=== PATIENT | female | born 1995 | race Caucasian/White ===

== ENCOUNTER 2018-08-18 12:13 | Emergency (ER) | payer BC, OTHER ==
[2018-08-18] MEDS ORDERED: INSULIN -REGULAR HUMAN 50 UNIT/0.5 ML ML ONE (12:23)
[2018-08-18] MEDS ORDERED: NA CHLORIDE 0.9% 1,000 ML ONE ×2 (12:23→13:03)
--- NOTE | 2018-08-18 12:33 | EKG ---
Test Date: 2018-08-18 Test Time: 12:30:19 General Office Clerk: MARIO MEASUREMENT RESULTS: Intervals: Rate: 108 VA: 190 QRSD: 100 QT: 362 QTc: 485 [place]: P: 60 VA: 190 QRS: 63 T: 36 INTERPRETIVE STATEMENTS: Sinus tachycardia Otherwise normal ECG No previous ECG available for comparison Electronically Signed On 08-18-18 12:32:39 CDT by Jonathan Encinas
[2018-08-18 12:41] LABS: Arterial Blood Carboxyhemoglob 0.7 % (0-1.5); Blood Gas Oxyhemoglobin 95.3 % (94-97); Blood O2 Saturation 97.3 % (92-98.5)
[2018-08-18 12:54] LABS: Absolute Lymphocytes (CBC) 4.3 K/uL (0.7-4.9); Absolute Monocytes 3.8 K/uL (0.1-1.3); Basophils % 0.3 % (0-1.3); Eosinophils % 0.4 % (0-4.4); Hematocrit 55.3 % (36.0-45.0); Lymphocytes % 11.6 % (15.3-44.8); MCH 31.2 pg (27.0-35.0); MCV 106.6 fL (80-100); MPV 9.6 fL (7.6-11.3); Monocytes % 10.1 % (3.3-12.3); RBC Red Blood Cell Count 5.19 M/uL (3.86-4.86)
[2018-08-18 12:59] LABS: Barbiturates NEGATIVE (NEGATIVE); Benzodiazepines NEGATIVE (NEGATIVE); Cocaine NEGATIVE (NEGATIVE); METHAMPHETAM NEGATIVE (NEGATIVE); Methadone NEGATIVE (NEGATIVE); Opiates NEGATIVE (NEGATIVE); Phencyclidine NEGATIVE (NEGATIVE); THC Cannibis NEGATIVE (NEGATIVE)
[2018-08-18] MEDS ORDERED: INSULIN -REGULAR HUMAN 100 UNIT in NA CHLORIDE 0.9% 100 ML IV SCH (13:00)
[2018-08-18] MEDS ORDERED: D5W 1,000 ML with NA BICARB 8.4% 150 MEQ IV SCH ×2 (13:00)
[2018-08-18 13:01] LABS: Protime INR 1.05
[2018-08-18] MEDS ORDERED: SODIUM BICARB 50 MEQ/50ML VIAL ONE (13:03)
[2018-08-18 13:10] LABS: Urine RBC <5 /HPF (NONE SEEN)
[2018-08-18 13:11] LABS: Urine Bacteria <20 /HPF (<20); Urine Culture Reflex Order REFLEXED
[2018-08-18 13:21] LABS: ALT/SGPT 16 U/L (12-78); AST/SGOT 12 U/L (15-37); Albumin 3.7 g/dL (3.4-5.0); Alkaline Phosphatase 201 U/L (45-117); BUN Blood Urea Nitrogen 18 mg/dL (7-18); Bilirubin Direct 0.1 mg/dL (0-0.2); Bilirubin Total 0.4 mg/dL (0.2-1.0); Potassium 3.5 mmol/L (3.5-5.1); Protein, Total 7.3 g/dL (6.4-8.2); Sodium Level 139 mmol/L (136-145)
[2018-08-18 13:22] LABS: Bicarbonate 4 mmol/L (21-32); Glucose Level 1200 mg/dL (74-106)
[2018-08-18 13:41] LABS: Blood Morphology Comment NOT SEEN (NOT SEEN); Platelet Estimate INCR
[2018-08-18 14:02] LABS: Urine Blood 1+ (NEG); Urine Glucose 2+ (NEG); Urine Protein 2+ (NEG)
--- NOTE | 2018-08-18 14:21 | RAD REPORT ---
EXAM DESCRIPTION: Estephania Single View08/18/2018 1:09 pm CLINICAL HISTORY: Chest pain COMPARISON: none FINDINGS: The lungs appear clear of acute infiltrate. The heart is normal size IMPRESSION: No acute abnormalities displayed
--- NOTE | 2018-08-18 14:23 | RAD REPORT ---
EXAM DESCRIPTION: CT - Head Brain Wo Cont - 08/18/2018 2:08 pm CLINICAL HISTORY: Alteration of awareness/confusion COMPARISON: None. TECHNIQUE: Computed axial tomography of the head was obtained. IV contrast was not requested. All CT scans are performed using dose optimization technique as appropriate and may include automated exposure control or mA/KV adjustment according to patient size. FINDINGS: Curvilinear area of increased density is present within the left temporal lobe suspicious for subarachnoid blood. The ventricles are normal in caliber. No extra-axial fluid collection is noted. Fluid within the sinuses/ mastoids is not seen. IMPRESSION: Small subarachnoid bleed with the left temporal lobe is suspected. Exam was discussed wi Dr. Narayanan in emergency room 2:10 p.m. 08/18/2018 When the patient's condition permits further imaging with MRI is recommended
--- NOTE | 2018-08-18 14:57 | ER ---
Nurse's Notes [facility] Name: Rosalie Parekh Age: 23 yrs Sex: Female : 1995 Arrival Date: 08/18/2018 Time: 12:15 Bed 3 Private MD: Diagnosis: Other specified diabetes mellitus with ketoacidosis without coma;Acute kidney injury;Dehydration;Altered mental status, unspecified Presentation: 08/18 12:15 Presenting complaint: EMS states: "boyfriend reported that she hasn't been eating for aa5 the last few days and today she fell down to the ground and became unresponsive and that is when he called 911". EMS reports FSBG >500. 12:15 Transition of care: patient was not received from another setting of care. Onset of aa5 symptoms was August 18, 2018. Risk Assessment: Do you want to hurt yourself or someone else? Unable to obtain. Care prior to arrival: Medication(s) given: Normal saline infusion, 200cc IV initiated. 20 GA, in the left antecubital area. 12:15 Method Of Arrival: EMS: [facility] aa5 12:15 Acuity: TANYA 2 aa5 12:30 Initial Sepsis Screen: Does the patient meet any 2 criteria? RR > 20 per min. Temp aa5 <36.0*C (96.8*F)) or > 38.3*C (100.9*F). Systolic BP < 90 mmHg. Altered Mental Status. HR > 90 bpm. Yes Does the patient have a suspected source of infection? No. Patient's initial sepsis screen is negative. LEAD TEACHER: 12:15 LMP- unknown aa5 Historical: - Allergies: 12:15 No Known Allergies; aa5 - PMHx: 12:15 None; aa5 - PSHx: 12:15 None; aa5 - Immunization history:: Adult Immunizations unknown. - Social history:: Smoking status: unknown. - Ebola Screening: : Unable to complete screening because. - Unable to obtain history due to: altered mental status. Screenin:20 Abuse screen: Unable to assess. Nutritional screening: unable to assess. Tuberculosis aa5 screening: unable to assess. Fall Risk Fall in past 12 months (25 points). IV access (20 points). Mental Status- Overestimates/Forgets Limitations (15 pts.). Total Perry Fall Scale indicates High Risk Score (45 or more points). Fall prevention measures have been instituted. Side Rails Up X 2 Placed Close to Nursing Station. Assessment: 12:15 General: Appears uncomfortable, Behavior is unresponsive. Pain: Unable to use pain aa5 scale. Patient is unresponsive. Neuro: Oriented to none Pt non-verbal at this time. Pt unable to follow commands. . Pupils are equal, dilated, and reactive to light. . Cardiovascular: Heart tones S1 S2 present Rhythm is regular. Respiratory: Airway is patent Respiratory pattern is Kussmaul Breath sounds are clear bilaterally. GI: Abdomen is round non-distended, Bowel sounds present X 4 quads. Abd is soft and non tender X 4 quads. : No signs and/or symptoms were reported regarding the genitourinary system. EENT: No signs and/or symptoms were reported regarding the EENT system. Derm: Skin is pink, warm \\T\\ dry. Musculoskeletal: Pt noted to be moving all four extremities. 12:20 Reassessment: Non-rebreather mask placed without oxygen as brown-bag effect. . aa5 12:30 Reassessment: Soft restraints applied to all four extremities per MD VO. 3+ radial aa5 pulses before and after restraints were placed, capillary refill <3 seconds before and after application, pt able to move fingers before and after application. Restraints were placed after noticing pt putting her right FA into mouth and attempting to bite it, pt was also rolling in bed attempting to get out of bed. . 12:32 Reassessment: Warm blankets and bear hugger applied per MD VO. Fluids infusing through aa5 warmer per MD as well. . 12:50 Reassessment: Pt non-verbal, not following commands, Kussmaul respirations noted. Pt aa5 attempting to remove blankets, attempting to get out of bed at this time. Bed remains in low position, side rails x 2. . 13:50 Reassessment: Pt taken to CT via stretcher, with monitor, accompanied by me,information technology internship, aa5 and utility technician. . 13:58 Reassessment: Pt back from CT scan.. aa5 14:01 Reassessment: Pt taken back to CT scan via stretcher, with monitor, accompanied by me, aa5 information technology internship, and utility technician. . 14:10 Reassessment: Pt back from CT scan. Pt attempting to sit up and attempting to pull on aa5 cords (monitor, IV tubing, Fan, etc.). Pt remains non-verbal at this time. Pt not able to follow commands. Kussmaul respirations, skin is pink/warm/dry. . 14:40 Reassessment: orthotics prosthetics technician at bedside drawing repeat glucose level . aa5 14:40 Reassessment: Pt resting in bed with eyes closed and awakens intermittently and aa5 attempts to pull cords and attempts to sit up. Pt's step-mother at bedside at this time. Skin is pink/warm/dry, Kussmaul respirations. Pt remains non-verbal and not following commands. Pt able to move all four extremities. . 15:30 Reassessment: No changes from previously documented assessment. Pt's father and aa5 step-mother at beside. Awaiting life flight for transfer. . 15:40 Reassessment: Life flight at bedside connecting pt to their monitors. . aa5 Vital Signs: 12:15 BP 88 / 60; Pulse 110; Resp 38 S; Pulse Ox 100% on R/A; aa5 12:30 BP 88 / 64; Pulse 108; Resp 36 S; Temp 89.5(C); Pulse Ox 100% on R/A; aa5 12:46 BP 87 / 52; Pulse 104; Resp 36; Temp 89.7(C); Pulse Ox 99% ; sv 13:00 BP 112 / 64; Pulse 103; Resp 33; Temp 89.6(C); Pulse Ox 99% ; sv 13:15 BP 114 / 64; Pulse 113; Resp 39 S; Temp 89.6(C); Pulse Ox 100% on R/A; aa5 13:20 BP 109 / 61; Pulse 108; Resp 34; Temp 89.9(C); Pulse Ox 99% ; sv 13:40 BP 121 / 89; Pulse 113; Resp 34 S; Temp 90.6(C); Pulse Ox 100% on R/A; aa5 14:00 BP 122 / 72; Pulse 119; Resp 34 S; Temp 91.1(C); Pulse Ox 100% on R/A; aa5 14:15 BP 105 / 78; Pulse 118; Resp 34; Temp 91.5(C); Pulse Ox 100% on R/A; aa5 14:30 BP 112 / 76; Pulse 119; Resp 30 S; Temp 92.0(C); Pulse Ox 100% on R/A; aa5 15:00 BP 111 / 73; Pulse 129; Resp 27; Temp 93.3; Pulse Ox 100% ; sv 15:10 BP 104 / 60; Pulse 123; Resp 32; Temp 93.6; Pulse Ox 99% ; sv 15:30 BP 102 / 62; Pulse 129; Resp 30 S; Temp 93.5(C); Pulse Ox 100% on R/A; aa5 Ruben Coma Score: 12:15 Eye Response: to voice(3). Verbal Response: none(1). Motor Response: withdraws from aa5 pain(4). Total: 8. 14:40 Eye Response: to voice(3). Verbal Response: none(1). Motor Response: withdraws from aa5 pain(4). Total: 8. ED Course: 12:15 Patient arrived in ED. rn 12:15 Isai Narayanan MD is Attending Physician. rn 12:20 Initial lab(s) drawn, by me, sent to lab. aa5 12:20 Patient has correct armband on for positive identification. Placed in gown. Bed in low aa5 position. Side rails up X2. bleacher operator on. Pulse ox on. NIBP on. 12:20 Arm band placed on. aa5 12:30 Fan cath inserted, using sterile technique, 16 Fr., by me, balloon inflated, to aa5 gravity drainage, Patient tolerated well. 12:37 EKG done, by diesel service technician. reviewed by Isai Narayanan MD. Initial lab(s) drawn, by ED staff, jb1 sent to lab. Inserted saline lock: 20 gauge in right antecubital area, using aseptic technique. Blood collected. 12:38 Urine collected: Fan catheter specimen, cloudy, rubina colored. jb1 13:00 Inserted saline lock: 22 gauge in right hand, using aseptic technique. IV inserted by aa5 Darrel Holliday RN. 13:00 No provider procedures requiring assistance completed. aa5 13:07 X-ray completed. Portable x-ray completed in exam room. Patient tolerated procedure ml well. 13:10 XRAY Chest (1 view) In Process Unspecified. EDMS 13:12 Notified ED physician of a critical lab result(s). lactate 5.1. hb 13:20 Notified ED physician of a critical lab result(s). SERUM GLUCOSE 1200, CO2 4. hb 13:24 Zenaida Scott, RN is Primary Nurse. aa5 13:41 CT Head Brain wo Cont In Process Unspecified. EDMS 13:46 Patient moved back from CT. sv 13:51 Notified ED physician of a critical lab result(s). SERUM GLUCOSE 1061. hb 14:52 Triage completed. aa5 15:40 One-on-one care X 205 minutes. aa5 15:53 Patient transferred, IV remains in place. aa5 Restraints: 12:30 Violent/Self Destructive Restraint: Initiated August 18, 2018 at 12:30 Monitoring: aa5 Cognition: unable to follow commands, Circulation: Within defined parameters (based on Cardiovascular assessment). Skin integrity: Within defined parameters (based on Integumentary assessment) No injuries due to Restraints noted. 12:45 Violent/Self Destructive Restraint: Monitoring: Cognition: unable to follow commands, aa5 Circulation: Within defined parameters (based on Cardiovascular assessment). Skin integrity: Within defined parameters (based on Integumentary assessment) No injuries due to Restraints noted. 13:00 Violent/Self Destructive Restraint: Monitoring: Cognition: unable to follow commands, aa5 Circulation: Within defined parameters (based on Cardiovascular assessment). Skin integrity: Within defined parameters (based on Integumentary assessment) No injuries due to Restraints noted. 13:15 Violent/Self Destructive Restraint: Monitoring: Cognition: unable to follow commands, aa5 Circulation: Within defined parameters (based on Cardiovascular assessment). Skin integrity: Within defined parameters (based on Integumentary assessment) No injuries due to Restraints noted. 13:30 Violent/Self Destructive Restraint: Monitoring: Cognition: unable to follow commands, aa5 Circulation: Within defined parameters (based on Cardiovascular assessment). Skin integrity: Within defined parameters (based on Integumentary assessment) No injuries due to Restraints noted. 13:45 Violent/Self Destructive Restraint: Monitoring: Cognition: unable to follow commands, aa5 Circulation: Within defined parameters (based on Cardiovascular assessment). Skin integrity: Within defined parameters (based on Integumentary assessment) No injuries due to Restraints noted. 14:00 Violent/Self Destructive Restraint: Monitoring: Cognition: unable to follow commands, aa5 Circulation: Within defined parameters (based on Cardiovascular assessment). Skin integrity: Within defined parameters (based on Integumentary assessment) No injuries due to Restraints noted. 14:15 Violent/Self Destructive Restraint: Monitoring: Cognition: unable to follow commands, aa5 Circulation: Within defined parameters (based on Cardiovascular assessment). Skin integrity: Within defined parameters (based on Integumentary assessment) No injuries due to Restraints noted. 14:30 Violent/Self Destructive Restraint: Monitoring: Cognition: unable to follow commands, aa5 Circulation: Within defined parameters (based on Cardiovascular assessment). Skin integrity: Within defined parameters (based on Integumentary assessment) No injuries due to Restraints noted. 14:45 Violent/Self Destructive Restraint: Monitoring: Cognition: unable to follow commands, aa5 Circulation: Within defined parameters (based on Cardiovascular assessment). Skin integrity: Within defined parameters (based on Integumentary assessment) No injuries due to Restraints noted. 15:00 Violent/Self Destructive Restraint: Monitoring: Cognition: unable to follow commands, aa5 Circulation: Within defined parameters (based on Cardiovascular assessment). Skin integrity: Within defined parameters (based on Integumentary assessment) No injuries due to Restraints noted. 15:15 Violent/Self Destructive Restraint: Monitoring: Cognition: unable to follow commands, aa5 Circulation: Within defined parameters (based on Cardiovascular assessment). Skin integrity: Within defined parameters (based on Integumentary assessment) No injuries due to Restraints noted. 15:30 Violent/Self Destructive Restraint: Monitoring: Cognition: unable to follow commands, aa5 Circulation: Within defined parameters (based on Cardiovascular assessment). Skin integrity: Within defined parameters (based on Integumentary assessment) No injuries due to Restraints noted. 15:40 Violent/Self Destructive Restraint: Monitoring: Cognition: unable to follow commands, aa5 Circulation: Within defined parameters (based on Cardiovascular assessment). Skin integrity: Within defined parameters (based on Integumentary assessment) No injuries due to Restraints noted. Administered Medications: 12:20 Drug: NS 0.9% 1000 ml Route: IV; Rate: 1000 ml; Site: left antecubital; aa 13:00 Follow up: IV Status: Completed infusion aa 12:20 Drug: Insulin Regular Human 10 units {Co-Signature: la1 (Darrel Holliday RN).} Route: IVP; aa5 Site: left antecubital; 12:20 Drug: Insulin Regular Human 10 units {Co-Signature: la1 (Darrel Holliday RN).} Route: Sub-Q; aa5 Site: right lower abdomen; 12:20 Drug: NS 0.9% 1000 ml Route: IV; Rate: 1000 ml; Site: left antecubital; aa5 13:00 Follow up: IV Status: Completed infusion aa5 12:56 Drug: Sodium Bicarbonate 1 amp Route: IVP; Site: left antecubital; aa5 13:10 Follow up: Response: No adverse reaction aa5 13:00 Drug: D5W 1000 ml, Sodium Bicarbonate 150 mEq Route: IV; Rate: 150 ml/hr; Site: left aa5 antecubital; 15:40 Follow up: IV Status: Infusion continued upon transfer aa5 13:00 Drug: NS 0.9% 1000 ml Route: IV; Rate: 1000 ml; Site: right antecubital; aa5 14:00 Follow up: IV Status: Completed infusion aa5 13:00 Drug: Insulin Drip - (Insulin Regular Human 100 units, NS 0.9% 100 ml) {Co-Signature: aa5 reinaldo (Darrel Holliday RN).} Route: IV; Rate: calculated rate; Site: right antecubital; 13:00 Follow up: Started at 7 units/hr per MD [id number] aa5 15:40 Follow up: IV Status: Infusion continued upon transfer aa5 Point of Care Testin:00 >500mg/dl aa5 Ranges: Intake: Output: 15:21 Urine: 1500ml (Fan); Total: 1500ml. aa5 15:40 Urine: 250ml (Fan); Total: 1750ml. aa5 Outcome: 14:56 ER care complete, transfer ordered by . rn 15:40 Transferred by helicopter to [facility], Transfer form completed. aa5 X-rays sent w/ patient. Note: Report given to jed Brown RN at [facility]. 15:40 Condition: stable aa5 15:40 Discharge instructions given to Pt's father Instructed on the need for transfer, Demonstrated understanding of instructions. 15:53 Patient left the ED. aa5 Signatures: Dispatcher [employer] EDMS Luca Nicole Stephanie, RN RN sv Lopez, Melissa ml Nieto, Roman, MD MD rn Calderon, Audri RN RN aa5 Miya, Darrel RN RN la1 Maribel Ni RN RN Darrel [email or web address] Corrections: (The following items were deleted from the chart) 14:53 13:16 Inserted saline lock: 22 gauge in right hand, using aseptic technique. la1 aa5 15:20 15:10 BP 104 / 60; Pulse 123bpm; Resp 32bpm; Pulse Ox 99%; Temp 96.6F; sv sv 16:25 12:50 Reassessment: Pt non-verbal, not following commands, Kussmaul respirations noted. aa5 Pt attempting to remove blankets, attempting to get out of bed at this time. Bed remains in low position, side rails x 2, call monique within reach. . aa5 16:36 12:30 Reassessment: Soft restraints applied to all four extremities per VO. Pt noted aa5 to be putting her right FA into mouth and attempting to bite it, pt rolling in bed. . aa5
--- NOTE | 2018-08-18 14:57 | EDPHYS ---
Physician Documentation [facility] Name: Rosalie Hermann Age: 23 yrs Sex: Female : 1995 Arrival Date: 08/18/2018 Time: 12:15 Bed 3 Private MD: ED Physician Isai Narayanan HPI: 08/18 12:21 This 23 yrs old Female presents to ER via Unassigned with complaints of AMS, rn high blood sugar. 12:21 The patient presents with decreased responsiveness. Onset: The symptoms/episode rn began/occurred at an unknown time. Possible causes: unknown. Associated signs and symptoms: Pertinent positives: combativeness, confusion. It is unknown whether or not the patient has had similar symptoms in the past. Per EMS, called out for decreased responsiveness and altered mental status, unknown onset, blood sugar read "high" for EMS, not sure if known diabetic, also bystander "not sure" if used any drugs. NO known trauma. . MORTAR MAN: 12:15 LMP- unknown aa5 Historical: - Allergies: 12:15 No Known Allergies; aa5 - PMHx: 12:15 None; aa5 - PSHx: 12:15 None; aa5 - Immunization history:: Adult Immunizations unknown. - Social history:: Smoking status: unknown. - Ebola Screening: : Unable to complete screening because. - Unable to obtain history due to: altered mental status. ROS: 12:21 Unable to obtain ROS due to altered mental status. rn Exam: 12:21 Constitutional: Thin female, minimally responsive, tachypneic, responds to painful rn stimuli flopping around bed. Head/Face: Normocephalic, atraumatic. Eyes: pupils 6mm, reactive, no nsytagmus ENT: dry MM, no stridor Cardiovascular: tachycardic, regular, no murmur Respiratory: mild tachypnea, clear bilaterally Abdomen/GI: soft, non-tender Skin: Warm, dry, no evidence of cellulitis. MS/ Extremity: Pulses equal, no cyanosis. Neurovascular intact. Full, normal range of motion. Equal circumference. Neuro: Somnolent, responds to painful stimuli and localizes pain, moves all 4 extremities. Vital Signs: 12:15 BP 88 / 60; Pulse 110; Resp 38 S; Pulse Ox 100% on R/A; aa5 12:30 BP 88 / 64; Pulse 108; Resp 36 S; Temp 89.5(C); Pulse Ox 100% on R/A; aa5 12:46 BP 87 / 52; Pulse 104; Resp 36; Temp 89.7(C); Pulse Ox 99% ; sv 13:00 BP 112 / 64; Pulse 103; Resp 33; Temp 89.6(C); Pulse Ox 99% ; sv 13:15 BP 114 / 64; Pulse 113; Resp 39 S; Temp 89.6(C); Pulse Ox 100% on R/A; aa5 13:20 BP 109 / 61; Pulse 108; Resp 34; Temp 89.9(C); Pulse Ox 99% ; sv 13:40 BP 121 / 89; Pulse 113; Resp 34 S; Temp 90.6(C); Pulse Ox 100% on R/A; aa5 14:00 BP 122 / 72; Pulse 119; Resp 34 S; Temp 91.1(C); Pulse Ox 100% on R/A; aa5 14:15 BP 105 / 78; Pulse 118; Resp 34; Temp 91.5(C); Pulse Ox 100% on R/A; aa5 14:30 BP 112 / 76; Pulse 119; Resp 30 S; Temp 92.0(C); Pulse Ox 100% on R/A; aa5 15:00 BP 111 / 73; Pulse 129; Resp 27; Temp 93.3; Pulse Ox 100% ; sv 15:10 BP 104 / 60; Pulse 123; Resp 32; Temp 93.6; Pulse Ox 99% ; sv 15:30 BP 102 / 62; Pulse 129; Resp 30 S; Temp 93.5(C); Pulse Ox 100% on R/A; aa5 Ruben Coma Score: 12:15 Eye Response: to voice(3). Verbal Response: none(1). Motor Response: withdraws from aa5 pain(4). Total: 8. 14:40 Eye Response: to voice(3). Verbal Response: none(1). Motor Response: withdraws from aa5 pain(4). Total: 8. MDM: 12:15 Patient medically screened. rn 13:07 ED course: Insulin drip started for suspected DKA, bicarb drip, fluids now on third rn liter, updated father.. 13:12 ED course: Significant other and family here, report 2 days of rn nausea/vomiting/diarrhea, not feeling well, and AMS began this morning. 13:52 ED course: Lp consent signed. Notified by Dr. Dorado of questionable bleed on CT head rn vs artifact, requests re-scan to be sure. . 14:14 ED course: Radiology confirms small SAH temporal region, spoke with family, will need marketing pr intern to [facility] for SAH and no ICU beds here. . 14:52 Differential Diagnosis: volume depletion, DKA, head injury, aneurysm, drug overdose. rn Data reviewed: vital signs, nurses notes, lab test result(s), EKG, radiologic studies, CT scan, plain films, and as a result, I will admit patient. Counseling: I had a detailed discussion with the patient and/or guardian regarding: the historical points, exam findings, and any diagnostic results supporting the discharge/admit diagnosis, lab results, radiology results, the need for further work-up and treatment in the hospital, the need to transfer to another facility. Response to treatment: the patient's symptoms have mildly improved after treatment, and as a result, I will admit patient. Admission orders: after a detailed discussion of the patient's condition and case, the admit orders are written by me. ED course: Pt with mild improvement, airway intact and protected, now lifts head and follows more commands. Accepted for transfer to [facility] ICU by Dr. Chavarria, elevated WBC possibly related to DKA/head bleed. Neg urine and cxr. LP initially was going to be performed to rule out meningitis but when SAH found with unclear etiology, decision made to defer LP given source of AMS can be attributed to both SAH and DKA. . 08/18 12:17 Order name: CBC with Diff; Complete Time: 13:53 rn 08/18 12:17 Order name: Basic Metabolic Panel; Complete Time: 13:53 rn 08/18 12:17 Order name: Urine Culture rn 08/18 12:17 Order name: Urine Drug Screen; Complete Time: 13:06 rn 08/18 12:17 Order name: Urine Microscopic Only; Complete Time: 13:23 rn 08/18 12:17 Order name: ABG; Complete Time: 12:54 rn 08/18 12:17 Order name: Ketone, Serum; Complete Time: 13:53 rn 08/18 12:17 Order name: Acetaminophen; Complete Time: 13:53 rn 08/18 12:17 Order name: ETOH Level; Complete Time: 13:53 rn 08/18 12:17 Order name: Hepatic Function; Complete Time: 13:53 rn 08/18 12:17 Order name: PT-INR; Complete Time: 13:06 rn 08/18 12:17 Order name: Ptt, Activated; Complete Time: 13:06 rn 08/18 12:17 Order name: Salicylate; Complete Time: 13:23 rn 08/18 12:18 Order name: Blood Culture Adult (2) rn 08/18 12:17 Order name: XRAY Chest (1 view); Complete Time: 14:30 rn 08/18 12:17 Order name: CT Head Brain wo Cont; Complete Time: 14:30 rn 08/18 12:18 Order name: Lactate; Complete Time: 13:23 rn 08/18 13:06 Order name: Urine Dipstick--Ancillary (enter results); Complete Time: 14:13 hb 08/18 13:06 Order name: Urine --Ancillary (enter results); Complete Time: 14:13 hb 08/18 13:06 Order name: Glucose; Complete Time: 13:53 hb 08/18 13:09 Order name: Flu; Complete Time: 14:47 rn 08/18 13:10 Order name: Manual Differential; Complete Time: 13:53 EDMS 08/18 14:17 Order name: glucometer results - FOR PT WITH NO ID; Complete Time: 15:00 aa5 08/18 14:18 Order name: Glucose; Complete Time: 16:57 aa5 08/18 12:17 Order name: IV Start; Complete Time: 12:38 rn 08/18 12:17 Order name: Urine Test (obtain specimen); Complete Time: 12:38 rn 08/18 12:17 Order name: Urine Dipstick-Ancillary (obtain specimen); Complete Time: 12:38 rn 08/18 12:17 Order name: Glucose Level; Complete Time: 12:38 rn 08/18 12:17 Order name: EKG; Complete Time: 12:19 rn 08/18 12:17 Order name: EKG - Nurse/Tech; Complete Time: 12:38 rn 08/18 12:17 Order name: Labs collected and sent; Complete Time: 12:38 rn 08/18 14:46 Order name: Fan: VO received at 1217 ; Complete Time: 14:47 aa5 08/18 15:08 Order name: Restrain Patient: VO received at 1230. Apply soft restraints to all four aa5 extremities.; Complete Time: 15:08 Administered Medications: 12:20 Drug: NS 0.9% 1000 ml Route: IV; Rate: 1000 ml; Site: left antecubital; aa5 13:00 Follow up: IV Status: Completed infusion aa5 12:20 Drug: Insulin Regular Human 10 units {Co-Signature: reinaldo (Darrel Holliday RN).} Route: IVP; aa5 Site: left antecubital; 12:20 Drug: Insulin Regular Human 10 units {Co-Signature: reinaldo (Darrel Holliday RN).} Route: Sub-Q; aa5 Site: right lower abdomen; 12:20 Drug: NS 0.9% 1000 ml Route: IV; Rate: 1000 ml; Site: left antecubital; aa5 13:00 Follow up: IV Status: Completed infusion aa5 12:56 Drug: Sodium Bicarbonate 1 amp Route: IVP; Site: left antecubital; aa5 13:10 Follow up: Response: No adverse reaction aa5 13:00 Drug: D5W 1000 ml, Sodium Bicarbonate 150 mEq Route: IV; Rate: 150 ml/hr; Site: left aa5 antecubital; 15:40 Follow up: IV Status: Infusion continued upon transfer aa5 13:00 Drug: NS 0.9% 1000 ml Route: IV; Rate: 1000 ml; Site: right antecubital; aa5 14:00 Follow up: IV Status: Completed infusion aa5 13:00 Drug: Insulin Drip - (Insulin Regular Human 100 units, NS 0.9% 100 ml) {Co-Signature: gorge najera (Darrel Holliday RN).} Route: IV; Rate: calculated rate; Site: right antecubital; 13:00 Follow up: Started at 7 units/hr per MD VO aa5 15:40 Follow up: IV Status: Infusion continued upon transfer aa5 Point of Care Testin:00 >500mg/dl aa Ranges: Critical Glucose Levels:Adult <50 mg/dl or >400 mg/dl <40 mg/dl or >180 mg/dl Disposition: 14:52 Critical Care:. rn Disposition: 08/18/18 14:[address] [facility]. Diagnosis are Other specified diabetes mellitus with ketoacidosis without coma, Acute kidney injury, Dehydration, Altered mental status, unspecified. - Reason for transfer: Higher level of care. - Accepting physician is Dr. Chavarria. - Condition is Serious. - Problem is new. - Symptoms have improved. Critical care time excluding procedures: 14:52 Critical care time: Bedside Care: 50 minutes, Consultation: 5 minutes, Family rn Intervention: 10 minutes. Total time: 65 minutes Signatures: Dispatcher [employer] EDMS Isai Narayanan MD MD rn Calderon, Audri, RN RN aa5 Darrel Holliday RN la1 Corrections: (The following items were deleted from the chart) 14:46 14:45 Fan ordered. aa5 aa5 15:53 14:56 08/18/2018 14:[address] [facility]. Diagnosis is aa5 Other specified diabetes mellitus with ketoacidosis without coma; Acute kidney injury; Dehydration; Altered mental status, unspecified. Reason for transfer: Higher level of care. Accepting physician is Dr. Chavarria. Condition is Serious. Problem is new. Symptoms have improved. rn
== END 2018-08-18 15:53 | disposition short-term general hospital (02) ==
LOC: ER 12:13
DX: E13.10 Other specified diabetes mellitus with ketoacidosis without coma (principal); E86.0 Dehydration; N17.9 Acute kidney failure, unspecified
CPT/HCPCS: 36415; 51702; 70450; 71045; 80048; 80076; 80307; 80320; 80329; 81003; 81015; 81025; 82010; 82805; 82947; 82962; 83605; 85025; 85610; 85730; 87040; 87086; 87088; 87205; 87804; 93005; 96372; 99285; J7030

== ENCOUNTER 2019-10-07 15:37 | Emergency (ER) | payer OTHER ==
--- OUTSIDE RECORDS SUMMARY | 2019-10-07 15:42 | XMS REPORT | Summary of Care ---
:1995 Author Organization [facility] Address [address] [place] [address] Care Team Providers Name Role Phone Pcp, Patient Does Not Have A Primary Care Provider Reason for Visit Reason Comments Assessment Encounter Details Date Type Department Care Team Description 06/08/2019 Telephone [facility] Endocrinology- Constanza Abraham MD Assessment [address] Professional Office [address] Cade [phone] [address] [place] [address] Allergies No Known Allergiesdocumented as of this encounter (statuses as of 06/09/2019) Medications Medication Sig Dispensed Refills Start Date End Date Status insulin lispro INJECT up to 10 9 mL 3 09/15/2018 Active (HUMALOG KWIKPEN UNITS SUBCUTANEOUSLY INSULIN) 100 unit/mL THREE TIMES A DAY pen WITH MEALS per injectorIndications: sliding scale Uncontrolled type 1 diabetes mellitus with hyperglycemia Insulin Glargine inject 24 Units 7.2 mL 3 09/15/2018 Active (LANTUS SOLOSTAR under the skin every U-100 INSULIN) 100 morning. unit/mL (3 mL) injectionIndications : Uncontrolled type 1 diabetes mellitus with hyperglycemia Insulin [place], Use as directed four 400 Each 09/15/2018 Active Disposable, (BD times a day ULTRA-FINE MICRO PEN NEEDLE) 32 gauge x 1/4" NdleIndications: Uncontrolled type 1 diabetes mellitus with hyperglycemia ONE TOUCH DELICA 33 Use as directed 300 Each 1 01/13/2019 Active gauge TIDAC E10.65 MiscIndications: Uncontrolled type 1 diabetes mellitus with hyperglycemia ONETOUCH VERIO IQ Use as directed TID 1 Kit 0 01/13/2019 Active METER E10.65 KitIndications: Uncontrolled type 1 diabetes mellitus with hyperglycemia ONETOUCH VERIO Use as directed TID 300 Strip 1 01/13/2019 Active stripIndications: E10.65 Uncontrolled type 1 diabetes mellitus with hyperglycemia documented as of this encounter (statuses as of 06/09/2019) Active Problems Not on filedocumented as of this encounter (statuses as of 06/09/2019) Social History Tobacco Use Types Packs/Day Years Used Date Never Smoker Smokeless Tobacco: Never Used Alcohol Use Drinks/Week oz/Week Comments No Sex Assigned at Date Recorded Not on file Job Start Date Occupation Industry Not on file Not on file Not on file Travel History Travel Start Travel End No recent travel history available. documented as of this encounter Last Filed Vital Signs Not on filedocumented in this encounter Plan of Treatment Date Type Specialty Care Team Description 10/13/2019 Office Visit Endocrinology Diabetes & Constanza Abraham MD [facility] [address] [place] [address] [phone] Health Maintenance Due Date Last Done Comments VARICELLA VACCINES (1 of 2 - 13+ 2007 2-dose series) HPV VACCINES (1 - Female 3-dose 2009 series) CHLAMYDIA SCREENING 2010 DTaP,Tdap,and Td Vaccines (1 - 2013 Tdap) PAP SMEAR 2015 INFLUENZA VACCINE 07/04/2019 PNEUMOCOCCAL 0-64 YEARS COMBINED Aged Out No longer eligible based on SERIES patient's age to complete this topic documented as of this encounter Results Not on filedocumented in this encounter Insurance Payer Benefit Plan / Group Subscriber ID Effective Dates Phone Address Type AETNA AETNA HMO [id number] 2018-Present HMO documented as of this encounter
--- OUTSIDE RECORDS SUMMARY | 2019-10-07 15:42 | XMS REPORT | Summary of Care ---
:1995 Author Organization [facility] Address [address] [place] [address] Care Team Providers Name Role Phone Pcp, Patient Does Not Have A Primary Care Provider Reason for Visit Reason Comments Erroneous encounter-disregard Encounter Details Date Type Department Care Team Description 06/08/[address] [facility] Constanza Abraham MD Uncontrolled type 1 Endocrinology- [address] [facility] diabetes mellitus with [facility] hyperglycemia (Primary Professional Office [place], [place] Dx) Building [address] [place] [address] [address] [place] (Fax) [address] Allergies No Known Allergiesdocumented as of this encounter (statuses as of 06/08/2019) Medications Medication Sig Dispensed Refills Start Date [...] type 1 diabetes mellitus with hyperglycemia Insulin [place], Use as directed four 400 Each 09/15/2018 [...] as of this encounter (statuses as of 06/08/2019) Active Problems Not on filedocumented as of this encounter (statuses as of 06/08/2019) Social History Tobacco Use Types Packs/Day Years [...] Signs Not on filedocumented in this encounter Progress Notes Constanza Abraham MD - 06/08/2019 1:30 PM CDTPatient was not seen documented in this encounter Plan of Treatment Date Type Specialty Care Team Description 10/13/2019 Office Visit Endocrinology Diabetes & Constanza Abraham MD Metabolism [facility] [place], [place] [id number] Health Maintenance Due Date Last Done Comments [...] this topic documented as of this encounter Procedures Procedure Name Priority Date/Time Associated Diagnosis Comments POCT HEMOGLOBIN A1C Routine 06/08/2019 Uncontrolled type 1 Results for this TEST diabetes mellitus with procedure are in the hyperglycemia results section. documented in this encounter Results POCT HEMOGLOBIN A1C TEST (06/08/2019) POCT HBA1C >14 4 - 6 % Specimen Blood - CAPILLARY documented in this encounter Visit Diagnoses Diagnosis Uncontrolled type 1 diabetes mellitus with hyperglycemia - Primary documented in this encounter documented as of this encounter
--- OUTSIDE RECORDS SUMMARY | 2019-10-07 15:42 | XMS REPORT | Summary of Care ---
:1995 Author Organization [facility] Address [address] [place] [address] Care Team Providers Name Role Phone Pcp, Patient Does Not Have A Primary Care Provider Reason for Visit Reason Comments Refill Request Encounter Details Date Type Department Care Team Description 06/25/2019 Telephone [facility] Endocrinology- Constanza Abraham MD Refill Request [address] Professional Office [address] [phone] [place] [address] [address] [place] [address] Allergies No Known Allergiesdocumented as of this encounter (statuses as of 06/27/2019) Medications Medication Sig Dispensed Refills Start End Date Status Date insulin lispro INJECT up to 10 9 mL 3 Active (HUMALOG KWIKPEN UNITS 8 INSULIN) 100 SUBCUTANEOUSLY unit/mL pen THREE TIMES A DAY injectorIndication WITH MEALS per s: Uncontrolled sliding scale type 1 diabetes mellitus with hyperglycemia Insulin [place], Use as directed 400 Each 1 Active Disposable, (BD four times a day 8 ULTRA-FINE MICRO PEN NEEDLE) 32 gauge x 1/4" NdleIndications: Uncontrolled type 1 diabetes mellitus with hyperglycemia ONE TOUCH DELICA Use as directed 300 Each 1 Active 33 gauge TIDAC E10.65 9 MiscIndications: Uncontrolled type 1 diabetes mellitus with hyperglycemia ONETOUCH VERIO IQ Use as directed TID 1 Kit 0 Active METER E10.65 9 KitIndications: Uncontrolled type 1 diabetes mellitus with hyperglycemia ONETOUCH VERIO Use as directed TID 300 Strip 1 Active stripIndications: E10.65 9 Uncontrolled type 1 diabetes mellitus with hyperglycemia LANTUS SOLOSTAR inject 22 Units 15 mL 3 Active U-100 INSULIN 100 under the skin 9 unit/mL (3 mL) every morning. injectionIndicatio ns: Uncontrolled type 1 diabetes mellitus with hyperglycemia Insulin Glargine inject 24 Units 7.2 mL 3 06/25/20 Discontinued (LANTUS SOLOSTAR under the skin 8 19 U-100 INSULIN) 100 every morning. unit/mL (3 mL) injectionIndicatio ns: Uncontrolled type 1 diabetes mellitus with hyperglycemia documented as of this encounter (statuses as of 06/27/2019) Active Problems Not on filedocumented as of this encounter (statuses as of 06/27/2019) Social History Tobacco Use Types Packs/Day Years [...] Description 10/13/2019 Office Visit Endocrinology Diabetes & AbrahamConstanza MD [address] [id number] Health Maintenance Due Date Last Done Comments VARICELLA VACCINES (1 of 2 - 13+ 2007 2-dose series) HPV VACCINES (1 - Female 3-dose 2009 series) CHLAMYDIA SCREENING 2010 DTaP,Tdap,and Td Vaccines (1 - 2013 Tdap) PAP SMEAR 2015 INFLUENZA VACCINE (#1) 2019 PNEUMOCOCCAL 0-64 YEARS COMBINED Aged Out No longer eligible based on SERIES patient's age to complete this topic documented as of this encounter Results Not on filedocumented in this encounter Visit Diagnoses Diagnosis Uncontrolled type 1 diabetes mellitus with hyperglycemia documented in this encounter Insurance Payer Benefit Plan / Group Subscriber ID Effective Dates Phone Address Type AETNA AETNA HMO [id number] 2018-Present HMO documented as of this encounter
--- OUTSIDE RECORDS SUMMARY | 2019-10-07 15:42 | XMS REPORT | Summary of Care ---
:1995 Author Organization [facility] Address [address] [place] [address] Care Team Providers Name Role Phone Pcp, Patient Does Not Have A Primary Care Provider Reason for Visit Reason Comments Refill Request Encounter Details Date Type Department Care Team Description 06/25/2019 Telephone [facility] Endocrinology- Constanza Abraham MD Refill Request [address] Professional Office [address] [phone] [place] [address] [address] [place] [address] Allergies No Known Allergiesdocumented as of this encounter (statuses as of 06/28/2019) Medications Medication Sig Dispensed Refills Start End Date Status Date insulin lispro INJECT up to 10 9 mL 3 Active (HUMALOG KWIKPEN UNITS 8 INSULIN) 100 SUBCUTANEOUSLY unit/mL pen THREE TIMES A DAY injectorIndication WITH MEALS per s: Uncontrolled sliding scale type 1 diabetes mellitus with hyperglycemia Insulin [place], Use as directed 400 Each 1 Active [...] as of this encounter (statuses as of 06/28/2019) Active Problems Not on filedocumented as of this encounter (statuses as of 06/28/2019) Social History Tobacco Use Types Packs/Day Years [...] Office Visit Endocrinology Diabetes & AbrahamConstanza MD [address] [id number] Health Maintenance Due Date Last Done Comments [...] Dates Phone Address Type AETNA AETNA HMO [id number] 2018-Present HMO documented as of this encounter
--- OUTSIDE RECORDS SUMMARY | 2019-10-07 15:42 | XMS REPORT | Summary of Care ---
:1995 Author Organization [facility] Address [address] [place] [address] Care Team Providers Name Role Phone Pcp, Patient Does Not Have A Primary Care Provider Reason for Visit Reason Comments Erroneous encounter-disregard Encounter Details Date Type Department Care Team Description 06/08/2019 Office Visit [facility] Constanza Abraham MD Uncontrolled type 1 Endocrinology- [address] [facility] diabetes mellitus with [facility] hyperglycemia (Primary Professional Office [place], [place] Dx) Building [address] [place] [address] [address] [place], [place] (Fax) [phone] Allergies No Known Allergiesdocumented [...] type 1 diabetes mellitus with hyperglycemia Insulin [place], Use as directed four 400 Each 09/15/2018 [...] Endocrinology Diabetes & Constanza Abraham MD Metabolism [facility] [place], [place] [address] Health Maintenance Due Date Last Done Comments [...]
--- OUTSIDE RECORDS SUMMARY | 2019-10-07 15:42 | XMS REPORT | Summary of Care ---
:1995 Author Organization [facility] Address [address] [place] [address] Care Team Providers Name Role Phone Pcp, Patient Does Not Have A Primary Care Provider Encounter Details Date Type Department Care Team Description 06/08/2019 Orders Only [facility] Doctor Unassigned, No [address] [facility] [place] [address] [address] [place] [address] Allergies No Known Allergiesdocumented as of this [...] type 1 diabetes mellitus with hyperglycemia Insulin [place], Use as directed four 400 Each 1 09/15/2018 Active Disposable, (BD times a day [...] Treatment Date Type Specialty Care Team Description 06/08/2019 Office Visit Endocrinology Diabetes & Constanza Abraham MD [address] [address] [phone] Health Maintenance Due Date Last Done Comments [...] Procedure Name Priority Date/Time Associated Diagnosis Comments NO SHOW OR MISSED Routine 06/08/2019 9:11 AM APPOINTMENT POLICY CDT ACKNOWLEDGEMENT documented in this encounter Results Not on filedocumented in this encounter Insurance Payer Benefit Plan / Group Subscriber ID Effective Dates Phone Address Type AETNA AETNA HMO [id number] 2018-Present HMO documented as of this encounter
--- OUTSIDE RECORDS SUMMARY | 2019-10-07 15:42 | XMS REPORT ---
:1995 [facility] Address [address] [place] [address] Care Team Providers Name Role Phone CASIE BRUNO Unavailable Unavailable Problems This patient has no known problems. Allergies, Adverse Reactions, Alerts This patient has no known allergies or adverse reactions. Medications This patient has no known medications. Results Test Description Test Time Test Comments Text Results Atomic Results Result Comments ISLET CELL AB SCR 2018-08-25 14:36:00 Test Item Value Reference Range Comments ISLET CELL AB AUTOVERIFICATION (test Refer to individual Islet Cell Ab tqek=9670) and/or Islet Cell Ab Titer results. BLOOD [id number] 00:00:00 Test Item Value Reference Range Comments CULTURE (BEAKER) (test vqhl=2723) No growth in 5 days BLOOD [id number] 00:00:00 Test Item Value Reference Range Comments CULTURE (BEAKER) (test cian=7779) No growth in 5 days POCT-GLUCOSE [id number] 12:04:00 Test Item Value Reference Range Comments POC-GLUCOSE METER (BEAKER) 178 mg/dL 70-110 TESTED AT [facility] [address] [facility] (test ncse=8085) [facility] [address] POCT-GLUCOSE [id number] 07:46:00 Test Item Value Reference Range Comments POC-GLUCOSE METER (BEAKER) 210 mg/dL 70-110 TESTED AT [facility] [address] [facility] (test uabv=3551) [facility] [address] CBC (HEMOGRAM ONLY)2018-08-23 06:39:00 Test Item Value Reference Range Comments WHITE BLOOD CELL COUNT (BEAKER) (test qixu=226) 4.7 K/ L 3.5-10.5 RED BLOOD CELL COUNT (BEAKER) (test xhye=936) 4.38 M/ L 3.93-5.22 HEMOGLOBIN (BEAKER) (test wbuk=811) 13.3 GM/DL 11.2-15.7 HEMATOCRIT (BEAKER) (test topz=021) 40.2 % 34.1-44.9 MEAN CORPUSCULAR VOLUME (BEAKER) (test zhwv=128) 91.8 fL 79.4-94.8 MEAN CORPUSCULAR HEMOGLOBIN (BEAKER) (test 30.4 pg 25.6-32.2 ijuv=821) MEAN CORPUSCULAR HEMOGLOBIN CONC (BEAKER) (test 33.1 GM/DL 32.2-35.5 fgge=467) RED CELL DISTRIBUTION WIDTH (BEAKER) (test 12.9 % 11.7-14.4 yjjv=105) PLATELET COUNT (BEAKER) (test mhip=429) 186 K/CU MM 150-450 MEAN PLATELET VOLUME (BEAKER) (test odey=259) 10.6 fL 9.4-12.3 NUCLEATED RED BLOOD CELLS (BEAKER) (test 0 /100 WBC 0-0 eova=157) POCT-GLUCOSE [id number] 22:06:00 Test Item Value Reference Range Comments POC-GLUCOSE METER (BEAKER) 157 mg/dL 70-110 TESTED AT [address] (test cifs=1012) [place] [address] POCT-GLUCOSE [id number] 17:54:00 Test Item Value Reference Range Comments POC-GLUCOSE METER (BEAKER) 223 mg/dL 70-110 TESTED AT [address] (test vqxa=4579) [place] [address] POCT-GLUCOSE [id number] 12:06:00 Test Item Value Reference Range Comments POC-GLUCOSE METER (BEAKER) 227 mg/dL 70-110 TESTED AT [address] (test jmes=3699) [place] [address] POCT-GLUCOSE [id number] 07:46:00 Test Item Value Reference Range Comments POC-GLUCOSE METER (BEAKER) 237 mg/dL 70-110 TESTED AT [address] (test hwst=8634) [place] [address] CBC (HEMOGRAM ONLY)2018-08-22 07:12:00 Test Item Value Reference Range Comments WHITE BLOOD CELL COUNT (BEAKER) (test enru=178) 6.1 K/ L 3.5-10.5 RED BLOOD CELL COUNT (BEAKER) (test cemn=169) 4.62 M/ L 3.93-5.22 HEMOGLOBIN (BEAKER) (test cwxy=609) 14.1 GM/DL 11.2-15.7 HEMATOCRIT (BEAKER) (test sovs=522) 41.9 % 34.1-44.9 MEAN CORPUSCULAR VOLUME (BEAKER) (test wsjq=761) 90.7 fL 79.4-94.8 MEAN CORPUSCULAR HEMOGLOBIN (BEAKER) (test 30.5 pg 25.6-32.2 decj=423) MEAN CORPUSCULAR HEMOGLOBIN CONC (BEAKER) (test 33.7 GM/DL 32.2-35.5 ryna=847) RED CELL DISTRIBUTION WIDTH (BEAKER) (test 13.5 % 11.7-14.4 fokl=586) PLATELET COUNT (BEAKER) (test igun=948) 220 K/CU MM 150-450 MEAN PLATELET VOLUME (BEAKER) (test jqlr=162) 10.6 fL 9.4-12.3 NUCLEATED RED BLOOD CELLS (BEAKER) (test 0 /100 WBC 0-0 gadf=613) POCT-GLUCOSE [id number] 21:37:00 Test Item Value Reference Range Comments POC-GLUCOSE METER (BEAKER) 264 mg/dL 70-110 TESTED AT [address] (test vduy=1046) [place] [id number] POCT-GLUCOSE [id number] 17:52:00 Test Item Value Reference Range Comments POC-GLUCOSE METER (BEAKER) 273 mg/dL 70-110 TESTED AT [address] (test gzii=4412) [place] [id number] POCT-GLUCOSE [id number] 11:57:00 Test Item Value Reference Range Comments POC-GLUCOSE METER (BEAKER) 316 mg/dL 70-110 Notified MURTAZA JOHANSEN/TESTED AT [facility] (test jxxm=1798) [address] [place], [place] [id number] POCT-GLUCOSE [id number] 07:58:00 Test Item Value Reference Range Comments POC-GLUCOSE METER (BEAKER) 246 mg/dL 70-110 TESTED AT [address] (test rkqd=7425) [place] [address] [id number] 07:27:00 Test Item Value Reference Range Comments PHOSPHORUS (BEAKER) (test xbce=729) 3.3 mg/dL 2.3-4.7 [id number] 07:27:00 Test Item Value Reference Range Comments MAGNESIUM (BEAKER) (test fhjn=671) 2.1 mg/dL 1.6-2.6 COMPREHENSIVE METABOLIC [id number] 07:27:00 Test Item Value Reference Range Comments TOTAL PROTEIN (BEAKER) 5.4 gm/dL 6.0-8.3 (test pdii=996) ALBUMIN (BEAKER) (test 3.1 g/dL 3.5-5.0 wqpg=7171) ALKALINE PHOSPHATASE 106 U/L 40-150 (BEAKER) (test nsrm=622) BILIRUBIN TOTAL (BEAKER) 0.8 mg/dL 0.2-1.2 (test zuuy=155) SODIUM (BEAKER) (test 141 meq/L 136-145 solb=199) POTASSIUM (BEAKER) (test 4.2 meq/L 3.5-5.1 vvna=502) CHLORIDE (BEAKER) (test 108 meq/L 98-107 ztss=320) CO2 (BEAKER) (test 21 meq/L 22-29 lvlz=888) BLOOD UREA NITROGEN 6 mg/dL 7-21 (BEAKER) (test irkd=793) CREATININE (BEAKER) (test 0.69 mg/dL 0.57-1.25 tygf=145) GLUCOSE RANDOM (BEAKER) 260 mg/dL 70-105 (test amml=802) CALCIUM (BEAKER) (test 8.6 mg/dL 8.4-10.2 qvdv=459) AST (SGOT) (BEAKER) (test 13 U/L 5-34 sqlj=770) ALT (SGPT) (BEAKER) (test 11 U/L 6-55 yhpw=142) EGFR (BEAKER) (test 105 mL/min/1.73 sq ESTIMATED GFR IS NOT mflq=7156) m ACCURATE CREATININE CLEARANCE IN PREDICTING GLOMERULAR FILTRATION RATE. ESTIMATED GFR IS NOT APPLICABLE FOR DIALYSIS PATIENTS. CALCIUM, [id number] 07:03:00 Test Item Value Reference Range Comments CALCIUM IONIZED (BEAKER) (test ypju=950) 1.12 mmol/L 1.12-1.27 PH, BLOOD (BEAKER) (test gxkh=4677) 7.46 CBC W/PLT COUNT & AUTO [id number] 06:38:00 Test Item Value Reference Range Comments WHITE BLOOD CELL COUNT (BEAKER) (test acqq=619) 6.8 K/ L 3.5-10.5 RED BLOOD CELL COUNT (BEAKER) (test rfxz=833) 3.92 M/ L 3.93-5.22 HEMOGLOBIN (BEAKER) (test wvzz=249) 11.9 GM/DL 11.2-15.7 HEMATOCRIT (BEAKER) (test czjf=616) 34.9 % 34.1-44.9 MEAN CORPUSCULAR VOLUME (BEAKER) (test srkf=364) 89.0 fL 79.4-94.8 MEAN CORPUSCULAR HEMOGLOBIN (BEAKER) (test 30.4 pg 25.6-32.2 cynf=937) MEAN CORPUSCULAR HEMOGLOBIN CONC (BEAKER) (test 34.1 GM/DL 32.2-35.5 yrps=821) RED CELL DISTRIBUTION WIDTH (BEAKER) (test 14.4 % 11.7-14.4 incr=822) PLATELET COUNT (BEAKER) (test utqu=743) 198 K/CU MM 150-450 MEAN PLATELET VOLUME (BEAKER) (test qhqr=673) 10.7 fL 9.4-12.3 NUCLEATED RED BLOOD CELLS (BEAKER) (test 0 /100 WBC 0-0 szlk=244) NEUTROPHILS RELATIVE PERCENT (BEAKER) (test 51 % idbk=284) LYMPHOCYTES RELATIVE PERCENT (BEAKER) (test 39 % cvgt=581) MONOCYTES RELATIVE PERCENT (BEAKER) (test 9 % xkrc=303) EOSINOPHILS RELATIVE PERCENT (BEAKER) (test 1 % rpdf=408) BASOPHILS RELATIVE PERCENT (BEAKER) (test 0 % srdk=182) NEUTROPHILS ABSOLUTE COUNT (BEAKER) (test 3.42 K/ L 1.56-6.13 ddvq=625) LYMPHOCYTES ABSOLUTE COUNT (BEAKER) (test 2.62 K/ L 1.18-3.74 pmuh=596) MONOCYTES ABSOLUTE COUNT (BEAKER) (test 0.58 K/ L 0.24-0.36 ghtd=589) EOSINOPHILS ABSOLUTE COUNT (BEAKER) (test 0.09 K/ L 0.04-0.36 mhsl=805) BASOPHILS ABSOLUTE COUNT (BEAKER) (test 0.02 K/ L 0.01-0.08 lgcm=943) IMMATURE GRANULOCYTES-RELATIVE PERCENT (BEAKER) 0 % 0-1 (test kmoe=5303) POCT-GLUCOSE [id number] 22:26:00 Test Item Value Reference Range Comments POC-GLUCOSE METER (BEAKER) 325 mg/dL 70-110 Notified MURTAZA JOHANSEN/TESTED AT [facility] (test hljj=9589) [address] [facility] [address] POCT-GLUCOSE [id number] 21:46:00 Test Item Value Reference Range Comments POC-GLUCOSE METER (BEAKER) 312 mg/dL 70-110 TESTED AT [facility] [address] [facility] (test snoc=6848) [facility] [address] BASIC METABOLIC [id number] 21:39:00 Test Item Value Reference Range Comments SODIUM (BEAKER) (test 140 meq/L 136-145 ixyz=424) POTASSIUM (BEAKER) (test 4.5 meq/L 3.5-5.1 Specimen moderately gtnw=172) hemolyzed CHLORIDE (BEAKER) (test 110 meq/L 98-107 ubdd=709) CO2 (BEAKER) (test 20 meq/L 22-29 kgrt=334) BLOOD UREA NITROGEN 6 mg/dL 7-21 (BEAKER) (test lnaz=698) CREATININE (BEAKER) (test 0.79 mg/dL 0.57-1.25 Specimen moderately vkmu=151) hemolyzed GLUCOSE RANDOM (BEAKER) 287 mg/dL 70-105 (test ilax=268) CALCIUM (BEAKER) (test 8.6 mg/dL 8.4-10.2 wbpi=589) EGFR (BEAKER) (test 89 mL/min/1.73 sq m ESTIMATED GFR IS NOT tmxu=0710) ACCURATE CREATININE CLEARANCE IN PREDICTING GLOMERULAR FILTRATION RATE. ESTIMATED GFR IS NOT APPLICABLE FOR DIALYSIS PATIENTS. [id number] 19:06:00 Test Item Value Reference Range Comments PHOSPHORUS (BEAKER) (test hptz=170) 3.3 mg/dL 2.3-4.7 [id number] 19:06:00 Test Item Value Reference Range Comments MAGNESIUM (BEAKER) (test djeu=594) 2.2 mg/dL 1.6-2.6 [id number] 17:17:00 Test Item Value Reference Range Comments PHOSPHORUS (BEAKER) (test ibrb=273) 3.3 mg/dL 2.3-4.7 [id number] 17:17:00 Test Item Value Reference Range Comments MAGNESIUM (BEAKER) (test koyr=434) 2.3 mg/dL 1.6-2.6 BASIC METABOLIC [id number] 17:17:00 Test Item Value Reference Range Comments SODIUM (BEAKER) (test 146 meq/L 136-145 mdox=938) POTASSIUM (BEAKER) (test 3.5 meq/L 3.5-5.1 rprn=042) CHLORIDE (BEAKER) (test 115 meq/L 98-107 pzgl=082) CO2 (BEAKER) (test 22 meq/L 22-29 pqbs=691) BLOOD UREA NITROGEN 6 mg/dL 7-21 (BEAKER) (test qgih=633) CREATININE (BEAKER) (test 0.66 mg/dL 0.57-1.25 iqtu=621) GLUCOSE RANDOM (BEAKER) 77 mg/dL 70-105 (test qekg=527) CALCIUM (BEAKER) (test 8.9 mg/dL 8.4-10.2 wxfv=296) EGFR (BEAKER) (test 110 mL/min/1.73 sq m ESTIMATED GFR IS NOT bgem=8809) ACCURATE CREATININE CLEARANCE IN PREDICTING GLOMERULAR FILTRATION RATE. ESTIMATED GFR IS NOT APPLICABLE FOR DIALYSIS PATIENTS. POCT-GLUCOSE [id number] 17:15:00 Test Item Value Reference Range Comments POC-GLUCOSE METER (BEAKER) 86 mg/dL 70-110 TESTED AT [address] (test xdge=0344) [facility] [address] POCT-GLUCOSE [id number] 15:29:00 Test Item Value Reference Range Comments POC-GLUCOSE METER (BEAKER) 176 mg/dL 70-110 TESTED AT [address] (test fvhd=6114) [facility] [address] POCT-GLUCOSE [id number] 14:05:00 Test Item Value Reference Range Comments POC-GLUCOSE METER (BEAKER) 198 mg/dL 70-110 TESTED AT [address] (test uyyv=9723) [facility] [address] POCT-GLUCOSE [id number] 13:02:00 Test Item Value Reference Range Comments POC-GLUCOSE METER (BEAKER) 148 mg/dL 70-110 TESTED AT [address] (test jctg=7757) [facility] [address] POCT-GLUCOSE [id number] 12:23:00 Test Item Value Reference Range Comments POC-GLUCOSE METER (BEAKER) 170 mg/dL 70-110 TESTED AT [address] (test twgn=4224) [facility] [address] [id number] 11:33:00 Test Item Value Reference Range Comments PHOSPHORUS (BEAKER) (test xpgm=689) 3.1 mg/dL 2.3-4.7 [id number] 11:33:00 Test Item Value Reference Range Comments MAGNESIUM (BEAKER) (test nwez=192) 1.8 mg/dL 1.6-2.6 BASIC METABOLIC [id number] 11:33:00 Test Item Value Reference Range Comments SODIUM (BEAKER) (test 147 meq/L 136-145 oavk=450) POTASSIUM (BEAKER) (test 3.5 meq/L 3.5-5.1 zjdp=596) CHLORIDE (BEAKER) (test 117 meq/L 98-107 iagt=215) CO2 (BEAKER) (test 21 meq/L 22-29 ykdq=572) BLOOD UREA NITROGEN 6 mg/dL 7-21 (BEAKER) (test yhjq=738) CREATININE (BEAKER) (test 0.74 mg/dL 0.57-1.25 cjqq=131) GLUCOSE RANDOM (BEAKER) 209 mg/dL 70-105 (test cipv=167) CALCIUM (BEAKER) (test 8.9 mg/dL 8.4-10.2 czqn=043) EGFR (BEAKER) (test 96 mL/min/1.73 sq m ESTIMATED GFR IS NOT relq=0160) ACCURATE CREATININE CLEARANCE IN PREDICTING GLOMERULAR FILTRATION RATE. ESTIMATED GFR IS NOT APPLICABLE FOR DIALYSIS PATIENTS. KETONE, [id number] 11:26:00 Test Item Value Reference Range Comments KETONES, BLOOD (BEAKER) (test cxva=9546) 1.4 mmol/L <0.4 POCT-GLUCOSE [id number] 11:05:00 Test Item Value Reference Range Comments POC-GLUCOSE METER (BEAKER) 206 mg/dL 70-110 TESTED AT [address] (test ydbc=7212) [facility] [address] POCT-GLUCOSE [id number] 10:15:00 Test Item Value Reference Range Comments POC-GLUCOSE METER (BEAKER) 245 mg/dL 70-110 TESTED AT [address] (test fjcp=0006) [facility] [address] POCT-GLUCOSE [id number] 09:02:00 Test Item Value Reference Range Comments POC-GLUCOSE METER (BEAKER) 205 mg/dL 70-110 TESTED AT [address] (test ejzl=4062) [facility] [address] POCT-GLUCOSE [id number] 07:54:00 Test Item Value Reference Range Comments POC-GLUCOSE METER (BEAKER) 206 mg/dL 70-110 TESTED AT [address] (test hnoa=0300) [facility] [address] POCT-GLUCOSE [id number] 07:54:00 Test Item Value Reference Range Comments POC-GLUCOSE METER (BEAKER) 217 mg/dL 70-110 TESTED AT [address] (test ojlp=7931) [facility] [address] KETONE, [id number] 07:25:00 Test Item Value Reference Range Comments KETONES, BLOOD (BEAKER) (test uiqx=9067) 4.3 mmol/L <0.4 [id number] 07:00:00 Test Item Value Reference Range Comments PHOSPHORUS (BEAKER) (test szko=476) 2.5 mg/dL 2.3-4.7 [id number] 07:00:00 Test Item Value Reference Range Comments MAGNESIUM (BEAKER) (test ujdi=734) 2.0 mg/dL 1.6-2.6 BASIC METABOLIC [id number] 07:00:00 Test Item Value Reference Range Comments SODIUM (BEAKER) (test 148 meq/L 136-145 kmhk=227) POTASSIUM (BEAKER) (test 3.5 meq/L 3.5-5.1 ytgu=291) CHLORIDE (BEAKER) (test 119 meq/L 98-107 otwc=082) CO2 (BEAKER) (test 18 meq/L 22-29 fezr=875) BLOOD UREA NITROGEN 7 mg/dL 7-21 (BEAKER) (test tagi=431) CREATININE (BEAKER) (test 0.79 mg/dL 0.57-1.25 xlow=064) GLUCOSE RANDOM (BEAKER) 208 mg/dL 70-105 (test ennl=072) CALCIUM (BEAKER) (test 8.9 mg/dL 8.4-10.2 nlih=596) EGFR (BEAKER) (test 89 mL/min/1.73 sq m ESTIMATED GFR IS NOT ikei=7801) ACCURATE CREATININE CLEARANCE IN PREDICTING GLOMERULAR FILTRATION RATE. ESTIMATED GFR IS NOT APPLICABLE FOR DIALYSIS PATIENTS. POCT-GLUCOSE [id number] 06:13:00 Test Item Value Reference Range Comments POC-GLUCOSE METER (BEAKER) 223 mg/dL 70-110 TESTED AT [address] (test uygo=8183) [place] [address] POCT-GLUCOSE [id number] 05:20:00 Test Item Value Reference Range Comments POC-GLUCOSE METER (BEAKER) 224 mg/dL 70-110 TESTED AT [address] (test btkj=1796) [place] [address] POCT-GLUCOSE [id number] 04:08:00 Test Item Value Reference Range Comments POC-GLUCOSE METER (BEAKER) 165 mg/dL 70-110 TESTED AT [address] (test ajex=0063) [place] [address] POCT-GLUCOSE [id number] 03:25:00 Test Item Value Reference Range Comments POC-GLUCOSE METER (BEAKER) 130 mg/dL 70-110 TESTED AT [address] (test ajto=8111) [place] [address] [id number] 02:50:00 Test Item Value Reference Range Comments PROCALCITONIN (BEAKER) (test rovn=1319) 2.96 ng/mL <0.05 SEPSIS RISK (ng/mL)Low: 0.05-0.50Intermediate: 0.51-2.00High: & gt;=2.01KETONE, [id number] 02:15:00 Test Item Value Reference Range Comments KETONES, BLOOD (BEAKER) (test dfyg=0291) 3.1 mmol/L <0.4 POCT-GLUCOSE [id number] 02:13:00 Test Item Value Reference Range Comments POC-GLUCOSE METER (BEAKER) 153 mg/dL 70-110 [address] (test mjqz=6075) [facility] [address] [id number] 02:01:00 Test Item Value Reference Range Comments PHOSPHORUS (BEAKER) (test ycyw=865) 2.4 mg/dL 2.3-4.7 [id number] 02:01:00 Test Item Value Reference Range Comments MAGNESIUM (BEAKER) (test kuqf=110) 2.1 mg/dL 1.6-2.6 BASIC METABOLIC [id number] 02:01:00 Test Item Value Reference Range Comments SODIUM (BEAKER) (test 146 meq/L 136-145 hymn=177) POTASSIUM (BEAKER) (test 4.1 meq/L 3.5-5.1 tgbw=022) CHLORIDE (BEAKER) (test 118 meq/L 98-107 zknu=087) CO2 (BEAKER) (test 19 meq/L 22-29 gtze=547) BLOOD UREA NITROGEN 7 mg/dL 7-21 (BEAKER) (test mijs=618) CREATININE (BEAKER) (test 0.80 mg/dL 0.57-1.25 inmu=661) GLUCOSE RANDOM (BEAKER) 147 mg/dL 70-105 (test gcrb=121) CALCIUM (BEAKER) (test 8.9 mg/dL 8.4-10.2 msjr=550) EGFR (BEAKER) (test 88 mL/min/1.73 sq m ESTIMATED GFR IS NOT luuh=9264) ACCURATE CREATININE CLEARANCE IN PREDICTING GLOMERULAR FILTRATION RATE. ESTIMATED GFR IS NOT APPLICABLE FOR DIALYSIS PATIENTS. [id number] 02:01:00 Test Item Value Reference Range Comments AMYLASE (BEAKER) (test faxe=874) 129 U/L 25-125 [id number] 02:01:00 Test Item Value Reference Range Comments LIPASE (BEAKER) (test oiwh=141) 47 U/L 8-78 CBC (HEMOGRAM ONLY)2018-08-20 01:26:00 Test Item Value Reference Range Comments WHITE BLOOD CELL COUNT (BEAKER) (test ried=228) 15.5 K/ L 3.5-10.5 RED BLOOD CELL COUNT (BEAKER) (test dcco=565) 3.92 M/ L 3.93-5.22 HEMOGLOBIN (BEAKER) (test zuna=803) 12.0 GM/DL 11.2-15.7 HEMATOCRIT (BEAKER) (test tsfo=276) 33.8 % 34.1-44.9 MEAN CORPUSCULAR VOLUME (BEAKER) (test tkti=274) 86.2 fL 79.4-94.8 MEAN CORPUSCULAR HEMOGLOBIN (BEAKER) (test 30.6 pg 25.6-32.2 ylnb=154) MEAN CORPUSCULAR HEMOGLOBIN CONC (BEAKER) (test 35.5 GM/DL 32.2-35.5 qwns=343) RED CELL DISTRIBUTION WIDTH (BEAKER) (test 14.2 % 11.7-14.4 zzra=863) PLATELET COUNT (BEAKER) (test dujo=231) 244 K/CU MM 150-450 MEAN PLATELET VOLUME (BEAKER) (test vmsl=421) 9.8 fL 9.4-12.3 NUCLEATED RED BLOOD CELLS (BEAKER) (test 0 /100 WBC 0-0 jhqf=042) POCT-GLUCOSE [id number] 01:05:00 Test Item Value Reference Range Comments POC-GLUCOSE METER (BEAKER) 171 mg/dL 70-110 TESTED AT [address] (test xusb=7875) [place] [address] POCT-GLUCOSE [id number] 00:32:00 Test Item Value Reference Range Comments POC-GLUCOSE METER (BEAKER) 171 mg/dL 70-110 TESTED AT [address] (test bnlw=0019) [place] [id number] POCT-GLUCOSE [id number] 23:15:00 Test Item Value Reference Range Comments POC-GLUCOSE METER (BEAKER) 177 mg/dL 70-110 TESTED AT [address] (test gclb=8876) [place] [address] POCT-GLUCOSE [id number] 22:16:00 Test Item Value Reference Range Comments POC-GLUCOSE METER (BEAKER) 170 mg/dL 70-110 TESTED AT [address] (test uwjb=5784) [place] [address] POCT-GLUCOSE [id number] 22:16:00 Test Item Value Reference Range Comments POC-GLUCOSE METER (BEAKER) 191 mg/dL 70-110 TESTED AT [address] (test cooc=6427) [place] [address] KETONE, [id number] 20:49:00 Test Item Value Reference Range Comments KETONES, BLOOD (BEAKER) (test nthr=6658) 3.2 mmol/L <0.4 [id number] 20:46:00 Test Item Value Reference Range Comments PHOSPHORUS (BEAKER) (test eruw=999) 2.2 mg/dL 2.3-4.7 [id number] 20:46:00 Test Item Value Reference Range Comments MAGNESIUM (BEAKER) (test lpqx=775) 2.2 mg/dL 1.6-2.6 BASIC METABOLIC [id number] 20:46:00 Test Item Value Reference Range Comments SODIUM (BEAKER) (test 146 meq/L 136-145 incm=636) POTASSIUM (BEAKER) (test 3.3 meq/L 3.5-5.1 czvu=684) CHLORIDE (BEAKER) (test 118 meq/L 98-107 dmvd=056) CO2 (BEAKER) (test 17 meq/L 22-29 duqd=964) BLOOD UREA NITROGEN 8 mg/dL 7-21 (BEAKER) (test vxyc=219) CREATININE (BEAKER) (test 0.93 mg/dL 0.57-1.25 gsbn=552) GLUCOSE RANDOM (BEAKER) 189 mg/dL 70-105 (test fedr=578) CALCIUM (BEAKER) (test 8.7 mg/dL 8.4-10.2 zezh=116) EGFR (BEAKER) (test 74 mL/min/1.73 sq m ESTIMATED GFR IS NOT pitb=7761) ACCURATE CREATININE CLEARANCE IN PREDICTING GLOMERULAR FILTRATION RATE. ESTIMATED GFR IS NOT APPLICABLE FOR DIALYSIS PATIENTS. BLOOD GAS, [id number] 20:29:00 Test Item Value Reference Range Comments PH VENOUS (BEAKER) (test otur=639) 7.41 7.32-7.42 PCO2 VENOUS (BEAKER) (test azoe=994) 31 mmHg 41-51 PO2 VENOUS (BEAKER) (test yoyv=395) 49 mmHg 25-40 O2 SATURATION VENOUS (BEAKER) (test ajcg=418) 85.2 % 40.0-70.0 HCO3 VENOUS (BEAKER) (test beoa=628) 19 mmol/L 21-29 BASE EXCESS VENOUS (BEAKER) (test nbot=687) -4.7 mmol/L -2.0-3.0 PATIENT TEMPERATURE (BEAKER) (test ghcq=9245) 37.0 C FIO2 (BEAKER) (test acuc=6883) 21.0 % POCT-GLUCOSE [id number] 20:09:00 Test Item Value Reference Range Comments POC-GLUCOSE METER (BEAKER) 219 mg/dL 70-110 TESTED AT [facility] [address] [facility] (test yyow=5086) [facility] [address] POCT-GLUCOSE [id number] 18:58:00 Test Item Value Reference Range Comments POC-GLUCOSE METER (BEAKER) 248 mg/dL 70-110 TESTED AT [place] [id number] [facility] (test bmyy=1276) [facility] [address] [address], [place]ANG[place] [id number] 18:36:00Addendum BeginsREPORT STATUS:A Not mentioned in the body of the report, thereis bilateral temporomandibular joint dislocation, with the mandibular condyles lying anterior and superior to the mandibular eminences. Signed: Ho Chau MDReport Verified Date/Time: 08/19/201818:36:40 Reading Location: [facility] Radiology Reading RoomAddendum EndsFINAL REPORT CTA brain 08/19/2018 1:22 PM CLINICAL INDICATION: Left SAH COMPARISON: CT brain without contrast 08/18/2018 TECHNIQUE: Noncontrast CT images of the head were obtained. Axial contrast-enhanced CT angiographic images of the brain were obtained, from which three-dimensional reconstructed images were created. Additional imaging series were created on an independent workstation using maximum intensity projection and volume rendered technique. This examination was performed according to our departmental dose optimization program, which includes automated exposure control, adjustment of the mAand/or kV according to patient size, and/or use of iterated reconstruction technique. FINDINGS: There is trace bihemispheric subarachnoid and intraventricular hemorrhage. There is no hydrocephalus or mass effect. There is no vessel occlusion, stenosis, aneurysm, or arteriovenous malformation the visualized arterial vasculature. There is no evident vasospasm or vasculitis. Given the lack of evident vascular cause, diagnostic considerations include traumatic hemorrhage and reversible cerebral vasoconstriction syndrome. The visualized soft tissue and skeleton are without worrisome finding. IMPRESSION: 1. Trace subarachnoid intraventricular hemorrhage without hydrocephalus or mass effect. 2. Unremarkable intracranial CTA. Signed: oH Chau Verified Date/Time: 08/19/2018 13:33:21 Reading Location: [facility] Radiology Reading Room RAD, MANDIBLE, LESS THAN 4 [id number] 18:35:00Reason for exam:->dysarthria, fallFINAL REPORT Mandible 6 views 08/19/2018 at 1741 CLINICAL HISTORY: dysarthria, fall COMPARISON: None available IMPRESSION: Patient positioning limits this examination. Pathology may be obscured. With this limitation mind, 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 There is no visible facial bone fracture. The visualized paranasal sinuses and mastoid air cells are well aerated. There is no radiopaque foreign body. Signed: Ho Chau Verified Date/Time: 08/19/2018 18:35:55 Reading Location: [facility] Radiology Reading Room POCT-GLUCOSE [id number] 18:22:00 Test Item Value Reference Range Comments POC-GLUCOSE METER (BEAKER) 222 mg/dL 70-110 TESTED AT [address] (test qkdv=1809) [facility] [address] POCT-GLUCOSE [id number] 16:58:00 Test Item Value Reference Range Comments POC-GLUCOSE METER (BEAKER) 277 mg/dL 70-110 TESTED AT [address] (test myki=2689) [facility] [address] [id number] 16:12:00 Test Item Value Reference Range Comments PHOSPHORUS (BEAKER) (test pepw=953) 2.9 mg/dL 2.3-4.7 [id number] 16:12:00 Test Item Value Reference Range Comments MAGNESIUM (BEAKER) (test xzfz=535) 1.7 mg/dL 1.6-2.6 BASIC METABOLIC [id number] 16:12:00 Test Item Value Reference Range Comments SODIUM (BEAKER) (test 146 meq/L 136-145 mpww=220) POTASSIUM (BEAKER) (test 2.8 meq/L 3.5-5.1 dazr=544) CHLORIDE (BEAKER) (test 115 meq/L 98-107 istq=433) CO2 (BEAKER) (test 14 meq/L 22-29 svsl=661) BLOOD UREA NITROGEN 8 mg/dL 7-21 (BEAKER) (test wecc=878) CREATININE (BEAKER) (test 1.06 mg/dL 0.57-1.25 gpni=367) GLUCOSE RANDOM (BEAKER) 290 mg/dL 70-105 (test nitr=256) CALCIUM (BEAKER) (test 9.1 mg/dL 8.4-10.2 tayy=920) EGFR (BEAKER) (test 64 mL/min/1.73 sq m ESTIMATED GFR IS NOT lqwf=6931) ACCURATE CREATININE CLEARANCE IN PREDICTING GLOMERULAR FILTRATION RATE. ESTIMATED GFR IS NOT APPLICABLE FOR DIALYSIS PATIENTS. KETONE, [id number] 15:46:00 Test Item Value Reference Range Comments KETONES, BLOOD (BEAKER) (test vyyn=7189) 6.0 mmol/L <0.4 POCT-GLUCOSE [id number] 15:18:00 Test Item Value Reference Range Comments POC-GLUCOSE METER (BEAKER) 322 mg/dL 70-110 Will Repeat Test/TESTED AT (test wlkz=0567) [place] [address] POCT-GLUCOSE [id number] 14:27:00 Test Item Value Reference Range Comments POC-GLUCOSE METER (BEAKER) 232 mg/dL 70-110 TESTED AT [address] (test varz=1051) [place] [id number] POCT-GLUCOSE [id number] 13:05:00 Test Item Value Reference Range Comments POC-GLUCOSE METER (BEAKER) 240 mg/dL 70-110 TESTED AT [address] (test wiyj=0557) [place] [address] POCT-GLUCOSE [id number] 12:16:00 Test Item Value Reference Range Comments POC-GLUCOSE METER (BEAKER) 201 mg/dL 70-110 TESTED AT [address] (test qiit=5824) [place] [id number] CT, [id number] 11:46:00FINAL REPORT INDICATION:23- year-old female with abdominal pain. Evaluate for pancreatitis. COMPARISON: None. TECHNIQUE: CT of the Abdomen and Pelvis WITHOUT intravenous contrast.Enteric contrast was used. The exam was performed according to our department dose-optimization protocol, which includes automated exposure control , adjustments of mA and kV according to patient size. Iterative reconstructions are also sometimes employed. FINDINGS:No stranding around the pancreas is demonstrated. Pancreas is normal in configuration and no pancreatic mass, calcification, or ductal dilatation is demonstrated. Liver, gallbladder, spleen , adrenal glands, kidneys, uterus, ovaries are unremarkable. There is a transurethral balloon catheter in the bladder. There is no evidence of bowel obstruction or infection. Appendix is normal. Diverticuli of the sigmoid colon noted. No peritoneal free fluid or free air is demonstrated. Osseous structures unremarkable. IMPRESSION: No evidence of pancreatitis. Signed: Mally Luna MDReport Verified Date/Time: 08/19/2018 11:46:24 Reading Location: [facility] Diagnostic Imaging Reading Room - [place] [address] BASIC METABOLIC [id number] 11:17:00 Test Item Value Reference Range Comments SODIUM (BEAKER) (test 149 meq/L 136-145 timq=659) POTASSIUM (BEAKER) (test 4.6 meq/L 3.5-5.1 enec=789) CHLORIDE (BEAKER) (test 116 meq/L 98-107 hije=250) CO2 (BEAKER) (test 19 meq/L 22-29 ibsa=638) BLOOD UREA NITROGEN 12 mg/dL 7-21 (BEAKER) (test zwoc=472) CREATININE (BEAKER) (test 0.94 mg/dL 0.57-1.25 uroy=252) GLUCOSE RANDOM (BEAKER) 142 mg/dL 70-105 (test guig=173) CALCIUM (BEAKER) (test 9.2 mg/dL 8.4-10.2 imlr=497) EGFR (BEAKER) (test 73 mL/min/1.73 sq m ESTIMATED GFR IS NOT vbau=2245) ACCURATE CREATININE CLEARANCE IN PREDICTING GLOMERULAR FILTRATION RATE. ESTIMATED GFR IS NOT APPLICABLE FOR DIALYSIS PATIENTS. [id number] 11:12:00 Test Item Value Reference Range Comments PHOSPHORUS (BEAKER) (test oapd=298) 3.8 mg/dL 2.3-4.7 POCT-GLUCOSE [id number] 10:49:00 Test Item Value Reference Range Comments POC-GLUCOSE METER (BEAKER) 172 mg/dL 70-110 TESTED AT [address] (test meos=3963) [facility] [address] KETONE, [id number] 10:37:00 Test Item Value Reference Range Comments KETONES, BLOOD (BEAKER) (test hpge=6189) 4.2 mmol/L <0.4 HEMOGLOBIN [id number] 10:29:00 Test Item Value Reference Range Comments HEMOGLOBIN A1C (BEAKER) (test mjyn=393) 15.3 % 4.3-6.1 BLOOD GAS, [id number] 10:23:00 Test Item Value Reference Range Comments PH VENOUS (BEAKER) (test jcwg=389) 7.46 7.32-7.42 PCO2 VENOUS (BEAKER) (test wzax=254) 29 mmHg 41-51 PO2 VENOUS (BEAKER) (test kzuh=450) 35 mmHg 25-40 O2 SATURATION VENOUS (BEAKER) (test qirj=985) 71.4 % 40.0-70.0 HCO3 VENOUS (BEAKER) (test bukd=965) 20 mmol/L 21-29 BASE EXCESS VENOUS (BEAKER) (test ayqo=653) -3.0 mmol/L -2.0-3.0 PATIENT TEMPERATURE (BEAKER) (test tuup=9621) 37.0 C FIO2 (BEAKER) (test iurj=1340) 21.0 % POCT-GLUCOSE [id number] 10:02:00 Test Item Value Reference Range Comments POC-GLUCOSE METER (BEAKER) 145 mg/dL 70-110 TESTED AT [address] (test anck=8732) [facility] [address] POCT-GLUCOSE [id number] 09:04:00 Test Item Value Reference Range Comments POC-GLUCOSE METER (BEAKER) 168 mg/dL 70-110 TESTED AT [address] (test vvne=3042) [facility] [address] POCT-GLUCOSE [id number] 07:47:00 Test Item Value Reference Range Comments POC-GLUCOSE METER (BEAKER) 187 mg/dL 70-110 TESTED AT [facility] [address] (test ixpu=4234) [facility] [address] BLOOD GAS, [id number] 07:14:00 Test Item Value Reference Range Comments PH VENOUS (BEAKER) (test nmli=524) 7.44 7.32-7.42 PCO2 VENOUS (BEAKER) (test flpw=257) 27 mmHg 41-51 PO2 VENOUS (BEAKER) (test tsoh=558) 30 mmHg 25-40 O2 SATURATION VENOUS (BEAKER) (test qtxk=352) 60.9 % 40.0-70.0 HCO3 VENOUS (BEAKER) (test gkzb=057) 18 mmol/L 21-29 BASE EXCESS VENOUS (BEAKER) (test dzre=140) -4.6 mmol/L -2.0-3.0 PATIENT TEMPERATURE (BEAKER) (test mext=7936) 37.0 C FIO2 (BEAKER) (test ofbj=7013) 21.0 % BASIC METABOLIC [id number] 07:13:00 Test Item Value Reference Range Comments SODIUM (BEAKER) (test 157 meq/L 136-145 aqyy=680) POTASSIUM (BEAKER) (test 3.2 meq/L 3.5-5.1 todh=083) CHLORIDE (BEAKER) (test 126 meq/L 98-107 tiau=409) CO2 (BEAKER) (test 17 meq/L 22-29 ttoe=440) BLOOD UREA NITROGEN 11 mg/dL 7-21 (BEAKER) (test vven=898) CREATININE (BEAKER) (test 1.12 mg/dL 0.57-1.25 wfkd=160) GLUCOSE RANDOM (BEAKER) 180 mg/dL 70-105 (test rkvk=898) CALCIUM (BEAKER) (test 9.1 mg/dL 8.4-10.2 hcmb=659) EGFR (BEAKER) (test 60 mL/min/1.73 sq m ESTIMATED GFR IS NOT hytf=7983) ACCURATE CREATININE CLEARANCE IN PREDICTING GLOMERULAR FILTRATION RATE. ESTIMATED GFR IS NOT APPLICABLE FOR DIALYSIS PATIENTS. [id number] 07:11:00 Test Item Value Reference Range Comments MAGNESIUM (BEAKER) (test bmfm=964) 2.0 mg/dL 1.6-2.6 POCT-GLUCOSE [id number] 07:09:00 Test Item Value Reference Range Comments POC-GLUCOSE METER (BEAKER) 183 mg/dL 70-110 TESTED AT [address] (test fryh=8830) [facility] [address] POCT-GLUCOSE [id number] 06:19:00 Test Item Value Reference Range Comments POC-GLUCOSE METER (BEAKER) 185 mg/dL 70-110 TESTED AT [address] (test cokp=0629) [facility] [address] POCT-GLUCOSE [id number] 05:05:00 Test Item Value Reference Range Comments POC-GLUCOSE METER (BEAKER) 223 mg/dL 70-110 TESTED AT [address] (test uvlx=6014) [facility] [address] POCT-GLUCOSE [id number] 04:17:00 Test Item Value Reference Range Comments POC-GLUCOSE METER (BEAKER) 235 mg/dL 70-110 TESTED AT [address] (test opgo=0503) [facility] [address] [id number] 04:07:00 Test Item Value Reference Range Comments PROCALCITONIN (BEAKER) (test jsas=4352) 6.19 ng/mL <0.05 SEPSIS RISK (ng/mL)Low: 0.05-0.50Intermediate: 0.51-2.00High: & gt;=[id number] 04:03:00 Test Item Value Reference Range Comments PHOSPHORUS (BEAKER) (test munt=105) 1.4 mg/dL 2.3-4.7 BASIC METABOLIC [id number] 04:00:00 Test Item Value Reference Range Comments SODIUM (BEAKER) (test 159 meq/L 136-145 ywky=480) POTASSIUM (BEAKER) (test 3.0 meq/L 3.5-5.1 izsq=315) CHLORIDE (BEAKER) (test 129 meq/L 98-107 atph=315) CO2 (BEAKER) (test 15 meq/L 22-29 gbll=348) BLOOD UREA NITROGEN 11 mg/dL 7-21 (BEAKER) (test fdbq=380) CREATININE (BEAKER) (test 1.19 mg/dL 0.57-1.25 trex=512) GLUCOSE RANDOM (BEAKER) 255 mg/dL 70-105 (test behz=578) CALCIUM (BEAKER) (test 9.0 mg/dL 8.4-10.2 rgld=338) EGFR (BEAKER) (test 56 mL/min/1.73 sq m ESTIMATED GFR IS NOT epih=4071) ACCURATE CREATININE CLEARANCE IN PREDICTING GLOMERULAR FILTRATION RATE. ESTIMATED GFR IS NOT APPLICABLE FOR DIALYSIS PATIENTS. BASIC METABOLIC [id number] 04:00:00 Test Item Value Reference Range Comments SODIUM (BEAKER) (test 158 meq/L 136-145 rhcz=464) POTASSIUM (BEAKER) (test 3.1 meq/L 3.5-5.1 ehuy=243) CHLORIDE (BEAKER) (test 129 meq/L 98-107 nqaw=840) CO2 (BEAKER) (test 14 meq/L 22-29 wgtw=728) BLOOD UREA NITROGEN 11 mg/dL 7-21 (BEAKER) (test tvhk=043) CREATININE (BEAKER) (test 1.21 mg/dL 0.57-1.25 wnoy=076) GLUCOSE RANDOM (BEAKER) 258 mg/dL 70-105 (test knbf=305) CALCIUM (BEAKER) (test 8.9 mg/dL 8.4-10.2 wizc=797) EGFR (BEAKER) (test 55 mL/min/1.73 sq m ESTIMATED GFR IS NOT oinj=2777) ACCURATE CREATININE CLEARANCE IN PREDICTING GLOMERULAR FILTRATION RATE. ESTIMATED GFR IS NOT APPLICABLE FOR DIALYSIS PATIENTS. BLOOD GAS, [id number] 03:52:00 Test Item Value Reference Range Comments PH VENOUS (BEAKER) (test bjzj=830) 7.44 7.32-7.42 PCO2 VENOUS (BEAKER) (test ukun=316) 25 mmHg 41-51 PO2 VENOUS (BEAKER) (test nlgw=583) 38 mmHg 25-40 O2 SATURATION VENOUS (BEAKER) (test qzrf=512) 75.9 % 40.0-70.0 HCO3 VENOUS (BEAKER) (test fvps=579) 16 mmol/L 21-29 BASE EXCESS VENOUS (BEAKER) (test aghs=384) -6.0 mmol/L -2.0-3.0 PATIENT TEMPERATURE (BEAKER) (test ioqw=1586) 37.0 C FIO2 (BEAKER) (test orxo=6016) 21.0 % B-TYPE NATRIURETIC FACTOR (BNP)2018-08-19 03:49:00 Test Item Value Reference Range Comments B-TYPE NATRIURETIC PEPTIDE (BEAKER) (test cmcv=023) 70 pg/mL 0-100 [id number] 03:43:00 Test Item Value Reference Range Comments MAGNESIUM (BEAKER) (test syyn=706) 2.1 mg/dL 1.6-2.6 [id number] 03:43:00 Test Item Value Reference Range Comments AMYLASE (BEAKER) (test owmx=967) 566 U/L 25-125 [id number] 03:43:00 Test Item Value Reference Range Comments LIPASE (BEAKER) (test yghw=304) 124 U/L 8-78 C-REACTIVE [id number] 03:43:00 Test Item Value Reference Range Comments C-REACTIVE PROTEIN (BEAKER) (test hwdx=246) 5.56 mg/dL 0.00-0.50 KETONE, [id number] 03:23:00 Test Item Value Reference Range Comments KETONES, BLOOD (BEAKER) (test wped=1042) 4.8 mmol/L <0.4 CBC (HEMOGRAM ONLY)2018-08-19 03:22:00 Test Item Value Reference Range Comments WHITE BLOOD CELL COUNT (BEAKER) (test nhjc=508) 21.9 K/ L 3.5-10.5 RED BLOOD CELL COUNT (BEAKER) (test jers=322) 4.46 M/ L 3.93-5.22 HEMOGLOBIN (BEAKER) (test qxve=899) 13.7 GM/DL 11.2-15.7 HEMATOCRIT (BEAKER) (test ejvk=292) 37.7 % 34.1-44.9 MEAN CORPUSCULAR VOLUME (BEAKER) (test gwyd=690) 84.5 fL 79.4-94.8 MEAN CORPUSCULAR HEMOGLOBIN (BEAKER) (test 30.7 pg 25.6-32.2 mtrv=390) MEAN CORPUSCULAR HEMOGLOBIN CONC (BEAKER) (test 36.3 GM/DL 32.2-35.5 ncep=327) RED CELL DISTRIBUTION WIDTH (BEAKER) (test 13.2 % 11.7-14.4 eetq=410) PLATELET COUNT (BEAKER) (test mifm=891) 329 K/CU MM 150-450 MEAN PLATELET VOLUME (BEAKER) (test mkfk=680) 10.4 fL 9.4-12.3 NUCLEATED RED BLOOD CELLS (BEAKER) (test 0 /100 WBC 0-0 qfud=996) POCT-GLUCOSE [id number] 03:17:00 Test Item Value Reference Range Comments POC-GLUCOSE METER (BEAKER) 251 mg/dL 70-110 TESTED AT [address] (test gubo=1209) [facility] [address] OSMOLALITY, [id number] 02:24:00 Test Item Value Reference Range Comments OSMOLALITY URINE (BEAKER) (test idmr=766) 599 mOsm/kg 40-1400 POCT-GLUCOSE [id number] 02:16:00 Test Item Value Reference Range Comments POC-GLUCOSE METER (BEAKER) 288 mg/dL 70-110 TESTED AT [address] (test zgny=8142) [place] [id number] KETONE, [id number] 01:49:00 Test Item Value Reference Range Comments KETONES, BLOOD (BEAKER) (test wkrf=0750) 6.1 mmol/L <0.4 POCT-GLUCOSE [id number] 01:13:00 Test Item Value Reference Range Comments POC-GLUCOSE METER (BEAKER) 254 mg/dL 70-110 TESTED AT [address] (test qqbk=5583) [facility] [address] BLOOD GAS, [id number] 01:10:00 Test Item Value Reference Range Comments PH VENOUS (BEAKER) (test kurt=407) 7.41 7.32-7.42 PCO2 VENOUS (BEAKER) (test aqqb=871) 17 mmHg 41-51 PO2 VENOUS (BEAKER) (test tlvl=092) 36 mmHg 25-40 O2 SATURATION VENOUS (BEAKER) (test ksqr=143) 71.4 % 40.0-70.0 HCO3 VENOUS (BEAKER) (test mhkd=133) 11 mmol/L 21-29 BASE EXCESS VENOUS (BEAKER) (test fyak=213) -11.0 mmol/L -2.0-3.0 PATIENT TEMPERATURE (BEAKER) (test mbku=7220) 37.0 C FIO2 (BEAKER) (test cxqx=2363) 21.0 % POCT-GLUCOSE [id number] 00:05:00 Test Item Value Reference Range Comments POC-GLUCOSE METER (BEAKER) 288 mg/dL 70-110 TESTED AT [facility] [address] [facility] (test udrp=8788) [facility] [address] BASIC METABOLIC [id number] 23:16:00 Test Item Value Reference Range Comments SODIUM (BEAKER) (test 159 meq/L 136-145 dtdl=554) POTASSIUM (BEAKER) (test 3.3 meq/L 3.5-5.1 opab=186) CHLORIDE (BEAKER) (test 129 meq/L 98-107 aulw=163) CO2 (BEAKER) (test 8 meq/L 22-29 jdpe=205) BLOOD UREA NITROGEN 12 mg/dL 7-21 (BEAKER) (test qokc=240) CREATININE (BEAKER) (test 1.29 mg/dL 0.57-1.25 ojwb=728) GLUCOSE RANDOM (BEAKER) 287 mg/dL 70-105 (test gbwo=638) CALCIUM (BEAKER) (test 8.4 mg/dL 8.4-10.2 zacb=019) EGFR (BEAKER) (test 51 mL/min/1.73 sq m ESTIMATED GFR IS NOT tnay=8347) ACCURATE CREATININE CLEARANCE IN PREDICTING GLOMERULAR FILTRATION RATE. ESTIMATED GFR IS NOT APPLICABLE FOR DIALYSIS PATIENTS. OSMOLALITY, [id number] 23:03:00 Test Item Value Reference Range Comments OSMOLALITY, SERUM (BEAKER) (test oqgh=246) 342 mOsm/kg 275-295 [id number] 23:02:00 Test Item Value Reference Range Comments PHOSPHORUS (BEAKER) (test kfbs=550) 1.1 mg/dL 2.3-4.7 [id number] 23:00:00 Test Item Value Reference Range Comments MAGNESIUM (BEAKER) (test bxmf=049) 2.1 mg/dL 1.6-2.6 CALCIUM, [id number] 22:47:00 Test Item Value Reference Range Comments CALCIUM IONIZED (BEAKER) (test blws=912) 1.20 mmol/L 1.12-1.27 PH, BLOOD (BEAKER) (test qoci=4349) 7.40 CBC (HEMOGRAM ONLY)2018-08-18 22:47:00 Test Item Value Reference Range Comments WHITE BLOOD CELL COUNT (BEAKER) (test usjg=374) 26.9 K/ L 3.5-10.5 RED BLOOD CELL COUNT (BEAKER) (test sgvv=083) 4.63 M/ L 3.93-5.22 HEMOGLOBIN (BEAKER) (test dhaf=456) 14.0 GM/DL 11.2-15.7 HEMATOCRIT (BEAKER) (test bubc=393) 39.1 % 34.1-44.9 MEAN CORPUSCULAR VOLUME (BEAKER) (test djxd=959) 84.4 fL 79.4-94.8 MEAN CORPUSCULAR HEMOGLOBIN (BEAKER) (test 30.2 pg 25.6-32.2 jlxi=053) MEAN CORPUSCULAR HEMOGLOBIN CONC (BEAKER) (test 35.8 GM/DL 32.2-35.5 taqq=808) RED CELL DISTRIBUTION WIDTH (BEAKER) (test 13.2 % 11.7-14.4 fzkb=489) PLATELET COUNT (BEAKER) (test jiis=527) 348 K/CU MM 150-450 MEAN PLATELET VOLUME (BEAKER) (test snus=793) 10.4 fL 9.4-12.3 NUCLEATED RED BLOOD CELLS (BEAKER) (test 0 /100 WBC 0-0 pbrq=038) BLOOD GAS, [id number] 22:46:00 Test Item Value Reference Range Comments PH VENOUS (BEAKER) (test jzni=021) 7.40 7.32-7.42 PCO2 VENOUS (BEAKER) (test pucb=457) 15 mmHg 41-51 PO2 VENOUS (BEAKER) (test vqnk=505) 33 mmHg 25-40 O2 SATURATION VENOUS (BEAKER) (test lvtg=646) 65.4 % 40.0-70.0 HCO3 VENOUS (BEAKER) (test bdwo=519) 9 mmol/L 21-29 BASE EXCESS VENOUS (BEAKER) (test omyh=213) -12.5 mmol/L -2.0-3.0 PATIENT TEMPERATURE (BEAKER) (test sulv=2965) 37.0 C FIO2 (BEAKER) (test sbrr=8017) 21.0 % KETONE, [id number] 22:46:00 Test Item Value Reference Range Comments KETONES, BLOOD (BEAKER) (test xoap=6166) 5.6 mmol/L <0.4 RAD, CHEST, 1 VIEW, NON [id number] 22:44:00Reason for exam:->central line Should this be performed at the bedside?->YesFINAL REPORT RAD, CHEST, 1 VIEW, NON DEPT INDICATION: central line COMPARISON: None FINDINGS: Portable frontal view of the chest. IMPRESSION: Support Lines: Right IJ central venous catheter terminates over the superior vena cava. Enteric tube has been placed with the side port well beyond the GE junction. The distal tip is positioned near the gastric cardia. Lungs and pleura: Lungs are clear. No pneumothorax.Heart and mediastinum: Unremarkable. Additional findings: None. Signed: JR York Robert MDReport Verified Date/Time: 08/18/2018 22:44:52 Reading Location: [address] Reading Room POCT- GLUCOSE [id number] 22:34:00 Test Item Value Reference Range Comments POC-GLUCOSE METER (BEAKER) 259 mg/dL 70-110 TESTED AT [facility] [address] [facility] (test erwf=6882) [facility] [address] CHLORIDE, RANDOM [id number] 22:28:00 Test Item Value Reference Range Comments CHLORIDE URINE (BEAKER) (test fnlx=159) 88 meq/L Reference Range: No NormalsCREATININE, RANDOM [id number] 22:28:00 Test Item Value Reference Range Comments CREATININE URINE (BEAKER) (test upel=666) 12.5 mg/dL Reference Range: No NormalsSODIUM, RANDOM [id number] 22:28:00 Test Item Value Reference Range Comments SODIUM URINE (BEAKER) (test nzdk=120) 143 meq/L Reference Range: No NormalsUREA NITROGEN, RANDOM [id number] 22:28:00 Test Item Value Reference Range Comments UREA NITROGEN URINE (BEAKER) (test ptkt=701) 154 mg/dL Reference Range: No NormalsOSMOLALITY, [id number] 21:53:00 Test Item Value Reference Range Comments OSMOLALITY URINE (BEAKER) (test wcht=364) 546 mOsm/kg 40-1400 BASIC METABOLIC [id number] 21:07:00 Test Item Value Reference Range Comments SODIUM (BEAKER) (test 160 meq/L 136-145 mmdj=205) POTASSIUM (BEAKER) (test 2.9 meq/L 3.5-5.1 Specimen slightly tzun=075) hemolyzed CHLORIDE (BEAKER) (test 126 meq/L 98-107 lpuk=231) CO2 (BEAKER) (test 5 meq/L 22-29 shnq=344) BLOOD UREA NITROGEN 12 mg/dL 7-21 (BEAKER) (test tajz=620) CREATININE (BEAKER) (test 1.40 mg/dL 0.57-1.25 Specimen slightly nffl=628) hemolyzed GLUCOSE RANDOM (BEAKER) 365 mg/dL 70-105 (test deoo=168) CALCIUM (BEAKER) (test 8.4 mg/dL 8.4-10.2 bktv=231) EGFR (BEAKER) (test 46 mL/min/1.73 sq m ESTIMATED GFR IS NOT vici=0204) ACCURATE CREATININE CLEARANCE IN PREDICTING GLOMERULAR FILTRATION RATE. ESTIMATED GFR IS NOT APPLICABLE FOR DIALYSIS PATIENTS. [id number] 21:07:00 Test Item Value Reference Range Comments PHOSPHORUS (BEAKER) (test < mg/dL 2.3-4.7 Specimen slightly hemolyzed jxpy=431) POCT-GLUCOSE [id number] 21:06:00 Test Item Value Reference Range Comments POC-GLUCOSE METER (BEAKER) 381 mg/dL 70-110 TESTED AT [address] (test mkij=0116) [facility] [address] POCT-GLUCOSE [id number] 21:06:00 Test Item Value Reference Range Comments POC-GLUCOSE METER (BEAKER) 437 mg/dL 70-110 TESTED AT [address] (test luyf=4253) [facility] [address] [id number] 21:05:00 Test Item Value Reference Range Comments LIPASE (BEAKER) (test vnle=512) 138 U/L 8-78 [id number] 21:05:00 Test Item Value Reference Range Comments AMYLASE (BEAKER) (test slqn=640) 669 U/L 25-125 [id number] 21:04:00 Test Item Value Reference Range Comments PROTIME (BEAKER) (test kety=971) 15.8 seconds 11.7-14.7 INR (BEAKER) (test zcug=496) 1.3 <=5.9 PARTIAL THROMBOPLASTIN TIME (BEAKER) (test 21.3 seconds 22.5-36.0 wyno=293) RECOMMENDED COUMADIN/WARFARIN INR THERAPY RANGESSTANDARD DOSE: 2.0 - 3.0 Includes: PROPHYLAXIS forvenous thrombosis, systemic embolization; TREATMENT for venous thrombosis and/or pulmonary embolus.HIGH RISK: Target INR is 2.5-3.5 for patients with mechanical heart valves.[id number] 21:04:00 Test Item Value Reference Range Comments MAGNESIUM (BEAKER) (test 2.2 mg/dL 1.6-2.6 Specimen slightly hemolyzed yijs=166) BLOOD GAS, [id number] 21:00:00 Test Item Value Reference Range Comments PH ARTERIAL (BEAKER) (test bdwz=778) 7.42 7.35-7.45 PCO2 ARTERIAL (BEAKER) (test gefv=120) 8 mmHg 35-45 PO2 ARTERIAL (BEAKER) (test xcmj=344) 225 mmHg 80-90 O2 SATURATION ARTERIAL (BEAKER) (test mbhv=274) 99.5 % 96.0-97.0 HCO3 ARTERIAL (BEAKER) (test clnb=019) 5 mmol/L 21-29 BASE EXCESS ARTERIAL (BEAKER) (test ppvk=673) -15.2 mmol/L -2.0-3.0 PATIENT TEMPERATURE (BEAKER) (test ivmi=7947) 37.0 C FIO2 (BEAKER) (test rymd=2127) 21.0 % HEMOGLOBIN [id number] 21:00:00 Test Item Value Reference Range Comments HEMOGLOBIN A1C (BEAKER) (test ifpx=091) 15.7 % 4.3-6.1 CT BRAIN WITHOUT IV CONTRAST - [id number] 20:04:00Reason for exam:->r /o bleedFINAL REPORT CT head without contrast 08/18/2018 8:03 PM CLINICAL HISTORY: r/o bleed TECHNIQUE: Contiguous axial images through the head without contrast were obtained utilizing the portable CT unit. This examination was performed according to our departmental dose optimization program, which includes automated exposure control, adjustment of the mA and/or kV according to patient size, and/or use of iterated reconstruction technique. COMPARISON: None available FINDINGS: There is no intracranial hemorrhage, mass, hydrocephalus, extra-axial collection, or midline shift. The visualized paranasal sinuses and tympanomastoid cavities are well-aerated, save for retention cysts in the left greater than right maxillary sinuses. The skull is intact. IMPRESSION: No intracranial hemorrhage or mass effect. Signed: Ho Chau Verified Date/Time: 08/18/2018 20:04:50 Reading Location: [facility] Radiology Reading Room POCT-GLUCOSE [id number] 19:21: 00 Test Item Value Reference Range Comments POC-GLUCOSE METER (BEAKER) 425 mg/dL 70-110 TESTED AT [facility] [address] [facility] (test zhvv=1953) [facility] [address] [id number] 18:52:00 Test Item Value Reference Range Comments PHOSPHORUS (BEAKER) (test frgi=084) < mg/dL 2.3-4.7 If last glucose was less than 500, may do bedside glucose instead of serum glucose.RAPID DRUG SCREEN, [id number] 18:52:00 Test Item Value Reference Range Comments BARBITURATE URINE (BEAKER) (test yyix=726) Negative Negative BENZODIAZEPINE SCREEN URINE (BEAKER) (test Negative Negative enuz=863) COCAINE (METAB.) SCREEN (BEAKER) (test azyu=9108) Negative Negative METHADONE SCREEN (BEAKER) (test wqyd=0251) Negative Negative OPIATE SCREEN URINE (BEAKER) (test qrhw=673) Negative Negative CANNABINOID SCREEN URINE (BEAKER) (test kzqn=798) Negative Negative AMPH/METHAMPH SCREEN (BEAKER) (test shkl=8594) Negative Negative PHENCYCLIDINE SCREEN URINE (BEAKER) (test mmzk=199) Negative Negative OXYCODONE SCREEN URINE (BEAKER) (test asnr=4692) Negative Negative DRUG CUTOFF CONC.Cocaine 300 ng/mL Cannabinoid 50 ng/mL Benzodiazepine 200 ng/mLBarbiturate 200 ng/ mLPhencyclidine 25 ng/mLOpiate 300 ng/mLMethadone 300 ng/mLAmphetamine/ 1000 ng/mL MethamphetamineOxycodone 300 ng/mLThis assay provides an unconfirmed qualitative test result for the clinical management of patients in emergency situations. Chain of custody not maintained. Some cexm-rzb-xrgznab medications, as well as adulterants, may cause inaccurate results. Clinical correlation should be applied. A more comprehensive drug screen or confirmation of a detected drug may be performed upon request.BASIC METABOLIC [id number] 18:51:00 Test Item Value Reference Range Comments SODIUM (BEAKER) (test 155 meq/L 136-145 sgft=033) POTASSIUM (BEAKER) (test 3.5 meq/L 3.5-5.1 mdao=767) CHLORIDE (BEAKER) (test 124 meq/L 98-107 tcjj=150) CO2 (BEAKER) (test 5 meq/L 22-29 sdyq=142) BLOOD UREA NITROGEN 13 mg/dL 7-21 (BEAKER) (test jrko=687) CREATININE (BEAKER) (test 1.59 mg/dL 0.57-1.25 tjel=620) GLUCOSE RANDOM (BEAKER) 559 mg/dL 70-105 (test amlx=465) CALCIUM (BEAKER) (test 8.5 mg/dL 8.4-10.2 dudq=707) EGFR (BEAKER) (test 40 mL/min/1.73 sq m ESTIMATED GFR IS NOT ufkl=4642) ACCURATE CREATININE CLEARANCE IN PREDICTING GLOMERULAR FILTRATION RATE. ESTIMATED GFR IS NOT APPLICABLE FOR DIALYSIS PATIENTS. If last glucose was less than 500, may do bedside glucose instead of serum glucose.[id number] 18:48:00 Test Item Value Reference Range Comments MAGNESIUM (BEAKER) (test cwnp=779) 2.1 mg/dL 1.6-2.6 If last glucose was less than 500, may do bedside glucose instead of serum glucose.KETONE, [id number] 18:45:00 Test Item Value Reference Range Comments KETONES, BLOOD (BEAKER) (test kfoz=4918) 5.2 mmol/L <0.4 [id number] 18:43:00 Test Item Value Reference Range Comments PROTIME (BEAKER) (test sscw=394) 15.8 seconds 11.7-14.7 INR (BEAKER) (test xpwd=451) 1.3 <=5.9 PARTIAL THROMBOPLASTIN TIME (BEAKER) (test 22.2 seconds 22.5-36.0 asfu=698) RECOMMENDED COUMADIN/WARFARIN INR THERAPY RANGESSTANDARD DOSE: 2.0 - 3.0 Includes: PROPHYLAXIS forvenous thrombosis, systemic embolization; TREATMENT for venous thrombosis and/or pulmonary embolus.HIGH RISK: Target INR is 2.5-3.5 for patients with mechanical heart valves.URINALYSIS W/ REFLEX URINE [id number] 18:41:00 Test Item Value Reference Range Comments COLOR (BEAKER) (test kbpq=237) Colorless CLARITY (BEAKER) (test urzu=848) Clear SPECIFIC GRAVITY UA (BEAKER) (test ffzu=727) 1.009 1.001-1.035 PH UA (BEAKER) (test ljro=684) 5.5 5.0-8.0 PROTEIN UA (BEAKER) (test eckt=495) Negative Negative GLUCOSE UA (BEAKER) (test yqtb=576) >1000 mg/dL Negative KETONES UA (BEAKER) (test iint=589) >150 mg/dL Negative BILIRUBIN UA (BEAKER) (test pswn=155) Negative Negative BLOOD UA (BEAKER) (test dchl=052) Small Negative NITRITE UA (BEAKER) (test wbox=658) Negative Negative LEUKOCYTE ESTERASE UA (BEAKER) (test umpu=869) Negative Negative UROBILINOGEN UA (BEAKER) (test gpgy=079) 0.2 mg/dL 0.2-1.0 RBC UA (BEAKER) (test qtxc=612) 7 /HPF WBC UA (BEAKER) (test fkgs=801) 12 /HPF BACTERIA (BEAKER) (test qyxn=066) Rare MUCUS (BEAKER) (test clpl=0423) Few SQUAMOUS EPITHELIAL (BEAKER) (test ibiy=445) 13 /HPF HYALINE CASTS (BEAKER) (test hhhd=582) 1 /LPF SOURCE(BEAKER) (test ilhd=4312) SCREEN, [id number] 18:35:00 Test Item Value Reference Range Comments TEST URINE (BEAKER) (test ptiy=916) Negative BLOOD GAS, [id number] 18:32:00 Test Item Value Reference Range Comments PH ARTERIAL (BEAKER) (test npet=539) 7.28 7.35-7.45 PCO2 ARTERIAL (BEAKER) (test cokt=746) 11 mmHg 35-45 PO2 ARTERIAL (BEAKER) (test fukh=453) 148 mmHg 80-90 O2 SATURATION ARTERIAL (BEAKER) (test tzar=746) 98.8 % 96.0-97.0 HCO3 ARTERIAL (BEAKER) (test ctec=098) 5 mmol/L 21-29 BASE EXCESS ARTERIAL (BEAKER) (test zieg=825) -19.1 mmol/L -2.0-3.0 PATIENT TEMPERATURE (BEAKER) (test eyci=0516) 35.5 C FIO2 (BEAKER) (test tqyb=2042) 21.0 % [id number] 18:16:00 Test Item Value Reference Range Comments FIBRINOGEN LEVEL (BEAKER) (test 331 mg/dl 225-434 Sample clotted, notified RN hrkf=509) badge #[id number] for recollect. [id number] 18:16:00 Test Item Value Reference Range Comments D-DIMER QUANTITATIVE (BEAKER) 0.64 MG/L FEU <0.50 Sample is clotted, (test gsbu=825) notified RN badge #[id number] for recollect.This is a corrected result. Previous result was 0.64 MG/L FEU on 08/18/2018 at 1733 CDT Intended Use: The D-Dimer Assay can be used to aid in the diagnosis of Deep Vein Thrombosis (DVT) and Pulmonary Embolism Disease (PED).In patients with low pre-test probability, various studies concerning STA Liatest D-dimer test have reported that with a cutoff value of 0.50 MG/L FEU, the Negative Predictive Value (NPV) regarding the exclusion of thrombosis is within 95-100% range.POCT- GLUCOSE [id number] 18:05:00 Test Item Value Reference Range Comments POC-GLUCOSE METER (BEAKER) > mg/dL 70-110 OUTSIDE MEASURING RANGETESTED AT (test zoly=0098) [facility] [address] [facility] [address] [id number] 18:01:00 Test Item Value Reference Range Comments PROCALCITONIN (BEAKER) (test nwko=5469) 3.19 ng/mL <0.05 SEPSIS RISK (ng/mL)Low: 0.05-0.50Intermediate: 0.51-2.00High: & gt;=2.01CREATINE KINASE (CK), TOTAL AND [id number] 17:50:00 Test Item Value Reference Range Comments CREATINE KINASE TOTAL (BEAKER) (test feuk=625) 54 U/L 29-200 CREATINE KINASE-MB (BEAKER) (test sblo=996) 1.6 ng/mL 0.0-6.6 CREATINE KINASE-MB INDEX (BEAKER) (test tsjc=416) 3.0 % CK-MB Reference Range:<6.7 Normal6.7-10.0 Borderline>10.0 AbnormalTROPONIN [id number] 17:50:00 Test Item Value Reference Range Comments TROPONIN I (BEAKER) (test gtuy=107) < ng/mL 0.00-0.03 Troponin I (TnI) levels must be interpreted in the context of the presenting symptoms and the clinical findings. Elevated TnI levels indicate myocardial damage, but are not specific for ischemic heart disease. Elevated TnI levels are seen in patients with other cardiac conditions (including myocarditis and congestive heart failure), and slight TnI elevations occur in patients with other conditions, including sepsis, renal failure, acidosis, acute neurological disease, and persistent tachyarrhythmia.B-TYPE NATRIURETIC FACTOR (BNP) 17:49:00 Test Item Value Reference Range Comments B-TYPE NATRIURETIC PEPTIDE (BEAKER) (test tamo=111) 47 pg/mL 0-100 COMPREHENSIVE METABOLIC [id number] 17:48:00 Test Item Value Reference Range Comments TOTAL PROTEIN (BEAKER) 5.8 gm/dL 6.0-8.3 (test pscx=808) ALBUMIN (BEAKER) (test 3.3 g/dL 3.5-5.0 olvr=2255) ALKALINE PHOSPHATASE 147 U/L 40-150 (BEAKER) (test dgxm=503) BILIRUBIN TOTAL (BEAKER) 0.3 mg/dL 0.2-1.2 (test tfbm=069) SODIUM (BEAKER) (test 150 meq/L 136-145 siep=239) POTASSIUM (BEAKER) (test 2.5 meq/L 3.5-5.1 apfr=654) CHLORIDE (BEAKER) (test 119 meq/L 98-107 yriv=485) CO2 (BEAKER) (test < meq/L 22-29 hxxw=325) BLOOD UREA NITROGEN 15 mg/dL 7-21 (BEAKER) (test lfxm=951) CREATININE (BEAKER) (test 1.67 mg/dL 0.57-1.25 luja=346) GLUCOSE RANDOM (BEAKER) 709 mg/dL 70-105 (test uywc=523) CALCIUM (BEAKER) (test 8.1 mg/dL 8.4-10.2 fdfl=441) AST (SGOT) (BEAKER) (test 12 U/L 5-34 xbeo=409) ALT (SGPT) (BEAKER) (test 8 U/L 6-55 ysnc=585) EGFR (BEAKER) (test 38 mL/min/1.73 sq m ESTIMATED GFR IS NOT qhji=9309) ACCURATE CREATININE CLEARANCE IN PREDICTING GLOMERULAR FILTRATION RATE. ESTIMATED GFR IS NOT APPLICABLE FOR DIALYSIS PATIENTS. [id number] 17:47:00 Test Item Value Reference Range Comments LIPASE (BEAKER) (test qvqy=821) 329 U/L 8-78 [id number] 17:47:00 Test Item Value Reference Range Comments AMYLASE (BEAKER) (test nokj=457) 563 U/L 25-125 LACTATE DEHYDROGENASE (LDH)2018-08-18 17:47:00 Test Item Value Reference Range Comments LACTATE DEHYDROGENASE (BEAKER) (test qfkt=467) 255 U/L 125-220 C-REACTIVE [id number] 17:47:00 Test Item Value Reference Range Comments C-REACTIVE PROTEIN (BEAKER) (test hbpu=501) 1.35 mg/dL 0.00-0.50 LACTIC ACID, VENOUS, WHOLE [id number] 17:41:00 Test Item Value Reference Range Comments LACTATE BLOOD VENOUS (2) 2.0 mmol/L 0.5-2.2 Specimen markedly hemolyzed (BEAKER) (test wynk=4929) Effective 03/06/2016: Units/Reference Range ChangeNew: 0.5-2.2 mmol/L Previous: 5 -20 mg/dLPOCT-LACTIC ACID, [id number] 17:13:00 Test Item Value Reference Range Comments POC-LACTIC ACID, ARTERIAL 1.9 mmol/L 0.4-1.[address] (BEAKER) (test vezt=4343) [place] [address] POCT-BLOOD GASES, [id number] 17:13:00 Test Item Value Reference Range Comments TEMP, CELSIUS-POC (BEAKER) 37.0 (test dcpj=7228) FIO2-POC (BEAKER) (test TESTED AT [address] argl=4808) [place] [address] PH, ARTERIAL-POC (BEAKER) 7.069 7.350-7.450 (test mtxx=2164) PCO2, ARTERIAL-POC (BEAKER) 10.5 mm Hg 35.0-45.0 (test vzki=9004) PO2, ARTERIAL-POC (BEAKER) 144.0 mm Hg 80.0-90.0 (test ylnx=4322) SO2, ARTERIAL-POC (BEAKER) 98.0 % 96.0-97.0 (test pekb=1885) HCO3, ARTERIAL-POC (BEAKER) 3.0 meq/L 21.0-29.0 (test koal=1319) BASE EXCESS, ARTERIAL-POC -27.0 meq/L -2.0-3.0 (BEAKER) (test kldh=0130) [id number] 17:13:00 Test Item Value Reference Range Comments POC-SODIUM (BEAKER) (test 150 meq/L 135-148 TESTED AT [address] cwcn=7644) [place] [address] [id number] 17:13:00 Test Item Value Reference Range Comments POC-POTASSIUM (BEAKER) (test 2.4 meq/L 3.6-5.5 TESTED AT [address] esyv=9243) [place] [address] [id number] 17:13:00 Test Item Value Reference Range Comments POC-GLUCOSE (BEAKER) (test 685 mg/dL 70-110 TESTED AT [address] ijrr=5531) [place] [address] POCT-CALCIUM [id number] 17:13:00 Test Item Value Reference Range Comments POC-CALCIUM IONIZED (BEAKER) 1.24 mmol/L 1.12-1.27 TESTED AT [address] (test pshw=7372) [facility] [address] [id number] 17:13:00 Test Item Value Reference Range Comments POC-HEMATOCRIT (BEAKER) (test 40 % 36-45 TESTED AT [address] tulo=4364) [place] [id number] 17:13:00 Test Item Value Reference Range Comments POC-HEMOGLOBIN (AKER) 13.6 g/dL 12.0-15.0 TESTED AT [address] (test sqqm=9749) [place] [address]TESTED AT [place] [address] POCT-GLUCOSE [id number] 17:07:00 Test Item Value Reference Range Comments POC-GLUCOSE METER ([facility]) > mg/dL 70-110 OUTSIDE MEASURING RANGETESTED AT (test byzv=1972) [place] [address]
--- OUTSIDE RECORDS SUMMARY | 2019-10-07 15:42 | XMS REPORT | Summary of Care ---
:1995 Author Organization [facility] Address [address] [place] [address] Care Team Providers Name Role Phone Pcp, Patient Does Not Have A Primary Care Provider Reason for Visit Reason Comments Refill Request Encounter Details Date Type Department Care Team Description 06/25/2019 Refill [facility] Endocrinology- Constanza Abraham MD Refill Request [address] Professional Office [address] [place]ade [phone] [address] [place] [address] Allergies No Known Allergiesdocumented as of this encounter (statuses as of 06/25/2019) Medications Medication Sig Dispensed Refills Start End Date Status Date insulin lispro INJECT up to 10 9 mL 3 Active (HUMALOG KWIKPEN UNITS 8 INSULIN) 100 SUBCUTANEOUSLY unit/mL pen THREE TIMES A DAY injectorIndication WITH MEALS per s: Uncontrolled sliding scale type 1 diabetes mellitus with hyperglycemia Insulin [place], Use as directed 400 Each 1 Active [...] as of this encounter (statuses as of 06/25/2019) Active Problems Not on filedocumented as of this encounter (statuses as of 06/25/2019) Social History Tobacco Use Types Packs/Day Years [...] Office Visit Endocrinology Diabetes & AbrahamConstanza MD Metabolism [address] [place] [id number] Health Maintenance Due Date Last Done Comments [...] Dates Phone Address Type [employer] AET[employer] HMO [id number] 2018-Present HMO documented as of this encounter
--- OUTSIDE RECORDS SUMMARY | 2019-10-07 15:42 | XMS REPORT | Summary of Care ---
:1995 Author Organization [facility] Address [address] [place] [address] Care Team Providers Name Role Phone Pcp, Patient Does Not Have A Primary Care Provider Reason for Visit Reason Comments Erroneous encounter-disregard Encounter Details Date Type Department Care Team Description 06/08/2019 Office Visit [facility] Constanza Abraham MD Uncontrolled type 1 Endocrinology- [address] [facility] diabetes mellitus with [facility] (Primary Professional Office [place], [place] Dx) Building [address] [place] [address] [address] [place] (Fax) [address] Allergies No Known Allergiesdocumented as of this encounter (statuses as of 06/27/2019) Medications Medication Sig Dispensed Refills Start End Date Status Date insulin lispro INJECT up to 10 9 mL 3 Active (HUMALOG KWIKPEN UNITS 8 INSULIN) 100 SUBCUTANEOUSLY unit/mL pen THREE TIMES A DAY injectorIndication WITH MEALS per s: Uncontrolled sliding scale type 1 diabetes mellitus with hyperglycemia Insulin [place], Use as directed 400 Each 1 Active [...] Endocrinology Diabetes & Constanza Abraham MD Metabolism [address] [place] [address] [phone] Health Maintenance Due Date Last Done Comments [...]
[2019-10-07] MEDS ORDERED: SUCRALFATE 1 GM TABLET ONE (16:51)
[2019-10-07] MEDS ORDERED: ONDANSETRON 4 MG/2 ML VIAL ONE (17:02)
[2019-10-07] MEDS ORDERED: PANTOPRAZOLE 40 MG INJ ONE (17:03)
[2019-10-07] MEDS ORDERED: NA CHLORIDE 0.9% 1,000 ML ONE ×2 (17:03→18:12)
[2019-10-07 17:09] LABS: Absolute Lymphocytes (CBC) 2.5 K/uL (0.7-4.9); Basophils % 0.2 % (0-1.3); Hematocrit 41.1 % (36.0-45.0); Lymphocytes % 36.7 % (15.3-44.8); MPV 8.5 fL (7.6-11.3); RBC Red Blood Cell Count 4.67 M/uL (3.86-4.86)
[2019-10-07 17:33] LABS: Urine Blood NEGATIVE (NEG); Urine Glucose 2+ (NEG); Urine Protein NEGATIVE (NEG); Urine Specific Gravity >1.030 (1.005-1.030)
[2019-10-07 17:43] LABS: ALT/SGPT 17 U/L (12-78); AST/SGOT 7 U/L (15-37); Albumin 3.1 g/dL (3.4-5.0); Alkaline Phosphatase 85 U/L (45-117); BUN Blood Urea Nitrogen 11 mg/dL (7-18); Bicarbonate 29 mmol/L (21-32); Bilirubin Direct 0.1 mg/dL (0-0.2); Bilirubin Total 0.4 mg/dL (0.2-1.0); Glucose Level 217 mg/dL (74-106); Lipase 138 U/L (73-393); Protein, Total 6.5 g/dL (6.4-8.2); Sodium Level 140 mmol/L (136-145)
[2019-10-07] MEDS ORDERED: KCL 20 MEQ/100 mL IVPB 20 MEQ/100 ML BAG IV ONE (18:12)
[2019-10-07 18:28] LABS: Urine Bacteria <20 /HPF (<20); Urine Culture Reflex Order NOT NEEDED; Urine Mucus 2+ /HPF (NONE SEEN); Urine RBC <5 /HPF (NONE SEEN)
[2019-10-07] MEDS ORDERED: SIMETHICONE 80 MG TAB ONE ×2 (18:43→18:44)
--- NOTE | 2019-10-07 20:12 | ER ---
Nurse's Notes [facility] Name: Rosalie Parekh Age: 24 yrs Sex: Female : 1995 Arrival Date: 10/07/2019 Time: 15:39 Bed 30 Private MD: Diagnosis: Dehydration;Gastro-esophageal reflux disease;Diabetes mellitus due to underlying condition with hyperglycemia Presentation: 10/07 15:55 Presenting complaint:. aj1 15:56 Presenting complaint: Patient states: She was discharged from a [facility] in [place] 2 aj1 days ago where she had been admitted for DKA. Since she got home she has had chest pain that she describes as burning and is worse when she eats or swallows. States that she has been taking Tums thinking it was indigestion, with no relief. Transition of care: patient was not received from another setting of care. Onset of symptoms was 2018. Risk Assessment: Do you want to hurt yourself or someone else? Patient reports no desire to harm self or others. Initial Sepsis Screen: Does the patient meet any 2 criteria? No. Patient's initial sepsis screen is negative. Does the patient have a suspected source of infection? No. Patient's initial sepsis screen is negative. Care prior to arrival: None. 15:56 Method Of Arrival: Ambulatory aj1 15:56 Acuity: TANYA 3 aj1 Triage Assessment: 15:59 General: Appears in no apparent distress. comfortable, Behavior is calm, cooperative, aj1 appropriate for age. Pain: Complains of pain in mid-sternal area. Cardiovascular: Patient's skin is warm and dry. 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 - Social history:: Smoking status: Patient uses tobacco products, smokes one-half pack cigarettes per day. - Ebola Screening: : Patient denies travel to an Ebola-affected area in the 21 days before illness onset. Screenin:01 Abuse screen: Denies threats or abuse. Denies injuries from another. Nutritional aj1 screening: No deficits noted. Tuberculosis screening: No symptoms or risk factors identified. 20:53 Fall Risk None identified. aj1 Assessment: 16:01 General: Appears in no apparent distress. comfortable, Behavior is calm, cooperative, aj1 appropriate for age. Pain: Complains of pain in mid-sternal area Pain does not radiate. Pain currently is 5 out of 10 on a pain scale. Quality of pain is described as burning, Pain began 2-3 days ago. Neuro: Level of Consciousness is awake, alert, obeys commands, Oriented to person, place, time, situation. Cardiovascular: Reports chest pain, Denies shortness of breath, Heart tones S1 S2 present Patient's skin is warm and dry. Respiratory: Airway is patent Respiratory effort is even, unlabored, Respiratory pattern is regular, symmetrical. GI: No signs and/or symptoms were reported involving the gastrointestinal system. : No signs and/or symptoms were reported regarding the genitourinary system. EENT: No signs and/or symptoms were reported regarding the EENT system. Derm: No signs and/or symptoms reported regarding the dermatologic system. Skin is pink, warm \T\ dry. normal. Musculoskeletal: No signs and/or symptoms reported regarding the musculoskeletal system. Circulation, motion, and sensation intact. 17:00 Reassessment: Patient appears in no apparent distress at this time. No changes from aj1 previously documented assessment. Patient and/or family updated on plan of care and expected duration. Pain level reassessed. Patient is alert, oriented x 3, equal unlabored respirations, skin warm/dry/pink. Patient states that swallowing the Carafate made her pain worse. Notified Yomaira High NP. Order received. 18:00 Reassessment: Patient appears in no apparent distress at this time. No changes from aj1 previously documented assessment. Patient and/or family updated on plan of care and expected duration. Pain level reassessed. Patient is alert, oriented x 3, equal unlabored respirations, skin warm/dry/pink. Patient states that her pain is less than it was but she can still feel it. 18:29 Reassessment: Patient states that her pain is back now. Notified Yomaira High NP. aj1 19:30 Reassessment: Patient appears in no apparent distress at this time. No changes from aj1 previously documented assessment. Patient and/or family updated on plan of care and expected duration. Pain level reassessed. Patient is alert, oriented x 3, equal unlabored respirations, skin warm/dry/pink. 20:45 Reassessment: Patient appears in no apparent distress at this time. No changes from aj1 previously documented assessment. Patient and/or family updated on plan of care and expected duration. Pain level reassessed. Patient is alert, oriented x 3, equal unlabored respirations, skin warm/dry/pink. Vital Signs: 15:59 BP 130 / 83; Pulse 72; Resp 18; Temp 98.6; Pulse Ox 99% on R/A; Weight 61.69 kg (R); aj1 Height 5 ft. 2 in. (157.48 cm) (R); 17:00 BP 120 / 87; Pulse 75; Resp 18; Pulse Ox 99% on R/A; aj1 18:00 BP 104 / 82; Pulse 68; Resp 18; Pulse Ox 99% on R/A; aj1 19:31 BP 100 / 72; Pulse 70; Resp 18; Pulse Ox 99% on R/A; aj1 20:46 BP 106 / 75; Pulse 72; Resp 18; Pulse Ox 99% on R/A; aj1 15:59 Body Mass Index 24.87 (61.69 kg, 157.48 cm) aj1 ED Course: 15:39 Patient arrived in ED. as 15:42 Ilana High FNP-C [facility]. snw 15:46 Isai Narayanan MD is Attending Physician. snw 15:55 Ofelia Cain, MURTAZA is Primary Nurse. aj1 15:58 Triage completed. aj1 15:59 Arm band placed on. aj1 16:01 Patient has correct armband on for positive identification. media monitor on. Pulse aj1 ox on. NIBP on. 16:01 No provider procedures requiring assistance completed. Patient maintains SpO2 aj1 saturation greater than 95% on room air. 20:46 IV discontinued, intact, bleeding controlled, No redness/swelling at site. Pressure aj1 dressing applied. Administered Medications: 16:45 Drug: CarafATE 1 grams Route: PO; aj1 17:10 Drug: NS 0.9% 1000 ml Route: IV; Rate: 1 bolus; Site: right antecubital; aj1 17:10 Drug: Zofran 4 mg Route: IVP; Site: right antecubital; aj1 17:10 Drug: ProTONIX 40 mg Route: IVP; Site: right antecubital; aj1 18:28 Drug: NS 0.9% 1000 ml Route: IV; Rate: 1 bolus; Site: right antecubital; aj1 18:28 Drug: Potassium Chloride 20 mEq Route: IV; Rate: calculated rate; Site: right aj1 antecubital; 18:44 Drug: Simethicone 240 mg Route: PO; aj1 Outcome: 20:12 Discharge ordered by . clifton 20:46 Discharged to home ambulatory. aj1 20:46 Condition: good 20:46 Discharge instructions given to patient, Instructed on discharge instructions, follow up and referral plans. medication usage, Demonstrated understanding of instructions, follow-up care, medications, Prescriptions given X 2. 20:53 Patient left the ED. aj1 Signatures: Ofelia Cain RN RN aj1 Ilana High, [employer] GRADE TEACHER-C [employer] GRADE TEACHER-Csnw Ada Boo as
--- NOTE | 2019-10-07 20:13 | EDPHYS ---
Physician Documentation [facility] Name: Rosalie Parekh Age: 24 yrs Sex: Female : 1995 Arrival Date: 10/07/2019 Time: 15:39 Bed 30 Private MD: ED Physician Isai Narayanan HPI: 10/07 16:10 This 24 yrs old Female presents to ER via Ambulatory with complaints of Chest snw Pain. 16:10 Onset: The symptoms/episode began/occurred suddenly. Associated signs and symptoms: snw Pertinent positives: pt recently hospitalized for DKA, burning in chest since. Modifying factors: The patient symptoms are alleviated by nothing. The patient has experienced a previous episode. as noted. 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 - Social history:: Smoking status: Patient uses tobacco products, smokes one-half pack cigarettes per day. - Ebola Screening: : Patient denies travel to an Ebola-affected area in the 21 days before illness onset. ROS: 16:09 Constitutional: Negative for fever, chills, and weight loss, Eyes: Negative for injury, snw pain, redness, and discharge, ENT: Negative for injury, pain, and discharge, Neck: Negative for injury, pain, and swelling, Respiratory: Negative for shortness of breath, cough, wheezing, and pleuritic chest pain, Back: Negative for injury and pain, : Negative for injury, bleeding, discharge, and swelling, MS/Extremity: Negative for injury and deformity, Skin: Negative for injury, rash, and discoloration, Neuro: Negative for headache, weakness, numbness, tingling, and seizure, Psych: Negative for depression, anxiety, suicide ideation, homicidal ideation, and hallucinations. 16:09 Cardiovascular: Positive for chest pain, of the xyphoid area. 16:09 Abdomen/GI: Positive for nausea and vomiting. Exam: 16:08 Head/Face: Normocephalic, atraumatic. Eyes: Pupils equal round and reactive to light, snw extra-ocular motions intact. Lids and lashes normal. Conjunctiva and sclera are non-icteric and not injected. Cornea within normal limits. Periorbital areas with no swelling, redness, or edema. ENT: Nares patent. No nasal discharge, no septal abnormalities noted. Tympanic membranes are normal and external auditory canals are clear. Oropharynx with no redness, swelling, or masses, exudates, or evidence of obstruction, uvula midline. Mucous membranes moist. Neck: Trachea midline, no thyromegaly or masses palpated, and no cervical lymphadenopathy. Supple, full range of motion without nuchal rigidity, or vertebral point tenderness. No Meningismus. Chest/axilla: Normal chest wall appearance and motion. Nontender with no deformity. No lesions are appreciated. Cardiovascular: Regular rate and rhythm with a normal S1 and S2. No gallops, murmurs, or rubs. Normal PMI, no JVD. No pulse deficits. Respiratory: Lungs have equal breath sounds bilaterally, clear to auscultation and percussion. No rales, rhonchi or wheezes noted. No increased work of breathing, no retractions or nasal flaring. 16:08 Back: No spinal tenderness. No costovertebral tenderness. Full range of motion. Skin: Warm, dry with normal turgor. Normal color with no rashes, no lesions, and no evidence of cellulitis. MS/ Extremity: Pulses equal, no cyanosis. Neurovascular intact. Full, normal range of motion. Neuro: Awake and alert, GCS 15, oriented to person, place, time, and situation. Cranial nerves II-XII grossly intact. Motor strength 5/5 in all extremities. Sensory grossly intact. Cerebellar exam normal. Normal gait. Psych: Awake, alert, with orientation to person, place and time. Behavior, mood, and affect are within normal limits. 16:08 Constitutional: The patient appears awake, anxious. 16:08 Abdomen/GI: Inspection: abdomen appears normal, Bowel sounds: diminished, in all quadrants, Palpation: abdomen is soft and non-tender. Vital Signs: 15:59 BP 130 / 83; Pulse 72; Resp 18; Temp 98.6; Pulse Ox 99% on R/A; Weight 61.69 kg (R); aj1 Height 5 ft. 2 in. (157.48 cm) (R); 17:00 BP 120 / 87; Pulse 75; Resp 18; Pulse Ox 99% on R/A; aj1 18:00 BP 104 / 82; Pulse 68; Resp 18; Pulse Ox 99% on R/A; aj1 19:31 BP 100 / 72; Pulse 70; Resp 18; Pulse Ox 99% on R/A; aj1 20:46 BP 106 / 75; Pulse 72; Resp 18; Pulse Ox 99% on R/A; aj1 15:59 Body Mass Index 24.87 (61.69 kg, 157.48 cm) aj MDM: 15:51 Patient medically screened. snw 20:15 Data reviewed: vital signs, nurses notes. Data interpreted: Pulse oximetry: on room air snw is 99 %. Interpretation: normal. Counseling: I had a detailed discussion with the patient and/or guardian regarding: the historical points, exam findings, and any diagnostic results supporting the discharge/admit diagnosis, lab results, the need for outpatient follow up, to return to the emergency department if symptoms worsen or persist or if there are any questions or concerns that arise at home. Response to treatment: the patient's symptoms have markedly improved after treatment. Special discussion: Based on the patient's history, exam, and Dx evaluation, there is no indication for emergent intervention or inpatient Tx. It is understood by the patient/guardian that if the Sx's persist or worsen they need to return immediately for re-evaluation. Based on the patient's Hx, exam, and Dx evaluation, there is no indication for emergent surgery or inpatient Tx. It is understood by the patient/guardian that if the Sx's persist or worsen they need to return immediately for re-evaluation. Based on the history and exam findings, there is no indication for further emergent testing or inpatient evaluation. I discussed with the patient/guardian the need to see the primary care provider for further evaluation of the symptoms. 10/07 15:56 Order name: Basic Metabolic Panel; Complete Time: 18:04 snw 10/07 15:56 Order name: CBC with Diff; Complete Time: 17:20 snw 10/07 15:56 Order name: Hepatic Function; Complete Time: 18:04 snw 10/07 15:56 Order name: Lipase; Complete Time: 18:04 snw 10/07 16:09 Order name: Urine Culture snw 10/07 16:09 Order name: Urine Microscopic Only; Complete Time: 18:37 snw 10/07 17:20 Order name: Glucose, Ancillary Testing; Complete Time: 17:21 EDMS 10/07 17:20 Order name: Urine Dipstick--Ancillary (enter results); Complete Time: 17:39 em1 10/07 17:20 Order name: Urine --Ancillary (enter results); Complete Time: 17:39 em1 10/07 15:56 Order name: IV Saline Lock; Complete Time: 17:20 snw 10/07 15:56 Order name: Labs collected and sent; Complete Time: 17:20 snw 10/07 15:56 Order name: FSBS; Complete Time: 17:10 snw 10/07 16:09 Order name: Urine Test (obtain specimen); Complete Time: 17:18 snw 10/07 16:09 Order name: Urine Dipstick-Ancillary (obtain specimen); Complete Time: 17:18 snw Administered Medications: 16:45 Drug: CarafATE 1 grams Route: PO; aj1 17:10 Drug: NS 0.9% 1000 ml Route: IV; Rate: 1 bolus; Site: right antecubital; aj1 17:10 Drug: Zofran 4 mg Route: IVP; Site: right antecubital; aj1 17:10 Drug: ProTONIX 40 mg Route: IVP; Site: right antecubital; aj 18:28 Drug: NS 0.9% 1000 ml Route: IV; Rate: 1 bolus; Site: right antecubital; aj 18:28 Drug: Potassium Chloride 20 mEq Route: IV; Rate: calculated rate; Site: right [facility] antecubital; 18:44 Drug: Simethicone 240 mg Route: PO; aj1 Disposition: 10/07/19 20:12 Discharged to Home. Impression: Dehydration, Gastro-esophageal reflux disease, Diabetes mellitus due to underlying condition with hyperglycemia. - Condition is Stable. - Discharge Instructions: Dehydration, Adult, Diabetes and Sick Day Management, Gastroesophageal Reflux Disease, Adult, Hyponatremia, Form - Daily Diabetes Record, How and Where to Give Subcutaneous Insulin Injections, Child, Blood Glucose Monitoring, Adult, Rehydration, Adult. - Prescriptions for Nexium 20 mg Oral Capsule - take 1 capsule by ORAL route once daily; 20 capsule. Carafate 1 gram Oral Tablet - take 1 tablet by ORAL route 4 times per day take on an empty stomach, beginning on waking and last dose at bedtime; 100 tablet. - Work release form, Medication Reconciliation Form, Thank You Letter, Antibiotic Education, Prescription Opioid Use form. - Follow up: Private Physician; When: 2 - 3 days; Reason: Recheck today's complaints, Continuance of care, Re-evaluation by your physician. Follow up: Emergency Department; When: As needed; Reason: Worsening of condition. Addendum: 10/11/2019 07:26 Co-signature as Attending Physician, Isai Narayanan MD. r n Signatures: Dispatcher [employer] EDMS Ofelia Cain RN RN aj1 Ilana High, MUD WORKER-C MUD WORKER-Csnw Isai Narayanan MD MD furniture dipper: (The following items were deleted from the chart) 10/07 20:53 20:12 10/07/2019 20:12 Discharged to Home. Impression: Dehydration; Gastro-esophageal aj1 reflux disease; Diabetes mellitus due to underlying condition with hyperglycemia. Condition is Stable. Forms are Medication Reconciliation Form, Thank You Letter, Antibiotic Education, Prescription Opioid Use. Follow up: Private Physician; When: 2 - 3 days; Reason: Recheck today's complaints, Continuance of care, Re-evaluation by your physician. Follow up: Emergency Department; When: As needed; Reason: Worsening of condition. snw
[2019-10-07 22:52] VITALS: TEMP 98.6; O2SAT 99
[2019-10-07 22:58] VITALS: BP 106/75
== END 2019-10-07 20:53 | disposition home or self-care (01) ==
LOC: ER 15:37
DX: E86.0 Dehydration (principal); K21.9 Gastro-esophageal reflux disease without esophagitis; E11.65 Type 2 diabetes mellitus with hyperglycemia; F17.210 Nicotine dependence, cigarettes, uncomplicated; Z79.4 Long term (current) use of insulin
CPT/HCPCS: 87088; 85025; 87086; 80048; 36415; 81025; 82947; 80076; 83690; 96375; 96374; 99284; C9113; J7030 ×2; J2405; 81003; 81015

== ENCOUNTER 2021-02-22 22:18 | Inpatient (IN) | payer OTHER, SELFPAY ==
--- OUTSIDE RECORDS SUMMARY | 2021-02-22 22:23 | XMS REPORT | Continuity of Care Document ---
:1995 Author Organization [facility] t Address [address] [place] [address] Care Team Providers Name Role Phone Jarad JOHANSEN Attending Clinician Payers Payer Name Policy Type Policy Number Effective Date Expiration Date S ource Problems This patient has no known problems. Allergies, Adverse Reactions, Alerts Allergy Allergy Status Severity Reaction(s) Onset Inactive Treating Comm ents Source Name Type Date Date Clinician No Known DA Active U [facility] 11-22 [facility] 00:00: [address] No Known DA Active U 2019-11 [facility] 11-28 [facility] 00:00: [address] No Known DA Active U 2019-11 [facility] 0-03 [facility] 00:00: [address] Medications This patient has no known medications. Procedures This patient has no known procedures. Encounters Start End Encounter Admission Attending Care Care Encounter Source Date/Time Date/Time Type Type Clinicians Facility Department ID 2020-09-20 2020-09-20 RefRADHA Beltran [id number] 00:00:00 00:00:00 Constanza Duval [id number] Marlen [id number] Pro[facility] [phone] [facility] 2020-07-16 2020-07-16 RADHA Pulliam [id number] 00:00:00 00:00:00 Constanza Duval [id number] Mar[place] [id number] [phone] [address] Results Test Description Test Time Test Comments Results Result Comments Source PLACENTA THIRD TRIMESTER 2020-12-07 11:28:00 Test Item Value Reference Range Interpretation Comme nts PLACENTA RUN DATE: THIRD 12/07/20 [facility] PAGE 1 RUN TIME: 1403 TRIMESTER Specimen Inquiry RUN USER: INTERFACE (test code = PLACIII) PATIENT: TASHI MOSQUERA LOC: MICHAEL U #: [id number] AGE/SX: / ROOM: 1929 RE11/29/20REG DR: Natalie Garcia MD : 94 BED: A DIS: 12/03/20 STATUS: DIS IN TLOC: SPEC #: [id number] RECD: STATUS: REKHA KO #: [id number] THERESE: 11/30/20- SUBM DR: Natalie Garcia MD ENTERED: 12/01/20 SP TYPE: PLACIII OTHR DR: ORDERED: LEVEL V SURGICA CODES: [id number] - PLACENTA, NOS PROCEDURES: LEVEL V SURGICA (Incomplete) TISSUES: PLACENTA, NOS - PLACENTA CLINICAL HISTORY 25 year old, 36.4 weeks, , sectio n, diabetes type 1 - insulin, prematurity <37 weeks, nonreassuring monitoring (nneka) FIN AL DIAGNOSIS Placenta, section: - placenta with third trimester morphology (590 gm s), mean placental weight at 31 weeks - 314 gms (placenta is very large for dates, greater pancho n the 97th percentile) - accelerated villous maturation with multifocal increase in the s yncytial knots, suggestive of hypoperfusion - few foci of villous stromal karyorrhexis - focal chorangiosis - trivascular umbilical cord and membranes - free of inflamma tion COMMENT: The presence of accelerated villous maturation and increased syncytial knots together suggest a component of maternal vascular malperfusion. Pathologic features of utero placental malperfusion can be seen in maternal conditions with a component of vascular disease (preecla mpsia, hypertension, diabetes mellitus, and autoimmunity). There can be an increased risk for recurr ence in future pregnancies. CPT: 97934 pkg/wpd GROSS DESCRIPTION The specimen was received in a container, labeled with the patient's name, unit number and designated "placenta". The following attributes are observed: Cord insertion: 1 cm from margin CONTINUED ON NEXT PAGE RUN DATE: 12/07/20 [facility] PAGE 2 RUN TIME: 1403 Specimen Inquiry RUN USER: INTERFACE SPEC #: [id number] PATIENT: TASHI MOSQUERA #[id number] (Continued) GROSS DESCRIPTION (Continued) Cord length: 30 cm Number of vessels: 3 Cord color: Patterson-white Other cord findings: None surface f indings: Blue-purple, wrinkled, glistening with focal subchorionic fibrin depositio n Vasculature: Unremarkable vasculature M embranes rupture site: 1 cm to margin Membrane color: Patterson-pink Other me mbrane findings: Semi-translucent and circummarginate The trimmed placental weight: 590 gm Disk measurement: 17 x 16 x 4 cm in greatest dimension Accessory lobes: None Maternal surface: Lobulated and focally disrupted, completen ess cannot be determined Parenchyma: Red-br own and spongy Parenchyma lesions: None Cassettes: A1 through A4 nz/wpd 12/01/20 MICROSCOPIC DESCRIPTION The placenta is composed of small vascular v illi which are smaller and more mature appearing than expected for the given gestational age. Mult ifocal increase in the syncytial knots is present. The trivascular umbilical cord and mem branes are free of inflammation. Scattered calcifications are identified. pkg/wpd Signed Olive Barone 12/07/20 1128 END OF REPO RT [id number] 11:58:00 Test Item Value Reference Range Interpretation Comments GLUBED (test code = GLUBED) 71 mg/dL 65-110 N [id number] 06:51:00 Test Item Value Reference Range Interpretation Comments GLUBED (test code = GLUBED) 80 mg/dL 65-110 N [id number] 21:24:00 Test Item Value Reference Range Interpretation Comments GLUBED (test code = GLUBED) 103 mg/dL 65-110 N [id number] 15:15:00 Test Item Value Reference Range Interpretation Comments GLUBED (test code = GLUBED) 206 mg/dL 65-110 H [id number] 09:56:00 Test Item Value Reference Range Interpretation Comments GLUBED (test code = GLUBED) 200 mg/dL 65-110 H [id number] 06:48:00 Test Item Value Reference Range Interpretation Comments GLUBED (test code = GLUBED) 64 mg/dL 65-110 L [id number] 21:12:00 Test Item Value Reference Range Interpretation Comments GLUBED (test code = GLUBED) 186 mg/dL 65-110 H [id number] 14:15:00 Test Item Value Reference Range Interpretation Comments GLUBED (test code = GLUBED) 177 mg/dL 65-110 H [id number] 10:42:00 Test Item Value Reference Range Interpretation Comments GLUBED (test code = GLUBED) 242 mg/dL 65-110 H HGB [id number] 08:21:00 Test Item Value Reference Range Interpretation Comments HEMOGLOBIN (test code = HGB) 11.7 g/dL 10.7-13.9 N HEMATOCRIT (test code = HCT) 36.4 % 32.1-42.1 N [id number] 06:49:00 Test Item Value Reference Range Interpretation Comments GLUBED (test code = GLUBED) 115 mg/dL 65-110 H [id number] 22:46:00 Test Item Value Reference Range Interpretation Comments GLUBED (test code = GLUBED) 129 mg/dL 65-110 H [id number] 19:28:00 Test Item Value Reference Range Interpretation Comments GLUBED (test code = GLUBED) 221 mg/dL 65-110 H [id number] 17:42:00 Test Item Value Reference Range Interpretation Comments GLUBED (test code = GLUBED) 359 mg/dL 65-110 H [id number] 10:51:00 Test Item Value Reference Range Interpretation Comments GLUBED (test code = GLUBED) 126 mg/dL 65-110 H ARTERIAL BLOOD [id number] 10:01:00 Test Item Value Reference Range Interpretation Comments ARTERIAL BLOOD GAS PH (test code = 7.237 7.35-7.45 L PHA) ARTERIAL BLOOD GAS PCO2 (test code 59.8 mmHg 35-45 H = PCO2A) ARTERIAL BLOOD GAS PO2 (test code 14.8 mmHg 80-100 LL = PO2A) BICARBONATE TOTAL HCO3 (test code 24.9 meq/L 22-26 N = HCO3) BASE EXCESS (test code = YADY) -3.7 -2.0-+2.0 L ABG TYPE (test code = TYPEA) Arterial FIO2 (test code = FIO2A) 21.0 % PaO2/[id number] 10:01:00 Test Item Value Reference Range Interpretation Comments PaO2/FiO2 (test code = XTZ7ZWY3) mm/Hg ARTERIAL BLOOD [id number] 10:01:00 Test Item Value Reference Range Interpretation Comments ARTERIAL BLOOD GAS PH (test code = 7.237 7.35-7.45 L PHA) ARTERIAL BLOOD GAS PCO2 (test code 59.8 mmHg 35-45 H = PCO2A) ARTERIAL BLOOD GAS PO2 (test code 14.8 mmHg 80-100 LL = PO2A) BICARBONATE TOTAL HCO3 (test code 24.9 meq/L 22-26 N = HCO3) BASE EXCESS (test code = YADY) -3.7 -2.0-+2.0 L ABG TYPE (test code = TYPEA) Arterial FIO2 (test code = FIO2A) 21.0 % PaO2/[id number] 10:01:00 Test Item Value Reference Range Interpretation Comments PaO2/FiO2 (test code = QCK8SIG9) 70.40 mm/Hg CAPILLARY BLOOD [id number] 10:00:00 Test Item Value Reference Range Interpretation Comments CAPILLARY BLOOD GAS PH (test code 7.329 7.35-7.45 L = PHC) CAPILLARY BLOOD GAS PCO2 (test 45.5 mmHg code = PCO2C) CAPILLARY BLOOD GAS PO2 (test code 20.6 mmHg = PO2C) CBG HCO3 (test code = HCO3C) 23.4 meq/L CBG BASE EXCESS (test code = BEC) -2.7 CBG O2 SATURATION (test code = 30.3 % SATC) CAPILLARY BLOOD GAS TYPE (test CBLV code = TYPEC) CAPILLARY BLOOD GAS FIO2 (test 21.0 % code = FIO2C) [id number] 06:32:00 Test Item Value Reference Range Interpretation Comments GLUBED (test code = GLUBED) 183 mg/dL 65-110 H [id number] 02:15:00 Test Item Value Reference Range Interpretation Comments GLUBED (test code = GLUBED) 82 mg/dL 65-110 N [id number] 22:52:00 Test Item Value Reference Range Interpretation Comments GLUBED (test code = GLUBED) 200 mg/dL 65-110 H AG HEPATITIS B [id number] 22:46:00 Test Item Value Reference Range Interpretation Comments AG HEPATITIS B SURFACE (test code NONREACTIVE NONREACTIVE = HBSAG) IS CONSENT FORM SIGNED FOR HIV TESTING? YAB HEPATITIS C [id number] 22:46:00 Test Item Value Reference Range Interpretation Comments AB HEPATITIS C (test code = NONREACTIVE NONREACTIVE HCVAB) SIGNAL TO CUTOFF (test code = 0.03 <0.80 N CUTOFF) IS CONSENT FORM SIGNED FOR HIV TESTING? YAB [id number] 22:46:00 Test Item Value Reference Range Interpretation Comments AB TREPONEMA (test code = TREPAB) NONREACTIVE NONREACTIVE IS CONSENT FORM SIGNED FOR HIV TESTING? YAB HIV 1 22:46:00 Test Item Value Reference Range Interpretation Comments AB HIV 1 2 (test NONREACTIVE NONREACTIVE Done by Jared Dugan code = [id number]) 4th Gen HIV Ag/Ab Combo Screen IS CONSENT FORM SIGNED FOR HIV TESTING? YAG HEPATITIS B [id number] 22:16:00 Test Item Value Reference Range Interpretation Comments AG HEPATITIS B SURFACE (test code NONREACTIVE NONREACTIVE = HBSAG) IS CONSENT FORM SIGNED FOR HIV TESTING? YAB HEPATITIS C [id number] 22:16:00 Test Item Value Reference Range Interpretation Comments AB HEPATITIS C (test code = HCVAB) NONREACTIVE SIGNAL TO CUTOFF (test code = CUTOFF) <0.80 IS CONSENT FORM SIGNED FOR HIV TESTING? YAB [id number] 22:16:00 Test Item Value Reference Range Interpretation Comments AB TREPONEMA (test code = TREPAB) NONREACTIVE NONREACTIVE IS CONSENT FORM SIGNED FOR HIV TESTING? YAB HIV 1 22:16:00 Test Item Value Reference Range Interpretation Comments AB HIV 1 2 (test code = [id number]) NONREACTIVE IS CONSENT FORM SIGNED FOR HIV TESTING? YCBC W/AUTO [id number] 21:47:00 Test Item Value Reference Range Interpretation Comments WHITE BLOOD CELL (test code = WBC) 9.2 K/mm3 6.6-12.1 N RED BLOOD CELL (test code = RBC) 3.96 M/mm3 3.45-5.01 N HEMOGLOBIN (test code = HGB) 11.9 g/dL 10.7-13.9 N HEMATOCRIT (test code = HCT) 36.3 % 32.1-42.1 N MEAN CELL VOLUME (test code = MCV) 92 fL 84.1-94.8 N MEAN CELL HGB (test code = MCH) 30.1 pg 27-35 N MEAN CELL HGB CONCETRATION (test 32.8 gm/dL 32.2-34.1 N code = MCHC) RED CELL DISTRIBUTION WIDTH (test 12.7 % 12.4-16.5 N code = RDW) PLATELET COUNT (test code = PLT) 287 K/mm3 133-385 N MEAN PLATELET VOLUME (test code = 9.8 fl 9.1-12.7 N MPV) NEUTROPHIL % (test code = NT%) 73.8 % 56.5-79.4 N LYMPHOCYTE % (test code = LY%) 18.9 % 14.3-34.3 N MONOCYTE % (test code = MO%) 5.4 % 5.1-10.4 N EOSINOPHIL % (test code = EO%) 1.4 % 0.1-3.0 N BASOPHIL % (test code = BA%) 0.1 % 0.1-1.0 N NEUTROPHIL # (test code = NT#) 6.8 K/mm3 LYMPHOCYTE # (test code = LY#) 1.8 K/mm3 MONOCYTE # (test code = MO#) 0.5 K/mm3 EOSINOPHIL # (test code = EO#) 0.13 K/mm3 BASOPHIL # (test code = BA#) 0.0 K/mm3 RBC MORPHOLOGY REQUIRED (test code NORMAL NORMAL = RBCM) PLATELET MORPHOLOGY REQUIRED (test NORMAL NORMAL code = PLTMR) COVID 19 Asymptomatic IH [id number] 21:44:00 Test Item Value Reference Range Interpretation Comments COVID 19 NEGATIVE NEGATIVE This test has b een Asymptomatic IH AG authorize d only for the (test code = detection ofpro teins from COVNONPUIAG) SARS-CoV-2, not for any other viruses orpathogens. N egative results should be treated as presumptive andconfirmed wi th a molecular assay , if necessary for patientmanageme nt. Negative result s do not rule out COVID- 19 andshould not b e used as the sole basis for treatment orpat ient management deci sions, including infec tion controldecision s. Negative result s should be considered i n thecontext of a patient's recent exposure s, history and thepresence of clinical signs and symptoms consis tent withCOVID-19. T his test has not been FD A cleared or approved; th e test hasbeen authori zed by FDA under an Emerge ncy Use Authorization(E UA) for use by laborato nancy certified under the CLIA thatmeet the re quirements to perform mode rate, high or waivedcomple xity tests. This shaquille t is authorized for use at thePoint of Car e (POC), i.e., in patien t care settingsoperati ng under a CLIA Certificat e of Waiver, Certifi katie ofCompliance, o r Certificate of Accreditation. This test is only authori zed for the duration of thedeclaration that circumstances e xist justifying theauthorizatio n of emergency use o f in vitro diagnostic test sfor detection and/o r diagnosis of CO VID-19 under Odqahpb03 4(b)(1) of the Act, 21 U.S .C. 360bbb-3(b)(1), unless theauthorizatio n is terminated or r evoked sooner. [id number] 10:30:00 Test Item Value Reference Range Interpretation Comments GLUBED (test code = GLUBED) 105 mg/dL 65-110 N [id number] 06:29:00 Test Item Value Reference Range Interpretation Comments GLUBED (test code = GLUBED) 126 mg/dL 65-110 H [id number] 01:02:00 Test Item Value Reference Range Interpretation Comments GLUBED (test code = GLUBED) 72 mg/dL 65-110 N [id number] 20:42:00 Test Item Value Reference Range Interpretation Comments GLUBED (test code = GLUBED) 88 mg/dL 65-110 N [id number] 14:39:00 Test Item Value Reference Range Interpretation Comments GLUBED (test code = GLUBED) 149 mg/dL 65-110 H [id number] 11:20:00 Test Item Value Reference Range Interpretation Comments GLUBED (test code = GLUBED) 74 mg/dL 65-110 N [id number] 06:28:00 Test Item Value Reference Range Interpretation Comments GLUBED (test code = GLUBED) 103 mg/dL 65-110 N [id number] 06:28:00 Test Item Value Reference Range Interpretation Comments GLUBED (test code = GLUBED) 76 mg/dL 65-110 N [id number] 22:06:00 Test Item Value Reference Range Interpretation Comments GLUBED (test code = GLUBED) 78 mg/dL 65-110 N [id number] 16:07:00 Test Item Value Reference Range Interpretation Comments GLUBED (test code = GLUBED) 167 mg/dL 65-110 H [id number] 10:42:00 Test Item Value Reference Range Interpretation Comments GLUBED (test code = GLUBED) 130 mg/dL 65-110 H [id number] 04:47:00 Test Item Value Reference Range Interpretation Comments GLUBED (test code = GLUBED) 78 mg/dL 65-110 N [id number] 20:47:00 Test Item Value Reference Range Interpretation Comments GLUBED (test code = GLUBED) 160 mg/dL 65-110 H [id number] 14:52:00 Test Item Value Reference Range Interpretation Comments GLUBED (test code = GLUBED) 235 mg/dL 65-110 H [id number] 10:54:00 Test Item Value Reference Range Interpretation Comments GLUBED (test code = GLUBED) 148 mg/dL 65-110 H [id number] 07:01:00 Test Item Value Reference Range Interpretation Comments GLUBED (test code = GLUBED) 82 mg/dL 65-110 N [id number] 06:05:00 Test Item Value Reference Range Interpretation Comments GLUBED (test code = GLUBED) 61 mg/dL 65-110 L [id number] 20:39:00 Test Item Value Reference Range Interpretation Comments GLUBED (test code = GLUBED) 312 mg/dL 65-110 H GLYCOSYLATED HEMOGLOBIN [id number] 17:32:00 Test Item Value Reference Range Interpretation Comments GLYCOSYLATED 11.4 % 4.8-5.9 H Any condition t hat HEMOGLOBIN (HA1C) shortens e rythocyte (test code = survival or dec reasesmean GLYHGB) erythrocyte age (e.g., recovery from a cute blood loss,hemolytic anemia) will falsely lo wer HGBA1c resultsregardle ss of the method used. H GBA1c results from nicole oyung HbSS, HbCC, and HbSc must be interpreted with cautiongiven th e pathological pr ocesses, including anemia,increase d red cell turnover, trans fusion requirements, thatadversely i mpact HGBA1c as a mar ker of long-term glycemiccontrol . Alternative for ms of testing such as fructosaminesho uld be considered for these patients. MEAN BLOOD GLUCOSE 280 MG/DL 70-110 H (test code = MBG) COMPREHENSIVE METABOLIC [id number] 17:32:00 Test Item Value Reference Range Interpretation Comments SODIUM (test code = NA) 132 mEq/L 135-145 L POTASSIUM (test code = K) 4.1 mEq/L 3.5-5.0 N CHLORIDE (test code = CL) 97 mEq/L 100-115 L CARBON DIOXIDE (test code = CO2) 25 mEq/L 22-31 N ANION GAP (test code = GAP) 14.50 10-20 N GLUCOSE (test code = GLU) 318 mg/dL 65-110 H BLOOD UREA NITROGEN (test code = 13 mg/dL 7-18 N BUN) GLOMERULAR FILTRATION RATE (test 101 ml/min >60 N code = GFR) CREATININE (test code = CREAT) 0.7 mg/dL 0.5-1.0 N TOTAL PROTEIN (test code = PROT) 7.3 gm/dL 6.3-8.2 N ALBUMIN (test code = ALB) 2.9 gm/dL 3.4-4.8 L CALCIUM (test code = CA) 8.2 mg/dL 8.4-10.2 L BILIRUBIN TOTAL (test code = BILT) 0.4 mg/dL 0.2-1.0 N SGOT/AST (test code = AST) 12 units/L 15-37 L SGPT/ALT (test code = ALT) 18 units/L 12-78 N ALKALINE PHOSPHATASE TOTAL (test 87 units/L 46-116 N code = ALKP) GLYCOSYLATED HEMOGLOBIN (HA1C)2020-11-22 17:32:00 Test Item Value Reference Range Interpretation Comments GLYCOSYLATED 11.4 % 4.8-5.9 H Any condition t hat HEMOGLOBIN (HA1C) shortens e rythocyte (test code = GLYHGB) surviva l or decreasesmean erythrocyte age (e.g., recovery from a cute blood loss,hemolytic anemia) will falsely lo wer HGBA1c resultsregardle ss of the method used. H GBA1c results from nicole young HbSS, HbCC, and HbSc must be interpreted with cautiongiven th e pathological pr ocesses, including anemi a,increased red cell turnov er, transfusion req uirements, thatadversely i mpact HGBA1c as a mar ker of long-term glyce miccontrol. Alternative for ms of testing such as fructosaminesho uld be considered for these patients. AG HEPATITIS B [id number] 15:30:00 Test Item Value Reference Range Interpretation Comments AG HEPATITIS B SURFACE (test code NONREACTIVE NONREACTIVE = HBSAG) IS CONSENT FORM SIGNED FOR HIV TESTING? YAB HEPATITIS C [id number] 15:30:00 Test Item Value Reference Range Interpretation Comments AB HEPATITIS C (test code = NONREACTIVE NONREACTIVE HCVAB) SIGNAL TO CUTOFF (test code = 0.02 <0.80 N CUTOFF) IS CONSENT FORM SIGNED FOR HIV TESTING? YAB [id number] 15:30:00 Test Item Value Reference Range Interpretation Comments AB TREPONEMA (test code = TREPAB) NONREACTIVE NONREACTIVE IS CONSENT FORM SIGNED FOR HIV TESTING? YAB HIV 1 15:30:00 Test Item Value Reference Range Interpretation Comments AB HIV 1 2 (test NONREACTIVE NONREACTIVE Done by Jared Dugan code = [id number]) 4th Gen HIV Ag/Ab Combo Screen IS CONSENT FORM SIGNED FOR HIV TESTING? [id number] 15:23:00 Test Item Value Reference Range Interpretation Comments GLUBED (test code = GLUBED) 266 mg/dL 65-110 H COVID 19 Asymptomatic IH [id number] 15:16:00 Test Item Value Reference Range Interpretation Comments COVID 19 NEGATIVE NEGATIVE This test has b een Asymptomatic IH AG authorize d only for the (test code = detection ofpro teins from COVNONPUIAG) SARS-CoV-2, not for any other viruses orpathogens. N egative results should be treated as presumptive andconfirmed wi th a molecular assay , if necessary for patientmanageme nt. Negative result s do not rule out COVID- 19 andshould not b e used as the sole basis for treatment orpat ient management deci sions, including infec tion controldecision s. Negative result s should be considered i n thecontext of a patient's recent exposure s, history and thepresence of clinical signs and symptoms consis tent withCOVID-19. T his test has not been FD A cleared or approved; th e test hasbeen authori zed by FDA under an Emerge ncy Use Authorization(E UA) for use by marcus cruz certified under the CLIA thatmeet the re quirements to perform mode rate, high or waivedcomple xity tests. This shaquille t is authorized for use at thePoint of Car e (POC), i.e., in patien t care settingsoperati ng under a CLIA Certificat e of Waiver, Certifi katie ofCompliance, o r Certificate of Accreditation. This test is only authori zejaquelin for the duration of thedeclaration that circumstances e xist justifying theauthorizatio n of emergency use o f in vitro diagnostic test sfor detection and/o r diagnosis of CO VID-19 under Avzbbww25 4(b)(1) of the Act, 21 U.S .C. 360bbb-3(b)(1), unless theauthorizatio n is terminated or r evoked sooner. AG HEPATITIS B [id number] 15:08:00 Test Item Value Reference Range Interpretation Comments AG HEPATITIS B SURFACE (test code NONREACTIVE NONREACTIVE = HBSAG) IS CONSENT FORM SIGNED FOR HIV TESTING? YAB HEPATITIS C [id number] 15:08:00 Test Item Value Reference Range Interpretation Comments AB HEPATITIS C (test code = HCVAB) NONREACTIVE SIGNAL TO CUTOFF (test code = CUTOFF) <0.80 IS CONSENT FORM SIGNED FOR HIV TESTING? YAB [id number] 15:08:00 Test Item Value Reference Range Interpretation Comments AB TREPONEMA (test code = TREPAB) NONREACTIVE NONREACTIVE IS CONSENT FORM SIGNED FOR HIV TESTING? YAB HIV 1 15:08:00 Test Item Value Reference Range Interpretation Comments AB HIV 1 2 (test code = [id number]) NONREACTIVE IS CONSENT FORM SIGNED FOR HIV TESTING? YUR PROTEIN/CREATININE [id number] 14:46:00 Test Item Value Reference Range Interpretation Comments UR PROTEIN RANDOM (test code = 11.5 mg/dL PROTU) UR CREATININE RANDOM (test 24.6 mg/dL code = CREATU) PROTEIN/CREATININE RATIO (test 460.0 mg/gcrea <200 H code = P/CRATIO) COMPREHENSIVE METABOLIC [id number] 14:38:00 Test Item Value Reference Range Interpretation Comments SODIUM (test code = NA) 132 mEq/L 135-145 L POTASSIUM (test code = K) 4.1 mEq/L 3.5-5.0 N CHLORIDE (test code = CL) 97 mEq/L 100-115 L CARBON DIOXIDE (test code = CO2) 25 mEq/L 22-31 N ANION GAP (test code = GAP) 14.50 10-20 N GLUCOSE (test code = GLU) 318 mg/dL 65-110 H BLOOD UREA NITROGEN (test code = 13 mg/dL 7-18 N BUN) GLOMERULAR FILTRATION RATE (test 101 ml/min >60 N code = GFR) CREATININE (test code = CREAT) 0.7 mg/dL 0.5-1.0 N TOTAL PROTEIN (test code = PROT) 7.3 gm/dL 6.3-8.2 N ALBUMIN (test code = ALB) 2.9 gm/dL 3.4-4.8 L CALCIUM (test code = CA) 8.2 mg/dL 8.4-10.2 L BILIRUBIN TOTAL (test code = BILT) 0.4 mg/dL 0.2-1.0 N SGOT/AST (test code = AST) 12 units/L 15-37 L SGPT/ALT (test code = ALT) 18 units/L 12-78 N ALKALINE PHOSPHATASE TOTAL (test 87 units/L 46-116 N code = ALKP) GLYCOSYLATED HEMOGLOBIN (HA1C)2020-11-22 14:38:00 Test Item Value Reference Range Interpretation Comments GLYCOSYLATED HEMOGLOBIN (HA1C) (test code = GLYHGB) CBC W/AUTO [id number] 14:26:00 Test Item Value Reference Range Interpretation Comments WHITE BLOOD CELL (test code = WBC) 6.9 K/mm3 6.6-12.1 N RED BLOOD CELL (test code = RBC) 4.38 M/mm3 3.45-5.01 N HEMOGLOBIN (test code = HGB) 13.2 g/dL 10.7-13.9 N HEMATOCRIT (test code = HCT) 39.9 % 32.1-42.1 N MEAN CELL VOLUME (test code = MCV) 91 fL 84.1-94.8 N MEAN CELL HGB (test code = MCH) 30.1 pg 27-35 N MEAN CELL HGB CONCETRATION (test 33.1 gm/dL 32.2-34.1 N code = MCHC) RED CELL DISTRIBUTION WIDTH (test 12.8 % 12.4-16.5 N code = RDW) PLATELET COUNT (test code = PLT) 300 K/mm3 133-385 N MEAN PLATELET VOLUME (test code = 9.8 fl 9.1-12.7 N MPV) NEUTROPHIL % (test code = NT%) 72.3 % 56.5-79.4 N LYMPHOCYTE % (test code = LY%) 20.7 % 14.3-34.3 N MONOCYTE % (test code = MO%) 4.8 % 5.1-10.4 L EOSINOPHIL % (test code = EO%) 1.7 % 0.1-3.0 N BASOPHIL % (test code = BA%) 0.1 % 0.1-1.0 N NEUTROPHIL # (test code = NT#) 5.0 K/mm3 LYMPHOCYTE # (test code = LY#) 1.4 K/mm3 MONOCYTE # (test code = MO#) 0.3 K/mm3 EOSINOPHIL # (test code = EO#) 0.12 K/mm3 BASOPHIL # (test code = BA#) 0.0 K/mm3 RBC MORPHOLOGY REQUIRED (test code NORMAL NORMAL = RBCM) PLATELET MORPHOLOGY REQUIRED (test NORMAL NORMAL code = PLTMR) - [place] [id number] 06:06:00 [facility] CENTER[facility]: T[facility]I MOSQUERA : 1995 Sex: F Patient Name: TASHI MOSQUERA Unit No: [id number] EXAMS: CPT CODE: [id number] [place] LTD [address]2236 STUDY: - US LTD 09/28/2020 5:04 AM Ordering Physician: Cipriano Alex III, MD Patient Name: TASHI MOSQUERA MR: [id number] : 1995; Age: 25 years y/o Female Clinical Indication: with vaginal bleeding. Comparison: 08/05/2020 FINDINGS: Multiple static images from a limited obstetrical ultrasound including olguin scale and M-mode imaging are submitted for interpretation. The examination was performed primarily to assess presentation, size, and dates. The structures were not assessed. GENERAL DESCRIPTION Single live intrauterine at 27 weeks 3 days. Presentation: Breech Placental location: Fundal Placental grade: I Placenta previa: No. Amniotic fluid: Normal in appearance. ALEXY: 17.8 cm Cervix: Trace fluid in the endocervical canal measuring 3.8 cm in length. The maternal ovaries are not visualized. STRUCTURES Brain: Not evaluated. Spine: Not evaluated. Heart: Not evaluated. heart rate: 137 beats per minute. Kidneys: Not evaluated. Urinary Bladder: Not evaluated. Stomach: Not evaluated. Umbilical Cord: Not evaluated. Cord Insertion: Not evaluated. Extremities: Not evaluated. BIOMETRIC MEASUREMENTS Not performed. IMPRESSION: Singlelive intrauterine at 27 weeks 3 days as above described. [facility] NAME: TASHI MOSQUERA Radiology Department PHYS: Cipriano Michelle III, MD [address] : 1995 AGE: 25 SEX: F [place], [place] [address] LOC: AnupTONY PHONE #: [phone] EXAM DATE: 09/28/2020 STATUS: REG ER FAX #: [phone] RAD NO: Page 1 Signed Report (CONTINUED) Patient Name: Tee MOSQUERA Unit No: [id number] EXAMS: CPT CODE: [id number] [facility] [address] <C ontinued> ALEXY 17.8 cm. Trace fluid in the endocervical canal. The structures are not individually characterized on this examination, but no abnormality is demonstrated. GENERAL OBSERVATIONS REGARDING ULTRASOUND: 1. A normal or negative sonogram report should not delay further investigation of a clinically suspicious or abnormal . 2. position or overlap of parts may prevent complete evaluation of the fetus. 3. Congenital and developmental abnormalities are not always sonographically visualized. 4. Repeat sonograms may be necessary depending on the clinical development during . SL: TPAINTER-H at 0606 Reported and signed by: Ho Jaffe MD CC: Natalie Garcia MD; Cipriano Alex III, MD Technologist: ERICA ZHOU RDMS, RVT Probe: Trnscrbd D/ (0606) [email or web address] Orig Print D/T: S: 09/28/2020 (0609) [facility] NAME: [facility] Radiology Department PHYS: Cipriano Michelle III, MD [address] : 1995 AGE: 25 SEX: F [place] [address] LOC: AnupTONY PHONE #: [phone] EXAM DATE: 09/28/2020 STATUS: REG ER FAX #: [phone] RAD NO: Page 2 Signed Report Patient Name: [facility] Unit No: [id number] EXAMS: CPT CODE: [id number] LTD [address]6979 <Continued> [facility] NAME: [facility] Radiology Department PHYS: Cipriano Michelle III, MD [address] : 1995 AGE: 25 SEX: F [place] [address] LOC: AnupTONY PHONE #: [phone] EXAM DATE: 09/28/2020 STATUS: REG ER FAX #: [phone] RAD NO: Page 3 Signed ReportURINALYSIS [id number] 05:32:00 Test Item Value Reference Range Interpretation Comments UA COLOR (test code = COLU) YELLOW YELLOW UA APPEARANCE (test code = Slightly-Cloudy CLEAR APPU) UA GLUCOSE DIPSTICK (test 3+ NEG A code = DGLUU) UA BILIRUBIN DIPSTICK (test NEGATIVE NEG code = BILU) UA KETONE DIPSTICK (test code TRACE NEG A = KETU) UA SPECIFIC GRAVITY (test 1.027 1.001-1.035 N code = SGU) UA BLOOD DIPSTICK (test code NEG NEG = ZEUS) UA PH DIPSTICK (test code = 5.0 5-9 FEROZ) UA PROTEIN DIPSTICK (test NEGATIVE NEG code = PROU) UA UROBILINIOGEN DIPSTICK 2.0 mg/dL NEG (test code = URO) UA NITRITE DIPSTICK (test NEG NEG code = DYAN) UA LEUKOCYTE ESTERASE TRACE NEG A DIPSTICK (test code = LEUU) UA WBC (test code = WBCU) 3-5 #/hpf NONE SEEN A UA RBC (test code = RBCU) 3-5 #/hpf NONE SEEN A UA EPITHELIAL CELLS (test RARE #/HPF RARE-FEW code = EPIU) UA BACTERIA (test code = RARE /HPF RARE-FEW BACU) UA CALCIUM OXALATE CRYSTALS 11-15 #/LPF (test code = CAOXU) UA MUCUS (test code = MUCU) RARE NONE SEEN Specimen Comment: JOSE ROSALES SAMPLE: CLEAN [id number] 05:29:00 Test Item Value Reference Range Interpretation Comments GLUBED (test code = GLUBED) 91 mg/dL 65-110 N [id number] 14:54:00 Test Item Value Reference Range Interpretation Comments GLUBED (test code = GLUBED) 95 mg/dL 65-110 N [id number] 14:54:00 Test Item Value Reference Range Interpretation Comments GLUBED (test code = GLUBED) 124 mg/dL 65-110 H [id number] 14:54:00 Test Item Value Reference Range Interpretation Comments GLUBED (test code = GLUBED) 131 mg/dL 65-110 H COMPREHENSIVE METABOLIC [id number] 12:46:00 Test Item Value Reference Range Interpretation Comments SODIUM (test code = NA) 137 mEq/L 135-145 N POTASSIUM (test code = K) 3.5 mEq/L 3.5-5.0 N CHLORIDE (test code = CL) 106 mEq/L 100-115 N CARBON DIOXIDE (test code = CO2) 23 mEq/L 22-31 N ANION GAP (test code = GAP) 11.80 10-20 N GLUCOSE (test code = GLU) 131 mg/dL 65-110 H BLOOD UREA NITROGEN (test code = 7 mg/dL 7-18 N BUN) GLOMERULAR FILTRATION RATE (test 121 ml/min >60 N code = GFR) CREATININE (test code = CREAT) 0.6 mg/dL 0.5-1.0 N TOTAL PROTEIN (test code = PROT) 5.1 gm/dL 6.3-8.2 L ALBUMIN (test code = ALB) 2.3 gm/dL 3.4-4.8 L CALCIUM (test code = CA) 7.9 mg/dL 8.4-10.2 L BILIRUBIN TOTAL (test code = BILT) 0.3 mg/dL 0.2-1.0 N SGOT/AST (test code = AST) 11 units/L 15-37 L SGPT/ALT (test code = ALT) 15 units/L 12-78 N ALKALINE PHOSPHATASE TOTAL (test 44 units/L 46-116 L code = ALKP) [id number] 12:46:00 Test Item Value Reference Range Interpretation Comments PHOSPHOROUS (test code = PHOS) 1.6 mg/dL 2.5-4.9 L [id number] 12:46:00 Test Item Value Reference Range Interpretation Comments MAGNESIUM (test code = MAG) 1.7 mg/dL 1.8-2.4 L CBC W/AUTO [id number] 12:04:00 Test Item Value Reference Range Interpretation Comments WHITE BLOOD CELL (test code = WBC) 4.8 K/mm3 6.6-12.1 L RED BLOOD CELL (test code = RBC) 3.65 M/mm3 3.45-5.01 N HEMOGLOBIN (test code = HGB) 11.2 g/dL 10.7-13.9 N HEMATOCRIT (test code = HCT) 33.0 % 32.1-42.1 N MEAN CELL VOLUME (test code = MCV) 90 fL 84.1-94.8 N MEAN CELL HGB (test code = MCH) 30.7 pg 27-35 N MEAN CELL HGB CONCETRATION (test 33.9 gm/dL 32.2-34.1 N code = MCHC) RED CELL DISTRIBUTION WIDTH (test 13.4 % 12.4-16.5 N code = RDW) PLATELET COUNT (test code = PLT) 228 K/mm3 133-385 N MEAN PLATELET VOLUME (test code = 9.8 fl 9.1-12.7 N MPV) NEUTROPHIL % (test code = NT%) 68.2 % 56.5-79.4 N LYMPHOCYTE % (test code = LY%) 21.9 % 14.3-34.3 N MONOCYTE % (test code = MO%) 7.0 % 5.1-10.4 N EOSINOPHIL % (test code = EO%) 2.3 % 0.1-3.0 N BASOPHIL % (test code = BA%) 0.2 % 0.1-1.0 N NEUTROPHIL # (test code = NT#) 3.3 K/mm3 LYMPHOCYTE # (test code = LY#) 1.1 K/mm3 MONOCYTE # (test code = MO#) 0.3 K/mm3 EOSINOPHIL # (test code = EO#) 0.11 K/mm3 BASOPHIL # (test code = BA#) 0.0 K/mm3 RBC MORPHOLOGY REQUIRED (test code NORMAL NORMAL = RBCM) PLATELET MORPHOLOGY REQUIRED (test NORMAL NORMAL code = PLTMR) [id number] 10:33:00 Test Item Value Reference Range Interpretation Comments GLUBED (test code = GLUBED) 136 mg/dL 65-110 H [id number] 10:33:00 Test Item Value Reference Range Interpretation Comments GLUBED (test code = GLUBED) 180 mg/dL 65-110 H COMPREHENSIVE METABOLIC [id number] 07:48:00 Test Item Value Reference Range Interpretation Comments SODIUM (test code = NA) 137 mEq/L 135-145 N POTASSIUM (test code = K) 3.3 mEq/L 3.5-5.0 L CHLORIDE (test code = CL) 109 mEq/L 100-115 N CARBON DIOXIDE (test code = CO2) 19 mEq/L 22-31 L ANION GAP (test code = GAP) 12.30 10-20 N GLUCOSE (test code = GLU) 209 mg/dL 65-110 H BLOOD UREA NITROGEN (test code = 6 mg/dL 7-18 L BUN) GLOMERULAR FILTRATION RATE (test 121 ml/min >60 N code = GFR) CREATININE (test code = CREAT) 0.6 mg/dL 0.5-1.0 N TOTAL PROTEIN (test code = PROT) 4.7 gm/dL 6.3-8.2 L ALBUMIN (test code = ALB) 2.1 gm/dL 3.4-4.8 L CALCIUM (test code = CA) 7.1 mg/dL 8.4-10.2 L BILIRUBIN TOTAL (test code = BILT) 0.2 mg/dL 0.2-1.0 N SGOT/AST (test code = AST) 8 units/L 15-37 L SGPT/ALT (test code = ALT) 15 units/L 12-78 N ALKALINE PHOSPHATASE TOTAL (test 42 units/L 46-116 L code = ALKP) [id number] 07:48:00 Test Item Value Reference Range Interpretation Comments PHOSPHOROUS (test code = PHOS) 1.6 mg/dL 2.5-4.9 L [id number] 07:48:00 Test Item Value Reference Range Interpretation Comments MAGNESIUM (test code = MAG) 1.6 mg/dL 1.8-2.4 L [id number] 07:06:00 Test Item Value Reference Range Interpretation Comments GLUBED (test code = GLUBED) 184 mg/dL 65-110 H [id number] 06:27:00 Test Item Value Reference Range Interpretation Comments GLUBED (test code = GLUBED) 187 mg/dL 65-110 H COMPREHENSIVE METABOLIC [id number] 05:46:00 Test Item Value Reference Range Interpretation Comments SODIUM (test code = NA) 137 mEq/L 135-145 N POTASSIUM (test code = K) 3.3 mEq/L 3.5-5.0 L CHLORIDE (test code = CL) 109 mEq/L 100-115 N CARBON DIOXIDE (test code = CO2) 19 mEq/L 22-31 L ANION GAP (test code = GAP) 12.30 10-20 N GLUCOSE (test code = GLU) 209 mg/dL 65-110 H BLOOD UREA NITROGEN (test code = 6 mg/dL 7-18 L BUN) GLOMERULAR FILTRATION RATE (test 121 ml/min >60 N code = GFR) CREATININE (test code = CREAT) 0.6 mg/dL 0.5-1.0 N TOTAL PROTEIN (test code = PROT) 4.7 gm/dL 6.3-8.2 L ALBUMIN (test code = ALB) 2.1 gm/dL 3.4-4.8 L CALCIUM (test code = CA) 7.1 mg/dL 8.4-10.2 L BILIRUBIN TOTAL (test code = BILT) 0.2 mg/dL 0.2-1.0 N SGOT/AST (test code = AST) 8 units/L 15-37 L SGPT/ALT (test code = ALT) 15 units/L 12-78 N ALKALINE PHOSPHATASE TOTAL (test 42 units/L 46-116 L code = ALKP) [id number] 05:46:00 Test Item Value Reference Range Interpretation Comments MAGNESIUM (test code = MAG) 1.6 mg/dL 1.8-2.4 L CBC W/AUTO [id number] 05:34:00 Test Item Value Reference Range Interpretation Comments WHITE BLOOD CELL (test code = WBC) 4.4 K/mm3 6.6-12.1 L RED BLOOD CELL (test code = RBC) 3.53 M/mm3 3.45-5.01 N HEMOGLOBIN (test code = HGB) 10.8 g/dL 10.7-13.9 N HEMATOCRIT (test code = HCT) 31.9 % 32.1-42.1 L MEAN CELL VOLUME (test code = MCV) 90 fL 84.1-94.8 N MEAN CELL HGB (test code = MCH) 30.6 pg 27-35 N MEAN CELL HGB CONCETRATION (test 33.9 gm/dL 32.2-34.1 N code = MCHC) RED CELL DISTRIBUTION WIDTH (test 13.4 % 12.4-16.5 N code = RDW) PLATELET COUNT (test code = PLT) 222 K/mm3 133-385 N MEAN PLATELET VOLUME (test code = 9.2 fl 9.1-12.7 N MPV) NEUTROPHIL % (test code = NT%) 60.2 % 56.5-79.4 N LYMPHOCYTE % (test code = LY%) 29.1 % 14.3-34.3 N MONOCYTE % (test code = MO%) 7.8 % 5.1-10.4 N EOSINOPHIL % (test code = EO%) 1.8 % 0.1-3.0 N BASOPHIL % (test code = BA%) 0.2 % 0.1-1.0 N NEUTROPHIL # (test code = NT#) 2.6 K/mm3 LYMPHOCYTE # (test code = LY#) 1.3 K/mm3 MONOCYTE # (test code = MO#) 0.3 K/mm3 EOSINOPHIL # (test code = EO#) 0.08 K/mm3 BASOPHIL # (test code = BA#) 0.0 K/mm3 RBC MORPHOLOGY REQUIRED (test code NORMAL NORMAL = RBCM) PLATELET MORPHOLOGY REQUIRED (test NORMAL NORMAL code = PLTMR) [id number] 05:22:00 Test Item Value Reference Range Interpretation Comments GLUBED (test code = GLUBED) 208 mg/dL 65-110 H [id number] 04:21:00 Test Item Value Reference Range Interpretation Comments GLUBED (test code = GLUBED) 210 mg/dL 65-110 H [id number] 03:22:00 Test Item Value Reference Range Interpretation Comments GLUBED (test code = GLUBED) 229 mg/dL 65-110 H [id number] 02:22:00 Test Item Value Reference Range Interpretation Comments GLUBED (test code = GLUBED) 247 mg/dL 65-110 H [id number] 01:34:00 Test Item Value Reference Range Interpretation Comments GLUBED (test code = GLUBED) 261 mg/dL 65-110 H [id number] 00:21:00 Test Item Value Reference Range Interpretation Comments GLUBED (test code = GLUBED) 276 mg/dL 65-110 H [id number] 23:23:00 Test Item Value Reference Range Interpretation Comments GLUBED (test code = GLUBED) 282 mg/dL 65-110 H [id number] 22:29:00 Test Item Value Reference Range Interpretation Comments GLUBED (test code = GLUBED) 193 mg/dL 65-110 H [id number] 22:29:00 Test Item Value Reference Range Interpretation Comments GLUBED (test code = GLUBED) 172 mg/dL 65-110 H [id number] 22:29:00 Test Item Value Reference Range Interpretation Comments GLUBED (test code = GLUBED) 123 mg/dL 65-110 H [id number] 22:29:00 Test Item Value Reference Range Interpretation Comments GLUBED (test code = GLUBED) 158 mg/dL 65-110 H [id number] 22:29:00 Test Item Value Reference Range Interpretation Comments GLUBED (test code = GLUBED) 192 mg/dL 65-110 H COMPREHENSIVE METABOLIC [id number] 21:00:00 Test Item Value Reference Range Interpretation Comments SODIUM (test code = 136 mEq/L 135-145 N NA) POTASSIUM (test code 3.5 mEq/L 3.5-5.0 N = K) CHLORIDE (test code 108 mEq/L 100-115 N = CL) CARBON DIOXIDE (test 13 mEq/L 22-31 LL RESULTS VERIFIED BY code = CO2) REPEAT ANALYSIS RESULTS CALLED TO LILIA PETERSEN BACK & CONFIRME D? YES.BY F.LABNithinTT T 09/26/202058. ANION GAP (test code 18.70 10-20 N = GAP) GLUCOSE (test code = 140 mg/dL 65-110 H GLU) BLOOD UREA NITROGEN 8 mg/dL 7-18 N (test code = BUN) GLOMERULAR 121 ml/min >60 N FILTRATION RATE (test code = GFR) CREATININE (test 0.6 mg/dL 0.5-1.0 N code = CREAT) TOTAL PROTEIN (test 5.1 gm/dL 6.3-8.2 L code = PROT) ALBUMIN (test code = 2.2 gm/dL 3.4-4.8 L ALB) CALCIUM (test code = 6.9 mg/dL 8.4-10.2 L CA) BILIRUBIN TOTAL 0.4 mg/dL 0.2-1.0 N (test code = BILT) SGOT/AST (test code 8 units/L 15-37 L = AST) SGPT/ALT (test code 15 units/L 12-78 N = ALT) ALKALINE PHOSPHATASE 46 units/L 46-116 TOTAL (test code = ALKP) [id number] 21:00:00 Test Item Value Reference Range Interpretation Comments PHOSPHOROUS (test code = PHOS) 1.8 mg/dL 2.5-4.9 L [id number] 21:00:00 Test Item Value Reference Range Interpretation Comments MAGNESIUM (test code = MAG) 1.4 mg/dL 1.8-2.4 L OSMOLALITY [id number] 20:51:00 Test Item Value Reference Range Interpretation Comments OSMOLALITY SERUM (test code = 296 mOsm/kg 275-295 H OSMO) OSMOLALITY [id number] 20:51:00 Test Item Value Reference Range Interpretation Comments OSMOLALITY SERUM (test code = 296 mOsm/kg 275-295 H OSMO) GLYCOSYLATED HEMOGLOBIN (HA1C)2020-09-26 20:50:00 Test Item Value Reference Range Interpretation Comments GLYCOSYLATED 13.7 % 4.8-5.9 H Any condition t hat HEMOGLOBIN (HA1C) shortens e rythocyte (test code = GLYHGB) surviva l or decreasesmean erythrocyte age (e.g., recovery from a cute blood loss,hemolytic anemia) will falsely lo wer HGBA1c resultsregardle ss of the method used. H GBA1c results from [facility] HbSS, HbCC, and HbSc must be interpreted with cautiongiven th e pathological pr ocesses, including anemi a,increased red cell turnov er, transfusion req uirements, thatadversely i mpact HGBA1c as a mar ker of long-term glyce miccontrol. Alternative for ms of testing such as fructosaminesho uld be considered for these patients. GLYCOSYLATED HEMOGLOBIN [id number] 20:49:00 Test Item Value Reference Range Interpretation Comments GLYCOSYLATED 13.7 % 4.8-5.9 H Any condition t hat HEMOGLOBIN (HA1C) shortens e rythocyte (test code = survival or dec reasesmean GLYHGB) erythrocyte age (e.g., recovery from a cute blood loss,hemolytic anemia) will falsely lo wer HGBA1c resultsregardle ss of the method used. H GBA1c results from [facility] HbSS, HbCC, and HbSc must be interpreted with cautiongiven th e pathological pr ocesses, including anemia,increase d red cell turnover, trans fusion requirements, thatadversely i mpact HGBA1c as a mar ker of long-term glycemiccontrol . Alternative for ms of testing such as fructosaminesho uld be considered for these patients. MEAN BLOOD GLUCOSE 346 MG/DL 70-110 H (test code = MBG) CBC W/AUTO [id number] 19:25:00 Test Item Value Reference Range Interpretation Comments WHITE BLOOD CELL (test code = WBC) 9.2 K/mm3 6.6-12.1 N RED BLOOD CELL (test code = RBC) 3.80 M/mm3 3.45-5.01 N HEMOGLOBIN (test code = HGB) 11.6 g/dL 10.7-13.9 HEMATOCRIT (test code = HCT) 35.6 % 32.1-42.1 MEAN CELL VOLUME (test code = MCV) 94 fL 84.1-94.8 N MEAN CELL HGB (test code = MCH) 30.5 pg 27-35 N MEAN CELL HGB CONCETRATION (test 32.6 gm/dL 32.2-34.1 N code = MCHC) RED CELL DISTRIBUTION WIDTH (test 13.5 % 12.4-16.5 N code = RDW) PLATELET COUNT (test code = PLT) 294 K/mm3 133-385 N IMMATURE PLATELET FRACTION (test 1.9 % 0.0-10.8 N code = IPF) MEAN PLATELET VOLUME (test code = 9.7 fl 9.1-12.7 N MPV) NEUTROPHIL % (test code = NT%) 72.3 % 56.5-79.4 N LYMPHOCYTE % (test code = LY%) 22.3 % 14.3-34.3 N MONOCYTE % (test code = MO%) 4.1 % 5.1-10.4 L EOSINOPHIL % (test code = EO%) 0.2 % 0.1-3.0 N BASOPHIL % (test code = BA%) 0.2 % 0.1-1.0 N NEUTROPHIL # (test code = NT#) 6.7 K/mm3 LYMPHOCYTE # (test code = LY#) 2.1 K/mm3 MONOCYTE # (test code = MO#) 0.4 K/mm3 EOSINOPHIL # (test code = EO#) 0.02 K/mm3 BASOPHIL # (test code = BA#) 0.0 K/mm3 RBC MORPHOLOGY REQUIRED (test code NORMAL NORMAL = RBCM) PLATELET MORPHOLOGY REQUIRED (test NORMAL NORMAL code = PLTMR) VBG IONIZED [id number] 19:21:00 Test Item Value Reference Range Interpretation Comments VBG IONIZED CALCIUM (test code = 1.06 mmol/L 0.9-1.29 N ICAL/VBG) COMPREHENSIVE METABOLIC [id number] 19:09:00 Test Item Value Reference Range Interpretation Comments SODIUM (test code = 135 mEq/L 135-145 N NA) POTASSIUM (test code 3.9 mEq/L 3.5-5.0 N = K) CHLORIDE (test code 104 mEq/L 100-115 N = CL) CARBON DIOXIDE (test 10 mEq/L 22-31 LL RESULTS VERIFIED BY code = CO2) REPEAT ANALYSIS RESULTS CALLED TO PATRICK CISNEROS BACK & CONFIRME D? .BY FNithinLABNithinTTT 09/26. ANION GAP (test code 24. 10-20 H = GAP) GLUCOSE (test code = 157 mg/dL 65-110 H GLU) BLOOD UREA NITROGEN 9 mg/dL 7-18 N (test code = BUN) GLOMERULAR 101 ml/min >60 N FILTRATION RATE (test code = GFR) CREATININE (test 0.7 mg/dL 0.5-1.0 N code = CREAT) TOTAL PROTEIN (test 7.1 gm/dL 6.3-8.2 N code = PROT) ALBUMIN (test code = 3.2 gm/dL 3.4-4.8 L ALB) CALCIUM (test code = 7.9 mg/dL 8.4-10.2 L CA) BILIRUBIN TOTAL 0.5 mg/dL 0.2-1.0 N (test code = BILT) SGOT/AST (test code 14 units/L 15-37 L = AST) SGPT/ALT (test code 20 units/L 12-78 N = ALT) ALKALINE PHOSPHATASE 65 units/L 46-116 N TOTAL (test code = ALKP) [id number] 19:09:00 Test Item Value Reference Range Interpretation Comments PHOSPHOROUS (test code = PHOS) 1.9 mg/dL 2.5-4.9 L [id number] 19:09:00 Test Item Value Reference Range Interpretation Comments MAGNESIUM (test code = MAG) 1.5 mg/dL 1.8-2.4 L [id number] 17:36:00 Test Item Value Reference Range Interpretation Comments GLUBED (test code = GLUBED) 212 mg/dL 65-110 H UR PROTEIN/CREATININE [id number] 17:25:00 Test Item Value Reference Range Interpretation Comments UR PROTEIN RANDOM 56.6 mg/dL (test code = PROTU) UR CREATININE 11.1 mg/dL RANDOM (test code = CREATU) PROTEIN/CREATININE 5090.0 <200 H RESULTS V ERIFIED BY RATIO (test code = mg/gcrea REPEAT AN ALYSISRESULTS P/CRATIO) CALLED TO SASHA READ BACK & CONFIRME D? ERICK FNithinLAB.TTT 09/26 0082 COMPREHENSIVE METABOLIC [id number] 17:24:00 Test Item Value Reference Range Interpretation Comments SODIUM (test code = 136 mEq/L 135-145 N NA) POTASSIUM (test code 4.7 mEq/L 3.5-5.0 N = K) CHLORIDE (test code 103 mEq/L 100-115 N = CL) CARBON DIOXIDE (test 11 mEq/L 22-31 LL RESULTS VERIFIED BY code = CO2) REPEAT ANALYSIS RESULTS CALLED TO SASHA READ BACK & CONFIRME D? YES.BY F.LAB.TT T 09/26/20 9108. ANION GAP (test code 26.90 10-20 H = GAP) GLUCOSE (test code = 246 mg/dL 65-110 H GLU) BLOOD UREA NITROGEN 10 mg/dL 7-18 N (test code = BUN) GLOMERULAR 87 ml/min >60 N FILTRATION RATE (test code = GFR) CREATININE (test 0.8 mg/dL 0.5-1.0 N code = CREAT) TOTAL PROTEIN (test 7.1 gm/dL 6.3-8.2 N code = PROT) ALBUMIN (test code = 3.2 gm/dL 3.4-4.8 L ALB) CALCIUM (test code = 7.6 mg/dL 8.4-10.2 L CA) BILIRUBIN TOTAL 0.4 mg/dL 0.2-1.0 N (test code = BILT) SGOT/AST (test code 9 units/L 15-37 L = AST) SGPT/ALT (test code 20 units/L 12-78 N = ALT) ALKALINE PHOSPHATASE 68 units/L 46-116 N TOTAL (test code = ALKP) [id number] 17:24:00 Test Item Value Reference Range Interpretation Comments PHOSPHOROUS (test code = PHOS) 2.9 mg/dL 2.5-4.9 N [id number] 17:24:00 Test Item Value Reference Range Interpretation Comments AMYLASE (test code = CHELSIE) 77 units/L 30-110 N [id number] 17:24:00 Test Item Value Reference Range Interpretation Comments MAGNESIUM (test code = MAG) 1.7 mg/dL 1.8-2.4 L C REACTIVE [id number] 17:08:00 Test Item Value Reference Range Interpretation Comments C REACTIVE PROTEIN (test code = 0.2 mg/dL 0.6-1.2 L CRP) URINALYSIS [id number] 17:00:00 Test Item Value Reference Range Interpretation Comments UA COLOR (test code = COLU) STRAW YELLOW UA APPEARANCE (test code = CLEAR CLEAR APPU) UA GLUCOSE DIPSTICK (test code 3+ NEG A = DGLUU) UA BILIRUBIN DIPSTICK (test NEGATIVE NEG code = BILU) UA KETONE DIPSTICK (test code 2+ NEG A = KETU) UA SPECIFIC GRAVITY (test code 1.011 1.001-1.035 N = SGU) UA BLOOD DIPSTICK (test code = 1+ NEG A ZEUS) UA PH DIPSTICK (test code = 5.0 5-9 FEROZ) UA PROTEIN DIPSTICK (test code NEGATIVE NEG = PROU) UA UROBILINIOGEN DIPSTICK NEGATIVE mg/dL NEG (test code = URO) UA NITRITE DIPSTICK (test code NEG NEG = DYAN) UA LEUKOCYTE ESTERASE DIPSTICK NEG NEG (test code = LEUU) UA WBC (test code = WBCU) 3-5 #/hpf NONE SEEN A UA RBC (test code = RBCU) 0-2 #/hpf NONE SEEN UA EPITHELIAL CELLS (test code RARE #/HPF RARE-FEW = EPIU) UA BACTERIA (test code = BACU) RARE /HPF RARE-FEW UA MUCUS (test code = MUCU) RARE NONE SEEN CBC W/AUTO [id number] 16:53:00 Test Item Value Reference Range Interpretation Comments WHITE BLOOD CELL (test code = WBC) 11.6 K/mm3 6.6-12.1 N RED BLOOD CELL (test code = RBC) 4.81 M/mm3 3.45-5.01 N HEMOGLOBIN (test code = HGB) 14.8 g/dL 10.7-13.9 H HEMATOCRIT (test code = HCT) 46.9 % 32.1-42.1 H MEAN CELL VOLUME (test code = MCV) 98 fL 84.1-94.8 H MEAN CELL HGB (test code = MCH) 30.8 pg 27-35 N MEAN CELL HGB CONCETRATION (test 31.6 gm/dL 32.2-34.1 L code = MCHC) RED CELL DISTRIBUTION WIDTH (test 13.4 % 12.4-16.5 N code = RDW) PLATELET COUNT (test code = PLT) 293 K/mm3 133-385 N MEAN PLATELET VOLUME (test code = 9.6 fl 9.1-12.7 N MPV) NEUTROPHIL % (test code = NT%) 77.0 % 56.5-79.4 N LYMPHOCYTE % (test code = LY%) 15.3 % 14.3-34.3 N MONOCYTE % (test code = MO%) 5.6 % 5.1-10.4 N EOSINOPHIL % (test code = EO%) 0.3 % 0.1-3.0 N BASOPHIL % (test code = BA%) 0.3 % 0.1-1.0 N NEUTROPHIL # (test code = NT#) 8.9 K/mm3 LYMPHOCYTE # (test code = LY#) 1.8 K/mm3 MONOCYTE # (test code = MO#) 0.7 K/mm3 EOSINOPHIL # (test code = EO#) 0.03 K/mm3 BASOPHIL # (test code = BA#) 0.0 K/mm3 RBC MORPHOLOGY REQUIRED (test code NORMAL NORMAL = RBCM) PLATELET MORPHOLOGY REQUIRED (test NORMAL NORMAL code = PLTMR) COMPREHENSIVE METABOLIC [id number] 13:57:00 Test Item Value Reference Range Interpretation Comments SODIUM (test code = NA) 133 mEq/L 135-145 L POTASSIUM (test code = K) 3.4 mEq/L 3.5-5.0 L CHLORIDE (test code = CL) 101 mEq/L 100-115 N CARBON DIOXIDE (test code = CO2) 27 mEq/L 22-31 N ANION GAP (test code = GAP) 8.90 10-20 L GLUCOSE (test code = GLU) 262 mg/dL 65-110 H BLOOD UREA NITROGEN (test code = 11 mg/dL 7-18 N BUN) GLOMERULAR FILTRATION RATE (test 121 ml/min >60 N code = GFR) CREATININE (test code = CREAT) 0.6 mg/dL 0.5-1.0 N TOTAL PROTEIN (test code = PROT) 6.1 gm/dL 6.3-8.2 L ALBUMIN (test code = ALB) 2.7 gm/dL 3.4-4.8 L CALCIUM (test code = CA) 7.7 mg/dL 8.4-10.2 L BILIRUBIN TOTAL (test code = BILT) 0.2 mg/dL 0.2-1.0 N SGOT/AST (test code = AST) 10 units/L 15-37 L SGPT/ALT (test code = ALT) 21 units/L 12-78 N ALKALINE PHOSPHATASE TOTAL (test 48 units/L 46-116 N code = ALKP) [id number] 13:57:00 Test Item Value Reference Range Interpretation Comments LIPASE (test code = LIP) 85 units/L 73-393 N ACETONE [id number] 13:57:00 Test Item Value Reference Range Interpretation Comments ACETONE QUAL (test code = ACETNQL) NEGATIVE NEGATIVE BETA [id number] 13:57:00 Test Item Value Reference Range Interpretation Comments BETA HYDROBUTYRATE (test 2.2 mg/dL () Ref erence Range:All code = BETHYD) Ages (fasting ): 0.2 - 2.8Performed At: [facility] [address] [place] [address] [id number] danial Blanton MD Ph:[phone] [id number] 13:24:00 Test Item Value Reference Range Interpretation Comments GLUBED (test code = GLUBED) 169 mg/dL 65-110 H [id number] 11:17:00 Test Item Value Reference Range Interpretation Comments GLUBED (test code = GLUBED) 91 mg/dL 65-110 N [id number] 07:59:00 Test Item Value Reference Range Interpretation Comments GLUBED (test code = GLUBED) 162 mg/dL 65-110 H - US PREG UT [id number] 04:23:00 Patient Name: TASHI MOSQUERA Unit No: [id number] EXAMS: CPT CODE: [id number] US PREG UT TRANSVAGINAL 19029 STUDY: - US LTD, - US PREG UT TRANSVAGINAL 08/05/2020 12:59 AM Ordering Physician: Shira Arredondo MD Patient Name: TASHI MOSQUERA MR: [id number] : 1995; Age: 25 years y/o Female Clinical Indication: 19weeks,5 days preg, abd pain Comparison: None FINDINGS: Multiple static images from a limited obstetrical ultrasound including olguin scale and M- mode imaging are submitted for interpretation. The examination was performed primarily to assess presentation, size, and dates. The structures were not assessed. GENERAL DESCRIPTION Single live intrauterine at 19 weeks 5 days. Presentation: Cephalic/vertex Placental location: Posterior located 2.7 cm from the internal cervical os. Placental grade: 1 Placenta previa: No. Amniotic fluid: Normal in appearance. ALEXY: Qualitatively adequate. Cervix: Closed. Length: 3.8-4.5 cm containing trace fluid Normal maternal left ovary measuring 2.8 x 2.0 x 2.2 cm. Nonvisualized maternal right ovary. STRUCTURES Brain: Not evaluated. Spine: Not evaluated. Heart: Not evaluated. heart rate: 130 beats per minute. Kidneys: Not evaluated. Urinary Bladder: Not evaluated. Stomach: Not evaluated. Umbilical Cord: Not evaluated. Cord Insertion: Not evaluated. Extremities: Not evaluated. BIOMETRIC MEASUREMENTS Not performed Small free pelvic fluid. [facility] NAME: TASHI MOSQUERA Radiology Department PHYS: Natalie Foley MD [address] : 1995 AGE: 25 SEX: F [place], [place] [address] LOC: [id number] Claude PHONE #: [phone] EXAM DATE: 08/05/2020 STATUS: ADM IN FAX #: [phone] RAD NO: Page 1 Signed Report (CONTINUED) Patient Name: TASHI MOSQUERA Unit No: [id number] EXAMS: CPT CODE: [id number] US PREG UT TRANSVAGINAL 52739 <Continued> IMPRESSION: Single liveintrauterine at 19 weeks 5 days. Trace fluid in the endocervical canal. The structures are not individually characterized on this examination, but no abnormality is appreciated. Small free pelvic fluid. Low-lying posterior grade 1 placenta with tip located 2.7 cm from the internal cervical os. GENERAL OBSERVATIONS REGARDING ULTRASOUND: 1. A normal or negative sonogram report should not delay further investigation of a clinically suspicious or abnormal . 2. position or overlap of parts may prevent complete evaluation of the fetus. 3. Congenital and developmental abnormalities are not always sonographically visualized. 4. Repeat sonograms may be necessary depending on the clinical development during . SL: TPAINTER-H . at 0423 Reported and signed by: Ho Jaffe MD CC: Natalie Garcia MD Technologist: Charlotte Kidd RDMS Probe: [id number] Trnscrbd D/ (0423) [email or web address] Orig Print D/T: S: 08/05/2020 (0426) [facility] NAME: TASHI MOSQUERA Radiology Department PHYS: Natalie Foley MD [address] : 1995 AGE: 25 [place] [address] LOC: F.2624 A PHONE #: [phone] EXAM DATE: 08/05/2020 STATUS: ADM IN FAX #: [phone] RAD NO: Page 2 Signed Report Patient Name: TASHI MOSQUERA Unit No: [id number] EXAMS: CPT CODE: [id number] US PREG UT TRANSVAGINAL 28128 <Continued> [facility] PHYS: Natalie Foley MD [address] : 1995 AGE: 25 SEX: [place], [place] [address] LOC: F.2624 A PHONE #: [phone] EXAM DATE: 08/05/2020 STATUS: ADM IN FAX #: [phone] RAD NO: Page 3 Signed Report- US [id number] 04:23:00 Patient Name: TASHI MOSQUERA Unit No: [id number] EXAMS: CPT CODE: [id number] US LTD [address]9924 STUDY: - US LTD, - US PREG UT TRANSVAGINAL 08/05/2020 12:59 AM Ordering Physician: Shira Arredondo MD Patient Name: TASHI MOSQUERA MR: [id number] : 1995; Age: 25 years y/o Female Clinical Indication: 19weeks,5 days preg, abd pain Comparison: None FI NDINGS: Multiple static images from a limited obstetrical ultrasound including olguin scale and M-mode imaging are submitted for interpretation. The examination was performed primarily to assess presentation, size, and dates. The structures were not assessed. GENERAL DESCRIPTION Single live intrauterine at 19 weeks 5 days. Presentation: Cephalic/vertex Placental location: Posterior located 2.7 cm from the internal cervical os. Placental grade: 1 Placenta previa: No. Amniotic fluid: Normal in appearance. ALEXY: Qualitatively adequate. Cervix: Closed. Length: 3.8-4.5 cm containing trace fluid Normal maternal left ovary measuring 2.8 x 2.0 x 2.2 cm. Nonvisualized maternal right ovary. STRUCTURES Brain: Not evaluated. Spine: Not evaluated. Heart: Not evaluated. heart rate: 130 beats per minute. Kidneys: Not evaluated. Urinary Bladder: Not evaluated. Stomach: Not evaluated. Umbilical Cord: Not evaluated. Cord Insertion: Not e valuated. Extremities: Not evaluated. BIOMETRIC MEASUREMENTS Not performed Small free pelvic fluid. [facility] NAME: TASHI MOSQUERA Radiology Department PHYS: Shira Truong MD [address] : 1995 AGE: 25 SEX: F [place], [place] [address] LOC: Anup2624 Claude PHONE #: [phone] EXAM DATE: 08/05/2020 STATUS: ADM IN FAX #: [phone] RAD NO: Page 1 Signed Report (CONTINUED) Patient Name: TASHI MOSQUERA Unit No: [id number] EXAMS: CPT CODE: [id number] LTD 51494 <Continued> IMPRESSION: Single liveintrauterine at 19 weeks 5 days. Trace fluid in the endocervical canal. The structures are not individually characterized on this examination, but no abnormality is appreciated. Small free pelvic fluid. Low-lying posterior grade 1 placenta with tip located 2.7 cm from the internal cervical os. GENERAL OBSERVATIONS REGARDING ULTRASOUND: 1. A normal or negative sonogram report should not delay further investigation of a clinically suspicious or abnormal . 2. position or overlap of parts may prevent complete evaluation of the fetus. 3. Congenital and developmental abnormalities are not always sonographically visualized. 4. Repeat sonograms may be necessary depending on the clinical development during . SL: TPAINTER-H . at 0423 Reported and signed by: Ho Jaffe MD CC: Shira Arredondo MD Technologist: Charlotte Kidd RDMS Probe: Trnscrbd D/ (0423) t.[email or web address] Orig Print D/T: S: 08/05/2020 (0426) [facility] NAME: TASHI MOSQUERA Radiology Department PHYS: Shira Truong MD [address] : 1995 AGE: 25 [facility] [place] [address] LOC: Anup2624 A PHONE #: [phone] EXAM DATE: 08/05/2020 STATUS: ADM IN FAX #: [phone] RAD NO: Page 2 Signed Report Patient Name: TASHI MOSQUERA Unit No: [id number] EXAMS: CPT CODE: [id number] US LTD [address]01 <Continued> [facility] NAME: TASHI MOSQUERA Radiology Department PHYS: Shira Truong MD [address] : 1995 AGE: 25 SEX: [place], [place] [address] LOC: F.2624 A PHONE #: [phone] EXAM DATE: 1 STATUS: ADM IN FAX #: [phone] RAD NO: Page 3 Signed ReportARTERIAL BLOOD [id number] 03:03:00 Test Item Value Reference Range Interpretation Comments ARTERIAL BLOOD GAS PH (test code = 7.412 7.35-7.45 N PHA) ARTERIAL BLOOD GAS PCO2 (test code 29.8 mmHg 35-45 L = PCO2A) ARTERIAL BLOOD GAS PO2 (test code 99.0 mmHg 80-100 N = PO2A) BICARBONATE TOTAL HCO3 (test code 18.6 meq/L 22-26 L = HCO3) BASE EXCESS (test code = YADY) -4.7 -2.0-+2.0 L ABG O2 SATURATION (test code = 97.7 % 95-100 N SATA) ABG OXIMETRY (test code = OXA) 97.7 % sat ABG TYPE (test code = TYPEA) Arterial FIO2 (test code = FIO2A) 21.0 % PaO2/[id number] 03:03:00 Test Item Value Reference Range Interpretation Comments PaO2/FiO2 (test code = [id number]) mm/Hg [id number] 03:03:00 Test Item Value Reference Range Interpretation Comments GLUCOSE (test code = GLU/ABG) 201 MG/DL 60-110 H ARTERIAL BLOOD [id number] 03:03:00 Test Item Value Reference Range Interpretation Comments ARTERIAL BLOOD GAS PH (test code = 7.412 7.35-7.45 N PHA) ARTERIAL BLOOD GAS PCO2 (test code 29.8 mmHg 35-45 L = PCO2A) ARTERIAL BLOOD GAS PO2 (test code 99.0 mmHg 80-100 N = PO2A) BICARBONATE TOTAL HCO3 (test code 18.6 meq/L 22-26 L = HCO3) BASE EXCESS (test code = YADY) -4.7 -2.0-+2.0 L ABG O2 SATURATION (test code = 97.7 % 95-100 N SATA) ABG OXIMETRY (test code = OXA) 97.7 % sat ABG TYPE (test code = TYPEA) Arterial FIO2 (test code = FIO2A) 21.0 % PaO2/[id number] 03:03:00 Test Item Value Reference Range Interpretation Comments PaO2/FiO2 (test code = [id number]) 471.40 mm/Hg [id number] 03:03:00 Test Item Value Reference Range Interpretation Comments GLUCOSE (test code = GLU/ABG) 201 MG/DL 60-110 H COMPREHENSIVE METABOLIC [id number] 02:23:00 Test Item Value Reference Range Interpretation Comments SODIUM (test code = NA) 133 mEq/L 135-145 L POTASSIUM (test code = K) 3.4 mEq/L 3.5-5.0 L CHLORIDE (test code = CL) 101 mEq/L 100-115 N CARBON DIOXIDE (test code = CO2) 27 mEq/L 22-31 N ANION GAP (test code = GAP) 8.90 10-20 L GLUCOSE (test code = GLU) 262 mg/dL 65-110 H BLOOD UREA NITROGEN (test code = 11 mg/dL 7-18 N BUN) GLOMERULAR FILTRATION RATE (test 121 ml/min >60 N code = GFR) CREATININE (test code = CREAT) 0.6 mg/dL 0.5-1.0 N TOTAL PROTEIN (test code = PROT) 6.1 gm/dL 6.3-8.2 L ALBUMIN (test code = ALB) 2.7 gm/dL 3.4-4.8 L CALCIUM (test code = CA) 7.7 mg/dL 8.4-10.2 L BILIRUBIN TOTAL (test code = BILT) 0.2 mg/dL 0.2-1.0 N SGOT/AST (test code = AST) 10 units/L 15-37 L SGPT/ALT (test code = ALT) 21 units/L 12-78 N ALKALINE PHOSPHATASE TOTAL (test 48 units/L 46-116 N code = ALKP) [id number] 02:23:00 Test Item Value Reference Range Interpretation Comments LIPASE (test code = LIP) 85 units/L 73-393 N ACETONE [id number] 02:23:00 Test Item Value Reference Range Interpretation Comments ACETONE QUAL (test code = ACETNQL) NEGATIVE NEGATIVE BETA [id number] 02:23:00 Test Item Value Reference Range Interpretation Comments BETA HYDROBUTYRATE (test code = BETHYD) COOXIMETRY [id number] 02:14:00 Test Item Value Reference Range Interpretation Comments HEMOGLOBIN (test code = HGB/ABG) 13.0 g/dL 12-16 N HEMATOCRIT (test code = HCT/ABG) 38 % 37-47 N METHEMOGLOBIN (test code = METHGB) 0.6 % 0.0-1.5 N VENOUS BLOOD [id number] 02:14:00 Test Item Value Reference Range Interpretation Comments VENOUS BLOOD GAS PH (test code = 7.020 7.31-7.41 L PHV) VENOUS BLOOD GAS PCO2 (test code = 67.0 mmHg PCO2V) VENOUS BLOOD GAS PO2 (test code = 55.2 mmHg PO2V) VBG HCO3 (test code = HCO3V) 16.9 meq/L VBG BASE EXCESS (test code = KENNY) -14.6 2.0 to +2.0 L VENOUS BLOOD GAS OS SAT. (test 77.0 % code = O2SATV) VENOUS BLOOD GAS TYPE (test code = Venous TYPEV) VENOUS BLOOD GAS FIO2 (test code = 21.0 % FIO2V) CBC W/AUTO [id number] 02:00:00 Test Item Value Reference Range Interpretation Comments WHITE BLOOD CELL (test code = WBC) 7.1 K/mm3 6.6-12.1 N RED BLOOD CELL (test code = RBC) 4.04 M/mm3 3.45-5.01 N HEMOGLOBIN (test code = HGB) 12.3 g/dL 10.7-13.9 N HEMATOCRIT (test code = HCT) 36.3 % 32.1-42.1 N MEAN CELL VOLUME (test code = MCV) 90 fL 84.1-94.8 N MEAN CELL HGB (test code = MCH) 30.4 pg 27-35 N MEAN CELL HGB CONCETRATION (test 33.9 gm/dL 32.2-34.1 N code = MCHC) RED CELL DISTRIBUTION WIDTH (test 12.3 % 12.4-16.5 L code = RDW) PLATELET COUNT (test code = PLT) 236 K/mm3 133-385 N MEAN PLATELET VOLUME (test code = 10.2 fl 9.1-12.7 N MPV) NEUTROPHIL % (test code = NT%) 58.8 % 56.5-79.4 N LYMPHOCYTE % (test code = LY%) 32.2 % 14.3-34.3 N MONOCYTE % (test code = MO%) 5.2 % 5.1-10.4 N EOSINOPHIL % (test code = EO%) 3.3 % 0.1-3.0 H BASOPHIL % (test code = BA%) 0.1 % 0.1-1.0 N NEUTROPHIL # (test code = NT#) 4.2 K/mm3 LYMPHOCYTE # (test code = LY#) 2.3 K/mm3 MONOCYTE # (test code = MO#) 0.4 K/mm3 EOSINOPHIL # (test code = EO#) 0.23 K/mm3 BASOPHIL # (test code = BA#) 0.0 K/mm3 RBC MORPHOLOGY REQUIRED (test code NORMAL NORMAL = RBCM) PLATELET MORPHOLOGY REQUIRED (test NORMAL NORMAL code = PLTMR) UA RFLX MICR CULT IF [id number] 01:47:00 Test Item Value Reference Range Interpretation Comments UA COLOR (test code = COLU) STRAW YELLOW UA APPEARANCE (test code = CLEAR CLEAR APPU) UA GLUCOSE DIPSTICK (test code 3+ NEG A = DGLUU) UA BILIRUBIN DIPSTICK (test NEGATIVE NEG code = BILU) UA KETONE DIPSTICK (test code NEGATIVE NEG = KETU) UA SPECIFIC GRAVITY (test code 1.022 1.001-1.035 N = SGU) UA BLOOD DIPSTICK (test code = NEG NEG ZEUS) UA PH DIPSTICK (test code = 6.0 5-9 FEROZ) UA PROTEIN DIPSTICK (test code NEGATIVE NEG = PROU) UA UROBILINIOGEN DIPSTICK NEGATIVE mg/dL NEG (test code = URO) UA NITRITE DIPSTICK (test code NEG NEG = DYAN) UA LEUKOCYTE ESTERASE DIPSTICK 2+ NEG A (test code = LEUU) UA WBC (test code = WBCU) 3-5 #/hpf NONE SEEN A UA RBC (test code = RBCU) 3-5 #/hpf NONE SEEN A UA EPITHELIAL CELLS (test code RARE #/HPF RARE-FEW = EPIU) UA BACTERIA (test code = BACU) FEW /HPF RARE-FEW UA MUCUS (test code = MUCU) RARE NONE SEEN Indication for culture: Suprapubic PainSpecimen Description: CLEAN CATCH COMPREHENSIVE METABOLIC [id number] 01:47:00 Test Item Value Reference Range Interpretation Comments SODIUM (test code = NA) 133 mEq/L 135-145 L POTASSIUM (test code = K) 3.4 mEq/L 3.5-5.0 L CHLORIDE (test code = CL) 101 mEq/L 100-115 N CARBON DIOXIDE (test code = CO2) 27 mEq/L 22-31 N ANION GAP (test code = GAP) 8.90 10-20 L GLUCOSE (test code = GLU) 262 mg/dL 65-110 H BLOOD UREA NITROGEN (test code = 11 mg/dL 7-18 N BUN) GLOMERULAR FILTRATION RATE (test 121 ml/min >60 N code = GFR) CREATININE (test code = CREAT) 0.6 mg/dL 0.5-1.0 N TOTAL PROTEIN (test code = PROT) 6.1 gm/dL 6.3-8.2 L ALBUMIN (test code = ALB) 2.7 gm/dL 3.4-4.8 L CALCIUM (test code = CA) 7.7 mg/dL 8.4-10.2 L BILIRUBIN TOTAL (test code = BILT) 0.2 mg/dL 0.2-1.0 N SGOT/AST (test code = AST) 10 units/L 15-37 L SGPT/ALT (test code = ALT) 21 units/L 12-78 N ALKALINE PHOSPHATASE TOTAL (test 48 units/L 46-116 N code = ALKP) [id number] 01:47:00 Test Item Value Reference Range Interpretation Comments LIPASE (test code = LIP) 85 units/L 73-393 N ACETONE [id number] 01:47:00 Test Item Value Reference Range Interpretation Comments ACETONE QUAL (test code = ACETNQL) NEGATIVE BETA [id number] 01:47:00 Test Item Value Reference Range Interpretation Comments BETA HYDROBUTYRATE (test code = BETHYD)
[2021-02-22 22:54] LABS: Urine Blood 1+ (Negative); Urine Glucose 2+ (Negative); Urine Protein 2+ (Negative); Urine Specific Gravity >=1.030 (1.005-1.030)
[2021-02-22 22:55] LABS: Urine Specific Gravity/Preg >1.030 (1.005-1.030)
[2021-02-22] MEDS ORDERED: ONDANSETRON 4 MG/2 ML VIAL ONE (22:55)
[2021-02-22] MEDS ORDERED: NA CHLORIDE 0.9% 1,000 ML ONE (22:55)
[2021-02-22 23:01] LABS: Absolute Lymphocytes (CBC) 1.8 K/uL (0.7-4.9); Basophils % 0.2 % (0-1.3); Hematocrit 51.1 % (36.0-45.0); Lymphocytes % 6.9 % (15.3-44.8); RBC Red Blood Cell Count 5.59 M/uL (3.86-4.86)
[2021-02-22 23:23] LABS: Albumin 4.6 g/dL (3.4-5.0); Bilirubin Direct 0.1 mg/dL (0-0.2); Bilirubin Total 0.5 mg/dL (0.2-1.0); Potassium 4.2 mmol/L (3.5-5.1); Protein, Total 9.5 g/dL (6.4-8.2)
[2021-02-22 23:27] LABS: Blood Morphology Comment NOT SEEN (NOT SEEN); Platelet Estimate INCR; White Blood Cell Scan OK (OK)
--- NOTE | 2021-02-22 23:33 | EDPHYS ---
Physician Documentation [facility] Name: Rosalie Parekh Age: 25 yrs Sex: Female : 1995 Arrival Date: 02/22/2021 Time: 22:24 Bed 2 Private MD: ED Physician Drake aBldwin Historical: - Allergies: 02/22 22:27 No Known Allergies; rv - PMHx: 22:27 Diabetes - NIDDM; Anxiety; rv - PSHx: 22:27 None; rv - Immunization history:: Adult Immunizations up to date. - Social history:: Smoking status: Patient reports the use of cigarette tobacco products, smokes one pack cigarettes per day. Vital Signs: 22:24 BP 116 / 75 Sitting; Pulse 118; Resp 25 S; Temp 97.6(O); Pulse Ox 100% on R/A; Weight rv 74.84 kg; Height 5 ft. 2 in. (157.48 cm); 22:55 BP 145 / 77; Pulse 130; Resp 24; Pulse Ox 100% ; rr5 23:11 BP 136 / 85; Pulse 119; Resp 21; Pulse Ox 98% ; rr5 02/23 00:00 BP 116 / 82; Pulse 119; Resp 31; Pulse Ox 100% on R/A; rv 01:00 BP 127 / 90; Pulse 121; Resp 30; Pulse Ox 100% on R/A; rv 02/22 22:24 Body Mass Index 30.18 (74.84 kg, 157.48 cm) rv MDM: 02/22 22:29 Patient medically screened. tw4 02/22 22:30 Order name: Basic Metabolic Panel; Complete Time: 23:26 tw4 02/22 23:27 Interpretation: Normal except: CL 111; GLUC 417; CO2 6; GFR 54. tw4 02/22 22:30 Order name: CBC with Diff; Complete Time: 23:28 tw4 02/22 23:28 Interpretation: Normal except: WBC 26.20; RBC 5.59; HCT 51.1; MCV 91.5; HGB 16.1; MN% tw4 2.9; LYM% 6.9; ZURDO% 90.0; PLT 490; MCHC 31.4; NEUT A 23.6. 02/22 22:30 Order name: Hepatic Function; Complete Time: 23:26 tw4 02/22 23:27 Interpretation: Normal except: AST 9; ALK 133; TP 9.5; GLOB 4.9; A/G 0.9. 4 02/22 22:30 Order name: Lipase; Complete Time: 23:26 4 02/22 23:28 Interpretation: Within normal limits: LIP 78. tw4 02/22 22:37 Order name: Acetone, Serum; Complete Time: 23:26 [facility] 02/22 23:27 Interpretation: Abnormal: ACET MODERATE. 02/22 22:38 Order name: Glucose, Ancillary Testing; Complete Time: 23:26 EDMI 02/22 23:27 Interpretation: Abnormal: GLUC,ANCIL 359. [facility] 02/22 22:54 Order name: Urine Dipstick-Ancillary; Complete Time: 23:26 EDMS 02/22 23:28 Interpretation: Normal except: UGLUC 2+; UKET 3+; UBLD 1+; UPROT 2+. [facility] 02/22 22:54 Order name: Urine --Ancillary (enter results) 3 02/22 22:54 Order name: Urine --Ancillary; Complete Time: 23:26 [facility] 02/22 23:28 Interpretation: Normal except: USPGRP >1.030. 4 02/22 23:09 Order name: CBC Smear Scan EDMI 02/22 23:26 Order name: ABG [facility] 02/22 23:32 Order name: COVID-19 : Document "Date of Symptom Onset" if Symptomatic. rv 02/22 23:33 Order name: CORONAVIRUS EDMI 02/23 00:34 Order name: Type And Screen rr5 02/23 01:12 Order name: Glucose, Ancillary Testing EDMS 02/23 01:18 Order name: Urine Dipstick-Ancillary EDMS 02/23 01:20 Order name: Urine --Ancillary (enter results) tt3 02/23 01:58 Order name: Urine --Ancillary EDMS 02/23 02:10 Order name: Glucose, Ancillary Testing EDMS 02/23 03:00 Order name: Lactate EDMS 02/23 03:14 Order name: SARS-COV-2 RT PCR EDMS 02/23 03:23 Order name: Acetone Level EDMS 02/23 03:25 Order name: Glucose, Ancillary Testing EDMS 02/23 03:49 Order name: Basic Metabolic Panel EDMS 02/23 03:49 Order name: Amylase EDMS 02/23 04:08 Order name: Glucose, Ancillary Testing EDMS 02/23 04:29 Order name: ABG rv 02/23 04:34 Order name: ABG Arterial Blood Gas EDMS 02/23 05:16 Order name: Glucose, Ancillary Testing EDMS 02/23 06:10 Order name: Glucose, Ancillary Testing EDMS 02/23 06:33 Order name: ABO/RH no charge EDMS 02/23 07:06 Order name: Acetone Level EDMS 02/23 07:07 Order name: Glucose, Ancillary Testing EDMS 02/23 07:07 Order name: Basic Metabolic Panel EDMS 02/23 08:19 Order name: Glucose, Ancillary Testing EDMS 02/23 09:16 Order name: Glucose, Ancillary Testing EDMS 02/23 10:12 Order name: Glucose, Ancillary Testing EDMS 02/23 11:18 Order name: Basic Metabolic Panel EDMS 02/23 11:18 Order name: Glucose, Ancillary Testing EDMS 02/23 12:23 Order name: Glucose, Ancillary Testing EDMS 02/23 13:25 Order name: Glucose, Ancillary Testing EDMS 02/23 13:48 Order name: Acetone Level EDMS 02/23 14:14 Order name: Glucose, Ancillary Testing EDMS 02/23 15:06 Order name: Basic Metabolic Panel EDMS 02/23 15:33 Order name: Glucose, Ancillary Testing EDMS 02/23 16:13 Order name: Glucose, Ancillary Testing EDMS 02/23 17:13 Order name: Glucose, Ancillary Testing EDMS 02/23 17:16 Order name: Phosphorus EDMS 02/23 17:16 Order name: Magnesium EDMS 02/23 18:15 Order name: Glucose, Ancillary Testing EDMS 02/23 19:09 Order name: Basic Metabolic Panel EDMS 02/23 19:36 Order name: Glucose, Ancillary Testing EDMS 02/23 20:22 Order name: Glucose, Ancillary Testing EDMS 02/23 22:10 Order name: Glucose, Ancillary Testing EDMS 02/23 22:22 Order name: Basic Metabolic Panel EDMS 02/23 23:39 Order name: Glucose, Ancillary Testing EDMS 02/24 00:35 Order name: Glucose, Ancillary Testing EDMS 02/24 01:23 Order name: Glucose, Ancillary Testing EDMS 02/24 02:26 Order name: Glucose, Ancillary Testing EDMS 02/24 02:37 Order name: Blood Culture EDMS 02/24 02:52 Order name: Basic Metabolic Panel EDMS 02/24 04:25 Order name: Acetone Level EDMS 02/22 22:30 Order name: IV Saline Lock; Complete Time: 22:53 tw4 02/22 22:30 Order name: Labs collected and sent; Complete Time: 22:53 tw4 02/22 23:30 Order name: CXR XRAY [facility] 02/23 00:01 Order name: CT Head Brain wo Cont jb4 02/24 05:21 Order name: CBC with Automated Diff EDMS 02/24 05:35 Order name: Calcium Level EDMS 02/24 05:35 Order name: Phosphorus EDMS 02/24 05:35 Order name: Lipid Profile EDMS 02/24 05:35 Order name: Magnesium EDMS 02/24 06:47 Order name: Basic Metabolic Panel EDMS 02/24 08:08 Order name: Osmolality, Serum EDMS Administered Medications: 22:50 Drug: NS 0.9% 1000 ml Route: IV; Rate: 1 bolus; Site: right antecubital; rr5 02/23 01:06 Follow up: IV Status: Completed infusion; IV Intake: 1000ml rv 02/22 22:50 Drug: Zofran (Ondansetron) 4 mg Route: IVP; Site: right antecubital; rr5 02/23 01:06 Follow up: Response: No adverse reaction rv 02/22 22:54 CANCELLED (Other Intervention Used): Ondansetron 4 mg PO once rr5 02/23 00:00 Drug: Insulin Drip - (Insulin Regular Human 100 units, NS 0.9% 100 ml) {Co-Signature: rv rr5 (Ravinder Alvarado RN).} Route: IV; Rate: calculated rate; Site: right upper arm; 01:06 Follow up: IV Status: Infusion continued upon admission rv 00:00 Drug: NS 0.9% (30 ml/kg) 30 ml/kg Route: IV; Rate: bolus; Site: right upper arm; rr5 01:06 Follow up: IV Status: Infusion continued upon admission rv 00:00 Drug: Sodium Bicarbonate 50 mEq Route: IVP; Site: right upper arm; rr5 01:06 Follow up: Response: No adverse reaction rv 00:05 Drug: Sodium Bicarbonate 50 mEq Route: IVP; Site: right upper arm; rr5 01:06 Follow up: Response: No adverse reaction rv 04:27 Drug: NS 0.45 % 1000 ml Route: IV; Rate: bolus; Site: right upper arm; rv 05:33 Follow up: IV Status: Completed infusion; IV Intake: 1000ml rv Disposition: 02/22/21 23:32 Hospitalization ordered by Guzman Patterson for Inpatient Admission. Preliminary diagnosis is Diabetes mellitus due to underlying condition with ketoacidosis without coma. - Bed requested for [facility] ER HOLD. - Status is Inpatient Admission. sv - Condition is Stable. - Problem is an ongoing problem. - Symptoms are unchanged. Addendum: 03/27/2021 05:30 Addendum: HPI: Pt is a 25 year old female that come to the ED with complaint of anxiety t w4 and vomiting. Pt states that she cant keep any liquids down and states that she believes her BS is high. Pt complains of mild abdominal pain. Pt denies diarrhea, fever or chills . Addendum: ROS: Abdomen: positive for abdominal pain , nausea and vomiting negative for diarrhea rectal bleeding, rectal pain Psych: positive for anxiety, negative for suicidal or homicidal ideation negative for auditory or visual hallucinations All other systems negative except as marked . Addendum: PE: General: well developed well nourished female in mild distress HEENT: PERRLA,EO MS Neck supple Resp: CTAB, BS nl no rales wheezes CV: RRR, nl S1, S2 no murmurs no gallops Ab: soft ND, mild epigastric pain. Addendum: ED course : pt found to be in DKA will treat with DKA protocol and admit for intensive care. Signatures: Dispatcher [employer] EDMS Stacey Torres RN Malaika Galarza RN Estrada Gifford RN RN jb4 Drake Baldwin MD MD tw4 Daquan Hassan RN RN rv Roque, Raymond, RN RN rr5 Ravinder Alvarado RN rr5 Corrections: (The following items were deleted from the chart) 02/22 22:54 22:32 Zofran ODT [Ondansetron 4 mg PO once] ordered. tw4 rr5 22:54 22:53 Zofran ODT [Ondansetron 4 mg PO once] given. rr5 rr5 22:54 22:54 Zofran ODT [Ondansetron 4 mg PO once] ordered. rr5 rr5 23:54 23:32 Hospitalization Ordered by Guzman Patterson for Inpatient Admission. Preliminary mw diagnosis is Diabetes mellitus due to underlying condition with ketoacidosis without coma. Bed requested for Telemetry/MedSurg (Inpatient). Status is Inpatient Admission. Condition is Stable. Problem is an ongoing problem. Symptoms are unchanged. tw4 02/24 09:26 02/22 23:54 02/22/2021 23:32 Hospitalization Ordered by Guzman Patterson for Inpatient sv Admission. Preliminary diagnosis is Diabetes mellitus due to underlying condition with ketoacidosis without coma. Bed requested for [facility] ER HOLD. Status is Inpatient Admission. Condition is Stable. Problem is an ongoing problem. Symptoms are unchanged. mw
--- NOTE | 2021-02-22 23:33 | ER ---
Nurse's Notes [facility] Name: Rosalie Parekh Age: 25 yrs Sex: Female : 1995 Arrival Date: 02/22/2021 Time: 22:24 Bed 2 Private MD: Diagnosis: Diabetes mellitus due to underlying condition with ketoacidosis without coma Presentation: 02/22 22:24 Chief complaint: EMS states: PATIENT HAS BEEN HAVING ANXIETY EPISODES, PATIENT STATED rv THAT EARLIER TODAY HER SUGAR WAS HIGH AND SHE TOOK HER MEDICINE, HAS NOT BEEN ABLE TO EAT OR DRINK ALL DAY, VOMITING AND HAVING ABDOMINAL PAIN, AND HEADACHE. EMS GAVE ZOFRAN 2MG. Coronavirus screen: Client denies travel out of the [place] in the last 14 days. Ebola Screen: No symptoms or risks identified at this time. Initial Sepsis Screen: Does the patient meet any 2 criteria? No. Patient's initial sepsis screen is negative. Does the patient have a suspected source of infection? No. Patient's initial sepsis screen is negative. Risk Assessment: Do you want to hurt yourself or someone else? Patient reports no desire to harm self or others. Onset of symptoms was February 22, 2021. 22:24 Method Of Arrival: EMS: [facility] rv 22:24 Acuity: TANYA 3 rv Triage Assessment: 22:27 General: Appears ill, Behavior is anxious. Pain: Complains of pain in abdomen, head. rv EENT: No signs and/or symptoms were reported regarding the EENT system. Neuro: Level of Consciousness is awake, alert, obeys commands, Oriented to person, place, time, situation, Reports headache. Cardiovascular: Patient's skin is warm and dry. Respiratory: Airway is patent Respiratory effort is even, unlabored. GI: Reports lower abdominal pain, upper abdominal pain, intolerance of fluids, intolerance of food, nausea, vomiting. Derm: Skin is intact. Historical: - Allergies: 22:27 No Known Allergies; rv - PMHx: 22:27 Diabetes - NIDDM; Anxiety; rv - PSHx: 22:27 None; rv - Immunization history:: Adult Immunizations up to date. - Social history:: Smoking status: Patient reports the use of cigarette tobacco products, smokes one pack cigarettes per day. Screenin:28 Abuse screen: Denies threats or abuse. Denies injuries from another. Nutritional rv screening: No deficits noted. Tuberculosis screening: No symptoms or risk factors identified. Fall Risk None identified. Assessment: 22:30 General: Appears in no apparent distress. uncomfortable, ill, Behavior is anxious. rr5 Pain: Complains of pain in abdomen Pain Quality of pain is described as aching. 22:30 Neuro: Level of Consciousness is awake, alert, obeys commands, Oriented to person, rr5 place, time, Reports headache. Cardiovascular: Capillary refill < 3 seconds Patient's skin is warm and dry. Respiratory: Airway is patent Respiratory effort is even, unlabored, Respiratory pattern is regular, symmetrical, tachypnea. GI: Abdomen is round non-distended, Reports lower abdominal pain, upper abdominal pain, nausea, vomiting. : No signs and/or symptoms were reported regarding the genitourinary system. EENT: No signs and/or symptoms were reported regarding the EENT system. Derm: Skin is pale. Musculoskeletal: Capillary refill < 3 seconds. Vital Signs: 22:24 BP 116 / 75 Sitting; Pulse 118; Resp 25 S; Temp 97.6(O); Pulse Ox 100% on R/A; Weight rv 74.84 kg; Height 5 ft. 2 in. (157.48 cm); 22:55 BP 145 / 77; Pulse 130; Resp 24; Pulse Ox 100% ; rr5 23:11 BP 136 / 85; Pulse 119; Resp 21; Pulse Ox 98% ; rr5 02/23 00:00 BP 116 / 82; Pulse 119; Resp 31; Pulse Ox 100% on R/A; rv 01:00 BP 127 / 90; Pulse 121; Resp 30; Pulse Ox 100% on R/A; rv 04 22:24 Body Mass Index 30.18 (74.84 kg, 157.48 cm) rv ED Course: 02/22 22:24 Patient arrived in ED. rv 22:27 Triage completed. rv 22:28 Arm band placed on right wrist. Patient placed in the treatment room, on a stretcher, rv Patient notified of wait time. 22:28 Patient has correct armband on for positive identification. Pulse ox on. NIBP on. rv 22:29 Drake Baldwin MD is Attending Physician. tw4 22:49 Inserted saline lock: 20 gauge in right antecubital area, using aseptic technique. oe Blood collected. 23:07 Daquan Hassan, MURTAZA is Primary Nurse. rv 23:25 Notified ED physician of a critical lab result(s). CO2 6, glucose 417 candy from rr5 laboratory called. 23:31 Guzman Patterson is Hospitalizing Provider. tw4 23:49 CXR XRAY In Process Unspecified. EDMS 02/23 00:25 CT Head Brain wo Cont In Process Unspecified. EDMS 01:05 No provider procedures requiring assistance completed. IV is patent, with fluids rv infusing freely, Patient admitted, IV remains in place. 09:45 Primary Nurse role handed off by Daquan Hassan RN sv 09:45 Stacey Torres RN is Primary Nurse. sv 19:21 Primary Nurse role handed off by Stacey Torres RN sv 22:36 Mark Aaron RN is Primary Nurse. mg2 02/24 08:47 Primary Nurse role handed off by Mark Aaron RN sv 08:47 Stacey Torres RN is Primary Nurse. sv Administered Medications: 02/22 22:50 Drug: NS 0.9% 1000 ml Route: IV; Rate: 1 bolus; Site: right antecubital; rr5 02/23 01:06 Follow up: IV Status: Completed infusion; IV Intake: 1000ml rv 02/22 22:50 Drug: Zofran (Ondansetron) 4 mg Route: IVP; Site: right antecubital; rr5 02/23 01:06 Follow up: Response: No adverse reaction rv 02/22 22:54 CANCELLED (Other Intervention Used): Ondansetron 4 mg PO once rr5 02/23 00:00 Drug: Insulin Drip - (Insulin Regular Human 100 units, NS 0.9% 100 ml) {Co-Signature: rv rr5 (Ravinder Alvarado RN).} Route: IV; Rate: calculated rate; Site: right upper arm; 01:06 Follow up: IV Status: Infusion continued upon admission rv 00:00 Drug: NS 0.9% (30 ml/kg) 30 ml/kg Route: IV; Rate: bolus; Site: right upper arm; rr5 01:06 Follow up: IV Status: Infusion continued upon admission rv 00:00 Drug: Sodium Bicarbonate 50 mEq Route: IVP; Site: right upper arm; rr5 01:06 Follow up: Response: No adverse reaction rv 00:05 Drug: Sodium Bicarbonate 50 mEq Route: IVP; Site: right upper arm; rr5 01:06 Follow up: Response: No adverse reaction rv 04:27 Drug: NS 0.45 % 1000 ml Route: IV; Rate: bolus; Site: right upper arm; rv 05:33 Follow up: IV Status: Completed infusion; IV Intake: 1000ml rv Intake: 01:06 IV: 1000ml; Total: 1000ml. rv 05:33 IV: 1000ml; Total: 2000ml. rv Outcome: 02/22 23:32 Decision to Hospitalize by Provider. tw4 02/23 01:05 Admitted to ER Hold. Please see [facility] for further documentation. rv Condition: stable Instructed on the need for admit. 02/24 09:26 Patient left the ED. sv Signatures: Dispatcher [employer] Stacey Cash RN RN Tim Hodge Terrence, MD MD tw4 Mark Aaron RN RN [facility] Daquan Hassan RN RN rv Ravinder Alvarado RN RN rr5 Ravinder Alvarado RN rr5 Corrections: (The following items were deleted from the chart) 02/22 22:54 22:50 Ondansetron 4 mg PO rr5 rr5
[2021-02-22 23:40] LABS: Arterial Blood Carboxyhemoglob 1.2 % (0-1.5); Blood Gas Oxyhemoglobin 93.9 % (94-97); Blood O2 Saturation 96.1 % (92-98.5)
[2021-02-22] MEDS ORDERED: INSULIN -REGULAR HUMAN 50 UNIT/0.5 ML ML ONE (23:47)
[2021-02-22] MEDS ORDERED: NA CHLORIDE 0.9% 2,000 ML ONE (23:47)
[2021-02-22] MEDS ORDERED: NA CHLORIDE 0.9% 100 ML ONE (23:47)
[2021-02-23 01:18] LABS: Urine Blood 1+ (Negative); Urine Glucose 2+ (Negative); Urine Protein 2+ (Negative); Urine Specific Gravity >=1.030 (1.005-1.030)
[2021-02-23 01:58] LABS: Urine Specific Gravity/Preg >1.030 (1.005-1.030)
[2021-02-23] MEDS ORDERED: ONDANSETRON 4 MG/2 ML VIAL IV PRN (02:10)
[2021-02-23] MEDS ORDERED: NACHLORIDE 0.45% 1,000 ML with POTASSIUM CL 20 MEQ IV SCH ×4 (02:10→09:00)
[2021-02-23] MEDS ORDERED: D5.45NS W/KCL 20MEQ 1,000 ML IV SCH (02:10)
[2021-02-23] MEDS ORDERED: INSULIN -REGULAR HUMAN 100 UNIT in NA CHLORIDE 0.9% 100 ML IV SCH (02:10)
[2021-02-23] MEDS ORDERED: NA CHLORIDE 0.9% 1,000 ML ONE (02:21)
[2021-02-23] MEDS ORDERED: LORazepam 2 MG/ML VIAL ONE (02:21)
--- NOTE | 2021-02-23 02:25 | P.HP ---
Certification for Inpatient Patient admitted to: Inpatient With expected LOS: >2 Midnights Patient will require the following post-hospital care: None Practitioner: I am a practitioner with admitting privileges, knowledge of patient current condition, hospital course, and medical plan of care. Services: Services provided to patient in accordance with Admission requirements found in Title 42 Section 412.3 of the Code of Federal Regulations Patient History Date of Service: 02/23/21 Reason for admission: DKA History of Present Illness: Ms. Parekh is a 25 yo F with T1DM here today for nausea, vomiting and headache beginning this morning. She says she gave herself insulin this morning, but did not eat afterward and then her symptoms started. She reports weakness, SOB. She denies night sweats, chills, cough, urinary symptoms. urine dipstick with glucose and ketones, negative for nitrites and leukocyte esterase, microscopy pending. CXR wnl. CT Head wnl. AGMA 24, Na 141, Cl 111, HCO3 6, K 4.2. WBC 26.2 with 90% Neutrophils. ABG - pH 6.94, CO2 7.6, O2 110, HCO3 1.6. Glu 417. Allergies No Known Allergies Allergy (Unverified 02/23/21 01:35) - Past Medical/Surgical History Has patient received pneumonia vaccine in the past: No Diabetic: Yes -: T1DM -: C section - Family History Family History: Reviewed- Non-Contributory - Social History Smoking Status: Current every day smoker Counseled patient to stop smoking for: less than 10 minutes Smoking therapy provided: No Patient receptive to therapy: No Alcohol use: No CD- Drugs: No Caffeine use: Yes Place of Residence: Home Review of Systems General: Weakness, Malaise, As per HPI Eyes: Unremarkable ENT: Unremarkable Respiratory: Shortness of Breath, As per HPI Cardiovascular: Unremarkable Gastrointestinal: Nausea, Vomiting, As per HPI Genitourinary: Unremarkable Musculoskeletal: Unremarkable Integumentary: Unremarkable Neurological: Unremarkable Lymphatics: Unremarkable Physical Examination - Vital Signs Blood Pressure: 136/96 Pulse: 135 Respirations: 31 Pulse Ox (%): 100 - Physical Exam General: Alert, In no apparent distress, Oriented x3, Other (agitated) HEENT: Atraumatic, Normocephalic, PERRLA, Mucous membr. moist/pink, EOMI, Sclerae nonicteric Neck: Supple, 2+ carotid pulse no bruit, JVD not distended, No Thyromegaly, No LAD Respiratory: Clear to auscultation bilaterally, Normal air movement Cardiovascular: No edema, Normal pulses, Regular rate/rhythm, Normal S1 S2, No gallops, No rubs, No murmurs Capillary refill: <2 Seconds Gastrointestinal: Normal bowel sounds, Soft and benign, Non-distended, No ascites, No tenderness, No masses, No rebound, No guarding Musculoskeletal: No clubbing, No swelling, No contractures, No erythema, No tenderness, No warmth Integumentary: No rashes, No breakdown, No significant lesion, No tenderness/swelling, No erythema, No warmth, No cyanosis Neurological: Normal strength at 5/5 x4 extr, Normal tone, Sensation intact, Cranial nerves 3-12 intact, Abnormal speech, Abnormal affect Lymphatics: No axilla or inguinal lymphadenopathy - Studies Laboratory Data (last 24 hrs) 02/22/21 22:45: WBC 26.20 H*, Hgb 16.1 H, Hct 51.1 H, Plt Count 490 H 02/22/21 22:45: Sodium 141, Potassium 4.2, BUN 9, Creatinine 1.20, Glucose 417 H*, Total Bilirubin 0.5, AST 9 L, ALT 26, Alkaline Phosphatase 133 H, Lipase 78 Assessment and Plan - Problems (Diagnosis) (1) DKA (diabetic ketoacidoses) Current Visit: Yes Status: Acute Qualifiers: Diabetes mellitus type: type 1 Diabetes mellitus complication detail: without coma Qualified Code(s): E10.10 - Type 1 diabetes mellitus with ke toacidosis without coma (2) T1DM (type 1 diabetes mellitus) Current Visit: Yes Status: Chronic Qualifiers: Diabetes mellitus complication status: with hyperglycemia Qualified Code(s): E10.65 - Type 1 diabetes mellitus with hyperglycemia (3) Tobacco use Current Visit: Yes Status: Chronic - Plan continue with 1/2NS+KCl IVF until BG is <250 then switch to D51/2NS+KCl continue with IV insulin drip BMP q4hr to monitor K+ and AG closure, BG checks q1hr remain NPO until AG closure bicarb replaced in ED, will continue to monitor on repeat BMP CXR wnl, urine dipstick with ketones and glucose urine microscopy pending, blood cultures pending Discharge Plan: Home Plan to discharge in: 48 Hours - Advance Directives Does patient have a Living Will: No Does patient have a Durable POA for Healthcare: No - Code Status/Comfort Care Code Status Assessed: Yes (full code) Critical Care: Yes Time Spent Managing Pts Care (In Minutes): 70
[2021-02-23] MEDS ORDERED: NACHLORIDE 0.45% 1,000 ML IV ONE ×2 (02:37→04:49)
[2021-02-23] MEDS ORDERED: D5 0.45 NS 1,000 ML IV ONE (03:26)
[2021-02-23] MEDS ORDERED: KCL 20 MEQ/100 mL IVPB 20 MEQ/100 ML BAG IV ONE (03:26)
[2021-02-23 03:47] LABS: Amylase 70 U/L (25-115); BUN Blood Urea Nitrogen 8 mg/dL (7-18); Glucose Level 242 mg/dL (74-106); Sodium Level 152 mmol/L (136-145)
[2021-02-23 03:48] LABS: Potassium 3.6 mmol/L (3.5-5.1)
[2021-02-23 03:49] LABS: Bicarbonate 3 mmol/L (21-32)
[2021-02-23 04:33] LABS: Arterial Blood Carboxyhemoglob 1.4 % (0-1.5); Blood Gas Oxyhemoglobin 81.1 % (94-97); Blood O2 Saturation 83.2 % (92-98.5)
[2021-02-23] MEDS ORDERED: NA CHLORIDE 0.9% 500 ML ONE (04:35)
[2021-02-23 06:51] LABS: Potassium 3.5 mmol/L (3.5-5.1)
--- NOTE | 2021-02-23 08:20 | RAD REPORT ---
EXAM DESCRIPTION: Estephania Single View02/22/2021 11:50 pm CLINICAL HISTORY: Vomiting COMPARISON: 2017 FINDINGS: The lungs appear clear of acute infiltrate. The heart is normal size IMPRESSION: No acute abnormalities displayed
[2021-02-23] MEDS: HEPARIN 5000 UNIT/ML 1 ML VIAL SQ SCH ×2 (10:00→21:00)
[2021-02-23] MEDS ORDERED: HEPARIN 5000 UNIT/ML 1 ML VIAL ONE ×2 (10:12→21:26)
[2021-02-23] MEDS: D5W 1,000 ML with NA BICARB 8.4% 100 MEQ IV SCH ×4 (11:00→20:43)
[2021-02-23 11:15] LABS: BUN Blood Urea Nitrogen 6 mg/dL (7-18); Glucose Level 219 mg/dL (74-106); Potassium 3.1 mmol/L (3.5-5.1); Sodium Level 148 mmol/L (136-145)
[2021-02-23 11:17] LABS: Bicarbonate 9 mmol/L (21-32)
[2021-02-23] MEDS: ACETAMINOPHEN 500 MG TAB PO PRN ×2 (14:32→20:45)
[2021-02-23 15:05] LABS: Potassium 2.7 mmol/L (3.5-5.1)
--- NOTE | 2021-02-23 16:27 | P.PN ---
Date of Service: 02/23/21 Patient with severe metabolic acidosis. Anion gap significantly improved. Blood sugar readings improved. UA: no evidence of UTI Patient want to discharge as soon as possible to go and take care of her 2-month-old baby. Plan: Bicarb drip to treat metabolic acidosis. Serial BMP. Monitor and replete electrolytes as needed. Replace potassium IV. Keep NPO except water. Continue insulin drip until metabolic acidosis has significantly improved. Empiric IV Rocephin given severe leukocytosis. Monitor CBC to follow leukocytosis.
[2021-02-23] MEDS: POTASSIUM CL 40 MEQ in NA CHLORIDE 0.9% 500 ML IV SCH ×2 (17:00→21:00)
[2021-02-23] MEDS ORDERED: POTASSIUM CL 40 MEQ in NA CHLORIDE 0.9% 500 ML IV SCH (17:00)
[2021-02-23 17:15] LABS: Magnesium 1.6 mg/dL (1.8-2.4)
[2021-02-23 17:16] LABS: Phosphorus 0.7 mg/dL (2.5-4.9)
[2021-02-23] MEDS ORDERED: CEFTRIAXONE/SWI 1gm 1 GM/10 ML SYR IVP SCH (18:00)
[2021-02-23] MEDS ORDERED: Magnesium Sulfate 2gm IVPB 2 G/50 ML BAG IV ONE ×2 (18:18→18:57)
[2021-02-23] MEDS ORDERED: CEFTRIAXONE/SWI 1gm 1 GM/10 ML SYR ONE (18:19)
[2021-02-23] MEDS ORDERED: POTASSIUM PHOS 20 MM in NA CHLORIDE 0.9% 500 ML IV ONE (19:00)
[2021-02-23 19:05] LABS: BUN Blood Urea Nitrogen 5 mg/dL (7-18); Bicarbonate 17 mmol/L (21-32); Glucose Level 188 mg/dL (74-106); Sodium Level 143 mmol/L (136-145)
[2021-02-23 19:08] LABS: Potassium 2.6 mmol/L (3.5-5.1)
--- NOTE | 2021-02-23 20:12 | RAD REPORT ---
EXAM DESCRIPTION: CT - Head Brain Wo Cont - 02/23/2021 7:05 am CLINICAL HISTORY: 25-year-old female with mental status change. COMPARISON: None. TECHNIQUE: CT brain without contrast. This exam was performed according to our departmental dose opt imization program which includes use of automated exposure control, adjustment of the mA and/or kV ac cording to patient size and/or use of iterative reconstruction technique. FINDINGS: The ventricles, sulci, and cisterns are within normal limits. The bullard-white matter diff erentiation is preserved. There is no mass effect, midline shift, intra- or extra-axial fluid colle ction/acute hemorrhage. The osseous structures are unremarkable. The paranasal sinuses reveals se cretions within the dependent bilateral maxillary sinuses suggesting acute sinus disease. The mastoid air cells are clear. IMPRESSION: 1. No acute intracranial abnormalities. 2. Paranasal sinus disease. Electronically signed by: Ratna Poe MD 02/23/2021 12:38 AM CDT Due to temporary technical issues with the PACS/Fluency reporting system, reports are being signed by the in house radiologists without review as a courtesy to insure prompt reporting. The interpreting radiologist is fully responsible for the content of the report.
[2021-02-23] MEDS ORDERED: MAGNESIUM SULFATE 1 gm IVPB 1 GM/100 ML BAG IV ONE (20:34)
[2021-02-23] MEDS ORDERED: ACETAMINOPHEN 500 MG TAB ONE (21:26)
[2021-02-23 22:21] LABS: BUN Blood Urea Nitrogen 4 mg/dL (7-18); Bicarbonate 15 mmol/L (21-32); Glucose Level 226 mg/dL (74-106); Sodium Level 141 mmol/L (136-145)
[2021-02-24 02:34] VITALS: BMI 30.2
[2021-02-24 02:49] LABS: BUN Blood Urea Nitrogen 3 mg/dL (7-18); Bicarbonate 20 mmol/L (21-32); Glucose Level 165 mg/dL (74-106); Sodium Level 144 mmol/L (136-145)
[2021-02-24 02:52] LABS: Potassium 2.7 mmol/L (3.5-5.1)
[2021-02-24] MEDS: KCL 20 MEQ/100 mL IVPB 20 MEQ/100 ML BAG IV SCH ×2 (04:00→06:17)
[2021-02-24] MEDS: D5W 1,000 ML with NA BICARB 8.4% 100 MEQ IV SCH ×2 (04:10)
[2021-02-24] MEDS ORDERED: KCL 20 MEQ/100 mL IVPB 20 MEQ/100 ML BAG IV ONE ×2 (04:22→06:42)
[2021-02-24 05:10] LABS: Absolute Lymphocytes (CBC) 2.2 K/uL (0.7-4.9); Basophils % 0.4 % (0-1.3); Hematocrit 32.4 % (36.0-45.0); RBC Red Blood Cell Count 3.83 M/uL (3.86-4.86)
[2021-02-24 05:35] LABS: Phosphorus 0.8 mg/dL (2.5-4.9)
[2021-02-24 06:40] VITALS: TEMP 98.2
[2021-02-24 06:47] LABS: BUN Blood Urea Nitrogen 4 mg/dL (7-18); Bicarbonate 24 mmol/L (21-32); Glucose Level 134 mg/dL (74-106); Potassium 2.7 mmol/L (3.5-5.1); Sodium Level 143 mmol/L (136-145)
[2021-02-24] MEDS ORDERED: GLUCAGON 1 MG/VIAL IM PRN (07:37)
[2021-02-24] MEDS: INSULIN GLARGINE 100 UNITS/ML SQ SCH ×2 (07:37→08:00)
[2021-02-24] MEDS ORDERED: D50W 25 GM/50 ML SYRINGE IV PRN (07:37)
[2021-02-24] MEDS ORDERED: POTASSIUM PHOS 30 MM in NA CHLORIDE 0.9% 500 ML IV ONE (07:45)
[2021-02-24] MEDS ORDERED: INSULIN GLARGINE 100 UNITS/ML SQ ONE (07:59)
[2021-02-24] MEDS ORDERED: PNEUMOCOCCAL VACCINE 0.5 ML IMVAC ONE (09:00)
[2021-02-24 09:17] VITALS: O2SAT 98
[2021-02-24 09:22] VITALS: BP 107/76
--- NOTE | 2021-02-24 14:20 | P.DS ---
Admission Date: 02/23/21 Discharge Date: 02/24/21 Disposition: AMA-LEFT AGAINST MEDICAL ADVIC Reason for Admission: DKA - Problems (1) DKA (diabetic ketoacidoses) Status: Acute Qualifiers: Diabetes mellitus type: type 1 Diabetes mellitus complication detail: without coma Qualified Code(s): E10.10 - Type 1 diabetes mellitus with ketoacidosis without coma Brief History of Present Illness: Ms. Parekh is a 25 yo F with T1DM here today for nausea, vomiting and headache beginning this morning. She says she gave herself insulin this morning, but did not eat afterward and then her symptoms started. She reports weakness, SOB. She denies night sweats, chills, cough, urinary symptoms. urine dipstick with glucose and ketones, negative for nitrites and leukocyte esterase, microscopy pending. CXR wnl. CT Head wnl. AGMA 24, Na 141, Cl 111, HCO3 6, K 4.2. WBC 26.2 with 90% Neutrophils. ABG - pH 6.94, CO2 7.6, O2 110, HCO3 1.6. Glu 417. Hospital Course: Patient admitted to the ICU with DKA protocol initiated stated in the ED continued with insulin drip, aggressive IV hydration. Patient at CVA metabolic acidosis which was managed with bicarb drip. She has severe leukocytosis. UA showed no evidence of UTI. Leukocytosis resolved with IV hydration and likely secondary to hemoconcentration from dehydration. Had other electrolyte abnormalities including hypophosphatemia and hypokalemia. Anionic gap closed, patient was transitioned to subcutaneous insulin. She attempted multiple times to sign out against medical advice but I discussed with her risk of signing out against medical advise and was convinced to stay which she did overnight. She had severe hypophosphatemia the following day, which was being corrected but patient would not wait for further treatment and signed out against medical advice. Vital Signs/Physical Exam: Temp Pulse Resp BP Pulse Ox 98.2 F 87 16 107/76 99 02/24/21 06:00 02/24/21 08:00 02/24/21 08:00 02/24/21 08:00 02/24/21 08:00 Laboratory Data at Discharge: WBC 5.10 K/uL (4.3-10.9) D 02/24/21 05:00 Hgb 11.0 g/dL (12.0-15.0) L D 02/24/21 05:00 Hct 32.4 % (36.0-45.0) L D 02/24/21 05:00 Plt Count 239 K/uL (152-406) D 02/24/21 05:00 Sodium 143 mmol/L (136-145) 02/24/21 06:21 Potassium 2.7 mmol/L (3.5-5.1) L* 02/24/21 06:21 BUN 4 mg/dL (7-18) L 02/24/21 06:21 Creatinine 0.50 mg/dL (0.55-1.3) L 02/24/21 06:21 Glucose 134 mg/dL (74-106) H 02/24/21 06:21 Phosphorus Cancelled 02/24/21 Unknown Magnesium 2.0 mg/dL (1.8-2.4) 02/24/21 05:00 Total Bilirubin 0.5 mg/dL (0.2-1.0) 02/22/21 22:45 AST 9 U/L (15-37) L 02/22/21 22:45 ALT 26 U/L (12-78) 02/22/21 22:45 Alkaline Phosphatase 133 U/L (45-117) H 02/22/21 22:45 Triglycerides 127 mg/dL (<150) 02/24/21 05:00 Cholesterol 167 mg/dL (<200) 02/24/21 05:00 HDL Cholesterol 38 mg/dL (40-60) L 02/24/21 05:00 Cholesterol/HDL Ratio 4.39 02/24/21 05:00 Amylase 70 U/L (25-115) 02/23/21 03:00 Lipase 78 U/L (73-393) 02/22/21 22:45 Followup: NONE,NONE [Primary Care Provider] -
== END 2021-02-24 09:25 | disposition left against medical advice (07) | DRG 639 ==
LOC: ER 22:18 → ERHOLD 02-23 01:12
PROVIDERS: ADMIT Internal Medicine; ATTEND Internal Medicine
PROC: 5A09357 Assistance with Respiratory Ventilation, Less than 24 Consecutive Hours, Continuous Positive Airway Pressure (ICD-10-PCS; principal; 2021-02-23)
DX: E10.10 Type 1 diabetes mellitus with ketoacidosis without coma (principal); F17.210 Nicotine dependence, cigarettes, uncomplicated; D72.829 Elevated white blood cell count, unspecified; E86.0 Dehydration; E87.6 Hypokalemia; E83.39 Other disorders of phosphorus metabolism; Z53.29 Procedure and treatment not carried out because of patient's decision for other reasons; Z20.822 Contact with and (suspected) exposure to COVID-19
CPT/HCPCS: 36415; 70450; 71045; 80048; 80061; 80076; 81003; 81025; 82010; 82150; 82310; 82805; 82947; 83605; 83690; 83735; 83930; 84100; 85025; 86850; 86900; 86901; 87040; 94760; 99285; J0696; J1644; J1815; J2405; J3475; J3480; J7030; J7040; J7799; U0003

== ENCOUNTER 2021-02-28 12:38 | Inpatient (IN) | payer OTHER ==
--- OUTSIDE RECORDS SUMMARY | 2021-02-28 12:43 | XMS REPORT | Continuity of Care Document ---
:1995 Author Organization [facility] t Address [address] [place] [address] Care Team Providers Name Role Phone Jarad JOHANSEN Attending Clinician Payers Payer Name Policy Type Policy Number Effective Date Expiration Date S ource Problems This patient has no known problems. Allergies, Adverse Reactions, Alerts Allergy Allergy Status Severity Reaction(s) Onset Inactive Treating Comm ents Source Name Type Date Date Clinician No Known DA Active U [facility]22 [facility] 00:00: [address] No Known DA Active U 2019-11 [facility] 11-28 [facility] 00:00: [address] No Known DA Active U 2019-11 [facility] 0-03 [place] [facility] 00:00: [address] Medications This patient has no known medications. Procedures This patient has no known procedures. Encounters Start End Encounter Admission Attending Care Care Encounter Source Date/Time Date/Time Type Type Clinicians Facility Department ID 2020-09-20 2020-09-20 RefRADHA Beltran [id number] 00:00:00 00:00:00 Constanza Duval [id number] Marlen [id number] Profrubinio [phone] [facility] 220 [facility] 2020-07-16 2020-07-16 RADHA Pulliam [id number] 00:00:00 00:00:00 Constanza Duval [id number] Marlen [id number] [phone] [address] Results Test Description Test Time Test Comments Results Result Comments Source PLACENTA THIRD TRIMESTER 2020-12-07 11:28:00 Test Item Value Reference Range Interpretation Comme nts PLACENTA RUN DATE: THIRD 12/07/20 [facility] PAGE 1 RUN TIME: 1403 TRIMESTER Specimen Inquiry RUN USER: INTERFACE (test code = PLACIII) PATIENT: TASHI MOSQUERA LOC: MICHAEL U #: [id number] AGE/SX: / ROOM: 1929 RE11/29/20REG DR: Natalie Garcia MD : 89 BED: A DIS: 12/03/20 STATUS: DIS IN TLOC: SPEC #: [id number] RECD: STATUS: REKHA KO #: [id number] THERESE: 11/30/20- SUBM DR: Natalie Garcia MD ENTERED: 12/01/20 SP TYPE: PLACIII OTHR DR: ORDERED: LEVEL V SURGICA CODES: [id number] - PLACENTA, NOS PROCEDURES: LEVEL V SURGICA [...] for recurr ence in future pregnancies. CPT: 57426 pkg/wpd GROSS DESCRIPTION The specimen was received in a container, labeled with the patient's name, unit number and designated "placenta". The following attributes are observed: Cord insertion: 1 cm from margin CONTINUED ON NEXT PAGE RUN DATE: 12/07/20 [facility] PAGE 2 RUN TIME: 1403 Specimen Inquiry RUN USER: INTERFACE SPEC #: [id number] PATIENT: TASHI MOSQUERA #[id number] (Continued) GROSS DESCRIPTION (Continued) Cord length: 30 [...] Barone 12/07/20 1128 END OF REPO RT [id number] 11:58:00 Test Item Value Reference Range Interpretation Comments GLUBED (test code = GLUBED) 71 mg/dL 65-110 N [id number] 06:51:00 Test Item Value Reference Range Interpretation Comments GLUBED (test code = GLUBED) 80 mg/dL 65-110 N [id number] 21:24:00 Test Item Value Reference Range Interpretation Comments GLUBED (test code = GLUBED) 103 mg/dL 65-110 N [id number] 15:15:00 Test Item Value Reference Range Interpretation Comments GLUBED (test code = GLUBED) 206 mg/dL 65-110 H [id number] 09:56:00 Test Item Value Reference Range Interpretation Comments GLUBED (test code = GLUBED) 200 mg/dL 65-110 H [id number] 06:48:00 Test Item Value Reference Range Interpretation Comments GLUBED (test code = GLUBED) 64 mg/dL 65-110 L [id number] 21:12:00 Test Item Value Reference Range Interpretation Comments GLUBED (test code = GLUBED) 186 mg/dL 65-110 H [id number] 14:15:00 Test Item Value Reference Range Interpretation Comments GLUBED (test code = GLUBED) 177 mg/dL 65-110 H [id number] 10:42:00 Test Item Value Reference Range Interpretation Comments GLUBED (test code = GLUBED) 242 mg/dL 65-110 H HGB [id number] 08:21:00 Test Item Value Reference Range Interpretation Comments HEMOGLOBIN (test code = HGB) 11.7 g/dL 10.7-13.9 N HEMATOCRIT (test code = HCT) 36.4 % 32.1-42.1 N [id number] 06:49:00 Test Item Value Reference Range Interpretation Comments GLUBED (test code = GLUBED) 115 mg/dL 65-110 H [id number] 22:46:00 Test Item Value Reference Range Interpretation Comments GLUBED (test code = GLUBED) 129 mg/dL 65-110 H [id number] 19:28:00 Test Item Value Reference Range Interpretation Comments GLUBED (test code = GLUBED) 221 mg/dL 65-110 H [id number] 17:42:00 Test Item Value Reference Range Interpretation Comments GLUBED (test code = GLUBED) 359 mg/dL 65-110 H [id number] 10:51:00 Test Item Value Reference Range Interpretation Comments GLUBED (test code = GLUBED) 126 mg/dL 65-110 H ARTERIAL BLOOD [id number] 10:01:00 Test Item Value Reference Range Interpretation [...] FIO2 (test code = FIO2A) 21.0 % PaO2/[id number] 10:01:00 Test Item Value Reference Range Interpretation Comments PaO2/FiO2 (test code = XYN8CBM3) mm/Hg ARTERIAL BLOOD [id number] 10:01:00 Test Item Value Reference Range Interpretation [...] FIO2 (test code = FIO2A) 21.0 % PaO2/[id number] 10:01:00 Test Item Value Reference Range Interpretation Comments PaO2/FiO2 (test code = RQC5IPZ8) 70.40 mm/Hg CAPILLARY BLOOD [id number] 10:00:00 Test Item Value Reference Range Interpretation [...] FIO2 (test 21.0 % code = FIO2C) [id number] 06:32:00 Test Item Value Reference Range Interpretation Comments GLUBED (test code = GLUBED) 183 mg/dL 65-110 H [id number] 02:15:00 Test Item Value Reference Range Interpretation Comments GLUBED (test code = GLUBED) 82 mg/dL 65-110 N [id number] 22:52:00 Test Item Value Reference Range Interpretation Comments GLUBED (test code = GLUBED) 200 mg/dL 65-110 H AG HEPATITIS B [id number] 22:46:00 Test Item Value Reference Range Interpretation Comments AG HEPATITIS B SURFACE (test code NONREACTIVE NONREACTIVE = HBSAG) IS CONSENT FORM SIGNED FOR HIV TESTING? YAB HEPATITIS C [id number] 22:46:00 Test Item Value Reference Range Interpretation Comments AB HEPATITIS C (test code = NONREACTIVE NONREACTIVE HCVAB) SIGNAL TO CUTOFF (test code = 0.03 <0.80 N CUTOFF) IS CONSENT FORM SIGNED FOR HIV TESTING? YAB [id number] 22:46:00 Test Item Value Reference Range Interpretation Comments AB TREPONEMA (test code = TREPAB) NONREACTIVE NONREACTIVE IS CONSENT FORM SIGNED FOR HIV TESTING? YAB HIV 1 22:46:00 Test Item Value Reference Range Interpretation Comments AB HIV 1 2 (test NONREACTIVE NONREACTIVE Done by Jared Dugan code = [id number]) 4th Gen HIV Ag/Ab Combo Screen IS CONSENT FORM SIGNED FOR HIV TESTING? YAG HEPATITIS B [id number] 22:16:00 Test Item Value Reference Range Interpretation Comments AG HEPATITIS B SURFACE (test code NONREACTIVE NONREACTIVE = HBSAG) IS CONSENT FORM SIGNED FOR HIV TESTING? YAB HEPATITIS C [id number] 22:16:00 Test Item Value Reference Range Interpretation Comments AB HEPATITIS C (test code = HCVAB) NONREACTIVE SIGNAL TO CUTOFF (test code = CUTOFF) <0.80 IS CONSENT FORM SIGNED FOR HIV TESTING? YAB [id number] 22:16:00 Test Item Value Reference Range Interpretation Comments AB TREPONEMA (test code = TREPAB) NONREACTIVE NONREACTIVE IS CONSENT FORM SIGNED FOR HIV TESTING? YAB HIV 1 22:16:00 Test Item Value Reference Range Interpretation Comments AB HIV 1 2 (test code = [id number]) NONREACTIVE IS CONSENT FORM SIGNED FOR HIV TESTING? YCBC W/AUTO [id number] 21:47:00 Test Item Value Reference Range Interpretation [...] code = PLTMR) COVID 19 Asymptomatic IH [id number] 21:44:00 Test Item Value Reference Range Interpretation [...] and/o r diagnosis of CO VID-19 under Msajyxt44 4(b)(1) of the Act, 21 U.S .C. 360bbb-3(b)(1), unless theauthorizatio n is terminated or r evoked sooner. [id number] 10:30:00 Test Item Value Reference Range Interpretation Comments GLUBED (test code = GLUBED) 105 mg/dL 65-110 N [id number] 06:29:00 Test Item Value Reference Range Interpretation Comments GLUBED (test code = GLUBED) 126 mg/dL 65-110 H [id number] 01:02:00 Test Item Value Reference Range Interpretation Comments GLUBED (test code = GLUBED) 72 mg/dL 65-110 N [id number] 20:42:00 Test Item Value Reference Range Interpretation Comments GLUBED (test code = GLUBED) 88 mg/dL 65-110 N [id number] 14:39:00 Test Item Value Reference Range Interpretation Comments GLUBED (test code = GLUBED) 149 mg/dL 65-110 H [id number] 11:20:00 Test Item Value Reference Range Interpretation Comments GLUBED (test code = GLUBED) 74 mg/dL 65-110 N [id number] 06:28:00 Test Item Value Reference Range Interpretation Comments GLUBED (test code = GLUBED) 103 mg/dL 65-110 N [id number] 06:28:00 Test Item Value Reference Range Interpretation Comments GLUBED (test code = GLUBED) 76 mg/dL 65-110 N [id number] 22:06:00 Test Item Value Reference Range Interpretation Comments GLUBED (test code = GLUBED) 78 mg/dL 65-110 N [id number] 16:07:00 Test Item Value Reference Range Interpretation Comments GLUBED (test code = GLUBED) 167 mg/dL 65-110 H [id number] 10:42:00 Test Item Value Reference Range Interpretation Comments GLUBED (test code = GLUBED) 130 mg/dL 65-110 H [id number] 04:47:00 Test Item Value Reference Range Interpretation Comments GLUBED (test code = GLUBED) 78 mg/dL 65-110 N [id number] 20:47:00 Test Item Value Reference Range Interpretation Comments GLUBED (test code = GLUBED) 160 mg/dL 65-110 H [id number] 14:52:00 Test Item Value Reference Range Interpretation Comments GLUBED (test code = GLUBED) 235 mg/dL 65-110 H [id number] 10:54:00 Test Item Value Reference Range Interpretation Comments GLUBED (test code = GLUBED) 148 mg/dL 65-110 H [id number] 07:01:00 Test Item Value Reference Range Interpretation Comments GLUBED (test code = GLUBED) 82 mg/dL 65-110 N [id number] 06:05:00 Test Item Value Reference Range Interpretation Comments GLUBED (test code = GLUBED) 61 mg/dL 65-110 L [id number] 20:39:00 Test Item Value Reference Range Interpretation Comments GLUBED (test code = GLUBED) 312 mg/dL 65-110 H GLYCOSYLATED HEMOGLOBIN [id number] 17:32:00 Test Item Value Reference Range Interpretation [...] H (test code = MBG) COMPREHENSIVE METABOLIC [id number] 17:32:00 Test Item Value Reference Range Interpretation [...] considered for these patients. AG HEPATITIS B [id number] 15:30:00 Test Item Value Reference Range Interpretation Comments AG HEPATITIS B SURFACE (test code NONREACTIVE NONREACTIVE = HBSAG) IS CONSENT FORM SIGNED FOR HIV TESTING? YAB HEPATITIS C [id number] 15:30:00 Test Item Value Reference Range Interpretation Comments AB HEPATITIS C (test code = NONREACTIVE NONREACTIVE HCVAB) SIGNAL TO CUTOFF (test code = 0.02 <0.80 N CUTOFF) IS CONSENT FORM SIGNED FOR HIV TESTING? YAB [id number] 15:30:00 Test Item Value Reference Range Interpretation Comments AB TREPONEMA (test code = TREPAB) NONREACTIVE NONREACTIVE IS CONSENT FORM SIGNED FOR HIV TESTING? YAB HIV 1 15:30:00 Test Item Value Reference Range Interpretation Comments AB HIV 1 2 (test NONREACTIVE NONREACTIVE Done by Jared Dugan code = [id number]) 4th Gen HIV Ag/Ab Combo Screen IS CONSENT FORM SIGNED FOR HIV TESTING? [id number] 15:23:00 Test Item Value Reference Range Interpretation Comments GLUBED (test code = GLUBED) 266 mg/dL 65-110 H COVID 19 Asymptomatic IH [id number] 15:16:00 Test Item Value Reference Range Interpretation [...] and/o r diagnosis of CO VID-19 under Hupzbxi03 4(b)(1) of the Act, 21 U.S .C. 360bbb-3(b)(1), unless theauthorizatio n is terminated or r evoked sooner. AG HEPATITIS B [id number] 15:08:00 Test Item Value Reference Range Interpretation Comments AG HEPATITIS B SURFACE (test code NONREACTIVE NONREACTIVE = HBSAG) IS CONSENT FORM SIGNED FOR HIV TESTING? YAB HEPATITIS C [id number] 15:08:00 Test Item Value Reference Range Interpretation Comments AB HEPATITIS C (test code = HCVAB) NONREACTIVE SIGNAL TO CUTOFF (test code = CUTOFF) <0.80 IS CONSENT FORM SIGNED FOR HIV TESTING? YAB [id number] 15:08:00 Test Item Value Reference Range Interpretation Comments AB TREPONEMA (test code = TREPAB) NONREACTIVE NONREACTIVE IS CONSENT FORM SIGNED FOR HIV TESTING? YAB HIV 1 15:08:00 Test Item Value Reference Range Interpretation Comments AB HIV 1 2 (test code = SHE14II) NONREACTIVE IS CONSENT FORM SIGNED FOR HIV TESTING? YUR PROTEIN/CREATININE [id number] 14:46:00 Test Item Value Reference Range Interpretation Comments UR PROTEIN RANDOM (test code = 11.5 mg/dL PROTU) UR CREATININE RANDOM (test 24.6 mg/dL code = CREATU) PROTEIN/CREATININE RATIO (test 460.0 mg/gcrea <200 H code = P/CRATIO) COMPREHENSIVE METABOLIC [id number] 14:38:00 Test Item Value Reference Range Interpretation [...] (HA1C) (test code = GLYHGB) CBC W/AUTO [id number] 14:26:00 Test Item Value Reference Range Interpretation [...] NORMAL NORMAL code = PLTMR) - US [id number] 06:06:00 [facility] : 1995 Sex: F Patient Name: TASHI MOSQUERA Unit No: [id number] EXAMS: CPT CODE: [id number] [place] L[place] 33014 STUDY: - US LTD 09/28/2020 5:04 AM Ordering Physician: Cipriano Alex III, MD Patient Name: TASHI MOSQUERA MR: [id number] : 1995; Age: 25 years y/o Female [...] weeks 3 days as above described. [facility] NAME: TASHI MOSQUERA Radiology Department PHYS: Cipriano Michelle III, MD [address] : 1995 AGE: 25 SEX: F [place], [place] [address] LOC: AnupTONY PHONE #: [phone] EXAM DATE: 09/28/2020 STATUS: REG ER FAX #: [phone] RAD NO: Page 1 Signed Report (CONTINUED) Patient Name: Tee MOSQUERA Unit No: [id number] EXAMS: CPT CODE: [id number] [facility] [address] <C ontinued> ALEXY 17.8 cm. Trace fluid [...] t.HAYDENR.TP6 Orig Print D/T: S: 09/28/2020 (0609) [facility] NAME: [facility] Radiology Department PHYS: Cipriano Michelle III, MD [address] : 1995 AGE: 25 SEX: F [place] [address] LOC: AnupTONY PHONE #: [phone] EXAM DATE: 09/28/2020 STATUS: REG ER FAX #: [phone] RAD NO: Page 2 Signed Report Patient Name: [facility] Unit No: [id number] EXAMS: CPT CODE: [id number] LTD 25573 <Continued> [facility] NAME: [facility] Radiology Department PHYS: Cipriano Michelle III, MD [address] : 1995 AGE: 25 SEX: F [place] [address] LOC: AnupTONY PHONE #: [phone] EXAM DATE: 09/28/2020 STATUS: REG ER FAX #: [phone] RAD NO: Page 3 Signed ReportURINALYSIS [id number] 05:32:00 Test Item Value Reference Range Interpretation [...] = MUCU) RARE NONE SEEN Specimen Comment: OJSE ROSALES SAMPLE: CLEAN [id number] 05:29:00 Test Item Value Reference Range Interpretation Comments GLUBED (test code = GLUBED) 91 mg/dL 65-110 N [id number] 14:54:00 Test Item Value Reference Range Interpretation Comments GLUBED (test code = GLUBED) 95 mg/dL 65-110 N [id number] 14:54:00 Test Item Value Reference Range Interpretation Comments GLUBED (test code = GLUBED) 124 mg/dL 65-110 H [id number] 14:54:00 Test Item Value Reference Range Interpretation Comments GLUBED (test code = GLUBED) 131 mg/dL 65-110 H COMPREHENSIVE METABOLIC [id number] 12:46:00 Test Item Value Reference Range Interpretation [...] 44 units/L 46-116 L code = ALKP) [id number] 12:46:00 Test Item Value Reference Range Interpretation Comments PHOSPHOROUS (test code = PHOS) 1.6 mg/dL 2.5-4.9 L [id number] 12:46:00 Test Item Value Reference Range Interpretation Comments MAGNESIUM (test code = MAG) 1.7 mg/dL 1.8-2.4 L CBC W/AUTO [id number] 12:04:00 Test Item Value Reference Range Interpretation [...] REQUIRED (test NORMAL NORMAL code = PLTMR) [id number] 10:33:00 Test Item Value Reference Range Interpretation Comments GLUBED (test code = GLUBED) 136 mg/dL 65-110 H [id number] 10:33:00 Test Item Value Reference Range Interpretation Comments GLUBED (test code = GLUBED) 180 mg/dL 65-110 H COMPREHENSIVE METABOLIC [id number] 07:48:00 Test Item Value Reference Range Interpretation [...] 42 units/L 46-116 L code = ALKP) [id number] 07:48:00 Test Item Value Reference Range Interpretation Comments PHOSPHOROUS (test code = PHOS) 1.6 mg/dL 2.5-4.9 L [id number] 07:48:00 Test Item Value Reference Range Interpretation Comments MAGNESIUM (test code = MAG) 1.6 mg/dL 1.8-2.4 L [id number] 07:06:00 Test Item Value Reference Range Interpretation Comments GLUBED (test code = GLUBED) 184 mg/dL 65-110 H [id number] 06:27:00 Test Item Value Reference Range Interpretation Comments GLUBED (test code = GLUBED) 187 mg/dL 65-110 H COMPREHENSIVE METABOLIC [id number] 05:46:00 Test Item Value Reference Range Interpretation [...] 42 units/L 46-116 L code = ALKP) [id number] 05:46:00 Test Item Value Reference Range Interpretation Comments MAGNESIUM (test code = MAG) 1.6 mg/dL 1.8-2.4 L CBC W/AUTO [id number] 05:34:00 Test Item Value Reference Range Interpretation [...] REQUIRED (test NORMAL NORMAL code = PLTMR) [id number] 05:22:00 Test Item Value Reference Range Interpretation Comments GLUBED (test code = GLUBED) 208 mg/dL 65-110 H [id number] 04:21:00 Test Item Value Reference Range Interpretation Comments GLUBED (test code = GLUBED) 210 mg/dL 65-110 H [id number] 03:22:00 Test Item Value Reference Range Interpretation Comments GLUBED (test code = GLUBED) 229 mg/dL 65-110 H [id number] 02:22:00 Test Item Value Reference Range Interpretation Comments GLUBED (test code = GLUBED) 247 mg/dL 65-110 H [id number] 01:34:00 Test Item Value Reference Range Interpretation Comments GLUBED (test code = GLUBED) 261 mg/dL 65-110 H [id number] 00:21:00 Test Item Value Reference Range Interpretation Comments GLUBED (test code = GLUBED) 276 mg/dL 65-110 H [id number] 23:23:00 Test Item Value Reference Range Interpretation Comments GLUBED (test code = GLUBED) 282 mg/dL 65-110 H [id number] 22:29:00 Test Item Value Reference Range Interpretation Comments GLUBED (test code = GLUBED) 193 mg/dL 65-110 H [id number] 22:29:00 Test Item Value Reference Range Interpretation Comments GLUBED (test code = GLUBED) 172 mg/dL 65-110 H [id number] 22:29:00 Test Item Value Reference Range Interpretation Comments GLUBED (test code = GLUBED) 123 mg/dL 65-110 H [id number] 22:29:00 Test Item Value Reference Range Interpretation Comments GLUBED (test code = GLUBED) 158 mg/dL 65-110 H [id number] 22:29:00 Test Item Value Reference Range Interpretation Comments GLUBED (test code = GLUBED) 192 mg/dL 65-110 H COMPREHENSIVE METABOLIC [id number] 21:00:00 Test Item Value Reference Range Interpretation [...] units/L 46-116 TOTAL (test code = ALKP) [id number] 21:00:00 Test Item Value Reference Range Interpretation Comments PHOSPHOROUS (test code = PHOS) 1.8 mg/dL 2.5-4.9 L [id number] 21:00:00 Test Item Value Reference Range Interpretation Comments MAGNESIUM (test code = MAG) 1.4 mg/dL 1.8-2.4 L OSMOLALITY [id number] 20:51:00 Test Item Value Reference Range Interpretation Comments OSMOLALITY SERUM (test code = 296 mOsm/kg 275-295 H OSMO) OSMOLALITY [id number] 20:51:00 Test Item Value Reference Range Interpretation [...] be considered for these patients. GLYCOSYLATED HEMOGLOBIN [id number] 20:49:00 Test Item Value Reference Range Interpretation [...] H (test code = MBG) CBC W/AUTO [id number] 19:25:00 Test Item Value Reference Range Interpretation [...] NORMAL NORMAL code = PLTMR) VBG IONIZED [id number] 19:21:00 Test Item Value Reference Range Interpretation Comments VBG IONIZED CALCIUM (test code = 1.06 mmol/L 0.9-1.29 N ICAL/VBG) COMPREHENSIVE METABOLIC [id number] 19:09:00 Test Item Value Reference Range Interpretation [...] 46-116 N TOTAL (test code = ALKP) [id number] 19:09:00 Test Item Value Reference Range Interpretation Comments PHOSPHOROUS (test code = PHOS) 1.9 mg/dL 2.5-4.9 L [id number] 19:09:00 Test Item Value Reference Range Interpretation Comments MAGNESIUM (test code = MAG) 1.5 mg/dL 1.8-2.4 L [id number] 17:36:00 Test Item Value Reference Range Interpretation Comments GLUBED (test code = GLUBED) 212 mg/dL 65-110 H UR PROTEIN/CREATININE [id number] 17:25:00 Test Item Value Reference Range Interpretation Comments UR PROTEIN RANDOM 56.6 mg/dL (test code = PROTU) UR CREATININE 11.1 mg/dL RANDOM (test code = CREATU) PROTEIN/CREATININE 5090.0 <200 H RESULTS V ERIFIED BY RATIO (test code = mg/gcrea REPEAT AN ALYSISRESULTS P/CRATIO) CALLED TO SASHA READ BACK & CONFIRME D? ERICK FNithinLAB.TTT 09/26 1280 COMPREHENSIVE METABOLIC [id number] 17:24:00 Test Item Value Reference Range Interpretation Comments SODIUM (test code = 136 mEq/L 135-145 N NA) POTASSIUM (test code 4.7 mEq/L 3.5-5.0 N = K) CHLORIDE (test code 103 mEq/L 100-115 N = CL) CARBON DIOXIDE (test 11 mEq/L 22-31 LL RESULTS VERIFIED BY code = CO2) REPEAT ANALYSIS RESULTS CALLED TO SASHA READ BACK & CONFIRME D? YES.BY F.LAB.TT T 09/26/20 2753. ANION GAP (test code 26.90 10-20 H [...] 46-116 N TOTAL (test code = ALKP) [id number] 17:24:00 Test Item Value Reference Range Interpretation Comments PHOSPHOROUS (test code = PHOS) 2.9 mg/dL 2.5-4.9 N [id number] 17:24:00 Test Item Value Reference Range Interpretation Comments AMYLASE (test code = CHELSIE) 77 units/L 30-110 N [id number] 17:24:00 Test Item Value Reference Range Interpretation Comments MAGNESIUM (test code = MAG) 1.7 mg/dL 1.8-2.4 L C REACTIVE [id number] 17:08:00 Test Item Value Reference Range Interpretation Comments C REACTIVE PROTEIN (test code = 0.2 mg/dL 0.6-1.2 L CRP) URINALYSIS [id number] 17:00:00 Test Item Value Reference Range Interpretation [...] = MUCU) RARE NONE SEEN CBC W/AUTO [id number] 16:53:00 Test Item Value Reference Range Interpretation [...] NORMAL NORMAL code = PLTMR) COMPREHENSIVE METABOLIC [id number] 13:57:00 Test Item Value Reference Range Interpretation [...] 48 units/L 46-116 N code = ALKP) [id number] 13:57:00 Test Item Value Reference Range Interpretation Comments LIPASE (test code = LIP) 85 units/L 73-393 N ACETONE [id number] 13:57:00 Test Item Value Reference Range Interpretation Comments ACETONE QUAL (test code = ACETNQL) NEGATIVE NEGATIVE BETA [id number] 13:57:00 Test Item Value Reference Range Interpretation Comments BETA HYDROBUTYRATE (test 2.2 mg/dL () Ref erence Range:All code = BETHYD) Ages (fasting ): 0.2 - 2.8Performed At: [facility] [address] [place] [address] [id number] danial Blanton MD Ph:[phone] [id number] 13:24:00 Test Item Value Reference Range Interpretation Comments GLUBED (test code = GLUBED) 169 mg/dL 65-110 H [id number] 11:17:00 Test Item Value Reference Range Interpretation Comments GLUBED (test code = GLUBED) 91 mg/dL 65-110 N [id number] 07:59:00 Test Item Value Reference Range Interpretation Comments GLUBED (test code = GLUBED) 162 mg/dL 65-110 H - US PREG UT [id number] 04:23:00 Patient Name: TASHI MOSQUERA Unit No: [id number] EXAMS: CPT CODE: [id number] US PREG UT TRANSVAGINAL 17777 STUDY: - US LTD, - US PREG UT TRANSVAGINAL 08/05/2020 12:59 AM Ordering Physician: Shira Arredondo MD Patient Name: TASHI MOSQUERA MR: [id number] : 1995; Age: 25 years y/o Female [...] Not performed Small free pelvic fluid. [facility] NAME: TASHI MOSQUERA Radiology Department PHYS: Natalie Foley MD [address] : 1995 AGE: 25 SEX: F [place], [place] [address] LOC: Anup2624 Claude PHONE #: [phone] EXAM DATE: 08/05/2020 STATUS: ADM IN FAX #: [phone] RAD NO: Page 1 Signed Report (CONTINUED) Patient Name: TASHI MOSQUERA Unit No: [id number] EXAMS: CPT CODE: [id number] US PREG UT TRANSVAGINAL [address]8862 <Continued> IMPRESSION: Single liveintrauterine at 19 weeks [...] Garcia MD Technologist: Charlotte Kidd RDMS Probe: [id number] Trnscrbd D/ (0423) t.YOSELYN.TP6 Orig Print D/T: S: 08/05/2020 (0426) [facility] NAME: TASHI MOSQUERA Radiology Department PHYS: Natalie Foley MD [address] : 1995 AGE: 25 SEX: [place], [place] [address] LOC: F.2624 A PHONE #: [phone] EXAM DATE: 08/05/2020 STATUS: ADM IN FAX #: [phone] RAD NO: Page 2 Signed Report Patient Name: TASHI MOSQUERA Unit No: [id number] EXAMS: CPT CODE: [id number] US PREG UT TRANSVAGINAL 58837 <Continued> [facility] PHYS: Natalie Foley MD [address] : 1995 AGE: 25 SEX: [place], [place] [address] LOC: F.2624 A PHONE #: [phone] EXAM DATE: 08/05/2020 STATUS: ADM IN FAX #: [phone] RAD NO: Page 3 Signed Report- US [id number] 04:23:00 Patient Name: TASHI MOSQUERA Unit No: [id number] EXAMS: CPT CODE: [id number] US LTD 97774 STUDY: - US LTD, - US PREG UT TRANSVAGINAL 08/05/2020 12:59 AM Ordering Physician: Shira Arredondo MD Patient Name: TASHI MOSQUERA MR: [id number] : 1995; Age: 25 years y/o Female [...] Not performed Small free pelvic fluid. [facility] NAME: TASHI MOSQUERA Radiology Department PHYS: Shira Truong MD [address] : 1995 AGE: 25 SEX: [place], [place] [address] LOC: Anup2624 Claude PHONE #: [phone] EXAM DATE: 08/05/2020 STATUS: ADM IN FAX #: [phone] RAD NO: Page 1 Signed Report (CONTINUED) Patient Name: TASHI MOSQUERA Unit No: [id number] EXAMS: CPT CODE: [id number] LTD 69054 <Continued> IMPRESSION: Single liveintrauterine at 19 weeks [...] t.[email or web address] Orig Print D/T: S: 08/05/2020 (0426) [facility] NAME: TASHI MOSQUERA Radiology Department PHYS: Shira Truong MD [address] : 1995 AGE: 25 [facility] [place] [address] LOC: Anup2624 A PHONE #: [phone] EXAM DATE: 08/05/2020 STATUS: ADM IN FAX #: [phone] RAD NO: Page 2 Signed Report Patient Name: TASHI MOSQUERA Unit No: [id number] EXAMS: CPT CODE: [id number] US LTD 64142 <Continued> [facility] NAME: TASHI MOSQUERA Radiology Department PHYS: Shira Truong MD [address] : 1995 AGE: 25 SEX: [place], [place] [address] LOC: F.2624 A PHONE #: [phone] EXAM DATE: 1 STATUS: ADM IN FAX #: [phone] RAD NO: Page 3 Signed ReportARTERIAL BLOOD [id number] 03:03:00 Test Item Value Reference Range Interpretation [...] FIO2 (test code = FIO2A) 21.0 % PaO2/[id number] 03:03:00 Test Item Value Reference Range Interpretation Comments PaO2/FiO2 (test code = [id number]) mm/Hg [id number] 03:03:00 Test Item Value Reference Range Interpretation Comments GLUCOSE (test code = GLU/ABG) 201 MG/DL 60-110 H ARTERIAL BLOOD [id number] 03:03:00 Test Item Value Reference Range Interpretation [...] FIO2 (test code = FIO2A) 21.0 % PaO2/[id number] 03:03:00 Test Item Value Reference Range Interpretation Comments PaO2/FiO2 (test code = QIK7TNR7) 471.40 mm/Hg [id number] 03:03:00 Test Item Value Reference Range Interpretation Comments GLUCOSE (test code = GLU/ABG) 201 MG/DL 60-110 H COMPREHENSIVE METABOLIC [id number] 02:23:00 Test Item Value Reference Range Interpretation [...] 48 units/L 46-116 N code = ALKP) [id number] 02:23:00 Test Item Value Reference Range Interpretation Comments LIPASE (test code = LIP) 85 units/L 73-393 N ACETONE [id number] 02:23:00 Test Item Value Reference Range Interpretation Comments ACETONE QUAL (test code = ACETNQL) NEGATIVE NEGATIVE BETA [id number] 02:23:00 Test Item Value Reference Range Interpretation Comments BETA HYDROBUTYRATE (test code = BETHYD) COOXIMETRY [id number] 02:14:00 Test Item Value Reference Range Interpretation Comments HEMOGLOBIN (test code = HGB/ABG) 13.0 g/dL 12-16 N HEMATOCRIT (test code = HCT/ABG) 38 % 37-47 N METHEMOGLOBIN (test code = METHGB) 0.6 % 0.0-1.5 N VENOUS BLOOD [id number] 02:14:00 Test Item Value Reference Range Interpretation [...] code = 21.0 % FIO2V) CBC W/AUTO [id number] 02:00:00 Test Item Value Reference Range Interpretation [...] = PLTMR) UA RFLX MICR CULT IF [id number] 01:47:00 Test Item Value Reference Range Interpretation [...] Suprapubic PainSpecimen Description: CLEAN CATCH COMPREHENSIVE METABOLIC [id number] 01:47:00 Test Item Value Reference Range Interpretation [...] 48 units/L 46-116 N code = ALKP) [id number] 01:47:00 Test Item Value Reference Range Interpretation Comments LIPASE (test code = LIP) 85 units/L 73-393 N ACETONE [id number] 01:47:00 Test Item Value Reference Range Interpretation Comments ACETONE QUAL (test code = ACETNQL) NEGATIVE BETA [id number] 01:47:00 Test Item Value Reference Range Interpretation Comments BETA HYDROBUTYRATE (test code = BETHYD)
[2021-02-28] MEDS ORDERED: NA CHLORIDE 0.9% 1,000 ML ONE ×2 (13:51→18:16)
[2021-02-28] MEDS ORDERED: ONDANSETRON 4 MG/2 ML VIAL ONE (13:51)
[2021-02-28 14:02] LABS: Absolute Lymphocytes (CBC) 3.4 K/uL (0.7-4.9); Basophils % 0.3 % (0-1.3); Hematocrit 50.7 % (36.0-45.0); Lymphocytes % 16.4 % (15.3-44.8); MPV 8.7 fL (7.6-11.3); RBC Red Blood Cell Count 5.56 M/uL (3.86-4.86)
[2021-02-28 14:14] LABS: Urine Specific Gravity/Preg >1.030 (1.005-1.030)
[2021-02-28] MEDS ORDERED: LORazepam 2 MG/ML VIAL ONE ×2 (14:29→15:48)
[2021-02-28 14:37] LABS: ALT/SGPT 16 U/L (12-78); Albumin 4.2 g/dL (3.4-5.0); Alkaline Phosphatase 124 U/L (45-117); BUN Blood Urea Nitrogen 19 mg/dL (7-18); Bilirubin Direct < 0.1 mg/dL (0-0.2); Bilirubin Total 0.3 mg/dL (0.2-1.0); Glucose Level 455 mg/dL (74-106); Lipase 156 U/L (73-393); Protein, Total 9.2 g/dL (6.4-8.2); Sodium Level 137 mmol/L (136-145)
[2021-02-28 14:48] LABS: AST/SGOT 10 U/L (15-37); Potassium 4.1 mmol/L (3.5-5.1)
[2021-02-28 14:53] LABS: Bicarbonate 5 mmol/L (21-32)
[2021-02-28] MEDS ORDERED: GLUCAGON 1 MG/VIAL IM PRN (15:08)
[2021-02-28] MEDS ORDERED: D50W 25 GM/50 ML VIAL IV PRN (15:12)
[2021-02-28] MEDS ORDERED: INSULIN -REGULAR HUMAN 100 UNIT in NA CHLORIDE 0.9% 100 ML IV SCH (15:15)
[2021-02-28 15:16] LABS: Blood Morphology Comment NOT SEEN (NOT SEEN); Platelet Estimate INCR
[2021-02-28 15:29] LABS: Arterial Blood Carboxyhemoglob 0.7 % (0-1.5); Blood Gas Oxyhemoglobin 94.9 % (94-97); Blood O2 Saturation 96.6 % (92-98.5)
[2021-02-28] MEDS ORDERED: NA CHLORIDE 0.9% 2,000 ML ONE (15:32)
[2021-02-28] MEDS ORDERED: SODIUM BICARB 50 MEQ/50ML VIAL ONE ×3 (15:49→18:33)
[2021-02-28] MEDS ORDERED: NA BICARB IV SCH ×7 (16:00→19:00)
[2021-02-28] MEDS ORDERED: NA CHLORIDE IV SCH ×4 (16:00)
[2021-02-28] MEDS ORDERED: NA CHLORIDE 0.9% IV SCH ×2 (16:00)
[2021-02-28] MEDS ORDERED: SODIUM ACETATE IV SCH ×2 (16:00)
--- NOTE | 2021-02-28 16:56 | ER ---
Nurse's Notes [facility] Name: Rosalie Parekh Age: 25 yrs Sex: Female : 1995 Arrival Date: 02/28/2021 Time: 12:40 Bed 23 Private MD: Diagnosis: Type 1 diabetes mellitus with ketoacidosis without coma Presentation: 02/28 13:08 Chief complaint: Patient states: DKA last week, has been taking her medications, em reports N/V, not able to tolerate any fluids or liquids. Coronavirus screen: Client denies travel out of the [place] in the last 14 days. Ebola Screen: Patient negative for fever greater than or equal to 101.5 degrees Fahrenheit, and additional compatible Ebola Virus Disease symptoms Patient denies exposure to infectious person. Patient denies travel to an Ebola-affected area in the 21 days before illness onset. No symptoms or risks identified at this time. Initial Sepsis Screen: Does the patient meet any 2 criteria? RR > 20 per min. HR > 90 bpm. Yes Does the patient have a suspected source of infection? No. Patient's initial sepsis screen is negative. Risk Assessment: Do you want to hurt yourself or someone else? Patient reports no desire to harm self or others. Onset of symptoms was February 28, 2021. 13:08 Method Of Arrival: Wheelchair em 13:08 Acuity: TANYA 2 em HAZARDOUS MATERIALS ANALYST: 13:11 [facility] 01/2021 em Historical: - Allergies: 13:11 No Known Allergies; em - PMHx: 13:11 Anxiety; Diabetes - NIDDM; em - PSHx: 13:11 None; em - Immunization history:: Adult Immunizations up to date. - Social history:: Smoking status: Patient reports the use of cigarette tobacco products, smokes one-half pack cigarettes per day. Screenin:20 Abuse screen: Denies threats or abuse. Denies injuries from another. Nutritional hb screening: No deficits noted. Tuberculosis screening: No symptoms or risk factors identified. Fall Risk None identified. Assessment: 13:45 General: Appears distressed, Behavior is anxious, restless. Pain: Pain currently is 9 hb out of 10 on a pain scale. Neuro: Level of Consciousness is awake, alert, obeys commands, Oriented to person, place, time, situation. Cardiovascular: Patient's skin is warm and dry. Rhythm is sinus tachycardia. Respiratory: Respiratory effort is Respiratory pattern is tachypnea. GI: Reports lower abdominal pain, upper abdominal pain, nausea, vomiting. : No signs and/or symptoms were reported regarding the genitourinary system. EENT: No signs and/or symptoms were reported regarding the EENT system. Derm: Skin is pink, warm \T\ dry. Musculoskeletal: No signs and/or symptoms reported regarding the musculoskeletal system. 14:18 Reassessment: Pt hyperventilating, HR 120s, SPO2 96%. ANAMIKA Worthington notified, Ativan hb administered as ordered. Awaiting lab results at this time. 15:01 Reassessment: ANAMIKA Worthington at bedside for CVC placement. hb 15:53 Reassessment: Pt confused, restless, tachypnic, HR 140s, NS bolus continues. ANAMIKA Worthington hb aware. 16:32 Reassessment: BGL 275, ANAMIKA Worthington notified, insulin drip turned down to 4 units/hr. Pt hb remains confused, lethargic, tachypnic, Hr 140s. Awaiting hospitalist at this time. Vital Signs: 13:08 BP 127 / 94; Pulse 129; Resp 32; Temp 98.1(O); Pulse Ox 98% on R/A; Weight 74.84 kg; em Height 5 ft. 2 in. (157.48 cm); Pain 10/10; 14:15 BP 140 / 92; Pulse 125; Resp 30; Pulse Ox 96% on R/A; hb 15:30 BP 137 / 102; Pulse 131; Resp 39; Pulse Ox 100% on R/A; hb 16:13 BP 98 / 57; Pulse 136; Resp 34; Pulse Ox 100% on R/A; hb 16:45 BP 116 / 68; Pulse 145; Resp 39; Pulse Ox 95% on R/A; hb 13:08 Body Mass Index 30.18 (74.84 kg, 157.48 cm) em ED Course: 12:40 Patient arrived in ED. rg4 13:11 Triage completed. em 13:11 Arm band placed on. em 13:19 Ander Gaffney PA is PHCP. jr8 13:19 Mikie Gordon MD is Attending Physician. jr8 13:30 Maribel Ni RN is Primary Nurse. hb 13:46 Inserted saline lock: 20 gauge in right antecubital area, using aseptic technique. hb Blood collected. 14:20 Patient has correct armband on for positive identification. Bed in low position. Call hb light in reach. 15:26 Assisted provider with central line placement. Set up central line tray. Triple lumen sv line placed in right femoral. Line placed by Ander WILLSON Placement verified by blood return, Dressed with Tegaderm, Patient tolerated well. Before procedure, did Practitioner(s) obtain informed consent? No. Patient \T\ family education about procedure, CLABSI prevention and S/S of infection? Yes. Time-out/Briefing performed prior to start of procedure? Yes. Was handwashing/sanitizing done immediately prior to procedure? Yes. Was patient positioned to in a way to prevent air embolism? Yes. Was procedure site sterilized? Yes, with chlorhexidine. Was the site allowed to dry? Yes. Was local anesthetic and/or sedation utilized? Yes. During the procedure, did the Practitioner(s) maintain a sterile field? Yes. Were unused ports clamped during insertion? Yes. Was a 2nd qualified MD obtained after 3 unsuccessful insertion attempts? Yes. Was blood aspirated from each lumen? Yes. After the procedure, did the Practitioner(s) clean the site and apply a sterile dressing? Yes. 15:27 Hepatic Function Sent. sv 15:27 CBC with Diff Sent. sv 15:27 Basic Metabolic Panel Sent. sv 16:53 Ravinder Narayanan MD is Hospitalizing Provider. jr8 16:54 Cleaned of incontinence. Linen changed. hb 17:11 Assisted with bedpan. hb 17:47 Patient admitted, IV remains in place. hb Administered Medications: 13:46 Drug: NS 0.9% 1000 ml Route: IV; Rate: 1000 ml; Site: right antecubital; hb 15:00 Follow up: Response: No adverse reaction; IV Status: Completed infusion; IV Intake: hb 1000ml 13:46 Drug: Zofran (Ondansetron) 4 mg Route: IVP; Site: right antecubital; hb 14:30 Follow up: Response: No adverse reaction hb 14:16 Drug: Ativan (LORazepam) 0.5 mg Route: IVP; Site: right antecubital; hb 14:45 Follow up: Response: No adverse reaction hb 15:27 Drug: NS 0.9% 1000 ml Route: IV; Rate: 1000 ml; Site: right femoral; sv 15:53 Follow up: Response: No adverse reaction; IV Status: Completed infusion; IV Intake: hb 1000ml 15:27 Drug: NS 0.9% 1000 ml Route: IV; Rate: 1000 ml; Site: right femoral; sv 15:28 Drug: Insulin Drip - (Insulin Regular Human 100 units, NS 0.9% 100 ml) {Co-Signature: vinny cates (Suma Tovar).} Route: IV; Rate: calculated rate; Site: Other; 15:28 Drug: NS 0.9% 1000 ml Route: IV; Rate: 1000 ml; Site: Other; hb 15:31 Drug: Ativan (LORazepam) 0.5 mg Route: IVP; Site: Other; hb 15:33 Drug: Sodium Bicarbonate 1 amp Route: IVP; Site: Other; hb Point of Care Testing: Blood Glucose: 17:32 Blood Glucose: 212 mg/dL; hb Ranges: Intake: 15:00 IV: 1000ml; Total: 1000ml. hb 15:53 IV: 1000ml; Total: 2000ml. hb Output: 17:11 Urine: 350ml (Voided); Total: 350ml. hb Outcome: 16:55 Decision to Hospitalize by Provider. robert 17:34 Admitted to ICU accompanied by nurse, via stretcher, room ER9, Report called to Alyssia casillas RN 17:34 Condition: stable 17:34 Instructed on the need for admit, Demonstrated understanding of instructions. 17:47 Patient left the ED. hb Signatures: Stacey Torres RN RN sv Munoz, Edgar, RN RN em Roszak, Josh, PA PA jr8 Baxter, Heather, RN RN hb Garcia, Rubi rg4 Suma Tovar kg Corrections: (The following items were deleted from the chart) 15:40 15:35 Reassessment: hb hb 16:22 15:53 Reassessment: Pt confused, tac hypnic, HR 140s, NS bolus continues. ANAMIKA casillas aware. hb
--- NOTE | 2021-02-28 16:56 | EDPHYS ---
Physician Documentation [facility] Name: Rosalie Parekh Age: 25 yrs Sex: Female : 1995 Arrival Date: 02/28/2021 Time: 12:40 Bed 23 Private MD: ED Physician Mikie Gordon HPI: 02/28 13:48 This 25 yrs old Female presents to ER via Wheelchair with complaints of jr8 Vomiting, Dizziness, Flank Pain, Diabetic. 13:48 Onset: The symptoms/episode began/occurred acutely, today. The symptoms are aggravated jr8 by nothing. The symptoms are alleviated by nothing. Associated signs and symptoms: Pertinent positives: shortness of breath. Severity of symptoms: At their worst the symptoms were moderate in the emergency department the symptoms are unchanged. The patient has experienced similar episodes in the past, a few times. The patient has not recently seen a physician. CASINO RUNNER: 13:11 LMP 01/2021 em Historical: - Allergies: 13:11 No Known Allergies; em - PMHx: 13:11 Anxiety; Diabetes - NIDDM; em - PSHx: 13:11 None; em - Immunization history:: Adult Immunizations up to date. - Social history:: Smoking status: Patient reports the use of cigarette tobacco products, smokes one-half pack cigarettes per day. ROS: 13:48 Eyes: Negative for injury, pain, redness, and discharge, ENT: Negative for injury, jr8 pain, and discharge, Neck: Negative for injury, pain, and swelling, Cardiovascular: Negative for palpitations, and edema. Postive for latera chest wall pain on right side Back: Negative for injury and pain, MS/Extremity: Negative for injury and deformity, Skin: Negative for injury, rash, and discoloration, Neuro: Negative for headache, weakness, numbness, tingling, and seizure. 13:48 Respiratory: Positive for shortness of breath. 13:48 Abdomen/GI: Positive for nausea, abdominal cramps. Exam: 13:53 Eyes: Pupils equal round and reactive to light, extra-ocular motions intact. Lids and jr8 lashes normal. Conjunctiva and sclera are non-icteric and not injected. Cornea within normal limits. Periorbital areas with no swelling, redness, or edema. ENT: Nares patent. No nasal discharge, no septal abnormalities noted. Tympanic membranes are normal and external auditory canals are clear. Oropharynx with no redness, swelling, or masses, exudates, or evidence of obstruction, uvula midline. Mucous membranes dry. Neck: Trachea midline, no thyromegaly or masses palpated, and no cervical lymphadenopathy. Supple, full range of motion without nuchal rigidity, or vertebral point tenderness. No Meningismus. Abdomen/GI: Soft, non-tender, with normal bowel sounds. No distension or tympany. No guarding or rebound. No evidence of tenderness throughout. Back: No spinal tenderness. No costovertebral tenderness. Full range of motion. Skin: Cool, dry with normal turgor. Normal color with no rashes, no lesions, and no evidence of cellulitis. MS/ Extremity: Pulses equal, no cyanosis. Neurovascular intact. Full, normal range of motion. Neuro: Awake and alert, GCS 15, oriented to person, place, time, and situation. Cranial nerves II-XII grossly intact. Motor strength 5/5 in all extremities. Sensory grossly intact. Cerebellar exam normal. Normal gait. 13:53 Constitutional: The patient appears alert, awake, obviously ill, uncomfortable. 13:53 Cardiovascular: Rate: tachycardic, Rhythm: regular, Pulses: Pulses are 2+ in right radial artery and left radial artery. Heart sounds: normal, Edema: is not appreciated. 13:53 Respiratory: the patient does not display signs of respiratory distress, Respirations: tachypnea, that is mild, Breath sounds: are clear throughout, no bronchial sounds, no decreased breath sounds, no rales, rhonchi, no stridor, no wheezing. Vital Signs: 13:08 BP 127 / 94; Pulse 129; Resp 32; Temp 98.1(O); Pulse Ox 98% on R/A; Weight 74.84 kg; em Height 5 ft. 2 in. (157.48 cm); Pain 10/10; 14:15 BP 140 / 92; Pulse 125; Resp 30; Pulse Ox 96% on R/A; hb 15:30 BP 137 / 102; Pulse 131; Resp 39; Pulse Ox 100% on R/A; hb 16:13 BP 98 / 57; Pulse 136; Resp 34; Pulse Ox 100% on R/A; hb 16:45 BP 116 / 68; Pulse 145; Resp 39; Pulse Ox 95% on R/A; hb 13:08 Body Mass Index 30.18 (74.84 kg, 157.48 cm) em Procedures: 03/01 00:48 Central Line: the site was prepped with Betadine, in sterile fashion, a triple lumen jr8 catheter was inserted, in the right femoral vein, in 1 attempts. placement was verified, by blood return, the site was dressed with 4X4s, Tegaderm, foam tape, using sterile technique, the patient tolerated the procedure, well. MDM: 02/28 13:20 Patient medically screened. [facility] 16:51 Data reviewed: vital signs, nurses notes, lab test result(s). Data interpreted: Pulse jr8 oximetry: on room air is 100 %. Interpretation: normal. Counseling: I had a detailed discussion with the patient and/or guardian regarding: the historical points, exam findings, and any diagnostic results supporting the discharge/admit diagnosis, lab results, the need for further work-up and treatment in the hospital. 02/28 13:25 Order name: Basic Metabolic Panel [facility] 02/28 13:25 Order name: CBC with Diff [facility] 02/28 13:25 Order name: Hepatic Function [facility] 02/28 13:25 Order name: Lipase; Complete Time: 14:59 [facility] 02/28 13:25 Order name: Ketone, Serum; Complete Time: 14:59 [facility] 02/28 13:26 Order name: Basic Metabolic Panel; Complete Time: 14:59 EDN[facility] 02/28 13:26 Order name: CBC with Automated Diff; Complete Time: 15:26 ED[facility] 02/28 13:26 Order name: Liver (Hepatic) Function; Complete Time: 14:59 EDN[facility] 02/28 13:55 Order name: Urine --Ancillary (enter results); Complete Time: 14:59 bd 02/28 15:00 Order name: ABG; Complete Time: 16:10 8 02/28 15:15 Order name: Manual Differential; Complete Time: 15:26 EDMS 02/28 16:44 Order name: Glucose, Ancillary Testing; Complete Time: 16:51 EDN[facility] 02/28 17:04 Order name: SARS-COV-2 RT PCR; Complete Time: 21:04 [facility] 02/28 13:25 Order name: IV Saline Lock; Complete Time: 13:46 8 02/28 13:25 Order name: Labs collected and sent; Complete Time: 13:48 [facility] 02/28 13:25 Order name: Urine Dipstick-Ancillary (obtain specimen); Complete Time: 13:46 [facility] 02/28 13:25 Order name: Urine Test (obtain specimen); Complete Time: 13:46 02/28 13:25 Order name: Glucose Level; Complete Time: 13:48 [facility] 02/28 17:46 Order name: Glucose, Ancillary Testing; Complete Time: 21:04 EDMS Administered Medications: 13:46 Drug: NS 0.9% 1000 ml Route: IV; Rate: 1000 ml; Site: right antecubital; hb 15:00 Follow up: Response: No adverse reaction; IV Status: Completed infusion; IV Intake: hb 1000ml 13:46 Drug: Zofran (Ondansetron) 4 mg Route: IVP; Site: right antecubital; hb 14:30 Follow up: Response: No adverse reaction hb 14:16 Drug: Ativan (LORazepam) 0.5 mg Route: IVP; Site: right antecubital; hb 14:45 Follow up: Response: No adverse reaction hb 15:27 Drug: NS 0.9% 1000 ml Route: IV; Rate: 1000 ml; Site: right femoral; sv 15:53 Follow up: Response: No adverse reaction; IV Status: Completed infusion; IV Intake: hb 1000ml 15:27 Drug: NS 0.9% 1000 ml Route: IV; Rate: 1000 ml; Site: right femoral; sv 15:28 Drug: Insulin Drip - (Insulin Regular Human 100 units, NS 0.9% 100 ml) {Co-Signature: hb kg (Suma Tovar).} Route: IV; Rate: calculated rate; Site: Other; 15:28 Drug: NS 0.9% 1000 ml Route: IV; Rate: 1000 ml; Site: Other; hb 15:31 Drug: Ativan (LORazepam) 0.5 mg Route: IVP; Site: Other; hb 15:33 Drug: Sodium Bicarbonate 1 amp Route: IVP; Site: Other; hb Point of Care Testing: Blood Glucose: 17:32 Blood Glucose: 212 mg/dL; hb Ranges: Critical Glucose Levels:Adult <50 mg/dl or >400 mg/dl <40 mg/dl or >180 mg/dl Disposition: 03/01 06:20 Co-signature as Attending Physician, Mikie Gordon MD I agree with the assessment and kdr plan of care. Disposition: 02/28/21 16:55 Hospitalization ordered by Ravinder Narayanan for Inpatient Admission. Preliminary diagnosis is Type 1 diabetes mellitus with ketoacidosis without coma. - Bed requested for Intensive Care Unit. - Status is Inpatient Admission. hb - Condition is Serious. - Problem is new. - Symptoms have improved. Critical care time excluding procedures: 00:48 Critical care time: Bedside Care: 20 minutes, Consultation: 10 minutes, Family jr8 Intervention: 5 minutes. Total time: 35 minutes Signatures: Dispatcher [employer] EDNJ Stacey Torres, RN RN Mikie Adams MD MD [facility] Teddy So RN Ander Brandon PA PA jrMaribel Lara RN RN Suma Tovar kg Corrections: (The following items were deleted from the chart) 02/28 16:05 15:51 CORONAVIRUS+MR.LAB.BRZ ordered. EDNJ EDNJ 17:47 16:55 Hospitalization Ordered by Ravinder Narayanan MD for Inpatient Admission. Preliminary hb diagnosis is Type 1 diabetes mellitus with ketoacidosis without coma. Bed requested for Intensive Care Unit. Status is Inpatient Admission. Condition is Serious. Problem is new. Symptoms have improved. jr8
[2021-02-28] MEDS ORDERED: WATER FOR INJ,STERILE 1,000 ML with NA BICARB 8.4% 150 MEQ IV SCH ×2 (17:00)
[2021-02-28] MEDS ORDERED: ACETAMINOPHEN 650MG/RECT SUPP PR PRN ×2 (17:30→17:31)
[2021-02-28] MEDS ORDERED: ONDANSETRON 4 MG/2 ML VIAL IV PRN (17:31)
[2021-02-28] MEDS ORDERED: ALBUTEROL 2.5 MG/3 ML NEB SOL NEB PRN (17:31)
--- NOTE | 2021-02-28 17:35 | P.HP ---
Certification for Inpatient With expected LOS: >2 Midnights Patient will require the following post-hospital care: None Practitioner: I am a practitioner with admitting privileges, knowledge of patient current condition, hospital course, and medical plan of care. Services: Services provided to patient in accordance with Admission requirements found in Title 42 Section 412.3 of the Code of Federal Regulations Patient History Date of Service: 02/28/21 Reason for admission: Nausea and Vomitting History of Present Illness: Patient is a 25-year-old female with a past medical history significant for DM1 and Anxiety disorder who presents with complaint of nausea and vomiting Onset this morning. Patient was in the hospital 5 days ago with similar symptoms. During that admission patient was diagnosed with DKA and patient left AMA. Patient has a history of medication noncompliance. Patient reported associated signs or symptoms of fatigue, LAWSON, weakness, shortness of breath and generalized body pains. Patient denies any other signs or symptoms. Symptoms are aggravated or relieved by nothing. Patient decided to present to the hospital due to worsening symptoms. Allergies No Known Allergies Allergy (Unverified 02/23/21 01:35) Home medications list reviewed: Yes - Past Medical/Surgical History Diabetic: Yes -: T1DM -: C section - Social History Smoking Status: Current every day smoker Counseled patient to stop smoking for: less than 10 minutes Smoking therapy provided: Yes Patient receptive to therapy: No Alcohol use: Yes CD- Drugs: No Caffeine use: Yes Place of Residence: Home Review of Systems General: Weakness, Malaise Eyes: Unremarkable ENT: Unremarkable Respiratory: Shortness of Breath, Unremarkable Cardiovascular: Unremarkable Gastrointestinal: Nausea, Vomiting Genitourinary: Unremarkable Musculoskeletal: Unremarkable Integumentary: Unremarkable Neurological: Weakness Physical Examination - Physical Exam General: Alert, Oriented x3, Acute distress HEENT: Atraumatic, Normocephalic, PERRLA, EOMI Neck: Supple, 2+ carotid pulse no bruit, Without JVD or thyroid abnormality Respiratory: Clear to auscultation bilaterally, Other (kussmaul respiration) Cardiovascular: No edema, Normal pulses, Regular rate/rhythm, Normal S1 S2 Capillary refill: <2 Seconds Gastrointestinal: Normal bowel sounds, No tenderness Musculoskeletal: No clubbing, No swelling, No tenderness Integumentary: No rashes, No breakdown Neurological: Normal gait, Normal speech, Normal strength at 5/5 x4 extr, Normal tone, Normal affect Lymphatics: No axilla or inguinal lymphadenopathy External genitalia: Deferred Rectal: Deferred - Studies Laboratory Data (last 24 hrs) 02/28/21 13:43: WBC 20.50 H* D, Hgb 16.3 H D, Hct 50.7 H D, Plt Count 531 H D 02/28/21 13:43: Sodium 137, Potassium 4.1, BUN 19 H, Creatinine 1.18, Glucose 455 H*, Total Bilirubin 0.3, AST 10 L, ALT 16, Alkaline Phosphatase 124 H, Lipase 156 Assessment and Plan - Plan --DKA associated with type 1 diabetes. Patient started on insulin drip protocol and bicarb drip in the ER. We trend BMP to monitor electrolytes and AG closure. Will keep patient NPO. Continue supportive care. --Nausea and vomiting. Antiemetics on board. Continue IV hydration. --Anxiety disorder. Lorazepam p.r.n. --Headache. Tylenol p.r.n. --leukocytosis. Likely reactive. Blood cultures pending. Will reassess levels in the a.m.. --DVT prophylaxis with Lovenox subQ Discharge Plan: Home Plan to discharge in: Greater than 2 days (All) - Advance Directives Does patient have a Living Will: No Does patient have a Durable POA for Healthcare: No - Code Status/Comfort Care Code Status Assessed: Yes (All) Code Status: Full Code (Pinned) Critical Care: No
[2021-02-28 17:43] VITALS: O2SAT 100
[2021-02-28] MEDS ORDERED: NA CHLORIDE 0.9% 1,000 ML IV ONE (17:56)
[2021-02-28] MEDS ORDERED: D5.45NS W/KCL 20MEQ 1,000 ML IV SCH (18:00)
[2021-02-28] MEDS ORDERED: NS KCL 20MEQ 1,000 ML IV SCH (18:00)
[2021-02-28] MEDS ORDERED: CEFTRIAXONE/SWI 1gm 1 GM/10 ML SYR IVP SCH (18:00)
[2021-02-28] MEDS ORDERED: NACHLORIDE 0.45% 1,000 ML with POTASSIUM CL 20 MEQ IV SCH ×2 (18:00)
[2021-02-28] MEDS ORDERED: LORazepam 2 MG/ML VIAL IV PRN (18:01)
[2021-02-28] MEDS: POTASSIUM CL IV SCH ×6 (18:21→19:12)
[2021-02-28] MEDS: NA BICARB IV SCH ×6 (18:21→19:12)
[2021-02-28] MEDS: D5W IV SCH ×6 (18:21→19:12)
[2021-02-28 18:24] VITALS: BMI 30.2
[2021-02-28] MEDS: ENOXAPARIN 40 MG/0.4 ML SQ SCH (18:29)
--- NOTE | 2021-02-28 18:34 | RAD REPORT ---
EXAM DESCRIPTION: RAD - Chest Single View - 02/28/2021 6:25 pm CLINICAL HISTORY: leukocytosis, DKA Chest pain. COMPARISON: Chest Single View dated 02/22/2021; Chest Single View dated 08/18/2018 FINDINGS: Portable technique limits examination quality. The lungs are grossly clear. The heart is normal in size. No displaced fractures. IMPRESSION: No acute intrathoracic process suspected.
[2021-02-28] MEDS ORDERED: ENOXAPARIN 40 MG/0.4 ML SQ ONE (18:47)
[2021-02-28] MEDS ORDERED: CEFTRIAXONE/SWI 1gm 1 GM/10 ML SYR ONE (18:48)
[2021-02-28] MEDS ORDERED: NACHLORIDE 0.45% IV SCH ×3 (19:00)
[2021-02-28] MEDS ORDERED: SODIUM BICARB 50 MEQ/50ML VIAL IV ONE (19:00)
[2021-02-28] MEDS ORDERED: POTASSIUM CL IV SCH ×3 (19:00)
[2021-02-28] MEDS ORDERED: CALCIUM GLUC 10% INJ 4.65 MEQ in NA CHLORIDE 0.9% 100 ML IV ONE (20:12)
[2021-02-28] MEDS ORDERED: CALCIUM GLUCONATE 1 GM IVPB 1 GM/50 ML BAG IV ONE (20:40)
[2021-02-28 23:25] LABS: BUN Blood Urea Nitrogen 11 mg/dL (7-18); Glucose Level 134 mg/dL (74-106); Potassium 3.2 mmol/L (3.5-5.1); Sodium Level 149 mmol/L (136-145)
[2021-02-28 23:39] LABS: Bicarbonate 9 mmol/L (21-32)
[2021-03-01] MEDS: KCL 20 MEQ/100 mL IVPB 20 MEQ/100 ML BAG IV SCH ×4 (00:26→07:14)
[2021-03-01] MEDS ORDERED: KCL 20 MEQ/100 mL IVPB 40 MEQ/200 ML BAG IV ONE ×2 (00:35→04:55)
[2021-03-01] MEDS: NA BICARB IV SCH ×3 (02:44)
[2021-03-01] MEDS: POTASSIUM CL IV SCH ×3 (02:44)
[2021-03-01] MEDS: D5W IV SCH ×3 (02:44)
[2021-03-01 03:38] LABS: BUN Blood Urea Nitrogen 11 mg/dL (7-18); Bicarbonate 17 mmol/L (21-32); Glucose Level 169 mg/dL (74-106); Potassium 3.2 mmol/L (3.5-5.1); Sodium Level 146 mmol/L (136-145)
[2021-03-01 06:35] LABS: Absolute Lymphocytes (CBC) 1.8 K/uL (0.7-4.9); Basophils % 0.4 % (0-1.3); Hematocrit 33.1 % (36.0-45.0); Lymphocytes % 26.8 % (15.3-44.8); RBC Red Blood Cell Count 3.93 M/uL (3.86-4.86)
[2021-03-01 06:44] LABS: ALT/SGPT 11 U/L (12-78); AST/SGOT < 3 U/L (15-37); Albumin 2.6 g/dL (3.4-5.0); Alkaline Phosphatase 67 U/L (45-117); BUN Blood Urea Nitrogen 10 mg/dL (7-18); Bicarbonate 22 mmol/L (21-32); Bilirubin Total 0.4 mg/dL (0.2-1.0); Glucose Level 120 mg/dL (74-106); HDL Cholesterol 30 mg/dL (40-60); LDL Cholesterol, Calculated 96 (<130); Potassium 3.1 mmol/L (3.5-5.1); Protein, Total 5.6 g/dL (6.4-8.2); Sodium Level 145 mmol/L (136-145)
--- NOTE | 2021-03-01 08:00 | P.CNS ---
Date of Consult: 03/01/21 Reason for Consult: Acidosis Requesting Physician: Mark Naylor Chief Complaint: Nausea and Vomitting History of Present Illness: Patient is a 25-year-old female with a past medical history significant for DM1 and Anxiety disorder who presents with complaint of nausea and vomiting Onset this morning. Patient was in the hospital 5 days ago with similar symptoms. During that admission patient was diagnosed with DKA and patient left AMA. Patient has a history of medication noncompliance. Patient reported associated signs or symptoms of fatigue, LAWSON, weakness, shortness of breath and generalized body pains. Patient denies any other signs or symptoms. Symptoms are aggravated or relieved by nothing. Patient decided to present to the hospital due to worsening symptoms. 13:48 This 25 yrs old Female presents to ER via Wheelchair with complaints of jr8 Vomiting, Dizziness, Flank Pain, Diabetic. 13:48 Onset: The symptoms/episode began/occurred acutely, today. The symptoms are aggravated jr8 by nothing. The symptoms are alleviated by nothing. Associated signs and symptoms: Pertinent positives: shortness of breath. Severity of symptoms: At their worst the symptoms were moderate in the emergency department the symptoms are unchanged. The patient has experienced similar episodes in the past, a few times. The patient has not recently seen a physician. Allergies No Known Allergies Allergy (Unverified 02/23/21 01:35) Home Medications: Insulin Aspart [Novolog Flexpen] See Protocol SQ SEECOM #1 box 03/01/21 Insulin Glargine Human [Lantus*] 20 units SQ DAILY #1 vial 03/01/21 - Past Medical/Surgical History Diabetic: Yes -: DM -: C section - Social History Smoking Status: Current every day smoker Alcohol use: Yes CD- Drugs: No Caffeine use: Yes Place of Residence: Home Review of Systems 10-point ROS is otherwise unremarkable General: Weakness, Malaise Physical Examination Temp Pulse Resp BP Pulse Ox 99.1 F 96 H 21 H 102/66 97 03/01/21 04:00 03/01/21 06:00 03/01/21 06:00 03/01/21 06:00 03/01/21 06:00 General: Oriented x3, Cooperative HEENT: Atraumatic Neck: Supple, JVD not distended Respiratory: Clear to auscultation bilaterally Cardiovascular: No edema, Regular rate/rhythm Gastrointestinal: Soft and benign, Non-distended Musculoskeletal: No clubbing, No contractures Integumentary: No rashes, No cyanosis Neurological: Normal speech Laboratory Data (last 24 hrs) 02/28/21 13:43: WBC 20.50 H* D, Hgb 16.3 H D, Hct 50.7 H D, Plt Count 531 H D 02/28/21 13:43: Sodium 137, Potassium 4.1, BUN 19 H, Creatinine 1.18, Glucose 45 5 H*, Total Bilirubin 0.3, AST 10 L, ALT 16, Alkaline Phosphatase 124 H, Lipase 156 Imagings Data: EXAM DESCRIPTION: RAD - Chest Single View - 02/28/2021 6:25 pm CLINICAL HISTORY: leukocytosis, DKA Chest pain. COMPARISON: Chest Single View dated 02/22/2021; Chest Single View dated 08/18/2018 FINDINGS: Portable technique limits examination quality. The lungs are grossly clear. The heart is normal in size. No displaced fractures. IMPRESSION: No acute intrathoracic process suspected. Conclusions/Impression: A/P: Continue the current POC and Medications other than the changes listed. AM Labs PRN. Recommend daily weight. Please see the orders for complete details. DM I with DKA -Aggressive IVF -Insulin gtt Hypokalemia -Replete potassium Hypocalcemia -Start Vitamin D Moderate malnutrition -Advance diet as tolerated Anemia in chronic illness -Monitor H&H Case reviewed with Dr. Naylor Thank you kindly for the consultation
--- NOTE | 2021-03-01 08:22 | P.PN ---
Subjective Date of Service: 03/01/21 Chief Complaint: Nausea and Vomitting Subjective: Improving, Doing well Physical Examination - Vital Signs Temperature: 99.1 F Blood Pressure: 102/66 Pulse: 96 Respirations: 21 Pulse Ox (%): 97 - Studies Laboratory Data (last 24 hrs) 02/28/21 13:43: WBC 20.50 H* D, Hgb 16.3 H D, Hct 50.7 H D, Plt Count 531 H D 02/28/21 13:43: Sodium 137, Potassium 4.1, BUN 19 H, Creatinine 1.18, Glucose 455 H*, Total Bilirubin 0.3, AST 10 L, ALT 16, Alkaline Phosphatase 124 H, Lipase 156 Assessment & Plan Discharge Plan: Home Plan to discharge in: 24 Hours Physician Review Additional Text: Physical exam: Patient alert, cooperative. No significant distress Heart: Regular rate and rhythm Lungs: Clear to auscultation Abdomen: Soft nontender nondistended Extremities: Good range of motion Impression: Nausea and vomiting secondary to DKA with type 1 diabetes, uncontrolled Anxiety disorder Plan: DKA resolved. Will transition off insulin drip. Start Lantus 20 units daily with moderate sliding scale. Compliance with medication address in detail. Patient reports that she does see endocrinology as an outpatient. She is not completely satisfied with the doctor. She plans to see somebody else. I told her the importance of strict control of her diabetes. We will provide food today. If doing well by this afternoon will consider discharge. We will need to readdress compliance with her medications. We will continue to reassess and monitor closely. Time Spent Managing Pts Care (In Minutes): 55
[2021-03-01] MEDS ORDERED: ACETAMINOPHEN 325 MG TABLET PO ONE (08:31)
[2021-03-01] MEDS: ENOXAPARIN 40 MG/0.4 ML SQ SCH (08:35)
[2021-03-01 08:39] LABS: Blood Morphology Comment NOT SEEN (NOT SEEN); Platelet Estimate ADEQ
[2021-03-01] MEDS ORDERED: ENOXAPARIN 40 MG/0.4 ML SQ ONE (08:52)
[2021-03-01] MEDS ORDERED: INSULIN GLARGINE 100 UNITS/ML SQ ONE (08:52)
[2021-03-01] MEDS ORDERED: ACETAMINOPHEN 325 MG TABLET ONE (08:52)
[2021-03-01] MEDS ORDERED: INSULIN GLARGINE 100 UNITS/ML SQ SCH (09:00)
[2021-03-01] MEDS ORDERED: CEFTRIAXONE 1 GM/NS 50 ML 1 GM/50 ML BAG IV SCH (09:00)
[2021-03-01] MEDS ORDERED: INSULIN -REGULAR HUMAN 50 UNIT/0.5 ML ML SQ SCH (11:30)
[2021-03-01] MEDS ORDERED: INSULIN -REGULAR HUMAN 50 UNIT/0.5 ML ML ONE (11:48)
--- NOTE | 2021-03-01 12:26 | P.CNS ---
Date of Consult: 03/01/21 Reason for Consult: Severe diabetic ketoacidosis Chief Complaint: Nausea and Vomitting History of Present Illness: Patient is 25 years of age recurrent admissions noncompliance admitted with severe diabetic ketoacidosis nausea vomiting very acid otic this morning patient has recovered doing well and 9 gap as narrowed Allergies No Known Allergies Allergy (Unverified 02/23/21 01:35) Home Medications: Pen Needle, Diabetic [Novofine Plus] QID 02/28/21 - Past Medical/Surgical History Diabetic: Yes -: DM -: C section - Social History Smoking Status: Current every day smoker Alcohol use: Yes CD- Drugs: No Caffeine use: Yes Place of Residence: Home Review of Systems 10-point ROS is otherwise unremarkable General: Weakness Physical Examination Temp Pulse Resp BP Pulse Ox 99.1 F 96 H 21 H 102/66 97 03/01/21 08:21 03/01/21 08:21 03/01/21 08:21 03/01/21 08:21 03/01/21 08:21 General: Alert, In no apparent distress, Oriented x3 Neck: Supple Respiratory: Clear to auscultation bilaterally Laboratory Data (last 24 hrs) 02/28/21 13:43: WBC 20.50 H* D, Hgb 16.3 H D, Hct 50.7 H D, Plt Count 531 H D 02/28/21 13:43: Sodium 137, Potassium 4.1, BUN 19 H, Creatinine 1.18, Glucose 455 H*, Total Bilirubin 0.3, AST 10 L, ALT 16, Alkaline Phosphatase 124 H, Lipase 156 - Problems (1) DKA (diabetic ketoacidoses) Current Visit: No Status: Acute Plan: Patient is 35 years of age admitted with severe diabetic ketoacidosis patient was volume resuscitated and treated with IV bicarbonate insulin he seems like her gap is non narrowed little bit hypokalemic and stop the bicarb drip patient started on insulin chest x-ray clear vital signs stable oxygenation status in resume a diet in a Qualifiers: Diabetes mellitus type: type 1 Diabetes mellitus complication detail: without coma Qualified Code(s): E10.10 - Type 1 diabetes mellitus with ketoacidosis without coma
--- NOTE | 2021-03-01 13:49 | P.DS ---
Admission Date: 02/28/21 Discharge Date: 03/01/21 Primary Care Provider: none; Endocrinology-[facility] [[email or web address]] Disposition: ROUTINE DISCHARGE Discharge Condition: GOOD Reason for Admission: Nausea and Vomitting Consultations: Pulmonary-Dr. Bustamante Nephrology-Dr. Sauer Procedures: COVID: negative CXR: COMPARISON: Chest Single View dated 02/22/2021; Chest Single View dated 08/18/2018 FINDINGS: Portable technique limits examination quality. The lungs are grossly clear. The heart is normal in size. No displaced fractures. IMPRESSION: No acute intrathoracic process suspected. Medical Problem List: Nausea and vomiting secondary to DKA with type 1 diabetes, uncontrolled Anxiety disorder Brief History of Present Illness: 25-year-old female with a past medical history significant for DM1 and Anxiety disorder who presents with complaint of nausea and vomiting. Patient was seen in the hospital about 5 days ago with similar complaints and was admitted for DKA. The patient left AGAINST MEDICAL ADVICE at that time. The patient was again found in DKA. DKA was severe patient required ICU hospitalization. Hospital Course: Patient presented with increased nausea and vomiting. Patient had been hospitalized over 1 week ago for DKA. She left AGAINST MEDICAL ADVICE. She was again admitted for DKA. DKA was severe. Patient required IV insulin and IV bicarbonate. Patient was treated with aggressive fluid hydration. Her condition improved. DKA resolved. Hemoglobin A1c 12.1. Patient needs better diabetic control at home. Patient was transitioned to Lantus 20 units daily with sliding scale. Patient has done well. Patient eager to go home. At discharge she is without significant nausea, vomiting. Blood sugars fairly controlled. At discharge patient will continue with Lantus 20 units daily. Patient will also go home with NovoLog mild sliding scale. Recommend to monitor blood sugars at least twice daily. Recommend to maintain blood sugar less than 140 fasting and less than 200 after meals. Recommend to increase Lantus by 2 to 4 units if blood sugars remain above 200. Patient is seen by endocrinology at [facility] [email or web address] Recommend follow-up with endocrinology within 1 week to follow-up hospitalization and continue her care. Patient does not have a PCP. Will provide a list of PCPs in the area to establish care. Compliance with medication addressed in detail. Recommend to recheck hemoglobin A1c in 3 months to monitor her progress. Further adjustment in medication and close follow-up can be done by endocrinology and PCP in the future. Vital Signs/Physical Exam: Temp Pulse Resp BP Pulse Ox 99.1 F 96 H 21 H 102/66 97 03/01/21 08:21 03/01/21 08:21 03/01/21 08:21 03/01/21 08:21 03/01/21 08:21 General: Alert, In no apparent distress, Oriented x3, Cooperative HEENT: Atraumatic Neck: Supple Respiratory: Clear to auscultation bilaterally, Normal air movement Cardiovascular: Normal pulses, Regular rate/rhythm Gastrointestinal: Normal bowel sounds, Soft and benign, Non-distended, No tenderness, No masses, No rebound, No guarding Musculoskeletal: No erythema, No tenderness, No warmth Integumentary: No tenderness/swelling Neurological: Normal speech, Normal strength at 5/5 x4 extr, Normal tone, Normal affect Laboratory Data at Discharge: WBC 6.80 K/uL (4.3-10.9) D 03/01/21 06:00 Hgb 11.5 g/dL (12.0-15.0) L D 03/01/21 06:00 Hct 33.1 % (36.0-45.0) L D 03/01/21 06:00 Plt Count 298 K/uL (152-406) D 03/01/21 06:00 Sodium 145 mmol/L (136-145) 03/01/21 06:00 Potassium 3.1 mmol/L (3.5-5.1) L 03/01/21 06:00 BUN 10 mg/dL (7-18) 03/01/21 06:00 Creatinine 0.65 mg/dL (0.55-1.3) 03/01/21 06:00 Glucose 120 mg/dL (74-106) H 03/01/21 06:00 Total Bilirubin 0.4 mg/dL (0.2-1.0) 03/01/21 06:00 AST < 3 U/L (15-37) L 03/01/21 06:00 ALT 11 U/L (12-78) L 03/01/21 06:00 Alkaline Phosphatase 67 U/L (45-117) 03/01/21 06:00 Triglycerides 169 mg/dL (<150) H 03/01/21 06:00 Cholesterol 160 mg/dL (<200) 03/01/21 06:00 HDL Cholesterol 30 mg/dL (40-60) L 03/01/21 06:00 Cholesterol/HDL Ratio 5.33 03/01/21 06:00 Lipase 156 U/L (73-393) 02/28/21 13:43 Home Medications: Pen Needle, Diabetic [Novofine Plus] QID 02/28/21 Insulin Aspart [Novolog Flexpen] See Protocol SQ SEECOM #1 box 03/01/21 Insulin Glargine Human [Lantus*] 20 units SQ DAILY #1 vial 03/01/21 New Medications: Insulin Glargine Human [Lantus*] 20 units SQ DAILY #1 vial Insulin Aspart [Novolog Flexpen] See Protocol SQ SEECOM #1 box Physician Discharge Instructions: Patient presented with increased nausea and vomiting. Patient had been hospitalized over 1 week ago for DKA. She left AGAINST MEDICAL ADVICE. She was again admitted for DKA. DKA was severe. Patient required IV insulin and IV bicarbonate. Patient was treated with aggressive fluid hydration. Her condition improved. DKA resolved. Hemoglobin A1c 12.1. Patient needs better diabetic control at home. Patient was transitioned to Lantus 20 units daily with sliding scale. Patient has done well. Patient eager to go home. At discharge she is without significant nausea, vomiting. Blood sugars fairly controlled. At discharge patient will continue with Lantus 20 units daily. Patient will also go home with NovoLog mild sliding scale. Recommend to monitor blood sugars at least twice daily. Recommend to maintain blood sugar less than 140 fasting and less than 200 after meals. Recommend to increase Lantus by 2 to 4 units if blood sugars remain above 200. Patient is seen by endocrinology at [facility] [[email or web address] Recommend follow-up with endocrinology within 1 week to follow-up hospitalization and continue her care. Patient does not have a PCP. Will provide a list of PCPs in the area to establish care. Compliance with medication addressed in detail. Recommend to recheck hemoglobin A1c in 3 months to monitor her progress. Further adjustment in medication and close follow-up can be done by endocrinology and PCP in the future. Diet: ADA Activity: Ad pepe Followup: NONE,NONE [Primary Care Provider] - Time spent managing pt's care (in minutes): 55
[2021-03-01 14:12] VITALS: BP 87/44; TEMP 98.7
[2021-03-05 14:57] LABS: Urine Blood 1+ (Negative); Urine Glucose 2+ (Negative); Urine Protein 3+ (Negative); Urine Specific Gravity >=1.030 (1.005-1.030)
== END 2021-03-01 15:00 | disposition home or self-care (01) | DRG 638 ==
LOC: ER 12:38 → ERHOLD 17:00
PROVIDERS: ADMIT Family Medicine; ATTEND Registered Nurse Emergency
DX: E10.10 Type 1 diabetes mellitus with ketoacidosis without coma (principal); E44.0 Moderate protein-calorie malnutrition; F17.210 Nicotine dependence, cigarettes, uncomplicated; F41.9 Anxiety disorder, unspecified; D72.829 Elevated white blood cell count, unspecified; D63.8 Anemia in other chronic diseases classified elsewhere; E87.6 Hypokalemia; E83.51 Hypocalcemia; Z68.30 Body mass index [BMI] 30.0-30.9, adult; Z79.4 Long term (current) use of insulin; Z20.822 Contact with and (suspected) exposure to COVID-19
CPT/HCPCS: 36415; 71045; 80048; 80053; 80061; 80076; 81003; 81025; 82010; 82805; 82947; 83036; 83690; 85025; 87040; 99285; J0610; J0696; J1650; J1815; J2405; J3480; J7030; U0003

== ENCOUNTER 2021-04-09 00:05 | Inpatient (IN) | payer OTHER ==
--- OUTSIDE RECORDS SUMMARY | 2021-04-09 00:15 | XMS REPORT | Continuity of Care Document ---
:1995 Author Organization [facility] t Address [address] [place] [address] Care Team Providers Name Role Phone Jarad JOHANSEN Attending Clinician YARON BRUNO Attending Clinician Unavailable YARON BRUNO Admitting Clinician Unavailable Payers Payer Name Policy Type Policy Number Effective Date Expiration Date S ource Problems Condition Condition Condition Status Onset Resolution Last Treating Co mments Source Name Details Category Date Date Treatment Clinician Date Diabetic Diabetic Disease [facility]ela kes - is with is with 00:00: Medical coma coma 00 Center Acute Acute Disease Active 2017-[address] metabolic metabolic 0-16 [facility] - encephalop encephalop 00:00: Me dical athy athy 00 Center Allergies, Adverse Reactions, Alerts Allergy Allergy Status Severity Reaction(s) Onset Inactive Treating Comm ents Source Name Type Date Date Clinician No Known DA Active U [facility] [place] 00:[facility]: [address] No Known DA Active U 2019-11 [facility] 11[facility]28 [place] 00:00: [address] No Known DA Active U 2019-11 [facility] [place] 00[facility]: [address] Center Social History Social Habit Start Date Stop Date Quantity Comments Source History of tobacco Cigarette Smoker [facility] use [facility] Sex Assigned At [facility] Cigarettes smoked 2018-08-18 2018-08-[address] [facility] - current (pack per 00:00:00 [facility]:00 [facility] Center day) - Reported Tobacco use and 2018-08-18 2018-08-[address] [facility] - exposure 00:00:00 00:00:00 [facility] Smoking Status Start Date Stop Date Source Current every day smoker 2018-08-18 00:00:00 [facility] Medications Ordered Filled Start Stop Current Ordering Indication Dosage Frequency Signature Comments Components Source Medication Medication Date Date Medication? Clinician (SIG) Name Name insulin 2017-11 Yes 27U QD Inject [facility]ine 0-21 0.27 [facility]s [facility] - (LANTUS) 00:00: (27 Units Medi geena 100 unit/mL 00 total) Center syringe subcutaneo usly every morning Use as directed. Procedures This patient has no known procedures. Plan of Care Planned Activity Planned Date Details Comments Source Future Scheduled 2021-07-[address] [facility] - Test 00:00:00 (Season Ended) [code = [facility] INFLUENZA VACCINE (Season Ended)] Future Scheduled 2020-11-[address] [facility] - Test 00:00:00 (12+) [code = [facility] DEPRESSION SCREENING (12+)] Future Scheduled 2018-11-[address] Gisela kes - Test 00:00:00 [facility] (procedure) [code = 07108387] Future Scheduled [address] [facility] - Test 00:00:00 [facility] cervix (procedure) [code = 659327492] Future Scheduled [address] [facility] - Test 00:00:00 (procedure) [code = [facility] [id number]] Future Scheduled 2013 DTAP/TDAP/TD VACCINES [facility] Test 00:[facility]:00 (1 - Tdap) [code = Medical C enter DTAP/TDAP/TD VACCINES (1 - Tdap)] Future Scheduled 2012 HEPATITIS C [facility]CRE[facility]ING [facility] [code = HEPATITIS C Medical Center SCREENING] Future Scheduled 2006 COVID-19 VACCINE (1) [facility] - Test 00:00:00 [code = COVID-[address] VACCINE (1)] Future Scheduled 2004 DIABETIC EYE EXAM [facility] Test 00:00:00 [code = DIABETIC EYE Medical Center EXAM] Future Scheduled 2004 Urine screening [facility] - Test 00:00:00 protein (procedure) [facility] [code = [id number]] Future Scheduled [address] [facility] - Test 00:00:00 0-64 YRS (1 of 1 - Medical C enter PPSV23) [code = PNEUMOCOCCAL VACCINE 0-64 YRS (1 of 1 - PPSV23)] Encounters Start End Encounter Admission Attending Care Care Encounter Source Date/Time Date/Time Type Type Clinicians Facility Department ID 2020-09-20 2020-09-20 Refill Abraham, [facility] [id number] 00:00:00 00:00:00 Constanza Duval [id number] Java [id number] Professio [phone] nal [address] [facility] 2020-07-16 2020-07-16 Refill Abraham, [facility] [id number] 00:00:00 00:00:00 Constanza Duval [id number] [employer] [id number] Professio [phone] [facility] [address] [facility] Results Test Description Test Time Test Comments Results Result Comments Source PLACENTA THIRD TRIMESTER 2020-12-07 11:28:00 Test Item Value Reference Range Interpretation Comme nts PLACENTA RUN DATE: THIRD 12/07/20 [facility] PAGE 1 RUN TIME: 1403 TRIMESTER Specimen Inquiry RUN USER: INTERFACE (test code = PLACIII) PATIENT: TASHI MOSQUERA LOC: MICHAEL U #: [id number] AGE/SX: ROOM: [place] RE11/29/20REG DR: Natalie Garcia MD : 89 BED: A DIS: 12/03/20 STATUS: DIS IN TLOC: SPEC #: [id number] RECD: STATUS: REKHA MAIKEL #: [id number] THERESE: 11/30/20- SUBM DR: Natalie Garcia MD ENTERED: 12/01/20 SP TYPE: PLACIII OTHR DR: ORDERED: LEVEL V SURGICA CODES: [id number] - PLACENTA, NOS PROCEDURES: LEVEL V SURGICA [...] for recurr ence in future pregnancies. CPT: 71691 [facility]/wpd GROSS DESCRIPTION The specimen was received in a container, labeled with the patient's name, unit number and designated "placenta". The following attributes are observed: Cord insertion: 1 cm from margin CONTINUED ON NEXT PAGE RUN DATE: 12/07/20 [facility] PAGE 2 RUN TIME: 1403 Specimen Inquiry RUN USER: INTERFACE SPEC #: [id number] PATIENT: TASHI MOSQUERA #[id number] (Continued) GROSS DESCRIPTION (Continued) Cord length: 30 [...] free of inflammation. Scattered calcifications are identified. pkrusty/wpd Signed Olive Barone 12/07/20 1128 END OF REPO RT [id number] 11:58:00 Test Item Value Reference Range Interpretation Comments GLUBED (test code = GLUBED) 71 mg/dL 65-110 N [id number] 06:51:00 Test Item Value Reference Range Interpretation Comments GLUBED (test code = GLUBED) 80 mg/dL 65-110 N [id number] 21:24:00 Test Item Value Reference Range Interpretation Comments GLUBED (test code = GLUBED) 103 mg/dL 65-110 N [id number] 15:15:00 Test Item Value Reference Range Interpretation Comments GLUBED (test code = GLUBED) 206 mg/dL 65-110 H [id number] 09:56:00 Test Item Value Reference Range Interpretation Comments GLUBED (test code = GLUBED) 200 mg/dL 65-110 H [id number] 06:48:00 Test Item Value Reference Range Interpretation Comments GLUBED (test code = GLUBED) 64 mg/dL 65-110 L [id number] 21:12:00 Test Item Value Reference Range Interpretation Comments GLUBED (test code = GLUBED) 186 mg/dL 65-110 H [id number] 14:15:00 Test Item Value Reference Range Interpretation Comments GLUBED (test code = GLUBED) 177 mg/dL 65-110 H [id number] 10:42:00 Test Item Value Reference Range Interpretation Comments GLUBED (test code = GLUBED) 242 mg/dL 65-110 H HGB [id number] 08:21:00 Test Item Value Reference Range Interpretation Comments HEMOGLOBIN (test code = HGB) 11.7 g/dL 10.7-13.9 N HEMATOCRIT (test code = HCT) 36.4 % 32.1-42.1 N [id number] 06:49:00 Test Item Value Reference Range Interpretation Comments GLUBED (test code = GLUBED) 115 mg/dL 65-110 H [id number] 22:46:00 Test Item Value Reference Range Interpretation Comments GLUBED (test code = GLUBED) 129 mg/dL 65-110 H [id number] 19:28:00 Test Item Value Reference Range Interpretation Comments GLUBED (test code = GLUBED) 221 mg/dL 65-110 H [id number] 17:42:00 Test Item Value Reference Range Interpretation Comments GLUBED (test code = GLUBED) 359 mg/dL 65-110 H [id number] 10:51:00 Test Item Value Reference Range Interpretation Comments GLUBED (test code = GLUBED) 126 mg/dL 65-110 H ARTERIAL BLOOD [id number] 10:01:00 Test Item Value Reference Range Interpretation [...] FIO2 (test code = FIO2A) 21.0 % PaO2/[id number] 10:01:00 Test Item Value Reference Range Interpretation Comments PaO2/FiO2 (test code = ZKO8GFQ8) mm/Hg ARTERIAL BLOOD [id number] 10:01:00 Test Item Value Reference Range Interpretation [...] FIO2 (test code = FIO2A) 21.0 % PaO2/[id number] 10:01:00 Test Item Value Reference Range Interpretation Comments PaO2/FiO2 (test code = QBB8GCK5) 70.40 mm/Hg CAPILLARY BLOOD [id number] 10:00:00 Test Item Value Reference Range Interpretation [...] FIO2 (test 21.0 % code = FIO2C) [id number] 06:32:00 Test Item Value Reference Range Interpretation Comments GLUBED (test code = GLUBED) 183 mg/dL 65-110 H [id number] 02:15:00 Test Item Value Reference Range Interpretation Comments GLUBED (test code = GLUBED) 82 mg/dL 65-110 N [id number] 22:52:00 Test Item Value Reference Range Interpretation Comments GLUBED (test code = GLUBED) 200 mg/dL 65-110 H AG HEPATITIS B [id number] 22:46:00 Test Item Value Reference Range Interpretation Comments AG HEPATITIS B SURFACE (test code NONREACTIVE NONREACTIVE = HBSAG) IS CONSENT FORM SIGNED FOR HIV TESTING? YAB HEPATITIS C [id number] 22:46:00 Test Item Value Reference Range Interpretation Comments AB HEPATITIS C (test code = NONREACTIVE NONREACTIVE HCVAB) SIGNAL TO CUTOFF (test code = 0.03 <0.80 N CUTOFF) IS CONSENT FORM SIGNED FOR HIV TESTING? YAB [id number] 22:46:00 Test Item Value Reference Range Interpretation Comments AB TREPONEMA (test code = TREPAB) NONREACTIVE NONREACTIVE IS CONSENT FORM SIGNED FOR HIV TESTING? YAB HIV 1 22:46:00 Test Item Value Reference Range Interpretation Comments AB HIV 1 2 (test NONREACTIVE NONREACTIVE [facility] by [facility] = [id number]) 4th Gen HIV Ag/Ab Combo Screen IS CONSENT FORM SIGNED FOR HIV TESTING? YAG HEPATITIS B [id number] 22:16:00 Test Item Value Reference Range Interpretation Comments AG HEPATITIS B SURFACE (test code NONREACTIVE NONREACTIVE = HBSAG) IS CONSENT FORM SIGNED FOR HIV TESTING? YAB HEPATITIS C [id number] 22:16:00 Test Item Value Reference Range Interpretation Comments AB HEPATITIS C (test code = HCVAB) NONREACTIVE SIGNAL TO CUTOFF (test code = CUTOFF) <0.80 IS CONSENT FORM SIGNED FOR HIV TESTING? YAB [id number] 22:16:00 Test Item Value Reference Range Interpretation Comments AB TREPONEMA (test code = TREPAB) NONREACTIVE NONREACTIVE IS CONSENT FORM SIGNED FOR HIV TESTING? YAB HIV 1 22:16:00 Test Item Value Reference Range Interpretation Comments AB HIV 1 2 (test code = PBK67XG) NONREACTIVE IS CONSENT FORM SIGNED FOR HIV TESTING? YCBC W/AUTO [id number] 21:47:00 Test Item Value Reference Range Interpretation [...] code = PLTMR) COVID 19 Asymptomatic IH [id number] 21:44:00 Test Item Value Reference Range Interpretation [...] or approved; th e test hasbeen authori marck by FDA under an Emerge ncy Use [...] and/o r diagnosis of CO VID-19 under Enfsdiy38 4(b)(1) of the Act, 21 U.S .C. 360bbb-3(b)(1), unless theauthorizatio n is terminated or r evoked sooner. [id number] 10:30:00 Test Item Value Reference Range Interpretation Comments GLUBED (test code = GLUBED) 105 mg/dL 65-110 N [id number] 06:29:00 Test Item Value Reference Range Interpretation Comments GLUBED (test code = GLUBED) 126 mg/dL 65-110 H [id number] 01:02:00 Test Item Value Reference Range Interpretation Comments GLUBED (test code = GLUBED) 72 mg/dL 65-110 N [id number] 20:42:00 Test Item Value Reference Range Interpretation Comments GLUBED (test code = GLUBED) 88 mg/dL 65-110 N [id number] 14:39:00 Test Item Value Reference Range Interpretation Comments GLUBED (test code = GLUBED) 149 mg/dL 65-110 H [id number] 11:20:00 Test Item Value Reference Range Interpretation Comments GLUBED (test code = GLUBED) 74 mg/dL 65-110 N [id number] 06:28:00 Test Item Value Reference Range Interpretation Comments GLUBED (test code = GLUBED) 103 mg/dL 65-110 N [id number] 06:28:00 Test Item Value Reference Range Interpretation Comments GLUBED (test code = GLUBED) 76 mg/dL 65-110 N [id number] 22:06:00 Test Item Value Reference Range Interpretation Comments GLUBED (test code = GLUBED) 78 mg/dL 65-110 N [id number] 16:07:00 Test Item Value Reference Range Interpretation Comments GLUBED (test code = GLUBED) 167 mg/dL 65-110 H [id number] 10:42:00 Test Item Value Reference Range Interpretation Comments GLUBED (test code = GLUBED) 130 mg/dL 65-110 H [id number] 04:47:00 Test Item Value Reference Range Interpretation Comments GLUBED (test code = GLUBED) 78 mg/dL 65-110 N [id number] 20:47:00 Test Item Value Reference Range Interpretation Comments GLUBED (test code = GLUBED) 160 mg/dL 65-110 H [id number] 14:52:00 Test Item Value Reference Range Interpretation Comments GLUBED (test code = GLUBED) 235 mg/dL 65-110 H [id number] 10:54:00 Test Item Value Reference Range Interpretation Comments GLUBED (test code = GLUBED) 148 mg/dL 65-110 H [id number] 07:01:00 Test Item Value Reference Range Interpretation Comments GLUBED (test code = GLUBED) 82 mg/dL 65-110 N [id number] 06:05:00 Test Item Value Reference Range Interpretation Comments GLUBED (test code = GLUBED) 61 mg/dL 65-110 L [id number] 20:39:00 Test Item Value Reference Range Interpretation Comments GLUBED (test code = GLUBED) 312 mg/dL 65-110 H GLYCOSYLATED HEMOGLOBIN [id number] 17:32:00 Test Item Value Reference Range Interpretation [...] H (test code = MBG) COMPREHENSIVE METABOLIC [id number] 17:32:00 Test Item Value Reference Range Interpretation [...] considered for these patients. AG HEPATITIS B [id number] 15:30:00 Test Item Value Reference Range Interpretation Comments AG HEPATITIS B SURFACE (test code NONREACTIVE NONREACTIVE = HBSAG) IS CONSENT FORM SIGNED FOR HIV TESTING? YAB HEPATITIS C [id number] 15:30:00 Test Item Value Reference Range Interpretation Comments AB HEPATITIS C (test code = NONREACTIVE NONREACTIVE HCVAB) SIGNAL TO CUTOFF (test code = 0.02 <0.80 N CUTOFF) IS CONSENT FORM SIGNED FOR HIV TESTING? YAB [id number] 15:30:00 Test Item Value Reference Range Interpretation Comments AB TREPONEMA (test code = TREPAB) NONREACTIVE NONREACTIVE IS CONSENT FORM SIGNED FOR HIV TESTING? YAB HIV 1 15:30:00 Test Item Value Reference Range Interpretation Comments AB HIV 1 2 (test NONREACTIVE [facility]REACTIVE [facility] BYF45RW) 4th Gen HIV Ag/Ab Combo Screen IS CONSENT FORM SIGNED FOR HIV TESTING? [id number] 15:23:00 Test Item Value Reference Range Interpretation Comments GLUBED (test code = GLUBED) 266 mg/dL 65-110 H COVID 19 Asymptomatic IH [id number] 15:16:00 Test Item Value Reference Range Interpretation [...] or approved; th e test hasbeen authori marck by FDA under an Emerge ncy Use [...] and/o r diagnosis of CO VID-19 under Bvrbowy73 4(b)(1) of the Act, 21 U.S .C. 360bbb-3(b)(1), unless theauthorizatio n is terminated or r evoked sooner. AG HEPATITIS B [id number] 15:08:00 Test Item Value Reference Range Interpretation Comments AG HEPATITIS B SURFACE (test code NONREACTIVE NONREACTIVE = HBSAG) IS CONSENT FORM SIGNED FOR HIV TESTING? JUSTINOB HEPATITIS C [id number] 15:08:00 Test Item Value Reference Range Interpretation Comments AB HEPATITIS C (test code = HCVAB) NONREACTIVE SIGNAL TO CUTOFF (test code = CUTOFF) <0.80 IS CONSENT FORM SIGNED FOR HIV TESTING? YAB [id number] 15:08:00 Test Item Value Reference Range Interpretation Comments AB TREPONEMA (test code = TREPAB) NONREACTIVE NONREACTIVE IS CONSENT FORM SIGNED FOR HIV TESTING? JUSTINOB HIV 1 15:08:00 Test Item Value Reference Range Interpretation Comments AB HIV 1 2 (test code = ZVI70WJ) NONREACTIVE IS CONSENT FORM SIGNED FOR HIV TESTING? YUR PROTEIN/CREATININE [id number] 14:46:00 Test Item Value Reference Range Interpretation Comments UR PROTEIN RANDOM (test code = 11.5 mg/dL PROTU) UR CREATININE RANDOM (test 24.6 mg/dL code = CREATU) PROTEIN/CREATININE RATIO (test 460.0 mg/gcrea <200 H code = P/CRATIO) COMPREHENSIVE METABOLIC [id number] 14:38:00 Test Item Value Reference Range Interpretation [...] (HA1C) (test code = GLYHGB) CBC W/AUTO [id number] 14:26:00 Test Item Value Reference Range Interpretation [...] NORMAL NORMAL code = PLTMR) - US [id number] 06:06:00 [facility] : 1995 Sex: F Patient Name: TASHI MOSQUERA Unit No: [id number] EXAMS: CPT CODE: [id number] [place] L[place] 26999 STUDY: - US LTD 09/28/2020 5:04 AM Ordering Physician: Cipriano Alex III, MD Patient Name: TASHI MOSQUERA MR: [id number] : 1995; Age: 25 years y/o Female [...] weeks 3 days as above described. The [facility] NAME: TASHI MOSQUERA Radiology Department PHYS: Cipriano Michelle III, MD [address] : 1995 AGE: 25 SEX: [place], [place] [address] LOC: AnupTONY PHONE #: [phone] EXAM DATE: 09/28/2020 STATUS: REG ER FAX #: [phone] RAD NO: Page 1 Signed Report (CONTINUED) Patient Name: Tee MOSQUERA Unit No: [id number] EXAMS: CPT CODE: [id number] [place] L[place] [address]2080 <C ontinued> ALEXY 17.8 cm. Trace fluid [...] TPAINTER-H at 0606 Reported and signed by: Arpit Jaffe MD CC: Natalie Garcia MD; Cipriano Alex III, MD Technologist: ERICA ZHOU RDMS, [facility] Probe: Trnscrbd D/ (0606) t.SDR.TP6 Orig Print D/T: S: 09/28/2020 (0609) The [facility] [place] [facility] NAME: IGLESIATASHI Radiology Department PHYS: Cipriano Michelle III, MD [address] : 1995 AGE: 25 SEX: F [place], [place] [address] LOC: AnupTONY PHONE #: [phone] EXAM DATE: 09/28/2020 STATUS: REG ER FAX #: [phone] RAD NO: Page 2 Signed Report Patient Name: TASHI MOSQUERA Unit No: [id number] EXAMS: CPT CODE: [id number] [place] LTD [address]6932 <Continued> The [facility] [place] [facility] NAME: TASHI MOSQUERA Radiology Department PHYS: Cipriano Michelle III, MD [address] : 1995 AGE: 25 SEX: F [place], [place] [address] LOC: NIRED PHONE #: [phone] EXAM DATE: 09/28/2020 STATUS: REG ER FAX #: [phone] RAD NO: Page 3 Signed ReportURINALYSIS [id number] 05:32:00 Test Item Value Reference Range Interpretation [...] SEEN Specimen Comment: JOSE ROSALES SAMPLE: CLEAN [id number] 05:29:00 Test Item Value Reference Range Interpretation Comments GLUBED (test code = GLUBED) 91 mg/dL 65-110 N [id number] 14:54:00 Test Item Value Reference Range Interpretation Comments GLUBED (test code = GLUBED) 95 mg/dL 65-110 N [id number] 14:54:00 Test Item Value Reference Range Interpretation Comments GLUBED (test code = GLUBED) 124 mg/dL 65-110 H [id number] 14:54:00 Test Item Value Reference Range Interpretation Comments GLUBED (test code = GLUBED) 131 mg/dL 65-110 H COMPREHENSIVE METABOLIC [id number] 12:46:00 Test Item Value Reference Range Interpretation [...] 44 units/L 46-116 L code = ALKP) [id number] 12:46:00 Test Item Value Reference Range Interpretation Comments PHOSPHOROUS (test code = PHOS) 1.6 mg/dL 2.5-4.9 L [id number] 12:46:00 Test Item Value Reference Range Interpretation Comments MAGNESIUM (test code = MAG) 1.7 mg/dL 1.8-2.4 L CBC W/AUTO [id number] 12:04:00 Test Item Value Reference Range Interpretation [...] REQUIRED (test NORMAL NORMAL code = PLTMR) [id number] 10:33:00 Test Item Value Reference Range Interpretation Comments GLUBED (test code = GLUBED) 136 mg/dL 65-110 H [id number] 10:33:00 Test Item Value Reference Range Interpretation Comments GLUBED (test code = GLUBED) 180 mg/dL 65-110 H COMPREHENSIVE METABOLIC [id number] 07:48:00 Test Item Value Reference Range Interpretation [...] 42 units/L 46-116 L code = ALKP) [id number] 07:48:00 Test Item Value Reference Range Interpretation Comments PHOSPHOROUS (test code = PHOS) 1.6 mg/dL 2.5-4.9 L [id number] 07:48:00 Test Item Value Reference Range Interpretation Comments MAGNESIUM (test code = MAG) 1.6 mg/dL 1.8-2.4 L [id number] 07:06:00 Test Item Value Reference Range Interpretation Comments GLUBED (test code = GLUBED) 184 mg/dL 65-110 H [id number] 06:27:00 Test Item Value Reference Range Interpretation Comments GLUBED (test code = GLUBED) 187 mg/dL 65-110 H COMPREHENSIVE METABOLIC [id number] 05:46:00 Test Item Value Reference Range Interpretation [...] 42 units/L 46-116 L code = ALKP) [id number] 05:46:00 Test Item Value Reference Range Interpretation Comments MAGNESIUM (test code = MAG) 1.6 mg/dL 1.8-2.4 L CBC W/AUTO [id number] 05:34:00 Test Item Value Reference Range Interpretation [...] REQUIRED (test NORMAL NORMAL code = PLTMR) [id number] 05:22:00 Test Item Value Reference Range Interpretation Comments GLUBED (test code = GLUBED) 208 mg/dL 65-110 H [id number] 04:21:00 Test Item Value Reference Range Interpretation Comments GLUBED (test code = GLUBED) 210 mg/dL 65-110 H [id number] 03:22:00 Test Item Value Reference Range Interpretation Comments GLUBED (test code = GLUBED) 229 mg/dL 65-110 H [id number] 02:22:00 Test Item Value Reference Range Interpretation Comments GLUBED (test code = GLUBED) 247 mg/dL 65-110 H [id number] 01:34:00 Test Item Value Reference Range Interpretation Comments GLUBED (test code = GLUBED) 261 mg/dL 65-110 H [id number] 00:21:00 Test Item Value Reference Range Interpretation Comments GLUBED (test code = GLUBED) 276 mg/dL 65-110 H [id number] 23:23:00 Test Item Value Reference Range Interpretation Comments GLUBED (test code = GLUBED) 282 mg/dL 65-110 H [id number] 22:29:00 Test Item Value Reference Range Interpretation Comments GLUBED (test code = GLUBED) 193 mg/dL 65-110 H [id number] 22:29:00 Test Item Value Reference Range Interpretation Comments GLUBED (test code = GLUBED) 172 mg/dL 65-110 H [id number] 22:29:00 Test Item Value Reference Range Interpretation Comments GLUBED (test code = GLUBED) 123 mg/dL 65-110 H [id number] 22:29:00 Test Item Value Reference Range Interpretation Comments GLUBED (test code = GLUBED) 158 mg/dL 65-110 H [id number] 22:29:00 Test Item Value Reference Range Interpretation Comments GLUBED (test code = GLUBED) 192 mg/dL 65-110 H COMPREHENSIVE METABOLIC [id number] 21:00:00 Test Item Value Reference Range Interpretation Comments SODIUM (test code = 136 mEq/L 135-145 N NA) POTASSIUM (test code 3.5 mEq/L 3.5-5.0 N = K) CHLORIDE (test code 108 mEq/L 100-115 N = CL) CARBON DIOXIDE (test 13 mEq/L 22-31 LL RESULTS VERIFIED BY code = CO2) REPEAT ANALYSIS RESULTS CALLED TO LILIA PETERSEN BACK & CONFIRME D? YES.BY F.LAB.TT T 09/26/202058. ANION GAP (test code 18.70 [...] units/L 46-116 TOTAL (test code = ALKP) [id number] 21:00:00 Test Item Value Reference Range Interpretation Comments PHOSPHOROUS (test code = PHOS) 1.8 mg/dL 2.5-4.9 L [id number] 21:00:00 Test Item Value Reference Range Interpretation Comments MAGNESIUM (test code = MAG) 1.4 mg/dL 1.8-2.4 L OSMOLALITY [id number] 20:51:00 Test Item Value Reference Range Interpretation Comments OSMOLALITY SERUM (test code = 296 mOsm/kg 275-295 H OSMO) OSMOLALITY [id number] 20:51:00 Test Item Value Reference Range Interpretation [...] be considered for these patients. GLYCOSYLATED HEMOGLOBIN [id number] 20:49:00 Test Item Value Reference Range Interpretation [...] H (test code = MBG) CBC W/AUTO [id number] 19:25:00 Test Item Value Reference Range Interpretation [...] NORMAL NORMAL code = PLTMR) VBG IONIZED [id number] 19:21:00 Test Item Value Reference Range Interpretation Comments VBG IONIZED CALCIUM (test code = 1.06 mmol/L 0.9-1.29 N ICAL/VBG) COMPREHENSIVE METABOLIC [id number] 19:09:00 Test Item Value Reference Range Interpretation [...] .BY FNithinLABNithinTTT 09/26. ANION GAP (test code . 10-20 H = GAP) GLUCOSE (test code [...] 46-116 N TOTAL (test code = ALKP) [id number] 19:09:00 Test Item Value Reference Range Interpretation Comments PHOSPHOROUS (test code = PHOS) 1.9 mg/dL 2.5-4.9 L [id number] 19:09:00 Test Item Value Reference Range Interpretation Comments MAGNESIUM (test code = MAG) 1.5 mg/dL 1.8-2.4 L [id number] 17:36:00 Test Item Value Reference Range Interpretation Comments GLUBED (test code = GLUBED) 212 mg/dL 65-110 H UR PROTEIN/CREATININE [id number] 17:25:00 Test Item Value Reference Range Interpretation Comments UR PROTEIN RANDOM 56.6 mg/dL (test code = PROTU) UR CREATININE 11.1 mg/dL RANDOM (test code = CREATU) PROTEIN/CREATININE 5090.0 <200 H RESULTS V ERIFIED BY RATIO (test code = mg/gcrea REPEAT AN ALYSISRESULTS P/CRATIO) CALLED TO SASHA READ BACK & CONFIRME D? YESBY F.LAB.TTT 09/26 1725 COMPREHENSIVE METABOLIC [id number] 17:24:00 Test Item Value Reference Range Interpretation Comments SODIUM (test code = 136 mEq/L 135-145 N NA) POTASSIUM (test code 4.7 mEq/L 3.5-5.0 N = K) CHLORIDE (test code 103 mEq/L 100-115 N = CL) CARBON DIOXIDE (test 11 mEq/L 22-31 LL RESULTS VERIFIED BY code = CO2) REPEAT ANALYSIS RESULTS CALLED TO SASHA READ BACK & CONFIRME D? YES.BY F.LAB.TT T 09/26/20 1723. ANION GAP (test code 26.90 10-20 H [...] 46-116 N TOTAL (test code = ALKP) [id number] 17:24:00 Test Item Value Reference Range Interpretation Comments PHOSPHOROUS (test code = PHOS) 2.9 mg/dL 2.5-4.9 N [id number] 17:24:00 Test Item Value Reference Range Interpretation Comments AMYLASE (test code = CHELSIE) 77 units/L 30-110 N [id number] 17:24:00 Test Item Value Reference Range Interpretation Comments MAGNESIUM (test code = MAG) 1.7 mg/dL 1.8-2.4 L C REACTIVE [id number] 17:08:00 Test Item Value Reference Range Interpretation Comments C REACTIVE PROTEIN (test code = 0.2 mg/dL 0.6-1.2 L CRP) URINALYSIS [id number] 17:00:00 Test Item Value Reference Range Interpretation [...] = MUCU) RARE NONE SEEN CBC W/AUTO [id number] 16:53:00 Test Item Value Reference Range Interpretation [...] NORMAL NORMAL code = PLTMR) COMPREHENSIVE METABOLIC [id number] 13:57:00 Test Item Value Reference Range Interpretation [...] 48 units/L 46-116 N code = ALKP) [id number] 13:57:00 Test Item Value Reference Range Interpretation Comments LIPASE (test code = LIP) 85 units/L 73-393 N ACETONE [id number] 13:57:00 Test Item Value Reference Range Interpretation Comments ACETONE QUAL (test code = ACETNQL) NEGATIVE NEGATIVE BETA [id number] 13:57:00 Test Item Value Reference Range Interpretation Comments BETA HYDROBUTYRATE (test 2.2 mg/dL () Ref erence Range:All code = BETHYD) Ages (fasting ): 0.2 - 2.8Performed At: [facility] [address] [place] [address] [id number] danial Blanton MD Ph:[phone] [id number] 13:24:00 Test Item Value Reference Range Interpretation Comments GLUBED (test code = GLUBED) 169 mg/dL 65-110 H [id number] 11:17:00 Test Item Value Reference Range Interpretation Comments GLUBED (test code = GLUBED) 91 mg/dL 65-110 N [id number] 07:59:00 Test Item Value Reference Range Interpretation Comments GLUBED (test code = GLUBED) 162 mg/dL 65-110 H - US PREG UT [id number] 04:23:00 Patient Name: TASHI MOSQUERA Unit No: [id number] EXAMS: CPT CODE: [id number] US PREG UT TRANSVAGINAL 52388 STUDY: - US LTD, - US PREG UT TRANSVAGINAL 08/05/2020 12:59 AM Ordering Physician: Shira Arredondo MD Patient Name: TASHI MOSQUERA MR: [id number] : 1995; Age: 25 years y/o Female [...] Not performed Small free pelvic fluid. The [facility] [place] [facility] NAME: TASHI MOSQUERA Radiology Department PHYS: Natalie Foley MD [address] : 1995 AGE: 25 SEX: [place], [place] [address] LOC: Anup2624 Claude PHONE #: [phone] EXAM DATE: 08/05/2020 STATUS: ADM IN FAX #: [phone] RAD NO: Page 1 Signed Report (CONTINUED) Patient Name: TASHI MOSQUERA Unit No: [id number] EXAMS: CPT CODE: [id number] US PREG UT TRANSVAGINAL [address]2045 <Continued> IMPRESSION: Single liveintrauterine at 19 weeks [...] . at 0423 Reported and signed by: Arpit Jaffe MD CC: Natalie Garcia MD Technologist: Charlotte Kidd RDMS Probe: [id number] Trnscrbd D/ (0423) t.SDR.TP6 Orig Print D/T: S: 08/05/2020 (0426) The [facility] [place] [facility] PHYS: Natalie Foley MD [address] : 1995 AGE: 25 SEX: [place], [place] [address] LOC: F.2624 A PHONE #: [phone] EXAM DATE: 08/05/2020 STATUS: ADM IN FAX #: [phone] RAD NO: Page 2 Signed Report Patient Name: TASHI MOSQUERA Unit No: [id number] EXAMS: CPT CODE: [id number] US PREG UT TRANSVAGINAL 87848 <Continued> The [facility] [place] [facility] Department PHYS: Natalie Foley MD [address] : 1995 AGE: 25 SEX: [place], [place] [address] LOC: F.2624 A PHONE #: [phone] EXAM DATE: 08/05/2020 STATUS: ADM IN FAX #: [phone] RAD NO: Page 3 Signed Report- US [id number] 04:23:00 Patient Name: TASHI MOSQUERA Unit No: [id number] EXAMS: CPT CODE: [id number] US LTD [address] STUDY: - US LTD, - US PREG UT TRANSVAGINAL 08/05/2020 12:59 AM Ordering Physician: Shira Arredondo MD Patient Name: TASHI MOSQUERA MR: [id number] : 1995; Age: 25 years y/o Female [...] Not performed Small free pelvic fluid. The [facility] NAME: TASHI MOSQUERA Radiology Department PHYS: Shira Truong MD [address] : 1995 AGE: 25 SEX: [place], [place] [address] LOC: F.2624 A PHONE #: [phone] EXAM DATE: 08/05/2020 STATUS: ADM IN FAX #: [phone] RAD NO: Page 1 Signed Report (CONTINUED) Patient Name: TASHI MOSQUERA Unit No: [id number] EXAMS: CPT CODE: [id number] US LTD [address] <Continued> IMPRESSION: Single liveintrauterine at 19 weeks [...] . at 0423 Reported and signed by: Arpit Jaffe MD CC: Shira Arredondo MD Technologist: Charlotte Kidd RDMS Probe: Trnscrbd D/ (0423) t.SDR.TP6 Orig Print D/T: S: 08/05/2020 (0426) [facility] NAME: EDMUNDO MOSQUERAANY Radiology Department PHYS: Shira Truong MD [address] : 1995 AGE: 25 SEX: [place] [address] LOC: F.4 A PHONE #: [phone] EXAM DATE: 08/05/2020 STATUS: ADM IN FAX #: [phone] RAD NO: Page 2 Signed Report Patient Name: TASHI MOSQUERA Unit No: [id number] EXAMS: CPT CODE: [id number] US LTD [address] <Continued> The [facility] [place] [facility] NAME: EDMUNDO MOSQUERAANY Radiology Department PHYS: Shira Truong MD [address] : 1995 AGE: 25 SEX: [place] [address] LOC: F.2624 A PHONE #: [phone] EXAM DATE: STATUS: ADM IN FAX #: [phone] RAD NO: Page 3 Signed ReportARTERIAL BLOOD [id number] 03:03:00 Test Item Value Reference Range Interpretation [...] FIO2 (test code = FIO2A) 21.0 % PaO2/[id number] 03:03:00 Test Item Value Reference Range Interpretation Comments PaO2/FiO2 (test code = WED0NHW7) mm/Hg [id number] 03:03:00 Test Item Value Reference Range Interpretation Comments GLUCOSE (test code = GLU/ABG) 201 MG/DL 60-110 H ARTERIAL BLOOD [id number] 03:03:00 Test Item Value Reference Range Interpretation [...] FIO2 (test code = FIO2A) 21.0 % PaO2/[id number] 03:03:00 Test Item Value Reference Range Interpretation Comments PaO2/FiO2 (test code = SCE0SPQ9) 471.40 mm/Hg [id number] 03:03:00 Test Item Value Reference Range Interpretation Comments GLUCOSE (test code = GLU/ABG) 201 MG/DL 60-110 H COMPREHENSIVE METABOLIC [id number] 02:23:00 Test Item Value Reference Range Interpretation [...] 48 units/L 46-116 N code = ALKP) [id number] 02:23:00 Test Item Value Reference Range Interpretation Comments LIPASE (test code = LIP) 85 units/L 73-393 N ACETONE [id number] 02:23:00 Test Item Value Reference Range Interpretation Comments ACETONE QUAL (test code = ACETNQL) NEGATIVE NEGATIVE BETA [id number] 02:23:00 Test Item Value Reference Range Interpretation Comments BETA HYDROBUTYRATE (test code = BETHYD) COOXIMETRY [id number] 02:14:00 Test Item Value Reference Range Interpretation Comments HEMOGLOBIN (test code = HGB/ABG) 13.0 g/dL 12-16 N HEMATOCRIT (test code = HCT/ABG) 38 % 37-47 N METHEMOGLOBIN (test code = METHGB) 0.6 % 0.0-1.5 N VENOUS BLOOD [id number] 02:14:00 Test Item Value Reference Range Interpretation [...] code = 21.0 % FIO2V) CBC W/AUTO [id number] 02:00:00 Test Item Value Reference Range Interpretation [...] = PLTMR) UA RFLX MICR CULT IF [id number] 01:47:00 Test Item Value Reference Range Interpretation [...] Suprapubic PainSpecimen Description: CLEAN CATCH COMPREHENSIVE METABOLIC [id number] 01:47:00 Test Item Value Reference Range Interpretation [...] 48 units/L 46-116 N code = ALKP) [id number] 01:47:00 Test Item Value Reference Range Interpretation Comments LIPASE (test code = LIP) 85 units/L 73-393 N ACETONE [id number] 01:47:00 Test Item Value Reference Range Interpretation Comments ACETONE QUAL (test code = ACETNQL) NEGATIVE BETA [id number] 01:47:00 Test Item Value Reference Range Interpretation Comments BETA HYDROBUTYRATE (test code = BETHYD) ISLET CELL AB [id number] 14:36:00 Test Item Value Reference Range Interpretation Comments ISLET CELL AB Refer to individual AUTOVERIFICATION (test Islet Cell Ab code = 2556) and/or Islet Cell Ab Titer results. BLOOD [id number] 00:00:00 Test Item Value Reference Range Interpretation Comments CULTURE (BEAKER) (test No growth in 5 days code = 1095) BLOOD [id number] 00:00:00 Test Item Value Reference Range Interpretation Comments CULTURE (BEAKER) (test No growth in 5 days code = 1095) POCT-GLUCOSE [id number] 12:04:00 Test Item Value Reference Range Interpretation Comments POC-GLUCOSE METER 178 mg/dL 70-110 H TESTED AT [place] [address] (BEAKER) (test code = JOHANNY James [place] 1538) [address] POCT-GLUCOSE [id number] 07:46:00 Test Item Value Reference Range Interpretation Comments POC-GLUCOSE METER 210 mg/dL 70-110 H TESTED AT [place] [address] (BEAKER) (test code = JOHANNY James [place] 1538) [address] CBC (HEMOGRAM ONLY)2018-08-23 06:39:00 Test Item Value Reference Range Interpretation Comments WHITE BLOOD CELL COUNT (BEAKER) 4.7 K/ L 3.5-10.5 (test code = 775) RED BLOOD CELL COUNT (BEAKER) 4.38 M/ L 3.93-5.22 (test code = 761) HEMOGLOBIN (BEAKER) (test code = 13.3 GM/DL 11.2-15.7 410) HEMATOCRIT (BEAKER) (test code = 40.2 % 34.1-44.9 411) MEAN CORPUSCULAR VOLUME (BEAKER) 91.8 fL 79.4-94.8 (test code = 753) MEAN CORPUSCULAR HEMOGLOBIN 30.4 pg 25.6-32.2 (BEAKER) (test code = 751) MEAN CORPUSCULAR HEMOGLOBIN CONC 33.1 GM/DL 32.2-35.5 (BEAKER) (test code = 752) RED CELL DISTRIBUTION WIDTH 12.9 % 11.7-14.4 (BEAKER) (test code = 412) PLATELET COUNT (BEAKER) (test 186 K/CU MM 150-450 code = 756) MEAN PLATELET VOLUME (BEAKER) 10.6 fL 9.4-12.3 (test code = 754) NUCLEATED RED BLOOD CELLS 0 /100 WBC 0-0 (BEAKER) (test code = 413) POCT-GLUCOSE [id number] 22:06:00 Test Item Value Reference Range Interpretation Comments POC-GLUCOSE METER 157 mg/dL 70-110 H TESTED AT [place] [address] (BEAKER) (test code = JOHANNY James [place] 1538) [address] POCT-GLUCOSE [id number] 17:54:00 Test Item Value Reference Range Interpretation Comments POC-GLUCOSE METER 223 mg/dL 70-110 H TESTED AT [place] [address] (BEAKER) (test code = JOHANNY James [facility] 1538) [address] POCT-GLUCOSE [id number] 12:06:00 Test Item Value Reference Range Interpretation Comments POC-GLUCOSE METER 227 mg/dL 70-110 H TESTED AT [place] [address] (BEAKER) (test code = JOHANNY James [facility] 1538) [address] POCT-GLUCOSE [id number] 07:46:00 Test Item Value Reference Range Interpretation Comments POC-GLUCOSE METER 237 mg/dL 70-110 H TESTED AT [place] [address] (BEAKER) (test code = JOHANNY James [facility] 1538) [address] CBC (HEMOGRAM ONLY)2018-08-22 07:12:00 Test Item Value Reference Range Interpretation Comments WHITE BLOOD CELL COUNT (BEAKER) 6.1 K/ L 3.5-10.5 (test code = 775) RED BLOOD CELL COUNT (BEAKER) 4.62 M/ L 3.93-5.22 (test code = 761) HEMOGLOBIN (BEAKER) (test code = 14.1 GM/DL 11.2-15.7 410) HEMATOCRIT (BEAKER) (test code = 41.9 % 34.1-44.9 411) MEAN CORPUSCULAR VOLUME (BEAKER) 90.7 fL 79.4-94.8 (test code = 753) MEAN CORPUSCULAR HEMOGLOBIN 30.5 pg 25.6-32.2 (BEAKER) (test code = 751) MEAN CORPUSCULAR HEMOGLOBIN CONC 33.7 GM/DL 32.2-35.5 (BEAKER) (test code = 752) RED CELL DISTRIBUTION WIDTH 13.5 % 11.7-14.4 (BEAKER) (test code = 412) PLATELET COUNT (BEAKER) (test 220 K/CU MM 150-450 code = 756) MEAN PLATELET VOLUME (BEAKER) 10.6 fL 9.4-12.3 (test code = 754) NUCLEATED RED BLOOD CELLS 0 /100 WBC 0-0 (BEAKER) (test code = 413) POCT-GLUCOSE [id number] 21:37:00 Test Item Value Reference Range Interpretation Comments POC-GLUCOSE METER 264 mg/dL 70-110 H TESTED AT [place] [address] (BEAKER) (test code = JOHANNY James [facility] 1538) [address] POCT-GLUCOSE [id number] 17:52:00 Test Item Value Reference Range Interpretation Comments POC-GLUCOSE METER 273 mg/dL 70-[address] [facility] [address] (BEBANNER) (test code = JOHANNY James [facility] 1538) [address] POCT-GLUCOSE [id number] 11:57:00 Test Item Value Reference Range Interpretation Comments POC-GLUCOSE METER 316 mg/dL 70-110 H Notified R Rubén JOHANSEN/TESTED (BEAKER) (test code = AT [facility] [address] [facility] 1538) [facility] [address] POCT-GLUCOSE [id number] 07:58:00 Test Item Value Reference Range Interpretation Comments POC-GLUCOSE METER 246 mg/dL 70-110 H TESTED AT [place] [address] ([facility]) (test code = JOHANNY James [place] [address]) [address] [id number] 07:27:00 Test Item Value Reference Range Interpretation Comments PHOSPHORUS (BEAKER) (test code = 3.3 mg/dL 2.3-4.7 604) [id number] 07:27:00 Test Item Value Reference Range Interpretation Comments MAGNESIUM (BEAKER) (test code = 2.1 mg/dL 1.6-2.6 627) COMPREHENSIVE METABOLIC [id number] 07:27:00 Test Item Value Reference Range Interpretation Comments TOTAL PROTEIN 5.4 gm/dL 6.0-8.3 L (BEAKER) (test code = 770) ALBUMIN (BEAKER) 3.1 g/dL 3.5-5.0 L (test code = 1145) ALKALINE PHOSPHATASE 106 U/L 40-150 (BEAKER) (test code = 346) BILIRUBIN TOTAL 0.8 mg/dL 0.2-1.2 (BEAKER) (test code = 377) SODIUM (BEAKER) (test 141 meq/L 136-145 code = 381) POTASSIUM (BEAKER) 4.2 meq/L 3.5-5.1 (test code = 379) CHLORIDE (BEAKER) 108 meq/L 98-107 H (test code = 382) CO2 (BEAKER) (test 21 meq/L 22-29 L code = 355) BLOOD UREA NITROGEN 6 mg/dL 7-21 L (BEAKER) (test code = 354) CREATININE (BEAKER) 0.69 mg/dL 0.57-1.25 (test code = 358) GLUCOSE RANDOM 260 mg/dL 70-105 H (BEAKER) (test code = 652) CALCIUM (BEAKER) 8.6 mg/dL 8.4-10.2 (test code = 697) AST (SGOT) (BEAKER) 13 U/L 5-34 (test code = 353) ALT (SGPT) (BEAKER) 11 U/L 6-55 (test code = 347) EGFR (BEAKER) (test 105 ESTIMATE D GFR IS code = 1092) mL/min/1.73 sq NOT ACCURA TE m CREATININE CLEARANCE IN PREDICTING GLOMERULAR FILTRATION RATE . ESTIMATED GFR I S NOT APPLICABLE FOR DIALYSIS PATIEN TS. CALCIUM, [id number] 07:03:00 Test Item Value Reference Range Interpretation Comments CALCIUM IONIZED (BEAKER) (test 1.12 mmol/L 1.12-1.27 code = 698) PH, BLOOD (BEAKER) (test code = 7.46 1810) CBC W/PLT COUNT & AUTO [id number] 06:38:00 Test Item Value Reference Range Interpretation Comments WHITE BLOOD CELL COUNT (BEAKER) 6.8 K/ L 3.5-10.5 (test code = 775) RED BLOOD CELL COUNT (BEAKER) 3.92 M/ L 3.93-5.22 L (test code = 761) HEMOGLOBIN (BEAKER) (test code = 11.9 GM/DL 11.2-15.7 410) HEMATOCRIT (BEAKER) (test code = 34.9 % 34.1-44.9 411) MEAN CORPUSCULAR VOLUME (BEAKER) 89.0 fL 79.4-94.8 (test code = 753) MEAN CORPUSCULAR HEMOGLOBIN 30.4 pg 25.6-32.2 (BEAKER) (test code = 751) MEAN CORPUSCULAR HEMOGLOBIN CONC 34.1 GM/DL 32.2-35.5 (BEAKER) (test code = 752) RED CELL DISTRIBUTION WIDTH 14.4 % 11.7-14.4 (BEAKER) (test code = 412) PLATELET COUNT (BEAKER) (test 198 K/CU MM 150-450 code = 756) MEAN PLATELET VOLUME (BEAKER) 10.7 fL 9.4-12.3 (test code = 754) NUCLEATED RED BLOOD CELLS 0 /100 WBC 0-0 (BEAKER) (test code = 413) NEUTROPHILS RELATIVE PERCENT 51 % (BEAKER) (test code = 429) LYMPHOCYTES RELATIVE PERCENT 39 % (BEAKER) (test code = 430) MONOCYTES RELATIVE PERCENT 9 % (BEAKER) (test code = 431) EOSINOPHILS RELATIVE PERCENT 1 % (BEAKER) (test code = 432) BASOPHILS RELATIVE PERCENT 0 % (BEAKER) (test code = 437) NEUTROPHILS ABSOLUTE COUNT 3.42 K/ L 1.56-6.13 (BEAKER) (test code = 670) LYMPHOCYTES ABSOLUTE COUNT 2.62 K/ L 1.18-3.74 (BEAKER) (test code = 414) MONOCYTES ABSOLUTE COUNT (BEAKER) 0.58 K/ L 0.24-0.36 H (test code = 415) EOSINOPHILS ABSOLUTE COUNT 0.09 K/ L 0.04-0.36 (BEAKER) (test code = 416) BASOPHILS ABSOLUTE COUNT (BEAKER) 0.02 K/ L 0.01-0.08 (test code = 417) IMMATURE GRANULOCYTES-RELATIVE 0 % 0-1 PERCENT (BEAKER) (test code = 2801) POCT-GLUCOSE [id number] 22:26:00 Test Item Value Reference Range Interpretation Comments POC-GLUCOSE METER 325 mg/dL 70-110 H Notified Erika Montana MD/TESTED (BEAKER) (test code = AT [facility] [address] [facility]) [facility] [address] POCT-GLUCOSE [id number] 21:46:00 Test Item Value Reference Range Interpretation Comments POC-GLUCOSE METER 312 mg/dL 70-[address] [facility] [address] (BEAKER) (test code = JOHANNY James [place] [address]) [address] BASIC METABOLIC [id number] 21:39:00 Test Item Value Reference Range Interpretation Comments SODIUM (BEAKER) 140 meq/L 136-145 (test code = 381) POTASSIUM (BEAKER) 4.5 meq/L 3.5-5.1 Specimen moderately (test code = 379) hemolyzed CHLORIDE (BEAKER) 110 meq/L 98-107 H (test code = 382) CO2 (BEAKER) (test 20 meq/L 22-29 L code = 355) BLOOD UREA NITROGEN 6 mg/dL 7-21 L (BEAKER) (test code = 354) CREATININE (BEAKER) 0.79 mg/dL 0.57-1.25 Specimen moderately (test code = 358) hemolyzed GLUCOSE RANDOM 287 mg/dL 70-105 H (BEAKER) (test code = 652) CALCIUM (BEAKER) 8.6 mg/dL 8.4-10.2 (test code = 697) EGFR (BEAKER) (test 89 mL/min/1.73 ESTIMA OLGA GFR IS code = 1092) sq m NOT ACCURATE CREATININE CLEARANCE IN PREDICTING GLOMERULAR FILTRATION RATE . ESTIMATED GFR I S NOT APPLICABLE FOR DIALYSIS PATIEN TS. [id number] 19:06:00 Test Item Value Reference Range Interpretation Comments PHOSPHORUS (BEAKER) (test code = 3.3 mg/dL 2.3-4.7 604) [id number] 19:06:00 Test Item Value Reference Range Interpretation Comments MAGNESIUM (BEAKER) (test code = 2.2 mg/dL 1.6-2.6 627) [id number] 17:17:00 Test Item Value Reference Range Interpretation Comments PHOSPHORUS (BEAKER) (test code = 3.3 mg/dL 2.3-4.7 604) [id number] 17:17:00 Test Item Value Reference Range Interpretation Comments MAGNESIUM (BEAKER) (test code = 2.3 mg/dL 1.6-2.6 627) BASIC METABOLIC [id number] 17:17:00 Test Item Value Reference Range Interpretation Comments SODIUM (BEAKER) 146 meq/L 136-145 H (test code = 381) POTASSIUM (BEAKER) 3.5 meq/L 3.5-5.1 (test code = 379) CHLORIDE (BEAKER) 115 meq/L 98-107 H (test code = 382) CO2 (BEAKER) (test 22 meq/L 22-29 code = 355) BLOOD UREA NITROGEN 6 mg/dL 7-21 L (BEAKER) (test code = 354) CREATININE (BEAKER) 0.66 mg/dL 0.57-1.25 (test code = 358) GLUCOSE RANDOM 77 mg/dL 70-105 (BEAKER) (test code = 652) CALCIUM (BEAKER) 8.9 mg/dL 8.4-10.2 (test code = 697) EGFR ([facility]) (test 110 mL/min/1.73 ESTIM ATED GFR IS code = 1092) sq m NOT ACCURATE CREATININE CLEARANCE IN PREDICTING GLOMERULAR FILTRATION RATE . ESTIMATED GFR I S NOT APPLICABLE FOR DIALYSIS PATIEN TS. POCT-GLUCOSE [id number] 17:15:00 Test Item Value Reference Range Interpretation Comments POC-GLUCOSE METER 86 mg/dL 70-110 TESTED AT [place] [address] ([facility]) (test code = [facility] [address]38) POCT-GLUCOSE [id number] 15:29:00 Test Item Value Reference Range Interpretation Comments POC-GLUCOSE METER 176 mg/dL 70-110 H TESTED AT [place] [address] ([facility]) (test code = [facility] 1538) [address] POCT-GLUCOSE [id number] 14:05:00 Test Item Value Reference Range Interpretation Comments POC-GLUCOSE METER 198 mg/dL 70-110 H TESTED AT [place] [address] ([facility]) (test code = [facility] 1538) [address] POCT-GLUCOSE [id number] 13:02:00 Test Item Value Reference Range Interpretation Comments POC-GLUCOSE METER 148 mg/dL 70-110 H TESTED AT [place] [address] ([facility]) (test code = [facility] 1538) [address] POCT-GLUCOSE [id number] 12:23:00 Test Item Value Reference Range Interpretation Comments POC-GLUCOSE METER 170 mg/dL 70-110 H TESTED AT [place] [address] ([facility]) (test code = [facility] 1538) [address] [id number] 11:33:00 Test Item Value Reference Range Interpretation Comments PHOSPHORUS (BEAKER) (test code = 3.1 mg/dL 2.3-4.7 604) [id number] 11:33:00 Test Item Value Reference Range Interpretation Comments MAGNESIUM (BEAKER) (test code = 1.8 mg/dL 1.6-2.6 627) BASIC METABOLIC [id number] 11:33:00 Test Item Value Reference Range Interpretation Comments SODIUM (BEAKER) 147 meq/L 136-145 H (test code = 381) POTASSIUM (BEAKER) 3.5 meq/L 3.5-5.1 (test code = 379) CHLORIDE (BEAKER) 117 meq/L 98-107 H (test code = 382) CO2 (BEAKER) (test 21 meq/L 22-29 L code = 355) BLOOD UREA NITROGEN 6 mg/dL 7-21 L (BEAKER) (test code = 354) CREATININE (BEAKER) 0.74 mg/dL 0.57-1.25 (test code = 358) GLUCOSE RANDOM 209 mg/dL 70-105 H (BEAKER) (test code = 652) CALCIUM (BEAKER) 8.9 mg/dL 8.4-10.2 (test code = 697) EGFR (BEAKER) (test 96 mL/min/1.73 ESTIMA OLGA GFR IS code = 1092) sq m NOT ACCURATE CREATININE CLEARANCE IN PREDICTING GLOMERULAR FILTRATION RATE . ESTIMATED GFR I S NOT APPLICABLE FOR DIALYSIS PATIEN TS. KETONE, [id number] 11:26:00 Test Item Value Reference Range Interpretation Comments KETONES, BLOOD (BEAKER) (test code 1.4 mmol/L <0.4 H = 1103) POCT-GLUCOSE [id number] 11:05:00 Test Item Value Reference Range Interpretation Comments POC-GLUCOSE METER 206 mg/dL 70-[address] [facility] [address] ([facility]) (test code = [facility] Erika [facility] 1538) [id number] POCT-GLUCOSE [id number] 10:15:00 Test Item Value Reference Range Interpretation Comments POC-GLUCOSE METER 245 mg/dL 70-[address] [facility] [address] ([place]) (test code = [facility] Erika [facility] 1538) [id number] POCT-GLUCOSE [id number] 09:02:00 Test Item Value Reference Range Interpretation Comments POC-GLUCOSE METER 205 mg/dL 70-[address] [facility] [address] ([place]) (test code = [facility] Erika [facility] 1538) [id number] POCT-GLUCOSE [id number] 07:54:00 Test Item Value Reference Range Interpretation Comments POC-GLUCOSE METER 206 mg/dL 70-[address] [facility] [address] ([place]) (test code = [facility] Erika [facility] 1538) [address] POCT-GLUCOSE [id number] 07:54:00 Test Item Value Reference Range Interpretation Comments POC-GLUCOSE METER 217 mg/dL 70-[address] [facility] [address] ([place]) (test code = [place] 1538) [address] KETONE, [id number] 07:25:00 Test Item Value Reference Range Interpretation Comments KETONES, BLOOD (BEAKER) (test code 4.3 mmol/L <0.4 H = 1103) [id number] 07:00:00 Test Item Value Reference Range Interpretation Comments PHOSPHORUS (BEAKER) (test code = 2.5 mg/dL 2.3-4.7 604) [id number] 07:00:00 Test Item Value Reference Range Interpretation Comments MAGNESIUM (BEAKER) (test code = 2.0 mg/dL 1.6-2.6 627) BASIC METABOLIC [id number] 07:00:00 Test Item Value Reference Range Interpretation Comments SODIUM (BEAKER) 148 meq/L 136-145 H (test code = 381) POTASSIUM (BEAKER) 3.5 meq/L 3.5-5.1 (test code = 379) CHLORIDE (BEAKER) 119 meq/L 98-107 H (test code = 382) CO2 (BEAKER) (test 18 meq/L 22-29 L code = 355) BLOOD UREA NITROGEN 7 mg/dL 7-21 (BEAKER) (test code = 354) CREATININE (BEAKER) 0.79 mg/dL 0.57-1.25 (test code = 358) GLUCOSE RANDOM 208 mg/dL 70-105 H (BEAKER) (test code = 652) CALCIUM (BEAKER) 8.9 mg/dL 8.4-10.2 (test code = 697) EGFR (BEAKER) (test 89 mL/min/1.73 ESTIMA OLGA GFR IS code = 1092) sq m NOT ACCURATE CREATININE CLEARANCE IN PREDICTING GLOMERULAR FILTRATION RATE . ESTIMATED GFR I S NOT APPLICABLE FOR DIALYSIS PATIEN TS. POCT-GLUCOSE [id number] 06:13:00 Test Item Value Reference Range Interpretation Comments POC-GLUCOSE METER 223 mg/dL 70-[address] [facility] 6720 (BEAKER) (test code = JOHANNY James [place] 1538) [address] POCT-GLUCOSE [id number] 05:20:00 Test Item Value Reference Range Interpretation Comments POC-GLUCOSE METER 224 mg/dL 70-110 H TESTED AT [place] [address] (BEAKER) (test code = JOHANNY James [place] 1538) [address] POCT-GLUCOSE [id number] 04:08:00 Test Item Value Reference Range Interpretation Comments POC-GLUCOSE METER 165 mg/dL 70-110 H TESTED AT [place] [address] (BEAKER) (test code = JOHANNY James [place] 1538) [id number] POCT-GLUCOSE [id number] 03:25:00 Test Item Value Reference Range Interpretation Comments POC-GLUCOSE METER 130 mg/dL 70-110 H TESTED AT [place] [address] (BEAKER) (test code = JOHANNY James [place] 1538) [address] [id number] 02:50:00 Test Item Value Reference Range Interpretation Comments PROCALCITONIN (BEAKER) (test code 2.96 ng/mL <0.05 H = 3036) SEPSIS RISK (ng/mL)Low: 0.05-0.50Intermediate: 0.51-2.00High: >=2.01KETONE, [id number] 02:15:00 Test Item Value Reference Range Interpretation Comments KETONES, BLOOD (BEAKER) (test code 3.1 mmol/L <0.4 H = 1103) POCT-GLUCOSE [id number] 02:13:00 Test Item Value Reference Range Interpretation Comments POC-GLUCOSE METER 153 mg/dL 70-110 H TESTED AT [place] [address] (BEAKER) (test code = JOHANNY James [place] 1538) [address] [id number] 02:01:00 Test Item Value Reference Range Interpretation Comments PHOSPHORUS (BEAKER) (test code = 2.4 mg/dL 2.3-4.7 604) [id number] 02:01:00 Test Item Value Reference Range Interpretation Comments MAGNESIUM (BEAKER) (test code = 2.1 mg/dL 1.6-2.6 627) BASIC METABOLIC [id number] 02:01:00 Test Item Value Reference Range Interpretation Comments SODIUM (BEAKER) 146 meq/L 136-145 H (test code = 381) POTASSIUM (BEAKER) 4.1 meq/L 3.5-5.1 (test code = 379) CHLORIDE (BEAKER) 118 meq/L 98-107 H (test code = 382) CO2 (BEAKER) (test 19 meq/L 22-29 L code = 355) BLOOD UREA NITROGEN 7 mg/dL 7-21 (BEAKER) (test code = 354) CREATININE (BEAKER) 0.80 mg/dL 0.57-1.25 (test code = 358) GLUCOSE RANDOM 147 mg/dL 70-105 H (BEAKER) (test code = 652) CALCIUM (BEAKER) 8.9 mg/dL 8.4-10.2 (test code = 697) EGFR (BEAKER) (test 88 mL/min/1.73 ESTIMA OLGA GFR IS code = 1092) sq m NOT ACCURATE CREATININE CLEARANCE IN PREDICTING GLOMERULAR FILTRATION RATE . ESTIMATED GFR I S NOT APPLICABLE FOR DIALYSIS PATIEN TS. [id number] 02:01:00 Test Item Value Reference Range Interpretation Comments AMYLASE (BEAKER) (test code = 349) 129 U/L 25-125 H [id number] 02:01:00 Test Item Value Reference Range Interpretation Comments LIPASE (BEAKER) (test code = 749) 47 U/L 8-78 CBC (HEMOGRAM ONLY)2018-08-20 01:26:00 Test Item Value Reference Range Interpretation Comments WHITE BLOOD CELL COUNT (BEAKER) 15.5 K/ L 3.5-10.5 H (test code = 775) RED BLOOD CELL COUNT (BEAKER) 3.92 M/ L 3.93-5.22 L (test code = 761) HEMOGLOBIN (BEAKER) (test code = 12.0 GM/DL 11.2-15.7 410) HEMATOCRIT (BEAKER) (test code = 33.8 % 34.1-44.9 L 411) MEAN CORPUSCULAR VOLUME (BEAKER) 86.2 fL 79.4-94.8 (test code = 753) MEAN CORPUSCULAR HEMOGLOBIN 30.6 pg 25.6-32.2 (BEAKER) (test code = 751) MEAN CORPUSCULAR HEMOGLOBIN CONC 35.5 GM/DL 32.2-35.5 (BEAKER) (test code = 752) RED CELL DISTRIBUTION WIDTH 14.2 % 11.7-14.4 (BEAKER) (test code = 412) PLATELET COUNT (BEAKER) (test 244 K/CU MM 150-450 code = 756) MEAN PLATELET VOLUME ([facility]) 9.8 fL 9.4-12.3 (test code = 754) NUCLEATED RED BLOOD CELLS 0 /100 WBC 0-0 ([facility]) (test code = 413) POCT-GLUCOSE [id number] 01:05:00 Test Item Value Reference Range Interpretation Comments POC-GLUCOSE METER 171 mg/dL 70-110 H TESTED AT [place] [address] ([facility]) (test code = JOHANNY James [facility] 1538) [address] POCT-GLUCOSE [id number] 00:32:00 Test Item Value Reference Range Interpretation Comments POC-GLUCOSE METER 171 mg/dL 70-110 H TESTED AT [place] [address] ([facility]) (test code = [facility] Erika [facility] 1538) [address] POCT-GLUCOSE [id number] 23:15:00 Test Item Value Reference Range Interpretation Comments POC-GLUCOSE METER 177 mg/dL 70-110 H TESTED AT [place] [address] ([facility]) (test code = [facility] Erika [facility] 1538) [address] POCT-GLUCOSE [id number] 22:16:00 Test Item Value Reference Range Interpretation Comments POC-GLUCOSE METER 170 mg/dL 70-110 H TESTED AT [place] [address] ([facility]) (test code = [facility] Erika [facility] 1538) [address] POCT-GLUCOSE [id number] 22:16:00 Test Item Value Reference Range Interpretation Comments POC-GLUCOSE METER 191 mg/dL 70-110 H TESTED AT [place] [address] ([facility]) (test code = [facility] Erika [facility] 1538) [address] KETONE, [id number] 20:49:00 Test Item Value Reference Range Interpretation Comments KETONES, BLOOD ([facility]) (test code 3.2 mmol/L <0.4 H = 1103) [id number] 20:46:00 Test Item Value Reference Range Interpretation Comments PHOSPHORUS (BEAKER) (test code = 2.2 mg/dL 2.3-4.7 L 604) [id number] 20:46:00 Test Item Value Reference Range Interpretation Comments MAGNESIUM (BEBANNER) (test code = 2.2 mg/dL 1.6-2.6 627) BASIC METABOLIC [id number] 20:46:00 Test Item Value Reference Range Interpretation Comments SODIUM (BEAKER) 146 meq/L 136-145 H (test code = 381) POTASSIUM (BEAKER) 3.3 meq/L 3.5-5.1 L (test code = 379) CHLORIDE (BEAKER) 118 meq/L 98-107 H (test code = 382) CO2 (BEAKER) (test 17 meq/L 22-29 L code = 355) BLOOD UREA NITROGEN 8 mg/dL 7-21 (BEAKER) (test code = 354) CREATININE (BEAKER) 0.93 mg/dL 0.57-1.25 (test code = 358) GLUCOSE RANDOM 189 mg/dL 70-105 H (BEAKER) (test code = 652) CALCIUM (BEAKER) 8.7 mg/dL 8.4-10.2 (test code = 697) EGFR (BEAKER) (test 74 mL/min/1.73 ESTIMA OLGA GFR IS code = 1092) sq m NOT ACCURATE CREATININE CLEARANCE IN PREDICTING GLOMERULAR FILTRATION RATE . ESTIMATED GFR I S NOT APPLICABLE FOR DIALYSIS PATIEN TS. BLOOD GAS, [id number] 20:29:00 Test Item Value Reference Range Interpretation Comments PH VENOUS (BEAKER) (test code = 7.41 7.32-7.42 701) PCO2 VENOUS (BEAKER) (test code = 31 mmHg 41-51 L 755) PO2 VENOUS (BEAKER) (test code = 49 mmHg 25-40 H 702) O2 SATURATION VENOUS (BEAKER) 85.2 % 40.0-70.0 H (test code = 703) HCO3 VENOUS (BEAKER) (test code = 19 mmol/L 21-29 L 705) BASE EXCESS VENOUS (BEAKER) (test -4.7 mmol/L -2.0-3.0 L code = 704) PATIENT TEMPERATURE (BEAKER) 37.0 C (test code = 1818) FIO2 (BEAKER) (test code = 1819) 21.0 % POCT-GLUCOSE [id number] 20:09:00 Test Item Value Reference Range Interpretation Comments POC-GLUCOSE METER 219 mg/dL 70-[address] [facility] 6720 (BEAKER) (test code = J[place]ANNY [place] 1538) [address] POCT-GLUCOSE [id number] 18:58:00 Test Item Value Reference Range Interpretation Comments POC-GLUCOSE METER 248 mg/dL 70-[address] [facility] 6720 (MARTÍN) (test code = JOHANNY [place] 1538) [address] CT, IMELDANGJENNIFER [id number] 18:36:00Addendum BeginsREPORT STATUS:A Not mentioned in the body of the report, thereis bilateral temporomandibular joint dislocation, with the mandibular condyles lying anterior and superior to the mandibular eminences. Signed: Arpit Smith Verified Date/Time: 08/19/201818:36:40 Reading Location: [facility] Radiology Reading RoomAddendum EndsFINAL REPORT CTA brain 08/19/2018 1:22 PM CLINICAL INDICATION: Left SAH COMPARISON: CT brain without c ontrast 08/18/2018 TECHNIQUE: Noncontrast CT images of the [...] mass effect. 2. Unremarkable intracranial CTA. Signed: Arpit Smith Verified Date/Time: 08/19/2018 13:33:21 Reading Location: [facility] Radiology Reading Room RAD, MANDIBLE, LESS THAN 4 VIEWS 2018-08-19 18:35:00Reason for exam:->dysarthria, fallFINAL REPORT Mandible 6 [...] There is no radiopaque foreign body. Signed: Arpit Smith Verified Date/Time: 08/19/2018 18:35:55 Reading Location: [facility] Radiology Reading Room POCT-GLUCOSE [id number] 18:22:00 Test Item Value Reference Range Interpretation Comments POC-GLUCOSE METER 222 mg/dL 70-[address] [facility] 6720 (BEBANNER) (test code = [facility] 1538) [id number] POCT-GLUCOSE [id number] 16:58:00 Test Item Value Reference Range Interpretation Comments POC-GLUCOSE METER 277 mg/dL 70-[address] [facility] 6720 (BEBANNER) (test code = [facility] 1538) [address] [id number] 16:12:00 Test Item Value Reference Range Interpretation Comments PHOSPHORUS (BEAKER) (test code = 2.9 mg/dL 2.3-4.7 604) [id number] 16:12:00 Test Item Value Reference Range Interpretation Comments MAGNESIUM (BEAKER) (test code = 1.7 mg/dL 1.6-2.6 627) BASIC METABOLIC [id number] 16:12:00 Test Item Value Reference Range Interpretation Comments SODIUM (BEAKER) 146 meq/L 136-145 H (test code = 381) POTASSIUM (BEAKER) 2.8 meq/L 3.5-5.1 L (test code = 379) CHLORIDE (BEAKER) 115 meq/L 98-107 H (test code = 382) CO2 (BEAKER) (test 14 meq/L 22-29 L code = 355) BLOOD UREA NITROGEN 8 mg/dL 7-21 (BEAKER) (test code = 354) CREATININE ([facility]) 1.06 mg/dL 0.57-1.25 (test code = 358) GLUCOSE RANDOM 290 mg/dL 70-105 H ([facility]) (test code = 652) CALCIUM ([facility]) 9.1 mg/dL 8.4-10.2 (test code = 697) EGFR ([facility]) (test 64 mL/min/1.73 ESTIMA OLGA GFR IS code = 1092) sq m NOT ACCURATE CREATININE CLEARANCE IN PREDICTING GLOMERULAR FILTRATION RATE . ESTIMATED GFR I S NOT APPLICABLE FOR DIALYSIS PATIEN TS. KETONE, [id number] 15:46:00 Test Item Value Reference Range Interpretation Comments KETONES, BLOOD ([facility]) (test code 6.0 mmol/L <0.4 H = 1103) POCT-GLUCOSE [id number] 15:18:00 Test Item Value Reference Range Interpretation Comments POC-GLUCOSE METER 322 mg/dL 70-110 H Will Repea t Test/TESTED ([facility]) (test code = AT [address]) [facility] [address] 0 POCT-GLUCOSE [id number] 14:27:00 Test Item Value Reference Range Interpretation Comments POC-GLUCOSE METER 232 mg/dL 70-110 H TESTED AT [place] [address] ([facility]) (test code = [place] [address]) [address] POCT-GLUCOSE [id number] 13:05:00 Test Item Value Reference Range Interpretation Comments POC-GLUCOSE METER 240 mg/dL 70-110 H TESTED AT [place] [address] ([facility]) (test code = [place] [address]) [address] POCT-GLUCOSE [id number] 12:16:00 Test Item Value Reference Range Interpretation Comments POC-GLUCOSE METER 201 mg/dL 70-110 H TESTED AT [place] [address] ([facility]) (test code = [place] [address]) [address] CT, [id number] 11:46:00FINAL REPORT INDICATION:23-year-old female with abdominal pain. Evaluate for pancreatitis. COMPARISON: None. TECHNIQUE: CT of the Abdomen and Pelvis WITHOUT intravenous contrast.Enteric contrast was used. The exam was performed according to our department dose-optimization protocol, which includes automated exposure control, adjustments of mA and kV according to patient size. Iterative reconstructions are also sometimes employed. FINDINGS:No stranding around the pancreas is demonstrated. Pancreas is normal in configuration and no pancreatic mass, calcification, or ductal dilatation is demonstrated. Liver, gallbladder, spleen, adrenal glands, kidneys, uterus, ovaries are unremarkable. There is a transurethral balloon catheter in the bladder. There is no evidence of bowel obs truction or infection. Appendix is normal. Diverticuli of the sigmoid colon noted. No peritoneal free fluid or free air is demonstrated. Osseous structures unremarkable. IMPRESSION: No evidence of pancreatitis. Signed: Mally Yoo MDReport Verified Date/Time: 08/19/2018 11:46:24 Reading Location: [facility] Diagnostic Imaging Reading Room - [place] [id number] BASIC METABOLIC PANEL 2018-08-19 11:17:00 Test Item Value Reference Range Interpretation Comments SODIUM (BEAKER) 149 meq/L 136-145 H (test code = 381) POTASSIUM (BEAKER) 4.6 meq/L 3.5-5.1 (test code = 379) CHLORIDE (BEAKER) 116 meq/L 98-107 H (test code = 382) CO2 (BEAKER) (test 19 meq/L 22-29 L code = 355) BLOOD UREA NITROGEN 12 mg/dL 7-21 (BEAKER) (test code = 354) CREATININE (BEAKER) 0.94 mg/dL 0.57-1.25 (test code = 358) GLUCOSE RANDOM 142 mg/dL 70-105 H (BEAKER) (test code = 652) CALCIUM (BEAKER) 9.2 mg/dL 8.4-10.2 (test code = 697) EGFR (BEAKER) (test 73 mL/min/1.73 ESTIMA OLGA GFR IS code = 1092) sq m NOT ACCURATE CREATININE CLEARANCE IN PREDICTING GLOMERULAR FILTRATION RATE . ESTIMATED GFR I S NOT APPLICABLE FOR DIALYSIS PATIEN TS. [id number] 11:12:00 Test Item Value Reference Range Interpretation Comments PHOSPHORUS (BEAKER) (test code = 3.8 mg/dL 2.3-4.7 604) POCT-GLUCOSE [id number] 10:49:00 Test Item Value Reference Range Interpretation Comments POC-GLUCOSE METER 172 mg/dL 70-[address] [facility] 67 (BEAKER) (test code = JOHANNY James [place] 1538) [address] KETONE, [id number] 10:37:00 Test Item Value Reference Range Interpretation Comments KETONES, BLOOD (BEAKER) (test code 4.2 mmol/L <0.4 H = 1103) HEMOGLOBIN [id number] 10:29:00 Test Item Value Reference Range Interpretation Comments HEMOGLOBIN A1C (BEAKER) (test code = 15.3 % 4.3-6.1 H 368) BLOOD GAS, [id number] 10:23:00 Test Item Value Reference Range Interpretation Comments PH VENOUS (BEAKER) (test code = 7.46 7.32-7.42 H 701) PCO2 VENOUS (BEAKER) (test code = 29 mmHg 41-51 L 755) PO2 VENOUS (BEAKER) (test code = 35 mmHg 25-40 702) O2 SATURATION VENOUS (BEAKER) 71.4 % 40.0-70.0 H (test code = 703) HCO3 VENOUS (BEAKER) (test code = 20 mmol/L 21-29 L 705) BASE EXCESS VENOUS (BEAKER) (test -3.0 mmol/L -2.0-3.0 L code = 704) PATIENT TEMPERATURE (BEAKER) 37.0 C (test code = 1818) FIO2 (BEAKER) (test code = 1819) 21.0 % POCT-GLUCOSE [id number] 10:02:00 Test Item Value Reference Range Interpretation Comments POC-GLUCOSE METER 145 mg/dL 70-110 H TESTED AT [place] [address] (BEAKER) (test code = JOHANNY James [place] 1538) [address] POCT-GLUCOSE [id number] 09:04:00 Test Item Value Reference Range Interpretation Comments POC-GLUCOSE METER 168 mg/dL 70-110 H TESTED AT [place] [id number] (BEAKER) (test code = [facility] Erika [place] 1538) [address] POCT-GLUCOSE [id number] 07:47:00 Test Item Value Reference Range Interpretation Comments POC-GLUCOSE METER 187 mg/dL 70-110 H TESTED AT [place] [address] (BEAKER) (test code = [facility] Erika [place] 1538) [address] BLOOD GAS, [id number] 07:14:00 Test Item Value Reference Range Interpretation Comments PH VENOUS (BEAKER) (test code = 7.44 7.32-7.42 H 701) PCO2 VENOUS (BEAKER) (test code = 27 mmHg 41-51 L 755) PO2 VENOUS (BEAKER) (test code = 30 mmHg 25-40 702) O2 SATURATION VENOUS (BEAKER) 60.9 % 40.0-70.0 (test code = 703) HCO3 VENOUS (BEAKER) (test code = 18 mmol/L 21-29 L 705) BASE EXCESS VENOUS (BEAKER) (test -4.6 mmol/L -2.0-3.0 L code = 704) PATIENT TEMPERATURE (BEAKER) 37.0 C (test code = 1818) FIO2 (BEAKER) (test code = 1819) 21.0 % BASIC METABOLIC [id number] 07:13:00 Test Item Value Reference Range Interpretation Comments SODIUM (BEAKER) 157 meq/L 136-145 H (test code = 381) POTASSIUM (BEAKER) 3.2 meq/L 3.5-5.1 L (test code = 379) CHLORIDE (BEAKER) 126 meq/L 98-107 H (test code = 382) CO2 (BEAKER) (test 17 meq/L 22-29 L code = 355) BLOOD UREA NITROGEN 11 mg/dL 7-21 (BEAKER) (test code = 354) CREATININE (BEAKER) 1.12 mg/dL 0.57-1.25 (test code = 358) GLUCOSE RANDOM 180 mg/dL 70-105 H (BEAKER) (test code = 652) CALCIUM (BEAKER) 9.1 mg/dL 8.4-10.2 (test code = 697) EGFR (BEAKER) (test 60 mL/min/1.73 ESTIMA OLGA GFR IS code = 1092) sq m NOT ACCURATE CREATININE CLEARANCE IN PREDICTING GLOMERULAR FILTRATION RATE . ESTIMATED GFR I S NOT APPLICABLE FOR DIALYSIS PATIEN TS. [id number] 07:11:00 Test Item Value Reference Range Interpretation Comments MAGNESIUM (BEAKER) (test code = 2.0 mg/dL 1.6-2.6 627) POCT-GLUCOSE [id number] 07:09:00 Test Item Value Reference Range Interpretation Comments POC-GLUCOSE METER 183 mg/dL 70-[address] [facility] 6720 (BEAKER) (test code = JOHANNY James [place] 1538) [address] POCT-GLUCOSE [id number] 06:19:00 Test Item Value Reference Range Interpretation Comments POC-GLUCOSE METER 185 mg/dL 70-110 H TESTED AT [place] [address] (BEAKER) (test code = JOHANNY James [place] 1538) [address] POCT-GLUCOSE [id number] 05:05:00 Test Item Value Reference Range Interpretation Comments POC-GLUCOSE METER 223 mg/dL 70-110 H TESTED AT [place] [address] (BEAKER) (test code = JOHANNY James [facility] 1538) [address] POCT-GLUCOSE [id number] 04:17:00 Test Item Value Reference Range Interpretation Comments POC-GLUCOSE METER 235 mg/dL 70-110 H TESTED AT [place] [address] (BEAKER) (test code = JOHANNY James [facility] 1538) [address] [id number] 04:07:00 Test Item Value Reference Range Interpretation Comments PROCALCITONIN (BEAKER) (test code 6.19 ng/mL <0.05 H = 3036) SEPSIS RISK (ng/mL)Low: 0.05-0.50Intermediate: 0.51-2.00High: >=[id number] 04:03:00 Test Item Value Reference Range Interpretation Comments PHOSPHORUS (BEAKER) (test code = 1.4 mg/dL 2.3-4.7 LL 604) BASIC METABOLIC [id number] 04:00:00 Test Item Value Reference Range Interpretation Comments SODIUM (BEAKER) 159 meq/L 136-145 H (test code = 381) POTASSIUM (BEAKER) 3.0 meq/L 3.5-5.1 L (test code = 379) CHLORIDE (BEAKER) 129 meq/L 98-107 H (test code = 382) CO2 (BEAKER) (test 15 meq/L 22-29 L code = 355) BLOOD UREA NITROGEN 11 mg/dL 7-21 (BEAKER) (test code = 354) CREATININE (BEAKER) 1.19 mg/dL 0.57-1.25 (test code = 358) GLUCOSE RANDOM 255 mg/dL 70-105 H (BEAKER) (test code = 652) CALCIUM (BEAKER) 9.0 mg/dL 8.4-10.2 (test code = 697) EGFR (BEAKER) (test 56 mL/min/1.73 ESTIMA OLGA GFR IS code = 1092) sq m NOT ACCURATE CREATININE CLEARANCE IN PREDICTING GLOMERULAR FILTRATION RATE . ESTIMATED GFR I S NOT APPLICABLE FOR DIALYSIS PATIEN TS. BASIC METABOLIC [id number] 04:00:00 Test Item Value Reference Range Interpretation Comments SODIUM (BEAKER) 158 meq/L 136-145 H (test code = 381) POTASSIUM (BEAKER) 3.1 meq/L 3.5-5.1 L (test code = 379) CHLORIDE (BEAKER) 129 meq/L 98-107 H (test code = 382) CO2 (BEAKER) (test 14 meq/L 22-29 L code = 355) BLOOD UREA NITROGEN 11 mg/dL 7-21 (BEAKER) (test code = 354) CREATININE (BEAKER) 1.21 mg/dL 0.57-1.25 (test code = 358) GLUCOSE RANDOM 258 mg/dL 70-105 H (BEAKER) (test code = 652) CALCIUM (BEAKER) 8.9 mg/dL 8.4-10.2 (test code = 697) EGFR (BEAKER) (test 55 mL/min/1.73 ESTIMA OLGA GFR IS code = 1092) sq m NOT ACCURATE CREATININE CLEARANCE IN PREDICTING GLOMERULAR FILTRATION RATE . ESTIMATED GFR I S NOT APPLICABLE FOR DIALYSIS PATIEN TS. BLOOD GAS, [id number] 03:52:00 Test Item Value Reference Range Interpretation Comments PH VENOUS (BEAKER) (test code = 7.44 7.32-7.42 H 701) PCO2 VENOUS (BEAKER) (test code = 25 mmHg 41-51 L 755) PO2 VENOUS (BEAKER) (test code = 38 mmHg 25-40 702) O2 SATURATION VENOUS (BEAKER) 75.9 % 40.0-70.0 H (test code = 703) HCO3 VENOUS (BEAKER) (test code = 16 mmol/L 21-29 L 705) BASE EXCESS VENOUS (BEAKER) (test -6.0 mmol/L -2.0-3.0 L code = 704) PATIENT TEMPERATURE (BEAKER) 37.0 C (test code = 1818) FIO2 (BEAKER) (test code = 1819) 21.0 % B-TYPE NATRIURETIC FACTOR (BNP)2018-08-19 03:49:00 Test Item Value Reference Range Interpretation Comments B-TYPE NATRIURETIC PEPTIDE (BEAKER) 70 pg/mL 0-100 (test code = 700) [id number] 03:43:00 Test Item Value Reference Range Interpretation Comments MAGNESIUM (BEAKER) (test code = 2.1 mg/dL 1.6-2.6 627) [id number] 03:43:00 Test Item Value Reference Range Interpretation Comments AMYLASE (BEAKER) (test code = 349) 566 U/L 25-125 H [id number] 03:43:00 Test Item Value Reference Range Interpretation Comments LIPASE (BEAKER) (test code = 749) 124 U/L 8-78 H C-REACTIVE [id number] 03:43:00 Test Item Value Reference Range Interpretation Comments C-REACTIVE PROTEIN (BEAKER) (test 5.56 mg/dL 0.00-0.50 H code = 676) KETONE, [id number] 03:23:00 Test Item Value Reference Range Interpretation Comments KETONES, BLOOD (BEAKER) (test code 4.8 mmol/L <0.4 H = 1103) CBC (HEMOGRAM ONLY)2018-08-19 03:22:00 Test Item Value Reference Range Interpretation Comments WHITE BLOOD CELL COUNT (BEAKER) 21.9 K/ L 3.5-10.5 H (test code = 775) RED BLOOD CELL COUNT (BEAKER) 4.46 M/ L 3.93-5.22 (test code = 761) HEMOGLOBIN (BEAKER) (test code = 13.7 GM/DL 11.2-15.7 410) HEMATOCRIT (BEAKER) (test code = 37.7 % 34.1-44.9 411) MEAN CORPUSCULAR VOLUME (BEAKER) 84.5 fL 79.4-94.8 (test code = 753) MEAN CORPUSCULAR HEMOGLOBIN 30.7 pg 25.6-32.2 (BEAKER) (test code = 751) MEAN CORPUSCULAR HEMOGLOBIN CONC 36.3 GM/DL 32.2-35.5 H (BEAKER) (test code = 752) RED CELL DISTRIBUTION WIDTH 13.2 % 11.7-14.4 (BEAKER) (test code = 412) PLATELET COUNT (BEAKER) (test 329 K/CU MM 150-450 code = 756) MEAN PLATELET VOLUME (BEAKER) 10.4 fL 9.4-12.3 (test code = 754) NUCLEATED RED BLOOD CELLS 0 /100 WBC 0-0 (BEAKER) (test code = 413) POCT-GLUCOSE [id number] 03:17:00 Test Item Value Reference Range Interpretation Comments POC-GLUCOSE METER 251 mg/dL 70-110 H TESTED AT [place] [address] ([facility]) (test code = [place] [address]) [id number] OSMOLALITY, [id number] 02:24:00 Test Item Value Reference Range Interpretation Comments OSMOLALITY URINE (BEAKER) (test 599 mOsm/kg 40-1400 code = 614) POCT-GLUCOSE [id number] 02:16:00 Test Item Value Reference Range Interpretation Comments POC-GLUCOSE METER 288 mg/dL 70-110 H TESTED AT [place] [address] ([facility]) (test code = J[place]AN[place] 15[address]) [id number] KETONE, [id number] 01:49:00 Test Item Value Reference Range Interpretation Comments KETONES, BLOOD (BEAKER) (test code 6.1 mmol/L <0.4 H = 1103) POCT-GLUCOSE [id number] 01:13:00 Test Item Value Reference Range Interpretation Comments POC-GLUCOSE METER 254 mg/dL 70-110 H TESTED AT [place] [address] ([facility]) (test code = J[place]AN[place] James [place] 15[address]) [id number] BLOOD GAS, [id number] 01:10:00 Test Item Value Reference Range Interpretation Comments PH VENOUS (BEAKER) (test code = 7.41 7.32-7.42 701) PCO2 VENOUS (BEAKER) (test code 17 mmHg 41-51 LL = 755) PO2 VENOUS (BEAKER) (test code = 36 mmHg 25-40 702) O2 SATURATION VENOUS (BEAKER) 71.4 % 40.0-70.0 H (test code = 703) HCO3 VENOUS (BEAKER) (test code 11 mmol/L 21-29 L = 705) BASE EXCESS VENOUS (BEAKER) -11.0 mmol/L -2.0-3.0 L (test code = 704) PATIENT TEMPERATURE (BEAKER) 37.0 C (test code = 1818) FIO2 (BEAKER) (test code = 1819) 21.0 % POCT-GLUCOSE [id number] 00:05:00 Test Item Value Reference Range Interpretation Comments POC-GLUCOSE METER 288 mg/dL 70-[address] [facility] (BEAKER) (test code = [place] [address]) [id number] BASIC METABOLIC [id number] 23:16:00 Test Item Value Reference Range Interpretation Comments SODIUM (BEAKER) 159 meq/L 136-145 H (test code = 381) POTASSIUM (BEAKER) 3.3 meq/L 3.5-5.1 L (test code = 379) CHLORIDE (BEAKER) 129 meq/L 98-107 H (test code = 382) CO2 (BEAKER) (test 8 meq/L 22-29 LL code = 355) BLOOD UREA NITROGEN 12 mg/dL 7-21 (BEAKER) (test code = 354) CREATININE (BEAKER) 1.29 mg/dL 0.57-1.25 H (test code = 358) GLUCOSE RANDOM 287 mg/dL 70-105 H (BEAKER) (test code = 652) CALCIUM (BEAKER) 8.4 mg/dL 8.4-10.2 (test code = 697) EGFR (BEAKER) (test 51 mL/min/1.73 ESTIMA OLGA GFR IS code = 1092) sq m NOT ACCURATE CREATININE CLEARANCE IN PREDICTING GLOMERULAR FILTRATION RATE . ESTIMATED GFR I S NOT APPLICABLE FOR DIALYSIS PATIEN TS. OSMOLALITY, [id number] 23:03:00 Test Item Value Reference Range Interpretation Comments OSMOLALITY, SERUM (BEAKER) (test 342 mOsm/kg 275-295 H code = 615) [id number] 23:02:00 Test Item Value Reference Range Interpretation Comments PHOSPHORUS (BEAKER) (test code = 1.1 mg/dL 2.3-4.7 LL 604) [id number] 23:00:00 Test Item Value Reference Range Interpretation Comments MAGNESIUM (BEAKER) (test code = 2.1 mg/dL 1.6-2.6 627) CALCIUM, [id number] 22:47:00 Test Item Value Reference Range Interpretation Comments CALCIUM IONIZED (BEAKER) (test 1.20 mmol/L 1.12-1.27 code = 698) PH, BLOOD (BEAKER) (test code = 7.40 1810) CBC (HEMOGRAM ONLY)2018-08-18 22:47:00 Test Item Value Reference Range Interpretation Comments WHITE BLOOD CELL COUNT (BEAKER) 26.9 K/ L 3.5-10.5 H (test code = 775) RED BLOOD CELL COUNT (BEAKER) 4.63 M/ L 3.93-5.22 (test code = 761) HEMOGLOBIN (BEAKER) (test code = 14.0 GM/DL 11.2-15.7 410) HEMATOCRIT (BEAKER) (test code = 39.1 % 34.1-44.9 411) MEAN CORPUSCULAR VOLUME (BEAKER) 84.4 fL 79.4-94.8 (test code = 753) MEAN CORPUSCULAR HEMOGLOBIN 30.2 pg 25.6-32.2 (BEAKER) (test code = 751) MEAN CORPUSCULAR HEMOGLOBIN CONC 35.8 GM/DL 32.2-35.5 H (BEAKER) (test code = 752) RED CELL DISTRIBUTION WIDTH 13.2 % 11.7-14.4 (BEAKER) (test code = 412) PLATELET COUNT (BEAKER) (test 348 K/CU MM 150-450 code = 756) MEAN PLATELET VOLUME (BEAKER) 10.4 fL 9.4-12.3 (test code = 754) NUCLEATED RED BLOOD CELLS 0 /100 WBC 0-0 (BEAKER) (test code = 413) BLOOD GAS, [id number] 22:46:00 Test Item Value Reference Range Interpretation Comments PH VENOUS (BEAKER) (test code = 7.40 7.32-7.42 701) PCO2 VENOUS (BEAKER) (test code 15 mmHg 41-51 LL = 755) PO2 VENOUS (BEAKER) (test code = 33 mmHg 25-40 702) O2 SATURATION VENOUS (BEAKER) 65.4 % 40.0-70.0 (test code = 703) HCO3 VENOUS (BEAKER) (test code 9 mmol/L 21-29 LL = 705) BASE EXCESS VENOUS (BEAKER) -12.5 mmol/L -2.0-3.0 L (test code = 704) PATIENT TEMPERATURE (BEAKER) 37.0 C (test code = 1818) FIO2 (BEAKER) (test code = 1819) 21.0 % KETONE, [id number] 22:46:00 Test Item Value Reference Range Interpretation Comments KETONES, BLOOD (BEAKER) (test code 5.6 mmol/L <0.4 H = 1103) RAD, CHEST, 1 VIEW, NON [id number] 22:44:00Reason for exam:->central line Should this be [...] pneumothorax.Heart and mediastinum: Unremarkable. Additional findings: None. Sig freeman: JR Chela, Geo COLEMANepalexander Verified Date/Time: 08/18/2018 22:44:52 Reading Location: [address] Reading Room POCT-GLUCOSE [id number] 22:34:00 Test Item Value Reference Range Interpretation Comments POC-GLUCOSE METER 259 mg/dL 70-[address] [facility] 6720 (BEAKER) (test code = [facility] Erika [facility] 1538) [id number] CHLORIDE, RANDOM [id number] 22:28:00 Test Item Value Reference Range Interpretation Comments CHLORIDE URINE (BEAKER) (test code = 88 meq/L 682) Reference Range: No NormalsCREATININE, RANDOM [id number] 22:28:00 Test Item Value Reference Range Interpretation Comments CREATININE URINE (BEAKER) (test 12.5 mg/dL code = 375) Reference Range: No NormalsSODIUM, RANDOM [id number] 22:28:00 Test Item Value Reference Range Interpretation Comments SODIUM URINE (BEAKER) (test code = 143 meq/L 243) Reference Range: No NormalsUREA NITROGEN, RANDOM [id number] 22:28:00 Test Item Value Reference Range Interpretation Comments UREA NITROGEN URINE (BEAKER) (test 154 mg/dL code = 538) Reference Range: No NormalsOSMOLALITY, [id number] 21:53:00 Test Item Value Reference Range Interpretation Comments OSMOLALITY URINE (BEAKER) (test 546 mOsm/kg 40-1400 code = 614) BASIC METABOLIC [id number] 21:07:00 Test Item Value Reference Range Interpretation Comments SODIUM (BEAKER) 160 meq/L 136-145 HH (test code = 381) POTASSIUM (BEAKER) 2.9 meq/L 3.5-5.1 L Specimen slightly (test code = 379) hemolyzed CHLORIDE (BEAKER) 126 meq/L 98-107 H (test code = 382) CO2 (BEAKER) (test 5 meq/L 22-29 LL code = 355) BLOOD UREA NITROGEN 12 mg/dL 7-21 (BEAKER) (test code = 354) CREATININE (BEAKER) 1.40 mg/dL 0.57-1.25 H Specimen slightly (test code = 358) hemolyzed GLUCOSE RANDOM 365 mg/dL 70-105 H (BEAKER) (test code = 652) CALCIUM (BEAKER) 8.4 mg/dL 8.4-10.2 (test code = 697) EGFR (BEAKER) (test 46 mL/min/1.73 ESTIMA OLGA GFR IS code = 1092) sq m NOT ACCURATE CREATININE CLEARANCE IN PREDICTING GLOMERULAR FILTRATION RATE . ESTIMATED GFR I S NOT APPLICABLE FOR DIALYSIS PATIEN TS. [id number] 21:07:00 Test Item Value Reference Range Interpretation Comments PHOSPHORUS (BEAKER) < mg/dL 2.3-4.7 LL Specimen slightly (test code = 604) hemolyzed POCT-GLUCOSE [id number] 21:06:00 Test Item Value Reference Range Interpretation Comments POC-GLUCOSE METER 381 mg/dL 70-[address] [facility] 6720 (BEAKER) (test code = [place] 1538) [id number] POCT-GLUCOSE [id number] 21:06:00 Test Item Value Reference Range Interpretation Comments POC-GLUCOSE METER 437 mg/dL 70-[address] [facility] 6720 (BEAKER) (test code = [place] 1530) [address] [id number] 21:05:00 Test Item Value Reference Range Interpretation Comments LIPASE (BEAKER) (test code = 749) 138 U/L 8-78 H [id number] 21:05:00 Test Item Value Reference Range Interpretation Comments AMYLASE (BEAKER) (test code = 349) 669 U/L 25-125 H [id number] 21:04:00 Test Item Value Reference Range Interpretation Comments PROTIME (BEAKER) (test code = 15.8 seconds 11.7-14.7 H 759) INR (BEAKER) (test code = 370) 1.3 <=5.9 PARTIAL THROMBOPLASTIN TIME 21.3 seconds 22.5-36.0 L (BEAKER) (test code = 760) RECOMMENDED COUMADIN/WARFARIN INR THERAPY RANGESSTANDARD DOSE: 2.0 - 3.0 Includes: PROPHYLAXIS forvenous thrombosis, systemic embolization; TREATMENT for venous thrombosis and/or pulmonary embolus.HIGH RISK: Target INR is 2.5-3.5 for patients with mechanical heart valves.[id number] 21:04:00 Test Item Value Reference Range Interpretation Comments MAGNESIUM (BEAKER) 2.2 mg/dL 1.6-2.6 Specimen slightly (test code = 627) hemolyzed BLOOD GAS, [id number] 21:00:00 Test Item Value Reference Range Interpretation Comments PH ARTERIAL (BEAKER) (test code 7.42 7.35-7.45 = 383) PCO2 ARTERIAL (BEAKER) (test 8 mmHg 35-45 LL code = 384) PO2 ARTERIAL (BEAKER) (test code 225 mmHg 80-90 H = 385) O2 SATURATION ARTERIAL (BEAKER) 99.5 % 96.0-97.0 H (test code = 386) HCO3 ARTERIAL (BEAKER) (test 5 mmol/L 21-29 LL code = 388) BASE EXCESS ARTERIAL (BEAKER) -15.2 mmol/L -2.0-3.0 L (test code = 387) PATIENT TEMPERATURE (BEAKER) 37.0 C (test code = 1818) FIO2 (BEAKER) (test code = 1819) 21.0 % HEMOGLOBIN [id number] 21:00:00 Test Item Value Reference Range Interpretation Comments HEMOGLOBIN A1C (MARTÍN) (test code = 15.7 % 4.3-6.1 H 368) CT BRAIN WITHOUT IV CONTRAST - [id number] 20:04:00Reason for exam:- >r/o bleedFINAL REPORT CT head without contrast 08/18/2018 [...] visualized paranasal sinuses and tympanomastoid cavities are well- aerated, save for retention cysts in the left greater than right maxillary sinuses. The skull is intact. IMPRESSION: No intracranial hemorrhage or mass effect. Signed: Arpit Smith MDReport Verified Date/Time: 08/18/2018 20:04:50 Reading Location: [facility] Radiology Reading Room POCT- GLUCOSE [id number] 19:21:00 Test Item Value Reference Range Interpretation Comments POC-GLUCOSE METER 425 mg/dL 70-[address] [facility] 6720 (BEBANNER) (test code = CANDIDAMIKAEL James [facility] 1538) [address] [id number] 18:52:00 Test Item Value Reference Range Interpretation Comments PHOSPHORUS (BEAKER) (test code = 604) < mg/dL 2.3-4.7 LL If last glucose was less than 500, may do bedside glucose instead of serum glucose.RAPID DRUG SCREEN, [id number] 18:52:00 Test Item Value Reference Range Interpretation Comments BARBITURATE URINE (BEAKER) (test Negative Negative code = 725) BENZODIAZEPINE SCREEN URINE (BEAKER) Negative Negative (test code = 726) COCAINE (METAB.) SCREEN (BEAKER) Negative Negative (test code = 1164) METHADONE SCREEN (BEAKER) (test code Negative Negative = 1436) OPIATE SCREEN URINE (BEAKER) (test Negative Negative code = 734) CANNABINOID SCREEN URINE (BEAKER) Negative Negative (test code = 727) AMPH/METHAMPH SCREEN (BEAKER) (test Negative Negative code = 1438) PHENCYCLIDINE SCREEN URINE (BEAKER) Negative Negative (test code = 608) OXYCODONE SCREEN URINE (BEAKER) Negative Negative (test code = 2761) DRUG CUTOFF CONC.Cocaine 300 ng/mL Cannabinoid 50 ng/mL Benzodiazepine 200 ng/mLBarbiturate 200 ng/mLPhencyclidine 25 ng/mLOpiate 300 ng/mLMethadone 300 ng/mLAmphetamine/ 1000 ng/mL MethamphetamineOxycodone 300 ng/mLThis assay provides an unconfirmed qualitative test result for the clinical management of patients in emergency situations. Chain of custody not maintained. Some esjj-nru-hzjposq medications, as well as adulterants, may cause inaccurate results. Clinical correlation should be applied. A more comprehensive drug screen or confirmation of a detected drug may be performed upon request. BASIC METABOLIC [id number] 18:51:00 Test Item Value Reference Range Interpretation Comments SODIUM (BEAKER) 155 meq/L 136-145 H (test code = 381) POTASSIUM (BEAKER) 3.5 meq/L 3.5-5.1 (test code = 379) CHLORIDE (BEAKER) 124 meq/L 98-107 H (test code = 382) CO2 (BEAKER) (test 5 meq/L 22-29 LL code = 355) BLOOD UREA NITROGEN 13 mg/dL 7-21 (BEAKER) (test code = 354) CREATININE (BEAKER) 1.59 mg/dL 0.57-1.25 H (test code = 358) GLUCOSE RANDOM 559 mg/dL 70-105 HH (BEAKER) (test code = 652) CALCIUM (BEAKER) 8.5 mg/dL 8.4-10.2 (test code = 697) EGFR (BEAKER) (test 40 mL/min/1.73 ESTIMA OLGA GFR IS code = 1092) sq m NOT ACCURATE CREATININE CLEARANCE IN PREDICTING GLOMERULAR FILTRATION RATE . ESTIMATED GFR I S NOT APPLICABLE FOR DIALYSIS PATIEN TS. If last glucose was less than 500, may do bedside glucose instead of serum glucose.[id number] 18:48:00 Test Item Value Reference Range Interpretation Comments MAGNESIUM (BEAKER) (test code = 2.1 mg/dL 1.6-2.6 627) If last glucose was less than 500, may do bedside glucose instead of serum glucose.KETONE, [id number] 18:45:00 Test Item Value Reference Range Interpretation Comments KETONES, BLOOD (BEAKER) (test code 5.2 mmol/L <0.4 H = 1103) [id number] 18:43:00 Test Item Value Reference Range Interpretation Comments PROTIME (BEAKER) (test code = 15.8 seconds 11.7-14.7 H 759) INR (BEAKER) (test code = 370) 1.3 <=5.9 PARTIAL THROMBOPLASTIN TIME 22.2 seconds 22.5-36.0 L (BEAKER) (test code = 760) RECOMMENDED COUMADIN/WARFARIN INR THERAPY RANGESSTANDARD DOSE: 2.0 - 3.0 Includes: PROPHYLAXIS forvenous thrombosis, systemic embolization; TREATMENT for venous thrombosis and/or pulmonary embolus.HIGH RISK: Target INR is 2.5-3.5 for patients with mechanical heart valves.URINALYSIS W/ REFLEX URINE CULTURE 2018-08-18 18:41:00 Test Item Value Reference Range Interpretation Comments COLOR (BEAKER) (test code = 470) Colorless CLARITY (BEAKER) (test code = Clear 469) SPECIFIC GRAVITY UA (BEAKER) 1.009 1.001-1.035 (test code = 468) PH UA (BEAKER) (test code = 467) 5.5 5.0-8.0 PROTEIN UA (BEAKER) (test code = Negative Negative 464) GLUCOSE UA (BEAKER) (test code = >1000 mg/dL Negative A 365) KETONES UA (BEAKER) (test code = >150 mg/dL Negative A 371) BILIRUBIN UA (BEAKER) (test code Negative Negative = 462) BLOOD UA (BEAKER) (test code = Small Negative A 461) NITRITE UA (BEAKER) (test code = Negative Negative 465) LEUKOCYTE ESTERASE UA (BEAKER) Negative Negative (test code = 466) UROBILINOGEN UA (BEAKER) (test 0.2 mg/dL 0.2-1.0 code = 463) RBC UA (BEAKER) (test code = 519) 7 /HPF WBC UA (BEAKER) (test code = 520) 12 /HPF BACTERIA (BEAKER) (test code = Rare 517) MUCUS (BEAKER) (test code = 1574) Few SQUAMOUS EPITHELIAL (BEAKER) 13 /HPF (test code = 516) HYALINE CASTS (BEAKER) (test code 1 /LPF = 514) SOURCE(BEAKER) (test code = 2795) SCREEN, [id number] 18:35:00 Test Item Value Reference Range Interpretation Comments TEST URINE (BEAKER) (test Negative code = 583) BLOOD GAS, [id number] 18:32:00 Test Item Value Reference Range Interpretation Comments PH ARTERIAL (BEAKER) (test code 7.28 7.35-7.45 L = 383) PCO2 ARTERIAL (BEAKER) (test 11 mmHg 35-45 LL code = 384) PO2 ARTERIAL (BEAKER) (test code 148 mmHg 80-90 H = 385) O2 SATURATION ARTERIAL (BEAKER) 98.8 % 96.0-97.0 H (test code = 386) HCO3 ARTERIAL (BEAKER) (test 5 mmol/L 21-29 LL code = 388) BASE EXCESS ARTERIAL (BEAKER) -19.1 mmol/L -2.0-3.0 L (test code = 387) PATIENT TEMPERATURE (BEAKER) 35.5 C (test code = 1818) FIO2 (BEAKER) (test code = 1819) 21.0 % [id number] 18:16:00 Test Item Value Reference Range Interpretation Comments FIBRINOGEN LEVEL 331 mg/dl 225-434 Sample clot olga, (BEAKER) (test code = notifi ed RN badge 658) #[id number] for recollect. [id number] 18:16:00 Test Item Value Reference Range Interpretation Comments D-DIMER QUANTITATIVE 0.64 MG/L FEU <0.50 H Sample is clotted, (BEAKER) (test code = notifi ed RN badge 671) #[id number] for recollect.This is a corrected result. Previou s result was 0.64 MG/L FEU on 08/18/2018 at 1 733 CDT Intended Use: The D-Dimer Assay can be used to aid in the diagnosis of Deep Vein Thrombosis (DVT) and Pulmonary Embolism Disease (PED).In patients with low pre- test probability, various studies concerning STA Liatest D-dimer test have reported that with a cutoff value of 0.50 MG/L FEU, the Negative Predictive Value (NPV) regarding the exclusion of thrombosis is within 95-100% range.POCT- GLUCOSE [id number] 18:05:00 Test Item Value Reference Range Interpretation Comments POC-GLUCOSE METER > mg/dL 70-110 HH OUTSIDE AL ASURING (BEAKER) (test code RANGETES OLGA AT [facility] 6720 = 1538) [facility] [address] [id number] 18:01:00 Test Item Value Reference Range Interpretation Comments PROCALCITONIN (BEAKER) (test code 3.19 ng/mL <0.05 H = 3036) SEPSIS RISK (ng/mL)Low: 0.05-0.50Intermediate: 0.51-2.00High: >=2.01CREATINE KINASE (CK), TOTAL AND [id number] 17:50:00 Test Item Value Reference Range Interpretation Comments CREATINE KINASE TOTAL (BEAKER) 54 U/L 29-200 (test code = 380) CREATINE KINASE-MB (BEAKER) (test 1.6 ng/mL 0.0-6.6 code = 750) CREATINE KINASE-MB INDEX (BEAKER) 3.0 % (test code = 395) CK-MB Reference Range:<6.7 Normal6.7-10.0 Borderline>10.0 AbnormalTROPONIN [id number] 17:50:00 Test Item Value Reference Range Interpretation Comments TROPONIN I (BEAKER) (test code = 397) < ng/mL 0.00-0.03 Troponin I (TnI) levels [...] disease, and persistent tachyarrhythmia.B-TYPE NATRIURETIC FACTOR (BNP) 2018-08-18 17:49:00 Test Item Value Reference Range Interpretation Comments B-TYPE NATRIURETIC PEPTIDE (BEAKER) 47 pg/mL 0-100 (test code = 700) COMPREHENSIVE METABOLIC [id number] 17:48:00 Test Item Value Reference Range Interpretation Comments TOTAL PROTEIN 5.8 gm/dL 6.0-8.3 L (BEAKER) (test code = 770) ALBUMIN (BEAKER) 3.3 g/dL 3.5-5.0 L (test code = 1145) ALKALINE PHOSPHATASE 147 U/L 40-150 (BEAKER) (test code = 346) BILIRUBIN TOTAL 0.3 mg/dL 0.2-1.2 (BEAKER) (test code = 377) SODIUM (BEAKER) (test 150 meq/L 136-145 H code = 381) POTASSIUM (BEAKER) 2.5 meq/L 3.5-5.1 LL (test code = 379) CHLORIDE (BEAKER) 119 meq/L 98-107 H (test code = 382) CO2 (BEAKER) (test < meq/L 22-29 LL code = 355) BLOOD UREA NITROGEN 15 mg/dL 7-21 (BEAKER) (test code = 354) CREATININE (BEAKER) 1.67 mg/dL 0.57-1.25 H (test code = 358) GLUCOSE RANDOM 709 mg/dL 70-105 HH (BEAKER) (test code = 652) CALCIUM (BEAKER) 8.1 mg/dL 8.4-10.2 L (test code = 697) AST (SGOT) (BEAKER) 12 U/L 5-34 (test code = 353) ALT (SGPT) (BEAKER) 8 U/L 6-55 (test code = 347) EGFR (BEAKER) (test 38 mL/min/1.73 ESTIMA OLGA GFR IS code = 1092) sq m NOT ACCURATE CREATININE CLEARANCE IN PREDICTING GLOMERULAR FILTRATION RATE . ESTIMATED GFR I S NOT APPLICABLE FOR DIALYSIS PATIEN TS. [id number] 17:47:00 Test Item Value Reference Range Interpretation Comments LIPASE (BEAKER) (test code = 749) 329 U/L 8-78 H [id number] 17:47:00 Test Item Value Reference Range Interpretation Comments AMYLASE (BEAKER) (test code = 349) 563 U/L 25-125 H LACTATE DEHYDROGENASE (LDH)2018-08-18 17:47:00 Test Item Value Reference Range Interpretation Comments LACTATE DEHYDROGENASE (BEAKER) (test 255 U/L 125-220 H code = 635) C-REACTIVE [id number] 17:47:00 Test Item Value Reference Range Interpretation Comments C-REACTIVE PROTEIN (BEAKER) (test 1.35 mg/dL 0.00-0.50 H code = 676) LACTIC ACID, VENOUS, WHOLE [id number] 17:41:00 Test Item Value Reference Range Interpretation Comments LACTATE BLOOD VENOUS 2.0 mmol/L 0.5-2.2 Specime n markedly (2) (BEAKER) (test hemolyzed code = 2872) Effective 03/06/2016: Units/Reference Range ChangeNew: 0.5-2.2 mmol/L Previous: 5-20 mg/dLPOCT-LACTIC ACID, [id number] 17:13:00 Test Item Value Reference Range Interpretation Comments POC-LACTIC ACID, 1.9 mmol/L 0.4-1.3 H TESTED AT [facility] 6720 ARTERIAL (BEAKER) [facility] (test code = 2804) [address] POCT-BLOOD GASES, [id number] 17:13:00 Test Item Value Reference Range Interpretation Comments TEMP, CELSIUS-POC 37.0 (BEAKER) (test code = 1834) FIO2-POC (BEAKER) TESTED AT [facility] 6720 (test code = 1835) [facility] [address] PH, ARTERIAL-POC 7.069 7.350-7.450 LL (BEAKER) (test code = 1836) PCO2, ARTERIAL-POC 10.5 mm Hg 35.0-45.0 LL (BEAKER) (test code = 1837) PO2, ARTERIAL-POC 144.0 mm Hg 80.0-90.0 H (BEAKER) (test code = 1838) SO2, ARTERIAL-POC 98.0 % 96.0-97.0 H (BEAKER) (test code = 1839) HCO3, ARTERIAL-POC 3.0 meq/L 21.0-29.0 LL (BEAKER) (test code = 1840) BASE EXCESS, -27.0 meq/L -2.0-3.0 L ARTERIAL-POC (BEAKER) (test code = 1841) [id number] 17:13:00 Test Item Value Reference Range Interpretation Comments POC-SODIUM ([facility]) 150 meq/L 135-148 H TESTED [place] [address] (test code = 1542) [facility] [address] [id number] 17:13:00 Test Item Value Reference Range Interpretation Comments POC-POTASSIUM 2.4 meq/L 3.6-5.5 LL TESTED AT [place] [address] ([facility]) (test code [place] [id number] = 1540) [id number] 17:13:00 Test Item Value Reference Range Interpretation Comments POC-GLUCOSE ([facility]) 685 mg/dL 70-110 HH TESTED AT [place] [address] (test code = 1855) [facility] [address] POCT-CALCIUM [id number] 17:13:00 Test Item Value Reference Range Interpretation Comments POC-CALCIUM IONIZED 1.24 mmol/L 1.12-1.27 TESTED A [place] [address] ([facility]) (test code = [facility] 1536) [address] [id number] 17:13:00 Test Item Value Reference Range Interpretation Comments POC-HEMATOCRIT 40 % 36-45 TESTED AT [place] [address] ([facility]) (test code = [facility] [address]57) [id number] 17:13:00 Test Item Value Reference Range Interpretation Comments POC-HEMOGLOBIN 13.6 g/dL 12.0-15.0 TESTED AT [place] [address] ([facility]) (test code [facility] = 1856) [id number] AT [address] [address] POCT-GLUCOSE [id number] 17:07:00 Test Item Value Reference Range Interpretation Comments POC-GLUCOSE METER > mg/dL 70-110 HH OUTSIDE AL ASURING ([facility]) (test code RANGETES OLGA AT [place] [address] = 1538) [facility] [address]
[2021-04-09 00:42] LABS: Absolute Lymphocytes (CBC) 1.2 K/uL (0.7-4.9); Basophils % 0.1 % (0-1.3); Hematocrit 47.5 % (36.0-45.0); Lymphocytes % 6.3 % (15.3-44.8); MPV 8.9 fL (7.6-11.3); RBC Red Blood Cell Count 5.25 M/uL (3.86-4.86)
[2021-04-09] MEDS ORDERED: NA CHLORIDE 0.9% 1,000 ML ONE (00:59)
[2021-04-09] MEDS ORDERED: ONDANSETRON 4 MG/2 ML VIAL ONE ×2 (00:59→11:28)
[2021-04-09 01:18] LABS: ALT/SGPT 20 U/L (12-78); AST/SGOT 10 U/L (15-37); Albumin 4.2 g/dL (3.4-5.0); Alkaline Phosphatase 109 U/L (45-117); BUN Blood Urea Nitrogen 21 mg/dL (7-18); Bilirubin Direct < 0.1 mg/dL (0-0.2); Bilirubin Total 0.5 mg/dL (0.2-1.0); Lipase 116 U/L (73-393); Potassium 5.1 mmol/L (3.5-5.1); Protein, Total 8.3 g/dL (6.4-8.2); Sodium Level 137 mmol/L (136-145)
[2021-04-09 01:19] LABS: Bicarbonate 5 mmol/L (21-32); Glucose Level 407 mg/dL (74-106)
[2021-04-09 01:23] LABS: Urine Blood 2+ (Negative); Urine Glucose 2+ (Negative); Urine Protein 2+ (Negative); Urine Specific Gravity >=1.030 (1.005-1.030); Urine pH 5.5 (5.0-7.0)
[2021-04-09 01:23] LABS: Blood Morphology Comment NOT SEEN (NOT SEEN); Platelet Estimate ADEQ
[2021-04-09 01:38] LABS: Urine Specific Gravity/Preg >1.030 (1.005-1.030)
[2021-04-09 01:42] LABS: Barbiturates NEGATIVE (NEGATIVE); Benzodiazepines NEGATIVE (NEGATIVE); Cocaine NEGATIVE (NEGATIVE); METHAMPHETAM NEGATIVE (NEGATIVE); Methadone NEGATIVE (NEGATIVE); Opiates NEGATIVE (NEGATIVE); Phencyclidine NEGATIVE (NEGATIVE); THC Cannibis NEGATIVE (NEGATIVE)
[2021-04-09] MEDS ORDERED: INSULIN -REGULAR HUMAN 50 UNIT/0.5 ML ML ONE (02:00)
[2021-04-09] MEDS ORDERED: NA CHLORIDE 0.9% 100 ML ONE (02:01)
--- NOTE | 2021-04-09 02:27 | EDPHYS ---
Physician Documentation [facility] Name: Rosalie Parekh Age: 25 yrs Sex: Female : 1995 Arrival Date: 04/09/2021 Time: 00:07 Bed 8 Private MD: ED Physician Drake Baldwin HPI: 04/09 00:45 This 25 yrs old Female presents to ER via EMS with complaints of High Blood tw4 Sugar. 00:45 Onset: The symptoms/episode began/occurred today. Associated signs and symptoms: tw4 Pertinent positives:. Current symptoms: In the emergency department the patient's symptoms are unchanged from the initial presentation. Unable to obtain HPI due to. 00:46 Associated signs and symptoms: Pertinent positives: nausea, polydipsia, vomiting. The tw4 patient has experienced similar episodes in the past, several times. The patient has been recently been admitted at [facility], was discharged last month. 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 - Social history:: Smoking status: Patient reports the use of cigarette tobacco products, smokes one-half pack cigarettes per day. ROS: 00:45 Abdomen/GI: Positive for abdominal pain, nausea and vomiting, nausea, vomiting, and tw4 diarrhea, nausea, vomiting, Negative for diarrhea, constipation, abdominal cramps, abdominal distension, anorexia, dysphagia, hematemesis, black/tarry stool, rectal pain, rectal bleeding. 00:46 Constitutional: Negative for fever, chills, and weight loss, Eyes: Negative for injury, tw4 pain, redness, and discharge, Cardiovascular: Negative for chest pain, palpitations, and edema, Respiratory: Negative for shortness of breath, cough, wheezing, and pleuritic chest pain, Back: Negative for injury and pain, MS/Extremity: Negative for injury and deformity, Skin: Negative for injury, rash, and discoloration, Neuro: Negative for headache, weakness, numbness, tingling, and seizure. Exam: 00:50 Constitutional: This is a well developed, well nourished patient who is awake, alert, tw4 and in no acute distress. Head/Face: Normocephalic, atraumatic. Chest/axilla: Normal chest wall appearance and motion. Nontender with no deformity. No lesions are appreciated. Cardiovascular: Regular rate and rhythm with a normal S1 and S2. No gallops, murmurs, or rubs. Normal PMI, no JVD. No pulse deficits. Respiratory: Lungs have equal breath sounds bilaterally, clear to auscultation and percussion. No rales, rhonchi or wheezes noted. No increased work of breathing, no retractions or nasal flaring. Abdomen/GI: Soft, non-tender, with normal bowel sounds. No distension or tympany. No guarding or rebound. No evidence of tenderness throughout. Skin: Warm, dry with normal turgor. Normal color with no rashes, no lesions, and no evidence of cellulitis. MS/ Extremity: Pulses equal, no cyanosis. Neurovascular intact. Full, normal range of motion. Neuro: Awake and alert, GCS 15, oriented to person, place, time, and situation. Cranial nerves II-XII grossly intact. Motor strength 5/5 in all extremities. Sensory grossly intact. Cerebellar exam normal. Normal gait. Vital Signs: 00:15 BP 124 / 71; Pulse 120; Resp 26; Temp 97.4(O); Pulse Ox 100% on R/A; lp1 01:00 BP 112 / 70; Pulse 112; Resp 28; Pulse Ox 100% on R/A; lp1 02:00 BP 109 / 60; Pulse 115; Resp 26; Pulse Ox 100% on R/A; lp1 02:29 Weight 74.84 kg (R); lp1 03:00 BP 138 / 88; Pulse 114; Resp 26; Pulse Ox 100% on R/A; lp1 MDM: 00:08 Patient medically screened. tw4 02:27 Differential diagnosis: diabetes insipidus, DKA, hyperthyroidism. Data reviewed: vital tw4 signs, nurses notes. Data interpreted: Pulse oximetry: Interpretation: normal. Counseling: I had a detailed discussion with the patient and/or guardian regarding: the historical points, exam findings, and any diagnostic results supporting the discharge/admit diagnosis, lab results, the need for outpatient follow up. Physician consultation: Guzman Patterson regarding admission, to the telemetry unit. and will see patient in inpatient room. 04/09 00:08 Order name: Basic Metabolic Panel; Complete Time: 01:20 04/09 01:20 Interpretation: Normal except: CO2 5; GLUC 407; BUN 21; GFR 57. 04/09 00:08 Order name: CBC with Diff; Complete Time: 02:24 [facility] 04/09 02:24 Interpretation: Normal except: WBC 18.70; RBC 5.25; HCT 47.5; MCV 90.5; MCHC 31.3; PLT tw4 499; MN% 2.5; LYM% 6.3; ZURDO% 91.1. 04/09 00:08 Order name: Hepatic Function; Complete Time: 01:20 [facility] 04/09 01:21 Interpretation: Normal except: TP 8.3; GLOB 4.1; A/G 1.0. 04/09 00:08 Order name: Lipase; Complete Time: 01:20 [facility] 04/09 00:16 Order name: Acetone, Serum; Complete Time: 01:18 04/09 00:45 Order name: Manual Differential; Complete Time: 02:24 [facility] 04/09 01:13 Order name: UDS; Complete Time: 02:24 [facility] 04/09 01:22 Order name: Urine Dipstick-Ancillary; Complete Time: 02:24 [facility] 04/09 01:25 Order name: Urine --Ancillary (enter results); Complete Time: 02:24 [facility] 04/09 02:37 Order name: COVID-19 : Document "Date of Symptom Onset" if Symptomatic. 04/09 02:43 Order name: Acetone Level EDCT 04/09 02:43 Order name: Acetone Level EDMS 04/09 02:43 Order name: Acetone Level EDMS 04/09 02:43 Order name: Acetone Level EDMS 04/09 02:43 Order name: Basic Metabolic Panel EDCT 04/09 02:43 Order name: Basic Metabolic Panel EDMS 04/09 02:43 Order name: Basic Metabolic Panel EDMS 04/09 03:11 Order name: ABG [facility] 04/09 03:31 Order name: ABG Arterial Blood Gas EDCT 04/09 03:47 Order name: Glucose, Ancillary Testing EDMS 04/09 04:49 Order name: Glucose, Ancillary Testing EDMS 04/09 04:55 Order name: SARS-COV-2 RT PCR EDMS 04/09 05:50 Order name: Glucose, Ancillary Testing EDMS 04/09 06:58 Order name: Glucose, Ancillary Testing EDMS 04/09 08:11 Order name: Glucose, Ancillary Testing EDMS 04/09 09:07 Order name: Glucose, Ancillary Testing EDMS 04/09 09:52 Order name: Glucose, Ancillary Testing EDMS 04/09 11:14 Order name: Glucose, Ancillary Testing EDMS 04/09 11:58 Order name: Glucose, Ancillary Testing EDMS 04/09 13:41 Order name: Glucose, Ancillary Testing EDMS 04/09 02:03 Order name: EKG; Complete Time: 02:04 bb 04/09 11:21 Order name: RAD EDMS 04/09 14:59 Order name: Glucose, Ancillary Testing EDMS 04/09 16:07 Order name: Glucose, Ancillary Testing EDMS 04/09 17:24 Order name: ABG Arterial Blood Gas EDMS 04/09 17:54 Order name: Glucose, Ancillary Testing EDMS 04/09 18:53 Order name: Glucose, Ancillary Testing EDMS 04/09 19:36 Order name: Phosphorus EDMS 04/09 19:36 Order name: Magnesium EDMS 04/09 19:57 Order name: Basic Metabolic Panel EDMS 04/09 20:19 Order name: Glucose, Ancillary Testing EDMS 04/09 21:31 Order name: Glucose, Ancillary Testing EDMS 04/09 22:25 Order name: Basic Metabolic Panel EDMS 04/09 23:35 Order name: Glucose, Ancillary Testing EDMS 04/10 00:53 Order name: Glucose, Ancillary Testing EDMS 04/10 02:01 Order name: Glucose, Ancillary Testing EDMS 04/10 02:40 Order name: Basic Metabolic Panel EDMS 04/10 03:10 Order name: Glucose, Ancillary Testing EDMS 04/10 04:16 Order name: Glucose, Ancillary Testing EDMS 04/10 04:57 Order name: Blood Culture EDMS 04/10 05:39 Order name: CBC with Automated Diff EDMS 04/10 06:01 Order name: Hemoglobin A1c EDMS 04/10 06:04 Order name: Comprehensive Metabolic Panel EDMS 04/10 06:04 Order name: Phosphorus EDCT 04/10 06:04 Order name: Lipid Profile EDCT 04/10 06:04 Order name: Magnesium EDCT 04/10 06:34 Order name: Osmolality, Serum EDMS 04/10 08:07 Order name: Glucose, Ancillary Testing EDCT 04/10 10:34 Order name: Basic Metabolic Panel EDCT 04/09 00:08 Order name: IV Saline Lock; Complete Time: 00:32 tw4 04/09 00:08 Order name: Labs collected and sent; Complete Time: 00:32 tw4 04/09 01:26 Order name: Urine Dipstick-Ancillary (obtain specimen); Complete Time: 01:26 mw2 04/09 01:26 Order name: Urine Test (obtain specimen); Complete Time: 01:26 mw2 04/09 02:03 Order name: EKG - Nurse/Tech; Complete Time: 02:28 bb 04/09 02:43 Order name: Case Management Consult EDCT 04/09 02:43 Order name: CONS Diabetic Education Consul EDCT 04/09 02:43 Order name: NPO EDCT 04/09 02:44 Order name: Dietitian Consult EDCT 04/09 18:55 Order name: Labs - recollect needed: recollect green; Complete Time: 19:15 bd EC:28 Rate is 109 beats/min. Rhythm is regular. QRS Kirkman is Normal. AL interval is normal. tw4 QRS interval is normal. QT interval is normal. No Q waves. T waves are Normal. No ST changes noted. Clinical impression: Sinus tachycardia. Interpreted by me. Reviewed by me. Administered Medications: 00:47 Drug: NS 0.9% 1000 ml Route: IV; Rate: 1 bolus; Site: left antecubital; lp1 01:50 Follow up: IV Status: Completed infusion; IV Intake: 1000ml lp1 00:47 Drug: Zofran (Ondansetron) 4 mg Route: IVP; Site: left antecubital; lp1 01:50 Follow up: Response: No adverse reaction lp1 02:28 Drug: Insulin Drip - (Insulin Regular Human 100 units, NS 0.9% 100 ml) {Co-Signature: lp1 jb4 (Estrada Chen RN).} Route: IV; Rate: calculated rate; Site: left antecubital; 03:40 Follow up: IV Status: Infusion continued upon admission lp1 Disposition: 04/09/21 02:26 Hospitalization ordered by Guzman Patterson for Inpatient Admission. Preliminary diagnosis are Diabetes mellitus due to underlying condition with ketoacidosis without coma, Vomiting, unspecified. - Bed requested for Telemetry/MedSurg (Inpatient). - Status is Inpatient Admission. jl7 - Condition is Stable. - Problem is new. - Symptoms have improved. Signatures: Dispatcher [employer] EDMS Velvet Cruz Martha, RN RN Daja Rose, RN RN bb Fior Rae, RN RN lp1 Sydney Argueta RN RN jl7 Drake Baldwin MD MD tw4 Kushal Jack 2 Estrada Chen RN jb4 Corrections: (The following items were deleted from the chart) 02:30 02:26 Hospitalization Ordered by Guzman Patterson for Inpatient Admission. Preliminary diagnosis is Diabetes mellitus due to underlying condition with ketoacidosis without coma; Vomiting, unspecified. Bed requested for Telemetry/MedSurg (Inpatient). Status is Inpatient Admission. Condition is Stable. Problem is new. Symptoms have improved. 4 04/10 06:27 06 02:30 04/09/2021 02:26 Hospitalization Ordered by Guzman Patterson for Inpatient Admission. Preliminary diagnosis is Diabetes mellitus due to underlying condition with ketoacidosis without coma; Vomiting, unspecified. Bed requested for [facility] ER HOLD. Status is Inpatient Admission. Condition is Stable. Problem is new. Symptoms have improved. 04/10 11:16 06:27 04/09/2021 02:26 Hospitalization Ordered by Guzman Patterson for Inpatient jl7 Admission. Preliminary diagnosis is Diabetes mellitus due to underlying condition with ketoacidosis without coma; Vomiting, unspecified. Bed requested for Telemetry/MedSurg (Inpatient). Status is Inpatient Admission. Condition is Stable. Problem is new. Symptoms have improved.
--- NOTE | 2021-04-09 02:27 | ER ---
Nurse's Notes [facility] Name: Rosalie Parekh Age: 25 yrs Sex: Female : 1995 Arrival Date: 04/09/2021 Time: 00:07 Bed 8 Private MD: Diagnosis: Diabetes mellitus due to underlying condition with ketoacidosis without coma;Vomiting, unspecified Presentation: 04/09 00:15 Chief complaint: EMS states: Called for patient with high blood glucose readings and lp1 vomiting; Patient has hx of DKA, reports chest pain and rapid breathing for the last hour and a half. 00:15 Coronavirus screen: Client denies travel out of the [place] in the last 14 days. At this lp1 time, the client does not indicate any symptoms associated with coronavirus-19. Ebola Screen: No symptoms or risks identified at this time. Initial Sepsis Screen: Does the patient meet any 2 criteria? No. Patient's initial sepsis screen is negative. Does the patient have a suspected source of infection? No. Patient's initial sepsis screen is negative. Risk Assessment: Do you want to hurt yourself or someone else? Patient reports no desire to harm self or others. Onset of symptoms was April 09, 2021. 00:15 Method Of Arrival: EMS: [facility] lp1 00:15 Acuity: TANYA 2 lp1 00:25 Note Emesis noted during triage, bile. lp1 00:36 Care prior to arrival: Medication(s) given: Normal saline infusion, 1000 mL, IV lp1 initiated. 20 GA, in the left antecubital area, Glucose check: 301. 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 - Social history:: Smoking status: Patient reports the use of cigarette tobacco products, smokes one-half pack cigarettes per day. Screenin:33 Abuse screen: Denies threats or abuse. Denies injuries from another. Nutritional lp1 screening: No deficits noted. Tuberculosis screening: No symptoms or risk factors identified. Fall Risk None identified. Assessment: 00:20 General: Appears distressed, Behavior is agitated, anxious, restless. Pain: Denies lp1 pain. Neuro: Level of Consciousness is awake, alert, obeys commands, Oriented to person, place, time, situation. Cardiovascular: Patient's skin is warm and dry. Respiratory: Respiratory effort is labored, Respiratory pattern is hypoventilation Breath sounds are clear bilaterally. GI: Abdomen is non-distended, Reports nausea, increased thirst, dry mouth. : No signs and/or symptoms were reported regarding the genitourinary system. EENT: No signs and/or symptoms were reported regarding the EENT system. Derm: Skin is intact, Skin is dry, Skin is normal. Musculoskeletal: No deficits noted. 00:45 Reassessment: Patient continuing to ask for water; states "I'm just going to keep on lp1 bitching until you give me some water"; Educated on NPO status. General: Behavior is anxious. 01:30 Reassessment: Patient appears restless, hyperventilating, requesting water due to dry lp1 mouth; appears agitated. 02:03 Reassessment: pt c/o chest pain EKG administered and shown to physician. bb 02:30 Reassessment: Patient resting, appears in no distress on arrival to room, lights turned lp1 on, patient awoken, noted to be hyperventilating, requesting water. Vital Signs: 00:15 BP 124 / 71; Pulse 120; Resp 26; Temp 97.4(O); Pulse Ox 100% on R/A; lp1 01:00 BP 112 / 70; Pulse 112; Resp 28; Pulse Ox 100% on R/A; lp1 02:00 BP 109 / 60; Pulse 115; Resp 26; Pulse Ox 100% on R/A; lp1 02:29 Weight 74.84 kg (R); lp1 03:00 BP 138 / 88; Pulse 114; Resp 26; Pulse Ox 100% on R/A; lp1 ED Course: 00:07 Patient arrived in ED. mw2 00:08 Drake Baldwin MD is Attending Physician. tw4 00:25 Maintain EMS IV. Dressing intact. Good blood return noted. Site clean \\T\\ dry. Gauge \\T\\ lp 1 site: 20g to L AC. 00:25 Initial lab(s) drawn, by me, sent to lab. lp1 00:36 Triage completed. lp1 00:36 Arm band placed on. lp1 00:36 Patient has correct armband on for positive identification. Placed in gown. Bed in low lp1 position. 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 Pulse ox on. NIBP on. 00:46 Fior Rae, RN is Primary Nurse. lp1 02:26 Guzman Patterson is Hospitalizing Provider. tw4 03:30 No provider procedures requiring assistance completed. Patient admitted, IV remains in lp1 place. 07:21 Primary Nurse role handed off by Fior Rae RN 07:59 Barb Arroyo, MURTAZA is Primary Nurse. ph Administered Medications: 00:47 Drug: NS 0.9% 1000 ml Route: IV; Rate: 1 bolus; Site: left antecubital; lp1 01:50 Follow up: IV Status: Completed infusion; IV Intake: 1000ml lp1 00:47 Drug: Zofran (Ondansetron) 4 mg Route: IVP; Site: left antecubital; lp1 01:50 Follow up: Response: No adverse reaction lp1 02:28 Drug: Insulin Drip - (Insulin Regular Human 100 units, NS 0.9% 100 ml) {Co-Signature: [facility] víctor (Estrada Chen RN).} Route: IV; Rate: calculated rate; Site: left antecubital; 03:40 Follow up: IV Status: Infusion continued upon admission lp1 Intake: 00:45 IV: 1000ml (IV Fluid); Total: 1000ml. lp1 01:50 IV: 1000ml; Total: 2000ml. lp1 00:45 1L NS completed at this time from EMS lp1 Outcome: 02:26 Decision to Hospitalize by Provider. tw4 03:31 Admitted to ER Hold. Please see [facility] for further documentation. lp1 03:31 critical 03:31 Instructed on the need for admit. 04/10 11:16 Patient left the ED. jl7 Signatures: Stacey Torres RN RN sv Ballard, Brenda, RN RN bb Fior Rae, MURTAZA RN 1 Barb Arroyo RN RN Sydney Argueta RN RN jl7 Drake Baldwin MD MD tw4 Kushal Jack mw2 Estrada Chen RN jb4 Corrections: (The following items were deleted from the chart) 04/09 02:29 00:15 BP 124 / 71; Pulse 120bpm; Resp 26bpm; Pulse Ox 100% RA; Temp 97.4F Oral; 83.91 lp1 kg; lp1
[2021-04-09] MEDS ORDERED: ONDANSETRON 4 MG/2 ML VIAL IV PRN (02:40)
[2021-04-09] MEDS ORDERED: INSULIN -REGULAR HUMAN 100 UNIT in NA CHLORIDE 0.9% 100 ML IV SCH (02:45)
[2021-04-09] MEDS ORDERED: NACHLORIDE 0.45% 1,000 ML IV SCH (03:00)
[2021-04-09 03:30] LABS: Arterial Blood Carboxyhemoglob 1.3 % (0-1.5); Blood Gas Oxyhemoglobin 94.4 % (94-97); Blood O2 Saturation 96.9 % (92-98.5)
--- NOTE | 2021-04-09 03:31 | P.HP ---
Certification for Inpatient Patient admitted to: Inpatient With expected LOS: >2 Midnights Patient will require the following post-hospital care: None Practitioner: I am a practitioner with admitting privileges, knowledge of patient current condition, hospital course, and medical plan of care. Services: Services provided to patient in accordance with Admission requirements found in Title 42 Section 412.3 of the Code of Federal Regulations Patient History Date of Service: 04/09/21 Reason for admission: DKA History of Present Illness: Ms. Parekh is a 25 yo F with T1DM and anxiety here today with onset of vomiting beginning today. She says she checked her BP at 8pm and it was 300 so she gave herself 10 units of rapid acting insulin. Still with nausea, vomiting, headache. BG 407. AG 28. Allergies No Known Allergies Allergy (Unverified 02/23/21 01:35) Home Medications: Insulin Aspart [Novolog Flexpen] See Protocol SQ SEECOM #1 box 03/01/21 Insulin Glargine Human [Lantus*] 20 units SQ DAILY #1 vial 03/01/21 - Past Medical/Surgical History Diabetic: Yes -: DM -: C section - Family History Family History: Reviewed- Non-Contributory - Social History Smoking Status: Current every day smoker Alcohol use: Yes CD- Drugs: No Caffeine use: Yes Place of Residence: Home Review of Systems 10-point ROS is otherwise unremarkable Gastrointestinal: Nausea, Vomiting Physical Examination - Physical Exam General: Alert, In no apparent distress, Oriented x3, Cooperative HEENT: Atraumatic, PERRLA, Mucous membr. moist/pink, EOMI, Sclerae nonicteric Neck: Supple, 2+ carotid pulse no bruit, No LAD, Without JVD or thyroid abnormality Respiratory: Clear to auscultation bilaterally, Normal air movement Cardiovascular: Regular rate/rhythm, Normal S1 S2 Gastrointestinal: Normal bowel sounds, No tenderness Musculoskeletal: No tenderness Integumentary: No rashes Neurological: Normal gait, Normal speech, Normal strength at 5/5 x4 extr, Normal tone, Normal affect Lymphatics: No axilla or inguinal lymphadenopathy - Studies Laboratory Data (last 24 hrs) 04/09/21 00:25: WBC 18.70 H, Hgb 14.9, Hct 47.5 H, Plt Count 499 H 04/09/21 00:25: Sodium 137, Potassium 5.1, BUN 21 H, Creatinine 1.15, Glucose 407 H*, Total Bilirubin 0.5, AST 10 L, ALT 20, Alkaline Phosphatase 109, Lipase 116 Assessment and Plan - Problems (Diagnosis) (1) DKA (diabetic ketoacidoses) Current Visit: No Status: Acute Qualifiers: (2) T1DM (type 1 diabetes mellitus) Current Visit: No Status: Chronic Qualifiers: Diabetes mellitus complication status: with ketoacidosis Diabetes mellitus complication detail: without coma Qualified Code(s): E10.10 - Type 1 diabetes mellitus with ketoacidosis without coma - Plan move to ICU continue aggressive IV fluid hydration and insulin drip NPO, antiemetics PRN K 5.1, bicarb given, monitor BMP every 4 hours for AG closure UA wnl, CXR pending, blood cultures pending toradol for headaches PRN Discharge Plan: Home Plan to discharge in: 48 Hours - Advance Directives Does patient have a Living Will: No Does patient have a Durable POA for Healthcare: No - Code Status/Comfort Care Code Status Assessed: Yes (full code ) Critical Care: No Time Spent Managing Pts Care (In Minutes): 70
[2021-04-09] MEDS ORDERED: KETOROLAC 30 MG/ML INJ IV ONE (03:43)
[2021-04-09] MEDS ORDERED: SODIUM BICARB 50 MEQ/50ML VIAL ONE (04:11)
[2021-04-09] MEDS ORDERED: KETOROLAC 30 MG/ML INJ ONE (04:11)
[2021-04-09] MEDS: D5 0.45 NS 1,000 ML IV SCH ×2 (05:00→08:00)
[2021-04-09] MEDS ORDERED: NACHLORIDE 0.45% 1,000 ML IV ONE (05:34)
[2021-04-09 05:43] LABS: BUN Blood Urea Nitrogen 20 mg/dL (7-18); Glucose Level 250 mg/dL (74-106); Sodium Level 143 mmol/L (136-145)
[2021-04-09 05:44] LABS: Bicarbonate 6 mmol/L (21-32); Potassium 4.1 mmol/L (3.5-5.1)
[2021-04-09] MEDS ORDERED: D5 0.45 NS 1,000 ML IV ONE (08:31)
[2021-04-09 08:55] VITALS: O2SAT 100
[2021-04-09] MEDS ORDERED: ENOXAPARIN 40 MG/0.4 ML SQ SCH (09:00)
[2021-04-09] MEDS: ACETAMINOPHEN 325 MG TABLET PO PRN ×2 (09:15→17:50)
[2021-04-09] MEDS ORDERED: ACETAMINOPHEN 325 MG TABLET ONE (09:30)
[2021-04-09] MEDS ORDERED: ENOXAPARIN 40 MG/0.4 ML SQ ONE (09:30)
[2021-04-09 10:13] LABS: BUN Blood Urea Nitrogen 19 mg/dL (7-18); Glucose Level 119 mg/dL (74-106); Potassium 3.9 mmol/L (3.5-5.1); Sodium Level 143 mmol/L (136-145)
[2021-04-09 10:17] LABS: Bicarbonate 9 mmol/L (21-32)
--- NOTE | 2021-04-09 11:21 | RAD REPORT ---
EXAM DESCRIPTION: Estephania Single View04/09/2021 4:30 am CLINICAL HISTORY: 5 years Female, leukocytosisComparison: None FINDINGS: No focal lung consolidation. No pleural effusion. No pneumothorax. Cardiac and mediastinal silhouette is unremarkable. No acute osseous abnormality. Soft tissues are unremarkable. IMPRESSION: No acute findings. No focal lung consolidation. Electronically signed by: Estrada Klein DO 04/09/2021 4:36 AM CDT Due to temporary technical issues with the PACS/Fluency reporting system, reports are being signed by the in house radiologist without review as a courtesy to ensure prompt reporting. The interpreting r adiologist is fully responsible for the content of the report.
[2021-04-09 11:44] LABS: BUN Blood Urea Nitrogen 17 mg/dL (7-18); Glucose Level 224 mg/dL (74-106); Potassium 3.7 mmol/L (3.5-5.1); Sodium Level 139 mmol/L (136-145)
[2021-04-09 12:04] LABS: Bicarbonate 5 mmol/L (21-32)
[2021-04-09] MEDS ORDERED: MAGNES/ALUMIN/SIMET 30ML UCUP PO PRN (13:30)
[2021-04-09] MEDS ORDERED: MAGNES/ALUMIN/SIMET 30ML UCUP ONE (14:05)
[2021-04-09] MEDS: D5W 1,000 ML with NA BICARB 8.4% 100 MEQ IV SCH ×4 (14:45→22:30)
[2021-04-09 17:20] LABS: Blood Gas Oxyhemoglobin 89.1 % (94-97); Blood O2 Saturation 91.9 % (92-98.5)
--- NOTE | 2021-04-09 17:31 | P.PN ---
Date of Service: 04/09/21 Patient seen and examined. She currently has no complain. She states she feels just fine and would like to leave the hospital by tonight. I discussed with her the risk of leaving without completing treatment especially considering her level of acidosis which can be detrimental to heart. Patient is aware of her risk of cardiac arrest secondary to acidosis if she leaves AMA before the acidosis resolves. Diagnosis: DKA Plan: Continue insulin drip. Patient started on bicarb drip. Continue to monitor BMP q.4 hrs She can have ice chips and water. No evidence of UTI. Blood cultures is pending. Chest x-ray shows no acute infiltrate.
[2021-04-09] MEDS ORDERED: ACETAMINOPHEN 500 MG TAB ONE (17:35)
[2021-04-09 18:17] VITALS: TEMP 97
[2021-04-09 19:36] LABS: Magnesium 1.8 mg/dL (1.8-2.4); Phosphorus 1.1 mg/dL (2.5-4.9)
[2021-04-09 19:54] LABS: Potassium 3.2 mmol/L (3.5-5.1)
[2021-04-09] MEDS ORDERED: FAMOTIDINE 20 MG/2 ML VIAL IV SCH (21:00)
[2021-04-09] MEDS ORDERED: FAMOTIDINE 20 MG/2 ML VIAL IV ONE (22:12)
[2021-04-10 02:39] LABS: Potassium 2.8 mmol/L (3.5-5.1)
[2021-04-10] MEDS: KCL 20 MEQ/100 mL IVPB 20 MEQ/100 ML BAG IV SCH ×3 (03:00→07:00)
[2021-04-10] MEDS ORDERED: NA CHLORIDE 0.9% 1,000 ML IV SCH (03:00)
[2021-04-10 03:14] VITALS: BMI 28.1
[2021-04-10] MEDS ORDERED: NA CHLORIDE 0.9% 250 ML ONE (03:15)
[2021-04-10] MEDS: INSULIN GLARGINE 100 UNITS/ML SQ SCH ×2 (04:00→09:00)
[2021-04-10] MEDS ORDERED: INSULIN GLARGINE 100 UNITS/ML SQ ONE ×2 (04:34→08:19)
[2021-04-10] MEDS ORDERED: KCL 20 MEQ/100 mL IVPB 20 MEQ/100 ML BAG IV ONE ×2 (05:25→07:45)
[2021-04-10 05:39] LABS: Absolute Lymphocytes (CBC) 1.8 K/uL (0.7-4.9); Basophils % 0.5 % (0-1.3); Hematocrit 33.8 % (36.0-45.0)
[2021-04-10 05:59] LABS: ALT/SGPT 16 U/L (12-78); AST/SGOT 7 U/L (15-37); Albumin 2.9 g/dL (3.4-5.0); Alkaline Phosphatase 73 U/L (45-117); BUN Blood Urea Nitrogen 8 mg/dL (7-18); Bicarbonate 17 mmol/L (21-32); Bilirubin Total 0.5 mg/dL (0.2-1.0); Glucose Level 196 mg/dL (74-106); HDL Cholesterol 38 mg/dL (40-60); LDL Cholesterol, Calculated 119 (<130); Magnesium 1.9 mg/dL (1.8-2.4); Phosphorus 1.1 mg/dL (2.5-4.9); Potassium 3.2 mmol/L (3.5-5.1); Protein, Total 5.8 g/dL (6.4-8.2); Sodium Level 142 mmol/L (136-145)
[2021-04-10] MEDS ORDERED: INSULIN -REGULAR HUMAN 50 UNIT/0.5 ML ML SQ SCH (07:30)
[2021-04-10 08:05] VITALS: BP 97/65
[2021-04-10] MEDS ORDERED: INSULIN -REGULAR HUMAN 50 UNIT/0.5 ML ML ONE ×2 (08:20→11:15)
[2021-04-10 10:34] LABS: Potassium 3.9 mmol/L (3.5-5.1)
[2021-04-10] MEDS ORDERED: INSULIN -REGULAR HUMAN 50 UNIT/0.5 ML ML SQ ONE (11:10)
--- NOTE | 2021-04-10 16:48 | P.DS ---
Admission Date: 04/09/21 Discharge Date: 04/10/21 Disposition: AMA-LEFT AGAINST MEDICAL ADVIC Discharge Condition: FAIR Reason for Admission: DKA Procedures: CXR (04/09): No focal lung consolidation. No pleural effusion. No pneumothorax. Cardiac and mediastinal silhouette is unremarkable. No acute osseous abnormality. Soft tissues are unremarkable. Problem List: DKA Diabetes Mellitus, type 1 Brief History of Present Illness: Ms. Parekh is a 25 yo F with T1DM and anxiety here today with onset of vomiting beginning today. She says she checked her BP at 8pm and it was 300 so she gave herself 10 units of rapid acting insulin. Still with nausea, vomiting, headache. BG 407. AG 28, HCO3: 5 She was found to be in DKA in the ER and admitted for further treatment. Hospital Course: Patient was treated per DKA protocol with IV insulin drip and IVF. She had improvement of her glucose levels, anion gap closed, and bicarb improved. As she was transitioned to home doses of insulin, her glucose went up to 300 and bicarb down to 16. She was advised on staying for further insulin and recheck of electrolytes in ~4 hours. Patient stated she was here "long enough" and had several things to do. She has been going through a lot of stressors in her life at this time. Unfortunately, she decided to sign out against medical advice. She was counsell ed on the risks and dangers of leaving AMA, including risk of . She expressed understanding Vital Signs/Physical Exam: Temp Pulse Resp BP Pulse Ox 97 F 87 16 97/65 100 04/10/21 08:27 04/10/21 08:27 04/10/21 08:27 04/10/21 08:27 04/10/21 08:27 General: Alert, Oriented x3 HEENT: Sclerae nonicteric Respiratory: Clear to auscultation bilaterally, Normal air movement Cardiovascular: No edema, Regular rate/rhythm Gastrointestinal: Soft and benign, No tenderness Musculoskeletal: No tenderness Integumentary: No rashes Neurological: Normal gait, Normal speech, Other (anxious, tearful, stressed) Laboratory Data at Discharge: WBC 5.10 K/uL (4.3-10.9) D 04/10/21 05:22 Hgb 11.5 g/dL (12.0-15.0) L D 04/10/21 05:22 Hct 33.8 % (36.0-45.0) L D 04/10/21 05:22 Plt Count 267 K/uL (152-406) D 04/10/21 05:22 Sodium Cancelled 04/10/21 13:31 Potassium Cancelled 04/10/21 13:31 BUN Cancelled 04/10/21 13:31 Creatinine Cancelled 04/10/21 13:31 Glucose Cancelled 04/10/21 13:31 Phosphorus 1.1 mg/dL (2.5-4.9) L 04/10/21 05:22 Magnesium 1.9 mg/dL (1.8-2.4) 04/10/21 05:22 Total Bilirubin 0.5 mg/dL (0.2-1.0) 04/10/21 05:22 AST 7 U/L (15-37) L 04/10/21 05:22 ALT 16 U/L (12-78) 04/10/21 05:22 Alkaline Phosphatase 73 U/L (45-117) 04/10/21 05:22 Triglycerides 137 mg/dL (<150) 04/10/21 05:22 Cholesterol 184 mg/dL (<200) 04/10/21 05:22 HDL Cholesterol 38 mg/dL (40-60) L 04/10/21 05:22 Cholesterol/HDL Ratio 4.84 04/10/21 05:22 Lipase 116 U/L (73-393) 04/09/21 00:25 Home Medications: Insulin Aspart [Novolog Flexpen] See Protocol SQ SEECOM #1 box 03/01/21 Insulin Glargine Human [Lantus*] 30 units SQ DAILY 04/10/21 Followup: NONE,NONE [Primary Care Provider] - Time spent managing pt's care (in minutes): 45
== END 2021-04-10 11:19 | disposition left against medical advice (07) | DRG 639 ==
LOC: ER 00:05 → ERHOLD 02:33
PROVIDERS: ADMIT Internal Medicine; ATTEND Hospitalist
DX: E10.10 Type 1 diabetes mellitus with ketoacidosis without coma (principal); F41.9 Anxiety disorder, unspecified; F17.210 Nicotine dependence, cigarettes, uncomplicated; Z53.29 Procedure and treatment not carried out because of patient's decision for other reasons; Z79.4 Long term (current) use of insulin; Z20.822 Contact with and (suspected) exposure to COVID-19
CPT/HCPCS: 36415; 71045; 80048; 80053; 80061; 80076; 80307; 81003; 81025; 82010; 82805; 82947; 83036; 83690; 83735; 83930; 84100; 85025; 87040; 93005; 96361; 96365; 96375; 99285; J1650; J1815; J2405; J3480; J7030; J7050; J7799; U0003

== ENCOUNTER 2021-12-12 13:24 | Inpatient (IN) | payer OTHER ==
--- OUTSIDE RECORDS SUMMARY | 2021-12-12 13:31 | XMS REPORT | Continuity of Care Document ---
:1995 Author Organization [facility] t Address [address] [place] [address] Care Team Providers Name Role Phone HENRY Attending Clinician Unavailable HENRY Attending Clinician Unavailable Jose Attending Clinician Unavailable Jarad JOHANSEN Attending Clinician JARAD Attending Clinician Unavailable YARON BRUNO Attending Clinician Unavailable HENRY Admitting Clinician Unavailable Jose Admitting Clinician Unavailable YARON BRUNO Admitting Clinician Unavailable Payers Payer Name Policy Type Policy Number Effective Date Expiration Date Jared baron [employer] O [id number] 2018 00:00:00 Problems This patient has no known problems. Allergies, Adverse Reactions, Alerts Allergy Allergy Status Severity Reaction(s) Onset Inactive Treating Comm ents Source Name Type Date Date Clinician No Known DA Active U [facility] s 00:[facility]: [address] No Known DA Active U [facility] 11-22 s 00:00: [address] No Known DA Active U 2019-11 [facility] 11-28 s 00:00: [address] No Known DA Active U 2019-11 [facility] 11-28 s 00:00: [address] No Known DA Active U 2019-11 [facility] 0 s 00:00: [address] No Known DA Active U 2019-11 [facility] 0-03 [facility] 00:00: [address] NO KNOWN Drug Active Univers ALLERGIE Class [facility] Medications This patient has no known medications. Procedures Procedure Date / Time Performed Performing Clinician Gaudencio collins [id number] 2020-11-30 00:00:00 [facility] [id number] 2020-11-30 00:00:00 [facility] Encounters Start End Encounter Admission Attending Care Care Encounter Source Date/Time Date/Time Type Type Clinicians Facility Department ID 2021-08-31 Inpatient U ANSELMO FIGUEROA [facility] [id number] Univers 10:13:06 ANSELMO FIGUEROA it [facility] 2020-11-29 Inpatient EM Jose, [facility] LD [id number] [facility] 20:33:00 Ziad [id number] [facility] 2020-11-28 Inpatient Jose, [facility] OBANTE [id number] [facility] 19:00:00 Ziad [id number] [facility] 2020-11-22 Inpatient EL Jose, [facility] OBANTE [id number] [facility] 10:30:00 Ziad [facility] 2020-09-28 Inpatient Jose, [facility] TONY [id number] [facility] 03:41:00 Ziad [id number] [facility] 2020-09-26 Inpatient EL Jose, [facility] INTE [id number] [facility] 12:48:00 Ziad [id number] [facility] 2020-08-05 Inpatient [facility] JED [id number] [facility] 00:52:00 [facility] 2020-11-22 2020-11-22 Outpatient Jose, [facility] REFE [id number] [facility] 14:51:00 14:51:00 Ziad [facility] 2020-09-26 2020-09-26 Outpatient Jose, [facility] REFE [id number] [facility] 17:05:00 17:05:00 Zi [id number] [facility] 2020-09-20 2020-09-20 Refill RADHA Moreira [id number] 00:00:00 00:00:00 [place] [id number] [place] [id number] Professio [phone] [facility] 220 [facility] 2020-07-16 2020-07-16 Refill Moreira, [facility] [id number] 00:00:00 00:00:00 Beatriz [place] [id number] [place] [id number] Professio [phone] [facility] 2020-06-20 2020-06-20 Outpatient R MOREIRA, [facility] [id number] Univers 10:00:00 10:00:00 BEATRIZ [id number] [facility] 2020-06-20 2020-06-20 Outpatient R MOREIRA, [facility] [id number] Univers 10:00:00 10:00:00 [facility] 2020-05-30 2020-05-30 Outpatient R [facility] [id number] Univers 08:00:00 08:00:00 [id number] [facility] 2020-05-30 2020-05-30 Outpatient R [facility] [id number] Univers 08:00:00 08:00:00 ity [facility] 2020-05-09 2020-05-09 Outpatient R MOREIRA, [facility] [id number] Univers 14:00:00 14:00:[address] [facility] 2020-05-09 2020-05-09 [facility] [id number] Univers 14:00:00 14:00:[address] [facility] 2020-01-05 2020-01-05 Outpatient R MOREIRA, [facility] [id number] Univers 11:00:00 11:00:00 [facility] Results Test Description Test Time Test Comments Results Result Comments Source PLACENTA THIRD TRIMESTER 2020-12-07 11:28:00 Test Item Value Reference Range Interpretation Comme nts PLACENTA RUN DATE: THIRD 12/07/20 [facility] PAGE 1 RUN TIME: 1403 TRIMESTER Specimen Inquiry RUN USER: INTERFACE (test code = PLACIII) PATIENT: TASHI MOSQUERA LOC: AnupSARA U #: [id number] AGE/SX: 25/ ROOM: [facility] RE11/29/20REG DR: Natalie Garcia MD : 89 BED: A DIS: 12/03/20 STATUS: DIS IN TLOC: SPEC #: [id number] RECD: STATUS: REKHA KO #: [id number] THERESE: 11/30/20- [facility] DR: Natalie Garcia MD ENTERED: 12/01/20 SP TYPE: PLACIII RAYMOND ROJO: ORDERED: LEVEL V SURGICA CODES: [id number] - PLACENTA, NOS PROCEDURES: LEVEL V SURGICA [...] for recurr ence in future pregnancies. CPT: 13830 [facility]/wpd GROSS DESCRIPTION The specimen was received in a container, labeled with the patient's name, unit number and designated "placenta". The following attributes are observed: Cord insertion: 1 cm from margin CONTINUED ON NEXT PAGE RUN DATE: 12/07/20 [facility] PAGE 2 RUN TIME: 1403 Specimen Inquiry RUN USER: INTERFACE SPEC #: [id number] PATIENT: TASHI MOSQUERA #[id number] (Continued) GROSS DESCRIPTION (Continued) Cord length: 30 [...] Parenchyma lesions: None Cassettes: A1 through A4 nz/wpjaquelin 12/01/20 MICROSCOPIC DESCRIPTION The placenta is composed of small vascular v illi which are smaller and more mature appearing than expected for the given gestational age. Mult ifocal increase in the syncytial knots is present. The trivascular umbilical cord and mem branes are free of inflammation. Scattered calcifications are identified. kimi/wpd Signed Olive Barone 12/07/20 1128 END OF REPO RT [id number] 11:58:00 Test Item Value Reference Range Interpretation Comments GLUBED (test code = GLUBED) 71 mg/dL 65-110 N [id number] 06:51:00 Test Item Value Reference Range Interpretation Comments GLUBED (test code = GLUBED) 80 mg/dL 65-110 N [id number] 21:24:00 Test Item Value Reference Range Interpretation Comments GLUBED (test code = GLUBED) 103 mg/dL 65-110 N [id number] 15:15:00 Test Item Value Reference Range Interpretation Comments GLUBED (test code = GLUBED) 206 mg/dL 65-110 H [id number] 09:56:00 Test Item Value Reference Range Interpretation Comments GLUBED (test code = GLUBED) 200 mg/dL 65-110 H [id number] 06:48:00 Test Item Value Reference Range Interpretation Comments GLUBED (test code = GLUBED) 64 mg/dL 65-110 L [id number] 21:12:00 Test Item Value Reference Range Interpretation Comments GLUBED (test code = GLUBED) 186 mg/dL 65-110 H [id number] 14:15:00 Test Item Value Reference Range Interpretation Comments GLUBED (test code = GLUBED) 177 mg/dL 65-110 H [id number] 10:42:00 Test Item Value Reference Range Interpretation Comments GLUBED (test code = GLUBED) 242 mg/dL 65-110 H HGB [id number] 08:21:00 Test Item Value Reference Range Interpretation Comments HEMOGLOBIN (test code = HGB) 11.7 g/dL 10.7-13.9 N HEMATOCRIT (test code = HCT) 36.4 % 32.1-42.1 N [id number] 06:49:00 Test Item Value Reference Range Interpretation Comments GLUBED (test code = GLUBED) 115 mg/dL 65-110 H [id number] 22:46:00 Test Item Value Reference Range Interpretation Comments GLUBED (test code = GLUBED) 129 mg/dL 65-110 H [id number] 19:28:00 Test Item Value Reference Range Interpretation Comments GLUBED (test code = GLUBED) 221 mg/dL 65-110 H [id number] 17:42:00 Test Item Value Reference Range Interpretation Comments GLUBED (test code = GLUBED) 359 mg/dL 65-110 H [id number] 10:51:00 Test Item Value Reference Range Interpretation Comments GLUBED (test code = GLUBED) 126 mg/dL 65-110 H PaO2/[id number] 10:01:00 Test Item Value Reference Range Interpretation Comments PaO2/FiO2 (test code = [id number]) 70.40 mm/Hg ARTERIAL BLOOD [id number] 10:01:00 Test Item Value Reference Range Interpretation [...] FIO2 (test code = FIO2A) 21.0 % PaO2/[id number] 10:01:00 Test Item Value Reference Range Interpretation Comments PaO2/FiO2 (test code = ANM6LPW8) mm/Hg ARTERIAL BLOOD [id number] 10:01:00 Test Item Value Reference Range Interpretation [...] FIO2 (test code = FIO2A) 21.0 % CAPILLARY BLOOD [id number] 10:00:00 Test Item Value Reference Range Interpretation [...] FIO2 (test 21.0 % code = FIO2C) [id number] 06:32:00 Test Item Value Reference Range Interpretation Comments GLUBED (test code = GLUBED) 183 mg/dL 65-110 H [id number] 02:15:00 Test Item Value Reference Range Interpretation Comments GLUBED (test code = GLUBED) 82 mg/dL 65-110 N [id number] 22:52:00 Test Item Value Reference Range Interpretation Comments GLUBED (test code = GLUBED) 200 mg/dL 65-110 H AG HEPATITIS B [id number] 22:46:00 Test Item Value Reference Range Interpretation Comments AG HEPATITIS B SURFACE (test code NONREACTIVE NONREACTIVE = HBSAG) IS CONSENT FORM SIGNED FOR HIV TESTING? YAB HEPATITIS C [id number] 22:46:00 Test Item Value Reference Range Interpretation Comments AB HEPATITIS C (test code = NONREACTIVE NONREACTIVE HCVAB) SIGNAL TO CUTOFF (test code = 0.03 <0.80 N CUTOFF) IS CONSENT FORM SIGNED FOR HIV TESTING? YAB [id number] 22:46:00 Test Item Value Reference Range Interpretation Comments AB TREPONEMA (test code = TREPAB) NONREACTIVE NONREACTIVE IS CONSENT FORM SIGNED FOR HIV TESTING? YAB HIV 1 22:46:00 Test Item Value Reference Range Interpretation Comments AB HIV 1 2 (test NONREACTIVE NONREACTIVE Done by [facility] code = [id number]) 4th Gen HIV Ag/Ab Combo Screen IS CONSENT FORM SIGNED FOR HIV TESTING? YAG HEPATITIS B [id number] 22:16:00 Test Item Value Reference Range Interpretation Comments AG HEPATITIS B SURFACE (test code NONREACTIVE NONREACTIVE = HBSAG) IS CONSENT FORM SIGNED FOR HIV TESTING? YAB HEPATITIS C [id number] 22:16:00 Test Item Value Reference Range Interpretation Comments AB HEPATITIS C (test code = HCVAB) NONREACTIVE SIGNAL TO CUTOFF (test code = CUTOFF) <0.80 IS CONSENT FORM SIGNED FOR HIV TESTING? YAB [id number] 22:16:00 Test Item Value Reference Range Interpretation Comments AB TREPONEMA (test code = TREPAB) NONREACTIVE NONREACTIVE IS CONSENT FORM SIGNED FOR HIV TESTING? YAB HIV 1 22:16:00 Test Item Value Reference Range Interpretation Comments AB HIV 1 2 (test code = DIS27UY) NONREACTIVE IS CONSENT FORM SIGNED FOR HIV TESTING? YCBC W/AUTO [id number] 21:47:00 Test Item Value Reference Range Interpretation [...] code = PLTMR) COVID 19 Asymptomatic IH [id number] 21:44:00 Test Item Value Reference Range Interpretation [...] and/o r diagnosis of CO VID-19 under Gvngymz99 4(b)(1) of the Act, 21 U.S .C. 360bbb-3(b)(1), unless theauthorizatio n is terminated or r evoked sooner. [id number] 10:30:00 Test Item Value Reference Range Interpretation Comments GLUBED (test code = GLUBED) 105 mg/dL 65-110 N [id number] 06:29:00 Test Item Value Reference Range Interpretation Comments GLUBED (test code = GLUBED) 126 mg/dL 65-110 H [id number] 01:02:00 Test Item Value Reference Range Interpretation Comments GLUBED (test code = GLUBED) 72 mg/dL 65-110 N [id number] 20:42:00 Test Item Value Reference Range Interpretation Comments GLUBED (test code = GLUBED) 88 mg/dL 65-110 N [id number] 14:39:00 Test Item Value Reference Range Interpretation Comments GLUBED (test code = GLUBED) 149 mg/dL 65-110 H [id number] 11:20:00 Test Item Value Reference Range Interpretation Comments GLUBED (test code = GLUBED) 74 mg/dL 65-110 N [id number] 06:28:00 Test Item Value Reference Range Interpretation Comments GLUBED (test code = GLUBED) 103 mg/dL 65-110 N [id number] 06:28:00 Test Item Value Reference Range Interpretation Comments GLUBED (test code = GLUBED) 76 mg/dL 65-110 N [id number] 22:06:00 Test Item Value Reference Range Interpretation Comments GLUBED (test code = GLUBED) 78 mg/dL 65-110 N [id number] 16:07:00 Test Item Value Reference Range Interpretation Comments GLUBED (test code = GLUBED) 167 mg/dL 65-110 H [id number] 10:42:00 Test Item Value Reference Range Interpretation Comments GLUBED (test code = GLUBED) 130 mg/dL 65-110 H [id number] 04:47:00 Test Item Value Reference Range Interpretation Comments GLUBED (test code = GLUBED) 78 mg/dL 65-110 N [id number] 20:47:00 Test Item Value Reference Range Interpretation Comments GLUBED (test code = GLUBED) 160 mg/dL 65-110 H [id number] 14:52:00 Test Item Value Reference Range Interpretation Comments GLUBED (test code = GLUBED) 235 mg/dL 65-110 H [id number] 10:54:00 Test Item Value Reference Range Interpretation Comments GLUBED (test code = GLUBED) 148 mg/dL 65-110 H [id number] 07:01:00 Test Item Value Reference Range Interpretation Comments GLUBED (test code = GLUBED) 82 mg/dL 65-110 N [id number] 06:05:00 Test Item Value Reference Range Interpretation Comments GLUBED (test code = GLUBED) 61 mg/dL 65-110 L [id number] 20:39:00 Test Item Value Reference Range Interpretation Comments GLUBED (test code = GLUBED) 312 mg/dL 65-110 H GLYCOSYLATED HEMOGLOBIN [id number] 17:32:00 Test Item Value Reference Range Interpretation [...] H (test code = MBG) COMPREHENSIVE METABOLIC [id number] 17:32:00 Test Item Value Reference Range Interpretation [...] considered for these patients. AG HEPATITIS B [id number] 15:30:00 Test Item Value Reference Range Interpretation Comments AG HEPATITIS B SURFACE (test code NONREACTIVE NONREACTIVE = HBSAG) IS CONSENT FORM SIGNED FOR HIV TESTING? YAB HEPATITIS C [id number] 15:30:00 Test Item Value Reference Range Interpretation Comments AB HEPATITIS C (test code = NONREACTIVE NONREACTIVE HCVAB) SIGNAL TO CUTOFF (test code = 0.02 <0.80 N CUTOFF) IS CONSENT FORM SIGNED FOR HIV TESTING? YAB [id number] 15:30:00 Test Item Value Reference Range Interpretation Comments AB TREPONEMA (test code = TREPAB) NONREACTIVE NONREACTIVE IS CONSENT FORM SIGNED FOR HIV TESTING? YAB HIV 1 15:30:00 Test Item Value Reference Range Interpretation Comments AB HIV 1 2 (test NONREACTIVE NONREACTIVE Done by Jared Dugan code = [id number]) 4th Gen HIV Ag/Ab Combo Screen IS CONSENT FORM SIGNED FOR HIV TESTING? [id number] 15:23:00 Test Item Value Reference Range Interpretation Comments GLUBED (test code = GLUBED) 266 mg/dL 65-110 H COVID 19 Asymptomatic IH [id number] 15:16:00 Test Item Value Reference Range Interpretation [...] and/o r diagnosis of CO VID-19 under Unpwwke71 4(b)(1) of the Act, 21 U.S .C. 360bbb-3(b)(1), unless theauthorizatio n is terminated or r evoked sooner. AG HEPATITIS B [id number] 15:08:00 Test Item Value Reference Range Interpretation Comments AG HEPATITIS B SURFACE (test code NONREACTIVE NONREACTIVE = HBSAG) IS CONSENT FORM SIGNED FOR HIV TESTING? YAB HEPATITIS C [id number] 15:08:00 Test Item Value Reference Range Interpretation Comments AB HEPATITIS C (test code = HCVAB) NONREACTIVE SIGNAL TO CUTOFF (test code = CUTOFF) <0.80 IS CONSENT FORM SIGNED FOR HIV TESTING? YAB [id number] 15:08:00 Test Item Value Reference Range Interpretation Comments AB TREPONEMA (test code = TREPAB) NONREACTIVE NONREACTIVE IS CONSENT FORM SIGNED FOR HIV TESTING? YAB HIV 1 15:08:00 Test Item Value Reference Range Interpretation Comments AB HIV 1 2 (test code = TCY71SI) NONREACTIVE IS CONSENT FORM SIGNED FOR HIV TESTING? YUR PROTEIN/CREATININE [id number] 14:46:00 Test Item Value Reference Range Interpretation Comments UR PROTEIN RANDOM (test code = 11.5 mg/dL PROTU) UR CREATININE RANDOM (test 24.6 mg/dL code = CREATU) PROTEIN/CREATININE RATIO (test 460.0 mg/gcrea <200 H code = P/CRATIO) COMPREHENSIVE METABOLIC [id number] 14:38:00 Test Item Value Reference Range Interpretation [...] (HA1C) (test code = GLYHGB) CBC W/AUTO [id number] 14:26:00 Test Item Value Reference Range Interpretation [...] NORMAL NORMAL code = PLTMR) - [place] [id number] 06:06:00 [facility] : 1995 Sex: F Patient Name: TASHI MOSQUERA Unit No: [id number] EXAMS: CPT CODE: [id number] [place] [address]122 STUDY: - US LTD 09/28/2020 5:04 AM Ordering Physician: Cipriano Alex III, MD Patient Name: TASHI MOSQUERA MR: [id number] : 1995; Age: 25 years y/o Female [...] weeks 3 days as above described. [facility] NAME: [facility] Radiology Department PHYS: Cipriano Michelle III, MD [address] : 1995 AGE: 25 SEX: F [place], [place] [address] LOC: F.TONY PHONE #: [phone] EXAM DATE: 09/28/2020 STATUS: REG ER FAX #: [phone] RAD NO: Page 1 Signed Report (CONTINUED) Patient Name: Tee MOSQUERA Unit No: [id number] EXAMS: CPT CODE: [id number] [place] LTD 42006 <C ontinued> ALEXY 17.8 cm. Trace fluid [...] Alex III, MD Technologist: ERICA ZHOU RDMS, T Probe: Trnscrbd D/ (605) JosefinaTP6 Orig Print D/T: S: 09/28/2020 (0609) [facility] NAME: [facility] Radiology Department PHYS: Cipriano Michelle III, MD [address] : 1995 AGE: 25 SEX: F [place], [place] [address] LOC: F.TONY PHONE #: [phone] EXAM DATE: 09/28/2020 STATUS: REG ER FAX #: [phone] RAD NO: Page 2 Signed Report Patient Name: TASHI MOSQUERA Unit No: [id number] EXAMS: CPT CODE: [id number] [place] L[place] 58320 <Continued> [facility] NAME: TASHI MOSQUERA Radiology Department PHYS: Cipriano Michelle III, MD [address] : 1995 AGE: 25 SEX: F [place], [place] [address] LOC: AnupTONY PHONE #: [phone] EXAM DATE: 09/28/2020 STATUS: REG ER FAX #: [phone] RAD NO: Page 3 Signed ReportURINALYSIS [id number] 05:32:00 Test Item Value Reference Range Interpretation [...] SEEN Specimen Comment: JOSE ROSALES SAMPLE: CLEAN [id number] 05:29:00 Test Item Value Reference Range Interpretation Comments GLUBED (test code = GLUBED) 91 mg/dL 65-110 N [id number] 14:54:00 Test Item Value Reference Range Interpretation Comments GLUBED (test code = GLUBED) 95 mg/dL 65-110 N [id number] 14:54:00 Test Item Value Reference Range Interpretation Comments GLUBED (test code = GLUBED) 124 mg/dL 65-110 H [id number] 14:54:00 Test Item Value Reference Range Interpretation Comments GLUBED (test code = GLUBED) 131 mg/dL 65-110 H COMPREHENSIVE METABOLIC [id number] 12:46:00 Test Item Value Reference Range Interpretation [...] 44 units/L 46-116 L code = ALKP) [id number] 12:46:00 Test Item Value Reference Range Interpretation Comments PHOSPHOROUS (test code = PHOS) 1.6 mg/dL 2.5-4.9 L [id number] 12:46:00 Test Item Value Reference Range Interpretation Comments MAGNESIUM (test code = MAG) 1.7 mg/dL 1.8-2.4 L CBC W/AUTO [id number] 12:04:00 Test Item Value Reference Range Interpretation [...] REQUIRED (test NORMAL NORMAL code = PLTMR) [id number] 10:33:00 Test Item Value Reference Range Interpretation Comments GLUBED (test code = GLUBED) 136 mg/dL 65-110 H [id number] 10:33:00 Test Item Value Reference Range Interpretation Comments GLUBED (test code = GLUBED) 180 mg/dL 65-110 H COMPREHENSIVE METABOLIC [id number] 07:48:00 Test Item Value Reference Range Interpretation [...] 42 units/L 46-116 L code = ALKP) [id number] 07:48:00 Test Item Value Reference Range Interpretation Comments PHOSPHOROUS (test code = PHOS) 1.6 mg/dL 2.5-4.9 L [id number] 07:48:00 Test Item Value Reference Range Interpretation Comments MAGNESIUM (test code = MAG) 1.6 mg/dL 1.8-2.4 L [id number] 07:06:00 Test Item Value Reference Range Interpretation Comments GLUBED (test code = GLUBED) 184 mg/dL 65-110 H [id number] 06:27:00 Test Item Value Reference Range Interpretation Comments GLUBED (test code = GLUBED) 187 mg/dL 65-110 H COMPREHENSIVE METABOLIC [id number] 05:46:00 Test Item Value Reference Range Interpretation [...] 42 units/L 46-116 L code = ALKP) [id number] 05:46:00 Test Item Value Reference Range Interpretation Comments MAGNESIUM (test code = MAG) 1.6 mg/dL 1.8-2.4 L CBC W/AUTO [id number] 05:34:00 Test Item Value Reference Range Interpretation [...] REQUIRED (test NORMAL NORMAL code = PLTMR) [id number] 05:22:00 Test Item Value Reference Range Interpretation Comments GLUBED (test code = GLUBED) 208 mg/dL 65-110 H [id number] 04:21:00 Test Item Value Reference Range Interpretation Comments GLUBED (test code = GLUBED) 210 mg/dL 65-110 H [id number] 03:22:00 Test Item Value Reference Range Interpretation Comments GLUBED (test code = GLUBED) 229 mg/dL 65-110 H [id number] 02:22:00 Test Item Value Reference Range Interpretation Comments GLUBED (test code = GLUBED) 247 mg/dL 65-110 H [id number] 01:34:00 Test Item Value Reference Range Interpretation Comments GLUBED (test code = GLUBED) 261 mg/dL 65-110 H [id number] 00:21:00 Test Item Value Reference Range Interpretation Comments GLUBED (test code = GLUBED) 276 mg/dL 65-110 H [id number] 23:23:00 Test Item Value Reference Range Interpretation Comments GLUBED (test code = GLUBED) 282 mg/dL 65-110 H [id number] 22:29:00 Test Item Value Reference Range Interpretation Comments GLUBED (test code = GLUBED) 193 mg/dL 65-110 H [id number] 22:29:00 Test Item Value Reference Range Interpretation Comments GLUBED (test code = GLUBED) 172 mg/dL 65-110 H [id number] 22:29:00 Test Item Value Reference Range Interpretation Comments GLUBED (test code = GLUBED) 123 mg/dL 65-110 H [id number] 22:29:00 Test Item Value Reference Range Interpretation Comments GLUBED (test code = GLUBED) 158 mg/dL 65-110 H [id number] 22:29:00 Test Item Value Reference Range Interpretation Comments GLUBED (test code = GLUBED) 192 mg/dL 65-110 H COMPREHENSIVE METABOLIC [id number] 21:00:00 Test Item Value Reference Range Interpretation [...] units/L 46-116 TOTAL (test code = ALKP) [id number] 21:00:00 Test Item Value Reference Range Interpretation Comments PHOSPHOROUS (test code = PHOS) 1.8 mg/dL 2.5-4.9 L [id number] 21:00:00 Test Item Value Reference Range Interpretation Comments MAGNESIUM (test code = MAG) 1.4 mg/dL 1.8-2.4 L OSMOLALITY [id number] 20:51:00 Test Item Value Reference Range Interpretation Comments OSMOLALITY SERUM (test code = 296 mOsm/kg 275-295 H OSMO) OSMOLALITY [id number] 20:51:00 Test Item Value Reference Range Interpretation [...] be considered for these patients. GLYCOSYLATED HEMOGLOBIN [id number] 20:49:00 Test Item Value Reference Range Interpretation [...] H (test code = MBG) CBC W/AUTO [id number] 19:25:00 Test Item Value Reference Range Interpretation [...] NORMAL NORMAL code = PLTMR) VBG IONIZED [id number] 19:21:00 Test Item Value Reference Range Interpretation Comments VBG IONIZED CALCIUM (test code = 1.06 mmol/L 0.9-1.29 N ICAL/VBG) COMPREHENSIVE METABOLIC [id number] 19:09:00 Test Item Value Reference Range Interpretation Comments SODIUM (test code = 135 mEq/L 135-145 N NA) POTASSIUM (test code 3.9 mEq/L 3.5-5.0 N = K) CHLORIDE (test code 104 mEq/L 100-115 N = CL) CARBON DIOXIDE (test 10 mEq/L 22-31 LL RESULTS VERIFIED BY code = CO2) REPEAT ANALYSIS RESULTS CALLED TO PATRICK CISNEROS BACK & CONFIRME D? .BY F.LAB.TTT 09/26. ANION GAP (test code 24.20 10-20 H = GAP) GLUCOSE (test code [...] 46-116 N TOTAL (test code = ALKP) [id number] 19:09:00 Test Item Value Reference Range Interpretation Comments PHOSPHOROUS (test code = PHOS) 1.9 mg/dL 2.5-4.9 L [id number] 19:09:00 Test Item Value Reference Range Interpretation Comments MAGNESIUM (test code = MAG) 1.5 mg/dL 1.8-2.4 L [id number] 17:36:00 Test Item Value Reference Range Interpretation Comments GLUBED (test code = GLUBED) 212 mg/dL 65-110 H UR PROTEIN/CREATININE [id number] 17:25:00 Test Item Value Reference Range Interpretation Comments UR PROTEIN RANDOM 56.6 mg/dL (test code = PROTU) UR CREATININE 11.1 mg/dL RANDOM (test code = CREATU) PROTEIN/CREATININE 5090.0 <200 H RESULTS V ERIFIED BY RATIO (test code = mg/gcrea REPEAT AN ALYSISRESULTS P/CRATIO) CALLED TO SASHA READ BACK & CONFIRME D? YESBY F.LAB.TTT 09/26 1725 COMPREHENSIVE METABOLIC [id number] 17:24:00 Test Item Value Reference Range Interpretation Comments SODIUM (test code = 136 mEq/L 135-145 N NA) POTASSIUM (test code 4.7 mEq/L 3.5-5.0 N = K) CHLORIDE (test code 103 mEq/L 100-115 N = CL) CARBON DIOXIDE (test 11 mEq/L 22-31 LL RESULTS VERIFIED BY code = CO2) REPEAT ANALYSIS RESULTS CALLED TO SASHA READ BACK & CONFIRME D? YES.BY F.LAB.TT T 09/26/20 172. ANION GAP (test code 26.90 10-20 H [...] 46-116 N TOTAL (test code = ALKP) [id number] 17:24:00 Test Item Value Reference Range Interpretation Comments PHOSPHOROUS (test code = PHOS) 2.9 mg/dL 2.5-4.9 N [id number] 17:24:00 Test Item Value Reference Range Interpretation Comments AMYLASE (test code = CHELSIE) 77 units/L 30-110 N [id number] 17:24:00 Test Item Value Reference Range Interpretation Comments MAGNESIUM (test code = MAG) 1.7 mg/dL 1.8-2.4 L C REACTIVE [id number] 17:08:00 Test Item Value Reference Range Interpretation Comments C REACTIVE PROTEIN (test code = 0.2 mg/dL 0.6-1.2 L CRP) URINALYSIS [id number] 17:00:00 Test Item Value Reference Range Interpretation [...] = MUCU) RARE NONE SEEN CBC W/AUTO [id number] 16:53:00 Test Item Value Reference Range Interpretation [...] NORMAL NORMAL code = PLTMR) COMPREHENSIVE METABOLIC [id number] 13:57:00 Test Item Value Reference Range Interpretation [...] 48 units/L 46-116 N code = ALKP) [id number] 13:57:00 Test Item Value Reference Range Interpretation Comments LIPASE (test code = LIP) 85 units/L 73-393 N ACETONE [id number] 13:57:00 Test Item Value Reference Range Interpretation Comments ACETONE QUAL (test code = ACETNQL) NEGATIVE NEGATIVE BETA [id number] 13:57:00 Test Item Value Reference Range Interpretation Comments BETA HYDROBUTYRATE (test 2.2 mg/dL () Ref erence Range:All code = BETHYD) Ages (fasting ): 0.2 - 2.8Performed At: [facility] [address] [place] [id number] Blanton MD Ph:[phone] [id number] 13:24:00 Test Item Value Reference Range Interpretation Comments GLUBED (test code = GLUBED) 169 mg/dL 65-110 H [id number] 11:17:00 Test Item Value Reference Range Interpretation Comments GLUBED (test code = GLUBED) 91 mg/dL 65-110 N [id number] 07:59:00 Test Item Value Reference Range Interpretation Comments GLUBED (test code = GLUBED) 162 mg/dL 65-110 H - US PREG UT [id number] 04:23:00 Patient Name: TASHI MOSQUERA Unit No: [id number] EXAMS: CPT CODE: [id number] US PREG UT TRANSVAGINAL 47139 STUDY: - US LTD, - US PREG UT TRANSVAGINAL 08/05/2020 12:59 AM Ordering Physician: Shira Arredondo MD Patient Name: TASHI MOSQUERA MR: [id number] : 1995; Age: 25 years y/o Female [...] Not performed Small free pelvic fluid. [facility] NAME: TASHI MOSQUERA Radiology Department PHYS: Natalie Foley MD [address] : 1995 AGE: 25 SEX: L[place]ar[place] [address] LOC: F.2624 A PHONE #: [phone] EXAM DATE: 08/05/2020 STATUS: ADM IN FAX #: [phone] RAD NO: Page 1 Signed Report (CONTINUED) Patient Name: TASHI MOSQUERA Unit No: [id number] EXAMS: CPT CODE: [id number] US PREG UT TRANSVAGINAL 63797 <Continued> IMPRESSION: Single liveintrauterine at 19 weeks [...] CC: Natalie Garcia MD Technologist: Charlotte Kidd [facility] Probe: [id number] Trnscrbd D/ (042) [id number] Orig Print D/T: S: 08/05/2020 (0426) [facility] NAME: TASHI MOSQUERA Radiology Department PHYS: Natalie Foley MD [address] : 1995 AGE: 25 [facility] [address] LOC: F.2624 A PHONE #: [phone] EXAM DATE: 08/05/2020 STATUS: ADM IN FAX #: [phone] RAD NO: Page 2 Signed Report Patient Name: TASHI MOSQUERA Unit No: [id number] EXAMS: CPT CODE: [id number] US PREG UT TRANSVAGINAL 88082 <Continued> [facility] NAME: [facility] Radiology Department PHYS: Natalie Foley MD [address] : 1995 AGE: 25 SEX: F [place] [address] LOC: Anup2624 Claude PHONE #: [phone] EXAM DATE: 08/05/2020 STATUS: ADM IN FAX #: [phone] RAD NO: Page 3 Signed Report- US [id number] 04:23:00 Patient Name: TASHI MOQSUERA Unit No: [id number] EXAMS: CPT CODE: [id number] US LTD 92350 STUDY: - US LTD, - US PREG UT TRANSVAGINAL 08/05/2020 12:59 AM Ordering Physician: Shira Arredondo MD Patient Name: TASHI MOSQUERA MR: [id number] : 1995; Age: 25 years y/o Female [...] Not performed Small free pelvic fluid. [facility] NAME: [facility] Radiology Department PHYS: Shira Truong MD [address] : 1995 AGE: 25 SEX: L[place]ar[place] [address] LOC: F.2624 A PHONE #: [phone] EXAM DATE: 08/05/2020 STATUS: ADM IN FAX #: [phone] RAD NO: Page 1 Signed Report (CONTINUED) Patient Name: TASHI MOSQUERA Unit No: [id number] EXAMS: CPT CODE: [id number] US LTD 28895 <Continued> IMPRESSION: Single liveintrauterine at 19 weeks [...] Orig Print D/T: S: 08/05/2020 (0426) [facility] NAME: TASHI MOSQUERA Radiology Department PHYS: Shira Truong MD [address] : 1995 AGE: 25 SEX: Lulu Acevedo [address] LOC: F.2624 A PHONE #: [phone] EXAM DATE: 08/05/2020 STATUS: ADM IN FAX #: [phone] RAD NO: Page 2 Signed Report Patient Name: TASHI MOSQUERA Unit No: [id number] EXAMS: CPT CODE: [id number] US LTD [address]132 <Continued> [facility] Rad[facility] Department PHYS: Shira Truong MD [address] : 1995 AGE: 25 SEX: F [place] [address] LOC: Bora4 Claude PHONE #: [phone] EXAM DATE: STATUS: ADM IN FAX #: [phone] RAD NO: Page 3 Signed ReportARTERIAL BLOOD [id number] 03:03:00 Test Item Value Reference Range Interpretation [...] FIO2 (test code = FIO2A) 21.0 % PaO2/[id number] 03:03:00 Test Item Value Reference Range Interpretation Comments PaO2/FiO2 (test code = NRR9AAZ4) mm/Hg [id number] 03:03:00 Test Item Value Reference Range Interpretation Comments GLUCOSE (test code = GLU/ABG) 201 MG/DL 60-110 H ARTERIAL BLOOD [id number] 03:03:00 Test Item Value Reference Range Interpretation [...] FIO2 (test code = FIO2A) 21.0 % PaO2/[id number] 03:03:00 Test Item Value Reference Range Interpretation Comments PaO2/FiO2 (test code = [id number]) 471.40 mm/Hg [id number] 03:03:00 Test Item Value Reference Range Interpretation Comments GLUCOSE (test code = GLU/ABG) 201 MG/DL 60-110 H COMPREHENSIVE METABOLIC [id number] 02:23:00 Test Item Value Reference Range Interpretation [...] 48 units/L 46-116 N code = ALKP) [id number] 02:23:00 Test Item Value Reference Range Interpretation Comments LIPASE (test code = LIP) 85 units/L 73-393 N ACETONE [id number] 02:23:00 Test Item Value Reference Range Interpretation Comments ACETONE QUAL (test code = ACETNQL) NEGATIVE NEGATIVE BETA [id number] 02:23:00 Test Item Value Reference Range Interpretation Comments BETA HYDROBUTYRATE (test code = BETHYD) COOXIMETRY [id number] 02:14:00 Test Item Value Reference Range Interpretation Comments HEMOGLOBIN (test code = HGB/ABG) 13.0 g/dL 12-16 N HEMATOCRIT (test code = HCT/ABG) 38 % 37-47 N METHEMOGLOBIN (test code = METHGB) 0.6 % 0.0-1.5 N VENOUS BLOOD [id number] 02:14:00 Test Item Value Reference Range Interpretation [...] code = 21.0 % FIO2V) CBC W/AUTO [id number] 02:00:00 Test Item Value Reference Range Interpretation [...] = PLTMR) UA RFLX MICR CULT IF [id number] 01:47:00 Test Item Value Reference Range Interpretation [...] Suprapubic PainSpecimen Description: CLEAN CATCH COMPREHENSIVE METABOLIC [id number] 01:47:00 Test Item Value Reference Range Interpretation [...] 48 units/L 46-116 N code = ALKP) [id number] 01:47:00 Test Item Value Reference Range Interpretation Comments LIPASE (test code = LIP) 85 units/L 73-393 N ACETONE [id number] 01:47:00 Test Item Value Reference Range Interpretation Comments ACETONE QUAL (test code = ACETNQL) NEGATIVE BETA [id number] 01:47:00 Test Item Value Reference Range Interpretation Comments BETA HYDROBUTYRATE (test code = BETHYD) ISLET CELL AB [id number] 14:36:00 Test Item Value Reference Range Interpretation Comments ISLET CELL AB Refer to individual AUTOVERIFICATION (test Islet Cell Ab code = 2556) and/or Islet Cell Ab Titer results. BLOOD [id number] 00:00:00 Test Item Value Reference Range Interpretation Comments CULTURE (BEAKER) (test No growth in 5 days code = 1095) BLOOD [id number] 00:00:00 Test Item Value Reference Range Interpretation Comments CULTURE (BEAKER) (test No growth in 5 days code = 1095) POCT-GLUCOSE [id number] 12:04:00 Test Item Value Reference Range Interpretation Comments POC-GLUCOSE METER 178 mg/dL 70-110 H TESTED AT [facility] 67 (BEAKER) (test code = JOHANNY James [place] 1538) [address] POCT-GLUCOSE [id number] 07:46:00 Test Item Value Reference Range Interpretation Comments POC-GLUCOSE METER 210 mg/dL 70-110 H TESTED AT [place] [address] ([facility] (test code = JOHANNY James [place] 1538) [address] CBC (HEMOGRAM ONLY)2018-08-23 06:39:00 Test Item Value [...] 0-0 (BEAKER) (test code = 413) POCT-GLUCOSE [id number] 22:06:00 Test Item Value Reference Range Interpretation Comments POC-GLUCOSE METER 157 mg/dL 70-110 H TESTED AT [place] [address] ([facility]) (test code = JOHANNY James [place] 1538) [address] POCT-GLUCOSE [id number] 17:54:00 Test Item Value Reference Range Interpretation Comments POC-GLUCOSE METER 223 mg/dL 70-110 H TESTED AT [place] [address] ([facility]) (test code = JOHANNY James [place] 1538) [address] POCT-GLUCOSE [id number] 12:06:00 Test Item Value Reference Range Interpretation Comments POC-GLUCOSE METER 227 mg/dL 70-110 H TESTED AT [place] [address] ([facility]) (test code = JOHANNY James [place] 1538) [address] POCT-GLUCOSE [id number] 07:46:00 Test Item Value Reference Range Interpretation Comments POC-GLUCOSE METER 237 mg/dL 70-110 H TESTED AT [place] [address] ([facility]) (test code = JOHANNY James [facility] 1538) [address] CBC (HEMOGRAM ONLY)2018-08-22 07:12:00 Test Item Value [...] 0-0 (BEAKER) (test code = 413) POCT-GLUCOSE [id number] 21:37:00 Test Item Value Reference Range Interpretation Comments POC-GLUCOSE METER 264 mg/dL 70-110 H TESTED AT [place] [address] (BEAKER) (test code = JOHANNY James [facility] 1538) [address] POCT-GLUCOSE [id number] 17:52:00 Test Item Value Reference Range Interpretation Comments POC-GLUCOSE METER 273 mg/dL 70-110 H TESTED AT [place] [address] (BEAKER) (test code = JOHANNY James [facility] 1538) [address] POCT-GLUCOSE [id number] 11:57:00 Test Item Value Reference Range Interpretation Comments POC-GLUCOSE METER 316 mg/dL 70-110 H Notified R Rubén JOHANSEN/TESTED (BEAKER) (test code = AT [facility] [address] [place] [address] 1538) [facility] 7[address] 0 POCT-GLUCOSE [id number] 07:58:00 Test Item Value Reference Range Interpretation Comments POC-GLUCOSE METER 246 mg/dL 70-110 H TESTED AT [place] [address] (BEAKER) (test code = JOHANNY James [facility] 1538) [address] [id number] 07:27:00 Test Item Value Reference Range Interpretation Comments PHOSPHORUS (BEAKER) (test code = 3.3 mg/dL 2.3-4.7 604) [id number] 07:27:00 Test Item Value Reference Range Interpretation Comments MAGNESIUM (BEAKER) (test code = 2.1 mg/dL 1.6-2.6 627) COMPREHENSIVE METABOLIC [id number] 07:27:00 Test Item Value Reference Range Interpretation [...] NOT APPLICABLE FOR DIALYSIS PATIEN TS. CALCIUM, [id number] 07:03:00 Test Item Value Reference Range Interpretation Comments CALCIUM IONIZED (BEAKER) (test 1.12 mmol/L 1.12-1.27 code = 698) PH, BLOOD (BEAKER) (test code = 7.46 1810) CBC W/PLT COUNT & AUTO [id number] 06:38:00 Test Item Value Reference Range Interpretation [...] PERCENT (BEAKER) (test code = 2801) POCT-GLUCOSE [id number] 22:26:00 Test Item Value Reference Range Interpretation Comments POC-GLUCOSE METER 325 mg/dL 70-110 H Notified R Rubén JOHANSEN/TESTED (BEAKER) (test code = AT [facility] [address] 1538) [place] [address] POCT-GLUCOSE [id number] 21:46:00 Test Item Value Reference Range Interpretation Comments POC-GLUCOSE METER 312 mg/dL 70-110 H TESTED AT [facility] 6720 ([facility]) (test code = JOHANNY James [facility] 1538) [address] BASIC METABOLIC [id number] 21:39:00 Test Item Value Reference Range Interpretation [...] S NOT APPLICABLE FOR DIALYSIS PATIEN TS. [id number] 19:06:00 Test Item Value Reference Range Interpretation Comments PHOSPHORUS (BEAKER) (test code = 3.3 mg/dL 2.3-4.7 604) [id number] 19:06:00 Test Item Value Reference Range Interpretation Comments MAGNESIUM (BEAKER) (test code = 2.2 mg/dL 1.6-2.6 627) [id number] 17:17:00 Test Item Value Reference Range Interpretation Comments PHOSPHORUS (BEAKER) (test code = 3.3 mg/dL 2.3-4.7 604) [id number] 17:17:00 Test Item Value Reference Range Interpretation Comments MAGNESIUM (BEAKER) (test code = 2.3 mg/dL 1.6-2.6 627) BASIC METABOLIC [id number] 17:17:00 Test Item Value Reference Range Interpretation Comments SODIUM (BEAKER) 146 meq/L 136-145 H (test code = 381) POTASSIUM (BEAKER) 3.5 meq/L 3.5-5.1 (test code = 379) CHLORIDE (BEAKER) 115 meq/L 98-107 H (test code = 382) CO2 (BEAKER) (test 22 meq/L 22-29 code = 355) BLOOD UREA NITROGEN 6 mg/dL 7-21 L ([facility]) (test code = 354) CREATININE ([facility]) 0.66 mg/dL 0.57-1.25 (test code = 358) GLUCOSE RANDOM 77 mg/dL 70-105 ([facility]) (test code = 652) CALCIUM ([facility]) 8.9 mg/dL 8.4-10.2 (test code = 697) EGFR ([facility]) (test 110 mL/min/1.73 ESTIM ATED GFR IS code = 1092) sq m NOT ACCURATE CREATININE CLEARANCE IN PREDICTING GLOMERULAR FILTRATION RATE . ESTIMATED GFR I S NOT APPLICABLE FOR DIALYSIS PATIEN TS. POCT-GLUCOSE [id number] 17:15:00 Test Item Value Reference Range Interpretation Comments POC-GLUCOSE METER 86 mg/dL 70-110 TESTED AT [place] [address] ([facility]) (test code = [facility] [address] 1538) POCT-GLUCOSE [id number] 15:29:00 Test Item Value Reference Range Interpretation Comments POC-GLUCOSE METER 176 mg/dL 70-110 H TESTED AT [place] [address] ([facility]) (test code = [facility] 1538) [address] POCT-GLUCOSE [id number] 14:05:00 Test Item Value Reference Range Interpretation Comments POC-GLUCOSE METER 198 mg/dL 70-110 H TESTED AT [place] [address] ([facility]) (test code = [facility] 1538) [address] POCT-GLUCOSE [id number] 13:02:00 Test Item Value Reference Range Interpretation Comments POC-GLUCOSE METER 148 mg/dL 70-110 H TESTED AT [place] [address] ([facility]) (test code = [facility] 1538) [address] POCT-GLUCOSE [id number] 12:23:00 Test Item Value Reference Range Interpretation Comments POC-GLUCOSE METER 170 mg/dL 70-110 H TESTED AT [place] [address] ([facility]) (test code = [facility] 1538) [address] [id number] 11:33:00 Test Item Value Reference Range Interpretation Comments PHOSPHORUS ([facility]) (test code = 3.1 mg/dL 2.3-4.7 604) [id number] 11:33:00 Test Item Value Reference Range Interpretation Comments MAGNESIUM (BEAKER) (test code = 1.8 mg/dL 1.6-2.6 627) BASIC METABOLIC [id number] 11:33:00 Test Item Value Reference Range Interpretation [...] NOT APPLICABLE FOR DIALYSIS PATIEN TS. KETONE, [id number] 11:26:00 Test Item Value Reference Range Interpretation Comments KETONES, BLOOD (BEAKER) (test code 1.4 mmol/L <0.4 H = 1103) POCT-GLUCOSE [id number] 11:05:00 Test Item Value Reference Range Interpretation Comments POC-GLUCOSE METER 206 mg/dL 70-110 H TESTED AT [place] [address] ([facility]) (test code = [facility] 1538) [address] POCT-GLUCOSE [id number] 10:15:00 Test Item Value Reference Range Interpretation Comments POC-GLUCOSE METER 245 mg/dL 70-110 H TESTED AT [place] [address] ([facility]) (test code = [facility] 1538) [address] POCT-GLUCOSE [id number] 09:02:00 Test Item Value Reference Range Interpretation Comments POC-GLUCOSE METER 205 mg/dL 70-110 H TESTED AT [place] [address] ([facility]) (test code = [facility] 1538) [address] POCT-GLUCOSE [id number] 07:54:00 Test Item Value Reference Range Interpretation Comments POC-GLUCOSE METER 206 mg/dL 70-110 H TESTED AT [facility] 6720 (BEAKER) (test code = JOHANNY James [facility] 1538) [address] POCT-GLUCOSE [id number] 07:54:00 Test Item Value Reference Range Interpretation Comments POC-GLUCOSE METER 217 mg/dL 70-110 H TESTED AT [facility] 6720 (BEAKER) (test code = JOHANNY James [facility] 1538) [address] KETONE, [id number] 07:25:00 Test Item Value Reference Range Interpretation Comments KETONES, BLOOD (BEAKER) (test code 4.3 mmol/L <0.4 H = 1103) [id number] 07:00:00 Test Item Value Reference Range Interpretation Comments PHOSPHORUS (BEAKER) (test code = 2.5 mg/dL 2.3-4.7 604) [id number] 07:00:00 Test Item Value Reference Range Interpretation Comments MAGNESIUM (BEAKER) (test code = 2.0 mg/dL 1.6-2.6 627) BASIC METABOLIC [id number] 07:00:00 Test Item Value Reference Range Interpretation [...] NOT APPLICABLE FOR DIALYSIS PATIEN TS. POCT-GLUCOSE [id number] 06:13:00 Test Item Value Reference Range Interpretation Comments POC-GLUCOSE METER 223 mg/dL 70-110 H TESTED AT [place] [address] ([facility]) ([facility] = [facility] 1538) [address] POCT-GLUCOSE [id number] 05:20:00 Test Item Value Reference Range Interpretation Comments POC-GLUCOSE METER 224 mg/dL 70-110 H TESTED AT [place] [address] ([facility]) (test code = [facility] 1538) 13751 POCT-GLUCOSE [id number] 04:08:00 Test Item Value Reference Range Interpretation Comments POC-GLUCOSE METER 165 mg/dL 70-110 H TESTED AT [place] [address] ([facility]) (test code = [facility] 1538) [address] POCT-GLUCOSE [id number] 03:25:00 Test Item Value Reference Range Interpretation Comments POC-GLUCOSE METER 130 mg/dL 70-110 H TESTED AT [place] [address] ([facility]) (test code = [facility] 1538) [address] [id number] 02:50:00 Test Item Value Reference Range Interpretation Comments PROCALCITONIN (BEAKER) (test code 2.96 ng/mL <0.05 H = 3036) SEPSIS RISK (ng/mL)Low: 0.05-0.50Intermediate: 0.51-2.00High: >=2.01KETONE, [id number] 02:15:00 Test Item Value Reference Range Interpretation Comments KETONES, BLOOD (BEAKER) (test code 3.1 mmol/L <0.4 H = 1103) POCT-GLUCOSE [id number] 02:13:00 Test Item Value Reference Range Interpretation Comments POC-GLUCOSE METER 153 mg/dL 70-110 H TESTED AT [place] [address] ([facility]) (test code = [facility] 1538) [address] [id number] 02:01:00 Test Item Value Reference Range Interpretation Comments PHOSPHORUS (BEAKER) (test code = 2.4 mg/dL 2.3-4.7 604) [id number] 02:01:00 Test Item Value Reference Range Interpretation Comments MAGNESIUM (BEAKER) (test code = 2.1 mg/dL 1.6-2.6 627) BASIC METABOLIC [id number] 02:01:00 Test Item Value Reference Range Interpretation [...] S NOT APPLICABLE FOR DIALYSIS PATIEN TS. [id number] 02:01:00 Test Item Value Reference Range Interpretation Comments AMYLASE (BEAKER) (test code = 349) 129 U/L 25-125 H [id number] 02:01:00 Test Item Value Reference Range Interpretation [...] 753) MEAN CORPUSCULAR HEMOGLOBIN 30.6 pg 25.6-32.2 ([facility]) (test code = 751) MEAN CORPUSCULAR HEMOGLOBIN CONC 35.5 GM/DL 32.2-35.5 ([facility]) (test code = 752) RED CELL DISTRIBUTION WIDTH 14.2 % 11.7-14.4 ([facility]) (test code = 412) PLATELET COUNT ([facility]) (test 244 K/CU MM 150-450 code = 756) MEAN PLATELET VOLUME ([facility]) 9.8 fL 9.4-12.3 (test code = 754) NUCLEATED RED BLOOD CELLS 0 /100 WBC 0-0 ([facility]) (test code = 413) POCT-GLUCOSE [id number] 01:05:00 Test Item Value Reference Range Interpretation Comments POC-GLUCOSE METER 171 mg/dL 70-110 H TESTED AT [place] [address] ([facility]) (test code = JOHANNY James [facility] 1538) [address] POCT-GLUCOSE [id number] 00:32:00 Test Item Value Reference Range Interpretation Comments POC-GLUCOSE METER 171 mg/dL 70-110 H TESTED AT [place] [address] ([facility]) (test code = JOHANNY James [facility] 1538) [address] POCT-GLUCOSE [id number] 23:15:00 Test Item Value Reference Range Interpretation Comments POC-GLUCOSE METER 177 mg/dL 70-110 H TESTED AT [place] [address] ([facility]) (test code = JOHANNY James [facility] 1538) [address] POCT-GLUCOSE [id number] 22:16:00 Test Item Value Reference Range Interpretation Comments POC-GLUCOSE METER 170 mg/dL 70-110 H TESTED AT [place] [address] ([facility]) (test code = JOHANNY James [place] 1538) [address] POCT-GLUCOSE [id number] 22:16:00 Test Item Value Reference Range Interpretation Comments POC-GLUCOSE METER 191 mg/dL 70-110 H TESTED AT [place] [address] ([facility]) (test code = JOHANNY James [place] 1538) [address] KETONE, [id number] 20:49:00 Test Item Value Reference Range Interpretation Comments KETONES, BLOOD ([facility]) (test code 3.2 mmol/L <0.4 H = 1103) [id number] 20:46:00 Test Item Value Reference Range Interpretation Comments PHOSPHORUS (BEAKER) (test code = 2.2 mg/dL 2.3-4.7 L 604) [id number] 20:46:00 Test Item Value Reference Range Interpretation Comments MAGNESIUM (BEAKER) (test code = 2.2 mg/dL 1.6-2.6 627) BASIC METABOLIC [id number] 20:46:00 Test Item Value Reference Range Interpretation [...] APPLICABLE FOR DIALYSIS PATIEN TS. BLOOD GAS, [id number] 20:29:00 Test Item Value Reference Range Interpretation [...] 37.0 C (test code = 1818) FIO2 [facility] (test code = 1819) 21.0 % POCT-GLUCOSE [id number] 20:09:00 Test Item Value Reference Range Interpretation Comments POC-GLUCOSE METER 219 mg/dL 70-110 H TESTED AT [facility] 67[address] ([facility] (test code = JOHANNY James [place] 1538) [id number] POCT-GLUCOSE [id number] 18:58:00 Test Item Value Reference Range Interpretation Comments POC-GLUCOSE METER 248 mg/dL 70-110 H TESTED AT [facility] 67[address] ([facility]) (test code = JOHANNY James [place] 1538) [address] CT, CTANGIO [id number] 18:36:00Addendum BeginsREPORT STATUS:A Not mentioned in the body of the report, thereis bilateral temporomandibular joint dislocation, with the mandibular condyles lying anterior and superior to the mandibular eminences. Signed: Arpit Smith Verified Date/Time: 08/19/201818:36:40 Reading Location: [facility] Radiology Reading RoomAddendum EndsFINAL REPORT CTA [...] mass effect. 2. Unremarkable intracranial CTA. Signed: SeArpit thomas Verified Date/Time: 08/19/2018 13:33:21 Reading Location: [facility] Radiology Reading Room RAD, MANDIBLE, LESS [...] Smith Verified Date/Time: 08/19/2018 18:35:55 Reading Location: [facility] Radiology Reading Room POCT-GLUCOSE [id number] 18:22:00 Test Item Value Reference Range Interpretation Comments POC-GLUCOSE METER 222 mg/dL 70-110 H TESTED AT [place] [address] ([facility]) (test code = [facility] 1538) [address] POCT-GLUCOSE [id number] 16:58:00 Test Item Value Reference Range Interpretation Comments POC-GLUCOSE METER 277 mg/dL 70-110 H TESTED AT [place] [address] ([facility]) (test code = [facility] 1538) [address] [id number] 16:12:00 Test Item Value Reference Range Interpretation Comments PHOSPHORUS (BEAKER) (test code = 2.9 mg/dL 2.3-4.7 604) [id number] 16:12:00 Test Item Value Reference Range Interpretation Comments MAGNESIUM (BEAKER) (test code = 1.7 mg/dL 1.6-2.6 627) BASIC METABOLIC [id number] 16:12:00 Test Item Value Reference Range Interpretation Comments SODIUM (BEAKER) 146 meq/L 136-145 H (test code = 381) POTASSIUM (BEAKER) 2.8 meq/L 3.5-5.1 L (test code = 379) CHLORIDE (BEAKER) 115 meq/L 98-107 H (test code = 382) CO2 (BEAKER) (test 14 meq/L 22-29 L code = 355) BLOOD UREA NITROGEN 8 mg/dL 7-21 (BEAKER) (test code = 354) CREATININE (BEAKER) 1.06 mg/dL 0.57-1.25 (test code = 358) GLUCOSE RANDOM 290 mg/dL 70-105 H (BEAKER) (test code = 652) CALCIUM (BEAKER) 9.1 mg/dL 8.4-10.2 (test code = 697) EGFR (BEAKER) (test 64 mL/min/1.73 ESTIMA OLGA GFR IS code = 1092) sq m NOT ACCURATE CREATININE CLEARANCE IN PREDICTING GLOMERULAR FILTRATION RATE . ESTIMATED GFR I S NOT APPLICABLE FOR DIALYSIS PATIEN TS. KETONE, [id number] 15:46:00 Test Item Value Reference Range Interpretation Comments KETONES, BLOOD (BEAKER) (test code 6.0 mmol/L <0.4 H = 1103) POCT-GLUCOSE [id number] 15:18:00 Test Item Value Reference Range Interpretation Comments POC-GLUCOSE METER 322 mg/dL 70-110 H Will Repea t Test/[facility]ED [facility] (test code = AT [facility] 67[address] [facility] 1538) [facility] 7[address] 0 POCT-GLUCOSE [id number] 14:27:00 Test Item Value Reference Range Interpretation Comments POC-GLUCOSE METER 232 mg/dL 70-110 H TESTED AT [place] [address] ([facility]) (test code = [facility] Erika [facility] 1538) [address] POCT-GLUCOSE [id number] 13:05:00 Test Item Value Reference Range Interpretation Comments POC-GLUCOSE METER 240 mg/dL 70-110 H TESTED AT [place] [address] ([facility]) (test code = [facility] Erika [facility] 1538) [address] POCT-GLUCOSE [id number] 12:16:00 Test Item Value Reference Range Interpretation Comments POC-GLUCOSE METER 201 mg/dL 70-110 H TESTED AT [place] [address] ([facility]) (test code = JOHANNY James [facility] 1538) [address] CT, [id number] 11:46:00FINAL REPORT INDICATION:23-year-old female with abdominal pain. [...] MDReport Verified Date/Time: 08/19/2018 11:46:24 Reading Location: [facility] Diagnostic Imaging Reading Room - [place] [address] BASIC METABOLIC PANEL 2018-08-19 11:17:00 Test Item [...] S NOT APPLICABLE FOR DIALYSIS PATIEN TS. [id number] 11:12:00 Test Item Value Reference Range Interpretation Comments PHOSPHORUS (BEAKER) (test code = 3.8 mg/dL 2.3-4.7 604) POCT-GLUCOSE [id number] 10:49:00 Test Item Value Reference Range Interpretation Comments POC-GLUCOSE METER 172 mg/dL 70-110 H TESTED AT [facility] 6720 (BEAKER) (test code = JOHANNY James [place] 1538) [address] KETONE, [id number] 10:37:00 Test Item Value Reference Range Interpretation Comments KETONES, BLOOD (BEAKER) (test code 4.2 mmol/L <0.4 H = 1103) HEMOGLOBIN [id number] 10:29:00 Test Item Value Reference Range Interpretation Comments HEMOGLOBIN A1C (BEAKER) (test code = 15.3 % 4.3-6.1 H 368) BLOOD GAS, [id number] 10:23:00 Test Item Value Reference Range Interpretation [...] (test code = 1819) 21.0 % POCT-GLUCOSE [id number] 10:02:00 Test Item Value Reference Range Interpretation Comments POC-GLUCOSE METER 145 mg/dL 70-110 H TESTED AT [facility] 6720 (BEAKER) (test code = JOHANNY James [place] 1538) [address] POCT-GLUCOSE [id number] 09:04:00 Test Item Value Reference Range Interpretation Comments POC-GLUCOSE METER 168 mg/dL 70-110 H TESTED AT [facility] 6720 (BEAKER) (test code = JOHANNY James [place] 1538) [address] POCT-GLUCOSE [id number] 07:47:00 Test Item Value Reference Range Interpretation Comments POC-GLUCOSE METER 187 mg/dL 70-110 H TESTED AT [facility] 6720 (BEAKER) (test code = JOHANNY James [place] 1538) [address] BLOOD GAS, [id number] 07:14:00 Test Item Value Reference Range Interpretation [...] code = 1819) 21.0 % BASIC METABOLIC [id number] 07:13:00 Test Item Value Reference Range Interpretation [...] S NOT APPLICABLE FOR DIALYSIS PATIEN TS. [id number] 07:11:00 Test Item Value Reference Range Interpretation Comments MAGNESIUM (BEAKER) (test code = 2.0 mg/dL 1.6-2.6 627) POCT-GLUCOSE [id number] 07:09:00 Test Item Value Reference Range Interpretation Comments POC-GLUCOSE METER 183 mg/dL 70-110 H TESTED AT [place] [address] ([facility]) (test code = [facility] 1538) [address] POCT-GLUCOSE [id number] 06:19:00 Test Item Value Reference Range Interpretation Comments POC-GLUCOSE METER 185 mg/dL 70-110 H TESTED AT [place] [address] ([facility]) (test code = [facility] 1538) [address] POCT-GLUCOSE [id number] 05:05:00 Test Item Value Reference Range Interpretation Comments POC-GLUCOSE METER 223 mg/dL 70-110 H TESTED AT [place] [address] ([facility]) (test code = [facility] 1538) [address] POCT-GLUCOSE [id number] 04:17:00 Test Item Value Reference Range Interpretation Comments POC-GLUCOSE METER 235 mg/dL 70-110 H TESTED AT [place] [address] ([facility]) (test code = [facility] 1538) [address] [id number] 04:07:00 Test Item Value Reference Range Interpretation Comments PROCALCITONIN (BEAKER) (test code 6.19 ng/mL <0.05 H = 3036) SEPSIS RISK (ng/mL)Low: 0.05-0.50Intermediate: 0.51-2.00High: >=[id number] 04:03:00 Test Item Value Reference Range Interpretation Comments PHOSPHORUS (BEAKER) (test code = 1.4 mg/dL 2.3-4.7 LL 604) BASIC METABOLIC [id number] 04:00:00 Test Item Value Reference Range Interpretation [...] APPLICABLE FOR DIALYSIS PATIEN TS. BASIC METABOLIC [id number] 04:00:00 Test Item Value Reference Range Interpretation [...] APPLICABLE FOR DIALYSIS PATIEN TS. BLOOD GAS, [id number] 03:52:00 Test Item Value Reference Range Interpretation [...] 70 pg/mL 0-100 (test code = 700) [id number] 03:43:00 Test Item Value Reference Range Interpretation Comments MAGNESIUM (BEAKER) (test code = 2.1 mg/dL 1.6-2.6 627) [id number] 03:43:00 Test Item Value Reference Range Interpretation Comments AMYLASE (BEAKER) (test code = 349) 566 U/L 25-125 H [id number] 03:43:00 Test Item Value Reference Range Interpretation Comments LIPASE (BEAKER) (test code = 749) 124 U/L 8-78 H C-REACTIVE [id number] 03:43:00 Test Item Value Reference Range Interpretation Comments C-REACTIVE PROTEIN (BEAKER) (test 5.56 mg/dL 0.00-0.50 H code = 676) KETONE, [id number] 03:23:00 Test Item Value Reference Range Interpretation [...] 37.7 % 34.1-44.9 411) MEAN CORPUSCULAR VOLUME (AKER) 84.5 fL 79.4-94.8 (test code = 753) MEAN CORPUSCULAR HEMOGLOBIN 30.7 pg 25.6-32.2 (AKER) (test code = 751) MEAN CORPUSCULAR HEMOGLOBIN CONC 36.3 GM/DL 32.2-35.5 H (AKER) (test code = 752) RED CELL DISTRIBUTION WIDTH 13.2 % 11.7-14.4 (AKER) (test code = 412) PLATELET COUNT ([facility]) (test 329 K/CU MM 150-450 code = 756) MEAN PLATELET VOLUME (AKER) 10.4 fL 9.4-12.3 (test code = 754) NUCLEATED RED BLOOD CELLS 0 /100 WBC 0-0 ([facility]) (test code = 413) POCT-GLUCOSE [id number] 03:17:00 Test Item Value Reference Range Interpretation Comments POC-GLUCOSE METER 251 mg/dL 70-110 H TESTED AT [place] [address] ([facility]) (test code = JOHANNY James [facility] 1538) [address] OSMOLALITY, [id number] 02:24:00 Test Item Value Reference Range Interpretation Comments OSMOLALITY URINE ([facility]) (test 599 mOsm/kg 40-1400 code = 614) POCT-GLUCOSE [id number] 02:16:00 Test Item Value Reference Range Interpretation Comments POC-GLUCOSE METER 288 mg/dL 70-110 H TESTED AT [place] [address] ([facility]) (test code = [place] 1538) [address] KETONE, [id number] 01:49:00 Test Item Value Reference Range Interpretation Comments KETONES, BLOOD ([facility]) (test code 6.1 mmol/L <0.4 H = 1103) POCT-GLUCOSE [id number] 01:13:00 Test Item Value Reference Range Interpretation Comments POC-GLUCOSE METER 254 mg/dL 70-110 H TESTED AT [place] [address] ([facility]) (test code = JOHANNY James [place] 1538) [address] BLOOD GAS, [id number] 01:10:00 Test Item Value Reference Range Interpretation Comments PH VENOUS ([facility]) (test code = 7.41 7.32-7.42 701) PCO2 [...] (test code = 1819) 21.0 % POCT-GLUCOSE [id number] 00:05:00 Test Item Value Reference Range Interpretation Comments POC-GLUCOSE METER 288 mg/dL 70-110 H TESTED AT [facility] 6720 (BEAKER) (test code = [place] 1538) [address] BASIC METABOLIC [id number] 23:16:00 Test Item Value Reference Range Interpretation [...] NOT APPLICABLE FOR DIALYSIS PATIEN TS. OSMOLALITY, [id number] 23:03:00 Test Item Value Reference Range Interpretation Comments OSMOLALITY, SERUM (BEAKER) (test 342 mOsm/kg 275-295 H code = 615) [id number] 23:02:00 Test Item Value Reference Range Interpretation Comments PHOSPHORUS (BEAKER) (test code = 1.1 mg/dL 2.3-4.7 LL 604) [id number] 23:00:00 Test Item Value Reference Range Interpretation Comments MAGNESIUM (BEAKER) (test code = 2.1 mg/dL 1.6-2.6 627) CALCIUM, [id number] 22:47:00 Test Item Value Reference Range Interpretation [...] (BEAKER) (test code = 413) BLOOD GAS, [id number] 22:46:00 Test Item Value Reference Range Interpretation [...] (test code = 1819) 21.0 % KETONE, [id number] 22:46:00 Test Item Value Reference Range Interpretation Comments KETONES, BLOOD (BEAKER) (test code 5.6 mmol/L <0.4 H = 1103) RAD, CHEST, 1 VIEW, NON [id number] 22:44:00Reason for exam:->central line Should this be [...] findings: None. Sig freeman: JR Chela, Geo [facility] Verified Date/Time: 08/18/2018 22:44:52 Reading Location: [address] Reading Room POCT-GLUCOSE [id number] 22:34:00 Test Item Value Reference Range Interpretation Comments POC-GLUCOSE METER 259 mg/dL 70-110 H TESTED AT [facility] 6720 (BEAKER) (test code = [place] 1538) [address] CHLORIDE, RANDOM [id number] 22:28:00 Test Item Value Reference Range Interpretation Comments CHLORIDE URINE (BEAKER) (test code = 88 meq/L 682) Reference Range: No NormalsCREATININE, RANDOM [id number] 22:28:00 Test Item Value Reference Range Interpretation Comments CREATININE URINE (BEAKER) (test 12.5 mg/dL code = 375) Reference Range: No NormalsSODIUM, RANDOM [id number] 22:28:00 Test Item Value Reference Range Interpretation Comments SODIUM URINE (BEAKER) (test code = 143 meq/L 243) Reference Range: No NormalsUREA NITROGEN, RANDOM [id number] 22:28:00 Test Item Value Reference Range Interpretation Comments UREA NITROGEN URINE (BEAKER) (test 154 mg/dL code = 538) Reference Range: No NormalsOSMOLALITY, [id number] 21:53:00 Test Item Value Reference Range Interpretation Comments OSMOLALITY URINE (BEAKER) (test 546 mOsm/kg 40-1400 code = 614) BASIC METABOLIC [id number] 21:07:00 Test Item Value Reference Range Interpretation [...] S NOT APPLICABLE FOR DIALYSIS PATIEN TS. [id number] 21:07:00 Test Item Value Reference Range Interpretation Comments PHOSPHORUS (BEAKER) < mg/dL 2.3-4.7 LL Specimen slightly (test code = 604) hemolyzed POCT-GLUCOSE [id number] 21:06:00 Test Item Value Reference Range Interpretation Comments POC-GLUCOSE METER 381 mg/dL 70-110 H TESTED AT [facility] 6720 (BEAKER) (test code = JOHANNY James [place] 1538) [address] POCT-GLUCOSE [id number] 21:06:00 Test Item Value Reference Range Interpretation Comments POC-GLUCOSE METER 437 mg/dL 70-110 HH TESTED AT [facility] 6720 ([facility]) (test code = JOHANNY James [place] 1538) [address] [id number] 21:05:00 Test Item Value Reference Range Interpretation Comments LIPASE (BEAKER) (test code = 749) 138 U/L 8-78 H [id number] 21:05:00 Test Item Value Reference Range Interpretation Comments AMYLASE (BEAKER) (test code = 349) 669 U/L 25-125 H [id number] 21:04:00 Test Item Value Reference Range Interpretation [...] is 2.5-3.5 for patients with mechanical heart valves.[id number] 21:04:00 Test Item Value Reference Range Interpretation Comments MAGNESIUM (BEAKER) 2.2 mg/dL 1.6-2.6 Specimen slightly (test code = 627) hemolyzed BLOOD GAS, [id number] 21:00:00 Test Item Value Reference Range Interpretation [...] (test code = 1819) 21.0 % HEMOGLOBIN [id number] 21:00:00 Test Item Value Reference Range Interpretation Comments HEMOGLOBIN A1C (BEAKER) (test code = 15.7 % 4.3-6.1 H 368) CT BRAIN WITHOUT IV CONTRAST - [id number] 20:04:00Reason for exam:- >r/o bleedFINAL REPORT CT [...] hemorrhage or mass effect. Signed: Arpit Smith Verified Date/Time: 08/18/2018 20:04:50 Reading Location: [facility] Radiology Reading Room POCT- GLUCOSE [id number] 19:21:00 Test Item Value Reference Range Interpretation Comments POC-GLUCOSE METER 425 mg/dL 70-110 HH TESTED AT [facility] 6720 ([facility]) (test code = JOHANNY James [place] 1538) [address] [id number] 18:52:00 Test Item Value Reference Range Interpretation Comments PHOSPHORUS (BEAKER) (test code = 604) < mg/dL 2.3-4.7 LL If last glucose was less than 500, may do bedside glucose instead of serum glucose.RAPID DRUG SCREEN, [id number] 18:52:00 Test Item Value Reference Range Interpretation [...] situations. Chain of custody not maintained. Some tumg-hue-pwdwxfj medications, as well as adulterants, may cause inaccurate results. Clinical correlation should be applied. A more comprehensive drug screen or confirmation of a detected drug may be performed upon request. BASIC METABOLIC [id number] 18:51:00 Test Item Value Reference Range Interpretation [...] may do bedside glucose instead of serum glucose.[id number] 18:48:00 Test Item Value Reference Range Interpretation Comments MAGNESIUM (BEAKER) (test code = 2.1 mg/dL 1.6-2.6 627) If last glucose was less than 500, may do bedside glucose instead of serum glucose.KETONE, [id number] 18:45:00 Test Item Value Reference Range Interpretation Comments KETONES, BLOOD (BEAKER) (test code 5.2 mmol/L <0.4 H = 1103) [id number] 18:43:00 Test Item Value Reference Range Interpretation [...] 514) SOURCE(BEAKER) (test code = 2795) SCREEN, [id number] 18:35:00 Test Item Value Reference Range Interpretation Comments TEST URINE (BEAKER) (test Negative code = 583) BLOOD GAS, [id number] 18:32:00 Test Item Value Reference Range Interpretation [...] (BEAKER) (test code = 1819) 21.0 % [id number] 18:16:00 Test Item Value Reference Range Interpretation Comments FIBRINOGEN LEVEL 331 mg/dl 225-434 Sample clot olga, (BEAKER) (test code = notifi ed MURTAZA lu 658) #[id number] for recollect. [id number] 18:16:00 Test Item Value Reference Range Interpretation Comments D-DIMER QUANTITATIVE 0.64 MG/L FEU <0.50 H Sample is clotted, (BEAKER) (test code = notifi ed RN badge 671) #[id number] for recollect.This is a corrected result. Previou [...] of thrombosis is within 95-100% range.POCT- GLUCOSE [id number] 18:05:00 Test Item Value Reference Range Interpretation Comments POC-GLUCOSE METER > mg/dL 70-110 HH OUTSIDE ME ASURING (BEAKER) (test code RANGETES OLGA AT [facility] 6720 = 1538) [facility] [address] [id number] 18:01:00 Test Item Value Reference Range Interpretation Comments PROCALCITONIN (BEAKER) (test code 3.19 ng/mL <0.05 H = 3036) SEPSIS RISK (ng/mL)Low: 0.05-0.50Intermediate: 0.51-2.00High: >=2.01CREATINE KINASE (CK), TOTAL AND [id number] 17:50:00 Test Item Value Reference Range Interpretation Comments CREATINE KINASE TOTAL (BEAKER) 54 U/L 29-200 (test code = 380) CREATINE KINASE-MB (BEAKER) (test 1.6 ng/mL 0.0-6.6 code = 750) CREATINE KINASE-MB INDEX (BEAKER) 3.0 % (test code = 395) CK-MB Reference Range:<6.7 Normal6.7-10.0 Borderline>10.0 AbnormalTROPONIN [id number] 17:50:00 Test Item Value Reference Range Interpretation [...] 0-100 (test code = 700) COMPREHENSIVE METABOLIC [id number] 17:48:00 Test Item Value Reference Range Interpretation [...] I S NOT APPLICABLE FOR DIALYSIS PATIEN NICOLE. [id number] 17:47:00 Test Item Value Reference Range Interpretation Comments LIPASE (BEAKER) (test code = 749) 329 U/L 8-78 H [id number] 17:47:00 Test Item Value Reference Range Interpretation Comments AMYLASE (BEAKER) (test code = 349) 563 U/L 25-125 H LACTATE DEHYDROGENASE (LDH)2018-08-18 17:47:00 Test Item Value Reference Range Interpretation Comments LACTATE DEHYDROGENASE (BEAKER) (test 255 U/L 125-220 H code = 635) C-REACTIVE [id number] 17:47:00 Test Item Value Reference Range Interpretation Comments C-REACTIVE PROTEIN (BEAKER) (test 1.35 mg/dL 0.00-0.50 H code = 676) LACTIC ACID, VENOUS, WHOLE [id number] 17:41:00 Test Item Value Reference Range Interpretation Comments LACTATE BLOOD VENOUS 2.0 mmol/L 0.5-2.2 Specime n markedly (2) (BEAKER) (test hemolyzed code = 2872) Effective 03/06/2016: Units/Reference Range ChangeNew: 0.5-2.2 mmol/L Previous: 5-20 mg/dLPOCT-LACTIC ACID, [id number] 17:13:00 Test Item Value Reference Range Interpretation Comments POC-LACTIC ACID, 1.9 mmol/L 0.4-1.3 H TESTED AT [facility] 6720 ARTERIAL (BEAKER) [facility] [place] (test code = 2804) [address] POCT-BLOOD GASES, [id number] 17:13:00 Test Item Value Reference Range Interpretation Comments TEMP, CELSIUS-POC 37.0 (BEAKER) (test code = 1834) FIO2-POC (BEAKER) TESTED AT [facility] 6720 (test code = 1835) [facility] [place] [address] PH, ARTERIAL-POC 7.069 7.350-7.450 LL (BEAKER) (test code = 1836) PCO2, ARTERIAL-POC 10.5 mm Hg 35.0-45.0 LL (BEAKER) (test code = 1837) PO2, ARTERIAL-POC 144.0 mm Hg 80.0-90.0 H (BEAKER) (test code = 1838) SO2, ARTERIAL-POC 98.0 % 96.0-97.0 H ([facility]) (test code = 1839) HCO3, ARTERIAL-POC 3.0 meq/L 21.0-29.0 LL ([facility]) (test code = 1840) BASE EXCESS, -27.0 meq/L -2.0-3.0 L ARTERIAL-POC ([facility]) (test code = 1841) [id number] 17:13:00 Test Item Value Reference Range Interpretation Comments POC-SODIUM ([facility]) 150 meq/L 135-148 H TESTED [place] [address] (test code = 1542) [facility] [address] [id number] 17:13:00 Test Item Value Reference Range Interpretation Comments POC-POTASSIUM 2.4 meq/L 3.6-5.5 LL TESTED AT [place] [address] ([facility]) (test code [facility] [address] = 1540) [id number] 17:13:00 Test Item Value Reference Range Interpretation Comments POC-GLUCOSE ([facility]) 685 mg/dL 70-110 HH TESTED AT [place] [address] (test code = 1855) [facility] [address] POCT-CALCIUM [id number] 17:13:00 Test Item Value Reference Range Interpretation Comments POC-CALCIUM IONIZED 1.24 mmol/L 1.12-1.27 TESTED [place] [address] ([facility]) (test code = [facility] 1536) [address] [id number] 17:13:00 Test Item Value Reference Range Interpretation Comments POC-HEMATOCRIT 40 % 36-45 TESTED AT [place] [address] ([facility]) (test code = [facility] [address] 1856) [id number] 17:13:00 Test Item Value Reference Range Interpretation Comments POC-HEMOGLOBIN 13.6 g/dL 12.0-15.0 TESTED AT [place] [address] ([facility]) (test code [facility] = 1856) 536[address]SZKJGJ AT [place] [address] [facility] [address] POCT-GLUCOSE [id number] 17:07:00 Test Item Value Reference Range Interpretation Comments POC-GLUCOSE METER > mg/dL 70-110 HH OUTSIDE RI ASURING ([facility]) (test code RANGETES OLGA AT [facility] 6720 = 5508) [facility] [address]
[2021-12-12] MEDS ORDERED: ONDANSETRON 4 MG/2 ML VIAL ONE (13:49)
[2021-12-12] MEDS ORDERED: NA CHLORIDE 0.9% 1,000 ML ONE ×3 (13:50→15:54)
[2021-12-12 14:19] LABS: Arterial Blood Carboxyhemoglob 0.9 % (0-1.5); Blood Gas Oxyhemoglobin 94.4 % (94-97); Blood O2 Saturation 96.6 % (92-98.5)
[2021-12-12 14:24] LABS: Absolute Lymphocytes (CBC) 4.1 K/uL (0.7-4.9); Hematocrit 52.3 % (36.0-45.0); Lymphocytes % 16.5 % (15.3-44.8); MPV 8.9 fL (7.6-11.3); RBC Red Blood Cell Count 5.28 M/uL (3.86-4.86)
[2021-12-12] MEDS ORDERED: SODIUM BICARB 50 MEQ/50ML VIAL ONE (14:24)
[2021-12-12 14:25] LABS: BUN Blood Urea Nitrogen 22 mg/dL (7-18); Glucose Level 696 mg/dL (74-106); Sodium Level 133 mmol/L (136-145)
[2021-12-12 14:27] LABS: Potassium 4.4 mmol/L (3.5-5.1)
[2021-12-12 14:29] LABS: Bicarbonate 6 mmol/L (21-32)
[2021-12-12] MEDS ORDERED: PROMETHAZINE INJ 25 MG/ML AMP ONE (14:32)
--- NOTE | 2021-12-12 14:40 | EDPHYS ---
Physician Documentation [facility] Name: Rosalie Parekh Age: 26 yrs Sex: Female : 1995 Arrival Date: 12/12/2021 Time: 13:25 Bed 19 Private MD: ED Physician Ralph Silva HPI: 12/12 14:42 This 26 yrs old Female presents to ER via Wheelchair with complaints of High Blood kb Sugar, Vomiting. 14:42 The patient or guardian reports hyperglycemia. Onset: The symptoms/episode kb began/occurred yesterday. Associated signs and symptoms: Pertinent positives: nausea, vomiting. Current symptoms: In the emergency department the patient's symptoms are unchanged from the initial presentation. The patient has experienced similar episodes in the past, several times. The patient has not recently seen a physician. Pt states she has been unable to check her sugar in a few days because she lost her meter. States she has had nausea and vomiting since yesterday and thinks her sugar is high. Historical: - Allergies: 13:45 No Known Allergies; bp - Home Meds: 13:39 Lantus Sub-Q [Active]; Novolog subcutaneous Sub-Q [Active]; ab2 - PMHx: 13:39 Anxiety; Diabetes - NIDDM; ab2 - Immunization history:: Adult Immunizations up to date. - Social history:: Smoking status: Patient denies any tobacco usage or history of. ROS: 14:41 Constitutional: Negative for fever, chills, and weight loss. kb 14:41 Abdomen/GI: Positive for nausea and vomiting, Negative for abdominal pain. 14:41 Endocrine: Positive for high sugar. 14:41 All other systems are negative. Exam: 14:41 Constitutional: This is a well developed, well nourished patient who is awake, alert, kb and in no acute distress. Head/Face: Normocephalic, atraumatic. ENT: Moist Mucous membranes Cardiovascular: Regular rate and rhythm with a normal S1 and S2. No gallops, murmurs, or rubs. No pulse deficits. Abdomen/GI: Soft, non-tender. No distention Skin: Warm, dry with normal turgor. Normal color. MS/ Extremity: Pulses equal, no cyanosis. Neurovascular intact. Full, normal range of motion. Neuro: Awake and alert, GCS 15, oriented to person, place, time, and situation. Moves all extremities. Normal gait. Psych: Awake, alert, with orientation to person, place and time. Behavior, mood, and affect are within normal limits. 14:41 Respiratory: the patient does not display signs of respiratory distress, Respirations: tachypnea, kussmals breathing, Breath sounds: are clear throughout. Vital Signs: 13:37 BP 123 / 93; Pulse 122; Resp 26; Temp 97.2; Pulse Ox 100% ; Weight 70.31 kg; Height 5 ab2 ft. 2 in. (157.48 cm); 14:30 BP 114 / 68; Pulse 118; Resp 24; Pulse Ox 100% ; bp 15:30 BP 98 / 63; Pulse 124; Resp 24; Pulse Ox 100% ; bp 16:43 BP 108 / 86; Pulse 128; Resp 16; Pulse Ox 99% ; bp 13:37 Body Mass Index 28.35 (70.31 kg, 157.48 cm) ab2 MDM: 13:37 Patient medically screened. kb 14:35 Data reviewed: vital signs, nurses notes. Data interpreted: Pulse oximetry: on room air kb is 100 %. Interpretation: normal. 14:38 Counseling: I had a detailed discussion with the patient and/or guardian regarding: the kb historical points, exam findings, and any diagnostic results supporting the discharge/admit diagnosis, lab results, the need for further work-up and treatment in the hospital. Physician consultation: Ruben Cook MD was contacted at 14:38, regarding admission, to the ICU, patient's condition, and will see patient in ED, shortly. 12/12 13:42 Order name: CBC with Diff kb 12/12 13:42 Order name: Basic Metabolic Panel; Complete Time: 14:31 kb 12/12 13:42 Order name: Acetone, Serum; Complete Time: 14:31 kb 12/12 13:44 Order name: ABG kb 12/12 13:45 Order name: ABG Arterial Blood Gas; Complete Time: 14:24 EDMS 12/12 13:49 Order name: Glucose, Ancillary Testing; Complete Time: 14:03 EDMS 12/12 14:03 Order name: COVID-19/FLU A+B (Document "Date of Onset" if Symptomatic) kb 12/12 14:03 Order name: COVID-19/FLU A+B; Complete Time: 16:06 EDMS 12/12 14:32 Order name: Blood Culture Adult (2) kb 12/12 14:32 Order name: Urine Culture kb 12/12 14:32 Order name: Urine Microscopic Only; Complete Time: 15:29 kb 12/12 14:57 Order name: Urine Dipstick-Ancillary; Complete Time: 15:07 EDMS 12/12 14:58 Order name: Urine --Ancillary (enter results); Complete Time: 15:07 bd 12/12 15:54 Order name: Basic Metabolic Panel EDMS 12/12 15:54 Order name: Basic Metabolic Panel EDMS 12/12 15:54 Order name: Basic Metabolic Panel EDMS 12/12 15:54 Order name: Basic Metabolic Panel EDMS 12/12 15:54 Order name: CBC with Automated Diff EDMS 12/12 15:54 Order name: CBC with Automated Diff EDMS 12/12 15:54 Order name: CBC with Automated Diff EDMS 12/12 15:54 Order name: CBC with Automated Diff EDMS 12/12 15:54 Order name: Comprehensive Metabolic Panel EDMS 12/12 15:54 Order name: Comprehensive Metabolic Panel EDMS 12/12 15:54 Order name: Magnesium EDMS 12/12 15:54 Order name: Magnesium EDMS 12/12 15:54 Order name: Magnesium EDMS 12/12 15:54 Order name: Magnesium EDMS 12/12 15:54 Order name: Phosphorus EDMS 12/12 15:54 Order name: Phosphorus EDMS 12/12 15:54 Order name: Phosphorus EDMS 12/12 13:42 Order name: IV Start; Complete Time: 13:45 kb 12/12 13:42 Order name: Urine Dipstick-Ancillary (obtain specimen); Complete Time: 15:53 kb 12/12 13:42 Order name: EKG; Complete Time: 13:42 kb 12/12 13:42 Order name: EKG - Nurse/Tech; Complete Time: 15:19 kb 12/12 15:54 Order name: CONS Physician Consult EDMS 12/12 15:54 Order name: NPO EDMS 12/12 15:54 Order name: Phosphorus EDMS 12/12 16:33 Order name: Glucose, Ancillary Testing; Complete Time: 16:37 EDMS 12/12 17:26 Order name: Glucose, Ancillary Testing EDMS 12/12 18:25 Order name: Glucose, Ancillary Testing EDMS 12/12 19:25 Order name: Glucose, Ancillary Testing EDMS 12/12 19:52 Order name: Manual Differential EDMS 12/12 20:30 Order name: Glucose, Ancillary Testing EDMS 12/12 22:11 Order name: Glucose, Ancillary Testing EDMS Administered Medications: 13:53 Drug: NS 0.9% 1000 ml Route: IV; Rate: 1000 ml; Site: right antecubital; bp 16:28 Follow up: IV Status: Completed infusion; IV Intake: 1000ml bp 13:53 Drug: Zofran (Ondansetron) 4 mg Route: IVP; Site: right antecubital; bp 14:40 Follow up: Response: No adverse reaction bp 14:15 Drug: NS 0.9% 1000 ml Route: IV; Rate: 1000 ml; Site: right antecubital; bp 15:38 Follow up: IV Status: Completed infusion; IV Intake: 1000ml bp 14:15 Drug: Sodium Bicarbonate 1 amp Route: IVP; Site: right antecubital; bp 15:38 Follow up: Response: No adverse reaction bp 14:30 Drug: Phenergan (promethazine) 12.5 mg Route: IVP; Site: right antecubital; bp 15:39 Follow up: Response: Nausea is decreased bp 16:15 Drug: Insulin Drip - (Insulin Regular Human 100 units, NS 0.9% 100 ml) {Co-Signature: bp ap3 (Nidia Pacheco RN).} Route: IV; Rate: calculated rate; Site: right femoral; 16:15 Drug: NS 0.9% 1000 ml Route: IV; Rate: 150 ml/hr; Site: right antecubital; bp Disposition: 12/13 08:25 Co-signature as Attending Physician, Ralph Silva MD I agree with the assessment and wanda plan of care. Disposition Summary: 12/12/21 14:39 Hospitalization Ordered Hospitalization Status: Inpatient Admission debra Provider: Ruben Cook Location: Intensive Care Unit kb Condition: Fair kb Problem: new kb Symptoms: are unchanged kb Bed/Room Type: Standard Room Assignment: 1-(12/12/21 21:34) cg Diagnosis - Diabetes mellitus due to underlying condition with ketoacidosis without coma kb Forms: - Medication Reconciliation Form kb - SBAR form Signatures: Dispatcher [employer] Zabrina Kelly, INFORMATION TECHNOLOGY ASSOCIATE-C INFORMATION TECHNOLOGY ASSOCIATE-Ralph Rojas MD MD cha Garcia, Cindy, RN RN Mauricio Murguia RN RN Rufus Ngo RN ap3 Corrections: (The following items were deleted from the chart) 12/12 21:34 14:39 kb
--- NOTE | 2021-12-12 14:40 | ER ---
Nurse's Notes [facility] Name: Rosalie Parekh Age: 26 yrs Sex: Female : 1995 Arrival Date: 12/12/2021 Time: 13:25 Bed 19 Private MD: Diagnosis: Diabetes mellitus due to underlying condition with ketoacidosis without coma Presentation: 12/12 13:37 Chief complaint: Patient states: N/V since yesterday; states blood sugar is 'high'. ab2 FSBG in triage read 'HI'. Ebola Screen: Patient negative for fever greater than or equal to 101.5 degrees Fahrenheit, and additional compatible Ebola Virus Disease symptoms. Initial Sepsis Screen: Does the patient meet any 2 criteria? RR > 20 per min. HR > 90 bpm. Yes Does the patient have a suspected source of infection? No. Patient's initial sepsis screen is negative. Risk Assessment: Do you want to hurt yourself or someone else? Patient reports no desire to harm self or others. Onset of symptoms was December 11, 2021. 13:37 Method Of Arrival: Wheelchair ab2 13:37 Acuity: TANYA 3 ab2 Triage Assessment: 13:39 General: Appears uncomfortable, Behavior is cooperative. GI: Reports nausea, vomiting. ab2 13:45 General: Appears distressed, uncomfortable, Behavior is cooperative, appropriate for bp age, anxious. Pain: Complains of pain in GENERALIZED. EENT: No deficits noted. Neuro: Level of Consciousness is awake, alert, obeys commands, Oriented to person, place, time, situation, Appropriate for age. Cardiovascular: Rhythm is sinus tachycardia. Respiratory: Airway is patent Respiratory effort is even, unlabored, Respiratory pattern is regular, symmetrical. GI: Reports nausea, vomiting. : No signs and/or symptoms were reported regarding the genitourinary system. Derm: No deficits noted. Musculoskeletal: No deficits noted. Historical: - Allergies: 13:45 No Known Allergies; bp - Home Meds: 13:39 Lantus Sub-Q [Active]; Novolog subcutaneous Sub-Q [Active]; ab2 - PMHx: 13:39 Anxiety; Diabetes - NIDDM; ab2 - Immunization history:: Adult Immunizations up to date. - Social history:: Smoking status: Patient denies any tobacco usage or history of. Screenin:45 Abuse screen: Denies threats or abuse. Denies injuries from another. Nutritional bp screening: No deficits noted. Tuberculosis screening: No symptoms or risk factors identified. Fall Risk None identified. Assessment: 13:45 General: SEE TRIAGE NOTE. GI: Abdomen is non-distended. bp 15:33 Reassessment: No changes from previously documented assessment. Patient and/or family bp updated on plan of care and expected duration. Pain level reassessed. PT SEEN BY HOSPITALIST. ADMIT IN PROCESS. 16:30 Reassessment: PT ICU ADMIT. Q1HR BGL STARTED, INITIAL REPORT "HI". bp Vital Signs: 13:37 BP 123 / 93; Pulse 122; Resp 26; Temp 97.2; Pulse Ox 100% ; Weight 70.31 kg; Height 5 ab2 ft. 2 in. (157.48 cm); 14:30 BP 114 / 68; Pulse 118; Resp 24; Pulse Ox 100% ; bp 15:30 BP 98 / 63; Pulse 124; Resp 24; Pulse Ox 100% ; bp 16:43 BP 108 / 86; Pulse 128; Resp 16; Pulse Ox 99% ; bp 13:37 Body Mass Index 28.35 (70.31 kg, 157.48 cm) ab2 ED Course: 13:25 Patient arrived in ED. as 13:28 Zabrina Almanza FNP-C is [facility]. kb 13:29 Isai Narayanan MD is Attending Physician. kb 13:29 Ralph Silva MD is Attending Physician. kb 13:37 Mauricio Gill, RN is Primary Nurse. bp 13:39 Triage completed. ab2 13:39 Arm band placed on. ab2 13:45 Patient has correct armband on for positive identification. Bed in low position. Call bp light in reach. Side rails up X2. 13:45 Inserted saline lock: 20 gauge in right antecubital area, using aseptic technique. bp Blood collected. 14:39 Ruben Cook MD is Hospitalizing Provider. kb 14:39 COVID-19/FLU A+B (Document "Date of Onset" if Symptomatic) Sent. bp 19:03 Primary Nurse role handed off by Mauricio Gill, RN mw2 19:14 Radha Heredia, MURTAZA is Primary Nurse. vc1 22:43 No provider procedures requiring assistance completed. Patient admitted, IV remains in vc1 place. Administered Medications: 13:53 Drug: NS 0.9% 1000 ml Route: IV; Rate: 1000 ml; Site: right antecubital; bp 16:28 Follow up: IV Status: Completed infusion; IV Intake: 1000ml bp 13:53 Drug: Zofran (Ondansetron) 4 mg Route: IVP; Site: right antecubital; bp 14:40 Follow up: Response: No adverse reaction bp 14:15 Drug: NS 0.9% 1000 ml Route: IV; Rate: 1000 ml; Site: right antecubital; bp 15:38 Follow up: IV Status: Completed infusion; IV Intake: 1000ml bp 14:15 Drug: Sodium Bicarbonate 1 amp Route: IVP; Site: right antecubital; bp 15:38 Follow up: Response: No adverse reaction bp 14:30 Drug: Phenergan (promethazine) 12.5 mg Route: IVP; Site: right antecubital; bp 15:39 Follow up: Response: Nausea is decreased bp 16:15 Drug: Insulin Drip - (Insulin Regular Human 100 units, NS 0.9% 100 ml) {Co-Signature: bp ap3 (Nidia Pacheco RN).} Route: IV; Rate: calculated rate; Site: right femoral; 16:15 Drug: NS 0.9% 1000 ml Route: IV; Rate: 150 ml/hr; Site: right antecubital; bp Intake: 15:38 IV: 1000ml; Total: 1000ml. bp 16:28 IV: 1000ml; Total: 2000ml. bp 16:39 PO: 750ml; Total: 2750ml. ke1 Output: 16:39 Urine: 1400ml; Total: 1400ml. ke1 Outcome: 14:39 Decision to Hospitalize by Provider. kb 22:43 Admitted to ICU accompanied by nurse, accompanied by tech, via stretcher, room 1-, with vc1 chart, Report called to Rock 22:43 Condition: good 22:43 Instructed on the need for admit. 22:44 Patient left the ED. vc1 Signatures: Zabrina Almanza FNP-C FNP-Ckb Martinez, Amelia as Peltier, Brian RN RN bp Kushal Jack mw2 Rufus Silverman2 Radha Heredia RN RN vc1 Zulema Trevizo, RN RN ke1 Nidia Pacheco RN ap3
[2021-12-12 14:58] LABS: Urine Blood 2+ (Negative); Urine Glucose 2+ (Negative); Urine Protein 1+ (Negative)
[2021-12-12] MEDS ORDERED: INSULIN -REGULAR HUMAN 100 UNIT in NA CHLORIDE 0.9% 100 ML IV SCH ×2 (15:00→16:00)
[2021-12-12 15:25] LABS: Urine Bacteria <20 /HPF (<20); Urine RBC <5 /HPF (NONE SEEN)
[2021-12-12] MEDS ORDERED: ALBUTEROL 2.5 MG/3 ML NEB SOL NEB PRN (15:48)
[2021-12-12] MEDS ORDERED: ONDANSETRON 4 MG/2 ML VIAL IV PRN (15:48)
--- NOTE | 2021-12-12 15:59 | P.HP ---
Certification for Inpatient With expected LOS: >2 Midnights Patient will require the following post-hospital care: None Practitioner: I am a practitioner with admitting privileges, knowledge of patient current condition, hospital course, and medical plan of care. Services: Services provided to patient in accordance with Admission requirements found in Title 42 Section 412.3 of the Code of Federal Regulations Patient History Date of Service: 12/12/21 Reason for admission: Abdominal pain History of Present Illness: 26-year-old patient with history of type I DM, recurrent admission for hyperglycemia presented now because of abdominal pain, nausea or vomiting. She describes abdominal pain as crampy. She admits to poor p.o. intake since the last 2 days. She denies any diarrhea. She states she has run out of her glucose testing strips. On presentation she was noted with marked elevated glucose of greater than 696. She had marked metabolic acidosis with pH of 6.9 serum bicarb of 6 as well as anion gap of 26. She was given IV bicarb dose loading as well as 2 L normal saline bolus. She has been started on insulin drip now. She has been admitted for DKA. She states she was still taking her insulin at home although unable to adequately describe what dose she was getting. Allergies No Known Allergies Allergy (Verified 04/09/21 06:56) Home Medications: Insulin Aspart [Novolog Flexpen] See Protocol SQ SEECOM #1 box 03/01/21 Insulin Glargine Human [Lantus*] 30 units SQ DAILY 04/10/21 - Past Medical/Surgical History Diabetic: Yes -: DM -: C section - Family History Mother -: Diabetes - Social History Smoking Status: Current every day smoker Counseled patient to stop smoking for: less than 10 minutes Smoking therapy provided: Yes Patient receptive to therapy: Yes Alcohol use: No CD- Drugs: No Caffeine use: Yes Place of Residence: Home Review of Systems 10-point ROS is otherwise unremarkable Physical Examination - Physical Exam General: Alert, In no apparent distress, Mild distress HEENT: Atraumatic, Normocephalic, PERRLA, Other Neck: Supple, 2+ carotid pulse no bruit Respiratory: Clear to auscultation bilaterally, Normal air movement Cardiovascular: No edema, Normal pulses, Regular rate/rhythm, Normal S1 S2 Gastrointestinal: Normal bowel sounds, Soft and benign, Non-distended, No ascites, No tenderness Musculoskeletal: No clubbing, No swelling Neurological: Normal gait, Normal speech, Normal strength at 5/5 x4 extr, Normal tone - Studies Laboratory Data (last 24 hrs) 12/12/21 13:56: Sodium 133 L, Potassium 4.4, BUN 22 H, Creatinine 1.37 H, Glucose 696 H* 12/12/21 13:56: WBC 24.90 H*, Hgb 16.0 H, Hct 52.3 H, Plt Count 469 H Assessment and Plan - Problems (Diagnosis) (1) DKA (diabetic ketoacidoses) Current Visit: No Status: Acute Qualifiers: (2) Tobacco use Current Visit: No Status: Chronic - Advance Directives Does patient have a Living Will: No Does patient have a Durable POA for Healthcare: No Physician Review: Patient Assessed, Agree with Above Assessment and Plan Physician Review Additional Text: Diabetic ketoacidosis Chronic tobacco use Presumed medication nonadherence Acute kidney injury Plan We will admit to ICU We will initiate DKA protocol Follow BMP every 4 hours until anion gap closes Continue insulin drip, monitor glucose every 1 hour for now Monitor electrolytes, replete potassium and phosphorus as needed with replacement protocol Will initiate antibiotics empirically with Rocephin Monitor WBC trendelevated leukocytosis may be due to DKA Subcutaneous Lovenox for DVT prophylaxis Keep n.p.o. for now Might need PPI As needed Zofran as tolerated Need for medication adherence again discussed with patient Full CODE STATUS Elevated creatinine expected to improve with aggressive hydration, may need nephrology consult Time Spent Managing Pts Care (In Minutes): 70
[2021-12-12] MEDS ORDERED: NA CHLORIDE 0.9% 1,000 ML IV SCH (16:00)
[2021-12-12 16:03] LABS: SARS-COV-2 RT PCR NEGATIVE (NEGATIVE)
[2021-12-12] MEDS: NICOTINE 21 MG/PAT TD SCH (17:00)
[2021-12-12] MEDS ORDERED: NICOTINE 21 MG/PAT TD ONE (17:28)
[2021-12-12 18:13] VITALS: BMI 27.4
[2021-12-12] MEDS ORDERED: MORPHINE 2 MG/ML SYR ONE (18:57)
[2021-12-12] MEDS: MORPHINE 2 MG/ML SYR IV PRN (18:59)
[2021-12-12 19:51] LABS: Blood Morphology Comment NOT SEEN (NOT SEEN); Platelet Estimate ADEQ
[2021-12-12 19:58] LABS: Potassium 4.5 mmol/L (3.5-5.1)
[2021-12-12] MEDS ORDERED: D5 0.45 NS 500 ML IV ONE (20:36)
[2021-12-12] MEDS ORDERED: HEPARIN 5000 UNIT/ML 1 ML VIAL ONE (20:53)
[2021-12-12] MEDS: D5.45NS W/KCL 20MEQ 1,000 ML IV SCH ×2 (21:00→23:30)
[2021-12-12] MEDS: HEPARIN 5000 UNIT/ML 1 ML VIAL SQ SCH (21:00)
[2021-12-12] MEDS ORDERED: D5.45NS W/KCL 20MEQ 1,000 ML IV ONE (21:09)
[2021-12-12] MEDS ORDERED: D5 0.45 NS 1,000 ML IV ONE (21:09)
[2021-12-12 22:59] VITALS: O2SAT 99
[2021-12-13] MEDS: MORPHINE 2 MG/ML SYR IV PRN (00:20)
[2021-12-13 00:41] LABS: Potassium 3.9 mmol/L (3.5-5.1)
[2021-12-13 05:39] LABS: Hematocrit 37.5 % (36.0-45.0); MPV 7.7 fL (7.6-11.3); RBC Red Blood Cell Count 4.06 M/uL (3.86-4.86)
[2021-12-13 05:57] LABS: Albumin 2.9 g/dL (3.4-5.0); Bilirubin Total 0.4 mg/dL (0.2-1.0); Phosphorus 1.5 mg/dL (2.5-4.9)
[2021-12-13] MEDS: D5.45NS W/KCL 20MEQ 1,000 ML IV SCH (07:25)
[2021-12-13] MEDS ORDERED: CEFTRIAXONE 1,000 MG in NA CHLORIDE 0.9% 50 ML IVPB SCH ×4 (09:00)
[2021-12-13] MEDS ORDERED: SODIUM PHOSPHATE 30 MM in NA CHLORIDE 0.9% 500 ML IV ONE (09:00)
[2021-12-13] MEDS: NICOTINE 21 MG/PAT TD SCH (10:04)
[2021-12-13] MEDS: HEPARIN 5000 UNIT/ML 1 ML VIAL SQ SCH (10:05)
[2021-12-13] MEDS: D5W 1,000 ML IV SCH ×2 (10:11→17:23)
[2021-12-13 11:36] LABS: Absolute Lymphocytes (CBC) 1.8 K/uL (0.7-4.9); Hematocrit 37.5 % (36.0-45.0); Lymphocytes % 19.6 % (15.3-44.8); MPV 7.9 fL (7.6-11.3); RBC Red Blood Cell Count 4.08 M/uL (3.86-4.86)
--- NOTE | 2021-12-13 11:57 | P.CNS ---
Date of Consult: 12/13/21 Reason for Consult: Acidosis Requesting Physician: Destin Hernandez Chief Complaint: Abdominal pain History of Present Illness: 26-year-old patient with history of type I DM, recurrent admission for hyperglycemia presented now because of abdominal pain, nausea or vomiting. She describes abdominal pain as crampy. She admits to poor p.o. intake since the last 2 days. She denies any diarrhea. She states she has run out of her glucose testing strips. On presentation she was noted with marked elevated glucose of greater than 696. She had marked metabolic acidosis with pH of 6.9 serum bicarb of 6 as well as anion gap of 26. She was given IV bicarb dose loading as well as 2 L normal saline bolus. She has been started on insulin drip now. She has been admitted for DKA. She states she was still taking her insulin at home although unable to adequately describe what dose she was getting. 14:42 This 26 yrs old Female presents to ER via Wheelchair with complaints of High Blood kb Sugar, Vomiting. 14:42 The patient or guardian reports hyperglycemia. Onset: The symptoms/episode kb began/occurred yesterday. Associated signs and symptoms: Pertinent positives: nausea, vomiting. Current symptoms: In the emergency department the patient's symptoms are unchanged from the initial presentation. The patient has experienced similar episodes in the past, several times. The patient has not recently seen a physician. Pt states she has been unable to check her sugar in a few days because she lost her meter. States she has had nausea and vomiting since yesterday and thinks her sugar is high. Allergies No Known Allergies Allergy (Verified 04/09/21 06:56) Home medications list reviewed: Yes Home Medications: Insulin Aspart [Novolog Flexpen] See Protocol SQ SEECOM #1 box 03/01/21 Insulin Glargine Human [Lantus*] 30 units SQ DAILY 04/10/21 Insulin Glargine,Hum.rec.anlog [Lantus Solostar] 30 unit SQ BEDTIME #2 insuln.pen 12/13/21 - Past Medical/Surgical History Diabetic: Yes -: DM -: C section - Family History Mother Medical History: Diabetes - Social History Smoking Status: Current every day smoker Alcohol use: No CD- Drugs: No Caffeine use: Yes Place of Residence: Home Review of Systems 10-point ROS is otherwise unremarkable General: Weakness, Malaise Gastrointestinal: Abdominal Pain Physical Examination Temp Pulse Resp BP Pulse Ox 98.7 F 101 H 18 98/66 99 12/13/21 08:00 12/13/21 10:00 12/13/21 10:00 12/13/21 10:00 12/13/21 10:00 General: Oriented x3, Cooperative HEENT: Atraumatic Neck: Supple Respiratory: Clear to auscultation bilaterally Cardiovascular: No edema Gastrointestinal: Hypoactive, Non-distended Musculoskeletal: No clubbing, No contractures Integumentary: No rashes, No cyanosis Neurological: Normal speech Laboratory Data (last 24 hrs) 12/12/21 13:56: Sodium 133 L, Potassium 4.4, BUN 22 H, Creatinine 1.37 H, Glucose 696 H* 12/12/21 13:56: WBC 24.90 H*, Hgb 16.0 H, Hct 52.3 H, Plt Count 469 H Conclusions/Impression: CKD with proteinuria -No NSAIDs Hyponatremia -Correct hyperglycemia -Continue IVF with NS Hypokalemia -Replete potassium Acidosis like DKA -Insulin gtt Hypocalcemia -Recommend Vitamin D HypoPO4 -Replete with IV PO4 Hypomagnesemia -Replete with IV Mag DM I with hyperglycemia, CKD, DKA -Insulin gtt Moderate malnutrition -Encourage nutrition Thank you kindly for the consultation.
[2021-12-13 12:54] LABS: Potassium 3.9 mmol/L (3.5-5.1)
[2021-12-13] MEDS ORDERED: INSULIN GLARGINE 100 UNIT/ML SQ ONE (13:00)
[2021-12-13] MEDS ORDERED: D5W 1,000 ML IV SCH (16:00)
--- NOTE | 2021-12-13 16:21 | P.DS ---
Discharge Date: 12/13/21 Disposition: ROUTINE DISCHARGE Discharge Condition: GOOD Reason for Admission: Abdominal pain Brief History of Present Illness: 26-year-old patient with history of type I DM, recurrent admission for hyperglycemia presented now because of abdominal pain, nausea or vomiting. She describes abdominal pain as crampy. She admits to poor p.o. intake since the last 2 days. She denies any diarrhea. She states she has run out of her glu cose testing strips. On presentation she was noted with marked elevated glucose of greater than 696. She had marked metabolic acidosis with pH of 6.9 serum bicarb of 6 as well as anion gap of 26. She was given IV bicarb dose loading as well as 2 L normal saline bolus. She has been started on insulin drip now. She has been admitted for DKA. She states she was still taking her insulin at home although unable to adequately describe what dose she was getting. Hospital Course: Patient blood sugar has stabilized. Patient's anion gap has improved. Acidosis is improving. Patient will get started on a diet and will give long-acting Lantus this evening. If patient tolerates diet then anticipate discharge home after Lantus is given. Vital Signs/Physical Exam: Temp Pulse Resp BP Pulse Ox 99.1 F 110 H 17 104/71 100 12/13/21 12:00 12/13/21 16:00 12/13/21 16:00 12/13/21 16:00 12/13/21 16:00 General: Alert, In no apparent distress, Oriented x3 Laboratory Data at Discharge: WBC 9.40 K/uL (4.3-10.9) D 12/13/21 10:55 Hgb 12.7 g/dL (12.0-15.0) 12/13/21 10:55 Hct 37.5 % (36.0-45.0) 12/13/21 10:55 Plt Count 280 K/uL (152-406) 12/13/21 10:55 Sodium 135 mmol/L (136-145) L 12/13/21 10:55 Potassium 3.9 mmol/L (3.5-5.1) 12/13/21 10:55 BUN 9 mg/dL (7-18) 12/13/21 10:55 Creatinine 0.86 mg/dL (0.55-1.3) 12/13/21 10:55 Glucose 255 mg/dL (74-106) H 12/13/21 10:55 Phosphorus 1.5 mg/dL (2.5-4.9) L 12/13/21 05:09 Total Bilirubin 0.4 mg/dL (0.2-1.0) 12/13/21 05:09 AST 15 U/L (15-37) 12/13/21 05:09 ALT 21 U/L (12-78) 12/13/21 05:09 Alkaline Phosphatase 95 U/L (45-117) 12/13/21 05:09 Home Medications: Insulin Aspart [Novolog Flexpen] See Protocol SQ SEECOM #1 box 03/01/21 Insulin Glargine Human [Lantus*] 30 units SQ DAILY 04/10/21 Physician Discharge Instructions: -DC IV and DC home -Follow-up with PCP in 1 to 2 weeks -Follow-up with Facilitator in 1 to 2 weeks -Please call Dr. Hernandez at [phone] if any questions regarding hospital stay -Please call nursing station at [phone] if any nursing or medication questions -Return to the emergency room if symptoms worsen Followup: NONE,NONE [Primary Care Provider] - Time spent managing pt's care (in minutes): 35
[2021-12-13 16:26] VITALS: TEMP 98.5
[2021-12-13 17:23] LABS: Magnesium 1.6
[2021-12-13 18:19] LABS: BUN Blood Urea Nitrogen 6 mg/dL (7-18); Bicarbonate 19 mmol/L (21-32); Glucose Level 257 mg/dL (74-106); Potassium 3.3 mmol/L (3.5-5.1); Sodium Level 137 mmol/L (136-145)
[2021-12-13 18:39] LABS: Magnesium 1.6
[2021-12-13 19:02] VITALS: BP 103/64
== END 2021-12-13 19:30 | disposition left against medical advice (07) | DRG 638 ==
LOC: ER 13:24 → ERHOLD 15:49 → 3RD-ICU 22:31
PROVIDERS: ADMIT Internal Medicine; ATTEND Hospitalist
DX: E10.10 Type 1 diabetes mellitus with ketoacidosis without coma (principal); N17.9 Acute kidney failure, unspecified; E87.1 Hypo-osmolality and hyponatremia; E44.0 Moderate protein-calorie malnutrition; E87.6 Hypokalemia; F17.200 Nicotine dependence, unspecified, uncomplicated; E10.22 Type 1 diabetes mellitus with diabetic chronic kidney disease; N18.9 Chronic kidney disease, unspecified; E83.51 Hypocalcemia; E83.39 Other disorders of phosphorus metabolism; E83.42 Hypomagnesemia; D72.829 Elevated white blood cell count, unspecified; Z68.27 Body mass index [BMI] 27.0-27.9, adult; Z79.4 Long term (current) use of insulin; Z53.29 Procedure and treatment not carried out because of patient's decision for other reasons; Z20.822 Contact with and (suspected) exposure to COVID-19
CPT/HCPCS: 0240U; 36415; 80048; 80053; 81003; 81015; 81025; 82010; 82805; 82947; 83036; 83605; 83735; 83880; 84100; 85025; 87040; 87086; 87088; 93005; 99285; J1644; J2270; J2405; J2550; J7030; J7040; J7060; J7799

== ENCOUNTER 2022-02-28 18:03 | Inpatient (IN) | payer OTHER ==
--- OUTSIDE RECORDS SUMMARY | 2022-02-28 18:08 | XMS REPORT | Continuity of Care Document ---
:1995 Author Organization [facility] t Address [address] [place] [address] Care Team Providers Name Role Phone HENRY Attending Clinician Unavailable HENRY Attending Clinician Unavailable Jose Attending Clinician Unavailable Harish JOHANSEN Attending Clinician HARISH Attending Clinician Unavailable YARON BRUNO Attending Clinician Unavailable HENRY Admitting Clinician Unavailable Jose Admitting Clinician Unavailable YARON BRUNO Admitting Clinician Unavailable Payers Payer Name Policy Type Policy Number Effective Date Expiration Date Jinny GOMES O [id number] 2018 00:00:00 Problems This patient has no known problems. Allergies, Adverse Reactions, Alerts Allergy Allergy Status Severity Reaction(s) Onset Inactive Treating Comm ents Source Name Type Date Date Clinician No Known DA Active U [facility] 00:: [address] No Known DA Active U [facility] s 00:00: [address] No Known DA Active U 2019-11 [facility] 11[facility] s 00:00: [address] No Known DA Active U 2019-11 [facility] 11[facility] s 00:00: [address] No Known DA Active U 2019-11 [facility] 0-03 [place] [facility] 00:00: [address] No Known DA Active U 2019-11 [facility]03 [facility] 00:00: [address] NO KNOWN Drug Active Univers ALLERGIE Class ity of [facility] Medications This patient has no known medications. Procedures Procedure Date / Time Performed Performing Clinician [facility] e [id number] 2020-11-30 00:00:00 [facility] [id number] 2020-11-30 00:00:00 [facility] Encounters Start End Encounter Admission Attending Care Care Encounter Source Date/Time Date/Time Type Type Clinicians Facility Department ID 2021-08-31 Inpatient U ANSELMO FIGUEROA [facility] [id number] Univers 10:13:06 ANSELMO FIGUEROA it [facility] 2020-11-29 Inpatient EM Jose, [facility] LD [id number] [facility] 20:33:00 Ziad [id number] [facility] 2020-11-28 Inpatient Jose, [facility] OBANTE [id number] [facility] 19:00:00 Ziad [id number] [facility] 2020-11-22 Inpatient EL Jose, [facility] OBANTE [id number] [facility] 10:30:00 Ziad [id number] [facility] 2020-09-28 Inpatient Jose, [facility] TONY [id number] [facility] 03:41:00 Ziad [id number] [facility] 2020-09-26 Inpatient EL Jose, [facility] INTE [id number] [facility] 12:48:00 Ziad [id number] [facility] 2020-08-05 Inpatient [facility] JED [id number] [facility] 00:52:00 [facility] 2020-11-22 2020-11-22 Outpatient Jose, [facility] REFE [id number] [facility] 14:51:00 14:51:00 Ziad [id number] [facility] 2020-09-26 2020-09-26 Outpatient Jose, [facility] REFE [id number] [facility] 17:05:00 17:05:00 Ziad [id number] [facility] 2020-09-20 2020-09-20 [facility] [id number] [facility]00 [facility] [id number] [place] [id number] Professio [phone] nal 220 [facility] 2020-07-16 2020-07-16 [facility] [id number] 00:00:00 00:00:00 [facility] [id number] [place] [id number] Professio [phone] nal 220 [facility] 2020-06-20 2020-06-20 Outpatient R HARISH, [facility] [id number] Univers 10:00:00 10:00:00 [facility] [id number] 2020-06[facility]20 [facility] [id number] Univers 10:00:00 10:00:00 BEATRIZ [facility] 2020-05-30 2020-05-30 Outpatient R [facility] [id number] Univers 08:00:00 08:00:00 [id number] [facility] 2020-05-30 2020-05-30 Outpatient R [facility] [id number] Univers [facility]:00[facility] 2020-05-09 [facility] [id number] Univers 14:00:00 14:00:00 [facility] 2020-05-09 2020-05-09 [facility] [id number] Univers 14:00:00 14:00:00 BEATRIZ [facility] 2020-01-05 2020-01-05 Outpatient R MOREIRA, [facility] [id number] Univers 11:00:00 11:00:[address] [facility] Results Test Description Test Time Test Comments Results Result Comments Source HEMOGLOBIN A1c 2022-02-27 07:05:48 Test Item Value Reference Range Interpretation Comme nts HEMOGLOBIN A1c (test code = 12.7 % 4.2-5.6 H DJIB[employer] DIABETES ASSOCIATION 48476) GUIDELINES FOR HGB A1C: PREDIABETES/INC REASED RISK . . . . . . . 5.7-6.4% DIAGNOSIS OF DIABETES . . . . . . . . . >=6.5% WITH CONF IRMATION OR APPROPRIATE SYMPTOMS N OTE: ASSAY MAY BE AFFECTED BY HEM OGLOBINOPATHIES (SICKLE CELL ANEMIA, S-C DISEASE, OTHERS) OR ARTIFICIALLY LO WERED BY DECREASED RED CELL SURVIV AL (HEMOLYTIC ANEMIAS, BLOOD LOSS, ETC.). CONSIDER ALTERNATE TESTI NG OR LABORATORY CONSULTATION. UNLESS OTHERWISE INDICATED, ALL TESTING PERFORMED [employer]. [address] [place] [address] LABORATORY DIR SUSHIL: SHIKHA DAMON M.D. [place] NUMBER [id number] [facility] [place]. [id number] ALBUMIN/CREATININE RATIO, URINE, [id number] 04:35:05 Test Item Value Reference Range Interpretation Comments CREATININE, URINE, 151.8 MG/DL NOT ESTAB RANDOM (test code = 2072) ALBUMIN, URINE, 212.2 MG/DL NOT ESTAB RANDOM (test code = 87778) CALC ALBUMIN/CREAT, 1398 MG/G <30 H Note: RND (test code = Albumin/Cre atinine 66297) ratio reference interval reflec ts ADA and NKF guidelines. PLACENTA THIRD [id number] 11:28:00 Test Item Value Reference Range Interpretation Comments PLACENTA THIRD TRIMESTER (test code = PLACIII) RUN DATE: 12/07/20 [facility] PAGE 1 RUN TIME: 1403 Specimen Inquiry RUN USER: INTERFACE PATIENT: TASHI MOSQUERA LOC: MICHAEL U #: [id number] AGE/SX: ROOM: [place] RE11/29/20REG DR: Natalie Garcia MD : 89 BED: A DIS: 12/03/20 STATUS: DIS IN TLOC: SPEC #: [id number] RECD: 12/01/20-935 STATUS: REKHA [facility] #: [id number] THERESE: 11/30/20- SUBM DR: Natalie Garcia MD ENTERED: 12/01/20-936 SP TYPE: PLACIII OTHR DR: ORDERED: LEVEL V SURGICA CODES: [id number] - PLACENTA, NOS PROCEDURES: LEVEL V SURGICA (Incomplete) TISSUES: PLACENTA, NOS - PLACENTA CLINICAL HISTORY 25 year old, 36.4 weeks, , section, diabetes type 1 - insulin, prematurity <37 weeks, nonreassuring monitoring (nneka) FINAL DIAGNOSIS Placenta, section: - placenta with third trimester morphology (590 gms), mean placental weight at 31 weeks - 314 gms (placenta is very large for dates, greater than the 97th percentile) - accelerated villous maturation with multifocal increase in the syncytial knots, suggestive of hypoperfusion - few foci of villous stromal karyorrhexis - focal chorangiosis - trivascular umbilical cord and membranes - free of inflammation COMMENT: The presence of accelerated villous maturation and increased syncytial knots together suggest a component of maternal vascular malperfusion. Pathologic features of uteroplacental malperfusion can be seen in maternal conditions with a component of vascular disease (preeclampsia, hypertension, diabetes mellitus, and autoimmunity). There can be an increased risk for recurrence in future pregnancies. CPT: 39249 [facility]/wpd GROSS DESCRIPTION The specimen was received in a container, labeled with the patient's name, unit number and designated "placenta". The following attributes are observed: Cord insertion: 1 cm from margin CONTINUED ON NEXT PAGE RUN DATE: 12/07/20 [facility] PAGE 2 RUN TIME: 1403 Specimen Inquiry RUN USER: INTERFACE SPEC #: [id number] PATIENT: TASHI MOSQUERA #[id number] (Continued) --- GROSS DESCRIPTION (Continued) Cord length: 30 cm Number of vessels: 3 Cord color: Patterson-white Other cord findings: None surface findings: Blue-purple, wrinkled, glistening with focal subchorionic fibrin deposition Vasculature: Unremarkable vasculature Membranes rupture site: 1 cm to margin Membrane color: Patterson-pink Other membrane findings: Semi-translucent and circummarginate The trimmed placental weight: 590 gm Disk measurement: 17 x 16 x 4 cm in greatest dimension Accessory lobes: None Maternal surface: Lobulated and focally disrupted, completeness cannot be determined Parenchyma: Red-brown and spongy Parenchyma lesions: None Cassettes: A1 through A4 nz/wpd 12/01/20 MICROSCOPIC DESCRIPTION The placenta is composed of small vascular villi which are smaller and more mature appearing than expected for the given gestational age. Multifocal increase in the syncytial knots is present. The trivascular umbilical cord and membranes are free of inflammation. Scattered calcifications are identified. pkg/wpd Signed Olive Young 12/07/20 1128 END OF REPORT [id number] 11:58:00 Test Item Value Reference Range Interpretation Comments GLUBED (test code = GLUBED) 71 mg/dL 65-110 N [id number] 06:51:00 Test Item Value Reference Range Interpretation Comments GLUBED (test code = GLUBED) 80 mg/dL 65-110 N [id number] 21:24:00 Test Item Value Reference Range Interpretation Comments GLUBED (test code = GLUBED) 103 mg/dL 65-110 N [id number] 15:15:00 Test Item Value Reference Range Interpretation Comments GLUBED (test code = GLUBED) 206 mg/dL 65-110 H [id number] 09:56:00 Test Item Value Reference Range Interpretation Comments GLUBED (test code = GLUBED) 200 mg/dL 65-110 H [id number] 06:48:00 Test Item Value Reference Range Interpretation Comments GLUBED (test code = GLUBED) 64 mg/dL 65-110 L [id number] 21:12:00 Test Item Value Reference Range Interpretation Comments GLUBED (test code = GLUBED) 186 mg/dL 65-110 H [id number] 14:15:00 Test Item Value Reference Range Interpretation Comments GLUBED (test code = GLUBED) 177 mg/dL 65-110 H [id number] 10:42:00 Test Item Value Reference Range Interpretation Comments GLUBED (test code = GLUBED) 242 mg/dL 65-110 H HGB [id number] 08:21:00 Test Item Value Reference Range Interpretation Comments HEMOGLOBIN (test code = HGB) 11.7 g/dL 10.7-13.9 N HEMATOCRIT (test code = HCT) 36.4 % 32.1-42.1 N [id number] 06:49:00 Test Item Value Reference Range Interpretation Comments GLUBED (test code = GLUBED) 115 mg/dL 65-110 H [id number] 22:46:00 Test Item Value Reference Range Interpretation Comments GLUBED (test code = GLUBED) 129 mg/dL 65-110 H [id number] 19:28:00 Test Item Value Reference Range Interpretation Comments GLUBED (test code = GLUBED) 221 mg/dL 65-110 H [id number] 17:42:00 Test Item Value Reference Range Interpretation Comments GLUBED (test code = GLUBED) 359 mg/dL 65-110 H [id number] 10:51:00 Test Item Value Reference Range Interpretation Comments GLUBED (test code = GLUBED) 126 mg/dL 65-110 H PaO2/[id number] 10:01:00 Test Item Value Reference Range Interpretation Comments PaO2/FiO2 (test code = GUU9PFT9) mm/Hg ARTERIAL BLOOD [id number] 10:01:00 Test Item Value Reference Range Interpretation [...] FIO2 (test code = FIO2A) 21.0 % PaO2/[id number] 10:01:00 Test Item Value Reference Range Interpretation Comments PaO2/FiO2 (test code = GQG8FAX3) 70.40 mm/Hg ARTERIAL BLOOD [id number] 10:01:00 Test Item Value Reference Range Interpretation [...] code = FIO2A) 21.0 % CAPILLARY BLOOD [id number] 10:00:00 Test Item Value Reference Range Interpretation [...] FIO2 (test 21.0 % code = FIO2C) [id number] 06:32:00 Test Item Value Reference Range Interpretation Comments GLUBED (test code = GLUBED) 183 mg/dL 65-110 H [id number] 02:15:00 Test Item Value Reference Range Interpretation Comments GLUBED (test code = GLUBED) 82 mg/dL 65-110 N [id number] 22:52:00 Test Item Value Reference Range Interpretation Comments GLUBED (test code = GLUBED) 200 mg/dL 65-110 H AG HEPATITIS B [id number] 22:46:00 Test Item Value Reference Range Interpretation Comments AG HEPATITIS B SURFACE (test code NONREACTIVE NONREACTIVE = HBSAG) IS CONSENT FORM SIGNED FOR HIV TESTING? YAB HEPATITIS C [id number] 22:46:00 Test Item Value Reference Range Interpretation Comments AB HEPATITIS C (test code = NONREACTIVE NONREACTIVE HCVAB) SIGNAL TO CUTOFF (test code = 0.03 <0.80 N CUTOFF) IS CONSENT FORM SIGNED FOR HIV TESTING? YAB [id number] 22:46:00 Test Item Value Reference Range Interpretation Comments AB TREPONEMA (test code = TREPAB) NONREACTIVE NONREACTIVE IS CONSENT FORM SIGNED FOR HIV TESTING? YAB HIV 1 22:46:00 Test Item Value Reference Range Interpretation Comments AB HIV 1 2 (test NONREACTIVE NONREACTIVE Done by Jinny Ramirezr code = ARU15FU) 4th Gen HIV Ag/Ab Combo Screen IS CONSENT FORM SIGNED FOR HIV TESTING? YAG HEPATITIS B [id number] 22:16:00 Test Item Value Reference Range Interpretation Comments AG HEPATITIS B SURFACE (test code NONREACTIVE NONREACTIVE = HBSAG) IS CONSENT FORM SIGNED FOR HIV TESTING? YAB HEPATITIS C [id number] 22:16:00 Test Item Value Reference Range Interpretation Comments AB HEPATITIS C (test code = HCVAB) NONREACTIVE SIGNAL TO CUTOFF (test code = CUTOFF) <0.80 IS CONSENT FORM SIGNED FOR HIV TESTING? YAB [id number] 22:16:00 Test Item Value Reference Range Interpretation Comments AB TREPONEMA (test code = TREPAB) NONREACTIVE NONREACTIVE IS CONSENT FORM SIGNED FOR HIV TESTING? YAB HIV 1 22:16:00 Test Item Value Reference Range Interpretation Comments AB HIV 1 2 (test code = BJO90QB) NONREACTIVE IS CONSENT FORM SIGNED FOR HIV TESTING? YCBC W/AUTO [id number] 21:47:00 Test Item Value Reference Range Interpretation [...] code = PLTMR) COVID 19 Asymptomatic IH [id number] 21:44:00 Test Item Value Reference Range Interpretation [...] and/o r diagnosis of CO VID-19 under Syebuxe24 4(b)(1) of the Act, 21 U.S .C. 360bbb-3(b)(1), unless theauthorizatio n is terminated or r evoked sooner. [id number] 10:30:00 Test Item Value Reference Range Interpretation Comments GLUBED (test code = GLUBED) 105 mg/dL 65-110 N [id number] 06:29:00 Test Item Value Reference Range Interpretation Comments GLUBED (test code = GLUBED) 126 mg/dL 65-110 H [id number] 01:02:00 Test Item Value Reference Range Interpretation Comments GLUBED (test code = GLUBED) 72 mg/dL 65-110 N [id number] 20:42:00 Test Item Value Reference Range Interpretation Comments GLUBED (test code = GLUBED) 88 mg/dL 65-110 N [id number] 14:39:00 Test Item Value Reference Range Interpretation Comments GLUBED (test code = GLUBED) 149 mg/dL 65-110 H [id number] 11:20:00 Test Item Value Reference Range Interpretation Comments GLUBED (test code = GLUBED) 74 mg/dL 65-110 N [id number] 06:28:00 Test Item Value Reference Range Interpretation Comments GLUBED (test code = GLUBED) 103 mg/dL 65-110 N [id number] 06:28:00 Test Item Value Reference Range Interpretation Comments GLUBED (test code = GLUBED) 76 mg/dL 65-110 N [id number] 22:06:00 Test Item Value Reference Range Interpretation Comments GLUBED (test code = GLUBED) 78 mg/dL 65-110 N [id number] 16:07:00 Test Item Value Reference Range Interpretation Comments GLUBED (test code = GLUBED) 167 mg/dL 65-110 H [id number] 10:42:00 Test Item Value Reference Range Interpretation Comments GLUBED (test code = GLUBED) 130 mg/dL 65-110 H [id number] 04:47:00 Test Item Value Reference Range Interpretation Comments GLUBED (test code = GLUBED) 78 mg/dL 65-110 N [id number] 20:47:00 Test Item Value Reference Range Interpretation Comments GLUBED (test code = GLUBED) 160 mg/dL 65-110 H [id number] 14:52:00 Test Item Value Reference Range Interpretation Comments GLUBED (test code = GLUBED) 235 mg/dL 65-110 H [id number] 10:54:00 Test Item Value Reference Range Interpretation Comments GLUBED (test code = GLUBED) 148 mg/dL 65-110 H [id number] 07:01:00 Test Item Value Reference Range Interpretation Comments GLUBED (test code = GLUBED) 82 mg/dL 65-110 N [id number] 06:05:00 Test Item Value Reference Range Interpretation Comments GLUBED (test code = GLUBED) 61 mg/dL 65-110 L [id number] 20:39:00 Test Item Value Reference Range Interpretation Comments GLUBED (test code = GLUBED) 312 mg/dL 65-110 H GLYCOSYLATED HEMOGLOBIN [id number] 17:32:00 Test Item Value Reference Range Interpretation [...] H (test code = MBG) COMPREHENSIVE METABOLIC [id number] 17:32:00 Test Item Value Reference Range Interpretation [...] considered for these patients. AG HEPATITIS B [id number] 15:30:00 Test Item Value Reference Range Interpretation Comments AG HEPATITIS B SURFACE (test code NONREACTIVE NONREACTIVE = HBSAG) IS CONSENT FORM SIGNED FOR HIV TESTING? B HEPATITIS C [id number] 15:30:00 Test Item Value Reference Range Interpretation Comments AB HEPATITIS C (test code = NONREACTIVE NONREACTIVE HCVAB) SIGNAL TO CUTOFF (test code = 0.02 <0.80 N CUTOFF) IS CONSENT FORM SIGNED FOR HIV TESTING? YAB [id number] 15:30:00 Test Item Value Reference Range Interpretation Comments AB TREPONEMA (test code = TREPAB) NONREACTIVE NONREACTIVE IS CONSENT FORM SIGNED FOR HIV TESTING? B HIV 1 15:30:00 Test Item Value Reference Range Interpretation Comments AB HIV 1 2 (test NONREACTIVE NONREACTIVE [facility] code = [id number]) 4th Gen HIV Ag/Ab Combo Screen IS CONSENT FORM SIGNED FOR HIV TESTING? [id number] 15:23:00 Test Item Value Reference Range Interpretation Comments GLUBED (test code = GLUBED) 266 mg/dL 65-110 H COVID 19 Asymptomatic IH [id number] 15:16:00 Test Item Value Reference Range Interpretation [...] ncy Use Authorization(E UA) for use by ronnieato nancy certified under the CLIA thatmeet the [...] and/o r diagnosis of CO VID-19 under Uochlqq09 4(b)(1) of the Act, 21 U.S .C. 360bbb-3(b)(1), unless theauthorizatio n is terminated or r evoked sooner. AG HEPATITIS B [id number] 15:08:00 Test Item Value Reference Range Interpretation Comments AG HEPATITIS B SURFACE (test code NONREACTIVE NONREACTIVE = HBSAG) IS CONSENT FORM SIGNED FOR HIV TESTING? YAB HEPATITIS C [id number] 15:08:00 Test Item Value Reference Range Interpretation Comments AB HEPATITIS C (test code = HCVAB) NONREACTIVE SIGNAL TO CUTOFF (test code = CUTOFF) <0.80 IS CONSENT FORM SIGNED FOR HIV TESTING? YAB [id number] 15:08:00 Test Item Value Reference Range Interpretation Comments AB TREPONEMA (test code = TREPAB) NONREACTIVE NONREACTIVE IS CONSENT FORM SIGNED FOR HIV TESTING? YAB HIV 1 15:08:00 Test Item Value Reference Range Interpretation Comments AB HIV 1 2 (test code = SBH68NP) NONREACTIVE IS CONSENT FORM SIGNED FOR HIV TESTING? YUR PROTEIN/CREATININE [id number] 14:46:00 Test Item Value Reference Range Interpretation Comments UR PROTEIN RANDOM (test code = 11.5 mg/dL PROTU) UR CREATININE RANDOM (test 24.6 mg/dL code = CREATU) PROTEIN/CREATININE RATIO (test 460.0 mg/gcrea <200 H code = P/CRATIO) COMPREHENSIVE METABOLIC [id number] 14:38:00 Test Item Value Reference Range Interpretation [...] (HA1C) (test code = GLYHGB) CBC W/AUTO [id number] 14:26:00 Test Item Value Reference Range Interpretation [...] NORMAL NORMAL code = PLTMR) - [place] [id number] 06:06:00 [facility] : 1995 Sex: F Patient Name: TASHI MOSQUERA Unit No: [id number] EXAMS: CPT CODE: [id number] [place] 83925 STUDY: - US LTD 09/28/2020 5:04 AM Ordering Physician: Cipriano Alex III, MD Patient Name: TASHI MOSQUERA MR: [id number] : 1995; Age: 25 years y/o Female [...] weeks 3 days as above described. [facility] NAME: TASHI MOSQUERA Radiology Department PHYS: Cipriano Michelle III, MD [address] : 1995 AGE: 25 SEX: F [place] [address] LOC: AnupTONY PHONE #: [phone] EXAM DATE: 09/28/2020 STATUS: REG ER FAX #: [phone] RAD NO: Page 1 Signed Report (CONTINUED) Patient Name: Tee MOSQUERA Unit No: [id number] EXAMS: CPT CODE: [id number] [place] L[place] 58453 <C ontinued> ALEXY 17.8 cm. Trace fluid [...] ZHOU RDMS, T Probe: Trnscrbd D/ (605) t.SDR.TP6 Orig Print D/T: S: 09/28/2020 (0609) [facility] NAME: TASHI MOSQUERA Radiology Department PHYS: Cipriano Michelle III, MD [address] : 1995 AGE: 25 SEX: F [place] [address] LOC: Saloni.TONY PHONE #: [phone] EXAM DATE: 09/28/2020 STATUS: REG ER FAX #: [phone] RAD NO: Page 2 Signed Report Patient Name: TASHI MOSQUERA Unit No: [id number] EXAMS: CPT CODE: [id number] [place] LTD [address] <Continued> [facility] NAME: TASHI MOSQUERA Radiology Department PHYS: Cipriano Michelle III, MD [address] : 1995 AGE: 25 SEX: F [place] [address] LOC: Saloni.TONY PHONE #: [phone] EXAM DATE: 09/28/2020 STATUS: REG ER FAX #: [phone] RAD NO: Page 3 Signed ReportURINALYSIS [id number] 05:32:00 Test Item Value Reference Range Interpretation [...] SEEN Specimen Comment: JOSE ROSALES SAMPLE: CLEAN [id number] 05:29:00 Test Item Value Reference Range Interpretation Comments GLUBED (test code = GLUBED) 91 mg/dL 65-110 N [id number] 14:54:00 Test Item Value Reference Range Interpretation Comments GLUBED (test code = GLUBED) 95 mg/dL 65-110 N [id number] 14:54:00 Test Item Value Reference Range Interpretation Comments GLUBED (test code = GLUBED) 124 mg/dL 65-110 H [id number] 14:54:00 Test Item Value Reference Range Interpretation Comments GLUBED (test code = GLUBED) 131 mg/dL 65-110 H COMPREHENSIVE METABOLIC [id number] 12:46:00 Test Item Value Reference Range Interpretation [...] 44 units/L 46-116 L code = ALKP) [id number] 12:46:00 Test Item Value Reference Range Interpretation Comments PHOSPHOROUS (test code = PHOS) 1.6 mg/dL 2.5-4.9 L [id number] 12:46:00 Test Item Value Reference Range Interpretation Comments MAGNESIUM (test code = MAG) 1.7 mg/dL 1.8-2.4 L CBC W/AUTO [id number] 12:04:00 Test Item Value Reference Range Interpretation [...] REQUIRED (test NORMAL NORMAL code = PLTMR) [id number] 10:33:00 Test Item Value Reference Range Interpretation Comments GLUBED (test code = GLUBED) 136 mg/dL 65-110 H [id number] 10:33:00 Test Item Value Reference Range Interpretation Comments GLUBED (test code = GLUBED) 180 mg/dL 65-110 H COMPREHENSIVE METABOLIC [id number] 07:48:00 Test Item Value Reference Range Interpretation [...] 42 units/L 46-116 L code = ALKP) [id number] 07:48:00 Test Item Value Reference Range Interpretation Comments PHOSPHOROUS (test code = PHOS) 1.6 mg/dL 2.5-4.9 L [id number] 07:48:00 Test Item Value Reference Range Interpretation Comments MAGNESIUM (test code = MAG) 1.6 mg/dL 1.8-2.4 L [id number] 07:06:00 Test Item Value Reference Range Interpretation Comments GLUBED (test code = GLUBED) 184 mg/dL 65-110 H [id number] 06:27:00 Test Item Value Reference Range Interpretation Comments GLUBED (test code = GLUBED) 187 mg/dL 65-110 H COMPREHENSIVE METABOLIC [id number] 05:46:00 Test Item Value Reference Range Interpretation [...] 42 units/L 46-116 L code = ALKP) [id number] 05:46:00 Test Item Value Reference Range Interpretation Comments MAGNESIUM (test code = MAG) 1.6 mg/dL 1.8-2.4 L CBC W/AUTO [id number] 05:34:00 Test Item Value Reference Range Interpretation [...] REQUIRED (test NORMAL NORMAL code = PLTMR) [id number] 05:22:00 Test Item Value Reference Range Interpretation Comments GLUBED (test code = GLUBED) 208 mg/dL 65-110 H [id number] 04:21:00 Test Item Value Reference Range Interpretation Comments GLUBED (test code = GLUBED) 210 mg/dL 65-110 H [id number] 03:22:00 Test Item Value Reference Range Interpretation Comments GLUBED (test code = GLUBED) 229 mg/dL 65-110 H [id number] 02:22:00 Test Item Value Reference Range Interpretation Comments GLUBED (test code = GLUBED) 247 mg/dL 65-110 H [id number] 01:34:00 Test Item Value Reference Range Interpretation Comments GLUBED (test code = GLUBED) 261 mg/dL 65-110 H [id number] 00:21:00 Test Item Value Reference Range Interpretation Comments GLUBED (test code = GLUBED) 276 mg/dL 65-110 H [id number] 23:23:00 Test Item Value Reference Range Interpretation Comments GLUBED (test code = GLUBED) 282 mg/dL 65-110 H [id number] 22:29:00 Test Item Value Reference Range Interpretation Comments GLUBED (test code = GLUBED) 193 mg/dL 65-110 H [id number] 22:29:00 Test Item Value Reference Range Interpretation Comments GLUBED (test code = GLUBED) 172 mg/dL 65-110 H [id number] 22:29:00 Test Item Value Reference Range Interpretation Comments GLUBED (test code = GLUBED) 123 mg/dL 65-110 H [id number] 22:29:00 Test Item Value Reference Range Interpretation Comments GLUBED (test code = GLUBED) 158 mg/dL 65-110 H [id number] 22:29:00 Test Item Value Reference Range Interpretation Comments GLUBED (test code = GLUBED) 192 mg/dL 65-110 H COMPREHENSIVE METABOLIC [id number] 21:00:00 Test Item Value Reference Range Interpretation Comments SODIUM (test code = 136 mEq/L 135-145 N NA) POTASSIUM (test code 3.5 mEq/L 3.5-5.0 N = K) CHLORIDE (test code 108 mEq/L 100-115 N = CL) CARBON DIOXIDE (test 13 mEq/L 22-31 LL RESULTS VERIFIED BY code = CO2) REPEAT ANALYSIS RESULTS CALLED TO .CONCHA PETERSEN BACK & CONFIRME D? YES.BY F.LAB.TT T 09/26/202058. ANION GAP (test code 18.70 - N = GAP) GLUCOSE (test code = [...] units/L 46-116 TOTAL (test code = ALKP) [id number] 21:00:00 Test Item Value Reference Range Interpretation Comments PHOSPHOROUS (test code = PHOS) 1.8 mg/dL 2.5-4.9 L [id number] 21:00:00 Test Item Value Reference Range Interpretation Comments MAGNESIUM (test code = MAG) 1.4 mg/dL 1.8-2.4 L OSMOLALITY [id number] 20:51:00 Test Item Value Reference Range Interpretation Comments OSMOLALITY SERUM (test code = 296 mOsm/kg 275-295 H OSMO) OSMOLALITY [id number] 20:51:00 Test Item Value Reference Range Interpretation [...] be considered for these patients. GLYCOSYLATED HEMOGLOBIN [id number] 20:49:00 Test Item Value Reference Range Interpretation Comments GLYCOSYLATED 13.7 % 4.8-5.9 H Any condition t hat HEMOGLOBIN (HA1C) shortens e rythocyte (test code = survival or dec reasesmean GLYHGB) erythrocyte age (e.g., recovery from a cute blood loss,hemolytic anemia) will falsely lo wer HGBA1c resultsregardle ss of the method used. H GBA1c results from pa yogeshntswith HbSS, HbCC, and HbSc must be interpreted with cautiongiven th e pathological pr ocesses, including anemia,increase d red cell turnover, trans fusion requirements, thatadversely i mpact HGBA1c as a mar ker of long-term glycemiccontrol . Alternative for ms of testing such as fructosaminesho uld be considered for these patients. MEAN BLOOD GLUCOSE 346 MG/DL 70-110 H (test code = MBG) CBC W/AUTO [id number] 19:25:00 Test Item Value Reference Range Interpretation [...] NORMAL NORMAL code = PLTMR) VBG IONIZED [id number] 19:21:00 Test Item Value Reference Range Interpretation Comments VBG IONIZED CALCIUM (test code = 1.06 mmol/L 0.9-1.29 N ICAL/VBG) COMPREHENSIVE METABOLIC [id number] 19:09:00 Test Item Value Reference Range Interpretation [...] .BY F.LAB.TTT 09/26. ANION GAP (test code . 10-20 [...] 46-116 N TOTAL (test code = ALKP) [id number] 19:09:00 Test Item Value Reference Range Interpretation Comments PHOSPHOROUS (test code = PHOS) 1.9 mg/dL 2.5-4.9 L [id number] 19:09:00 Test Item Value Reference Range Interpretation Comments MAGNESIUM (test code = MAG) 1.5 mg/dL 1.8-2.4 L [id number] 17:36:00 Test Item Value Reference Range Interpretation Comments GLUBED (test code = GLUBED) 212 mg/dL 65-110 H UR PROTEIN/CREATININE [id number] 17:25:00 Test Item Value Reference Range Interpretation Comments UR PROTEIN RANDOM 56.6 mg/dL (test code = PROTU) UR CREATININE 11.1 mg/dL RANDOM (test code = CREATU) PROTEIN/CREATININE 5090.0 <200 H RESULTS V ERIFIED BY RATIO (test code = mg/gcrea REPEAT AN ALYSISRESULTS P/CRATIO) CALLED TO SASHA READ BACK & CONFIRME D? YESBY F.LAB.TTT 09/26 1725 COMPREHENSIVE METABOLIC [id number] 17:24:00 Test Item Value Reference Range Interpretation [...] 46-116 N TOTAL (test code = ALKP) [id number] 17:24:00 Test Item Value Reference Range Interpretation Comments PHOSPHOROUS (test code = PHOS) 2.9 mg/dL 2.5-4.9 N [id number] 17:24:00 Test Item Value Reference Range Interpretation Comments AMYLASE (test code = CHELSIE) 77 units/L 30-110 N [id number] 17:24:00 Test Item Value Reference Range Interpretation Comments MAGNESIUM (test code = MAG) 1.7 mg/dL 1.8-2.4 L C REACTIVE [id number] 17:08:00 Test Item Value Reference Range Interpretation Comments C REACTIVE PROTEIN (test code = 0.2 mg/dL 0.6-1.2 L CRP) URINALYSIS [id number] 17:00:00 Test Item Value Reference Range Interpretation [...] = MUCU) RARE NONE SEEN CBC W/AUTO [id number] 16:53:00 Test Item Value Reference Range Interpretation [...] NORMAL NORMAL code = PLTMR) COMPREHENSIVE METABOLIC [id number] 13:57:00 Test Item Value Reference Range Interpretation [...] 48 units/L 46-116 N code = ALKP) [id number] 13:57:00 Test Item Value Reference Range Interpretation Comments LIPASE (test code = LIP) 85 units/L 73-393 N ACETONE [id number] 13:57:00 Test Item Value Reference Range Interpretation Comments ACETONE QUAL (test code = ACETNQL) NEGATIVE NEGATIVE BETA [id number] 13:57:00 Test Item Value Reference Range Interpretation Comments BETA HYDROBUTYRATE (test 2.2 mg/dL () Ref erence Range:All code = BETHYD) Ages (fasting ): 0.2 - 2.8Performed At: [facility] [address] [place] [address] [id number] danial Blanton MD Ph:[phone] [id number] 13:24:00 Test Item Value Reference Range Interpretation Comments GLUBED (test code = GLUBED) 169 mg/dL 65-110 H [id number] 11:17:00 Test Item Value Reference Range Interpretation Comments GLUBED (test code = GLUBED) 91 mg/dL 65-110 N [id number] 07:59:00 Test Item Value Reference Range Interpretation Comments GLUBED (test code = GLUBED) 162 mg/dL 65-110 H - US PREG UT [id number] 04:23:00 Patient Name: TASHI MOSQUERA Unit No: [id number] EXAMS: CPT CODE: [id number] US PREG UT TRANSVAGINAL 26905 STUDY: - US LTD, - US PREG UT TRANSVAGINAL 08/05/2020 12:59 AM Ordering Physician: Shira Arredondo MD Patient Name: TASHI MOSQUERA MR: [id number] : 1995; Age: 25 years y/o Female [...] Not performed Small free pelvic fluid. [facility] NAME: TASHI MOSQUERA Radiology Department PHYS: Natalie Foley MD [address] : 1995 AGE: 25 SEX: F [place], [place] [address] LOC: F.2624 A PHONE #: [phone] EXAM DATE: 08/05/2020 STATUS: ADM IN FAX #: [phone] RAD NO: Page 1 Signed Report (CONTINUED) Patient Name: TASHI MOSQUERA Unit No: [id number] EXAMS: CPT CODE: [id number] US PREG UT TRANSVAGINAL [address]0969 <Continued> IMPRESSION: Single liveintrauterine at 19 weeks [...] Garcia MD Technologist: Charlotte Kidd RDMS Probe: [id number] Trnscrbd D/ (042) t.HAYDENR.TP6 Orig Print D/T: S: 08/05/2020 (042) [facility] NAME: [facility] Radiology Department PHYS: Natalie Foley MD [address] : 1995 AGE: 25 SEX: [place] [address] LOC: F.2624 A PHONE #: [phone] EXAM DATE: 08/05/2020 STATUS: ADM IN FAX #: [phone] RAD NO: Page 2 Signed Report Patient Name: TASHI MOSQUERA Unit No: [id number] EXAMS: CPT CODE: [id number] US PREG UT TRANSVAGINAL [address]69 <Continued> [facility] NAME: [facility] Radiology Department PHYS: Natalie Foley MD [address] : 1995 AGE: 25 SEX: [place], [place] [address] LOC: F.2624 A PHONE #: [phone] EXAM DATE: 08/05/2020 STATUS: ADM IN FAX #: [phone] RAD NO: Page 3 Signed Report- US [id number] 04:23:00 Patient Name: TASHI MOSQUERA Unit No: [id number] EXAMS: CPT CODE: [id number] US LTD [address] STUDY: - US LTD, - US PREG UT TRANSVAGINAL 08/05/2020 12:59 AM Ordering Physician: Shira Arredondo MD Patient Name: TASHI MOSQUERA MR: [id number] : 1995; Age: 25 years y/o Female [...] Not performed Small free pelvic fluid. [facility] NAME: TASHI MOSQUERA Radiology Department PHYS: Shira Truong MD [address] : 1995 AGE: 25 SEX: F [place], [place] [address] LOC: F.2624 A PHONE #: [phone] EXAM DATE: 08/05/2020 STATUS: ADM IN FAX #: [phone] RAD NO: Page 1 Signed Report (CONTINUED) Patient Name: TASHI MOSQUERA Unit No: [id number] EXAMS: CPT CODE: [id number] US LTD [address] <Continued> IMPRESSION: Single liveintrauterine at 19 weeks [...] Technologist: Charlotte Kidd RDMS Probe: Trnscrbd D/ (422) t.SDR.TP6 Orig Print D/T: S: 08/05/2020 (042) [facility] NAME: [facility] Radiology Department PHYS: Shira Truong MD [address] : 1995 AGE: 25 SEX: [place] [address] LOC: F.2624 A PHONE #: [phone] EXAM DATE: 08/05/2020 STATUS: ADM IN FAX #: [phone] RAD NO: Page 2 Signed Report [facility] Unit No: [id number] EXAMS: CPT CODE: [id number] LTD 67921 <Continued> [facility] NAME: [facility] Radiology Department PHYS: Shira Truong MD [address] : 1995 AGE: 25 SEX: F [place], [place] [address] LOC: F.2624 A PHONE #: [phone] EXAM DATE: STATUS: ADM IN FAX #: [phone] RAD NO: Page 3 Signed ReportARTERIAL BLOOD [id number] 03:03:00 Test Item Value Reference Range Interpretation [...] FIO2 (test code = FIO2A) 21.0 % PaO2/[id number] 03:03:00 Test Item Value Reference Range Interpretation Comments PaO2/FiO2 (test code = ZGX5GUH3) mm/Hg [id number] 03:03:00 Test Item Value Reference Range Interpretation Comments GLUCOSE (test code = GLU/ABG) 201 MG/DL 60-110 H ARTERIAL BLOOD [id number] 03:03:00 Test Item Value Reference Range Interpretation [...] FIO2 (test code = FIO2A) 21.0 % PaO2/[id number] 03:03:00 Test Item Value Reference Range Interpretation Comments PaO2/FiO2 (test code = NUX6RQE2) 471.40 mm/Hg [id number] 03:03:00 Test Item Value Reference Range Interpretation Comments GLUCOSE (test code = GLU/ABG) 201 MG/DL 60-110 H COMPREHENSIVE METABOLIC [id number] 02:23:00 Test Item Value Reference Range Interpretation [...] 48 units/L 46-116 N code = ALKP) [id number] 02:23:00 Test Item Value Reference Range Interpretation Comments LIPASE (test code = LIP) 85 units/L 73-393 N ACETONE [id number] 02:23:00 Test Item Value Reference Range Interpretation Comments ACETONE QUAL (test code = ACETNQL) NEGATIVE NEGATIVE BETA [id number] 02:23:00 Test Item Value Reference Range Interpretation Comments BETA HYDROBUTYRATE (test code = BETHYD) COOXIMETRY [id number] 02:14:00 Test Item Value Reference Range Interpretation Comments HEMOGLOBIN (test code = HGB/ABG) 13.0 g/dL 12-16 N HEMATOCRIT (test code = HCT/ABG) 38 % 37-47 N METHEMOGLOBIN (test code = METHGB) 0.6 % 0.0-1.5 N VENOUS BLOOD [id number] 02:14:00 Test Item Value Reference Range Interpretation [...] code = 21.0 % FIO2V) CBC W/AUTO [id number] 02:00:00 Test Item Value Reference Range Interpretation [...] = PLTMR) UA RFLX MICR CULT IF [id number] 01:47:00 Test Item Value Reference Range Interpretation [...] Suprapubic PainSpecimen Description: CLEAN CATCH COMPREHENSIVE METABOLIC [id number] 01:47:00 Test Item Value Reference Range Interpretation [...] 48 units/L 46-116 N code = ALKP) [id number] 01:47:00 Test Item Value Reference Range Interpretation Comments LIPASE (test code = LIP) 85 units/L 73-393 N ACETONE [id number] 01:47:00 Test Item Value Reference Range Interpretation Comments ACETONE QUAL (test code = ACETNQL) NEGATIVE BETA [id number] 01:47:00 Test Item Value Reference Range Interpretation Comments BETA HYDROBUTYRATE (test code = BETHYD) ISLET CELL AB [id number] 14:36:00 Test Item Value Reference Range Interpretation Comments ISLET CELL AB Refer to individual AUTOVERIFICATION (test Islet Cell Ab code = 2556) and/or Islet Cell Ab Titer results. BLOOD [id number] 00:00:00 Test Item Value Reference Range Interpretation Comments CULTURE (BEAKER) (test No growth in 5 days code = 1095) BLOOD [id number] 00:00:00 Test Item Value Reference Range Interpretation Comments CULTURE (BEAKER) (test No growth in 5 days code = 1095) POCT-GLUCOSE [id number] 12:04:00 Test Item Value Reference Range Interpretation Comments POC-GLUCOSE METER 178 mg/dL 70-[address] [facility] 6720 (Vocalocity) (test code = [facility] [place] [address]) [address] POCT-GLUCOSE [id number] 07:46:00 Test Item Value Reference Range Interpretation Comments POC-GLUCOSE METER 210 mg/dL 70-[address] [facility] 6720 ([employer]ocal[employer]) (test code = [facility] [place] 1538) [address] CBC (HEMOGRAM ONLY)2018-08-23 06:39:00 Test Item Value [...] 0-0 (BEAKER) (test code = 413) POCT-GLUCOSE [id number] 22:06:00 Test Item Value Reference Range Interpretation Comments POC-GLUCOSE METER 157 mg/dL 70-110 H TESTED AT [place] [address] ([facility]) (test code = JOHANNY KILG[place] 1538) [address] POCT-GLUCOSE [id number] 17:54:00 Test Item Value Reference Range Interpretation Comments POC-GLUCOSE METER 223 mg/dL 70-110 H TESTED AT [place] [address] ([facility]) (test code = JOHANNY [place] 1538) [address] POCT-GLUCOSE [id number] 12:06:00 Test Item Value Reference Range Interpretation Comments POC-GLUCOSE METER 227 mg/dL 70-110 H TESTED AT [place] [address] ([facility]) (test code = JOHANNY [place] 1538) [address] POCT-GLUCOSE [id number] 07:46:00 Test Item Value Reference Range Interpretation Comments POC-GLUCOSE METER 237 mg/dL 70-110 H TEST[facility] AT [place] [address] [facility] (test code = J[place]ANNY [place] 1538) [address] CBC (HEMOGRAM ONLY)2018-08-22 07:12:00 Test Item Value [...] 0-0 (BEAKER) (test code = 413) POCT-GLUCOSE [id number] 21:37:00 Test Item Value Reference Range Interpretation Comments POC-GLUCOSE METER 264 mg/dL 70-110 H TESTED AT [place] [address] (BEAKER) (test code = JOHANNY James [place] 1538) [address] POCT-GLUCOSE [id number] 17:52:00 Test Item Value Reference Range Interpretation Comments POC-GLUCOSE METER 273 mg/dL 70-110 H TESTED AT [place] [address] (BEAKER) (test code = JOHANNY James [place] 1538) [address] POCT-GLUCOSE [id number] 11:57:00 Test Item Value Reference Range Interpretation Comments POC-GLUCOSE METER 316 mg/dL 70-110 H Notified R Rubén JOHANSEN/TESTED (BEAKER) (test code = AT [facility] [address] [address]) [place] [address] POCT-GLUCOSE [id number] 07:58:00 Test Item Value Reference Range Interpretation Comments POC-GLUCOSE METER 246 mg/dL 70-[address] [facility] 6720 (BEAKER) (test code = JOHANNY James [place] 1538) [address] [id number] 07:27:00 Test Item Value Reference Range Interpretation Comments PHOSPHORUS (BEAKER) (test code = 3.3 mg/dL 2.3-4.7 604) [id number] 07:27:00 Test Item Value Reference Range Interpretation Comments MAGNESIUM (BEAKER) (test code = 2.1 mg/dL 1.6-2.6 627) COMPREHENSIVE METABOLIC [id number] 07:27:00 Test Item Value Reference Range Interpretation [...] NOT APPLICABLE FOR DIALYSIS PATIEN TS. CALCIUM, [id number] 07:03:00 Test Item Value Reference Range Interpretation Comments CALCIUM IONIZED (BEAKER) (test 1.12 mmol/L 1.12-1.27 code = 698) PH, BLOOD (BEAKER) (test code = 7.46 1810) CBC W/PLT COUNT & AUTO [id number] 06:38:00 Test Item Value Reference Range Interpretation [...] PERCENT (BEAKER) (test code = 2801) POCT-GLUCOSE [id number] 22:26:00 Test Item Value Reference Range Interpretation Comments POC-GLUCOSE METER 325 mg/dL 70-110 H Notified R Rubén JOHANSEN/TESTED (BEAKER) (test code = AT [facility] [address] [address]) [facility] [address] POCT-GLUCOSE [id number] 21:46:00 Test Item Value Reference Range Interpretation Comments POC-GLUCOSE METER 312 mg/dL 70-[address] [facility] 67 (BEAKER) (test code = JOHANNY James [place] [address]) [address] BASIC METABOLIC [id number] 21:39:00 Test Item Value Reference Range Interpretation [...] 697) EGFR (BEAKER) (test 89 mL/min/1.73 ESTIMA MAHIN GFR IS code = 1092) sq m NOT ACCURATE CREATININE CLEARANCE IN PREDICTING GLOMERULAR FILTRATION RATE . ESTIMATED GFR I S NOT APPLICABLE FOR DIALYSIS PATIEN TS. [id number] 19:06:00 Test Item Value Reference Range Interpretation Comments PHOSPHORUS (BEAKER) (test code = 3.3 mg/dL 2.3-4.7 604) [id number] 19:06:00 Test Item Value Reference Range Interpretation Comments MAGNESIUM (BEAKER) (test code = 2.2 mg/dL 1.6-2.6 627) [id number] 17:17:00 Test Item Value Reference Range Interpretation Comments PHOSPHORUS (BEAKER) (test code = 3.3 mg/dL 2.3-4.7 604) [id number] 17:17:00 Test Item Value Reference Range Interpretation Comments MAGNESIUM (BEAKER) (test code = 2.3 mg/dL 1.6-2.6 627) BASIC METABOLIC [id number] 17:17:00 Test Item Value Reference Range Interpretation [...] (test code = 697) EGFR (BEAKER) (test 110 mL/min/1.73 ESTIM ATED GFR IS code = 1092) sq m NOT ACCURATE CREATININE CLEARANCE IN PREDICTING GLOMERULAR FILTRATION RATE . ESTIMATED GFR I S NOT APPLICABLE FOR DIALYSIS PATIEN TS. POCT-GLUCOSE [id number] 17:15:00 Test Item Value Reference Range Interpretation Comments POC-GLUCOSE METER 86 mg/dL 70-110 TESTED AT [place] [address] (BEAKER) (test code = JOHANNY James [facility] [address]) POCT-GLUCOSE [id number] 15:29:00 Test Item Value Reference Range Interpretation Comments POC-GLUCOSE METER 176 mg/dL 70-110 H TESTED AT [place] [address] (BEAKER) (test code = JOHANNY James [facility] 1538) [address] POCT-GLUCOSE [id number] 14:05:00 Test Item Value Reference Range Interpretation Comments POC-GLUCOSE METER 198 mg/dL 70-110 H [facility] AT [place] [address] [facility] (test code = JOHANNY James [facility] 1538) [address] POCT-GLUCOSE [id number] 13:02:00 Test Item Value Reference Range Interpretation Comments POC-GLUCOSE METER 148 mg/dL 70-110 H TESTED AT [place] [address] ([facility] (test code = JOHANNY James [facility] 1538) [address] POCT-GLUCOSE [id number] 12:23:00 Test Item Value Reference Range Interpretation Comments POC-GLUCOSE METER 170 mg/dL 70-110 H TESTED AT [place] [address] ([facility] (test code = [facility] [employer] [facility] 1538) [address] [id number] 11:33:00 Test Item Value Reference Range Interpretation Comments PHOSPHORUS (BEAKER) (test code = 3.1 mg/dL 2.3-4.7 604) [id number] 11:33:00 Test Item Value Reference Range Interpretation Comments MAGNESIUM (BEAKER) (test code = 1.8 mg/dL 1.6-2.6 627) BASIC METABOLIC [id number] 11:33:00 Test Item Value Reference Range Interpretation [...] 358) GLUCOSE RANDOM 209 mg/dL 70-105 H ([facility]) (test code = 652) CALCIUM ([facility]) 8.9 mg/dL 8.4-10.2 (test code = 697) EGFR ([facility]) (test 96 mL/min/1.73 ESTIMA MAHIN GFR IS code = 1092) sq m NOT ACCURATE CREATININE CLEARANCE IN PREDICTING GLOMERULAR FILTRATION RATE . ESTIMATED GFR I S NOT APPLICABLE FOR DIALYSIS PATIEN TS. KETONE, [id number] 11:26:00 Test Item Value Reference Range Interpretation Comments KETONES, BLOOD ([facility]) (test code 1.4 mmol/L <0.4 H = 1103) POCT-GLUCOSE [id number] 11:05:00 Test Item Value Reference Range Interpretation Comments POC-GLUCOSE METER 206 mg/dL 70-110 H TESTED AT [place] [address] ([facility]) (test code = [facility] [employer] [facility] 1538) [address] POCT-GLUCOSE [id number] 10:15:00 Test Item Value Reference Range Interpretation Comments POC-GLUCOSE METER 245 mg/dL 70-110 H TESTED AT [place] [address] ([facility]) (test code = [facility] [employer] [facility] 1538) [address] POCT-GLUCOSE [id number] 09:02:00 Test Item Value Reference Range Interpretation Comments POC-GLUCOSE METER 205 mg/dL 70-110 H TESTED AT [place] [address] ([facility]) (test code = [facility] [employer] [facility] 1538) [address] POCT-GLUCOSE [id number] 07:54:00 Test Item Value Reference Range Interpretation Comments POC-GLUCOSE METER 206 mg/dL 70-110 H TESTED AT [place] [address] ([facility]) (test code = [facility] [employer] [facility] 1538) [address] POCT-GLUCOSE [id number] 07:54:00 Test Item Value Reference Range Interpretation Comments POC-GLUCOSE METER 217 mg/dL 70-110 H TESTED AT [place] [address] ([facility]) (test code = [facility] [employer] [facility] 1538) [address] KETONE, [id number] 07:25:00 Test Item Value Reference Range Interpretation Comments KETONES, BLOOD (BEAKER) (test code 4.3 mmol/L <0.4 H = 1103) [id number] 07:00:00 Test Item Value Reference Range Interpretation Comments PHOSPHORUS (BEAKER) (test code = 2.5 mg/dL 2.3-4.7 604) [id number] 07:00:00 Test Item Value Reference Range Interpretation Comments MAGNESIUM (BEAKER) (test code = 2.0 mg/dL 1.6-2.6 627) BASIC METABOLIC [id number] 07:00:00 Test Item Value Reference Range Interpretation [...] 697) EGFR (BEAKER) (test 89 mL/min/1.73 ESTIMA MAHIN GFR IS code = 1092) sq m NOT ACCURATE CREATININE CLEARANCE IN PREDICTING GLOMERULAR FILTRATION RATE . ESTIMATED GFR I S NOT APPLICABLE FOR DIALYSIS PATIEN TS. POCT-GLUCOSE [id number] 06:13:00 Test Item Value Reference Range Interpretation Comments POC-GLUCOSE METER 223 mg/dL 70-110 H TESTED AT [place] [address] ([facility] (test code = [facility] 1538) [address] POCT-GLUCOSE [id number] 05:20:00 Test Item Value Reference Range Interpretation Comments POC-GLUCOSE METER 224 mg/dL 70-[address] [facility] 6720 ([facility] (test code = [facility] 1538) [address] POCT-GLUCOSE [id number] 04:08:00 Test Item Value Reference Range Interpretation Comments POC-GLUCOSE METER 165 mg/dL 70-[address] [facility] 67[address] ([facility] (test code = [facility] 1538) [address] POCT-GLUCOSE [id number] 03:25:00 Test Item Value Reference Range Interpretation Comments POC-GLUCOSE METER 130 mg/dL 70-110 H TESTED AT [place] [address] ([facility]) (test code = JOHANNY James [facility] 1538) [id number] 02:50:00 Test Item Value Reference Range Interpretation Comments PROCALCITONIN (BEAKER) (test code 2.96 ng/mL <0.05 H = 3036) SEPSIS RISK (ng/mL)Low: 0.05-0.50Intermediate: 0.51-2.00High: >=2.01KETONE, [id number] 02:15:00 Test Item Value Reference Range Interpretation Comments KETONES, BLOOD (BEAKER) (test code 3.1 mmol/L <0.4 H = 1103) POCT-GLUCOSE [id number] 02:13:00 Test Item Value Reference Range Interpretation Comments POC-GLUCOSE METER 153 mg/dL 70-110 H TESTED AT [place] [address] ([facility]) (test code = JOHANNY James [facility] 1538) [address] [id number] 02:01:00 Test Item Value Reference Range Interpretation Comments PHOSPHORUS (BEAKER) (test code = 2.4 mg/dL 2.3-4.7 604) [id number] 02:01:00 Test Item Value Reference Range Interpretation Comments MAGNESIUM (BEAKER) (test code = 2.1 mg/dL 1.6-2.6 627) BASIC METABOLIC [id number] 02:01:00 Test Item Value Reference Range Interpretation [...] 697) EGFR (BEAKER) (test 88 mL/min/1.73 ESTIMA MAHIN GFR IS code = 1092) sq m NOT ACCURATE CREATININE CLEARANCE IN PREDICTING GLOMERULAR FILTRATION RATE . ESTIMATED GFR I S NOT APPLICABLE FOR DIALYSIS PATIEN TS. [id number] 02:01:00 Test Item Value Reference Range Interpretation Comments AMYLASE (BEAKER) (test code = 349) 129 U/L 25-125 H [id number] 02:01:00 Test Item Value Reference Range Interpretation [...] code = 756) MEAN PLATELET VOLUME (BEAKER) 9.8 fL 9.4-12.3 (test code = 754) NUCLEATED RED BLOOD CELLS 0 /100 WBC 0-0 (BEAKER) (test code = 413) POCT-GLUCOSE [id number] 01:05:00 Test Item Value Reference Range Interpretation Comments POC-GLUCOSE METER 171 mg/dL 70-110 H TESTED AT [place] [address] [facility] (test code = [place] 1538) [address] POCT-GLUCOSE [id number] 00:32:00 Test Item Value Reference Range Interpretation Comments POC-GLUCOSE METER 171 mg/dL 70-110 H TESTED AT [place] [address] [facility] (test code = [place] 1538) [address] POCT-GLUCOSE [id number] 23:15:00 Test Item Value Reference Range Interpretation Comments POC-GLUCOSE METER 177 mg/dL 70-110 H TESTED AT [place] [address] ([facility]) (test code = [place] 1538) [address] POCT-GLUCOSE [id number] 22:16:00 Test Item Value Reference Range Interpretation Comments POC-GLUCOSE METER 170 mg/dL 70-110 H TESTED AT [place] [address] ([facility]) (test code = [place] 1538) [address] POCT-GLUCOSE [id number] 22:16:00 Test Item Value Reference Range Interpretation Comments POC-GLUCOSE METER 191 mg/dL 70-110 H TESTED AT [place] [address] ([facility]) (test code = [place] 1538) [address] KETONE, [id number] 20:49:00 Test Item Value Reference Range Interpretation Comments KETONES, BLOOD (BEAKER) (test code 3.2 mmol/L <0.4 H = 1103) [id number] 20:46:00 Test Item Value Reference Range Interpretation Comments PHOSPHORUS (BEAKER) (test code = 2.2 mg/dL 2.3-4.7 L 604) [id number] 20:46:00 Test Item Value Reference Range Interpretation Comments MAGNESIUM (BEAKER) (test code = 2.2 mg/dL 1.6-2.6 627) BASIC METABOLIC [id number] 20:46:00 Test Item Value Reference Range Interpretation [...] 697) EGFR (BEAKER) (test 74 mL/min/1.73 ESTIMA MAHIN GFR IS code = 1092) sq m NOT ACCURATE CREATININE CLEARANCE IN PREDICTING GLOMERULAR FILTRATION RATE . ESTIMATED GFR I S NOT APPLICABLE FOR DIALYSIS PATIEN TS. BLOOD GAS, [id number] 20:29:00 Test Item Value Reference Range Interpretation [...] (test code = 1819) 21.0 % POCT-GLUCOSE [id number] 20:09:00 Test Item Value Reference Range Interpretation Comments POC-GLUCOSE METER 219 mg/dL 70-[address] [facility] 6720 (BEAKER) (test code = [facility] [place] 1538) [address] POCT-GLUCOSE [id number] 18:58:00 Test Item Value Reference Range Interpretation Comments POC-GLUCOSE METER 248 mg/dL 70-[address] [facility] 6720 (BEAKER) (test code = [facility] [place] 1538) [address] CT, CTANGIO [id number] 18:36:00Addendum BeginsREPORT STATUS:A Not mentioned in the body of the report, thereis bilateral temporomandibular joint dislocation, with the mandibular condyles lying anterior and superior to the mandibular eminences. Signed: Ho Smith Verified Date/Time: 08/19/201818:36:40 Reading Location: [facility] Radiology Reading RoomAddendum EndsFINAL REPORT CTA brain [...] mass effect. 2. Unremarkable intracranial CTA. Signed: Ho Smith Verified Date/Time: 08/19/2018 13:33:21 Reading Location: [facility] Radiology Reading Room RAD, MANDIBLE, LESS THAN [...] is no radiopaque foreign body. Signed: Ho Smith MDReport Verified Date/Time: 08/19/2018 18:35:55 Reading Location: [facility] Radiology Reading Room POCT-GLUCOSE [id number] 18:22:00 Test Item Value Reference Range Interpretation Comments POC-GLUCOSE METER 222 mg/dL 70-[address] [facility] 67[address] [facility] (test code = [facility] 1538) [address] POCT-GLUCOSE [id number] 16:58:00 Test Item Value Reference Range Interpretation Comments POC-GLUCOSE METER 277 mg/dL 70-[address] [facility] 67 ([facility] (test code = [facility] 1538) [address] [id number] 16:12:00 Test Item Value Reference Range Interpretation Comments PHOSPHORUS (BEAKER) (test code = 2.9 mg/dL 2.3-4.7 604) [id number] 16:12:00 Test Item Value Reference Range Interpretation Comments MAGNESIUM (BEAKER) (test code = 1.7 mg/dL 1.6-2.6 627) BASIC METABOLIC [id number] 16:12:00 Test Item Value Reference Range Interpretation [...] 697) EGFR (BEAKER) (test 64 mL/min/1.73 ESTIMA MAHIN GFR IS code = 1092) sq m NOT ACCURATE CREATININE CLEARANCE IN PREDICTING GLOMERULAR FILTRATION RATE . ESTIMATED GFR I S NOT APPLICABLE FOR DIALYSIS PATIEN TS. KETONE, [id number] 15:46:00 Test Item Value Reference Range Interpretation Comments KETONES, BLOOD ([facility]) (test code 6.0 mmol/L <0.4 H = 1103) POCT-GLUCOSE [id number] 15:18:00 Test Item Value Reference Range Interpretation Comments POC-GLUCOSE METER 322 mg/dL 70-110 H Will Repea t Test/TESTED ([facility]) (test code = AT [address] [address]) [facility] [address] POCT-GLUCOSE [id number] 14:27:00 Test Item Value Reference Range Interpretation Comments POC-GLUCOSE METER 232 mg/dL 70-110 H TESTED AT [place] [address] ([facility]) (test code = [place] James [facility] 1538) [address] POCT-GLUCOSE [id number] 13:05:00 Test Item Value Reference Range Interpretation Comments POC-GLUCOSE METER 240 mg/dL 70-110 H TESTED AT [place] [address] ([facility]) (test code = JOH[place]NY James [facility] 1538) [address] POCT-GLUCOSE [id number] 12:16:00 Test Item Value Reference Range Interpretation Comments POC-GLUCOSE METER 201 mg/dL 70-110 H TESTED AT [place] [address] ([facility]) (test code = JOH[place]NY James [facility] 1538) [address] CT, [id number] 11:46:00FINAL REPORT INDICATION:23-year-old female with abdominal pain. [...] unremarkable. IMPRESSION: No evidence of pancreatitis. Signed: Kelvin Yoo MDReport Verified Date/Time: 08/19/2018 11:46:24 Reading Location: [facility] Diagnostic Imaging Reading Room - [place] [address] BASIC METABOLIC PANEL 2018-08-19 11:17:00 Test Item [...] 697) EGFR (BEAKER) (test 73 mL/min/1.73 ESTIMA MAHIN GFR IS code = 1092) sq m NOT ACCURATE CREATININE CLEARANCE IN PREDICTING GLOMERULAR FILTRATION RATE . ESTIMATED GFR I S NOT APPLICABLE FOR DIALYSIS PATIEN TS. [id number] 11:12:00 Test Item Value Reference Range Interpretation Comments PHOSPHORUS (BEAKER) (test code = 3.8 mg/dL 2.3-4.7 604) POCT-GLUCOSE [id number] 10:49:00 Test Item Value Reference Range Interpretation Comments POC-GLUCOSE METER 172 mg/dL 70-[address] [facility] 6720 (BEAKER) (test code = [place] 1538) [address] KETONE, [id number] 10:37:00 Test Item Value Reference Range Interpretation Comments KETONES, BLOOD (BEAKER) (test code 4.2 mmol/L <0.4 H = 1103) HEMOGLOBIN [id number] 10:29:00 Test Item Value Reference Range Interpretation Comments HEMOGLOBIN A1C (BEAKER) (test code = 15.3 % 4.3-6.1 H 368) BLOOD GAS, [id number] 10:23:00 Test Item Value Reference Range Interpretation [...] (test code = 1819) 21.0 % POCT-GLUCOSE [id number] 10:02:00 Test Item Value Reference Range Interpretation Comments POC-GLUCOSE METER 145 mg/dL 70-[address] [facility] 6720 (BEAKER) (test code = [facility] Erika [facility] 1538) [address] POCT-GLUCOSE [id number] 09:04:00 Test Item Value Reference Range Interpretation Comments POC-GLUCOSE METER 168 mg/dL 70-[address] [facility] 6720 (BEAKER) (test code = [facility] 1538) [address] POCT-GLUCOSE [id number] 07:47:00 Test Item Value Reference Range Interpretation Comments POC-GLUCOSE METER 187 mg/dL 70-[address] [facility] 6720 (BEAKER) (test code = [facility] 1538) [address] BLOOD GAS, [id number] 07:14:00 Test Item Value Reference Range Interpretation [...] code = 1819) 21.0 % BASIC METABOLIC [id number] 07:13:00 Test Item Value Reference Range Interpretation [...] 697) EGFR (BEAKER) (test 60 mL/min/1.73 ESTIMA MAHIN GFR IS code = 1092) sq m NOT ACCURATE CREATININE CLEARANCE IN PREDICTING GLOMERULAR FILTRATION RATE . ESTIMATED GFR I S NOT APPLICABLE FOR DIALYSIS PATIEN TS. [id number] 07:11:00 Test Item Value Reference Range Interpretation Comments MAGNESIUM (BEAKER) (test code = 2.0 mg/dL 1.6-2.6 627) POCT-GLUCOSE [id number] 07:09:00 Test Item Value Reference Range Interpretation Comments POC-GLUCOSE METER 183 mg/dL 70-[address] [facility] 6720 (BEAKER) (test code = [place] 1538) [address] POCT-GLUCOSE [id number] 06:19:00 Test Item Value Reference Range Interpretation Comments POC-GLUCOSE METER 185 mg/dL 70-[address] [facility] 6720 (BEAKER) (test code = [place] 1538) [address] POCT-GLUCOSE [id number] 05:05:00 Test Item Value Reference Range Interpretation Comments POC-GLUCOSE METER 223 mg/dL 70-[address] [facility] 6720 (BEAKER) (test code = JOHANNY James [facility] 1538) [address] POCT-GLUCOSE [id number] 04:17:00 Test Item Value Reference Range Interpretation Comments POC-GLUCOSE METER 235 mg/dL 70-[address] [facility] 6720 (BEAKER) (test code = JOHANNY James [facility] 1538) [address] [id number] 04:07:00 Test Item Value Reference Range Interpretation Comments PROCALCITONIN (BEAKER) (test code 6.19 ng/mL <0.05 H = 3036) SEPSIS RISK (ng/mL)Low: 0.05-0.50Intermediate: 0.51-2.00High: >=[id number] 04:03:00 Test Item Value Reference Range Interpretation Comments PHOSPHORUS (BEAKER) (test code = 1.4 mg/dL 2.3-4.7 LL 604) BASIC METABOLIC [id number] 04:00:00 Test Item Value Reference Range Interpretation [...] 697) EGFR (BEAKER) (test 56 mL/min/1.73 ESTIMA MAHIN GFR IS code = 1092) sq m NOT ACCURATE CREATININE CLEARANCE IN PREDICTING GLOMERULAR FILTRATION RATE . ESTIMATED GFR I S NOT APPLICABLE FOR DIALYSIS PATIEN TS. BASIC METABOLIC [id number] 04:00:00 Test Item Value Reference Range Interpretation [...] 697) EGFR (BEAKER) (test 55 mL/min/1.73 ESTIMA MAHIN GFR IS code = 1092) sq m NOT ACCURATE CREATININE CLEARANCE IN PREDICTING GLOMERULAR FILTRATION RATE . ESTIMATED GFR I S NOT APPLICABLE FOR DIALYSIS PATIEN TS. BLOOD GAS, [id number] 03:52:00 Test Item Value Reference Range Interpretation [...] 70 pg/mL 0-100 (test code = 700) [id number] 03:43:00 Test Item Value Reference Range Interpretation Comments MAGNESIUM (BEAKER) (test code = 2.1 mg/dL 1.6-2.6 627) [id number] 03:43:00 Test Item Value Reference Range Interpretation Comments AMYLASE (BEAKER) (test code = 349) 566 U/L 25-125 H [id number] 03:43:00 Test Item Value Reference Range Interpretation Comments LIPASE (BEAKER) (test code = 749) 124 U/L 8-78 H C-REACTIVE [id number] 03:43:00 Test Item Value Reference Range Interpretation Comments C-REACTIVE PROTEIN (BEAKER) (test 5.56 mg/dL 0.00-0.50 H code = 676) KETONE, [id number] 03:23:00 Test Item Value Reference Range Interpretation [...] 0-0 (BEAKER) (test code = 413) POCT-GLUCOSE [id number] 03:17:00 Test Item Value Reference Range Interpretation Comments POC-GLUCOSE METER 251 mg/dL 70-110 H TESTED AT [place] [address] (BEAKER) (test code = [place] 1538) [address] OSMOLALITY, [id number] 02:24:00 Test Item Value Reference Range Interpretation Comments OSMOLALITY URINE (BEAKER) (test 599 mOsm/kg 40-1400 code = 614) POCT-GLUCOSE [id number] 02:16:00 Test Item Value Reference Range Interpretation Comments POC-GLUCOSE METER 288 mg/dL 70-110 H TESTED AT [place] [address] (BEAKER) (test code = [place] 1538) [address] KETONE, [id number] 01:49:00 Test Item Value Reference Range Interpretation Comments KETONES, BLOOD (BEAKER) (test code 6.1 mmol/L <0.4 H = 1103) POCT-GLUCOSE [id number] 01:13:00 Test Item Value Reference Range Interpretation Comments POC-GLUCOSE METER 254 mg/dL 70-110 H TESTED AT [place] [address] (BEAKER) (test code = [place] 1538) [address] BLOOD GAS, [id number] 01:10:00 Test Item Value Reference Range Interpretation [...] (test code = 1819) 21.0 % POCT-GLUCOSE [id number] 00:05:00 Test Item Value Reference Range Interpretation Comments POC-GLUCOSE METER 288 mg/dL 70-[address] [facility] 6720 (BEAKER) (test code = [place] 1538) [address] BASIC METABOLIC [id number] 23:16:00 Test Item Value Reference Range Interpretation [...] 697) EGFR (BEAKER) (test 51 mL/min/1.73 ESTIMA MAHIN GFR IS code = 1092) sq m NOT ACCURATE CREATININE CLEARANCE IN PREDICTING GLOMERULAR FILTRATION RATE . ESTIMATED GFR I S NOT APPLICABLE FOR DIALYSIS PATIEN TS. OSMOLALITY, [id number] 23:03:00 Test Item Value Reference Range Interpretation Comments OSMOLALITY, SERUM (BEAKER) (test 342 mOsm/kg 275-295 H code = 615) [id number] 23:02:00 Test Item Value Reference Range Interpretation Comments PHOSPHORUS (BEAKER) (test code = 1.1 mg/dL 2.3-4.7 LL 604) [id number] 23:00:00 Test Item Value Reference Range Interpretation Comments MAGNESIUM (BEAKER) (test code = 2.1 mg/dL 1.6-2.6 627) CALCIUM, [id number] 22:47:00 Test Item Value Reference Range Interpretation [...] (BEAKER) (test code = 413) BLOOD GAS, [id number] 22:46:00 Test Item Value Reference Range Interpretation [...] (test code = 1819) 21.0 % KETONE, [id number] 22:46:00 Test Item Value Reference Range Interpretation Comments KETONES, BLOOD (BEAKER) (test code 5.6 mmol/L <0.4 H = 1103) RAD, CHEST, 1 VIEW, NON [id number] 22:44:00Reason for exam:->central line Should this be [...] findings: None. Sig freeman: JR Chela, Geo Mclaughlin Verified Date/Time: 08/18/2018 22:44:52 Reading Location: [address] Reading Room POCT-GLUCOSE [id number] 22:34:00 Test Item Value Reference Range Interpretation Comments POC-GLUCOSE METER 259 mg/dL 70-[address] [facility] 6720 (BEAKER) (test code = [place] 1538) [address] CHLORIDE, RANDOM [id number] 22:28:00 Test Item Value Reference Range Interpretation Comments CHLORIDE URINE (BEAKER) (test code = 88 meq/L 682) Reference Range: No NormalsCREATININE, RANDOM [id number] 22:28:00 Test Item Value Reference Range Interpretation Comments CREATININE URINE (BEAKER) (test 12.5 mg/dL code = 375) Reference Range: No NormalsSODIUM, RANDOM [id number] 22:28:00 Test Item Value Reference Range Interpretation Comments SODIUM URINE (BEAKER) (test code = 143 meq/L 243) Reference Range: No NormalsUREA NITROGEN, RANDOM [id number] 22:28:00 Test Item Value Reference Range Interpretation Comments UREA NITROGEN URINE (BEAKER) (test 154 mg/dL code = 538) Reference Range: No NormalsOSMOLALITY, [id number] 21:53:00 Test Item Value Reference Range Interpretation Comments OSMOLALITY URINE (BEAKER) (test 546 mOsm/kg 40-1400 code = 614) BASIC METABOLIC [id number] 21:07:00 Test Item Value Reference Range Interpretation [...] 697) EGFR (BEAKER) (test 46 mL/min/1.73 ESTIMA MAHIN GFR IS code = 1092) sq m NOT ACCURATE CREATININE CLEARANCE IN PREDICTING GLOMERULAR FILTRATION RATE . ESTIMATED GFR I S NOT APPLICABLE FOR DIALYSIS PATIEN TS. [id number] 21:07:00 Test Item Value Reference Range Interpretation Comments PHOSPHORUS (BEAKER) < mg/dL 2.3-4.7 LL Specimen slightly (test code = 604) hemolyzed POCT-GLUCOSE [id number] 21:06:00 Test Item Value Reference Range Interpretation Comments POC-GLUCOSE METER 381 mg/dL 70-[address] [facility] 6720 (BEAKER) (test code = [place] 1538) [address] POCT-GLUCOSE [id number] 21:06:00 Test Item Value Reference Range Interpretation Comments POC-GLUCOSE METER 437 mg/dL 70-[address] [facility] 6720 (BEAKER) (test code = JOHANNY James [facility] 1538) [address] [id number] 21:05:00 Test Item Value Reference Range Interpretation Comments LIPASE (BEAKER) (test code = 749) 138 U/L 8-78 H [id number] 21:05:00 Test Item Value Reference Range Interpretation Comments AMYLASE (BEAKER) (test code = 349) 669 U/L 25-125 H [id number] 21:04:00 Test Item Value Reference Range Interpretation [...] is 2.5-3.5 for patients with mechanical heart valves.[id number] 21:04:00 Test Item Value Reference Range Interpretation Comments MAGNESIUM (BEAKER) 2.2 mg/dL 1.6-2.6 Specimen slightly (test code = 627) hemolyzed BLOOD GAS, [id number] 21:00:00 Test Item Value Reference Range Interpretation [...] (test code = 1819) 21.0 % HEMOGLOBIN [id number] 21:00:00 Test Item Value Reference Range Interpretation Comments HEMOGLOBIN A1C (BEAKER) (test code = 15.7 % 4.3-6.1 H 368) CT BRAIN WITHOUT IV CONTRAST - [id number] 20:04:00Reason for exam:- >r/o bleedFINAL REPORT CT [...] intracranial hemorrhage or mass effect. Signed: Ho Smith Verified Date/Time: 08/18/2018 20:04:50 Reading Location: [facility] Radiology Reading Room POCT- GLUCOSE [id number] 19:21:00 Test Item Value Reference Range Interpretation Comments POC-GLUCOSE METER 425 mg/dL 70-[address] [facility] 6720 (BEAKER) (test code = JOHANNY James [facility] 1538) [address] [id number] 18:52:00 Test Item Value Reference Range Interpretation Comments PHOSPHORUS (BEAKER) (test code = 604) < mg/dL 2.3-4.7 LL If last glucose was less than 500, may do bedside glucose instead of serum glucose.RAPID DRUG SCREEN, [id number] 18:52:00 Test Item Value Reference Range Interpretation [...] situations. Chain of custody not maintained. Some myov-bjp-ebcajqc medications, as well as adulterants, may cause inaccurate results. Clinical correlation should be applied. A more comprehensive drug screen or confirmation of a detected drug may be performed upon request. BASIC METABOLIC [id number] 18:51:00 Test Item Value Reference Range Interpretation [...] 697) EGFR (BEAKER) (test 40 mL/min/1.73 ESTIMA MAHIN GFR IS code = 1092) sq m NOT ACCURATE CREATININE CLEARANCE IN PREDICTING GLOMERULAR FILTRATION RATE . ESTIMATED GFR I S NOT APPLICABLE FOR DIALYSIS PATIEN TS. If last glucose was less than 500, may do bedside glucose instead of serum glucose.[id number] 18:48:00 Test Item Value Reference Range Interpretation Comments MAGNESIUM (BEAKER) (test code = 2.1 mg/dL 1.6-2.6 627) If last glucose was less than 500, may do bedside glucose instead of serum glucose.KETONE, [id number] 18:45:00 Test Item Value Reference Range Interpretation Comments KETONES, BLOOD (BEAKER) (test code 5.2 mmol/L <0.4 H = 1103) [id number] 18:43:00 Test Item Value Reference Range Interpretation [...] /LPF = 514) SOURCE(BEAKER) (test code = 5635) SCREEN, [id number] 18:35:00 Test Item Value Reference Range Interpretation Comments TEST URINE (BEAKER) (test Negative code = 583) BLOOD GAS, [id number] 18:32:00 Test Item Value Reference Range Interpretation [...] (BEAKER) (test code = 1819) 21.0 % [id number] 18:16:00 Test Item Value Reference Range Interpretation Comments FIBRINOGEN LEVEL 331 mg/dl 225-434 Sample clot mahin, (BEAKER) (test code = notifi ed RN badge 658) #[id number] for recollect. [id number] 18:16:00 Test Item Value Reference Range Interpretation Comments D-DIMER QUANTITATIVE 0.64 MG/L FEU <0.50 H Sample is clotted, (BEAKER) (test code = notifi ed RN badge 671) #[id number] for recollect.This is a corrected result. Previou [...] of thrombosis is within 95-100% range.POCT- GLUCOSE [id number] 18:05:00 Test Item Value Reference Range Interpretation Comments POC-GLUCOSE METER > mg/dL 70-110 HH OUTSIDE ME ASURING (BEAKER) (test code RANGETES MAHIN AT [facility] 6720 = 1538) [place] [address] [id number] 18:01:00 Test Item Value Reference Range Interpretation Comments PROCALCITONIN (BEAKER) (test code 3.19 ng/mL <0.05 H = 3036) SEPSIS RISK (ng/mL)Low: 0.05-0.50Intermediate: 0.51-2.00High: >=2.01CREATINE KINASE (CK), TOTAL AND [id number] 17:50:00 Test Item Value Reference Range Interpretation Comments CREATINE KINASE TOTAL (BEAKER) 54 U/L 29-200 (test code = 380) CREATINE KINASE-MB (BEAKER) (test 1.6 ng/mL 0.0-6.6 code = 750) CREATINE KINASE-MB INDEX (BEAKER) 3.0 % (test code = 395) CK-MB Reference Range:<6.7 Normal6.7-10.0 Borderline>10.0 AbnormalTROPONIN [id number] 17:50:00 Test Item Value Reference Range Interpretation [...] 0-100 (test code = 700) COMPREHENSIVE METABOLIC [id number] 17:48:00 Test Item Value Reference Range Interpretation [...] 347) EGFR (BEAKER) (test 38 mL/min/1.73 ESTIMA MAHIN GFR IS code = 1092) sq m NOT ACCURATE CREATININE CLEARANCE IN PREDICTING GLOMERULAR FILTRATION RATE . ESTIMATED GFR I S NOT APPLICABLE FOR DIALYSIS PATIEN TS. [id number] 17:47:00 Test Item Value Reference Range Interpretation Comments LIPASE (BEAKER) (test code = 749) 329 U/L 8-78 H [id number] 17:47:00 Test Item Value Reference Range Interpretation Comments AMYLASE (BEAKER) (test code = 349) 563 U/L 25-125 H LACTATE DEHYDROGENASE (LDH)2018-08-18 17:47:00 Test Item Value Reference Range Interpretation Comments LACTATE DEHYDROGENASE (BEAKER) (test 255 U/L 125-220 H code = 635) C-REACTIVE [id number] 17:47:00 Test Item Value Reference Range Interpretation Comments C-REACTIVE PROTEIN (BEAKER) (test 1.35 mg/dL 0.00-0.50 H code = 676) LACTIC ACID, VENOUS, WHOLE [id number] 17:41:00 Test Item Value Reference Range Interpretation Comments LACTATE BLOOD VENOUS 2.0 mmol/L 0.5-2.2 Specime n markedly (2) (BEAKER) (test hemolyzed code = 2872) Effective 03/06/2016: Units/Reference Range ChangeNew: 0.5-2.2 mmol/L Previous: 5-20 mg/dLPOCT-LACTIC ACID, [id number] 17:13:00 Test Item Value Reference Range Interpretation Comments POC-LACTIC ACID, 1.9 mmol/L 0.4-1.3 H TESTED AT [facility] 6720 ARTERIAL (BEAKER) [place] [facility] (test code = 2804) [address] POCT-BLOOD GASES, [id number] 17:13:00 Test Item Value Reference Range Interpretation Comments TEMP, CELSIUS-POC 37.0 (BEAKER) (test code = 1834) FIO2-POC (BEAKER) TESTED AT [place] [address] (test code = 1835) [facility] [address] PH, ARTERIAL-POC 7.069 7.350-7.450 LL (BEAKER) (test [...] L ARTERIAL-POC (BEAKER) (test code = 1841) [id number] 17:13:00 Test Item Value Reference Range Interpretation Comments POC-SODIUM (BEAKER) 150 meq/L 135-148 H TESTED A T [place] [address] (test code = 1542) [facility] [address] [id number] 17:13:00 Test Item Value Reference Range Interpretation Comments POC-POTASSIUM 2.4 meq/L 3.6-5.5 LL TESTED AT [place] [address] ([facility]) (test code [facility] [address] = 1540) [id number] 17:13:00 Test Item Value Reference Range Interpretation Comments POC-GLUCOSE ([facility]) 685 mg/dL 70-110 HH TESTED AT [place] [address] (test code = 1855) [place] [address] POCT-CALCIUM [id number] 17:13:00 Test Item Value Reference Range Interpretation Comments POC-CALCIUM IONIZED 1.24 mmol/L 1.12-1.27 TESTED A T [place] [address] ([facility]) (test code = [facility] Erika [facility] 1536) [address] [id number] 17:13:00 Test Item Value Reference Range Interpretation Comments POC-HEMATOCRIT 40 % 36-45 TESTED AT [place] [address] ([facility]) (test code = [facility] Erika [facility] [address] 1857) [id number] 17:13:00 Test Item Value Reference Range Interpretation Comments POC-HEMOGLOBIN 13.6 g/dL 12.0-15.0 TESTED AT [place] [address] ([facility]) (test code [facility] = 1856) [id number] AT [place] [address] [place] [address] POCT-GLUCOSE [id number] 17:07:00 Test Item Value Reference Range Interpretation Comments POC-GLUCOSE METER > mg/dL 70-110 HH OUTSIDE SC ASURING ([facility]) (test code [facility] AT [place] [address] = 1538) [facility] [place] [address]
[2022-02-28 18:16] LABS: Urine Blood 3+ (Negative); Urine Glucose 2+ (Negative); Urine Protein 3+ (Negative); Urine Specific Gravity 1.025 (1.005-1.030)
[2022-02-28] MEDS ORDERED: NA CHLORIDE 0.9% 1,000 ML ONE ×2 (18:41→20:18)
[2022-02-28] MEDS ORDERED: ONDANSETRON 4 MG/2 ML VIAL ONE ×2 (18:41→22:40)
[2022-02-28 18:46] LABS: Barbiturates NEGATIVE (NEGATIVE); Benzodiazepines NEGATIVE (NEGATIVE); Cocaine NEGATIVE (NEGATIVE); METHAMPHETAM NEGATIVE (NEGATIVE); Methadone NEGATIVE (NEGATIVE); Opiates NEGATIVE (NEGATIVE); Phencyclidine NEGATIVE (NEGATIVE); THC Cannibis POSITIVE (NEGATIVE)
[2022-02-28 19:13] LABS: Absolute Lymphocytes (CBC) 0.9 K/uL (0.7-4.9); Hematocrit 45.2 % (36.0-45.0); Lymphocytes % 5.3 % (15.3-44.8); MPV 8.2 fL (7.6-11.3); RBC Red Blood Cell Count 4.83 M/uL (3.86-4.86)
[2022-02-28 19:30] LABS: ALT/SGPT 12 U/L (12-78); AST/SGOT 7 U/L (15-37); Albumin 3.3 g/dL (3.4-5.0); Alkaline Phosphatase 156 U/L (45-117); BUN Blood Urea Nitrogen 14 mg/dL (7-18); Bilirubin Total 0.6 mg/dL (0.2-1.0); Glucose Level 318 mg/dL (74-106); Potassium 4.3 mmol/L (3.5-5.1); Protein, Total 8.7 g/dL (6.4-8.2); Sodium Level 131 mmol/L (136-145)
[2022-02-28 19:36] LABS: Bicarbonate 10 mmol/L (21-32)
[2022-02-28 19:38] LABS: Urine Specific Gravity/Preg 1.025 (1.005-1.030)
--- NOTE | 2022-02-28 19:51 | ER ---
Nurse's Notes [facility] [place] Name: Rosalie Parekh Age: 26 yrs Sex: Female : 1995 Arrival Date: 02/28/2022 Time: 18:05 Bed 20 Private MD: Diagnosis: Other specified diabetes mellitus with ketoacidosis;Vomiting Presentation: 02/28 18:05 Chief complaint: EMS states: n/v frequent urination starting this afternoon. elevated jh6 bs at home, pt took 15units of fast acting insulin. Coronavirus screen: Vaccine status: Patient reports receiving the 2nd dose of the covid vaccine. Patient reports being unvaccinated. Ebola Screen: Patient negative for fever greater than or equal to 101.5 degrees Fahrenheit, and additional compatible Ebola Virus Disease symptoms Patient denies exposure to infectious person. Patient denies travel to an Ebola-affected area in the 21 days before illness onset. Initial Sepsis Screen: Does the patient meet any 2 criteria? No. Patient's initial sepsis screen is negative. Does the patient have a suspected source of infection? No. Patient's initial sepsis screen is negative. Risk Assessment: Do you want to hurt yourself or someone else? Patient reports no desire to harm self or others. Onset of symptoms was February 28, 2022. 18:05 Method Of Arrival: EMS: [facility] 18:05 Acuity: TANYA 3 6 Triage Assessment: 18:08 General: Appears in no apparent distress. Behavior is calm, cooperative. Pain: [facility] Complains of pain in suprapubic area, right inguinal area and left inguinal area Pain currently is 4 out of 10 on a pain scale. Quality of pain is described as sharp, shooting, Pain began suddenly, Is continuous. : Reports urgency, since this am. 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 - Hospitalizations: : No recent hospitalization is reported. Screenin:11 Abuse screen: Denies threats or abuse. Nutritional screening: No deficits noted. [facility] Tuberculosis screening: No symptoms or risk factors identified. Fall Risk None identified. Assessment: 18:10 General: Appears in no apparent distress. comfortable, Behavior is calm, cooperative. 6 Pain: Complains of pain in suprapubic area, right lower quadrant and left lower quadrant Pain currently is 4 out of 10 on a pain scale. Quality of pain is described as crampy, sharp, Pain began suddenly. : Reports urgency, urinary frequency. 19:35 Reassessment: The lab called with a CO2 of 10. informed. 20:59 Reassessment: The assessment was completed in [facility]. There are no medications on the josette MAR, in [facility]. The pt was given a hospital bed, for comfort. 03/01 00:45 Reassessment: Report was given to the ICU nurse that called. Labs will be drawn from the line, for lab, then the pt will be taken upstairs. 00:55 Reassessment: The pt was "flipped" as registration was called. The pt was taken up via josette w/c, with IVF clamped, by the tech. Vital Signs: 02/28 18:05 BP 106 / 78; Pulse 95; Resp 17; Temp 97.8(O); Pulse Ox 100% ; Weight 70.76 kg; Height 5 [facility] ft. 2 in. (157.48 cm); Pain 3/10; 19:29 BP 115 / 88; Pulse 82; Resp 17; Temp 98.5; Pulse Ox 100% on R/A; Pain 0/10; josette 23:09 BP 89 / 63; Pulse 78; Resp 16; Pulse Ox 100% on R/A; Pain 0/10; josette 03/01 00:35 BP 107 / 70; Pulse 83; Resp 16; Temp 98.5; Pulse Ox 100% on R/A; Pain 0/10; josette 02/28 18:05 Body Mass Index 28.53 (70.76 kg, 157.48 cm) [facility] ED Course: 02/28 18:05 Patient arrived in ED. 6 18:05 Lucia Berman, RN is Primary Nurse. 6 18:06 Mari Millan NP is PHCP. [facility] 18:07 Triage completed. jh6 18:10 Arm band placed on left wrist. 6 18:11 Initial lab(s) drawn, by me, sent to lab. Urine collected: clean catch specimen. 6 19:14 Urine --Ancillary (enter results) Sent. kj1 19:20 Primary Nurse role handed off by Lucia Berman, MURTAZA kj1 19:29 Daja Kearns, MURTAZA is Primary Nurse. josette 19:47 Ruben Cook MD is Hospitalizing Provider. 6 19:47 COVID-19 SARS RT PCR (Document "Date of Onset" if Symptomatic) Sent. josette 20:06 COVID-19 SARS RT PCR (Document "Date of Onset" if Symptomatic) Sent. josette 20:45 Destin López MD is Attending Physician. 8 23:12 Bed in low position. Call light in reach. josette 23:12 No provider procedures requiring assistance completed. josette Administered Medications: 22:51 Discontinued: Insulin Drip - (Insulin Regular Human 100 units, NS 0.9% 100 ml) IV at josette calculated rate continuous; Standard concentration 1unit/ml; Dose for DKA is 0.1 units/kg/hr 18:41 Drug: NS 0.9% 1000 ml Route: IV; Rate: 1 bolus; Site: left antecubital; [facility] 18:42 Drug: Zofran (Ondansetron) 4 mg Route: IVP; Site: left antecubital; [facility] 20:18 Drug: Insulin Drip - (Insulin Regular Human 100 units, NS 0.9% 100 ml) {Co-Signature: tw5 josette (Daja Kearns RN).} Route: IV; Rate: calculated rate; Site: right antecubital; 20:35 Drug: NS 0.9% 1000 ml Route: IV; Rate: 1000 ml; Site: left antecubital; josette 03/01 00:39 Follow up: Response: No adverse reaction; IV Status: Completed infusion josette 02/28 20:35 Not Given (Other Intervention Used): NS 0.9% 1000 ml IV at 125 ml/hr continuous la1 20:36 Drug: Pepcid (famotidine) 20 mg Route: IVP; Site: left antecubital; josette 23:08 Follow up: Response: No adverse reaction josette 20:36 Drug: Tylenol 1000 mg Route: PO; josette 23:08 Follow up: Response: No adverse reaction josette 22:51 Drug: morphine 2 mg Route: IVP; Site: right antecubital; josette 23:08 Follow up: Response: No adverse reaction; Pain is decreased josette 22:51 Drug: Zofran (Ondansetron) 4 mg Route: IVP; Site: right antecubital; josette 23:08 Follow up: Response: No adverse reaction josette 23:09 Drug: D5-1/2 NS 1000 ml Route: IV; Rate: 125 ml/hr; Site: right antecubital; Point of Care Testing: Blood Glucose: 19:53 Blood Glucose: 224 mg/dL; josette 22:33 Blood Glucose: 139 mg/dL; josette 03/01 00:06 Blood Glucose: 170 mg/dL; josette Ranges: Outcome: 02/28 19:50 Decision to Hospitalize by Provider. 6 23:13 Condition: stable josette 23:13 Admitted to josette 03/01 01:02 Patient left the ED. josette Signatures: Ervin Webb PA PA jmm Roszak, Josh, PA PA jr8 Zoë Almanza kj1 Graciela Patel tw5 Lucia Berman RN RN 6 Daja Kearns RN RN bo McDonald, Stacey, NP UTILITY MAINTENANCE WORKER 6 Darrel Holliday WIRE PREPARATION WORKER-Cla1 Daja Kearns RN josette
--- NOTE | 2022-02-28 19:51 | EDPHYS ---
Physician Documentation [facility] Name: Rosalie Parekh Age: 26 yrs Sex: Female : 1995 Arrival Date: 02/28/2022 Time: 18:05 Bed 20 Private MD: ED Physician Destin López HPI: 02/28 18:00 This 26 yrs old Female presents to ER via EMS with complaints of Nausea and sm6 Vomiting. 18:00 . States has had multiple episodes of vomiting today. Blood sugar was running high sm6 today in the 's so took 15 units of the rapid acting insulin just prior to arrival. Patient also complains of frequency of urine and dysuria. . Onset: The symptoms/episode began/occurred suddenly, this morning. Severity of symptoms: in the emergency department the symptoms have improved mildly. The patient has experienced similar episodes in the past, when she was in DKA. . The patient has not recently seen a physician. 18:24 Patient denies any abdominal pain or any other symptoms such as body aches or chills. . 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 - Hospitalizations: : No recent hospitalization is reported. ROS: 18:00 Constitutional: Negative for fever, chills, and weight loss, Eyes: Negative for injury, sm6 pain, redness, and discharge, ENT: Negative for injury, pain, and discharge, Neck: Negative for injury, pain, and swelling, Cardiovascular: Negative for chest pain, palpitations, and edema, Respiratory: Negative for shortness of breath, cough, wheezing, and pleuritic chest pain, Back: Negative for injury and pain, : Negative for injury, bleeding, discharge, and swelling, MS/Extremity: Negative for injury and deformity, Skin: Negative for injury, rash, and discoloration, Neuro: Negative for headache, weakness, numbness, tingling, and seizure, Allergy/Immunology: Negative for hives, rash, and allergies, Hematologic/Lymphatic: Negative for swollen nodes, abnormal bleeding, and unusual bruising. 18:00 Abdomen/GI: Positive for nausea and vomiting, Negative for abdominal pain, diarrhea, constipation, abdominal cramps, abdominal distension. 18:00 Endocrine: Positive for polydipsia, polyuria, Negative for weight gain, weight loss. Exam: 18:00 Constitutional: This is a well developed, well nourished patient who is awake, alert, sm6 and in no acute distress. Head/Face: Normocephalic, atraumatic. ENT: Oropharynx with no redness, swelling, or masses, exudates, or evidence of obstruction, uvula midline. Mucous membranes moist. Cardiovascular: Regular rate and rhythm with a normal S1 and S2. Respiratory: Lungs have equal breath sounds bilaterally, clear to auscultation and percussion. No rales, rhonchi or wheezes noted. No increased work of breathing, no retractions or nasal flaring. Abdomen/GI: Soft, non-tender, with normal bowel sounds. No distension or tympany. No guarding or rebound. No evidence of tenderness throughout. Back: No spinal tenderness. No costovertebral tenderness. Full range of motion. Skin: Warm, dry with normal turgor. Normal color with no rashes, no lesions, and no evidence of cellulitis. MS/ Extremity: Full, normal range of motion. Neuro: Awake and alert, GCS 15, oriented to person, place, time, and situation. Sensory grossly intact. 18:00 Psych: Exam negative for exam not indicated, Behavior/mood is cooperative, anxious, Affect is animated, Oriented to person, place, time, Judgement / Insight is normal. Vital Signs: 18:05 BP 106 / 78; Pulse 95; Resp 17; Temp 97.8(O); Pulse Ox 100% ; Weight 70.76 kg; Height 5 jh6 ft. 2 in. (157.48 cm); Pain 3/10; 19:29 BP 115 / 88; Pulse 82; Resp 17; Temp 98.5; Pulse Ox 100% on R/A; Pain 0/10; josette 23:09 BP 89 / 63; Pulse 78; Resp 16; Pulse Ox 100% on R/A; Pain 0/10; josette 03/01 00:35 BP 107 / 70; Pulse 83; Resp 16; Temp 98.5; Pulse Ox 100% on R/A; Pain 0/10; josette 02/28 18:05 Body Mass Index 28.53 (70.76 kg, 157.48 cm) jh6 MDM: 02/28 18:00 Differential Diagnosis DKA, Metabolic oe electrolyte imbalance, dehydration, viral sm6 illness, or UTI. . Data reviewed: vital signs, nurses notes, EMS record. 18:00 ED course: 26-year-old female being seen in the ER that arrived per EMS and in no acute sm6 distress we will perform basic diagnostic test such as blood work and urine. This will be to differentiate between DKA versus other abnormalities. . 18:10 Patient medically screened. [facility] 19:52 Counseling: I had a detailed discussion with the patient and/or guardian regarding: the [facility] historical points, exam findings, and any diagnostic results supporting the discharge/admit diagnosis, lab results, the need for further work-up and treatment in the hospital. Medication response: Zofran relieved the patient's nausea. Physician consultation: Darrel CARRILLO was called at 19:40, regarding admission, and will see patient in ED, would like admission per Dr. Ruben Cook MD would like medications started, insulin drip, Normal Saline second liter. .. 02/28 18:10 Order name: CBC with Diff; Complete Time: 19:32 [facility] 02/28 19:32 Interpretation: Abnormal: WBC 16.9. [facility] 02/28 18:10 Order name: CMP; Complete Time: 19:38 [facility] 02/28 18:10 Order name: UDS; Complete Time: 18:57 [facility] 02/28 18:57 Interpretation: Abnormal: THC POSITIVE. [facility] 02/28 18:10 Order name: Acetone, Serum; Complete Time: 19:38 [facility] 02/28 18:17 Order name: Urine Dipstick-Ancillary; Complete Time: 18:17 EDMS 02/28 18:18 Interpretation: UBLD 3+; UKET 4+; UGLUC 2+. [facility] 02/28 18:19 Order name: Urine Microscopic Only [facility] 02/28 18:28 Order name: Urine --Ancillary (enter results); Complete Time: 19:51 kj1 02/28 19:40 Order name: COVID-19 SARS RT PCR (Document "Date of Onset" if Symptomatic); Complete [facility] Time: 22:47 02/28 19:40 Order name: ABG; Complete Time: 22:47 [facility] 02/28 20:05 Order name: Glucose, Ancillary Testing; Complete Time: 20:08 EDWA 02/28 22:44 Order name: Glucose, Ancillary Testing; Complete Time: 22:47 EDWA 03/01 00:17 Order name: Glucose, Ancillary Testing; Complete Time: 00:57 EDWA 02/28 18:10 Order name: IV Saline Lock; Complete Time: 18:42 [facility] 02/28 18:10 Order name: Labs collected and sent; Complete Time: 18:42 [facility] 02/28 18:10 Order name: Urine Dipstick-Ancillary (obtain specimen); Complete Time: 18:42 [facility] 02/28 18:10 Order name: Urine Test (obtain specimen); Complete Time: 18:42 [facility] 02/28 19:46 Order name: Accucheck Blood Glucose; Complete Time: 19:53 [facility] 02/28 20:01 Order name: Misc. Order: When BGL<250 switch fluids to D51/2 NS at 125ml/hr; Complete tw5 Time: 20:21 Administered Medications: 22:51 Discontinued: Insulin Drip - (Insulin Regular Human 100 units, NS 0.9% 100 ml) IV at calculated rate continuous; Standard concentration 1unit/ml; Dose for DKA is 0.1 units/kg/hr 18:41 Drug: NS 0.9% 1000 ml Route: IV; Rate: 1 bolus; Site: left antecubital; 6 18:42 Drug: Zofran (Ondansetron) 4 mg Route: IVP; Site: left antecubital; [facility] 20:18 Drug: Insulin Drip - (Insulin Regular Human 100 units, NS 0.9% 100 ml) {Co-Signature: tw5 josette (Daja Kearns RN).} Route: IV; Rate: calculated rate; Site: right antecubital; 20:35 Drug: NS 0.9% 1000 ml Route: IV; Rate: 1000 ml; Site: left antecubital; josette 03/01 00:39 Follow up: Response: No adverse reaction; IV Status: Completed infusion 02/28 20:35 Not Given (Other Intervention Used): NS 0.9% 1000 ml IV at 125 ml/hr continuous la1 20:36 Drug: Pepcid (famotidine) 20 mg Route: IVP; Site: left antecubital; josette 23:08 Follow up: Response: No adverse reaction josette 20:36 Drug: Tylenol 1000 mg Route: PO; josette 23:08 Follow up: Response: No adverse reaction josette 22:51 Drug: morphine 2 mg Route: IVP; Site: right antecubital; josette 23:08 Follow up: Response: No adverse reaction; Pain is decreased josette 22:51 Drug: Zofran (Ondansetron) 4 mg Route: IVP; Site: right antecubital; josette 23:08 Follow up: Response: No adverse reaction josette 23:09 Drug: D5-1/2 NS 1000 ml Route: IV; Rate: 125 ml/hr; Site: right antecubital; josette Point of Care Testing: Blood Glucose: 19:53 Blood Glucose: 224 mg/dL; josette 22: Blood Glucose: 139 mg/dL; josette 03/01 00:06 Blood Glucose: 170 mg/dL; josette Ranges: Critical Glucose Levels:Adult <50 mg/dl or >400 mg/dl <40 mg/dl or >180 mg/dl Disposition Summary: 02/28/22 19:50 Hospitalization Ordered Hospitalization Status: Inpatient Admission sm6 Provider: Ruben Cook Location: Intensive Care Unit sm6 Condition: Stable sm6 Problem: chronic sm6 Symptoms: have improved sm6 Bed/Room Type: Standard [facility] Room Assignment: 3-(03/01/22 00:48) cg Diagnosis - Other specified diabetes mellitus with ketoacidosis sm6 - Vomiting sm6 Forms: - Medication Reconciliation Form sm6 - SBAR form sm6 Signatures: Dispatcher [employer] Darrel Flores FNP-C QUANTITATIVE RESEARCHER-Cla1 Judith Jurado RN RN Graciela Phillips tw5 Lucia Berman RN RN 6 Daja Kearns RN RN bo McDonald, Stacey, NP HOLE DIGGER 6 Daja finch Corrections: (The following items were deleted from the chart) 00:48 02/28 19:50 sm6 cg
--- NOTE | 2022-02-28 20:12 | P.HP ---
Certification for Inpatient Patient admitted to: Inpatient Patient will require the following post-hospital care: None Practitioner: I am a practitioner with admitting privileges, knowledge of patient current condition, hospital course, and medical plan of care. Services: Services provided to patient in accordance with Admission requirements found in Title 42 Section 412.3 of the Code of Federal Regulations Patient History Date of Service: 02/28/22 Reason for admission: DKA History of Present Illness: 26-year-old female with history of type 1 diabetes presents emergency department for nausea vomiting and frequent urination. She reports that she had been off of her insulin for a while and recently got a prescription for insulin has had some for last 2 3 days but not been feeling well. Patient was evaluated the emergency department found to be in DKA her anion gap initially was 20 blood sugar was 318 ED provider wishes to admit for DKA. Allergies No Known Allergies Allergy (Verified 04/09/21 06:56) Home Medications: Insulin Aspart [Novolog Flexpen] See Protocol SQ SEECOM #1 box 03/01/21 Insulin Glargine Human [Lantus*] 30 units SQ DAILY 04/10/21 Insulin Glargine,Hum.rec.anlog [Lantus Solostar] 30 unit SQ BEDTIME #2 insuln.pen 12/13/21 - Past Medical/Surgical History Diabetic: Yes -: Diabetes mellitus type 1 -: C section Psychosocial/ Personal History: Patient lives at home with family - Family History Mother -: Diabetes - Social History Smoking Status: Current every day smoker Counseled patient to stop smoking for: less than 10 minutes Smoking therapy provided: No (Patient declined) Alcohol use: No CD- Drugs: No Caffeine use: Yes Place of Residence: Home Review of Systems 10-point ROS is otherwise unremarkable Gastrointestinal: Nausea, Vomiting Genitourinary: Frequency Physical Examination - Physical Exam General: Alert, In no apparent distress, Oriented x3 HEENT: Atraumatic, PERRLA, Mucous membr. moist/pink, EOMI, Sclerae nonicteric Neck: Supple, 2+ carotid pulse no bruit, No LAD, Without JVD or thyroid abnormality Respiratory: Clear to auscultation bilaterally, Normal air movement Cardiovascular: Regular rate/rhythm, Normal S1 S2 Gastrointestinal: Normal bowel sounds, No tenderness Musculoskeletal: No tenderness Integumentary: No rashes Neurological: Normal gait, Normal speech, Normal strength at 5/5 x4 extr, Normal tone, Normal affect Lymphatics: No axilla or inguinal lymphadenopathy - Studies Laboratory Data (last 24 hrs) 02/28/22 18:35: Sodium 131 L, Potassium 4.3, BUN 14, Creatinine 1.36 H, Glucose 318 H, Total Bilirubin 0.6, AST 7 L, ALT 12, Alkaline Phosphatase 156 H 02/28/22 18:35: WBC 16.9 H, Hgb 14.6, Hct 45.2 H, Plt Count 372 Assessment and Plan - Plan Assessment: Diabetes mellitus type 1 with ketoacidosis Plan: Diabetes mellitus type 1 with ketoacidosis: Hourly Accu-Chek, every 4 BMP, insulin drip, IV fluids until anion gap is closed then will switch to long- acting insulin and give diet. Negative for UTI. Instructed she needs to follow-up with endocrinology outpatient. DVT PPX: Lovenox Code status: Full Discharge Plan: Home Plan to discharge in: 48 Hours - Advance Directives Does patient have a Living Will: No Does patient have a Durable POA for Healthcare: No - Code Status/Comfort Care Code Status Assessed: Yes (Full code) Critical Care: No Time Spent Managing Pts Care (In Minutes): 55
[2022-02-28] MEDS ORDERED: NA CHLORIDE 0.9% 100 ML IV ONE (20:18)
[2022-02-28] MEDS ORDERED: INSULIN -REGULAR HUMAN 50 UNIT/0.5 ML ML ONE (20:18)
[2022-02-28] MEDS ORDERED: D5 0.45 NS 1,000 ML IV ONE (20:18)
[2022-02-28] MEDS ORDERED: ACETAMINOPHEN 500 MG TAB ONE (20:19)
[2022-02-28] MEDS ORDERED: FAMOTIDINE 20 MG/2 ML VIAL IV ONE (20:19)
[2022-02-28 22:08] LABS: Arterial Blood Carboxyhemoglob 1.4 % (0-1.5); Blood Gas Oxyhemoglobin 95.5 % (94-97)
[2022-02-28] MEDS ORDERED: ONDANSETRON 4 MG/2 ML VIAL IV PRN (22:21)
[2022-02-28] MEDS ORDERED: NA CHLORIDE 0.9% 1,000 ML IV SCH (22:21)
[2022-02-28] MEDS ORDERED: INSULIN -REGULAR HUMAN 100 UNIT in NA CHLORIDE 0.9% 100 ML IV SCH (22:21)
[2022-02-28] MEDS ORDERED: MORPHINE 2 MG/ML SYR ONE (22:40)
[2022-03-01 01:34] LABS: Potassium 4.7 mmol/L (3.5-5.1)
[2022-03-01] MEDS: D5 0.45 NS 1,000 ML IV SCH ×3 (01:37→15:16)
[2022-03-01 01:54] VITALS: O2SAT 100
[2022-03-01] MEDS: MORPHINE 2 MG/ML SYR IV PRN ×4 (02:55→16:02)
[2022-03-01 05:05] LABS: Magnesium 1.6 mg/dL (1.8-2.4); Potassium 3.9 mmol/L (3.5-5.1)
[2022-03-01] MEDS ORDERED: MAGNESIUM SULFATE 1 gm IVPB 1 GM/100 ML BAG IV ONE (06:00)
[2022-03-01] MEDS ORDERED: POTASSIUM 25 MEQ EFFERV TAB PO ONE ×2 (07:12→16:23)
[2022-03-01] MEDS: ENOXAPARIN 40 MG/0.4 ML SQ SCH (08:17)
[2022-03-01 10:03] LABS: BUN Blood Urea Nitrogen 9 mg/dL (7-18); Glucose Level 214 mg/dL (74-106); Potassium 4.2 mmol/L (3.5-5.1); Sodium Level 132 mmol/L (136-145)
[2022-03-01 10:04] LABS: Bicarbonate 13 mmol/L (21-32)
--- NOTE | 2022-03-01 12:02 | P.PN ---
Subjective Date of Service: 03/01/22 Chief Complaint: DKA Subjective: No new changes, No C/O voiced Physical Examination - Vital Signs Temperature: 98.7 F Blood Pressure: 109/76 Pulse: 102 Respirations: 24 Pulse Ox (%): 97 - Physical Exam General: Alert, In no apparent distress, Oriented x3 HEENT: Atraumatic, Normocephalic, PERRLA Neck: Supple, 2+ carotid pulse no bruit, JVD not distended Respiratory: Clear to auscultation bilaterally, Normal air movement Cardiovascular: Normal pulses, Regular rate/rhythm, Normal S1 S2 Gastrointestinal: Normal bowel sounds, Soft and benign, Non-distended Musculoskeletal: No clubbing, No swelling Integumentary: No rashes, No breakdown Neurological: Normal speech, Normal strength at 5/5 x4 extr, Sensation intact, Cranial nerves 3-12 intact - Studies Laboratory Data (last 24 hrs) 02/28/22 18:35: Sodium 131 L, Potassium 4.3, BUN 14, Creatinine 1.36 H, Glucose 318 H, Total Bilirubin 0.6, AST 7 L, ALT 12, Alkaline Phosphatase 156 H 02/28/22 18:35: WBC 16.9 H, Hgb 14.6, Hct 45.2 H, Plt Count 372 Assessment And Plan - Code Status/Comfort Care Code Status: Full Code Physician Review: Patient Assessed, Agree with Above Assessment and Plan Physician Review Additional Text: Impression/plan DKA Medication nonadherencenot adherent with her twice daily insulin and dosage Plan Slowly improving anion gap Continue every hour glucose monitoring Continue insulin drip Continue BMP Q4 Continue current regimen A1c unknown Less than 12 Resume long-acting insulin twice daily dosage both given patient complaining of nocturnal hypoglycemia might need to reduce dosage to 22 units twice daily Possible hospital stay for 1 more day Time Spent Managing PTS Care (In Minutes): 35
[2022-03-01 14:52] LABS: Potassium 3.7 mmol/L (3.5-5.1)
[2022-03-01] MEDS ORDERED: PHENAZOPYRIDINE 100MG TAB PO ONE (17:00)
[2022-03-01 18:11] LABS: Potassium 3.3 mmol/L (3.5-5.1)
--- NOTE | 2022-03-01 18:16 | RAD REPORT ---
EXAM DESCRIPTION: CT - Abdomen Pelvis Wo Contrast - 03/01/2022 5:47 pm CLINICAL HISTORY: Abdominal pain COMPARISON: None TECHNIQUE: Computed axial tomography of the abdomen and pelvis was obtained. IV and oral contrast we re not requested. All CT scans are performed using dose optimization technique as appropriate and may include automated exposure control or mA/KV adjustment according to patient size. FINDINGS: The evaluation of solid organs, vessels, appendix and bowel is limited secondary to the l ack of contrast administration. The liver, spleen, pancreas, and adrenals appear grossly normal. Mild bilateral hydronephrosis and hydroureter. Bladder wall is thickened. Genitourinary calculus is n ot seen. IUD within the uterus. 2.7 centimeter left ovarian cyst with small amount of free fluid Small umbilical hernia IMPRESSION: 2.7 centimeter left ovarian cyst with small amount of free fluid Mild bilateral hydronephrosis and hydroureter. Bladder wall is thickened. This may indicate cystitis.
[2022-03-01] MEDS ORDERED: POTASSIUM CL SA 10 MEQ TAB PO ONE (18:31)
[2022-03-01] MEDS: CEFTRIAXONE 1,000 MG in NA CHLORIDE 0.9% 50 ML IVPB SCH (18:46)
[2022-03-01] MEDS: KCL 20 MEQ/100 mL IVPB 20 MEQ/100 ML BAG IV SCH ×2 (19:38→22:02)
[2022-03-01] MEDS ORDERED: MORPHINE 2 MG/ML SYR IV ONE (20:20)
[2022-03-01] MEDS ORDERED: ONDANSETRON 4 MG/2 ML VIAL IV ONE (20:21)
[2022-03-01] MEDS: PANTOPRAZOLE 40MG TABLET PO SCH (20:52)
[2022-03-01 21:01] LABS: Potassium 3.4 mmol/L (3.5-5.1)
[2022-03-01] MEDS ORDERED: KETOROLAC 30 MG/ML INJ IV ONE (22:09)
[2022-03-01] MEDS ORDERED: PROMETHAZINE INJ 25 MG/ML AMP IV PRN (22:09)
[2022-03-01 23:40] LABS: Urine Bacteria >50 /HPF (<20); Urine Mucus 2+ /HPF (NONE SEEN)
[2022-03-02] MEDS: METRONIDAZOLE 500mg IVPB 500 MG/100 ML BAG IV SCH ×2 (01:00→08:14)
[2022-03-02] MEDS: D5 0.45 NS 1,000 ML IV SCH ×2 (01:12→06:21)
[2022-03-02 05:02] LABS: Albumin 2.4 g/dL (3.4-5.0); Bilirubin Total 0.3 mg/dL (0.2-1.0); Magnesium 1.9 mg/dL (1.8-2.4); Potassium 3.5 mmol/L (3.5-5.1)
[2022-03-02 05:50] VITALS: BMI 28.9
[2022-03-02] MEDS ORDERED: KCL 20 MEQ/100 mL IVPB 20 MEQ/100 ML BAG IV ONE (07:00)
[2022-03-02] MEDS: CEFTRIAXONE 1,000 MG in NA CHLORIDE 0.9% 50 ML IVPB SCH (08:15)
[2022-03-02] MEDS: ENOXAPARIN 40 MG/0.4 ML SQ SCH (08:15)
[2022-03-02] MEDS: PANTOPRAZOLE 40MG TABLET PO SCH (08:15)
--- NOTE | 2022-03-02 08:41 | P.PN ---
Subjective Date of Service: 03/02/22 Chief Complaint: DKA Subjective: No new changes, No C/O voiced (Status post developed persistent urinary tract symptoms yesterday CT imaging shows bilateral hydro and thickened bladder with cystitis Started on antibiotics Indwelling Fan now) Physical Examination - Vital Signs Temperature: 96.5 F Blood Pressure: 120/78 Pulse: 107 Respirations: 24 Pulse Ox (%): 99 - Physical Exam General: Alert, In no apparent distress, Oriented x3 HEENT: Atraumatic, Normocephalic, PERRLA Neck: Supple, 2+ carotid pulse no bruit Respiratory: Clear to auscultation bilaterally, Normal air movement Cardiovascular: Normal pulses, Regular rate/rhythm, Normal S1 S2 Gastrointestinal: Normal bowel sounds, Soft and benign, Non-distended Musculoskeletal: No clubbing, No swelling Neurological: Normal speech, Normal strength at 5/5 x4 extr Assessment And Plan Physician Review: Patient Assessed, Agree with Above Assessment and Plan Physician Review Additional Text: Impression/plan DKA Medication nonadherencenot adherent with her twice daily insulin and dosage Cystitis Bilateral hydronephrosis Plan DKA resolved We DC insulin drip now, start long-acting insulin twice daily Swish Accu-Cheks to ACH S Continue insulin sliding scale Continue started Rocephin, follow for culture Repeat CT she is showing persistent mild bilateral hydro, will consult urology Continue Fan for next 24 hours then DC and monitor urine volume Resume long-acting insulin twice daily dosage both given patient complaining of nocturnal hypoglycemia might need to reduce dosage to 22 units twice daily Possible hospital stay for 1 more day 03/02/22 08:40
[2022-03-02] MEDS ORDERED: GLUCAGON 1 MG/VIAL IM PRN (08:42)
[2022-03-02] MEDS ORDERED: D50W 25 GM/50 ML SYRINGE IV PRN (08:42)
[2022-03-02] MEDS ORDERED: INSULIN GLARGINE 100 UNIT/ML SQ SCH (09:00)
--- NOTE | 2022-03-02 09:02 | RAD REPORT ---
EXAM DESCRIPTION: CT - Abdomen Pelvis Wo Contrast - 03/02/2022 8:21 am CLINICAL HISTORY: hydronephrosis Abdominal and pelvic pain COMPARISON: Noncontrast CT abdomen and pelvis 03/01/2022 TECHNIQUE: Axial [address] imaging of the abdomen and pelvis was performed without IV contrast. No IV contrast was given because of allergy, abnormal renal function, patient refusal or physician re quest. No oral contrast was administered. All CT scans are performed using dose optimization technique as appropriate and may include automated exposure control or mA/KV adjustment according to patient size. FINDINGS: Minimal dependent atelectasis in each posterior gutter. No acute lung base finding. The liver, spleen, pancreas, gallbladder and biliary tree show no new findings. No adrenal abnormalit y seen. Bilateral hydronephrosis and hydroureter are still present. No change has occurred since prior imagin g. Both kidneys appear edematous. No obstructing or nonobstructing calculi seen. Isodense renal mass es and pyelonephritis cannot be excluded in the absence of IV contrast. Urinary bladder is fully cont racted around a Fan catheter. No accurate assessment of wall thickening or edema can be made in thi s setting. IUD is again identified and normal sized uterus. Enlarged left ovary relative to the right. Left ovar lior cyst has not changed in size in the short interval since prior imaging. Free fluid is present in the cul de sac. This is within physiologic limits. Leaking or rupture from the left ovarian cyst is p ossible. No dilated bowel loops or bowel wall thickening. Partially retrocecal appendix shows no acute finding . No free air or pneumatosis. No hernia, mass or bulky lymphadenopathy. No suspicious bony findings. IMPRESSION: [id number] bilateral hydronephrosis present not clearly different from the prior d ay examination. Both kidneys appear edematous. No obstructing or nonobstructing calculi. Urinary bladder is fully contracted around a Fan catheter precluding accurate comparison of the wal l thickening seen on the prior day study. Cystitis is suspected based on the collective imaging. Bilateral pyelonephritis is also suspected but cannot be fully assessed in the absence of contrast. Hydronephrosis may be due to blood or inflammat ory debris in the ureters. Bladder wall thickening or edema may obstruct flow through the UVJs. Left ovarian cyst is not clearly different from the prior day examination. Free fluid in the cul de s ac is within physiologic limits but could also be from leaking left ovarian cyst. Full assessment is limited is the absence of IV contrast.
[2022-03-02] MEDS ORDERED: INSULIN -REGULAR HUMAN 50 UNIT/0.5 ML ML SQ SCH (11:30)
[2022-03-02 13:22] VITALS: BP 115/78; TEMP 98.3
--- NOTE | 2022-03-02 13:57 | P.DS ---
Admission Date: 02/28/22 Discharge Date: 03/02/22 Disposition: ROUTINE DISCHARGE Discharge Condition: FAIR Reason for Admission: DKA Brief History of Present Illness: History of Present Illness: 26-year-old female with history of type 1 diabetes presents emergency department for nausea vomiting and frequent urination. She reports that she had been off of her insulin for a while and recently got a prescription for insulin has had some for last 2 3 days but not been feeling well. Patient was evaluated the emergency department found to be in DKA her anion gap initially was 20 blood sugar was 318 ED provider wishes to admit for DKA. Home Medications: Insulin Aspart [Novolog Flexpen] See Protocol SQ SEECOM #1 box 03/01/21 Insulin Glargine Human [Lantus*] 30 units SQ DAILY 04/10/21 Insulin Glargine,Hum.rec.anlog [Lantus Solostar] 30 unit SQ BEDTIME #2 insuln.pen 12/13/21 Hospital Course: Hospital course 26-year-old female with history of type I DM noncompliance with nightly dose of Lantus presented because of nausea vomiting abdominal cramps. She was diagnosed with DKA with positive serum acetone. She was started on insulin drip as well as aggressive hydration. She continued to complain of suprapubic pain as well as dysuria. Repeat urinalysis was positive for findings of UTI. She had a CT of the abdomen done with findings of cystitis as well as mild to moderate bilateral hydronephrosis. There was also a left ovarian cyst with fluid surrounding the cyst area. Patient was started on empirical antibiotics for the cystitis. She initially had a Fan placed. A repeat CT 24 hours later shows the persistence of the bilateral hydro . Urology consult was considered. Patient anion gap closed. Patient was started back on her long-acting insulin and advised to continue her twice daily dosing as previously as outpatient. [place]. Need for urology evaluation was discussed with with her but patient repeatedly insisted on leaving. Her Fan was removed and a postvoid residual was minimal less than 15 cc.She can be discharged home with antibiotics for the next 10 days and follow-up with urology as outpatient. Vital Signs/Physical Exam: Temp Pulse Resp BP Pulse Ox 98.3 F 99 H 26 H 115/78 99 03/02/22 12:00 03/02/22 13:00 03/02/22 13:00 03/02/22 13:00 03/02/22 08:41 General: Alert, In no apparent distress, Oriented x3 HEENT: Atraumatic, Normocephalic Neck: Supple, 2+ carotid pulse no bruit, JVD not distended Respiratory: Clear to auscultation bilaterally, Normal air movement Cardiovascular: Normal pulses, Regular rate/rhythm, Normal S1 S2 Gastrointestinal: Normal bowel sounds, Soft and benign, Non-distended Musculoskeletal: No clubbing, No swelling Neurological: Normal gait, Normal speech, Normal strength at 5/5 x4 extr, Normal tone Laboratory Data at Discharge: WBC 16.9 K/uL (4.3-10.9) H 02/28/22 18:35 Hgb 14.6 g/dL (12.0-15.0) 02/28/22 18:35 Hct 45.2 % (36.0-45.0) H 02/28/22 18:35 Plt Count 372 K/uL (152-406) 02/28/22 18:35 Sodium 135 mmol/L (136-145) L 03/02/22 04:25 Potassium Cancelled 03/02/22 Unknown BUN 5 mg/dL (7-18) L 03/02/22 04:25 Creatinine 0.83 mg/dL (0.55-1.3) 03/02/22 04:25 Glucose 128 mg/dL (74-106) H 03/02/22 04:25 Magnesium 1.9 mg/dL (1.8-2.4) 03/02/22 04:25 Total Bilirubin 0.3 mg/dL (0.2-1.0) 03/02/22 04:25 AST 12 U/L (15-37) L 03/02/22 04:25 ALT 13 U/L (12-78) 03/02/22 04:25 Alkaline Phosphatase 124 U/L (45-117) H 03/02/22 04:25 Triglycerides 139 mg/dL (<150) 03/01/22 04:24 Cholesterol 141 mg/dL (<200) 03/01/22 04:24 HDL Cholesterol 25 mg/dL (40-60) L 03/01/22 04:24 Cholesterol/HDL Ratio 5.64 03/01/22 04:24 Home Medications: Insulin Aspart [Novolog Flexpen] See Protocol SQ SEECOM #1 box 03/01/21 Insulin Glargine,Hum.rec.anlog [Lantus Solostar] 30 unit SQ BID 03/01/22 Levofloxacin [Levaquin] 500 mg PO DAILY #10 tablet 03/02/22 New Medications: Levofloxacin [Levaquin] 500 mg PO DAILY #10 tablet Diet: ADA Activity: Ad pepe Followup: NONE,NONE [Primary Care Provider] - Hardik Giron [ACTIVE - CAN ADMIT] - 1 Week Physician Review: Patient Assessed, Agree with Above Assessment and Plan Time spent managing pt's care (in minutes): 35
== END 2022-03-02 14:40 | disposition home or self-care (01) | DRG 638 ==
LOC: ER 18:03 → ERHOLD 20:05 → 3RD-ICU 03-01 00:51
PROVIDERS: ADMIT Internal Medicine; ATTEND Internal Medicine
DX: E10.10 Type 1 diabetes mellitus with ketoacidosis without coma (principal); N13.30 Unspecified hydronephrosis; N30.90 Cystitis, unspecified without hematuria; N83.202 Unspecified ovarian cyst, left side; F41.9 Anxiety disorder, unspecified; F12.90 Cannabis use, unspecified, uncomplicated; F17.210 Nicotine dependence, cigarettes, uncomplicated; Z71.6 Tobacco abuse counseling; Z91.14 Patient's other noncompliance with medication regimen; Z79.4 Long term (current) use of insulin; Z20.822 Contact with and (suspected) exposure to COVID-19; Z83.3 Family history of diabetes mellitus
CPT/HCPCS: 36415; 74176; 80048; 80053; 80061; 80307; 81003; 81015; 81025; 82010; 82805; 82947; 83036; 83735; 85025; 87086; 87088; 99285; J1650; J1815; J2270; J2405; J2550; J3475; J3480; J3490; J7030; J7799; U0003

== ENCOUNTER 2022-09-28 17:45 | Inpatient (IN) | payer OTHER ==
--- OUTSIDE RECORDS SUMMARY | 2022-09-28 17:52 | XMS REPORT | Continuity of Care Document ---
:1995 Author Organization [facility] t Address [address] [place] [address] Care Team Providers Name Role Phone Pcp, Patient Does Not Have A Primary Care Physician [id number] ANSELMO FIGUEROA Attending Clinician Unavailable ANSELMO FIGUEROA Attending Clinician Unavailable Natalie Garcia Attending Clinician Unavailable BEATRIZ MOREIRA Attending Clinician Unavailable Beatriz Moreira MD Attending Clinician Doctor Unassigned, [place] Attending Clinician Unavailable CASIE BRUNO Attending Clinician Unavaila ANSELMO Benavides Admitting Clinician Unavailable Natalie Garcia Admitting Clinician Unavailable CASIE BRUNO Admitting Clinician Unavaila sarai Payers Payer Name Policy Type Policy Number Effective Date Expiration Date Jinny GOMES O [id number] 2018 00:00:00 [place] [id number] 2022 00:00:00 Problems Condition Condition Condition Status Onset Resolution Last Treating Co mments Source Name Details Category Date Date Treatment Clinician Date 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 type 1 06-11 ity of diabetes diabetes 00:00: [place] mellitus mellitus 00 Medica l with with Branch hyperglyce hyperglyce digna digna Noncomplia Noncomplia Disease Active U jayne nce nce 06-11 ity of 00:00: [address] DKA DKA Disease Active Univers (diabetic (diabetic 06-03 ity of ketoacidos ketoacidos 00:00: Te xajinny es) es) [address] [place] [address] Branch Diabetic Diabetic Disease [facility] 2017-11 [facility] ketoac[facility] 0-17 Gisela kes is with is with 00:00: Medical coma coma 00 Center Acute Acute Disease Active 2017-[address] metabolic metabolic 0-16 Luke s encephalop encephalop 00:00: Me dical athy athy 00 Center Allergies, Adverse Reactions, Alerts Allergy Allergy Status Severity Reaction(s) Onset Inactive Treating Comm ents Source Name Type Date Date Clinician No Known DA Active U [facility]20 [place] [facility] 00:[facility]: [address] No Known DA Active U [facility] [place] 00:00: [address] No Known DA Active U 2019- [facility]ie 1-26 [place] 00:00: [address] No Known DA Active U 2019- [facility]ergie 1-26 [place] 00:00: [address] No Known DA Active U 2019- [facility]ergie 0-[facility] [place] [facility] 00:00: [address] No Known DA Active U 2019- [facility] Allergie 0-[facility] [place] s 00:00: [address] NO KNOWN Drug Active Univers ALLERGIE Class ity of S [facility] Social History Social Habit Start Date Stop Date Quantity Comments Source History of tobacco Current smoker Un iversity of use [facility] Exposure to 2022-06-01 2022-06-11 Not sure University SARS-CoV-2 (event) 00:00:00 11:35:00 [facility] Alcohol intake 2020-06-03 2020-06-03 Current University of 00:00:00 00:00:00 non-drinker of [facility] alcohol Branch (finding) Tobacco Comment 2020-06-03 2020-06-03 half a pack a Univer sity of 00:00:00 00:00:00 day has not [place] [facility] since found out Branch she is Cigarettes smoked 2018-08-18 2018-08-18 KATE Giselacornelio current (pack per 00:00:00 00:00:00 Medical Center day) - Reported Tobacco use and 2018-08-18 2018-08-[address] [facility] exposure 00:00:00 00:00:00 Medical Center Sex Assigned At [birth year] KATE Lawss 00:00:00 00:00:00 Medical Center Smoking Status Start Date Stop Date Source Ex-smoker 2020-06-03 00:00:00 2020-06-03 00:00:00 Universi ty [facility] Current every day 2018-08-18 00:00:00 [facility] sm[facility] Center Medications Ordered Filled Start Stop Current Ordering Indication Dosage Frequency Signature Comments Components Source Medication Medication Date Date Medication? Clinician (SIG) Name Name insulin 2021-11 Yes [id number] 24U INJECT 24 Univers degludec 1-19 UNITS ity of ([place] 00:00[place] FLE[place] 00 SKIN EVERY Medi geena U-100) 100 MORNING. Branc h unit/mL (3 mL) InPn blood sugar Yes [id number] Use as Univers diagnostic 06-11 directed ity o f (TRUE 00:00: up to 4 [place] METRIX 00 times a Medical GLUCOSE day Branch TEST STRIP) strip lancets Yes [id number] Use as Uni vers (ONE TOUCH 06-11 directed ity o f DELICA) 33 00:00: [place] 4 [place] gauge Misc 00 times a Medica l day E10.65 Branch insulin Yes [id number] INJECT UP Univers aspart 06-11 TO 10 ity of U-100 00:00: UNITS [place] (NOVOLOG 00 UNDER THE Medica l FLEXPEN SKIN 3 Branch U-100 TIMES A INSULIN) DAY WITH A 100 unit/mL MEAL PER (3 mL) SLIDING injection SCALE Insulin Yes [id number] Use as Uni vers [place], 06-11 directed ity of Disposable, 00:00: four times [place] (BD 00 a day. Medical ULTRA-FINE DX:E10.65 Bran ch MICRO PEN NEEDLE) 32 gauge x 1/4" Ndle blood sugar Yes [id number] Use as Univers diagnostic 06-11 directed ity o f (TRUE 00:00: up to 4 [place] METRIX 00 times a Medical GLUCOSE day Branch TEST STRIP) strip lancets Yes [id number] Use as Uni vers (ONE TOUCH 06-11 directed ity o f DELICA) 33 00:00: [place] 4 [place] gauge Misc 00 times a Medica l day E10.65 Branch insulin Yes [id number] INJECT UP Univers aspart 06-11 TO 10 ity of U-100 00:00: UNITS [place] (NOVOLOG 00 UNDER THE Medica l FLEXPEN SKIN 3 Branch U-100 TIMES A INSULIN) DAY WITH A 100 unit/mL MEAL PER (3 mL) SLIDING injection SCALE Insulin Yes [id number] Use as Uni vers [place], 06-11 directed ity of Disposable, 00:00: four times [place] (BD 00 a day. Medical ULTRA-FINE DX:E10.65 Bran ch MICRO PEN NEEDLE) 32 gauge x 1/4" Ndle insulin Yes [id number] 24U inject 24 Univers degludec 06-11 Units ity of (TRESIB[place] 00:00[place] FLEXTOUCH 00 skin every Medi geena U-100) 100 morning. Branc h unit/mL (3 mL) InPn insulin 2021- No [id number] 24U inject 24 Univers degludec 06-11 11-19 Units ity of (TRESIBA 00:00: 00:00 under the [place] as FLEXTOUCH 00 :00 skin every Medi geena U-100) 100 morning. Branc h unit/mL (3 mL) InPn Insulin NPH 2021- No [id number] 24 units Univers Human 06-04 every ity of [place] 00:00: 00:00 morning(2A [place] (NOVOLIN N 00 :00 M) and 12 Medi geena FLEXPEN) units Branch 100 unit/mL before (3 mL) bedtime ( injection 4PM) insulin 2021- No [id number] INJECT UP Univers aspart 06-04 TO 10 ity of U-100 00:00: 00:00 UNITS [place] (NOVOLOG 00 :00 UNDER THE Medica l FLEXPEN SKIN 3 Branch U-100 TIMES A INSULIN) DAY WITH A 100 unit/mL MEAL PER (3 mL) SLIDING injection SCALE lancets 2021- No [id number] Use as Un thomas (ONE TOUCH 01-04 directed ity of DELICA) 33 00:00: 00:00 up to 4 [place] as gauge Misc 00 :00 times a Medica l day E10.65 Branch TRUE METRIX 2021- No [id number] Use as Univers GLUCOSE 01-04 directed ity of TEST STRIP 00:00: 00:00 up to 4 [place] as strip 00 :00 times a Medical day Branch Insulin 2021- No [id number] Use as Un thomas [place], 106-11 directed ity of Disposable, 00:00: 00:00 four times [place] (BD 00 :00 a day. Medical ULTRA-FINE DX:E10.65 Bran ch MICRO PEN NEEDLE) 32 gauge x 1/4" Ndle ONETOUCH Yes [id number] Use as Un thomas VERIO IQ 3-13 directed ity of METER Kit 00:00[place]10.65 [place] ONETOUCH Yes [id number] Use as Un thomas VERIO IQ 3-13 directed ity of METER Kit 00:00[place]ID E10.65 [place] 00 [facility] insulin 2018- Yes 27U QD Inject [facility] glargine 0-21 0.27 [facility]s [facility] (LANTUS) 00:00: (27 Units Medi geena 100 unit/mL 00 total) Center syringe subcutaneo usly every morning Use as directed. Vital Signs Vital Name Observation Time Observation Value Comments Source Systolic blood 2022-06-11 16:53:00 120 mm[facility]Hg[facility] 2022-06-11 16:53:00 81 mm[facility]Hg[facility] Heart rate 2022-06-11 16:53:00 93 /min [facility] Body weight 2022-06-11 16:53:00 76.431 kg [facility] BMI 2022-06-11 16:53:00 30.82 kg/m2 [facility] Oxygen saturation 2022-06-11 16:53:00 98 /min [facility] in Arterial blood Medical Br anch by Pulse oximetry Procedures Procedure Date / Time Performed Performing Clinician Sour e POCT HEMOGLOBIN A1C 2022-06-11 16:56:00 Beatriz Moreira [facility] [id number] 2020-11-30 00:00:00 [facility] [id number] 2020-11-30 00:00:00 [facility] Encounters Start End Encounter Admission Attending Care Care Encounter Source Date/Time Date/Time Type Type Clinicians Facility Department ID 2021-08-31 Inpatient U ANSELMO FIGUEROA [facility] [id number] Univers 10:13:06 ANSELMO FIGUEROA it y of [facility] 2020-11-29 Inpatient EM Jose, [facility] LD [id number] [facility] 20:33:00 Ziad 65 [facility] [place] 2020-11-22 Inpatient EL Jose, [facility] OBANTE [id number] [facility] 10:30:00 Ziad 82 [facility] [place] 2020-09-28 Inpatient Jose, [facility] TONY [id number] [facility] 03:41:00 Ziad 79 [facility] [place] 2020-09-26 Inpatient EL Jose, [facility] INTE [id number] [facility] 12:48:00 Ziad 85 [facility] [place] 2020-08-05 Inpatient [facility] JED [id number] [facility] 00:52:00 53 [facility] [place] 2022-11-26 2022-11-26 Outpatient R JARAD [facility] [id number] Univers 12:00:00 12:00:00 [facility] 2022-09-20 2022-09-20 Refill Jarad [facility] [id number] Univers 00:00:00 00:00:00 [facility] [id number] it y [facility] 4.2.7.2.686 [place] as JURGEN?BLEA [phone] [address] MEDICAL OFFICE BUILDING 2022-06-11 2022-06-11 Outpatient R JARAD [facility] [id number] Univers 12:00:00 12:40:04 [facility] 2022-06-11 2022-06-11 [facility] [id number] Univers 12:00:00 12:40:04 Visit [facility] [id number] it y of [place] 4.2.7.2.686 [place] as JURGEN?BLEA [phone] Sc dical [address] MEDICAL OFFICE [facility] 2022-06-11 2022-06-11 Outpatient R JARAD [facility] [id number] Univers 12:00:00 12:00:00 [facility] 2022-06-11 2022-06-11 Orders Doctor LAZARO [id number] Univers 00:00:00 00:00:00 Only Unassigned, GENARO [id number] ity of [place] [facility] 4.2.7.2.686 [place] as [phone] [address] 2022-02-25 2022-02-25 Orders Doctor LAZARO [id number] [id number] Univers 00:00:00 00:00:00 Only Unassigned, GENARO [id number] ity of [place] [facility] 4.2.7.2.686 [place] as [phone] [address] 2020-11-22 2020-11-22 Outpatient Jose, SHIRAWU REFE [id number] [facility] 14:51:00 14:51:00 Ziad 76 [facility] 2020-09-26 2020-09-26 Outpatient Jose, SHIRAWU REFE [id number] [facility] 17:05:00 17:05:00 Ziad 75 [facility] 2020-09-20 2020-09-20 Refill Jarad MNDERRELL [id number] 00:00:00 00:00:00 [facility] [place] 350.1.13.10 [place] 4.2.7.2.686 Professio [phone] [facility] 2020-07-16 2020-07-16 Refill Jarad MNDERRELL [id number] 00:00:00 00:00:00 Beatriz [place] [id number] [place] 4.2.7.2.686 [place] [phone] [facility] 2020-06-20 2020-06-20 Outpatient R JARAD [facility] [id number] Univers 10:00:00 10:00:00 BEATRIZ [facility] 2020-05-30 2020-05-30 Outpatient R [facility] [id number] Univers 08:00:00 08:00:00 [facility] 2020-05-09 2020-05-09 Outpatient R JARAD [facility] [id number] Univers 14:00:00 14:00:00 [facility] 2020-01-05 2020-01-05 Outpatient R JARAD [facility] [id number] Univers 11:00:00 11:00:00 [facility] Results Test Description Test Time Test Comments Results Result Comments Source POCT HEMOGLOBIN A1C TEST 2022-06-11 16:56:00 Test Item Value Reference Range Interpretation Comme nts POCT HBA1C (test code = 4548-4) 14 % 4-6 A Lab Interpretation (test code = 46969-9) [facility]normal [facility] [id number] 07:05:48 Test Item Value Reference Range Interpretation Comments HEMOGLOBIN A1c (test 12.7 % 4.2-5.6 H AMERIC AN DIABETES code = 77596) ASSOCIATION IDELINES FOR HGB A1C: PREDIABETES/INC REASED RISK . . . . . . . 5 .7-6.4% DIAGNOSIS OF DI ABETES . . . . . . . . . >=6 .5% WITH CONFIRMATION OR APPROPRIATE SYMPTOMS NOTE: ASSAY MAY BE AFFECTED BY HEMOGLOBINOPATH IES (SICKLE CELL ANEMIA, S- C DISEASE, OTHERS) OR HEATHER FICIALLY LOWERED BY DEC REASED RED CELL SURVIVAL ( HEMOLYTIC ANEMIAS, BLOOD LOSS, ETC.). CONSIDER ALTERN ATE TESTING OR LABORATORY C ONSULTATION. UNLESS OTHERWIS E INDICATED, ALL TESTING PER FORMED ATCLINICAL PATH [facility] [address] [place] [address] LABORATORY DIRE CTOR: Ca HOOVER. CLIA NUMBER [id number] CAP ACCREDITATION N O. [id number] ALBUMIN/CREATININE RATIO, URINE, [id number] 04:35:05 Test Item Value Reference Range Interpretation Comments CREATININE, URINE, 151.8 MG/DL NOT ESTAB RANDOM (test code = 2072) ALBUMIN, URINE, 212.2 MG/DL NOT ESTAB RANDOM (test code = 12130) CALC ALBUMIN/CREAT, 1398 MG/G <30 H Note: RND (test code = Albumin/Cre atinine 38509) ratio reference interval reflec ts ADA and NKF guideli svitlana. PLACENTA THIRD [id number] 11:28:00 Test Item Value Reference Range Interpretation Comments PLACENTA THIRD TRIMESTER (test code = PLACIII) RUN DATE: 12/07/20 [facility] PAGE 1 RUN TIME: 1403 Specimen Inquiry RUN USER: INTERFACE PATIENT: TASHI MOSQUERA LOC: MICHAEL U #: [id number] AGE/SX: 25/F ROOM: [facility] RE11/29/20REG DR: Natalie Garcia MD : 94 BED: A DIS: 12/03/20 STATUS: DIS IN TLOC: SPEC #: [id number] RECD: 12/01/20 STATUS: REKHA KO #: [id number] THERESE: 11/30/20- SUBM DR: Natalie Garcia MD ENTERED: 12/01/20 SP TYPE: PLACIII OTHR DR: ORDERED: LEVEL V SURGICA CODES: [id number] - PLACENTA, NOS PROCEDURES: LEVEL V SURGICA [...] risk for recurrence in future pregnancies. CPT: 35188 pkg/wpd GROSS DESCRIPTION The specimen was received in a container, labeled with the patient's name, unit number and designated "placenta". The following attributes are observed: Cord insertion: 1 cm from margin CONTINUED ON NEXT PAGE RUN DATE: 12/07/20 [facility] PAGE 2 RUN TIME: 1403 Specimen Inquiry RUN USER: INTERFACE SPEC #: [id number] PATIENT: TASHI MOSQUERA #[id number] (Continued) --- GROSS DESCRIPTION (Continued) Cord length: [...] Scattered calcifications are identified. pkrusty/wpd Signed Olive Young 12/07/20 1128 END OF REPORT [id number] 11:58:00 Test Item Value Reference Range Interpretation Comments GLUBED (test code = GLUBED) 71 mg/dL 65-110 N [id number] 06:51:00 Test Item Value Reference Range Interpretation Comments GLUBED (test code = GLUBED) 80 mg/dL 65-110 N [id number] 21:24:00 Test Item Value Reference Range Interpretation Comments GLUBED (test code = GLUBED) 103 mg/dL 65-110 N [id number] 15:15:00 Test Item Value Reference Range Interpretation Comments GLUBED (test code = GLUBED) 206 mg/dL 65-110 H [id number] 09:56:00 Test Item Value Reference Range Interpretation Comments GLUBED (test code = GLUBED) 200 mg/dL 65-110 H [id number] 06:48:00 Test Item Value Reference Range Interpretation Comments GLUBED (test code = GLUBED) 64 mg/dL 65-110 L [id number] 21:12:00 Test Item Value Reference Range Interpretation Comments GLUBED (test code = GLUBED) 186 mg/dL 65-110 H [id number] 14:15:00 Test Item Value Reference Range Interpretation Comments GLUBED (test code = GLUBED) 177 mg/dL 65-110 H [id number] 10:42:00 Test Item Value Reference Range Interpretation Comments GLUBED (test code = GLUBED) 242 mg/dL 65-110 H HGB [id number] 08:21:00 Test Item Value Reference Range Interpretation Comments HEMOGLOBIN (test code = HGB) 11.7 g/dL 10.7-13.9 N HEMATOCRIT (test code = HCT) 36.4 % 32.1-42.1 N [id number] 06:49:00 Test Item Value Reference Range Interpretation Comments GLUBED (test code = GLUBED) 115 mg/dL 65-110 H [id number] 22:46:00 Test Item Value Reference Range Interpretation Comments GLUBED (test code = GLUBED) 129 mg/dL 65-110 H [id number] 19:28:00 Test Item Value Reference Range Interpretation Comments GLUBED (test code = GLUBED) 221 mg/dL 65-110 H [id number] 17:42:00 Test Item Value Reference Range Interpretation Comments GLUBED (test code = GLUBED) 359 mg/dL 65-110 H [id number] 10:51:00 Test Item Value Reference Range Interpretation Comments GLUBED (test code = GLUBED) 126 mg/dL 65-110 H ARTERIAL BLOOD [id number] 10:01:00 Test Item Value Reference Range Interpretation [...] FIO2 (test code = FIO2A) 21.0 % PaO2/[id number] 10:01:00 Test Item Value Reference Range Interpretation Comments PaO2/FiO2 (test code = YTM4NUR0) mm/Hg ARTERIAL BLOOD [id number] 10:01:00 Test Item Value Reference Range Interpretation [...] FIO2 (test code = FIO2A) 21.0 % PaO2/[id number] 10:01:00 Test Item Value Reference Range Interpretation Comments PaO2/FiO2 (test code = ODM2NNW5) 70.40 mm/Hg CAPILLARY BLOOD [id number] 10:00:00 Test Item Value Reference Range Interpretation [...] FIO2 (test 21.0 % code = FIO2C) [id number] 06:32:00 Test Item Value Reference Range Interpretation Comments GLUBED (test code = GLUBED) 183 mg/dL 65-110 H [id number] 02:15:00 Test Item Value Reference Range Interpretation Comments GLUBED (test code = GLUBED) 82 mg/dL 65-110 N [id number] 22:52:00 Test Item Value Reference Range Interpretation Comments GLUBED (test code = GLUBED) 200 mg/dL 65-110 H AG HEPATITIS B [id number] 22:46:00 Test Item Value Reference Range Interpretation Comments AG HEPATITIS B SURFACE (test code NONREACTIVE NONREACTIVE = HBSAG) IS CONSENT FORM SIGNED FOR HIV TESTING? YAB HEPATITIS C [id number] 22:46:00 Test Item Value Reference Range Interpretation Comments AB HEPATITIS C (test code = NONREACTIVE NONREACTIVE HCVAB) SIGNAL TO CUTOFF (test code = 0.03 <0.80 N CUTOFF) IS CONSENT FORM SIGNED FOR HIV TESTING? YAB [id number] 22:46:00 Test Item Value Reference Range Interpretation Comments AB TREPONEMA (test code = TREPAB) NONREACTIVE NONREACTIVE IS CONSENT FORM SIGNED FOR HIV TESTING? YAB HIV 1 22:46:00 Test Item Value Reference Range Interpretation Comments AB HIV 1 2 (test NONREACTIVE NONREACTIVE Done by [facility] code = EYD95FX) 4th Gen HIV Ag/Ab Combo Screen IS CONSENT FORM SIGNED FOR HIV TESTING? YAG HEPATITIS B [id number] 22:16:00 Test Item Value Reference Range Interpretation Comments AG HEPATITIS B SURFACE (test code NONREACTIVE NONREACTIVE = HBSAG) IS CONSENT FORM SIGNED FOR HIV TESTING? YAB HEPATITIS C [id number] 22:16:00 Test Item Value Reference Range Interpretation Comments AB HEPATITIS C (test code = HCVAB) NONREACTIVE SIGNAL TO CUTOFF (test code = CUTOFF) <0.80 IS CONSENT FORM SIGNED FOR HIV TESTING? YAB [id number] 22:16:00 Test Item Value Reference Range Interpretation Comments AB TREPONEMA (test code = TREPAB) NONREACTIVE NONREACTIVE IS CONSENT FORM SIGNED FOR HIV TESTING? B HIV 1 22:16:00 Test Item Value Reference Range Interpretation Comments AB HIV 1 2 (test code = LHD25LK) NONREACTIVE IS CONSENT FORM SIGNED FOR HIV TESTING? YCBC W/AUTO [id number] 21:47:00 Test Item Value Reference Range Interpretation [...] code = PLTMR) COVID 19 Asymptomatic IH [id number] 21:44:00 Test Item Value Reference Range Interpretation Comments COVID 19 NEGATIVE NEGATIVE This test has b een Asymptomatic IH AG authorize d only for the (test code = detection ofpro teins from COVNONPUIAG) SARS-CoV-2, not for any other viruses orpathogens. Ne gative results should be treated as presumptive andconfirmed [...] and/o r diagnosis of CO VID-19 under Imuxomp87 4(b)(1) of the Act, 21 U.S .C. 360bbb-3(b)(1), unless theauthorizatio n is terminated or r evoked sooner. [id number] 10:30:00 Test Item Value Reference Range Interpretation Comments GLUBED (test code = GLUBED) 105 mg/dL 65-110 N [id number] 06:29:00 Test Item Value Reference Range Interpretation Comments GLUBED (test code = GLUBED) 126 mg/dL 65-110 H [id number] 01:02:00 Test Item Value Reference Range Interpretation Comments GLUBED (test code = GLUBED) 72 mg/dL 65-110 N [id number] 20:42:00 Test Item Value Reference Range Interpretation Comments GLUBED (test code = GLUBED) 88 mg/dL 65-110 N [id number] 14:39:00 Test Item Value Reference Range Interpretation Comments GLUBED (test code = GLUBED) 149 mg/dL 65-110 H [id number] 11:20:00 Test Item Value Reference Range Interpretation Comments GLUBED (test code = GLUBED) 74 mg/dL 65-110 N [id number] 06:28:00 Test Item Value Reference Range Interpretation Comments GLUBED (test code = GLUBED) 103 mg/dL 65-110 N [id number] 06:28:00 Test Item Value Reference Range Interpretation Comments GLUBED (test code = GLUBED) 76 mg/dL 65-110 N [id number] 22:06:00 Test Item Value Reference Range Interpretation Comments GLUBED (test code = GLUBED) 78 mg/dL 65-110 N [id number] 16:07:00 Test Item Value Reference Range Interpretation Comments GLUBED (test code = GLUBED) 167 mg/dL 65-110 H [id number] 10:42:00 Test Item Value Reference Range Interpretation Comments GLUBED (test code = GLUBED) 130 mg/dL 65-110 H [id number] 04:47:00 Test Item Value Reference Range Interpretation Comments GLUBED (test code = GLUBED) 78 mg/dL 65-110 N [id number] 20:47:00 Test Item Value Reference Range Interpretation Comments GLUBED (test code = GLUBED) 160 mg/dL 65-110 H [id number] 14:52:00 Test Item Value Reference Range Interpretation Comments GLUBED (test code = GLUBED) 235 mg/dL 65-110 H [id number] 10:54:00 Test Item Value Reference Range Interpretation Comments GLUBED (test code = GLUBED) 148 mg/dL 65-110 H [id number] 07:01:00 Test Item Value Reference Range Interpretation Comments GLUBED (test code = GLUBED) 82 mg/dL 65-110 N [id number] 06:05:00 Test Item Value Reference Range Interpretation Comments GLUBED (test code = GLUBED) 61 mg/dL 65-110 L [id number] 20:39:00 Test Item Value Reference Range Interpretation Comments GLUBED (test code = GLUBED) 312 mg/dL 65-110 H GLYCOSYLATED HEMOGLOBIN [id number] 17:32:00 Test Item Value Reference Range Interpretation Comments GLYCOSYLATED 11.4 % 4.8-5.9 H Any condition t hat HEMOGLOBIN (HA1C) shortens e rythocyte (test code = survival or dec reasesmean GLYHGB) erythrocyte age (e.g., recovery from a cute blood loss,hemolytic anemia) will falsely lo wer HGBA1c resultsregardle ss of the method used. HG BA1c results from nicole young HbSS, HbCC, and [...] H (test code = MBG) COMPREHENSIVE METABOLIC [id number] 17:32:00 Test Item Value Reference Range Interpretation [...] HGBA1c resultsregardle ss of the method used. HG BA1c results from [facility]ole young HbSS, HbCC, and HbSc must be interpreted with cautiongiven th e pathological pr ocesses, including anemi a,increased red cell turnov er, transfusion req uirements, thatadversely i mpact HGBA1c as a mar ker of long-term glyce miccontrol. Alternative for ms of testing such as fructosaminesho uld be considered for these patients. AG HEPATITIS B [id number] 15:30:00 Test Item Value Reference Range Interpretation Comments AG HEPATITIS B SURFACE (test code NONREACTIVE NONREACTIVE = HBSAG) IS CONSENT FORM SIGNED FOR HIV TESTING? YAB HEPATITIS C [id number] 15:30:00 Test Item Value Reference Range Interpretation Comments AB HEPATITIS C (test code = NONREACTIVE NONREACTIVE HCVAB) SIGNAL TO CUTOFF (test code = 0.02 <0.80 N CUTOFF) IS CONSENT FORM SIGNED FOR HIV TESTING? YAB [id number] 15:30:00 Test Item Value Reference Range Interpretation Comments AB TREPONEMA (test code = TREPAB) NONREACTIVE NONREACTIVE IS CONSENT FORM SIGNED FOR HIV TESTING? JUSTINOB HIV 1 15:30:00 Test Item Value Reference Range Interpretation Comments AB HIV 1 2 (test NONREACTIVE NONREACTIVE Done by Sie [facility] code = VAG47AS) 4th Gen HIV Ag/Ab Combo Screen IS CONSENT FORM SIGNED FOR HIV TESTING? [id number] 15:23:00 Test Item Value Reference Range Interpretation Comments GLUBED (test code = GLUBED) 266 mg/dL 65-110 H COVID 19 Asymptomatic IH [id number] 15:16:00 Test Item Value Reference Range Interpretation Comments COVID 19 NEGATIVE NEGATIVE This test has b een Asymptomatic IH AG authorize d only for the (test code = detection ofpro teins from COVNONPUIAG) SARS-CoV-2, not for any other viruses orpathogens. Ne gative results should be treated as presumptive andconfirmed [...] and/o r diagnosis of CO VID-19 under Bmqbtms38 4(b)(1) of the Act, 21 U.S .C. 360bbb-3(b)(1), unless theauthorizatio n is terminated or r evoked sooner. AG HEPATITIS B [id number] 15:08:00 Test Item Value Reference Range Interpretation Comments AG HEPATITIS B SURFACE (test code NONREACTIVE NONREACTIVE = HBSAG) IS CONSENT FORM SIGNED FOR HIV TESTING? YAB HEPATITIS C [id number] 15:08:00 Test Item Value Reference Range Interpretation Comments AB HEPATITIS C (test code = HCVAB) NONREACTIVE SIGNAL TO CUTOFF (test code = CUTOFF) <0.80 IS CONSENT FORM SIGNED FOR HIV TESTING? YAB [id number] 15:08:00 Test Item Value Reference Range Interpretation Comments AB TREPONEMA (test code = TREPAB) NONREACTIVE NONREACTIVE IS CONSENT FORM SIGNED FOR HIV TESTING? YAB HIV 1 15:08:00 Test Item Value Reference Range Interpretation Comments AB HIV 1 2 (test code = WVE77NT) NONREACTIVE IS CONSENT FORM SIGNED FOR HIV TESTING? YUR PROTEIN/CREATININE [id number] 14:46:00 Test Item Value Reference Range Interpretation Comments UR PROTEIN RANDOM (test code = 11.5 mg/dL PROTU) UR CREATININE RANDOM (test 24.6 mg/dL code = CREATU) PROTEIN/CREATININE RATIO (test 460.0 mg/gcrea <200 H code = P/CRATIO) COMPREHENSIVE METABOLIC [id number] 14:38:00 Test Item Value Reference Range Interpretation [...] (HA1C) (test code = GLYHGB) CBC W/AUTO [id number] 14:26:00 Test Item Value Reference Range Interpretation [...] NORMAL NORMAL code = PLTMR) - US [id number] 06:06:00 [facility] : 1995 Sex: F Patient Name: TASHI MOSQUERA Unit No: [id number] EXAMS: CPT CODE: [id number] US LTD 09531 STUDY: -US LTD 09/28/2020 5:04 AM Ordering Physician: Cipriano Alex III, MD Patient Name: TASHI MOSQUERAMR: [id number] : 1995; Age: 25 years y/o Female Clinical Indication: with vaginal bleeding. Comparison: 08/05/2020 FINDINGS: Multiple static images from a limited obstetrical ultrasoun d including olguin scale and M-mode imaging are submitted for interpretation. The examination was performed primarily to assess presentation, size, and dates. The structures were not assessed. GENERAL DESCRIPTION Single live intrauterine at 27 weeks 3 days. Presentation: Breech Placental location: Fundal Placental grade: I Placenta previa: No. Amniotic fluid: Normal in appearance.ALEXY: 17.8 cm Cervix: Trace fluid in the endocervical canal measuring 3.8 cm in length. The maternal ovaries are not visualized. STRUCTURES Brain: Not evaluated. Spine: Not evaluated. Heart: Not evaluated. heart rate: 137 beats per minute. Kidneys: Not evaluated. Urinary Bladder: Not evaluated. Stomach: Not evaluated. Umbilical Cord: Not evaluated. Cord Insertion: Not evaluated. Extremities: Not evaluated. BIOMETRIC MEASUREMENTS Not performed. IMPRESSION: Single live intrauterine at 27 weeks 3 days as above described. [facility] NAME: TASHI MOSQUERA Radiology Department PHYS: Cipriano Michelle III, MD [address] : 1995 AGE: 25 SEX: F [place], [place] [address] LOC: F.TONY PHONE #: [phone] EXAM DATE: 09/28/2020 STATUS: REG ER FAX #: [phone] RAD NO: Page 1 Signed Report (CONTINUED) Patient Name: TASHI MOSQUERA Unit No: [id number] EXAMS: CPT CODE: [id number] LTD 87814 (Continued) ALEXY 17.8 cm. Trace fluid in the [...] ERICA ZHOU RDMS, RVT Probe: Trnscrbd D/ (605) JosefinaTP6 Orig Print D/T: S: 09/28/2020 (0609) [facility] NAME: [facility] Radiology Department PHYS: Cipriano Michelle III, MD [address] : 1995 AGE: 25 SEX: F [place] [address] LOC: AnupTONY PHONE #: [phone] EXAMDATE: 09/28/2020 STATUS: REG ER FAX #: [phone] RAD NO: Page 2 Signed Report Patient Name: TASHI MOSQUERA Unit No: [id number] EXAMS: CPT CODE: [id number] [place] LTD 47370 (Continued) [facility] NAME: [facility] Radiology Department PHYS: Cipriano Michelle III, MD [address] : 1995 AGE: 25 SEX: F [place], [place] [address] LOC: AnupTONY PHONE #: [phone] EXAM DATE: 09/28/2020 STATUS: REG ER FAX #: [phone] RAD NO: Page 3 Signed ReportURINALYSIS [id number] 05:32:00 Test Item Value Reference Range Interpretation [...] SEEN Specimen Comment: JOSE ROSALES SAMPLE: CLEAN [id number] 05:29:00 Test Item Value Reference Range Interpretation Comments GLUBED (test code = GLUBED) 91 mg/dL 65-110 N [id number] 14:54:00 Test Item Value Reference Range Interpretation Comments GLUBED (test code = GLUBED) 95 mg/dL 65-110 N [id number] 14:54:00 Test Item Value Reference Range Interpretation Comments GLUBED (test code = GLUBED) 124 mg/dL 65-110 H [id number] 14:54:00 Test Item Value Reference Range Interpretation Comments GLUBED (test code = GLUBED) 131 mg/dL 65-110 H COMPREHENSIVE METABOLIC [id number] 12:46:00 Test Item Value Reference Range Interpretation [...] 44 units/L 46-116 L code = ALKP) [id number] 12:46:00 Test Item Value Reference Range Interpretation Comments PHOSPHOROUS (test code = PHOS) 1.6 mg/dL 2.5-4.9 L [id number] 12:46:00 Test Item Value Reference Range Interpretation Comments MAGNESIUM (test code = MAG) 1.7 mg/dL 1.8-2.4 L CBC W/AUTO [id number] 12:04:00 Test Item Value Reference Range Interpretation [...] REQUIRED (test NORMAL NORMAL code = PLTMR) [id number] 10:33:00 Test Item Value Reference Range Interpretation Comments GLUBED (test code = GLUBED) 136 mg/dL 65-110 H [id number] 10:33:00 Test Item Value Reference Range Interpretation Comments GLUBED (test code = GLUBED) 180 mg/dL 65-110 H COMPREHENSIVE METABOLIC [id number] 07:48:00 Test Item Value Reference Range Interpretation [...] 42 units/L 46-116 L code = ALKP) [id number] 07:48:00 Test Item Value Reference Range Interpretation Comments PHOSPHOROUS (test code = PHOS) 1.6 mg/dL 2.5-4.9 L [id number] 07:48:00 Test Item Value Reference Range Interpretation Comments MAGNESIUM (test code = MAG) 1.6 mg/dL 1.8-2.4 L [id number] 07:06:00 Test Item Value Reference Range Interpretation Comments GLUBED (test code = GLUBED) 184 mg/dL 65-110 H [id number] 06:27:00 Test Item Value Reference Range Interpretation Comments GLUBED (test code = GLUBED) 187 mg/dL 65-110 H COMPREHENSIVE METABOLIC [id number] 05:46:00 Test Item Value Reference Range Interpretation [...] 42 units/L 46-116 L code = ALKP) [id number] 05:46:00 Test Item Value Reference Range Interpretation Comments MAGNESIUM (test code = MAG) 1.6 mg/dL 1.8-2.4 L CBC W/AUTO [id number] 05:34:00 Test Item Value Reference Range Interpretation [...] REQUIRED (test NORMAL NORMAL code = PLTMR) [id number] 05:22:00 Test Item Value Reference Range Interpretation Comments GLUBED (test code = GLUBED) 208 mg/dL 65-110 H [id number] 04:21:00 Test Item Value Reference Range Interpretation Comments GLUBED (test code = GLUBED) 210 mg/dL 65-110 H [id number] 03:22:00 Test Item Value Reference Range Interpretation Comments GLUBED (test code = GLUBED) 229 mg/dL 65-110 H [id number] 02:22:00 Test Item Value Reference Range Interpretation Comments GLUBED (test code = GLUBED) 247 mg/dL 65-110 H [id number] 01:34:00 Test Item Value Reference Range Interpretation Comments GLUBED (test code = GLUBED) 261 mg/dL 65-110 H [id number] 00:21:00 Test Item Value Reference Range Interpretation Comments GLUBED (test code = GLUBED) 276 mg/dL 65-110 H [id number] 23:23:00 Test Item Value Reference Range Interpretation Comments GLUBED (test code = GLUBED) 282 mg/dL 65-110 H [id number] 22:29:00 Test Item Value Reference Range Interpretation Comments GLUBED (test code = GLUBED) 193 mg/dL 65-110 H [id number] 22:29:00 Test Item Value Reference Range Interpretation Comments GLUBED (test code = GLUBED) 172 mg/dL 65-110 H [id number] 22:29:00 Test Item Value Reference Range Interpretation Comments GLUBED (test code = GLUBED) 123 mg/dL 65-110 H [id number] 22:29:00 Test Item Value Reference Range Interpretation Comments GLUBED (test code = GLUBED) 158 mg/dL 65-110 H [id number] 22:29:00 Test Item Value Reference Range Interpretation Comments GLUBED (test code = GLUBED) 192 mg/dL 65-110 H COMPREHENSIVE METABOLIC [id number] 21:00:00 Test Item Value Reference Range Interpretation Comments SODIUM (test code = 136 mEq/L 135-145 N NA) POTASSIUM (test code 3.5 mEq/L 3.5-5.0 N = K) CHLORIDE (test code 108 mEq/L 100-115 N = CL) CARBON DIOXIDE (test 13 mEq/L 22-31 LL RESULTS VERIFIED BY code = CO2) REPEAT ANALYSIS RESULTS CALLED TO .CONCHA TAREAD BACK & CONFIRME D? YES.BY F.LAB.TT T [...] units/L 46-116 TOTAL (test code = ALKP) [id number] 21:00:00 Test Item Value Reference Range Interpretation Comments PHOSPHOROUS (test code = PHOS) 1.8 mg/dL 2.5-4.9 L [id number] 21:00:00 Test Item Value Reference Range Interpretation Comments MAGNESIUM (test code = MAG) 1.4 mg/dL 1.8-2.4 L OSMOLALITY [id number] 20:51:00 Test Item Value Reference Range Interpretation Comments OSMOLALITY SERUM (test code = 296 mOsm/kg 275-295 H OSMO) OSMOLALITY [id number] 20:51:00 Test Item Value Reference Range Interpretation [...] HGBA1c resultsregardle ss of the method used. HG BA1c results from [facility] k[facility]erswith HbSS, HbCC, and HbSc must be interpreted with cautiongiven th e pathological pr ocesses, including anemi a,increased red cell turnov er, transfusion req uirements, thatadversely i mpact HGBA1c as a mar ker of long-term glyce miccontrol. Alternative for ms of testing such as fructosaminesho uld be considered for these patients. GLYCOSYLATED HEMOGLOBIN [id number] 20:49:00 Test Item Value Reference Range Interpretation Comments GLYCOSYLATED 13.7 % 4.8-5.9 H Any condition t hat HEMOGLOBIN (HA1C) shortens e rythocyte (test code = survival or dec reasesmean GLYHGB) erythrocyte age (e.g., recovery from a cute blood loss,hemolytic anemia) will falsely lo wer HGBA1c resultsregardle ss of the method used. HG BA1c results from [facility]with HbSS, HbCC, and HbSc must be interpreted with cautiongiven th e pathological pr ocesses, including anemia,increase d red cell turnover, trans fusion requirements, thatadversely i mpact HGBA1c as a mar ker of long-term glycemiccontrol . Alternative for ms of testing such as fructosaminesho uld be considered for these patients. MEAN BLOOD GLUCOSE 346 MG/DL 70-110 H (test code = MBG) CBC W/AUTO [id number] 19:25:00 Test Item Value Reference Range Interpretation [...] NORMAL NORMAL code = PLTMR) VBG IONIZED [id number] 19:21:00 Test Item Value Reference Range Interpretation Comments VBG IONIZED CALCIUM (test code = 1.06 mmol/L 0.9-1.29 N ICAL/VBG) COMPREHENSIVE METABOLIC [id number] 19:09:00 Test Item Value Reference Range Interpretation Comments SODIUM (test code = 135 mEq/L 135-145 N NA) POTASSIUM (test code 3.9 mEq/L 3.5-5.0 N = K) CHLORIDE (test code 104 mEq/L 100-115 N = CL) CARBON DIOXIDE (test 10 mEq/L 22-31 LL RESULTS VERIFIED BY code = CO2) REPEAT ANALYSIS RESULTS CALLED TO PATRICK CISNEROS BACK & CONFIRME D? .BY GELYTTT 09/26. ANION GAP (test code 24.20 10-20 [...] 46-116 N TOTAL (test code = ALKP) [id number] 19:09:00 Test Item Value Reference Range Interpretation Comments PHOSPHOROUS (test code = PHOS) 1.9 mg/dL 2.5-4.9 L [id number] 19:09:00 Test Item Value Reference Range Interpretation Comments MAGNESIUM (test code = MAG) 1.5 mg/dL 1.8-2.4 L [id number] 17:36:00 Test Item Value Reference Range Interpretation Comments GLUBED (test code = GLUBED) 212 mg/dL 65-110 H UR PROTEIN/CREATININE [id number] 17:25:00 Test Item Value Reference Range Interpretation Comments UR PROTEIN RANDOM 56.6 mg/dL (test code = PROTU) UR CREATININE 11.1 mg/dL RANDOM (test code = CREATU) PROTEIN/CREATININE 5090.0 <200 H RESULTS V ERIFIED BY RATIO (test code = mg/gcrea REPEAT AN ALYSISRESULTS P/CRATIO) CALLED TO SASHA READ BACK & CONFIRME D? YESBY F.LAB.TTT 09/26 1725 COMPREHENSIVE METABOLIC [id number] 17:24:00 Test Item Value Reference Range Interpretation Comments SODIUM (test code = 136 mEq/L 135-145 N NA) POTASSIUM (test code 4.7 mEq/L 3.5-5.0 N = K) CHLORIDE (test code 103 mEq/L 100-115 N = CL) CARBON DIOXIDE (test 11 mEq/L 22-31 LL RESULTS VERIFIED BY code = CO2) REPEAT ANALYSIS RESULTS CALLED TO SASHA READ BACK & CONFIRME D? YES.BY F.LAB.TT T 09/26/20 9825. ANION GAP (test code 26.90 10-20 H [...] 46-116 N TOTAL (test code = ALKP) [id number] 17:24:00 Test Item Value Reference Range Interpretation Comments PHOSPHOROUS (test code = PHOS) 2.9 mg/dL 2.5-4.9 N [id number] 17:24:00 Test Item Value Reference Range Interpretation Comments AMYLASE (test code = CHELSIE) 77 units/L 30-110 N [id number] 17:24:00 Test Item Value Reference Range Interpretation Comments MAGNESIUM (test code = MAG) 1.7 mg/dL 1.8-2.4 L C REACTIVE [id number] 17:08:00 Test Item Value Reference Range Interpretation Comments C REACTIVE PROTEIN (test code = 0.2 mg/dL 0.6-1.2 L CRP) URINALYSIS [id number] 17:00:00 Test Item Value Reference Range Interpretation [...] = MUCU) RARE NONE SEEN CBC W/AUTO [id number] 16:53:00 Test Item Value Reference Range Interpretation [...] NORMAL NORMAL code = PLTMR) COMPREHENSIVE METABOLIC [id number] 13:57:00 Test Item Value Reference Range Interpretation [...] 48 units/L 46-116 N code = ALKP) [id number] 13:57:00 Test Item Value Reference Range Interpretation Comments LIPASE (test code = LIP) 85 units/L 73-393 N ACETONE [id number] 13:57:00 Test Item Value Reference Range Interpretation Comments ACETONE QUAL (test code = ACETNQL) NEGATIVE NEGATIVE BETA [id number] 13:57:00 Test Item Value Reference Range Interpretation Comments BETA HYDROBUTYRATE (test 2.2 mg/dL () Ref erence Range:All code = BETHYD) Ages (fasting ): 0.2 - 2.8Performed At: [facility] [address] [place] [address] [id number] danial Blanton MD Ph:[phone] [id number] 13:24:00 Test Item Value Reference Range Interpretation Comments GLUBED (test code = GLUBED) 169 mg/dL 65-110 H [id number] 11:17:00 Test Item Value Reference Range Interpretation Comments GLUBED (test code = GLUBED) 91 mg/dL 65-110 N [id number] 07:59:00 Test Item Value Reference Range Interpretation Comments GLUBED (test code = GLUBED) 162 mg/dL 65-110 H - US PREG UT [id number] 04:23:00 Patient Name: TASHI MOSQUERA Unit No: [id number] EXAMS: CPT CODE: [id number] US PREG UT TRANSVAGINAL 33793 STUDY: - US LTD, - US PREG UT TRANSVAGINAL 08/05/2020 12:59 AM Ordering Physician: Shira Arredondo MD Patient Name: TASHI MOSQUERA MR: [id number] : 1995; Age: 25 years y/o Female Clinical Indication: 19weeks,5 days preg, abd pain Comparison: None FINDINGS: Multiple static images from a limited obstetrical ultrasound including olguin scale and M-mode imaging are submitted for interpr etation. The examination was performed primarily to assess [...] evaluated. heart rate: 130 beats per minute. Kidneys:Not evaluated. Urinary Bladder: Not evaluated. Stomach: Not evaluated. Umbilical Cord: Not evaluated. Cord Insertion: Not evaluated. Extremities: Not evaluated. BIOMETRIC MEASUREMENTS Not performed Small free pelvic fluid. [facility] NAME: [facility] Radiology Department PHYS: Natalie Foley MD [address] : 1995 AGE: 25 SEX: F [place], [place] [address] LOC: F.2624 A PHONE #: [phone] EXAM DATE: 08/05/2020 STATUS: ADM IN FAX #: [phone] RAD NO: Page 1 Signed Report (CONTINUED) Patient Name: TASHI MOSQUERA Unit No: [id number] EXAMS: CPT CODE: [id number] US PREG UT TRANSVAGINAL 59317 (Continued) IMPRESSION: Single live intrauterine at 19 weeks 5 days. Trace fluid in the endocervical canal. The structures are not individually characterized on this examination, but no abnormality is appreciated. Small free pelvic fluid.Low-lying posterior grade 1 placenta with tip located [...] Garcia MD Technologist: Charlotte Kidd RDMS Probe: [id number] Trnscrbd D/ (0423) JosefinaTP6 Orig Print D/T: S: 08/05/2020 (0426) [facility] NAME: [facility] Radiology Department PHYS: Natalie Foley MD [address] : 1995 AGE: 25 SEX: F [place] [address] LOC: F.2624 A PHONE #: [phone] EXAM DATE: 08/05/2020 STATUS: ADM IN FAX #: [phone] RAD NO: Page 2 Signed Report Patient Name: TASHI MOSQUERA Unit No: [id number] EXAMS: CPT CODE: [id number] US PREG UT TRANSVAGINAL 56576 (Continued) [facility] NAME: TASHI MOSQUERA Radiology Department PHYS: Natalie Foley MD [address] : 1995 AGE: 25 SEX: F [place] LOC: F.2624 A PHONE #: [phone] EXAM DATE: 08/05/2020 STATUS: ADM INFAX #: [phone] RAD NO: Page 3 Signed Report- US [id number] 04:23:00 Patient Name: ATSHI MOSQUERA Unit No: [id number] EXAMS: CPT CODE: [id number] US LTD 46492 STUDY: - US LTD, - US PREG UT TRANSVAGINAL 08/05/2020 12:59 AM Ordering Physician: Shira Arredondo MD Patient Name: TASHI MOSQUERA MR: [id number] : 1995; Age: 25 years y/o Female [...] Stomach: Not evaluated. Umbilical Cord: Not evaluated. CordInsertion: Not evaluated. Extremities: Not evaluated. BIOMETRIC MEASUREMENTS Not performed Small free pelvic fluid. [facility] NAME: [facility] Radiology Department PHYS: Shira Truong MD [address] : 1995 AGE: 25 SEX: F [place], [place] [address] LOC: FNithin2624 A PHONE #: [phone] EXAM DATE: 08/05/2020 STATUS: ADM IN FAX #: [phone] RAD NO: Page 1 Signed Report (CONTINUED) Patient Name: TASHI MOSQUERA Unit No: [id number] EXAMS: CPT CODE: [id number] LTD 02411 (Continued) IMPRESSION: Single live intrauterine at 19 weeks 5 days. Trace fluid [...] clinical development during . SL: TPAINTER-H . Electronically Signed by Arpit Jaffe MD on08/05/2020 at 0423 Reported and signed by: Arpit Jaffe MD CC: Shira Arredondo MD Technologist: Charlotte Kidd RDMS Probe: Trnscrbd D/ (042) [email or web address] Orig Print D/T: S: 08/05/2020 (0426) [facility] NAME: [facility] Radiology Department PHYS: Shira Truong MD [address] : 1995 AGE: 25 SEX: F [place], [place] [address] LOC: Bora4 A PHONE #: [phone] EXAM DATE: 08/05/2020 STATUS: ADM IN FAX #: [phone] RAD NO: Page 2 Signed Report Patient Name: TASHI MOSQUERA Unit No: [id number] EXAMS: CPT CODE: [id number] LTD 98798 (Continued) [facility] NAME: EDMUNDO MOSQUERAANY Radiology Department PHYS: Shira Truong MD [address] : 1995 AGE: 25 SEX: F [place], [place] [address] LOC: Saloni.2624 A PHONE #: [phone] EXAM DATE: 08/05/2020 STATUS: ADM IN FAX #: RAD NO: Page 3 Signed ReportARTERIAL BLOOD [id number] 03:03:00 Test Item Value Reference Range Interpretation [...] FIO2 (test code = FIO2A) 21.0 % PaO2/[id number] 03:03:00 Test Item Value Reference Range Interpretation Comments PaO2/FiO2 (test code = XYW1COW6) mm/Hg [id number] 03:03:00 Test Item Value Reference Range Interpretation Comments GLUCOSE (test code = GLU/ABG) 201 MG/DL 60-110 H ARTERIAL BLOOD [id number] 03:03:00 Test Item Value Reference Range Interpretation [...] FIO2 (test code = FIO2A) 21.0 % PaO2/[id number] 03:03:00 Test Item Value Reference Range Interpretation Comments PaO2/FiO2 (test code = IKH4FGR1) 471.40 mm/Hg [id number] 03:03:00 Test Item Value Reference Range Interpretation Comments GLUCOSE (test code = GLU/ABG) 201 MG/DL 60-110 H COMPREHENSIVE METABOLIC [id number] 02:23:00 Test Item Value Reference Range Interpretation [...] 48 units/L 46-116 N code = ALKP) [id number] 02:23:00 Test Item Value Reference Range Interpretation Comments LIPASE (test code = LIP) 85 units/L 73-393 N ACETONE [id number] 02:23:00 Test Item Value Reference Range Interpretation Comments ACETONE QUAL (test code = ACETNQL) NEGATIVE NEGATIVE BETA [id number] 02:23:00 Test Item Value Reference Range Interpretation Comments BETA HYDROBUTYRATE (test code = BETHYD) COOXIMETRY [id number] 02:14:00 Test Item Value Reference Range Interpretation Comments HEMOGLOBIN (test code = HGB/ABG) 13.0 g/dL 12-16 N HEMATOCRIT (test code = HCT/ABG) 38 % 37-47 N METHEMOGLOBIN (test code = METHGB) 0.6 % 0.0-1.5 N VENOUS BLOOD [id number] 02:14:00 Test Item Value Reference Range Interpretation [...] code = 21.0 % FIO2V) CBC W/AUTO [id number] 02:00:00 Test Item Value Reference Range Interpretation [...] = PLTMR) UA RFLX MICR CULT IF [id number] 01:47:00 Test Item Value Reference Range Interpretation [...] Suprapubic PainSpecimen Description: CLEAN CATCH COMPREHENSIVE METABOLIC [id number] 01:47:00 Test Item Value Reference Range Interpretation [...] 48 units/L 46-116 N code = ALKP) [id number] 01:47:00 Test Item Value Reference Range Interpretation Comments LIPASE (test code = LIP) 85 units/L 73-393 N ACETONE [id number] 01:47:00 Test Item Value Reference Range Interpretation Comments ACETONE QUAL (test code = ACETNQL) NEGATIVE BETA [id number] 01:47:00 Test Item Value Reference Range Interpretation Comments BETA HYDROBUTYRATE (test code = BETHYD) ISLET CELL AB [id number] 14:36:00 Test Item Value Reference Range Interpretation Comments ISLET CELL AB Refer to individual AUTOVERIFICATION (test Islet Cell Ab code = 2556) and/or Islet Cell Ab Titer results. BLOOD [id number] 00:00:00 Test Item Value Reference Range Interpretation Comments CULTURE (BEAKER) (test No growth in 5 days code = 1095) BLOOD [id number] 00:00:00 Test Item Value Reference Range Interpretation Comments CULTURE (BEAKER) (test No growth in 5 days code = 1095) POCT-GLUCOSE [id number] 12:04:00 Test Item Value Reference Range Interpretation Comments POC-GLUCOSE METER 178 mg/dL 70-110 H TESTED AT [place] [address] [facility] (test code = JOHANNY DUNN [place] 1538) [address] POCT-GLUCOSE [id number] 07:46:00 Test Item Value Reference Range Interpretation Comments POC-GLUCOSE METER 210 mg/dL 70-110 H TESTED AT [place] [address] ([facility]) (test code = CANDIDAMIKAEL James [facility] 1538) [address] CBC (HEMOGRAM ONLY)2018-08-23 06:39:00 Test Item Value [...] RED CELL DISTRIBUTION WIDTH 12.9 % 11.7-14.4 (AKER) (test code = 412) PLATELET COUNT ([facility]) (test 186 K/CU MM 150-450 code = 756) MEAN PLATELET VOLUME (AKER) 10.6 fL 9.4-12.3 (test code = 754) NUCLEATED RED BLOOD CELLS 0 /100 WBC 0-0 ([facility]) (test code = 413) POCT-GLUCOSE [id number] 22:06:00 Test Item Value Reference Range Interpretation Comments POC-GLUCOSE METER 157 mg/dL 70-110 H TESTED AT [place] [address] ([facility]) (test code = [facility] 1538) [address] POCT-GLUCOSE [id number] 17:54:00 Test Item Value Reference Range Interpretation Comments POC-GLUCOSE METER 223 mg/dL 70-110 H TESTED AT [place] [address] ([facility]) (test code = [facility] 1538) [address] POCT-GLUCOSE [id number] 12:06:00 Test Item Value Reference Range Interpretation Comments POC-GLUCOSE METER 227 mg/dL 70-110 H TESTED AT [place] [address] ([facility]) (test code = [facility] 1538) [address] POCT-GLUCOSE [id number] 07:46:00 Test Item Value Reference Range Interpretation Comments POC-GLUCOSE METER 237 mg/dL 70-110 H TESTED AT [place] [address] ([facility]) (test code = [facility] 1538) [address] CBC (HEMOGRAM ONLY)2018-08-22 07:12:00 Test Item Value Reference Range Interpretation Comments WHITE BLOOD CELL COUNT (AKER) 6.1 K/ L 3.5-10.5 (test code = 775) RED BLOOD CELL COUNT (AKER) 4.62 M/ L 3.93-5.22 (test code = 761) HEMOGLOBIN (BEAKER) (test code = 14.1 GM/DL 11.2-15.7 410) HEMATOCRIT (AKER) (test code = 41.9 % 34.1-44.9 411) MEAN CORPUSCULAR VOLUME (AKER) 90.7 fL 79.4-94.8 (test code = 753) MEAN CORPUSCULAR HEMOGLOBIN 30.5 pg 25.6-32.2 (BEAKER) (test code = 751) MEAN CORPUSCULAR HEMOGLOBIN CONC 33.7 GM/DL 32.2-35.5 ([facility]) (test code = 752) RED CELL DISTRIBUTION WIDTH 13.5 % 11.7-14.4 ([facility]) (test code = 412) PLATELET COUNT ([facility]) (test 220 K/CU MM 150-450 code = 756) MEAN PLATELET VOLUME ([facility]) 10.6 fL 9.4-12.3 (test code = 754) NUCLEATED RED BLOOD CELLS 0 /100 WBC 0-0 ([facility]) (test code = 413) POCT-GLUCOSE [id number] 21:37:00 Test Item Value Reference Range Interpretation Comments POC-GLUCOSE METER 264 mg/dL 70-110 H TESTED AT [place] [address] ([facility]) (test code = JOHANNY James [facility] 1538) [address] POCT-GLUCOSE [id number] 17:52:00 Test Item Value Reference Range Interpretation Comments POC-GLUCOSE METER 273 mg/dL 70-110 H TESTED AT [place] [address] ([facility]) (test code = JOHANNY James [facility] 1538) [address] POCT-GLUCOSE [id number] 11:57:00 Test Item Value Reference Range Interpretation Comments POC-GLUCOSE METER 316 mg/dL 70-110 H Notified Erika Montana MD/TESTED ([facility]) (test code = AT [address] 1538) [facility] [address] POCT-GLUCOSE [id number] 07:58:00 Test Item Value Reference Range Interpretation Comments POC-GLUCOSE METER 246 mg/dL 70-110 H TESTED AT [place] [address] ([facility]) (test code = JOHANNY James [place] [address]) [address] [id number] 07:27:00 Test Item Value Reference Range Interpretation Comments PHOSPHORUS ([facility]) (test code = 3.3 mg/dL 2.3-4.7 604) [id number] 07:27:00 Test Item Value Reference Range Interpretation Comments MAGNESIUM ([facility]) (test code = 2.1 mg/dL 1.6-2.6 627) COMPREHENSIVE METABOLIC [id number] 07:27:00 Test Item Value Reference Range Interpretation [...] NOT APPLICABLE FOR DIALYSIS PATIEN TS. CALCIUM, [id number] 07:03:00 Test Item Value Reference Range Interpretation Comments CALCIUM IONIZED (BEAKER) (test 1.12 mmol/L 1.12-1.27 code = 698) PH, BLOOD (BEAKER) (test code = 7.46 1810) CBC W/PLT COUNT & AUTO [id number] 06:38:00 Test Item Value Reference Range Interpretation [...] PERCENT (BEAKER) (test code = 2801) POCT-GLUCOSE [id number] 22:26:00 Test Item Value Reference Range Interpretation Comments POC-GLUCOSE METER 325 mg/dL 70-110 H Notified R N MD/TESTED (BEAKER) (test code = AT [facility] [facility] [place] [address] POCT-GLUCOSE [id number] 21:46:00 Test Item Value Reference Range Interpretation Comments POC-GLUCOSE METER 312 mg/dL 70-[address] [facility] 6720 (BEAKER) (test code = JOHANNY James [facility] 1538) [address] BASIC METABOLIC [id number] 21:39:00 Test Item Value Reference Range Interpretation [...] S NOT APPLICABLE FOR DIALYSIS PATIEN TS. [id number] 19:06:00 Test Item Value Reference Range Interpretation Comments PHOSPHORUS (BEAKER) (test code = 3.3 mg/dL 2.3-4.7 604) [id number] 19:06:00 Test Item Value Reference Range Interpretation Comments MAGNESIUM (BEAKER) (test code = 2.2 mg/dL 1.6-2.6 627) [id number] 17:17:00 Test Item Value Reference Range Interpretation Comments PHOSPHORUS (BEAKER) (test code = 3.3 mg/dL 2.3-4.7 604) [id number] 17:17:00 Test Item Value Reference Range Interpretation Comments MAGNESIUM (BEAKER) (test code = 2.3 mg/dL 1.6-2.6 627) BASIC METABOLIC [id number] 17:17:00 Test Item Value Reference Range Interpretation [...] NOT APPLICABLE FOR DIALYSIS PATIEN TS. POCT-GLUCOSE [id number] 17:15:00 Test Item Value Reference Range Interpretation Comments POC-GLUCOSE METER 86 mg/dL 70-110 TESTED AT [place] [address] ([facility]) (test code = [facility] [address] 1538) POCT-GLUCOSE [id number] 15:29:00 Test Item Value Reference Range Interpretation Comments POC-GLUCOSE METER 176 mg/dL 70-110 H TESTED AT [place] [address] ([facility]) (test code = [facility] 1538) [address] POCT-GLUCOSE [id number] 14:05:00 Test Item Value Reference Range Interpretation Comments POC-GLUCOSE METER 198 mg/dL 70-110 H TESTED AT [place] [address] ([facility]) (test code = [facility] 1538) [address] POCT-GLUCOSE [id number] 13:02:00 Test Item Value Reference Range Interpretation Comments POC-GLUCOSE METER 148 mg/dL 70-110 H TESTED AT [place] [address] ([facility]) (test code = [facility] 1538) [address] POCT-GLUCOSE [id number] 12:23:00 Test Item Value Reference Range Interpretation Comments POC-GLUCOSE METER 170 mg/dL 70-[address] [facility] 6720 (BEAKER) (test code = JOHANNY James [place] 1538) [address] [id number] 11:33:00 Test Item Value Reference Range Interpretation Comments PHOSPHORUS (BEAKER) (test code = 3.1 mg/dL 2.3-4.7 604) [id number] 11:33:00 Test Item Value Reference Range Interpretation Comments MAGNESIUM (BEAKER) (test code = 1.8 mg/dL 1.6-2.6 627) BASIC METABOLIC [id number] 11:33:00 Test Item Value Reference Range Interpretation [...] NOT APPLICABLE FOR DIALYSIS PATIEN TS. KETONE, [id number] 11:26:00 Test Item Value Reference Range Interpretation Comments KETONES, BLOOD (BEAKER) (test code 1.4 mmol/L <0.4 H = 1103) POCT-GLUCOSE [id number] 11:05:00 Test Item Value Reference Range Interpretation Comments POC-GLUCOSE METER 206 mg/dL 70-[address] [facility] 6720 (BEAKER) (test code = JOHANNY James [place] 1538) [address] POCT-GLUCOSE [id number] 10:15:00 Test Item Value Reference Range Interpretation Comments POC-GLUCOSE METER 245 mg/dL 70-[address] [facility] 6720 (BEAKER) (test code = JOHANNY James [facility] 1538) [address] POCT-GLUCOSE [id number] 09:02:00 Test Item Value Reference Range Interpretation Comments POC-GLUCOSE METER 205 mg/dL 70-110 H TESTED AT [place] [address] (BEAKER) ([facility] = [facility] 1538) [address] POCT-GLUCOSE [id number] 07:54:00 Test Item Value Reference Range Interpretation Comments POC-GLUCOSE METER 206 mg/dL 70-110 H TESTED AT [place] [address] (BEAKER) (test code = [facility] Erika [facility] 1538) [address] POCT-GLUCOSE [id number] 07:54:00 Test Item Value Reference Range Interpretation Comments POC-GLUCOSE METER 217 mg/dL 70-110 H TESTED AT [place] [address] (BEAKER) (test code = [facility] Erika [facility] 1538) [address] KETONE, [id number] 07:25:00 Test Item Value Reference Range Interpretation Comments KETONES, BLOOD (BEAKER) (test code 4.3 mmol/L <0.4 H = 1103) [id number] 07:00:00 Test Item Value Reference Range Interpretation Comments PHOSPHORUS (BEAKER) (test code = 2.5 mg/dL 2.3-4.7 604) [id number] 07:00:00 Test Item Value Reference Range Interpretation Comments MAGNESIUM (BEAKER) (test code = 2.0 mg/dL 1.6-2.6 627) BASIC METABOLIC [id number] 07:00:00 Test Item Value Reference Range Interpretation [...] 358) GLUCOSE RANDOM 208 mg/dL 70-105 H ([facility]) (test code = 652) CALCIUM ([facility]) 8.9 mg/dL 8.4-10.2 (test code = 697) EGFR ([facility]) (test 89 mL/min/1.73 ESTIMA OLGA GFR IS code = 1092) sq m NOT ACCURATE CREATININE CLEARANCE IN PREDICTING GLOMERULAR FILTRATION RATE . ESTIMATED GFR I S NOT APPLICABLE FOR DIALYSIS PATIEN TS. POCT-GLUCOSE [id number] 06:13:00 Test Item Value Reference Range Interpretation Comments POC-GLUCOSE METER 223 mg/dL 70-110 H TESTED AT [place] [address] ([facility]) (test code = [facility] 1538) [address] POCT-GLUCOSE [id number] 05:20:00 Test Item Value Reference Range Interpretation Comments POC-GLUCOSE METER 224 mg/dL 70-110 H TESTED AT [place] [address] ([facility]) (test code = [facility] Erika [facility] 1538) [address] POCT-GLUCOSE [id number] 04:08:00 Test Item Value Reference Range Interpretation Comments POC-GLUCOSE METER 165 mg/dL 70-110 H TESTED AT [place] [address] ([facility]) (test code = [facility] 1538) [address] POCT-GLUCOSE [id number] 03:25:00 Test Item Value Reference Range Interpretation Comments POC-GLUCOSE METER 130 mg/dL 70-110 H TESTED AT [place] [address] ([facility]) (test code = [facility] 1538) [address] [id number] 02:50:00 Test Item Value Reference Range Interpretation Comments PROCALCITONIN ([facility]) (test code 2.96 ng/mL <0.05 H = 3036) SEPSIS RISK (ng/mL)Low: 0.05-0.50Intermediate: 0.51-2.00High: >=2.01KETONE, [id number] 02:15:00 Test Item Value Reference Range Interpretation Comments KETONES, BLOOD ([facility]) (test code 3.1 mmol/L <0.4 H = 1103) POCT-GLUCOSE [id number] 02:13:00 Test Item Value Reference Range Interpretation Comments POC-GLUCOSE METER 153 mg/dL 70-[address] [facility] 6720 (BEAKER) (test code = JOHANNY [place] 153) [address] [id number] 02:01:00 Test Item Value Reference Range Interpretation Comments PHOSPHORUS (BEAKER) (test code = 2.4 mg/dL 2.3-4.7 604) [id number] 02:01:00 Test Item Value Reference Range Interpretation Comments MAGNESIUM (BEAKER) (test code = 2.1 mg/dL 1.6-2.6 627) BASIC METABOLIC [id number] 02:01:00 Test Item Value Reference Range Interpretation [...] S NOT APPLICABLE FOR DIALYSIS PATIEN TS. [id number] 02:01:00 Test Item Value Reference Range Interpretation Comments AMYLASE (BEAKER) (test code = 349) 129 U/L 25-125 H [id number] 02:01:00 Test Item Value Reference Range Interpretation [...] RED BLOOD CELLS 0 /100 WBC 0-0 (AKER) (test code = 413) POCT-GLUCOSE [id number] 01:05:00 Test Item Value Reference Range Interpretation Comments POC-GLUCOSE METER 171 mg/dL 70-110 H TESTED AT [place] [address] ([facility]) (test code = [facility] 1538) [address] POCT-GLUCOSE [id number] 00:32:00 Test Item Value Reference Range Interpretation Comments POC-GLUCOSE METER 171 mg/dL 70-110 H TESTED AT [place] [address] ([facility]) (test code = JOHANNY James [facility] 1538) [address] POCT-GLUCOSE [id number] 23:15:00 Test Item Value Reference Range Interpretation Comments POC-GLUCOSE METER 177 mg/dL 70-110 H TESTED AT [place] [address] ([facility]) (test code = [facility] 1538) [address] POCT-GLUCOSE [id number] 22:16:00 Test Item Value Reference Range Interpretation Comments POC-GLUCOSE METER 170 mg/dL 70-110 H TESTED AT [place] [address] ([facility]) (test code = [facility] 1538) [address] POCT-GLUCOSE [id number] 22:16:00 Test Item Value Reference Range Interpretation Comments POC-GLUCOSE METER 191 mg/dL 70-[address] [facility] 6720 (BEAKER) (test code = JOHANNY [place] 1538) [address] KETONE, [id number] 20:49:00 Test Item Value Reference Range Interpretation Comments KETONES, BLOOD (BEAKER) (test code 3.2 mmol/L <0.4 H = 1103) [id number] 20:46:00 Test Item Value Reference Range Interpretation Comments PHOSPHORUS (BEAKER) (test code = 2.2 mg/dL 2.3-4.7 L 604) [id number] 20:46:00 Test Item Value Reference Range Interpretation Comments MAGNESIUM (BEAKER) (test code = 2.2 mg/dL 1.6-2.6 627) BASIC METABOLIC [id number] 20:46:00 Test Item Value Reference Range Interpretation [...] APPLICABLE FOR DIALYSIS PATIEN TS. BLOOD GAS, [id number] 20:29:00 Test Item Value Reference Range Interpretation Comments PH VENOUS (BEAKER) (test code = 7.41 7.32-7.42 701) PCO2 VENOUS (BEAKER) (test code = 31 mmHg 41-51 L 755) PO2 VENOUS (BEAKER) (test code = 49 mmHg 25-40 H 702) O2 SATURATION VENOUS (AKER) 85.2 % 40.0-70.0 H (test code = 703) HCO3 VENOUS ([facility]) (test code = 19 mmol/L 21-29 L 705) BASE EXCESS VENOUS ([facility]) (test -4.7 mmol/L -2.0-3.0 L code = 704) PATIENT TEMPERATURE ([facility]) 37.0 C (test code = 1818) FIO2 ([facility]) (test code = 1819) 21.0 % POCT-GLUCOSE [id number] 20:09:00 Test Item Value Reference Range Interpretation Comments POC-GLUCOSE METER 219 mg/dL 70-[address] 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 Signed: Arpit Smith MDReport Verified Date/Time: 08/19/2018 18:36:40 Reading Location: [facility] Radiology Reading RoomAddendum EndsFINAL REPORT CTA brain 08/19/2018 1:22 PM CLINICAL INDICATION: Left SAH COMPARISON: CT brain without contrast 08/18/2018 TECHNIQUE: Noncontrast CT images of the head were obtained. Axial contrast-enhanced CT angiographic images of the brain were obtained, from which three-dimensional reconstructed images werecreated. Additional imaging series were created on an independent workstation using maximum intensity projection and volume rendered technique. This examination was performed according to our departmental dose optimization program, which includes automated exposure control, adjustment of the mA and/orkV according to patient size, and/or use of [...] Arpit Smith Verified Date/Time: 08/19/2018 13:33:21 Reading Locati on: [facility] Radiology Reading Room RAD, MANDIBLE, LESS THAN 4 [id number] 18:35:00Reason for exam:->dysarthria, fallFINAL REPORT Mandible 6 [...] Smith Verified Date/Time: 08/19/2018 18:35:55 Reading Location: [facility] Radiology Reading Room POCT-GLUCOSE [id number] 18:22:00 Test Item Value Reference Range Interpretation Comments POC-GLUCOSE METER 222 mg/dL 70-110 H TESTED AT [place] [address] ([facility] (test code = JOHANNY James [facility] 1538) [address] POCT-GLUCOSE [id number] 16:58:00 Test Item Value Reference Range Interpretation Comments POC-GLUCOSE METER 277 mg/dL 70-110 H TESTED AT [place] [address] ([facility]) (test code = [facility] 1538) [address] [id number] 16:12:00 Test Item Value Reference Range Interpretation Comments PHOSPHORUS (BEAKER) (test code = 2.9 mg/dL 2.3-4.7 604) [id number] 16:12:00 Test Item Value Reference Range Interpretation Comments MAGNESIUM (BEAKER) (test code = 1.7 mg/dL 1.6-2.6 627) BASIC METABOLIC [id number] 16:12:00 Test Item Value Reference Range Interpretation [...] NOT APPLICABLE FOR DIALYSIS PATIEN TS. KETONE, [id number] 15:46:00 Test Item Value Reference Range Interpretation Comments KETONES, BLOOD (BEAKER) (test code 6.0 mmol/L <0.4 H = 1103) POCT-GLUCOSE [id number] 15:18:00 Test Item Value Reference Range Interpretation Comments POC-GLUCOSE METER 322 mg/dL 70-110 H Will Repea t Test/TESTED (BEAKER) (test code = AT [facility] [address] [facility] 7[address] 0 POCT-GLUCOSE [id number] 14:27:00 Test Item Value Reference Range Interpretation Comments POC-GLUCOSE METER 232 mg/dL 70-[address] [facility] 6720 (BEAKER) (test code = JOHANNY James [facility] 1538) [address] POCT-GLUCOSE [id number] 13:05:00 Test Item Value Reference Range Interpretation Comments POC-GLUCOSE METER 240 mg/dL 70-[address] [facility] 6720 (BEAKER) (test code = JOHANNY James [facility] 1538) [address] POCT-GLUCOSE [id number] 12:16:00 Test Item Value Reference Range Interpretation Comments POC-GLUCOSE METER 201 mg/dL 70-[address] [facility] 6720 [facility] (test code = JOHANNY James [facility] 1538) [address] CT, [id number] 11:46:00FINAL REPORT INDICATION:23-year-old female with abdominal pain. Evaluate for pancreatitis. COMPARISON: None. TECHNIQUE: CT of the Abdomen and Pelvis WITHOUT intravenous contrast. Enteric contrast was used. The exam was performed [...] MDReport Verified Date/Time: 08/19/2018 11:46:24 Reading Location: [facility] Diagnostic Imaging Reading Room - [place] [address] BASIC METABOLIC PANEL 2018-08-19 11:17:00 Test Item [...] S NOT APPLICABLE FOR DIALYSIS PATIEN TS. [id number] 11:12:00 Test Item Value Reference Range Interpretation Comments PHOSPHORUS (BEAKER) (test code = 3.8 mg/dL 2.3-4.7 604) POCT-GLUCOSE [id number] 10:49:00 Test Item Value Reference Range Interpretation Comments POC-GLUCOSE METER 172 mg/dL 70-[address] [facility] 6720 (BEAKER) (test code = CANDIDAMIKAEL [place] 1538) [address] KETONE, [id number] 10:37:00 Test Item Value Reference Range Interpretation Comments KETONES, BLOOD (BEAKER) (test code 4.2 mmol/L <0.4 H = 1103) HEMOGLOBIN [id number] 10:29:00 Test Item Value Reference Range Interpretation Comments HEMOGLOBIN A1C (BEAKER) (test code = 15.3 % 4.3-6.1 H 368) BLOOD GAS, [id number] 10:23:00 Test Item Value Reference Range Interpretation [...] (test code = 1819) 21.0 % POCT-GLUCOSE [id number] 10:02:00 Test Item Value Reference Range Interpretation Comments POC-GLUCOSE METER 145 mg/dL 70-[address] [facility] 6720 (BEAKER) (test code = JOHANNY James [facility] 1538) [address] POCT-GLUCOSE [id number] 09:04:00 Test Item Value Reference Range Interpretation Comments POC-GLUCOSE METER 168 mg/dL 70-110 H TESTED AT [place] [address] (BEAKER) (test code = [facility] Erika [facility] 1538) [address] POCT-GLUCOSE [id number] 07:47:00 Test Item Value Reference Range Interpretation Comments POC-GLUCOSE METER 187 mg/dL 70-110 H TESTED AT [place] [address] (BEAKER) (test code = [facility] 1538) [address] BLOOD GAS, [id number] 07:14:00 Test Item Value Reference Range Interpretation [...] code = 1819) 21.0 % BASIC METABOLIC [id number] 07:13:00 Test Item Value Reference Range Interpretation Comments SODIUM (BEAKER) 157 meq/L 136-145 H (test code = 381) POTASSIUM (BEAKER) 3.2 meq/L 3.5-5.1 L (test code = 379) CHLORIDE (BEAKER) 126 meq/L 98-107 H (test code = 382) CO2 (BEAKER) (test 17 meq/L 22-29 L code = 355) BLOOD UREA NITROGEN 11 mg/dL 7-21 (BEAKER) (test code = 354) CREATININE ([facility]) 1.12 mg/dL 0.57-1.25 (test code = 358) GLUCOSE RANDOM 180 mg/dL 70-105 H ([facility]) (test code = 652) CALCIUM (BEAKER) 9.1 mg/dL 8.4-10.2 (test code = 697) EGFR ([facility]) (test 60 mL/min/1.73 ESTIMA OLGA GFR IS code = 1092) sq m NOT ACCURATE CREATININE CLEARANCE IN PREDICTING GLOMERULAR FILTRATION RATE . ESTIMATED GFR I S NOT APPLICABLE FOR DIALYSIS PATIEN TS. [id number] 07:11:00 Test Item Value Reference Range Interpretation Comments MAGNESIUM ([facility]) (test code = 2.0 mg/dL 1.6-2.6 627) POCT-GLUCOSE [id number] 07:09:00 Test Item Value Reference Range Interpretation Comments POC-GLUCOSE METER 183 mg/dL 70-110 H TESTED AT [place] [address] ([facility]) (test code = [facility] 1538) [address] POCT-GLUCOSE [id number] 06:19:00 Test Item Value Reference Range Interpretation Comments POC-GLUCOSE METER 185 mg/dL 70-110 H TESTED AT [place] [address] ([facility]) (test code = [facility] 1538) [address] POCT-GLUCOSE [id number] 05:05:00 Test Item Value Reference Range Interpretation Comments POC-GLUCOSE METER 223 mg/dL 70-110 H TESTED AT [place] [address] ([facility]) (test code = [facility] 1538) [address] POCT-GLUCOSE [id number] 04:17:00 Test Item Value Reference Range Interpretation Comments POC-GLUCOSE METER 235 mg/dL 70-110 H TESTED AT [place] [address] ([facility]) (test code = [facility] 1538) [address] [id number] 04:07:00 Test Item Value Reference Range Interpretation Comments PROCALCITONIN ([facility]) (test code 6.19 ng/mL <0.05 H = 3036) SEPSIS RISK (ng/mL)Low: 0.05-0.50Intermediate: 0.51-2.00High: >=2.01 [id number] 04:03:00 Test Item Value Reference Range Interpretation Comments PHOSPHORUS (BEAKER) (test code = 1.4 mg/dL 2.3-4.7 LL 604) BASIC METABOLIC [id number] 04:00:00 Test Item Value Reference Range Interpretation [...] APPLICABLE FOR DIALYSIS PATIEN TS. BASIC METABOLIC [id number] 04:00:00 Test Item Value Reference Range Interpretation [...] APPLICABLE FOR DIALYSIS PATIEN TS. BLOOD GAS, [id number] 03:52:00 Test Item Value Reference Range Interpretation [...] 70 pg/mL 0-100 (test code = 700) [id number] 03:43:00 Test Item Value Reference Range Interpretation Comments MAGNESIUM (BEAKER) (test code = 2.1 mg/dL 1.6-2.6 627) [id number] 03:43:00 Test Item Value Reference Range Interpretation Comments AMYLASE (BEAKER) (test code = 349) 566 U/L 25-125 H [id number] 03:43:00 Test Item Value Reference Range Interpretation Comments LIPASE (BEAKER) (test code = 749) 124 U/L 8-78 H C-REACTIVE [id number] 03:43:00 Test Item Value Reference Range Interpretation Comments C-REACTIVE PROTEIN (BEAKER) (test 5.56 mg/dL 0.00-0.50 H code = 676) KETONE, [id number] 03:23:00 Test Item Value Reference Range Interpretation [...] 0-0 (BEAKER) (test code = 413) POCT-GLUCOSE [id number] 03:17:00 Test Item Value Reference Range Interpretation Comments POC-GLUCOSE METER 251 mg/dL 70-110 H TESTED AT [place] [address] ([facility]) (test code = [place]NY [place] 15[address]) [address] OSMOLALITY, [id number] 02:24:00 Test Item Value Reference Range Interpretation Comments OSMOLALITY URINE (BEAKER) (test 599 mOsm/kg 40-1400 code = 614) POCT-GLUCOSE [id number] 02:16:00 Test Item Value Reference Range Interpretation Comments POC-GLUCOSE METER 288 mg/dL 70-110 H TESTED AT [place] [address] ([facility]) (test code = JOHANNY James [place] 1538) [address] KETONE, [id number] 01:49:00 Test Item Value Reference Range Interpretation Comments KETONES, BLOOD (BEAKER) (test code 6.1 mmol/L <0.4 H = 1103) POCT-GLUCOSE [id number] 01:13:00 Test Item Value Reference Range Interpretation Comments POC-GLUCOSE METER 254 mg/dL 70-[address] [facility] [address] [facility] (test code = JOHANNY James [facility] 1538) [id number] BLOOD GAS, [id number] 01:10:00 Test Item Value Reference Range Interpretation [...] (test code = 1819) 21.0 % POCT-GLUCOSE [id number] 00:05:00 Test Item Value Reference Range Interpretation Comments POC-GLUCOSE METER 288 mg/dL 70-110 H TESTED AT [place] [address] [facility] (test code = JOHANNY James [facility] 1538) [id number] BASIC METABOLIC [id number] 23:16:00 Test Item Value Reference Range Interpretation [...] NOT APPLICABLE FOR DIALYSIS PATIEN TS. OSMOLALITY, [id number] 23:03:00 Test Item Value Reference Range Interpretation Comments OSMOLALITY, SERUM (BEAKER) (test 342 mOsm/kg 275-295 H code = 615) [id number] 23:02:00 Test Item Value Reference Range Interpretation Comments PHOSPHORUS (BEAKER) (test code = 1.1 mg/dL 2.3-4.7 LL 604) [id number] 23:00:00 Test Item Value Reference Range Interpretation Comments MAGNESIUM (BEAKER) (test code = 2.1 mg/dL 1.6-2.6 627) CALCIUM, [id number] 22:47:00 Test Item Value Reference Range Interpretation [...] (BEAKER) (test code = 413) BLOOD GAS, [id number] 22:46:00 Test Item Value Reference Range Interpretation [...] (test code = 1819) 21.0 % KETONE, [id number] 22:46:00 Test Item Value Reference Range Interpretation Comments KETONES, BLOOD (BEAKER) (test code 5.6 mmol/L <0.4 H = 1103) RAD, CHEST, 1 VIEW, NON [id number] 22:44:00Reason for exam:->central line Should this be performed at the bedside?->YesFINAL REPORT RAD, CHEST, 1 VIEW, NON DEPT INDICATION: central line COMPARISON: None FINDINGS: Portable frontal view of the chest. IMPRESSION: Support Lines: Right IJ central venouscatheter terminates over the superior vena cava. Enteric tube has been placed with the side port well beyond the GE junction. The distal tip is positioned near the gastric cardia. Lungs and pleura: Lungs are clear. No pneumothorax.Heart and mediastinum: Unremarkable. Additional findings: None. Signed:JR York Robert MDReport Verified Date/Time: 08/18/2018 22:44:52 Reading Location: [address] Reading Room POCT-GLUCOSE [id number] 22:34:00 Test Item Value Reference Range Interpretation Comments POC-GLUCOSE METER 259 mg/dL 70-[address] [facility] 6720 (BEAKER) (test code = JOHANNY [place] 1538) [id number] CHLORIDE, RANDOM [id number] 22:28:00 Test Item Value Reference Range Interpretation Comments CHLORIDE URINE (BEAKER) (test code = 88 meq/L 682) Reference Range: No NormalsCREATININE, RANDOM [id number] 22:28:00 Test Item Value Reference Range Interpretation Comments CREATININE URINE (BEAKER) (test 12.5 mg/dL code = 375) Reference Range: No NormalsSODIUM, RANDOM [id number] 22:28:00 Test Item Value Reference Range Interpretation Comments SODIUM URINE (BEAKER) (test code = 143 meq/L 243) Reference Range: No NormalsUREA NITROGEN, RANDOM [id number] 22:28:00 Test Item Value Reference Range Interpretation Comments UREA NITROGEN URINE (BEAKER) (test 154 mg/dL code = 538) Reference Range: No NormalsOSMOLALITY, [id number] 21:53:00 Test Item Value Reference Range Interpretation Comments OSMOLALITY URINE (BEAKER) (test 546 mOsm/kg 40-1400 code = 614) BASIC METABOLIC [id number] 21:07:00 Test Item Value Reference Range Interpretation [...] S NOT APPLICABLE FOR DIALYSIS PATIEN TS. [id number] 21:07:00 Test Item Value Reference Range Interpretation Comments PHOSPHORUS (BEAKER) < mg/dL 2.3-4.7 LL Specimen slightly (test code = 604) hemolyzed POCT-GLUCOSE [id number] 21:06:00 Test Item Value Reference Range Interpretation Comments POC-GLUCOSE METER 381 mg/dL 70-[address] [facility] 67[address] [facility] (test code = JOHANNY James [place] 1538) [id number] POCT-GLUCOSE [id number] 21:06:00 Test Item Value Reference Range Interpretation Comments POC-GLUCOSE METER 437 mg/dL 70-[address] [facility] 6720 ([place]) (test code = JOHANNY James [place] 1538) [id number] 21:05:00 Test Item Value Reference Range Interpretation Comments LIPASE (BEAKER) (test code = 749) 138 U/L 8-78 H [id number] 21:05:00 Test Item Value Reference Range Interpretation Comments AMYLASE (BEAKER) (test code = 349) 669 U/L 25-125 H [id number] 21:04:00 Test Item Value Reference Range Interpretation Comments PROTIME (BEAKER) (test code = 15.8 seconds 11.7-14.7 H 759) INR (BEAKER) (test code = 370) 1.3 <=5.9 PARTIAL THROMBOPLASTIN TIME 21.3 seconds 22.5-36.0 L (BEAKER) (test code = 760) RECOMMENDED COUMADIN/WARFARIN INR THERAPY RANGESSTANDARD DOSE: 2.0 - 3.0 Includes: PROPHYLAXIS for venous thrombosis, systemic embolization; TREATMENT for venous thrombosis and/or pulmonary embolus.HIGH RISK: Target INR is 2.5-3.5 for patients with mechanical heart valves.[id number] 21:04:00 Test Item Value Reference Range Interpretation Comments MAGNESIUM (BEAKER) 2.2 mg/dL 1.6-2.6 Specimen slightly (test code = 627) hemolyzed BLOOD GAS, [id number] 21:00:00 Test Item Value Reference Range Interpretation [...] (test code = 1819) 21.0 % HEMOGLOBIN [id number] 21:00:00 Test Item Value Reference Range Interpretation Comments HEMOGLOBIN A1C (BEAKER) (test code = 15.7 % 4.3-6.1 H 368) CT BRAIN WITHOUT IV CONTRAST - [id number] 20:04:00Reason for exam:- >r/o bleedFINAL REPORT CT head without contrast 08/18/2018 8:03 PM CLINICAL HISTORY: r/o bleed TECHNIQUE: Contiguous axial images through the head without contrast were obtained utilizing the portable CT unit. This examination was performed according to our departmental dose optimization program, which includes automated exposure control, adjustment of the mA and/or kV according to patientsize, and/or use of iterated reconstruction technique. COMPARISON: None available FINDINGS: There isno intracranial hemorrhage, mass, hydrocephalus, extra-axial collection, or midline shift. The visualized paranasal sinuses and tympanomastoid cavities are well-aerated, save for retention cysts in theleft greater than right maxillary sinuses. The skull is intact. IMPRESSION: No intracranial hemorrhage or mass effect. Signed: Arpit Smith Verified Date/Time: 08/18/2018 20:04:50 Reading Lo cation: [facility] Reading Room POCT-GLUCOSE [id number] 19:21:00 Test Item Value Reference Range Interpretation Comments POC-GLUCOSE METER 425 mg/dL 70-[address] [facility] 6720 (BEAKER) (test code = JOHANNY [place] 1538) [id number] 18:52:00 Test Item Value Reference Range Interpretation Comments PHOSPHORUS (BEAKER) (test code = 604) < mg/dL 2.3-4.7 LL If last glucose was less than 500, may do bedside glucose instead of serum glucose.RAPID DRUG SCREEN, [id number] 18:52:00 Test Item Value Reference Range Interpretation [...] unconfirmed qualitative test result for the clinical managementof patients in emergency situations. Chain of custody not maintained. Some yvrf-vje-krjmsga medications, as well as adulterants, may cause inaccurate results. Clinical correlation should be applied. A more comprehensive drug screen or confirmation of a detected drug may be performed upon request.BASIC METABOLIC [id number] 18:51:00 Test Item Value Reference Range Interpretation [...] may do bedside glucose instead of serum glucose.[id number] 18:48:00 Test Item Value Reference Range Interpretation Comments MAGNESIUM (BEAKER) (test code = 2.1 mg/dL 1.6-2.6 627) If last glucose was less than 500, may do bedside glucose instead of serum glucose.KETONE, [id number] 18:45:00 Test Item Value Reference Range Interpretation Comments KETONES, BLOOD (BEAKER) (test code 5.2 mmol/L <0.4 H = 1103) [id number] 18:43:00 Test Item Value Reference Range Interpretation Comments PROTIME (BEAKER) (test code = 15.8 seconds 11.7-14.7 H 759) INR (BEAKER) (test code = 370) 1.3 <=5.9 PARTIAL THROMBOPLASTIN TIME 22.2 seconds 22.5-36.0 L (BEAKER) (test code = 760) RECOMMENDED COUMADIN/WARFARIN INR THERAPY RANGESSTANDARD DOSE: 2.0 - 3.0 Includes: PROPHYLAXIS for venous thrombosis, systemic embolization; TREATMENT for venous thrombosis [...] /LPF = 514) SOURCE(BEAKER) (test code = 9917) SCREEN, [id number] 18:35:00 Test Item Value Reference Range Interpretation Comments TEST URINE (BEAKER) (test Negative code = 583) BLOOD GAS, [id number] 18:32:00 Test Item Value Reference Range Interpretation [...] (BEAKER) (test code = 1819) 21.0 % [id number] 18:16:00 Test Item Value Reference Range Interpretation Comments FIBRINOGEN LEVEL 331 mg/dl 225-434 Sample clot olga, (MARTÍN) (test code = notifi ed RN badge 658) #[id number] for recollect. [id number] 18:16:00 Test Item Value Reference Range Interpretation Comments D-DIMER QUANTITATIVE 0.64 MG/L FEU <0.50 H Sample is clotted, (MARTÍN) (test code = notifi ed RN badge 671) #[id number] for recollect.This is a corrected result. Previou [...] of thrombosis is within 95-100% range.POCT- GLUCOSE [id number] 18:05:00 Test Item Value Reference Range Interpretation Comments POC-GLUCOSE METER > mg/dL 70-110 HH OUTSIDE ME ASURING (MARTÍN) (test code RANGETES OLGA AT [facility] 6720 = 1538) [facility] [address] [id number] 18:01:00 Test Item Value Reference Range Interpretation Comments PROCALCITONIN (MARTÍN) (test code 3.19 ng/mL <0.05 H = 3036) SEPSIS RISK (ng/mL)Low: 0.05-0.50Intermediate: 0.51-2.00High: >=2.01CREATINE KINASE (CK), TOTAL AND [id number] 17:50:00 Test Item Value Reference Range Interpretation Comments CREATINE KINASE TOTAL (MARTÍN) 54 U/L 29-200 (test code = 380) CREATINE KINASE-MB (MARTÍN) (test 1.6 ng/mL 0.0-6.6 code = 750) CREATINE KINASE-MB INDEX (MARTÍN) 3.0 % (test code = 395) CK-MB Reference Range:<6.7 Normal6.7-10.0 Borderline>10.0 Abnormal TROPONIN [id number] 17:50:00 Test Item Value Reference Range Interpretation [...] 0-100 (test code = 700) COMPREHENSIVE METABOLIC [id number] 17:48:00 Test Item Value Reference Range Interpretation [...] S NOT APPLICABLE FOR DIALYSIS PATIEN TS. [id number] 17:47:00 Test Item Value Reference Range Interpretation Comments LIPASE (BEAKER) (test code = 749) 329 U/L 8-78 H [id number] 17:47:00 Test Item Value Reference Range Interpretation Comments AMYLASE (BEAKER) (test code = 349) 563 U/L 25-125 H LACTATE DEHYDROGENASE (LDH)[id number] 17:47:00 Test Item Value Reference Range Interpretation Comments LACTATE DEHYDROGENASE (BEAKER) (test 255 U/L 125-220 H code = 635) C-REACTIVE [id number] 17:47:00 Test Item Value Reference Range Interpretation Comments C-REACTIVE PROTEIN (BEAKER) (test 1.35 mg/dL 0.00-0.50 H code = 676) LACTIC ACID, VENOUS, WHOLE [id number] 17:41:00 Test Item Value Reference Range Interpretation Comments LACTATE BLOOD VENOUS 2.0 mmol/L 0.5-2.2 Specime n markedly (2) (BEAKER) (test hemolyzed code = 2872) Effective 03/06/2016: Units/Reference Range ChangeNew: 0.5-2.2 mmol/L Previous: 5- 20 mg/dLPOCT-LACTIC ACID, [id number] 17:13:00 Test Item Value Reference Range Interpretation Comments POC-LACTIC ACID, 1.9 mmol/L 0.4-1.3 H TESTED AT [facility] 6720 ARTERIAL (BEAKER) [place] (test code = 2804) [address] [id number] 17:13:00 Test Item Value Reference Range Interpretation Comments POC-HEMATOCRIT 40 % 36-45 TESTED AT [facility] 6720 (BEAKER) (test code = JOHANNY [place] 1274194 2294) [id number] 17:13:00 Test Item Value Reference Range Interpretation Comments POC-HEMOGLOBIN 13.6 g/dL 12.0-15.0 TESTED AT [place] [address] (BEAKER) ([facility] = 1856) [address]LEIPMM AT [place] [address] [place] [facility] [address] POCT-BLOOD GASES, [id number] 17:13:00 Test Item Value Reference Range Interpretation Comments TEMP, CELSIUS-POC 37.0 (BEAKER) (test code = 1834) FIO2-POC (BEAKER) TESTED AT [place] [address] (test code = 1835) [place] [facility] [address] PH, ARTERIAL-POC 7.069 7.350-7.450 LL (BEAKER) (test [...] L ARTERIAL-POC (BEAKER) (test code = 1841) [id number] 17:13:00 Test Item Value Reference Range Interpretation Comments POC-SODIUM (BEAKER) 150 meq/L 135-148 H TESTED A T [place] [address] (test code = 1542) [place] [address] [id number] 17:13:00 Test Item Value Reference Range Interpretation Comments POC-POTASSIUM 2.4 meq/L 3.6-5.5 LL TESTED AT [place] [address] (BEAKER) (test code [facility] [address] = 1540) [id number] 17:13:00 Test Item Value Reference Range Interpretation Comments POC-GLUCOSE (BEAKER) 685 mg/dL 70-110 HH TESTED AT [place] [address] (test code = 1855) [facility] [address] POCT-CALCIUM [id number] 17:13:00 Test Item Value Reference Range Interpretation Comments POC-CALCIUM IONIZED 1.24 mmol/L 1.12-1.27 TESTED A T [place] [address] ([facility]) (test code = JOHANNY James [facility] 1536) [address] POCT-GLUCOSE [id number] 17:07:00 Test Item Value Reference Range Interpretation Comments POC-GLUCOSE METER > mg/dL 70-110 HH OUTSIDE ND ASURING ([facility]) (test code RANGETES [place] AT [place] [address] = 1538) [facility] [address]
[2022-09-28] MEDS ORDERED: ONDANSETRON 4 MG/2 ML VIAL ONE (18:16)
[2022-09-28] MEDS ORDERED: NA CHLORIDE 0.9% 1,000 ML ONE ×2 (18:16→18:58)
[2022-09-28 18:25] LABS: Absolute Lymphocytes (CBC) 1.5 K/uL (0.7-4.9); Hematocrit 46.1 % (36.0-45.0); Lymphocytes % 8.6 % (15.3-44.8); MCV 91.2 fL (80-100); RBC Red Blood Cell Count 5.06 M/uL (3.86-4.86)
[2022-09-28 18:43] LABS: ALT/SGPT 22 U/L (12-78); AST/SGOT 11 U/L (15-37); Albumin 3.9 g/dL (3.4-5.0); Alkaline Phosphatase 95 U/L (45-117); BUN Blood Urea Nitrogen 15 mg/dL (7-18); Bilirubin Total 0.5 mg/dL (0.2-1.0); Glomerular Filtration Rate 70 ml/min (=/>90); Glucose Level 378 mg/dL (74-106); Lipase 99 U/L (73-393); Potassium 3.6 mmol/L (3.5-5.1); Protein, Total 8.1 g/dL (6.4-8.2); Sodium Level 136 mmol/L (136-145)
[2022-09-28 18:44] LABS: Bicarbonate < 8 mmol/L (21-32)
[2022-09-28] MEDS ORDERED: LORazepam 2 MG/ML VIAL ONE (18:47)
--- NOTE | 2022-09-28 18:51 | ER ---
Nurse's Notes [facility] Name: Rosalie Parekh Age: 27 yrs Sex: Female : 1995 Arrival Date: 09/28/2022 Time: 17:59 Bed 25 Private MD: Diagnosis: Diabetes mellitus due to underlying condition with ketoacidosis without coma Presentation: 09/28 17:40 Chief complaint: EMS states: toned out to PT home for high blood sugar. EMS reports tp1 headache, nausea, and vomiting. BS 228, 20G RAC inserted, Zofran 4 mg administered on route. 17:40 Coronavirus screen: Vaccine status: Patient reports being unvaccinated. Ebola Screen: tp1 Patient denies exposure to infectious person. Patient denies travel to an Ebola-affected area in the 21 days before illness onset. Initial Sepsis Screen: Does the patient meet any 2 criteria? RR > 20 per min. HR > 90 bpm. Yes Does the patient have a suspected source of infection? No. Patient's initial sepsis screen is negative. Risk Assessment: Do you want to hurt yourself or someone else? Patient reports no desire to harm self or others. Onset of symptoms. 17:40 Method Of Arrival: EMS: [facility] tp1 17:40 Acuity: TANYA 3 tp1 Triage Assessment: 17:40 General: Appears in no apparent distress. uncomfortable, Behavior is cooperative, tp1 anxious. Pain: Complains of pain in head Pain does not radiate. Pain currently is 5 out of 10 on a pain scale. Quality of pain is described as sharp. EENT: No deficits noted. Neuro: Level of Consciousness is awake, alert, obeys commands, Oriented to person, place, time, situation. Cardiovascular: Capillary refill < 3 seconds in bilateral fingers Patient's skin is warm and dry. Respiratory: Reports shortness of breath Airway is patent Respiratory effort is even, unlabored, Respiratory pattern is regular. GI: Abdomen is flat, non-distended, Reports nausea, vomiting. : No signs and/or symptoms were reported regarding the genitourinary system. Derm: Skin is pink, warm \T\ dry. Musculoskeletal: Circulation, motion, and sensation intact. 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 - Social history:: Smoking status: Reported history of juuling and/or vaping. Screenin:26 Abuse screen: Denies threats or abuse. Denies injuries from another. Nutritional tp1 screening: No deficits noted. Tuberculosis screening: No symptoms or risk factors identified. Fall Risk None identified. Assessment: 17:40 Reassessment: see triage assessment. tp1 18:27 Reassessment: received VO from SUNIL Almanza to administer NS 1000ml IV X1. tp1 18:40 Reassessment: Patient appears in no apparent distress at this time. No changes from tp1 previously documented assessment. Patient and/or family updated on plan of care and expected duration. Pain level reassessed. Patient is alert, oriented x 3, equal unlabored respirations, skin warm/dry/pink. 19:49 Reassessment: Patient appears in no apparent distress at this time. No changes from tp1 previously documented assessment. Patient is alert, oriented x 3, equal unlabored respirations, skin warm/dry/pink. continues to CO nausea. 21:05 Reassessment: Patient appears in no apparent distress at this time. No changes from tp1 previously documented assessment. Patient is alert, oriented x 3, equal unlabored respirations, skin warm/dry/pink. continues to CO nausea, provider notified. 21:19 Reassessment: attempted to give report, will call back. tp1 21:58 Reassessment:. tp1 22:35 Reassessment: report given to Argenis HAUSER. tp1 Vital Signs: 17:40 BP 125 / 67; Pulse 103; Resp 24; Temp 97.8; Pulse Ox 100% on R/A; tp1 17:40 Weight 72.57 kg; Height 5 ft. 2 in. (157.48 cm); tp1 18:30 BP 131 / 78; Pulse 103; Resp 20; Pulse Ox 100% on R/A; tp1 19:51 BP 124 / 72; Pulse 101; Resp 24; Pulse Ox 100% on R/A; tp1 20:15 BP 128 / 86; Pulse 97; Resp 26; Pulse Ox 100% on R/A; hb 21:19 BP 128 / 68; Pulse 102; Resp 25; Pulse Ox 100% on R/A; tp1 21:55 BP 116 / 75; Pulse 95; Resp 27; Pulse Ox 100% on R/A; hb 17:40 Body Mass Index 29.26 (72.57 kg, 157.48 cm) tp1 ED Course: 17:40 No provider procedures requiring assistance completed. EKG done. Maintain EMS IV. tp1 Dressing intact. Good blood return noted. Site clean \T\ dry. Gauge \T\ site: 20 g RAC . 17:40 Arm band placed on. tp1 17:59 Patient arrived in ED. kj1 18:03 Ervin Webb PA is PHCP. [facility] 18:03 Matthias Johnston DO is Attending Physician. [facility] 18:04 Graciela Arnold RN is Primary Nurse. tp1 18:04 Inserted saline lock: 20 gauge in left antecubital area, using aseptic technique. Blood tp1 collected. 18:05 Patient has correct armband on for positive identification. Bed in low position. Call tp1 light in reach. Side rails up X 1. 18:05 Client placed on continuous cardiac and pulse oximetry monitoring. NIBP monitoring tp1 applied. 18:06 PHCP role handed off by Ervin Webb PA kb 18:06 Zabrina Almanza FNP-C is PHCP. kb 18:23 Triage completed. tp1 18:29 blood sugar 368. kj1 18:50 Destin Hernandez MD is Hospitalizing Provider. kb 20:36 SARS RAPID Sent. tp1 22:46 Patient admitted, IV remains in place. tp1 Administered Medications: 17:40 Drug: NS 0.9% 1000 ml Route: IV; Rate: 1 bolus; Site: right antecubital; tp1 18:20 Follow up: IV Status: Completed infusion; IV Intake: 1000ml tp1 18:20 Drug: Zofran (Ondansetron) 4 mg Route: IVP; Site: left antecubital; tp1 18:40 Follow up: Response: Nausea is decreased tp1 18:27 Drug: NS 0.9% 1000 ml Route: IV; Rate: 1 bolus; Site: left antecubital; tp1 20:36 Follow up: IV Status: Completed infusion; IV Intake: 1000ml tp1 18:49 Drug: Ativan (LORazepam) 0.5 mg Route: IVP; Site: left antecubital; tp1 19:30 Follow up: Response: Marked relief of symptoms tp1 19:42 Drug: NS 0.9% 1000 ml Route: IV; Rate: 250 ml/hr; Site: left antecubital; tp1 22:45 Follow up: IV Status: Infusion continued upon admission tp1 19:42 Drug: Insulin Drip - (Insulin Regular Human 100 units, NS 0.9% 100 ml) {Co-Signature: tp1 hb (Maribel Ni RN).} Route: IV; Rate: calculated rate; Site: left antecubital; 20:51 Follow up: Rate change 7.2 units/hr tp1 21:49 Follow up: Rate change 3.6 units/hr tp1 22:45 Follow up: IV Status: Infusion continued upon admission tp1 21:12 Drug: Phenergan (promethazine) 12.5 mg Route: IVP; Site: right antecubital; tp1 22:45 Follow up: Response: Nausea is decreased tp1 Medication: 17:40 VIS not applicable for this client. tp1 Intake: 18:20 IV: 1000ml; Total: 1000ml. tp1 20:36 IV: 1000ml; Total: 2000ml. tp1 Outcome: 18:51 Decision to Hospitalize by Provider. kb 22:30 Admitted to ICU tp1 22:30 Condition: good 22:30 Discharge instructions given to patient, Instructed on the need for admit, Demonstrated understanding of instructions. 22:32 Patient left the ED. hb Signatures: Zabrina Almanza, GERARDO MCKAY-Ervin Medina PA PA jmm Baxter, Heather, RN RN hb Zoë Almanza kj1 Graciela Arnold RN RN tp1 Maribel casillas
--- NOTE | 2022-09-28 18:51 | EDPHYS ---
Physician Documentation [facility] Name: Rosalie Parekh Age: 27 yrs Sex: Female : 1995 Arrival Date: 09/28/2022 Time: 17:59 Bed 25 Private MD: ED Physician Matthias Johnston HPI: 09/28 18:34 This 27 yrs old Female presents to ER via EMS with complaints of n/v, hyperglycemia. kb 18:35 that was potentially precipitated by no particular event. Onset: The symptoms/episode kb began/occurred this morning. Associated signs and symptoms: Pertinent positives: nausea, vomiting. Current symptoms: In the emergency department the patient's symptoms are unchanged from the initial presentation. The patient has experienced similar episodes in the past. The patient has not recently seen a physician. 18:36 Pt reports high blood sugar, nausea and vomiting that started this morning. States it kb feels like she is in DKA. 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 - Social history:: Smoking status: Reported history of juuling and/or vaping. ROS: 18:34 Constitutional: Negative for fever, chills, and weight loss. kb 18:34 Abdomen/GI: Positive for nausea and vomiting. 18:34 All other systems are negative. Exam: 18:34 Constitutional: This is a well developed, well nourished patient who is awake, alert, kb and in no acute distress. Head/Face: Normocephalic, atraumatic. ENT: Moist Mucous membranes Cardiovascular: Regular rate and rhythm with a normal S1 and S2. No gallops, murmurs, or rubs. No pulse deficits. Respiratory: Respirations even and unlabored. No increased work of breathing. Talking in full sentences Abdomen/GI: Soft, non-tender. No distention Skin: Warm, dry with normal turgor. Normal color. MS/ Extremity: Pulses equal, no cyanosis. Neurovascular intact. Full, normal range of motion. Neuro: Awake and alert, GCS 15, oriented to person, place, time, and situation. Moves all extremities. Normal gait. Vital Signs: 17:40 BP 125 / 67; Pulse 103; Resp 24; Temp 97.8; Pulse Ox 100% on R/A; tp1 17:40 Weight 72.57 kg; Height 5 ft. 2 in. (157.48 cm); tp1 18:30 BP 131 / 78; Pulse 103; Resp 20; Pulse Ox 100% on R/A; tp1 19:51 BP 124 / 72; Pulse 101; Resp 24; Pulse Ox 100% on R/A; tp1 20:15 BP 128 / 86; Pulse 97; Resp 26; Pulse Ox 100% on R/A; hb 21:19 BP 128 / 68; Pulse 102; Resp 25; Pulse Ox 100% on R/A; tp1 21:55 BP 116 / 75; Pulse 95; Resp 27; Pulse Ox 100% on R/A; hb 17:40 Body Mass Index 29.26 (72.57 kg, 157.48 cm) tp1 MDM: 18:04 Patient medically screened. [facility] 18:33 Data reviewed: vital signs, nurses notes. Data interpreted: Pulse oximetry: on room air kb is 100 %. Interpretation: normal. 18:48 Counseling: I had a detailed discussion with the patient and/or guardian regarding: the kb historical points, exam findings, and any diagnostic results supporting the discharge/admit diagnosis, lab results, the need for further work-up and treatment in the hospital. Physician consultation: Liberty Brandt PA-C was contacted at 18:49, and will see patient. 09/28 18:05 Order name: ABG; Complete Time: 19:02 [facility] 09/28 18:19 Order name: Comprehensive Metabolic Panel; Complete Time: 18:47 EDMS 09/28 18:19 Order name: Acetone Level; Complete Time: 18:47 EDMS 09/28 18:19 Order name: Lipase; Complete Time: 18:47 EDMS 09/28 18:19 Order name: CBC with Automated Diff; Complete Time: 18:31 EDMS 09/28 19:30 Order name: Urine Dipstick-Ancillary; Complete Time: 19:36 EDMS 09/28 20:28 Order name: SARS RAPID bb 09/28 20:58 Order name: Glucose, Ancillary Testing; Complete Time: 20:59 [facility] 09/28 20:59 Order name: SARS-COV-2 Antigen Rapid [facility] 09/28 21:58 Order name: Glucose, Ancillary Testing [facility] 09/28 18:05 Order name: IV Saline Lock; Complete Time: 18:27 [facility] 09/28 18:05 Order name: Labs collected and sent; Complete Time: 18:27 [facility] 09/28 18:05 Order name: Urine Dipstick-Ancillary (obtain specimen); Complete Time: 19:45 [facility] 09/28 18:05 Order name: Urine Test (obtain specimen); Complete Time: 19:45 [facility] Administered Medications: 17:40 Drug: NS 0.9% 1000 ml Route: IV; Rate: 1 bolus; Site: right antecubital; tp1 18:20 Follow up: IV Status: Completed infusion; IV Intake: 1000ml tp1 18:20 Drug: Zofran (Ondansetron) 4 mg Route: IVP; Site: left antecubital; tp1 18:40 Follow up: Response: Nausea is decreased tp1 18:27 Drug: NS 0.9% 1000 ml Route: IV; Rate: 1 bolus; Site: left antecubital; tp1 20:36 Follow up: IV Status: Completed infusion; IV Intake: 1000ml tp1 18:49 Drug: Ativan (LORazepam) 0.5 mg Route: IVP; Site: left antecubital; tp1 19:30 Follow up: Response: Marked relief of symptoms tp1 19:42 Drug: NS 0.9% 1000 ml Route: IV; Rate: 250 ml/hr; Site: left antecubital; tp1 22:45 Follow up: IV Status: Infusion continued upon admission tp1 19:42 Drug: Insulin Drip - (Insulin Regular Human 100 units, NS 0.9% 100 ml) {Co-Signature: tp1 hb (Maribel Ni RN).} Route: IV; Rate: calculated rate; Site: left antecubital; 20:51 Follow up: Rate change 7.2 units/hr tp1 21:49 Follow up: Rate change 3.6 units/hr tp1 22:45 Follow up: IV Status: Infusion continued upon admission tp1 21:12 Drug: Phenergan (promethazine) 12.5 mg Route: IVP; Site: right antecubital; tp1 22:45 Follow up: Response: Nausea is decreased tp1 Disposition: 18:51 Co-signature as Attending Physician, Matthias Johnston DO I was immediately available on-site ms3 in the Emergency Department for consultation in the care of the patient. Disposition Summary: 09/28/22 18:51 Hospitalization Ordered Hospitalization Status: Inpatient Admission kb Provider: Destin Hernandez Location: Intensive Care Unit kb Condition: Fair kb Problem: new kb Symptoms: are unchanged kb Bed/Room Type: Standard Room Assignment: 8-(09/28/22 21:11) cg Diagnosis - Diabetes mellitus due to underlying condition with ketoacidosis without coma kb Forms: - Medication Reconciliation Form kb - SBAR form kb Signatures: Dispatcher [employer] EDMS Zabrina Almanza, NELY-Ervin Hernandez PA PA jmm Garcia, Cindy, RN RN cg Matthias Johnston DO DO ms3 Graciela Arnold RN RN tp1 Liberty Brandt PA-C PA-C sb4 Maribel Ni RN Corrections: (The following items were deleted from the chart) 18:41 18:28 CBC+H.LAB.BRZ ordered. EDMS EDMS 18:41 18:28 COMPREHENSIVE METABOLIC PANEL+C.LAB.BRZ ordered. EDMS EDMS 18:41 18:28 LIPASE+C.LAB.BRZ ordered. EDMS EDMS 18:41 18:28 ACETONE, SERUM+C.LAB.BRZ ordered. EDMS EDMS 21:11 18:51 kb cg
[2022-09-28 18:56] LABS: Arterial Blood Carboxyhemoglob 0.9 % (0-1.5); Blood Gas Oxyhemoglobin 94.4 % (94-97)
[2022-09-28] MEDS ORDERED: INSULIN -REGULAR HUMAN 50 UNIT/0.5 ML ML ONE (18:58)
[2022-09-28] MEDS ORDERED: NA CHLORIDE 0.9% 100 ML IV ONE (18:58)
[2022-09-28 19:30] LABS: Urine Blood 1+ (Negative); Urine Glucose 2+ (Negative); Urine Protein 2+ (Negative); Urine Specific Gravity >=1.030 (1.005-1.030)
--- NOTE | 2022-09-28 20:09 | P.HP ---
Certification for Inpatient Patient admitted to: Inpatient With expected LOS: <2 Midnights Patient will require the following post-hospital care: None Practitioner: I am a practitioner with admitting privileges, knowledge of patient current condition, hospital course, and medical plan of care. Services: Services provided to patient in accordance with Admission requirements found in Title 42 Section 412.3 of the Code of Federal Regulations Patient History Date of Service: 09/28/22 Primary Care Provider: Rosetta Abraham Reason for admission: DKA History of Present Illness: Patient is a 27-year-old female with type 1 diabetes who presented to the ED via EMS with complaints of nausea, vomiting, and headache that began this morning around 4 AM. She was noted to be in DKA with blood sugar 328, CO2 less than 8, anion gap 26, moderate acetone level, urine positive for glucose and ketones. ABG with pH of 7.04, PCO2 7.8, HCO3 2. Patient reports that she has been taking her insulin as usual. She was started on insulin drip in ED and is admitted for further management of DKA. Allergies No Known Allergies Allergy (Verified 04/09/21 06:56) Home medications list reviewed: Yes Home Medications: Insulin Aspart [Novolog Flexpen] See Protocol SQ SEECOM #1 box 03/01/21 Insulin Glargine,Hum.rec.anlog [Lantus Solostar] 30 unit SQ BID 03/01/22 Levofloxacin [Levaquin] 500 mg PO DAILY #10 tablet 03/02/22 - Past Medical/Surgical History Diabetic: Yes -: Diabetes mellitus type 1 -: C section Psychosocial/ Personal History: Patient lives at home with family - Family History Mother -: Diabetes - Social History Smoking Status: Current every day smoker (Vapes) Alcohol use: No CD- Drugs: No Caffeine use: Yes Place of Residence: Home Review of Systems General: Other (Headache) Gastrointestinal: Nausea, Vomiting Physical Examination - Vital Signs Temperature: 97.8 F Blood Pressure: 165/61 Pulse: 80 Respirations: 20 Pulse Ox (%): 99 (on room air) - Physical Exam General: Alert, Mild distress HEENT: Atraumatic, PERRLA, EOMI, Sclerae nonicteric Neck: Supple, 2+ carotid pulse no bruit, No LAD, Without JVD or thyroid abnormality Respiratory: Clear to auscultation bilaterally, Other (Labored breathing) Cardiovascular: Regular rate/rhythm, Normal S1 S2 Gastrointestinal: Normal bowel sounds, No tenderness Musculoskeletal: No tenderness Integumentary: No rashes Neurological: Normal speech, Normal strength at 5/5 x4 extr, Normal tone, Normal affect - Studies Laboratory Data (last 24 hrs) 09/28/22 18:10: Sodium 136, Potassium 3.6, BUN 15, Creatinine 1.10, Glucose 378 H, Total Bilirubin 0.5, AST 11 L, ALT 22, Alkaline Phosphatase 95, Lipase 99 09/28/22 18:10: WBC 17.00 H, Hgb 15.3 H, Hct 46.1 H, Plt Count 422 H 09/28/22 18:05: Sodium Cancelled, Potassium Cancelled, BUN Cancelled, Creatinine Cancelled, Glucose Cancelled, Total Bilirubin Cancelled, AST Cancelled, ALT Cancelled, Alkaline Phosphatase Cancelled, Lipase Cancelled 09/28/22 18:05: WBC Cancelled, Hgb Cancelled, Hct Cancelled, Plt Count Cancelled Assessment and Plan - Problems (Diagnosis) (1) T1DM (type 1 diabetes mellitus) Current Visit: Yes Status: Chronic Qualifiers: Diabetes mellitus complication status: with ketoacidosis Diabetes mellitus complication detail: without coma Qualified Code(s): E10.10 - Type 1 diabetes mellitus with ketoacidosis without coma - Plan DKA protocol in the ICU with insulin drip, aggressive IV fluids with potassium, every 1 hours blood sugar checks, every 4 hours BMP/acetone A1c and lipid panel in the morning. Supportive measures with antiemetics NPO for now Monitor and replete electrolytes per protocol Lovenox for VTE prophylaxis Full code Discharge Plan: Home Plan to discharge in: 48 Hours - Advance Directives Does patient have a Living Will: No Does patient have a Durable POA for Healthcare: No - Code Status/Comfort Care Code Status Assessed: Yes (Full) Critical Care: No Time Spent Managing Pts Care (In Minutes): 50
[2022-09-28 20:59] LABS: SARS-CoV-2 Antigen Rapid Res Negative (Negative)
[2022-09-28] MEDS ORDERED: PROMETHAZINE INJ 25 MG/ML AMP ONE (21:07)
[2022-09-28] MEDS ORDERED: INSULIN -REGULAR HUMAN 100 UNIT in NA CHLORIDE 0.9% 100 ML IV SCH (21:51)
[2022-09-28] MEDS ORDERED: ONDANSETRON 4 MG/2 ML VIAL IV PRN (21:51)
[2022-09-28] MEDS: NACHLORIDE 0.45% 1,000 ML with POTASSIUM CL 20 MEQ IV SCH ×2 (21:51)
[2022-09-28 22:51] LABS: BUN Blood Urea Nitrogen 12 mg/dL (7-18); Glomerular Filtration Rate 94 ml/min (=/>90); Glucose Level 195 mg/dL (74-106); Sodium Level 140 mmol/L (136-145)
[2022-09-28 22:52] LABS: Bicarbonate < 8 mmol/L (21-32); Potassium 3.4 mmol/L (3.5-5.1)
[2022-09-28 23:06] VITALS: O2SAT 100
[2022-09-28] MEDS: D5.45NS W/KCL 20MEQ 1,000 ML IV SCH (23:14)
[2022-09-28] MEDS ORDERED: KCL 20 MEQ/100 mL IVPB 20 MEQ/100 ML BAG IV SCH (23:45)
[2022-09-29] MEDS ORDERED: FAMOTIDINE 20 MG/2 ML VIAL IV ONE (01:16)
[2022-09-29] MEDS: NACHLORIDE 0.45% 1,000 ML with POTASSIUM CL 20 MEQ IV SCH ×6 (01:54→10:00)
[2022-09-29 02:37] LABS: BUN Blood Urea Nitrogen 10 mg/dL (7-18); Glomerular Filtration Rate 89 ml/min (=/>90); Glucose Level 201 mg/dL (74-106); Potassium 3.7 mmol/L (3.5-5.1); Sodium Level 140 mmol/L (136-145)
[2022-09-29 02:38] LABS: Bicarbonate < 8 mmol/L (21-32)
[2022-09-29] MEDS ORDERED: ACETAMINOPHEN 325 MG TABLET PO PRN (05:28)
[2022-09-29] MEDS ORDERED: ALPRAZOLAM 0.5 MG TABLET PO ONE ×2 (05:29→22:13)
[2022-09-29] MEDS: D5.45NS W/KCL 20MEQ 1,000 ML IV SCH (05:58)
[2022-09-29 06:51] LABS: Magnesium 1.6 mg/dL (1.8-2.4); Phosphorus 1.5 mg/dL (2.5-4.9)
[2022-09-29 07:02] LABS: BUN Blood Urea Nitrogen 9 mg/dL (7-18); Glomerular Filtration Rate 84 ml/min (=/>90); Glucose Level 185 mg/dL (74-106); Potassium 3.4 mmol/L (3.5-5.1); Sodium Level 140 mmol/L (136-145)
[2022-09-29 07:03] LABS: Bicarbonate 11 mmol/L (21-32)
[2022-09-29 07:16] LABS: Absolute Lymphocytes (CBC) 1.9 K/uL (0.7-4.9); Hematocrit 40.9 % (36.0-45.0); MCV 88.5 fL (80-100); MPV 7.3 fL (7.6-11.3); RBC Red Blood Cell Count 4.62 M/uL (3.86-4.86)
[2022-09-29] MEDS ORDERED: MAGNESIUM SULFATE 1 gm IVPB 1 GM/100 ML BAG IV ONE (08:00)
[2022-09-29] MEDS: ENOXAPARIN 40 MG/0.4 ML SQ SCH (08:26)
[2022-09-29] MEDS ORDERED: POTASSIUM PHOS IN 0.9 % NACL 15 MMOL/250 ML BAG IV ONE (09:00)
[2022-09-29 10:36] LABS: BUN Blood Urea Nitrogen 9 mg/dL (7-18); Glomerular Filtration Rate 97 ml/min (=/>90); Glucose Level 174 mg/dL (74-106); Potassium 3.3 mmol/L (3.5-5.1); Sodium Level 138 mmol/L (136-145)
[2022-09-29 10:37] LABS: Bicarbonate 13 mmol/L (21-32)
[2022-09-29] MEDS: D5W 1,000 ML IV SCH ×2 (11:06→21:00)
[2022-09-29] MEDS ORDERED: INSULIN GLARGINE 100 UNIT/ML SQ ONE (12:00)
[2022-09-29 14:55] LABS: Potassium 3.1 mmol/L (3.5-5.1)
[2022-09-29] MEDS ORDERED: POTASSIUM 25 MEQ EFFERV TAB PO ONE ×2 (16:00→20:00)
[2022-09-29] MEDS ORDERED: D50W 25 GM/50 ML SYRINGE IV PRN (17:01)
[2022-09-29] MEDS ORDERED: GLUCAGON 1 MG/VIAL IM PRN (17:01)
[2022-09-29] MEDS ORDERED: D10W 125 ML IV PRN (17:09)
[2022-09-29 18:30] LABS: Potassium 3.5 mmol/L (3.5-5.1)
[2022-09-29] MEDS: INSULIN -REGULAR HUMAN 50 UNIT/0.5 ML ML SQ SCH ×2 (20:48→21:00)
[2022-09-29] MEDS ORDERED: INSULIN -REGULAR HUMAN 50 UNIT/0.5 ML ML SQ ONE (20:54)
[2022-09-29] MEDS ORDERED: D5W 1,000 ML IV SCH (20:55)
[2022-09-29] MEDS ORDERED: INSULIN GLARGINE 100 UNIT/ML SQ SCH (21:00)
[2022-09-30 04:51] LABS: Absolute Lymphocytes (CBC) 2.7 K/uL (0.7-4.9); Lymphocytes % 46.6 % (15.3-44.8); MCV 86.9 fL (80-100); MPV 7.3 fL (7.6-11.3); RBC Red Blood Cell Count 4.49 M/uL (3.86-4.86)
[2022-09-30 05:10] LABS: Phosphorus 0.9 mg/dL (2.5-4.9); Potassium 2.8 mmol/L (3.5-5.1)
[2022-09-30 05:17] VITALS: BMI 29.7
[2022-09-30] MEDS ORDERED: POTASSIUM PHOS IN 0.9 % NACL 15 MMOL/250 ML BAG IV ONE ×2 (05:17→09:00)
[2022-09-30] MEDS ORDERED: POTASSIUM 25 MEQ EFFERV TAB PO ONE (05:22)
[2022-09-30] MEDS: INSULIN -REGULAR HUMAN 50 UNIT/0.5 ML ML SQ SCH (07:18)
[2022-09-30] MEDS: ENOXAPARIN 40 MG/0.4 ML SQ SCH (08:31)
[2022-09-30] MEDS ORDERED: POTASS/SODIUM PHOSPHATE 1 PKT POWD.PACK PO ONE (09:11)
[2022-09-30 11:11] LABS: Phosphorus 2.8 mg/dL (2.5-4.9)
--- NOTE | 2022-09-30 12:52 | EKG ---
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
[2022-09-30 13:38] VITALS: BP 98/69; TEMP 97.1
[2022-09-30] MEDS ORDERED: INSULIN -REGULAR HUMAN 50 UNIT/0.5 ML ML SQ ONE ×2 (20:54)
== END 2022-09-30 11:30 | disposition home or self-care (01) | DRG 639 ==
LOC: ER 17:45 → ERHOLD 19:35 → 3RD-ICU 22:18
PROVIDERS: ADMIT Hospitalist; ATTEND Hospitalist
DX: E10.10 Type 1 diabetes mellitus with ketoacidosis without coma (principal); Z79.4 Long term (current) use of insulin; Z28.310 Unvaccinated for COVID-19; Z20.822 Contact with and (suspected) exposure to COVID-19
CPT/HCPCS: 36415; 80048; 80053; 80061; 81003; 82010; 82310; 82805; 82947; 83036; 83690; 83735; 83930; 84100; 85025; 87811; 93005; 99285; J1650; J1815; J2405; J2550; J3475; J3480; J7030

== ENCOUNTER 2023-01-09 23:46 | Observation (INO) | payer OTHER ==
--- OUTSIDE RECORDS SUMMARY | 2023-01-09 23:52 | XMS REPORT | Continuity of Care Document ---
:1995 Author Organization [facility] t Address [address] [facility] [address]. [address] [place] [address] Care Team Providers Name Role Phone Pcp, Patient Does Not Have A Primary Care Physician [id number] ANSELMO FIGUEROA Attending Clinician Unavailable ANSELMO FIGUEROA Attending Clinician Unavailable Natalie Garcia Attending Clinician Unavailable Beatriz Moreira MD Attending Clinician BEATRIZ MOREIRA Attending Clinician Unavailable Doctor Unassigned, [place] Attending Clinician Unavailable CASIE BRUNO Attending Clinician Unavaila ble ANSELMO FIGUEROA Admitting Clinician Unavailable Natalie Garcia Admitting Clinician Unavailable CASIE BRUNO Admitting Clinician Unavailclaude moon Payers Payer Name Policy Type Policy Number Effective Date Expiration Date Jared GOMES [facility] [id number] 2018 00:00:00 Problems Condition Condition Condition Status Onset Resolution Last Treating Co mments Source Name Details Category Date Date Treatment Clinician Date 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 1 8-09 ity of diabetes diabetes 00:00: [place] mellitus mellitus 00 Medica l with with Branch hyperglyce hyperglyce digna digna Noncomplia Noncomplia Disease Active U nivers nce nce 06-11 ity of 00:00: [address] DKA DKA Disease Active Univers (diabetic (diabetic 06-03 ity of ketoac[place] 00 [facility] Diabetic Diabetic Disease Active 2017-11 [facility] ketoacidos ketoacidos 0-17 Gisela kes is with is with 00:00: Medical coma coma 00 Center Acute Acute Disease Active 2017-[address] metabolic metabolic 0-16 Luke s encephalop encephalop 00:00: Ak dical athy athy 00 Center Allergies, Adverse Reactions, Alerts Allergy Allergy Status Severity Reaction(s) Onset Inactive Treating Comm ents Source Name Type Date Date Clinician No Known DA Active U [facility] 1-20 [place] 00:[facility]: [address] No Known DA Active U [facility] 1[facility]20 [place] 00:[place]: [address] No Known DA Active U 2019- [facility] Allergie 1-26 [place] 00:[place]: [address] No Known DA Active U 2019-1 [facility] Allergie 1-26 [place] 00:00: [address] No Known DA Active U 2019-1 [facility] Allergie 0-03 [place] 00:00: [address] No Known DA Active U 2019-1 [facility] Allergie 0-03 [place] 00:00: [address] NO KNOWN Drug Active Univers ALLERGIE Class ity of S [facility] Social History Social Habit Start Date Stop Date Quantity Comments Source History of tobacco Current smoker Un iversity of use [facility] Exposure to 2022-06-01 2022-06-11 Not sure [facility] SARS-CoV-2 (event) 00:00:00 11:35:00 [facility] Alcohol intake 2020-06-03 2020-06-03 Current University of 00:00:00 00:00:00 non-drinker of [facility] alcohol Branch (finding) Tobacco Comment 2020-06-03 2020-06-03 half a pack a Univer sity of 00:00:00 00:00:00 day has not [facility] since found out Branch she is Cigarettes smoked 2018-08-18 2018-08-18 KATE Booth current (pack per 00:00:00 00:00:00 [facility] Center day) - Reported Tobacco use and 2018-08-18 2018-08-18 Current user KATE Booth exposure 00:00:00 00:00:00 [facility] Center Sex Assigned At [birth year] KATE Lawss 00:00:00 00:00:00 [facility] Smoking Status Start Date Stop Date Source Ex-smoker 2020-06-03 00:00:00 2020-06-03 00:00:00 [facility] Current every day 2018-08-18 00:00:00 K[facility] Medications Ordered Filled Start Stop Current Ordering Indication Dosage Frequency Signature Comments Components Source Medication Medication Date Date Medication? Clinician (SIG) Name Name Insulin Yes [id number] 24U inject 24 Univers Detemir 3-03 Units ity of ([place] 00:[place] FLEXT[place] 00 skin every Medi geena U-100 morning. Branch INSULN) 100 unit/mL (3 mL) injection insulin 2021-11 Yes [id number] 24U INJECT 24 Univers degludec 1-19 UNITS ity of (TRESIBA 00:00: [place] FLEXT[place]CH 00 SKIN EVERY Medi geena U-100) 100 MORNING. Branc h unit/mL (3 mL) InPn insulin 2021-11 Yes [id number] 24U INJECT 24 Univers degludec 1-19 UNITS ity of ([place]ESIBA 00:00: [place] FLEXTOUCH 00 SKIN EVERY Medi geena U-100) 100 MORNING. Branc h unit/mL (3 mL) InPn insulin 2021-11 Yes [id number] 24U INJECT 24 Univers degludec 1-19 UNITS ity of ([place] 00:00: [place] FLEXTOUCH 00 SKIN EVERY Medi geena U-100) 100 MORNING. Branc h unit/mL (3 mL) InPn insulin 2021-11 Yes [id number] 24U INJECT 24 Univers degludec 1-19 UNITS ity of ([place] 00:00: [place] FLEXTOUCH 00 SKIN EVERY Medi geena U-100) 100 MORNING. Branc h unit/mL (3 mL) InPn insulin 2021-11 Yes [id number] 24U INJECT 24 Univers degludec 1-19 UNITS ity of ([place] 00:00: [place] FLEXTOUCH 00 SKIN EVERY Medi geena U-100) 100 MORNING. Branc h unit/mL (3 mL) InPn insulin 2021-11 2023- No [id number] 24U INJECT 24 Univers degludec 1-19 03-03 UNITS ity of (TRESIBA 00:00: 00:00 UNDER THE [place] as FLEXTOUCH 00 :00 SKIN EVERY Medi geena U-100) 100 MORNING. Branc h unit/mL (3 mL) InPn Insulin Yes [id number] Use as Uni vers [facility], 06-11 directed ity of Disposable, 00:00: four times [place] (BD 00 a day. Medical ULTRA-FINE DX:E10.65 Bran ch MICRO PEN NEEDLE) 32 gauge x 1/4" Ndle blood sugar Yes [id number] Use as Univers diagnostic 06-11 directed ity o f (TRUE 00:00: up to 4 [place] METRIX 00 times a Medical GLUCOSE day Branch TEST STRIP) strip lancets Yes [id number] Use as Uni vers (ONE TOUCH 06-11 directed ity o f DELICA) 33 00:00: [place] 4 [place] gauge Misc 00 times a Medica l day E10.65 Branch insulin Yes [id number] INJECT UP Univers aspart 06-11 TO 10 ity of U-100 00:00: UNITS [place] (NOVOLOG 00 UNDER THE Medica l FLEXPEN SKIN 3 Branch U-100 TIMES A INSULIN) DAY WITH A 100 unit/mL MEAL PER (3 mL) SLIDING injection SCALE Insulin Yes [id number] Use as Uni vers [place], 06-11 directed ity of Disposable, 00:00: four times [place] (BD 00 a day. Medical ULTRA-FINE DX:E10.65 Bran ch MICRO PEN NEEDLE) 32 gauge x 1/4" Ndle blood sugar Yes [id number] Use as Univers diagnostic 06-11 directed ity o f (TRUE 00:00: up to 4 [place] METRIX 00 times a Medical GLUCOSE day Branch TEST STRIP) strip lancets Yes [id number] Use as Uni vers (ONE TOUCH 06-11 directed ity o f DELICA) 33 00:00: [place] 4 [place] gauge Misc 00 times a Medica l day E10.65 Branch insulin Yes [id number] INJECT UP Univers aspart 06-11 TO 10 ity of U-100 00:00: UNITS [place] (NOVOLOG 00 UNDER THE Medica l FLEXPEN SKIN 3 Branch U-100 TIMES A INSULIN) DAY WITH A 100 unit/mL MEAL PER (3 mL) SLIDING injection SCALE Insulin Yes [id number] Use as Uni vers [place], 06-11 directed ity of Disposable, 00:00: four times [place] (BD 00 a day. Medical ULTRA-FINE DX:E10.65 Bran ch MICRO PEN NEEDLE) 32 gauge x 1/4" Ndle blood sugar Yes [id number] Use as Univers diagnostic 06-11 directed ity o f (TRUE 00:00: up to 4 [place] METRIX 00 times a Medical GLUCOSE day Branch TEST STRIP) strip lancets Yes [id number] Use as Uni vers (ONE TOUCH 06-11 directed ity o f DELICA) 33 00:00: [place] 4 [place] gauge Misc 00 times a Medica l day E10.65 Branch insulin Yes [id number] INJECT UP Univers aspart 06-11 TO 10 ity of U-100 00:00: UNITS [place] (NOVOLOG 00 UNDER THE Medica l FLEXPEN SKIN 3 Branch U-100 TIMES A INSULIN) DAY WITH A 100 unit/mL MEAL PER (3 mL) SLIDING injection SCALE Insulin Yes [id number] Use as Uni vers [place], 06-11 directed ity of Disposable, 00:00: four times [place] (BD 00 a day. Medical ULTRA-FINE DX:E10.65 Bran ch MICRO PEN NEEDLE) 32 gauge x 1/4" Ndle insulin Yes [id number] 24U inject 24 Univers degludec 06-11 Units ity of (TRESIBA 00:00: [place] FLEXTOUCH 00 skin every Medi geena U-100) 100 morning. Branc h unit/mL (3 mL) InPn blood sugar Yes [id number] Use as Univers diagnostic 06-11 directed ity o f (TRUE 00:00: up to 4 [place] METRIX 00 times a Medical GLUCOSE day Branch TEST STRIP) strip lancets Yes [id number] Use as Uni vers (ONE TOUCH 06-11 directed ity o f DELICA) 33 00:00: up to 4 [place] gauge Misc 00 times a Medica l day E10.65 Branch insulin Yes [id number] INJECT UP Univers aspart 8 TO 10 ity of U-100 00:00: UNITS [place] (NOVOLOG 00 UNDER THE Medica l FLEXPEN SKIN 3 Branch U-100 TIMES A INSULIN) DAY WITH A 100 unit/mL MEAL PER (3 mL) SLIDING injection SCALE Insulin Yes [id number] Use as Uni vers [place], 06-11 directed ity of Disposable, 00:00: four times [place] (BD 00 a day. Medical ULTRA-FINE DX:E10.65 Bran ch MICRO PEN NEEDLE) 32 gauge x 1/4" Ndle blood sugar Yes [id number] Use as Univers diagnostic 06-11 directed ity o f (TRUE 00:00: up to 4 [place] METRIX 00 times a Medical GLUCOSE day Branch TEST STRIP) strip lancets Yes [id number] Use as Uni vers (ONE TOUCH 06-11 directed ity o f DELICA) 33 00:00: [place] 4 [place] gauge Misc 00 times a Medica l day E10.65 Branch insulin Yes [id number] INJECT UP Univers aspart 06-11 TO 10 ity of U-100 00:00: UNITS [place] (NOVOLOG 00 UNDER THE Medica l FLEXPEN SKIN 3 Branch U-100 TIMES A INSULIN) DAY WITH A 100 unit/mL MEAL PER (3 mL) SLIDING injection SCALE Insulin Yes [id number] Use as Uni vers [place], 06-11 directed ity of Disposable, 00:00: four times [place] (BD 00 a day. Medical ULTRA-FINE DX:E10.65 Bran ch MICRO PEN NEEDLE) 32 gauge x 1/4" Ndle blood sugar Yes [id number] Use as Univers diagnostic 06-11 directed ity o f (TRUE 00:00: up to 4 [place] METRIX 00 times a Medical GLUCOSE day Branch TEST STRIP) strip lancets Yes [id number] Use as Uni vers (ONE TOUCH 06-11 directed ity o f DELICA) 33 00:00: [place] 4 [place] gauge Misc 00 times a Medica l day E10.65 Branch insulin 0 Yes [id number] INJECT UP Univers aspart 8-09 TO 10 ity of U-100 00:00: UNITS [place] (NOVOLOG 00 UNDER THE Medica l FLEXPEN SKIN 3 Branch U-100 TIMES A INSULIN) DAY WITH A 100 unit/mL MEAL PER (3 mL) SLIDING injection SCALE Insulin Yes [id number] Use as Uni vers [place], 06-11 directed ity of Disposable, 00:00: four times [place] (BD 00 a day. Medical ULTRA-FINE DX:E10.65 Bran ch MICRO PEN NEEDLE) 32 gauge x 1/4" Ndle blood sugar Yes [id number] Use as Univers diagnostic 06-11 directed ity o f (TRUE 00:00: up to 4 [place] METRIX 00 times a Medical GLUCOSE day Branch TEST STRIP) strip lancets Yes [id number] Use as Uni vers (ONE TOUCH 06-11 directed ity o f DELICA) 33 00:00: [place] 4 [place] gauge Misc 00 times a Medica l day E10.65 Branch insulin Yes [id number] INJECT UP Univers aspart 8- TO 10 ity of U-100 00:00: UNITS [place] (NOVOLOG 00 UNDER THE Medica l FLEXPEN SKIN 3 Branch U-100 TIMES A INSULIN) DAY WITH A 100 unit/mL MEAL PER (3 mL) SLIDING injection SCALE Insulin Yes [id number] Use as Uni vers [place], 06-11 directed ity of Disposable, 00:00: four times [place] (BD 00 a day. Medical ULTRA-FINE DX:E10.65 Bran ch MICRO PEN NEEDLE) 32 gauge x 1/4" Ndle blood sugar 0 Yes [id number] Use as Univers diagnostic 06-11 directed ity o f (TRUE 00:00: up to 4 [place] METRIX 00 times a Medical GLUCOSE day Branch TEST STRIP) strip lancets Yes [id number] Use as Uni vers (ONE TOUCH 06-11 directed ity o f DELICA) 33 00:00: [place] 4 [place] gauge Misc 00 times a Medica l day E10.65 Branch insulin 2022-0 Yes [id number] INJECT UP Univers aspart 06-11 TO 10 ity of U-100 00:00: UNITS [place] (NOVOLOG 00 UNDER THE Medica l FLEXPEN SKIN 3 Branch U-100 TIMES A INSULIN) DAY WITH A 100 unit/mL MEAL PER (3 mL) SLIDING injection SCALE Insulin Yes [id number] Use as Uni vers [place], 06-11 directed ity of Disposable, 00:00: four times [place] (BD 00 a day. Medical ULTRA-FINE DX:E10.65 Bran ch MICRO PEN NEEDLE) 32 gauge x 1/4" Ndle blood sugar Yes [id number] Use as Univers diagnostic 06-11 directed ity o f (TRUE 00:00: up to 4 [place] METRIX 00 times a Medical GLUCOSE day Branch TEST STRIP) strip lancets Yes [id number] Use as Uni vers (ONE TOUCH 06-11 directed ity o f DELICA) 33 00:00: [place] 4 [place] gauge Misc 00 times a Medica l day E10.65 Branch insulin Yes [id number] INJECT UP Univers aspart 06-11 TO 10 ity of U-100 00:00: UNITS [place] (NOVOLOG 00 UNDER THE Medica l FLEXPEN SKIN 3 Branch U-100 TIMES A INSULIN) DAY WITH A 100 unit/mL MEAL PER (3 mL) SLIDING injection SCALE insulin 2021- No [id number] 24U inject 24 Univers degludec 06-11 11-19 Units ity of (TRESIBA 00:00: 00:00 under the [place] FLEXTOUCH 00 :00 skin every Medi geena U-100) 100 morning. Branc h unit/mL (3 mL) InPn Insulin NPH 2021- No [id number] 24 units Univers Human 06-04 every ity of [place] 00:00: 00:00 morning(2A [place] (NOVOLIN N 00 :00 M) and 12 Medi geena FLEXPEN) units Branch 100 unit/mL before (3 mL) bedtime ( injection 4PM) insulin 2021- No [id number] INJECT UP Univers aspart 06-04 TO 10 ity of U-100 00:00: 00:00 UNITS [place] (NOVOLOG 00 :00 UNDER THE Medica l FLEXPEN SKIN 3 Branch U-100 TIMES A INSULIN) DAY WITH A 100 unit/mL MEAL PER (3 mL) SLIDING injection SCALE lancets 2021- No [id number] Use as Un thomas (ONE TOUCH 306-11 directed ity of DELICA) 33 00:00: 00:00 up to 4 [place] gauge Misc 00 :00 times a Medica l day E10.65 Branch TRUE METRIX 2021- No [id number] Use as Univers GLUCOSE 01-04 directed ity of TEST STRIP 00:00: 00:00 up to 4 [place] as strip 00 :00 times a Medical day Branch Insulin 0 2021- No [id number] Use as Un thomas [facility], 11-23 directed ity of Disposable, 00:00: 00:00 four times [place] (BD 00 :00 a day. Medical ULTRA-FINE DX:E10.65 Bran MICRO PEN NEEDLE) 32 gauge x 1/4" Ndle [facility] Yes [id number] Use as Un thomas VERIO IQ 3-13 directed ity of METER Kit 00:00: [place] E10.65 [place] 00 [facility] Yes [id number] Use as Un thomas VERIO IQ 3-13 directed ity of METER Kit 00:00: TID E10.65 [place] 00 [facility] Yes [id number] Use as Un thomas VERIO IQ 3-13 directed ity of METER Kit 00:00: [place] E10.65 [place] [facility] Yes [id number] Use as Un thomas VERIO IQ 3-13 directed ity of METER Kit 00:00: TID E10.65 [place] 00 [facility] Yes [id number] Use as Un thomas VERIO IQ 3-13 directed ity of METER Kit 00:00: TID E10.65 [place] 00 [facility] Yes [id number] Use as Un thomas VERIO IQ 3-13 directed ity of METER Kit 00:00: TID E10.65 [place] 00 [facility] Yes [id number] Use as Un thomas VERIO IQ 3-13 directed ity of METER Kit 00:00: [place]ID [place]10.65 [place] [facility] Branch ONETOUCH Yes [id number] Use as Un thomas VERIO IQ 3-13 directed ity of METER Kit 00:00: TID E10.65 [place] [facility] Branch ONETOUCH 0 Yes [id number] Use as Un thomas VERIO IQ 3-13 directed ity of METER Kit 00:00: TID E10.[address] Branch insulin 2017-11 Yes 27U QD Inject [facility] 0-21 0.27 [facility]s [facility] (L[facility]) 00:00: (27 Units Medi geena 100 unit/mL 00 total) Center syringe subcutaneo usly every morning Use as directed. insulin 2017-11 Yes 27U QD Inject [facility] glargine 0-21 0.27 mLs [facility] (LANTUS) 00:00: (27 Units Medi geena 100 unit/mL 00 total) Center syringe subcutaneo usly every morning Use as directed. Vital Signs Vital Name Observation Time Observation Value Comments Source Systolic blood 2022-06-11 16:53:00 120 mm[Hg] [facility] Diastolic blood 2022-06-11 16:53:00 81 mm[Hg] [facility] Heart rate 2022-06-11 16:53:00 93 /min [facility] Body weight 2022-06-11 16:53:00 76.431 kg [facility] BMI 2022-06-11 16:53:00 30.82 kg/m2 [facility] Oxygen saturation 2022-06-11 16:53:00 98 /min [facility] in Arterial blood [facility] Br anch by Pulse oximetry Procedures Procedure Date / Time Performed Performing Clinician Sourc e POCT HEMOGLOBIN A1C 2022-06-11 16:56:00 Beatriz Moreira [facility] [id number] 2020-11-30 00:00:00 [facility] [id number] 2020-11-30 00:00:00 [facility] Encounters Start End Encounter Admission Attending Care Care Encounter Source Date/Time Date/Time Type Type Clinicians Facility Department ID 2021-08-31 Inpatient U ANSELMO FIGUEROA [facility] [id number] Univers 10:13:06 ANSELMO FIGUEROA it y of [facility] 2020-11-29 Inpatient EM Jose, [facility] LD [id number] [facility] 20:33:00 Ziad 65 [facility] 2020-11-22 Inpatient EL Jose, [facility] OBANTE [id number] [facility] 10:30:00 Ziad 82 [facility] 2020-09-28 Inpatient Jose, [facility] TONY [id number] [facility] 03:41:00 Ziad 79 [facility] 2020-09-26 Inpatient EL Jose, [facility] INTE [id number] [facility] 12:48:00 Ziad 85 [facility] 2020-08-05 Inpatient [facility] JED [id number] [facility] 00:52:00 53 [facility] 2023-01-03 2023-01-03 Refill [facility] [id number] Univers 00:00:00 00:00:00 [facility] [id number] it y of [place] 4.2.7.2.686 [place] as JURGEN?BLEA [id number] [address] MEDICAL OFFICE [facility] 2022-12-23 2022-12-23 Telephone [facility] [id number] Univers 00:00:00 00:00:00 [facility] [id number] it y of [place] 4.2.7.2.686 [place] as JURGEN?BLEA [id number] [address] MEDICAL OFFICE [facility] 2022-11-26 2022-11-26 [id number] Univers 12:00:00 12:00:00 [facility] 2022-09-20 2022-09-20 Refill [facility] [id number] Univers 00:00:00 00:00:00 [facility] [id number] it y of [place] 4.2.7.2.686 [place] as JURGEN?BLEA [id number] [address] MEDICAL OFFICE BUILDING 2022-06-11 2022-06-11 Outpatient R JARAD [facility] [id number] Univers 12:00:00 12:40:04 [facility]22-06-11 2022-06-11 [facility] [id number] Univers 12:00:00 12:40:04 Visit [facility] [id number] it y of [place] [id number] [place] as JURGEN?BLEA [id number] [address] MEDICAL OFFICE [facility] 2022-06-11 2022-06-11 Outpatient R JARAD [facility] [id number] Univers 12:00:00 12:00:00 [facility] 2022-06-11 2022-06-11 Orders Doctor LAZARO [id number] Univers 00:00:00 00:00:00 Only Unassigned, GENARO [id number] ity of [place] [facility] 4.2.7.2.686 [place] as [phone] [address] 2022-02-25 2022-02-25 Orders Doctor LAZARO [id number] Univers 00:00:00 00:00:00 Only Unassigned, GENARO 350.1.13.10 ity of [place] [facility] 4.2.7.2.686 [place] as [id number] [address] 2020-11-22 2020-11-22 Outpatient Jose, SHIRAWU REFE [id number] [facility] 14:51:00 14:51:00 Ziad 76 [facility] 2020-09-26 2020-09-26 Outpatient Jose, SHIRAWU REFE [id number] [facility] 17:05:00 17:05:00 Ziad 75 [facility] 2020-09-20 2020-09-20 Refill Jarad [facility] [id number] 00:00:00 00:00:00 [facility] Basom [id number] [place] 4.2.7.2.686 Professio [phone] [address] 2020-07-16 2020-07-16 Refill Jarad [facility] [id number] 00:00:00 00:00:00 Beatriz Basom 350.1.13.10 [place] 4.2.7.2.686 [place] [id number] nal 220 [facility] 2020-06-20 2020-06-20 Outpatient R JARAD [facility] [id number] Univers 10:00:00 [facility]00[facility] 2020-05-30 2020-05-30 Outpatient R [facility] [id number] Univers 08:00:00 08:00:00 [facility] 2020-05-09 2020-05-09 Outpatient R JARAD [facility] [id number] Univers 14:00:00 [facility]:00[facility] 2020-01-05 2020-01-05 Outpatient R JARAD [facility] [id number] Univers 11:00:00 11:00:00 [facility] Results Test Description Test Time Test Comments Results Result Comments Source POCT HEMOGLOBIN A1C TEST 2022-06-11 16:56:00 Test Item Value Reference Range Interpretation Comme nts POCT HBA1C (test code = 4548-4) 14 % 4-6 A Lab Interpretation (test code = 48537-3) Abnormal [facility] [id number] 07:05:48 Test Item Value Reference Range Interpretation Comments HEMOGLOBIN A1c (test 12.7 % 4.2-5.6 H AMERIC AN DIABETES code = 00137) ASSOCIATION IDELINES FOR HGB A1C: PREDIABETES/INC REASED RISK . . . . . . . 5 .7-6.4% DIAGNOSIS OF DI ABETES . . . . . . . . . >=6 .5% WITH CONFIRMATION OR APPROPRIATE SYMPTOMS NOTE: ASSAY MAY BE AFFECTED BY HEMOGLOBINOPATH IES (SICKLE CELL ANEMIA, S- C DISEASE, OTHERS) OR HEATHER FICIALLY LOWERED BY DECR EASED RED CELL SURVIVAL ( HEMOLYTIC ANEMIAS, BLOOD LOSS, ETC.). CONSIDER ALTERN ATE TESTING OR LABORATORY C ONSULTATION. UNLESS OTHERWIS E INDICATED, ALL TESTING PER FORMED ATCLINICAL PATH [facility], [facility]. [address] [place] [address] LABORATORY DIRE CTOR: Ca HOOVER CLIA NUMBER [id number] CAP ACCREDITATION N O. [id number] ALBUMIN/CREATININE RATIO, URINE, [id number] 04:35:05 Test Item Value Reference Range Interpretation Comments CREATININE, URINE, 151.8 MG/DL NOT ESTAB RANDOM (test code = 2072) ALBUMIN, URINE, 212.2 MG/DL NOT ESTAB RANDOM (test code = 42705) CALC ALBUMIN/CREAT, 1398 MG/G <30 H Note: RND (test code = Albumin/Cre atinine 28422) ratio reference interval reflec ts ADA and NKF guideli svitlana. PLACENTA THIRD [id number] 11:28:00 Test Item Value Reference Range Interpretation Comments PLACENTA THIRD TRIMESTER (test code = PLACIII) RUN DATE: 12/07/20 [facility] PAGE 1 RUN TIME: 1403 Specimen Inquiry RUN USER: INTERFACE PATIENT: TASHI MOSQUERA LOC: MICHAEL U #: [id number] AGE/SX: 25/F ROOM: 2029 RE11/29/20REG DR: Natalie Garcia MD : 94 BED: A DIS: 12/03/20 STATUS: DIS IN TLOC: SPEC #: [id number] RECD: 12/01/20 STATUS: REKHA KO #: [id number] THERESE: 11/30/20- SUBM DR: Natalie Garcia MD ENTERED: 12/01/20 SP TYPE: PLACIII OTHR DR: ORDERED: LEVEL V SURGICA CODES: [id number] - PLACENTA, NOS PROCEDURES: LEVEL V SURGICA [...] risk for recurrence in future pregnancies. CPT: 17873 [facility] GROSS DESCRIPTION The specimen was received in a container, labeled with the patient's name, unit number and designated "placenta". The following attributes are observed: Cord insertion: 1 cm from margin CONTINUED ON NEXT PAGE RUN DATE: 12/07/20 [facility] PAGE 2 RUN TIME: 1403 Specimen Inquiry RUN USER: INTERFACE SPEC #: [id number] PATIENT: TASHI MOSQUERA #[id number] (Continued) --- GROSS DESCRIPTION (Continued) Cord length: [...] Olive Young 12/07/20 1128 END OF REPORT [id number] 11:58:00 Test Item Value Reference Range Interpretation Comments GLUBED (test code = GLUBED) 71 mg/dL 65-110 N [id number] 06:51:00 Test Item Value Reference Range Interpretation Comments GLUBED (test code = GLUBED) 80 mg/dL 65-110 N [id number] 21:24:00 Test Item Value Reference Range Interpretation Comments GLUBED (test code = GLUBED) 103 mg/dL 65-110 N [id number] 15:15:00 Test Item Value Reference Range Interpretation Comments GLUBED (test code = GLUBED) 206 mg/dL 65-110 H [id number] 09:56:00 Test Item Value Reference Range Interpretation Comments GLUBED (test code = GLUBED) 200 mg/dL 65-110 H [id number] 06:48:00 Test Item Value Reference Range Interpretation Comments GLUBED (test code = GLUBED) 64 mg/dL 65-110 L [id number] 21:12:00 Test Item Value Reference Range Interpretation Comments GLUBED (test code = GLUBED) 186 mg/dL 65-110 H [id number] 14:15:00 Test Item Value Reference Range Interpretation Comments GLUBED (test code = GLUBED) 177 mg/dL 65-110 H [id number] 10:42:00 Test Item Value Reference Range Interpretation Comments GLUBED (test code = GLUBED) 242 mg/dL 65-110 H [id number] 08:21:00 Test Item Value Reference Range Interpretation Comments HEMOGLOBIN (test code = HGB) 11.7 g/dL 10.7-13.9 N HEMATOCRIT (test code = HCT) 36.4 % 32.1-42.1 N [id number] 06:49:00 Test Item Value Reference Range Interpretation Comments GLUBED (test code = GLUBED) 115 mg/dL 65-110 H [id number] 22:46:00 Test Item Value Reference Range Interpretation Comments GLUBED (test code = GLUBED) 129 mg/dL 65-110 H [id number] 19:28:00 Test Item Value Reference Range Interpretation Comments GLUBED (test code = GLUBED) 221 mg/dL 65-110 H [id number] 17:42:00 Test Item Value Reference Range Interpretation Comments GLUBED (test code = GLUBED) 359 mg/dL 65-110 H [id number] 10:51:00 Test Item Value Reference Range Interpretation Comments GLUBED (test code = GLUBED) 126 mg/dL 65-110 H ARTERIAL BLOOD [id number] 10:01:00 Test Item Value Reference Range Interpretation [...] FIO2 (test code = FIO2A) 21.0 % PaO2/[id number] 10:01:00 Test Item Value Reference Range Interpretation Comments PaO2/FiO2 (test code = OXI9MCW0) mm/Hg ARTERIAL BLOOD [id number] 10:01:00 Test Item Value Reference Range Interpretation [...] FIO2 (test code = FIO2A) 21.0 % PaO2/[id number] 10:01:00 Test Item Value Reference Range Interpretation Comments PaO2/FiO2 (test code = HYE5GQB4) 70.40 mm/Hg CAPILLARY BLOOD [id number] 10:00:00 Test Item Value Reference Range Interpretation [...] FIO2 (test 21.0 % code = FIO2C) [id number] 06:32:00 Test Item Value Reference Range Interpretation Comments GLUBED (test code = GLUBED) 183 mg/dL 65-110 H [id number] 02:15:00 Test Item Value Reference Range Interpretation Comments GLUBED (test code = GLUBED) 82 mg/dL 65-110 N [id number] 22:52:00 Test Item Value Reference Range Interpretation Comments GLUBED (test code = GLUBED) 200 mg/dL 65-110 H AG HEPATITIS B [id number] 22:46:00 Test Item Value Reference Range Interpretation Comments AG HEPATITIS B SURFACE (test code NONREACTIVE NONREACTIVE = HBSAG) IS CONSENT FORM SIGNED FOR HIV TESTING? YAB HEPATITIS C [id number] 22:46:00 Test Item Value Reference Range Interpretation Comments AB HEPATITIS C (test code = NONREACTIVE NONREACTIVE HCVAB) SIGNAL TO CUTOFF (test code = 0.03 <0.80 N CUTOFF) IS CONSENT FORM SIGNED FOR HIV TESTING? YAB [id number] 22:46:00 Test Item Value Reference Range Interpretation Comments AB TREPONEMA (test code = TREPAB) NONREACTIVE NONREACTIVE IS CONSENT FORM SIGNED FOR HIV TESTING? YAB HIV 1 22:46:00 Test Item Value Reference Range Interpretation Comments AB HIV 1 2 (test NONREACTIVE NONREACTIVE [facility] = [id number]) 4th Gen HIV Ag/Ab Combo Screen IS CONSENT FORM SIGNED FOR HIV TESTING? YAG HEPATITIS B [id number] 22:16:00 Test Item Value Reference Range Interpretation Comments AG HEPATITIS B SURFACE (test code NONREACTIVE NONREACTIVE = HBSAG) IS CONSENT FORM SIGNED FOR HIV TESTING? YAB HEPATITIS C [id number] 22:16:00 Test Item Value Reference Range Interpretation Comments AB HEPATITIS C (test code = HCVAB) NONREACTIVE SIGNAL TO CUTOFF (test code = CUTOFF) <0.80 IS CONSENT FORM SIGNED FOR HIV TESTING? YAB [id number] 22:16:00 Test Item Value Reference Range Interpretation Comments AB TREPONEMA (test code = TREPAB) NONREACTIVE NONREACTIVE IS CONSENT FORM SIGNED FOR HIV TESTING? YAB HIV 1 22:16:00 Test Item Value Reference Range Interpretation Comments AB HIV 1 2 (test code = BKC50WU) NONREACTIVE IS CONSENT FORM SIGNED FOR HIV TESTING? YCBC W/AUTO [id number] 21:47:00 Test Item Value Reference Range Interpretation [...] code = PLTMR) COVID 19 Asymptomatic IH [id number] 21:44:00 Test Item Value Reference Range Interpretation [...] and/o r diagnosis of CO VID-19 under Bsdtvku38 4(b)(1) of the Act, 21 U.S .C. 360bbb-3(b)(1), unless theauthorizatio n is terminated or r evoked sooner. [id number] 10:30:00 Test Item Value Reference Range Interpretation Comments GLUBED (test code = GLUBED) 105 mg/dL 65-110 N [id number] 06:29:00 Test Item Value Reference Range Interpretation Comments GLUBED (test code = GLUBED) 126 mg/dL 65-110 H [id number] 01:02:00 Test Item Value Reference Range Interpretation Comments GLUBED (test code = GLUBED) 72 mg/dL 65-110 N [id number] 20:42:00 Test Item Value Reference Range Interpretation Comments GLUBED (test code = GLUBED) 88 mg/dL 65-110 N [id number] 14:39:00 Test Item Value Reference Range Interpretation Comments GLUBED (test code = GLUBED) 149 mg/dL 65-110 H [id number] 11:20:00 Test Item Value Reference Range Interpretation Comments GLUBED (test code = GLUBED) 74 mg/dL 65-110 N [id number] 06:28:00 Test Item Value Reference Range Interpretation Comments GLUBED (test code = GLUBED) 103 mg/dL 65-110 N [id number] 06:28:00 Test Item Value Reference Range Interpretation Comments GLUBED (test code = GLUBED) 76 mg/dL 65-110 N [id number] 22:06:00 Test Item Value Reference Range Interpretation Comments GLUBED (test code = GLUBED) 78 mg/dL 65-110 N [id number] 16:07:00 Test Item Value Reference Range Interpretation Comments GLUBED (test code = GLUBED) 167 mg/dL 65-110 H [id number] 10:42:00 Test Item Value Reference Range Interpretation Comments GLUBED (test code = GLUBED) 130 mg/dL 65-110 H [id number] 04:47:00 Test Item Value Reference Range Interpretation Comments GLUBED (test code = GLUBED) 78 mg/dL 65-110 N [id number] 20:47:00 Test Item Value Reference Range Interpretation Comments GLUBED (test code = GLUBED) 160 mg/dL 65-110 H [id number] 14:52:00 Test Item Value Reference Range Interpretation Comments GLUBED (test code = GLUBED) 235 mg/dL 65-110 H [id number] 10:54:00 Test Item Value Reference Range Interpretation Comments GLUBED (test code = GLUBED) 148 mg/dL 65-110 H [id number] 07:01:00 Test Item Value Reference Range Interpretation Comments GLUBED (test code = GLUBED) 82 mg/dL 65-110 N [id number] 06:05:00 Test Item Value Reference Range Interpretation Comments GLUBED (test code = GLUBED) 61 mg/dL 65-110 L [id number] 20:39:00 Test Item Value Reference Range Interpretation Comments GLUBED (test code = GLUBED) 312 mg/dL 65-110 H GLYCOSYLATED HEMOGLOBIN [id number] 17:32:00 Test Item Value Reference Range Interpretation [...] H (test code = MBG) COMPREHENSIVE METABOLIC [id number] 17:32:00 Test Item Value Reference Range Interpretation [...] considered for these patients. AG HEPATITIS B [id number] 15:30:00 Test Item Value Reference Range Interpretation Comments AG HEPATITIS B SURFACE (test code NONREACTIVE NONREACTIVE = HBSAG) IS CONSENT FORM SIGNED FOR HIV TESTING? YAB HEPATITIS C [id number] 15:30:00 Test Item Value Reference Range Interpretation Comments AB HEPATITIS C (test code = NONREACTIVE NONREACTIVE HCVAB) SIGNAL TO CUTOFF (test code = 0.02 <0.80 N CUTOFF) IS CONSENT FORM SIGNED FOR HIV TESTING? YAB [id number] 15:30:00 Test Item Value Reference Range Interpretation Comments AB TREPONEMA (test code = TREPAB) NONREACTIVE NONREACTIVE IS CONSENT FORM SIGNED FOR HIV TESTING? YAB HIV 1 15:30:00 Test Item Value Reference Range Interpretation Comments AB HIV 1 2 (test NONREACTIVE NONREACTIVE Done by [facility] code = [id number]) 4th Gen HIV Ag/Ab Combo Screen IS CONSENT FORM SIGNED FOR HIV TESTING? [id number] 15:23:00 Test Item Value Reference Range Interpretation Comments GLUBED (test code = GLUBED) 266 mg/dL 65-110 H COVID 19 Asymptomatic IH [id number] 15:16:00 Test Item Value Reference Range Interpretation [...] and/o r diagnosis of CO VID-19 under Gmzoirm35 4(b)(1) of the Act, 21 U.S .C. 360bbb-3(b)(1), unless theauthorizatio n is terminated or r evoked sooner. AG HEPATITIS B [id number] 15:08:00 Test Item Value Reference Range Interpretation Comments AG HEPATITIS B SURFACE (test code NONREACTIVE NONREACTIVE = HBSAG) IS CONSENT FORM SIGNED FOR HIV TESTING? YAB HEPATITIS C [id number] 15:08:00 Test Item Value Reference Range Interpretation Comments AB HEPATITIS C (test code = HCVAB) NONREACTIVE SIGNAL TO CUTOFF (test code = CUTOFF) <0.80 IS CONSENT FORM SIGNED FOR HIV TESTING? YAB [id number] 15:08:00 Test Item Value Reference Range Interpretation Comments AB TREPONEMA (test code = TREPAB) NONREACTIVE NONREACTIVE IS CONSENT FORM SIGNED FOR HIV TESTING? YAB HIV 1 15:08:00 Test Item Value Reference Range Interpretation Comments AB HIV 1 2 (test code = GUV10YP) NONREACTIVE IS CONSENT FORM SIGNED FOR HIV TESTING? YUR PROTEIN/CREATININE [id number] 14:46:00 Test Item Value Reference Range Interpretation Comments UR PROTEIN RANDOM (test code = 11.5 mg/dL PROTU) UR CREATININE RANDOM (test 24.6 mg/dL code = CREATU) PROTEIN/CREATININE RATIO (test 460.0 mg/gcrea <200 H code = P/CRATIO) COMPREHENSIVE METABOLIC [id number] 14:38:00 Test Item Value Reference Range Interpretation [...] (HA1C) (test code = GLYHGB) CBC W/AUTO [id number] 14:26:00 Test Item Value Reference Range Interpretation [...] NORMAL NORMAL code = PLTMR) - US [id number] 06:06:00 [facility] 1995 Sex: F Patient Name: TASHI MOSQUERA Unit No: [id number] EXAMS: CPT CODE: [id number] [place] LTD [address]01 STUDY: - US LTD 09/28/2020 5:04 AM Ordering Physician: Cipriano Alex III, MD Patient Name: TASHI MOSQUERA MR: [id number] : 1995; Age: 25 years y/o Female [...] Cord: Not evaluated. Cord Insertion: Not evaluated. Extremities:Not evaluated. BIOMETRIC MEASUREMENTS Not performed. IMPRESSION: Single live intrauterine at 27 weeks 3 days as above described. [facility] NAME: TASHI MOSQUERA Radiology Department PHYS: Cipriano Michelle III, MD [address] : 1995 AGE: 25 SEX: F [place], [place] [address] LOC: AnupTONY PHONE #: [phone] EXAM DATE: 09/28/2020 STATUS: REG FAX #: [phone] RAD NO: Page 1 Signed Report (CONTINUED) Patient Name: TASHI MOSQUERA Unit No: [id number] EXAMS: CPT CODE: [id number] [place] LTD 11907 (Continued) ALEXY 17.8 cm. Trace fluid in the endocervical canal. The structures are not individually characterized on this examination, but no abnormality is demonstrated. GENERAL OBSERVATIONS REGARDING ULTRASOUND: 1. A normal ornegative sonogram report should not delay further investigation of a clinically suspicious or abnormal . 2. position or overlap of parts may prevent complete evaluation of the fetus. 3. Congenital and developmental abnormalities are not always sonographically visualized. 4. Repeatsonograms may be necessary depending on the clinical development during . SL: TPAINTER-H at 0606 Reported and signed by: MD Chucho CC: Natalie Garcia MD; Cipriano Alex III, MD Technologist: ERICA ZHOU RDGA, T Probe: Trnscrbd D/ (0606) [email or web address] Orig Print D/T: S: 09/28/2020 (0609) [facility] NAME: [facility] Radiology Department PHYS: Cipriano Michelle III, MD [address] : 1995 AGE: 25 SEX: F [place] [address] LOC: AnupTONY PHONE #: [phone] EXAM DATE: 09/28/2020 STATUS: REG ER FAX #: [phone] RAD NO: Page 2 Signed Report Patient Name: [facility] Unit No: [id number] EXAMS: CPT CODE: [id number] LTD 76068 (Continued) [facility] [place] NAME: [facility] Radiology Department PHYS: Cipriano Michelle III, MD [address]: 1995 AGE: 25 SEX: F [place] [address] LOC: AnupTONY PHONE #: [phone] EXAM DATE: 09/28/2020 STATUS: REG ER FAX #: [phone] RAD NO: Page 3 Signed ReportURINALYSIS [id number] 05:32:00 Test Item Value Reference Range Interpretation [...] SEEN Specimen Comment: JOSE ROSALES SAMPLE: CLEAN [id number] 05:29:00 Test Item Value Reference Range Interpretation Comments GLUBED (test code = GLUBED) 91 mg/dL 65-110 N [id number] 14:54:00 Test Item Value Reference Range Interpretation Comments GLUBED (test code = GLUBED) 95 mg/dL 65-110 N [id number] 14:54:00 Test Item Value Reference Range Interpretation Comments GLUBED (test code = GLUBED) 124 mg/dL 65-110 H [id number] 14:54:00 Test Item Value Reference Range Interpretation Comments GLUBED (test code = GLUBED) 131 mg/dL 65-110 H COMPREHENSIVE METABOLIC [id number] 12:46:00 Test Item Value Reference Range Interpretation [...] 44 units/L 46-116 L code = ALKP) [id number] 12:46:00 Test Item Value Reference Range Interpretation Comments PHOSPHOROUS (test code = PHOS) 1.6 mg/dL 2.5-4.9 L [id number] 12:46:00 Test Item Value Reference Range Interpretation Comments MAGNESIUM (test code = MAG) 1.7 mg/dL 1.8-2.4 L CBC W/AUTO [id number] 12:04:00 Test Item Value Reference Range Interpretation [...] REQUIRED (test NORMAL NORMAL code = PLTMR) [id number] 10:33:00 Test Item Value Reference Range Interpretation Comments GLUBED (test code = GLUBED) 136 mg/dL 65-110 H [id number] 10:33:00 Test Item Value Reference Range Interpretation Comments GLUBED (test code = GLUBED) 180 mg/dL 65-110 H COMPREHENSIVE METABOLIC [id number] 07:48:00 Test Item Value Reference Range Interpretation [...] 42 units/L 46-116 L code = ALKP) [id number] 07:48:00 Test Item Value Reference Range Interpretation Comments PHOSPHOROUS (test code = PHOS) 1.6 mg/dL 2.5-4.9 L [id number] 07:48:00 Test Item Value Reference Range Interpretation Comments MAGNESIUM (test code = MAG) 1.6 mg/dL 1.8-2.4 L [id number] 07:06:00 Test Item Value Reference Range Interpretation Comments GLUBED (test code = GLUBED) 184 mg/dL 65-110 H [id number] 06:27:00 Test Item Value Reference Range Interpretation Comments GLUBED (test code = GLUBED) 187 mg/dL 65-110 H COMPREHENSIVE METABOLIC [id number] 05:46:00 Test Item Value Reference Range Interpretation [...] 42 units/L 46-116 L code = ALKP) [id number] 05:46:00 Test Item Value Reference Range Interpretation Comments MAGNESIUM (test code = MAG) 1.6 mg/dL 1.8-2.4 L CBC W/AUTO [id number] 05:34:00 Test Item Value Reference Range Interpretation [...] REQUIRED (test NORMAL NORMAL code = PLTMR) [id number] 05:22:00 Test Item Value Reference Range Interpretation Comments GLUBED (test code = GLUBED) 208 mg/dL 65-110 H [id number] 04:21:00 Test Item Value Reference Range Interpretation Comments GLUBED (test code = GLUBED) 210 mg/dL 65-110 H [id number] 03:22:00 Test Item Value Reference Range Interpretation Comments GLUBED (test code = GLUBED) 229 mg/dL 65-110 H [id number] 02:22:00 Test Item Value Reference Range Interpretation Comments GLUBED (test code = GLUBED) 247 mg/dL 65-110 H [id number] 01:34:00 Test Item Value Reference Range Interpretation Comments GLUBED (test code = GLUBED) 261 mg/dL 65-110 H [id number] 00:21:00 Test Item Value Reference Range Interpretation Comments GLUBED (test code = GLUBED) 276 mg/dL 65-110 H [id number] 23:23:00 Test Item Value Reference Range Interpretation Comments GLUBED (test code = GLUBED) 282 mg/dL 65-110 H [id number] 22:29:00 Test Item Value Reference Range Interpretation Comments GLUBED (test code = GLUBED) 193 mg/dL 65-110 H [id number] 22:29:00 Test Item Value Reference Range Interpretation Comments GLUBED (test code = GLUBED) 172 mg/dL 65-110 H [id number] 22:29:00 Test Item Value Reference Range Interpretation Comments GLUBED (test code = GLUBED) 123 mg/dL 65-110 H [id number] 22:29:00 Test Item Value Reference Range Interpretation Comments GLUBED (test code = GLUBED) 158 mg/dL 65-110 H [id number] 22:29:00 Test Item Value Reference Range Interpretation Comments GLUBED (test code = GLUBED) 192 mg/dL 65-110 H COMPREHENSIVE METABOLIC [id number] 21:00:00 Test Item Value Reference Range Interpretation [...] units/L 46-116 TOTAL (test code = ALKP) [id number] 21:00:00 Test Item Value Reference Range Interpretation Comments PHOSPHOROUS (test code = PHOS) 1.8 mg/dL 2.5-4.9 L [id number] 21:00:00 Test Item Value Reference Range Interpretation Comments MAGNESIUM (test code = MAG) 1.4 mg/dL 1.8-2.4 L OSMOLALITY [id number] 20:51:00 Test Item Value Reference Range Interpretation Comments OSMOLALITY SERUM (test code = 296 mOsm/kg 275-295 H OSMO) OSMOLALITY [id number] 20:51:00 Test Item Value Reference Range Interpretation [...] be considered for these patients. GLYCOSYLATED HEMOGLOBIN [id number] 20:49:00 Test Item Value Reference Range Interpretation [...] H (test code = MBG) CBC W/AUTO [id number] 19:25:00 Test Item Value Reference Range Interpretation [...] NORMAL NORMAL code = PLTMR) VBG IONIZED [id number] 19:21:00 Test Item Value Reference Range Interpretation Comments VBG IONIZED CALCIUM (test code = 1.06 mmol/L 0.9-1.29 N ICAL/VBG) COMPREHENSIVE METABOLIC [id number] 19:09:00 Test Item Value Reference Range Interpretation Comments SODIUM (test code = 135 mEq/L 135-145 N NA) POTASSIUM (test code 3.9 mEq/L 3.5-5.0 N = K) CHLORIDE (test code 104 mEq/L 100-115 N = CL) CARBON DIOXIDE (test 10 mEq/L 22-31 LL RESULTS VERIFIED BY code = CO2) REPEAT ANALYSIS RESULTS CALLED TO PATRICK CISNEROS BACK & CONFIRME D? .BY FNithinLABNithinTTT 09/26 576. ANION GAP (test code 10-20 H = GAP) GLUCOSE (test code [...] 46-116 N TOTAL (test code = ALKP) [id number] 19:09:00 Test Item Value Reference Range Interpretation Comments PHOSPHOROUS (test code = PHOS) 1.9 mg/dL 2.5-4.9 L [id number] 19:09:00 Test Item Value Reference Range Interpretation Comments MAGNESIUM (test code = MAG) 1.5 mg/dL 1.8-2.4 L [id number] 17:36:00 Test Item Value Reference Range Interpretation Comments GLUBED (test code = GLUBED) 212 mg/dL 65-110 H UR PROTEIN/CREATININE [id number] 17:25:00 Test Item Value Reference Range Interpretation Comments UR PROTEIN RANDOM 56.6 mg/dL (test code = PROTU) UR CREATININE 11.1 mg/dL RANDOM (test code = CREATU) PROTEIN/CREATININE 5090.0 <200 H RESULTS V ERIFIED BY RATIO (test code = mg/gcrea REPEAT AN ALYSISRESULTS P/CRATIO) CALLED TO SASHA READ BACK & CONFIRME D? ERICK HebertLAB.TTT 09/26 9687 COMPREHENSIVE METABOLIC [id number] 17:24:00 Test Item Value Reference Range Interpretation Comments SODIUM (test code = 136 mEq/L 135-145 N NA) POTASSIUM (test code 4.7 mEq/L 3.5-5.0 N = K) CHLORIDE (test code 103 mEq/L 100-115 N = CL) CARBON DIOXIDE (test 11 mEq/L 22-31 LL RESULTS VERIFIED BY code = CO2) REPEAT ANALYSIS RESULTS CALLED TO SASHA READ BACK & CONFIRME D? YES.BY FNithinLAB.TT T 09/26/20 1293. ANION GAP (test code 26.90 10-20 H [...] 46-116 N TOTAL (test code = ALKP) [id number] 17:24:00 Test Item Value Reference Range Interpretation Comments PHOSPHOROUS (test code = PHOS) 2.9 mg/dL 2.5-4.9 N [id number] 17:24:00 Test Item Value Reference Range Interpretation Comments AMYLASE (test code = CHELSIE) 77 units/L 30-110 N [id number] 17:24:00 Test Item Value Reference Range Interpretation Comments MAGNESIUM (test code = MAG) 1.7 mg/dL 1.8-2.4 L C REACTIVE [id number] 17:08:00 Test Item Value Reference Range Interpretation Comments C REACTIVE PROTEIN (test code = 0.2 mg/dL 0.6-1.2 L CRP) URINALYSIS [id number] 17:00:00 Test Item Value Reference Range Interpretation [...] = MUCU) RARE NONE SEEN CBC W/AUTO [id number] 16:53:00 Test Item Value Reference Range Interpretation [...] NORMAL NORMAL code = PLTMR) COMPREHENSIVE METABOLIC [id number] 13:57:00 Test Item Value Reference Range Interpretation [...] 48 units/L 46-116 N code = ALKP) [id number] 13:57:00 Test Item Value Reference Range Interpretation Comments LIPASE (test code = LIP) 85 units/L 73-393 N ACETONE [id number] 13:57:00 Test Item Value Reference Range Interpretation Comments ACETONE QUAL (test code = ACETNQL) NEGATIVE NEGATIVE BETA [id number] 13:57:00 Test Item Value Reference Range Interpretation Comments BETA HYDROBUTYRATE (test 2.2 mg/dL () Ref erence Range:All code = BETHYD) Ages (fasting ): 0.2 - 2.8Performed At: [employer] [address] [place] [address] [id number] danial Blanton MD Ph:[phone] [id number] 13:24:00 Test Item Value Reference Range Interpretation Comments GLUBED (test code = GLUBED) 169 mg/dL 65-110 H [id number] 11:17:00 Test Item Value Reference Range Interpretation Comments GLUBED (test code = GLUBED) 91 mg/dL 65-110 N [id number] 07:59:00 Test Item Value Reference Range Interpretation Comments GLUBED (test code = GLUBED) 162 mg/dL 65-110 H - US PREG UT [id number] 04:23:00 Patient Name: TASHI MOSQUERA Unit No: [id number] EXAMS: CPT CODE: [id number] US PREG UT TRANSVAGINAL 48320 STUDY: - US LTD, - US PREG UT TRANSVAGINAL 08/05/2020 12:59 AM Ordering Physician: Shria Arredondo MD Patient Name: TASHI MOSQUERA MR: [id number] : 1995; Age: 25 years y/o Female Clinical Indication: 19weeks,5 days preg, abd pain Comparison: None FINDINGS: Multiple static images from a limited obstetrical ultrasound including olguin scale and M-mode imaging are submitted for interpretation. The examination was performed primarily to assess presentation, size, and dates. Thefetal structures were not assessed. GENERAL DESCRIPTION Single [...] Not performed Small free pelvic fluid. [facility] NAME: TASHI MOSQUERA Radiology Department PHYS: Natalie Foley MD [address] : 1995 AGE: 25 SEX: F [place], [place] [address] LOC: Anup2624 [address] PHONE #: [phone] EXAM DATE: 08/05/2020 STATUS: ADM IN FAX #: [phone] RAD NO: Page 1 Signed Report (CONTINUED) Patient Name: TASHI MOSQUERA Unit No: [id number] EXAMS: CPT CODE: [id number] US PREG UT TRANSVAGINAL 85261 (Continued) IMPRESSION: Single live intrauterine at 19 weeks 5 days. Trace fluid in the endocervical canal. The structures are not individually characterized on this examination, but no abnormality is appreciated. Small free pelvic fluid. Low-lying posterior grade 1 placenta with tip located 2.7 cm from the internal cervical os. GENERAL OBSERVATIONS REGARDING ULTRASOUND: 1. A normal or negative sonogram report should not delayfurther investigation of a clinically suspicious or abnormal . 2. position or overlapof parts may prevent complete evaluation of the fetus. 3. Congenital and developmental abnormalities are not always sonographically visualized. 4. Repeat sonograms may be necessary depending on the clinical development during . SL: TPAINTER-H . at 0423 Reported and signed by: Arpit Jaffe MD CC: Natalie Garcia MD [facility] gist: Charlotte Kidd RDMS Probe: [id number] Trnscrbd D/ (0423) [email or web address] Orig Print D/T:S: 08/05/2020 (0426) [facility] NAME: TASHI MOSQUERA Radiology Department PHYS: Natalie Foley MD [address] : 1995 AGE: 25 SEX: F [place], [place] [address] LOC: F.2624 A PHONE #: [phone] EXAM DATE: 08/05/2020 STATUS: ADM IN FAX #: [phone] RADNO: Page 2 Signed Report Patient Name: TASHI MOSQUERA Unit No: [id number] EXAMS: CPT CODE: [id number] US PREG UT TRANSVAGINAL 11471 (Continued) [facility] Radiology Department PHYS: Natalie Foley MD [address] : 1995 AGE: 25 SEX: F [place], [place] [address] LOC: F.2624 A PHONE #: [phone] EXAM DATE: 08/05/2020 STATUS: ADM IN FAX#: [phone] RAD NO: Page 3 Signed Report- US [id number] 04:23:00 Patient Name: TASHI MOSQUERA Unit No: [id number] EXAMS: CPT CODE: [id number] US LTD 22271 STUDY: - US LTD, - US PREG UT TRANSVAGINAL 08/05/2020 12:59 AM Ordering Physician: Shira Arredondo MD Patient Name: TASHI MOSQUERA MR: [id number] : 1995; Age: 25 years y/o Female ClinicalIndication: 19weeks,5 days preg, abd pain Comparison: None [...] Not performed Small free pelvic fluid. [facility] NAME: TASHI MOSQUERA Radiology Department PHYS: Shira Truong MD [address] : 1995 AGE: 25 SEX: F [place], [place] [address] LOC: Anup2624 [address] PHONE #: [phone] EXAM DATE: 08/05/2020 STATUS: ADM IN FAX #: [phone] RAD NO: Page 1 Signed Report (CONTINUED) Patient Name: TASHI MOSQUERA Unit No: [id number] EXAMS: CPT CODE: [id number] LTD 88058 (Continued) IMPRESSION: Single live intrauterine at 19 weeks 5 days. Trace fluid in the endocervical canal. The structures are not individually characterized on this examination, but no abnormality is appreciated. Small free pelvic fluid. Low-lyi ng posterior grade 1 placenta with tip located 2.7 cm from the internal cervical os. GENERAL OBSERVATIONS REGARDING ULTRASOUND: 1. A normal or negative sonogram report should not delay further investigation of a clinically suspicious or abnormal . 2. position or overlap of parts may prevent complete evaluation of the fetus. 3. Congenital and developmental abnormalitiesare not always sonographically visualized. 4. Repeat sonograms may be necessary depending on the clinical development during . SL: TPAINTER-H . at 0423 Reported and signed by: Arpit Jaffe MD CC: Shira Arredondo MD Technologist: Charlotte Kidd RDMS Probe: Trnscrbd D/ (0423) Risa.TP6 Orig Print D/T: S: 08/05/2020 (0426) [facility] PHYS: Shira Truong MD [address] : 1995 AGE: 25 SEX: F [place], [place] [address] LOC: Saloni.2624 A PHONE #: [phone] EXAM DATE: 08/05/2020 STATUS: ADM IN FAX #: [phone] RAD NO: Page 2 Signed Report Patient Name: TASHI MOSQUERA Unit No: [id number] EXAMS: CPT CODE: [id number] LTD 87253 (Continued) [facility] PHYS: Shira Truong MD [address] : 1995 AGE: 25 SEX: F [place], [place] [address] LOC: F.2624 A PHONE #: [phone] EXAM DATE: 08/05/2020 STATUS: ADM IN FAX #: [phone] RAD NO: Page 3 Signed Report ARTERIAL BLOOD [id number] 03:03:00 Test Item Value Reference Range Interpretation [...] FIO2 (test code = FIO2A) 21.0 % PaO2/[id number] 03:03:00 Test Item Value Reference Range Interpretation Comments PaO2/FiO2 (test code = BBE3TEV5) mm/Hg [id number] 03:03:00 Test Item Value Reference Range Interpretation Comments GLUCOSE (test code = GLU/ABG) 201 MG/DL 60-110 H ARTERIAL BLOOD [id number] 03:03:00 Test Item Value Reference Range Interpretation [...] FIO2 (test code = FIO2A) 21.0 % PaO2/[id number] 03:03:00 Test Item Value Reference Range Interpretation Comments PaO2/FiO2 (test code = XSV4XMU1) 471.40 mm/Hg [id number] 03:03:00 Test Item Value Reference Range Interpretation Comments GLUCOSE (test code = GLU/ABG) 201 MG/DL 60-110 H COMPREHENSIVE METABOLIC [id number] 02:23:00 Test Item Value Reference Range Interpretation [...] 48 units/L 46-116 N code = ALKP) [id number] 02:23:00 Test Item Value Reference Range Interpretation Comments LIPASE (test code = LIP) 85 units/L 73-393 N ACETONE [id number] 02:23:00 Test Item Value Reference Range Interpretation Comments ACETONE QUAL (test code = ACETNQL) NEGATIVE NEGATIVE BETA [id number] 02:23:00 Test Item Value Reference Range Interpretation Comments BETA HYDROBUTYRATE (test code = BETHYD) COOXIMETRY [id number] 02:14:00 Test Item Value Reference Range Interpretation Comments HEMOGLOBIN (test code = HGB/ABG) 13.0 g/dL 12-16 N HEMATOCRIT (test code = HCT/ABG) 38 % 37-47 N METHEMOGLOBIN (test code = METHGB) 0.6 % 0.0-1.5 N VENOUS BLOOD [id number] 02:14:00 Test Item Value Reference Range Interpretation [...] code = 21.0 % FIO2V) CBC W/AUTO [id number] 02:00:00 Test Item Value Reference Range Interpretation [...] = PLTMR) UA RFLX MICR CULT IF [id number] 01:47:00 Test Item Value Reference Range Interpretation [...] Suprapubic PainSpecimen Description: CLEAN CATCH COMPREHENSIVE METABOLIC [id number] 01:47:00 Test Item Value Reference Range Interpretation [...] 48 units/L 46-116 N code = ALKP) [id number] 01:47:00 Test Item Value Reference Range Interpretation Comments LIPASE (test code = LIP) 85 units/L 73-393 N ACETONE [id number] 01:47:00 Test Item Value Reference Range Interpretation Comments ACETONE QUAL (test code = ACETNQL) NEGATIVE BETA [id number] 01:47:00 Test Item Value Reference Range Interpretation Comments BETA HYDROBUTYRATE (test code = BETHYD) ISLET CELL AB [id number] 14:36:00 Test Item Value Reference Range Interpretation Comments ISLET CELL AB Refer to individual AUTOVERIFICATION (test Islet Cell Ab code = 2556) and/or Islet Cell Ab Titer results. BLOOD [id number] 00:00:00 Test Item Value Reference Range Interpretation Comments CULTURE (BEAKER) (test No growth in 5 days code = 1095) BLOOD [id number] 00:00:00 Test Item Value Reference Range Interpretation Comments CULTURE (BEAKER) (test No growth in 5 days code = 1095) POCT-GLUCOSE [id number] 12:04:00 Test Item Value Reference Range Interpretation Comments POC-GLUCOSE METER 178 mg/dL 70-110 H TESTED AT [place] [address] (BEAKER) (test code = JOHANNY James [facility] 1538) [address] POCT-GLUCOSE [id number] 07:46:00 Test Item Value Reference Range Interpretation Comments POC-GLUCOSE METER 210 mg/dL 70-110 H TEST[facility] AT [place] [address] [facility] (test code = JOHANNY James [facility] 1538) [address] CBC (HEMOGRAM ONLY)2018-08-23 06:39:00 Test Item Value [...] MEAN CORPUSCULAR HEMOGLOBIN CONC 33.1 GM/DL 32.2-35.5 ([facility]) (test code = 752) RED CELL DISTRIBUTION WIDTH 12.9 % 11.7-14.4 ([facility]) (test code = 412) PLATELET COUNT ([facility]) (test 186 K/CU MM 150-450 code = 756) MEAN PLATELET VOLUME ([facility]) 10.6 fL 9.4-12.3 (test code = 754) NUCLEATED RED BLOOD CELLS 0 /100 WBC 0-0 ([facility]) (test code = 413) POCT-GLUCOSE [id number] 22:06:00 Test Item Value Reference Range Interpretation Comments POC-GLUCOSE METER 157 mg/dL 70-110 H TESTED AT [place] [address] ([facility]) (test code = CANDIDAMIKAEL James [facility] 1538) [address] POCT-GLUCOSE [id number] 17:54:00 Test Item Value Reference Range Interpretation Comments POC-GLUCOSE METER 223 mg/dL 70-110 H TESTED AT [place] [address] ([facility]) (test code = JOHANNY James [facility] 1538) [address] POCT-GLUCOSE [id number] 12:06:00 Test Item Value Reference Range Interpretation Comments POC-GLUCOSE METER 227 mg/dL 70-110 H TESTED AT [place] [address] ([facility]) (test code = CANDIDAMIKAEL James [facility] 1538) [address] POCT-GLUCOSE [id number] 07:46:00 Test Item Value Reference Range Interpretation Comments POC-GLUCOSE METER 237 mg/dL 70-110 H TESTED AT [place] [address] ([facility]) (test code = JOHANNY James [facility] 1538) [address] CBC (HEMOGRAM ONLY)2018-08-22 07:12:00 Test Item Value Reference Range Interpretation Comments WHITE BLOOD CELL COUNT ([facility]) 6.1 K/ L 3.5-10.5 (test code = 775) RED BLOOD CELL COUNT ([facility]) 4.62 M/ L 3.93-5.22 (test code = 761) HEMOGLOBIN ([facility]) (test code = 14.1 GM/DL 11.2-15.7 410) HEMATOCRIT ([facility]) (test code = 41.9 % 34.1-44.9 411) MEAN CORPUSCULAR VOLUME ([facility]) 90.7 fL 79.4-94.8 (test code = 753) MEAN CORPUSCULAR HEMOGLOBIN 30.5 pg 25.6-32.2 (AKER) (test code = 751) MEAN CORPUSCULAR HEMOGLOBIN CONC 33.7 GM/DL 32.2-35.5 ([facility]) (test code = 752) RED CELL DISTRIBUTION WIDTH 13.5 % 11.7-14.4 ([facility]) (test code = 412) PLATELET COUNT ([facility]) (test 220 K/CU MM 150-450 code = 756) MEAN PLATELET VOLUME ([facility]) 10.6 fL 9.4-12.3 (test code = 754) NUCLEATED RED BLOOD CELLS 0 /100 WBC 0-0 ([facility]) (test code = 413) POCT-GLUCOSE [id number] 21:37:00 Test Item Value Reference Range Interpretation Comments POC-GLUCOSE METER 264 mg/dL 70-110 H TESTED AT [place] [address] ([facility]) (test code = JOHANNY James [facility] 1538) [address] POCT-GLUCOSE [id number] 17:52:00 Test Item Value Reference Range Interpretation Comments POC-GLUCOSE METER 273 mg/dL 70-110 H TESTED AT [place] [address] ([facility]) (test code = JOHANNY James [facility] 1538) [address] POCT-GLUCOSE [id number] 11:57:00 Test Item Value Reference Range Interpretation Comments POC-GLUCOSE METER 316 mg/dL 70-110 H Notified R Rubén JOHANSEN/TESTED ([facility]) (test code = AT [address] 1538) [facility] [address] POCT-GLUCOSE [id number] 07:58:00 Test Item Value Reference Range Interpretation Comments POC-GLUCOSE METER 246 mg/dL 70-110 H TESTED AT [place] [address] ([facility]) (test code = JOHANNY James [facility] 1538) [address] [id number] 07:27:00 Test Item Value Reference Range Interpretation Comments PHOSPHORUS (BEAKER) (test code = 3.3 mg/dL 2.3-4.7 604) [id number] 07:27:00 Test Item Value Reference Range Interpretation Comments [facility]NESIUM ([facility] (test code = 2.1 mg/dL 1.6-2.6 627) COMPREHENSIVE METABOLIC [id number] 07:27:00 Test Item Value Reference Range Interpretation [...] NOT APPLICABLE FOR DIALYSIS PATIEN TS. CALCIUM, [id number] 07:03:00 Test Item Value Reference Range Interpretation Comments CALCIUM IONIZED (BEAKER) (test 1.12 mmol/L 1.12-1.27 code = 698) PH, BLOOD (BEAKER) (test code = 7.46 1810) CBC W/PLT COUNT & AUTO [id number] 06:38:00 Test Item Value Reference Range Interpretation [...] PERCENT (BEAKER) (test code = 2801) POCT-GLUCOSE [id number] 22:26:00 Test Item Value Reference Range Interpretation Comments POC-GLUCOSE METER 325 mg/dL 70-110 H Notified R Rubén JOHANSEN/TESTED (BEAKER) (test code = AT [facility] [address] [facility] 1538) [facility] 7[address] 0 POCT-GLUCOSE [id number] 21:46:00 Test Item Value Reference Range Interpretation Comments POC-GLUCOSE METER 312 mg/dL 70-110 H TESTED AT [facility] 6720 (BEAKER) (test code = JOHANNY James [facility] 1538) [address] BASIC METABOLIC [id number] 21:39:00 Test Item Value Reference Range Interpretation [...] S NOT APPLICABLE FOR DIALYSIS PATIEN TS. [id number] 19:06:00 Test Item Value Reference Range Interpretation Comments PHOSPHORUS (BEAKER) (test code = 3.3 mg/dL 2.3-4.7 604) [id number] 19:06:00 Test Item Value Reference Range Interpretation Comments MAGNESIUM (BEAKER) (test code = 2.2 mg/dL 1.6-2.6 627) [id number] 17:17:00 Test Item Value Reference Range Interpretation Comments PHOSPHORUS (BEAKER) (test code = 3.3 mg/dL 2.3-4.7 604) [id number] 17:17:00 Test Item Value Reference Range Interpretation Comments MAGNESIUM (BEAKER) (test code = 2.3 mg/dL 1.6-2.6 627) BASIC METABOLIC [id number] 17:17:00 Test Item Value Reference Range Interpretation [...] NOT APPLICABLE FOR DIALYSIS PATIEN TS. POCT-GLUCOSE [id number] 17:15:00 Test Item Value Reference Range Interpretation Comments POC-GLUCOSE METER 86 mg/dL 70-110 TESTED AT [place] [address] ([facility] (test code = [facility] Erika [facility] [address] 1538) POCT-GLUCOSE [id number] 15:29:00 Test Item Value Reference Range Interpretation Comments POC-GLUCOSE METER 176 mg/dL 70-110 H TESTED AT [place] [address] ([facility] (test code = [facility] 1538) [address] POCT-GLUCOSE [id number] 14:05:00 Test Item Value Reference Range Interpretation Comments POC-GLUCOSE METER 198 mg/dL 70-110 H TESTED AT [facility] 67[address] ([facility] (test code = [facility] 1538) [address] POCT-GLUCOSE [id number] 13:02:00 Test Item Value Reference Range Interpretation Comments POC-GLUCOSE METER 148 mg/dL 70-110 H TESTED AT [facility] 6720 (BEAKER) (test code = JOHANNY James [place] 1538) [address] POCT-GLUCOSE [id number] 12:23:00 Test Item Value Reference Range Interpretation Comments POC-GLUCOSE METER 170 mg/dL 70-110 H TESTED AT [facility] 6720 (BEAKER) (test code = JOHANNY James [place] 1538) [address] [id number] 11:33:00 Test Item Value Reference Range Interpretation Comments PHOSPHORUS (BEAKER) (test code = 3.1 mg/dL 2.3-4.7 604) [id number] 11:33:00 Test Item Value Reference Range Interpretation Comments MAGNESIUM (BEAKER) (test code = 1.8 mg/dL 1.6-2.6 627) BASIC METABOLIC [id number] 11:33:00 Test Item Value Reference Range Interpretation [...] NOT APPLICABLE FOR DIALYSIS PATIEN TS. KETONE, [id number] 11:26:00 Test Item Value Reference Range Interpretation Comments KETONES, BLOOD (BEAKER) (test code 1.4 mmol/L <0.4 H = 1103) POCT-GLUCOSE [id number] 11:05:00 Test Item Value Reference Range Interpretation Comments POC-GLUCOSE METER 206 mg/dL 70-110 H TESTED AT [place] [address] (BEAKER) (test code = JOHANNY James [place] 1538) [address] POCT-GLUCOSE [id number] 10:15:00 Test Item Value Reference Range Interpretation Comments POC-GLUCOSE METER 245 mg/dL 70-110 H TESTED AT [place] [address] (BEAKER) (test code = JOHANNY James [place] 1538) [address] POCT-GLUCOSE [id number] 09:02:00 Test Item Value Reference Range Interpretation Comments POC-GLUCOSE METER 205 mg/dL 70-110 H TESTED AT [place] [address] ([facility] (test code = JOHANNY James [place] 1538) [address] POCT-GLUCOSE [id number] 07:54:00 Test Item Value Reference Range Interpretation Comments POC-GLUCOSE METER 206 mg/dL 70-110 H TESTED AT [place] [address] ([facility] (test code = JOHANNY James [facility] 1538) [address] POCT-GLUCOSE [id number] 07:54:00 Test Item Value Reference Range Interpretation Comments POC-GLUCOSE METER 217 mg/dL 70-110 H TESTED AT [place] [address] ([facility] (test code = JOHANNY James [facility] 1538) [address] KETONE, [id number] 07:25:00 Test Item Value Reference Range Interpretation Comments KETONES, BLOOD (BEAKER) (test code 4.3 mmol/L <0.4 H = 1103) [id number] 07:00:00 Test Item Value Reference Range Interpretation Comments PHOSPHORUS (BEAKER) (test code = 2.5 mg/dL 2.3-4.7 604) [id number] 07:00:00 Test Item Value Reference Range Interpretation Comments MAGNESIUM (BEAKER) (test code = 2.0 mg/dL 1.6-2.6 627) BASIC METABOLIC [id number] 07:00:00 Test Item Value Reference Range Interpretation Comments SODIUM (BEAKER) 148 meq/L 136-145 H (test code = 381) POTASSIUM (BEAKER) 3.5 meq/L 3.5-5.1 (test code = 379) CHLORIDE (BEAKER) 119 meq/L 98-107 H (test code = 382) CO2 (BEAKER) (test 18 meq/L 22-29 L code = 355) BLOOD UREA NITROGEN 7 mg/dL 7-21 ([facility]) (test code = 354) CREATININE ([facility]) 0.79 mg/dL 0.57-1.25 (test code = 358) GLUCOSE RANDOM 208 mg/dL 70-105 H ([facility]) (test code = 652) CALCIUM ([facility]) 8.9 mg/dL 8.4-10.2 (test code = 697) EGFR ([facility]) (test 89 mL/min/1.73 ESTIMA OLGA GFR IS code = 1092) sq m NOT ACCURATE CREATININE CLEARANCE IN PREDICTING GLOMERULAR FILTRATION RATE . ESTIMATED GFR I S NOT APPLICABLE FOR DIALYSIS PATIEN TS. POCT-GLUCOSE [id number] 06:13:00 Test Item Value Reference Range Interpretation Comments POC-GLUCOSE METER 223 mg/dL 70-110 H TESTED AT [place] [address] ([facility]) (test code = [facility] 1538) [address] POCT-GLUCOSE [id number] 05:20:00 Test Item Value Reference Range Interpretation Comments POC-GLUCOSE METER 224 mg/dL 70-110 H TESTED AT [place] [address] ([facility]) (test code = [facility] 1538) [address] POCT-GLUCOSE [id number] 04:08:00 Test Item Value Reference Range Interpretation Comments POC-GLUCOSE METER 165 mg/dL 70-110 H TESTED AT [place] [address] ([facility]) (test code = [facility] 1538) [address] POCT-GLUCOSE [id number] 03:25:00 Test Item Value Reference Range Interpretation Comments POC-GLUCOSE METER 130 mg/dL 70-110 H TESTED AT [place] [address] ([facility]) (test code = [facility] 1538) [address] [id number] 02:50:00 Test Item Value Reference Range Interpretation Comments PROCALCITONIN ([facility]) (test code 2.96 ng/mL <0.05 H = 3036) SEPSIS RISK (ng/mL)Low: 0.05-0.50Intermediate: 0.51-2.00High: >=2.01KETONE, [id number] 02:15:00 Test Item Value Reference Range Interpretation Comments KETONES, BLOOD (BEAKER) (test code 3.1 mmol/L <0.4 H = 1103) POCT-GLUCOSE [id number] 02:13:00 Test Item Value Reference Range Interpretation Comments POC-GLUCOSE METER 153 mg/dL 70-110 H TESTED AT [facility] 6720 (BEAKER) (test code = J[place]ANNY [place] 1538) [address] [id number] 02:01:00 Test Item Value Reference Range Interpretation Comments PHOSPHORUS (BEAKER) (test code = 2.4 mg/dL 2.3-4.7 604) [id number] 02:01:00 Test Item Value Reference Range Interpretation Comments MAGNESIUM (BEAKER) (test code = 2.1 mg/dL 1.6-2.6 627) BASIC METABOLIC [id number] 02:01:00 Test Item Value Reference Range Interpretation [...] S NOT APPLICABLE FOR DIALYSIS PATIEN TS. [id number] 02:01:00 Test Item Value Reference Range Interpretation Comments AMYLASE (BEAKER) (test code = 349) 129 U/L 25-125 H [id number] 02:01:00 Test Item Value Reference Range Interpretation [...] 0-0 (BEAKER) (test code = 413) POCT-GLUCOSE [id number] 01:05:00 Test Item Value Reference Range Interpretation Comments POC-GLUCOSE METER 171 mg/dL 70-110 H TESTED AT [place] [address] ([facility]) (test code = JOHANNY James [facility] 1538) [address] POCT-GLUCOSE [id number] 00:32:00 Test Item Value Reference Range Interpretation Comments POC-GLUCOSE METER 171 mg/dL 70-110 H TESTED AT [place] [address] ([facility]) (test code = JOHANNY James [facility] 1538) [address] POCT-GLUCOSE [id number] 23:15:00 Test Item Value Reference Range Interpretation Comments POC-GLUCOSE METER 177 mg/dL 70-110 H TESTED AT [place] [address] ([facility]) (test code = JOHANNY James [facility] 1538) [address] POCT-GLUCOSE [id number] 22:16:00 Test Item Value Reference Range Interpretation Comments POC-GLUCOSE METER 170 mg/dL 70-110 H TESTED AT [facility] 6720 (BEAKER) (test code = JOHANNY James [place] 1538) [address] POCT-GLUCOSE [id number] 22:16:00 Test Item Value Reference Range Interpretation Comments POC-GLUCOSE METER 191 mg/dL 70-110 H TESTED AT [facility] 6720 (BEAKER) (test code = JOHANNY James [place] 1538) [address] KETONE, [id number] 20:49:00 Test Item Value Reference Range Interpretation Comments KETONES, BLOOD (BEAKER) (test code 3.2 mmol/L <0.4 H = 1103) [id number] 20:46:00 Test Item Value Reference Range Interpretation Comments PHOSPHORUS (BEAKER) (test code = 2.2 mg/dL 2.3-4.7 L 604) [id number] 20:46:00 Test Item Value Reference Range Interpretation Comments MAGNESIUM (BEAKER) (test code = 2.2 mg/dL 1.6-2.6 627) BASIC METABOLIC [id number] 20:46:00 Test Item Value Reference Range Interpretation [...] APPLICABLE FOR DIALYSIS PATIEN TS. BLOOD GAS, [id number] 20:29:00 Test Item Value Reference Range Interpretation [...] (test code = 1819) 21.0 % POCT-GLUCOSE [id number] 20:09:00 Test Item Value Reference Range Interpretation Comments POC-GLUCOSE METER 219 mg/dL 70-110 H TESTED AT [facility] 67[address] ([facility] (test code = JOHANNY James [facility] 1538) [address] POCT-GLUCOSE [id number] 18:58:00 Test Item Value Reference Range Interpretation Comments POC-GLUCOSE METER 248 mg/dL 70-110 H TESTED AT [facility] 6720 ([facility]) (test code = 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 Signed: Arpit Smith MDReport Verified Date/Time: 08/19/2018 18:36:40 Reading Location: [facility] Reading RoomAddendum EndsFINAL REPORT CTA brain 08/19/2018 [...] Verified Date/Time: 08/19/2018 13:33:21 Reading Locati on: [facility] Radiology Reading Room RAD, MANDIBLE, LESS THAN 4 [id number] 18:35:00Reason for exam:->dysarthria, fallFINAL REPORT Mandible 6 [...] Smith Verified Date/Time: 08/19/2018 18:35:55 Reading Location: [facility] Radiology Reading Room POCT-GLUCOSE [id number] 18:22:00 Test Item Value Reference Range Interpretation Comments POC-GLUCOSE METER 222 mg/dL 70-110 H TESTED AT [facility] 6720 (BEAKER) (test code = J[place]ANNY [place] 1538) [address] POCT-GLUCOSE [id number] 16:58:00 Test Item Value Reference Range Interpretation Comments POC-GLUCOSE METER 277 mg/dL 70-110 H TESTED AT [facility] 6720 (BEAKER) (test code = [place]ANNY [place] 1538) [address] [id number] 16:12:00 Test Item Value Reference Range Interpretation Comments PHOSPHORUS (BEAKER) (test code = 2.9 mg/dL 2.3-4.7 604) [id number] 16:12:00 Test Item Value Reference Range Interpretation Comments MAGNESIUM (BEAKER) (test code = 1.7 mg/dL 1.6-2.6 627) BASIC METABOLIC [id number] 16:12:00 Test Item Value Reference Range Interpretation [...] NOT APPLICABLE FOR DIALYSIS PATIEN TS. KETONE, [id number] 15:46:00 Test Item Value Reference Range Interpretation Comments KETONES, BLOOD (BEAKER) (test code 6.0 mmol/L <0.4 H = 1103) POCT-GLUCOSE [id number] 15:18:00 Test Item Value Reference Range Interpretation Comments POC-GLUCOSE METER 322 mg/dL 70-110 H Will Repea t Test/TESTED (BEAKER) (test code = AT [facility] [address] [place] 1538) [place] [address] POCT-GLUCOSE [id number] 14:27:00 Test Item Value Reference Range Interpretation Comments POC-GLUCOSE METER 232 mg/dL 70-110 H TESTED AT [facility] 67[address] ([facility] (test code = JOHANNY James [place] 1538) [address] POCT-GLUCOSE [id number] 13:05:00 Test Item Value Reference Range Interpretation Comments POC-GLUCOSE METER 240 mg/dL 70-110 H TESTED AT [facility] 6720 (BEAKER) (test code = JOHANNY James [facility] 1538) [id number] POCT-GLUCOSE [id number] 12:16:00 Test Item Value Reference Range Interpretation Comments POC-GLUCOSE METER 201 mg/dL 70-110 H TESTED AT [facility] 6720 (BEAKER) (test code = JOHANNY James [facility] 1538) [id number] CT, [id number] 11:46:00FINAL REPORT INDICATION:23-year-old female with abdominal pain. [...] No evidence of pancreatitis. Signed: Mally Yoo [facility] Verified Date/Time: 08/19/2018 11:46:24 Reading Location: [facility] Diagnostic Imaging Reading Room - [place] [address] BASIC METABOLIC PANEL 2018-08-19 11:17:00 Test Item [...] S NOT APPLICABLE FOR DIALYSIS PATIEN TS. [id number] 11:12:00 Test Item Value Reference Range Interpretation Comments PHOSPHORUS (BEAKER) (test code = 3.8 mg/dL 2.3-4.7 604) POCT-GLUCOSE [id number] 10:49:00 Test Item Value Reference Range Interpretation Comments POC-GLUCOSE METER 172 mg/dL 70-110 H TESTED AT [facility] 6720 (BEAKER) (test code = [place]ANNY [place] 1538) [address] KETONE, [id number] 10:37:00 Test Item Value Reference Range Interpretation Comments KETONES, BLOOD (BEAKER) (test code 4.2 mmol/L <0.4 H = 1103) HEMOGLOBIN [id number] 10:29:00 Test Item Value Reference Range Interpretation Comments HEMOGLOBIN A1C (BEAKER) (test code = 15.3 % 4.3-6.1 H 368) BLOOD GAS, [id number] 10:23:00 Test Item Value Reference Range Interpretation [...] (test code = 1819) 21.0 % POCT-GLUCOSE [id number] 10:02:00 Test Item Value Reference Range Interpretation Comments POC-GLUCOSE METER 145 mg/dL 70-110 H TESTED AT [facility] 6720 (BEAKER) (test code = J[place]ANNY James [place] 1538) [id number] POCT-GLUCOSE [id number] 09:04:00 Test Item Value Reference Range Interpretation Comments POC-GLUCOSE METER 168 mg/dL 70-110 H TESTED AT [facility] 6720 (BEAKER) (test code = J[place]ANNY James [place] 1538) [id number] POCT-GLUCOSE [id number] 07:47:00 Test Item Value Reference Range Interpretation Comments POC-GLUCOSE METER 187 mg/dL 70-110 H TESTED AT [facility] 6720 (BEAKER) (test code = [facility] [place] 1538) [address] BLOOD GAS, [id number] 07:14:00 Test Item Value Reference Range Interpretation [...] code = 1819) 21.0 % BASIC METABOLIC [id number] 07:13:00 Test Item Value Reference Range Interpretation Comments SODIUM (BEAKER) 157 meq/L 136-145 H (test code = 381) POTASSIUM (BEAKER) 3.2 meq/L 3.5-5.1 L (test code = 379) CHLORIDE (BEAKER) 126 meq/L 98-107 H (test code = 382) CO2 (BEAKER) (test 17 meq/L 22-29 L code = 355) BLOOD UREA NITROGEN 11 mg/dL 7-21 ([facility]) (test code = 354) CREATININE (BEAKER) 1.12 mg/dL 0.57-1.25 (test code = 358) GLUCOSE RANDOM 180 mg/dL 70-105 H ([facility]) (test code = 652) CALCIUM (BEAKER) 9.1 mg/dL 8.4-10.2 (test code = 697) EGFR ([facility]) (test 60 mL/min/1.73 ESTIMA OLGA GFR IS code = 1092) sq m NOT ACCURATE CREATININE CLEARANCE IN PREDICTING GLOMERULAR FILTRATION RATE . ESTIMATED GFR I S NOT APPLICABLE FOR DIALYSIS PATIEN TS. [id number] 07:11:00 Test Item Value Reference Range Interpretation Comments MAGNESIUM ([facility]) (test code = 2.0 mg/dL 1.6-2.6 627) POCT-GLUCOSE [id number] 07:09:00 Test Item Value Reference Range Interpretation Comments POC-GLUCOSE METER 183 mg/dL 70-110 H TESTED AT [place] [address] ([facility]) (test code = [facility] 1538) [address] POCT-GLUCOSE [id number] 06:19:00 Test Item Value Reference Range Interpretation Comments POC-GLUCOSE METER 185 mg/dL 70-110 H TESTED AT [place] [address] ([facility]) (test code = [facility] 1538) [address] POCT-GLUCOSE [id number] 05:05:00 Test Item Value Reference Range Interpretation Comments POC-GLUCOSE METER 223 mg/dL 70-110 H TESTED AT [place] [address] ([facility]) (test code = [facility] 1538) [address] POCT-GLUCOSE [id number] 04:17:00 Test Item Value Reference Range Interpretation Comments POC-GLUCOSE METER 235 mg/dL 70-110 H TESTED AT [place] [address] ([facility]) (test code = [facility] 1538) [address] [id number] 04:07:00 Test Item Value Reference Range Interpretation Comments PROCALCITONIN ([facility]) (test code 6.19 ng/mL <0.05 H = 3036) SEPSIS RISK (ng/mL)Low: 0.05-0.50Intermediate: 0.51-2.00High: >=2.01 [id number] 04:03:00 Test Item Value Reference Range Interpretation Comments PHOSPHORUS (BEAKER) (test code = 1.4 mg/dL 2.3-4.7 LL 604) BASIC METABOLIC [id number] 04:00:00 Test Item Value Reference Range Interpretation [...] APPLICABLE FOR DIALYSIS PATIEN TS. BASIC METABOLIC [id number] 04:00:00 Test Item Value Reference Range Interpretation [...] APPLICABLE FOR DIALYSIS PATIEN TS. BLOOD GAS, [id number] 03:52:00 Test Item Value Reference Range Interpretation [...] 70 pg/mL 0-100 (test code = 700) [id number] 03:43:00 Test Item Value Reference Range Interpretation Comments MAGNESIUM (BEAKER) (test code = 2.1 mg/dL 1.6-2.6 627) [id number] 03:43:00 Test Item Value Reference Range Interpretation Comments AMYLASE (BEAKER) (test code = 349) 566 U/L 25-125 H [id number] 03:43:00 Test Item Value Reference Range Interpretation Comments LIPASE (BEAKER) (test code = 749) 124 U/L 8-78 H C-REACTIVE [id number] 03:43:00 Test Item Value Reference Range Interpretation Comments C-REACTIVE PROTEIN (BEAKER) (test 5.56 mg/dL 0.00-0.50 H code = 676) KETONE, [id number] 03:23:00 Test Item Value Reference Range Interpretation [...] 0-0 (BEAKER) (test code = 413) POCT-GLUCOSE [id number] 03:17:00 Test Item Value Reference Range Interpretation Comments POC-GLUCOSE METER 251 mg/dL 70-110 H TESTED AT [place] [address] ([facility]) (test code = JOHANNY [place] 1538) [address] OSMOLALITY, [id number] 02:24:00 Test Item Value Reference Range Interpretation Comments OSMOLALITY URINE (BEAKER) (test 599 mOsm/kg 40-1400 code = 614) POCT-GLUCOSE [id number] 02:16:00 Test Item Value Reference Range Interpretation Comments POC-GLUCOSE METER 288 mg/dL 70-110 H TESTED AT [place] [address] ([facility]) (test code = [place] 1538) [address] KETONE, [id number] 01:49:00 Test Item Value Reference Range Interpretation Comments KETONES, BLOOD (BEAKER) (test code 6.1 mmol/L <0.4 H = 1103) POCT-GLUCOSE [id number] 01:13:00 Test Item Value Reference Range Interpretation Comments POC-GLUCOSE METER 254 mg/dL 70-110 H TESTED AT [place] [address] (BEAKER) (test code = [facility] [place] 1538) [address] BLOOD GAS, [id number] 01:10:00 Test Item Value Reference Range Interpretation [...] (test code = 1819) 21.0 % POCT-GLUCOSE [id number] 00:05:00 Test Item Value Reference Range Interpretation Comments POC-GLUCOSE METER 288 mg/dL 70-110 H TESTED AT [place] [address] (BEAKER) (test code = [facility] [place] 1538) [address] BASIC METABOLIC [id number] 23:16:00 Test Item Value Reference Range Interpretation [...] NOT APPLICABLE FOR DIALYSIS PATIEN TS. OSMOLALITY, [id number] 23:03:00 Test Item Value Reference Range Interpretation Comments OSMOLALITY, SERUM (BEAKER) (test 342 mOsm/kg 275-295 H code = 615) [id number] 23:02:00 Test Item Value Reference Range Interpretation Comments PHOSPHORUS (BEAKER) (test code = 1.1 mg/dL 2.3-4.7 LL 604) [id number] 23:00:00 Test Item Value Reference Range Interpretation Comments MAGNESIUM (BEAKER) (test code = 2.1 mg/dL 1.6-2.6 627) CALCIUM, [id number] 22:47:00 Test Item Value Reference Range Interpretation [...] (BEAKER) (test code = 413) BLOOD GAS, [id number] 22:46:00 Test Item Value Reference Range Interpretation [...] (test code = 1819) 21.0 % KETONE, [id number] 22:46:00 Test Item Value Reference Range Interpretation Comments KETONES, BLOOD (BEAKER) (test code 5.6 mmol/L <0.4 H = 1103) RAD, CHEST, 1 VIEW, NON [id number] 22:44:00Reason for exam:->central line Should this be [...] Unremarkable. Additional findings: None. Signed:JR [place] Robert MDRhospital for special care Verified Date/Time: 08/18/2018 22:44:52 Reading Location: [address] Reading Room POCT-GLUCOSE [id number] 22:34:00 Test Item Value Reference Range Interpretation Comments POC-GLUCOSE METER 259 mg/dL 70-110 H TESTED AT [facility] 6720 (BEAKER) (test code = [place] 1538) [address] CHLORIDE, RANDOM [id number] 22:28:00 Test Item Value Reference Range Interpretation Comments CHLORIDE URINE (BEAKER) (test code = 88 meq/L 682) Reference Range: No NormalsCREATININE, RANDOM [id number] 22:28:00 Test Item Value Reference Range Interpretation Comments CREATININE URINE (BEAKER) (test 12.5 mg/dL code = 375) Reference Range: No NormalsSODIUM, RANDOM [id number] 22:28:00 Test Item Value Reference Range Interpretation Comments SODIUM URINE (BEAKER) (test code = 143 meq/L 243) Reference Range: No NormalsUREA NITROGEN, RANDOM [id number] 22:28:00 Test Item Value Reference Range Interpretation Comments UREA NITROGEN URINE (BEAKER) (test 154 mg/dL code = 538) Reference Range: No NormalsOSMOLALITY, [id number] 21:53:00 Test Item Value Reference Range Interpretation Comments OSMOLALITY URINE (BEAKER) (test 546 mOsm/kg 40-1400 code = 614) BASIC METABOLIC [id number] 21:07:00 Test Item Value Reference Range Interpretation [...] S NOT APPLICABLE FOR DIALYSIS PATIEN TS. [id number] 21:07:00 Test Item Value Reference Range Interpretation Comments PHOSPHORUS (BEAKER) < mg/dL 2.3-4.7 LL Specimen slightly (test code = 604) hemolyzed POCT-GLUCOSE [id number] 21:06:00 Test Item Value Reference Range Interpretation Comments POC-GLUCOSE METER 381 mg/dL 70-110 H TESTED AT [place] [address] ([facility]) (test code = [facility] 1538) [address] POCT-GLUCOSE [id number] 21:06:00 Test Item Value Reference Range Interpretation Comments POC-GLUCOSE METER 437 mg/dL 70-110 HH TESTED AT [place] [address] ([facility]) (test code = [facility] 1538) [address] [id number] 21:05:00 Test Item Value Reference Range Interpretation Comments LIPASE (BEAKER) (test code = 749) 138 U/L 8-78 H [id number] 21:05:00 Test Item Value Reference Range Interpretation Comments AMYLASE (BEAKER) (test code = 349) 669 U/L 25-125 H [id number] 21:04:00 Test Item Value Reference Range Interpretation [...] is 2.5-3.5 for patients with mechanical heart valves.[id number] 21:04:00 Test Item Value Reference Range Interpretation Comments MAGNESIUM (BEAKER) 2.2 mg/dL 1.6-2.6 Specimen slightly (test code = 627) hemolyzed BLOOD GAS, [id number] 21:00:00 Test Item Value Reference Range Interpretation [...] (test code = 1819) 21.0 % HEMOGLOBIN [id number] 21:00:00 Test Item Value Reference Range Interpretation Comments HEMOGLOBIN A1C (BEAKER) (test code = 15.7 % 4.3-6.1 H 368) CT BRAIN WITHOUT IV CONTRAST - [id number] 20:04:00Reason for exam:- >r/o bleedFINAL REPORT CT [...] intracranial hemorrhage or mass effect. Signed: Arpit Smithort Verified Date/Time: 08/18/2018 20:04:50 Reading Lo cation: YO [facility] Reading Room POCT-GLUCOSE [id number] 19:21:00 Test Item Value Reference Range Interpretation Comments POC-GLUCOSE METER 425 mg/dL 70-110 HH TESTED AT [facility] 6720 (BEAKER) (test code = [place] 1538) [address] [id number] 18:52:00 Test Item Value Reference Range Interpretation Comments PHOSPHORUS (BEAKER) (test code = 604) < mg/dL 2.3-4.7 LL If last glucose was less than 500, may do bedside glucose instead of serum glucose.RAPID DRUG SCREEN, [id number] 18:52:00 Test Item Value Reference Range Interpretation [...] situations. Chain of custody not maintained. Some yvvz-xqo-knboxvi medications, as well as adulterants, may cause inaccurate results. Clinical correlation should be applied. Estella comprehensive drug screen or confirmation of a detected drug may be performed upon request.BASIC METABOLIC [id number] 18:51:00 Test Item Value Reference Range Interpretation [...] may do bedside glucose instead of serum glucose.[id number] 18:48:00 Test Item Value Reference Range Interpretation Comments MAGNESIUM (BEAKER) (test code = 2.1 mg/dL 1.6-2.6 627) If last glucose was less than 500, may do bedside glucose instead of serum glucose.KETONE, [id number] 18:45:00 Test Item Value Reference Range Interpretation Comments KETONES, BLOOD (BEAKER) (test code 5.2 mmol/L <0.4 H = 1103) [id number] 18:43:00 Test Item Value Reference Range Interpretation [...] 514) SOURCE(BEAKER) (test code = 2795) SCREEN, [id number] 18:35:00 Test Item Value Reference Range Interpretation Comments TEST URINE (BEAKER) (test Negative code = 583) BLOOD GAS, [id number] 18:32:00 Test Item Value Reference Range Interpretation [...] (BEAKER) (test code = 1819) 21.0 % [id number] 18:16:00 Test Item Value Reference Range Interpretation Comments FIBRINOGEN LEVEL 331 mg/dl 225-434 Sample clot olga, ([facility]) (test code = notifi ed RN badge 658) #[id number] for recollect. [id number] 18:16:00 Test Item Value Reference Range Interpretation Comments D-DIMER QUANTITATIVE 0.64 MG/L FEU <0.50 H Sample is clotted, (BEAKER) (test code = notifi ed RN badge 671) #[id number] for recollect.This is a corrected result. Previou [...] of thrombosis is within 95-100% range.POCT- GLUCOSE [id number] 18:05:00 Test Item Value Reference Range Interpretation Comments POC-GLUCOSE METER > mg/dL 70-110 HH OUTSIDE CO ASURING (BEAKER) (test code RANGETES OLGA AT [facility] 6720 = 1538) [facility] [address] [id number] 18:01:00 Test Item Value Reference Range Interpretation Comments PROCALCITONIN (BEAKER) (test code 3.19 ng/mL <0.05 H = 3036) SEPSIS RISK (ng/mL)Low: 0.05-0.50Intermediate: 0.51-2.00High: >=2.01CREATINE KINASE (CK), TOTAL AND [id number] 17:50:00 Test Item Value Reference Range Interpretation Comments CREATINE KINASE TOTAL (BEAKER) 54 U/L 29-200 (test code = 380) CREATINE KINASE-MB (BEAKER) (test 1.6 ng/mL 0.0-6.6 code = 750) CREATINE KINASE-MB INDEX (BEAKER) 3.0 % (test code = 395) CK-MB Reference Range:<6.7 Normal6.7-10.0 Borderline>10.0 AbnormalTROPONIN [id number] 17:50:00 Test Item Value Reference Range Interpretation [...] 0-100 (test code = 700) COMPREHENSIVE METABOLIC [id number] 17:48:00 Test Item Value Reference Range Interpretation [...] S NOT APPLICABLE FOR DIALYSIS PATIEN TS. [id number] 17:47:00 Test Item Value Reference Range Interpretation Comments LIPASE (BEAKER) (test code = 749) 329 U/L 8-78 H [id number] 17:47:00 Test Item Value Reference Range Interpretation Comments AMYLASE (BEAKER) (test code = 349) 563 U/L 25-125 H LACTATE DEHYDROGENASE ([facility])2018-08-18 17:47:00 Test Item Value Reference Range Interpretation Comments LACTATE DEHYDROGENASE (BEAKER) (test 255 U/L 125-220 H code = 635) C-REACTIVE [id number] 17:47:00 Test Item Value Reference Range Interpretation Comments C-REACTIVE PROTEIN (BEAKER) (test 1.35 mg/dL 0.00-0.50 H code = 676) LACTIC ACID, VENOUS, WHOLE [id number] 17:41:00 Test Item Value Reference Range Interpretation Comments LACTATE BLOOD VENOUS 2.0 mmol/L 0.5-2.2 Specime n markedly (2) (BEAKER) (test hemolyzed code = 2872) Effective 03/06/2016: Units/Reference Range ChangeNew: 0.5-2.2 mmol/L Previous: 5- 20 mg/dLPOCT-LACTIC ACID, [id number] 17:13:00 Test Item Value Reference Range Interpretation Comments POC-LACTIC ACID, 1.9 mmol/L 0.4-1.3 H TESTED AT [facility] 6720 ARTERIAL (BEAKER) [place] (test code = 2804) [address] POCT-BLOOD GASES, [id number] 17:13:00 Test Item Value Reference Range Interpretation Comments TEMP, CELSIUS-POC 37.0 (BEAKER) (test code = 1834) FIO2-POC (BEAKER) TESTED AT [place] [address] (test code = 1835) [facility] [place] [address] PH, ARTERIAL-POC 7.069 7.350-7.450 LL (BEAKER) (test [...] L ARTERIAL-POC (BEAKER) (test code = 1841) [id number] 17:13:00 Test Item Value Reference Range Interpretation Comments POC-SODIUM (BEAKER) 150 meq/L 135-148 H TESTED A T [place] [address] (test code = 1542) [facility] [address] [id number] 17:13:00 Test Item Value Reference Range Interpretation Comments POC-POTASSIUM 2.4 meq/L 3.6-5.5 LL TESTED AT [place] [address] (BEAKER) (test code [facility] [address] = 1540) [id number] 17:13:00 Test Item Value Reference Range Interpretation Comments POC-GLUCOSE (BEAKER) 685 mg/dL 70-110 HH TESTED AT [place] [address] (test code = 1855) [facility] [address] POCT-CALCIUM [id number] 17:13:00 Test Item Value Reference Range Interpretation Comments POC-CALCIUM IONIZED 1.24 mmol/L 1.12-1.27 TESTED [place] [address] (BEAKER) (test code = [facility] E[place] 1536) [address] [id number] 17:13:00 Test Item Value Reference Range Interpretation Comments POC-HEMATOCRIT 40 % 36-45 TESTED AT [place] [address] ([facility]) (test code = JOHANNY James [facility] [address]) [id number] 17:13:00 Test Item Value Reference Range Interpretation Comments POC-HEMOGLOBIN 13.6 g/dL 12.0-15.0 TESTED AT [place] [address] ([facility]) (test code [facility] = 3161) [address]TNEKBI AT [place] [address] [place] [facility] [address] POCT-GLUCOSE [id number] 17:07:00 Test Item Value Reference Range Interpretation Comments POC-GLUCOSE METER > mg/dL 70-110 HH OUTSIDE ME ASURING ([facility]) (test code RANGETES OLGA AT [place] [address] = 1538) [facility] [address]
[2023-01-10] MEDS ORDERED: NA CHLORIDE 0.9% 2,000 ML ONE (00:17)
[2023-01-10 00:51] LABS: Absolute Lymphocytes (CBC) 0.9 K/uL (0.7-4.9); Hematocrit 46.3 % (36.0-45.0); Lymphocytes % 12.4 % (15.3-44.8); MCV 95.6 fL (80-100); MPV 7.8 fL (7.6-11.3); RBC Red Blood Cell Count 4.84 M/uL (3.86-4.86)
[2023-01-10 00:53] LABS: Protime INR 0.84
[2023-01-10 00:55] LABS: Urine Blood Negative (Negative); Urine Glucose 2+ (Negative); Urine Protein Trace (Negative); Urine Specific Gravity >=1.030 (1.005-1.030)
[2023-01-10 01:14] LABS: ALT/SGPT 28 U/L (13-56); AST/SGOT 12 U/L (15-37); Albumin 4.2 g/dL (3.4-5.0); Alkaline Phosphatase 132 U/L (45-117); BUN Blood Urea Nitrogen 19 mg/dL (7-18); Bilirubin Direct 0.1 mg/dL (0-0.2); Bilirubin Total 0.6 mg/dL (0.2-1.0); Glomerular Filtration Rate 63 ml/min (=/>90); Lipase 35 U/L (13-75); NT PRO-BNP 170 pg/mL (<125); Potassium 3.4 mmol/L (3.5-5.1); Protein, Total 8.9 g/dL (6.4-8.2); Sodium Level 131 mmol/L (136-145); Troponin High Sensitivity < 3.0 pg/mL (<58.9)
[2023-01-10 01:16] LABS: Bicarbonate 11 mmol/L (21-32); Glucose Level 524 mg/dL (74-106)
[2023-01-10 01:25] LABS: SARS-CoV-2 Antigen Rapid Res Negative (Negative)
[2023-01-10] MEDS ORDERED: NA CHLORIDE 0.9% 100 ML ONE (01:36)
[2023-01-10] MEDS ORDERED: INSULIN -REGULAR HUMAN 50 UNIT/0.5 ML ML ONE ×2 (01:36→13:31)
[2023-01-10] MEDS ORDERED: NA CHLORIDE 0.9% 1,000 ML ONE (01:43)
[2023-01-10 01:45] LABS: Urine Specific Gravity/Preg >1.030 (1.005-1.030)
--- NOTE | 2023-01-10 01:49 | P.HP ---
Certification for Inpatient Patient admitted to: Inpatient With expected LOS: <2 Midnights Patient will require the following post-hospital care: None Practitioner: I am a practitioner with admitting privileges, knowledge of patient current condition, hospital course, and medical plan of care. Services: Services provided to patient in accordance with Admission requirements found in Title 42 Section 412.3 of the Code of Federal Regulations Patient History Date of Service: 01/10/23 Reason for admission: DKA History of Present Illness: Patient is a 27-year-old female with type 1 diabetes who presented to the ED via EMS with complaints of nausea, vomiting, headache, and hyperglycemia. She states that she ran out of her long acting insulin and has only been taking short acting insulin. She was noted to be in DKA with blood sugar 524, CO2 11, anion gap 27, urine positive for glucose and ketones. She refused ABG. She was started on insulin drip in ED and is admitted for further management of DKA. Allergies No Known Allergies Allergy (Verified 09/29/22 00:31) Home Medications: Insulin Aspart [Novolog Flexpen] See Protocol SQ SEECOM #1 box 03/01/21 Insulin Glargine,Hum.rec.anlog [Lantus Solostar] 30 unit SQ DAILY 03/01/22 - Past Medical/Surgical History Diabetic: Yes -: Diabetes mellitus type 1 -: C section Psychosocial/ Personal History: Patient lives at home with family - Family History Mother -: Diabetes - Social History Smoking Status: Current some day smoker (vapes) Alcohol use: Yes CD- Drugs: No Caffeine use: Yes Place of Residence: Home Physical Examination - Studies Laboratory Data (last 24 hrs) 01/10/23 00:35: PT 9.2 L, INR 0.84 01/10/23 00:35: WBC 7.40, Hgb 14.9, Hct 46.3 H, Plt Count 393 01/10/23 00:35: Sodium 131 L, Potassium 3.4 L, BUN 19 H, Creatinine 1.20 H, Glucose 524 H*, Magnesium 2.0, Total Bilirubin 0.6, AST 12 L, ALT 28, Alkaline Phosphatase 132 H, Lipase 35 Assessment and Plan - Problems (Diagnosis) (1) DKA (diabetic ketoacidoses) Current Visit: Yes Status: Acute Qualifiers: Diabetes mellitus type: type 1 Diabetes mellitus complication detail: without coma Qualified Code(s): E10.10 - Type 1 diabetes mellitus with ketoacidosis without coma - Plan Patient is admitted to ICU for further management of DKA. DKA protocol in place with insulin drip, IV fluids with potassium, every 1 hours blood sugar checks, every 4 hours BMP/acetone. A1c and lipid panel in the morning. Clear liquid diet. Patient is tolerating PO and no longer vomiting. Monitor and replete electrolytes per protocol. Lovenox for VTE prophylaxis. Full code Discharge Plan: Home Plan to discharge in: 48 Hours - Advance Directives Does patient have a Living Will: No Does patient have a Durable POA for Healthcare: No - Code Status/Comfort Care Code Status Assessed: Yes Code Status: Full Code Physician Review: Patient Assessed, Agree with Above Assessment and Plan Critical Care: No Time Spent Managing Pts Care (In Minutes): 50
[2023-01-10] MEDS ORDERED: ONDANSETRON 4 MG/2 ML VIAL IV PRN (02:13)
[2023-01-10] MEDS ORDERED: NACHLORIDE 0.45% 1,000 ML with POTASSIUM CL 20 MEQ IV SCH ×4 (02:13→10:30)
[2023-01-10] MEDS ORDERED: INSULIN -REGULAR HUMAN 100 UNIT in NA CHLORIDE 0.9% 100 ML IV SCH (02:13)
[2023-01-10] MEDS ORDERED: D5.45NS W/KCL 20MEQ 1,000 ML IV SCH (02:13)
[2023-01-10] MEDS ORDERED: ACETAMINOPHEN 500 MG TAB PO ONE (02:46)
[2023-01-10] MEDS ORDERED: D5.45NS W/KCL 20MEQ 1,000 ML IV ONE (04:27)
[2023-01-10 05:09] VITALS: BMI 28.4
[2023-01-10 05:51] LABS: BUN Blood Urea Nitrogen 11 mg/dL (7-18); Bicarbonate 21 mmol/L (21-32); Glomerular Filtration Rate 123 ml/min (=/>90); Glucose Level 117 mg/dL (74-106); HDL Cholesterol 50 mg/dL (40-60); LDL Cholesterol, Calculated 77 mg/dL (<130); Potassium 3.3 mmol/L (3.5-5.1); Sodium Level 138 mmol/L (136-145)
[2023-01-10] MEDS ORDERED: ACETAMINOPHEN 500 MG TAB ONE (07:57)
[2023-01-10] MEDS ORDERED: INFLUENZA VACCINE (for 6+ mo) 0.5 ML DOSE IMVAC ONE (08:00)
[2023-01-10 08:48] VITALS: TEMP 98.1
[2023-01-10] MEDS ORDERED: ENOXAPARIN 30 MG/0.3 ML SQ SCH (09:00)
[2023-01-10] MEDS ORDERED: ENOXAPARIN 40 MG/0.4 ML SQ SCH (09:00)
[2023-01-10 09:40] LABS: BUN Blood Urea Nitrogen 10 mg/dL (7-18); Bicarbonate 21 mmol/L (21-32); Glomerular Filtration Rate 121 ml/min (=/>90); Glucose Level 194 mg/dL (74-106); Potassium 3.5 mmol/L (3.5-5.1); Sodium Level 135 mmol/L (136-145)
[2023-01-10] MEDS ORDERED: INSULIN GLARGINE 100 UNIT/ML SQ ONE ×2 (09:48→10:17)
[2023-01-10] MEDS ORDERED: D50W 25 GM/50 ML SYRINGE IV PRN (09:49)
[2023-01-10] MEDS ORDERED: GLUCAGON 1 MG/VIAL IM PRN (09:49)
[2023-01-10] MEDS ORDERED: D10W 125 ML IV PRN (09:52)
[2023-01-10] MEDS ORDERED: ENOXAPARIN 40 MG/0.4 ML SQ ONE (10:15)
[2023-01-10] MEDS ORDERED: INSULIN -REGULAR HUMAN 50 UNIT/0.5 ML ML SQ SCH (11:30)
--- NOTE | 2023-01-10 12:31 | RAD REPORT ---
EXAM DESCRIPTION: RAD - Chest Single View - 01/10/2023 1:02 am CLINICAL HISTORY: The patient is 27 years old and is Female; COUGH [facility] MAIN TECHNIQUE: Frontal view of the chest. COMPARISON: 04/09/2021 chest radiograph FINDINGS: LUNGS: Unremarkable. No consolidation. PLEURAL SPACE: Unremarkable. No pleural effusion. No pneumothorax. HEART: Unremarkable. No cardiomegaly. MEDIASTINUM: Stable cardiomediastinal silhouette. BONES/JOINTS: Unremarkable. IMPRESSION: No acute findings in the chest. Electronically signed by: Monty Brar MD 01/10/2023 1:20 AM STORY ANALYST Due to temporary technical issues with the PACS/Fluency reporting system, reports are being signed by the in house radiologists without review as a courtesy to insure prompt reporting. The interpreting radiologist is fully responsible for the content of the report.
[2023-01-10 13:21] VITALS: BP 112/76
--- NOTE | 2023-01-10 13:46 | P.DS ---
Admission Date: 01/10/23 Discharge Date: 01/10/23 Disposition: ROUTINE DISCHARGE Discharge Condition: FAIR Reason for Admission: DKA - Problems (1) DKA (diabetic ketoacidoses) Current Visit: Yes Status: Acute Qualifiers: Diabetes mellitus type: type 1 Diabetes mellitus complication detail: without coma Qualified Code(s): E10.10 - Type 1 diabetes mellitus with ketoacidosis without coma Brief History of Present Illness: Patient is a 27-year-old female with type 1 diabetes who presented to the ED via EMS with complaints of nausea, vomiting, headache, and hyperglycemia. She states that she ran out of her long acting insulin and was only using her short acting insulin. She was noted to be in DKA with blood sugar 524, CO2 11, anion gap 27, urine positive for glucose and ketones. She refused ABG. She was started on insulin drip in ED and admitted for further management of DKA. Hospital Course: Patient admitted to the ICU on insulin drip. Also treated with aggressive IV hydration per DKA protocol. Anion gap closed quicker than expected. Patient was transition from insulin drip to subcutaneous insulin within 24 hours. She tolerated diet and started on long-acting insulin. Resume for DKA insulin noncompliance. Vitals have been stable. Patient is deemed clinically stable for discharge. She is given refill for her long-acting insulin. Vital Signs/Physical Exam: Temp Pulse Resp BP Pulse Ox 98.1 F 80 16 112/76 100 01/10/23 08:00 01/10/23 12:00 01/10/23 12:00 01/10/23 12:00 01/10/23 12:00 General: Alert, In no apparent distress, Oriented x3 HEENT: Mucous membr. moist/pink Neck: JVD not distended Respiratory: Clear to auscultation bilaterally, Normal air movement Cardiovascular: No edema, Regular rate/rhythm, Normal S1 S2 Gastrointestinal: Normal bowel sounds, Soft and benign, Non-distended, No tenderness Musculoskeletal: No swelling Integumentary: No rashes Neurological: Normal strength at 5/5 x4 extr Laboratory Data at Discharge: WBC 7.40 K/uL (4.3-10.9) 01/10/23 00:35 Hgb 14.9 g/dL (12.0-15.0) 01/10/23 00:35 Hct 46.3 % (36.0-45.0) H 01/10/23 00:35 Plt Count 393 K/uL (152-406) 01/10/23 00:35 PT 9.2 SECONDS (9.5-12.5) L 01/10/23 00:35 INR 0.84 01/10/23 00:35 Sodium 135 mmol/L (136-145) L 01/10/23 09:15 Potassium 3.5 mmol/L (3.5-5.1) 01/10/23 09:15 BUN 10 mg/dL (7-18) 01/10/23 09:15 Creatinine 0.70 mg/dL (0.55-1.02) 01/10/23 09:15 Glucose 194 mg/dL (74-106) H 01/10/23 09:15 Magnesium 2.0 mg/dL (1.6-2.4) 01/10/23 00:35 Total Bilirubin 0.6 mg/dL (0.2-1.0) 01/10/23 00:35 AST 12 U/L (15-37) L 01/10/23 00:35 ALT 28 U/L (13-56) 01/10/23 00:35 Alkaline Phosphatase 132 U/L (45-117) H 01/10/23 00:35 Triglycerides 152 mg/dL (<150) H 01/10/23 05:08 Cholesterol 157 mg/dL (<200) 01/10/23 05:08 HDL Cholesterol 50 mg/dL (40-60) 01/10/23 05:08 Cholesterol/HDL Ratio 3.14 01/10/23 05:08 Lipase 35 U/L (13-75) 01/10/23 00:35 Home Medications: Insulin Aspart [Novolog Flexpen] See Protocol SQ SEECOM #1 box 03/01/21 Insulin Detemir [Levemir Flexpen] 24 unit SQ BID #30 ml 01/10/23 New Medications: Insulin Detemir [Levemir Flexpen] 24 unit SQ BID #30 ml Diet: ADA Activity: Ad pepe Followup: NONE,NONE [Primary Care Provider] - Time spent managing pt's care (in minutes): 33
[2023-01-10 14:59] VITALS: O2SAT 100
--- NOTE | 2023-01-13 13:15 | EKG ---
Test Date: 2023-01-10 Test Time: 01:15:11 Social Services Aide: MELANIA MEASUREMENT RESULTS: Intervals: Rate: 82 MD: 178 QRSD: 80 QT: 394 QTc: 460 [place]: P: 63 MD: 178 QRS: 70 T: 49 INTERPRETIVE STATEMENTS: Normal sinus rhythm Normal ECG Compared to ECG 09/28/2022 18:00:34 No significant changes Electronically Signed On 01-13-23 13:08:33 CDT by Eduard Landin
== END 2023-01-10 14:19 | disposition home health service (06) ==
LOC: ER 23:46 → INTOOBSV 01-10 01:44 → ERHOLD 01-10 01:44
PROVIDERS: ADMIT Internal Medicine; ATTEND Internal Medicine
DX: E10.10 Type 1 diabetes mellitus with ketoacidosis without coma (principal)
CPT/HCPCS: 93005; 87040 ×2; 87088; 85025; 87086; 80048 ×3; 36415; 82010 ×2; 83735; 81025; 85610; 80061; 82947 ×11; 80076; 83605; 81003; 83036; 84484; 83690; 83880; 83930; 71045; 96374; 99285; 87811; J1815 ×2; J3480; J7030 ×2; J1650

== ENCOUNTER 2023-03-09 18:36 | Observation (INO) | payer OTHER ==
--- OUTSIDE RECORDS SUMMARY | 2023-03-09 18:43 | XMS REPORT | Continuity of Care Document ---
:1995 Author Organization [facility] t Address [address] [place] [address] Care Team Providers Name Role Phone Pcp, Patient Does Not Have A Primary Care Physician [id number] ANSELMO FIGUEROA Attending Clinician Unavailable ANSELMO FIGUEROA Attending Clinician Unavailable Natalie Garcia Attending Clinician Unavailable Beatriz Moreira MD Attending Clinician BEATRIZ MOREIRA Attending Clinician Unavailable Doctor Unassigned, [place] Attending Clinician Unavailable CASIE BRUNO Attending Clinician Unavaila ble ANSELMO FIGUEROA Admitting Clinician Unavailable Natalie Garcia Admitting Clinician Unavailable CASIE BRUNO Admitting Clinician Unavaila sarai Payers Payer Name Policy Type Policy Number Effective Date Expiration Date Jared GOMES [facility] [id number] 2018 00:00:00 Problems Condition Condition Condition Status Onset Resolution Last Treating Co mments Source Name Details Category Date Date Treatment Clinician Date 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 diabetes 00:00: [place] mellitus mellitus 00 Medica l with with Branch hyperglyce hyperglyce digna digna Noncomplia Noncomplia Disease Active U nivers nce nce 8 ity of 00:00: [address] DKA DKA Disease Active Univers (diabetic (diabetic 06-03 ity of ketoac[place] [address] [place] [address] Diabetic Diabetic Disease Recurre 2017-[address] [facility] [address] ketoacidos ketoacidos nce 0-17 Gisela kes is with is with 00:00: Medical coma coma 00 Center Acute Acute Disease Active 2017-[address] metabolic metabolic 0-16 Luke s encephalop encephalop 00:00: Ut dical athy athy 00 Center Allergies, Adverse Reactions, Alerts Allergy Allergy Status Severity Reaction(s) Onset Inactive Treating Comm ents Source Name Type Date Date Clinician No Known DA Active U [facility] 1[facility]20 [place] 00:[facility]: [address] No Known DA Active U [facility]ie 1[facility]20 [place] 00:[facility]: [address] No Known DA Active U 2019- [facility] Allergie 1-26 [place] 00:00: [address] No Known DA Active U 2019- [facility] Allergie 1-26 [place] 00:00: [address] No Known DA Active U 2019- [facility] Allergie 0-[facility] [place] 00:00: [address] No Known DA Active U 2019-1 [facility] Allergie 0-03 [place] 00:00: [address] NO KNOWN Drug Active Univers ALLERGIE Class ity of S [facility] Social History Social Habit Start Date Stop Date Quantity Comments Source History of tobacco Current smoker Un iversity of use [facility] Exposure to 2022-06-01 2022-06-11 Not sure [facility] SARS-CoV-2 (event) 00:00:00 11:35:00 [facility] Alcohol intake 2020-06-03 2020-06-03 Current University of 00:00:00 00:00:00 non-drinker of [facility] alcohol Branch (finding) Tobacco Comment 2020-06-03 2020-06-03 half a pack a Univer sity of 00:00:00 00:00:00 day has not [facility] since found out Branch she is Tobacco use and 2018-08-18 2018-08-18 Current user KATE Booth exposure 00:00:00 00:00:00 Medical Center Cigarettes smoked 2018-08-18 2018-08-[address] [facility] current (pack per 00:00:00 00:00:00 Medical Center day) - Reported Sex Assigned At [birth year] KATE Hanley 00:00:00 00:00:00 [facility] Center Smoking Status Start Date Stop Date Source Ex-smoker 2020-06-03 00:00:00 2020-06-03 00:00:00 [facility] Current every day 2018-08-18 00:00:00 KATE Kennedy [facility] smoker Center Medications Ordered Filled Start Stop Current Ordering Indication Dosage Frequency Signature Comments Components Source Medication Medication Date Date Medication? Clinician (SIG) Name Name Insulin Yes [id number] 24U inject 24 Univers Detemir 3-03 Units ity of ([place] 00:[place] FLE[place] 00 skin every Medi geena U-100 morning. Branch INSULN) 100 unit/mL (3 mL) injection insulin 2021-11 Yes [id number] 24U INJECT 24 Univers degludec 1-19 UNITS ity of (TRESIBA 00:00: [place] FLEXT[place] 00 SKIN EVERY Medi geena U-100) 100 MORNING. Branc h unit/mL (3 mL) InPn insulin 2021-11 Yes [id number] 24U INJECT 24 Univers degludec 1-19 UNITS ity of (TRESIBA 00:00: [place] FLEXT[place] 00 SKIN EVERY Medi geena U-100) 100 MORNING. Branc h unit/mL (3 mL) InPn insulin 2021-11 Yes [id number] 24U INJECT 24 Univers degludec 1-19 UNITS ity of (TRESIBA 00:00: [place] FLEXT[place]CH 00 SKIN EVERY Medi geena U-100) 100 MORNING. Branc h unit/mL (3 mL) InPn insulin 2021-11 Yes [id number] 24U INJECT 24 Univers degludec 1-19 UNITS ity of (TRESIBA 00:00: [place] FLEXTOUCH 00 SKIN EVERY Medi geena U-100) 100 MORNING. Branc h unit/mL (3 mL) InPn insulin 2021-11 Yes [id number] 24U INJECT 24 Univers degludec 1-19 UNITS ity of (TRESIBA 00:00: [place] FLEXTOUCH 00 SKIN EVERY Medi geena U-100) 100 MORNING. Branc h unit/mL (3 mL) InPn insulin 2021-11 2023- No [id number] 24U INJECT 24 Univers degludec 1-19 03-03 UNITS ity of (TRESIBA 00:00: 00:00 UNDER THE [place] as FLEXTOUCH 00 :00 SKIN EVERY Medi geena U-100) 100 MORNING. Branc h unit/mL (3 mL) InPn Insulin Yes [id number] Use as Uni vers [place], 06-11 directed ity of Disposable, 00:00: four times [place] (BD 00 a day. Medical ULTRA-FINE DX:E10.65 Bran ch MICRO PEN NEEDLE) 32 gauge x 1/4" Ndle blood sugar Yes [id number] Use as Univers diagnostic 06-11 directed ity o f (TRUE 00:00: up to 4 [place] METRIX 00 times a Medical GLUCOSE day Branch TEST STRIP) strip lancets Yes [id number] Use as Uni vers (ONE TOUCH 06-11 directed ity o f DELICA) 33 00:00: [place] 4 [place] gauge Misc 00 times a Medica l day E10.65 Branch insulin Yes [id number] INJECT UP Univers aspart 06-11 TO 10 ity of U-100 00:00: UNITS [place] (NOVOLOG 00 UNDER THE Medica l FLEXPEN SKIN 3 Branch U-100 TIMES A INSULIN) DAY WITH A 100 unit/mL MEAL PER (3 mL) SLIDING injection SCALE Insulin Yes [id number] Use as Uni vers [place], 06-11 directed ity of Disposable, 00:00: four times [place] (BD 00 a day. Medical ULTRA-FINE DX:E10.65 Bran ch MICRO PEN NEEDLE) 32 gauge x 1/4" Ndle blood sugar Yes [id number] Use as Univers diagnostic 06-11 directed ity o f (TRUE 00:00: up to 4 [place] METRIX 00 times a Medical GLUCOSE day Branch TEST STRIP) strip lancets Yes [id number] Use as Uni vers (ONE TOUCH 06-11 directed ity o f DELICA) 33 00:00: [place] 4 [place] gauge Misc 00 times a Medica l day E10.65 Branch insulin Yes [id number] INJECT UP Univers aspart 06-11 TO 10 ity of U-100 00:00: UNITS [place] (NOVOLOG 00 UNDER THE Medica l FLEXPEN SKIN 3 Branch U-100 TIMES A INSULIN) DAY WITH A 100 unit/mL MEAL PER (3 mL) SLIDING injection SCALE Insulin Yes [id number] Use as Uni vers [place], 06-11 directed ity of Disposable, 00:00: four times [place] (BD 00 a day. Medical ULTRA-FINE DX:E10.65 Bran ch MICRO PEN NEEDLE) 32 gauge x 1/4" Ndle blood sugar Yes [id number] Use as Univers diagnostic 06-11 directed ity o f (TRUE 00:00: up to 4 [place] METRIX 00 times a Medical GLUCOSE day Branch TEST STRIP) strip lancets Yes [id number] Use as Uni vers (ONE TOUCH 06-11 directed ity o f DELICA) 33 00:00: [place] 4 [place] gauge Misc 00 times a Medica l day E10.65 Branch insulin Yes [id number] INJECT UP Univers aspart 06-11 TO 10 ity of U-100 00:00: UNITS [place] (NOVOLOG 00 UNDER THE Medica l FLEXPEN SKIN 3 Branch U-100 TIMES A INSULIN) DAY WITH A 100 unit/mL MEAL PER (3 mL) SLIDING injection SCALE Insulin Yes [id number] Use as Uni vers [place], 06-11 directed ity of Disposable, 00:00: four times [place] (BD 00 a day. Medical ULTRA-FINE DX:E10.65 Bran ch MICRO PEN NEEDLE) 32 gauge x 1/4" Ndle insulin Yes [id number] 24U inject 24 Univers degludec 06-11 Units ity of (TRESIBA 00:00: [place] FLEXTOUCH 00 skin every Medi geena U-100) 100 morning. Branc h unit/mL (3 mL) InPn blood sugar Yes [id number] Use as Univers diagnostic 06-11 directed ity o f (TRUE 00:00: up to 4 [place] METRIX 00 times a Medical GLUCOSE day Branch TEST STRIP) strip lancets Yes [id number] Use as Uni vers (ONE TOUCH 06-11 directed ity o f DELICA) 33 00:00: [place] 4 [place] gauge Misc 00 times a Medica l day E10.65 Branch insulin Yes [id number] INJECT UP Univers aspart 8- TO 10 ity of U-100 00:00: UNITS [place] (NOVOLOG 00 UNDER THE Medica l FLEXPEN SKIN 3 Branch U-100 TIMES A INSULIN) DAY WITH A 100 unit/mL MEAL PER (3 mL) SLIDING injection SCALE Insulin Yes [id number] Use as Uni vers [place], 06-11 directed ity of Disposable, 00:00: four times [place] (BD 00 a day. Medical ULTRA-FINE DX:E10.65 Bran ch MICRO PEN NEEDLE) 32 gauge x 1/4" Ndle blood sugar Yes [id number] Use as Univers diagnostic 06-11 directed ity o f (TRUE 00:00: up to 4 [place] METRIX 00 times a Medical GLUCOSE day Branch TEST STRIP) strip lancets Yes [id number] Use as Uni vers (ONE TOUCH 06-11 directed ity o f DELICA) 33 00:00: [place] 4 [place] gauge Misc 00 times a Medica l day E10.65 Branch insulin Yes [id number] INJECT UP Univers aspart 06-11 TO 10 ity of U-100 00:00: UNITS [place] (NOVOLOG 00 UNDER THE Medica l FLEXPEN SKIN 3 Branch U-100 TIMES A INSULIN) DAY WITH A 100 unit/mL MEAL PER (3 mL) SLIDING injection SCALE Insulin Yes [id number] Use as Uni vers [place], 06-11 directed ity of Disposable, 00:00: four times [place] (BD 00 a day. Medical ULTRA-FINE DX:E10.65 Bran ch MICRO PEN NEEDLE) 32 gauge x 1/4" Ndle blood sugar Yes [id number] Use as Univers diagnostic 06-11 directed ity o f (TRUE 00:00: up to 4 [place] METRIX 00 times a Medical GLUCOSE day Branch TEST STRIP) strip lancets Yes [id number] Use as Uni vers (ONE TOUCH 06-11 directed ity o f DELICA) 33 00:00: [place] 4 [place] gauge Misc 00 times a Medica l day E10.65 Branch insulin 0 Yes [id number] INJECT UP Univers aspart 8-09 TO 10 ity of U-100 00:00: UNITS [place] (NOVOLOG 00 UNDER THE Medica l FLEXPEN SKIN 3 Branch U-100 TIMES A INSULIN) DAY WITH A 100 unit/mL MEAL PER (3 mL) SLIDING injection SCALE Insulin Yes [id number] Use as Uni vers [place], 06-11 directed ity of Disposable, 00:00: four times [place] (BD 00 a day. Medical ULTRA-FINE DX:E10.65 Bran ch MICRO PEN NEEDLE) 32 gauge x 1/4" Ndle blood sugar Yes [id number] Use as Univers diagnostic 06-11 directed ity o f (TRUE 00:00: up to 4 [place] METRIX 00 times a Medical GLUCOSE day Branch TEST STRIP) strip lancets Yes [id number] Use as Uni vers (ONE TOUCH 06-11 directed ity o f DELICA) 33 00:00: [place] 4 [place] gauge Misc 00 times a Medica l day E10.65 Branch insulin Yes [id number] INJECT UP Univers aspart 8 TO 10 ity of U-100 00:00: UNITS [place] (NOVOLOG 00 UNDER THE Medica l FLEXPEN SKIN 3 Branch U-100 TIMES A INSULIN) DAY WITH A 100 unit/mL MEAL PER (3 mL) SLIDING injection SCALE Insulin Yes [id number] Use as Uni vers [place], 06-11 directed ity of Disposable, 00:00: four times [place] (BD 00 a day. Medical ULTRA-FINE DX:E10.65 Bran ch MICRO PEN NEEDLE) 32 gauge x 1/4" Ndle blood sugar 0 Yes [id number] Use as Univers diagnostic 06-11 directed ity o f (TRUE 00:00: up to 4 [place] METRIX 00 times a Medical GLUCOSE day Branch TEST STRIP) strip lancets Yes [id number] Use as Uni vers (ONE TOUCH 06-11 directed ity o f DELICA) 33 00:00: [place] 4 [place] gauge Misc 00 times a Medica l day E10.65 Branch insulin Yes [id number] INJECT UP Univers aspart 06-11 TO 10 ity of U-100 00:00: UNITS [place] (NOVOLOG 00 UNDER THE Medica l FLEXPEN SKIN 3 Branch U-100 TIMES A INSULIN) DAY WITH A 100 unit/mL MEAL PER (3 mL) SLIDING injection SCALE Insulin Yes [id number] Use as Uni vers [place], 06-11 directed ity of Disposable, 00:00: four times [place] (BD 00 a day. Medical ULTRA-FINE DX:E10.65 Bran ch MICRO PEN NEEDLE) 32 gauge x 1/4" Ndle blood sugar Yes [id number] Use as Univers diagnostic 06-11 directed ity o f (TRUE 00:00: up to 4 [place] METRIX 00 times a Medical GLUCOSE day Branch TEST STRIP) strip lancets Yes [id number] Use as Uni vers (ONE TOUCH 06-11 directed ity o f DELICA) 33 00:00: [place] 4 [place] gauge Misc 00 times a Medica l day E10.65 Branch insulin Yes [id number] INJECT UP Univers aspart 06-11 TO 10 ity of U-100 00:00: UNITS [place] (NOVOLOG 00 UNDER THE Medica l FLEXPEN SKIN 3 Branch U-100 TIMES A INSULIN) DAY WITH A 100 unit/mL MEAL PER (3 mL) SLIDING injection SCALE insulin 2021- No [id number] 24U inject 24 Univers degludec 06-11 11-19 Units ity of (TRESIBA 00:00: 00:00 under the [place] FLEXTOUCH 00 :00 skin every Medi geena U-100) 100 morning. Branc h unit/mL (3 mL) InPn Insulin NPH 2021- No [id number] 24 units Univers Human 06-04 every ity of [place] 00:00: 00:00 morning(2A [place] (NOVOLIN N 00 :00 M) and 12 Medi geena FLEXPEN) units Branch 100 unit/mL before (3 mL) bedtime ( injection 4PM) insulin 2021- No [id number] INJECT UP Univers aspart 06-04 TO 10 ity of U-100 00:00: 00:00 UNITS [place] (NOVOLOG 00 :00 UNDER THE Medica l FLEXPEN SKIN 3 Branch U-100 TIMES A INSULIN) DAY WITH A 100 unit/mL MEAL PER (3 mL) SLIDING injection SCALE lancets 2021- No [id number] Use as Un thomas (ONE TOUCH 306-11 directed ity of DELICA) 33 00:00: 00:00 up to 4 [place] gauge Misc 00 :00 times a Medica l day E10.65 Branch TRUE METRIX 2021- No [id number] Use as Univers GLUCOSE 01-04 directed ity of TEST STRIP 00:00: 00:00 up to 4 [place] strip 00 :00 times a Medical day Branch Insulin 2021- No [id number] Use as Un thomas [place], 11-23 directed ity of Disposable, 00:00: 00:00 four times [place] (BD 00 :00 a day. Medical ULTRA-FINE DX:E10.65 Bran MICRO PEN NEEDLE) 32 gauge x 1/4" Ndle [facility] Yes [id number] Use as Un thomas VERIO IQ 3-13 directed ity of METER Kit 00:00: [place]10.65 [place] 00 [facility] Yes [id number] Use as Un thomas VERIO IQ 3-13 directed ity of METER Kit 00:00: [place]ID E10.65 [place] [facility] Yes [id number] Use as Un thomas VERIO IQ 3-13 directed ity of METER Kit 00:00: [place]10.65 [place] [facility] Yes [id number] Use as Un thomas VERIO IQ 3-13 directed ity of METER Kit 00:00: TID E10.65 [place] 00 [facility] Yes [id number] Use as Un thomas VERIO IQ 3-13 directed ity of METER Kit 00:00: TID E10.65 [place] 00 [facility] Yes [id number] Use as Un thomas VERIO IQ 3-13 directed ity of METER Kit 00:00: TID E10.65 [place] 00 [facility] Yes [id number] Use as Un thomas VERIO IQ 3-13 directed ity of METER Kit 00:00: TID E10.65 [place] Branch ONETOUCH Yes [id number] Use as Un [place] VERIO IQ 3-13 directed ity of METER Kit 00:00: TID E10.65 [place] [facility] [place] ONETOUCH Yes [id number] Use as Un [place]omas VERIO IQ 3-13 directed ity of METER Kit 00:00: TID E10.65 [place] [facility] Branch insulin 2017-11 Yes 27U QD Inject [...] Source Systolic blood 2022-06-11 16:53:00 120 mm[Hg] [facility] pressure [facility] Diastolic blood 2022-06-11 16:53:00 81 mm[Hg] [facility] Heart rate 2022-06-11 16:53:00 93 /min [facility] Body weight 2022-06-11 16:53:00 76.431 kg [facility] BMI 2022-06-11 16:53:00 30.82 kg/m2 [facility] Oxygen saturation 2022-06-11 16:53:00 98 /min [facility] in Arterial blood Medical Br anch by Pulse oximetry Procedures Procedure Date / Time Performed Performing Clinician Sourc e POCT HEMOGLOBIN A1C 2022-06-11 16:56:00 Beatriz Moreira [facility] TEST [facility] Branch [id number] 2020-11-30 00:00:00 [facility] [id number] 2020-11-30 00:00:00 FELIC[facility] Encounters Start End Encounter Admission Attending Care Care Encounter Source Date/Time Date/Time Type Type Clinicians Facility Department ID 2021-08-31 Inpatient U PENG FIGUEROARubén [facility] MPU [id number] Univers 10:13:06 HENRY ANSELMO it y of [facility] 2020-11-29 Inpatient EM Jose, [facility] LD [id number] [facility] 20:33:00 Ziad 65 [facility] 2020-11-22 Inpatient EL Jose, [facility] OBANTE [id number] [facility] 10:30:00 Ziad 82 [facility] 2020-09-28 Inpatient Jose, [facility] TONY [id number] [facility] 03:41:00 Ziad 79 [facility] 2020-09-26 Inpatient EL Jose, [facility] INTE [id number] [facility] 12:48:00 Ziad 85 [facility] 2020-08-05 Inpatient [facility] JED [id number] [facility] 00:52:00 53 [facility] 2023-01-03 2023-01-03 Refill [facility] [id number] Univers 00:00:00 00:00:00 Critical access hospital [id number] it y of [facility] [id number] [place] JURGEN?BLEA [id number] [address] MEDICAL OFFICE [facility] 2022-12-23 2022-12-23 Telephone [facility] [id number] Univers 00:00:00 00:00:00 Critical access hospital [id number] it y of [facility] [id number] [place] JURGEN?BLEA [id number] [address] MEDICAL OFFICE [facility] 2022-11-26 2022-11-26 [facility] [id number] Univers 12:00:00 12:00:00 [facility] 2022-09-20 2022-09-20 [facility] [id number] Univers 00:00:00 00:00:00 Critical access hospital [id number] it y of [facility] 4.2.7.2.686 [place] JURGEN?BLEA [id number] [address] OFFICE [facility] 2022-06-11 2022-06-11 [facility] [id number] Univers 12:00:00 12:40:04 [facility] ity [facility] 2022-06-11 2022-06-11 [facility] [id number] Univers 12:00:00 12:40:04 Visit Critical access hospital [id number] it y of [facility] [id number] [place] JURGEN?BLEA [id number] [address] OFFICE [facility] 2022-06-11 2022-06-11 Outpatient R J[facility]AD[facility] [id number] Univers 12:00:00 12:00:00 [facility] 2022-06-11 2022-06-11 Orders Doctor LAZARO [id number] Univers 00:00:00 00:00:00 Only Unassigned, GENARO [id number] ity of [place] [facility] 4.2.7.2.686 [place] as [phone] [address] 2022-02-25 2022-02-25 Orders Doctor LAZARO [id number] Univers 00:00:00 00:00:00 Only Unassigned, GENARO [id number] ity of [place] [facility] 4.2.7.2.686 [place] as [phone] [address] 2020-11-22 2020-11-22 Outpatient SHIRA GarciaWU REFE [id number] [facility] 14:51:00 14:51:00 Natalie 76 [facility] 2020-09-26 2020-09-26 Outpatient ISAAC GarciaU REFE [id number] [facility] 17:05:00 17:05:00 Natalie 75 [facility] 2020-09-20 2020-09-20 Refelisabet Moreira [facility] [id number] 00:00:00 00:00:00 Beatriz [place] 350.1.13.10 [place] 4.2.7.2.686 Professio [phone] [facility] [address] [facility] 2020-07-16 2020-07-16 [facility] [id number] 00:00:00 00:00:00 Beatriz [place] 350.1.13.10 [place] 4.2.7.2.686 Professio [id number] [facility] 2020-06-20 2020-06-20 Outpatient R JARAD [facility] [id number] Univers 10:00:00 10:00:00 [facility] 2020-05-30 2020-05-30 Outpatient R [facility] [id number] Univers 08:00:00 08:00:00 [facility] 2020-05-09 2020-05-09 [facility] [id number] Univers 14:00:00 14:00:00 [facility] 2020-01-05 2020-01-05 [facility] [id number] Univers 11:00:00 11:00:00 [facility] Results Test Description Test Time Test Comments Results Result Comments Source POCT HEMOGLOBIN A1C TEST 2022-06-11 16:56:00 Test Item Value Reference Range Interpretation Comme nts POCT HBA1C (test code = 4548-4) 14 % 4-6 A Lab Interpretation (test code = 18204-0) [id number] 07:05:48 Test Item Value Reference Range Interpretation Comments HEMOGLOBIN A1c (test 12.7 % 4.2-5.6 H AMERIC AN DIABETES code = 37721) ASSOCIATION IDELINES FOR HGB A1C: PREDIABETES/INC REASED [...] UNLESS OTHERWIS E INDICATED, ALL TESTING PER [facility]. [address] [place] [address] LABORATORY DIRE CTOR: Ca HOOVER CLIA NUMBER [id number] CAP ACCREDITATION N O. [id number] ALBUMIN/CREATININE RATIO, URINE, [id number] 04:35:05 Test Item Value Reference Range Interpretation Comments CREATININE, URINE, 151.8 MG/DL NOT ESTAB RANDOM (test code = 2072) ALBUMIN, URINE, 212.2 MG/DL NOT ESTAB RANDOM (test code = 66563) CALC ALBUMIN/CREAT, 1398 MG/G <30 H Note: RND (test code = Albumin/Cre atinine 68211) ratio reference interval reflec ts ADA and NKF guideli svitlana. PLACENTA THIRD [id number] 11:28:00 Test Item Value Reference Range Interpretation Comments PLACENTA THIRD TRIMESTER (test code = PLACIII) RUN DATE: 12/07/20 [facility] PAGE 1 RUN TIME: 1403 Specimen Inquiry RUN USER: INTERFACE PATIENT: TASHI MOSQUERA LOC: MICHAEL U #: [id number] AGE/SX: 25/F ROOM: 2029 RE11/29/20REG DR: Natalie Garcia MD : 94 BED: A DIS: 12/03/20 STATUS: DIS IN TLOC: SPEC #: [id number] RECD: 12/01/20-935 STATUS: REKHA KO #: [id number] THERESE: 11/30/20- SUBM DR: Natalie Garcia MD ENTERED: 12/01/20 SP TYPE: PLACIII OTHR DR: ORDERED: LEVEL V SURGICA CODES: [id number] - PLACENTA, NOS PROCEDURES: LEVEL V SURGICA [...] risk for recurrence in future pregnancies. CPT: 12247 pkg/wpd GROSS DESCRIPTION The specimen was received in a container, labeled with the patient's name, unit number and designated "placenta". The following attributes are observed: Cord insertion: 1 cm from margin CONTINUED ON NEXT PAGE RUN DATE: 12/07/20 [facility] PAGE 2 RUN TIME: 1403 Specimen Inquiry RUN USER: INTERFACE SPEC #: [id number] PATIENT: TASHI MOSQUERA #[id number] (Continued) --- GROSS DESCRIPTION (Continued) Cord length: [...] Olive Young 12/07/20 1128 END OF REPORT [id number] 11:58:00 Test Item Value Reference Range Interpretation Comments GLUBED (test code = GLUBED) 71 mg/dL 65-110 N [id number] 06:51:00 Test Item Value Reference Range Interpretation Comments GLUBED (test code = GLUBED) 80 mg/dL 65-110 N [id number] 21:24:00 Test Item Value Reference Range Interpretation Comments GLUBED (test code = GLUBED) 103 mg/dL 65-110 N [id number] 15:15:00 Test Item Value Reference Range Interpretation Comments GLUBED (test code = GLUBED) 206 mg/dL 65-110 H [id number] 09:56:00 Test Item Value Reference Range Interpretation Comments GLUBED (test code = GLUBED) 200 mg/dL 65-110 H [id number] 06:48:00 Test Item Value Reference Range Interpretation Comments GLUBED (test code = GLUBED) 64 mg/dL 65-110 L [id number] 21:12:00 Test Item Value Reference Range Interpretation Comments GLUBED (test code = GLUBED) 186 mg/dL 65-110 H [id number] 14:15:00 Test Item Value Reference Range Interpretation Comments GLUBED (test code = GLUBED) 177 mg/dL 65-110 H [id number] 10:42:00 Test Item Value Reference Range Interpretation Comments GLUBED (test code = GLUBED) 242 mg/dL 65-110 H [id number] 08:21:00 Test Item Value Reference Range Interpretation Comments HEMOGLOBIN (test code = HGB) 11.7 g/dL 10.7-13.9 N HEMATOCRIT (test code = HCT) 36.4 % 32.1-42.1 N [id number] 06:49:00 Test Item Value Reference Range Interpretation Comments GLUBED (test code = GLUBED) 115 mg/dL 65-110 H [id number] 22:46:00 Test Item Value Reference Range Interpretation Comments GLUBED (test code = GLUBED) 129 mg/dL 65-110 H [id number] 19:28:00 Test Item Value Reference Range Interpretation Comments GLUBED (test code = GLUBED) 221 mg/dL 65-110 H [id number] 17:42:00 Test Item Value Reference Range Interpretation Comments GLUBED (test code = GLUBED) 359 mg/dL 65-110 H [id number] 10:51:00 Test Item Value Reference Range Interpretation Comments GLUBED (test code = GLUBED) 126 mg/dL 65-110 H ARTERIAL BLOOD [id number] 10:01:00 Test Item Value Reference Range Interpretation [...] FIO2 (test code = FIO2A) 21.0 % PaO2/[id number] 10:01:00 Test Item Value Reference Range Interpretation Comments PaO2/FiO2 (test code = [id number]) mm/Hg ARTERIAL BLOOD [id number] 10:01:00 Test Item Value Reference Range Interpretation [...] FIO2 (test code = FIO2A) 21.0 % PaO2/[id number] 10:01:00 Test Item Value Reference Range Interpretation Comments PaO2/FiO2 (test code = EGT4HGM1) 70.40 mm/Hg CAPILLARY BLOOD [id number] 10:00:00 Test Item Value Reference Range Interpretation [...] FIO2 (test 21.0 % code = FIO2C) [id number] 06:32:00 Test Item Value Reference Range Interpretation Comments GLUBED (test code = GLUBED) 183 mg/dL 65-110 H [id number] 02:15:00 Test Item Value Reference Range Interpretation Comments GLUBED (test code = GLUBED) 82 mg/dL 65-110 N [id number] 22:52:00 Test Item Value Reference Range Interpretation Comments GLUBED (test code = GLUBED) 200 mg/dL 65-110 H AG HEPATITIS B [id number] 22:46:00 Test Item Value Reference Range Interpretation Comments AG HEPATITIS B SURFACE (test code NONREACTIVE NONREACTIVE = HBSAG) IS CONSENT FORM SIGNED FOR HIV TESTING? YAB HEPATITIS C [id number] 22:46:00 Test Item Value Reference Range Interpretation Comments AB HEPATITIS C (test code = NONREACTIVE NONREACTIVE HCVAB) SIGNAL TO CUTOFF (test code = 0.03 <0.80 N CUTOFF) IS CONSENT FORM SIGNED FOR HIV TESTING? YAB [id number] 22:46:00 Test Item Value Reference Range Interpretation Comments AB TREPONEMA (test code = TREPAB) NONREACTIVE NONREACTIVE IS CONSENT FORM SIGNED FOR HIV TESTING? YAB HIV 1 22:46:00 Test Item Value Reference Range Interpretation Comments AB HIV 1 2 (test NONREACTIVE NONREACTIVE [facility] code = [id number]) 4th Gen HIV Ag/Ab Combo Screen IS CONSENT FORM SIGNED FOR HIV TESTING? YAG HEPATITIS B [id number] 22:16:00 Test Item Value Reference Range Interpretation Comments AG HEPATITIS B SURFACE (test code NONREACTIVE NONREACTIVE = HBSAG) IS CONSENT FORM SIGNED FOR HIV TESTING? [facility] HEPATITIS C [id number] 22:16:00 Test Item Value Reference Range Interpretation Comments AB HEPATITIS C (test code = HCVAB) NONREACTIVE SIGNAL TO CUTOFF (test code = CUTOFF) <0.80 IS CONSENT FORM SIGNED FOR HIV TESTING? B [id number] 22:16:00 Test Item Value Reference Range Interpretation Comments AB TREPONEMA (test code = TREPAB) NONREACTIVE NONREACTIVE IS CONSENT FORM SIGNED FOR HIV TESTING? YAB HIV 1 22:16:00 Test Item Value Reference Range Interpretation Comments AB HIV 1 2 (test code = BOS51FC) NONREACTIVE IS CONSENT FORM SIGNED FOR HIV TESTING? YCBC W/AUTO [id number] 21:47:00 Test Item Value Reference Range Interpretation [...] code = PLTMR) COVID 19 Asymptomatic IH [id number] 21:44:00 Test Item Value Reference Range Interpretation Comments COVID 19 NEGATIVE NEGATIVE This test has b een Asymptomatic IH AG authorize d only for the (test code = detection ofpro teins from [facility]) SARS-CoV-2, not for any other viruses orpathogens. [...] and/o r diagnosis of CO VID-19 under Yhvwxcs99 4(b)(1) of the Act, 21 U.S .C. 360bbb-3(b)(1), unless theauthorizatio n is terminated or r evoked sooner. [id number] 10:30:00 Test Item Value Reference Range Interpretation Comments GLUBED (test code = GLUBED) 105 mg/dL 65-110 N [id number] 06:29:00 Test Item Value Reference Range Interpretation Comments GLUBED (test code = GLUBED) 126 mg/dL 65-110 H [id number] 01:02:00 Test Item Value Reference Range Interpretation Comments GLUBED (test code = GLUBED) 72 mg/dL 65-110 N [id number] 20:42:00 Test Item Value Reference Range Interpretation Comments GLUBED (test code = GLUBED) 88 mg/dL 65-110 N [id number] 14:39:00 Test Item Value Reference Range Interpretation Comments GLUBED (test code = GLUBED) 149 mg/dL 65-110 H [id number] 11:20:00 Test Item Value Reference Range Interpretation Comments GLUBED (test code = GLUBED) 74 mg/dL 65-110 N [id number] 06:28:00 Test Item Value Reference Range Interpretation Comments GLUBED (test code = GLUBED) 103 mg/dL 65-110 N [id number] 06:28:00 Test Item Value Reference Range Interpretation Comments GLUBED (test code = GLUBED) 76 mg/dL 65-110 N [id number] 22:06:00 Test Item Value Reference Range Interpretation Comments GLUBED (test code = GLUBED) 78 mg/dL 65-110 N [id number] 16:07:00 Test Item Value Reference Range Interpretation Comments GLUBED (test code = GLUBED) 167 mg/dL 65-110 H [id number] 10:42:00 Test Item Value Reference Range Interpretation Comments GLUBED (test code = GLUBED) 130 mg/dL 65-110 H [id number] 04:47:00 Test Item Value Reference Range Interpretation Comments GLUBED (test code = GLUBED) 78 mg/dL 65-110 N [id number] 20:47:00 Test Item Value Reference Range Interpretation Comments GLUBED (test code = GLUBED) 160 mg/dL 65-110 H [id number] 14:52:00 Test Item Value Reference Range Interpretation Comments GLUBED (test code = GLUBED) 235 mg/dL 65-110 H [id number] 10:54:00 Test Item Value Reference Range Interpretation Comments GLUBED (test code = GLUBED) 148 mg/dL 65-110 H [id number] 07:01:00 Test Item Value Reference Range Interpretation Comments GLUBED (test code = GLUBED) 82 mg/dL 65-110 N [id number] 06:05:00 Test Item Value Reference Range Interpretation Comments GLUBED (test code = GLUBED) 61 mg/dL 65-110 L [id number] 20:39:00 Test Item Value Reference Range Interpretation Comments GLUBED (test code = GLUBED) 312 mg/dL 65-110 H GLYCOSYLATED HEMOGLOBIN [id number] 17:32:00 Test Item Value Reference Range Interpretation [...] H (test code = MBG) COMPREHENSIVE METABOLIC [id number] 17:32:00 Test Item Value Reference Range Interpretation [...] considered for these patients. AG HEPATITIS B [id number] 15:30:00 Test Item Value Reference Range Interpretation Comments AG HEPATITIS B SURFACE (test code NONREACTIVE NONREACTIVE = HBSAG) IS CONSENT FORM SIGNED FOR HIV TESTING? YAB HEPATITIS C [id number] 15:30:00 Test Item Value Reference Range Interpretation Comments AB HEPATITIS C (test code = NONREACTIVE NONREACTIVE HCVAB) SIGNAL TO CUTOFF (test code = 0.02 <0.80 N CUTOFF) IS CONSENT FORM SIGNED FOR HIV TESTING? YAB [id number] 15:30:00 Test Item Value Reference Range Interpretation Comments AB TREPONEMA (test code = TREPAB) NONREACTIVE NONREACTIVE IS CONSENT FORM SIGNED FOR HIV TESTING? YAB HIV 1 15:30:00 Test Item Value Reference Range Interpretation Comments AB HIV 1 2 (test NONREACTIVE NONREACTIVE [facility] code = [id number]) 4th Gen HIV Ag/Ab Combo Screen IS CONSENT FORM SIGNED FOR HIV TESTING? [id number] 15:23:00 Test Item Value Reference Range Interpretation Comments GLUBED (test code = GLUBED) 266 mg/dL 65-110 H COVID 19 Asymptomatic IH [id number] 15:16:00 Test Item Value Reference Range Interpretation [...] and/o r diagnosis of CO VID-19 under Jzojbep63 4(b)(1) of the Act, 21 U.S .C. 360bbb-3(b)(1), unless theauthorizatio n is terminated or r evoked sooner. AG HEPATITIS B [id number] 15:08:00 Test Item Value Reference Range Interpretation Comments AG HEPATITIS B SURFACE (test code NONREACTIVE NONREACTIVE = HBSAG) IS CONSENT FORM SIGNED FOR HIV TESTING? YAB HEPATITIS C [id number] 15:08:00 Test Item Value Reference Range Interpretation Comments AB HEPATITIS C (test code = HCVAB) NONREACTIVE SIGNAL TO CUTOFF (test code = CUTOFF) <0.80 IS CONSENT FORM SIGNED FOR HIV TESTING? YAB [id number] 15:08:00 Test Item Value Reference Range Interpretation Comments AB TREPONEMA (test code = TREPAB) NONREACTIVE NONREACTIVE IS CONSENT FORM SIGNED FOR HIV TESTING? YAB HIV 1 15:08:00 Test Item Value Reference Range Interpretation Comments AB HIV 1 2 (test code = XEG95QN) NONREACTIVE IS CONSENT FORM SIGNED FOR HIV TESTING? YUR PROTEIN/CREATININE [id number] 14:46:00 Test Item Value Reference Range Interpretation Comments UR PROTEIN RANDOM (test code = 11.5 mg/dL PROTU) UR CREATININE RANDOM (test 24.6 mg/dL code = CREATU) PROTEIN/CREATININE RATIO (test 460.0 mg/gcrea <200 H code = P/CRATIO) COMPREHENSIVE METABOLIC [id number] 14:38:00 Test Item Value Reference Range Interpretation [...] (HA1C) (test code = GLYHGB) CBC W/AUTO [id number] 14:26:00 Test Item Value Reference Range Interpretation [...] (test NORMAL NORMAL code = PLTMR) - [id number] 06:06:00 [facility] AZLEName: TASHI MOSQUERA : 1995 Sex: F Patient Name: TASHI MOSQUERA Unit No: [id number] EXAMS: CPT CODE: [id number] [place] LTD 13874 STUDY: -US LTD 09/28/2020 5:04 AM Ordering Physician: Cipriano Alex III, MD Patient Name: TASHI MOSQUERA MR: [id number] : 1995; Age: 25 years y/o Female Clinical Indication: with vaginalbleeding. Comparison: 08/05/2020 FINDINGS: Multiple static images from a limited obstetrical ultrasou nd including olguin scale and M-mode imaging are [...] canal measuring 3.8 cm in length. The maternalovaries are not visualized. STRUCTURES Brain: Not evaluated. Spine: Not evaluated. Heart: Not evaluated. heart rate: 137 beats per minute. Kidneys: Not evaluated. Urinary Bladder: Not evaluated. Stomach: Not evaluated. Umbilical Cord: Not evaluated. Cord Insertion: Not evaluated. Extremities: Not evaluated. BIOMETRIC MEASUREMENTS Not performed. IMPRESSION: Single live intrauterine at 27 weeks 3 days as above described. [facility] NAME: TASHI MOSQUERA Radiology Department PHYS: Cipriano Michelle III, MD [address] : 1995 AGE: 25 SEX: F [place], [place] [address] LOC: F.TONY PHONE #: [phone] EXAM DATE: 09/28/2020 STATUS: REG ER FAX #: [phone] RAD NO: Page 1 Signed Report (CONTINUED) Patient Name: TASHI MOSQUERA Unit No: [id number] EXAMS: CPT CODE: [id number] [place] LTD 62144 (Continued) ALEXY 17.8 cm. Trace fluid in the endocervical canal. The structures are not individually characterized on this examination, but no abnormality is demonstrated. GENERAL OBSERVATIONS REGARDING ULTRASOUND: 1. A normal or negative sonogram report should not delay further investigation of a clinically suspicious or abnormal . 2. position or overlap of parts may prevent complete evaluation of thefetus. 3. Congenital and developmental abnormalities are not always sonographically visualized. 4. Repeat sonograms may be necessary depending on the clinical development during . SL: TPAINTER-H at 0606 Reported and signed by: Arpit Jaffe MD CC: Natalie Garcia MD; Cipriano Alex III, MD Technologist: ERICA ZHOU RDMS, RVT Probe:Trnscrbd D/ (06) t.SDR.TP6 Orig Print D/T: S: 09/28/2020 (0609) [facility] NAME: [facility] Radiology Department PHYS: Cipriano Michelle III, MD [address] : 1995 AGE: 25 SEX: F [place] [address] LOC: Saloni.TONY PHONE #: [phone] EX AM DATE: 09/28/2020 STATUS: REG ER FAX #: [phone] RAD NO: Page 2 Signed Report Patient Name: [facility] Unit No: [id number] EXAMS: CPT CODE: [id number] LTD 27066 (Continued) [facility] NAME: [facility] Radiology Department PHYS: Cipriano Michelle III, MD [address] : 1995 AGE: 25 SEX: F [place] [address] LOC: Saloni.TONY PHONE #: [phone] EXAM DATE: 09/28/2020 STATUS: REG ER FAX #: [phone] RAD NO: Page 3 Signed ReportURINALYSIS [id number] 05:32:00 Test Item Value Reference Range Interpretation [...] SEEN Specimen Comment: JOSE ROSALES SAMPLE: CLEAN [id number] 05:29:00 Test Item Value Reference Range Interpretation Comments GLUBED (test code = GLUBED) 91 mg/dL 65-110 N [id number] 14:54:00 Test Item Value Reference Range Interpretation Comments GLUBED (test code = GLUBED) 95 mg/dL 65-110 N [id number] 14:54:00 Test Item Value Reference Range Interpretation Comments GLUBED (test code = GLUBED) 124 mg/dL 65-110 H [id number] 14:54:00 Test Item Value Reference Range Interpretation Comments GLUBED (test code = GLUBED) 131 mg/dL 65-110 H COMPREHENSIVE METABOLIC [id number] 12:46:00 Test Item Value Reference Range Interpretation [...] 44 units/L 46-116 L code = ALKP) [id number] 12:46:00 Test Item Value Reference Range Interpretation Comments PHOSPHOROUS (test code = PHOS) 1.6 mg/dL 2.5-4.9 L [id number] 12:46:00 Test Item Value Reference Range Interpretation Comments MAGNESIUM (test code = MAG) 1.7 mg/dL 1.8-2.4 L CBC W/AUTO [id number] 12:04:00 Test Item Value Reference Range Interpretation [...] REQUIRED (test NORMAL NORMAL code = PLTMR) [id number] 10:33:00 Test Item Value Reference Range Interpretation Comments GLUBED (test code = GLUBED) 136 mg/dL 65-110 H [id number] 10:33:00 Test Item Value Reference Range Interpretation Comments GLUBED (test code = GLUBED) 180 mg/dL 65-110 H COMPREHENSIVE METABOLIC [id number] 07:48:00 Test Item Value Reference Range Interpretation [...] 42 units/L 46-116 L code = ALKP) [id number] 07:48:00 Test Item Value Reference Range Interpretation Comments PHOSPHOROUS (test code = PHOS) 1.6 mg/dL 2.5-4.9 L [id number] 07:48:00 Test Item Value Reference Range Interpretation Comments MAGNESIUM (test code = MAG) 1.6 mg/dL 1.8-2.4 L [id number] 07:06:00 Test Item Value Reference Range Interpretation Comments GLUBED (test code = GLUBED) 184 mg/dL 65-110 H [id number] 06:27:00 Test Item Value Reference Range Interpretation Comments GLUBED (test code = GLUBED) 187 mg/dL 65-110 H COMPREHENSIVE METABOLIC [id number] 05:46:00 Test Item Value Reference Range Interpretation [...] 42 units/L 46-116 L code = ALKP) [id number] 05:46:00 Test Item Value Reference Range Interpretation Comments MAGNESIUM (test code = MAG) 1.6 mg/dL 1.8-2.4 L CBC W/AUTO [id number] 05:34:00 Test Item Value Reference Range Interpretation [...] REQUIRED (test NORMAL NORMAL code = PLTMR) [id number] 05:22:00 Test Item Value Reference Range Interpretation Comments GLUBED (test code = GLUBED) 208 mg/dL 65-110 H [id number] 04:21:00 Test Item Value Reference Range Interpretation Comments GLUBED (test code = GLUBED) 210 mg/dL 65-110 H [id number] 03:22:00 Test Item Value Reference Range Interpretation Comments GLUBED (test code = GLUBED) 229 mg/dL 65-110 H [id number] 02:22:00 Test Item Value Reference Range Interpretation Comments GLUBED (test code = GLUBED) 247 mg/dL 65-110 H [id number] 01:34:00 Test Item Value Reference Range Interpretation Comments GLUBED (test code = GLUBED) 261 mg/dL 65-110 H [id number] 00:21:00 Test Item Value Reference Range Interpretation Comments GLUBED (test code = GLUBED) 276 mg/dL 65-110 H [id number] 23:23:00 Test Item Value Reference Range Interpretation Comments GLUBED (test code = GLUBED) 282 mg/dL 65-110 H [id number] 22:29:00 Test Item Value Reference Range Interpretation Comments GLUBED (test code = GLUBED) 193 mg/dL 65-110 H [id number] 22:29:00 Test Item Value Reference Range Interpretation Comments GLUBED (test code = GLUBED) 172 mg/dL 65-110 H [id number] 22:29:00 Test Item Value Reference Range Interpretation Comments GLUBED (test code = GLUBED) 123 mg/dL 65-110 H [id number] 22:29:00 Test Item Value Reference Range Interpretation Comments GLUBED (test code = GLUBED) 158 mg/dL 65-110 H [id number] 22:29:00 Test Item Value Reference Range Interpretation Comments GLUBED (test code = GLUBED) 192 mg/dL 65-110 H COMPREHENSIVE METABOLIC [id number] 21:00:00 Test Item Value Reference Range Interpretation [...] units/L 46-116 TOTAL (test code = ALKP) [id number] 21:00:00 Test Item Value Reference Range Interpretation Comments PHOSPHOROUS (test code = PHOS) 1.8 mg/dL 2.5-4.9 L [id number] 21:00:00 Test Item Value Reference Range Interpretation Comments MAGNESIUM (test code = MAG) 1.4 mg/dL 1.8-2.4 L OSMOLALITY [id number] 20:51:00 Test Item Value Reference Range Interpretation Comments OSMOLALITY SERUM (test code = 296 mOsm/kg 275-295 H OSMO) OSMOLALITY [id number] 20:51:00 Test Item Value Reference Range Interpretation [...] be considered for these patients. GLYCOSYLATED HEMOGLOBIN [id number] 20:49:00 Test Item Value Reference Range Interpretation [...] H (test code = MBG) CBC W/AUTO [id number] 19:25:00 Test Item Value Reference Range Interpretation [...] NORMAL NORMAL code = PLTMR) VBG IONIZED [id number] 19:21:00 Test Item Value Reference Range Interpretation Comments VBG IONIZED CALCIUM (test code = 1.06 mmol/L 0.9-1.29 N ICAL/VBG) COMPREHENSIVE METABOLIC [id number] 19:09:00 Test Item Value Reference Range Interpretation [...] .BY FNithinLABNithinTTT 09/26. ANION GAP (test code 24.20 10-20 [...] 46-116 N TOTAL (test code = ALKP) [id number] 19:09:00 Test Item Value Reference Range Interpretation Comments PHOSPHOROUS (test code = PHOS) 1.9 mg/dL 2.5-4.9 L [id number] 19:09:00 Test Item Value Reference Range Interpretation Comments MAGNESIUM (test code = MAG) 1.5 mg/dL 1.8-2.4 L [id number] 17:36:00 Test Item Value Reference Range Interpretation Comments GLUBED (test code = GLUBED) 212 mg/dL 65-110 H UR PROTEIN/CREATININE [id number] 17:25:00 Test Item Value Reference Range Interpretation Comments UR PROTEIN RANDOM 56.6 mg/dL (test code = PROTU) UR CREATININE 11.1 mg/dL RANDOM (test code = CREATU) PROTEIN/CREATININE 5090.0 <200 H RESULTS V ERIFIED BY RATIO (test code = mg/gcrea REPEAT AN ALYSISRESULTS P/CRATIO) CALLED TO SASHA DOTSON BACK & CONFIRME D? YESBY F.LAB.TTT 09/26 1725 COMPREHENSIVE METABOLIC [id number] 17:24:00 Test Item Value Reference Range Interpretation [...] 46-116 N TOTAL (test code = ALKP) [id number] 17:24:00 Test Item Value Reference Range Interpretation Comments PHOSPHOROUS (test code = PHOS) 2.9 mg/dL 2.5-4.9 N [id number] 17:24:00 Test Item Value Reference Range Interpretation Comments AMYLASE (test code = CHELSIE) 77 units/L 30-110 N [id number] 17:24:00 Test Item Value Reference Range Interpretation Comments MAGNESIUM (test code = MAG) 1.7 mg/dL 1.8-2.4 L C REACTIVE [id number] 17:08:00 Test Item Value Reference Range Interpretation Comments C REACTIVE PROTEIN (test code = 0.2 mg/dL 0.6-1.2 L CRP) URINALYSIS [id number] 17:00:00 Test Item Value Reference Range Interpretation [...] = MUCU) RARE NONE SEEN CBC W/AUTO [id number] 16:53:00 Test Item Value Reference Range Interpretation [...] NORMAL NORMAL code = PLTMR) COMPREHENSIVE METABOLIC [id number] 13:57:00 Test Item Value Reference Range Interpretation [...] 48 units/L 46-116 N code = ALKP) [id number] 13:57:00 Test Item Value Reference Range Interpretation Comments LIPASE (test code = LIP) 85 units/L 73-393 N ACETONE [id number] 13:57:00 Test Item Value Reference Range Interpretation Comments ACETONE QUAL (test code = ACETNQL) NEGATIVE NEGATIVE BETA [id number] 13:57:00 Test Item Value Reference Range Interpretation Comments BETA HYDROBUTYRATE (test 2.2 mg/dL () Ref erence Range:All code = BETHYD) Ages (fasting ): 0.2 - 2.8Performed At: [facility] [address] [place] [address] [id number] danial Blanton MD Ph:[phone] [id number] 13:24:00 Test Item Value Reference Range Interpretation Comments GLUBED (test code = GLUBED) 169 mg/dL 65-110 H [id number] 11:17:00 Test Item Value Reference Range Interpretation Comments GLUBED (test code = GLUBED) 91 mg/dL 65-110 N [id number] 07:59:00 Test Item Value Reference Range Interpretation Comments GLUBED (test code = GLUBED) 162 mg/dL 65-110 H - US PREG UT [id number] 04:23:00 Patient Name: TASHI MOSQUERA Unit No: [id number] EXAMS: CPT CODE: [id number] US PREG [place] TRANSVAGINAL 10988 STUDY: - US LTD, - US PREG UT TRANSVAGINAL 08/05/2020 12:59 AM Ordering Physician: Shira Arredondo MD Patient Name: TASHI MOSQUERA MR: [id number] : 1995; Age: 25 years y/o Female [...] Not performed Small free pelvic fluid. [facility] NAME: TASHI MOSQUERA Radiology Department PHYS: Natalie Foley MD [address] : 1995 AGE: 25 SEX: F [place], [place] [address] LOC: FNithin2624 A PHONE #: [phone] EXAM DATE: 08/05/2020 STATUS: ADM IN FAX #: [phone] RAD NO: Page 1 Signed Report (CONTINUED) Patient Name: TASHI MOSQUERA Unit No: [id number] EXAMS: CPTCODE: [id number] PREG [place] TRANSVAGINAL 55792 (Continued) IMPRESSION: Single live intrauterine at 19 weeks 5 days. Trace fluid in the endocervical canal. The structures are not individually characterized on this examination, but no abnormality is appreciated. Small free pelvic fluid. L ow-lying posterior grade 1 placenta with tip located [...] on the clinical development during . [facility] at 0423 Reported and signed by: Arpit Jaffe MD CC: Natalie Garcia MD [facility] gist: Charlottecaitlyn Kidd [facility] Probe: [id number] Trnscrbd D/ (042) t.HAYDENR.TP6 Orig Print D/T:S: 08/05/2020 (0426) [facility] NAME: [facility] Radiology Department PHYS: Natalie Foley MD [address] : 1995 AGE: 25 SEX: F [place] [address] LOC: F.2624 A PHONE #: [phone] EXAM DATE: 08/05/2020 STATUS: ADM IN FAX #: [phone] RAD NO: Page 2 Signed Report Patient Name: TASHI MOSQUERA Unit No: [id number] EXAMS: CPT CODE: [id number] US PREG [place] TRANSVAGINAL [address] (Continued) [facility] NAME: [facility] Radiology Department PHYS: Natalie Foley MD [address] : 1995 AGE: 25 SEX: F [id number] LOC: F.2624 A PHONE #: [phone] EXAM DATE: 08/05/2020 STATUS: ADM INFAX #: [phone] RAD NO: Page 3 Signed Report- US [id number] 04:23:00 Patient Name: TASHI MOSQUERA Unit No: [id number] EXAMS: CPT CODE: [id number] [place] LTD 94247 STUDY: - US LTD, - US PREG UT TRANSVAGINAL 08/05/2020 12:59 AM Ordering Physician: Shira Arredondo MD Patient Name: TASHI MOSQUERA MR: [id number] : 1995; Age: 25 years y/o Female Clinical Indication: 19weeks,5 days preg, abd pain Comparison: None FINDINGS: Multiple static images from alimited obstetrical ultrasound including olguin scale and M-mode [...] Not performed Small free pelvic fluid. [facility] NAME: TASHI MOSQUERA Radiology Department PHYS: Shira Truong MD [address] : 1995 AGE: 25 SEX: F [place], [place] [address] LOC: FNithin2624 A PHONE #: [phone] EXAM DATE: 08/05/2020 STATUS: ADM IN FAX #: [phone] RAD NO: Page 1 Signed Report (CONTINUED) Patient Name: TASHI MOSQUERA Unit No: [id number] EXAMS: CPT CODE: [id number] LTD 96976 (Continued) IMPRESSION: Single live intrauterine at 19 [...] Charlotte Kidd RDMS Probe: Trnscrbd D/ (422) JosefinaTP6 Orig Print D/T: S: 08/05/2020 (042) [facility] NAME: [facility] Radiology Department PHYS: Shira Truong MD [address] : 1995 AGE: 25 SEX: F [place] [address] LOC: F.2624 A PHONE #: [phone] EXAM DATE: 08/05/2020 STATUS: ADM IN FAX #: [phone] RAD NO: Page 2 Signed Report [facility] Unit No: [id number] EXAMS: CPT CODE: [id number] LTD 48401 (Continued) [facility] NAME: [facility] Radiology Department PHYS: Shira Truong MD [address] : 1995 AGE: 25 SEX: F [place] [address] LOC: F.2624 A PHONE #: [phone] EXAM DATE: 08/05/2020 STATUS: ADM IN FAX #: [phone] RAD NO: Page 3 Signed ReportARTERIAL BLOOD [id number] 03:03:00 Test Item Value Reference Range Interpretation [...] FIO2 (test code = FIO2A) 21.0 % PaO2/[id number] 03:03:00 Test Item Value Reference Range Interpretation Comments PaO2/FiO2 (test code = EZC6TVQ9) mm/Hg [id number] 03:03:00 Test Item Value Reference Range Interpretation Comments GLUCOSE (test code = GLU/ABG) 201 MG/DL 60-110 H ARTERIAL BLOOD [id number] 03:03:00 Test Item Value Reference Range Interpretation [...] FIO2 (test code = FIO2A) 21.0 % PaO2/[id number] 03:03:00 Test Item Value Reference Range Interpretation Comments PaO2/FiO2 (test code = WHK1DIM0) 471.40 mm/Hg [id number] 03:03:00 Test Item Value Reference Range Interpretation Comments GLUCOSE (test code = GLU/ABG) 201 MG/DL 60-110 H COMPREHENSIVE METABOLIC [id number] 02:23:00 Test Item Value Reference Range Interpretation [...] 48 units/L 46-116 N code = ALKP) [id number] 02:23:00 Test Item Value Reference Range Interpretation Comments LIPASE (test code = LIP) 85 units/L 73-393 N ACETONE [id number] 02:23:00 Test Item Value Reference Range Interpretation Comments ACETONE QUAL (test code = ACETNQL) NEGATIVE NEGATIVE BETA [id number] 02:23:00 Test Item Value Reference Range Interpretation Comments BETA HYDROBUTYRATE (test code = BETHYD) COOXIMETRY [id number] 02:14:00 Test Item Value Reference Range Interpretation Comments HEMOGLOBIN (test code = HGB/ABG) 13.0 g/dL 12-16 N HEMATOCRIT (test code = HCT/ABG) 38 % 37-47 N METHEMOGLOBIN (test code = METHGB) 0.6 % 0.0-1.5 N VENOUS BLOOD [id number] 02:14:00 Test Item Value Reference Range Interpretation [...] code = 21.0 % FIO2V) CBC W/AUTO [id number] 02:00:00 Test Item Value Reference Range Interpretation [...] = PLTMR) UA RFLX MICR CULT IF [id number] 01:47:00 Test Item Value Reference Range Interpretation [...] Suprapubic PainSpecimen Description: CLEAN CATCH COMPREHENSIVE METABOLIC [id number] 01:47:00 Test Item Value Reference Range Interpretation [...] 48 units/L 46-116 N code = ALKP) [id number] 01:47:00 Test Item Value Reference Range Interpretation Comments LIPASE (test code = LIP) 85 units/L 73-393 N ACETONE [id number] 01:47:00 Test Item Value Reference Range Interpretation Comments ACETONE QUAL (test code = ACETNQL) NEGATIVE BETA [id number] 01:47:00 Test Item Value Reference Range Interpretation Comments BETA HYDROBUTYRATE (test code = BETHYD) ISLET CELL AB [id number] 14:36:00 Test Item Value Reference Range Interpretation Comments ISLET CELL AB Refer to individual AUTOVERIFICATION (test Islet Cell Ab code = 2556) and/or Islet Cell Ab Titer results. BLOOD [id number] 00:00:00 Test Item Value Reference Range Interpretation Comments CULTURE (BEAKER) (test No growth in 5 days code = 1095) BLOOD [id number] 00:00:00 Test Item Value Reference Range Interpretation Comments CULTURE (BEAKER) (test No growth in 5 days code = 1095) POCT-GLUCOSE [id number] 12:04:00 Test Item Value Reference Range Interpretation Comments POC-GLUCOSE METER 178 mg/dL 70-110 H TESTED AT [place] [address] ([facility]) (test code = JOHANNY James [facility] 1538) [address] POCT-GLUCOSE [id number] 07:46:00 Test Item Value Reference Range Interpretation Comments POC-GLUCOSE METER 210 mg/dL 70-110 H TESTED AT [place] [address] ([facility]) ([facility] 1538) [address] CBC (HEMOGRAM ONLY)2018-08-23 06:39:00 Test Item Value Reference Range Interpretation Comments WHITE BLOOD CELL COUNT (BEAKER) 4.7 K/ L 3.5-10.5 (test code = 775) RED BLOOD CELL COUNT (BEAKER) 4.38 M/ L 3.93-5.22 (test code = 761) HEMOGLOBIN (BEAKER) (test code = 13.3 GM/DL 11.2-15.7 410) HEMATOCRIT (BEAKER) (test code = 40.2 % 34.1-44.9 411) MEAN CORPUSCULAR VOLUME ([facility]) 91.8 fL 79.4-94.8 (test code = 753) MEAN CORPUSCULAR HEMOGLOBIN 30.4 pg 25.6-32.2 ([facility]) (test code = 751) MEAN CORPUSCULAR HEMOGLOBIN CONC 33.1 GM/DL 32.2-35.5 ([facility]) (test code = 752) RED CELL DISTRIBUTION WIDTH 12.9 % 11.7-14.4 ([facility]) (test code = 412) PLATELET COUNT ([facility]) (test 186 K/CU MM 150-450 code = 756) MEAN PLATELET VOLUME ([facility]) 10.6 fL 9.4-12.3 (test code = 754) NUCLEATED RED BLOOD CELLS 0 /100 WBC 0-0 ([facility]) (test code = 413) POCT-GLUCOSE [id number] 22:06:00 Test Item Value Reference Range Interpretation Comments POC-GLUCOSE METER 157 mg/dL 70-110 H TESTED AT [place] [address] ([facility]) (test code = [facility] 1538) [address] POCT-GLUCOSE [id number] 17:54:00 Test Item Value Reference Range Interpretation Comments POC-GLUCOSE METER 223 mg/dL 70-110 H TESTED AT [place] [address] ([facility]) (test code = [facility] Erika [facility] 1538) [address] POCT-GLUCOSE [id number] 12:06:00 Test Item Value Reference Range Interpretation Comments POC-GLUCOSE METER 227 mg/dL 70-110 H TESTED AT [place] [address] ([facility]) (test code = [facility] 1538) [address] POCT-GLUCOSE [id number] 07:46:00 Test Item Value Reference Range Interpretation Comments POC-GLUCOSE METER 237 mg/dL 70-110 H TESTED AT [place] [address] ([facility]) (test code = [facility] 1538) [address] CBC (HEMOGRAM ONLY)2018-08-22 07:12:00 Test Item Value Reference Range Interpretation Comments WHITE BLOOD CELL COUNT ([facility]) 6.1 K/ L 3.5-10.5 (test code = 775) RED BLOOD CELL COUNT ([facility]) 4.62 M/ L 3.93-5.22 (test code [...] RED CELL DISTRIBUTION WIDTH 13.5 % 11.7-14.4 (AKER) (test code = 412) PLATELET COUNT ([facility]) (test 220 K/CU MM 150-450 code = 756) MEAN PLATELET VOLUME ([facility]) 10.6 fL 9.4-12.3 (test code = 754) NUCLEATED RED BLOOD CELLS 0 /100 WBC 0-0 ([facility]) (test code = 413) POCT-GLUCOSE [id number] 21:37:00 Test Item Value Reference Range Interpretation Comments POC-GLUCOSE METER 264 mg/dL 70-110 H TESTED AT [place] [address] ([facility]) (test code = JOHANNY James [facility] 1538) [address] POCT-GLUCOSE [id number] 17:52:00 Test Item Value Reference Range Interpretation Comments POC-GLUCOSE METER 273 mg/dL 70-110 H TESTED AT [place] [address] ([facility]) (test code = JOHANNY James [facility] 1538) [address] POCT-GLUCOSE [id number] 11:57:00 Test Item Value Reference Range Interpretation Comments POC-GLUCOSE METER 316 mg/dL 70-110 H Notified R Rubén JOHANSEN/TESTED ([facility]) (test code = AT [address] 15[address]) [facility] [address] 0 POCT-GLUCOSE [id number] 07:58:00 Test Item Value Reference Range Interpretation Comments POC-GLUCOSE METER 246 mg/dL 70-110 H TESTED AT [place] [address] ([facility]) (test code = JOHANNY James [facility] 1538) [address] [id number] 07:27:00 Test Item Value Reference Range Interpretation Comments PHOSPHORUS (BEAKER) (test code = 3.3 mg/dL 2.3-4.7 604) [id number] 07:27:00 Test Item Value Reference Range Interpretation Comments MAGNESIUM (BEAKER) (test code = 2.1 mg/dL 1.6-2.6 627) COMPREHENSIVE METABOLIC [id number] 07:27:00 Test Item Value Reference Range Interpretation [...] NOT APPLICABLE FOR DIALYSIS PATIEN TS. CALCIUM, [id number] 07:03:00 Test Item Value Reference Range Interpretation Comments CALCIUM IONIZED (BEAKER) (test 1.12 mmol/L 1.12-1.27 code = 698) PH, BLOOD (BEAKER) (test code = 7.46 1810) CBC W/PLT COUNT & AUTO [id number] 06:38:00 Test Item Value Reference Range Interpretation [...] PERCENT (BEAKER) (test code = 2801) POCT-GLUCOSE [id number] 22:26:00 Test Item Value Reference Range Interpretation Comments POC-GLUCOSE METER 325 mg/dL 70-110 H Notified R N MD/TESTED (BEAKER) (test code = AT [facility] [address] [facility] 1538) [facility] 7703 0 POCT-GLUCOSE [id number] 21:46:00 Test Item Value Reference Range Interpretation Comments POC-GLUCOSE METER 312 mg/dL 70-[address] [facility] [address] (BEAKER) (test [facility] = [facility] 1538) [address] BASIC METABOLIC [id number] 21:39:00 Test Item Value Reference Range Interpretation [...] S NOT APPLICABLE FOR DIALYSIS PATIEN TS. [id number] 19:06:00 Test Item Value Reference Range Interpretation Comments PHOSPHORUS (BEAKER) (test code = 3.3 mg/dL 2.3-4.7 604) [id number] 19:06:00 Test Item Value Reference Range Interpretation Comments MAGNESIUM (BEAKER) (test code = 2.2 mg/dL 1.6-2.6 627) [id number] 17:17:00 Test Item Value Reference Range Interpretation Comments PHOSPHORUS (BEAKER) (test code = 3.3 mg/dL 2.3-4.7 604) [id number] 17:17:00 Test Item Value Reference Range Interpretation Comments MAGNESIUM (BEAKER) (test code = 2.3 mg/dL 1.6-2.6 627) BASIC METABOLIC [id number] 17:17:00 Test Item Value Reference Range Interpretation [...] NOT APPLICABLE FOR DIALYSIS PATIEN TS. POCT-GLUCOSE [id number] 17:15:00 Test Item Value Reference Range Interpretation Comments POC-GLUCOSE METER 86 mg/dL 70-[address] [facility] [address] [facility] (test code = [facility] [address] 1538) POCT-GLUCOSE [id number] 15:29:00 Test Item Value Reference Range Interpretation Comments POC-GLUCOSE METER 176 mg/dL 70-[address] [facility] 67[address] (BEAKER) (test code = [facility] [place] 1538) [address] POCT-GLUCOSE [id number] 14:05:00 Test Item Value Reference Range Interpretation Comments POC-GLUCOSE METER 198 mg/dL 70-[address] [facility] 67[address] (BEAKER) (test code = JOHANNY [place] 1538) [address] POCT-GLUCOSE [id number] 13:02:00 Test Item Value Reference Range Interpretation Comments POC-GLUCOSE METER 148 mg/dL 70-[address] [facility] 67[address] (BEAKER) (test code = [facility] Erika [place] 1538) [address] POCT-GLUCOSE [id number] 12:23:00 Test Item Value Reference Range Interpretation Comments POC-GLUCOSE METER 170 mg/dL 70-[address] [facility] 67[address] (BEAKER) (test code = [facility] Erika [place] 1538) [address] [id number] 11:33:00 Test Item Value Reference Range Interpretation Comments PHOSPHORUS (BEAKER) (test code = 3.1 mg/dL 2.3-4.7 604) [id number] 11:33:00 Test Item Value Reference Range Interpretation Comments MAGNESIUM (BEAKER) (test code = 1.8 mg/dL 1.6-2.6 627) BASIC METABOLIC [id number] 11:33:00 Test Item Value Reference Range Interpretation [...] NOT APPLICABLE FOR DIALYSIS PATIEN TS. KETONE, [id number] 11:26:00 Test Item Value Reference Range Interpretation Comments KETONES, BLOOD (BEAKER) (test code 1.4 mmol/L <0.4 H = 1103) POCT-GLUCOSE [id number] 11:05:00 Test Item Value Reference Range Interpretation Comments POC-GLUCOSE METER 206 mg/dL 70-110 H TESTED AT [place] [address] (BEAKER) (test code = JOHANNY James [facility] 1538) [address] POCT-GLUCOSE [id number] 10:15:00 Test Item Value Reference Range Interpretation Comments POC-GLUCOSE METER 245 mg/dL 70-110 H TESTED AT [place] [address] (BEAKER) (test code = [facility] Erika [facility] 1538) [address] POCT-GLUCOSE [id number] 09:02:00 Test Item Value Reference Range Interpretation Comments POC-GLUCOSE METER 205 mg/dL 70-110 H TESTED AT [place] [address] ([facility] (test code = [facility] Erika [facility] 1538) [address] POCT-GLUCOSE [id number] 07:54:00 Test Item Value Reference Range Interpretation Comments POC-GLUCOSE METER 206 mg/dL 70-110 H TESTED AT [place] [address] ([facility] (test code = [facility] E[place] [facility] 1538) [address] POCT-GLUCOSE [id number] 07:54:00 Test Item Value Reference Range Interpretation Comments POC-GLUCOSE METER 217 mg/dL 70-110 H TESTED AT [place] [address] (BEAKER) (test code = [facility] E[place] [facility] 1538) [address] KETONE, [id number] 07:25:00 Test Item Value Reference Range Interpretation Comments KETONES, BLOOD (BEAKER) (test code 4.3 mmol/L <0.4 H = 1103) [id number] 07:00:00 Test Item Value Reference Range Interpretation Comments PHOSPHORUS (BEAKER) (test code = 2.5 mg/dL 2.3-4.7 604) [id number] 07:00:00 Test Item Value Reference Range Interpretation Comments MAGNESIUM (BEAKER) (test code = 2.0 mg/dL 1.6-2.6 627) BASIC METABOLIC [id number] 07:00:00 Test Item Value Reference Range Interpretation [...] NOT APPLICABLE FOR DIALYSIS PATIEN TS. POCT-GLUCOSE [id number] 06:13:00 Test Item Value Reference Range Interpretation Comments POC-GLUCOSE METER 223 mg/dL 70-110 H TESTED AT [place] [address] ([facility]) (test code = [facility] 1538) [address] POCT-GLUCOSE [id number] 05:20:00 Test Item Value Reference Range Interpretation Comments POC-GLUCOSE METER 224 mg/dL 70-110 H TESTED AT [place] [address] ([facility]) (test code = [facility] 1538) [address] POCT-GLUCOSE [id number] 04:08:00 Test Item Value Reference Range Interpretation Comments POC-GLUCOSE METER 165 mg/dL 70-110 H TESTED AT [place] [address] ([facility]) (test code = [facility] 1538) [address] POCT-GLUCOSE [id number] 03:25:00 Test Item Value Reference Range Interpretation Comments POC-GLUCOSE METER 130 mg/dL 70-110 H TESTED AT [place] [address] ([facility]) (test code = [facility] 1538) [address] [id number] 02:50:00 Test Item Value Reference Range Interpretation Comments PROCALCITONIN ([facility] (test code 2.96 ng/mL <0.05 H = 3036) SEPSIS RISK (ng/mL)Low: 0.05-0.50Intermediate: 0.51-2.00High: >=2.01KETONE, [id number] 02:15:00 Test Item Value Reference Range Interpretation Comments KETONES, BLOOD (BEAKER) (test code 3.1 mmol/L <0.4 H = 1103) POCT-GLUCOSE [id number] 02:13:00 Test Item Value Reference Range Interpretation Comments POC-GLUCOSE METER 153 mg/dL 70-[address] [facility] 67[address] (BEAKER) (test code = J[place]ANNY [place] 1538) [address] [id number] 02:01:00 Test Item Value Reference Range Interpretation Comments PHOSPHORUS (BEAKER) (test code = 2.4 mg/dL 2.3-4.7 604) [id number] 02:01:00 Test Item Value Reference Range Interpretation Comments MAGNESIUM (BEAKER) (test code = 2.1 mg/dL 1.6-2.6 627) BASIC METABOLIC [id number] 02:01:00 Test Item Value Reference Range Interpretation [...] S NOT APPLICABLE FOR DIALYSIS PATIEN TS. [id number] 02:01:00 Test Item Value Reference Range Interpretation Comments AMYLASE (BEAKER) (test code = 349) 129 U/L 25-125 H [id number] 02:01:00 Test Item Value Reference Range Interpretation [...] 0-0 (BEAKER) (test code = 413) POCT-GLUCOSE [id number] 01:05:00 Test Item Value Reference Range Interpretation Comments POC-GLUCOSE METER 171 mg/dL 70-[address] [facility] 67 (BEAKER) (test code = JOHANNY [place] 1538) [address] POCT-GLUCOSE [id number] 00:32:00 Test Item Value Reference Range Interpretation Comments POC-GLUCOSE METER 171 mg/dL 70-[address] [facility] 67[address] (BEAKER) (test code = JOHANNY [place] 1538) [address] POCT-GLUCOSE [id number] 23:15:00 Test Item Value Reference Range Interpretation Comments POC-GLUCOSE METER 177 mg/dL 70-[address] [facility] 67[address] (BEAKER) (test code = JOHANNY [place] 1538) [address] POCT-GLUCOSE [id number] 22:16:00 Test Item Value Reference Range Interpretation Comments POC-GLUCOSE METER 170 mg/dL 70-[address] [facility] 67[address] (BEAKER) (test code = JOHANNY [place] 1538) [address] POCT-GLUCOSE [id number] 22:16:00 Test Item Value Reference Range Interpretation Comments POC-GLUCOSE METER 191 mg/dL 70-[address] [facility] 67[address] (BEAKER) (test code = JOHANNY [place] 1538) [address] KETONE, [id number] 20:49:00 Test Item Value Reference Range Interpretation Comments KETONES, BLOOD (BEAKER) (test code 3.2 mmol/L <0.4 H = 1103) [id number] 20:46:00 Test Item Value Reference Range Interpretation Comments PHOSPHORUS (BEAKER) (test code = 2.2 mg/dL 2.3-4.7 L 604) [id number] 20:46:00 Test Item Value Reference Range Interpretation Comments MAGNESIUM (BEAKER) (test code = 2.2 mg/dL 1.6-2.6 627) BASIC METABOLIC [id number] 20:46:00 Test Item Value Reference Range Interpretation [...] APPLICABLE FOR DIALYSIS PATIEN TS. BLOOD GAS, [id number] 20:29:00 Test Item Value Reference Range Interpretation [...] (test code = 1819) 21.0 % POCT-GLUCOSE [id number] 20:09:00 Test Item Value Reference Range Interpretation Comments POC-GLUCOSE METER 219 mg/dL 70-[address] [facility] [address] ([facility] (test code = JOHANNY [place] 1538) [address] POCT-GLUCOSE [id number] 18:58:00 Test Item Value Reference Range Interpretation Comments POC-GLUCOSE METER 248 mg/dL 70-[address] 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 Signed: Arpit Smith MDRjunior Verified Date/Time: 08/19/2018 18:36:40 Reading Location: [facility] Radiology Reading RoomAddendum EndsFINAL REPORT CTA [...] Verified Date/Time: 08/19/2018 13:33:21 Reading Locati on: [facility] Radiology Reading Room RAD, MANDIBLE, LESS THAN 4 [id number] 18:35:00Reason for exam:->dysarthria, fallFINAL REPORT Mandible 6 [...] Smith Verified Date/Time: 08/19/2018 18:35:55 Reading Location: [facility] Radiology Reading Room POCT-GLUCOSE [id number] 18:22:00 Test Item Value Reference Range Interpretation Comments POC-GLUCOSE METER 222 mg/dL 70-[address] [facility] [address] (BEAKER) (test code = JOHANNY James [place] 1538) [address] POCT-GLUCOSE [id number] 16:58:00 Test Item Value Reference Range Interpretation Comments POC-GLUCOSE METER 277 mg/dL 70-[address] [facility] [address] (BEAKER) (test code = JOHANNY James [place] 1538) [address] [id number] 16:12:00 Test Item Value Reference Range Interpretation Comments PHOSPHORUS (BEAKER) (test code = 2.9 mg/dL 2.3-4.7 604) [id number] 16:12:00 Test Item Value Reference Range Interpretation Comments MAGNESIUM (BEAKER) (test code = 1.7 mg/dL 1.6-2.6 627) BASIC METABOLIC [id number] 16:12:00 Test Item Value Reference Range Interpretation [...] NOT APPLICABLE FOR DIALYSIS PATIEN TS. KETONE, [id number] 15:46:00 Test Item Value Reference Range Interpretation Comments KETONES, BLOOD (BEAKER) (test code 6.0 mmol/L <0.4 H = 1103) POCT-GLUCOSE [id number] 15:18:00 Test Item Value Reference Range Interpretation Comments POC-GLUCOSE METER 322 mg/dL 70-110 H Will Repea t Test/TESTED (MARTÍN) (test code = AT [facility] [address] 1538) [place] [address] POCT-GLUCOSE [id number] 14:27:00 Test Item Value Reference Range Interpretation Comments POC-GLUCOSE METER 232 mg/dL 70-[address] [facility] [address] ([facility] (test code = JOHANNY James [facility] 1538) [address] POCT-GLUCOSE [id number] 13:05:00 Test Item Value Reference Range Interpretation Comments POC-GLUCOSE METER 240 mg/dL 70-[address] [facility] [address] ([facility]) (test code = JOHANNY James [facility] 1538) [address] POCT-GLUCOSE [id number] 12:16:00 Test Item Value Reference Range Interpretation Comments POC-GLUCOSE METER 201 mg/dL 70-[address] [facility] [address] ([facility]) (test code = JOHANNY James [facility] 1538) [address] CT, [id number] 11:46:00FINAL REPORT INDICATION:23-year-old female with abdominal pain. [...] No evidence of pancreatitis. Signed: Mally Yoo Verified Date/Time: 08/19/2018 11:46:24 Reading Location: [facility] Diagnostic Imaging Reading Room - [place] [address] BASIC METABOLIC PANEL 2018-08-19 11:17:00 Test Item [...] GFR I S NOT APPLICABLE FOR DIALYSIS PATIYAN TS. [id number] 11:12:00 Test Item Value Reference Range Interpretation Comments PHOSPHORUS (BEAKER) (test code = 3.8 mg/dL 2.3-4.7 604) POCT-GLUCOSE [id number] 10:49:00 Test Item Value Reference Range Interpretation Comments POC-GLUCOSE METER 172 mg/dL 70-[address] [facility] [address] (BEAKER) (test code = JOHANNY [place] 1538) [address] KETONE, [id number] 10:37:00 Test Item Value Reference Range Interpretation Comments KETONES, BLOOD (BEAKER) (test code 4.2 mmol/L <0.4 H = 1103) HEMOGLOBIN [id number] 10:29:00 Test Item Value Reference Range Interpretation Comments HEMOGLOBIN A1C (BEAKER) (test code = 15.3 % 4.3-6.1 H 368) BLOOD GAS, [id number] 10:23:00 Test Item Value Reference Range Interpretation [...] (test code = 1819) 21.0 % POCT-GLUCOSE [id number] 10:02:00 Test Item Value Reference Range Interpretation Comments POC-GLUCOSE METER 145 mg/dL 70-[address] [facility] [address] (BEAKER) (test [facility] 1538) [address] POCT-GLUCOSE [id number] 09:04:00 Test Item Value Reference Range Interpretation Comments POC-GLUCOSE METER 168 mg/dL 70-110 H TESTED AT [place] [address] ([facility] (test code = [facility] [place] 1538) [address] POCT-GLUCOSE [id number] 07:47:00 Test Item Value Reference Range Interpretation Comments POC-GLUCOSE METER 187 mg/dL 70-110 H TESTED AT [place] [address] ([facility]) (test code = [facility] 1538) [address] BLOOD GAS, [id number] 07:14:00 Test Item Value Reference Range Interpretation [...] code = 1819) 21.0 % BASIC METABOLIC [id number] 07:13:00 Test Item Value Reference Range Interpretation [...] S NOT APPLICABLE FOR DIALYSIS PATIEN TS. [id number] 07:11:00 Test Item Value Reference Range Interpretation Comments MAGNESIUM (BEAKER) (test code = 2.0 mg/dL 1.6-2.6 627) POCT-GLUCOSE [id number] 07:09:00 Test Item Value Reference Range Interpretation Comments POC-GLUCOSE METER 183 mg/dL 70-[address] [facility] ([facility]) (test code = JOHANNY James [facility] 1538) [id number] POCT-GLUCOSE [id number] 06:19:00 Test Item Value Reference Range Interpretation Comments POC-GLUCOSE METER 185 mg/dL 70-[address] [facility] [address] (BEAKER) (test code = JOHANNY James [facility] 1538) [address] POCT-GLUCOSE [id number] 05:05:00 Test Item Value Reference Range Interpretation Comments POC-GLUCOSE METER 223 mg/dL 70-[address] [facility] [address] (BEAKER) (test code = JOHANNY James [facility] 1538) [address] POCT-GLUCOSE [id number] 04:17:00 Test Item Value Reference Range Interpretation Comments POC-GLUCOSE METER 235 mg/dL 70-110 H TESTED AT [place] [address] (BEAKER) (test code = JOHANNY DUNN [place] 1538) [address] [id number] 04:07:00 Test Item Value Reference Range Interpretation Comments PROCALCITONIN (BEAKER) (test code 6.19 ng/mL <0.05 H = 3036) SEPSIS RISK (ng/mL)Low: 0.05-0.50Intermediate: 0.51-2.00High: >=2.01 [id number] 04:03:00 Test Item Value Reference Range Interpretation Comments PHOSPHORUS (BEAKER) (test code = 1.4 mg/dL 2.3-4.7 LL 604) BASIC METABOLIC [id number] 04:00:00 Test Item Value Reference Range Interpretation [...] APPLICABLE FOR DIALYSIS PATIEN TS. BASIC METABOLIC [id number] 04:00:00 Test Item Value Reference Range Interpretation [...] APPLICABLE FOR DIALYSIS PATIEN TS. BLOOD GAS, [id number] 03:52:00 Test Item Value Reference Range Interpretation [...] 70 pg/mL 0-100 (test code = 700) [id number] 03:43:00 Test Item Value Reference Range Interpretation Comments MAGNESIUM (BEAKER) (test code = 2.1 mg/dL 1.6-2.6 627) [id number] 03:43:00 Test Item Value Reference Range Interpretation Comments AMYLASE (BEAKER) (test code = 349) 566 U/L 25-125 H [id number] 03:43:00 Test Item Value Reference Range Interpretation Comments LIPASE (BEAKER) (test code = 749) 124 U/L 8-78 H C-REACTIVE [id number] 03:43:00 Test Item Value Reference Range Interpretation Comments C-REACTIVE PROTEIN (BEAKER) (test 5.56 mg/dL 0.00-0.50 H code = 676) KETONE, [id number] 03:23:00 Test Item Value Reference Range Interpretation [...] 0-0 (BEAKER) (test code = 413) POCT-GLUCOSE [id number] 03:17:00 Test Item Value Reference Range Interpretation Comments POC-GLUCOSE METER 251 mg/dL 70-[address] [facility] 6720 (BEAKER) (test code = JOHANNY KIL[place]ORE 1538) [address] OSMOLALITY, [id number] 02:24:00 Test Item Value Reference Range Interpretation Comments OSMOLALITY URINE (BEAKER) (test 599 mOsm/kg 40-1400 code = 614) POCT-GLUCOSE [id number] 02:16:00 Test Item Value Reference Range Interpretation Comments POC-GLUCOSE METER 288 mg/dL 70-[address] [facility] 6720 (BEAKER) (test code = JOHANNY James [place] 1538) [address] KETONE, [id number] 01:49:00 Test Item Value Reference Range Interpretation Comments KETONES, BLOOD (BEAKER) (test code 6.1 mmol/L <0.4 H = 1103) POCT-GLUCOSE [id number] 01:13:00 Test Item Value Reference Range Interpretation Comments POC-GLUCOSE METER 254 mg/dL 70-[address] [facility] 6720 (BEAKER) (test code = JOHANNY James [place] 1538) [address] BLOOD GAS, [id number] 01:10:00 Test Item Value Reference Range Interpretation [...] (test code = 1819) 21.0 % POCT-GLUCOSE [id number] 00:05:00 Test Item Value Reference Range Interpretation Comments POC-GLUCOSE METER 288 mg/dL 70-[address] [facility] 6720 (BEAKER) (test code = JOHANNY James [place] 1538) [address] BASIC METABOLIC [id number] 23:16:00 Test Item Value Reference Range Interpretation [...] NOT APPLICABLE FOR DIALYSIS PATIEN TS. OSMOLALITY, [id number] 23:03:00 Test Item Value Reference Range Interpretation Comments OSMOLALITY, SERUM (BEAKER) (test 342 mOsm/kg 275-295 H code = 615) [id number] 23:02:00 Test Item Value Reference Range Interpretation Comments PHOSPHORUS (BEAKER) (test code = 1.1 mg/dL 2.3-4.7 LL 604) [id number] 23:00:00 Test Item Value Reference Range Interpretation Comments MAGNESIUM (BEAKER) (test code = 2.1 mg/dL 1.6-2.6 627) CALCIUM, [id number] 22:47:00 Test Item Value Reference Range Interpretation [...] (BEAKER) (test code = 413) BLOOD GAS, [id number] 22:46:00 Test Item Value Reference Range Interpretation [...] (test code = 1819) 21.0 % KETONE, [id number] 22:46:00 Test Item Value Reference Range Interpretation Comments KETONES, BLOOD (BEAKER) (test code 5.6 mmol/L <0.4 H = 1103) RAD, CHEST, 1 VIEW, NON [id number] 22:44:00Reason for exam:->central line Should this be [...] MDReport Verified Date/Time: 08/18/2018 22:44:52 Reading Location: [address] Reading Room POCT-GLUCOSE [id number] 22:34:00 Test Item Value Reference Range Interpretation Comments POC-GLUCOSE METER 259 mg/dL 70-[address] [facility] 6720 (BEAKER) (test code = JOHANNY James [place] 1538) [address] CHLORIDE, RANDOM [id number] 22:28:00 Test Item Value Reference Range Interpretation Comments CHLORIDE URINE (BEAKER) (test code = 88 meq/L 682) Reference Range: No NormalsCREATININE, RANDOM [id number] 22:28:00 Test Item Value Reference Range Interpretation Comments CREATININE URINE (BEAKER) (test 12.5 mg/dL code = 375) Reference Range: No NormalsSODIUM, RANDOM [id number] 22:28:00 Test Item Value Reference Range Interpretation Comments SODIUM URINE (BEAKER) (test code = 143 meq/L 243) Reference Range: No NormalsUREA NITROGEN, RANDOM [id number] 22:28:00 Test Item Value Reference Range Interpretation Comments UREA NITROGEN URINE (BEAKER) (test 154 mg/dL code = 538) Reference Range: No NormalsOSMOLALITY, [id number] 21:53:00 Test Item Value Reference Range Interpretation Comments OSMOLALITY URINE (BEAKER) (test 546 mOsm/kg 40-1400 code = 614) BASIC METABOLIC [id number] 21:07:00 Test Item Value Reference Range Interpretation [...] S NOT APPLICABLE FOR DIALYSIS PATIEN TS. [id number] 21:07:00 Test Item Value Reference Range Interpretation Comments PHOSPHORUS (BEAKER) < mg/dL 2.3-4.7 LL Specimen slightly (test code = 604) hemolyzed POCT-GLUCOSE [id number] 21:06:00 Test Item Value Reference Range Interpretation Comments POC-GLUCOSE METER 381 mg/dL 70-110 H TESTED AT [place] [address] ([facility]) (test code = [facility] Erika [facility] 1538) [address] POCT-GLUCOSE [id number] 21:06:00 Test Item Value Reference Range Interpretation Comments POC-GLUCOSE METER 437 mg/dL 70-110 HH TESTED AT [place] [address] ([facility]) (test [facility] 1538) [address] [id number] 21:05:00 Test Item Value Reference Range Interpretation Comments LIPASE (BEAKER) (test code = 749) 138 U/L 8-78 H [id number] 21:05:00 Test Item Value Reference Range Interpretation Comments AMYLASE (BEAKER) (test code = 349) 669 U/L 25-125 H [id number] 21:04:00 Test Item Value Reference Range Interpretation [...] is 2.5-3.5 for patients with mechanical heart valves.[id number] 21:04:00 Test Item Value Reference Range Interpretation Comments MAGNESIUM (BEAKER) 2.2 mg/dL 1.6-2.6 Specimen slightly (test code = 627) hemolyzed BLOOD GAS, [id number] 21:00:00 Test Item Value Reference Range Interpretation [...] (test code = 1819) 21.0 % HEMOGLOBIN [id number] 21:00:00 Test Item Value Reference Range Interpretation Comments HEMOGLOBIN A1C (BEAKER) (test code = 15.7 % 4.3-6.1 H 368) CT BRAIN WITHOUT IV CONTRAST - [id number] 20:04:00Reason for exam:- >r/o bleedFINAL REPORT CT [...] YO [facility] Reading Room POCT-GLUCOSE [id number] 19:21:00 Test Item Value Reference Range Interpretation Comments POC-GLUCOSE METER 425 mg/dL 70-[address] [facility] 6720 (BEAKER) (test code = JOHANNY James [facility] 1538) [address] [id number] 18:52:00 Test Item Value Reference Range Interpretation Comments PHOSPHORUS (BEAKER) (test code = 604) < mg/dL 2.3-4.7 LL If last glucose was less than 500, may do bedside glucose instead of serum glucose.RAPID DRUG SCREEN, [id number] 18:52:00 Test Item Value Reference Range Interpretation [...] situations. Chain of custody not maintained. Some rohe-bul-qoggxuh medications, as well as adulterants, may cause inaccurate results. Clinical correlation should be applied. A more comprehensive drug screen or confirmation of a detected drug may be performed upon request.BASIC METABOLIC [id number] 18:51:00 Test Item Value Reference Range Interpretation [...] may do bedside glucose instead of serum glucose.[id number] 18:48:00 Test Item Value Reference Range Interpretation Comments MAGNESIUM (BEAKER) (test code = 2.1 mg/dL 1.6-2.6 627) If last glucose was less than 500, may do bedside glucose instead of serum glucose.KETONE, [id number] 18:45:00 Test Item Value Reference Range Interpretation Comments KETONES, BLOOD (BEAKER) (test code 5.2 mmol/L <0.4 H = 1103) [id number] 18:43:00 Test Item Value Reference Range Interpretation [...] 514) SOURCE(BEAKER) (test code = 2795) SCREEN, [id number] 18:35:00 Test Item Value Reference Range Interpretation Comments TEST URINE (BEAKER) (test Negative code = 583) BLOOD GAS, [id number] 18:32:00 Test Item Value Reference Range Interpretation [...] (BEAKER) (test code = 1819) 21.0 % [id number] 18:16:00 Test Item Value Reference Range Interpretation Comments FIBRINOGEN LEVEL 331 mg/dl 225-434 Sample clot olga, [facility] (test code = notifi ed RN badge 658) #[id number] for recollect. [id number] 18:16:00 Test Item Value Reference Range Interpretation Comments D-DIMER QUANTITATIVE 0.64 MG/L FEU <0.50 H Sample is clotted, ([facility] (test code = notif ed RN badge 671) #[id number] for recollect.This is a corrected result. Previou [...] of thrombosis is within 95-100% range.POCT- GLUCOSE [id number] 18:05:00 Test Item Value Reference Range Interpretation Comments POC-GLUCOSE METER > mg/dL 70-110 HH OUTSIDE ME ASURING (BEAKER) (test code RANGETES OLGA AT [facility] 6720 = 1538) [facility] [address] [id number] 18:01:00 Test Item Value Reference Range Interpretation Comments PROCALCITONIN (BEAKER) (test code 3.19 ng/mL <0.05 H = 3036) SEPSIS RISK (ng/mL)Low: 0.05-0.50Intermediate: 0.51-2.00High: >=2.01CREATINE KINASE (CK), TOTAL AND [id number] 17:50:00 Test Item Value Reference Range Interpretation Comments CREATINE KINASE TOTAL (BEAKER) 54 U/L 29-200 (test code = 380) CREATINE KINASE-MB (BEAKER) (test 1.6 ng/mL 0.0-6.6 code = 750) CREATINE KINASE-MB INDEX (BEAKER) 3.0 % (test code = 395) CK-MB Reference Range:<6.7 Normal6.7-10.0 Borderline>10.0 AbnormalTROPONIN [id number] 17:50:00 Test Item Value Reference Range Interpretation [...] 0-100 (test code = 700) COMPREHENSIVE METABOLIC [id number] 17:48:00 Test Item Value Reference Range Interpretation [...] S NOT APPLICABLE FOR DIALYSIS PATIEN TS. [id number] 17:47:00 Test Item Value Reference Range Interpretation Comments LIPASE (BEAKER) (test code = 749) 329 U/L 8-78 H [id number] 17:47:00 Test Item Value Reference Range Interpretation Comments AMYLASE (BEAKER) (test code = 349) 563 U/L 25-125 H LACTATE DEHYDROGENASE (LDH)[id number] 17:47:00 Test Item Value Reference Range Interpretation Comments LACTATE DEHYDROGENASE (BEAKER) (test 255 U/L 125-220 H code = 635) C-REACTIVE [id number] 17:47:00 Test Item Value Reference Range Interpretation Comments C-REACTIVE PROTEIN (BEAKER) (test 1.35 mg/dL 0.00-0.50 H code = 676) LACTIC ACID, VENOUS, WHOLE [id number] 17:41:00 Test Item Value Reference Range Interpretation Comments LACTATE BLOOD VENOUS 2.0 mmol/L 0.5-2.2 Specime n markedly (2) (BEAKER) (test hemolyzed code = 2872) Effective 03/06/2016: Units/Reference Range ChangeNew: 0.5-2.2 mmol/L Previous: 5- 20 mg/dLPOCT-LACTIC ACID, [id number] 17:13:00 Test Item Value Reference Range Interpretation Comments POC-LACTIC ACID, 1.9 mmol/L 0.4-1.3 H TESTED AT [facility] 6720 ARTERIAL (BEAKER) [place] (test code = 2804) [address] POCT-BLOOD GASES, [id number] 17:13:00 Test Item Value Reference Range Interpretation Comments TEMP, CELSIUS-POC 37.0 (BEAKER) (test code = 1834) FIO2-POC (BEAKER) TESTED AT [place] [address] (test code = 1835) [place] [facility] [address] PH, ARTERIAL-POC 7.069 7.350-7.450 LL (BEAKER) (test [...] L ARTERIAL-POC (BEAKER) (test code = 1841) [id number] 17:13:00 Test Item Value Reference Range Interpretation Comments POC-SODIUM (BEAKER) 150 meq/L 135-148 H TESTED A T [place] [address] (test code = 1542) [place] [facility] [address] [id number] 17:13:00 Test Item Value Reference Range Interpretation Comments POC-POTASSIUM 2.4 meq/L 3.6-5.5 LL TESTED AT [facility] 6720 (BEAKER) (test code [facility] [address] = 1540) [id number] 17:13:00 Test Item Value Reference Range Interpretation Comments POC-GLUCOSE (BEAKER) 685 mg/dL 70-110 HH TESTED AT [place] [address] (test code = 1855) [place] [address] POCT-CALCIUM [id number] 17:13:00 Test Item Value Reference Range Interpretation Comments POC-CALCIUM IONIZED 1.24 mmol/L 1.12-1.27 TESTED A T [place] [address] ([facility]) (test code = JOHANNY James [facility] 3173) [address] [id number] 17:13:00 Test Item Value Reference Range Interpretation Comments POC-HEMATOCRIT 40 % 36-45 TESTED AT [place] [address] ([facility]) (test code = [facility] Erika [facility] [address] 2508) [id number] 17:13:00 Test Item Value Reference Range Interpretation Comments POC-HEMOGLOBIN 13.6 g/dL 12.0-15.0 TESTED AT [place] [address] ([facility]) (test code [facility] = 8840) [id number] AT [place] [address] [place] [facility] [address] POCT-GLUCOSE [id number] 17:07:00 Test Item Value Reference Range Interpretation Comments POC-GLUCOSE METER > mg/dL 70-110 HH OUTSIDE SC ASURING ([facility]) (test code RANGETES OLGA AT [place] [address] = 1538) [facility] [address]
[2023-03-09] MEDS ORDERED: NA CHLORIDE 0.9% 1,000 ML ONE ×2 (19:16→20:23)
--- NOTE | 2023-03-09 19:38 | RAD REPORT ---
EXAM DESCRIPTION: Estephania Single View03/09/2023 7:32 pm CLINICAL HISTORY: Hyperglycemia. Not feeling well COMPARISON: January 2023 FINDINGS: The lungs appear clear of acute infiltrate. The heart is normal size IMPRESSION: No acute abnormalities displayed
[2023-03-09 19:46] LABS: Absolute Lymphocytes (CBC) 1.7 K/uL (0.7-4.9); Hematocrit 44.3 % (36.0-45.0); Lymphocytes % 21.8 % (15.3-44.8); MPV 7.9 fL (7.6-11.3); RBC Red Blood Cell Count 4.87 M/uL (3.86-4.86)
[2023-03-09 19:49] LABS: Specific Gravity 1.022 (1.005-1.030); Urine Bilirubin NEGATIVE (Negative); Urine Blood Negative (Negative); Urine Clarity Clear (Clear); Urine Color Colorless (Yellow); Urine Glucose 4+ (Over) (Negative); Urine Protein NEGATIVE (Negative); Urine Urobilinogen Normal (Normal)
[2023-03-09 19:59] LABS: Protime INR 0.92
[2023-03-09 20:07] LABS: Albumin 3.9 g/dL (3.4-5.0); Bilirubin Total 0.7 mg/dL (0.2-1.0); Potassium 3.7 mEq/L (3.5-5.1); Protein, Total 8.2 g/dL (6.4-8.2)
[2023-03-09] MEDS ORDERED: NA CHLORIDE 0.9% 100 ML ONE (20:43)
[2023-03-09] MEDS ORDERED: INSULIN -REGULAR HUMAN 50 UNIT/0.5 ML ML ONE (20:43)
--- NOTE | 2023-03-09 20:50 | ER ---
Nurse's Notes [facility] Name: Rosalie Parekh Age: 27 yrs Sex: Female : 1995 Arrival Date: 03/09/2023 Time: 18:36 Bed 14 Private MD: Diagnosis: Diabetes mellitus due to underlying condition with ketoacidosis without coma Presentation: 03/09 18:42 Chief complaint: EMS states: Patients blood sugar has been running high all day. kr3 Started out in the 200's this morning and has increased throughout the day. Patient has taken both short acting and long acting. The last time she took the short acting was 1715 and she took 15 units. Coronavirus screen: Vaccine status: Patient reports being unvaccinated. Ebola Screen: Patient denies travel to an Ebola-affected area in the 21 days before illness onset. Initial Sepsis Screen: Does the patient meet any 2 criteria? No. Patient's initial sepsis screen is negative. Does the patient have a suspected source of infection? No. Patient's initial sepsis screen is negative. Risk Assessment: Do you want to hurt yourself or someone else? Patient reports no desire to harm self or others. Onset of symptoms was March 09, 2023. 18:42 Method Of Arrival: EMS: [facility] kr3 18:42 Acuity: TANYA 3 kr3 Triage Assessment: 18:47 General: Appears in no apparent distress. comfortable, Behavior is calm, cooperative, kr3 appropriate for age. Pain: Denies pain. EENT: No signs and/or symptoms were reported regarding the EENT system. Neuro: Level of Consciousness is awake, alert, obeys commands, Oriented to person, place, time, situation. Cardiovascular: Patient's skin is warm and dry. Respiratory: Airway is patent Respiratory effort is even, unlabored, Respiratory pattern is regular, symmetrical. GI: No signs and/or symptoms were reported involving the gastrointestinal system. : No signs and/or symptoms were reported regarding the genitourinary system. Derm: No signs and/or symptoms reported regarding the dermatologic system. Musculoskeletal: No signs and/or symptoms reported regarding the musculoskeletal system. Historical: - Home Meds: 18:46 Novolog subcutaneous Sub-Q [Active]; kr3 - PMHx: 18:46 Anxiety; kr3 18:54 Diabetes mellitus; kr3 - Immunization history:: Adult Immunizations not up to date. - Social history:: Smoking status: Reported history of juuling and/or vaping. Screenin:41 [facility] ED Fall Risk Assessment (Adult) History of falling in the last 3 months, lg3 including since admission No falls in past 3 months (0 pts). Abuse screen: Denies threats or abuse. Denies injuries from another. Nutritional screening: No deficits noted. Tuberculosis screening: No symptoms or risk factors identified. Assessment: 21:41 General: Appears in no apparent distress. comfortable, Behavior is calm, cooperative. lg3 Pain: Complains of pain in head Pain does not radiate. Pain currently is 3 out of 10 on a pain scale. Neuro: No deficits noted. Ramon Agitation-Sedation Scale (RASS): 0 - Alert and Calm Level of Consciousness is awake, alert, obeys commands, Oriented to person, place, time, situation. Cardiovascular: No deficits noted. Denies chest pain, shortness of breath, Capillary refill < 3 seconds Clubbing of nail beds is absent JVD is absent Patient's skin is warm and dry. Respiratory: No deficits noted. Airway is patent Trachea midline Respiratory effort is even, unlabored, Respiratory pattern is regular, symmetrical. GI: No deficits noted. No signs and/or symptoms were reported involving the gastrointestinal system. Abdomen is flat, non-distended. : No deficits noted. No signs and/or symptoms were reported regarding the genitourinary system. EENT: No deficits noted. No signs and/or symptoms were reported regarding the EENT system. Derm: No deficits noted. No signs and/or symptoms reported regarding the dermatologic system. Skin is intact, is healthy with good turgor, Skin is dry, Skin is normal, Skin temperature is warm. Musculoskeletal: No deficits noted. No signs and/or symptoms reported regarding the musculoskeletal system. Circulation, motion, and sensation intact. Range of motion: intact in all extremities. 22:44 Reassessment: Patient appears in no apparent distress at this time. No changes from lg3 previously documented assessment. Patient and/or family updated on plan of care and expected duration. Pain level reassessed. Patient is alert, oriented x 3, equal unlabored respirations, skin warm/dry/pink. Patient denies pain at this time. Patient states feeling better. Patient states symptoms have improved. 03/10 00:51 Reassessment: Patient appears in no apparent distress at this time. No changes from lg3 previously documented assessment. Patient and/or family updated on plan of care and expected duration. Pain level reassessed. Patient is alert, oriented x 3, equal unlabored respirations, skin warm/dry/pink. Patient denies pain at this time. Vital Signs: 03/09 18:42 BP 139 / 98; Pulse 94; Resp 17; Temp 99.1; Pulse Ox 100% on R/A; Weight 72.57 kg; kr3 Height 5 ft. 2 in. ; Pain 0/10; 21:41 BP 126 / 85; Pulse 94; Resp 18 S; Pulse Ox 100% on R/A; lg3 03/10 00:51 BP 118 / 77; Pulse 94; Resp 17 S; Pulse Ox 100% on R/A; lg3 03/09 18:42 Body Mass Index 29.26 (72.57 kg, 157.48 cm) kr3 03/09 18:42 Pain Scale: Adult kr3 ED Course: 03/09 18:38 Patient arrived in ED. kr3 18:42 Nenita Milian, MURTAZA is Primary Nurse. kr3 18:46 Triage completed. kr3 18:48 Arm band placed on right wrist. Patient placed in an exam room, on a stretcher. kr3 18:50 [facility] Patricia [facility]C [facility]. snw 18:51 Klaus Roland MD is Attending Physician. snw 19:26 Acetone, Serum Sent. kr3 19:26 Strep Sent. kr3 19:27 Flu Sent. kr3 19:34 Chest Single View XRAY In Process Unspecified. EDMS 20:49 Destin Hernandez MD is Hospitalizing Provider. snw 21:41 Patient has correct armband on for positive identification. Placed in gown. Bed in low lg3 position. Call light in reach. Side rails up X 1. Client placed on continuous cardiac and pulse oximetry monitoring. NIBP monitoring applied. trading specialist on. Door closed. Noise minimized. Warm blanket given. 21:41 Inserted 22 LAC inserted by previous nurse IV is patent, with fluids infusing freely, lg3 with good blood return. 03/10 01:41 No provider procedures requiring assistance completed. Patient admitted, IV remains in lg3 place. intact, No redness/swelling at site. Administered Medications: 01:26 Discontinued: D5-1/2 NS with KCl IV 20 mEq/L 1000 ml IV at 150 ml/hr continuous lg3 03/09 19:44 Drug: NS 0.9% IV 1000 ml Route: IV; Rate: 1 bolus; Site: right antecubital; kr3 21:43 Follow up: IV Status: Completed infusion; IV Intake: 1000ml lg3 20:35 Drug: Insulin Drip - (Insulin Regular Human IVP 100 units, NS 0.9% IV 100 ml) kr3 {Co-Signature: lg3 (Claudia Trivedi RN).} Route: IV; Rate: calculated rate; Site: right antecubital; 22:08 Follow up: Rate change 3.5 units/hr 3 03/10 01:26 Follow up: IV Status: Order to discontinue infusion 3 03/09 21:15 Drug: NS 0.9% IV 1000 ml Route: IV; Rate: 1 bolus; Site: right antecubital; kr3 22:28 Follow up: IV Status: Completed infusion; IV Intake: 1000ml lg3 21:41 Drug: Acetaminophen PO 1000 mg Route: PO; lg3 03/10 01:26 Follow up: Response: No adverse reaction; Marked relief of symptoms 3 03/09 22:06 CANCELLED (Physician Discretion): NS 0.9% IV 1000 ml IV at 200 ml/hr once sb4 22:08 CANCELLED (Physician Discretion): D5-1/2 NS with KCl IV 20 mEq/L 1000 ml IV at 150 sb4 ml/hr continuous 22:29 Drug: D5-1/2 NS with KCl IV 20 mEq/L 1000 ml Route: IV; Rate: 150 ml/hr; Site: left lg3 antecubital; 03/10 01:22 CANCELLED (Physician Discretion): Levemir Sub-Q 100 unit/mL 24 units Sub-Q once sb4 Medication: 01:42 VIS not applicable for this client. lg3 Point of Care Testing: Blood Glucose: 03/09 19:03 Blood Glucose: High (>450 mg/dL); db Ranges: Intake: 21:43 IV: 1000ml; Total: 1000ml. lg3 22:28 IV: 1000ml; Total: 2000ml. lg3 Outcome: 20:49 Decision to Hospitalize by Provider. snw 03/10 01:41 Admitted to Med/surg accompanied by tech, via wheelchair, room 208, Report called to lg3 Stacey Condition: stable Instructed on the need for admit, Demonstrated understanding of instructions. 01:42 Patient left the ED. lg3 Signatures: Dispatcher [employer] EDMS Ilana Patricia, NELY-C MARKETING INTERN-Csnw Claudia Trivedi, RN RN lg3 Nenita Milian RN RN himanshu3 [place], RN Liberty Chaudhari PA-C sb4 Claudia Trivedi RN lg3 Corrections: (The following items were deleted from the chart) 03/09 18:55 18:46 PMHx: Diabetes - NIDDM; 3 kr3 19:43 19:26 SARS-COV-2 Antigen Rapid+I.LAB.BRZ drawn and sent. 3 EDTX
--- NOTE | 2023-03-09 20:50 | EDPHYS ---
Physician Documentation [facility] Name: Rosalie Parekh Age: 27 yrs Sex: Female : 1995 Arrival Date: 03/09/2023 Time: 18:36 Bed 14 Private MD: ED Physician Klaus Roland HPI: 03/09 19:23 This 27 yrs old Female presents to ER via EMS with complaints of Anxiety, High Blood snw Sugar. 19:23 Onset: The symptoms/episode began/occurred suddenly. Associated signs and symptoms: snw Pertinent positives: blood sugar has been high all day. Historical: - Home Meds: 18:46 Novolog subcutaneous Sub-Q [Active]; kr3 - PMHx: 18:46 Anxiety; kr3 18:54 Diabetes mellitus; kr3 - Immunization history:: Adult Immunizations not up to date. - Social history:: Smoking status: Reported history of juuling and/or vaping. ROS: 19:23 Eyes: Negative for injury, pain, redness, and discharge, ENT: Negative for injury, snw pain, and discharge, Neck: Negative for injury, pain, and swelling, Cardiovascular: Negative for chest pain, palpitations, and edema, Respiratory: Negative for shortness of breath, cough, wheezing, and pleuritic chest pain. 19:23 Back: Negative for injury and pain, : Negative for injury, bleeding, discharge, and swelling, MS/Extremity: Negative for injury and deformity, Skin: Negative for injury, rash, and discoloration, Neuro: Negative for headache, weakness, numbness, tingling, and seizure, Psych: Negative for depression, anxiety, suicide ideation, homicidal ideation, and hallucinations. 19:23 Constitutional: Positive for body aches, malaise, poor PO intake. 19:23 Abdomen/GI: Positive for nausea, Negative for vomiting. Exam: 19:22 Head/Face: Normocephalic, atraumatic. Eyes: Pupils equal round and reactive to light, snw extra-ocular motions intact. Lids and lashes normal. Conjunctiva and sclera are non-icteric and not injected. Cornea within normal limits. Periorbital areas with no swelling, redness, or edema. 19:22 Neck: Trachea midline, no thyromegaly or masses palpated, and no cervical lymphadenopathy. Supple, full range of motion without nuchal rigidity, or vertebral point tenderness. No Meningismus. Chest/axilla: Normal chest wall appearance and motion. Nontender with no deformity. No lesions are appreciated. Cardiovascular: Regular rate and rhythm with a normal S1 and S2. No gallops, murmurs, or rubs. Normal PMI, no JVD. No pulse deficits. Respiratory: Lungs have equal breath sounds bilaterally, clear to auscultation and percussion. No rales, rhonchi or wheezes noted. No increased work of breathing, no retractions or nasal flaring. Abdomen/GI: Soft, non-tender, with normal bowel sounds. No distension or tympany. No guarding or rebound. No evidence of tenderness throughout. Back: No spinal tenderness. No costovertebral tenderness. Full range of motion. Skin: Warm, dry with normal turgor. Normal color with no rashes, no lesions, and no evidence of cellulitis. MS/ Extremity: Pulses equal, no cyanosis. Neurovascular intact. Full, normal range of motion. Neuro: Awake and alert, GCS 15, oriented to person, place, time, and situation. Cranial nerves II-XII grossly intact. Motor strength 5/5 in all extremities. Sensory grossly intact. Cerebellar exam normal. Normal gait. Psych: Awake, alert, with orientation to person, place and time. Behavior, mood, and affect are within normal limits. 19:22 Constitutional: The patient appears alert, awake, anxious, listless. 19:22 ENT: Mouth: Lips: dry, cracked, Tongue: dry, Voice: is normal. Vital Signs: 18:42 BP 139 / 98; Pulse 94; Resp 17; Temp 99.1; Pulse Ox 100% on R/A; Weight 72.57 kg; kr3 Height 5 ft. 2 in. ; Pain 0/10; 21:41 BP 126 / 85; Pulse 94; Resp 18 S; Pulse Ox 100% on R/A; 3 03/10 00:51 BP 118 / 77; Pulse 94; Resp 17 S; Pulse Ox 100% on R/A; 3 03/09 18:42 Body Mass Index 29.26 (72.57 kg, 157.48 cm) [facility] 03/09 18:42 Pain Scale: Adult [facility] MDM: 03/09 18:44 Patient medically screened. bs3 20:44 Differential diagnosis: viral Infection, bacterial infection, DKA. Data reviewed: vital snw signs, nurses notes, lab test result(s), EKG, radiologic studies. Management of patient was discussed with the following: Hospitalist: Xander Laurent. Counseling: I had a detailed discussion with the patient and/or guardian regarding: the historical points, exam findings, and any diagnostic results supporting the discharge/admit diagnosis, lab results, radiology results, the need for further work-up and treatment in the hospital. Response to treatment: the patient's symptoms have mildly improved after treatment. 03/09 18:54 Order name: Glucose, Ancillary Testing; Complete Time: 18:57 EDMS 03/09 18:54 Order name: Blood Culture Adult (2) snw 03/09 18:54 Order name: CBC with Diff; Complete Time: 19:58 snw 03/09 18:54 Order name: CMP; Complete Time: 20:21 snw 03/09 18:54 Order name: Lactate w/ 2H reflex if indic.; Complete Time: 20:05 snw 03/09 18:54 Order name: Protime (+inr); Complete Time: 20:00 snw 03/09 18:54 Order name: Ptt, Activated; Complete Time: 20:00 snw 03/09 18:54 Order name: Urinalysis w/ reflexes; Complete Time: 19:58 snw 03/09 18:54 Order name: PREGU; Complete Time: 19:58 snw 03/09 18:56 Order name: Flu; Complete Time: 20:30 snw 03/09 18:56 Order name: Strep; Complete Time: 20:21 snw 03/09 18:56 Order name: Acetone, Serum; Complete Time: 20:07 snw 03/09 19:43 Order name: SARS-COV-2 RT PCR; Complete Time: 20:30 EDMS 03/09 20:09 Order name: Throat Culture EDMS 03/09 20:57 Order name: Acetone Level; Complete Time: 00:58 EDMS 03/09 20:57 Order name: Basic Metabolic Panel; Complete Time: 00:58 EDMS 03/09 20:58 Order name: Glucose, Ancillary Testing; Complete Time: 20:58 EDMS 03/09 22:14 Order name: Glucose, Ancillary Testing; Complete Time: 22:42 EDMS 03/09 23:14 Order name: Glucose, Ancillary Testing; Complete Time: 23:16 EDMS 08 01:10 Order name: Glucose, Ancillary Testing; Complete Time: 01:11 EDMS 03/09 18:54 Order name: Chest Single View XRAY; Complete Time: 19:46 snw 03/09 18:54 Order name: EKG; Complete Time: 18:55 snw 03/09 18:44 Order name: Glucose Level; Complete Time: 18:48 bs3 03/09 18:53 Interpretation: Abnormal. snw 03/09 18:54 Order name: Cardiac monitoring; Complete Time: 19:23 snw 03/09 18:54 Order name: EKG - Nurse/Tech; Complete Time: 19:23 snw 03/09 18:54 Order name: IV Saline Lock - Large Bore; Complete Time: 19:12 snw 03/09 18:54 Order name: Labs collected and sent; Complete Time: 19:27 snw 03/09 18:54 Order name: O2 Per Protocol; Complete Time: 19:12 snw 03/09 18:54 Order name: O2 Sat Monitoring; Complete Time: 19:12 snw 03/09 18:54 Order name: Vital Signs; Complete Time: 19:27 snw EC:20 Rate is 95 beats/min. Rhythm is regular. QRS [place] is Normal. OR interval is normal. T snw waves are Inverted in leads aVR, V2, V3. Clinical impression: NSR w/ Non-specific ST/T Changes. Administered Medications: 03/10 01:26 Discontinued: D5-1/2 NS with KCl IV 20 mEq/L 1000 ml IV at 150 ml/hr continuous lg3 03/09 19:44 Drug: NS 0.9% IV 1000 ml Route: IV; Rate: 1 bolus; Site: right antecubital; kr3 21:43 Follow up: IV Status: Completed infusion; IV Intake: 1000ml lg3 20:35 Drug: Insulin Drip - (Insulin Regular Human IVP 100 units, NS 0.9% IV 100 ml) kr3 {Co-Signature: lg3 (Claudia Trivedi RN).} Route: IV; Rate: calculated rate; Site: right antecubital; 22:08 Follow up: Rate change 3.5 units/hr lg3 03/10 01:26 Follow up: IV Status: Order to discontinue infusion 3 03/09 21:15 Drug: NS 0.9% IV 1000 ml Route: IV; Rate: 1 bolus; Site: right antecubital; kr3 22:28 Follow up: IV Status: Completed infusion; IV Intake: 1000ml 3 21:41 Drug: Acetaminophen PO 1000 mg Route: PO; 3 03/10 01:26 Follow up: Response: No adverse reaction; Marked relief of symptoms 3 03/09 22:06 CANCELLED (Physician Discretion): NS 0.9% IV 1000 ml IV at 200 ml/hr once sb4 22:08 CANCELLED (Physician Discretion): D5-1/2 NS with KCl IV 20 mEq/L 1000 ml IV at 150 sb4 ml/hr continuous 22:29 Drug: D5-1/2 NS with KCl IV 20 mEq/L 1000 ml Route: IV; Rate: 150 ml/hr; Site: left lg3 antecubital; 03/10 01:22 CANCELLED (Physician Discretion): Levemir Sub-Q 100 unit/mL 24 units Sub-Q once sb4 Point of Care Testing: Blood Glucose: 03/09 19:03 Blood Glucose: High (>450 mg/dL); db Ranges: Critical Glucose Levels:Adult <50 mg/dl or >400 mg/dl <40 mg/dl or >180 mg/dl Disposition Summary: 03/09/23 20:49 Hospitalization Ordered Hospitalization Status: Inpatient Admission snw Provider: Destin Hernandez snw Condition: Stable snw Problem: an acute exacerbation snw Symptoms: have improved snw Bed/Room Type: Standard snw Location: Telemetry/MedSurg (Inpatient)(03/10/23 01:11) Room Assignment: 208(03/10/23 01:11) Diagnosis - Diabetes mellitus due to underlying condition with ketoacidosis without coma snw Forms: - Medication Reconciliation Form snw - SBAR form snw Signatures: Dispatcher [employer] EDMS Malaika Ashby RN RN mw Ilana Patricia, NELY-C CLINICAL SCIENCE CONSULTANT-Csnw Claudia Trivedi RN RN lg3 Nenita Milian RN RN kr3 Klaus Roland MD MD bs3 Liberty Brandt PA-C PA-C sb4 Claudia Trivedi RN lg3 Corrections: (The following items were deleted from the chart) 18:55 18:46 PMHx: Diabetes - NIDDM; kr3 kr3 19:43 18:57 SARS-COV-2 Antigen Rapid+I.LAB.BRZ ordered. EDMS EDMS 22:06 20:49 NS 0.9% IV 1000 ml IV at 200 ml/hr once ordered. snw sb4 08 22:06 D5-1/2 NS with KCl IV 20 mEq/L 1000 ml IV at 150 ml/hr continuous ordered. sb4 sb4 03/10 01:11 03/09 20:49 Intensive Care Unit [facility] 03/10 01:11 03/09 20:49 [facility] 03/10 01:22 01:07 Levemir Sub-Q 100 unit/mL 24 units Sub-Q once ordered. sb4 sb4
[2023-03-09] MEDS ORDERED: ACETAMINOPHEN 500 MG TAB ONE (21:43)
[2023-03-09] MEDS ORDERED: D5.45NS W/KCL 20MEQ 1,000 ML IV ONE (22:34)
[2023-03-10 00:51] LABS: Potassium 3.5 mEq/L (3.5-5.1)
[2023-03-10] MEDS ORDERED: ONDANSETRON 4 MG/2 ML VIAL IV PRN (01:12)
--- NOTE | 2023-03-10 01:14 | P.HP ---
Certification for Inpatient Patient admitted to: Observation With expected LOS: <2 Midnights Patient will require the following post-hospital care: None Practitioner: I am a practitioner with admitting privileges, knowledge of patient current condition, hospital course, and medical plan of care. Services: Services provided to patient in accordance with Admission requirements found in Title 42 Section 412.3 of the Code of Federal Regulations <Liberty Brandt - Last Filed: 03/10/23 01:42> Patient History Date of Service: 03/10/23 Reason for admission: DKA Phase 2 History of Present Illness: Ms. Parekh is a 27-year-old female with type 1 diabetes who presented to the ED via EMS with complaints of hyperglycemia. She states that she has been taking both her short acting and long acting insulin as prescribed but her blood sugar has been increasing throughout the day. She denies nausea, vomiting, abdominal pain, shortness of breath, malaise. She was noted to be in a mild DKA with blood sugar 451, CO2 15, anion gap 18, large serum acetone, urine with 4+ glucose and 4+ ketones. She was started on insulin drip in ED and is admitted for further management of DKA. Home medications list reviewed: Yes - Past Medical/Surgical History Diabetic: Yes -: Diabetes mellitus type 1 -: C section Psychosocial/ Personal History: Patient lives at home with family - Family History Mother -: Diabetes - Social History Smoking Status: Current some day smoker (vapes) Alcohol use: Yes CD- Drugs: No Caffeine use: Yes Place of Residence: Home <Liberty Brandt - Last Filed: 03/10/23 01:42> Date of Service: 03/10/23 <Cabrera Lewis - Last Filed: 03/10/23 12:29> Allergies No Known Allergies Allergy (Verified 09/29/22 00:31) Home Medications: Insulin Detemir [Levemir Flexpen] 24 unit SQ BID #30 ml 01/10/23 Insulin Aspart [Novolog Flexpen] See Protocol SQ SEECOM 03/10/23 Review of Systems Unremarkable <RikkiLiberty - Last Filed: 03/10/23 01:42> Physical Examination - Vital Signs Temperature: 99.1 F Blood Pressure: 118/77 Pulse: 94 Respirations: 17 Pulse Ox (%): 100 - Physical Exam General: Alert, In no apparent distress HEENT: Atraumatic, EOMI, Sclerae nonicteric Neck: Supple, 2+ carotid pulse no bruit Respiratory: Clear to auscultation bilaterally, Normal air movement Cardiovascular: Regular rate/rhythm, Normal S1 S2 Gastrointestinal: Normal bowel sounds, No tenderness Musculoskeletal: No tenderness Integumentary: No rashes Neurological: Normal speech, Normal affect - Studies Laboratory Data (last 24 hrs) 03/10/23 00:25: Sodium 134 L D, Potassium 3.5, BUN 14, Creatinine 0.71, Glucose 166 H 03/09/23 19:05: PT 10.1, INR 0.92, APTT 31.2 03/09/23 19:05: Sodium 127 L, Potassium 3.7, BUN 21 H, Creatinine 0.94, Glucose 451 H*, Total Bilirubin 0.7, AST 8 L, ALT 24, Alkaline Phosphatase 115 03/09/23 19:05: WBC 8.00, Hgb 14.7, Hct 44.3, Plt Count 397 Microbiology Data (last 24 hrs): 03/09/23 19:20 Nasopharnyx Influenza Type A Antigen Screen - Final 03/09/23 19:20 Nasopharnyx Influenza Type B Antigen Screen - Final 03/09/23 19:23 Throat Group A Streptococcus Rapid Screen - Final <Liberty Brandt - Last Filed: 03/10/23 01:42> - Studies Laboratory Data (last 24 hrs) 03/10/23 00:25: Sodium 134 L D, Potassium 3.5, BUN 14, Creatinine 0.71, Glucose 166 H 03/09/23 19:05: PT 10.1, INR 0.92, APTT 31.2 03/09/23 19:05: Sodium 127 L, Potassium 3.7, BUN 21 H, Creatinine 0.94, Glucose 451 H*, Total Bilirubin 0.7, AST 8 L, ALT 24, Alkaline Phosphatase 115 03/09/23 19:05: WBC 8.00, Hgb 14.7, Hct 44.3, Plt Count 397 Microbiology Data (last 24 hrs): 03/10/23 00:25 Blood - Blood Anaerobic Blood Culture - Final 03/09/23 19:20 Nasopharnyx Influenza Type A Antigen Screen - Final 03/09/23 19:20 Nasopharnyx Influenza Type B Antigen Screen - Final 03/09/23 19:23 Throat Group A Streptococcus Rapid Screen - Final <Cabrera Lewis - Last Filed: 03/10/23 12:29> Assessment and Plan - Problems (Diagnosis) (1) T1DM (type 1 diabetes mellitus) Current Visit: Yes Status: Acute Qualifiers: Diabetes mellitus complication status: with ketoacidosis Diabetes mellitus complication detail: without coma Qualified Code(s): E10.10 - Type 1 diabetes mellitus with ketoacidosis without coma - Plan Anion gap rapidly closed with insulin drip and IV fluids while patient was still in ED. She is tolerating PO, has not vomited. We can admit to the floor for observation with q4 blood sugar checks, aggressive hydration, long acting insulin, and sliding scale. Check BMP & acetone every 6 hours. Unclear what triggered her DKA as she reports compliance with her insulin. No source of infection identified. Discharge Plan: Home Plan to discharge in: 24 Hours - Advance Directives Does patient have a Living Will: No Does patient have a Durable POA for Healthcare: No - Code Status/Comfort Care Code Status Assessed: Yes Code Status: Full Code Physician Review: Patient Assessed, Agree with Above Assessment and Plan Critical Care: No Time Spent Managing Pts Care (In Minutes): 50 <Liberty Brandt - Last Filed: 03/10/23 01:42> Physician Review: Patient Assessed, Agree with Above Assessment and Plan <Cabrera Lewis - Last Filed: 03/10/23 12:29>
[2023-03-10] MEDS ORDERED: INSULIN GLARGINE 100 UNIT/ML SQ ONE (01:23)
[2023-03-10 01:32] VITALS: BMI 29.2
[2023-03-10 01:53] VITALS: O2SAT 100
[2023-03-10] MEDS: NA CHLORIDE 0.9% 1,000 ML IV SCH ×3 (01:56→09:06)
[2023-03-10] MEDS ORDERED: ACETAMINOPHEN 500 MG TAB PO PRN (04:00)
[2023-03-10] MEDS: INSULIN -REGULAR HUMAN 50 UNIT/0.5 ML ML SQ SCH ×3 (05:12→12:15)
[2023-03-10] MEDS ORDERED: INSULIN -REGULAR HUMAN 50 UNIT/0.5 ML ML SQ SCH (06:00)
[2023-03-10 08:22] VITALS: BP 111/63; TEMP 98.9
[2023-03-10] MEDS ORDERED: ENOXAPARIN 40 MG/0.4 ML SQ SCH (09:00)
[2023-03-10] MEDS ORDERED: INSULIN GLARGINE 100 UNIT/ML SQ SCH (09:00)
[2023-03-10 11:48] LABS: Potassium 3.9 mEq/L (3.5-5.1)
--- NOTE | 2023-03-10 12:34 | P.DS ---
Admission Date: 03/10/23 Discharge Date: 03/10/23 Disposition: ROUTINE DISCHARGE Discharge Condition: GOOD Reason for Admission: DKA Phase 2 Hospital Course: DIAGNOSES: # Mild Diabetic Ketoacidosis in Type I Diabetes Mellitus due to Medication Noncompliance - resolved # Hyponatremia secondary to Hyperglycemia - resolved HOSPITAL COURSE: Ms. Celia Parekh is a 27 year old female with a past medical history significant for type I diabetes mellitus who was admitted to the [facility] on 03/10/2023 for diabetic ketoacidosis. She was admitted to the Medicine service. Upon further evaluation, she reported that she had missed yesterday's dose of insulin. She was found to have a mild case of diabetic ketoacidosis. She was started on IV fluids and an insulin drip, and shortly after, her glucose levels improved and her anion gap closed. This morning, she stated that she felt very well and would like to be discharged home. She was counseled that her diabetes is poorly controlled, as evidenced by her Hgb A1c of 13.4 %. She verbalized understanding and stated that she will schedule a follow-up appointment with Dr. Abraham ([facility] Endocrinology). On 03/10/2023, she was seen on rounds and deemed medically stable for discharge. She was discharged with instructions to schedule follow-up appointments with her PCP and with her [facility]essionals (Dr. Abraham). She was given the opportunity to ask questions and reported no further questions. Furthermore, all questions were answered to the best of my ability. A copy of this discharge summary will be sent to the above providers to facilitate continuity of care. Today, I personally spent 25 minutes on her case, of which greater than 50% of the time was spent in patient education, counseling, and coordination of care as described above. Vital Signs/Physical Exam: Temp Pulse Resp BP Pulse Ox 98.9 F 92 H 16 111/63 98 03/10/23 08:00 03/10/23 08:00 03/10/23 08:00 03/10/23 08:00 03/10/23 08:00 General: Alert, In no apparent distress, Oriented x3 HEENT: Atraumatic, Mucous membr. moist/pink, Sclerae nonicteric Neck: JVD not distended Respiratory: Clear to auscultation bilaterally, Normal air movement Cardiovascular: No edema, Regular rate/rhythm, Normal S1 S2, No gallops, No rubs, No murmurs Gastrointestinal: Normal bowel sounds, Soft and benign, Non-distended, No tenderness, No rebound, No guarding Musculoskeletal: No clubbing Integumentary: No rashes Neurological: Normal speech, Normal affect Laboratory Data at Discharge: WBC 8.00 thou/uL (4.3-10.9) 03/09/23 19:05 Hgb 14.7 g/dL (12.0-15.0) 03/09/23 19:05 Hct 44.3 % (36.0-45.0) 03/09/23 19:05 Plt Count 397 thou/uL (152-406) 03/09/23 19:05 PT 10.1 SECONDS (9.5-12.5) 03/09/23 19:05 INR 0.92 03/09/23 19:05 APTT 31.2 SECONDS (24.3-36.9) 03/09/23 19:05 Sodium 138 mEq/L (136-145) 03/10/23 11:15 Potassium 3.9 mEq/L (3.5-5.1) 03/10/23 11:15 BUN 10 mg/dL (7-18) 03/10/23 11:15 Creatinine 0.58 mg/dL (0.55-1.02) 03/10/23 11:15 Glucose 171 mg/dL (74-106) H 03/10/23 11:15 Total Bilirubin 0.7 mg/dL (0.2-1.0) 03/09/23 19:05 AST 8 U/L (15-37) L 03/09/23 19:05 ALT 24 U/L (13-56) 03/09/23 19:05 Alkaline Phosphatase 115 U/L (45-117) 03/09/23 19:05 Triglycerides 197 mg/dL (<150) H 03/10/23 04:55 Cholesterol 153 mg/dL (<200) 03/10/23 04:55 HDL Cholesterol 38 mg/dL (40-60) L 03/10/23 04:55 Cholesterol/HDL Ratio 4.03 03/10/23 04:55 Home Medications: Insulin Detemir [Levemir Flexpen] 24 unit SQ BID #30 ml 01/10/23 Insulin Aspart [Novolog Flexpen] See Protocol SQ SEECOM 03/10/23 Physician Discharge Instructions: 1. Please call and schedule a follow-up appointment with your PCP in 3-5 days 2. Please call and schedule a follow-up appointment with your [facility]essionals (Dr. Abraham) in 3-5 days - Please make sure you schedule a yearly eye exam, foot exam, and urine microalbumin study to monitor your diabetes Diet: ADA Activity: Ad pepe Followup: NONE,NONE [Primary Care Provider] - Constanza Abraham MD [OUTSIDE PHYSICIAN] - Time spent managing pt's care (in minutes): 25
--- NOTE | 2023-03-11 07:56 | EKG ---
Test Date: 2023-03-09 Test Time: 19:19:07 Form Setter [employer] Forms: TASNEEM MEASUREMENT RESULTS: Intervals: Rate: 95 VT: 158 QRSD: 76 QT: 334 QTc: 419 [place]: P: 68 VT: 158 QRS: 67 T: 44 INTERPRETIVE STATEMENTS: Normal sinus rhythm Possible Left atrial enlargement Borderline ECG Compared to ECG 03/09/2023 19:18:42 Sinus arrhythmia no longer present Electronically Signed On 03-11-23 07:53:13 CDT by Jonathan Encinas
--- NOTE | 2023-03-11 07:56 | EKG ---
Test Date: 2023-03-09 Test Time: 19:18:42 Maintenance Department Technician: TASNEEM MEASUREMENT RESULTS: Intervals: Rate: 92 MN: 154 QRSD: 74 QT: 334 QTc: 413 [place]: P: 66 MN: 154 QRS: 64 T: 39 INTERPRETIVE STATEMENTS: Normal sinus rhythm with sinus arrhythmia Possible Left atrial enlargement Borderline ECG Compared to ECG 01/10/2023 01:15:11 No significant changes Electronically Signed On 03-11-23 07:53:14 CDT by Jonathan Encinas
== END 2023-03-10 13:12 | disposition home or self-care (01) ==
LOC: ER 18:36 → ERHOLD 03-10 01:02 → 2ND 03-10 01:27
PROVIDERS: ADMIT Internal Medicine; ATTEND Internal Medicine
DX: E10.10 Type 1 diabetes mellitus with ketoacidosis without coma (principal); E87.1 Hypo-osmolality and hyponatremia; E10.65 Type 1 diabetes mellitus with hyperglycemia; F17.210 Nicotine dependence, cigarettes, uncomplicated; Z91.148 Patient's other noncompliance with medication regimen for other reason
CPT/HCPCS: 96365; 96361; 93005 ×2; 87040 ×2; 87070; 85025; 80048 ×3; 36415; 82010 ×3; 81025; 85610; 80061; 82947 ×7; 87081; 83605; 85730; 81003; 83036; 80053; 87804 ×2; 71045; 99285; 96366; U0003; J1815 ×4; J7030 ×5; G0378 ×2

== ENCOUNTER 2023-04-21 17:40 | Observation (INO) | payer OTHER ==
--- OUTSIDE RECORDS SUMMARY | 2023-04-21 17:47 | XMS REPORT | Continuity of Care Document ---
:1995 Author Organization [facility] t Address [address] [place] [place] [address] Care Team Providers Name Role Phone Pcp, Patient Does Not Have A Primary Care Physician [id number] ANSELMO FIGUEROA Attending Clinician Unavailable ANSELMO FIGUEROA Attending Clinician Unavailable Natalie Corrales Attending Clinician Unavailable Beatriz Winters MD Attending Clinician BEATRIZ WINTERS Attending Clinician Unavailable Doctor Unassigned, [place] Attending Clinician Unavailable CASIE BRUNO Attending Clinician Unavaila ble ANSELMO FIGUEROA Admitting Clinician Unavailable Natalie Corrales Admitting Clinician Unavailable CASIE BRUNO Admitting Clinician Unavaila sarai Payers Payer Name Policy Type Policy Number Effective Date Expiration Date Jared [facility] [facility] [id number] 2018 00:00:00 Problems Condition Condition Condition Status [...] nivers nce nce 8 ity of 00:00: [address] DKA DKA Disease Active Univers (diabetic (diabetic 06-03 ity of ketoac[place] Medical [place] Diabetic Diabetic Disease Recurre 2017-[address] [...] [facility] [place] 00:00: [address] No Known DA Active U [facility] [place] 00:00: [address] No Known DA Active U 2019- [facility] [place] 00:00: [address] No Known DA Active U 2020-1 [facility] [place] 00:00: [address] No Known DA Active U 2019-1 [facility] [place] 00:00: [address] No Known DA Active U 2019-1 [facility] [place] 00:00: [address] NO KNOWN Drug Active Univers ALLERGIE Class ity of S [facility] Social History Social Habit Start Date Stop Date Quantity Comments Source History of tobacco Current smoker Un iversity of use [facility] Exposure to 2022-06-01 2022-06-11 Not sure University SARS-CoV-2 (event) 00:00:00 11:35:00 [facility] Tobacco use and 2020-06-03 2020-06-03 Former smokeless Uni versity of exposure 00:00:00 00:00:00 tobacco user [facility] Alcohol intake 2020-06-03 2020-06-03 Current University of 00:00:00 00:00:00 non-drinker of [facility] alcohol Branch (finding) Tobacco Comment 2020-06-03 2020-06-03 half a pack a Univer sity of 00:00:00 00:00:00 day has not [place] [facility] since found out Branch she is Cigarettes smoked 2018-08-18 2018-08-[address] [facility] current (pack per 00:00:00 00:00:00 Medical Center day) - Reported Sex Assigned At [address] [facility] G[facility] grimes 00:00:00 00:00:00 [facility] Smoking Status Start Date Stop Date Source Ex-smoker 2020-06-03 00:00:00 2020-06-03 00:00:00 [facility] Smokes tobacco daily 2018-08-18 00:00:00 [facility] Medications Ordered Filled Start Stop Current Ordering Indication Dosage Frequency Signature Comments Components Source Medication Medication Date Date Medication? Clinician (SIG) Name Name Insulin Yes [id number] 24U inject 24 Univers Detemir 3-03 Units ity of ([place] 00:[place] FLEXT[place] 00 skin every Medi geena U-100 morning. Branch INSULN) 100 unit/mL (3 mL) injection insulin 2021-11 Yes [id number] 24U INJECT 24 Univers degludec 1-19 UNITS ity of (TRESIBA 00:00: [place] FLEXTOUCH 00 SKIN EVERY Medi geena U-100) 100 MORNING. Branc h unit/mL (3 mL) InPn insulin 2021-11 Yes [id number] 24U INJECT 24 Univers degludec 1-19 UNITS ity of (TRESIBA 00:00: [place] FLEXTOUCH 00 SKIN EVERY Medi geena U-100) 100 MORNING. Branc h unit/mL (3 mL) InPn insulin 2021-11 Yes [id number] 24U INJECT 24 Univers degludec 1-19 UNITS ity of (TRESIBA 00:00: [place] FLEXTOUCH 00 SKIN EVERY Medi geena U-100) 100 MORNING. Branc h unit/mL (3 mL) InPn insulin 2021-11 Yes [id number] 24U INJECT 24 Univers degludec 1-19 UNITS ity of (TRESIBA 00:00: [place] FLEXTOUCH 00 SKIN EVERY Medi geena U-100) 100 MORNING. Branc h unit/mL (3 mL) InPn insulin 2021-11 Yes [id number] 24U INJECT 24 Univers degludec 1-19 UNITS ity of (TRESIBA 00:00: [place] FLEXTOUCH 00 SKIN EVERY Medi geena U-100) 100 MORNING. Branc h unit/mL (3 mL) InPn insulin 2021-11 2023- No [id number] 24U INJECT 24 Univers degludec 1-19 03-03 UNITS ity of (TRESIBA 00:00: 00:00 UNDER THE [place] as FLEXTOUCH 00 :00 SKIN EVERY Medi geena U-100) 100 MORNING. Branc h unit/mL (3 mL) InPn insulin Yes [id number] INJECT UP Univers aspart 8 TO 10 ity of U-100 00:00: UNITS [place] (NOVOLOG 00 UNDER THE Medica l FLEXPEN SKIN 3 Branch U-100 TIMES A INSULIN) DAY WITH A 100 unit/mL MEAL PER (3 mL) SLIDING injection SCALE Insulin Yes [id number] Use as Uni vers [place], 06-11 directed ity of Disposable, 00:00: four times [place] (BD 00 a day. Medical ULTRA-FINE DX:E10.65 Bran ch MICRO PEN NEEDLE) 32 gauge x 1/4" Ndle blood sugar Yes [id number] Use as Univers diagnostic 06-11 directed ity o f (TRUE 00:00: up to 4 [place] METRIX 00 times a Medical GLUCOSE day Branch TEST STRIP) strip lancets Yes [id number] Use as Uni vers (ONE TOUCH 06-11 directed ity o f DELICA) 33 00:00: [place] 4 [place] gauge Misc 00 times a Medica l day E10.65 Branch insulin Yes [id number] INJECT UP Univers aspart 06-11 TO 10 ity of U-100 00:00: UNITS [place] (NOVOLOG 00 UNDER THE Medica l FLEXPEN SKIN 3 Branch U-100 TIMES A INSULIN) DAY WITH A 100 unit/mL MEAL PER (3 mL) SLIDING injection SCALE Insulin Yes [id number] Use as Uni vers [place], 06-11 directed ity of Disposable, 00:00: four times [place] (BD 00 a day. Medical ULTRA-FINE DX:E10.65 Bran ch MICRO PEN NEEDLE) 32 gauge x 1/4" Ndle blood sugar Yes [id number] Use as Univers diagnostic 06-11 directed ity o f (TRUE 00:00: up to 4 [place] METRIX 00 times a Medical GLUCOSE day Branch TEST STRIP) strip lancets Yes [id number] Use as Uni vers (ONE TOUCH 06-11 directed ity o f DELICA) 33 00:00: [place] to 4 [place] gauge Misc 00 times a Medica l day E10.65 Branch insulin Yes [id number] INJECT UP Univers aspart 06-11 TO 10 ity of U-100 00:00: UNITS [place] (NOVOLOG 00 UNDER THE Medica l FLEXPEN SKIN 3 Branch U-100 TIMES A INSULIN) DAY WITH A 100 unit/mL MEAL PER (3 mL) SLIDING injection SCALE Insulin Yes [id number] Use as Uni vers [place], 06-11 directed ity of Disposable, 00:00: four times [place] (BD 00 a day. Medical ULTRA-FINE DX:E10.65 Bran ch MICRO PEN NEEDLE) 32 gauge x 1/4" Ndle blood sugar Yes [id number] Use as Univers diagnostic 06-11 directed ity o f (TRUE 00:00: up to 4 [place] METRIX 00 times a Medical GLUCOSE day Branch TEST STRIP) strip lancets Yes [id number] Use as Uni vers (ONE TOUCH 06-11 directed ity o f DELICA) 33 00:00: up to 4 [place] gauge Misc 00 times a Medica l day E10.65 Branch insulin 0 Yes [id number] INJECT UP Univers aspart 06-11 TO 10 ity of U-100 00:00: UNITS [place] (NOVOLOG 00 UNDER THE Medica l FLEXPEN SKIN 3 Branch U-100 TIMES A INSULIN) DAY WITH A 100 unit/mL MEAL PER (3 mL) SLIDING injection SCALE Insulin Yes [id number] Use as Uni vers [place], 06-11 directed ity of Disposable, 00:00: four times [place] (BD 00 a day. Medical ULTRA-FINE DX:E10.65 Bran ch MICRO PEN NEEDLE) 32 gauge x 1/4" Ndle insulin Yes [id number] 24U inject 24 Univers degludec 8-09 Units ity of (TRESIBA 00:00: [place] FLEXTOUCH 00 skin every Medi geena U-100) 100 morning. Branc h unit/mL (3 mL) InPn blood sugar Yes [id number] Use as Univers diagnostic 06-11 directed ity o f (TRUE 00:00: up to 4 [place] METRIX 00 times a Medical GLUCOSE day Branch TEST STRIP) strip lancets Yes [id number] Use as Uni vers (ONE TOUCH 06-11 directed ity o f DELICA) 33 00:00: up to 4 [place] gauge Misc 00 times a Medica l day E10.65 Branch insulin Yes [id number] INJECT UP Univers aspart 06-11 TO 10 ity of U-100 00:00: UNITS [place] (NOVOLOG 00 UNDER THE Medica l FLEXPEN SKIN 3 Branch U-100 TIMES A INSULIN) DAY WITH A 100 unit/mL MEAL PER (3 mL) SLIDING injection SCALE Insulin Yes [id number] Use as Uni vers [place], 06-11 directed ity of Disposable, 00:00: four times [place] (BD 00 a day. Medical ULTRA-FINE DX:E10.65 Bran ch MICRO PEN NEEDLE) 32 gauge x 1/4" Ndle blood sugar 0 Yes [id number] Use as Univers diagnostic 06-11 directed ity o f (TRUE 00:00: up to 4 [place] METRIX 00 times a Medical GLUCOSE day Branch TEST STRIP) strip lancets 0 Yes [id number] Use as Uni vers (ONE TOUCH 06-11 directed ity o f DELICA) 33 00:00: up to 4 [place] gauge Misc 00 times a Medica l day E10.65 Branch insulin 0 Yes [id number] INJECT UP Univers aspart 06-11 TO 10 ity of U-100 00:00: UNITS [place] (NOVOLOG 00 UNDER THE Medica l FLEXPEN SKIN 3 Branch U-100 TIMES A INSULIN) DAY WITH A 100 unit/mL MEAL PER (3 mL) SLIDING injection SCALE Insulin Yes [id number] Use as Uni vers [place], 06-11 directed ity of Disposable, 00:00: four times [place] (BD 00 a day. Medical ULTRA-FINE DX:E10.65 Bran ch MICRO PEN NEEDLE) 32 gauge x 1/4" Ndle blood sugar Yes [id number] Use as Univers diagnostic 06-11 directed ity o f (TRUE 00:00: up to 4 [place] METRIX 00 times a Medical GLUCOSE day Branch TEST STRIP) strip lancets Yes [id number] Use as Uni vers (ONE TOUCH 06-11 directed ity o f DELICA) 33 00:00: up to 4 [place] gauge Misc 00 times a Medica l day E10.65 Branch insulin Yes [id number] INJECT UP Univers aspart 06-11 TO 10 ity of U-100 00:00: UNITS [place] (NOVOLOG 00 UNDER THE Medica l FLEXPEN SKIN 3 Branch U-100 TIMES A INSULIN) DAY WITH A 100 unit/mL MEAL PER (3 mL) SLIDING injection SCALE Insulin Yes [id number] Use as Uni vers [place], 06-11 directed ity of Disposable, 00:00: four times [place] (BD 00 a day. Medical ULTRA-FINE DX:E10.65 Bran ch MICRO PEN NEEDLE) 32 gauge x 1/4" Ndle blood sugar Yes [id number] Use as Univers diagnostic 06-11 directed ity o f (TRUE 00:00: up to 4 [place] METRIX 00 times a Medical GLUCOSE day Branch TEST STRIP) strip lancets Yes [id number] Use as Uni vers (ONE TOUCH 06-11 directed ity o f DELICA) 33 00:00: up to 4 [place] gauge Misc 00 times a Medica l day E10.65 Branch insulin Yes [id number] INJECT UP Univers aspart 06-11 TO 10 ity of U-100 00:00: UNITS [place] (NOVOLOG 00 UNDER THE Medica l FLEXPEN SKIN 3 Branch U-100 TIMES A INSULIN) DAY WITH A 100 unit/mL MEAL PER (3 mL) SLIDING injection SCALE Insulin Yes [id number] Use as Uni vers [place], 06-11 directed ity of Disposable, 00:00: four times [place] (BD 00 a day. Medical ULTRA-FINE DX:E10.65 Bran ch MICRO PEN NEEDLE) 32 gauge x 1/4" Ndle blood sugar Yes [id number] Use as Univers diagnostic 06-11 directed ity o f (TRUE 00:00: up to 4 [place] METRIX 00 times a Medical GLUCOSE day Branch TEST STRIP) strip lancets Yes [id number] Use as Uni vers (ONE TOUCH 06-11 directed ity o f DELICA) 33 00:00: up to 4 [place] gauge Misc 00 times a Medica l day E10.65 Branch insulin Yes [id number] INJECT UP Univers aspart 06-11 TO 10 ity of U-100 00:00: UNITS [place] (NOVOLOG 00 UNDER THE Medica l FLEXPEN SKIN 3 Branch U-100 TIMES A INSULIN) DAY WITH A 100 unit/mL MEAL PER (3 mL) SLIDING injection SCALE Insulin Yes [id number] Use as Uni vers [place], 06-11 directed ity of Disposable, 00:00: four times [place] (BD 00 a day. Medical ULTRA-FINE DX:E10.65 Bran ch MICRO PEN NEEDLE) 32 gauge x 1/4" Ndle blood sugar Yes [id number] Use as Univers diagnostic 06-11 directed ity o f (TRUE 00:00: up to 4 [place] METRIX 00 times a Medical GLUCOSE day Branch TEST STRIP) strip lancets Yes [id number] Use as Uni vers (ONE TOUCH 06-11 directed ity o f DELICA) 33 00:00: up [place] 4 [place] gauge Misc 00 times a Medica l day E10.65 Branch insulin 2021- No [id number] 24U inject 24 Univers degludec 06-11 11-19 Units ity of (TRESIBA 00:00: 00:00 under the [place] FLEXTOUCH 00 :00 skin every Medi geena U-100) 100 morning. Branc h unit/mL (3 mL) InPn Insulin NPH 2021- No [id number] 24 units Univers Human 06-0409 every ity of [place] 00:00: 00:00 morning(2A [place] (NOVOLIN N 00 :00 M) and 12 Medi geena FLEXPEN) units Branch 100 unit/mL before (3 mL) bedtime ( injection 4PM) insulin 2021- No [id number] INJECT UP Univers aspart 06-04 TO 10 ity of U-100 00:00: 00:00 UNITS [place] (NOVOLOG 00 :00 UNDER THE Medica l FLEXPEN SKIN 3 Branch U-100 TIMES A INSULIN) DAY WITH A 100 unit/mL MEAL PER (3 mL) SLIDING injection SCALE lancets 2021- No [id number] Use as Un thomas (ONE TOUCH 01-04 directed ity of DELICA) 33 00:00: 00:00 up to 4 [place] as gauge Misc 00 :00 times a Medica l day E10.65 Branch TRUE METRIX 2021- No [id number] Use as Univers GLUCOSE 01-04 directed ity of TEST STRIP 00:00: 00:00 up to 4 [place] as strip 00 :00 times a Medical day Branch Insulin 2021- No [id number] Use as Un thomas [place], 11-23 directed ity of Disposable, 00:00: 00:00 four times [place] (BD 00 :00 a day. Medical ULTRA-FINE DX:E10.65 Bran MICRO PEN NEEDLE) 32 gauge x 1/4" Ndle [facility] Yes [id number] Use as Un thomas VERIO IQ 3-13 directed ity of METER Kit 00:00: [place]10.65 [place] 00 [facility] Yes [id number] Use as Un thomas VERIO IQ 3-13 directed ity of METER Kit 00:00: TID E10.65 [place] [facility] Yes [id number] Use as Un thomas VERIO IQ 3-13 directed ity of METER Kit 00:00: TID E10.65 [place] [facility] Yes [id number] Use as Un thomas VERIO IQ 3-13 directed ity of METER Kit 00:00: TID E10.65 [place] [facility] Yes [id number] Use as Un thomas VERIO IQ 3-13 directed ity of METER Kit 00:00: TID E10.65 [place] [facility] Yes [id number] Use as Un thomas VERIO IQ 3-13 directed ity of METER Kit 00:00: TID E10.65 [place] [facility] Yes [id number] Use as Un thomas VERIO IQ 3-13 directed ity of METER Kit 00:00: TID E10.65 [place] Medical Branch ONETOUCH 2019-0 Yes [id number] Use as Un thomas VERIO IQ 3-13 directed ity of METER Kit 00:00: TID E10.65 [place] Branch ONETOUCH 2019-0 Yes [id number] Use as Un thomas VERIO IQ 3-13 directed ity of METER Kit 00:00: TID E10.[address] Branch insulin 2017-11 Yes 27U QD [...] Source Systolic blood 2022-06-11 16:53:00 120 mm[Hg] [facility] pressure [facility] Diastolic blood 2022-06-11 16:53:00 81 mm[Hg] [facility] pressure [facility] Heart rate 2022-06-11 16:53:00 93 /min [facility] Body weight 2022-06-11 16:53:00 76.431 kg [facility] BMI 2022-06-11 16:53:00 30.82 kg/m2 [facility] Oxygen saturation 2022-06-11 16:53:00 98 /min [facility] in Arterial blood Medical Br anch by Pulse oximetry Procedures Procedure Date / Time Performed Performing Clinician [facility] e POCT HEMOGLOBIN A1C 2022-06-11 16:56:00 Beatriz Winters [facility] [id number] 2020-11-30 00:00:00 [facility] [id number] 2020-11-30 00:00:00 [facility] Encounters Start End Encounter Admission Attending Care Care Encounter Source Date/Time Date/Time Type Type Clinicians Facility Department ID 2021-08-31 [address] [facility] [id number] Univers 10:13:06 ANSELMO FIGUEROA it y of [facility] 2020-11-29 Inpatient EM Jose, [facility] LD [id number] [facility] 20:33:00 Ziad 65 [facility] 2020-11-22 Inpatient EL Jose, [facility] OBANTE [id number] [facility] 10:30:00 Ziad 82 [facility] 2020-09-28 Inpatient Jose, [facility] TONY [id number] [facility] 03:41:00 Ziad 79 [facility] 2020-09-26 Inpatient EL Jose, [facility] INTE [id number] [facility] 12:48:00 Ziad 85 [facility] 2020-08-05 Inpatient [facility] JED [id number] [facility] 00:52:00 53 [facility] 2023-04-11 2023-04-[address] [facility] [id number] [place] 14:02:45 14:02:45 [id number] Abel 2023-01-03 2023-01-03 [facility] [id number] Univers 00:00:00 00:00:00 [place] 350.1.13.10 it y of [place] 4.2.7.2.686 [place] as JURGEN?BLEA [id number] [address] MEDICAL OFFICE BUILDING 2022-12-23 2022-12-23 Telephone Jarad NHDERRELL [id number] Univers 00:00:00 00:00:00 [place] [facility] 350.1.13.10 it y [facility] 4.2.7.2.686 [place] JURGEN?BLEA [id number] [address] MEDICAL OFFICE [facility] 2022-11-26 2022-11-26 Outpatient R WINTERS, [facility] [id number] Univers 12:00:00 12:00:00 [facility] ity [facility] 2022-09-20 2022-09-20 [facility] [id number] Univers 00:00:00 00:00:00 [facility] 350.1.13.10 it y of [facility] 4.2.7.2.686 [place] as JURGEN?BLEA [id number] [address] MEDICAL OFFICE [facility] 2022-06-11 2022-06-11 Outpatient R WINTERS, [facility] [id number] Univers 12:00:00 12:40:04 [facility] 2022-06-11 2022-06-11 Office [facility] [id number] Univers 12:00:00 12:40:04 Visit [facility] 350.1.13.10 it y of [place] 4.2.7.2.686 [place] as JURGEN?BLEA [id number] [address] MEDICAL OFFICE [facility] 2022-06-11 2022-06-11 Outpatient R WINTERS, [facility] [id number] Univers 12:00:00 12:00:00 [facility] 2022-06-11 2022-06-11 Orders Doctor LAZARO Harirngton2.840.114 [id number] Univers 00:00:00 00:00:00 Only Unassigned, GENARO 350.1.13.10 ity of [place] [facility] 4.2.7.2.686 [place] as [id number] [address] 2022-02-25 2022-02-25 Orders Doctor LAZARO Harrington2.840.114 [id number] Univers 00:00:00 00:00:00 Only Unassigned, GENARO 350.1.13.10 ity of [place] [facility] 4.2.7.2.686 [place] as [id number] [address] 2020-11-22 2020-11-22 Outpatient LIZY Corrales REFE [id number] [facility] 14:51:00 14:51:00 Ziad 76 [facility] 2020-09-26 2020-09-26 Outpatient LIZY Corrales REFE [id number] [facility] 17:05:00 17:05:00 Ziad 75 [facility] 2020-09-20 2020-09-20 [facility] [id number] 00:00:00 [facility]:00:[facility] 350.1.13.10 [place] 4.2.7.2.686 Professio [id number] nal 220 [facility] 2020-07-16 2020-07-16 [facility] 1.2.840.114 [id number] 00:00:00 00:00:00 [facility] 350.1.13.10 [place] 4.2.7.2.686 Professio [id number] [address] 2020-06-20 2020-06-20 [facility] [id number] Univers 10:00:00 10:00:00 [facility] 2020-05-30 2020-05-30 Outpatient R [facility] [id number] Univers 08:00:00 08:00:00 [facility] 2020-05-09 2020-05-09 [facility] [id number] Univers 14:00:00 14:00:00 [facility] 2020-01-05 2020-01-05 [facility] [id number] Univers 11:00:00 11:00:00 [facility] Results Test Description Test Time Test Comments Results Result Comments Source POCT HEMOGLOBIN A1C TEST 2022-06-11 16:56:00 Test Item Value Reference Range Interpretation Comme nts POCT HBA1C (test code = 4548-4) 14 % 4-6 A Lab Interpretation (test code = 53999-7) Abnormal [facility] [id number] 07:05:48 Test Item Value Reference Range Interpretation Comments HEMOGLOBIN A1c (test 12.7 % 4.2-5.6 H AMERIC AN DIABETES code = 20322) ASSOCIATION IDELINES FOR HGB A1C: PREDIABETES/INC REASED [...] OTHERWIS E INDICATED, ALL TESTING PER FORMED [employer], [facility]. [address] [place] [address] LABORATORY DIRE CTOR: Ca HOOVER. CLIA NUMBER [id number] CAP ACCREDITATION N O. [id number] ALBUMIN/CREATININE RATIO, URINE, [id number] 04:35:05 Test Item Value Reference Range Interpretation Comments CREATININE, URINE, 151.8 MG/DL NOT ESTAB RANDOM (test code = 2072) ALBUMIN, URINE, 212.2 MG/DL NOT ESTAB RANDOM (test code = 40452) CALC ALBUMIN/CREAT, 1398 MG/G <30 H Note: RND (test code = Albumin/Cre atinine 19594) ratio reference interval reflec ts ADA and NKF guideli svitlana. PLACENTA THIRD [id number] 11:28:00 Test Item Value Reference Range Interpretation Comments PLACENTA THIRD TRIMESTER (test code = PLACIII) RUN DATE: 12/07/20 [facility] PAGE 1 RUN TIME: 1403 Specimen Inquiry RUN USER: INTERFACE PATIENT: TASHI MOSQUERA LOC: MICHAEL U #: [id number] AGE/SX: ROOM: [place] RE11/29/20REG DR: Natalie Corrales MD : 89 BED: A DIS: 12/03/20 STATUS: DIS IN TLOC: SPEC #: [id number] RECD: 12/01/20 STATUS: REKHA RECandelaria #: [id number] THERESE: 11/30/20- SUBM DR: Natalie Corrales MD ENTERED: 12/01/20 SP TYPE: PLACIII OTHR DR: ORDERED: LEVEL V SURGICA CODES: [id number] - PLACENTA, NOS PROCEDURES: LEVEL V SURGICA [...] risk for recurrence in future pregnancies. CPT: 41107 [facility]/wpd GROSS DESCRIPTION The specimen was received in a container, labeled with the patient's name, unit number and designated "placenta". The following attributes are observed: Cord insertion: 1 cm from margin CONTINUED ON NEXT PAGE RUN DATE: 12/07/20 [facility] PAGE 2 RUN TIME: 1403 Specimen Inquiry RUN USER: INTERFACE SPEC #: [id number] PATIENT: TASHI MOSQUERA #[id number] (Continued) --- GROSS DESCRIPTION (Continued) Cord length: [...] Olive Young 12/07/20 1128 END OF REPORT [id number] 11:58:00 Test Item Value Reference Range Interpretation Comments GLUBED (test code = GLUBED) 71 mg/dL 65-110 N [id number] 06:51:00 Test Item Value Reference Range Interpretation Comments GLUBED (test code = GLUBED) 80 mg/dL 65-110 N [id number] 21:24:00 Test Item Value Reference Range Interpretation Comments GLUBED (test code = GLUBED) 103 mg/dL 65-110 N [id number] 15:15:00 Test Item Value Reference Range Interpretation Comments GLUBED (test code = GLUBED) 206 mg/dL 65-110 H [id number] 09:56:00 Test Item Value Reference Range Interpretation Comments GLUBED (test code = GLUBED) 200 mg/dL 65-110 H [id number] 06:48:00 Test Item Value Reference Range Interpretation Comments GLUBED (test code = GLUBED) 64 mg/dL 65-110 L [id number] 21:12:00 Test Item Value Reference Range Interpretation Comments GLUBED (test code = GLUBED) 186 mg/dL 65-110 H [id number] 14:15:00 Test Item Value Reference Range Interpretation Comments GLUBED (test code = GLUBED) 177 mg/dL 65-110 H [id number] 10:42:00 Test Item Value Reference Range Interpretation Comments GLUBED (test code = GLUBED) 242 mg/dL 65-110 H [id number] [id number] 08:21:00 Test Item Value Reference Range Interpretation Comments HEMOGLOBIN (test code = HGB) 11.7 g/dL 10.7-13.9 N HEMATOCRIT (test code = HCT) 36.4 % 32.1-42.1 N [id number] 06:49:00 Test Item Value Reference Range Interpretation Comments GLUBED (test code = GLUBED) 115 mg/dL 65-110 H [id number] 22:46:00 Test Item Value Reference Range Interpretation Comments GLUBED (test code = GLUBED) 129 mg/dL 65-110 H [id number] 19:28:00 Test Item Value Reference Range Interpretation Comments GLUBED (test code = GLUBED) 221 mg/dL 65-110 H [id number] 17:42:00 Test Item Value Reference Range Interpretation Comments GLUBED (test code = GLUBED) 359 mg/dL 65-110 H [id number] 10:51:00 Test Item Value Reference Range Interpretation Comments GLUBED (test code = GLUBED) 126 mg/dL 65-110 H ARTERIAL BLOOD [id number] 10:01:00 Test Item Value Reference Range Interpretation [...] FIO2 (test code = FIO2A) 21.0 % PaO2/[id number] 10:01:00 Test Item Value Reference Range Interpretation Comments PaO2/FiO2 (test code = XWV1LBL9) mm/Hg ARTERIAL BLOOD [id number] 10:01:00 Test Item Value Reference Range Interpretation [...] FIO2 (test code = FIO2A) 21.0 % PaO2/[id number] 10:01:00 Test Item Value Reference Range Interpretation Comments PaO2/FiO2 (test code = RRI2PIX9) 70.40 mm/Hg CAPILLARY BLOOD [id number] 10:00:00 Test Item Value Reference Range Interpretation [...] FIO2 (test 21.0 % code = FIO2C) [id number] 06:32:00 Test Item Value Reference Range Interpretation Comments GLUBED (test code = GLUBED) 183 mg/dL 65-110 H [id number] 02:15:00 Test Item Value Reference Range Interpretation Comments GLUBED (test code = GLUBED) 82 mg/dL 65-110 N [id number] 22:52:00 Test Item Value Reference Range Interpretation Comments GLUBED (test code = GLUBED) 200 mg/dL 65-110 H AG HEPATITIS B [id number] 22:46:00 Test Item Value Reference Range Interpretation Comments AG HEPATITIS B SURFACE (test code NONREACTIVE NONREACTIVE = HBSAG) IS CONSENT FORM SIGNED FOR HIV TESTING? YAB HEPATITIS C [id number] 22:46:00 Test Item Value Reference Range Interpretation Comments AB HEPATITIS C (test code = NONREACTIVE NONREACTIVE HCVAB) SIGNAL TO CUTOFF (test code = 0.03 <0.80 N CUTOFF) IS CONSENT FORM SIGNED FOR HIV TESTING? YAB [id number] 22:46:00 Test Item Value Reference Range Interpretation Comments AB TREPONEMA (test code = TREPAB) NONREACTIVE NONREACTIVE IS CONSENT FORM SIGNED FOR HIV TESTING? YAB HIV 1 22:46:00 Test Item Value Reference Range Interpretation Comments AB HIV 1 2 (test NONREACTIVE NONREACTIVE [facility] = [id number]) 4th Gen HIV Ag/Ab Combo Screen IS CONSENT FORM SIGNED FOR HIV TESTING? YAG HEPATITIS B [id number] 22:16:00 Test Item Value Reference Range Interpretation Comments AG HEPATITIS B SURFACE (test code NONREACTIVE NONREACTIVE = HBSAG) IS CONSENT FORM SIGNED FOR HIV TESTING? YAB HEPATITIS C [id number] 22:16:00 Test Item Value Reference Range Interpretation Comments AB HEPATITIS C (test code = HCVAB) NONREACTIVE SIGNAL TO CUTOFF (test code = CUTOFF) <0.80 IS CONSENT FORM SIGNED FOR HIV TESTING? YAB [id number] 22:16:00 Test Item Value Reference Range Interpretation Comments AB TREPONEMA (test code = TREPAB) NONREACTIVE NONREACTIVE IS CONSENT FORM SIGNED FOR HIV TESTING? YAB HIV 1 22:16:00 Test Item Value Reference Range Interpretation Comments AB HIV 1 2 (test code = ICR94YM) NONREACTIVE IS CONSENT FORM SIGNED FOR HIV TESTING? YCBC W/AUTO [id number] 21:47:00 Test Item Value Reference Range Interpretation [...] code = PLTMR) COVID 19 Asymptomatic IH [id number] 21:44:00 Test Item Value Reference Range Interpretation [...] of Accreditation. This test is only authori marck for the duration of thedeclaration that circumstances e xist justifying theauthorizatio n of emergency use o f in vitro diagnostic test sfor detection and/o r diagnosis of CO VID-19 under Wclzbcg36 4(b)(1) of the Act, 21 U.S .C. 360bbb-3(b)(1), unless theauthorizatio n is terminated or r evoked sooner. [id number] 10:30:00 Test Item Value Reference Range Interpretation Comments GLUBED (test code = GLUBED) 105 mg/dL 65-110 N [id number] 06:29:00 Test Item Value Reference Range Interpretation Comments GLUBED (test code = GLUBED) 126 mg/dL 65-110 H [id number] 01:02:00 Test Item Value Reference Range Interpretation Comments GLUBED (test code = GLUBED) 72 mg/dL 65-110 N [id number] 20:42:00 Test Item Value Reference Range Interpretation Comments GLUBED (test code = GLUBED) 88 mg/dL 65-110 N [id number] 14:39:00 Test Item Value Reference Range Interpretation Comments GLUBED (test code = GLUBED) 149 mg/dL 65-110 H [id number] 11:20:00 Test Item Value Reference Range Interpretation Comments GLUBED (test code = GLUBED) 74 mg/dL 65-110 N [id number] 06:28:00 Test Item Value Reference Range Interpretation Comments GLUBED (test code = GLUBED) 103 mg/dL 65-110 N [id number] 06:28:00 Test Item Value Reference Range Interpretation Comments GLUBED (test code = GLUBED) 76 mg/dL 65-110 N [id number] 22:06:00 Test Item Value Reference Range Interpretation Comments GLUBED (test code = GLUBED) 78 mg/dL 65-110 N [id number] 16:07:00 Test Item Value Reference Range Interpretation Comments GLUBED (test code = GLUBED) 167 mg/dL 65-110 H [id number] 10:42:00 Test Item Value Reference Range Interpretation Comments GLUBED (test code = GLUBED) 130 mg/dL 65-110 H [id number] 04:47:00 Test Item Value Reference Range Interpretation Comments GLUBED (test code = GLUBED) 78 mg/dL 65-110 N [id number] 20:47:00 Test Item Value Reference Range Interpretation Comments GLUBED (test code = GLUBED) 160 mg/dL 65-110 H [id number] 14:52:00 Test Item Value Reference Range Interpretation Comments GLUBED (test code = GLUBED) 235 mg/dL 65-110 H [id number] 10:54:00 Test Item Value Reference Range Interpretation Comments GLUBED (test code = GLUBED) 148 mg/dL 65-110 H [id number] 07:01:00 Test Item Value Reference Range Interpretation Comments GLUBED (test code = GLUBED) 82 mg/dL 65-110 N [id number] 06:05:00 Test Item Value Reference Range Interpretation Comments GLUBED (test code = GLUBED) 61 mg/dL 65-110 L [id number] 20:39:00 Test Item Value Reference Range Interpretation Comments GLUBED (test code = GLUBED) 312 mg/dL 65-110 H GLYCOSYLATED HEMOGLOBIN [id number] 17:32:00 Test Item Value Reference Range Interpretation [...] H (test code = MBG) COMPREHENSIVE METABOLIC [id number] 17:32:00 Test Item Value Reference Range Interpretation [...] considered for these patients. AG HEPATITIS B [id number] 15:30:00 Test Item Value Reference Range Interpretation Comments AG HEPATITIS B SURFACE (test code NONREACTIVE NONREACTIVE = HBSAG) IS CONSENT FORM SIGNED FOR HIV TESTING? YAB HEPATITIS C [id number] 15:30:00 Test Item Value Reference Range Interpretation Comments AB HEPATITIS C (test code = NONREACTIVE NONREACTIVE HCVAB) SIGNAL TO CUTOFF (test code = 0.02 <0.80 N CUTOFF) IS CONSENT FORM SIGNED FOR HIV TESTING? YAB [id number] 15:30:00 Test Item Value Reference Range Interpretation Comments AB TREPONEMA (test code = TREPAB) NONREACTIVE NONREACTIVE IS CONSENT FORM SIGNED FOR HIV TESTING? YAB HIV 1 15:30:00 Test Item Value Reference Range Interpretation Comments AB HIV 1 2 (test NONREACTIVE NONREACTIVE Done by [facility] code = [id number]) 4th Gen HIV Ag/Ab Combo Screen IS CONSENT FORM SIGNED FOR HIV TESTING? [id number] 15:23:00 Test Item Value Reference Range Interpretation Comments GLUBED (test code = GLUBED) 266 mg/dL 65-110 H COVID 19 Asymptomatic IH [id number] 15:16:00 Test Item Value Reference Range Interpretation [...] and/o r diagnosis of CO VID-19 under Jhayzbo24 4(b)(1) of the Act, 21 U.S .C. 360bbb-3(b)(1), unless theauthorizatio n is terminated or r evoked sooner. AG HEPATITIS B [id number] 15:08:00 Test Item Value Reference Range Interpretation Comments AG HEPATITIS B SURFACE (test code NONREACTIVE NONREACTIVE = HBSAG) IS CONSENT FORM SIGNED FOR HIV TESTING? YAB HEPATITIS C [id number] 15:08:00 Test Item Value Reference Range Interpretation Comments AB HEPATITIS C (test code = HCVAB) NONREACTIVE SIGNAL TO CUTOFF (test code = CUTOFF) <0.80 IS CONSENT FORM SIGNED FOR HIV TESTING? YAB [id number] 15:08:00 Test Item Value Reference Range Interpretation Comments AB TREPONEMA (test code = TREPAB) NONREACTIVE NONREACTIVE IS CONSENT FORM SIGNED FOR HIV TESTING? YAB HIV 1 15:08:00 Test Item Value Reference Range Interpretation Comments AB HIV 1 2 (test code = [id number]) NONREACTIVE IS CONSENT FORM SIGNED FOR HIV TESTING? YUR PROTEIN/CREATININE [id number] 14:46:00 Test Item Value Reference Range Interpretation Comments UR PROTEIN RANDOM (test code = 11.5 mg/dL PROTU) UR CREATININE RANDOM (test 24.6 mg/dL code = CREATU) PROTEIN/CREATININE RATIO (test 460.0 mg/gcrea <200 H code = P/CRATIO) COMPREHENSIVE METABOLIC [id number] 14:38:00 Test Item Value Reference Range Interpretation [...] (HA1C) (test code = GLYHGB) CBC W/AUTO [id number] 14:26:00 Test Item Value Reference Range Interpretation [...] NORMAL NORMAL code = PLTMR) - US [id number] 06:06:00 [facility] 1995 Sex: F Patient Name: TASHI MOSQUERA Unit No: [id number] EXAMS: CPT CODE: [id number] [place] LTD 20125 STUDY: - US LTD 09/28/2020 5:04 AM Ordering Physician: Cipriano Alex III, MD Patient Name: TASHI MOSQUERA MR: [id number] : 1995; Age: 25 years y/o Female [...] weeks 3 days as above described. The [facility] NAME: TASHI MOSQUERA Radiology Department PHYS: Cipriano Michelle III, MD [address] : 1995 AGE: 25 SEX: F [place], [place] [address] LOC: F.TONY PHONE #: [phone] EXAM DATE: 09/28/2020 STATUS: REG ER FAX #: [phone] RAD NO: Page 1 Signed Report (CONTINUED) Patient Name: TASHI MOSQUERA Unit No: [id number] EXAMS: CPT CODE: [id number] [place] LTD 23634 (Continued) ALEXY 17.8 cm. Trace fluid in theendocervical canal. The structures are not individually characterized on this examination, butno abnormality is demonstrated. GENERAL OBSERVATIONS REGARDING ULTRASOUND: [...] signed by: Arpit Jaffe MD CC: Natalie Corrales MD; Cipriano Alex III, MD Technologist: ERICA ZHOU RDMS, T Probe: Trnscrbd D/ (06) t.SDR.TP6 Orig Print D/T: S: 09/28/2020 (0609) [facility] NAME: [facility] Radiology Department PHYS: Cipriano Michelle III, MD [address] : 1995 AGE: 25 SEX: F [place] [address] LOC: Saloni.TONY PHONE #: [phone] EXAM DATE: 09/28/2020 STATUS: REG ER FAX #: [phone] RAD NO: Page 2 Signed Report Patient Name: TASHI MOSQUERA Unit No: [id number] EXAMS: CPT CODE: [id number] [place] LTD 18703 (Continued) [facility] NAME: [facility] Radiology Department PHYS: Cipriano Michelle III, MD [address] OB: 1995 AGE: 25 SEX: F [place], [place] [address] LOC: Saloni.TONY PHONE #: [phone] EXAM DATE: 09/28/2020 STATUS: REG ER FAX #: [phone] RAD NO: Page 3 Signed ReportURINALYSIS [id number] 05:32:00 Test Item Value Reference Range Interpretation [...] SEEN Specimen Comment: JOSE ROSALES SAMPLE: CLEAN [id number] 05:29:00 Test Item Value Reference Range Interpretation Comments GLUBED (test code = GLUBED) 91 mg/dL 65-110 N [id number] 14:54:00 Test Item Value Reference Range Interpretation Comments GLUBED (test code = GLUBED) 95 mg/dL 65-110 N [id number] 14:54:00 Test Item Value Reference Range Interpretation Comments GLUBED (test code = GLUBED) 124 mg/dL 65-110 H [id number] 14:54:00 Test Item Value Reference Range Interpretation Comments GLUBED (test code = GLUBED) 131 mg/dL 65-110 H COMPREHENSIVE METABOLIC [id number] 12:46:00 Test Item Value Reference Range Interpretation [...] 44 units/L 46-116 L code = ALKP) [id number] 12:46:00 Test Item Value Reference Range Interpretation Comments PHOSPHOROUS (test code = PHOS) 1.6 mg/dL 2.5-4.9 L [id number] 12:46:00 Test Item Value Reference Range Interpretation Comments MAGNESIUM (test code = MAG) 1.7 mg/dL 1.8-2.4 L CBC W/AUTO [id number] 12:04:00 Test Item Value Reference Range Interpretation [...] REQUIRED (test NORMAL NORMAL code = PLTMR) [id number] 10:33:00 Test Item Value Reference Range Interpretation Comments GLUBED (test code = GLUBED) 136 mg/dL 65-110 H [id number] 10:33:00 Test Item Value Reference Range Interpretation Comments GLUBED (test code = GLUBED) 180 mg/dL 65-110 H COMPREHENSIVE METABOLIC [id number] 07:48:00 Test Item Value Reference Range Interpretation [...] 42 units/L 46-116 L code = ALKP) [id number] 07:48:00 Test Item Value Reference Range Interpretation Comments PHOSPHOROUS (test code = PHOS) 1.6 mg/dL 2.5-4.9 L [id number] 07:48:00 Test Item Value Reference Range Interpretation Comments MAGNESIUM (test code = MAG) 1.6 mg/dL 1.8-2.4 L [id number] 07:06:00 Test Item Value Reference Range Interpretation Comments GLUBED (test code = GLUBED) 184 mg/dL 65-110 H [id number] 06:27:00 Test Item Value Reference Range Interpretation Comments GLUBED (test code = GLUBED) 187 mg/dL 65-110 H COMPREHENSIVE METABOLIC [id number] 05:46:00 Test Item Value Reference Range Interpretation [...] 42 units/L 46-116 L code = ALKP) [id number] 05:46:00 Test Item Value Reference Range Interpretation Comments MAGNESIUM (test code = MAG) 1.6 mg/dL 1.8-2.4 L CBC W/AUTO [id number] 05:34:00 Test Item Value Reference Range Interpretation [...] REQUIRED (test NORMAL NORMAL code = PLTMR) [id number] 05:22:00 Test Item Value Reference Range Interpretation Comments GLUBED (test code = GLUBED) 208 mg/dL 65-110 H [id number] 04:21:00 Test Item Value Reference Range Interpretation Comments GLUBED (test code = GLUBED) 210 mg/dL 65-110 H [id number] 03:22:00 Test Item Value Reference Range Interpretation Comments GLUBED (test code = GLUBED) 229 mg/dL 65-110 H [id number] 02:22:00 Test Item Value Reference Range Interpretation Comments GLUBED (test code = GLUBED) 247 mg/dL 65-110 H [id number] 01:34:00 Test Item Value Reference Range Interpretation Comments GLUBED (test code = GLUBED) 261 mg/dL 65-110 H [id number] 00:21:00 Test Item Value Reference Range Interpretation Comments GLUBED (test code = GLUBED) 276 mg/dL 65-110 H [id number] 23:23:00 Test Item Value Reference Range Interpretation Comments GLUBED (test code = GLUBED) 282 mg/dL 65-110 H [id number] 22:29:00 Test Item Value Reference Range Interpretation Comments GLUBED (test code = GLUBED) 193 mg/dL 65-110 H [id number] 22:29:00 Test Item Value Reference Range Interpretation Comments GLUBED (test code = GLUBED) 172 mg/dL 65-110 H [id number] 22:29:00 Test Item Value Reference Range Interpretation Comments GLUBED (test code = GLUBED) 123 mg/dL 65-110 H [id number] 22:29:00 Test Item Value Reference Range Interpretation Comments GLUBED (test code = GLUBED) 158 mg/dL 65-110 H [id number] 22:29:00 Test Item Value Reference Range Interpretation Comments GLUBED (test code = GLUBED) 192 mg/dL 65-110 H COMPREHENSIVE METABOLIC [id number] 21:00:00 Test Item Value Reference Range Interpretation [...] T 09/26/202058. ANION GAP (test code 18.70 -20 N = GAP) GLUCOSE (test code = [...] units/L 46-116 TOTAL (test code = ALKP) [id number] 21:00:00 Test Item Value Reference Range Interpretation Comments PHOSPHOROUS (test code = PHOS) 1.8 mg/dL 2.5-4.9 L [id number] 21:00:00 Test Item Value Reference Range Interpretation Comments MAGNESIUM (test code = MAG) 1.4 mg/dL 1.8-2.4 L OSMOLALITY [id number] 20:51:00 Test Item Value Reference Range Interpretation Comments OSMOLALITY SERUM (test code = 296 mOsm/kg 275-295 H OSMO) OSMOLALITY [id number] 20:51:00 Test Item Value Reference Range Interpretation [...] be considered for these patients. GLYCOSYLATED HEMOGLOBIN [id number] 20:49:00 Test Item Value Reference Range Interpretation Comments GLYCOSYLATED 13.7 % 4.8-5.9 H Any condition t hat HEMOGLOBIN (HA1C) shortens e rythocyte (test code = survival or dec reasesmean GLYHGB) erythrocyte age (e.g., recovery from a cute blood loss,hemolytic anemia) will falsely lo wer HGBA1c resultsregardle ss of the method used. HG BA1c results from pa tientswith HbSS, HbCC, and HbSc must be interpreted with cautiongiven th e pathological pr ocesses, including anemia,increase d red cell turnover, trans fusion requirements, thatadversely i mpact HGBA1c as a mar ker of long-term glycemiccontrol . Alternative for ms of testing such as fructosaminesho uld be considered for these patients. MEAN BLOOD GLUCOSE 346 MG/DL 70-110 H (test code = MBG) CBC W/AUTO [id number] 19:25:00 Test Item Value Reference Range Interpretation [...] NORMAL NORMAL code = PLTMR) VBG IONIZED [id number] 19:21:00 Test Item Value Reference Range Interpretation Comments VBG IONIZED CALCIUM (test code = 1.06 mmol/L 0.9-1.29 N ICAL/VBG) COMPREHENSIVE METABOLIC [id number] 19:09:00 Test Item Value Reference Range Interpretation [...] 46-116 N TOTAL (test code = ALKP) [id number] 19:09:00 Test Item Value Reference Range Interpretation Comments PHOSPHOROUS (test code = PHOS) 1.9 mg/dL 2.5-4.9 L [id number] 19:09:00 Test Item Value Reference Range Interpretation Comments MAGNESIUM (test code = MAG) 1.5 mg/dL 1.8-2.4 L [id number] 17:36:00 Test Item Value Reference Range Interpretation Comments GLUBED (test code = GLUBED) 212 mg/dL 65-110 H UR PROTEIN/CREATININE [id number] 17:25:00 Test Item Value Reference Range Interpretation Comments UR PROTEIN RANDOM 56.6 mg/dL (test code = PROTU) UR CREATININE 11.1 mg/dL RANDOM (test code = CREATU) PROTEIN/CREATININE 5090.0 <200 H RESULTS V ERIFIED BY RATIO (test code = mg/gcrea REPEAT AN ALYSISRESULTS P/CRATIO) CALLED TO SASHA READ BACK & CONFIRME D? YESBY F.LAB.TTT 09/26 1725 COMPREHENSIVE METABOLIC [id number] 17:24:00 Test Item Value Reference Range Interpretation [...] 46-116 N TOTAL (test code = ALKP) [id number] 17:24:00 Test Item Value Reference Range Interpretation Comments PHOSPHOROUS (test code = PHOS) 2.9 mg/dL 2.5-4.9 N [id number] 17:24:00 Test Item Value Reference Range Interpretation Comments AMYLASE (test code = CHELSIE) 77 units/L 30-110 N [id number] 17:24:00 Test Item Value Reference Range Interpretation Comments MAGNESIUM (test code = MAG) 1.7 mg/dL 1.8-2.4 L C REACTIVE [id number] 17:08:00 Test Item Value Reference Range Interpretation Comments C REACTIVE PROTEIN (test code = 0.2 mg/dL 0.6-1.2 L CRP) URINALYSIS [id number] 17:00:00 Test Item Value Reference Range Interpretation [...] = MUCU) RARE NONE SEEN CBC W/AUTO [id number] 16:53:00 Test Item Value Reference Range Interpretation [...] NORMAL NORMAL code = PLTMR) COMPREHENSIVE METABOLIC [id number] 13:57:00 Test Item Value Reference Range Interpretation [...] 48 units/L 46-116 N code = ALKP) [id number] 13:57:00 Test Item Value Reference Range Interpretation Comments LIPASE (test code = LIP) 85 units/L 73-393 N ACETONE [id number] 13:57:00 Test Item Value Reference Range Interpretation Comments ACETONE QUAL (test code = ACETNQL) NEGATIVE NEGATIVE BETA [id number] 13:57:00 Test Item Value Reference Range Interpretation Comments BETA HYDROBUTYRATE (test 2.2 mg/dL () Ref erence Range:All code = BETHYD) Ages (fasting ): 0.2 - 2.8Performed At: [facility] [address] [place] [address] [id number] danial Blanton MD Ph:[phone] [id number] 13:24:00 Test Item Value Reference Range Interpretation Comments GLUBED (test code = GLUBED) 169 mg/dL 65-110 H [id number] 11:17:00 Test Item Value Reference Range Interpretation Comments GLUBED (test code = GLUBED) 91 mg/dL 65-110 N [id number] 07:59:00 Test Item Value Reference Range Interpretation Comments GLUBED (test code = GLUBED) 162 mg/dL 65-110 H - US PREG UT [id number] 04:23:00 Patient Name: TASHI MOSQUERA Unit No: [id number] EXAMS: CPT CODE: [id number] US PREG UT TRANSVAGINAL 92467 STUDY: - US LTD, - US PREG UT TRANSVAGINAL 08/05/2020 12:59 AM Ordering Physician: Shira Arredondo MD Patient Name: TASHI MOSQUERA MR: [id number] : 1995; Age: 25 years y/o FemaleClinical Indication: 19weeks,5 days preg, abd pain Comparison: None FINDINGS: Multiple static imagesfrom a limited obstetrical ultrasound including olguin scale [...] 3.8-4.5 cm containing trace fluid Normal maternal leftovary measuring 2.8 x 2.0 x 2.2 cm. Nonvisualized maternal right ovary. STRUCTURES Brain: Not evaluated. Spine: Not evaluated. Heart: Not evaluated. heart rate: 130 beats per minute. Kidneys: Not evaluated. Urinary Bladder: Not evaluated. Stomach: Not evaluated. Umbilical Cord: Not evaluated. Cord Insertion: Not evaluated. Extremities: Not evaluated. BIOMETRIC MEASUREMENTS Not performed Small free pelvic fluid. [facility] NAME: TASHI MOSQUERA Radiology Department PHYS: Natalie Foley MD [address] : 1995 AGE: 25 SEX: F [place], [place] [address] LOC: F.2624 A PHONE #: [phone] EXAM DATE: 08/05/2020 STATUS: ADM IN FAX #: [phone] RAD NO: Page 1 Signed Report (CONTINUED) Patient Name: TASHI MOSQUERA Unit No: [id number] EXAMS: CPT CODE: [id number] PREG UT TRANSVAGINAL 87572 (Continued) IMPRESSION: Single live intrauterine at 19 [...] signed by: Arpit Jaffe MD CC: Natalie Corrales MD Technologist: Charlotte Kidd RDMS Probe: [id number] Trnscrbd D/ (042) t.HAYDENR.TP6 Orig Print D/T: S: 08/05/2020 (042) [facility] NAME: [facility] Radiology Department PHYS: Natalie Foley MD [address] : 1995 AGE: 25 SEX: F [place] [address] LOC: F.2624 A PHONE #: [phone] EXAM DATE: 08/05/2020 STATUS: ADM IN FAX #: [phone] RAD NO: Page 2 Signed Report Patient Name: TASHI MOSUQERA Unit No: [id number] EXAMS: CPT CODE: [id number] US PREG UT TRANSVAGINAL 10584 (Continued) [facility] NAME: [facility] Radiology Department PHYS: Natalie Foley MD [address] : 1995 AGE: 25 SEX: F [place] [address] LOC: F.2624 A PHONE #: [phone] EXAM DATE: 08/05/2020 STATUS: ADM IN FAX #: [phone] RAD NO: Page 3 Signed Report- US [id number] 04:23:00 Patient Name: TASHI MOSQUERA Unit No: [id number] EXAMS: CPT CODE: [id number] US LTD 28600 STUDY: - US LTD, - US PREG UT TRANSVAGINAL 08/05/2020 12:59 AM Ordering Physician: Shira Arredondo MD Patient Name: TASHI MOSQUERA MR: [id number] : 1995; Age: 25 years y/o Female [...] Not performed Small free pelvic fluid. The [facility] NAME: TASHI MOSQUERA Radiology Department PHYS: Shira Truong MD [address] : 1995 AGE: 25 SEX: F [place], [place] [address] LOC: F.2624 A PHONE #: [phone] EXAM DATE: 08/05/2020 STATUS: ADM IN FAX #: [phone] RAD NO: Page 1 Signed Report (CONTINUED) Patient Name: TASHI MOSQUERA Unit No: [id number] EXAMS: CPTCODE: [id number] LTD 79785 (Continued) IMPRESSION: Single live intrauterine at 19 [...] Charlotte Kidd RDMS Probe: Trnscrbd D/ (042) t.SDR.TP6 Orig Print D/T: S: 08/05/2020 (042) [facility] NAME: [facility] Radiology Department PHYS: Shira Truong MD [address] : 1995 AGE: 25 SEX: F [place] [address] LOC: F.2624 A PHONE #: [phone] EXAM DATE: 08/05/2020 STATUS: ADM IN FAX #: [phone] RAD NO: Page 2 Signed Report Patient [facility]: [facility] Unit No: [id number] EXAMS: CPT CODE: [id number] LTD 55501 (Continued) [facility] NAME: [facility] Radiology Department PHYS: Shira Truong MD [address] : 1995 AGE: 25 SEX: F [place] [address] LOC: F.2624 A PHONE #: [phone] EXAM DATE: 08/05/2020 STATUS: ADM IN FAX #: RAD NO: Page 3 Signed ReportARTERIAL BLOOD [id number] 03:03:00 Test Item Value Reference Range Interpretation [...] FIO2 (test code = FIO2A) 21.0 % PaO2/[id number] 03:03:00 Test Item Value Reference Range Interpretation Comments PaO2/FiO2 (test code = QNH3IXQ2) mm/Hg [id number] 03:03:00 Test Item Value Reference Range Interpretation Comments GLUCOSE (test code = GLU/ABG) 201 MG/DL 60-110 H ARTERIAL BLOOD [id number] 03:03:00 Test Item Value Reference Range Interpretation [...] FIO2 (test code = FIO2A) 21.0 % PaO2/[id number] 03:03:00 Test Item Value Reference Range Interpretation Comments PaO2/FiO2 (test code = WCS9NGV8) 471.40 mm/Hg [id number] 03:03:00 Test Item Value Reference Range Interpretation Comments GLUCOSE (test code = GLU/ABG) 201 MG/DL 60-110 H COMPREHENSIVE METABOLIC [id number] 02:23:00 Test Item Value Reference Range Interpretation [...] 48 units/L 46-116 N code = ALKP) [id number] 02:23:00 Test Item Value Reference Range Interpretation Comments LIPASE (test code = LIP) 85 units/L 73-393 N ACETONE [id number] 02:23:00 Test Item Value Reference Range Interpretation Comments ACETONE QUAL (test code = ACETNQL) NEGATIVE NEGATIVE BETA [id number] 02:23:00 Test Item Value Reference Range Interpretation Comments BETA HYDROBUTYRATE (test code = BETHYD) COOXIMETRY [id number] 02:14:00 Test Item Value Reference Range Interpretation Comments HEMOGLOBIN (test code = HGB/ABG) 13.0 g/dL 12-16 N HEMATOCRIT (test code = HCT/ABG) 38 % 37-47 N METHEMOGLOBIN (test code = METHGB) 0.6 % 0.0-1.5 N VENOUS BLOOD [id number] 02:14:00 Test Item Value Reference Range Interpretation [...] code = 21.0 % FIO2V) CBC W/AUTO [id number] 02:00:00 Test Item Value Reference Range Interpretation [...] = PLTMR) UA RFLX MICR CULT IF [id number] 01:47:00 Test Item Value Reference Range Interpretation [...] Suprapubic PainSpecimen Description: CLEAN CATCH COMPREHENSIVE METABOLIC [id number] 01:47:00 Test Item Value Reference Range Interpretation [...] 48 units/L 46-116 N code = ALKP) [id number] 01:47:00 Test Item Value Reference Range Interpretation Comments LIPASE (test code = LIP) 85 units/L 73-393 N ACETONE [id number] 01:47:00 Test Item Value Reference Range Interpretation Comments ACETONE QUAL (test code = ACETNQL) NEGATIVE BETA [id number] 01:47:00 Test Item Value Reference Range Interpretation Comments BETA HYDROBUTYRATE (test code = BETHYD) ISLET CELL AB [id number] 14:36:00 Test Item Value Reference Range Interpretation Comments ISLET CELL AB Refer to individual AUTOVERIFICATION (test Islet Cell Ab code = 2556) and/or Islet Cell Ab Titer results. BLOOD [id number] 00:00:00 Test Item Value Reference Range Interpretation Comments CULTURE (BEAKER) (test No growth in 5 days code = 1095) BLOOD [id number] 00:00:00 Test Item Value Reference Range Interpretation Comments CULTURE (BEAKER) (test No growth in 5 days code = 1095) POCT-GLUCOSE [id number] 12:04:00 Test Item Value Reference Range Interpretation Comments POC-GLUCOSE METER 178 mg/dL 70-110 H TESTED AT [facility] 6720 (BEAXS-One) (test code = [place] 1538) [address] POCT-GLUCOSE [id number] 07:46:00 Test Item Value Reference Range Interpretation Comments POC-GLUCOSE METER 210 mg/dL 70-110 H TESTED AT [facility] 6720 (BEAKER) (test code = [place] 1538) [address] CBC (HEMOGRAM ONLY)2018-08-23 06:39:00 Test Item Value [...] 0-0 (BEAKER) (test code = 413) POCT-GLUCOSE [id number] 22:06:00 Test Item Value Reference Range Interpretation Comments POC-GLUCOSE METER 157 mg/dL 70-110 H TESTED AT [place] [address] ([facility]) (test code = JOHANNY James [facility] 1538) [address] POCT-GLUCOSE [id number] 17:54:00 Test Item Value Reference Range Interpretation Comments POC-GLUCOSE METER 223 mg/dL 70-110 H TESTED AT [place] [address] ([facility]) (test code = JOHANNY James [place] 1538) [address] POCT-GLUCOSE [id number] 12:06:00 Test Item Value Reference Range Interpretation Comments POC-GLUCOSE METER 227 mg/dL 70-110 H TESTED AT [place] [address] ([facility]) (test code = JOHANNY James [place] 1538) [address] POCT-GLUCOSE [id number] 07:46:00 Test Item Value Reference Range Interpretation Comments POC-GLUCOSE METER 237 mg/dL 70-110 H TESTED AT [place] [address] ([facility]) (test code = JOHANNY James [facility] 1538) [address] CBC (HEMOGRAM ONLY)2018-08-22 07:12:00 Test Item Value [...] (AKER) (test code = 412) PLATELET COUNT ([facility]) (test 220 K/CU MM 150-450 code = 756) MEAN PLATELET VOLUME (BEAKER) 10.6 fL 9.4-12.3 (test code = 754) NUCLEATED RED BLOOD CELLS 0 /100 WBC 0-0 (AKER) (test code = 413) POCT-GLUCOSE [id number] 21:37:00 Test Item Value Reference Range Interpretation Comments POC-GLUCOSE METER 264 mg/dL 70-110 H TESTED AT [place] [address] ([facility]) (test code = JOHANNY James [facility] 1538) [address] POCT-GLUCOSE [id number] 17:52:00 Test Item Value Reference Range Interpretation Comments POC-GLUCOSE METER 273 mg/dL 70-110 H TESTED AT [place] [address] ([facility]) (test code = JOHANNY James [facility] 1538) [address] POCT-GLUCOSE [id number] 11:57:00 Test Item Value Reference Range Interpretation Comments POC-GLUCOSE METER 316 mg/dL 70-110 H Notified R Rubén JOHANSEN/TESTED ([facility]) (test code = AT [place] [address] [address] 1538) [place] [address] POCT-GLUCOSE [id number] 07:58:00 Test Item Value Reference Range Interpretation Comments POC-GLUCOSE METER 246 mg/dL 70-110 H TESTED AT [facility] 6720 (BEAKER) (test code = JOHANNY R [facility] 1538) [address] [id number] 07:27:00 Test Item Value Reference Range Interpretation Comments PHOSPHORUS (BEAKER) (test code = 3.3 mg/dL 2.3-4.7 604) [id number] 07:27:00 Test Item Value Reference Range Interpretation Comments MAGNESIUM (BEAKER) (test code = 2.1 mg/dL 1.6-2.6 627) COMPREHENSIVE METABOLIC [id number] 07:27:00 Test Item Value Reference Range Interpretation [...] NOT APPLICABLE FOR DIALYSIS PATIEN TS. CALCIUM, [id number] 07:03:00 Test Item Value Reference Range Interpretation Comments CALCIUM IONIZED (BEAKER) (test 1.12 mmol/L 1.12-1.27 code = 698) PH, BLOOD (BEAKER) (test code = 7.46 1810) CBC W/PLT COUNT & AUTO [id number] 06:38:00 Test Item Value Reference Range Interpretation [...] PERCENT (BEAKER) (test code = 2801) POCT-GLUCOSE [id number] 22:26:00 Test Item Value Reference Range Interpretation Comments POC-GLUCOSE METER 325 mg/dL 70-110 H Notified Erika Montana MD/TESTED (BEAKER) (test code = AT [facility] 6720 [place] 1538) [facility] [address] 0 POCT-GLUCOSE [id number] 21:46:00 Test Item Value Reference Range Interpretation Comments POC-GLUCOSE METER 312 mg/dL 70-110 H TESTED AT [facility] 6720 (BEAKER) (test code = [place]ANNY James [place] [address]) [address] BASIC METABOLIC [id number] 21:39:00 Test Item Value Reference Range Interpretation [...] S NOT APPLICABLE FOR DIALYSIS PATIEN TS. [id number] 19:06:00 Test Item Value Reference Range Interpretation Comments PHOSPHORUS (BEAKER) (test code = 3.3 mg/dL 2.3-4.7 604) [id number] 19:06:00 Test Item Value Reference Range Interpretation Comments MAGNESIUM (BEAKER) (test code = 2.2 mg/dL 1.6-2.6 627) [id number] 17:17:00 Test Item Value Reference Range Interpretation Comments PHOSPHORUS (BEAKER) (test code = 3.3 mg/dL 2.3-4.7 604) [id number] 17:17:00 Test Item Value Reference Range Interpretation Comments MAGNESIUM (BEAKER) (test code = 2.3 mg/dL 1.6-2.6 627) BASIC METABOLIC [id number] 17:17:00 Test Item Value Reference Range Interpretation [...] NOT APPLICABLE FOR DIALYSIS PATIEN TS. POCT-GLUCOSE [id number] 17:15:00 Test Item Value Reference Range Interpretation Comments POC-GLUCOSE METER 86 mg/dL 70-110 TESTED AT [facility] 6720 (BEAKER) (test code = [place] [address] 1538) POCT-GLUCOSE [id number] 15:29:00 Test Item Value Reference Range Interpretation Comments POC-GLUCOSE METER 176 mg/dL 70-110 H TESTED AT [place] [address] (BEAKER) (test code = JOHANNY James [facility] 1538) [address] POCT-GLUCOSE [id number] 14:05:00 Test Item Value Reference Range Interpretation Comments POC-GLUCOSE METER 198 mg/dL 70-110 H TESTED AT [place] [address] (BEAKER) (test code = [facility] Erika [facility] 1538) [address] POCT-GLUCOSE [id number] 13:02:00 Test Item Value Reference Range Interpretation Comments POC-GLUCOSE METER 148 mg/dL 70-110 H TESTED AT [place] [address] (BEAKER) (test code = [facility] 1538) [address] POCT-GLUCOSE [id number] 12:23:00 Test Item Value Reference Range Interpretation Comments POC-GLUCOSE METER 170 mg/dL 70-110 H TESTED AT [place] [address] (BEAKER) (test code = [facility] Erika [facility] 1538) [address] [id number] 11:33:00 Test Item Value Reference Range Interpretation Comments PHOSPHORUS (BEAKER) (test code = 3.1 mg/dL 2.3-4.7 604) [id number] 11:33:00 Test Item Value Reference Range Interpretation Comments MAGNESIUM (BEAKER) (test code = 1.8 mg/dL 1.6-2.6 627) BASIC METABOLIC [id number] 11:33:00 Test Item Value Reference Range Interpretation [...] mg/dL 8.4-10.2 (test code = 697) EGFR [facility] (test 96 mL/min/1.73 ESTIMA OLGA GFR IS code = 1092) sq m NOT ACCURATE CREATININE CLEARANCE IN PREDICTING GLOMERULAR FILTRATION RATE . ESTIMATED GFR I S NOT APPLICABLE FOR DIALYSIS PATIEN TS. KETONE, [id number] 11:26:00 Test Item Value Reference Range Interpretation Comments KETONES, BLOOD (BEAKER) (test code 1.4 mmol/L <0.4 H = 1103) POCT-GLUCOSE [id number] 11:05:00 Test Item Value Reference Range Interpretation Comments POC-GLUCOSE METER 206 mg/dL 70-110 H TESTED AT [place] [address] ([facility]) (test code = BANNERMIKAEL James [facility] 1538) [address] POCT-GLUCOSE [id number] 10:15:00 Test Item Value Reference Range Interpretation Comments POC-GLUCOSE METER 245 mg/dL 70-110 H TESTED AT [place] [address] ([facility]) (test code = BANNERMIKAEL James [facility] 1538) [address] POCT-GLUCOSE [id number] 09:02:00 Test Item Value Reference Range Interpretation Comments POC-GLUCOSE METER 205 mg/dL 70-110 H TESTED AT [place] [address] ([facility]) (test code = [facility] Erika [facility] 1538) [address] POCT-GLUCOSE [id number] 07:54:00 Test Item Value Reference Range Interpretation Comments POC-GLUCOSE METER 206 mg/dL 70-110 H TESTED AT [place] [address] ([facility]) (test code = [facility] Erika [place] 1538) [address] POCT-GLUCOSE [id number] 07:54:00 Test Item Value Reference Range Interpretation Comments POC-GLUCOSE METER 217 mg/dL 70-110 H TESTED AT [place] [address] ([facility]) (test code = [facility] Erika [place] 1538) [address] KETONE, [id number] 07:25:00 Test Item Value Reference Range Interpretation Comments KETONES, BLOOD (BEAKER) (test code 4.3 mmol/L <0.4 H = 1103) [id number] 07:00:00 Test Item Value Reference Range Interpretation Comments PHOSPHORUS (BEAKER) (test code = 2.5 mg/dL 2.3-4.7 604) [id number] 07:00:00 Test Item Value Reference Range Interpretation Comments MAGNESIUM (BEAKER) (test code = 2.0 mg/dL 1.6-2.6 627) BASIC METABOLIC [id number] 07:00:00 Test Item Value Reference Range Interpretation [...] NOT APPLICABLE FOR DIALYSIS PATIEN TS. POCT-GLUCOSE [id number] 06:13:00 Test Item Value Reference Range Interpretation Comments POC-GLUCOSE METER 223 mg/dL 70-110 H TESTED AT [facility] 6720 (BEAKER) (test code = [place] 1538) [address] POCT-GLUCOSE [id number] 05:20:00 Test Item Value Reference Range Interpretation Comments POC-GLUCOSE METER 224 mg/dL 70-110 H TESTED AT [facility] 6720 (BEAKER) (test code = [place] 1538) [address] POCT-GLUCOSE [id number] 04:08:00 Test Item Value Reference Range Interpretation Comments POC-GLUCOSE METER 165 mg/dL 70-110 H TESTED AT [facility] 6720 (BEAKER) (test code = [place] 1538) [address] POCT-GLUCOSE [id number] 03:25:00 Test Item Value Reference Range Interpretation Comments POC-GLUCOSE METER 130 mg/dL 70-110 H TESTED AT [facility] 67 [facility] (test code = J[place]ANNY James [place] 1538) [address] [id number] 02:50:00 Test Item Value Reference Range Interpretation Comments PROCALCITONIN (BEAKER) (test code 2.96 ng/mL <0.05 H = 3036) SEPSIS RISK (ng/mL)Low: 0.05-0.50Intermediate: 0.51-2.00High: >=2.01KETONE, [id number] 02:15:00 Test Item Value Reference Range Interpretation Comments KETONES, BLOOD (BEAKER) (test code 3.1 mmol/L <0.4 H = 1103) POCT-GLUCOSE [id number] 02:13:00 Test Item Value Reference Range Interpretation Comments POC-GLUCOSE METER 153 mg/dL 70-110 H TESTED AT [place] [address] ([facility] (test code = JOHANNY James [place] 1538) [address] [id number] 02:01:00 Test Item Value Reference Range Interpretation Comments PHOSPHORUS (BEAKER) (test code = 2.4 mg/dL 2.3-4.7 604) [id number] 02:01:00 Test Item Value Reference Range Interpretation Comments MAGNESIUM (BEAKER) (test code = 2.1 mg/dL 1.6-2.6 627) BASIC METABOLIC [id number] 02:01:00 Test Item Value Reference Range Interpretation [...] S NOT APPLICABLE FOR DIALYSIS PATIEN TS. [id number] 02:01:00 Test Item Value Reference Range Interpretation Comments AMYLASE (BEAKER) (test code = 349) 129 U/L 25-125 H [id number] 02:01:00 Test Item Value Reference Range Interpretation [...] 0-0 (BEAKER) (test code = 413) POCT-GLUCOSE [id number] 01:05:00 Test Item Value Reference Range Interpretation Comments POC-GLUCOSE METER 171 mg/dL 70-110 H TESTED AT [facility] 6720 (BEAKER) (test code = [place] 1538) [address] POCT-GLUCOSE [id number] 00:32:00 Test Item Value Reference Range Interpretation Comments POC-GLUCOSE METER 171 mg/dL 70-110 H TESTED AT [place] [address] (BEAKER) (test code = JOHANNY James [facility] 1538) [address] POCT-GLUCOSE [id number] 23:15:00 Test Item Value Reference Range Interpretation Comments POC-GLUCOSE METER 177 mg/dL 70-110 H TESTED AT [place] [address] (BEAKER) (test code = JOHANNY James [facility] 1538) [address] POCT-GLUCOSE [id number] 22:16:00 Test Item Value Reference Range Interpretation Comments POC-GLUCOSE METER 170 mg/dL 70-110 H TESTED AT [place] [address] ([facility] (test code = JOHANNY James [facility] 1538) [address] POCT-GLUCOSE [id number] 22:16:00 Test Item Value Reference Range Interpretation Comments POC-GLUCOSE METER 191 mg/dL 70-110 H TESTED AT [place] [address] ([facility] (test code = JOHANNY James [facility] 1538) [address] KETONE, [id number] 20:49:00 Test Item Value Reference Range Interpretation Comments KETONES, BLOOD (BEAKER) (test code 3.2 mmol/L <0.4 H = 1103) [id number] 20:46:00 Test Item Value Reference Range Interpretation Comments PHOSPHORUS (BEAKER) (test code = 2.2 mg/dL 2.3-4.7 L 604) [id number] 20:46:00 Test Item Value Reference Range Interpretation Comments MAGNESIUM (BEAKER) (test code = 2.2 mg/dL 1.6-2.6 627) BASIC METABOLIC [id number] 20:46:00 Test Item Value Reference Range Interpretation [...] APPLICABLE FOR DIALYSIS PATIEN TS. BLOOD GAS, [id number] 20:29:00 Test Item Value Reference Range Interpretation [...] (test code = 1819) 21.0 % POCT-GLUCOSE [id number] 20:09:00 Test Item Value Reference Range Interpretation Comments POC-GLUCOSE METER 219 mg/dL 70-110 H TESTED AT [facility] 6720 [facility] (test code = [facility] 1538) [address] POCT-GLUCOSE [id number] 18:58:00 Test Item Value Reference Range Interpretation Comments POC-GLUCOSE METER 248 mg/dL 70-110 H TESTED AT [facility] 6720 ([facility]) (test code = [facility] 1538) [address] CT, CTANGIO [id number] 18:36:00Addendum BeginsREPORT STATUS:A Not mentioned in the body of the report, 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 Signed: Arpit Smith Verified Date/Time: 08/19/2018 18:36:40 Reading Location: [facility] Radiology Reading RoomAddendum EndsFINAL REPORT [...] Verified Date/Time: 08/19/2018 13:33:21 Reading Locati on: [facility] Reading Room RAD, MANDIBLE, LESS THAN 4 [id number] 18:35:00Reason for exam:->dysarthria, fallFINAL REPORT Mandible 6 [...] no radiopaque foreign body. Signed: Arpit Smith MDReport Verified Date/Time: 08/19/2018 18:35:55 Reading Location: [facility] Radiology Reading Room POCT-GLUCOSE [id number] 18:22:00 Test Item Value Reference Range Interpretation Comments POC-GLUCOSE METER 222 mg/dL 70-110 H TESTED AT [facility] 6720 [facility] (test code = JOHANNY [place] 1538) [address] POCT-GLUCOSE [id number] 16:58:00 Test Item Value Reference Range Interpretation Comments POC-GLUCOSE METER 277 mg/dL 70-110 H TESTED AT [facility] 6720 [facility] (test code = JOHANNY James [place] 1538) [address] [id number] 16:12:00 Test Item Value Reference Range Interpretation Comments PHOSPHORUS (BEAKER) (test code = 2.9 mg/dL 2.3-4.7 604) [id number] 16:12:00 Test Item Value Reference Range Interpretation Comments MAGNESIUM (BEAKER) (test code = 1.7 mg/dL 1.6-2.6 627) BASIC METABOLIC [id number] 16:12:00 Test Item Value Reference Range Interpretation [...] NOT APPLICABLE FOR DIALYSIS PATIEN TS. KETONE, [id number] 15:46:00 Test Item Value Reference Range Interpretation Comments KETONES, BLOOD ([facility]) (test code 6.0 mmol/L <0.4 H = 1103) POCT-GLUCOSE [id number] 15:18:00 Test Item Value Reference Range Interpretation Comments POC-GLUCOSE METER 322 mg/dL 70-110 H Will Repea t Test/TESTED ([facility]) (test code = AT [address] 1538) [facility] 7[address] 0 POCT-GLUCOSE [id number] 14:27:00 Test Item Value Reference Range Interpretation Comments POC-GLUCOSE METER 232 mg/dL 70-110 H TESTED AT [place] [address] ([facility]) (test code = [facility] Erika [place] [address]) [address] POCT-GLUCOSE [id number] 13:05:00 Test Item Value Reference Range Interpretation Comments POC-GLUCOSE METER 240 mg/dL 70-110 H TESTED AT [place] [address] ([facility]) (test code = [facility] Erika [place] [address]) [address] POCT-GLUCOSE [id number] 12:16:00 Test Item Value Reference Range Interpretation Comments POC-GLUCOSE METER 201 mg/dL 70-110 H TESTED AT [place] [address] ([facility]) (test code = [facility] Erika [place] [address]) [address] CT, [id number] 11:46:00FINAL REPORT INDICATION:23-year-old female with abdominal pain. [...] MDReport Verified Date/Time: 08/19/2018 11:46:24 Reading Location: [facility] Diagnostic Imaging Reading Room - [place] [address] BASIC METABOLIC PANEL 2018-08-19 11:17:00 Test [...] S NOT APPLICABLE FOR DIALYSIS PATIEN TS. [id number] 11:12:00 Test Item Value Reference Range Interpretation Comments PHOSPHORUS (BEAKER) (test code = 3.8 mg/dL 2.3-4.7 604) POCT-GLUCOSE [id number] 10:49:00 Test Item Value Reference Range Interpretation Comments POC-GLUCOSE METER 172 mg/dL 70-110 H TESTED AT [facility] 6720 (BEAKER) (test code = [place] 1538) [address] KETONE, [id number] 10:37:00 Test Item Value Reference Range Interpretation Comments KETONES, BLOOD (BEAKER) (test code 4.2 mmol/L <0.4 H = 1103) HEMOGLOBIN [id number] 10:29:00 Test Item Value Reference Range Interpretation Comments HEMOGLOBIN A1C (BEAKER) (test code = 15.3 % 4.3-6.1 H 368) BLOOD GAS, [id number] 10:23:00 Test Item Value Reference Range Interpretation [...] (test code = 1819) 21.0 % POCT-GLUCOSE [id number] 10:02:00 Test Item Value Reference Range Interpretation Comments POC-GLUCOSE METER 145 mg/dL 70-110 H TESTED AT [place] [address] ([facility]) (test code = [facility] 1538) [address] POCT-GLUCOSE [id number] 09:04:00 Test Item Value Reference Range Interpretation Comments POC-GLUCOSE METER 168 mg/dL 70-110 H TESTED AT [place] [address] ([facility]) (test code = [facility] 1538) [address]50 POCT-GLUCOSE [id number] 07:47:00 Test Item Value Reference Range Interpretation Comments POC-GLUCOSE METER 187 mg/dL 70-110 H TESTED AT [place] [address] ([facility]) (test code = [facility] 1538) [address] BLOOD GAS, [id number] 07:14:00 Test Item Value Reference Range Interpretation [...] code = 1819) 21.0 % BASIC METABOLIC [id number] 07:13:00 Test Item Value Reference Range Interpretation [...] S NOT APPLICABLE FOR DIALYSIS PATIEN TS. [id number] 07:11:00 Test Item Value Reference Range Interpretation Comments MAGNESIUM (BEAKER) (test code = 2.0 mg/dL 1.6-2.6 627) POCT-GLUCOSE [id number] 07:09:00 Test Item Value Reference Range Interpretation Comments POC-GLUCOSE METER 183 mg/dL 70-110 H TESTED AT [facility] 6720 (BEAKER) (test code = [place] 1538) [address] POCT-GLUCOSE [id number] 06:19:00 Test Item Value Reference Range Interpretation Comments POC-GLUCOSE METER 185 mg/dL 70-110 H [facility] (BEAKER) (test code = [place] 1538) [address] POCT-GLUCOSE [id number] 05:05:00 Test Item Value Reference Range Interpretation Comments POC-GLUCOSE METER 223 mg/dL 70-110 H TESTED AT [facility] 6720 (BEAKER) (test code = [place] 1538) [address] POCT-GLUCOSE [id number] 04:17:00 Test Item Value Reference Range Interpretation Comments POC-GLUCOSE METER 235 mg/dL 70-110 H TESTED AT [facility] 6720 (BEAKER) (test code = [place] 1538) [address] [id number] 04:07:00 Test Item Value Reference Range Interpretation Comments PROCALCITONIN (BEAKER) (test code 6.19 ng/mL <0.05 H = 3036) SEPSIS RISK (ng/mL)Low: 0.05-0.50Intermediate: 0.51-2.00High: >=2.01 [id number] 04:03:00 Test Item Value Reference Range Interpretation Comments PHOSPHORUS (BEAKER) (test code = 1.4 mg/dL 2.3-4.7 LL 604) BASIC METABOLIC [id number] 04:00:00 Test Item Value Reference Range Interpretation [...] APPLICABLE FOR DIALYSIS PATIEN TS. BASIC METABOLIC [id number] 04:00:00 Test Item Value Reference Range Interpretation [...] APPLICABLE FOR DIALYSIS PATIEN TS. BLOOD GAS, [id number] 03:52:00 Test Item Value Reference Range Interpretation [...] 70 pg/mL 0-100 (test code = 700) [id number] 03:43:00 Test Item Value Reference Range Interpretation Comments MAGNESIUM (BEAKER) (test code = 2.1 mg/dL 1.6-2.6 627) [id number] 03:43:00 Test Item Value Reference Range Interpretation Comments AMYLASE (BEAKER) (test code = 349) 566 U/L 25-125 H [id number] 03:43:00 Test Item Value Reference Range Interpretation Comments LIPASE (BEAKER) (test code = 749) 124 U/L 8-78 H C-REACTIVE [id number] 03:43:00 Test Item Value Reference Range Interpretation Comments C-REACTIVE PROTEIN (BEAKER) (test 5.56 mg/dL 0.00-0.50 H code = 676) KETONE, [id number] 03:23:00 Test Item Value Reference Range Interpretation [...] 0-0 (BEAKER) (test code = 413) POCT-GLUCOSE [id number] 03:17:00 Test Item Value Reference Range Interpretation Comments POC-GLUCOSE METER 251 mg/dL 70-110 H TESTED AT [place] [address] (BEAKER) (test code = JOHANNY James [place] 1538) [address] OSMOLALITY, [id number] 02:24:00 Test Item Value Reference Range Interpretation Comments OSMOLALITY URINE (BEAKER) (test 599 mOsm/kg 40-1400 code = 614) POCT-GLUCOSE [id number] 02:16:00 Test Item Value Reference Range Interpretation Comments POC-GLUCOSE METER 288 mg/dL 70-110 H TESTED AT [place] [address] (BEAKER) (test code = [facility] [place] 1538) [address] KETONE, [id number] 01:49:00 Test Item Value Reference Range Interpretation Comments KETONES, BLOOD (BEAKER) (test code 6.1 mmol/L <0.4 H = 1103) POCT-GLUCOSE [id number] 01:13:00 Test Item Value Reference Range Interpretation Comments POC-GLUCOSE METER 254 mg/dL 70-110 H TESTED AT [place] [address] (BEAKER) (test code = [facility] 1538) [address] BLOOD GAS, [id number] 01:10:00 Test Item Value Reference Range Interpretation [...] (test code = 1819) 21.0 % POCT-GLUCOSE [id number] 00:05:00 Test Item Value Reference Range Interpretation Comments POC-GLUCOSE METER 288 mg/dL 70-110 H TESTED AT [place] [address] (BEAKER) (test code = [facility] 1209) [address] BASIC METABOLIC [id number] 23:16:00 Test Item Value Reference Range Interpretation [...] NOT APPLICABLE FOR DIALYSIS PATIEN TS. OSMOLALITY, [id number] 23:03:00 Test Item Value Reference Range Interpretation Comments OSMOLALITY, SERUM (BEAKER) (test 342 mOsm/kg 275-295 H code = 615) [id number] 23:02:00 Test Item Value Reference Range Interpretation Comments PHOSPHORUS (BEAKER) (test code = 1.1 mg/dL 2.3-4.7 LL 604) [id number] 23:00:00 Test Item Value Reference Range Interpretation Comments MAGNESIUM (BEAKER) (test code = 2.1 mg/dL 1.6-2.6 627) CALCIUM, [id number] 22:47:00 Test Item Value Reference Range Interpretation [...] (BEAKER) (test code = 413) BLOOD GAS, [id number] 22:46:00 Test Item Value Reference Range Interpretation [...] (test code = 1819) 21.0 % KETONE, [id number] 22:46:00 Test Item Value Reference Range Interpretation Comments KETONES, BLOOD (BEAKER) (test code 5.6 mmol/L <0.4 H = 1103) RAD, CHEST, 1 VIEW, NON [id number] 22:44:00Reason for exam:->central line Should this be [...] MDReport Verified Date/Time: 08/18/2018 22:44:52 Reading Location: [address] Reading Room POCT-GLUCOSE [id number] 22:34:00 Test Item Value Reference Range Interpretation Comments POC-GLUCOSE METER 259 mg/dL 70-110 H TESTED AT [facility] 6720 (BEAKER) (test code = JOHANNY James [facility] 1538) [address] CHLORIDE, RANDOM [id number] 22:28:00 Test Item Value Reference Range Interpretation Comments CHLORIDE URINE (BEAKER) (test code = 88 meq/L 682) Reference Range: No NormalsCREATININE, RANDOM [id number] 22:28:00 Test Item Value Reference Range Interpretation Comments CREATININE URINE (BEAKER) (test 12.5 mg/dL code = 375) Reference Range: No NormalsSODIUM, RANDOM [id number] 22:28:00 Test Item Value Reference Range Interpretation Comments SODIUM URINE (BEAKER) (test code = 143 meq/L 243) Reference Range: No NormalsUREA NITROGEN, RANDOM [id number] 22:28:00 Test Item Value Reference Range Interpretation Comments UREA NITROGEN URINE (BEAKER) (test 154 mg/dL code = 538) Reference Range: No NormalsOSMOLALITY, [id number] 21:53:00 Test Item Value Reference Range Interpretation Comments OSMOLALITY URINE (BEAKER) (test 546 mOsm/kg 40-1400 code = 614) BASIC METABOLIC [id number] 21:07:00 Test Item Value Reference Range Interpretation [...] S NOT APPLICABLE FOR DIALYSIS PATIEN TS. [id number] 21:07:00 Test Item Value Reference Range Interpretation Comments PHOSPHORUS (BEAKER) < mg/dL 2.3-4.7 LL Specimen slightly (test code = 604) hemolyzed POCT-GLUCOSE [id number] 21:06:00 Test Item Value Reference Range Interpretation Comments POC-GLUCOSE METER 381 mg/dL 70-110 H TESTED AT [facility] 6720 (BEAKER) (test code = [place] 1538) [address] POCT-GLUCOSE [id number] 21:06:00 Test Item Value Reference Range Interpretation Comments POC-GLUCOSE METER 437 mg/dL 70-110 HH TESTED AT [facility] 6720 (BEAKER) (test code = [place] 1538) [address] [id number] 21:05:00 Test Item Value Reference Range Interpretation Comments LIPASE (BEAKER) (test code = 749) 138 U/L 8-78 H [id number] 21:05:00 Test Item Value Reference Range Interpretation Comments AMYLASE (BEAKER) (test code = 349) 669 U/L 25-125 H [id number] 21:04:00 Test Item Value Reference Range Interpretation [...] is 2.5-3.5 for patients with mechanical heart valves.[id number] 21:04:00 Test Item Value Reference Range Interpretation Comments MAGNESIUM (BEAKER) 2.2 mg/dL 1.6-2.6 Specimen slightly (test code = 627) hemolyzed BLOOD GAS, [id number] 21:00:00 Test Item Value Reference Range Interpretation [...] (test code = 1819) 21.0 % HEMOGLOBIN [id number] 21:00:00 Test Item Value Reference Range Interpretation Comments HEMOGLOBIN A1C (BEAKER) (test code = 15.7 % 4.3-6.1 H 368) CT BRAIN WITHOUT IV CONTRAST - [id number] 20:04:00Reason for exam:- >r/o bleedFINAL REPORT CT [...] Smith MDReport Verified Date/Time: 08/18/2018 20:04:50 Reading Lo cation: YO [facility] Reading Room POCT-GLUCOSE [id number] 19:21:00 Test Item Value Reference Range Interpretation Comments POC-GLUCOSE METER 425 mg/dL 70-110 HH TESTED AT [facility] 6720 (BEAKER) (test code = CANDIDAMIKAEL James [facility] 1538) [address] [id number] 18:52:00 Test Item Value Reference Range Interpretation Comments PHOSPHORUS (BEAKER) (test code = 604) < mg/dL 2.3-4.7 LL If last glucose was less than 500, may do bedside glucose instead of serum glucose.RAPID DRUG SCREEN, [id number] 18:52:00 Test Item Value Reference Range Interpretation [...] situations. Chain of custody not maintained. Some gmck-dpk-sfridhs medications, as well as adulterants, may cause inaccurate results. Clinical correlation should be applied. Estella comprehensive drug screen or confirmation of a detected drug may be performed upon request.BASIC METABOLIC [id number] 18:51:00 Test Item Value Reference Range Interpretation [...] may do bedside glucose instead of serum glucose.[id number] 18:48:00 Test Item Value Reference Range Interpretation Comments MAGNESIUM (BEAKER) (test code = 2.1 mg/dL 1.6-2.6 627) If last glucose was less than 500, may do bedside glucose instead of serum glucose.KETONE, [id number] 18:45:00 Test Item Value Reference Range Interpretation Comments KETONES, BLOOD (BEAKER) (test code 5.2 mmol/L <0.4 H = 1103) [id number] 18:43:00 Test Item Value Reference Range Interpretation [...] 514) SOURCE(BEAKER) (test code = 2795) SCREEN, [id number] 18:35:00 Test Item Value Reference Range Interpretation Comments TEST URINE (BEAKER) (test Negative code = 583) BLOOD GAS, [id number] 18:32:00 Test Item Value Reference Range Interpretation [...] (BEAKER) (test code = 1819) 21.0 % [id number] 18:16:00 Test Item Value Reference Range Interpretation Comments FIBRINOGEN LEVEL 331 mg/dl 225-434 Sample clot olga, (BEAKER) (test code = notifi ed RN badge 658) #[id number] for recollect. [id number] 18:16:00 Test Item Value Reference Range Interpretation Comments D-DIMER QUANTITATIVE 0.64 MG/L FEU <0.50 H Sample is clotted, (BEAKER) (test code = notifi ed RN badge 671) #[id number] for recollect.This is a corrected result. Previou [...] of thrombosis is within 95-100% range.POCT- GLUCOSE [id number] 18:05:00 Test Item Value Reference Range Interpretation Comments POC-GLUCOSE METER > mg/dL 70-110 HH OUTSIDE ME ASURING (BEAKER) (test code RANGETES OLGA AT [facility] 67 = 1538) [facility] [address] [id number] 18:01:00 Test Item Value Reference Range Interpretation Comments PROCALCITONIN (BEAKER) (test code 3.19 ng/mL <0.05 H = 3036) SEPSIS RISK (ng/mL)Low: 0.05-0.50Intermediate: 0.51-2.00High: >=2.01CREATINE KINASE (CK), TOTAL AND [id number] 17:50:00 Test Item Value Reference Range Interpretation Comments CREATINE KINASE TOTAL (BEAKER) 54 U/L 29-200 (test code = 380) CREATINE KINASE-MB (BEAKER) (test 1.6 ng/mL 0.0-6.6 code = 750) CREATINE KINASE-MB INDEX (BEAKER) 3.0 % (test code = 395) CK-MB Reference Range:<6.7 Normal6.7-10.0 Borderline>10.0 AbnormalTROPONIN [id number] 17:50:00 Test Item Value Reference Range Interpretation [...] 0-100 (test code = 700) COMPREHENSIVE METABOLIC [id number] 17:48:00 Test Item Value Reference Range Interpretation [...] S NOT APPLICABLE FOR DIALYSIS PATIEN TS. [id number] 17:47:00 Test Item Value Reference Range Interpretation Comments LIPASE (BEAKER) (test code = 749) 329 U/L 8-78 H [id number] 17:47:00 Test Item Value Reference Range Interpretation Comments AMYLASE (BEAKER) (test code = 349) 563 U/L 25-125 H LACTATE DEHYDROGENASE (LDH)2018-08-18 17:47:00 Test Item Value Reference Range Interpretation Comments LACTATE DEHYDROGENASE (BEAKER) (test 255 U/L 125-220 H code = 635) C-REACTIVE [id number] 17:47:00 Test Item Value Reference Range Interpretation Comments C-REACTIVE PROTEIN (BEAKER) (test 1.35 mg/dL 0.00-0.50 H code = 676) LACTIC ACID, VENOUS, WHOLE [id number] 17:41:00 Test Item Value Reference Range Interpretation Comments LACTATE BLOOD VENOUS 2.0 mmol/L 0.5-2.2 Specime n markedly (2) (BEAKER) (test hemolyzed code = 2872) Effective 03/06/2016: Units/Reference Range ChangeNew: 0.5-2.2 mmol/L Previous: 5- 20 mg/dLPOCT-LACTIC ACID, [id number] 17:13:00 Test Item Value Reference Range Interpretation Comments POC-LACTIC ACID, 1.9 mmol/L 0.4-1.3 H TESTED AT [facility] 6720 ARTERIAL (BEAKER) [place] [facility] (test code = 2804) [address] POCT-BLOOD GASES, [id number] 17:13:00 Test Item Value Reference Range Interpretation Comments TEMP, CELSIUS-POC 37.0 (BEAKER) (test code = 1834) FIO2-POC (BEAKER) TESTED AT [place] [address] (test code = 1835) [place] [facility] [address] PH, ARTERIAL-POC 7.069 7.350-7.450 LL (BEAKER) (test [...] L ARTERIAL-POC (BEAKER) (test code = 1841) [id number] 17:13:00 Test Item Value Reference Range Interpretation Comments POC-SODIUM (BEAKER) 150 meq/L 135-148 H TESTED A T [place] [address] (test code = 1542) [place] [facility] [address] [id number] 17:13:00 Test Item Value Reference Range Interpretation Comments POC-POTASSIUM 2.4 meq/L 3.6-5.5 LL TESTED AT [facility] 6720 (BEAKER) (test code [facility] [address] = 1540) [id number] 17:13:00 Test Item Value Reference Range Interpretation Comments POC-GLUCOSE ([facility]) 685 mg/dL 70-110 HH TESTED AT [place] [address] (test code = 1855) [place] [address] POCT-CALCIUM [id number] 17:13:00 Test Item Value Reference Range Interpretation Comments POC-CALCIUM IONIZED 1.24 mmol/L 1.12-1.27 TESTED A T [place] [address] ([facility]) (test code = [facility] Erika [facility] 1536) [address] [id number] 17:13:00 Test Item Value Reference Range Interpretation Comments POC-HEMATOCRIT 40 % 36-45 TESTED AT [place] [address] ([facility]) (test code = [facility] [address] 1857) [id number] 17:13:00 Test Item Value Reference Range Interpretation Comments POC-HEMOGLOBIN 13.6 g/dL 12.0-15.0 TESTED AT [place] [address] ([facility]) (test code [facility] = 1856) 380[address]QXFYRM AT [place] [address] [place] [address] POCT-GLUCOSE [id number] 17:07:00 Test Item Value Reference Range Interpretation Comments POC-GLUCOSE METER > mg/dL 70-110 HH OUTSIDE ME ASURING ([facility]) (test code RANGETES OLGA AT [place] [address] = 1538) [facility] [address] Notes Date/Time Note Provider Source 2020-12-03 07:27:00-00:00 [facility] ([facility]) OB Postpart Progr Note REPORT#:[id number] REPORT STATUS: Signed DATE:12/03/20 TIME: 726 PATIENT: TASHI MOSQUERA UNIT #: [id number] ROOM/BED: [address] : 94 AGE: 25 SEX: F ATTEND: Natalie Corrales MD ADM AUTHOR: Yvette Ni MD * ALL edits or amendments must be made on the el [employer]/computer document * Subjective Subjective Admission EGA: Weeks: 36 Days: 3 Status/day: post , post operative, day # 3 Patient reports: Patient reports: Yes: normal lochia, pain management effective, tolerating po well, voiding well, voiding without pain, tolerating ambulatio n, bowel movement. No: complaints. Objective General VS: Vital Signs Date Temp Pulse Resp B/P B/P Mean Pulse Ox FiO2 12/02-12/03 97.8-98.8 89-92 18-20 103-127/70-83 Last Documented: Result Date Time B/P 112/77 12/03 337 Temp 98.8 12/03 0338 Pulse 90 12/03 0338 Resp 20 12/03 033 Pulse Ox 97 12/01 0748 B/P Mean 90.0 11/30 1215 PATIENT WEIGHT: Weight (lb): 205 Weight (oz): Weight (kg): 92.986 Physical Exam Lungs: unlabored breathing Abdomen: soft, no abnormal tenderness Incision site: well approximated edges, cherry intact, dressing clean dry, dry, no drainage, no inflammation Uterus: firm, tender, non-tender Fundus: at the umbilicus Lochia: normal Lower extremities: Edema: none Calf tenderness: negative Result Findings/data: Laboratory Tests: 12/03 12/02 12/02 12/02 0639 2111 1503 0943 Chemistry POC Glucose (65 - 110 mg/dL) 80 103 206 H 200 H Diagnosis, Assessment Plan Diagnosis, Assessment Plan Assessment: nml progress, diabetes in suboptimal control, imporved FBS on dedcreased dose of BED SETTER H at bedtime ( no nocturnal hypoglycemia), yesterday patient did not receive NPH in am, BG's unaccept ably high. Will establish ane richie of insulin NPH 20 units am/pm, humalog 10 units ac meals Plan: routine care Electronically Signed by Yvette Ni MD on at 0729 RPT #:[id number] END OF REPORT 2020-12-02 16:47:00-00:00 [facility] ([facility]) OB Postpart Progr Note REPORT#:[id number] REPORT STATUS: Signed DATE:12/02/20 TIME: 1646 PATIENT: TASHI MOSQUERA UNIT #: [id number] ROOM/BED: [address] : 94 AGE: 25 SEX: F ATTEND: Natalie Corrales MD ADM AUTHOR: Yvette Ni MD * ALL edits or amendments must be made on the [employer]/computer document * Subjective Subjective Admission EGA: Weeks: 36 Days: 3 Status/day: post , post operative, day # 2 Patient reports: Patient reports: Yes: normal lochia, pain management effective, tolerating po well, voiding well, voiding without pain, tolerating ambulatio n, flatus. No: complaints. Objective General VS: Vital Signs Date Temp Pulse Resp B/P B/P Mean Pulse Ox FiO2 12/01-12/02 97.7-98.5 83-89 18-20 102-111/70-76 Last Documented: Result Date Time B/P 12/02 0805 Temp 98.1 12/02 0805 Pulse 89 12/02 0805 Resp 18 12/02 0805 Pulse Ox 97 12/01 0748 B/P Mean 90.0 11/30 1215 PATIENT WEIGHT: Weight (lb): 205 Weight (oz): Weight (kg): 92.986 Physical Exam Lungs: unlabored breathing Abdomen: soft, no abnormal tenderness Incision site: well approximated edges, cherry intact, dressing clean dry, dry, no drainage, no inflammation Uterus: firm, tender, non-tender Fundus: at the umbilicus Lochia: normal Lower extremities: Edema: none Calf tenderness: negative Result Findings/data: Laboratory Tests: 12/02 12/02 12/02 12/01 1503 0943 0633 2059 Chemistry POC Glucose (65 - 110 mg/dL) 206 H 200 H 64 L 1 86 H Diagnosis, Assessment Plan Diagnosis, Assessment Plan Assessment: nml progress, diabetes in suboptimal control Plan: routine care, increase insulin Electronically Signed by Yvette Ni MD on at 1657 RPT #:[id number] END OF REPORT 2020-12-01 17:51:00-00:00 [facility] ([facility]) OB Disch REPORT#:[id number] REPORT STATUS: Signed DATE:12/01/20 TIME: 1751 PATIENT: TASHI MOSQUERA UNIT #: [id number] ROOM/BED: 2030-A : 94 AGE: 25 SEX: F ATTEND: Natalie Corrales MD ADM AUTHOR: Natalie Corrales MD * ALL edits or amendments must be made on the el [employer]/computer document * Subjective Subjective Patient reports: Patient reports: Yes: normal lochia, pain management effective, tolerating po well, voiding well, flatus. No: complaints. Objective General VS: Vital Signs Date Temp Pulse Resp B/P B/P Mean Pulse Ox FiO2 11/30-12/01 97.6-98.4 68-99 18-20 95-108/61-72 97 Last Documented: Result Date Time B/P 12/01 1605 Temp 98.2 12/01 1605 Pulse 92 12/01 1605 Resp 18 12/01 1605 Pulse Ox 97 12/01 0748 B/P Mean 90.0 11/30 1215 PATIENT WEIGHT: Weight (lb): 205 Weight (oz): Weight (kg): 92.986 Physical Exam Abdomen: post gravid, soft, no abnormal tenderne ss Incision site: well approximated edges, cherry intact, dressing clean dry, dry, no drainage, no inflammation Uterus: involution appropriate, non-tender Fundus: firm, below the umbilicus, non-tender Discharge Summary General Hospital course: cervical ripening, elsie ction of labor, primary LTCS in labor, nml postop/postpart care Discharge diagnosis: anemia (acute blood loss), s/p CD for NRFHR Plan: routine care Discharge Instructions Diet: Diabetic Activity: per routine PP care Additional discharge routines: PCP Follow-Up (FU WITH DR CORRALES IN 10 DAYS) Discharge meds: Continue taking these medications: INSULIN ASPART (NovoLOG) 100 UNIT/ML VIAL 1 UNITS SUBCUTANEOUS DIRECTED. INSULIN NPH HUMAN RECOM (NovoLIN N) 100 UNIT/ML VIAL 44 UNITS SUBCUTANE. EVERY MORNING. INSULIN NPH HUMAN RECOM (NovoLIN N) 100 UNIT/ML VIAL 44 UNITS SUBCUTANE. BEDTIME. PNV WITH FE FUMARATE/FA () 1 EACH TAB TABLET ORAL EVERY MORNING. Start taking the following new medications: IBUPROFEN (MOTRIN) 600 MG TAB 600 MILLIGRAM ORAL EVERY 6 HOURS NEEDED. as needed for WOUND PAIN Qty = 28 No Refills OXYCODONE HCL (OXYCODONE HCL) 5 MG TAB 5 MILLIGRAM ORAL EVERY 6 HOURS NEEDED. as ne eded for WOUND PAIN Qty = 28 No Refills DOCUSATE SODIUM (COLACE) 100 MG CAP 200 MILLIGRAM ORAL BEDTIME. as needed for CONST IPATION Qty = 20 No Refills Electronically Signed by Natalie Corrales MD on 12/01 at 1752 [facility] #:[id number] END OF REPORT 2020-12-01 06:35:00-00:00 [id number] [facility] [address] [place], [place] [address] PATIENT NAME: TASHI MOSQUERA ADMIT DATE: 11/29/20 ACCOUNT NO: [id number] ROOM NO: F.2030 AGE: 25 SEX: F ADMITTING PHYSICIAN: Natalie Corrales MD ATTENDING PHYSICIAN: Natalie Corrales MD OPERATION DATE: 11/30/2020 PREOPERATIVE DIAGNOSES: 1. Intrauterine at 36+ weeks. 2. Uncontrolled type 1 diabetes mellitus. 3. Nonreassuring heart rate, remote from d elivery. POSTOPERATIVE DIAGNOSES: 1. Intrauterine at 36+ weeks. 2. Uncontrolled type 1 diabetes mellitus. 3. Nonreassuring heart rate, remote from d elivery. PROCEDURE: Primary low transverse secti on via Pfannenstiel. SURGEON: Natalie Corrales MD. DEHYDRATION UNIT OPERATOR: Annika Cameron MD (R), MILL PLATFORM SUPERVISOR resident. COMPLICATIONS: None. ESTIMATED BLOOD LOSS: 750 mL. INTRAVENOUS FLUIDS: 2000 mL LR. URINE OUTPUT: 250 mL clear at the end of the pro cedure. FINDINGS: Female infant in cephalic presentation , Apgars 8 and 8, weight 2910 grams. NICU was called. Placenta 3-vessel cord i ntact. Uterus, tubes and ovaries within normal limits. An extra digit was noted in the left lower extremity, also the shape of the baby's ears was abnormal; therefore NICU was called. PROCEDURE IN DETAIL: After the risks, be nefits, alternatives and the nature of the procedure were discussed with the patient at length, she voiced understanding, all her questions were answered t o satisfaction and she signed consent. She was taken to the operating room where spinal anesthesia was found to be adequate. She was then prepared and draped in normal sterile fashion in dorsal supine position with a leftward tilt. A P fannenstiel skin incision was done with a scalpel and carried down to the unde rlying layer of fascia, which was incised in the midline and extended laterall y with Sampson scissors. The fascial borders were serially grasped with Koche r clamps, elevated and the underlying layer of muscles were dissected off b ortiz. The muscles were in the midline as well as the peritone um. The bladder flap was PATIENT NAME: TASHI MOSQUERA 64 created. The bladder blade was reinserted and th e lower segment of the uterus was incised in the midline and extended laterall y with the lead furnace operator's fingers and amniotomy was done with clear fluid obtained . The head was delivered atraumatically followed by t he rest of the body. Nose and mouth were suctioned. Cord clamped and cut. Baby handed off to the [facility] baby care team. Placenta was delivered spontaneously. The uterus was exteriorized and cleared of all clots and debris. The uterine incision wa s closed with 1.0 chromic in usual locked fashion. Another layer of the same suture was placed to obtain excellent hemostasis. The uterus was ret urned to the abdomen. The gutters were cleared of all clots and debris. The fascia was closed with 0 Vicryl in a running fashion. Excellent hemostasis was noted. Irrigation with warm normal saline was done, excellent hemostasis was noted. The subcutaneous layer was closed with 3.0 Vicryl in a running fashion. Exc ellent hemostasis was noted. The skin was closed with cherry. All counts wer e correct. The patient was taken to the recovery room awake and stable cond ition. PATHOLOGY: Placenta. Cord gases were sent. Dictated By: Natalie Corrales MD WT: OP:FCLIFF/FELICIA/SONIA Conf#: [id number]/DID#: [id number] Authenticated by Natalie Corrales MD On 12/06/2020 1 2:17:45 AM Electronically Signed by Natalie Corrales MD on 01/21 at 0018 PATIENT NAME: TASHI MOSQUERA 64 2020-11-30 18:19:00-00:00 [facility] ([facility]) OB Admission / H P REPORT#:[id number] REPORT STATUS: Signed DATE:11/30/20 TIME: 181 PATIENT: TASHI MOSQUERA UNIT #: [id number] [address] AGE: 25 SEX: F ATTEND: Natalie Corrales MD ADM AUTHOR: Annika Velarde MD R2 * ALL edits or amendments must be made on the [employer]/computer document * OB History HPI: 25 y/o @ 36.4 weeks a (RADHA 12/24/20) admitt ed for IOL. Patient PNC complicated by Type 1 diabetes on Insulin, poorl y controlled, and polyhydramnios. PNC with Dr. Corrales. history: : 1 Current : Admission EGA (weeks) 36 Admission EGA (days) 3 Conditions of : diabetes - pre-existing Labs: Rubella: immune Hepatitis B: negative HIV: negative STD: negative Syphilis: currently negative GBS: negative Past medical history: diabetes mellitus Past surgical history: denies PSH Family history MOTHER (Diabetes mellitus). Allergies Coded Allergies: No Known Allergies (11/22/20) Review of Systems Constitutional: Denies: chills, fatigue, fev er, generalized weakness, lethargy, malaise, recent wt loss, other. Respiratory: Denies: SEBASTIAN (dyspnea on exertion), hemoptysis, n on productive cough, parox nocturnal dyspnea, pleurisy, pleuritic pain, pneumonia, productive cough (sputum ), SOB, wheezing, other. Cardiovascular: Denies: chest pain, SEBASTIAN (dyspnea on exer tion), edema, orthopnea, palpitations, parox nocturnal dyspnea, other. Objective General VS: Last Documented: Result Date Time B/P 105/64 11/30 1410 Temp 37.0 11/30 1410 Pulse 71 11/30 1410 Resp 18 11/30 1410 B/P Mean 90.0 11/30 1215 Pulse Ox 98 11/30 1215 Vital Signs Date Temp Pulse Resp B/P B/P Mean Pulse Ox FiO2 11/29-11/30 35.7-37.2 71-143 16-20 95-125/49-85 64.0-100.0 96-100 PATIENT WEIGHT: Weight (lb): 205 Weight (oz): Weight (kg): 92.986 Physical Exam HEENT: normocephalic w/o injury Lungs: unlabored breathing Breasts: deferred Abdomen: gravid, soft, no abnormal tenderness Uterine activity: Monitor: toco Cervical/ exam: Dilatation (cm): 0 - closed Effacement (%): 30 station: - 3 Membranes: Membranes: Intact Baby A: Baby A baseline: 150 bpm Baby A variability: moderate 6-25 bpm Baby A accelerations: 15 X 15 Baby A decelerations: late Baby A FHR category: category 2 Diagnosis, Assessment Plan Diagnosis, Assessment Plan Free Text A P: 25 y/o G1 @36.4 weeks with T1DM on insulin admit olga for IOL. Patient delivered via primary due NRFHT s remote from delivery. Assessment/Impression: abnormal FHR pattern Plan: at 1829 RPT #:[id number] END OF REPORT 2020-11-30 18:19:00-00:00 [facility] ([facility]) OB Admission / H P REPORT#:[id number] REPORT STATUS: Signed DATE:11/30/20 TIME: 1818 PATIENT: TASHI MOSQUERA UNIT #: [id number] ROOM/BED: 2030-A : 94 AGE: 25 SEX: F ATTEND: Natalie Corrales MD ADM AUTHOR: Annika Velarde R2 * ALL edits or amendments must be made on the el [employer]/computer document * OB History HPI: 25 y/o @ 36.4 weeks a ([facility] 12/24/20) admitt ed for IOL. Patient PNC complicated by Type 1 diabetes on Insulin, poorl y controlled, and polyhydramnios. PNC with Dr. Corrales. history: : 1 Current : Admission EGA (weeks) 36 Admission EGA (days) 3 Conditions of : diabetes - pre-existing Labs: Rubella: immune Hepatitis B: negative HIV: negative STD: negative Syphilis: currently negative GBS: negative Past medical history: diabetes mellitus Past surgical history: denies PSH Family history MOTHER (Diabetes mellitus). Allergies Coded Allergies: No Known Allergies (11/22/20) Review of Systems Constitutional: Denies: chills, fatigue, fev er, generalized weakness, lethargy, malaise, recent wt loss, other. Respiratory: Denies: SEBASTIAN (dyspnea on exertion), hemoptysis, n on productive cough, parox nocturnal dyspnea, pleurisy, pleuritic pain, pneumonia, productive cough (sputum ), SOB, wheezing, other. Cardiovascular: Denies: chest pain, SEBASTIAN (dyspnea on exer tion), edema, orthopnea, palpitations, parox nocturnal dyspnea, other. Objective General VS: Last Documented: Result Date Time B/P 105/64 11/30 1410 Temp 37.0 11/30 1410 Pulse 71 11/30 1410 Resp 18 11/30 1410 B/P Mean 90.0 11/30 1215 Pulse Ox 98 11/30 1215 Vital Signs Date Temp Pulse Resp B/P B/P Mean Pulse Ox FiO2 11/29-11/30 35.7-37.2 71-143 16-20 95-125/49-85 64.0-100.0 96-100 PATIENT WEIGHT: Weight (lb): 205 Weight (oz): Weight (kg): 92.986 Physical Exam HEENT: normocephalic w/o injury Lungs: unlabored breathing Breasts: deferred Abdomen: gravid, soft, no abnormal tenderness Uterine activity: Monitor: toco Cervical/ exam: Dilatation (cm): 0 - closed Effacement (%): 30 station: - 3 Membranes: Membranes: Intact Baby A: Baby A baseline: 150 bpm Baby A variability: moderate 6-25 bpm Baby A accelerations: 15 X 15 Baby A decelerations: late Baby A FHR category: category 2 Diagnosis, Assessment Plan Diagnosis, Assessment Plan Free Text A P: 25 y/o G1 @36.4 weeks with T1DM on insulin admit olga for IOL. Patient delivered via primary due NRFHT s remote from delivery. Assessment/Impression: abnormal FHR pattern Plan: at 1829 Electronically Signed by Natalie Corrales MD on 12/05 at 1942 RPT #:[id number] END OF REPORT 2020-11-26 12:07:00-00:00 [facility] ([facility]) OB Disch Undelivered REPORT#:[id number] REPORT STATUS: Signed DATE:11/26/20 TIME: 1207 PATIENT: TASHI MOSQUERA UNIT #: [id number] ROOM/BED: [facility]6-A : 94 AGE: 25 SEX: F ATTEND: Natalie Corrales MD ADM AUTHOR: Natalie Corrales MD * ALL edits or amendments must be made on the [employer]/computer document * Subjective Subjective Patient reports: Patient reports: Yes: normal movement. No: complaints, abd ominal pain, vaginal bleeding , leaking fluid, contractions. Comments: she had low sugars 2 nights in a row down to 70s with shaking requiring a snack, which bumped her fasting asccucheck Objective General VS: Last Documented: Result Date Time B/P Mean 99.0 11/26 1015 Pulse Ox 99 11/26 1015 B/P 122/83 11/26 1015 Temp 97.3 11/26 1015 Pulse 107 11/26 1015 Resp 18 11/26 1015 Vital Signs Date Temp Pulse Resp B/P B/P Mean Pulse Ox FiO2 11/25-11/26 97.3 96-107 18 122-128/82-83 99.0-1 01.0 99 PATIENT WEIGHT: Weight (lb): Weight (oz): Weight (kg): 92.822476 Physical Exam FHR evaluation: Baby A baseline: 140 bpm Baby A variability: moderate 6-25 bpm Baby A accelerations: 15 X 15 Baby A FHR category: category 1 HEENT: normocephalic w/o injury Neuro: Exam: alert, oriented x3, normal speech Abdomen: gravid, soft, no abnormal tenderness Discharge Undelivered General Assessment: Patient is a 25 year old at 36 weeks gestation a dmitted for uncontolled DM. She always showed me normal accuchecks but her HbA1C was 11.4. She was admitted for diabetes control, her sugars were high on ad mission Plan: I discussed with her that i will be decreasing t he insulin at bedtime. I recommended to postpone the delivery to 37 weeks insteaed of friday night for better lung matrurity especially with di abetes, and especially that sugars are controlled now and we have t o insulin. She got upset and starting to use F words frequently and said she was leaving. I tried to tell her to wait and see the next 48 hours and we can make a final winters bu t she insisted on leaving. I told her it would be safer to monitor the baby a nd keep her sugars controlled inpatient since they were not controlled outpati ent. Hospital course: she was admitted, received celestone, insulin wa s adjusted to control her diabetes Discharge Instructions Diet: Diabetic Additional Discharge Routines: PCP Follow-Up ( is with me ), instruction was given to RN when she called to inform ne that patient is signing to leave against medical advice Electronically Signed by Natalie Corrales MD on 11/26 at 1214 RPT #:[id number] END OF REPORT 2020-11-25 20:26:00-00:00 [facility] ([facility]) OB Antepartum Prog Note REPORT#:[id number] REPORT STATUS: Signed DATE:11/25/20 TIME: 2025 PATIENT: TASHI MOSQUERA UNIT #: [id number] ROOM/BED: [facility]6-A : 94 AGE: 25 SEX: F ATTEND: Natalie Corrales MD ADM AUTHOR: Natalie Corrales MD * ALL edits or amendments must be made on the [employer]/computer document * Subjective Subjective Patient reports: Patient reports: Yes normal movement, No no complaints, No abdominal pain, No vaginal bleeding, No leaking fluid, No contractions Objective VS: Last Documented: Result Date Time B/P Mean 84.0 01/23 0945 Pulse Ox 98 11/25 0945 B/P 108/71 11/25 0945 Pulse 100 11/25 0945 Resp 16 11/25 944 Temp 98.1 11/24 1655 Vital Signs Date Temp Pulse Resp B/P B/P Mean Pulse Ox FiO2 11/24-11/25 100-112 16 108-109/71-76 84.0-88.0 97-98 PATIENT WEIGHT: Weight (lb): Weight (oz): Weight (kg): 92.987871 Procedures: non stress test HEENT: normocephalic w/o injury Neuro: Exam: alert, oriented x3, normal speech Abdomen: gravid, soft, no abnormal tenderness Baby A: Baby A baseline: 140 bpm Baby A variability: moderate 6-25 bpm Baby A accelerations: 15 X 15 Baby A FHR category: category 1 Diagnosis, Assessment Plan Diagnosis, Assessment Plan Assessment: IUP 35 6/7 weeks, DM I uncontrolled. non compliance Plan: continue current managmnt, betamethasone a dmin, surveillance, diabetes contol, IOL on Friday will adjut insul in Electronically Signed by Natalie Corrales MD on 11/25 at 2026 RPT #:[id number] END OF REPORT 2020-11-24 14:34:00-00:00 [facility] ([facility]) OB Antepartum Prog Note REPORT#:[id number] REPORT STATUS: Signed DATE:11/24/20 TIME: 1434 PATIENT: TASHI MOSQUERA UNIT #: [id number] ROOM/BED: [facility]6-A : 94 AGE: 25 SEX: F ATTEND: Natalie Corrales MD ADM AUTHOR: Natalie Corrales MD * ALL edits or amendments must be made on the [employer] document * Subjective Subjective Patient reports: Patient reports: Yes normal movement, No no complaints, No abdominal pain, No vaginal bleeding, No leaking fluid, No contractions Objective VS: Last Documented: Result Date Time B/P Mean 90.0 11/24 908 Pulse Ox 99 11/24 0909 B/P 109/81 01/22 0909 Temp 97.8 11/24 0909 Pulse 99 11/24 0909 Resp 14 11/24 0909 Vital Signs Date Temp Pulse Resp B/P B/P Mean Pulse Ox FiO2 11/23-11/24 97.8 94-99 14-18 109-117/71-81 88.0 -90.0 97-99 PATIENT WEIGHT: Weight (lb): Weight (oz): Weight (kg): 92.038476 Procedures: non stress test HEENT: normocephalic w/o injury Neuro: Exam: alert, oriented x3, normal speech Abdomen: gravid, soft, no abnormal tenderness Baby A: Baby A baseline: 140 bpm Baby A variability: moderate 6-25 bpm Baby A accelerations: 15 X 15 Baby A FHR category: category 1 Diagnosis, Assessment Plan Diagnosis, Assessment Plan Assessment: IUP 35 5/7 weeks, DM I uncontrolled. non compliance Plan: continue current managmnt, betamethasone a dmin, surveillance, diabetes contol, IOL on Friday, will adjut insu parul Electronically Signed by Natalie Corrales MD on 11/24 at 1435 RPT #:[id number] END OF REPORT 2020-11-23 14:30:00-00:00 [facility] ([facility]) OB Antepartum Prog Note REPORT#:[id number] REPORT STATUS: Signed DATE:11/23/20 TIME: 1430 PATIENT: TASHI MOSQUERA UNIT #: [id number] ROOM/BED: [address] : 94 AGE: 25 SEX: F ATTEND: Natalie Corrales MD ADM AUTHOR: Natalie Corrales MD * ALL edits or amendments must be made on the [employer]computer document * Subjective Subjective Patient reports: Patient reports: Yes normal movement, No no complaints, No abdominal pain, No vaginal bleeding, No leaking fluid, No contractions Objective Nursing Documentation Review Nursing data: The data set between the solid lines has been im ported from nursing documentation. Any exceptions have been noted be low under Provider comments. ROM date: ROM time: Labor onset date: Labor onset time: Provider comments on imported nursing data: [] Procedures: non stress test HEENT: normocephalic w/o injury Neuro: Exam: alert, oriented x3, normal speech Abdomen: gravid, soft, no abnormal tenderness Baby A: Baby A baseline: 140 bpm Baby A variability: moderate 6-25 bpm Baby A accelerations: 15 X 15 Baby A FHR category: category 1 Diagnosis, Assessment Plan Diagnosis, Assessment Plan Assessment: IUP 35 4/7 weeks, DM I uncontrolled. non compliance Plan: continue current managmnt, betamethasone a dmin, surveillance, diabetes contol, IOL on Friday Electronically Signed by Natalie Corrales MD on 11/23 at 1432 RPT #:[id number] END OF REPORT 2020-11-22 17:51:00-00:00 [facility] ([facility]) OB Admission / H P REPORT#:[id number] REPORT STATUS: Signed DATE:11/22/20 TIME: 1750 PATIENT: TASHI MOSQUERA UNIT #: [id number] ROOM/BED: 5038-A : 94 AGE: 25 SEX: F ATTEND: Natalie Corrales MD ADM AUTHOR: Natalie Corrales MD * ALL edits or amendments must be made on the el [employer]/computer document * OB History Chief complaint: i am HPI: 25 y old G1 at 35.3 weeks who was aditted due to uncontrolled diabetes and polyhydramnios. She was admitted for DKA back in September. She also has a h/o admissions for DKA. She had declined to stay at the hospital. She was showing normal sugars at the clinic , howver HbA1C on 11/07/20 was 11.8 and her last scan today shwoed ALEXY 26, no complaints Past medical history: diabetes mellitus (type I) Past surgical history: denies PSH Social history: no alcohol use, no tobacco use, no drug use Family history MOTHER (Diabetes mellitus). Medications: Home Medications: INSULIN NPH HUMAN RECOM (NovoLIN N) 44 UNITS SQ QAM INSULIN NPH HUMAN RECOM (NovoLIN N) 44 UNITS SQ BEDTIME PNV WITH FE FUMARATE/FA () INSULIN ASPART (NovoLOG) 1 UNITS SUBQ ASDIR Allergies Coded Allergies: No Known Allergies (11/22/20) Review of Systems Constitutional: Denies: fatigue. Skin: Denies: abrasion. Allergy/Immun: Denies: allergic reaction, anaphylaxis, hives, i tching, rhinorrhea, sneezing, other. Eyes: Denies: redness. ENT: Denies: ear drainage. Respiratory: Denies: SEBASTIAN (dyspnea on exertion). Cardiovascular: Denies: chest pain. GI: Denies: abdominal pain. : Denies: dysuria. Musculoskeletal: Denies: arthritis, extremity pain, extremity swe lling, joint pain, joint swelling, lumbar pain, myalgias, neck pain, thor acic pain, other. Objective General VS: Last Documented: Result Date Time B/P Mean 98.0 11/22 1258 Pulse Ox 100 11/22 1258 B/P 122/85 11/22 1258 Pulse 98 11/22 1258 Vital Signs Date Temp Pulse Resp B/P B/P Mean Pulse Ox FiO2 11/22 98 122/85 98.0 100 PATIENT WEIGHT: Weight (lb): Weight (oz): Weight (kg): 92.957269 Physical Exam HEENT: normocephalic w/o injury Cardiac: regular rate and rhythm Lungs: clear to auscultation Breasts: deferred Neuro: Exam: alert, oriented x3, normal speech Abdomen: gravid, soft, no abnormal tenderness Diagnosis, Assessment Plan Diagnosis, Assessment Plan Assessment/Impression: IUP 35 3/7 weeks, uncontr olled DM I, non compliance, polyhydramnios Plan: admit to inpatient, betamethasone admin, diabetes control, inpatient mgt until delivery around 36- 37 weeks due to high r isk of demise Electronically Signed by Natalie Corrales MD on 11/22 at 1801 RPT #:[id number] END OF REPORT 2020-09-28 04:51:00-00:00 [facility] ([facility]) EMERGENCY PROVIDER REPORT REPORT#:[id number] REPORT STATUS: Signed DATE:09/28/20 TIME: 0451 PATIENT: TASHI MOSQUERA UNIT #: [id number] ROOM/BED: AGE: 25 SEX: F PCP PHYS: Natalie Corrales MD SERVICE AUTHOR: Cipriano Alex III, MD * ALL edits or amendments must be made on the [employer]/computer document * TONY History Nursing Documentation Review Nursing data: [facility] TONY 25 year old white female Primagravida @ 27.3 we eks CC Vaginal bleeding HPI She came to triage with a recent episode of lite vaginal bleeding. She denies vaginal bleeding in the past. The episode happened at about 1 am spontaneously. No recent intercourse. No ab pain, not leaking amniotic fluid, endorses posi tive movements. She is a type 1 insulin dependant diabetic. She was recently hospitaliz ed on 09/26 and treated for diabetic ketoacidoisis. She recovered and was discharged from the [facility] yesterday. She had been advised to stay in the hospital as this was her second admissio n and treatment for DKA. care with Dr. Corrales. Claims normal OB USG during her pregnan cy. PMH Allergies Allergy Severity Reaction Updated Coded No Known Allergies 09/28/20 OB Primagravida PMH Type 1 IDDM, DKA PSH Denied MEDS Insulin FMH Positive for diabetes SH No smoke, no etoh, no drugs ROS No fever, no cough, no sore throat, no shortness of breath, no chest pain, no ab pain, not daniela, not leaking amniotic fluid, e ndorses positive movements. Family history MOTHER (Diabetes mellitus). Medications: Home Medications: Medication Dose/Rte/Freq Days Qty Entered Last Max Daily Dose Reviewed INSULIN NPH HUMAN 36 UNITS SUBQ 09/28/20 RECOM BID AC 0401 (NovoLIN N) Strength: 100 UNIT/ML VIAL INSULIN ASPART (NovoLOG) 1 UNITS SUBQ ASDIR Strength: 100 UNIT/ML VIAL 0401 Allergies Coded Allergies: No Known Allergies (09/28/20) Objective General VS: Patient Weight Weight (lb): 180 Weight (oz): Weight (kg): 81.647 No acute distress, alert, normal affect Afebrile, 123/87, pulse 103 PUL Chest clear to auscultation, unlabored respi rations CVR RRR AB Gravid and nontender SVE No vaginal bleeding, cervix is closed EXT No pathological pretibial edema, normal refl exes, no calf tenderness TOCO She is not daniela FHT Reassuriing, category one, accelerations are present Refused to have labs drawn. Agreed to a UA and USG only. Laboratory Tests: 09/28 09/28 0517 0435 Chemistry POC Glucose (65 - 110 mg/dL) 91 Urines Urine Color (YELLOW) YELLOW Urine Appearance (CLEAR) Slightly-Cloudy Urine pH (5 - 9) 5.0 Ur Specific Lockhart (1.001 - 1.035) 1.027 Urine Protein (NEG) NEGATIVE Urine Glucose (UA) (NEG) 3+ H Urine Ketones (NEG) TRACE H Urine Blood (NEG) NEG Urine Nitrite (NEG) NEG Urine Bilirubin (NEG) NEGATIVE Urine Urobilinogen (NEG mg/dL) 2.0 Ur Leukocyte Esterase (NEG) TRACE H Urine RBC (NONE SEEN #/hpf) 3-5 H Urine WBC (NONE SEEN #/hpf) 3-5 H Ur Epithelial Cells (RARE - FEW #/HPF) RARE Calcium Oxalate Crystal (#/LPF) 11-15 Urine Bacteria (RARE - FEW /HPF) RARE Urine Mucus (NONE SEEN) RARE Recent Impressions: ULTRASOUND - [facility] 09/28 0515 Report Impression - Status: SIGNED Entered: 09/28/2020 0609 IMPRESSION: Single live intrauterine at 27 weeks 3 days as above described. ALEXY 17.8 cm. Trace fluid in the endocervical canal. The structures are not individually charac terized on this examination, but no abnormality is demonstrated. GENERAL OBSERVATIONS REGARDING ULTRASO UND: 1. A normal or negative sonogram report should n ot delay further investigation of a clinically suspicious or abno rmal . 2. position or overlap of parts may prevent complete evaluation of the fetus. 3. Congenital and developmental abnormalities ar e not always sonographically visualized. 4. Repeat sonograms may be necessary depending o n the clinical development during . SL: TPAINTER-H Impression By: [email or web address] - Arpit Jaffe MD Results Findings/Data: Laboratory Tests: 09/2817 0435 Chemistry POC Glucose (65 - 110 mg/dL) 91 Urines Urine Color (YELLOW) YELLOW Urine Appearance (CLEAR) Slightly-Cloudy Urine pH (5 - 9) 5.0 Ur Specific Lockhart (1.001 - 1.035) 1.027 Urine Protein (NEG) NEGATIVE Urine Glucose (UA) (NEG) 3+ H Urine Ketones (NEG) TRACE H Urine Blood (NEG) NEG Urine Nitrite (NEG) NEG Urine Bilirubin (NEG) NEGATIVE Urine Urobilinogen (NEG mg/dL) 2.0 Ur Leukocyte Esterase (NEG) TRACE H Urine RBC (NONE SEEN #/hpf) 3-5 H Urine WBC (NONE SEEN #/hpf) 3-5 H Ur Epithelial Cells (RARE - FEW #/HPF) RARE Calcium Oxalate Crystal (#/LPF) 11-15 Urine Bacteria (RARE - FEW /HPF) RARE Urine Mucus (NONE SEEN) RARE Recent Impressions: ULTRASOUND - [facility] 09/28 515 Report Impression - Status: SIGNED Entered: 09/28/2020 0609 IMPRESSION: Single live intrauterine at 27 weeks 3 days as above described. ALEXY 17.8 cm. Trace fluid in the endocervical canal. The structures are not individually charac terized on this examination, but no abnormality is demonstrated. GENERAL OBSERVATIONS REGARDING ULTRASO UND: 1. A normal or negative sonogram report should n ot delay further investigation of a clinically suspicious or abno rmal . 2. position or overlap of parts may prevent complete evaluation of the fetus. 3. Congenital and developmental abnormalities ar e not always sonographically visualized. 4. Repeat sonograms may be necessary depending o n the clinical development during . SL: TPAINTER-H Impression By: [email or web address] - Arpit Jaffe MD Diagnosis, Assessment Plan Diagnosis, Assessment Plan Free Text A P: A IUP at 27.3 weeks Vaginal bleeding benign exam today. no vaginal bleeding noted on exam. not in labor with reassuring fhts Type 1 IDDM blood sugar today 91 P I gave her results of her testing. I also spo ke with Dr Ni. Cleared for discharge. Labor precautions. jr Electronically Signed by Cipriano Alex III, MD on at 1156 RPT #:[id number] END OF REPORT 2020-09-27 17:35:00-00:00 [facility] ([facility]) OB Disch Undelivered REPORT#:[id number] REPORT STATUS: Signed DATE:09/27/20 TIME: 5 PATIENT: TASHI MOSQUERA UNIT #: [id number] ROOM/BED: [address] : 94 AGE: 25 SEX: F ATTEND: Natalie Corrales MD ADM AUTHOR: Natalie Corrales MD * ALL edits or amendments must be made on the [employer]computer document * Subjective Subjective Patient reports: Patient reports: Yes: abdominal pain, vaginal bleeding, leaking fluid, contractions, normal movement. No: complaints. Comments: i saw her around 8am Objective General VS: Last Documented: Result Date Time Pulse Ox 98 09/27 1500 B/P 102/66 09/27 1500 B/P Mean 78 09/27 1500 Pulse 121 09/27 1500 Resp 22 09/27 1500 FiO2 21 09/27 1100 O2 Delivery Room air 09/27 1100 Temp 97.7 09/27 1100 Vital Signs Date Temp Pulse Resp B/P B/P Mean Pulse Ox FiO2 09/26-09/27 97.7-98.4 85-121 14-28 93-122/55-76 71-90 97-100 21 Patient Weight Weight (lb): 182 Weight (oz): 5.16 Weight (kg): 82.700 Physical Exam HEENT: normocephalic w/o injury Neuro: Exam: alert, oriented x3, normal speech Abdomen: gravid, soft, no abnormal tenderness Discharge Undelivered General Assessment: Patient is a 25 year old G 1 at 27.2 weeks gesta tion admitted for diabetic ketoacidosis Plan: she asked to leave and i advised her to stay to monitor sugars and BP, risks discussed. late afternoon, I recevied a notice saloni Winters her RN that patient left A Hospital course: insulin drip was started per protocol, anion gap was closed. She was started on her insulin regimen which was increased to Levem ir 42u BID and Humalog 20u before meals. Her sugars much improved. I recommended to stay inpatient due to recurrent DKA (she had one earlier in ) and new onset preeclampsia, whch could lead to advserse outcomes including and maternal or morbidities Notes: ULTRASOUND: POSTERIOR PLACEN TA, BREECH, EFW 982 GMS AT 42%, ALEXY 22 CM, BPP 8/8, NL UA DOPPLERS Discharge Instructions Diet: Diabetic Additional Discharge Routines: follow up one quita romero at my office Prescriptions: Stop taking the following medications: INSULIN ASPART (NovoLOG) 100 UNIT/ML VIAL 1 UNITS SUBCUTANEOUS DIRECTED. INSULIN NPH HUMAN RECOM (NovoLIN N) 100 UNIT/ML VIAL 36 UNITS SUBCUTANEOUS TWICE DAILY BEFORE MEALS. Electronically Signed by Natalie Corrales MD on 09/27 at 1742 RPT #:[id number] END OF REPORT 2020-09-27 17:35:00-00:00 [facility] ([facility]) OB Disch Undelivered REPORT#:[id number] REPORT STATUS: Signed DATE:09/27/20 TIME: 1735 PATIENT: TASHI MOSQUERA UNIT #: [id number] ROOM/BED: [address] : 94 AGE: 25 SEX: F ATTEND: Natalie Corrales MD ADM AUTHOR: Natalie Corrales MD * ALL edits or amendments must be made on the [employer] document * See Addendum Subjective Subjective Patient reports: Patient reports: Yes: abdominal pain, vaginal bleeding, leaking fluid, contractions, normal movement. No: complaints. Comments: i saw her around 8am Objective General VS: Last Documented: Result Date Time Pulse Ox 98 09/27 1500 B/P 102/66 09/27 1500 B/P Mean 78 09/27 1500 Pulse 121 09/27 1500 Resp 22 09/27 1500 FiO2 21 09/27 1100 O2 Delivery Room air 09/27 1100 Temp 97.7 09/27 1100 Vital Signs Date Temp Pulse Resp B/P B/P Mean Pulse Ox FiO2 09/26-09/27 97.7-98.4 85-121 14-28 93-122/55-76 71-90 97-100 21 Patient Weight Weight (lb): 182 Weight (oz): 5.16 Weight (kg): 82.700 Physical Exam HEENT: normocephalic w/o injury Neuro: Exam: alert, oriented x3, normal speech Abdomen: gravid, soft, no abnormal tenderness Discharge Undelivered General Assessment: Patient is a 25 year old G 1 at 27.2 weeks gesta tion admitted for diabetic ketoacidosis Plan: she asked to leave and i advised her to stay to monitor sugars and BP, risks discussed. late afternoon, I recevied a notice saloni Winters her RN that patient left [place] Hospital course: insulin drip was started per protocol, anion gap was closed. She was started on her insulin regimen which was increased to Levem ir 42u BID and Humalog 20u before meals. Her sugars much improved. I recommended to stay inpatient due to recurrent DKA (she had one earlier in ) and new onset preeclampsia, whch could lead to advserse outcomes including and maternal or morbidities Notes: ULTRASOUND: POSTERIOR PLACEN TA, BREECH, EFW 982 GMS AT 42%, ALEXY 22 CM, BPP 8/8, NL UA DOPPLERS Discharge Instructions Diet: Diabetic Additional Discharge Routines: follow up one quita romero at my office Prescriptions: Stop taking the following medications: INSULIN ASPART (NovoLOG) 100 UNIT/ML VIAL 1 UNITS SUBCUTANEOUS DIRECTED. INSULIN NPH HUMAN RECOM (NovoLIN N) 100 UNIT/ML VIAL 36 UNITS SUBCUTANEOUS TWICE DAILY BEFORE MEALS. Electronically Signed by Natalie Corrales MD on 09/27 at 1742 Addendum 1: 09/27/20 174 by Natalie Corrales MD NST: BASELINE 140, MOD VARIABILITY, ACCELS 10 X 10, CATEG I Electronically Signed by Natalie Corrales MD on 09/27 at 1748 RPT #:[id number] END OF REPORT 2020-09-26 18:37:00-00:00 [facility] ([facility]) Clinical Note REPORT#:[id number] REPORT STATUS: Signed DATE:09/26/20 TIME: 183 PATIENT: TASHI MOSQUERA UNIT #: [id number] ROOM/BED: [address] : 94 AGE: 25 SEX: F ATTEND: Natalie Corrales MD ADM AUTHOR: Natalie Corrales MD * ALL edits or amendments must be made on the [employer] document * Clinical Note Note: I was present and saw her wi th Dr Kerr. I agree with her note and plan, I concur with the plan of care. Electronically Signed by Natalie Corrales MD on 09/26 at 1839 RPT #:[id number] END OF REPORT 2020-09-26 15:39:00-00:00 [facility] ([facility]) OB Admission / H P REPORT#:[id number] REPORT STATUS: Signed DATE:09/26/20 TIME: 153 PATIENT: TASHI MOSQUERA UNIT #: [id number] ROOM/BED: [address] : 94 AGE: 25 SEX: F ATTEND: Natalie Corrales MD ADM AUTHOR: Carol Kerr DO R2 * ALL edits or amendments must be made on the [employer] document * OB History Chief complaint: DKA HPI: Patient is a 25 y/o at 27 1/7 weeks who presents in diabetic ketoacidosis, this being her second admission. S/sx include na usea/vomitting, headache, shortness of breath. States she last ate yesterd ay at 3 pm, and did not eat anything else all day. She may have forg lucy her fast acting insulin as well. She then proceeded to wake up at 3am with vomitt ing. The patient was originally diagnosed wit h T1DM 2 years ago. She was previously admitted to this hospital in August due to DKA. history: : 1 Term: 0 : 0 Abortus: 0 Living children: 0 Current : [facility] EDC: 12/25/19 Admission EGA (weeks) 27 Admission EGA (days) 1 Conditions of : diabetes - pre-existing Past medical history: diabetes mellitus, DKA wit h hospital admission in 2019 Past surgical history: denies PSH Social history: no alcohol use, no tobacco use, no drug use Family history MOTHER (Diabetes mellitus). Medications: Home Medications: INSULIN ASPART (NovoLOG) 1 UNITS SUBQ ASDIR INSULIN NPH HUMAN RECOM (NovoLIN N) 36 UNITS SUB Q BID AC Allergies Coded Allergies: No Known Allergies (08/05/20) Review of Systems Constitutional: lethargy. Denies: chills, fa tigue, fever, generalized weakness, malaise, recent wt loss. Respiratory: Reports: SOB. Denies: SEBASTIAN (dyspnea on exertion), hemoptysis, non productive cough, parox nocturnal dyspn ea, pleurisy, pleuritic pain, pneumonia, productive cough (sputum), wheezing. Cardiovascular: Denies: chest pain, SEBASTIAN (dyspnea on exer tion), edema, orthopnea, palpitations, parox nocturnal dyspnea. GI: Reports: nausea, vomiting. Denies: abdominal mely n, anorexia, constipation, diarrhea, dysphagia, GERD, hematemesis, hematoch ezia, hiatal hernia, melena, rectal pain. : Reports: . Denies: d ysuria, flank pain, frequency, hematuria, nocturia, pelvic pain, previous pregna ncies, urgency, urinary retention, vaginal bleeding, vaginal discharge. Neuro: headache. Denies: bladder dysfunction, bowel dys function, change in LOC, confusion, dizziness, focal weakness, gait probl em, lightheaded, numbness, seizure, slurred speech, spinning sensation, syn cope, unable to speak, vision change, weakness. Objective General VS: Last Documented: Result Date Time Pulse Ox 100 09/26 1500 B/P 122/70 09/26 1500 B/P Mean 91 09/26 1500 Pulse 94 09/26 1500 Resp 21 09/26 1500 FiO2 21 09/26 1433 O2 Delivery Room air 09/26 1433 Temp 36.4 09/26 1433 Vital Signs Date Temp Pulse Resp B/P B/P Mean Pulse Ox FiO2 09/26 36.4 94-101 21-26 111-124/62-74 79-93 100 21 Patient Weight Weight (lb): 182 Weight (oz): 5.16 Weight (kg): 82.700 Physical Exam HEENT: normocephalic w/o injury Cardiac: tachycardia Lungs: tachypnea Neuro: Exam: alert, oriented x3, normal speech Abdomen: gravid, soft, no abnormal tenderness Lower extremities: Edema: trace Bryant's sign: negative Calf tenderness: negative Result Findings/Data: Microbiology: Date/Time Procedure - Status Source Growth 09/26 1536 Urine Culture - ORD URINE 09/26 1459 MRSA Screen - ORD NASAL Diagnosis, Assessment Plan Diagnosis, Assessment Plan Free Text A P: Patient is a 25 y/o G1 at 27 1/7 weeks who presents for admission to the ICU 2/2 to diabetic ketoacidosis. PNC c/b T1DM and previ ous admission to hospital for DKA during current . DKA -unknown precipitating factor -rose catheter to measure I/Os -Fluids: -IV NS 1L/h x 2 h, then 500 mL/h until 5-8L of NS has been infused -Continue 100mL/hr of NS x 48 hours -Insulin: * Give 20 units insulin IV bolus, then 5-10 unit s/h by IV infusion * when acidosis resolved (gap is closed) and taz sma glucose is <160 mg/dL, reduce insulin infusion to 0.7 - 2 units/h * Return to patient's prior SQ insulin d osing after plasma glucose stable x 12 hours Glucose * when plasma glucose ,250 mg/dL, add 5% dextros e to NS Potassium * measure K+ q 4 hours and replace per protocol Bicarb: Labs at Baseline upon admission:' H/H 14.8/46.9 K+ 4.7 Glu: 248 Anion gap: 26.9 Assessment/Impression: diabetic ketoacidosis Plan: admit to inpatient, an tiemetics, IVF, surveillance, DVT prophylaxis at 1846 RPT #:[id number] END OF REPORT 2020-09-26 15:39:00-00:00 [facility]) OB Admission / H P REPORT#:[id number] REPORT STATUS: Signed DATE:09/26/20 TIME: 1538 PATIENT: TASHI MOSQUERA UNIT #: [id number] ROOM/BED: IC2-A : 94 AGE: 25 SEX: F ATTEND: Natalie Corrales MD ADM AUTHOR: Carol Kerr DO R2 * ALL edits or amendments must be made on the [employer]/computer document * OB History Chief complaint: DKA HPI: Patient is a 25 y/o at 27 1/7 weeks who presents in diabetic ketoacidosis, this being her second admission. S/sx include na usea/vomitting, headache, shortness of breath. States she last ate yesterd ay at 3 pm, and did not eat anything else all day. She may have forg lucy her fast acting insulin as well. She then proceeded to wake up at 3am with vomitt ing. The patient was originally diagnosed wit h T1DM 2 years ago. She was previously admitted to this hospital in August due to DKA. history: : 1 Term: 0 : 0 Abortus: 0 Living children: 0 Current : Best EDC: 12/25/19 Admission EGA (weeks) 27 Admission EGA (days) 1 Conditions of : diabetes - pre-existing Past medical history: diabetes mellitus, DKA wit h hospital admission in 2019 Past surgical history: denies PSH Social history: no alcohol use, no tobacco use, no drug use Family history MOTHER (Diabetes mellitus). Medications: Home Medications: INSULIN ASPART (NovoLOG) 1 UNITS SUBQ ASDIR INSULIN NPH HUMAN RECOM (NovoLIN N) 36 UNITS SUB Q BID AC Allergies Coded Allergies: No Known Allergies (08/05/20) Review of Systems Constitutional: lethargy. Denies: chills, fa tigue, fever, generalized weakness, malaise, recent wt loss. Respiratory: Reports: SOB. Denies: SEBASTIAN (dyspnea on exertion), hemoptysis, non productive cough, parox nocturnal dyspn ea, pleurisy, pleuritic pain, pneumonia, productive cough (sputum), wheezing. Cardiovascular: Denies: chest pain, SEBASTIAN (dyspnea on exer tion), edema, orthopnea, palpitations, parox nocturnal dyspnea. GI: Reports: nausea, vomiting. Denies: abdominal mely n, anorexia, constipation, diarrhea, dysphagia, GERD, hematemesis, hematoch ezia, hiatal hernia, melena, rectal pain. : Reports: . Denies: d ysuria, flank pain, frequency, hematuria, nocturia, pelvic pain, previous pregna ncies, urgency, urinary retention, vaginal bleeding, vaginal discharge. Neuro: headache. Denies: bladder dysfunction, bowel dys function, change in LOC, confusion, dizziness, focal weakness, gait probl em, lightheaded, numbness, seizure, slurred speech, spinning sensation, syn cope, unable to speak, vision change, weakness. Objective General VS: Last Documented: Result Date Time Pulse Ox 100 09/26 1500 B/P 122/70 09/26 1500 B/P Mean 91 09/26 1500 Pulse 94 09/26 1500 Resp 21 09/26 1500 FiO2 21 09/26 1433 O2 Delivery Room air 09/26 1433 Temp 36.4 09/26 1433 Vital Signs Date Temp Pulse Resp B/P B/P Mean Pulse Ox FiO 2 09/26 36.4 94-101 21-26 111-124/62-74 79-93 100 21 Patient Weight Weight (lb): 182 Weight (oz): 5.16 Weight (kg): 82.700 Physical Exam HEENT: normocephalic w/o injury Cardiac: tachycardia Lungs: tachypnea Neuro: Exam: alert, oriented x3, normal speech Abdomen: gravid, soft, no abnormal tenderness Lower extremities: Edema: trace Bryant's sign: negative Calf tenderness: negative Result Findings/Data: Microbiology: Date/Time Procedure - Status Source Growth 09/26 1536 Urine Culture - ORD URINE 09/26 1459 MRSA Screen - ORD NASAL Diagnosis, Assessment Plan Diagnosis, Assessment Plan Free Text A P: Patient is a 25 y/o G1 at 27 1/7 weeks who presents for admission to the ICU 2/2 to diabetic ketoacidosis. PNC c/b T1DM and previ ous admission to hospital for DKA during current . DKA -unknown precipitating factor -rose catheter to measure I/Os -Fluids: -IV NS 1L/h x 2 h, then 500 mL/h until 5-8L of NS has been infused -Continue 100mL/hr of NS x 48 hours -Insulin: * Give 20 units insulin IV bolus, then 5-10 unit s/h by IV infusion * when acidosis resolved (gap is closed) and taz sma glucose is <160 mg/dL, reduce insulin infusion to 0.7 - 2 units/h * Return to patient's prior SQ insulin d osing after plasma glucose stable x 12 hours Glucose * when plasma glucose ,250 mg/dL, add 5% dextros e to NS Potassium * measure K+ q 4 hours and replace per protocol Bicarb: Labs at Baseline upon admission:' H/H 14.8/46.9 K+ 4.7 Glu: 248 Anion gap: 26.9 Assessment/Impression: diabetic ketoacidosis Plan: admit to inpatient, an tiemetics, IVF, surveillance, DVT prophylaxis at 1846 Electronically Signed by Natalie Corrales MD on 10/07 at 1536 RPT #:[id number] END OF REPORT 2020-08-05 12:12:00-00:00 [facility] ([facility]) OB Antepartum Prog Note REPORT#:[id number] REPORT STATUS: Signed DATE:08/05/20 TIME: 1212 PATIENT: TASHI MOSQUERA UNIT #: [id number] ROOM/BED: [address] : 94 AGE: 25 SEX: F ATTEND: Natalie Corrales MD ADM AUTHOR: Mauricio Aguillon MD * ALL edits or amendments must be made on the [employer]/computer document * Subjective Subjective Admission EGA: Weeks: 19 Days: 5 Patient reports: Patient reports: No vaginal bleeding, No leaking fluid, No contr actions, No headache, No blurred vision, No scotomata Objective Cardiac: regular rate and rhythm Lungs: clear to auscultation Neuro: Exam: alert, oriented x3, normal speech Abdomen: gravid, soft, no abnormal tenderness Lower extremities: Edema: none Baby A: Baby A baseline: present Findings/data: Laboratory Tests 08/05 08/05 0257 0211 Blood Gas Oximetry (% sat) 97.7 ABG pH (7.35 - 7.45) 7.412 ABG pCO2 (35 - 45 mmHg) 29.8 L ABG pO2 (80 - 100 mmHg) 99.0 ABG PO2/FiO2 Ratio (mm/Hg) 471.40 ABG HCO3 (22 - 26 meq/L) 18.6 L ABG O2 Saturation (95 - 100 %) 97.7 ABG Base Excess (-2.0 - +2.0) -4.7 L ABG Hematocrit (37 - 47 %) 38 ABG Hemoglobin (12 - 16 g/dL) 13.0 VBG pH (7.31 - 7.41) 7.020 L VBG pCO2 (mmHg) 67.0 VBG pO2 (mmHg) 55.2 VBG HCO3 (meq/L) 16.9 VBG O2 Sat (Calc) (%) 77.0 VBG Base Excess (-2.0 to +2.0) -14.6 L Methemoglobin (0.0 - 1.5 %) 0.6 Glucose (60 - 110 MG/DL) 201 H Patient On Oxygen Arterial Venous FiO2 (%) 21.0 21.0 Laboratory Tests 08/05 08/05 08/05 1102 0784 0112 Chemistry Sodium (135 - 145 mEq/L) 133 L Potassium (3.5 - 5.0 mEq/L) 3.4 L Chloride (100 - 115 mEq/L) 101 Carbon Dioxide (22 - 31 mEq/L) 27 Anion Gap (10 - 20) 8.90 L BUN (7 - 18 mg/dL) 11 Creatinine (0.5 - 1.0 mg/dL) 0.6 Glomerular Filtr Rate (>60 ml/min) 121 Glucose (65 - 110 mg/dL) 262 H POC Glucose (65 - 110 mg/dL) 91 162 H Calcium (8.4 - 10.2 mg/dL) 7.7 L Total Bilirubin (0.2 - 1.0 mg/dL) 0.2 AST (15 - 37 units/L) 10 L ALT (12 - 78 units/L) 21 Total Alk Phosphatase (46 - 116 units/L) 48 Total Protein (6.3 - 8.2 gm/dL) 6.1 L Albumin (3.4 - 4.8 gm/dL) 2.7 L Lipase (73 - 393 units/L) 85 Laboratory Tests 08/05 112 Hematology WBC (6.6 - 12.1 K/mm3) 7.1 RBC (3.45 - 5.01 M/mm3) 4.04 Hgb (10.7 - 13.9 g/dL) 12.3 Hct (32.1 - 42.1 %) 36.3 MCV (84.1 - 94.8 fL) 90 MCH (27 - 35 pg) 30.4 MCHC (32.2 - 34.1 gm/dL) 33.9 RDW (12.4 - 16.5 %) 12.3 L Plt Count (133 - 385 K/mm3) 236 MPV (9.1 - 12.7 fl) 10.2 Neut % (Auto) (56.5 - 79.4 %) 58.8 Lymph % (Auto) (14.3 - 34.3 %) 32.2 [place] % (Auto) (5.1 - 10.4 %) 5.2 Eos % (Auto) (0.1 - 3.0 %) 3.3 H Baso % (Auto) (0.1 - 1.0 %) 0.1 Neut # (Auto) (K/mm3) 4.2 Lymph # (Auto) (K/mm3) 2.3 [place] # (Auto) (K/mm3) 0.4 Eos # (Auto) (K/mm3) 0.23 Baso # (Auto) (K/mm3) 0.0 Laboratory Tests 08/05 112 Toxicology Acetone, Qual (NEGATIVE) NEGATIVE Laboratory Tests 08/05 128 Urines Urine Color (YELLOW) STRAW Urine Appearance (CLEAR) CLEAR Urine pH (5 - 9) 6.0 Ur Specific Lockhart (1.001 - 1.035) 1.022 Urine Protein (NEG) NEGATIVE Urine Glucose (UA) (NEG) 3+ H Urine Ketones (NEG) NEGATIVE Urine Blood (NEG) NEG Urine Nitrite (NEG) NEG Urine Bilirubin (NEG) NEGATIVE Urine Urobilinogen (NEG mg/dL) NEGATIVE Ur Leukocyte Esterase (NEG) 2+ H Urine RBC (NONE SEEN #/hpf) 3-5 H Urine WBC (NONE SEEN #/hpf) 3-5 H Ur Epithelial Cells (RARE - FEW #/HPF) RARE Urine Bacteria (RARE - FEW /HPF) FEW Urine Mucus (NONE SEEN) RARE Vital Signs: Date Time Temp Pulse Resp B/P B/P Pulse O2 O2 F low FiO2 Mean Ox Delivery Rate 08/05 1154 98.2 96 17 109/74 86.1 98 Room air 08/05 0714 98.4 94 18 93/59 70.2 94 Room air 08/05 0458 98.4 92 18 109/72 84.7 99 08/05 0336 97.6 91 18 107/75 85 08/05 0211 90 18 109/66 80 100 08/05 0056 98.4 90 18 121/81 94 100 Room air Laboratory Tests: 08/05 08/05 08/05 08/05 08/05 1104 0746 0257 0211 0128 Blood Gas Oximetry (% sat) 97.7 ABG pH (7.35 - 7.45) 7.412 ABG pCO2 (35 - 45 mmHg) 29.8 L ABG pO2 (80 - 100 mmHg) 99.0 ABG PO2/FiO2 Ratio (mm/Hg) 471.40 ABG HCO3 (22 - 26 meq/L) 18.6 L ABG O2 Saturation (95 - 100 %) 97.7 ABG Base Excess (-2.0 - +2.0) -4.7 L ABG Hematocrit (37 - 47 %) 38 ABG Hemoglobin (12 - 16 g/dL) 13.0 VBG pH (7.31 - 7.41) 7.020 L VBG pCO2 (mmHg) 67.0 VBG pO2 (mmHg) 55.2 VBG HCO3 (meq/L) 16.9 VBG O2 Sat (Calc) (%) 77.0 VBG Base Excess (-2.0 to +2.0) -14.6 L Methemoglobin (0.0 - 1.5 %) 0.6 Glucose (60 - 110 MG/DL) 201 H Patient On Oxygen Arterial Venous FiO2 (%) 21.0 21.0 Chemistry POC Glucose (65 - 110 mg/dL) 91 162 H Urines Urine Color (YELLOW) STRAW Urine Appearance (CLEAR) CLEAR Urine pH (5 - 9) 6.0 Ur Specific Lockhart (1.001 - 1.035) 1.022 Urine Protein (NEG) NEGATIVE Urine Glucose (UA) (NEG) 3+ H Urine Ketones (NEG) NEGATIVE Urine Blood (NEG) NEG Urine Nitrite (NEG) NEG Urine Bilirubin (NEG) NEGATIVE Urine Urobilinogen (NEG mg/dL) NEGATIVE Ur Leukocyte Esterase (NEG) 2+ H Urine RBC (NONE SEEN #/hpf) 3-5 H Urine WBC (NONE SEEN #/hpf) 3-5 H Ur Epithelial Cells (RARE - FEW RARE #/HPF) Urine Bacteria (RARE - FEW /HPF) FEW Urine Mucus (NONE SEEN) RARE 08/05 0112 Chemistry Sodium (135 - 145 mEq/L) 133 L Potassium (3.5 - 5.0 mEq/L) 3.4 L Chloride (100 - 115 mEq/L) 101 Carbon Dioxide (22 - 31 mEq/L) 27 Anion Gap (10 - 20) 8.90 L BUN (7 - 18 mg/dL) 11 Creatinine (0.5 - 1.0 mg/dL) 0.6 Glomerular Filtr Rate (>60 ml/min) 121 Glucose (65 - 110 mg/dL) 262 H Calcium (8.4 - 10.2 mg/dL) 7.7 L Total Bilirubin (0.2 - 1.0 mg/dL) 0.2 AST (15 - 37 units/L) 10 L ALT (12 - 78 units/L) 21 Total Alk Phosphatase (46 - 116 units/L) 48 Total Protein (6.3 - 8.2 gm/dL) 6.1 L Albumin (3.4 - 4.8 gm/dL) 2.7 L Lipase (73 - 393 units/L) 85 Hematology WBC (6.6 - 12.1 K/mm3) 7.1 RBC (3.45 - 5.01 M/mm3) 4.04 Hgb (10.7 - 13.9 g/dL) 12.3 Hct (32.1 - 42.1 %) 36.3 MCV (84.1 - 94.8 fL) 90 MCH (27 - 35 pg) 30.4 MCHC (32.2 - 34.1 gm/dL) 33.9 RDW (12.4 - 16.5 %) 12.3 L Plt Count (133 - 385 K/mm3) 236 MPV (9.1 - 12.7 fl) 10.2 Neut % (Auto) (56.5 - 79.4 %) 58.8 Lymph % (Auto) (14.3 - 34.3 %) 32.2 [place] % (Auto) (5.1 - 10.4 %) 5.2 Eos % (Auto) (0.1 - 3.0 %) 3.3 H Baso % (Auto) (0.1 - 1.0 %) 0.1 Neut # (Auto) (K/mm3) 4.2 Lymph # (Auto) (K/mm3) 2.3 [place] # (Auto) (K/mm3) 0.4 Eos # (Auto) (K/mm3) 0.23 Baso # (Auto) (K/mm3) 0.0 Toxicology Acetone, Qual (NEGATIVE) NEGATIVE Microbiology: Date/Time Procedure - Status Source Growth 08/05 449 MRSA Screen - CAN NASAL Cancelled: Cancelled via OE: KEYED INCORR ECTLY Recent Impressions: ULTRASOUND - US PREG UT TRANSVAGINAL 08/05 344 Report Impression - Status: SIGNED Entered: 08/05/2020425 IMPRESSION: Single live intrauterine at 19 weeks 5 days. Trace fluid in the endocervical canal. The structures are not individually charac terized on this examination, but no abnormality is appreciated. Small free pelvic fluid. Low-lying posterior grade 1 placenta with tip lo cated 2.7 cm from the internal cervical os. GENERAL OBSERVATIONS REGARDING ULTRASO UND: 1. A normal or negative sonogram report should n ot delay further investigation of a clinically suspicious or abno rmal . 2. position or overlap of parts may prevent complete evaluation of the fetus. 3. Congenital and developmental abnormalities ar e not always sonographically visualized. 4. Repeat sonograms may be necessary depending o n the clinical development during . SL: TPAINTER-H . Impression By: [email or web address] - Arpit Jaffe MD ULTRASOUND - US LTD 08/05 344 Report Impression - Status: SIGNED Entered: 08/05/2020425 IMPRESSION: Single live intrauterine at 19 weeks 5 days. Trace fluid in the endocervical canal. The structures are not individually charac terized on this examination, but no abnormality is appreciated. Small free pelvic fluid. Low-lying posterior grade 1 placenta with tip lo cated 2.7 cm from the internal cervical os. GENERAL OBSERVATIONS REGARDING ULTRASO UND: 1. A normal or negative sonogram report should n ot delay further investigation of a clinically suspicious or abno rmal . 2. position or overlap of parts may prevent complete evaluation of the fetus. 3. Congenital and developmental abnormalities ar e not always sonographically visualized. 4. Repeat sonograms may be necessary depending o n the clinical development during . SL: TPAINTER-H . Impression By: [email or web address] - Arpit Jaffe MD Diagnosis, Assessment Plan Diagnosis, Assessment Plan Free Text A P: Single live intrauterine at 19 weeks 5 days. Trace fluid in the endocervical canal. The structures are not individually charac terized on this examination, but no abnormality is appreciated. Small free pelvic fluid. Low-lying posterior grade 1 placenta with tip lo cated 2.7 cm from the internal cervical os. diabetes controlled d/c home f/u Dr Corrales on friday Electronically Signed by Mauricio Aguillon MD on 01/20 at 1213 RPT #:[id number] END OF REPORT 2020-08-05 05:15:00-00:00 [facility] ([facility]) OB Admission / H P REPORT#:[id number] REPORT STATUS: Signed DATE:08/05/20 TIME: 514 PATIENT: TASHI MOSQUERA UNIT #: [id number] ROOM/BED: [address] : 94 AGE: 25 SEX: F ATTEND: Natalie Corrales MD ADM AUTHOR: Filomena Wesley MD * ALL edits or amendments must be made on the el [employer]/computer document * OB History Chief complaint: elevated blood sugar HPI: 25yo G1 at 19 5/7 wks with k nown Class B DM presented to [facility] ER due to gluc of 417 at home. States she at "a lot" of akers gar free dark chocolate. Pt has been diabetic and on insulin for last 2 year s but since becoming has had increased difficulty controling sugars. Pt states she had a headache associated with the gluc elevation. Pt was seen in ED where gluc was in the 300s, was given fluids, insulin and potassium an d was transfered to [facility] for evaluation. history: : 1 Living children: 0 Current : Best EDC: 12/25/20 Admission EGA (weeks) 19 Admission EGA (days) 5 Conditions of : diabetes - pre-existing Past medical history: diabetes mellitus Past surgical history: denies PSH Social history: no alcohol use, no tobacco use, no drug use Family history MOTHER (Diabetes mellitus). Medications: Home Medications: INSULIN ASPART (NovoLOG) 1 UNITS SUBQ ASDIR Novolin 34u am and 34u pm Novolog SSI for gluc >150 and based on carb coun ting (1u/10gm carbs) Allergies Coded Allergies: No Known Allergies (08/05/20) Review of Systems All systems rev neg: except as marked Objective General VS: Last Documented: Result Date Time Pulse Ox 99 08/05 458 B/P 109/72 08/05 458 B/P Mean 84.7 08/05 458 Temp 98.4 08/05 458 Pulse 92 08/05 458 Resp 18 08/05 458 O2 Delivery Room air 08/05 0056 Vital Signs Date Temp Pulse Resp B/P B/P Mean Pulse Ox FiO2 08/05 97.6-98.4 90-92 18 107-121/66-81 80-94 99 -100 Patient Weight Weight (lb): Weight (oz): Weight (kg): 72.000 Physical Exam Cardiac: regular rate and rhythm Lungs: clear to auscultation Neuro: Exam: alert, oriented x3, normal speech Abdomen: gravid, soft, no abnormal tenderness Lower extremities: Edema: none Baby A: Baby A baseline: present Result Findings/Data: Laboratory Tests: 08/05 08/05 08/05 08/05 0257 0211 0128 0112 Blood Gas Oximetry (% sat) 97.7 ABG pH (7.35 - 7.45) 7.412 ABG pCO2 (35 - 45 mmHg) 29.8 L ABG pO2 (80 - 100 mmHg) 99.0 ABG PO2/FiO2 Ratio (mm/Hg) 471.40 ABG HCO3 (22 - 26 meq/L) 18.6 L ABG O2 Saturation (95 - 100 %) 97.7 ABG Base Excess (-2.0 - +2.0) -4.7 L ABG Hematocrit (37 - 47 %) 38 ABG Hemoglobin (12 - 16 g/dL) 13.0 VBG pH (7.31 - 7.41) 7.020 L VBG pCO2 (mmHg) 67.0 VBG pO2 (mmHg) 55.2 VBG HCO3 (meq/L) 16.9 VBG O2 Sat (Calc) (%) 77.0 VBG Base Excess (-2.0 to +2.0) -14.6 L Methemoglobin (0.0 - 1.5 %) 0.6 Glucose (60 - 110 MG/DL) 201 H Patient On Oxygen Arterial Venous FiO2 (%) 21.0 21.0 Chemistry Sodium (135 - 145 mEq/L) 133 L Potassium (3.5 - 5.0 mEq/L) 3.4 L Chloride (100 - 115 mEq/L) 101 Carbon Dioxide (22 - 31 mEq/L) 27 Anion Gap (10 - 20) 8.90 L BUN (7 - 18 mg/dL) 11 Creatinine (0.5 - 1.0 mg/dL) 0.6 Glomerular Filtr Rate (>60 ml/min) 121 Glucose (65 - 110 mg/dL) 262 H Calcium (8.4 - 10.2 mg/dL) 7.7 L Total Bilirubin (0.2 - 1.0 mg/dL) 0.2 AST (15 - 37 units/L) 10 L ALT (12 - 78 units/L) 21 Total Alk Phosphatase (46 - 116 48 units/L) Total Protein (6.3 - 8.2 gm/dL) 6.1 L Albumin (3.4 - 4.8 gm/dL) 2.7 L Lipase (73 - 393 units/L) 85 Hematology WBC (6.6 - 12.1 K/mm3) 7.1 RBC (3.45 - 5.01 M/mm3) 4.04 Hgb (10.7 - 13.9 g/dL) 12.3 Hct (32.1 - 42.1 %) 36.3 MCV (84.1 - 94.8 fL) 90 MCH (27 - 35 pg) 30.4 MCHC (32.2 - 34.1 gm/dL) 33.9 RDW (12.4 - 16.5 %) 12.3 L Plt Count (133 - 385 K/mm3) 236 MPV (9.1 - 12.7 fl) 10.2 Neut % (Auto) (56.5 - 79.4 %) 58.8 Lymph % (Auto) (14.3 - 34.3 %) 32.2 [place] % (Auto) (5.1 - 10.4 %) 5.2 Eos % (Auto) (0.1 - 3.0 %) 3.3 H Baso % (Auto) (0.1 - 1.0 %) 0.1 Neut # (Auto) (K/mm3) 4.2 Lymph # (Auto) (K/mm3) 2.3 [place] # (Auto) (K/mm3) 0.4 Eos # (Auto) (K/mm3) 0.23 Baso # (Auto) (K/mm3) 0.0 Toxicology Acetone, Qual (NEGATIVE) NEGATIVE Urines Urine Color (YELLOW) STRAW Urine Appearance (CLEAR) CLEAR Urine pH (5 - 9) 6.0 Ur Specific Lockhart (1.001 - 1.035) 1.022 Urine Protein (NEG) NEGATIVE Urine Glucose (UA) (NEG) 3+ H Urine Ketones (NEG) NEGATIVE Urine Blood (NEG) NEG Urine Nitrite (NEG) NEG Urine Bilirubin (NEG) NEGATIVE Urine Urobilinogen (NEG mg/dL) NEGATIVE Ur Leukocyte Esterase (NEG) 2+ H Urine RBC (NONE SEEN #/hpf) 3-5 H Urine WBC (NONE SEEN #/hpf) 3-5 H Ur Epithelial Cells (RARE - FEW #/HPF) RARE Urine Bacteria (RARE - FEW /HPF) FEW Urine Mucus (NONE SEEN) RARE Microbiology: Date/Time Procedure - Status Source Growth 08/05 449 MRSA Screen - CAN NASAL Cancelled: Cancelled via OE: KEYED INCORR ECTLY Recent Impressions: ULTRASOUND - US PREG UT TRANSVAGINAL 08/05 344 Report Impression - Status: SIGNED Entered: 08/05/2020 0426 IMPRESSION: Single live intrauterine at 19 weeks 5 days. Trace fluid in the endocervical canal. The structures are not individually charac terized on this examination, but no abnormality is appreciated. Small free pelvic fluid. Low-lying posterior grade 1 placenta with tip lo cated 2.7 cm from the internal cervical os. GENERAL OBSERVATIONS REGARDING ULTRASO UND: 1. A normal or negative sonogram report should n ot delay further investigation of a clinically suspicious or abno rmal . 2. position or overlap of parts may prevent complete evaluation of the fetus. 3. Congenital and developmental abnormalities ar e not always sonographically visualized. 4. Repeat sonograms may be necessary depending o n the clinical development during . SL: TPAINTER-H . Impression By: Samanta Jaffe MD ULTRASOUND - US LTD 08/05 344 Report Impression - Status: SIGNED Entered: 08/05/2020425 IMPRESSION: Single live intrauterine at 19 weeks 5 days. Trace fluid in the endocervical canal. The structures are not individually charac terized on this examination, but no abnormality is appreciated. Small free pelvic fluid. Low-lying posterior grade 1 placenta with tip lo cated 2.7 cm from the internal cervical os. GENERAL OBSERVATIONS REGARDING ULTRASO UND: 1. A normal or negative sonogram report should n ot delay further investigation of a clinically suspicious or abno rmal . 2. position or overlap of parts may prevent complete evaluation of the fetus. 3. Congenital and developmental abnormalities ar e not always sonographically visualized. 4. Repeat sonograms may be necessary depending o n the clinical development during . SL: TPAINTER-H . Impression By: Samanta Jaffe MD Diagnosis, Assessment Plan Diagnosis, Assessment Plan Free Text A P: -25yo G1 at 19 5/7 weeks with class b DM with el evation to 417 today. No evidence of DKA based on no urine or serum keton es and ABG normal (VBG was incorrectly drawn). FSBS indicate further declin e of gluc. -Will admit per recommendation of Dr Aguillon to further observe and control gluc. Home insulin ordered as per her ty pical regimen and SSI ordered to cover >150 - status- Normal u/s with low lying placent a Electronically Signed by Filomena Wesley MD on 01/20 at 0526 RPT #:[id number] END OF REPORT 2020-08-05 03:10:00-00:00 [facility] ([facility]) EMERGENCY PROVIDER REPORT REPORT#:[id number] REPORT STATUS: Signed DATE:08/05/20 TIME: 309 PATIENT: TASHI MOSQUERA UNIT #: [id number] ROOM/BED: AGE: 25 SEX: F PCP PHYS: No Primary or Family Ph ysician SERVICE AUTHOR: Shira Arredondo MD * ALL edits or amendments must be made on the el [employer]/computer document * HPI-General Illness Free Text HPI Notes Free Text HPI Notes 25-year-old female at 19 weeks 5 days gesta tional age with a history of type 1 diabetes transferred from [facility] emergency room for evaluation of hyperglycemia. She was found to have an initial blood glucose level of 367. She received 2 L of NS and 20 mEq of oral potass ium prior to transfer. Patient states that she noticed that her blood s ugar levels have been fluctuating to elevated levels over the past 1 w mohegan despite her prescribed insulin use. Patient has been taking her basal N ovolin insulin 30 units every morning and q. afternoon as per her normal routi ne. Patient also does sliding scale NovoLog insulin with meals. Patient last u se Novolin at 1500 yesterday and NovoLog 12 units at 2000 yesterday. Patient denies fever, dysuria, cough, shortness of breath, nausea, vomiting, diarrhea. Patient states that in route to our emergency room on the ambulance, she deve loped mild lower abdominal aching pain/ General Initial Greet Date/Time 08/05/20 0056 Presentation Chief Complaint __ (Hyperglycemia) Review of Systems ROS Statements All systems rev neg except as marked. Review of Systems Constitutional Denies: Fatigue, Fever, Weakness - generalized. Respiratory Denies: Cough, non-productive, Cough, productive , Shortness of breath. Cardiovascular Denies: Chest pain. GI Reports: Abdominal pain. Denies: Constipation, D iarrhea, Nausea, Vomiting. Female Reports: Pelvic pain, Pregna nt. Denies: Dysuria, Flank pain, Urinary frequency, Urinary urgency, Vaginal bleeding - abnl, Vagina l discharge. Musculoskeletal Denies: Back pain, Extremity pain, Extremity swe lling. Skin Denies: Itching, Rash. Neurologic Denies: Confusion, Dizziness, Focal weakness, Ge neralized weakness, Headache, Lightheaded, Numbness, Problem walking. Psychiatric Denies: Change mental status, Confusion. Past Medical History - Adult Stated Complaint 20WEEKS WITH HIGH BLOO D SUGAR Allergies Coded Allergies: No Known Allergies (08/05/20) Home Medications Reported Medications INSULIN ASPART (NovoLOG) 1 UNITS SUBQ ASDIR Physical Exam Vital Signs Vital Signs First Documented: Result Date Time Pulse Ox 100 08/05 56 B/P 121/81 08/05 56 B/P Mean 94 08/05 56 O2 Delivery Room air 08/05 56 Temp 98.4 08/05 56 Pulse 90 08/05 56 Resp 18 08/05 56 Last Documented: Result Date Time Pulse Ox 100 08/05 211 B/P 109/66 08/05 211 B/P Mean 80 08/05 211 Pulse 90 08/05 211 Resp 18 08/05 211 O2 Delivery Room air 08/05 56 Temp 98.4 08/05 56 Review of Vital Signs Reviewed Physical Exam General/Const General/Const Awake, Alert, No acute di stress, Well appearing, Well developed , Well hydrated, Well nourished, Cooperative, No t toxic appearing MS Head Head Atraumatic, Normocephalic Resp/Chest Respiratory/Chest Atraumatic, Breath sounds NL, Breath sounds = bilat, No respiratory distress, No rales, No rhonchi, No w heezing, No retractions Cardiovascular Cardiovascular Heart rate NL, Regular rhythm, H eart sounds NL, No gallop, No murmurs Abdomen/GI Abdomen/GI Atraumatic, Soft, Non-tender, McBurn ey's non-tender, No guarding, BS normoactive, gravid abdomen with fundal heigh t at umbilicus MS Back Back Atraumatic, Inspection NL, No CVA tenderne ss Skin Skin Atraumatic, Color NL, No rash, Warm, Dry, Intact Neurologic Neurologic Oriented X3, Speech NL, CN II - XII intact, Gait NL Psychiatric Psychiatric Affect NL, Mood NL Interpretation Diagnostics Lab Results Interpretation Results Laboratory Tests 08/05/20 0112: [Embedded Image Not Available] Laboratory Tests: 08/057 210 0128 0112 Blood Gas Oximetry (% sat) 97.7 ABG pH (7.35 - 7.45) 7.412 ABG pCO2 (35 - 45 mmHg) 29.8 L ABG pO2 (80 - 100 mmHg) 99.0 ABG PO2/FiO2 Ratio (mm/Hg) 471.40 ABG HCO3 (22 - 26 meq/L) 18.6 L ABG O2 Saturation (95 - 100 %) 97.7 ABG Base Excess (-2.0 - +2.0) -4.7 L ABG Hematocrit (37 - 47 %) 38 ABG Hemoglobin (12 - 16 g/dL) 13.0 VBG pH (7.31 - 7.41) 7.020 L VBG pCO2 (mmHg) 67.0 VBG pO2 (mmHg) 55.2 VBG HCO3 (meq/L) 16.9 VBG O2 Sat (Calc) (%) 77.0 VBG Base Excess (-2.0 to +2.0) -14.6 L Methemoglobin (0.0 - 1.5 %) 0.6 Glucose (60 - 110 MG/DL) 201 H Patient On Oxygen Arterial Venous FiO2 (%) 21.0 21.0 Chemistry Sodium (135 - 145 mEq/L) 133 L Potassium (3.5 - 5.0 mEq/L) 3.4 L Chloride (100 - 115 mEq/L) 101 Carbon Dioxide (22 - 31 mEq/L) 27 Anion Gap (10 - 20) 8.90 L BUN (7 - 18 mg/dL) 11 Creatinine (0.5 - 1.0 mg/dL) 0.6 Glomerular Filtr Rate (>60 ml/min) 121 Glucose (65 - 110 mg/dL) 262 H Calcium (8.4 - 10.2 mg/dL) 7.7 L Total Bilirubin (0.2 - 1.0 mg/dL) 0.2 AST (15 - 37 units/L) 10 L ALT (12 - 78 units/L) 21 Total Alk Phosphatase (46 - 116 48 units/L) Total Protein (6.3 - 8.2 gm/dL) 6.1 L Albumin (3.4 - 4.8 gm/dL) 2.7 L Lipase (73 - 393 units/L) 85 Hematology WBC (6.6 - 12.1 K/mm3) 7.1 RBC (3.45 - 5.01 M/mm3) 4.04 Hgb (10.7 - 13.9 g/dL) 12.3 Hct (32.1 - 42.1 %) 36.3 MCV (84.1 - 94.8 fL) 90 MCH (27 - 35 pg) 30.4 MCHC (32.2 - 34.1 gm/dL) 33.9 RDW (12.4 - 16.5 %) 12.3 L Plt Count (133 - 385 K/mm3) 236 MPV (9.1 - 12.7 fl) 10.2 Neut % (Auto) (56.5 - 79.4 %) 58.8 Lymph % (Auto) (14.3 - 34.3 %) 32.2 [place] % (Auto) (5.1 - 10.4 %) 5.2 Eos % (Auto) (0.1 - 3.0 %) 3.3 H Baso % (Auto) (0.1 - 1.0 %) 0.1 Neut # (Auto) (K/mm3) 4.2 Lymph # (Auto) (K/mm3) 2.3 [place] # (Auto) (K/mm3) 0.4 Eos # (Auto) (K/mm3) 0.23 Baso # (Auto) (K/mm3) 0.0 Toxicology Acetone, Qual (NEGATIVE) NEGATIVE Urines Urine Color (YELLOW) STRAW Urine Appearance (CLEAR) CLEAR Urine pH (5 - 9) 6.0 Ur Specific [place] (1.001 - 1.035) 1.022 Urine Protein (NEG) NEGATIVE Urine Glucose (UA) (NEG) 3+ H Urine Ketones (NEG) NEGATIVE Urine Blood (NEG) NEG Urine Nitrite (NEG) NEG Urine Bilirubin (NEG) NEGATIVE Urine Urobilinogen (NEG mg/dL) NEGATIVE Ur Leukocyte Esterase (NEG) 2+ H Urine RBC (NONE SEEN #/hpf) 3-5 H Urine WBC (NONE SEEN #/hpf) 3-5 H Ur Epithelial Cells (RARE - FEW #/HPF) RARE Urine Bacteria (RARE - FEW /HPF) FEW Urine Mucus (NONE SEEN) RARE Lab Statement Laboratory studies reviewed and considered in e medical decision-making. Re-Evaluation MDM Free Text MDM Notes Free Text MDM Notes heart tones 130's. Patient awaiting pregna ncy US at time of admission. Re-Evaluation/Progress #1 Text/Dict Note Abd pain resolved. Appears comfortable lying in bed. Time of Re-Eval 0325 Re-Eval Status Improved ED Course Medication(s) Ordered Medication(s) Ordered: Central Nervous System Agents Sig/Snehal Start time Last Medication Dose Route Stop Time Status Admin Acetaminophen 650 MG Q4H PRN PRN 08/05 0330 AC PO 08/06 0323 Electrolytic, Caloric, And Varinder Sig/Snehal Start time Last Medication Dose Route Stop Time Status Admin Potassium Chloride 20 MEQ X1ED STA 08/05 0159 D C 08/05 PO 08/05 200 0208 Sodium Chloride 1,000 ML X1ED STA 08/05 0159 DC 08/05 IV 08/05 200 0207 Gastrointestinal Drugs Sig/Snehal Start time Last Medication Dose Route Stop Time Status Admin Ondansetron HCl 4 MG Q6H PRN PRN 08/05 0330 AC IV 08/06 032 Patient Discharge Departure Vital Signs/Condition Vital Signs First Documented: Result Date Time Pulse Ox 100 08/05 005 B/P 121/81 08/05 56 B/P Mean 94 08/05 56 O2 Delivery Room air 08/05 56 Temp 98.4 08/05 56 Pulse 90 08/05 56 Resp 18 08/05 56 Last Documented: Result Date Time Pulse Ox 100 08/05 021 B/P 109/66 08/05 211 B/P Mean 80 08/05 211 Pulse 90 08/05 211 Resp 18 08/05 211 O2 Delivery Room air 08/05 56 Temp 98.4 08/05 56 All vital signs available at the time of this en try have been reviewed. Condition Stable, Improved Clinical Impression Clinical Impression Primary Impression: Hyperglycemia Secondary Impressions: Second trimester pregnanc y Time of Impression 320 Disposition Decision Admit Admit Physician Name Natalie Corrales MD Admit Physician [employer], Group Social Worker Physician Request Time 321 Request Date 08/05/20 )( Admission Accepts accepted by Dr. Wesley on behalf of Dr. Corrales )( Accepted Time 321 )( Accepted Date 08/05/20 Call Information agrees with eval, agrees with plan Discharge/Care Plan Counseled Regarding Diagnosis, Lab results, Need for admission Referrals No Primary or Family Physician (PCP) Admit Note I have spoken with the patie nt and/or caregivers. I have explained the patient's condition, diagnoses and jose atment plan based on the information available to me at this time. I have answered the patient's and/ or caregiver's questions and addressed any concerns. The patient and/or careg thomas have as good an understanding of the patient 's diagnosis, condition and treatment plan as can be expected at this point. The patient has been stabilized within the capability of the emergency department. The patient wi ll be transported for further care and management or will be moved to an observation or inpatient service. I have communicated with the staff or medical p dionier taking over this patient's care. at 0339 RPT #:[id number] END OF REPORT
[2023-04-21] MEDS ORDERED: NA CHLORIDE 0.9% 2,000 ML ONE (18:21)
[2023-04-21 18:34] LABS: Absolute Lymphocytes (CBC) 1.2 K/uL (0.7-4.9); Hematocrit 47.1 % (36.0-45.0); Lymphocytes % 8.7 % (15.3-44.8); MPV 7.2 fL (7.6-11.3); RBC Red Blood Cell Count 5.29 M/uL (3.86-4.86)
[2023-04-21 18:37] LABS: Protime INR 0.93
[2023-04-21 18:39] LABS: Specific Gravity 1.025 (1.005-1.030); Urine Bacteria None Seen /HPF (<20); Urine Bilirubin NEGATIVE (Negative); Urine Blood 1+ (Negative); Urine Clarity Clear (Clear); Urine Color Colorless (Yellow); Urine Glucose 4+ (Over) (Negative); Urine Mucus Slight /HPF (None Seen); Urine Protein 1+ (Negative); Urine RBC <5 /HPF (None Seen); Urine Urobilinogen Normal (Normal)
[2023-04-21] MEDS ORDERED: ACETAMINOPHEN 500 MG TAB ONE (18:39)
[2023-04-21] MEDS ORDERED: ONDANSETRON 4 MG/2 ML VIAL ONE (18:39)
--- NOTE | 2023-04-21 18:39 | RAD REPORT ---
EXAM DESCRIPTION: RADChest Single View04/21/2023 6:02 pm CLINICAL HISTORY: COUGH COMPARISON: Chest Single View dated 03/09/2023; Chest Single View dated 01/10/2023; Chest Single View d ated 04/09/2021; Chest Single View dated 02/28/2021 TECHNIQUE: Portable AP view of the chest. FINDINGS: The lungs are clear. No pneumothorax or effusion. The cardiomediastinal contours are unre markable. IMPRESSION: No acute cardiopulmonary process.
[2023-04-21 18:48] LABS: Arterial Blood Carboxyhemoglob 1.3 % (0-1.5); Blood O2 Saturation 97.7 % (92-98.5)
[2023-04-21 19:03] LABS: ALT/SGPT 31 U/L (13-56); AST/SGOT 16 U/L (15-37); Albumin 4.3 g/dL (3.4-5.0); Alkaline Phosphatase 147 U/L (45-117); BUN Blood Urea Nitrogen 16 mg/dL (7-18); Bicarbonate 11 mEq/L (21-32); Bilirubin Total 0.6 mg/dL (0.2-1.0); Glomerular Filtration Rate 63 ml/min (=/>90); Glucose Level 371 mg/dL (74-106); NT PRO-BNP 61 pg/mL (<125); Potassium 3.5 mEq/L (3.5-5.1); Protein, Total 9.1 g/dL (6.4-8.2); Sodium Level 132 mEq/L (136-145)
[2023-04-21 19:04] LABS: Bilirubin Direct < 0.1 mg/dL (0-0.2); Bilirubin Indirect, Calculated ND mg/dL (0.2-0.8)
--- NOTE | 2023-04-21 19:04 | EDPHYS ---
Physician Documentation [facility] Name: Rosalie Parekh Age: 27 yrs Sex: Female : 1995 Arrival Date: 04/21/2023 Time: 17:40 Bed 16 Private MD: ED Physician Ralph Silva HPI: 04/21 18:54 This 27 yrs old Female presents to ER via EMS with complaints of High Blood wanda Sugar. 18:54 The patient or guardian reports hyperglycemia. Onset: The symptoms/episode wanda began/occurred 2 day(s) ago. Associated signs and symptoms: Pertinent positives: nausea. Current symptoms: In the emergency department the patient's symptoms have improved, mildly. The patient has experienced similar episodes in the past. Historical: - Allergies: 17:43 No Known Allergies; bp - Home Meds: 17:43 Novolog subcutaneous Sub-Q [Active]; bp - PMHx: 17:43 diabetes mellitus; Anxiety; bp - Immunization history:: Adult Immunizations unknown. - Social history:: Smoking status: unknown. ROS: 18:57 Constitutional: Negative for fever, chills, and weight loss, Eyes: Negative for injury, wanda pain, redness, and discharge, ENT: Negative for injury, pain, and discharge, Neck: Negative for injury, pain, and swelling, Cardiovascular: Negative for chest pain, palpitations, and edema, Respiratory: Negative for shortness of breath, cough, wheezing, and pleuritic chest pain, Back: Negative for injury and pain, : Negative for injury, bleeding, discharge, and swelling, MS/Extremity: Negative for injury and deformity, Skin: Negative for injury, rash, and discoloration, Neuro: Negative for headache, weakness, numbness, tingling, and seizure, Psych: Negative for depression, anxiety, suicide ideation, homicidal ideation, and hallucinations, Allergy/Immunology: Negative for hives, rash, and allergies, Endocrine: Negative for neck swelling, polydipsia, polyuria, polyphagia, and marked weight changes, Hematologic/Lymphatic: Negative for swollen nodes, abnormal bleeding, and unusual bruising. 18:57 Abdomen/GI: Positive for abdominal pain, nausea and vomiting, vomiting. Exam: 18:57 Constitutional: This is a well developed, well nourished patient who is awake, alert, wanda and in no acute distress. Head/Face: Normocephalic, atraumatic. Eyes: Pupils equal round and reactive to light, extra-ocular motions intact. Lids and lashes normal. Conjunctiva and sclera are non-icteric and not injected. Cornea within normal limits. Periorbital areas with no swelling, redness, or edema. ENT: Nares patent. No nasal discharge, no septal abnormalities noted. Tympanic membranes are normal and external auditory canals are clear. Oropharynx with no redness, swelling, or masses, exudates, or evidence of obstruction, uvula midline. Mucous membranes moist. Neck: Trachea midline, no thyromegaly or masses palpated, and no cervical lymphadenopathy. Supple, full range of motion without nuchal rigidity, or vertebral point tenderness. No Meningismus. Chest/axilla: Normal chest wall appearance and motion. Nontender with no deformity. No lesions are appreciated. Cardiovascular: Regular rate and rhythm with a normal S1 and S2. No gallops, murmurs, or rubs. Normal PMI, no JVD. No pulse deficits. Respiratory: Lungs have equal breath sounds bilaterally, clear to auscultation and percussion. No rales, rhonchi or wheezes noted. No increased work of breathing, no retractions or nasal flaring. Abdomen/GI: Soft, non-tender, with normal bowel sounds. No distension or tympany. No guarding or rebound. No evidence of tenderness throughout. Back: No spinal tenderness. No costovertebral tenderness. Full range of motion. Skin: Warm, dry with normal turgor. Normal color with no rashes, no lesions, and no evidence of cellulitis. MS/ Extremity: Pulses equal, no cyanosis. Neurovascular intact. Full, normal range of motion. Neuro: Awake and alert, GCS 15, oriented to person, place, time, and situation. Cranial nerves II-XII grossly intact. Motor strength 5/5 in all extremities. Sensory grossly intact. Cerebellar exam normal. Normal gait. Psych: Awake, alert, with orientation to person, place and time. Behavior, mood, and affect are within normal limits. 18:57 ECG was reviewed by the Attending Physician. Vital Signs: 17:42 BP 105 / 65; Pulse 91; Resp 18; Temp 98; Pulse Ox 99% ; bp 17:51 BP 125 / 79; Pulse 70; Resp 18; Temp 97.6; Pulse Ox 98% on R/A; rs5 18:47 BP 108 / 65; Pulse 98; Resp 16; Pulse Ox 100% ; bp 19:30 BP 102 / 58; Pulse 85; Resp 16; Pulse Ox 100% on R/A; jb4 20:30 BP 112 / 62; Pulse 82; Resp 16; Pulse Ox 100% on R/A; jb4 MDM: 17:43 Patient medically screened. wanda 18:59 Differential diagnosis: diabetes insipidus, DKA. Data reviewed: vital signs, nurses wanda notes, lab test result(s), EKG, radiologic studies, plain films. Consideration of Admission/Observation Patient was admitted/placed on observation. Escalation of care including admission/observation considered. I considered the following discharge prescriptions or medication management in the emergency department Medications were administered in the Emergency Department. See MAR. Test considered but Not performed: CT: NO CT ABD/PELVIS. Historians other than the Patient: Parent: MOM. Care significantly affected by the following chronic conditions: Diabetes, ANXIETY. Counseling: I had a detailed discussion with the patient and/or guardian regarding: the historical points, exam findings, and any diagnostic results supporting the discharge/admit diagnosis, lab results, radiology results, the need for further work-up and treatment in the hospital. 04/21 17:44 Order name: Basic Metabolic Panel; Complete Time: 19:08 04/21 17:44 Order name: CBC with Diff; Complete Time: 18:53 04/21 17:44 Order name: LFT's; Complete Time: 19:08 04/21 17:44 Order name: Magnesium; Complete Time: 19:08 04/21 17:44 Order name: NT PRO-BNP; Complete Time: 19:08 04/21 17:44 Order name: PT-INR; Complete Time: 18:53 04/21 17:44 Order name: Troponin HS; Complete Time: 19:08 04/21 17:44 Order name: Ketone, Serum; Complete Time: 18:53 04/21 17:44 Order name: ABG; Complete Time: 19:30 04/21 17:44 Order name: Urinalysis w/ reflexes; Complete Time: 18:53 04/21 17:44 Order name: PREGU; Complete Time: 18:53 04/21 20:26 Order name: Glucose, Ancillary Testing [facility] 04/21 21:38 Order name: Glucose, Ancillary Testing [facility] 04/21 17:44 Order name: XRAY Chest (1 view); Complete Time: 18:53 [facility] 04/21 17:44 Order name: EKG; Complete Time: 17:45 [facility] 04/21 17:44 Order name: Cardiac monitoring; Complete Time: 17:45 [facility] 04/21 17:44 Order name: EKG - Nurse/Tech; Complete Time: 18:13 [facility] 04/21 17:44 Order name: IV Saline Lock; Complete Time: 18:26 [facility] 04/21 17:44 Order name: Labs collected and sent; Complete Time: 18:26 [facility] 04/21 17:44 Order name: O2 Per Protocol; Complete Time: 17:45 [facility] 04/21 17:44 Order name: O2 Sat Monitoring; Complete Time: 17:45 [facility] EC:57 Rate is 92 beats/min. Rhythm is regular. QRS [place] is Normal. [place] interval is normal. QRS wanda interval is normal. QT interval is normal. No Q waves. T waves are Normal. No ST changes noted. Clinical impression: Normal ECG and No evidence of ischemia. Interpreted by me. Reviewed by me. Administered Medications: 18:26 Drug: NS 0.9% IV 1000 ml Route: IV; Rate: 1 bolus; Site: left antecubital; bp 18:26 Drug: NS 0.9% IV 1000 ml Route: IV; Rate: 1 bolus; Site: left antecubital; bp 18:42 Drug: Ondansetron IVP 4 mg Route: IVP; Site: left antecubital; bp 18:42 Drug: Acetaminophen PO 1000 mg Route: PO; bp 19:34 Drug: NS 0.9% IV 1000 ml Route: IV; Rate: 1 bolus; Site: left antecubital; jb4 20:30 Follow up: Response: No adverse reaction; IV Status: Completed infusion; IV Intake: jb4 1000ml 19:34 Drug: Famotidine IVP 20 mg Route: IVP; Site: left antecubital; jb4 20:00 Follow up: Response: No adverse reaction jb4 20:46 Not Given (Other Intervention Used): NS 0.9% IV 1000 ml IV at 125 ml/hr continuous jb4 20:47 Drug: Insulin Drip - (Insulin Regular Human IVP 100 units, NS 0.9% IV 100 ml) lg3 {Co-Signature: jb4 (Estrada Chen RN).} Route: IV; Rate: 4 units/hr; Site: left hand; 21:45 Follow up: Response: No adverse reaction; Rate change 2 units/hr; IV Status: Infusion jb4 continued upon admission 20:47 Drug: D5-1/2 NS IV 1000 ml Route: IV; Rate: 150 ml/hr; Site: left antecubital; jb4 21:54 Follow up: IV Status: Infusion continued upon admission jb4 Disposition Summary: 04/21/23 19:03 Hospitalization Ordered Hospitalization Status: Inpatient Admission wanda Provider: Destin Hernandez cha Location: Intensive Care Unit wanda Condition: Stable wanda Problem: new wanda Symptoms: have improved wanda Bed/Room Type: [facility] Room Assignment: 8-(04/21/23 20:12) Diagnosis - Vomiting wanda - Diabetes mellitus due to underlying condition with ketoacidosis without coma wanda Forms: - Medication Reconciliation Form wanda - SBAR form wanda Critical care time excluding procedures: 19:00 Critical care time: Bedside Care: 15 minutes, Consultation: 10 minutes, Family wanda Intervention: 5 minutes. Total time: 30 minutes Signatures: Dispatcher [employer] EDMS Malaika Ashby RN RN mw Anderson, Corey, MD MD cha Attema, Lee, SENIOR MILITARY ANALYST-C SENIOR MILITARY ANALYST-Cla1 Estrada Chen, RN RN jb4 Mauricio Gill RN RN bp Gibson, Lacie, RN RN lg3 Estrada Chen RN jb4 Corrections: (The following items were deleted from the chart) 20:12 19:03 wanda mijares
--- NOTE | 2023-04-21 19:04 | ER ---
Nurse's Notes [facility] Name: Rosalie Parekh Age: 27 yrs Sex: Female : 1995 Arrival Date: 04/21/2023 Time: 17:40 Bed 16 Private MD: Diagnosis: Vomiting;Diabetes mellitus due to underlying condition with ketoacidosis without coma Presentation: 04/21 17:42 Chief complaint: EMS states: HYPERGLYCEMIA 2/2 ANXIETY ATTACK. Coronavirus screen: At bp this time, the client does not indicate any symptoms associated with coronavirus-19. Ebola Screen: No symptoms or risks identified at this time. Initial Sepsis Screen: Does the patient meet any 2 criteria? No. Patient's initial sepsis screen is negative. Does the patient have a suspected source of infection? No. Patient's initial sepsis screen is negative. Risk Assessment: Do you want to hurt yourself or someone else? Patient reports no desire to harm self or others. Onset of symptoms is unknown. Care prior to arrival: Glucose check: 450. 17:42 Method Of Arrival: EMS: [facility] bp 17:42 Acuity: TANYA 3 bp Triage Assessment: 17:43 General: Appears in no apparent distress. Behavior is cooperative, appropriate for age, bp anxious. Pain: Denies pain. EENT: No deficits noted. Neuro: No deficits noted. Cardiovascular: No deficits noted. Respiratory: No deficits noted. GI: Reports POLYDIPSIA. : Reports urinary frequency. Derm: No deficits noted. Musculoskeletal: No deficits noted. Historical: - Allergies: 17:43 No Known Allergies; bp - Home Meds: 17:43 Novolog subcutaneous Sub-Q [Active]; bp - PMHx: 17:43 diabetes mellitus; Anxiety; bp - Immunization history:: Adult Immunizations unknown. - Social history:: Smoking status: unknown. Screenin:44 [facility] ED Fall Risk Assessment (Adult) History of falling in the last 3 months, bp including since admission No falls in past 3 months (0 pts). Abuse screen: Denies threats or abuse. Denies injuries from another. Nutritional screening: No deficits noted. Tuberculosis screening: No symptoms or risk factors identified. Assessment: 17:44 General: SEE TRIAGE NOTE. bp 18:47 Reassessment: Patient appears in no apparent distress at this time. Patient is alert, bp oriented x 3, equal unlabored respirations, skin warm/dry/pink. 19:15 Reassessment: Patient appears in no apparent distress at this time. Patient and/or jb4 family updated on plan of care and expected duration. Pain level reassessed. Patient is alert, oriented x 3, equal unlabored respirations, skin warm/dry/pink. 20:15 Reassessment: Patient appears in no apparent distress at this time. Patient and/or jb4 family updated on plan of care and expected duration. Pain level reassessed. Patient is alert, oriented x 3, equal unlabored respirations, skin warm/dry/pink. 20:52 Reassessment: Patient appears in no apparent distress at this time. Patient and/or jb4 family updated on plan of care and expected duration. Pain level reassessed. Patient is alert, oriented x 3, equal unlabored respirations, skin warm/dry/pink. Vital Signs: 17:42 BP 105 / 65; Pulse 91; Resp 18; Temp 98; Pulse Ox 99% ; bp 17:51 BP 125 / 79; Pulse 70; Resp 18; Temp 97.6; Pulse Ox 98% on R/A; rs5 18:47 BP 108 / 65; Pulse 98; Resp 16; Pulse Ox 100% ; bp 19:30 BP 102 / 58; Pulse 85; Resp 16; Pulse Ox 100% on R/A; jb4 20:30 BP 112 / 62; Pulse 82; Resp 16; Pulse Ox 100% on R/A; jb4 ED Course: 17:41 Patient arrived in ED. bp 17:43 Triage completed. bp 17:43 Ralph Silva MD is Attending Physician. wanda 17:43 Arm band placed on. bp 17:44 Mauricio Gill, RN is Primary Nurse. bp 17:44 Patient has correct armband on for positive identification. Bed in low position. Call bp light in reach. Side rails up X2. 18:00 Inserted saline lock: 22 gauge in left antecubital area, using aseptic technique. Blood bp collected. 18:04 XRAY Chest (1 view) In Process Unspecified. EDMS 19:02 Destin Hernandez MD is Hospitalizing Provider. wanda 21:48 No provider procedures requiring assistance completed. Patient admitted, IV remains in jb4 place. Administered Medications: 18:26 Drug: NS 0.9% IV 1000 ml Route: IV; Rate: 1 bolus; Site: left antecubital; bp 18:26 Drug: NS 0.9% IV 1000 ml Route: IV; Rate: 1 bolus; Site: left antecubital; bp 18:42 Drug: Ondansetron IVP 4 mg Route: IVP; Site: left antecubital; bp 18:42 Drug: Acetaminophen PO 1000 mg Route: PO; bp 19:34 Drug: NS 0.9% IV 1000 ml Route: IV; Rate: 1 bolus; Site: left antecubital; jb4 20:30 Follow up: Response: No adverse reaction; IV Status: Completed infusion; IV Intake: jb4 1000ml 19:34 Drug: Famotidine IVP 20 mg Route: IVP; Site: left antecubital; jb4 20:00 Follow up: Response: No adverse reaction jb4 20:46 Not Given (Other Intervention Used): NS 0.9% IV 1000 ml IV at 125 ml/hr continuous jb4 20:47 Drug: Insulin Drip - (Insulin Regular Human IVP 100 units, NS 0.9% IV 100 ml) lg3 {Co-Signature: víctor (Estrada Chen RN).} Route: IV; Rate: 4 units/hr; Site: left hand; 21:45 Follow up: Response: No adverse reaction; Rate change 2 units/hr; IV Status: Infusion jb4 continued upon admission 20:47 Drug: D5-1/2 NS IV 1000 ml Route: IV; Rate: 150 ml/hr; Site: left antecubital; jb4 21:54 Follow up: IV Status: Infusion continued upon admission jb4 Medication: 17:44 VIS not applicable for this client. bp Intake: 20:30 IV: 1000ml; Total: 1000ml. jb4 Outcome: 19:03 Decision to Hospitalize by Provider. wanda 21:48 Admitted to ICU accompanied by nurse, via stretcher, room 8, on monitor, with chart, jb4 Report called to MURTAZA Sung 21:48 Condition: stable 21:48 Discharge instructions given to patient, Instructed on the need for admit, Demonstrated understanding of instructions. 21:51 Patient left the ED. jb4 Signatures: Dispatcher [employer] Ralph Yoder MD MD cha Bryson, James, RN RN jb4 Peltier, Brian, RN RN bp Gibson, Lacie, RN RN lg3 Hank Teresa rs5 Estrada Chen RN jb4
[2023-04-21 19:05] LABS: Troponin High Sensitivity < 3.0 pg/mL (<58.9)
[2023-04-21] MEDS ORDERED: NA CHLORIDE 0.9% 1,000 ML ONE (19:25)
[2023-04-21] MEDS ORDERED: FAMOTIDINE 20 MG/2 ML VIAL IV ONE (19:25)
[2023-04-21] MEDS ORDERED: NA CHLORIDE 0.9% 0 ML ONE (19:25)
[2023-04-21] MEDS ORDERED: INSULIN -REGULAR HUMAN 50 UNIT/0.5 ML ML ONE ×2 (19:25→19:57)
[2023-04-21] MEDS ORDERED: NA CHLORIDE 0.9% 100 ML ONE (19:47)
--- NOTE | 2023-04-21 20:23 | P.HP ---
Certification for Inpatient Patient admitted to: Observation With expected LOS: <2 Midnights Patient will require the following post-hospital care: None Practitioner: I am a practitioner with admitting privileges, knowledge of patient current condition, hospital course, and medical plan of care. Services: Services provided to patient in accordance with Admission requirements found in Title 42 Section 412.3 of the Code of Federal Regulations Patient History Date of Service: 04/21/23 Reason for admission: DKA History of Present Illness: 27-year-old female with history of insulin-dependent diabetes/type 1 diabetes presents the emergency department with chief complaint of high blood sugar. She noted that her blood sugar began reading high primarily today although it was elevated in the 200s yesterday. She has been compliant with her home dose of long-acting insulin although she did not take it this morning. She is on Levemir 24 units twice daily in addition to sliding scale insulin. Her mobile unit assistant is Dr. Castle at [facility] who she has not seen in "a while". She does endorse 1 episode of vomiting prior to arrival to the hospital, she is currently feeling much better. Her labs are significant for pH of 7.28 PCO2 18.7 HCO3 8.5 sodium 132 glucose 371 anion gap 21.5 with also count 13.7 hemoglobin 15.5 hematocrit 47.1 in the emergency department she was started on an insulin drip, ED provider wishes to admit for further evaluation and management of DKA. Patient denies any other symptoms including fever, chills abdominal pain etc. Allergies No Known Allergies Allergy (Verified 09/29/22 00:31) Home Medications: Insulin Detemir [Levemir Flexpen] 24 unit SQ BID #30 ml 01/10/23 Insulin Aspart [Novolog Flexpen] See Protocol SQ SEECOM 03/10/23 - Past Medical/Surgical History Diabetic: Yes -: Diabetes mellitus type 1 -: C section Psychosocial/ Personal History: Patient lives at home with family - Family History Mother -: Diabetes - Social History Smoking Status: Current every day smoker (Vape) Alcohol use: Yes CD- Drugs: No Caffeine use: Yes Place of Residence: Home Review of Systems 10-point ROS is otherwise unremarkable Gastrointestinal: Nausea Physical Examination - Physical Exam General: Alert, In no apparent distress, Oriented x3 HEENT: Atraumatic, PERRLA, Mucous membr. moist/pink, EOMI, Sclerae nonicteric Neck: Supple, 2+ carotid pulse no bruit, No LAD Respiratory: Clear to auscultation bilaterally, Normal air movement Cardiovascular: Regular rate/rhythm, Normal S1 S2 Gastrointestinal: Non-distended Musculoskeletal: No tenderness Integumentary: No rashes Neurological: Normal speech, Normal strength at 5/5 x4 extr, Normal tone, Normal affect - Studies Laboratory Data (last 24 hrs) 04/21/23 18:20: PT 10.2, INR 0.93 04/21/23 18:20: WBC 13.70 H, Hgb 15.5 H, Hct 47.1 H, Plt Count 527 H 04/21/23 18:20: Sodium 132 L, Potassium 3.5, BUN 16, Creatinine 1.20 H, Glucose 371 H, Magnesium 2.0, Total Bilirubin 0.6, AST 16, ALT 31, Alkaline Phosphatase 147 H Assessment and Plan - Plan Assessment: Diabetes mellitus type 1 with ketoacidosis Plan: Diabetes mellitus type 1 with ketoacidosis Continue insulin drip, every 4 BMP until anion gap is closed and patient is tolerating p.o. Will be admitted to the ICU for now. Patient reports she has been compliant with her home regimen of insulin although she has not followed up with her mobile unit assistant and "a while". A1c was checked approximately 1 month ago and was elevated at 13.4. DVT PPX: Lovenox Code status: Full Discharge Plan: Home Plan to discharge in: 24 Hours - Advance Directives Does patient have a Living Will: No Does patient have a Durable POA for Healthcare: No - Code Status/Comfort Care Code Status Assessed: Yes (Full code) Critical Care: No Time Spent Managing Pts Care (In Minutes): 55
[2023-04-21] MEDS ORDERED: D5 0.45 NS 1,000 ML IV ONE (20:28)
[2023-04-21] MEDS ORDERED: D5 0.45 NS 1,000 ML IV SCH (21:34)
[2023-04-21] MEDS ORDERED: ONDANSETRON 4 MG/2 ML VIAL IV PRN (21:34)
[2023-04-21] MEDS ORDERED: NACHLORIDE 0.45% 1,000 ML IV SCH (21:34)
[2023-04-21] MEDS ORDERED: INSULIN -REGULAR HUMAN 100 UNIT in NA CHLORIDE 0.9% 100 ML IV SCH (21:34)
[2023-04-21 21:50] VITALS: BMI 27.8
[2023-04-21 22:00] VITALS: O2SAT 100
[2023-04-21 23:27] LABS: Potassium 3.2 mEq/L (3.5-5.1)
[2023-04-22 03:40] LABS: Absolute Lymphocytes (CBC) 3.3 K/uL (0.7-4.9); MCV 87.1 fL (80-100); MPV 7.1 fL (7.6-11.3); RBC Red Blood Cell Count 4.02 M/uL (3.86-4.86)
[2023-04-22 03:45] LABS: Potassium 3.5 mEq/L (3.5-5.1)
[2023-04-22 03:48] LABS: Magnesium 1.6 mg/dL (1.6-2.4); Phosphorus 2.3 mg/dL (2.5-4.9)
[2023-04-22] MEDS ORDERED: GLUCAGON 1 MG/VIAL IM PRN ×2 (03:55→09:30)
[2023-04-22] MEDS ORDERED: D50W 25 GM/50 ML SYRINGE IV PRN ×2 (03:55→09:30)
[2023-04-22] MEDS ORDERED: D10W 125 ML IV PRN (03:59)
[2023-04-22] MEDS ORDERED: Ringers Lactate 1,000 ML IV SCH (04:00)
[2023-04-22] MEDS: INSULIN GLARGINE 100 UNIT/ML SQ SCH ×2 (04:06→08:09)
[2023-04-22] MEDS ORDERED: MAGNESIUM SULFATE 1 gm IVPB 1 GM/100 ML BAG IV ONE (04:36)
[2023-04-22] MEDS ORDERED: POTASSIUM PHOS IN 0.9 % NACL 15 MMOL/250 ML BAG IV ONE (04:37)
[2023-04-22] MEDS ORDERED: INSULIN -REGULAR HUMAN 50 UNIT/0.5 ML ML SQ SCH (07:30)
[2023-04-22] MEDS ORDERED: ACETAMINOPHEN 325 MG TABLET PO PRN (08:29)
[2023-04-22 08:30] LABS: Potassium 3.9 mEq/L (3.5-5.1)
[2023-04-22] MEDS ORDERED: ENOXAPARIN 40 MG/0.4 ML SQ SCH (09:00)
[2023-04-22] MEDS ORDERED: INSULIN -REGULAR HUMAN 100 UNIT in NA CHLORIDE 0.9% 100 ML IV SCH (09:30)
--- NOTE | 2023-04-22 10:19 | P.DS ---
Admission Date: 04/21/23 Discharge Date: 04/22/23 Disposition: AMA-LEFT AGAINST MEDICAL ADVIC Discharge Condition: FAIR Reason for Admission: DKA Hospital Course: DIAGNOSES: # Diabetic Ketoacidosis in Type I Diabetes Mellitus due to Medication Noncompliance # KDIGO Stage I Acute Kidney Injury - Pre-Renal due to DKA (resolved) # SIRS Criteria (Tachycardia, Leukocytosis) due to DKA - no evidence of infection (resolved) # Hyponatremia secondary to Hyperglycemia HOSPITAL COURSE: Ms. Celia Parekh is a 27 year old female with a past medical history significant for type I diabetes mellitus who was admitted to the [facility] on 04/21/2023 for diabetic ketoacidosis. She was admitted to the Medicine service. Upon further evaluation, she reported that she had missed yesterday's dose of insulin. She was found to have diabetic ketoacidosis. She was admitted to the ICU and started on DKA protocol with IV fluids and an insulin drip. Her insulin drip had been titrated off, but serial BMPs would reveal that her CO2 would worsen and her anion gap would re-open. I advised that we restart the insulin drip and resume DKA protocol. However, Ms. Parekh stated that she is not interested in staying for treatment and would like to leave against medical advice. I explained the pathophysiology of diabetic ketoacidosis and the risks of premature discharge, including worsening condition and . She verbalized understanding and stated that she accepts this risk. I advised that she schedule a follow-up appointment with her PCP and with Dr. Abraham [facility]) as soon as possible. She verbalized understanding. Two RN witnesses (MURTAZA Smith and MURTAZA Pretty) present for AMA discussion. Based on her ability to understand her disease process, understand the consequences of not pursuing therapy, communicate that she would like to be discharged, and her ability to explain her rationale for being discharged, we believe that she has medical decision making capacity. She was discharged with instructions to schedule follow-up appointments with her PCP and with her Sample Maker Hand (Dr. Abraham). She was given the opportunity to ask questions and reported no further questions. Furthermore, all questions were answered to the best of my ability. A copy of this discharge summary will be sent to the above providers to facilitate continuity of care. Today, I personally spent 25 minutes on her case, of which greater than 50% of the time was spent in patient education, counseling, and coordination of care as described above. Vital Signs/Physical Exam: Temp Pulse Resp BP Pulse Ox 97.4 F 78 17 92/52 L 100 04/22/23 04:00 04/22/23 06:00 04/22/23 06:00 04/22/23 06:00 04/22/23 06:00 General: Alert, In no apparent distress, Oriented x3 HEENT: Atraumatic, Sclerae nonicteric Neck: JVD not distended Respiratory: Clear to auscultation bilaterally, Normal air movement Cardiovascular: No edema, Regular rate/rhythm, Normal S1 S2, No gallops, No rubs, No murmurs Gastrointestinal: Normal bowel sounds, Soft and benign, Non-distended, No tenderness Musculoskeletal: No clubbing Integumentary: No rashes Neurological: Normal speech, Normal affect Laboratory Data at Discharge: WBC 8.80 thou/uL (4.3-10.9) 04/22/23 02:50 Hgb 11.6 g/dL (12.0-15.0) L D 04/22/23 02:50 Hct 35.0 % (36.0-45.0) L 04/22/23 02:50 Plt Count 388 thou/uL (152-406) D 04/22/23 02:50 PT 10.2 SECONDS (9.5-12.5) 04/21/23 18:20 INR 0.93 04/21/23 18:20 Sodium 135 mEq/L (136-145) L 04/22/23 07:18 Potassium 3.9 mEq/L (3.5-5.1) 04/22/23 07:18 BUN 7 mg/dL (7-18) 04/22/23 07:18 Creatinine 0.74 mg/dL (0.55-1.02) 04/22/23 07:18 Glucose 387 mg/dL (74-106) H 04/22/23 07:18 Phosphorus 2.3 mg/dL (2.5-4.9) L 04/22/23 02:50 Magnesium 1.6 mg/dL (1.6-2.4) 04/22/23 02:50 Total Bilirubin 0.6 mg/dL (0.2-1.0) 04/21/23 18:20 AST 16 U/L (15-37) 04/21/23 18:20 ALT 31 U/L (13-56) 04/21/23 18:20 Alkaline Phosphatase 147 U/L (45-117) H 04/21/23 18:20 Triglycerides 194 mg/dL (<150) H 04/22/23 02:50 Cholesterol 180 mg/dL (<200) 04/22/23 02:50 HDL Cholesterol 41 mg/dL (40-60) 04/22/23 02:50 Cholesterol/HDL Ratio 4.39 04/22/23 02:50 Home Medications: Insulin Aspart [Novolog Flexpen] See Protocol SQ SEECOM 03/10/23 Insulin Degludec [Tresiba] 24 unit SQ BID 04/21/23 Physician Discharge Instructions: 1. Please call and schedule a follow-up appointment with your PCP as soon as possible 2. Please call and schedule a follow-up appointment with Endocrinology (Dr. Abraham) as soon as possible - Please make sure you are not missing doses of your insulin - Please make sure you schedule a yearly eye exam, foot exam, and urine microalbumin study to monitor your diabetes Diet: ADA Activity: Fall precautions Followup: NONE,NONE [Primary Care Provider] - Constanza Abraham MD [OUTSIDE PHYSICIAN] - Time spent managing pt's care (in minutes): 25
[2023-04-22 11:07] VITALS: TEMP 96.8
[2023-04-22 11:09] VITALS: BP 112/69
--- NOTE | 2023-04-23 19:15 | EKG ---
Test Date: 2023-04-21 Test Time: 18:07:34 Water Hydrant Installer: ABHAY MEASUREMENT RESULTS: Intervals: Rate: 92 IN: 164 QRSD: 80 QT: 358 QTc: 442 [place]: P: 76 IN: 164 QRS: 77 T: 96 INTERPRETIVE STATEMENTS: Normal sinus rhythm Right atrial enlargement Nonspecific ST and T wave abnormality Abnormal ECG Compared to ECG 03/09/2023 19:19:07 ST (T wave) deviation now present Electronically Signed On 04-23-23 19:11:00 CDT by Eduard Landin
== END 2023-04-22 10:30 | disposition left against medical advice (07) ==
LOC: ER 17:40 → ERHOLD 20:06 → 3RD-ICU 21:08
PROVIDERS: ADMIT Internal Medicine; ATTEND Internal Medicine
DX: E10.10 Type 1 diabetes mellitus with ketoacidosis without coma (principal); E10.65 Type 1 diabetes mellitus with hyperglycemia; F17.290 Nicotine dependence, other tobacco product, uncomplicated; N17.9 Acute kidney failure, unspecified; E87.1 Hypo-osmolality and hyponatremia; Z91.148 Patient's other noncompliance with medication regimen for other reason
CPT/HCPCS: 96365; 96361; 93005; 85025 ×2; 81001; 80048 ×4; 36415; 82010; 83735 ×2; 81025; 84100; 85610; 80061; 82947 ×10; 80076; 84484; 83880; 71045; 82805; 96375; 99285; J1815 ×3; J3475; J1650; J2405; J7799; J7120; J7030 ×2; G0378

== ENCOUNTER 2023-07-11 20:30 | Inpatient (IN) | payer OTHER ==
--- OUTSIDE RECORDS SUMMARY | 2023-07-11 20:39 | XMS REPORT | Continuity of Care Document ---
:1995 Author Organization [facility] t Address [address] [address] [facility] [address] [place] [address] Care Team Providers Name Role Phone Pcp, Patient Does Not Have A Primary Care Physician [id number] ANSELMO FIGUEROA Attending Clinician Unavailable ANSELMO FIGUEROA Attending Clinician Unavailable Natalie Corrales Attending Clinician Unavailable BEATRIZ WINTERS Attending Clinician Unavailable Harika Pineda Attending Clinician Cindy, Neptali - Jurgen Attending Clinician Unavailable HARIKA CASTELLON Attending Clinician Unavailable Beatriz Winters MD Attending Clinician Doctor Unassigned, Robbins Attending Clinician Unavailable CASIE BRUNO Attending Clinician Unavaila ANSELMO Benavides Admitting Clinician Unavailable Natalie Corrales Admitting Clinician Unavailable CASIE BRUNO Admitting Clinician Unavailclaude moon Payers Payer Name Policy Type Policy Number Effective Date Expiration Date Jared GOMES O [id number] 2018 00:00:00 Problems Condition Condition Condition Status Onset Resolution Last Treating Co mments Source Name Details Category Date Date Treatment Clinician Date 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 1 8 ity of diabetes diabetes 00:00: [place] mellitus mellitus 00 Medica l with with Branch hyperglyce hyperglyce digna digna Noncomplia Noncomplia Disease Active U nivers nce nce 8 ity of 00:00: [address] DKA DKA Disease Active Univers (diabetic (diabetic 06-03 ity of [place] es[place] 00 Medical Branch Diabetic Diabetic Disease Recurre 2017-[address] [facility] ketoacidos ketoacidos nce 0-17 Gisela kes is with is with 00:00: Medical coma coma 00 Center Acute Acute Disease Active 2017-[address] [facility] [address] metabolic metabolic 0-16 [facility] s encephalop encephalop 00:00: Ar dical athy athy 00 Center Allergies, Adverse Reactions, Alerts Allergy Allergy Status Severity Reaction(s) Onset Inactive Treating Comm ents Source Name Type Date Date Clinician No Known DA Active U [facility] [place] 00:[facility]: [address] No Known DA Active U [facility] [place] 00:[facility]: [address] No Known DA Active U 2019- [facility] [place] 00:[facility]: [address] No Known DA Active U 2019- [facility] [place] 00:[facility]: [address] No Known DA Active U 2019-1 [facility] [place] 00:[facility]: [address] No Known DA Active U 2020-1 [facility] [place] 00:[facility]: [address] NO KNOWN Drug Active Univers ALLERGIE Class ity of S [facility] Social History Social Habit Start Date Stop Date Quantity Comments Source Gender identity Universit y of [facility] Sexual orientation Univer sity of [facility] History of tobacco Current smoker Un iversity of use [facility] Alcohol intake 2023-05-26 2023-05-26 Current University of 00:00:00 00:00:00 non-drinker of [facility] alcohol Branch (finding) History of Social 2023-05-23 2023-05-23 Univers ity of function 00:00:00 00:00:00 [facility] Tobacco use and 2023-05-23 2023-05-23 Former smokeless Uni versity of exposure 00:00:00 00:00:00 tobacco user [facility] Tobacco Comment 2023-05-23 2023-05-23 half a pack a Univer sity of 00:00:00 00:00:00 day has not [facility] since found out Branch she is Exposure to 2022-06-01 2022-06-11 Not sure University SARS-CoV-2 (event) 00:00:00 11:35:00 [facility] Cigarettes smoked 2018-08-18 2018-08-18 [facility] current (pack per 00:00:00 00:00:00 Medical Center day) - Reported Sex Assigned At [birth year] [facility] 00:00:00 00:00:00 [facility] Smoking Status Start Date Stop Date Source Ex-smoker 2023-05-23 00:00:00 2023-05-23 00:00:00 [facility] Smokes tobacco daily 2018-08-18 00:00:00 [facility] Medications Ordered Filled Start Stop Current Ordering Indication Dosage Frequency Signature Comments Components Source Medication Medication Date Date Medication? Clinician (SIG) Name Name insulin Yes [id number] INJECT UP Univers aspart 7-24 TO 10 ity of U-100 00:00: UNITS [place] (NOVOLOG 00 UNDER THE Medica l FLEXPEN SKIN 3 Branch U-100 TIMES A INSULIN) DAY WITH A 100 unit/mL MEAL PER (3 mL) SLIDING injection SCALE. FOLLOW-UP WITH ENDO insulin Yes [id number] INJECT UP Univers aspart 7-24 TO 10 ity of U-100 00:00: UNITS [place] (NOVOLOG 00 UNDER THE Medica l FLEXPEN SKIN 3 Branch U-100 TIMES A INSULIN) DAY WITH A 100 unit/mL MEAL PER (3 mL) SLIDING injection SCALE. FOLLOW-UP WITH ENDO insulin Yes [id number] INJECT UP Univers aspart 7-24 TO 10 ity of U-100 00:00: UNITS [place] (NOVOLOG 00 UNDER THE Medica l FLEXPEN SKIN 3 Branch U-100 TIMES A INSULIN) DAY WITH A 100 unit/mL MEAL PER (3 mL) SLIDING injection SCALE. FOLLOW-UP WITH ENDO blood sugar 0 Yes [id number] Use as Univers diagnostic 7-21 directed ity o f (TRUE 00:00: up to 4 [place] METRIX 00 times a Medical GLUCOSE day Branch TEST STRIP) strip Blood-Gluco 0 Yes [id number] Use as Univers se Meter 7-21 directed ity of (ONETOUCH 00:00: [place] E10.65 [place] VERIO IQ 00 Medical METER) Kit Branch lancets 0 Yes [id number] Use as Uni vers (ONE TOUCH 7-21 directed ity o f DELICA) 33 00:00: [place] 4 [place] gauge Misc 00 times a Medica l day E10.65 Branch Insulin 0 Yes [id number] 24U inject 24 Univers Detemir 7-21 Units ity of (LEVEMIR 00:00[place] FLEXTOUCH 00 skin every Medi geena U-100 morning. Branch INSULN) 100 Follow-up unit/mL (3 endo for mL) management injection . blood sugar 0 Yes [id number] Use as Univers diagnostic - directed ity o f (TRUE 00:00: up to 4 [place] METRIX 00 times a Medical GLUCOSE day Branch TEST STRIP) strip Blood-Gluco 0 Yes [id number] Use as Univers se Meter - directed ity of (ONETOUCH 00:00: [place] E10.65 [place] VERIO IQ 00 Medical METER) Kit Branch lancets 2022-0 Yes [id number] Use as Uni vers (ONE TOUCH - directed ity o f DELICA) 33 00:00: [place] 4 [place] gauge Misc 00 times a Medica l day E10.65 Branch Insulin 2022-0 Yes [id number] 24U inject 24 Univers Detemir 7-21 Units ity of (LEVEMIR 00:[place]: [place] FLEXTOUCH 00 skin every Medi geena U-100 morning. Branch INSULN) 100 Follow-up unit/mL (3 endo for mL) management injection . blood sugar 2022-0 Yes [id number] Use as Univers diagnostic 7-21 directed ity o f (TRUE 00:00: up to 4 [place] METRIX 00 times a Medical GLUCOSE day Branch TEST STRIP) strip Blood-Gluco 2023-0 Yes [id number] Use as Univers se Meter 7-21 directed ity of (ONETOUCH 00:00: [place] E10.65 [place] VERIO IQ 00 Medical METER) Kit Branch lancets 0 Yes [id number] Use as Uni vers (ONE TOUCH 7-21 directed ity o f DELICA) 33 00:00: [place] gauge Misc 00 times a Medica l day E10.65 Branch Insulin 2022-0 Yes [id number] 24U inject 24 Univers Detemir 7-21 Units ity of (LEVEMIR 00:00: [place] FLEXTOUCH 00 skin every Medi geena U-100 morning. Branch INSULN) 100 Follow-up unit/mL (3 endo for mL) management injection . blood sugar 0 Yes [id number] Use as Univers diagnostic 7-21 directed ity o f (TRUE 00:00: up to 4 [place] METRIX 00 times a Medical GLUCOSE day Branch TEST STRIP) strip Blood-Gluco 0 Yes [id number] Use as Univers se Meter 7-21 directed ity of (ONETOUCH 00:00: [place] E10.65 [place] VERIO IQ 00 Medical METER) Kit Branch lancets 2022-0 Yes [id number] Use as Uni vers (ONE TOUCH 7-21 directed ity o f DELICA) 33 00:00: [place] gauge Misc 00 times a Medica l day E10.65 Branch Insulin 2022-0 Yes [id number] 24U inject 24 Univers Detemir 7-21 Units ity of (LEVEMIR 00:00: [place] FLEXTOUCH 00 skin every Medi geena U-100 morning. Branch INSULN) 100 Follow-up unit/mL (3 endo for mL) management injection . blood sugar 2022-0 Yes [id number] Use as Univers diagnostic 7-21 directed ity o f (TRUE 00:00: up to 4 [place] METRIX 00 times a Medical GLUCOSE day Branch TEST STRIP) strip Blood-Gluco 2022-0 Yes [id number] Use as Univers se Meter 7-21 directed ity of (ONETOUCH 00:00: [place] E10.65 [place] VERIO IQ 00 Medical METER) Kit Branch lancets 2022-0 Yes [id number] Use as Uni vers (ONE TOUCH 7-21 directed ity o f DELICA) 33 00:00: [place] 4 [place] gauge Misc 00 times a Medica l day E10.65 Branch Insulin Yes [id number] 24U inject 24 Univers Detemir 7-21 Units ity of (LEVEMIR 00:00: [place] FLEXTOUCH 00 skin every Medi geena U-100 morning. Branch INSULN) 100 Follow-up unit/mL (3 endo for mL) management injection . Insulin Yes [id number] 24U inject 24 Univers Detemir 3-03 Units ity of (LEVEMIR 00:00: [place] FLEXTOUCH 00 skin every Medi geena U-100 morning. Branch INSULN) 100 unit/mL (3 mL) injection Insulin Yes [id number] 24U inject 24 Univers Detemir 3-03 Units ity of (LEVEMIR 00:00: [place] FLEXTOUCH 00 skin every Medi geena U-100 morning. Branch INSULN) 100 unit/mL (3 mL) injection Insulin 2022- No [id number] 24U inject 24 Univers Detemir 3-03 07-21 Units ity of (LEVEMIR 00:00: 00:00 under the [place] FLEXTOUCH 00 :00 skin every Medi geena U-100 morning. Branch INSULN) 100 unit/mL (3 mL) injection Insulin 2022- No [id number] 24U inject 24 Univers Detemir 3-03 07-21 Units ity of (LEVEMIR 00:00: 00:00 under the [place] FLEXTOUCH 00 :00 skin every Medi geena U-100 morning. Branch INSULN) 100 unit/mL (3 mL) injection insulin 2021-11 Yes [id number] 24U INJECT 24 Univers degludec 1-19 UNITS ity of (TRESIBA 00:00: [place] FLEXTOUCH 00 SKIN EVERY Medi geena U-100) 100 MORNING. Branc h unit/mL (3 mL) InPn insulin 2021-11 Yes [id number] 24U INJECT 24 Univers degludec 1-19 UNITS ity of (TRESIBA 00:00: [place] FLEXTOUCH 00 SKIN EVERY Medi geena U-100) 100 MORNING. Branc h unit/mL (3 mL) InPn insulin 2021-11 Yes [id number] 24U INJECT 24 Univers degludec 1-19 UNITS ity of (TRESIBA 00:00: [place] FLEXTOUCH 00 SKIN EVERY Medi geena U-100) 100 MORNING. Branc h unit/mL (3 mL) InPn insulin 2021-11 Yes [id number] 24U INJECT 24 Univers degludec 1-19 UNITS ity of (TRESIBA 00:00: [place] FLEXTOUCH 00 SKIN EVERY Medi geena U-100) 100 MORNING. Branc h unit/mL (3 mL) InPn insulin 2021-11 Yes [id number] 24U INJECT 24 Univers degludec 1-19 UNITS ity of (TRESIBA 00:00: [place] FLEXTOUCH 00 SKIN EVERY Medi geena U-100) 100 MORNING. Branc h unit/mL (3 mL) InPn insulin 2021-11- No [id number] 24U INJECT 24 Univers degludec 1-19 03-03 UNITS ity of (TRESIBA 00:00: 00:00 UNDER THE [place] FLEXTOUCH 00 :00 SKIN EVERY Medi geena U-100) 100 MORNING. Branc h unit/mL (3 mL) InPn blood sugar Yes [id number] Use as Univers diagnostic 06-11 directed ity o f (TRUE 00:00: up to 4 [place] METRIX 00 times a Medical GLUCOSE day Branch TEST STRIP) strip lancets Yes [id number] Use as Uni vers (ONE TOUCH 06-11 directed ity o f DELICA) 33 00:00: [place] 4 [place] gauge Misc 00 times a Medica l day E10.65 Branch insulin Yes [id number] INJECT UP Univers aspart 06-11 TO 10 ity of U-100 00:00: UNITS [place] (NOVOLOG 00 UNDER THE Medica l FLEXPEN SKIN 3 Branch U-100 TIMES A INSULIN) DAY WITH A 100 unit/mL MEAL PER (3 mL) SLIDING injection SCALE Insulin Yes [id number] Use as Uni vers [place], 06-11 directed ity of Disposable, 00:00: four times [place] (BD 00 a day. Medical ULTRA-FINE DX:E10.65 Bran ch MICRO PEN NEEDLE) 32 gauge x 1/4" Ndle blood sugar Yes [id number] Use as Univers diagnostic 06-11 directed ity o f (TRUE 00:00: up to 4 [place] METRIX 00 times a Medical GLUCOSE day Branch TEST STRIP) strip lancets Yes [id number] Use as Uni vers (ONE TOUCH 06-11 directed ity o f DELICA) 33 00:00: [place] 4 [place] gauge Misc 00 times a Medica l day E10.65 Branch insulin Yes [id number] INJECT UP Univers aspart 06-11 TO 10 ity of U-100 00:00: UNITS [place] (NOVOLOG 00 UNDER THE Medica l FLEXPEN SKIN 3 Branch U-100 TIMES A INSULIN) DAY WITH A 100 unit/mL MEAL PER (3 mL) SLIDING injection SCALE Insulin Yes [id number] Use as Uni vers [place], 06-11 directed ity of Disposable, 00:00: four times [place] (BD 00 a day. Medical ULTRA-FINE DX:E10.65 Bran ch MICRO PEN NEEDLE) 32 gauge x 1/4" Ndle blood sugar Yes [id number] Use as Univers diagnostic 06-11 directed ity o f (TRUE 00:00: up to 4 [place] METRIX 00 times a Medical GLUCOSE day Branch TEST STRIP) strip lancets Yes [id number] Use as Uni vers (ONE TOUCH 06-11 directed ity o f DELICA) 33 00:00: [place] 4 [place] gauge Misc 00 times a Medica l day E10.65 Branch insulin 0 Yes [id number] INJECT UP Univers aspart 06-11 TO 10 ity of U-100 00:00: UNITS [place] (NOVOLOG 00 UNDER THE Medica l FLEXPEN SKIN 3 Branch U-100 TIMES A INSULIN) DAY WITH A 100 unit/mL MEAL PER (3 mL) SLIDING injection SCALE Insulin Yes [id number] Use as Uni vers [place], 06-11 directed ity of Disposable, 00:00: four times [place] (BD 00 a day. Medical ULTRA-FINE DX:E10.65 Bran ch MICRO PEN NEEDLE) 32 gauge x 1/4" Ndle blood sugar Yes [id number] Use as Univers diagnostic 06-11 directed ity o f (TRUE 00:00: up to 4 [place] METRIX 00 times a Medical GLUCOSE day Branch TEST STRIP) strip lancets Yes [id number] Use as Uni vers (ONE TOUCH 06-11 directed ity o f DELICA) 33 00:00: [place] 4 [place] gauge Misc 00 times a Medica l day E10.65 Branch insulin Yes [id number] INJECT UP Univers aspart 8 TO 10 ity of U-100 00:00: UNITS [place] (NOVOLOG 00 UNDER THE Medica l FLEXPEN SKIN 3 Branch U-100 TIMES A INSULIN) DAY WITH A 100 unit/mL MEAL PER (3 mL) SLIDING injection SCALE Insulin Yes [id number] Use as Uni vers [place], 06-11 directed ity of Disposable, 00:00: four times [place] (BD 00 a day. Medical ULTRA-FINE DX:E10.65 Bran ch MICRO PEN NEEDLE) 32 gauge x 1/4" Ndle blood sugar Yes [id number] Use as Univers diagnostic 06-11 directed ity o f (TRUE 00:00: up to 4 [place] METRIX 00 times a Medical GLUCOSE day Branch TEST STRIP) strip lancets 0 Yes [id number] Use as Uni vers (ONE TOUCH 06-11 directed ity o f DELICA) 33 00:00: [place] 4 [place] gauge Misc 00 times a Medica l day E10.65 Branch insulin 0 Yes [id number] INJECT UP Univers aspart 8- TO 10 ity of U-100 00:00: UNITS [place] (NOVOLOG 00 UNDER THE Medica l FLEXPEN SKIN 3 Branch U-100 TIMES A INSULIN) DAY WITH A 100 unit/mL MEAL PER (3 mL) SLIDING injection SCALE Insulin Yes [id number] Use as Uni vers [place], 06-11 directed ity of Disposable, 00:00: four times [place] (BD 00 a day. Medical ULTRA-FINE DX:E10.65 Bran ch MICRO PEN NEEDLE) 32 gauge x 1/4" Ndle blood sugar 0 Yes [id number] Use as Univers diagnostic 06-11 directed ity o f (TRUE 00:00: up to 4 [place] METRIX 00 times a Medical GLUCOSE day Branch TEST STRIP) strip lancets Yes [id number] Use as Uni vers (ONE TOUCH 06-11 directed ity o f DELICA) 33 00:00: [place] 4 [place] gauge Misc 00 times a Medica l day E10.65 Branch insulin Yes [id number] INJECT UP Univers aspart 8- TO 10 ity of U-100 00:00: UNITS [place] (NOVOLOG 00 UNDER THE Medica l FLEXPEN SKIN 3 Branch U-100 TIMES A INSULIN) DAY WITH A 100 unit/mL MEAL PER (3 mL) SLIDING injection SCALE Insulin Yes [id number] Use as Uni vers [place], 06-11 directed ity of Disposable, 00:00: four times [place] (BD 00 a day. Medical ULTRA-FINE DX:E10.65 Bran ch MICRO PEN NEEDLE) 32 gauge x 1/4" Ndle blood sugar Yes [id number] Use as Univers diagnostic 06-11 directed ity o f (TRUE 00:00: up to 4 [place] METRIX 00 times a Medical GLUCOSE day Branch TEST STRIP) strip lancets Yes [id number] Use as Uni vers (ONE TOUCH 06-11 directed ity o f DELICA) 33 00:00: up [place] 4 [place] gauge Misc 00 times a Medica l day E10.65 Branch insulin Yes [id number] INJECT UP Univers aspart 06-11 TO 10 ity of U-100 00:00: UNITS [place] (NOVOLOG 00 UNDER THE Medica l FLEXPEN SKIN 3 Branch U-100 TIMES A INSULIN) DAY WITH A 100 unit/mL MEAL PER (3 mL) SLIDING injection SCALE Insulin Yes [id number] Use as Uni vers [place], 06-11 directed ity of Disposable, 00:00: four times [place] (BD 00 a day. Medical ULTRA-FINE DX:E10.65 Bran ch MICRO PEN NEEDLE) 32 gauge x 1/4" Ndle blood sugar 0 Yes [id number] Use as Univers diagnostic 06-11 directed ity o f (TRUE 00:00: up to 4 [place] METRIX 00 times a Medical GLUCOSE day Branch TEST STRIP) strip lancets 0 Yes [id number] Use as Uni vers (ONE TOUCH 06-11 directed ity o f DELICA) 33 00:00: up [place] 4 [place] gauge Misc 00 times a Medica l day E10.65 Branch insulin Yes [id number] INJECT UP Univers aspart 06-11 TO 10 ity of U-100 00:00: UNITS [place] (NOVOLOG 00 UNDER THE Medica l FLEXPEN SKIN 3 Branch U-100 TIMES A INSULIN) DAY WITH A 100 unit/mL MEAL PER (3 mL) SLIDING injection SCALE Insulin Yes [id number] Use as Uni vers [place], 06-11 directed ity of Disposable, 00:00: four times [place] (BD 00 a day. Medical ULTRA-FINE DX:E10.65 Bran ch MICRO PEN NEEDLE) 32 gauge x 1/4" Ndle blood sugar Yes [id number] Use as Univers diagnostic 06-11 directed ity o f (TRUE 00:00: up to 4 [place] METRIX 00 times a Medical GLUCOSE day Branch TEST STRIP) strip lancets Yes [id number] Use as Uni vers (ONE TOUCH 06-11 directed ity o f DELICA) 33 00:00: [place] 4 [place] gauge Misc 00 times a Medica l day E10.65 Branch insulin Yes [id number] INJECT UP Univers aspart 06-11 TO 10 ity of U-100 00:00: UNITS [place] (NOVOLOG 00 UNDER THE Medica l FLEXPEN SKIN 3 Branch U-100 TIMES A INSULIN) DAY WITH A 100 unit/mL MEAL PER (3 mL) SLIDING injection SCALE Insulin Yes [id number] Use as Uni vers [place], 06-11 directed ity of Disposable, 00:00: four times [place] (BD 00 a day. Medical ULTRA-FINE DX:E10.65 Bran ch MICRO PEN NEEDLE) 32 gauge x 1/4" Ndle insulin Yes [id number] INJECT UP Univers aspart 06-11 TO 10 ity of U-100 00:00: UNITS [place] (NOVOLOG 00 UNDER THE Medica l FLEXPEN SKIN 3 Branch U-100 TIMES A INSULIN) DAY WITH A 100 unit/mL MEAL PER (3 mL) SLIDING injection SCALE Insulin Yes [id number] Use as Uni vers [place], 06-11 directed ity of Disposable, 00:00: four times [place] (BD 00 a day. Medical ULTRA-FINE DX:E10.65 Bran ch MICRO PEN NEEDLE) 32 gauge x 1/4" Ndle insulin Yes [id number] INJECT UP Univers aspart 06-11 TO 10 ity of U-100 00:00: UNITS [place] (NOVOLOG 00 UNDER THE Medica l FLEXPEN SKIN 3 Branch U-100 TIMES A INSULIN) DAY WITH A 100 unit/mL MEAL PER (3 mL) SLIDING injection SCALE Insulin Yes [id number] Use as Uni vers [place], 06-11 directed ity of Disposable, 00:00: four times [place] (BD 00 a day. Medical ULTRA-FINE DX:E10.65 Bran ch MICRO PEN NEEDLE) 32 gauge x 1/4" Ndle Insulin Yes [id number] Use as Uni vers [place], 06-11 directed ity of Disposable, 00:00: four times [place] (BD 00 a day. Medical ULTRA-FINE DX:E10.65 Bran ch MICRO PEN NEEDLE) 32 gauge x 1/4" Ndle Insulin Yes [id number] Use as Uni vers [place], 06-11 directed ity of Disposable, 00:00: four times [place] (BD 00 a day. Medical ULTRA-FINE DX:E10.65 Bran ch MICRO PEN NEEDLE) 32 gauge x 1/4" Ndle Insulin Yes [id number] Use as Uni vers [place], 06-11 directed ity of Disposable, 00:00: four times [place] (BD 00 a day. Medical ULTRA-FINE DX:E10.65 Bran ch MICRO PEN NEEDLE) 32 gauge x 1/4" Ndle blood sugar Yes [id number] Use as Univers diagnostic 06-11 directed ity o f (TRUE 00:00: up to 4 [place] METRIX 00 times a Medical GLUCOSE day Branch TEST STRIP) strip lancets Yes [id number] Use as Uni vers (ONE TOUCH 06-11 directed ity o f DELICA) 33 00:00: [place] 4 [place] gauge Misc 00 times a Medica l day E10.65 Branch insulin Yes [id number] INJECT UP Univers aspart 06-11 TO 10 ity of U-100 00:00: UNITS [place] (NOVOLOG 00 UNDER THE Medica l FLEXPEN SKIN 3 Branch U-100 TIMES A INSULIN) DAY WITH A 100 unit/mL MEAL PER (3 mL) SLIDING injection SCALE Insulin Yes [id number] Use as Uni vers [place], 8-09 directed ity of Disposable, 00:00: four times [place] (BD 00 a day. Medical ULTRA-FINE DX:E10.65 Bran ch MICRO PEN NEEDLE) 32 gauge x 1/4" Ndle insulin Yes [id number] 24U inject 24 Univers degludec 06-11 Units ity of (TRESIBA 00:00: [place] FLEXTOUCH 00 skin every Medi geena U-100) 100 morning. Branc h unit/mL (3 mL) InPn insulin 2022- No [id number] INJECT UP Univers aspart 06-11 TO 10 ity of U-100 00:00: 00:00 UNITS [place] (NOVOLOG 00 :00 UNDER THE Medica l FLEXPEN SKIN 3 Branch U-100 TIMES A INSULIN) DAY WITH A 100 unit/mL MEAL PER (3 mL) SLIDING injection SCALE insulin 2022- No [id number] INJECT UP Univers aspart 06-11 TO 10 ity of U-100 00:00: 00:00 UNITS [place] (NOVOLOG 00 :00 UNDER THE Medica l FLEXPEN SKIN 3 Branch U-100 TIMES A INSULIN) DAY WITH A 100 unit/mL MEAL PER (3 mL) SLIDING injection SCALE blood sugar 2022- No [id number] Use as Univers diagnostic 06-11 directed ity of (TRUE 00:00: 00:00 up to 4 [place] METRIX 00 :00 times a Medical GLUCOSE day Branch TEST STRIP) strip lancets 2022- No [id number] Use as Un thomas (ONE TOUCH 06-11 directed ity of DELICA) 33 00:00: 00:00 up to 4 [place] gauge Misc 00 :00 times a Medica l day E10.65 Branch blood sugar 2022- No [id number] Use as Univers diagnostic 06-11 directed ity of (TRUE 00:00: 00:00 up to 4 [place] METRIX 00 :00 times a Medical GLUCOSE day Branch TEST STRIP) strip lancets 2022- No [id number] Use as Un thomas (ONE TOUCH 06-11 directed ity of DELICA) 33 00:00: 00:00 up to 4 [place] gauge Misc 00 :00 times a Medica l day E10.65 Branch insulin 2021- No [id number] 24U inject 24 Univers degludec 06-11 11-19 Units ity of (TRESIBA 00:00: 00:00 under the [place] FLEXTOUCH 00 :00 skin every Medi geena U-100) 100 morning. Branc h unit/mL (3 mL) InPn Insulin NPH 2021- No [id number] 24 units Univers Human 06-0409 every ity of [place] 00:00: 00:00 morning(2A [place] (NOVOLIN N 00 :00 M) and 12 Medi geena FLEXPEN) units Branch 100 unit/mL before (3 mL) bedtime ( injection 4PM) insulin 2021- No [id number] INJECT UP Univers aspart 06-04 TO 10 ity of U-100 00:00: 00:00 UNITS [place] (NOVOLOG 00 :00 UNDER THE Medica l FLEXPEN SKIN 3 Branch U-100 TIMES A INSULIN) DAY WITH A 100 unit/mL MEAL PER (3 mL) SLIDING injection SCALE lancets 2021- No [id number] Use as Un thomas (ONE TOUCH 01-04 directed ity of DELICA) 33 00:00: 00:00 up to 4 [place] gauge Misc 00 :00 times a Medica l day E10.65 Branch TRUE METRIX 2021- No [id number] Use as Univers GLUCOSE 01-04 directed ity of TEST STRIP 00:00: 00:00 up to 4 [place] as strip 00 :00 times a Medical day Branch Insulin 2021- No [id number] Use as Un thomas [place], 109 directed ity of Disposable, 00:00: 00:00 four times [place] (BD 00 :00 a day. Medical ULTRA-FINE DX:E10.65 Bran ch MICRO PEN NEEDLE) 32 gauge x 1/4" Ndle ONETOUCH Yes [id number] Use as Un thomas VERIO IQ 3-13 directed ity of METER Kit 00:00: T[place] E10.65 [place] 00 Medical Branch ONETOUCH Yes [id number] Use as Un [place]omas VERIO IQ 3-13 directed ity of METER Kit 00:00: T[place] E10.65 [place] 00 [facility] 0 Yes [id number] Use as Un thomas VERIO IQ 3-13 directed ity of METER Kit 00:00: [place]10.65 [place] [facility] 0 Yes [id number] Use as Un thomas VERIO IQ 3-13 directed ity of METER Kit 00:00: [place]10.65 [place] [facility] 0 Yes [id number] Use as Un thomas VERIO IQ 3-13 directed ity of METER Kit 00:00: [place] E10.65 [place] [facility] 0 Yes [id number] Use as Un thomas VERIO IQ 3-13 directed ity of METER Kit 00:00: [place] E10.65 [place] [facility] 0 Yes [id number] Use as Un thomas VERIO IQ 3-13 directed ity of METER Kit 00:00: [place] E10.65 [place] [facility] 0 Yes [id number] Use as Un thomas VERIO IQ 3-13 directed ity of METER Kit 00:00: [place] E10.[place] [facility] 0 Yes [id number] Use as Un thomas VERIO IQ 3-13 directed ity of METER Kit 00:00: [place]10.65 [place] [facility] Yes [id number] Use as Un thomas VERIO IQ 3-13 directed ity of METER Kit 00:00: [place]10.65 [place] [facility] 0 2022- No [id number] Use as U nivers VERIO IQ 3-13 05-23 directed ity of METER Kit 00:00: 00:00 [place] E10.65 [place] :00 [facility] 2018-0 2022- No [id number] Use as U nivers VERIO IQ 3-13 05-23 directed ity of METER Kit 00:00: 00:00 TID E10.65 [place] 00 :00 [facility] insulin 2018-1 Yes 27U QD Inject [facility]argine [...] Time Observation Value Comments Source Systolic blood 2023-05-23 17:59:00 126 mm[Hg] [facility] Diastolic blood 2023-05-23 17:59:00 89 mm[Hg] [facility] Heart rate 2023-05-23 17:59:00 87 /min [facility] Body temperature 2023-05-23 17:59:00 36.72 Graciel[facility] Respiratory rate 2023-05-23 17:59:00 18 /min [facility] Body height 2023-05-23 17:59:00 157.5 cm [facility] Body weight 2023-05-23 17:59:00 71.532 kg [facility] BMI 2023-05-23 17:59:00 28.84 kg/m2 Universi ty [facility] Oxygen saturation in 2023-05-23 17:59:00 100 /min University of Arterial blood by [facility] Pulse oximetry Branch Systolic blood 2022-06-11 16:53:00 120 mm[Hg] Univer sity of pressure [facility] Diastolic blood 2022-06-11 16:53:00 81 mm[Hg] Unive rsity of pressure [facility] Heart rate 2022-06-11 16:53:00 93 /min Universi ty [facility] Body weight 2022-06-11 16:53:00 76.431 kg Universi [facility] BMI 2022-06-11 16:53:00 30.82 kg/m2 Universi ty [facility] Oxygen saturation in 2022-06-11 16:53:00 98 /min [facility] Arterial blood by [facility] Pulse oximetry Branch Procedures Procedure Date / Time Performing Clinician Source Performed GLYCOSYLATED HEMOGLOBIN 2023-05-23 19:29:00 Harika Castellon [facility] versDell [facility] (A1C) [facility] POCT HEMOGLOBIN A1C 2022-06-11 16:56:00 Beatriz Winters [facility] [id number] 2020-11-30 00:00:00 [facility] [id number] 2020-11-30 00:00:00 [facility] Encounters Start End Encounter Admission Attending Care Care Encounter Source Date/Time Date/Time Type Type Clinicians Facility Department ID 2021-08-31 [id number] [facility] 10:13:06 ANSELMO FIGUEROA it y [facility] 2020-11-29 Inpatient EM Jose, [facility] LD [id number] [facility] 20:33:00 Ziad 65 [facility] 2020-11-22 Inpatient EL Jose [facility] OBANTE [id number] [facility] 10:30:00 Ziad 82 [facility] 2020-09-28 Inpatient Jose, [facility] TONY [id number] [facility] 03:41:00 Ziad 79 [facility] 2020-09-26 Inpatient EL Jose, NASRIN LLOYD [id number] [facility] 12:48:00 Zitennille 85 [facility] 2020-08-05 Inpatient [facility] JED [id number] [facility] 00:52:00 53 [facility] 2023-05-26 2023-05-26 [facility] [id number] Univers 00:00:00 00:00:00 Harika A HEALTH 350.1.13.10 i ty of [place] 4.2.7.2.686 Mason as JURGEN?BLEA [id number] [facility] 0[address] [facility] OFFICE [facility] 2023-05-23 2023-05-23 Barrel Repairer Lab, Ang - Db [facility] 1.2.840.1 14 [id number] Univers 14:00:00 14:39:27 Visit Harika Castellon Claude HEALTH 350.1.13.10 ity of [place] 4.2.7.2.686 Mason as JURGEN?BLEA [id number] [facility] [address] [facility] OFFICE [facility] 2023-05-23 2023-05-23 [facility] [id number] Univers 13:00:00 13:46:37 HARIKA itdevante [facility] 2023-05-23 2023-05-23 [facility] 1.2.840.114 [id number] Univers 13:00:00 13:46:37 Visit Harika Claude HEALTH 350.1.13.10 i ty of [place] 4.2.7.2.686 Mason as JURGEN?BLEA [id number] [facility] [address] [facility] OFFICE [facility] 2023-05-22 2023-05-22 Telephone [facility] [id number] Univers 00:00:00 00:00:00 Wentong HEALTH 350.1.13.10 it y of [place] 4.2.7.2.686 Mason as JURGEN?BLEA [id number] [facility] [address] [facility] OFFICE [facility] 2023-04-11 2023-04-11 Outpatient SFA [facility] [id number] [place] 14:02:45 14:02:45 57972 F Abel 2023-01-03 2023-01-03 Refill [facility] 1.2.840.114 [id number] Univers 00:00:00 00:00:00 [employer] 350.1.13.10 it y of [place] 4.2.7.2.686 Mason as JURGEN?BLEA [id number] [address] OFFICE [facility] 2022-12-23 2022-12-23 Telephone [facility] [id number] Univers 00:00:00 00:00:00 [employer] 350.1.13.10 it y of [place] 4.2.7.2.686 Mason as JURGEN?BLEA [id number] [address] OFFICE [facility] 2022-11-26 2022-11-26 [facility] [id number] Univers 12:00:00 12:00:00 [facility] 2022-09-20 2022-09-20 Refill [facility] 1.2.840.114 [id number] Univers 00:00:00 00:00:00 [employer] 350.1.13.10 it y of [place] 4.2.7.2.686 Mason as JURGEN?BLEA [id number] [address] OFFICE [facility] 2022-06-11 2022-06-11 [facility] [id number] Univers 12:00:00 12:40:04 [facility] 2022-06-11 2022-06-11 Office [facility] 1.2.840.114 [id number] Univers 12:00:00 12:40:04 Visit [employer] 350.1.13.10 it y of [place] 4.2.7.2.686 Mason as JURGEN?BLEA [id number] [address] OFFICE [facility] 2022-06-11 2022-06-11 Outpatient [facility] [id number] Univers 12:00:00 12:00:00 [facility] 2022-06-11 2022-06-11 Orders Doctor LAZARO 1.2.840.114 [id number] Univers 00:00:00 00:00:00 Only Unassigned, GENARO 350.1.13.10 ity of [place] [facility] 4.2.7.2.686 Mason as [id number] [address] 2022-02-25 2022-02-25 Orders Doctor LAZARO 1.2.840.114 [id number] Univers 00:00:00 00:00:00 Only Unassigned, GENARO 350.1.13.10 ity of [place] [facility] 4.2.7.2.686 Mason as [id number] [address] 2020-11-22 2020-11-22 Outpatient Jose, SHIRAWU REFE [id number] [facility] 14:51:00 14:51:00 Ziad 76 [facility] 2020-09-26 2020-09-26 Outpatient Jose, HCAWU REFE [id number] [facility] 17:05:00 17:05:00 Ziad 75 [facility] 2020-09-20 2020-09-20 [facility] 1.2.840.114 [id number] 00:00:00 00:00:00 Beatriz Duval 350.1.13.10 [place] 4.2.7.2.686 Professio [id number] [address] 2020-07-16 2020-07-16 [facility] 1.2.840.114 [id number] 00:00:00 00:00:00 Beatriz Duval 350.1.13.10 [place] 4.2.7.2.686 Professio [id number] [address] 2020-06-20 2020-06-20 Outpatient R [facility] [id number] Univers 10:00:00 10:00:00 WENTONG ity [facility] 2020-05-30 2020-05-30 Outpatient R [facility] [id number] Univers 08:00:00 08:00:00 ity [facility] 2020-05-09 2020-05-09 Outpatient R [facility] [id number] Univers 14:00:00 14:00:00 [place] ity [facility] 2020-01-05 2020-01-05 Outpatient R JARAD [facility] [id number] Univers 11:00:00 11:00:00 BEATRIZ wheeler [facility] Results Test Description Test Time Test Comments Results Result Comments Source POCT HEMOGLOBIN A1C TEST 2022-06-11 16:56:00 Test Item Value Reference Range Interpretation Comme nts POCT HBA1C (test code = 4548-4) 14 % 4-6 A Lab Interpretation (test code = 60174-0) [facility] [id number] 07:05:48 Test Item Value Reference Range Interpretation Comments HEMOGLOBIN A1c (test 12.7 % 4.2-5.6 H AMERIC AN DIABETES code = 80205) ASSOCIATION IDELINES FOR HGB A1C: PREDIABETES/INC REASED [...] INDICATED, ALL TESTING PER FORMED ATCLINICAL PATH [address] [address] LABORATORY DIRE CTOR: Ca HOOVER. CLIA NUMBER [id number] CAP ACCREDITATION N O. [id number] ALBUMIN/CREATININE RATIO, URINE, [id number] 04:35:05 Test Item Value Reference Range Interpretation Comments CREATININE, URINE, 151.8 MG/DL NOT ESTAB RANDOM (test code = 2072) ALBUMIN, URINE, 212.2 MG/DL NOT ESTAB RANDOM (test code = 32882) CALC ALBUMIN/CREAT, 1398 MG/G <30 H Note: RND (test code = Albumin/Cre atinine 21902) ratio reference interval reflec ts ADA and NKF guideli svitlana. PLACENTA THIRD [id number] 11:28:00 Test Item Value Reference Range Interpretation Comments PLACENTA THIRD TRIMESTER (test code = PLACIII) RUN DATE: 12/07/20 [facility] PAGE 1 RUN TIME: 1403 Specimen Inquiry RUN USER: INTERFACE PATIENT: TASHI MOSQUERA LOC: SaloniRENÉ U #: [id number] AGE/SX: ROOM: [place] RE11/29/20REG DR: Natalie Corrales MD : 89 BED: A DIS: 12/03/20 STATUS: DIS IN TLOC: SPEC #: [id number] RECD: 12/01/20 STATUS: REKHA REQ #: [id number] THERESE: 11/30/20- SUBM DR: Natalie Corrales MD ENTERED: 12/01/20 SP TYPE: PLACIII RAYMOND ROJO: ORDERED: LEVEL V SURGICA CODES: [id number] - PLACENTA, NOS PROCEDURES: LEVEL V SURGICA [...] risk for recurrence in future pregnancies. CPT: 08095 [facility]/wpd GROSS DESCRIPTION The specimen was received in a container, labeled with the patient's name, unit number and designated "placenta". The following attributes are observed: Cord insertion: 1 cm from margin CONTINUED ON NEXT PAGE RUN DATE: 12/07/20 [facility] PAGE 2 RUN TIME: 1403 Specimen Inquiry RUN USER: INTERFACE SPEC #: [id number] PATIENT: TASHI MOSQUERA #[id number] (Continued) --- GROSS DESCRIPTION (Continued) Cord length: [...] Olive Young 12/07/20 1128 END OF REPORT [id number] 11:58:00 Test Item Value Reference Range Interpretation Comments GLUBED (test code = GLUBED) 71 mg/dL 65-110 N [id number] 06:51:00 Test Item Value Reference Range Interpretation Comments GLUBED (test code = GLUBED) 80 mg/dL 65-110 N [id number] 21:24:00 Test Item Value Reference Range Interpretation Comments GLUBED (test code = GLUBED) 103 mg/dL 65-110 N [id number] 15:15:00 Test Item Value Reference Range Interpretation Comments GLUBED (test code = GLUBED) 206 mg/dL 65-110 H [id number] 09:56:00 Test Item Value Reference Range Interpretation Comments GLUBED (test code = GLUBED) 200 mg/dL 65-110 H [id number] 06:48:00 Test Item Value Reference Range Interpretation Comments GLUBED (test code = GLUBED) 64 mg/dL 65-110 L [id number] 21:12:00 Test Item Value Reference Range Interpretation Comments GLUBED (test code = GLUBED) 186 mg/dL 65-110 H [id number] 14:15:00 Test Item Value Reference Range Interpretation Comments GLUBED (test code = GLUBED) 177 mg/dL 65-110 H [id number] 10:42:00 Test Item Value Reference Range Interpretation Comments GLUBED (test code = GLUBED) 242 mg/dL 65-110 H HGB [id number] 08:21:00 Test Item Value Reference Range Interpretation Comments HEMOGLOBIN (test code = HGB) 11.7 g/dL 10.7-13.9 N HEMATOCRIT (test code = HCT) 36.4 % 32.1-42.1 N [id number] 06:49:00 Test Item Value Reference Range Interpretation Comments GLUBED (test code = GLUBED) 115 mg/dL 65-110 H [id number] 22:46:00 Test Item Value Reference Range Interpretation Comments GLUBED (test code = GLUBED) 129 mg/dL 65-110 H [id number] 19:28:00 Test Item Value Reference Range Interpretation Comments GLUBED (test code = GLUBED) 221 mg/dL 65-110 H [id number] 17:42:00 Test Item Value Reference Range Interpretation Comments GLUBED (test code = GLUBED) 359 mg/dL 65-110 H [id number] 10:51:00 Test Item Value Reference Range Interpretation Comments GLUBED (test code = GLUBED) 126 mg/dL 65-110 H ARTERIAL BLOOD [id number] 10:01:00 Test Item Value Reference Range Interpretation [...] FIO2 (test code = FIO2A) 21.0 % PaO2/[id number] 10:01:00 Test Item Value Reference Range Interpretation Comments PaO2/FiO2 (test code = ARN0MZQ6) mm/Hg ARTERIAL BLOOD [id number] 10:01:00 Test Item Value Reference Range Interpretation [...] FIO2 (test code = FIO2A) 21.0 % PaO2/[id number] 10:01:00 Test Item Value Reference Range Interpretation Comments PaO2/FiO2 (test code = YQX2KFM1) 70.40 mm/Hg CAPILLARY BLOOD [id number] 10:00:00 Test Item Value Reference Range Interpretation [...] FIO2 (test 21.0 % code = FIO2C) [id number] 06:32:00 Test Item Value Reference Range Interpretation Comments GLUBED (test code = GLUBED) 183 mg/dL 65-110 H [id number] 02:15:00 Test Item Value Reference Range Interpretation Comments GLUBED (test code = GLUBED) 82 mg/dL 65-110 N [id number] 22:52:00 Test Item Value Reference Range Interpretation Comments GLUBED (test code = GLUBED) 200 mg/dL 65-110 H AG HEPATITIS B [id number] 22:46:00 Test Item Value Reference Range Interpretation Comments AG HEPATITIS B SURFACE (test code NONREACTIVE NONREACTIVE = HBSAG) IS CONSENT FORM SIGNED FOR HIV TESTING? YAB HEPATITIS C [id number] 22:46:00 Test Item Value Reference Range Interpretation Comments AB HEPATITIS C (test code = NONREACTIVE NONREACTIVE HCVAB) SIGNAL TO CUTOFF (test code = 0.03 <0.80 N CUTOFF) IS CONSENT FORM SIGNED FOR HIV TESTING? YAB [id number] 22:46:00 Test Item Value Reference Range Interpretation Comments AB TREPONEMA (test code = TREPAB) NONREACTIVE NONREACTIVE IS CONSENT FORM SIGNED FOR HIV TESTING? YAB HIV 1 22:46:00 Test Item Value Reference Range Interpretation Comments AB HIV 1 2 (test NONREACTIVE NONREACTIVE Done by [facility] code = LQI72EC) 4th Gen HIV Ag/Ab Combo Screen IS CONSENT FORM SIGNED FOR HIV TESTING? YAG HEPATITIS B [id number] 22:16:00 Test Item Value Reference Range Interpretation Comments AG HEPATITIS B SURFACE (test code NONREACTIVE NONREACTIVE = HBSAG) IS CONSENT FORM SIGNED FOR HIV TESTING? YAB HEPATITIS C [id number] 22:16:00 Test Item Value Reference Range Interpretation Comments AB HEPATITIS C (test code = HCVAB) NONREACTIVE SIGNAL TO CUTOFF (test code = CUTOFF) <0.80 IS CONSENT FORM SIGNED FOR HIV TESTING? YAB [id number] 22:16:00 Test Item Value Reference Range Interpretation Comments AB TREPONEMA (test code = TREPAB) NONREACTIVE NONREACTIVE IS CONSENT FORM SIGNED FOR HIV TESTING? YAB HIV 1 22:16:00 Test Item Value Reference Range Interpretation Comments AB HIV 1 2 (test code = BFP31AP) NONREACTIVE IS CONSENT FORM SIGNED FOR HIV TESTING? YCBC W/AUTO [id number] 21:47:00 Test Item Value Reference Range Interpretation [...] code = PLTMR) COVID 19 Asymptomatic IH [id number] 21:44:00 Test Item Value Reference Range Interpretation [...] and/o r diagnosis of CO VID-19 under Nzfkgwo08 4(b)(1) of the Act, 21 U.S .C. 360bbb-3(b)(1), unless theauthorizatio n is terminated or r evoked sooner. [id number] 10:30:00 Test Item Value Reference Range Interpretation Comments GLUBED (test code = GLUBED) 105 mg/dL 65-110 N [id number] 06:29:00 Test Item Value Reference Range Interpretation Comments GLUBED (test code = GLUBED) 126 mg/dL 65-110 H [id number] 01:02:00 Test Item Value Reference Range Interpretation Comments GLUBED (test code = GLUBED) 72 mg/dL 65-110 N [id number] 20:42:00 Test Item Value Reference Range Interpretation Comments GLUBED (test code = GLUBED) 88 mg/dL 65-110 N [id number] 14:39:00 Test Item Value Reference Range Interpretation Comments GLUBED (test code = GLUBED) 149 mg/dL 65-110 H [id number] 11:20:00 Test Item Value Reference Range Interpretation Comments GLUBED (test code = GLUBED) 74 mg/dL 65-110 N [id number] 06:28:00 Test Item Value Reference Range Interpretation Comments GLUBED (test code = GLUBED) 103 mg/dL 65-110 N [id number] 06:28:00 Test Item Value Reference Range Interpretation Comments GLUBED (test code = GLUBED) 76 mg/dL 65-110 N [id number] 22:06:00 Test Item Value Reference Range Interpretation Comments GLUBED (test code = GLUBED) 78 mg/dL 65-110 N [id number] 16:07:00 Test Item Value Reference Range Interpretation Comments GLUBED (test code = GLUBED) 167 mg/dL 65-110 H [id number] 10:42:00 Test Item Value Reference Range Interpretation Comments GLUBED (test code = GLUBED) 130 mg/dL 65-110 H [id number] 04:47:00 Test Item Value Reference Range Interpretation Comments GLUBED (test code = GLUBED) 78 mg/dL 65-110 N [id number] 20:47:00 Test Item Value Reference Range Interpretation Comments GLUBED (test code = GLUBED) 160 mg/dL 65-110 H [id number] 14:52:00 Test Item Value Reference Range Interpretation Comments GLUBED (test code = GLUBED) 235 mg/dL 65-110 H [id number] 10:54:00 Test Item Value Reference Range Interpretation Comments GLUBED (test code = GLUBED) 148 mg/dL 65-110 H [id number] 07:01:00 Test Item Value Reference Range Interpretation Comments GLUBED (test code = GLUBED) 82 mg/dL 65-110 N [id number] 06:05:00 Test Item Value Reference Range Interpretation Comments GLUBED (test code = GLUBED) 61 mg/dL 65-110 L [id number] 20:39:00 Test Item Value Reference Range Interpretation Comments GLUBED (test code = GLUBED) 312 mg/dL 65-110 H GLYCOSYLATED HEMOGLOBIN [id number] 17:32:00 Test Item Value Reference Range Interpretation [...] H (test code = MBG) COMPREHENSIVE METABOLIC [id number] 17:32:00 Test Item Value Reference Range Interpretation [...] considered for these patients. AG HEPATITIS B [id number] 15:30:00 Test Item Value Reference Range Interpretation Comments AG HEPATITIS B SURFACE (test code NONREACTIVE NONREACTIVE = HBSAG) IS CONSENT FORM SIGNED FOR HIV TESTING? YAB HEPATITIS C [id number] 15:30:00 Test Item Value Reference Range Interpretation Comments AB HEPATITIS C (test code = NONREACTIVE NONREACTIVE HCVAB) SIGNAL TO CUTOFF (test code = 0.02 <0.80 N CUTOFF) IS CONSENT FORM SIGNED FOR HIV TESTING? YAB [id number] 15:30:00 Test Item Value Reference Range Interpretation Comments AB TREPONEMA (test code = TREPAB) NONREACTIVE NONREACTIVE IS CONSENT FORM SIGNED FOR HIV TESTING? YAB HIV 1 15:30:00 Test Item Value Reference Range Interpretation Comments AB HIV 1 2 (test NONREACTIVE NONREACTIVE Done by [facility] code = WND02YR) 4th Gen HIV Ag/Ab Combo Screen IS CONSENT FORM SIGNED FOR HIV TESTING? [id number] 15:23:00 Test Item Value Reference Range Interpretation Comments GLUBED (test code = GLUBED) 266 mg/dL 65-110 H COVID 19 Asymptomatic IH [id number] 15:16:00 Test Item Value Reference Range Interpretation [...] and/o r diagnosis of CO VID-19 under Crrjgso49 4(b)(1) of the Act, 21 U.S .C. 360bbb-3(b)(1), unless theauthorizatio n is terminated or r evoked sooner. AG HEPATITIS B [id number] 15:08:00 Test Item Value Reference Range Interpretation Comments AG HEPATITIS B SURFACE (test code NONREACTIVE NONREACTIVE = HBSAG) IS CONSENT FORM SIGNED FOR HIV TESTING? YAB HEPATITIS C [id number] 15:08:00 Test Item Value Reference Range Interpretation Comments AB HEPATITIS C (test code = HCVAB) NONREACTIVE SIGNAL TO CUTOFF (test code = CUTOFF) <0.80 IS CONSENT FORM SIGNED FOR HIV TESTING? YAB [id number] 15:08:00 Test Item Value Reference Range Interpretation Comments AB TREPONEMA (test code = TREPAB) NONREACTIVE NONREACTIVE IS CONSENT FORM SIGNED FOR HIV TESTING? YAB HIV 1 15:08:00 Test Item Value Reference Range Interpretation Comments AB HIV 1 2 (test code = UCZ99PD) NONREACTIVE IS CONSENT FORM SIGNED FOR HIV TESTING? YUR PROTEIN/CREATININE [id number] 14:46:00 Test Item Value Reference Range Interpretation Comments UR PROTEIN RANDOM (test code = 11.5 mg/dL PROTU) UR CREATININE RANDOM (test 24.6 mg/dL code = CREATU) PROTEIN/CREATININE RATIO (test 460.0 mg/gcrea <200 H code = P/CRATIO) COMPREHENSIVE METABOLIC [id number] 14:38:00 Test Item Value Reference Range Interpretation [...] (HA1C) (test code = GLYHGB) CBC W/AUTO [id number] 14:26:00 Test Item Value Reference Range Interpretation [...] NORMAL NORMAL code = PLTMR) - US [id number] 06:06:00 [facility] : 1995 Sex: F Patient Name: TASHI MOSQUERA Unit No: [id number] EXAMS: CPT CODE: [id number] [place] L[place] [address]671 STUDY: -US LTD 09/28/2020 5:04 AM Ordering Physician: Cipriano Alex III, MD Patient Name: TASHI MOSQUERAMR: [id number] : 1995; Age: 25 years y/o Female Clinical Indication: with vaginal bleeding. Comparison: 08/05/2020 FINDINGS: Multiple static images from a limited obstetrical ultrasound including olguin scale and M-mode imaging are submitted for interpretation. The examination was performed primarily to assess presentation, size, and dates. The structures were not assessed.GENERAL DESCRIPTION Single live intrauterine at 27 weeks [...] weeks 3 days as above described. [facility] NAME: [facility] Radiology Department PHYS: Cipriano Michelle III, MD [address] : 1995 AGE: 25 SEX: F [place] [address] LOC: AnupTONY PHONE #: [phone] EXAM DATE: 09/28/2020 STATUS: REG ER FAX #: [phone] RAD NO: Page 1 Signed Report (CONTINUED) Patient Name: TASHI MOSQUERA Unit No: [id number] EXAMS: CPT CODE: [id number] LTD 44531 (Continued) ALEXY 17.8 cm. Trace fluid inthe endocervical canal. The structures are not individually characterized on this examination,but no abnormality is demonstrated. GENERAL OBSERVATIONS REGARDING ULTRASOUND: 1. A normalor negative sonogram report should not delay further [...] ERICA ZHOU RDMS, T Probe: Trnscrbd D/ (0606) t.SDR.TP6 Orig Print D/T: S: 09/28/2020 (0609) [facility] NAME: [facility] Radiology Department PHYS: Cipriano Michelle III, MD [address] : 1995 AGE: 25 SEX: F [place], [place] [address] LOC: AnupTONY PHONE #: [phone] EXAM DATE: 09/28/2020 STATUS: REG ER FAX #: [phone] RAD NO: Page 2 Signed Report Patient Name: TASHI MOSQUERA Unit No: [id number] EXAMS: CPT CODE: [id number] [place] LTD 24553 (Continued) [facility] NAME: TASHI MOSQUERA Radiology Department PHYS: Cipriano Michelle III, MD [address] : 1995 AGE: 25 SEX: F [place], [place] [address] LOC: AnupTONY PHONE #: [phone] EXAM DATE: 09/28/2020 STATUS: REG ER FAX #: [phone] RAD NO: Page 3 Signed ReportURINALYSIS [id number] 05:32:00 Test Item Value Reference Range Interpretation [...] = MUCU) RARE NONE SEEN Specimen Comment: LDO BURINE SAMPLE: CLEAN [id number] 05:29:00 Test Item Value Reference Range Interpretation Comments GLUBED (test code = GLUBED) 91 mg/dL 65-110 N [id number] 14:54:00 Test Item Value Reference Range Interpretation Comments GLUBED (test code = GLUBED) 95 mg/dL 65-110 N [id number] 14:54:00 Test Item Value Reference Range Interpretation Comments GLUBED (test code = GLUBED) 124 mg/dL 65-110 H [id number] 14:54:00 Test Item Value Reference Range Interpretation Comments GLUBED (test code = GLUBED) 131 mg/dL 65-110 H COMPREHENSIVE METABOLIC [id number] 12:46:00 Test Item Value Reference Range Interpretation [...] 44 units/L 46-116 L code = ALKP) [id number] 12:46:00 Test Item Value Reference Range Interpretation Comments PHOSPHOROUS (test code = PHOS) 1.6 mg/dL 2.5-4.9 L [id number] 12:46:00 Test Item Value Reference Range Interpretation Comments MAGNESIUM (test code = MAG) 1.7 mg/dL 1.8-2.4 L CBC W/AUTO [id number] 12:04:00 Test Item Value Reference Range Interpretation [...] REQUIRED (test NORMAL NORMAL code = PLTMR) [id number] 10:33:00 Test Item Value Reference Range Interpretation Comments GLUBED (test code = GLUBED) 136 mg/dL 65-110 H [id number] 10:33:00 Test Item Value Reference Range Interpretation Comments GLUBED (test code = GLUBED) 180 mg/dL 65-110 H COMPREHENSIVE METABOLIC [id number] 07:48:00 Test Item Value Reference Range Interpretation [...] 42 units/L 46-116 L code = ALKP) [id number] 07:48:00 Test Item Value Reference Range Interpretation Comments PHOSPHOROUS (test code = PHOS) 1.6 mg/dL 2.5-4.9 L [id number] 07:48:00 Test Item Value Reference Range Interpretation Comments MAGNESIUM (test code = MAG) 1.6 mg/dL 1.8-2.4 L [id number] 07:06:00 Test Item Value Reference Range Interpretation Comments GLUBED (test code = GLUBED) 184 mg/dL 65-110 H [id number] 06:27:00 Test Item Value Reference Range Interpretation Comments GLUBED (test code = GLUBED) 187 mg/dL 65-110 H COMPREHENSIVE METABOLIC [id number] 05:46:00 Test Item Value Reference Range Interpretation [...] 42 units/L 46-116 L code = ALKP) [id number] 05:46:00 Test Item Value Reference Range Interpretation Comments MAGNESIUM (test code = MAG) 1.6 mg/dL 1.8-2.4 L CBC W/AUTO [id number] 05:34:00 Test Item Value Reference Range Interpretation [...] REQUIRED (test NORMAL NORMAL code = PLTMR) [id number] 05:22:00 Test Item Value Reference Range Interpretation Comments GLUBED (test code = GLUBED) 208 mg/dL 65-110 H [id number] 04:21:00 Test Item Value Reference Range Interpretation Comments GLUBED (test code = GLUBED) 210 mg/dL 65-110 H [id number] 03:22:00 Test Item Value Reference Range Interpretation Comments GLUBED (test code = GLUBED) 229 mg/dL 65-110 H [id number] 02:22:00 Test Item Value Reference Range Interpretation Comments GLUBED (test code = GLUBED) 247 mg/dL 65-110 H [id number] 01:34:00 Test Item Value Reference Range Interpretation Comments GLUBED (test code = GLUBED) 261 mg/dL 65-110 H [id number] 00:21:00 Test Item Value Reference Range Interpretation Comments GLUBED (test code = GLUBED) 276 mg/dL 65-110 H [id number] 23:23:00 Test Item Value Reference Range Interpretation Comments GLUBED (test code = GLUBED) 282 mg/dL 65-110 H [id number] 22:29:00 Test Item Value Reference Range Interpretation Comments GLUBED (test code = GLUBED) 193 mg/dL 65-110 H [id number] 22:29:00 Test Item Value Reference Range Interpretation Comments GLUBED (test code = GLUBED) 172 mg/dL 65-110 H [id number] 22:29:00 Test Item Value Reference Range Interpretation Comments GLUBED (test code = GLUBED) 123 mg/dL 65-110 H [id number] 22:29:00 Test Item Value Reference Range Interpretation Comments GLUBED (test code = GLUBED) 158 mg/dL 65-110 H [id number] 22:29:00 Test Item Value Reference Range Interpretation Comments GLUBED (test code = GLUBED) 192 mg/dL 65-110 H COMPREHENSIVE METABOLIC [id number] 21:00:00 Test Item Value Reference Range Interpretation [...] T 09/26/202058. ANION GAP (test code 18.70 08-22 N = GAP) GLUCOSE (test code = [...] units/L 46-116 TOTAL (test code = ALKP) [id number] 21:00:00 Test Item Value Reference Range Interpretation Comments PHOSPHOROUS (test code = PHOS) 1.8 mg/dL 2.5-4.9 L [id number] 21:00:00 Test Item Value Reference Range Interpretation Comments MAGNESIUM (test code = MAG) 1.4 mg/dL 1.8-2.4 L OSMOLALITY [id number] 20:51:00 Test Item Value Reference Range Interpretation Comments OSMOLALITY SERUM (test code = 296 mOsm/kg 275-295 H OSMO) OSMOLALITY [id number] 20:51:00 Test Item Value Reference Range Interpretation [...] be considered for these patients. GLYCOSYLATED HEMOGLOBIN [id number] 20:49:00 Test Item Value Reference Range Interpretation [...] H (test code = MBG) CBC W/AUTO [id number] 19:25:00 Test Item Value Reference Range Interpretation [...] NORMAL NORMAL code = PLTMR) VBG IONIZED [id number] 19:21:00 Test Item Value Reference Range Interpretation Comments VBG IONIZED CALCIUM (test code = 1.06 mmol/L 0.9-1.29 N ICAL/VBG) COMPREHENSIVE METABOLIC [id number] 19:09:00 Test Item Value Reference Range Interpretation Comments SODIUM (test code = 135 mEq/L 135-145 N NA) POTASSIUM (test code 3.9 mEq/L 3.5-5.0 N = K) CHLORIDE (test code 104 mEq/L 100-115 N = CL) CARBON DIOXIDE (test 10 mEq/L 22-31 LL RESULTS VERIFIED BY code = CO2) REPEAT ANALYSIS RESULTS CALLED TO PATRICK CISNEROS BACK & CONFIRME D? .BY F.LAB.TTT 09/26 190. ANION GAP (test code 10-20 H = [...] 46-116 N TOTAL (test code = ALKP) [id number] 19:09:00 Test Item Value Reference Range Interpretation Comments PHOSPHOROUS (test code = PHOS) 1.9 mg/dL 2.5-4.9 L [id number] 19:09:00 Test Item Value Reference Range Interpretation Comments MAGNESIUM (test code = MAG) 1.5 mg/dL 1.8-2.4 L [id number] 17:36:00 Test Item Value Reference Range Interpretation Comments GLUBED (test code = GLUBED) 212 mg/dL 65-110 H UR PROTEIN/CREATININE [id number] 17:25:00 Test Item Value Reference Range Interpretation Comments UR PROTEIN RANDOM 56.6 mg/dL (test code = PROTU) UR CREATININE 11.1 mg/dL RANDOM (test code = CREATU) PROTEIN/CREATININE 5090.0 <200 H RESULTS V ERIFIED BY RATIO (test code = mg/gcrea REPEAT AN ALYSISRESULTS P/CRATIO) CALLED TO SASHA READ BACK & CONFIRME D? YESBY F.LAB.TTT 09/26 1725 COMPREHENSIVE METABOLIC [id number] 17:24:00 Test Item Value Reference Range Interpretation [...] 46-116 N TOTAL (test code = ALKP) [id number] 17:24:00 Test Item Value Reference Range Interpretation Comments PHOSPHOROUS (test code = PHOS) 2.9 mg/dL 2.5-4.9 N [id number] 17:24:00 Test Item Value Reference Range Interpretation Comments AMYLASE (test code = CHELSIE) 77 units/L 30-110 N [id number] 17:24:00 Test Item Value Reference Range Interpretation Comments MAGNESIUM (test code = MAG) 1.7 mg/dL 1.8-2.4 L C REACTIVE [id number] 17:08:00 Test Item Value Reference Range Interpretation Comments C REACTIVE PROTEIN (test code = 0.2 mg/dL 0.6-1.2 L CRP) URINALYSIS [id number] 17:00:00 Test Item Value Reference Range Interpretation [...] = MUCU) RARE NONE SEEN CBC W/AUTO [id number] 16:53:00 Test Item Value Reference Range Interpretation [...] NORMAL NORMAL code = PLTMR) COMPREHENSIVE METABOLIC [id number] 13:57:00 Test Item Value Reference Range Interpretation [...] 48 units/L 46-116 N code = ALKP) [id number] 13:57:00 Test Item Value Reference Range Interpretation Comments LIPASE (test code = LIP) 85 units/L 73-393 N ACETONE [id number] 13:57:00 Test Item Value Reference Range Interpretation Comments ACETONE QUAL (test code = ACETNQL) NEGATIVE NEGATIVE BETA [id number] 13:57:00 Test Item Value Reference Range Interpretation Comments BETA HYDROBUTYRATE (test 2.2 mg/dL () Ref erence Range:All code = BETHYD) Ages (fasting ): 0.2 - 2.8Performed At: [facility] [address] [place] [address] [id number] danial Blanton MD Ph:[phone] [id number] 13:24:00 Test Item Value Reference Range Interpretation Comments GLUBED (test code = GLUBED) 169 mg/dL 65-110 H [id number] 11:17:00 Test Item Value Reference Range Interpretation Comments GLUBED (test code = GLUBED) 91 mg/dL 65-110 N [id number] 07:59:00 Test Item Value Reference Range Interpretation Comments GLUBED (test code = GLUBED) 162 mg/dL 65-110 H - US PREG UT [id number] 04:23:00 Patient Name: TASHI MOSQUERA Unit No: [id number] EXAMS: CPT CODE: [id number] US PREG UT TRANSVAGINAL 05093 STUDY: - US LTD, - US PREG UT TRANSVAGINAL 08/05/2020 12:59 AM Ordering Physician: Shira Arredondo MD Patient Name: TASHI MOSQUERA MR: [id number] : 1995; Age: 25 years y/o Female Clinical Indication: 19weeks,5 days preg, abd pain Comparison: None FINDINGS: Multiple static images from a limited obstetrical ultrasound including olguin scale and M-mode imaging are submitted for interp retation. The examination was performed primarily to assess [...] Not performed Small free pelvic fluid. [facility] NAME: TASHI MOSQUERA Radiology Department PHYS: Natalie Foley MD [address] : 1995 AGE: 25 SEX: F [place], [place] [address] LOC: F.2624 A PHONE #: [phone] EXAM DATE: 08/05/2020 STATUS: ADM IN FAX #: [phone] RAD NO: Page 1 Signed Report (CONTINUED) Patient Name: TASHI MOSQUERA Unit No: [id number] EXAMS: CPT CODE: [id number] US PREG UT TRANSVAGINAL 49227 (Continued) IMPRESSION: Single live intrauterine at 19 [...] on the clinical development during . SL[facility] . at 0423 Reported and signed by: Arpit Jaffe MD CC: Natalie Corrales MD Technologist: Charlotte Kidd RDMS Probe: [id number] Trnscrbd D/ (0423) [email or web address] Orig Print D/T:S: 08/05/2020 (0426) [facility] NAME: EDMUNDO MOSQUERAANY Radiology Department PHYS: Natalie Foley MD [address] : 1995 AGE: 25 SEX: F [place], [place] [address] LOC: F.2624 A PHONE #: [phone] EXAM DATE: 08/05/2020 STATUS: ADM IN FAX #: [phone] RAD NO: Page 2 Signed Report Patient Name: TASHI MOSQUERA Unit No: [id number] EXAMS: CPT CODE: [id number] US PREG UT TRANSVAGINAL 80035 (Continued) [facility] NAME: TASHI MOSQUERA RadiologyDepartment PHYS: Natalie Foley MD [address] : 1995 AGE: 25 SEX: F [place], [place] [address] LOC: F.4 A PHONE #: [phone] EXAM DATE: 08/05/2020 STATUS: ADM IN FAX #: [phone] RAD NO: Page 3 Signed Report- US [id number] 04:23:00 Patient Name: TASHI MOSQUERA Unit No: [id number] EXAMS: CPT CODE: [id number] US LTD [address]17 STUDY: - US LTD, - US PREG UT TRANSVAGINAL 08/05/2020 12:59 AM Ordering Physician: Shira Arredondo MD Patient Name: TASHI MOSQUERA MR: [id number] : 1995; Age: 25 years y/o Female Clinical Indication: 19weeks,5 days preg, abd pain Comparison: None FINDINGS: Multiple static images from alimited obstetrical ultrasound including olguin scale and M-mode imaging are submitted for interpretation. The examination was performed primarily to assess presentation, size, and dates. The fetalstructures were not assessed. GENERAL DESCRIPTION Single live [...] heart rate: 130 beats per minute. Kidneys: Notevaluated. Urinary Bladder: Not evaluated. Stomach: Not evaluated. Umbilical Cord: Not evaluated. Cord Insertion: Not evaluated. Extremities: Not evaluated. BIOMETRIC MEASUREMENTS Not performed Small free pelvic fluid. [facility] NAME: TASHI MOSQUERA Radiology Department PHYS: Shira Truong MD [address] : 1995 AGE: 25 SEX: F [place], [place] [address] ACCT NO: F [id number] LOC: F.4 A PHONE #: [phone] EXAM DATE: 08/05/2020 STATUS: ADM IN FAX #: [phone] RAD NO: Page 1 Signed Report (CONTINUED) Patient Name: TASHI MOSQUERA Unit No: [id number] EXAMS:CPT CODE: [id number] US LTD [address]7592 (Continued) IMPRESSION: Single live intrauterine at 19 [...] SL: TPAINTER-H . Electronically Signed by Arpit Tian 08/05/2020 at 0423 Reported and signed by: Arpit Jaffe MD CC: Shira Arredondo MD Technologist: Charlotte Kidd RDMS Probe: Trnscrbd D/ (0423) [email or web address] Orig Print D/T: S: 08/05/2020 (0426) [facility]: [facility] Radiology Department PHYS: Shira Truong MD [address] : 1995 AGE: 25 SEX: F [place], [place] [address] LOC: F.2624 A PHONE #: [phone] EXAM DATE: 08/05/2020 STATUS: ADM IN FAX #: [phone] RAD NO: Page 2 Signed Report Patient Name: TASHI MOSQUERA Unit No: [id number] EXAMS: CPT CODE: [id number] [facility] [address] (Continued) [facility] NAME: [facility] Radiology Department PHYS: Shira Truong MD [address] : 1995 AGE: 25 SEX: F [place], [place] [address]PVZT NO: [id number] LOC: Loraine Arce PHONE #: [phone] EXAM DATE: 08/05/2020 STATUS: ADM IN FAX #: [phone] [facility] NO: Page 3 Signed ReportARTERIAL BLOOD [id number] 03:03:00 Test Item Value Reference Range Interpretation [...] FIO2 (test code = FIO2A) 21.0 % PaO2/[id number] 03:03:00 Test Item Value Reference Range Interpretation Comments PaO2/FiO2 (test code = UTQ3UAN6) mm/Hg [id number] 03:03:00 Test Item Value Reference Range Interpretation Comments GLUCOSE (test code = GLU/ABG) 201 MG/DL 60-110 H ARTERIAL BLOOD [id number] 03:03:00 Test Item Value Reference Range Interpretation [...] FIO2 (test code = FIO2A) 21.0 % PaO2/[id number] 03:03:00 Test Item Value Reference Range Interpretation Comments PaO2/FiO2 (test code = DEC9MPG1) 471.40 mm/Hg [id number] 03:03:00 Test Item Value Reference Range Interpretation Comments GLUCOSE (test code = GLU/ABG) 201 MG/DL 60-110 H COMPREHENSIVE METABOLIC [id number] 02:23:00 Test Item Value Reference Range Interpretation [...] 48 units/L 46-116 N code = ALKP) [id number] 02:23:00 Test Item Value Reference Range Interpretation Comments LIPASE (test code = LIP) 85 units/L 73-393 N ACETONE [id number] 02:23:00 Test Item Value Reference Range Interpretation Comments ACETONE QUAL (test code = ACETNQL) NEGATIVE NEGATIVE BETA [id number] 02:23:00 Test Item Value Reference Range Interpretation Comments BETA HYDROBUTYRATE (test code = BETHYD) COOXIMETRY [id number] 02:14:00 Test Item Value Reference Range Interpretation Comments HEMOGLOBIN (test code = HGB/ABG) 13.0 g/dL 12-16 N HEMATOCRIT (test code = HCT/ABG) 38 % 37-47 N METHEMOGLOBIN (test code = METHGB) 0.6 % 0.0-1.5 N VENOUS BLOOD [id number] 02:14:00 Test Item Value Reference Range Interpretation [...] code = 21.0 % FIO2V) CBC W/AUTO [id number] 02:00:00 Test Item Value Reference Range Interpretation [...] = PLTMR) UA RFLX MICR CULT IF [id number] 01:47:00 Test Item Value Reference Range Interpretation [...] Suprapubic PainSpecimen Description: CLEAN CATCH COMPREHENSIVE METABOLIC [id number] 01:47:00 Test Item Value Reference Range Interpretation [...] 48 units/L 46-116 N code = ALKP) [id number] 01:47:00 Test Item Value Reference Range Interpretation Comments LIPASE (test code = LIP) 85 units/L 73-393 N ACETONE [id number] 01:47:00 Test Item Value Reference Range Interpretation Comments ACETONE QUAL (test code = ACETNQL) NEGATIVE BETA [id number] 01:47:00 Test Item Value Reference Range Interpretation Comments BETA HYDROBUTYRATE (test code = BETHYD) ISLET CELL AB [id number] 14:36:00 Test Item Value Reference Range Interpretation Comments ISLET CELL AB Refer to individual AUTOVERIFICATION (test Islet Cell Ab code = 2556) and/or Islet Cell Ab Titer results. BLOOD [id number] 00:00:00 Test Item Value Reference Range Interpretation Comments CULTURE (BEAKER) (test No growth in 5 days code = 1095) BLOOD [id number] 00:00:00 Test Item Value Reference Range Interpretation Comments CULTURE (BEAKER) (test No growth in 5 days code = 1095) POCT-GLUCOSE [id number] 12:04:00 Test Item Value Reference Range Interpretation Comments POC-GLUCOSE METER 178 mg/dL 70-110 H TESTED AT [place] [address] [facility] (test code = JOHANNY James [facility]) [address] POCT-GLUCOSE [id number] 07:46:00 Test Item Value Reference Range Interpretation Comments POC-GLUCOSE METER 210 mg/dL 70-110 H TESTED AT [place] [address] ([facility] (test code = JOHANNY James [facility] 1538) [address] CBC (HEMOGRAM ONLY)2018-08-23 06:39:00 Test Item Value Reference Range Interpretation Comments WHITE BLOOD CELL COUNT (BEAKER) 4.7 K/ L 3.5-10.5 (test code = 775) RED BLOOD CELL COUNT (AKER) 4.38 M/ L 3.93-5.22 (test code = [...] 0-0 (BEAKER) (test code = 413) POCT-GLUCOSE [id number] 22:06:00 Test Item Value Reference Range Interpretation Comments POC-GLUCOSE METER 157 mg/dL 70-110 H TESTED AT [place] [address] ([facility] (test code = JOHANNY James [facility] 1538) [address] POCT-GLUCOSE [id number] 17:54:00 Test Item Value Reference Range Interpretation Comments POC-GLUCOSE METER 223 mg/dL 70-[address] [facility] [address] ([facility]) (test code = JOHANNY James [facility] 1538) [address] POCT-GLUCOSE [id number] 12:06:00 Test Item Value Reference Range Interpretation Comments POC-GLUCOSE METER 227 mg/dL 70-110 H TESTED AT [place] [address] ([facility] (test code = JOHANNY James [facility] 1538) [address] POCT-GLUCOSE [id number] 07:46:00 Test Item Value Reference Range Interpretation Comments POC-GLUCOSE METER 237 mg/dL 70-110 H TESTED AT [place] [address] ([facility] (test code = JOHANNY James [facility] 1538) [address] CBC (HEMOGRAM ONLY)2018-08-22 07:12:00 Test Item Value [...] 0-0 (BEAKER) (test code = 413) POCT-GLUCOSE [id number] 21:37:00 Test Item Value Reference Range Interpretation Comments POC-GLUCOSE METER 264 mg/dL 70-[address] [facility] 67[address] (BEAKER) (test code = JOHANNY James [place] 1538) [address] POCT-GLUCOSE [id number] 17:52:00 Test Item Value Reference Range Interpretation Comments POC-GLUCOSE METER 273 mg/dL 70-[address] [facility] 67[address] (BEAKER) (test code = JOHANNY James [place] 1538) [address] POCT-GLUCOSE [id number] 11:57:00 Test Item Value Reference Range Interpretation Comments POC-GLUCOSE METER 316 mg/dL 70-110 H Notified R Rubén JOHANSEN/TESTED (BEAKER) (test code = AT [facility] [address] [facility] 1538) [place] [address] POCT-GLUCOSE [id number] 07:58:00 Test Item Value Reference Range Interpretation Comments POC-GLUCOSE METER 246 mg/dL 70-[address] [facility] [address] (BEAKER) (test code = JOHANNY James [facility] 1538) [address] [id number] 07:27:00 Test Item Value Reference Range Interpretation Comments PHOSPHORUS (BEAKER) (test code = 3.3 mg/dL 2.3-4.7 604) [id number] 07:27:00 Test Item Value Reference Range Interpretation Comments MAGNESIUM (BEAKER) (test code = 2.1 mg/dL 1.6-2.6 627) COMPREHENSIVE METABOLIC [id number] 07:27:00 Test Item Value Reference Range Interpretation [...] NOT APPLICABLE FOR DIALYSIS PATIEN TS. CALCIUM, [id number] 07:03:00 Test Item Value Reference Range Interpretation Comments CALCIUM IONIZED (BEAKER) (test 1.12 mmol/L 1.12-1.27 code = 698) PH, BLOOD (BEAKER) (test code = 7.46 1810) CBC W/PLT COUNT & AUTO [id number] 06:38:00 Test Item Value Reference Range Interpretation [...] PERCENT (BEAKER) (test code = 2801) POCT-GLUCOSE [id number] 22:26:00 Test Item Value Reference Range Interpretation Comments POC-GLUCOSE METER 325 mg/dL 70-110 H Notified R Rubén JOHANSEN/TESTED (BEAKER) (test code = AT [facility] [address] [facility]) [facility] [address] POCT-GLUCOSE [id number] 21:46:00 Test Item Value Reference Range Interpretation Comments POC-GLUCOSE METER 312 mg/dL 70-110 H TESTED AT [place] [address] (BEAKER) (test code = JOHANNY James [place] [address]) [address] BASIC METABOLIC [id number] 21:39:00 Test Item Value Reference Range Interpretation [...] S NOT APPLICABLE FOR DIALYSIS PATIEN TS. [id number] 19:06:00 Test Item Value Reference Range Interpretation Comments PHOSPHORUS (BEAKER) (test code = 3.3 mg/dL 2.3-4.7 604) [id number] 19:06:00 Test Item Value Reference Range Interpretation Comments MAGNESIUM (BEAKER) (test code = 2.2 mg/dL 1.6-2.6 627) [id number] 17:17:00 Test Item Value Reference Range Interpretation Comments PHOSPHORUS (BEAKER) (test code = 3.3 mg/dL 2.3-4.7 604) [id number] 17:17:00 Test Item Value Reference Range Interpretation Comments MAGNESIUM (BEAKER) (test code = 2.3 mg/dL 1.6-2.6 627) BASIC METABOLIC [id number] 17:17:00 Test Item Value Reference Range Interpretation [...] = 358) GLUCOSE RANDOM 77 mg/dL 70-105 ([facility]) (test code = 652) CALCIUM (AKER) 8.9 mg/dL 8.4-10.2 (test code = 697) EGFR ([facility] (test 110 mL/min/1.73 ESTIM ATED GFR IS code = 1092) sq m NOT ACCURATE CREATININE CLEARANCE IN PREDICTING GLOMERULAR FILTRATION RATE . ESTIMATED GFR I S NOT APPLICABLE FOR DIALYSIS PATIEN TS. POCT-GLUCOSE [id number] 17:15:00 Test Item Value Reference Range Interpretation Comments POC-GLUCOSE METER 86 mg/dL 70-110 TESTED AT [place] [address] ([facility]) (test code = [facility] [address]38) POCT-GLUCOSE [id number] 15:29:00 Test Item Value Reference Range Interpretation Comments POC-GLUCOSE METER 176 mg/dL 70-110 H TESTED AT [place] [address] ([facility]) (test code = [facility] 1538) [address] POCT-GLUCOSE [id number] 14:05:00 Test Item Value Reference Range Interpretation Comments POC-GLUCOSE METER 198 mg/dL 70-110 H TESTED AT [place] [address] ([facility]) (test code = [facility] 1538) [address] POCT-GLUCOSE [id number] 13:02:00 Test Item Value Reference Range Interpretation Comments POC-GLUCOSE METER 148 mg/dL 70-110 H TESTED AT [place] [address] ([facility]) (test code = [facility] 1538) [address] POCT-GLUCOSE [id number] 12:23:00 Test Item Value Reference Range Interpretation Comments POC-GLUCOSE METER 170 mg/dL 70-110 H TESTED AT [place] [address] ([facility]) (test code = [facility] 1538) [address] [id number] 11:33:00 Test Item Value Reference Range Interpretation Comments PHOSPHORUS (BEAKER) (test code = 3.1 mg/dL 2.3-4.7 604) [id number] 11:33:00 Test Item Value Reference Range Interpretation Comments MAGNESIUM (BEAKER) (test code = 1.8 mg/dL 1.6-2.6 627) BASIC METABOLIC [id number] 11:33:00 Test Item Value Reference Range Interpretation [...] NOT APPLICABLE FOR DIALYSIS PATIEN TS. KETONE, [id number] 11:26:00 Test Item Value Reference Range Interpretation Comments KETONES, BLOOD (BEAKER) (test code 1.4 mmol/L <0.4 H = 1103) POCT-GLUCOSE [id number] 11:05:00 Test Item Value Reference Range Interpretation Comments POC-GLUCOSE METER 206 mg/dL 70-110 H TESTED AT [place] [address] ([facility] (test code = JOHANNY James [facility] 1538) [address] POCT-GLUCOSE [id number] 10:15:00 Test Item Value Reference Range Interpretation Comments POC-GLUCOSE METER 245 mg/dL 70-[address] [facility] [address] (BEAKER) (test code = JOHANNY James [facility] 1538) [address] POCT-GLUCOSE [id number] 09:02:00 Test Item Value Reference Range Interpretation Comments POC-GLUCOSE METER 205 mg/dL 70-110 H TESTED AT [place] [address] ([facility] (test code = JOHANNY James [facility] 1538) [address] POCT-GLUCOSE [id number] 07:54:00 Test Item Value Reference Range Interpretation Comments POC-GLUCOSE METER 206 mg/dL 70-110 H TESTED AT [place] [address] (BEAKER) (test code = [facility] 1538) [address] POCT-GLUCOSE [id number] 07:54:00 Test Item Value Reference Range Interpretation Comments POC-GLUCOSE METER 217 mg/dL 70-110 H TESTED AT [place] [address] ([facility] (test code = [facility] 1538) [address] KETONE, [id number] 07:25:00 Test Item Value Reference Range Interpretation Comments KETONES, BLOOD (BEAKER) (test code 4.3 mmol/L <0.4 H = 1103) [id number] 07:00:00 Test Item Value Reference Range Interpretation Comments PHOSPHORUS (BEAKER) (test code = 2.5 mg/dL 2.3-4.7 604) [id number] 07:00:00 Test Item Value Reference Range Interpretation Comments MAGNESIUM (BEAKER) (test code = 2.0 mg/dL 1.6-2.6 627) BASIC METABOLIC [id number] 07:00:00 Test Item Value Reference Range Interpretation [...] NOT APPLICABLE FOR DIALYSIS PATIEN TS. POCT-GLUCOSE [id number] 06:13:00 Test Item Value Reference Range Interpretation Comments POC-GLUCOSE METER 223 mg/dL 70-110 H TESTED AT [place] [address] (BEAKER) (test code = [facility] 1538) [id number] POCT-GLUCOSE [id number] 05:20:00 Test Item Value Reference Range Interpretation Comments POC-GLUCOSE METER 224 mg/dL 70-110 H TESTED AT [place] [address] ([facility]) (test code = [facility] 1538) [id number] POCT-GLUCOSE [id number] 04:08:00 Test Item Value Reference Range Interpretation Comments POC-GLUCOSE METER 165 mg/dL 70-110 H TESTED [place] [address] ([facility]) (test code = [facility] 1538) [address] POCT-GLUCOSE [id number] 03:25:00 Test Item Value Reference Range Interpretation Comments POC-GLUCOSE METER 130 mg/dL 70-110 H TESTED AT [place] [address] ([facility]) (test code = [facility] Erika [facility] 1538) [address] [id number] 02:50:00 Test Item Value Reference Range Interpretation Comments PROCALCITONIN (BEAKER) (test code 2.96 ng/mL <0.05 H = 3036) SEPSIS RISK (ng/mL)Low: 0.05-0.50Intermediate: 0.51-2.00High: >=2.01KETONE, [id number] 02:15:00 Test Item Value Reference Range Interpretation Comments KETONES, BLOOD (BEAKER) (test code 3.1 mmol/L <0.4 H = 1103) POCT-GLUCOSE [id number] 02:13:00 Test Item Value Reference Range Interpretation Comments POC-GLUCOSE METER 153 mg/dL 70-110 H TESTED AT [place] [address] ([facility] (test code = [facility] Erika [facility] 1538) [address] [id number] 02:01:00 Test Item Value Reference Range Interpretation Comments PHOSPHORUS (BEAKER) (test code = 2.4 mg/dL 2.3-4.7 604) [id number] 02:01:00 Test Item Value Reference Range Interpretation Comments MAGNESIUM (BEAKER) (test code = 2.1 mg/dL 1.6-2.6 627) BASIC METABOLIC [id number] 02:01:00 Test Item Value Reference Range Interpretation [...] S NOT APPLICABLE FOR DIALYSIS PATIEN TS. [id number] 02:01:00 Test Item Value Reference Range Interpretation Comments AMYLASE (BEAKER) (test code = 349) 129 U/L 25-125 H [id number] 02:01:00 Test Item Value Reference Range Interpretation [...] RED CELL DISTRIBUTION WIDTH 14.2 % 11.7-14.4 ([facility]) (test code = 412) PLATELET COUNT ([facility]) (test 244 K/CU MM 150-450 code = 756) MEAN PLATELET VOLUME ([facility]) 9.8 fL 9.4-12.3 (test code = 754) NUCLEATED RED BLOOD CELLS 0 /100 WBC 0-0 ([facility]) (test code = 413) POCT-GLUCOSE [id number] 01:05:00 Test Item Value Reference Range Interpretation Comments POC-GLUCOSE METER 171 mg/dL 70-110 H TESTED AT [place] [address] ([facility]) (test code = JOHANNY James [place] 1538) [address] POCT-GLUCOSE [id number] 00:32:00 Test Item Value Reference Range Interpretation Comments POC-GLUCOSE METER 171 mg/dL 70-110 H TESTED AT [place] [address] ([facility]) (test code = JOHANNY James [place] 1538) [address] POCT-GLUCOSE [id number] 23:15:00 Test Item Value Reference Range Interpretation Comments POC-GLUCOSE METER 177 mg/dL 70-110 H TESTED AT [place] [address] ([facility]) (test code = [facility] Erika [place] 1538) [address] POCT-GLUCOSE [id number] 22:16:00 Test Item Value Reference Range Interpretation Comments POC-GLUCOSE METER 170 mg/dL 70-110 H TESTED AT [place] [address] ([facility]) (test code = JOHANNY James [place] 1538) [address] POCT-GLUCOSE [id number] 22:16:00 Test Item Value Reference Range Interpretation Comments POC-GLUCOSE METER 191 mg/dL 70-110 H TESTED AT [place] [address] ([facility]) (test code = [facility] [employer] [place] 1538) [address] KETONE, [id number] 20:49:00 Test Item Value Reference Range Interpretation Comments KETONES, BLOOD ([facility]) (test code 3.2 mmol/L <0.4 H = 1103) [id number] 20:46:00 Test Item Value Reference Range Interpretation Comments PHOSPHORUS ([facility]) (test code = 2.2 mg/dL 2.3-4.7 L 604) [id number] 20:46:00 Test Item Value Reference Range Interpretation Comments MAGNESIUM (BEAKER) (test code = 2.2 mg/dL 1.6-2.6 627) BASIC METABOLIC [id number] 20:46:00 Test Item Value Reference Range Interpretation [...] APPLICABLE FOR DIALYSIS PATIEN TS. BLOOD GAS, [id number] 20:29:00 Test Item Value Reference Range Interpretation [...] (test code = 1819) 21.0 % POCT-GLUCOSE [id number] 20:09:00 Test Item Value Reference Range Interpretation Comments POC-GLUCOSE METER 219 mg/dL 70-[address] [facility] 6720 ([facility] (test code = JOHANNY James [place] 1538) [address] POCT-GLUCOSE [id number] 18:58:00 Test Item Value Reference Range Interpretation Comments POC-GLUCOSE METER 248 mg/dL 70-[address] 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 Signed: Arpit Smith Verified Date/Time: 08/19/2018 18:36:40 Reading Location: [facility] Reading RoomAddendum EndsFINAL REPORT CTA brain [...] Verified Date/Time: 08/19/2018 13:33:21 Reading Locati on: [facility] Radiology Reading Room RAD, MANDIBLE, LESS THAN 4 [id number] 18:35:00Reason for exam:->dysarthria, fallFINAL REPORT Mandible 6 [...] Smith Verified Date/Time: 08/19/2018 18:35:55 Reading Location: [facility] Radiology Reading Room POCT-GLUCOSE [id number] 18:22:00 Test Item Value Reference Range Interpretation Comments POC-GLUCOSE METER 222 mg/dL 70-[address] [facility] 6720 (BEAKER) (test code = JOHANNY James [facility] 1538) [address] POCT-GLUCOSE [id number] 16:58:00 Test Item Value Reference Range Interpretation Comments POC-GLUCOSE METER 277 mg/dL 70-[address] [facility] 6720 (BEAKER) (test code = JOHANNY James [facility] 1538) [address] [id number] 16:12:00 Test Item Value Reference Range Interpretation Comments PHOSPHORUS (BEAKER) (test code = 2.9 mg/dL 2.3-4.7 604) [id number] 16:12:00 Test Item Value Reference Range Interpretation Comments MAGNESIUM (BEAKER) (test code = 1.7 mg/dL 1.6-2.6 627) BASIC METABOLIC [id number] 16:12:00 Test Item Value Reference Range Interpretation [...] NOT APPLICABLE FOR DIALYSIS PATIEN TS. KETONE, [id number] 15:46:00 Test Item Value Reference Range Interpretation Comments KETONES, BLOOD ([facility] (test code 6.0 mmol/L <0.4 H = 1103) POCT-GLUCOSE [id number] 15:18:00 Test Item Value Reference Range Interpretation Comments POC-GLUCOSE METER 322 mg/dL 70-110 H Will Repea t Test/TESTED ([facility]) (test code = AT [facility] [address] [place] [address] 15[address]) [facility] 7703 0 POCT-GLUCOSE [id number] 14:27:00 Test Item Value Reference Range Interpretation Comments POC-GLUCOSE METER 232 mg/dL 70-110 H TESTED AT [place] [address] ([facility]) (test code = [place] [address]) [address] POCT-GLUCOSE [id number] 13:05:00 Test Item Value Reference Range Interpretation Comments POC-GLUCOSE METER 240 mg/dL 70-110 H TESTED AT [place] [address] ([facility]) (test code = [place] [address]) [address] POCT-GLUCOSE [id number] 12:16:00 Test Item Value Reference Range Interpretation Comments POC-GLUCOSE METER 201 mg/dL 70-110 H TESTED AT [place] [address] ([facility]) (test code = [place] [address]508) [address] CT, [id number] 11:46:00FINAL REPORT INDICATION:23-year-old female with abdominal pain. [...] MDReport Verified Date/Time: 08/19/2018 11:46:24 Reading Location: [facility] Diagnostic Imaging Reading Room - [place] [address] BASIC METABOLIC PANEL 2018-08-19 11:17:00 Test Item [...] S NOT APPLICABLE FOR DIALYSIS PATIEN TS. [id number] 11:12:00 Test Item Value Reference Range Interpretation Comments PHOSPHORUS (BEAKER) (test code = 3.8 mg/dL 2.3-4.7 604) POCT-GLUCOSE [id number] 10:49:00 Test Item Value Reference Range Interpretation Comments POC-GLUCOSE METER 172 mg/dL 70-110 H TESTED AT [place] [address] (BEAKER) (test code = JOHANNY James [place] 1538) [address] KETONE, [id number] 10:37:00 Test Item Value Reference Range Interpretation Comments KETONES, BLOOD (BEAKER) (test code 4.2 mmol/L <0.4 H = 1103) HEMOGLOBIN [id number] 10:29:00 Test Item Value Reference Range Interpretation Comments HEMOGLOBIN A1C (BEAKER) (test code = 15.3 % 4.3-6.1 H 368) BLOOD GAS, [id number] 10:23:00 Test Item Value Reference Range Interpretation [...] (test code = 1819) 21.0 % POCT-GLUCOSE [id number] 10:02:00 Test Item Value Reference Range Interpretation Comments POC-GLUCOSE METER 145 mg/dL 70-110 H TESTED AT [place] [id number] (BEAKER) (test code = JOHANNY James [place] 1538) [address] POCT-GLUCOSE [id number] 09:04:00 Test Item Value Reference Range Interpretation Comments POC-GLUCOSE METER 168 mg/dL 70-110 H TESTED AT [place] [address] (BEAKER) (test code = JOHANNY James [place] 1538) [address] POCT-GLUCOSE [id number] 07:47:00 Test Item Value Reference Range Interpretation Comments POC-GLUCOSE METER 187 mg/dL 70-[address] [facility] 6720 (BEAKER) (test code = J[place]ANNY [place] 1535) [address] BLOOD GAS, [id number] 07:14:00 Test Item Value Reference Range Interpretation [...] code = 1819) 21.0 % BASIC METABOLIC [id number] 07:13:00 Test Item Value Reference Range Interpretation [...] S NOT APPLICABLE FOR DIALYSIS PATIEN TS. [id number] 07:11:00 Test Item Value Reference Range Interpretation Comments MAGNESIUM (BEAKER) (test code = 2.0 mg/dL 1.6-2.6 627) POCT-GLUCOSE [id number] 07:09:00 Test Item Value Reference Range Interpretation Comments POC-GLUCOSE METER 183 mg/dL 70-110 H TESTED AT [place] [address] ([facility] (test code = [facility] 1538) [address] POCT-GLUCOSE [id number] 06:19:00 Test Item Value Reference Range Interpretation Comments POC-GLUCOSE METER 185 mg/dL 70-110 H TESTED AT [place] [address] ([facility]) (test code = [facility] 1538) [address] POCT-GLUCOSE [id number] 05:05:00 Test Item Value Reference Range Interpretation Comments POC-GLUCOSE METER 223 mg/dL 70-110 H TESTED AT [place] [address] ([facility]) (test code = [facility] 1538) [address] POCT-GLUCOSE [id number] 04:17:00 Test Item Value Reference Range Interpretation Comments POC-GLUCOSE METER 235 mg/dL 70-110 H TESTED AT [place] [address] ([facility]) (test code = [facility] 1538) [address] [id number] 04:07:00 Test Item Value Reference Range Interpretation Comments PROCALCITONIN (BEAKER) (test code 6.19 ng/mL <0.05 H = 3036) SEPSIS RISK (ng/mL)Low: 0.05-0.50Intermediate: 0.51-2.00High: >=2.01 [id number] 04:03:00 Test Item Value Reference Range Interpretation Comments PHOSPHORUS (BEAKER) (test code = 1.4 mg/dL 2.3-4.7 LL 604) BASIC METABOLIC [id number] 04:00:00 Test Item Value Reference Range Interpretation [...] APPLICABLE FOR DIALYSIS PATIEN TS. BASIC METABOLIC [id number] 04:00:00 Test Item Value Reference Range Interpretation [...] APPLICABLE FOR DIALYSIS PATIEN TS. BLOOD GAS, [id number] 03:52:00 Test Item Value Reference Range Interpretation [...] 70 pg/mL 0-100 (test code = 700) [id number] 03:43:00 Test Item Value Reference Range Interpretation Comments MAGNESIUM (BEAKER) (test code = 2.1 mg/dL 1.6-2.6 627) [id number] 03:43:00 Test Item Value Reference Range Interpretation Comments AMYLASE (BEAKER) (test code = 349) 566 U/L 25-125 H [id number] 03:43:00 Test Item Value Reference Range Interpretation Comments LIPASE (BEAKER) (test code = 749) 124 U/L 8-78 H C-REACTIVE [id number] 03:43:00 Test Item Value Reference Range Interpretation Comments C-REACTIVE PROTEIN (BEAKER) (test 5.56 mg/dL 0.00-0.50 H code = 676) KETONE, [id number] 03:23:00 Test Item Value Reference Range Interpretation [...] (BEAKER) (test code = 412) PLATELET COUNT ([facility]) (test 329 K/CU MM 150-450 code = 756) MEAN PLATELET VOLUME (AKER) 10.4 fL 9.4-12.3 (test code = 754) NUCLEATED RED BLOOD CELLS 0 /100 WBC 0-0 (BEAKER) (test code = 413) POCT-GLUCOSE [id number] 03:17:00 Test Item Value Reference Range Interpretation Comments POC-GLUCOSE METER 251 mg/dL 70-110 H TESTED AT [place] [address] ([facility]) (test code = [facility] 1538) [address] OSMOLALITY, [id number] 02:24:00 Test Item Value Reference Range Interpretation Comments OSMOLALITY URINE ([facility]) (test 599 mOsm/kg 40-1400 code = 614) POCT-GLUCOSE [id number] 02:16:00 Test Item Value Reference Range Interpretation Comments POC-GLUCOSE METER 288 mg/dL 70-110 H TESTED AT [place] [address] ([facility]) (test code = [facility] 1538) [address] KETONE, [id number] 01:49:00 Test Item Value Reference Range Interpretation Comments KETONES, BLOOD (AKER) (test code 6.1 mmol/L <0.4 H = 1103) POCT-GLUCOSE [id number] 01:13:00 Test Item Value Reference Range Interpretation Comments POC-GLUCOSE METER 254 mg/dL 70-110 H TESTED AT [place] [address] ([facility]) (test code = [facility] 1538) [address] BLOOD GAS, [id number] 01:10:00 Test Item Value Reference Range Interpretation [...] (test code = 1819) 21.0 % POCT-GLUCOSE [id number] 00:05:00 Test Item Value Reference Range Interpretation Comments POC-GLUCOSE METER 288 mg/dL 70-[address] [facility] 6720 (BEAKER) (test code = J[place]ANNY [place] 1538) [address] BASIC METABOLIC [id number] 23:16:00 Test Item Value Reference Range Interpretation [...] NOT APPLICABLE FOR DIALYSIS PATIEN TS. OSMOLALITY, [id number] 23:03:00 Test Item Value Reference Range Interpretation Comments OSMOLALITY, SERUM (BEAKER) (test 342 mOsm/kg 275-295 H code = 615) [id number] 23:02:00 Test Item Value Reference Range Interpretation Comments PHOSPHORUS (BEAKER) (test code = 1.1 mg/dL 2.3-4.7 LL 604) [id number] 23:00:00 Test Item Value Reference Range Interpretation Comments MAGNESIUM (BEAKER) (test code = 2.1 mg/dL 1.6-2.6 627) CALCIUM, [id number] 22:47:00 Test Item Value Reference Range Interpretation [...] (BEAKER) (test code = 413) BLOOD GAS, [id number] 22:46:00 Test Item Value Reference Range Interpretation [...] (test code = 1819) 21.0 % KETONE, [id number] 22:46:00 Test Item Value Reference Range Interpretation Comments KETONES, BLOOD (BEAKER) (test code 5.6 mmol/L <0.4 H = 1103) RAD, CHEST, 1 VIEW, NON [id number] 22:44:00Reason for exam:->central line Should this be [...] MDReport Verified Date/Time: 08/18/2018 22:44:52 Reading Location: [address] Reading Room POCT-GLUCOSE [id number] 22:34:00 Test Item Value Reference Range Interpretation Comments POC-GLUCOSE METER 259 mg/dL 70-[address] [facility] 6720 (BEAKER) (test code = JOHANNY James [place] 1538) [address] CHLORIDE, RANDOM [id number] 22:28:00 Test Item Value Reference Range Interpretation Comments CHLORIDE URINE (BEAKER) (test code = 88 meq/L 682) Reference Range: No NormalsCREATININE, RANDOM [id number] 22:28:00 Test Item Value Reference Range Interpretation Comments CREATININE URINE (BEAKER) (test 12.5 mg/dL code = 375) Reference Range: No NormalsSODIUM, RANDOM [id number] 22:28:00 Test Item Value Reference Range Interpretation Comments SODIUM URINE (BEAKER) (test code = 143 meq/L 243) Reference Range: No NormalsUREA NITROGEN, RANDOM [id number] 22:28:00 Test Item Value Reference Range Interpretation Comments UREA NITROGEN URINE (BEAKER) (test 154 mg/dL code = 538) Reference Range: No NormalsOSMOLALITY, [id number] 21:53:00 Test Item Value Reference Range Interpretation Comments OSMOLALITY URINE (BEAKER) (test 546 mOsm/kg 40-1400 code = 614) BASIC METABOLIC [id number] 21:07:00 Test Item Value Reference Range Interpretation [...] S NOT APPLICABLE FOR DIALYSIS PATIEN TS. [id number] 21:07:00 Test Item Value Reference Range Interpretation Comments PHOSPHORUS (BEAKER) < mg/dL 2.3-4.7 LL Specimen slightly (test code = 604) hemolyzed POCT-GLUCOSE [id number] 21:06:00 Test Item Value Reference Range Interpretation Comments POC-GLUCOSE METER 381 mg/dL 70-[address] [facility] 6720 (BEAKER) (test code = J[place]ANNY [place] 1538) [address] POCT-GLUCOSE [id number] 21:06:00 Test Item Value Reference Range Interpretation Comments POC-GLUCOSE METER 437 mg/dL 70-[address] [facility] 6720 (BEAKER) (test code = J[place]ANNY [place] 1538) [address] [id number] 21:05:00 Test Item Value Reference Range Interpretation Comments LIPASE (BEAKER) (test code = 749) 138 U/L 8-78 H [id number] 21:05:00 Test Item Value Reference Range Interpretation Comments AMYLASE (BEAKER) (test code = 349) 669 U/L 25-125 H [id number] 21:04:00 Test Item Value Reference Range Interpretation [...] is 2.5-3.5 for patients with mechanical heart valves.[id number] 21:04:00 Test Item Value Reference Range Interpretation Comments MAGNESIUM (BEAKER) 2.2 mg/dL 1.6-2.6 Specimen slightly (test code = 627) hemolyzed BLOOD GAS, [id number] 21:00:00 Test Item Value Reference Range Interpretation [...] (test code = 1819) 21.0 % HEMOGLOBIN [id number] 21:00:00 Test Item Value Reference Range Interpretation Comments HEMOGLOBIN A1C ([facility]) (test code = 15.7 % 4.3-6.1 H 368) CT BRAIN WITHOUT IV CONTRAST - [id number] 20:04:00Reason for exam:- >r/o bleedFINAL REPORT CT [...] YO [facility] Reading Room POCT-GLUCOSE [id number] 19:21:00 Test Item Value Reference Range Interpretation Comments POC-GLUCOSE METER 425 mg/dL 70-[address] [facility] 6720 ([facility]) (test code = JOHANNY James [facility] 1538) [address] [id number] 18:52:00 Test Item Value Reference Range Interpretation Comments PHOSPHORUS (BEJERARDO) (test code = 604) < mg/dL 2.3-4.7 LL If last glucose was less than 500, may do bedside glucose instead of serum glucose.RAPID DRUG SCREEN, [id number] 18:52:00 Test Item Value Reference Range Interpretation Comments BARBITURATE URINE ([facility]) (test Negative Negative code = 725) BENZODIAZEPINE [...] situations. Chain of custody not maintained. Some zrca-zeg-pgliwfd medications, as well as adulterants, may cause inaccurate results. Clinical correlation should be applied. Estella comprehensive drug screen or confirmation of a detected drug may be performed upon request.BASIC METABOLIC [id number] 18:51:00 Test Item Value Reference Range Interpretation [...] may do bedside glucose instead of serum glucose.[id number] 18:48:00 Test Item Value Reference Range Interpretation Comments MAGNESIUM (BEAKER) (test code = 2.1 mg/dL 1.6-2.6 627) If last glucose was less than 500, may do bedside glucose instead of serum glucose.KETONE, [id number] 18:45:00 Test Item Value Reference Range Interpretation Comments KETONES, BLOOD (BEAKER) (test code 5.2 mmol/L <0.4 H = 1103) [id number] 18:43:00 Test Item Value Reference Range Interpretation [...] 514) SOURCE(BEAKER) (test code = 2795) SCREEN, [id number] 18:35:00 Test Item Value Reference Range Interpretation Comments TEST URINE (BEAKER) (test Negative code = 583) BLOOD GAS, [id number] 18:32:00 Test Item Value Reference Range Interpretation [...] (BEAKER) (test code = 1819) 21.0 % [id number] 18:16:00 Test Item Value Reference Range Interpretation Comments FIBRINOGEN LEVEL 331 mg/dl 225-434 Sample clot olga, (BEAKER) (test code = notifi ed RN badge 658) #[id number] for recollect. [id number] 18:16:00 Test Item Value Reference Range Interpretation Comments D-DIMER QUANTITATIVE 0.64 MG/L FEU <0.50 H Sample is clotted, (BEAKER) (test code = notifi ed RN badge 671) #[id number] for recollect.This is a corrected result. Previou [...] of thrombosis is within 95-100% range.POCT- GLUCOSE [id number] 18:05:00 Test Item Value Reference Range Interpretation Comments POC-GLUCOSE METER > mg/dL 70-110 HH OUTSIDE MT ASURING (BEAKER) (test code RANGETES OLGA AT [facility] 6720 = 1538) [facility] [address] [id number] 18:01:00 Test Item Value Reference Range Interpretation Comments PROCALCITONIN (BEAKER) (test code 3.19 ng/mL <0.05 H = 3036) SEPSIS RISK (ng/mL)Low: 0.05-0.50Intermediate: 0.51-2.00High: >=2.01CREATINE KINASE (CK), TOTAL AND [id number] 17:50:00 Test Item Value Reference Range Interpretation Comments CREATINE KINASE TOTAL (BEAKER) 54 U/L 29-200 (test code = 380) CREATINE KINASE-MB (BEAKER) (test 1.6 ng/mL 0.0-6.6 code = 750) CREATINE KINASE-MB INDEX (BEAKER) 3.0 % (test code = 395) CK-MB Reference Range:<6.7 Normal6.7-10.0 Borderline>10.0 AbnormalTROPONIN [id number] 17:50:00 Test Item Value Reference Range Interpretation [...] 0-100 (test code = 700) COMPREHENSIVE METABOLIC [id number] 17:48:00 Test Item Value Reference Range Interpretation [...] S NOT APPLICABLE FOR DIALYSIS PATIEN TS. [id number] 17:47:00 Test Item Value Reference Range Interpretation Comments LIPASE (BEAKER) (test code = 749) 329 U/L 8-78 H [id number] 17:47:00 Test Item Value Reference Range Interpretation Comments AMYLASE (BEAKER) (test code = 349) 563 U/L 25-125 H LACTATE DEHYDROGENASE (LDH)2018-08-18 17:47:00 Test Item Value Reference Range Interpretation Comments LACTATE DEHYDROGENASE (BEAKER) (test 255 U/L 125-220 H code = 635) C-REACTIVE [id number] 17:47:00 Test Item Value Reference Range Interpretation Comments C-REACTIVE PROTEIN (BEAKER) (test 1.35 mg/dL 0.00-0.50 H code = 676) LACTIC ACID, VENOUS, WHOLE [id number] 17:41:00 Test Item Value Reference Range Interpretation Comments LACTATE BLOOD VENOUS 2.0 mmol/L 0.5-2.2 Specime n markedly (2) (BEAKER) (test hemolyzed code = 2872) Effective 03/06/2016: Units/Reference Range ChangeNew: 0.5-2.2 mmol/L Previous: 5- 20 mg/dLPOCT-LACTIC ACID, [id number] 17:13:00 Test Item Value Reference Range Interpretation Comments POC-LACTIC ACID, 1.9 mmol/L 0.4-1.3 H TESTED AT [facility] [address] (BEAKER) [facility] [place] (test code = 2804) [address] POCT-BLOOD GASES, [id number] 17:13:00 Test Item Value Reference Range Interpretation Comments TEMP, CELSIUS-POC 37.0 (BEAKER) (test code = 1834) FIO2-POC (BEAKER) TESTED AT [facility] [address] (test code = 1835) [place] [address] PH, ARTERIAL-POC 7.069 7.350-7.450 LL (BEAKER) (test code = 1836) PCO2, ARTERIAL-POC 10.5 mm Hg 35.0-45.0 LL (BEAKER) (test code = 1837) PO2, ARTERIAL-POC 144.0 mm Hg 80.0-90.0 H (BEAKER) (test code = 1838) SO2, ARTERIAL-POC 98.0 % 96.0-97.0 H (BEAKER) (test code = 1839) HCO3, ARTERIAL-POC 3.0 meq/L 21.0-29.0 LL (BEAKER) (test code = 1840) BASE EXCESS, -27.0 meq/L -2.0-3.0 L ARTERIAL-POC ([facility]) (test code = 1841) [id number] 17:13:00 Test Item Value Reference Range Interpretation Comments POC-SODIUM (BEAKER) 150 meq/L 135-148 H TESTED A [place] [address] (test code = 1542) [facility] [place] [facility] [address] [id number] 17:13:00 Test Item Value Reference Range Interpretation Comments POC-POTASSIUM 2.4 meq/L 3.6-5.5 LL TESTED AT [place] [address] ([facility]) (test code [facility] [address] = 1540) [id number] 17:13:00 Test Item Value Reference Range Interpretation Comments POC-GLUCOSE ([facility]) 685 mg/dL 70-110 HH TESTED AT [place] [address] (test code = 1855) KIMBERLY [facility] [address] POCT-CALCIUM [id number] 17:13:00 Test Item Value Reference Range Interpretation Comments POC-CALCIUM IONIZED 1.24 mmol/L 1.12-1.27 TESTED [place] [address] ([facility]) (test code = [facility] 1536) [address] [id number] 17:13:00 Test Item Value Reference Range Interpretation Comments POC-HEMATOCRIT 40 % 36-45 TESTED AT [place] [address] ([facility]) (test code = [facility] [address] 1857) [id number] 17:13:00 Test Item Value Reference Range Interpretation Comments POC-HEMOGLOBIN 13.6 g/dL 12.0-15.0 TESTED AT [place] [address] ([facility]) (test code [facility] = 1856) 34031MLTUSC AT [place] [address] KIMBERLY MUELLER [facility], [place] [address] POCT-GLUCOSE [id number] 17:07:00 Test Item Value Reference Range Interpretation Comments POC-GLUCOSE METER > mg/dL 70-110 HH OUTSIDE [place] [facility] [facility] (test code [facility] [place] AT [place] [address] = 1538) [facility] [address] Notes Date/Time Note Provider Source 2023-05-29 Formatting of this note might be differe nt from the original. Katherin Leijau [facility] 15:36:01-00:00 Attempted to call patient bu t no answer so LVM to schedule with her Endo dr to discuss her insulin. Also sent her a message via [facility]. Katherin Osiel NAJMA Rizo 05/29/2023 3:37 PM Electronically signed by Katherin Rizo at 3:37 PM CDT 2023-05-29 [facility] 10:02:49-00:00 She will need to contact end o for any dose adjustments to her sliding scale insulin. She ran out of medicine thus sent in regimen endo had her on to prevent being out of her insulin since she is type 1 diabetic. Recommend following up with her endocr inologist. 2023-05-26 Formatting of this note might be differe nt from the original. Alexandria Sequeira RN [facility] 16:48:56-00:00 Please review and advise. Electronically signed by Alexandria Sequeira RN at 0 05/26/2023 4:49 PM CDT 2023-05-26 Formatting of this note might be differe nt from the original. Prabha Menjivar [facility] 16:42:35-00:00 [facility] is needing the max dose on the insulin aspart U-100 (NOVOLOG FLEXPEN U-100 INSULIN) 100 unit/mL (3 mL) injection Electronically signed by Prabha Menjivar at 4:43 PM T 2023-05-23 Formatting of this note is different from the or iginal. [facility] 14:00:00-00:00 Images from the original note were not included. Venipuncture collection perf ormed by clean technique on the right anticubitus. Total of 1 attempts were made. Slight pressure and a bandage/dressing were applied to the site(s). The patient experienced no complications. The follow ing specimens were processed according to instructions and sent to [facility] laboratories per lab order on 05/23/2023: LT BLUE SST 1 RED LAV 2 PPT DK GREEN (LiHep) DK GREEN (SodH) PABLO DK BLUE (K2) DK BLUE (S) ACD Blood Culture NIPT/NTD Patient has been identified by and name and was provided with cup, antiseptic towelette, and clean catch instructions. 1 urine specimen(s) sent. Unpreserved 1 Urine Culture Aptima tube Other urine Electronically signed by Ember Boo MA a t 05/23/2023 2:29 PM CDT 2023-05-23 Formatting of this note might be differe nt from the original. Rani Estrada [facility] 08:51:18-00:00 Attempt to contact , no answer left a voicemail to call back to schedule an appt with [facility]. Electronically signed by Rani Estrada at 0 05/23/2023 8:52 AM T 2023-05-22 Formatting of this note might be differe nt from the original. Destini Sales LVN [facility] 14:04:40-00:00 Unable to get patient in asa p due to limited schedule with endo but will route to PSS to see if availability with one of our PCP's in the next few days. 2023-05-22 Formatting of this note might be differe nt from the original. Mily Cameron [facility] 10:36:14-00:00 Pt says she was just dc from hosp they want her to have fu with endo sarah, she also need refill on TRESIBA also thinks she need new strips says she keeps getting error when she tries to use them think it the strips not meter Electronically signed by Mily Cameron at 10:38 AM CDT 2020-12-03 [facility] 07:27:00-00:[address] [facility]) OB Postpart Progr Note REPORT#:[id number] REPORT STATUS: Signed DATE:12/03/20 TIME: 726 PATIENT: TASHI MOSQUERA UNIT #: [id number] ROOM/BED: [address] : 94 AGE: 25 SEX: F ATTEND: Natalie Corrales MD ADM AUTHOR: Yvette Ni MD * ALL edits or amendments must be made on the [employer]/computer document * Subjective Subjective Admission EGA: Weeks: [...] Documented: Result Date Time B/P 112/77 12/03 0338 Temp 98.8 12/03 0338 Pulse 90 12/03 0338 Resp 20 12/03 0338 Pulse Ox 97 12/01 0748 B/P Mean [...] control, imporved FBS on dedcreased dose of TENTER FRAME BACK TENDER H at bedtime ( no nocturnal hypoglycemia), yesterday patient did not receive NPH in am, BG's unaccept ably high. Will establish ane richie of insulin NPH 20 units am/pm, humalog 10 units ac meals Plan: routine care Electronically Signed by Yvette Ni MD on at 0729 RPT #:[id number] END OF REPORT 2020[facility]12[facility]02 [facility] [facility] OB Postpart Progr Note REPORT#:[id number] REPORT STATUS: Signed DATE:12/02/20 TIME: 1647 PATIENT: TASHI MOSQUERA UNIT #: [id number] ROOM/BED: [facility]-A : 94 AGE: 25 SEX: F ATTEND: Natalie Corrales MD ADM AUTHOR: Yvette Ni MD * ALL edits or amendments must be made on the [employer]/computer document * Subjective Subjective Admission EGA: Weeks: [...] 102-111/70-76 Last Documented: Result Date Time B/P 103/70 12/02 0805 Temp 98.1 12/02 0805 Pulse [...] mg/dL) 206 H 200 H 64 L 186 H Diagnosis, Assessment Plan Diagnosis, Assessment Plan Assessment: nml progress, diabetes in suboptimal control Plan: routine care, increase insulin Electronically Signed by Yvette Ni MD on at 1657 RPT #:[id number] END OF REPORT 2020-12-01 [facility] 17:51:00-00:[address] [facility] ([facility]) OB Disch REPORT#:[id number] REPORT STATUS: Signed DATE:12/01/20 TIME: 175 PATIENT: TASHI MOSQUERA UNIT #: [id number] ROOM/BED: [facility]-A : 94 AGE: 25 SEX: F ATTEND: Natalie Corrales MD ADM AUTHOR: Natalie Corrales MD * ALL edits or amendments must be made on the [employer]/Treater document * Subjective Subjective Patient reports: Patient reports: Yes: normal lochia, pain management effective, tolerating po well, voiding well, flatus. No: complaints. Objective General VS: Vital Signs Date Temp Pulse Resp B/P B/P Mean Pulse Ox FiO2 11/30-12/01 97.6-98.4 68-99 18-20 95-108/61-72 97 Last Documented: Result Date Time B/P 108/72 12/01 1605 Temp 98.2 12/01 1605 Pulse [...] Natalie Corrales MD on 12/01 at 1752 RPT #:[id number] END OF REPORT 2020-12-01 [id number] [facility] 06:35:00-00:00 [address] [place], [place] [address] PATIENT NAME: TASHI MOSQUERA ADMIT DATE: 11/29/20 ACCOUNT NO: [id number] ROOM NO: F.2030 AGE: 25 SEX: F ADMITTING PHYSICIAN: Natalie Corrales MD ATTENDING PHYSICIAN: Natalie Corrales MD OPERATION DATE: 11/30/2020 PREOPERATIVE DIAGNOSES: 1. Intrauterine at 36+ weeks. 2. Uncontrolled type 1 diabetes mellitus. 3. Nonreassuring heart rate, [facility]. POSTOPERATIVE DIAGNOSES: 1. Intrauterine at 36+ weeks. 2. Uncontrolled type 1 diabetes mellitus. 3. Nonreassuring heart rate, remote from d elivery. PROCEDURE: Primary low transverse secti on via Pfannenstiel. SURGEON: Natalie Corrales MD. CORE STRIPPER: Annika Cameron MD (R), SURGERY SCHEDULER resident. COMPLICATIONS: None. ESTIMATED BLOOD LOSS: 750 mL. INTRAVENOUS FLUIDS: 2000 mL LR. URINE OUTPUT: 250 mL clear at the end of the pro cedure. FINDINGS: Female in cephalic presentation , Apgars 8 and [...] midline and extended laterall y with the telephone operator receptionist's fingers and amniotomy was done with clear fluid obtained . The head was delivered atraumatically followed by t he rest of the body. Nose and mouth were suctioned. Cord clamped and cut. Baby handed off to the [facility] baby care team. Placenta was delivered spontaneously. [...] Cord gases were sent. Dictated By: Natalie oCrrales MD WT: OP:FCLIFF/FELICIA/SONIA Conf#: [id number]/DID#: [id number] Authenticated by Natalie Corrales MD On 12/06/2020 1 2:17:45 AM Electronically Signed by Natalie Corrales MD on 01/21 at 0018 PATIENT NAME: TASHI MOSQUERA 64 2020-11-30 [facility] 18:19:00-00:[address] [facility] ([facility]) OB Admission / H P REPORT#:[id number] REPORT STATUS: Signed DATE:11/30/20 TIME: 1818 PATIENT: TASHI MOSQUERA UNIT #: [id number] ROOM/BED: [facility] : 94 AGE: 25 SEX: F ATTEND: Natalie Corrales MD ADM AUTHOR: Annika Velarde R2 * ALL edits or amendments must be made on the [employer]/computer document * OB History HPI: 25 y/o [...] history: diabetes mellitus Past surgical history: denies H Family history MOTHER (Diabetes mellitus). Allergies Coded [...] abnormal FHR pattern Plan: at 1829 RPT #:[id number] END OF REPORT 2020-11-30 [facility] 18:19:00-00:[address] [facility] ([facility]) OB Admission / H P REPORT#:[id number] REPORT STATUS: Signed DATE:11/30/20 TIME: 1818 PATIENT: TASHI MOSQUERA UNIT #: [id number] ROOM/BED: 2030-A : 94 AGE: 25 SEX: F ATTEND: Natalie Corrales MD ADM AUTHOR: Annika Velarde MD R2 * ALL edits or amendments must be made on the [employer]/computer document * OB History HPI: 25 y/o [...] Corrales MD on 12/05 at 1942 RPT #:[id number] END OF REPORT 2020-11-26 [facility] 12:07:00-00:[address] [facility]) OB Disch Undelivered REPORT#:[id number] REPORT STATUS: Signed DATE:11/26/20 TIME: 1207 PATIENT: TASHI MOSQUERA UNIT #: [id number] ROOM/BED: [address] : 94 AGE: 25 SEX: F ATTEND: Natalie Corrales MD ADM AUTHOR: Natalie Corrales MD * ALL edits or amendments must be made on the [employer]/computer document * Subjective Subjective Patient reports: Patient [...] WEIGHT: Weight (lb): Weight (oz): Weight (kg): 92.554577 Physical Exam FHR evaluation: Baby A baseline: [...] Corrales MD on 11/26 at 1214 RPT #:[id number] END OF REPORT 2020-11-25 [facility] 20:26:00-00:[address] [facility] ([facility]) OB Antepartum Prog Note REPORT#:[id number] REPORT STATUS: Signed DATE:11/25/20 TIME: 2025 PATIENT: TASHI MOSQUERA UNIT #: [id number] ROOM/BED: 5066-A : 94 AGE: 25 SEX: F ATTEND: Natalie Corrales MD ADM AUTHOR: Natalie Corrales MD * ALL edits or amendments must be made on the [employer]/Treater document * Subjective Subjective Patient reports: Patient reports: Yes normal movement, No no complaints, No abdominal pain, No vaginal bleeding, No leaking fluid, No contractions Objective VS: Last Documented: Result Date Time B/P Mean 84.0 11/25 0945 Pulse Ox 98 11/25 0945 B/P 108/71 11/25 0945 Pulse 100 11/25 0945 Resp 16 11/25 0945 Temp 98.1 11/24 1655 Vital Signs Date Temp Pulse Resp B/P B/P Mean Pulse Ox FiO2 11/24-11/25 100-112 16 108-109/71-76 84.0-88.0 97-98 PATIENT WEIGHT: Weight (lb): Weight (oz): Weight (kg): 92.052923 Procedures: non stress test HEENT: normocephalic w/o [...] Corrales MD on 11/25 at 2026 RPT #:[id number] END OF REPORT 2020-11-24 [facility] 14:34:00-00:[address] [facility] ([facility]) OB Antepartum Prog Note REPORT#:[id number] REPORT STATUS: Signed DATE:11/24/20 TIME: 1434 PATIENT: TASHI MOSQUERA UNIT #: [id number] ROOM/BED: [facility]-A : 94 AGE: 25 SEX: F ATTEND: Natalie Corrales MD ADM AUTHOR: Natalie Corrales MD * ALL edits or amendments must be made on the [employer]/Treater document * Subjective Subjective Patient reports: Patient reports: Yes normal movement, No no complaints, No abdominal pain, No vaginal bleeding, No leaking fluid, No contractions Objective VS: Last Documented: Result Date Time B/P Mean 90.0 11/24 0909 Pulse Ox 99 11/24 0909 B/P 109/81 11/24 0909 Temp 97.8 11/24 0909 Pulse 99 11/24 0909 Resp 14 11/24 0909 Vital Signs Date Temp Pulse Resp B/P B/P Mean Pulse Ox FiO2 11/23-11/24 97.8 94-99 14-18 109-117/71-81 88.0 -90.0 97-99 PATIENT WEIGHT: Weight (lb): Weight (oz): Weight (kg): 92.028719 Procedures: non stress test HEENT: normocephalic w/o [...] dmin, surveillance, diabetes contol, IOL on Friday, adjut insu parul Electronically Signed by Natalie Corrales MD on 11/24 at 1435 RPT #:[id number] END OF REPORT 2020-11-23 [facility] 14:30:00-00:[address] [facility] ([facility]) OB Antepartum Prog Note REPORT#:[id number] REPORT STATUS: Signed DATE:11/23/20 TIME: 1430 PATIENT: TASHI MOSQUERA UNIT #: [id number] ROOM/BED: [address] : 94 AGE: 25 SEX: F ATTEND: Natalie Corrales MD ADM AUTHOR: Natalie Corrales MD * ALL edits or amendments must be made on the [employer]/computer document * Subjective Subjective Patient reports: Patient [...] Corrales MD on 11/23 at 1432 RPT #:[id number] END OF REPORT 2020-11-22 [facility] 17:51:00-00:[address] [facility]) OB Admission / H P REPORT#:[id number] REPORT STATUS: Signed DATE:11/22/20 TIME: 175 PATIENT: TASHI MOSQUERA UNIT #: [id number] ROOM/BED: [facility] : 94 AGE: 25 SEX: F ATTEND: Natalie Corrales MD ADM AUTHOR: Natalie Corrales MD * ALL edits or amendments must be made on the [employer]/computer document * OB History Chief complaint: i [...] WEIGHT: Weight (lb): Weight (oz): Weight (kg): 92.318213 Physical Exam HEENT: normocephalic w/o injury Cardiac: [...] Corrales MD on 11/22 at 1801 RPT #:[id number] END OF REPORT 2020-09-28 [facility] 04:51:00-00:00 [facility] ([facility]) EMERGENCY PROVIDER REPORT REPORT#:[id number] REPORT STATUS: Signed DATE:09/28/20 TIME: 0451 PATIENT: TASHI MOSQUERA UNIT #: [id number] ROOM/BED: AGE: 25 SEX: F PCP PHYS: Natalie Corrales MD SERVICE AUTHOR: Cipriano Alex III, MD * ALL edits or amendments must be made on the [employer]/computer document * TONY History Nursing Documentation Review [...] She recovered and was discharged from the [facility] yesterday. She had been advised to stay in the hospital as this was her second admissio n and treatment for DKA. care with Dr. Corrales. Claims normal OB USG during her pregnan cy. PMH Allergies Allergy Severity Reaction Updated Coded No Known Allergies 11/26/20 OB Primagravida PMH Type 1 IDDM, DKA PSH Denied MEDS Insulin FMH Positive for diabetes SH No smoke, no etoh, no drugs ROS No fever, no cough, no sore throat, no shortness of breath, no chest pain, no ab pain, not daniela, not leaking amniotic fluid, en dorses positive movements. Family history MOTHER (Diabetes mellitus). [...] pH (5 - 9) 5.0 Ur Specific [place] (1.001 - 1.035) 1.027 Urine Protein (NEG) [...] Recent Impressions: ULTRASOUND - US LTD 09/28 515 Report Impression - Status: SIGNED Entered: 09/28/2020608 IMPRESSION: Single live intrauterine at 27 weeks [...] pH (5 - 9) 5.0 Ur Specific [place] (1.001 - 1.035) 1.027 Urine Protein (NEG) [...] Recent Impressions: ULTRASOUND - US LTD 09/28 515 Report Impression - Status: SIGNED Entered: 09/28/2020608 IMPRESSION: Single live intrauterine at 27 weeks [...] her results of her testing. I also spok e with Dr Ni. Cleared for discharge. Labor precautions. jr Electronically Signed by Cipriano Alex III, MD on at 1156 RPT #:[id number] END OF REPORT 2020-09-27 [facility] 17:35:00-00:[address] [facility] ([facility]) OB Disch Undelivered REPORT#:[id number] REPORT STATUS: Signed DATE:09/27/20 TIME: 1735 PATIENT: TASHI MOSQUERA UNIT #: [id number] ROOM/BED: [address] : 94 AGE: 25 SEX: F ATTEND: Mauricio Corrales MD ADM AUTHOR: Natalie Corrales MD * ALL edits or amendments must be made on the [employer]/computer document * Subjective Subjective Patient reports: Patient [...] saloni Winters her RN that patient left [facility] course: insulin drip was started per [...] Corrales MD on 09/27 at 1742 RPT #:[id number] END OF REPORT 2020-09-27 [facility] 17:35:00-00:00 [facility] ([facility]) OB Disch Undelivered REPORT#:[id number] REPORT STATUS: Signed DATE:09/27/20 TIME: 1735 PATIENT: TASHI MOSQUERA UNIT #: [id number] ROOM/BED: [facility] : 94 AGE: 25 SEX: F ATTEND: Natalie Corrales MD ADM AUTHOR: Natalie Corrales MD * ALL edits or amendments must be made on the [employer]/computer document * See Addendum Subjective Subjective Patient [...] B/P B/P Mean Pulse Ox FiO 2 09/26-09/27 97.7-98.4 85-121 14-28 93-122/55-76 71-90 97-100 21 Patient Weight Weight (lb): 182 Weight (oz): 5.16 Weight (kg): 82.700 Physical Exam HEENT: normocephalic w/o injury Neuro: Exam: alert, oriented x3, normal speech Abdomen: gravid, soft, no abnormal tenderness Discharge Undelivered General Assessment: Patient is a 25 year old G 1 [facility] for diabetic ketoacidosis Plan: she asked to leave and i advised her to stay to monitor sugars and BP, risks discussed. late afternoon, I recevied a notice f martell Winters her RN that patient left A [...] MD on 09/27 at 1742 Addendum 1: 09/27/201747 by Natalie Corrales MD NST: BASELINE 140, MOD VARIABILITY, ACCELS 10 X 10, CATEG I Electronically Signed by Natalie Corrales MD on 09/27 at 1748 RPT #:[id number] END OF REPORT 2020-09-26 [facility] 18:37:00-00:00 [facility] ([facility]) Clinical Note REPORT#:[id number] REPORT STATUS: Signed DATE:09/26/20 TIME: 1836 PATIENT: TASHI MOSQUERA UNIT #: [id number] ROOM/BED: [address] : 94 AGE: 25 SEX: F ATTEND: Natalie Corrales MD ADM AUTHOR: Natalie Corrales MD * ALL edits or amendments must be made on the [employer]/Treater document * Clinical Note Note: I was present and saw her wi th Dr Kerr. I agree with her note and plan, I concur with the plan of care. Electronically Signed by Natalie Corrales MD on 09/26 at 1839 RPT #:[id number] END OF REPORT 2020-09-26 [facility] 15:39:00-00:00 [facility] ([facility]) OB Admission / H P REPORT#:[id number] REPORT STATUS: Signed DATE:09/26/20 TIME: 1539 PATIENT: TASHI MOSQUERA UNIT #: [id number] ROOM/BED: [address] : 94 AGE: 25 SEX: F ATTEND: Natalie Corrales MD ADM AUTHOR: Carol Kerr * ALL edits or amendments must be made on the [employer]/Treater document * OB History Chief complaint: DKA [...] admission in 2019 Past surgical history: denies [facility] Social history: no alcohol use, no tobacco [...] 09/26 1433 O2 Delivery Room air 09/26 143 Temp 36.4 09/26 143 Vital Signs Date Temp Pulse Resp B/P [...] IVF, surveillance, DVT prophylaxis at 1846 RPT #:[id number] END OF REPORT 2020-09-26 [facility] [facility]) OB Admission / H P REPORT#:[id number] REPORT STATUS: Signed DATE:09/26/20 TIME: 1539 PATIENT: TASHI MOSQUERA UNIT #: [id number] ROOM/BED: [address] : 94 AGE: 25 SEX: F ATTEND: Natalie Corrales MD ADM AUTHOR: Carol Kerr DO R2 * ALL edits or amendments must be made on the el [employer]/computer document * OB History Chief complaint: DKA [...] Corrales MD on 10/07 at 1536 RPT #:[id number] END OF REPORT 2020-08-05 [facility] 12:12:00-00:[address] [facility] ([facility]) OB Antepartum Prog Note REPORT#:[id number] REPORT STATUS: Signed DATE:08/05/20 TIME: 1212 PATIENT: TASHI MOSQUERA UNIT #: [id number] ROOM/BED: [address] : 94 AGE: 25 SEX: F ATTEND: Natalie Corrales MD ADM AUTHOR: Mauricio Aguillon MD * ALL edits or amendments must be made on the [employer]/computer document * Subjective Subjective Admission EGA: Weeks: [...] 21.0 21.0 Laboratory Tests 08/05 08/05 08/05 1104 0746 0112 Chemistry Sodium (135 - 145 mEq/L) [...] % (Auto) (14.3 - 34.3 %) 32.2 Ponce % (Auto) (5.1 - 10.4 %) 5.2 Eos % (Auto) (0.1 - 3.0 %) 3.3 H Baso % (Auto) (0.1 - 1.0 %) 0.1 Neut # (Auto) (K/mm3) 4.2 Lymph # (Auto) (K/mm3) 2.3 Ponce # (Auto) (K/mm3) 0.4 Eos # (Auto) (K/mm3) 0.23 Baso # (Auto) (K/mm3) 0.0 Laboratory Tests 08/05 112 Toxicology Acetone, Qual (NEGATIVE) NEGATIVE Laboratory Tests 08/05 128 Urines Urine Color (YELLOW) STRAW Urine Appearance (CLEAR) CLEAR Urine pH (5 - 9) 6.0 Ur Specific [place] (1.001 - 1.035) 1.022 Urine Protein (NEG) [...] pH (5 - 9) 6.0 Ur Specific [place] (1.001 - 1.035) 1.022 Urine Protein (NEG) [...] % (Auto) (14.3 - 34.3 %) 32.2 Ponce % (Auto) (5.1 - 10.4 %) 5.2 Eos % (Auto) (0.1 - 3.0 %) 3.3 H Baso % (Auto) (0.1 - 1.0 %) 0.1 Neut # (Auto) (K/mm3) 4.2 Lymph # (Auto) (K/mm3) 2.3 Ponce # (Auto) (K/mm3) 0.4 Eos # (Auto) [...] Aguillon MD on 01/20 at 1213 RPT #:[id number] END OF REPORT 2020-08-05 [facility] 05:15:00-00:[address] [facility]) OB Admission / H P REPORT#:[id number] REPORT STATUS: Signed DATE:08/05/20 TIME: 05 PATIENT: TASHI MOSQUERA UNIT #: [id number] ROOM/BED: [address] : 94 AGE: 25 SEX: F ATTEND: Natalie Corrales MD ADM AUTHOR: Filomena Wesley MD * ALL edits or amendments must be made on the [employer]/computer document * OB History Chief complaint: elevated [...] and potassium an d was transfered to [facility] for evaluation. history: : 1 Living [...] Documented: Result Date Time Pulse Ox 99 08/058 B/P 109/72 08/058 B/P Mean 84.7 08/05 458 Temp 98.4 08/05 458 Pulse 92 08/058 Resp 18 08/05 045 O2 Delivery Room air 08/05 0056 Vital Signs Date Temp Pulse Resp B/P B/P Mean Pulse Ox FiO 2 08/05 97.6-98.4 90-92 18 107-121/66-81 80-94 99 [...] % (Auto) (14.3 - 34.3 %) 32.2 Ponce % (Auto) (5.1 - 10.4 %) 5.2 Eos % (Auto) (0.1 - 3.0 %) 3.3 H Baso % (Auto) (0.1 - 1.0 %) 0.1 Neut # (Auto) (K/mm3) 4.2 Lymph # (Auto) (K/mm3) 2.3 Ponce # (Auto) (K/mm3) 0.4 Eos # (Auto) (K/mm3) 0.23 Baso # (Auto) (K/mm3) 0.0 Toxicology Acetone, Qual (NEGATIVE) NEGATIVE Urines Urine Color (YELLOW) STRAW Urine Appearance (CLEAR) CLEAR Urine pH (5 - 9) 6.0 Ur Specific [place] (1.001 - 1.035) 1.022 Urine Protein (NEG) [...] gluc. -Will admit per recommendation of Dr Aguiloln to further observe and control gluc. Home insulin ordered as per her ty pical regimen and SSI ordered to cover >150 - status- Normal u/s with low lying placent a Electronically Signed by Filomena Wesley MD on 01/20 at 0526 RPT #:[id number] END OF REPORT 2020-08-05 [facility] 03:10:00-00:00 [facility] HOSPITAL) EMERGENCY PROVIDER REPORT REPORT#:[id number] REPORT STATUS: Signed DATE:08/05/20 TIME: 309 PATIENT: TASHI MOSQUERA UNIT #: [id number] ROOM/BED: AGE: 25 SEX: F PCP PHYS: No Primary or Family Ph ysician SERVICE AUTHOR: Shira Arredondo MD * ALL edits or amendments must be made on the [employer]/computer document * HPI-General Illness Free Text HPI Notes Free Text HPI Notes 25-year-old female at 19 weeks 5 days gesta tional age with a history of type 1 diabetes transferred from [facility] emergency room for evaluation of hyperglycemia. She was found to have an initial blood glucose level of 367. She received 2 L of NS and 20 mEq of oral potass ium prior to transfer. Patient states that she noticed that her blood s ugar levels have been fluctuating to elevated levels over the past 1 w [place] despite her prescribed insulin use. Patient has [...] Diagnostics Lab Results Interpretation Results Laboratory Tests 08/05/20111: [Embedded Image Not Available] Laboratory Tests: 08/057 0211 0128 0112 Blood Gas Oximetry (% [...] % (Auto) (14.3 - 34.3 %) 32.2 Ponce % (Auto) (5.1 - 10.4 %) 5.2 Eos % (Auto) (0.1 - 3.0 %) 3.3 H Baso % (Auto) (0.1 - 1.0 %) 0.1 Neut # (Auto) (K/mm3) 4.2 Lymph # (Auto) (K/mm3) 2.3 Ponce # (Auto) (K/mm3) 0.4 Eos # (Auto) (K/mm3) 0.23 Baso # (Auto) (K/mm3) 0.0 Toxicology Acetone, Qual (NEGATIVE) NEGATIVE Urines Urine Color (YELLOW) STRAW Urine Appearance (CLEAR) CLEAR Urine pH (5 - 9) 6.0 Ur Specific [place] (1.001 - 1.035) 1.022 Urine Protein (NEG) [...] PRN PRN 08/05 0330 AC PO 08/06 323 Electrolytic, Caloric, And Varinder Sig/Snehal Start time Last Medication Dose Route Stop Time Status Admin Potassium Chloride 20 MEQ X1ED STA 08/05 0159 D C 08/05 PO 08/05 200 0208 Sodium Chloride 1,000 ML X1ED STA 08/05 0159 DC 08/05 IV 08/05 020 0207 Gastrointestinal Drugs Sig/Snehal Start time Last Medication Dose Route Stop Time Status Admin Ondansetron HCl 4 MG Q6H PRN PRN 08/05 033 AC IV 08/06 323 Patient Discharge Departure Vital Signs/Condition Vital Signs First Documented: Result Date Time Pulse Ox 100 08/05 0056 B/P 121/81 08/05 0056 B/P Mean 94 08/05 0056 O2 Delivery Room air 08/05 005 Temp 98.4 08/05 005 Pulse 90 08/05 0056 Resp 18 08/05 0056 Last Documented: Result Date Time Pulse Ox 100 08/05 0211 B/P 109/66 08/05 0211 B/P Mean 80 08/05 0211 Pulse 90 08/05 0211 Resp 18 08/05 0211 O2 Delivery Room air 08/05 005 Temp 98.4 08/05 0056 All vital signs available at the time of this en try have been reviewed. Condition Stable, Improved Clinical Impression Clinical Impression Primary Impression: Hyperglycemia Secondary Impressions: Second trimester pregnanc y Time of Impression 320 Disposition Decision Admit Admit Physician Name Natalie Corrales MD Admit Physician SURGERY SCHEDULER, Long Distance Billing Operator Physician Request Time 321 Request Date 08/05/20 [...] communicated with the staff or medical p percy taking over this patient's care. at 0339 RPT #:[id number] END OF REPORT
[2023-07-11 20:59] LABS: Absolute Lymphocytes (CBC) 1.7 K/uL (0.7-4.9); Hematocrit 42.7 % (36.0-45.0); Lymphocytes % 21.7 % (15.3-44.8); MCV 90.9 fL (80-100); MPV 7.9 fL (7.6-11.3); Platelets 309 thou/uL (152-406)
[2023-07-11 21:02] LABS: Specific Gravity 1.023 (1.005-1.030)
[2023-07-11 21:05] LABS: Specific Gravity 1.023 (1.005-1.030); Urine Bacteria None Seen /HPF (<20); Urine Bilirubin NEGATIVE (Negative); Urine Blood Negative (Negative); Urine Clarity Clear (Clear); Urine Color Colorless (Yellow); Urine Glucose 4+ (Over) (Negative); Urine Mucus Slight /HPF (None Seen); Urine Protein NEGATIVE (Negative); Urine RBC <5 /HPF (None Seen); Urine Urobilinogen Normal (Normal)
[2023-07-11 21:21] LABS: Albumin 3.5 g/dL (3.4-5.0); Bilirubin Total 0.7 mg/dL (0.2-1.0); Magnesium 1.7 mg/dL (1.6-2.4); Potassium 3.6 mEq/L (3.5-5.1); Protein, Total 7.6 g/dL (6.4-8.2)
[2023-07-11 21:53] LABS: Arterial Blood Carboxyhemoglob 1.3 % (0-1.5); Blood Gas Oxyhemoglobin 64.8 % (94-97); Blood O2 Saturation 66.9 % (92-98.5)
--- NOTE | 2023-07-11 22:01 | EDPHYS ---
Physician Documentation [facility] Name: Rosalie Parekh Age: 28 yrs Sex: Female : 1995 Arrival Date: 07/11/2023 Time: 20:30 Bed 7 Private MD: ED Physician Fadi Alvarenga HPI: 07/11 21:02 This 28 yrs old Female presents to ER via EMS with complaints of Hyperglycemia. rt 21:02 Patient presents to the ED with hyperglycemia. She is a type I diabetic. She states rt that her blood glucometer read high, she administered 15 units of subcutaneous insulin. She reports feeling mildly short of breath, nauseated. Denies other acute complaints this time. Symptoms are moderate in severity, no other aggravating elevating factors.. 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 - Social history:: Smoking status: Reported history of juuling and/or vaping. - Family history:: not pertinent. ROS: 21:02 Constitutional: Negative for fever, chills, and weight loss, Cardiovascular: Negative rt for chest pain, palpitations, and edema, MS/Extremity: Negative for injury and deformity, Skin: Negative for injury, rash, and discoloration, Neuro: Negative for headache, weakness, numbness, tingling, and seizure, Psych: Negative for depression, anxiety, suicide ideation, homicidal ideation, and hallucinations. 21:02 Respiratory: Positive for shortness of breath, Negative for cough. 21:02 Abdomen/GI: Positive for nausea, Negative for abdominal pain, vomiting. Exam: 21:02 Constitutional: This is a well developed, well nourished patient who is awake, alert, rt and in no acute distress. Head/Face: Normocephalic, atraumatic. Chest/axilla: Normal chest wall appearance and motion. Nontender with no deformity. No lesions are appreciated. Cardiovascular: Regular rate and rhythm with a normal S1 and S2. No gallops, murmurs, or rubs. Normal PMI, no JVD. No pulse deficits. Respiratory: Lungs have equal breath sounds bilaterally, clear to auscultation and percussion. No rales, rhonchi or wheezes noted. No increased work of breathing, no retractions or nasal flaring. Abdomen/GI: Soft, non-tender, with normal bowel sounds. No distension or tympany. No guarding or rebound. No evidence of tenderness throughout. Skin: Warm, dry with normal turgor. Normal color with no rashes, no lesions, and no evidence of cellulitis. MS/ Extremity: Pulses equal, no cyanosis. Neurovascular intact. Full, normal range of motion. Neuro: Awake and alert, GCS 15, oriented to person, place, time, and situation. Cranial nerves II-XII grossly intact. Motor strength 5/5 in all extremities. Sensory grossly intact. Cerebellar exam normal. Normal gait. Psych: Awake, alert, with orientation to person, place and time. Behavior, mood, and affect are within normal limits. Vital Signs: 20:39 BP 114 / 73; Pulse 90; Resp 28; Temp 98.4; Pulse Ox 98% ; vc1 20:43 Weight 72.57 kg; Height 5 ft. 2 in. ; vc1 21:25 BP 105 / 72; Pulse 91; Resp 19; Pulse Ox 99% ; vc1 22:00 BP 109 / 84; Pulse 106; Resp 21; Pulse Ox 100% ; vc1 20:43 Body Mass Index 29.26 (72.57 kg, 157.48 cm) vc1 MDM: 20:39 Patient medically screened. rt 23:26 Differential Diagnosis Hyperglycemia, UTI, DKA. Data reviewed: vital signs, nurses rt notes, lab test result(s). Consideration of Admission/Observation Patient was admitted/placed on observation. Management of patient was discussed with the following: Hospitalist: Agrees to admit. I considered the following discharge prescriptions or medication management in the emergency department Medications were administered in the Emergency Department. See MAR. Counseling: I had a detailed discussion with the patient and/or guardian regarding the historical points, exam findings, and any diagnostic results supporting the discharge/admit diagnosis, lab results, the need for further work-up and treatment in the hospital. Response to treatment: the patient's symptoms have markedly improved after treatment. 07/11 20:41 Order name: CBC with Diff; Complete Time: 21:42 rt 07/11 20:41 Order name: CMP; Complete Time: 21:42 rt 07/11 20:41 Order name: Lipase; Complete Time: 21:42 rt 07/11 20:41 Order name: UAM; Complete Time: 21:42 rt 07/11 20:41 Order name: PREGU; Complete Time: 21:42 rt 07/11 20:41 Order name: ABG: VBG only; Complete Time: 22:06 rt 07/11 20:41 Order name: Magnesium; Complete Time: 21:42 rt 07/11 22:15 Order name: Basic Metabolic Panel EDMS 07/11 22:15 Order name: Basic Metabolic Panel EDMS 07/11 22:15 Order name: Basic Metabolic Panel EDMS 07/11 22:15 Order name: Basic Metabolic Panel EDMS 07/11 22:15 Order name: Magnesium EDMS 07/11 22:15 Order name: Magnesium EDMS 07/11 22:15 Order name: Magnesium EDMS 07/11 22:15 Order name: Magnesium EDMS 07/11 22:18 Order name: CBC with Automated Diff EDMS 07/11 22:30 Order name: Glucose, Ancillary Testing EDMS 07/11 22:18 Order name: NPO EDMS Administered Medications: 22:25 Drug: Insulin Drip - (Insulin Regular Human IVP 100 units, NS 0.9% IV 100 ml) vc1 {Co-Signature: as6 (Armin Ortega RN).} Route: IV; Rate: calculated rate; Site: left antecubital; 22:33 Drug: NS 0.9% IV 1000 ml Route: IV; Rate: 1 bolus; Site: left antecubital; vc1 22:42 Drug: Acetaminophen PO 1000 mg Route: PO; vc1 Disposition Summary: 07/11/23 22:01 Hospitalization Ordered Hospitalization Status: Inpatient Admission rt Provider: Guzman Patterson rt Location: Intensive Care Unit rt Condition: Stable rt Problem: an acute exacerbation rt Symptoms: have improved rt Bed/Room Type: Standard rt Room Assignment: 1-(07/11/23 22:18) mw Diagnosis - Diabetic ketoacidosis rt Forms: - Medication Reconciliation Form rt - SBAR form rt - Leadership Thank You Letter rt Critical care time excluding procedures: 23:26 Critical care time: Bedside Care: 30 minutes, Consultation: 5 minutes. Total time: 35 rt minutes Signatures: Dispatcher [employer] Malaika Fulton RN RN mw Radha Heredia RN RN vc1 Fadi Alvarenga MD MD rt Beba Ortega, COMMUNITY PRODUCT SPECIALIST COMMUNITY PRODUCT SPECIALIST cm12 Armin Ortega RN as6 Corrections: (The following items were deleted from the chart) 22:18 22:01 rt dyllan
--- NOTE | 2023-07-11 22:01 | ER ---
Nurse's Notes [facility] Name: Rosalie Parekh Age: 28 yrs Sex: Female : 1995 Arrival Date: 07/11/2023 Time: 20:30 Bed 7 Private MD: Diagnosis: Diabetic ketoacidosis Presentation: 07/11 20:39 Chief complaint: EMS states: Her glucometer read high and she was tachypneic when we vc1 arrived. We checked her BGL 4 times the first 2 read high, the third read 462 and the last was 515. She gave herself 15 units sub cut of her fast acting around 1930. Coronavirus screen: Vaccine status: Patient reports being unvaccinated. Client denies travel out of the [place] in the last 14 days. At this time, the client does not indicate any symptoms associated with coronavirus-19. Ebola Screen: Patient negative for fever greater than or equal to 101.5 degrees Fahrenheit, and additional compatible Ebola Virus Disease symptoms Patient denies exposure to infectious person. Patient denies travel to an Ebola-affected area in the 21 days before illness onset. No symptoms or risks identified at this time. Initial Sepsis Screen: Does the patient meet any 2 criteria? No. Patient's initial sepsis screen is negative. Does the patient have a suspected source of infection? No. Patient's initial sepsis screen is negative. Risk Assessment: Do you want to hurt yourself or someone else? Patient reports no desire to harm self or others. Onset of symptoms was July 11, 2023 at 19:30. 20:39 Method Of Arrival: EMS: [facility] vc1 20:39 Acuity: TANYA 3 vc1 20:45 Care prior to arrival: IV initiated. 18 GA, in the left antecubital area, Glucose vc1 check: 462. 20:45 Care prior to arrival: Glucose check: 515. vc1 Triage Assessment: 20:44 General: Appears in no apparent distress. uncomfortable, Behavior is calm, cooperative, vc1 appropriate for age. Pain: Complains of pain in Headache Pain does not radiate. EENT: No deficits noted. No signs and/or symptoms were reported regarding the EENT system. Neuro: Level of Consciousness is awake, alert, obeys commands, Oriented to person, place, time, situation, Appropriate for age. Cardiovascular: No deficits noted. Respiratory: Airway is patent Respiratory effort is even, unlabored, Respiratory pattern is symmetrical, tachypnea. GI: No deficits noted. No signs and/or symptoms were reported involving the gastrointestinal system. : No deficits noted. No signs and/or symptoms were reported regarding the genitourinary system. Derm: No deficits noted. No signs and/or symptoms reported regarding the dermatologic system. Musculoskeletal: No deficits noted. No signs and/or symptoms reported regarding the musculoskeletal system. 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 - Social history:: Smoking status: Reported history of juuling and/or vaping. - Family history:: not pertinent. Screenin:[address] [facility] ED Fall Risk Assessment (Adult) History of falling in the last 3 months, vc1 including since admission No falls in past 3 months (0 pts) Confusion or Disorientation No (0 pts) Intoxicated or Sedated No (0 pts) Impaired Gait No (0 pts) Mobility Assist Device Used No (0 pt) Altered Elimination No (0 pt) Score/Fall Risk Level 0 - 2 = Low Risk Oriented to surroundings, Maintained a safe environment, Educated pt \T\ family on fall prevention, incl call for assistance when getting out of bed. Abuse screen: Denies threats or abuse. Nutritional screening: No deficits noted. Tuberculosis screening: No symptoms or risk factors identified. Assessment: 20:46 Reassessment: See triage assessment. vc1 21:25 Reassessment: Patient and/or family updated on plan of care and expected duration. Pain vc1 level reassessed. Patient is alert, oriented x 3, equal unlabored respirations, skin warm/dry/pink. Patient states symptoms have improved. 22:41 Reassessment: Patient and/or family updated on plan of care and expected duration. Pain vc1 level reassessed. Patient is alert, oriented x 3, equal unlabored respirations, skin warm/dry/pink. Patient states feeling better. Patient states symptoms have improved. Vital Signs: 20:39 BP 114 / 73; Pulse 90; Resp 28; Temp 98.4; Pulse Ox 98% ; vc1 20:43 Weight 72.57 kg; Height 5 ft. 2 in. ; vc1 21:25 BP 105 / 72; Pulse 91; Resp 19; Pulse Ox 99% ; vc1 22:00 BP 109 / 84; Pulse 106; Resp 21; Pulse Ox 100% ; vc1 20:43 Body Mass Index 29.26 (72.57 kg, 157.48 cm) vc1 ED Course: 20:39 Patient arrived in ED. vc1 20:39 Fadi Alvarenga MD is Attending Physician. rt 20:42 Triage completed. vc1 20:43 Arm band placed on right wrist. vc1 20:46 Patient has correct armband on for positive identification. Bed in low position. Call vc1 light in reach. Client placed on continuous cardiac and pulse oximetry monitoring. NIBP monitoring applied. 20:46 Maintain EMS IV. Dressing intact. Good blood return noted. Site clean \T\ dry. Gauge \T\ vc 1 site: 18g LAC. 21:43 Radha Heredia RN is Primary Nurse. vc1 22:00 Guzman Patterson is Hospitalizing Provider. rt 23:55 No provider procedures requiring assistance completed. Patient admitted, IV remains in vc1 place. Administered Medications: 22:25 Drug: Insulin Drip - (Insulin Regular Human IVP 100 units, NS 0.9% IV 100 ml) vc1 {Co-Signature: as6 (Armin Ortega RN).} Route: IV; Rate: calculated rate; Site: left antecubital; 22:33 Drug: NS 0.9% IV 1000 ml Route: IV; Rate: 1 bolus; Site: left antecubital; vc1 22:42 Drug: Acetaminophen PO 1000 mg Route: PO; vc1 Medication: 20:46 VIS not applicable for this client. vc1 Outcome: 22:01 Decision to Hospitalize by Provider. rt 23:55 Admitted to ICU accompanied by nurse, via stretcher, room 1-, on monitor, with chart, vc1 Report called to Ngoc 23:55 Condition: improved 23:55 Instructed on the need for admit. 23:55 Patient left the ED. vc1 Signatures: Radha Heredia RN RN vc1 Fadi Alvarenga MD MD rt Armin Ortega RN as6
--- NOTE | 2023-07-11 22:06 | P.HP ---
Certification for Inpatient Patient admitted to: Inpatient With expected LOS: <2 Midnights Patient will require the following post-hospital care: None Practitioner: I am a practitioner with admitting privileges, knowledge of patient current condition, hospital course, and medical plan of care. Services: Services provided to patient in accordance with Admission requirements found in Title 42 Section 412.3 of the Code of Federal Regulations Patient History Date of Service: 07/11/23 Reason for admission: DKA History of Present Illness: 28-year-old female with type 1 diabetes who presented to the ED via EMS with complaints of hyperglycemia. She states that she missed her blood sugar check and and her insulin this morning. Reports hyperglycemia, low grade headache that started today. She denies nausea, vomiting, abdominal pain, shortness of breath, malaise. Plan to admit to ICU for DKA,She was started on insulin drip in ED and is admitted for further management of DKA. blood pressure 109/84, pulse 106, respirations 21, 100% ED vital signs. Laboratory evaluation CBC within normal limits, ABG pH 7.30, CO2 32.6, O2 39.5, HCO3 15.3, O2 measured 64.8, blood glucose 446, acute kidney injury BUN 15 creatinine 1.09, however hyponatremia sodium 130, anion gap 24.6, alk phos elevated at 148, UA 4+ ketonuria 4+ glucose urea Allergies No Known Allergies Allergy (Verified 09/29/22 00:31) Home Medications: Insulin Aspart [Novolog Flexpen] See Protocol SQ SEECOM 03/10/23 Insulin Degludec [Tresiba] 24 unit SQ BID 04/21/23 - Past Medical/Surgical History Diabetic: Yes -: Diabetes mellitus type 1 -: C section Psychosocial/ Personal History: Patient lives at home with family - Family History Mother -: Diabetes - Social History Alcohol use: Yes CD- Drugs: No Caffeine use: Yes Review of Systems 10-point ROS is otherwise unremarkable Physical Examination - Physical Exam General: Alert, In no apparent distress, Oriented x3 HEENT: Atraumatic, Normocephalic, PERRLA Neck: Supple, 2+ carotid pulse no bruit, JVD not distended Respiratory: Clear to auscultation bilaterally, Normal air movement, Other (Tachypnea) Cardiovascular: No edema, Normal pulses, Regular rate/rhythm, Normal S1 S2 Capillary refill: <2 Seconds Gastrointestinal: Normal bowel sounds, Soft and benign Musculoskeletal: No clubbing, No swelling Integumentary: No rashes, No breakdown Neurological: Normal speech, Normal strength at 5/5 x4 extr, Normal tone, Sensation intact - Studies Laboratory Data (last 24 hrs) 07/11/23 07/11/23 20:45 20:45 WBC 7.90 Hgb 14.0 Hct 42.7 Plt Count 309 Sodium 130 L Potassium 3.6 BUN 15 Creatinine 1.09 H Glucose 446 H* Magnesium 1.7 Total Bilirubin 0.7 AST 10 L ALT 26 Alkaline Phosphatase 148 H Lipase 27 Assessment and Plan - Plan Assessment plan DKA without coma Type 1 diabetes mellitus Hypoxia on ABG hyponatremia DKA without coma Type 1 diabetes mellitus Hypoxia on ABG hyponatremia trend sodium with BMP every 4 hours DKA protocol in the ICU with insulin drip, aggressive IV fluids with potassium, every 1 hours blood sugar checks, every 4 hours BMP/acetone Every 4 hours BMP mag Supportive measures with antiemetics Monitor and replete electrolytes per protocol Monitor O2 sats keep sats greater than 92% Diet n.p.o. Lovenox for VTE prophylaxis Full code Discharge Plan: Home Plan to discharge in: 24 Hours - Advance Directives Does patient have a Living Will: No Does patient have a Durable POA for Healthcare: No - Code Status/Comfort Care Code Status: Full Code Physician Review: Patient Assessed, Agree with Above Assessment and Plan Critical Care: Yes Time Spent Managing Pts Care (In Minutes): 70
[2023-07-11] MEDS ORDERED: ONDANSETRON 4 MG/2 ML VIAL IV PRN (22:09)
[2023-07-11] MEDS ORDERED: INSULIN -REGULAR HUMAN 100 UNIT in NA CHLORIDE 0.9% 100 ML IV SCH (22:15)
[2023-07-11] MEDS ORDERED: NA CHLORIDE 0.9% 1,000 ML ONE (22:22)
[2023-07-11] MEDS ORDERED: NA CHLORIDE 0.9% 100 ML ONE (22:22)
[2023-07-11] MEDS ORDERED: INSULIN -REGULAR HUMAN 50 UNIT/0.5 ML ML ONE (22:22)
[2023-07-11] MEDS ORDERED: ACETAMINOPHEN 500 MG TAB PO PRN (22:36)
[2023-07-11] MEDS ORDERED: ACETAMINOPHEN 500 MG TAB ONE (22:42)
[2023-07-11] MEDS: D5 0.45 NS 1,000 ML IV SCH (23:00)
[2023-07-11] MEDS: NA CHLORIDE 0.9% 1,000 ML IV SCH (23:00)
[2023-07-11] MEDS ORDERED: KCL 20 MEQ/100 mL IVPB 100 ML IV ONE (23:02)
[2023-07-11] MEDS ORDERED: D5W 1,000 ML IV ONE (23:02)
[2023-07-11] MEDS ORDERED: MAGNESIUM SULFATE 1 gm IVPB 1 GM/100 ML BAG IV ONE (23:06)
[2023-07-12 00:27] VITALS: O2SAT 100
[2023-07-12] MEDS: NA CHLORIDE 0.9% 1,000 ML IV SCH (01:08)
[2023-07-12 01:28] LABS: Potassium 3.2 mEq/L (3.5-5.1)
[2023-07-12 01:57] VITALS: BMI 29.8
[2023-07-12] MEDS: D5 0.45 NS 1,000 ML IV SCH (04:35)
[2023-07-12 05:34] LABS: Absolute Lymphocytes (CBC) 2.9 K/uL (0.7-4.9); Hematocrit 35.3 % (36.0-45.0); MCV 88.3 fL (80-100); MPV 7.3 fL (7.6-11.3); Platelets 255 thou/uL (152-406)
[2023-07-12 05:53] LABS: Magnesium 1.8 mg/dL (1.6-2.4); Phosphorus 3.4 mg/dL (2.5-4.9); Potassium 3.5 mEq/L (3.5-5.1)
[2023-07-12] MEDS ORDERED: POTASSIUM CL SA 10 MEQ TAB PO ONE (06:03)
[2023-07-12] MEDS ORDERED: MAGNESIUM SULFATE 1 gm IVPB 1 GM/100 ML BAG IV ONE (06:03)
[2023-07-12] MEDS ORDERED: INSULIN GLARGINE 100 UNIT/ML SQ ONE (06:03)
--- NOTE | 2023-07-12 08:57 | P.DS ---
Admission Date: 07/11/23 Discharge Date: 07/12/23 Disposition: ROUTINE DISCHARGE Discharge Condition: FAIR Reason for Admission: DKA - Problems (1) DKA (diabetic ketoacidoses) Status: Acute Qualifiers: Diabetes mellitus type: type 1 Diabetes mellitus complication detail: without coma Qualified Code(s): E10.10 - Type 1 diabetes mellitus with ketoacidosis without coma Brief History of Present Illness: 28-year-old female with type 1 diabetes who presented to the ED via EMS with complaints of hyperglycemia. She states that she missed her blood sugar check and and her insulin dose. She denied nausea, vomiting, abdominal pain, shortness of breath, malaise. Blood work showed metabolic acidosis with anion gap and hyperglycemia. Patient was diagnosed with DKA, started on insulin drip and admitted for further management of DKA. Hospital Course: Patient admitted to the ICU on insulin drip. She needed an insulin drip briefly, anion gap closed, patient will transition to subcutaneous insulin. Her blood sugar readings were within normal range with Semglee. Patient tolerated diet, ambulatory. She is deemed stable for discharge. No changes made in her diabetes medications. Vital Signs/Physical Exam: Temp Pulse Resp BP Pulse Ox 97.4 F 84 17 100/64 97 07/12/23 04:00 07/12/23 06:00 07/12/23 06:00 07/12/23 06:00 07/12/23 06:00 General: Alert, In no apparent distress, Oriented x3 HEENT: Mucous membr. moist/pink Neck: Supple, JVD not distended Respiratory: Clear to auscultation bilaterally, Normal air movement Cardiovascular: No edema, Regular rate/rhythm, Normal S1 S2 Gastrointestinal: Normal bowel sounds, Soft and benign, Non-distended, No tenderness Musculoskeletal: No swelling Integumentary: No rashes Neurological: Normal strength at 5/5 x4 extr Laboratory Data at Discharge: WBC 6.20 thou/uL (4.3-10.9) 07/12/23 05:22 Hgb 12.0 g/dL (12.0-15.0) D 07/12/23 05:22 Hct 35.3 % (36.0-45.0) L 07/12/23 05:22 Plt Count 255 thou/uL (152-406) 07/12/23 05:22 Sodium 137 mEq/L (136-145) 07/12/23 05:22 Potassium 3.5 mEq/L (3.5-5.1) 07/12/23 05:22 BUN 8 mg/dL (7-18) 07/12/23 05:22 Creatinine 0.62 mg/dL (0.55-1.02) 07/12/23 05:22 Glucose 133 mg/dL (74-106) H 07/12/23 05:22 Phosphorus 3.4 mg/dL (2.5-4.9) 07/12/23 05:22 Magnesium 1.8 mg/dL (1.6-2.4) 07/12/23 05:22 Total Bilirubin 0.7 mg/dL (0.2-1.0) 07/11/23 20:45 AST 10 U/L (15-37) L 07/11/23 20:45 ALT 26 U/L (13-56) 07/11/23 20:45 Alkaline Phosphatase 148 U/L (45-117) H 07/11/23 20:45 Lipase 27 U/L (13-75) 07/11/23 20:45 Home Medications: Insulin Aspart [Novolog Flexpen] See Protocol SQ SEECOM 03/10/23 Insulin Degludec [Tresiba] 24 unit SQ BID 04/21/23 Physician Discharge Instructions: PROBLEM: DKA GOAL: Clear understanding of disease process INSTRUCTIONS:take meds as prescribed Diet: Diabetic Diet Activity: as tolerated DME DME: Date Ordered: Name of Company: [employer] Services Needed: Name of Company: Date or Referral: IMMUNIZATION Influenza Vaccine Indicated: Influenza Vaccine Given: Date Given: Pneumonia Vaccine Indicated: No Pneumonia Vaccine Given: Date Given: Diet: ADA Activity: Ad pepe Time spent managing pt's care (in minutes): 36
[2023-07-12] MEDS ORDERED: ENOXAPARIN 40 MG/0.4 ML SQ SCH (09:00)
[2023-07-12 09:45] VITALS: BP 119/81; TEMP 97.9
== END 2023-07-12 09:45 | disposition home or self-care (01) | DRG 638 ==
LOC: ER 20:30 → ERHOLD 22:08 → 3RD-ICU 22:43
PROVIDERS: ADMIT Internal Medicine; ATTEND Internal Medicine
DX: E10.10 Type 1 diabetes mellitus with ketoacidosis without coma (principal); E87.1 Hypo-osmolality and hyponatremia; N17.9 Acute kidney failure, unspecified; R09.02 Hypoxemia; Z79.4 Long term (current) use of insulin; Z28.310 Unvaccinated for COVID-19; Z86.73 Personal history of transient ischemic attack (TIA), and cerebral infarction without residual deficits; Z91.148 Patient's other noncompliance with medication regimen for other reason
CPT/HCPCS: 36415; 80048; 80053; 81001; 81025; 82805; 82947; 83690; 83735; 84100; 85025; 96374; 99285; J1815; J3475; J3480; J7030; J7799

== ENCOUNTER 2023-09-29 16:20 | Emergency (ER) | payer OTHER ==
--- OUTSIDE RECORDS SUMMARY | 2023-09-29 16:28 | XMS REPORT | Continuity of Care Document ---
:1995 Author Organization [facility] t Address [address] [place] [address] Care Team Providers Name Role Phone Pcp, Patient Does Not Have A Primary Care Physician [id number] ANSELMO FIGUEROA Attending Clinician Unavailable ANSELMO FIGUEROA Attending Clinician Unavailable Natalie Corrales Attending Clinician Unavailable BEATRIZ WINTERS Attending Clinician Unavailable Harika Pineda Attending Clinician Neptali White - Jurgen Attending Clinician Unavailable HARIKA CASTELLON Attending Clinician Unavailable Beatriz Winters MD Attending Clinician Doctor Unassigned, [place] Attending Clinician Unavailable CASIE BRUNO Attending Clinician Unavaila ANSELMO Benavides Admitting Clinician Unavailable Natalie Corrales Admitting Clinician Unavailable CASIE BRUNO Admitting Clinician Unavaila sarai Payers Payer Name Policy Type Policy Number Effective Date Expiration Date Jared [place] [facility] [id number] 00:00:00 Problems Condition Condition Condition Status Onset Resolution Last Treating Co mments Source Name Details Category Date Date Treatment Clinician Date 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 1 8 ity of diabetes diabetes 00:00: [place] mellitus mellitus 00 Medica l with with Branch hyperglyce hyperglyce digna digna Noncomplia Noncomplia Disease Active U nivers nce nce 8 ity of 00:00: [place] [id number] [facility] [place] DKA DKA Disease Active Univers (diabetic (diabetic 06-03 ity of [place] 00 [facility] Diabetic Diabetic Disease Recurre 2017-11 [facility] ketoacidos ketoacidos nce 0-17 Gisela kes is with is with 00:00: Medical coma coma 00 Center Acute Acute Disease Active 2017-11 [facility] metabolic metabolic 0-16 [place] [facility] encephalop encephalop 00:00: N[place] dical athy athy 00 Center Allergies, Adverse Reactions, Alerts Allergy Allergy Status Severity Reaction(s) Onset Inactive Treating Comm ents Source Name Type Date Date Clinician No Known DA Active U [facility] [place] 00[place]: [address] No Known DA Active U [facility] [place] 00:[place]: [address] No Known DA Active U 2019- [facility] 1-[facility] [place] 00:[place]: [address] No Known DA Active U 2019-1 [facility] 1[facility] [place] 00:[place]: [address] No Known DA Active U 2020-1 [facility] [place] 00:[place]: [address] No Known DA Active U 2020-1 [facility] 0[facility] [place] 00:[place]: [address] NO KNOWN Drug Active Univers ALLERGIE Class ity of S [facility] Social History Social Habit Start Date Stop Date Quantity Comments Source Sexual orientation [facility] Gender identity Universit y of [facility] History of tobacco Current smoker Un iversity of use [facility] History of Social 2023-05-23 2023-05-23 Univers ity of function 00:00:00 00:00:00 [facility] Exposure to 2022-06-01 2022-06-11 Not sure University of SARS-CoV-2 (event) 00:00:00 11:35:00 [facility] Tobacco use and 2020-06-03 2020-06-03 Former smokeless Uni versity of exposure 00:00:00 00:00:00 tobacco user [facility] Alcohol intake 2020-06-03 2020-06-03 Current University of 00:00:00 00:00:00 non-drinker of [facility] alcohol Branch (finding) Tobacco Comment 2020-06-03 2020-06-03 half a pack a Univer sity of 00:00:00 00:00:00 day has not [facility] since found out Branch she is Cigarettes smoked 2018-08-18 2018-08-18 [facility] current (pack per 00:00:00 00:00:00 Medical Center day) - Reported Sex Assigned At [birth year] [facility] 00:00:00 00:00:00 [facility] Smoking Status Start Date Stop Date Source Ex-smoker 2020-06-03 00:00:00 2020-06-03 00:00:00 [facility] [place] [facility] Smokes tobacco daily 2018-08-18 00:00:00 [facility] Medications Ordered Filled Start Stop Current Ordering Indication Dosage Frequency Signature Comments Components Source Medication Medication Date Date Medication? Clinician (SIG) Name Name insulin Yes [id number] INJECT UP Univers aspart 7-24 TO 10 ity of U-100 00:00: UNITS [place] (NOVOLOG 00 UNDER THE Medica l FLEXPEN SKIN 3 Branch U-100 TIMES A INSULIN) DAY WITH A 100 unit/mL MEAL PER (3 mL) SLIDING injection SCALE. FOLLOW-UP WITH ENDO insulin Yes [id number] INJECT UP Univers aspart 7-24 TO 10 ity of U-100 00:00: UNITS [place] (NOVOLOG 00 UNDER THE Medica l FLEXPEN SKIN 3 Branch U-100 TIMES A INSULIN) DAY WITH A 100 unit/mL MEAL PER (3 mL) SLIDING injection SCALE. FOLLOW-UP WITH ENDO insulin Yes [id number] INJECT UP Univers aspart 7-24 TO 10 ity of U-100 00:00: UNITS [place] (NOVOLOG 00 UNDER THE Medica l FLEXPEN SKIN 3 Branch U-100 TIMES A INSULIN) DAY WITH A 100 unit/mL MEAL PER (3 mL) SLIDING injection SCALE. FOLLOW-UP WITH ENDO blood sugar 0 Yes [id number] Use as Univers diagnostic 7-21 directed ity o f (TRUE 00:00: up to 4 [place] METRIX 00 times a Medical GLUCOSE day Branch TEST STRIP) strip Blood-Gluco 0 Yes [id number] Use as Univers se Meter -21 directed ity of (ONETOUCH 00:00: [place] E10.65 [place] VERIO IQ 00 Medical METER) Kit Branch lancets 0 Yes [id number] Use as Uni vers (ONE TOUCH 7-21 directed ity o f DELICA) 33 00:00: [place] 4 [place] gauge Misc 00 times a Medica l day E10.65 Branch Insulin 0 Yes [id number] 24U inject 24 Univers Detemir 7-21 Units ity of (LEVEMIR 00:00: [place] FLEXTOUCH 00 skin every Medi geena U-100 morning. Branch INSULN) 100 Follow-up unit/mL (3 endo for mL) management injection . blood sugar Yes [id number] Use as Univers diagnostic - directed ity o f (TRUE 00:00: up to 4 [place] METRIX 00 times a Medical GLUCOSE day Branch TEST STRIP) strip Blood-Gluco 0 Yes [id number] Use as Univers se Meter 05-23 directed ity of (ONETOUCH 00:00: [place] E10.65 [place] VERIO IQ 00 Medical METER) Kit Branch lancets 0 Yes [id number] Use as Uni vers (ONE TOUCH 7-21 directed ity o f DELICA) 33 00:00: [place] 4 [place] gauge Misc 00 times a Medica l day E10.65 Branch Insulin 2022-0 Yes [id number] 24U inject 24 Univers Detemir 7-21 Units ity of (LEVEMIR 00:00: [place] FLEXTOUCH 00 skin every Medi geena U-100 morning. Branch INSULN) 100 Follow-up unit/mL (3 endo for mL) management injection . blood sugar 0 Yes [id number] Use as Univers diagnostic 7-21 directed ity o f (TRUE 00:00: up to 4 [place] METRIX 00 times a Medical GLUCOSE day Branch TEST STRIP) strip Blood-Gluco 2023-0 Yes [id number] Use as Univers se Meter 7-21 directed ity of (ONETOUCH 00:00: [place]10.65 [place] VERIO IQ 00 Medical METER) Kit Branch lancets 0 Yes [id number] Use as Uni vers (ONE TOUCH 7-21 directed ity o f DELICA) 33 00:00: [place] gauge Misc 00 times a Medica l day E10.65 Branch Insulin 2022-0 Yes [id number] 24U inject 24 Univers Detemir 7-21 Units ity of (LEVEMIR 00:00: [place] FLEXTOUCH 00 skin every Medi geena U-100 morning. Branch INSULN) 100 Follow-up unit/mL (3 endo for mL) management injection . blood sugar 0 Yes [id number] Use as Univers diagnostic 7-21 directed ity o f (TRUE 00:00: up to 4 [place] METRIX 00 times a Medical GLUCOSE day Branch TEST STRIP) strip Blood-Gluco 0 Yes [id number] Use as Univers se Meter 7-21 directed ity of (ONETOUCH 00:00: [place]10.65 [place] VERIO IQ 00 Medical METER) Kit Branch lancets 2022-0 Yes [id number] Use as Uni vers (ONE TOUCH 7-21 directed ity o f DELICA) 33 00:00: [place] gauge Misc 00 times a Medica l day E10.65 Branch Insulin 2022-0 Yes [id number] 24U inject 24 Univers Detemir 7-21 Units ity of (LEVEMIR 00:00: [place] FLEXTOUCH 00 skin every Medi geena U-100 morning. Branch INSULN) 100 Follow-up unit/mL (3 endo for mL) management injection . blood sugar 2022-0 Yes [id number] Use as Univers diagnostic 7-21 directed ity o f (TRUE 00:00: up to 4 [place] METRIX 00 times a Medical GLUCOSE day Branch TEST STRIP) strip Blood-Gluco 2022-0 Yes [id number] Use as Univers se Meter 7-21 directed ity of (ONETOUCH 00:00: [place] E10.65 [place] VERIO IQ 00 Medical METER) Kit Branch lancets 2022-0 Yes [id number] Use as Uni vers (ONE TOUCH 7-21 directed ity o f DELICA) 33 00:00: [place] 4 [place] gauge Misc 00 times a Medica l day E10.65 Branch Insulin Yes [id number] 24U inject 24 Univers Detemir 7-21 Units ity of (LEVEMIR 00:00: [place] FLEXTOUCH 00 skin every Medi geena U-100 morning. Branch INSULN) 100 Follow-up unit/mL (3 endo for mL) management injection . Insulin Yes [id number] 24U inject 24 Univers Detemir 3-03 Units ity of (LEVEMIR 00:00: [place] FLEXTOUCH 00 skin every Medi geena U-100 morning. Branch INSULN) 100 unit/mL (3 mL) injection Insulin Yes [id number] 24U inject 24 Univers Detemir 3-03 Units ity of (LEVEMIR 00:00: [place] FLEXTOUCH 00 skin every Medi geena U-100 morning. Branch INSULN) 100 unit/mL (3 mL) injection Insulin 2022- No [id number] 24U inject 24 Univers Detemir 3-03 07-21 Units ity of (LEVEMIR 00:00: 00:00 under the [place] FLEXTOUCH 00 :00 skin every Medi geena U-100 morning. Branch INSULN) 100 unit/mL (3 mL) injection Insulin 2022- No [id number] 24U inject 24 Univers Detemir 3-03 07-21 Units ity of (LEVEMIR 00:00: 00:00 under the [place] FLEXTOUCH 00 :00 skin every Medi geena U-100 morning. Branch INSULN) 100 unit/mL (3 mL) injection insulin 2021-11 Yes [id number] 24U INJECT 24 Univers degludec 1-19 UNITS ity of (TRESIBA 00:00: [place] FLEXTOUCH 00 SKIN EVERY Medi geena U-100) 100 MORNING. Branc h unit/mL (3 mL) InPn insulin 2021-11 Yes [id number] 24U INJECT 24 Univers degludec 1-19 UNITS ity of (TRESIBA 00:00: [place] FLEXTOUCH 00 SKIN EVERY Medi geena U-100) 100 MORNING. Branc h unit/mL (3 mL) InPn insulin 2021-11 Yes [id number] 24U INJECT 24 Univers degludec 1-19 UNITS ity of (TRESIBA 00:00: [place] FLEXTOUCH 00 SKIN EVERY Medi geena U-100) 100 MORNING. Branc h unit/mL (3 mL) InPn insulin 2021-11 Yes [id number] 24U INJECT 24 Univers degludec 1-19 UNITS ity of (TRESIBA 00:00: [place] FLEXTOUCH 00 SKIN EVERY Medi geena U-100) 100 MORNING. Branc h unit/mL (3 mL) InPn insulin 2021-11 Yes [id number] 24U INJECT 24 Univers degludec 1-19 UNITS ity of (TRESIBA 00:00: [place] FLEXTOUCH 00 SKIN EVERY Medi geena U-100) 100 MORNING. Branc h unit/mL (3 mL) InPn insulin 2021-11- No [id number] 24U INJECT 24 Univers degludec 1-19 03-03 UNITS ity of (TRESIBA 00:00: 00:00 UNDER THE [place] FLEXTOUCH 00 :00 SKIN EVERY Medi geena U-100) 100 MORNING. Branc h unit/mL (3 mL) InPn blood sugar Yes [id number] Use as Univers diagnostic 06-11 directed ity o f (TRUE 00:00: up to 4 [place] METRIX 00 times a Medical GLUCOSE day Branch TEST STRIP) strip lancets Yes [id number] Use as Uni vers (ONE TOUCH 06-11 directed ity o f DELICA) 33 00:00: up [place] 4 [place] gauge Misc 00 times a Medica l day E10.65 Branch insulin Yes [id number] INJECT UP Univers aspart 06-11 TO 10 ity of U-100 00:00: UNITS [place] (NOVOLOG 00 UNDER THE Medica l FLEXPEN SKIN 3 Branch U-100 TIMES A INSULIN) DAY WITH A 100 unit/mL MEAL PER (3 mL) SLIDING injection SCALE Insulin Yes [id number] Use as Uni vers [place]oss, 06-11 directed ity of Disposable, 00:00: four times [place] (BD 00 a day. Medical ULTRA-FINE DX:E10.65 Bran ch MICRO PEN NEEDLE) 32 gauge x 1/4" Ndle blood sugar Yes [id number] Use as Univers diagnostic 06-11 directed ity o f (TRUE 00:00: up to 4 [place] METRIX 00 times a Medical GLUCOSE day Branch TEST STRIP) strip lancets Yes [id number] Use as Uni vers (ONE TOUCH 06-11 directed ity o f DELICA) 33 00:00: up [place] 4 [place] gauge Misc 00 times a Medica l day E10.65 Branch insulin Yes [id number] INJECT UP Univers aspart 06-11 TO 10 ity of U-100 00:00: UNITS [place] (NOVOLOG 00 UNDER THE Medica l FLEXPEN SKIN 3 Branch U-100 TIMES A INSULIN) DAY WITH A 100 unit/mL MEAL PER (3 mL) SLIDING injection SCALE Insulin Yes [id number] Use as Uni vers Foss, 06-11 directed ity of Disposable, 00:00: four times [place] (BD 00 a day. Medical ULTRA-FINE DX:E10.65 Bran ch MICRO PEN NEEDLE) 32 gauge x 1/4" Ndle blood sugar Yes [id number] Use as Univers diagnostic 06-11 directed ity o f (TRUE 00:00: up to 4 [place] METRIX 00 times a Medical GLUCOSE day Branch TEST STRIP) strip lancets Yes [id number] Use as Uni vers (ONE TOUCH 06-11 directed ity o f DELICA) 33 00:00: [place] 4 [place] gauge Misc 00 times a Medica l day E10.65 Branch insulin 0 Yes [id number] INJECT UP Univers aspart 06-11 TO 10 ity of U-100 00:00: UNITS [place] (NOVOLOG 00 UNDER THE Medica l FLEXPEN SKIN 3 Branch U-100 TIMES A INSULIN) DAY WITH A 100 unit/mL MEAL PER (3 mL) SLIDING injection SCALE Insulin Yes [id number] Use as Uni vers Foss, 06-11 directed ity of Disposable, 00:00: four times [place] (BD 00 a day. Medical ULTRA-FINE DX:E10.65 Bran ch MICRO PEN NEEDLE) 32 gauge x 1/4" Ndle blood sugar Yes [id number] Use as Univers diagnostic 06-11 directed ity o f (TRUE 00:00: up to 4 [place] METRIX 00 times a Medical GLUCOSE day Branch TEST STRIP) strip lancets Yes [id number] Use as Uni vers (ONE TOUCH 06-11 directed ity o f DELICA) 33 00:00: up [place] 4 [place] gauge Misc 00 times a Medica l day E10.65 Branch insulin Yes [id number] INJECT UP Univers aspart 8-09 TO 10 ity of U-100 00:00: UNITS [place] (NOVOLOG 00 UNDER THE Medica l FLEXPEN SKIN 3 Branch U-100 TIMES A INSULIN) DAY WITH A 100 unit/mL MEAL PER (3 mL) SLIDING injection SCALE Insulin Yes [id number] Use as Uni vers [place]oss, 06-11 directed ity of Disposable, 00:00: four times [place] (BD 00 a day. Medical ULTRA-FINE DX:E10.65 Bran ch MICRO PEN NEEDLE) 32 gauge x 1/4" Ndle blood sugar Yes [id number] Use as Univers diagnostic 06-11 directed ity o f (TRUE 00:00: up to 4 [place] METRIX 00 times a Medical GLUCOSE day Branch TEST STRIP) strip lancets Yes [id number] Use as Uni vers (ONE TOUCH 06-11 directed ity o f DELICA) 33 00:00: up to 4 [place] gauge Misc 00 times a Medica l day E10.65 Branch insulin Yes [id number] INJECT UP Univers aspart 8-09 TO 10 ity of U-100 00:00: UNITS [place] (NOVOLOG 00 UNDER THE Medica l FLEXPEN SKIN 3 Branch U-100 TIMES A INSULIN) DAY WITH A 100 unit/mL MEAL PER (3 mL) SLIDING injection SCALE Insulin Yes [id number] Use as Uni vers [place]oss, 06-11 directed ity of Disposable, 00:00: four times [place] (BD 00 a day. Medical ULTRA-FINE DX:E10.65 Bran ch MICRO PEN NEEDLE) 32 gauge x 1/4" Ndle blood sugar Yes [id number] Use as Univers diagnostic 06-11 directed ity o f (TRUE 00:00: up to 4 [place] METRIX 00 times a Medical GLUCOSE day Branch TEST STRIP) strip lancets Yes [id number] Use as Uni vers (ONE TOUCH 06-11 directed ity o f DELICA) 33 00:00: [place] 4 [place] gauge Misc 00 times a Medica l day E10.65 Branch insulin 0 Yes [id number] INJECT UP Univers aspart 8- TO 10 ity of U-100 00:00: UNITS [place] (NOVOLOG 00 UNDER THE Medica l FLEXPEN SKIN 3 Branch U-100 TIMES A INSULIN) DAY WITH A 100 unit/mL MEAL PER (3 mL) SLIDING injection SCALE Insulin Yes [id number] Use as Uni vers [place], 06-11 directed ity of Disposable, 00:00: four times [place] (BD 00 a day. Medical ULTRA-FINE DX:E10.65 Bran ch MICRO PEN NEEDLE) 32 gauge x 1/4" Ndle blood sugar Yes [id number] Use as Univers diagnostic 06-11 directed ity o f (TRUE 00:00: up to 4 [place] METRIX 00 times a Medical GLUCOSE day Branch TEST STRIP) strip lancets Yes [id number] Use as Uni vers (ONE TOUCH 06-11 directed ity o f DELICA) 33 00:00: up to 4 [place] gauge Misc 00 times a Medica l day E10.65 Branch insulin 0 Yes [id number] INJECT UP Univers aspart 8 TO 10 ity of U-100 00:00: UNITS [place] (NOVOLOG 00 UNDER THE Medica l FLEXPEN SKIN 3 Branch U-100 TIMES A INSULIN) DAY WITH A 100 unit/mL MEAL PER (3 mL) SLIDING injection SCALE Insulin Yes [id number] Use as Uni vers [place], 06-11 directed ity of Disposable, 00:00: four times [place] (BD 00 a day. Medical ULTRA-FINE DX:E10.65 Bran ch MICRO PEN NEEDLE) 32 gauge x 1/4" Ndle blood sugar 0 Yes [id number] Use as Univers diagnostic 06-11 directed ity o f (TRUE 00:00: up to 4 [place] METRIX 00 times a Medical GLUCOSE day Branch TEST STRIP) strip lancets 0 Yes [id number] Use as Uni vers (ONE TOUCH 06-11 directed ity o f DELICA) 33 00:00: up to 4 [place] gauge Misc 00 times a Medica l day E10.65 Branch insulin 2022-0 Yes [id number] INJECT UP Univers aspart 06-11 TO 10 ity of U-100 00:00: UNITS [place] (NOVOLOG 00 UNDER THE Medica l FLEXPEN SKIN 3 Branch U-100 TIMES A INSULIN) DAY WITH A 100 unit/mL MEAL PER (3 mL) SLIDING injection SCALE Insulin Yes [id number] Use as Uni vers [place], 06-11 directed ity of Disposable, 00:00: four times [place] (BD 00 a day. Medical ULTRA-FINE DX:E10.65 Bran ch MICRO PEN NEEDLE) 32 gauge x 1/4" Ndle blood sugar Yes [id number] Use as Univers diagnostic 06-11 directed ity o f (TRUE 00:00: up to 4 [place] METRIX 00 times a Medical GLUCOSE day Branch TEST STRIP) strip lancets Yes [id number] Use as Uni vers (ONE TOUCH 06-11 directed ity o f DELICA) 33 00:00: [place] 4 [place] gauge Misc 00 times a Medica l day E10.65 Branch insulin Yes [id number] INJECT UP Univers aspart 06-11 TO 10 ity of U-100 00:00: UNITS [place] (NOVOLOG 00 UNDER THE Medica l FLEXPEN SKIN 3 Branch U-100 TIMES A INSULIN) DAY WITH A 100 unit/mL MEAL PER (3 mL) SLIDING injection SCALE Insulin Yes [id number] Use as Uni vers [place], 06-11 directed ity of Disposable, 00:00: four times [place] (BD 00 a day. Medical ULTRA-FINE DX:E10.65 Bran ch MICRO PEN NEEDLE) 32 gauge x 1/4" Ndle insulin Yes [id number] INJECT UP Univers aspart 06-11 TO 10 ity of U-100 00:00: UNITS [place] (NOVOLOG 00 UNDER THE Medica l FLEXPEN SKIN 3 Branch U-100 TIMES A INSULIN) DAY WITH A 100 unit/mL MEAL PER (3 mL) SLIDING injection SCALE Insulin Yes [id number] Use as Uni vers [place], 06-11 directed ity of Disposable, 00:00: four times [place] (BD 00 a day. Medical ULTRA-FINE DX:E10.65 Bran ch MICRO PEN NEEDLE) 32 gauge x 1/4" Ndle insulin Yes [id number] INJECT UP Univers aspart 809 TO 10 ity of U-100 00:00: UNITS [place] (NOVOLOG 00 UNDER THE Medica l FLEXPEN SKIN 3 Branch U-100 TIMES A INSULIN) DAY WITH A 100 unit/mL MEAL PER (3 mL) SLIDING injection SCALE Insulin Yes [id number] Use as Uni vers [place], 06-11 directed ity of Disposable, 00:00: four times [place] (BD 00 a day. Medical ULTRA-FINE DX:E10.65 Bran ch MICRO PEN NEEDLE) 32 gauge x 1/4" Ndle Insulin Yes [id number] Use as Uni vers [place], 06-11 directed ity of Disposable, 00:00: four times [place] (BD 00 a day. Medical ULTRA-FINE DX:E10.65 Bran ch MICRO PEN NEEDLE) 32 gauge x 1/4" Ndle Insulin Yes [id number] Use as Uni vers [place], 06-11 directed ity of Disposable, 00:00: four times [place] (BD 00 a day. Medical ULTRA-FINE DX:E10.65 Bran ch MICRO PEN NEEDLE) 32 gauge x 1/4" Ndle Insulin Yes [id number] Use as Uni vers [place]oss, 06-11 directed ity of Disposable, 00:00: four times [place] (BD 00 a day. Medical ULTRA-FINE DX:E10.65 Bran ch MICRO PEN NEEDLE) 32 gauge x 1/4" Ndle Insulin Yes [id number] Use as Uni vers [place]oss, 06-11 directed ity of Disposable, 00:00: four times [place] (BD 00 a day. Medical ULTRA-FINE DX:E10.65 Bran ch MICRO PEN NEEDLE) 32 gauge x 1/4" Ndle blood sugar Yes [id number] Use as Univers diagnostic 06-11 directed ity o f (TRUE 00:00: up to 4 [place] METRIX 00 times a Medical GLUCOSE day Branch TEST STRIP) strip lancets Yes [id number] Use as Uni vers (ONE TOUCH 06-11 directed ity o f DELICA) 33 00:00: [place] 4 [place] gauge Misc 00 times a Medica l day E10.65 Branch insulin Yes [id number] INJECT UP Univers aspart 06-11 TO 10 ity of U-100 00:00: UNITS [place] (NOVOLOG 00 UNDER THE Medica l FLEXPEN SKIN 3 Branch U-100 TIMES A INSULIN) DAY WITH A 100 unit/mL MEAL PER (3 mL) SLIDING injection SCALE Insulin Yes [id number] Use as Uni vers [place], 06-11 directed ity of Disposable, 00:00: four times [place] (BD 00 a day. Medical ULTRA-FINE DX:E10.65 Bran ch MICRO PEN NEEDLE) 32 gauge x 1/4" Ndle insulin Yes [id number] 24U inject 24 Univers degludec 06-11 Units ity of (TRESIBA 00:00: [place] FLEXTOUCH 00 skin every Medi geena U-100) 100 morning. Branc h unit/mL (3 mL) InPn insulin 2022- No [id number] INJECT UP Univers aspart 06-11 TO 10 ity of U-100 00:00: 00:00 UNITS [place] (NOVOLOG 00 :00 UNDER THE Medica l FLEXPEN SKIN 3 Branch U-100 TIMES A INSULIN) DAY WITH A 100 unit/mL MEAL PER (3 mL) SLIDING injection SCALE insulin 2022- No [id number] INJECT UP Univers aspart 06-11 TO 10 ity of U-100 00:00: 00:00 UNITS (NOVOLOG 00 :00 UNDER THE Medica l FLEXPEN SKIN 3 Branch U-100 TIMES A INSULIN) DAY WITH A 100 unit/mL MEAL PER (3 mL) SLIDING injection SCALE blood sugar 2022- No [id number] Use as Univers diagnostic 06-11 directed ity of (TRUE 00:00: 00:00 up to 4 [place] METRIX 00 :00 times a Medical GLUCOSE day Branch TEST STRIP) strip lancets 2022- No [id number] Use as Un thomas (ONE TOUCH 06-11 directed ity of DELICA) 33 00:00: 00:00 up to 4 [place] gauge Misc 00 :00 times a Medica l day E10.65 Branch blood sugar 2022- No [id number] Use as Univers diagnostic 06-11 directed ity of (TRUE 00:00: 00:00 up to 4 [place] METRIX 00 :00 times a Medical GLUCOSE day Branch TEST STRIP) strip lancets 2022- No [id number] Use as Un thomas (ONE TOUCH 06-11 directed ity of DELICA) 33 00:00: 00:00 up to 4 [place] gauge Misc 00 :00 times a Medica l day E10.65 Branch insulin 2021- No [id number] 24U inject 24 Univers degludec 06-11 11-19 Units ity of (TRESIBA 00:00: 00:00 under the [place] FLEXTOUCH 00 :00 skin every Medi geena U-100) 100 morning. Branc h unit/mL (3 mL) InPn Insulin NPH 2021- No [id number] 24 units Univers Human 06-04 every ity of [place] 00:00: 00:00 [place](2A [place] (NOVOLIN N 00 :00 M) and 12 Medi geena FLEXPEN) units Branch 100 unit/mL before (3 mL) bedtime ( injection 4PM) insulin No [id number] INJECT UP Univers aspart 06-04 TO 10 ity of U-100 00:00: 00:00 UNITS [place] (NOVOLOG 00 :00 UNDER THE Medica l FLEXPEN SKIN 3 Branch U-100 TIMES A INSULIN) DAY WITH A 100 unit/mL MEAL PER (3 mL) SLIDING injection SCALE Insulin NPH 2021- No [id number] 24 units Univers Human 06-04 every ity of Recomb 00:00: 00:00 morning(2A [place] (NOVOLIN N 00 :00 M) and 12 Medi geena FLEXPEN) units Branch 100 unit/mL before (3 mL) bedtime ( injection 4PM) insulin 2021- No [id number] INJECT UP Univers aspart 06-04 TO 10 ity of U-100 00:00: 00:00 UNITS [place] (NOVOLOG 00 :00 UNDER THE Medica l FLEXPEN SKIN 3 Branch U-100 TIMES A INSULIN) DAY WITH A 100 unit/mL MEAL PER (3 mL) SLIDING injection SCALE lancets 2021- No [id number] Use as Un thomas (ONE TOUCH 01-04 directed ity of DELICA) 33 00:00: 00:00 up to 4 [place] gauge Misc 00 :00 times a Medica l day E10.65 Branch TRUE METRIX 2019-0 2021- No [id number] Use as Univers GLUCOSE 3-02 08- directed ity of TEST STRIP 00:00: 00:00 up to 4 [place] as strip 00 :00 times a Medical day Branch lancets 0 2021- No [id number] Use as Un thomas (ONE TOUCH 306-11 directed ity of DELICA) 33 00:00: 00:00 up to 4 [place] as gauge Misc 00 :00 times a Medica l day E10.65 Branch TRUE METRIX 0 2021- No [id number] Use as Univers GLUCOSE 3-06-11 directed ity of TEST STRIP 00:00: 00:00 up to 4 [place] as strip 00 :00 times a Medical day Branch Insulin 0 2021- No [id number] Use as Un thomas Foss, 11-23 directed ity of Disposable, 00:00: 00:00 four times [place] (BD 00 :00 a day. Medical ULTRA-FINE DX:E10.65 Bran ch MICRO PEN NEEDLE) 32 gauge x 1/4" Ndle Insulin 0 2021- No [id number] Use as Un thomas Foss, 11-23 directed ity of Disposable, 00:00: 00:00 four times [place] (BD 00 :00 a day. Medical ULTRA-FINE DX:E10.65 Bran ch MICRO PEN NEEDLE) 32 gauge x 1/4" Ndle ONETOUCH Yes [id number] Use as Un thomas VERIO IQ 3-13 directed ity of METER Kit 00:00: [place] E10.65 [place] 00 Medical Branch ONETOUCH Yes [id number] Use as Un thomas VERIO IQ 3-13 directed ity of METER Kit 00:00: TID E10.65 [place] Branch ONETOUCH Yes [id number] Use as Un [place]omas VERIO IQ 3-13 directed ity of METER Kit 00:00: [place] E10.65 [place] 00 [place] Branch ONETOUCH Yes [id number] Use as Un [place] VERIO IQ 3-13 directed ity of METER Kit 00:00: [place] E10.65 [place] ONETOUCH 2019-0 Yes [id number] Use as Un thomas VERIO IQ 3-13 directed ity of METER Kit 00:00: TID E10.65 [place] [facility] [facility] 2018-0 Yes [id number] Use as Un thomas VERIO IQ 3-13 directed ity of METER [place] 00:00[place]10.[place] [facility] 2018-0 Yes [id number] Use as Un thomas VERIO IQ 3-13 directed ity of METER Kit 00:00[place]10.[place] [facility] 0 Yes [id number] Use as Un thomas VERIO IQ 3-13 directed ity of METER Kit 00:00: [place] E10.65 [place] [facility] 0 Yes [id number] Use as Un thomas VERIO IQ 3-13 directed ity of METER Kit 00:00: [place] E10.[place] [facility] 0 Yes [id number] Use as Un thomas VERIO IQ 3-13 directed ity of METER Kit 00:00[place]10.[place] [facility] 2018-0 3- No [id number] Use as U nivers VERIO IQ 3-13 07-21 directed ity of METER Kit 00:00: 00:00 TID E10.65 [place]00 [facility] 2018-0 3- No [id number] Use as U nivers VERIO IQ 3-13 -21 directed ity of METER Kit 00:00: 00:00 TID E10.65 [place] :00 [facility] 2018-0 3- No [id number] Use as U nivers VERIO IQ 3-13 21 directed ity of METER Kit 00:00: 00:00 TID E10.65 [place] :00 [facility] insulin 2018- Yes 27U QD Inject [facility] glargine 0-21 0.27 mLs [facility] (LANTUS) 00:00: (27 Units Medi geena 100 unit/mL 00 total) Center syringe subcutaneo usly every morning Use as directed. insulin 2018- Yes 27U QD Inject [facility] [...] Source Systolic blood 2023-05-23 17:59:00 126 mm[Hg] [facility] Diastolic blood 2023-05-23 17:59:00 89 mm[Hg] [facility] Heart rate 2023-05-23 17:59:00 87 /min [facility] Body temperature 2023-05-23 17:59:00 36.72 Graciela [facility] Respiratory rate 2023-05-23 17:59:00 18 /min [facility] Body height 2023-05-23 17:59:00 157.5 cm [facility] Body weight 2023-05-23 17:59:00 71.532 kg Universi ty [facility] BMI 2023-05-23 17:59:00 28.84 kg/m2 Universi [facility] Oxygen saturation in 2023-05-23 17:59:00 100 /min University of Arterial blood by [facility] Pulse oximetry Branch Systolic blood 2022-06-11 16:53:00 120 mm[Hg] Univer sity of pressure [facility] Diastolic blood 2022-06-11 16:53:00 81 mm[Hg] Unive rsity of pressure [facility] Heart rate 2022-06-11 16:53:00 93 /min Universi [facility] Body weight 2022-06-11 16:53:00 [facility] 2022-06-11 16:53:00 30.82 kg/m2 [facility] O[facility] saturation in 2022-06-11 16:53:00 98 /min [facility] of Arterial blood by [facility] Pulse oximetry Branch Procedures Procedure Date / Time Performing Clinician Source Performed GLYCOSYLATED HEMOGLOBIN 2023-05-23 19:29:00 Harika Castellon [facility] (A1C) [facility] POCT HEMOGLOBIN A1C 2022-06-11 16:56:00 Beatriz Winters [facility] [id number] 2020-11-30 00:00:00 [facility] [id number] 2020-11-30 00:00:00 [facility] Encounters Start End Encounter Admission Attending Care Care Encounter Source Date/Time Date/Time Type Type Clinicians Facility Department ID 2021-08-31 Inpatient U ANSELMO FIGUEROA [facility] [id number] Univers 10:13:06 ANSELMO FIGUEROA it y [facility] 2020-11-29 Inpatient EM SHIRA CorralesWH LD [id number] [facility] 20:33:00 [facility]iad [facility] 2020-11-22 Inpatient EL SHIRA CorralesWH OBANTE [id number] [facility] 10:30:00 Ziad [facility] 2020-09-28 Inpatient JoseSHIRA calzadaWH TONY [id number] [facility] 03:41:00 Ziad [facility] [place] 2020-09-26 Inpatient GUILLAUME Corrales, [facility] INTE [id number] [facility] 12:48:00 Ziad 85 [facility] [place] 2020-08-05 Inpatient [facility] JED [id number] [facility] 00:52:00 53 [facility] [place] 2023-05-26 2023-05-26 [facility] [id number] Univers 00:00:00 00:00:00 Harika A HEALTH 350.1.13.10 i ty of [place] 4.2.7.2.686 Mason as JURGEN?BLEA [phone] Nd layton FLORES [address] [facility] OFFICE [facility] 2023-05-23 2023-05-23 Resource Technician Lab, Ang - [facility] 1.2.840.1 14 [id number] Univers 14:00:00 14:39:27 Visit Harika Castellon Claude HEALTH 350.1.13.10 ity of [place] 4.2.7.2.686 Mason as JURGEN?BLEA [id number] Me layton FLORES [address] [facility] OFFICE [facility] 2023-05-23 2023-05-23 [facility] [id number] Univers 13:00:00 13:46:37 HARIKA itdevante [facility] 2023-05-23 2023-05-23 Office [facility] 1.2.840.114 [id number] Univers 13:00:00 13:46:37 Visit Harika Claude HEALTH 350.1.13.10 i [facility] 4.2.7.2.686 Mason as JURGEN?BLEA [phone] Me layton FLORES [address] [facility] OFFICE [facility] 2023-05-22 2023-05-22 Telephone [facility] [id number] Univers 00:00:00 00:00:00 [place] HEALTH 350.1.13.10 it y of [place] 4.2.7.2.686 Mason as JURGEN?BLEA [id number] Nd layton FLORES [address] [facility] OFFICE [facility] 2023-04-11 2023-04-11 Outpatient SFA [facility] [id number] Sonido 14:02:45 14:02:45 [id number] F Abel 2023-01-03 2023-01-03 [facility] 1.2.840.114 [id number] Univers 00:00:00 00:00:00 [facility] Utilize Health 350.1.13.10 it y of [place] 4.2.7.2.686 [place] as JURGEN?BLEA [id number] [address] OFFICE [facility] 2023-01-03 2023-01-03 Patient Doctor [facility] 1.2.840.114 [id number] Univers 00:00:00 00:00:00 Secure Msg Unassigned, HEALTH 350.1.13.10 ity of [place] 4.2.7.2.686 Mason as JURGEN?BLEA [id number] [address] 2022-12-23 2022-12-23 Telephone Jarad [facility] 1.2.400.909 [id number] Univers 00:00:00 00:00:00 [facility] Utilize Health 350.1.13.10 it y of [place] 4.2.7.2.686 Mason as JURGEN?BLEA [id number] [address] 2022-11-26 2022-11-26 Outpatient R JARAD [facility] [id number] Univers 12:00:00 12:00:00 [facility] 2022-09-20 2022-09-20 [facility] 1.2.840.114 [id number] Univers 00:00:00 00:00:00 [facility] Utilize Health 350.1.13.10 it y of [place] 4.2.7.2.686 Mason as JURGEN?BLEA [id number] [address] 2022-06-11 2022-06-11 Outpatient R JARAD [facility] [id number] Univers 12:00:00 12:40:04 [facility] 2022-06-11 2022-06-11 Office Jarad [facility] 1.2.840.114 [id number] Univers 12:00:00 12:40:04 Visit [facility] 350.1.13.10 it y [facility] 4.2.7.2.686 Mason as JURGEN?BLEA [id number] Nd layton [address] MEDICAL OFFICE BUILDING 2022-06-11 2022-06-11 Outpatient R JARAD [facility] [id number] Univers 12:00:00 12:00:00 WENTPOLLOK ity [facility] 2022-06-11 2022-06-11 Orders Doctor LAZARO 1.2.840.114 [id number] Univers 00:00:00 00:00:00 Only Unassigned, GENARO 350.1.13.10 ity of [place] [facility] 4.2.7.2.686 Mason as [id number] [address] 2022-06-03 2022-06-03 Patient Doctor LAZARO 1.2.840.114 [id number] Univers 00:00:00 00:00:00 Secure Msg Unassigned, GENARO 350.1.13.10 ity of [place] [facility] 4.2.7.2.686 Mason as [phone] [address] 2022-02-25 2022-02-25 Orders Doctor LAZARO 1.2.840.114 [id number] Univers 00:00:00 00:00:00 Only Unassigned, GENARO 350.1.13.10 ity of [place] [facility] 4.2.7.2.686 Mason as [id number] [address] 2020-11-22 2020-11-22 Outpatient LIZY Corrales REFE [id number] [facility] 14:51:00 14:51:00 Natalie 76 [facility] 2020-09-26 2020-09-26 Outpatient ISAAC CorralesU REFE [id number] [facility] 17:05:00 17:05:00 Natalie 75 [facility] 2020-09-20 2020-09-20 [facility] 1.2.840.114 [id number] 00:00:00 00:00:00 Beatriz Duval 350.1.13.10 [place] 4.2.7.2.686 Professio [phone] [address] 2020-07-16 2020-07-16 Refill Jarad [facility] 1.2.840.114 [id number] 00:00:00 00:00:00 Beatriz Holcomb 350.1.13.10 [place] 4.2.7.2.686 [place] [id number] [facility] 220 [facility] 2020-06-20 2020-06-20 Outpatient R JARAD [facility] [id number] Univers 10:00:00 10:00:00 BEATRIZ [facility] 2020-05-30 2020-05-30 Outpatient R [facility] [id number] Univers 08:00:00 08:00:00 [facility] 2020-05-09 2020-05-09 Outpatient R JARAD [facility] [id number] Univers 14:00:00 14:00[facility] 2020-01-05 2020-01-05 Outpatient R JARAD [facility] [id number] Univers 11:00:00 11:00:00 [facility] Results Test Description Test Time Test Comments Results Result Comments Source POCT HEMOGLOBIN A1C TEST 2022-06-11 16:56:00 Test Item Value Reference Range Interpretation Comme nts POCT HBA1C (test code = 4548-4) 14 % 4-6 A Lab Interpretation (test code = 81770-5) [facility] [id number] 07:05:48 Test Item Value Reference Range Interpretation Comments HEMOGLOBIN A1c (test 12.7 % 4.2-5.6 H [employer] code = 78971) ASSOCIATION IDELINES FOR HGB A1C: PREDIABETES/INC REASED [...] INDICATED, ALL TESTING PER FORMED ATCLINICAL PATH OLOGY LABORATORIES, [place]. [address] [place] [address] LABORATORY DIRE CTOR: Ca HOOVER. CLIA NUMBER [id number] CAP ACCREDITATION N O. [id number] ALBUMIN/CREATININE RATIO, URINE, [id number] 04:35:05 Test Item Value Reference Range Interpretation Comments CREATININE, URINE, 151.8 MG/DL NOT ESTAB RANDOM (test code = 2072) ALBUMIN, URINE, 212.2 MG/DL NOT ESTAB RANDOM (test code = 34200) CALC ALBUMIN/CREAT, 1398 MG/G <30 H Note: RND (test code = Albumin/Cre atinine 57359) ratio reference interval reflec ts ADA and NKF guideli svitlana. PLACENTA THIRD [id number] 11:28:00 Test Item Value Reference Range Interpretation Comments PLACENTA THIRD TRIMESTER (test code = PLACIII) RUN DATE: 12/07/20 [facility] PAGE 1 RUN TIME: 1403 Specimen Inquiry RUN USER: INTERFACE PATIENT: TASHI MOSQUERA LOC: MICHAEL U #: [id number] AGE/SX: 25/F ROOM: 2029 RE11/29/20REG DR: Natalie Corrales MD : 94 BED: A DIS: 12/03/20 STATUS: DIS IN TLOC: SPEC #: [id number] RECD: 12/01/20 STATUS: REKHA KO #: [id number] THERESE: 11/30/20- SUBM DR: Natalie Corrales MD ENTERED: 12/01/20 SP TYPE: PLACIII OTHR DR: ORDERED: LEVEL V SURGICA CODES: AF9034 - PLACENTA, NOS PROCEDURES: LEVEL V SURGICA [...] risk for recurrence in future pregnancies. CPT: 70517 [facility]/wpd GROSS DESCRIPTION The specimen was received in a container, labeled with the patient's name, unit number and designated "placenta". The following attributes are observed: Cord insertion: 1 cm from margin CONTINUED ON NEXT PAGE RUN DATE: 12/07/20 [facility] PAGE 2 RUN TIME: 1403 Specimen Inquiry RUN USER: INTERFACE SPEC #: [id number] PATIENT: TASHI MOSQUERA #[id number] (Continued) --- GROSS DESCRIPTION (Continued) Cord length: [...] Olive Young 12/07/20 1128 END OF REPORT [id number] 11:58:00 Test Item Value Reference Range Interpretation Comments GLUBED (test code = GLUBED) 71 mg/dL 65-110 N [id number] 06:51:00 Test Item Value Reference Range Interpretation Comments GLUBED (test code = GLUBED) 80 mg/dL 65-110 N [id number] 21:24:00 Test Item Value Reference Range Interpretation Comments GLUBED (test code = GLUBED) 103 mg/dL 65-110 N [id number] 15:15:00 Test Item Value Reference Range Interpretation Comments GLUBED (test code = GLUBED) 206 mg/dL 65-110 H [id number] 09:56:00 Test Item Value Reference Range Interpretation Comments GLUBED (test code = GLUBED) 200 mg/dL 65-110 H [id number] 06:48:00 Test Item Value Reference Range Interpretation Comments GLUBED (test code = GLUBED) 64 mg/dL 65-110 L [id number] 21:12:00 Test Item Value Reference Range Interpretation Comments GLUBED (test code = GLUBED) 186 mg/dL 65-110 H [id number] 14:15:00 Test Item Value Reference Range Interpretation Comments GLUBED (test code = GLUBED) 177 mg/dL 65-110 H [id number] 10:42:00 Test Item Value Reference Range Interpretation Comments GLUBED (test code = GLUBED) 242 mg/dL 65-110 H HGB [id number] 08:21:00 Test Item Value Reference Range Interpretation Comments HEMOGLOBIN (test code = HGB) 11.7 g/dL 10.7-13.9 N HEMATOCRIT (test code = HCT) 36.4 % 32.1-42.1 N [id number] 06:49:00 Test Item Value Reference Range Interpretation Comments GLUBED (test code = GLUBED) 115 mg/dL 65-110 H [id number] 22:46:00 Test Item Value Reference Range Interpretation Comments GLUBED (test code = GLUBED) 129 mg/dL 65-110 H [id number] 19:28:00 Test Item Value Reference Range Interpretation Comments GLUBED (test code = GLUBED) 221 mg/dL 65-110 H [id number] 17:42:00 Test Item Value Reference Range Interpretation Comments GLUBED (test code = GLUBED) 359 mg/dL 65-110 H [id number] 10:51:00 Test Item Value Reference Range Interpretation Comments GLUBED (test code = GLUBED) 126 mg/dL 65-110 H ARTERIAL BLOOD [id number] 10:01:00 Test Item Value Reference Range Interpretation [...] FIO2 (test code = FIO2A) 21.0 % PaO2/[id number] 10:01:00 Test Item Value Reference Range Interpretation Comments PaO2/FiO2 (test code = JXE4ASC5) mm/Hg ARTERIAL BLOOD [id number] 10:01:00 Test Item Value Reference Range Interpretation [...] FIO2 (test code = FIO2A) 21.0 % PaO2/[id number] 10:01:00 Test Item Value Reference Range Interpretation Comments PaO2/FiO2 (test code = WYX4MFW4) 70.40 mm/Hg CAPILLARY BLOOD [id number] 10:00:00 Test Item Value Reference Range Interpretation [...] FIO2 (test 21.0 % code = FIO2C) [id number] 06:32:00 Test Item Value Reference Range Interpretation Comments GLUBED (test code = GLUBED) 183 mg/dL 65-110 H [id number] 02:15:00 Test Item Value Reference Range Interpretation Comments GLUBED (test code = GLUBED) 82 mg/dL 65-110 N [id number] 22:52:00 Test Item Value Reference Range Interpretation Comments GLUBED (test code = GLUBED) 200 mg/dL 65-110 H AG HEPATITIS B [id number] 22:46:00 Test Item Value Reference Range Interpretation Comments AG HEPATITIS B SURFACE (test code NONREACTIVE NONREACTIVE = HBSAG) IS CONSENT FORM SIGNED FOR HIV TESTING? YAB HEPATITIS C [id number] 22:46:00 Test Item Value Reference Range Interpretation Comments AB HEPATITIS C (test code = NONREACTIVE NONREACTIVE HCVAB) SIGNAL TO CUTOFF (test code = 0.03 <0.80 N CUTOFF) IS CONSENT FORM SIGNED FOR HIV TESTING? YAB [id number] 22:46:00 Test Item Value Reference Range Interpretation Comments AB TREPONEMA (test code = TREPAB) NONREACTIVE NONREACTIVE IS CONSENT FORM SIGNED FOR HIV TESTING? YAB HIV 1 22:46:00 Test Item Value Reference Range Interpretation Comments AB HIV 1 2 (test NONREACTIVE NONREACTIVE [facility] by [facility] code = COK85DT) 4th Gen HIV Ag/Ab Combo Screen IS CONSENT FORM SIGNED FOR HIV TESTING? YAG HEPATITIS B [id number] 22:16:00 Test Item Value Reference Range Interpretation Comments AG HEPATITIS B SURFACE (test code NONREACTIVE NONREACTIVE = HBSAG) IS CONSENT FORM SIGNED FOR HIV TESTING? YAB HEPATITIS C [id number] 22:16:00 Test Item Value Reference Range Interpretation Comments AB HEPATITIS C (test code = HCVAB) NONREACTIVE SIGNAL TO CUTOFF (test code = CUTOFF) <0.80 IS CONSENT FORM SIGNED FOR HIV TESTING? YAB [id number] 22:16:00 Test Item Value Reference Range Interpretation Comments AB TREPONEMA (test code = TREPAB) NONREACTIVE NONREACTIVE IS CONSENT FORM SIGNED FOR HIV TESTING? YAB HIV 1 22:16:00 Test Item Value Reference Range Interpretation Comments AB HIV 1 2 (test code = XEF69XK) NONREACTIVE IS CONSENT FORM SIGNED FOR HIV TESTING? YCBC W/AUTO [id number] 21:47:00 Test Item Value Reference Range Interpretation [...] code = PLTMR) COVID 19 Asymptomatic IH [id number] 21:44:00 Test Item Value Reference Range Interpretation [...] and/o r diagnosis of CO VID-19 under Eaewsmc69 4(b)(1) of the Act, 21 U.S .C. 360bbb-3(b)(1), unless theauthorizatio n is terminated or r evoked sooner. [id number] 10:30:00 Test Item Value Reference Range Interpretation Comments GLUBED (test code = GLUBED) 105 mg/dL 65-110 N [id number] 06:29:00 Test Item Value Reference Range Interpretation Comments GLUBED (test code = GLUBED) 126 mg/dL 65-110 H [id number] 01:02:00 Test Item Value Reference Range Interpretation Comments GLUBED (test code = GLUBED) 72 mg/dL 65-110 N [id number] 20:42:00 Test Item Value Reference Range Interpretation Comments GLUBED (test code = GLUBED) 88 mg/dL 65-110 N [id number] 14:39:00 Test Item Value Reference Range Interpretation Comments GLUBED (test code = GLUBED) 149 mg/dL 65-110 H [id number] 11:20:00 Test Item Value Reference Range Interpretation Comments GLUBED (test code = GLUBED) 74 mg/dL 65-110 N [id number] 06:28:00 Test Item Value Reference Range Interpretation Comments GLUBED (test code = GLUBED) 103 mg/dL 65-110 N [id number] 06:28:00 Test Item Value Reference Range Interpretation Comments GLUBED (test code = GLUBED) 76 mg/dL 65-110 N [id number] 22:06:00 Test Item Value Reference Range Interpretation Comments GLUBED (test code = GLUBED) 78 mg/dL 65-110 N [id number] 16:07:00 Test Item Value Reference Range Interpretation Comments GLUBED (test code = GLUBED) 167 mg/dL 65-110 H [id number] 10:42:00 Test Item Value Reference Range Interpretation Comments GLUBED (test code = GLUBED) 130 mg/dL 65-110 H [id number] 04:47:00 Test Item Value Reference Range Interpretation Comments GLUBED (test code = GLUBED) 78 mg/dL 65-110 N [id number] 20:47:00 Test Item Value Reference Range Interpretation Comments GLUBED (test code = GLUBED) 160 mg/dL 65-110 H [id number] 14:52:00 Test Item Value Reference Range Interpretation Comments GLUBED (test code = GLUBED) 235 mg/dL 65-110 H [id number] 10:54:00 Test Item Value Reference Range Interpretation Comments GLUBED (test code = GLUBED) 148 mg/dL 65-110 H [id number] 07:01:00 Test Item Value Reference Range Interpretation Comments GLUBED (test code = GLUBED) 82 mg/dL 65-110 N [id number] 06:05:00 Test Item Value Reference Range Interpretation Comments GLUBED (test code = GLUBED) 61 mg/dL 65-110 L [id number] 20:39:00 Test Item Value Reference Range Interpretation Comments GLUBED (test code = GLUBED) 312 mg/dL 65-110 H COMPREHENSIVE METABOLIC [id number] 17:32:00 Test Item Value Reference Range Interpretation [...] be considered for these patients. GLYCOSYLATED HEMOGLOBIN [id number] 17:32:00 Test Item Value Reference Range Interpretation [...] MG/DL 70-110 H (test code = MBG) AG HEPATITIS B [id number] 15:30:00 Test Item Value Reference Range Interpretation Comments AG HEPATITIS B SURFACE (test code NONREACTIVE NONREACTIVE = HBSAG) IS CONSENT FORM SIGNED FOR HIV TESTING? YAB HEPATITIS C [id number] 15:30:00 Test Item Value Reference Range Interpretation Comments AB HEPATITIS C (test code = NONREACTIVE NONREACTIVE HCVAB) SIGNAL TO CUTOFF (test code = 0.02 <0.80 N CUTOFF) IS CONSENT FORM SIGNED FOR HIV TESTING? YAB [id number] 15:30:00 Test Item Value Reference Range Interpretation Comments AB TREPONEMA (test code = TREPAB) NONREACTIVE NONREACTIVE IS CONSENT FORM SIGNED FOR HIV TESTING? YAB HIV 1 15:30:00 Test Item Value Reference Range Interpretation Comments AB HIV 1 2 (test NONREACTIVE NONREACTIVE Done by [facility] code = JTO30UZ) 4th Gen HIV Ag/Ab Combo Screen IS CONSENT FORM SIGNED FOR HIV TESTING? [id number] 15:23:00 Test Item Value Reference Range Interpretation Comments GLUBED (test code = GLUBED) 266 mg/dL 65-110 H COVID 19 Asymptomatic IH [id number] 15:16:00 Test Item Value Reference Range Interpretation [...] and/o r diagnosis of CO VID-19 under Ykwqrgr29 4(b)(1) of the Act, 21 U.S .C. 360bbb-3(b)(1), unless theauthorizatio n is terminated or r evoked sooner. AG HEPATITIS B [id number] 15:08:00 Test Item Value Reference Range Interpretation Comments AG HEPATITIS B SURFACE (test code NONREACTIVE NONREACTIVE = HBSAG) IS CONSENT FORM SIGNED FOR HIV TESTING? YAB HEPATITIS C [id number] 15:08:00 Test Item Value Reference Range Interpretation Comments AB HEPATITIS C (test code = HCVAB) NONREACTIVE SIGNAL TO CUTOFF (test code = CUTOFF) <0.80 IS CONSENT FORM SIGNED FOR HIV TESTING? YAB [id number] 15:08:00 Test Item Value Reference Range Interpretation Comments AB TREPONEMA (test code = TREPAB) NONREACTIVE NONREACTIVE IS CONSENT FORM SIGNED FOR HIV TESTING? YAB HIV 1 15:08:00 Test Item Value Reference Range Interpretation Comments AB HIV 1 2 (test code = PKO34PI) NONREACTIVE IS CONSENT FORM SIGNED FOR HIV TESTING? YUR PROTEIN/CREATININE [id number] 14:46:00 Test Item Value Reference Range Interpretation Comments UR PROTEIN RANDOM (test code = 11.5 mg/dL PROTU) UR CREATININE RANDOM (test 24.6 mg/dL code = CREATU) PROTEIN/CREATININE RATIO (test 460.0 mg/gcrea <200 H code = P/CRATIO) COMPREHENSIVE METABOLIC [id number] 14:38:00 Test Item Value Reference Range Interpretation [...] (HA1C) (test code = GLYHGB) CBC W/AUTO [id number] 14:26:00 Test Item Value Reference Range Interpretation [...] NORMAL NORMAL code = PLTMR) - US [id number] 06:06:00 [facility] : 1995 Sex: F Patient Name: TASHI MOSQUERA Unit No: [id number] EXAMS: CPT CODE: [id number] [place] LTD 94369 STUDY: - US LTD 09/28/2020 5:04 AM Ordering Physician: Cipriano Alex III, MD Patient Name: TASHI MOSQUERA MR: [id number] : 1995; Age: 25 years y/o Female [...] 3 days as above described. The [facility] NAME: TASHI MOSQUERA Radiology Department PHYS: Cipriano Michelle III, MD [address] : 1995 AGE: 25 SEX: F [place], [place] [address] LOC: AnupTONY PHONE #: [phone] EXAM DATE: 09/28/2020 STATUS: REGER FAX #: [phone] RAD NO: Page 1 Signed Report (CONTINUED) Patient Name: TASHI MOSQUERA Unit No: [id number] EXAMS: CPT CODE: [id number] LTD 17305 (Continued) ALEXY 17.8 cm. Trace fluid in [...] Cipriano Alex III, MD Technologist: ERICA ZHOU RDSD, T Probe: Trnscrbd D/ (0606) JosefinaTP6 Orig Print D/T: S: 09/28/2020 (0609) [facility] NAME: [facility] Radiology Department PHYS: Cipriano Michelle III, MD [address] : 1995 AGE: 25 SEX: F [place] [address] LOC: AnupTONY PHONE #: [phone] EXAM DATE: 09/28/2020 STATUS: REG ER FAX #: [phone] RAD NO: Page 2 Signed Report Patient Name: [facility] Unit No: [id number] EXAMS: CPT CODE: [id number] LTD 00162 (Continued) [facility] NAME: [facility] Radiology Department PHYS: Cipriano Michelle III, MD [address] : 1995 AGE: 25 SEX: F [place] [address] LOC: AnupTONY PHONE #: [phone] EXAM DATE: 09/28/2020 STATUS: REG ER FAX #: [phone] RAD NO: Page 3 Signed ReportURINALYSIS [id number] 05:32:00 Test Item Value Reference Range Interpretation [...] SEEN Specimen Comment: JOSE ROSALES SAMPLE: CLEAN [id number] 05:29:00 Test Item Value Reference Range Interpretation Comments GLUBED (test code = GLUBED) 91 mg/dL 65-110 N [id number] 14:54:00 Test Item Value Reference Range Interpretation Comments GLUBED (test code = GLUBED) 95 mg/dL 65-110 N [id number] 14:54:00 Test Item Value Reference Range Interpretation Comments GLUBED (test code = GLUBED) 124 mg/dL 65-110 H [id number] 14:54:00 Test Item Value Reference Range Interpretation Comments GLUBED (test code = GLUBED) 131 mg/dL 65-110 H COMPREHENSIVE METABOLIC [id number] 12:46:00 Test Item Value Reference Range Interpretation [...] 44 units/L 46-116 L code = ALKP) [id number] 12:46:00 Test Item Value Reference Range Interpretation Comments PHOSPHOROUS (test code = PHOS) 1.6 mg/dL 2.5-4.9 L [id number] 12:46:00 Test Item Value Reference Range Interpretation Comments MAGNESIUM (test code = MAG) 1.7 mg/dL 1.8-2.4 L CBC W/AUTO [id number] 12:04:00 Test Item Value Reference Range Interpretation [...] REQUIRED (test NORMAL NORMAL code = PLTMR) [id number] 10:33:00 Test Item Value Reference Range Interpretation Comments GLUBED (test code = GLUBED) 136 mg/dL 65-110 H [id number] 10:33:00 Test Item Value Reference Range Interpretation Comments GLUBED (test code = GLUBED) 180 mg/dL 65-110 H COMPREHENSIVE METABOLIC [id number] 07:48:00 Test Item Value Reference Range Interpretation [...] 42 units/L 46-116 L code = ALKP) [id number] 07:48:00 Test Item Value Reference Range Interpretation Comments PHOSPHOROUS (test code = PHOS) 1.6 mg/dL 2.5-4.9 L [id number] 07:48:00 Test Item Value Reference Range Interpretation Comments MAGNESIUM (test code = MAG) 1.6 mg/dL 1.8-2.4 L [id number] 07:06:00 Test Item Value Reference Range Interpretation Comments GLUBED (test code = GLUBED) 184 mg/dL 65-110 H [id number] 06:27:00 Test Item Value Reference Range Interpretation Comments GLUBED (test code = GLUBED) 187 mg/dL 65-110 H COMPREHENSIVE METABOLIC [id number] 05:46:00 Test Item Value Reference Range Interpretation [...] 42 units/L 46-116 L code = ALKP) [id number] 05:46:00 Test Item Value Reference Range Interpretation Comments MAGNESIUM (test code = MAG) 1.6 mg/dL 1.8-2.4 L CBC W/AUTO [id number] 05:34:00 Test Item Value Reference Range Interpretation [...] REQUIRED (test NORMAL NORMAL code = PLTMR) [id number] 05:22:00 Test Item Value Reference Range Interpretation Comments GLUBED (test code = GLUBED) 208 mg/dL 65-110 H [id number] 04:21:00 Test Item Value Reference Range Interpretation Comments GLUBED (test code = GLUBED) 210 mg/dL 65-110 H [id number] 03:22:00 Test Item Value Reference Range Interpretation Comments GLUBED (test code = GLUBED) 229 mg/dL 65-110 H [id number] 02:22:00 Test Item Value Reference Range Interpretation Comments GLUBED (test code = GLUBED) 247 mg/dL 65-110 H [id number] 01:34:00 Test Item Value Reference Range Interpretation Comments GLUBED (test code = GLUBED) 261 mg/dL 65-110 H [id number] 00:21:00 Test Item Value Reference Range Interpretation Comments GLUBED (test code = GLUBED) 276 mg/dL 65-110 H [id number] 23:23:00 Test Item Value Reference Range Interpretation Comments GLUBED (test code = GLUBED) 282 mg/dL 65-110 H [id number] 22:29:00 Test Item Value Reference Range Interpretation Comments GLUBED (test code = GLUBED) 193 mg/dL 65-110 H [id number] 22:29:00 Test Item Value Reference Range Interpretation Comments GLUBED (test code = GLUBED) 172 mg/dL 65-110 H [id number] 22:29:00 Test Item Value Reference Range Interpretation Comments GLUBED (test code = GLUBED) 123 mg/dL 65-110 H [id number] 22:29:00 Test Item Value Reference Range Interpretation Comments GLUBED (test code = GLUBED) 158 mg/dL 65-110 H [id number] 22:29:00 Test Item Value Reference Range Interpretation Comments GLUBED (test code = GLUBED) 192 mg/dL 65-110 H COMPREHENSIVE METABOLIC [id number] 21:00:00 Test Item Value Reference Range Interpretation [...] units/L 46-116 TOTAL (test code = ALKP) [id number] 21:00:00 Test Item Value Reference Range Interpretation Comments PHOSPHOROUS (test code = PHOS) 1.8 mg/dL 2.5-4.9 L [id number] 21:00:00 Test Item Value Reference Range Interpretation Comments MAGNESIUM (test code = MAG) 1.4 mg/dL 1.8-2.4 L OSMOLALITY [id number] 20:51:00 Test Item Value Reference Range Interpretation Comments OSMOLALITY SERUM (test code = 296 mOsm/kg 275-295 H OSMO) OSMOLALITY [id number] 20:51:00 Test Item Value Reference Range Interpretation [...] method used. HG BA1c results from nicole [facility]ers[facility]ce[facility] HbSS, HbCC, and HbSc must be interpreted with cautiongiven th e pathological pr ocesses, including anemi a,increased red cell turnov er, transfusion req uirements, thatadversely i mpact HGBA1c as a mar ker of long-term glyce miccontrol. Alternative for ms of testing such as fructosaminesho uld be considered for these patients. GLYCOSYLATED HEMOGLOBIN [id number] 20:49:00 Test Item Value Reference Range Interpretation [...] H (test code = MBG) CBC W/AUTO [id number] 19:25:00 Test Item Value Reference Range Interpretation [...] NORMAL NORMAL code = PLTMR) VBG IONIZED [id number] 19:21:00 Test Item Value Reference Range Interpretation Comments VBG IONIZED CALCIUM (test code = 1.06 mmol/L 0.9-1.29 N ICAL/VBG) COMPREHENSIVE METABOLIC [id number] 19:09:00 Test Item Value Reference Range Interpretation Comments SODIUM (test code = 135 mEq/L 135-145 N NA) POTASSIUM (test code 3.9 mEq/L 3.5-5.0 N = K) CHLORIDE (test code 104 mEq/L 100-115 N = CL) CARBON DIOXIDE (test 10 mEq/L 22-31 LL RESULTS VERIFIED BY code = CO2) REPEAT ANALYSIS RESULTS CALLED TO PATRICK CISNEROS BACK & CONFIRME D? .BY GELYTTT 09/26 190. ANION GAP (test code 24.20 10-20 H [...] 46-116 N TOTAL (test code = ALKP) [id number] 19:09:00 Test Item Value Reference Range Interpretation Comments PHOSPHOROUS (test code = PHOS) 1.9 mg/dL 2.5-4.9 L [id number] 19:09:00 Test Item Value Reference Range Interpretation Comments MAGNESIUM (test code = MAG) 1.5 mg/dL 1.8-2.4 L [id number] 17:36:00 Test Item Value Reference Range Interpretation Comments GLUBED (test code = GLUBED) 212 mg/dL 65-110 H UR PROTEIN/CREATININE [id number] 17:25:00 Test Item Value Reference Range Interpretation Comments UR PROTEIN RANDOM 56.6 mg/dL (test code = PROTU) UR CREATININE 11.1 mg/dL RANDOM (test code = CREATU) PROTEIN/CREATININE 5090.0 <200 H RESULTS V ERIFIED BY RATIO (test code = mg/gcrea REPEAT AN ALYSISRESULTS P/CRATIO) CALLED TO SASHA READ BACK & CONFIRME D? YESSAVANNAH FNithinLAB.TTT 09/26 2025 COMPREHENSIVE METABOLIC [id number] 17:24:00 Test Item Value Reference Range Interpretation Comments SODIUM (test code = 136 mEq/L 135-145 N NA) POTASSIUM (test code 4.7 mEq/L 3.5-5.0 N = K) CHLORIDE (test code 103 mEq/L 100-115 N = CL) CARBON DIOXIDE (test 11 mEq/L 22-31 LL RESULTS VERIFIED BY code = CO2) REPEAT ANALYSIS RESULTS CALLED TO SASHA READ BACK & CONFIRME D? YES.BY F.LAB.TT T 09/26/20 0598. ANION GAP (test code 26.90 10-20 H [...] 46-116 N TOTAL (test code = ALKP) [id number] 17:24:00 Test Item Value Reference Range Interpretation Comments PHOSPHOROUS (test code = PHOS) 2.9 mg/dL 2.5-4.9 N [id number] 17:24:00 Test Item Value Reference Range Interpretation Comments AMYLASE (test code = CHELSIE) 77 units/L 30-110 N [id number] 17:24:00 Test Item Value Reference Range Interpretation Comments MAGNESIUM (test code = MAG) 1.7 mg/dL 1.8-2.4 L C REACTIVE [id number] 17:08:00 Test Item Value Reference Range Interpretation Comments C REACTIVE PROTEIN (test code = 0.2 mg/dL 0.6-1.2 L CRP) URINALYSIS [id number] 17:00:00 Test Item Value Reference Range Interpretation [...] = MUCU) RARE NONE SEEN CBC W/AUTO [id number] 16:53:00 Test Item Value Reference Range Interpretation [...] NORMAL NORMAL code = PLTMR) COMPREHENSIVE METABOLIC [id number] 13:57:00 Test Item Value Reference Range Interpretation [...] 48 units/L 46-116 N code = ALKP) [id number] 13:57:00 Test Item Value Reference Range Interpretation Comments LIPASE (test code = LIP) 85 units/L 73-393 N ACETONE [id number] 13:57:00 Test Item Value Reference Range Interpretation Comments ACETONE QUAL (test code = ACETNQL) NEGATIVE NEGATIVE BETA [id number] 13:57:00 Test Item Value Reference Range Interpretation Comments BETA HYDROBUTYRATE (test 2.2 mg/dL () Ref erence Range:All code = BETHYD) Ages (fasting ): 0.2 - 2.8Performed At: [facility] [address] [place] [address] [id number] danial Blanton MD Ph:[phone] [id number] 13:24:00 Test Item Value Reference Range Interpretation Comments GLUBED (test code = GLUBED) 169 mg/dL 65-110 H [id number] 11:17:00 Test Item Value Reference Range Interpretation Comments GLUBED (test code = GLUBED) 91 mg/dL 65-110 N [id number] 07:59:00 Test Item Value Reference Range Interpretation Comments GLUBED (test code = GLUBED) 162 mg/dL 65-110 H - US PREG UT [id number] 04:23:00 Patient Name: TASHI MOSQUERA Unit No: [id number] EXAMS: CPT CODE: [id number] US PREG UT TRANSVAGINAL 75180 STUDY: - US LTD, - US PREG UT TRANSVAGINAL 08/05/2020 12:59 AM Ordering Physician: Shira Arredondo MD Patient Name: TASHI MOSQUERA MR: [id number] : 1995; Age: 25 years y/o Female [...] performed Small free pelvic fluid. The [facility] NAME: TASHI MOSQUERA Radiology Department PHYS: Natalie Foley MD [address] : 1995 AGE: 25 SEX: F [place] [address] LOC: Anup2624 Claude PHONE #: [phone] EXAM DATE: 08/05/2020 STATUS: ADM IN FAX #: [phone] RAD NO: Page 1 Signed Report (CONTINUED) Patient Name: TASHI MOSQUERA Unit No: [id number] EXAMS:CPT CODE: [id number] PREG UT TRANSVAGINAL 51570 (Continued) IMPRESSION: Single live intrauterine at 19 [...] 4. Repeat sonograms may be necessary depending onthe clinical development during . SL: TPAINTER-H . at 0423 Reported and signed by: Arpit Jaffe MD CC: Natalie Corrales MD Technol ogist: Charlotte Kidd RDMS Probe: [id number] Trnscrbd D/ (0423) JosefinaTP6 Orig Print D/T: S: 08/05/2020 (0426) [facility] NAME: TASHI MOSQUERA Radiology Department PHYS: Natalie Foley MD [address] : 1995 AGE: 25 SEX: F [place] [address] LOC: F.2624 A PHONE #: [phone] EXAM DATE: 08/05/2020 STATUS: ADM IN FAX #: [phone] RAD NO: Page 2 Signed Report Patient Name: TASHI MOSQUERA Unit No: [id number] EXAMS: CPT CODE: [id number] US PREG UT TRANSVAGINAL 29788 (Continued) [facility] NAME: TASHI MOSQUERA Radiology Department PHYS: Natalie Foley MD [address] : 1995 AGE: 25 SEX: F [place], [place] [address] LOC: F.2624 A PHONE #: [phone] EXAM DATE: 08/05/2020 STATUS: ADM INFAX #: [phone] RAD NO: Page 3 Signed Report- US [id number] 04:23:00 Patient Name: TASHI MOSQUERA Unit No: [id number] EXAMS: CPT CODE: [id number] US LTD [address]148 STUDY: - US LTD, - US PREG UT TRANSVAGINAL 08/05/2020 12:59 AM Ordering Physician: Shira Arredondo MD Patient Name: TASHI MOSQUERA MR: [id number] : 1995; Age: 25 years y/o Female [...] performed Small free pelvic fluid. The [facility] NAME: TASHI MOSQUERA Radiology Department PHYS: Shira Van MD [address] : 1995 AGE: 25 SEX: F [place], [place] [address] LOC: Loraine Arce PHONE #: [phone] EXAM DATE: 08/05/2020 STATUS: ADM IN FAX #: [phone] RAD NO: Page 1 Signed Report (CONTINUED) Patient Name: TASHI MOSQUERA Unit No: [id number] EXAMS: CPTCODE: [id number] LTD 90680 (Continued) IMPRESSION: Single live intrauterine at19 weeks 5 days. Trace fluid in the endocervical canal. The structures are not individually characterized on this examination, but no abnormality is appreciated. Small free pelvic fluid. Low-lying posterior grade 1 placenta with tip located 2.7 cm from the internal cervical os. GENERAL OBSERVATIONS REGARDING ULTRASOUND: 1. A normal or negative sonogram report should not delay furtherinvestigation of a clinically suspicious or abnormal . [...] Charlotte Kidd RDMS Probe: Trnscrbd D/ (042) JosefinaTP6 Orig Print D/T: S: 08/05/2020 (0426) [facility] Radiology Department PHYS: Shira Truong MD [address] : 1995 AGE: 25 SEX: F [place] [address] LOC: F.2624 A PHONE #: [phone] EXAM DATE: 08/05/2020 STATUS: ADM IN FAX #: [phone] RAD NO: Pa ge 2 Signed Report Patient Name: TASHI MOSQUERA Unit No: [id number] EXAMS: CPT CODE: [id number] LTD 31093 (Continued) [facility] NAME: [facility] Radiology Department PHYS: Shira Truong MD [address] : 1995 AGE: 25 SEX: F [place] [address] LOC: F.2624 A PHONE #: [phone] EXAM DATE: 08/05/2020 STATUS: ADM IN FAX #: [phone] RAD NO: Page 3 Signed ReportARTERIAL BLOOD GAS 2020-08-05 03:03:00 Test Item Value Reference Range Interpretation [...] FIO2 (test code = FIO2A) 21.0 % PaO2/[id number] 03:03:00 Test Item Value Reference Range Interpretation Comments PaO2/FiO2 (test code = PRF1CVF2) mm/Hg [id number] 03:03:00 Test Item Value Reference Range Interpretation Comments GLUCOSE (test code = GLU/ABG) 201 MG/DL 60-110 H ARTERIAL BLOOD [id number] 03:03:00 Test Item Value Reference Range Interpretation [...] FIO2 (test code = FIO2A) 21.0 % PaO2/[id number] 03:03:00 Test Item Value Reference Range Interpretation Comments PaO2/FiO2 (test code = VXS8LII4) 471.40 mm/Hg [id number] 03:03:00 Test Item Value Reference Range Interpretation Comments GLUCOSE (test code = GLU/ABG) 201 MG/DL 60-110 H COMPREHENSIVE METABOLIC [id number] 02:23:00 Test Item Value Reference Range Interpretation [...] 48 units/L 46-116 N code = ALKP) [id number] 02:23:00 Test Item Value Reference Range Interpretation Comments LIPASE (test code = LIP) 85 units/L 73-393 N ACETONE [id number] 02:23:00 Test Item Value Reference Range Interpretation Comments ACETONE QUAL (test code = ACETNQL) NEGATIVE NEGATIVE BETA [id number] 02:23:00 Test Item Value Reference Range Interpretation Comments BETA HYDROBUTYRATE (test code = BETHYD) COOXIMETRY [id number] 02:14:00 Test Item Value Reference Range Interpretation Comments HEMOGLOBIN (test code = HGB/ABG) 13.0 g/dL 12-16 N HEMATOCRIT (test code = HCT/ABG) 38 % 37-47 N METHEMOGLOBIN (test code = METHGB) 0.6 % 0.0-1.5 N VENOUS BLOOD [id number] 02:14:00 Test Item Value Reference Range Interpretation [...] code = 21.0 % FIO2V) CBC W/AUTO [id number] 02:00:00 Test Item Value Reference Range Interpretation [...] = PLTMR) UA RFLX MICR CULT IF [id number] 01:47:00 Test Item Value Reference Range Interpretation [...] Suprapubic PainSpecimen Description: CLEAN CATCH COMPREHENSIVE METABOLIC [id number] 01:47:00 Test Item Value Reference Range Interpretation [...] 48 units/L 46-116 N code = ALKP) [id number] 01:47:00 Test Item Value Reference Range Interpretation Comments LIPASE (test code = LIP) 85 units/L 73-393 N ACETONE [id number] 01:47:00 Test Item Value Reference Range Interpretation Comments ACETONE QUAL (test code = ACETNQL) NEGATIVE BETA [id number] 01:47:00 Test Item Value Reference Range Interpretation Comments BETA HYDROBUTYRATE (test code = BETHYD) ISLET CELL AB [id number] 14:36:00 Test Item Value Reference Range Interpretation Comments ISLET CELL AB Refer to individual AUTOVERIFICATION (test Islet Cell Ab code = 2556) and/or Islet Cell Ab Titer results. BLOOD [id number] 00:00:00 Test Item Value Reference Range Interpretation Comments CULTURE (BEAKER) (test No growth in 5 days code = 1095) BLOOD [id number] 00:00:00 Test Item Value Reference Range Interpretation Comments CULTURE (BEAKER) (test No growth in 5 days code = 1095) POCT-GLUCOSE [id number] 12:04:00 Test Item Value Reference Range Interpretation Comments POC-GLUCOSE METER 178 mg/dL 70-110 H TESTED AT [place] [address] [facility] (test code = [facility] 1538) [address] POCT-GLUCOSE [id number] 07:46:00 Test Item Value Reference Range Interpretation Comments POC-GLUCOSE METER 210 mg/dL 70-110 H TESTED AT [place] [address] ([facility]) (test code = [facility] 1538) [address] CBC (HEMOGRAM ONLY)2018-08-23 06:39:00 Test Item Value Reference Range Interpretation Comments WHITE BLOOD CELL COUNT ([facility]) 4.7 K/ L 3.5-10.5 (test code = 775) RED BLOOD CELL COUNT ([facility]) 4.38 M/ L 3.93-5.22 (test code = 761) HEMOGLOBIN (BEAKER) (test code = 13.3 GM/DL 11.2-15.7 410) HEMATOCRIT ([facility]) (test code = 40.2 % 34.1-44.9 411) MEAN CORPUSCULAR VOLUME ([facility]) 91.8 fL 79.4-94.8 (test code = 753) MEAN CORPUSCULAR HEMOGLOBIN 30.4 pg 25.6-32.2 (AKER) (test code = 751) MEAN CORPUSCULAR HEMOGLOBIN CONC 33.1 GM/DL 32.2-35.5 ([facility]) (test code = 752) RED CELL DISTRIBUTION WIDTH 12.9 % 11.7-14.4 ([facility]) (test code = 412) PLATELET COUNT ([facility]) (test 186 K/CU MM 150-450 code = 756) MEAN PLATELET VOLUME ([facility]) 10.6 fL 9.4-12.3 (test code = 754) NUCLEATED RED BLOOD CELLS 0 /100 WBC 0-0 ([facility]) (test code = 413) POCT-GLUCOSE [id number] 22:06:00 Test Item Value Reference Range Interpretation Comments POC-GLUCOSE METER 157 mg/dL 70-110 H TESTED AT [place] [address] ([facility]) (test code = [facility] 1538) [address] POCT-GLUCOSE [id number] 17:54:00 Test Item Value Reference Range Interpretation Comments POC-GLUCOSE METER 223 mg/dL 70-110 H TESTED AT [place] [address] ([facility]) (test code = [facility] 1538) [address] POCT-GLUCOSE [id number] 12:06:00 Test Item Value Reference Range Interpretation Comments POC-GLUCOSE METER 227 mg/dL 70-110 H TESTED AT [place] [address] ([facility]) (test code = [facility] 1538) [address] POCT-GLUCOSE [id number] 07:46:00 Test Item Value Reference Range Interpretation Comments POC-GLUCOSE METER 237 mg/dL 70-110 H TESTED AT [place] [address] ([facility]) (test code = [facility] 1538) [address] CBC (HEMOGRAM ONLY)2018-08-22 07:12:00 Test Item Value Reference Range Interpretation Comments WHITE BLOOD CELL COUNT ([facility]) 6.1 K/ L 3.5-10.5 (test code = 775) RED BLOOD CELL COUNT ([facility]) 4.62 M/ L 3.93-5.22 (test code = 761) HEMOGLOBIN ([facility]) (test code = 14.1 GM/DL 11.2-15.7 410) HEMATOCRIT ([facility]) (test code = 41.9 % 34.1-44.9 411) MEAN CORPUSCULAR VOLUME ([facility]) 90.7 fL 79.4-94.8 (test code = 753) MEAN CORPUSCULAR HEMOGLOBIN 30.5 pg 25.6-32.2 (AKER) (test code = 751) MEAN CORPUSCULAR HEMOGLOBIN CONC 33.7 GM/DL 32.2-35.5 ([facility]) (test code = 752) RED CELL DISTRIBUTION WIDTH 13.5 % 11.7-14.4 ([facility]) (test code = 412) PLATELET COUNT ([facility]) (test 220 K/CU MM 150-450 code = 756) MEAN PLATELET VOLUME ([facility]) 10.6 fL 9.4-12.3 (test code = 754) NUCLEATED RED BLOOD CELLS 0 /100 WBC 0-0 ([facility]) (test code = 413) POCT-GLUCOSE [id number] 21:37:00 Test Item Value Reference Range Interpretation Comments POC-GLUCOSE METER 264 mg/dL 70-110 H TESTED AT [place] [address] ([facility]) (test code = JOHANNY James [facility] 1538) [address] POCT-GLUCOSE [id number] 17:52:00 Test Item Value Reference Range Interpretation Comments POC-GLUCOSE METER 273 mg/dL 70-110 H TESTED AT [place] [address] ([facility]) (test code = JOHANNY James [facility] 1538) [address] POCT-GLUCOSE [id number] 11:57:00 Test Item Value Reference Range Interpretation Comments POC-GLUCOSE METER 316 mg/dL 70-110 H Notified R Rubén JOHANSEN/TESTED ([facility]) (test code = AT [place] [address] [facility] 7[address] 0 POCT-GLUCOSE [id number] 07:58:00 Test Item Value Reference Range Interpretation Comments POC-GLUCOSE METER 246 mg/dL 70-110 H TESTED AT [place] [address] ([facility]) (test code = JOHANNY James [facility] 1538) [address] [id number] 07:27:00 Test Item Value Reference Range Interpretation Comments PHOSPHORUS (BEAKER) (test code = 3.3 mg/dL 2.3-4.7 604) [id number] 07:27:00 Test Item Value Reference Range Interpretation Comments MAGNESIUM ([facility]) (test code = 2.1 mg/dL 1.6-2.6 627) COMPREHENSIVE METABOLIC [id number] 07:27:00 Test Item Value Reference Range Interpretation [...] NOT APPLICABLE FOR DIALYSIS PATIEN TS. CALCIUM, [id number] 07:03:00 Test Item Value Reference Range Interpretation Comments CALCIUM IONIZED (BEAKER) (test 1.12 mmol/L 1.12-1.27 code = 698) PH, BLOOD (BEAKER) (test code = 7.46 1810) CBC W/PLT COUNT & AUTO [id number] 06:38:00 Test Item Value Reference Range Interpretation [...] PERCENT (BEAKER) (test code = 2801) POCT-GLUCOSE [id number] 22:26:00 Test Item Value Reference Range Interpretation Comments POC-GLUCOSE METER 325 mg/dL 70-110 H Notified R Rubén JOHANSEN/TESTED (BEAKER) (test code = AT [facility] [address] [facility] 7703 0 POCT-GLUCOSE [id number] 21:46:00 Test Item Value Reference Range Interpretation Comments POC-GLUCOSE METER 312 mg/dL 70-[address] [facility] 67[address] (BEAKER) (test code = JOHANNY James [facility] 1538) [address] BASIC METABOLIC [id number] 21:39:00 Test Item Value Reference Range Interpretation [...] S NOT APPLICABLE FOR DIALYSIS PATIEN TS. [id number] 19:06:00 Test Item Value Reference Range Interpretation Comments PHOSPHORUS (BEAKER) (test code = 3.3 mg/dL 2.3-4.7 604) [id number] 19:06:00 Test Item Value Reference Range Interpretation Comments MAGNESIUM (BEAKER) (test code = 2.2 mg/dL 1.6-2.6 627) [id number] 17:17:00 Test Item Value Reference Range Interpretation Comments PHOSPHORUS (BEAKER) (test code = 3.3 mg/dL 2.3-4.7 604) [id number] 17:17:00 Test Item Value Reference Range Interpretation Comments MAGNESIUM (BEAKER) (test code = 2.3 mg/dL 1.6-2.6 627) BASIC METABOLIC [id number] 17:17:00 Test Item Value Reference Range Interpretation [...] NOT APPLICABLE FOR DIALYSIS PATIEN TS. POCT-GLUCOSE [id number] 17:15:00 Test Item Value Reference Range Interpretation Comments POC-GLUCOSE METER 86 mg/dL 70-110 TESTED AT [place] [address] ([facility]) (test code = [facility] [address] 1538) POCT-GLUCOSE [id number] 15:29:00 Test Item Value Reference Range Interpretation Comments POC-GLUCOSE METER 176 mg/dL 70-110 H TESTED AT [place] [address] ([facility] (test code = [facility] 1538) [id number] POCT-GLUCOSE [id number] 14:05:00 Test Item Value Reference Range Interpretation Comments POC-GLUCOSE METER 198 mg/dL 70-110 H TESTED AT [place] [address] ([facility]) (test code = [facility] 1538) [id number] POCT-GLUCOSE [id number] 13:02:00 Test Item Value Reference Range Interpretation Comments POC-GLUCOSE METER 148 mg/dL 70-110 H TESTED AT [place] [address] ([facility]) (test code = JOHANNY James [place] 1538) [id number] POCT-GLUCOSE [id number] 12:23:00 Test Item Value Reference Range Interpretation Comments POC-GLUCOSE METER 170 mg/dL 70-110 H TESTED AT [place] [address] ([facility]) (test code = JOHANNY James [place] 1538) [id number] 11:33:00 Test Item Value Reference Range Interpretation Comments PHOSPHORUS (BEAKER) (test code = 3.1 mg/dL 2.3-4.7 604) [id number] 11:33:00 Test Item Value Reference Range Interpretation Comments MAGNESIUM (BEAKER) (test code = 1.8 mg/dL 1.6-2.6 627) BASIC METABOLIC [id number] 11:33:00 Test Item Value Reference Range Interpretation [...] NOT APPLICABLE FOR DIALYSIS PATIEN TS. KETONE, [id number] 11:26:00 Test Item Value Reference Range Interpretation Comments KETONES, BLOOD (BEAKER) (test code 1.4 mmol/L <0.4 H = 1103) POCT-GLUCOSE [id number] 11:05:00 Test Item Value Reference Range Interpretation Comments POC-GLUCOSE METER 206 mg/dL 70-110 H TESTED AT [place] [address] (BEAKER) (test code = CANDIDACT Erika [facility] 1538) [address] POCT-GLUCOSE [id number] 10:15:00 Test Item Value Reference Range Interpretation Comments POC-GLUCOSE METER 245 mg/dL 70-110 H TESTED AT [place] [address] [facility] (test code = JOHANNY James [facility] 1538) [address] POCT-GLUCOSE [id number] 09:02:00 Test Item Value Reference Range Interpretation Comments POC-GLUCOSE METER 205 mg/dL 70-110 H TESTED AT [place] [address] ([facility]) (test code = [facility] 1538) [address]173 POCT-GLUCOSE [id number] 07:54:00 Test Item Value Reference Range Interpretation Comments POC-GLUCOSE METER 206 mg/dL 70-110 H TESTED AT [place] [address] ([facility]) (test code = [facility] Erika [facility] 1538) [address] POCT-GLUCOSE [id number] 07:54:00 Test Item Value Reference Range Interpretation Comments POC-GLUCOSE METER 217 mg/dL 70-110 H TESTED AT [place] [address] ([facility]) (test code = [facility] 1538) [address] KETONE, [id number] 07:25:00 Test Item Value Reference Range Interpretation Comments KETONES, BLOOD (BEAKER) (test code 4.3 mmol/L <0.4 H = 1103) [id number] 07:00:00 Test Item Value Reference Range Interpretation Comments PHOSPHORUS (BEAKER) (test code = 2.5 mg/dL 2.3-4.7 604) [id number] 07:00:00 Test Item Value Reference Range Interpretation Comments MAGNESIUM (BEAKER) (test code = 2.0 mg/dL 1.6-2.6 627) BASIC METABOLIC [id number] 07:00:00 Test Item Value Reference Range Interpretation Comments SODIUM (BEAKER) 148 meq/L 136-145 H (test code = 381) POTASSIUM (BEAKER) 3.5 meq/L 3.5-5.1 (test code = 379) CHLORIDE (BEAKER) 119 meq/L 98-107 H (test code = 382) CO2 (BEAKER) (test 18 meq/L 22-29 L code = 355) BLOOD UREA NITROGEN 7 mg/dL 7-21 ([facility]) (test code = 354) CREATININE ([facility]) 0.79 mg/dL 0.57-1.25 (test code = 358) GLUCOSE RANDOM 208 mg/dL 70-105 H ([facility]) (test code = 652) CALCIUM ([facility]) 8.9 mg/dL 8.4-10.2 (test code = 697) EGFR ([facility]) (test 89 mL/min/1.73 ESTIMA OLGA GFR IS code = 1092) sq m NOT ACCURATE CREATININE CLEARANCE IN PREDICTING GLOMERULAR FILTRATION RATE . ESTIMATED GFR I S NOT APPLICABLE FOR DIALYSIS PATIEN TS. POCT-GLUCOSE [id number] 06:13:00 Test Item Value Reference Range Interpretation Comments POC-GLUCOSE METER 223 mg/dL 70-110 H TESTED AT [place] [address] ([facility]) (test code = [facility] 1538) 37243 POCT-GLUCOSE [id number] 05:20:00 Test Item Value Reference Range Interpretation Comments POC-GLUCOSE METER 224 mg/dL 70-110 H TESTED AT [place] [address] ([facility]) (test code = [facility] 1538) [address] POCT-GLUCOSE [id number] 04:08:00 Test Item Value Reference Range Interpretation Comments POC-GLUCOSE METER 165 mg/dL 70-110 H TESTED AT [place] [address] ([facility]) (test code = [facility] 1538) 94140 POCT-GLUCOSE [id number] 03:25:00 Test Item Value Reference Range Interpretation Comments POC-GLUCOSE METER 130 mg/dL 70-110 H TESTED AT [place] [address] ([facility]) (test code = [facility] 1538) [address] [id number] 02:50:00 Test Item Value Reference Range Interpretation Comments PROCALCITONIN ([facility]) (test code 2.96 ng/mL <0.05 H = 3036) SEPSIS RISK (ng/mL)Low: 0.05-0.50Intermediate: 0.51-2.00High: >=2.01KETONE, [id number] 02:15:00 Test Item Value Reference Range Interpretation Comments KETONES, BLOOD ([facility]) (test code 3.1 mmol/L <0.4 H = 1103) POCT-GLUCOSE [id number] 02:13:00 Test Item Value Reference Range Interpretation Comments POC-GLUCOSE METER 153 mg/dL 70-[address] [facility] 6720 (BEAKER) (test code = J[place]ANNY [place] 1538) [address] [id number] 02:01:00 Test Item Value Reference Range Interpretation Comments PHOSPHORUS (BEAKER) (test code = 2.4 mg/dL 2.3-4.7 604) [id number] 02:01:00 Test Item Value Reference Range Interpretation Comments MAGNESIUM (BEAKER) (test code = 2.1 mg/dL 1.6-2.6 627) BASIC METABOLIC [id number] 02:01:00 Test Item Value Reference Range Interpretation [...] S NOT APPLICABLE FOR DIALYSIS PATIEN TS. [id number] 02:01:00 Test Item Value Reference Range Interpretation Comments AMYLASE (BEAKER) (test code = 349) 129 U/L 25-125 H [id number] 02:01:00 Test Item Value Reference Range Interpretation [...] 0-0 (BEAKER) (test code = 413) POCT-GLUCOSE [id number] 01:05:00 Test Item Value Reference Range Interpretation Comments POC-GLUCOSE METER 171 mg/dL 70-110 H TESTED AT [place] [address] ([facility]) ([facility] 1538) [address] POCT-GLUCOSE [id number] 00:32:00 Test Item Value Reference Range Interpretation Comments POC-GLUCOSE METER 171 mg/dL 70-110 H TESTED AT [place] [address] ([facility]) (test code = [facility] Erika [facility] 1538) [address]377 POCT-GLUCOSE [id number] 23:15:00 Test Item Value Reference Range Interpretation Comments POC-GLUCOSE METER 177 mg/dL 70-110 H TESTED AT [place] [address] ([facility]) (test code = [facility] Erika [facility] 1538) [address]21 POCT-GLUCOSE [id number] 22:16:00 Test Item Value Reference Range Interpretation Comments POC-GLUCOSE METER 170 mg/dL 70-110 H TESTED AT [facility] 6720 (BEAKER) (test code = JOHANNY James [place] 1538) [address] POCT-GLUCOSE [id number] 22:16:00 Test Item Value Reference Range Interpretation Comments POC-GLUCOSE METER 191 mg/dL 70-[address] [facility] 6720 (BEAKER) (test code = JOHANNY James [place] 1538) [address] KETONE, [id number] 20:49:00 Test Item Value Reference Range Interpretation Comments KETONES, BLOOD (BEAKER) (test code 3.2 mmol/L <0.4 H = 1103) [id number] 20:46:00 Test Item Value Reference Range Interpretation Comments PHOSPHORUS (BEAKER) (test code = 2.2 mg/dL 2.3-4.7 L 604) [id number] 20:46:00 Test Item Value Reference Range Interpretation Comments MAGNESIUM (BEAKER) (test code = 2.2 mg/dL 1.6-2.6 627) BASIC METABOLIC [id number] 20:46:00 Test Item Value Reference Range Interpretation [...] APPLICABLE FOR DIALYSIS PATIEN TS. BLOOD GAS, [id number] 20:29:00 Test Item Value Reference Range Interpretation [...] (test code = 1819) 21.0 % POCT-GLUCOSE [id number] 20:09:00 Test Item Value Reference Range Interpretation Comments POC-GLUCOSE METER 219 mg/dL 70-[address] 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 Signed: Arpit Smith MDReport Verified Date/Time: 08/19/2018 18:36:40 Reading Location: [facility] Radiology Reading RoomAddendum EndsFINAL REPORT [...] Verified Date/Time: 08/19/2018 13:33:21 Reading Locati on: [facility] Radiology Reading Room RAD, MANDIBLE, LESS THAN 4 [id number] 18:35:00Reason for exam:->dysarthria, fallFINAL REPORT Mandible 6 [...] Smith Verified Date/Time: 08/19/2018 18:35:55 Reading Location: [facility] Radiology Reading Room POCT-GLUCOSE [id number] 18:22:00 Test Item Value Reference Range Interpretation Comments POC-GLUCOSE METER 222 mg/dL 70-110 H TESTED AT [place] [address] ([facility]) (test code = JOHANNY [place] 1538) [address] POCT-GLUCOSE [id number] 16:58:00 Test Item Value Reference Range Interpretation Comments POC-GLUCOSE METER 277 mg/dL 70-110 H TESTED AT [facility] 6720 (BEAKER) (test code = JOHANNY [place] 1538) [address] [id number] 16:12:00 Test Item Value Reference Range Interpretation Comments PHOSPHORUS (BEAKER) (test code = 2.9 mg/dL 2.3-4.7 604) [id number] 16:12:00 Test Item Value Reference Range Interpretation Comments MAGNESIUM (BEAKER) (test code = 1.7 mg/dL 1.6-2.6 627) BASIC METABOLIC [id number] 16:12:00 Test Item Value Reference Range Interpretation [...] NOT APPLICABLE FOR DIALYSIS PATIEN TS. KETONE, [id number] 15:46:00 Test Item Value Reference Range Interpretation Comments KETONES, BLOOD (BEAKER) (test code 6.0 mmol/L <0.4 H = 1103) POCT-GLUCOSE [id number] 15:18:00 Test Item Value Reference Range Interpretation Comments POC-GLUCOSE METER 322 mg/dL 70-110 H Will Repea t Test/TESTED (BEAKER) (test code = AT [facility] 67[address] [place] 1538) [place] [address] POCT-GLUCOSE [id number] 14:27:00 Test Item Value Reference Range Interpretation Comments POC-GLUCOSE METER 232 mg/dL 70-[address] [facility] 6720 [facility] (test code = JOHANNY James [place] 1538) [address] POCT-GLUCOSE [id number] 13:05:00 Test Item Value Reference Range Interpretation Comments POC-GLUCOSE METER 240 mg/dL 70-[address] [facility] 6720 (MARTÍN) (test code = JOHANNY James [place] 1538) [address] POCT-GLUCOSE [id number] 12:16:00 Test Item Value Reference Range Interpretation Comments POC-GLUCOSE METER 201 mg/dL 70-[address] [facility] 6720 [facility] (test code = JOHANNY James [facility] 1538) [address] CT, [id number] 11:46:00FINAL REPORT INDICATION:23-year-old female with abdominal pain. [...] No evidence of pancreatitis. Signed: Mally Yoo [facility] Verified Date/Time: 08/19/2018 11:46:24 Reading Location: [facility] Diagnostic Imaging Reading Room - [place] [address] BASIC METABOLIC PANEL 2018-08-19 11:17:00 Test Item [...] S NOT APPLICABLE FOR DIALYSIS PATIEN TS. [id number] 11:12:00 Test Item Value Reference Range Interpretation Comments PHOSPHORUS (BEAKER) (test code = 3.8 mg/dL 2.3-4.7 604) POCT-GLUCOSE [id number] 10:49:00 Test Item Value Reference Range Interpretation Comments POC-GLUCOSE METER 172 mg/dL 70-[address] [facility] 6720 (BEAKER) (test code = [facility] Erika [facility] 1538) [address] KETONE, [id number] 10:37:00 Test Item Value Reference Range Interpretation Comments KETONES, BLOOD (BEAKER) (test code 4.2 mmol/L <0.4 H = 1103) HEMOGLOBIN [id number] 10:29:00 Test Item Value Reference Range Interpretation Comments HEMOGLOBIN A1C (BEAKER) (test code = 15.3 % 4.3-6.1 H 368) BLOOD GAS, [id number] 10:23:00 Test Item Value Reference Range Interpretation [...] (test code = 1819) 21.0 % POCT-GLUCOSE [id number] 10:02:00 Test Item Value Reference Range Interpretation Comments POC-GLUCOSE METER 145 mg/dL 70-[address] [facility] 6720 (BEAKER) (test code = [facility] [place] 1538) [address] POCT-GLUCOSE [id number] 09:04:00 Test Item Value Reference Range Interpretation Comments POC-GLUCOSE METER 168 mg/dL 70-[address] [facility] 6720 (BEAKER) (test code = [facility] [place] 1538) [address] POCT-GLUCOSE [id number] 07:47:00 Test Item Value Reference Range Interpretation Comments POC-GLUCOSE METER 187 mg/dL 70-[address] [facility] 6720 (BEAKER) (test code = [facility] [place] 1538) [address] BLOOD GAS, [id number] 07:14:00 Test Item Value Reference Range Interpretation [...] code = 1819) 21.0 % BASIC METABOLIC [id number] 07:13:00 Test Item Value Reference Range Interpretation Comments SODIUM (BEAKER) 157 meq/L 136-145 H (test code = 381) POTASSIUM (BEAKER) 3.2 meq/L 3.5-5.1 L (test code = 379) CHLORIDE (BEAKER) 126 meq/L 98-107 H (test code = 382) CO2 (BEAKER) (test 17 meq/L 22-29 L code = 355) BLOOD UREA NITROGEN 11 mg/dL 7-21 ([facility]) (test code = 354) CREATININE ([facility]) 1.12 mg/dL 0.57-1.25 (test code = 358) GLUCOSE RANDOM 180 mg/dL 70-105 H ([facility]) (test code = 652) CALCIUM ([facility]) 9.1 mg/dL 8.4-10.2 (test code = 697) EGFR ([facility]) (test 60 mL/min/1.73 ESTIMA OLGA GFR IS code = 1092) sq m NOT ACCURATE CREATININE CLEARANCE IN PREDICTING GLOMERULAR FILTRATION RATE . ESTIMATED GFR I S NOT APPLICABLE FOR DIALYSIS PATIEN TS. [id number] 07:11:00 Test Item Value Reference Range Interpretation Comments MAGNESIUM ([facility]) (test code = 2.0 mg/dL 1.6-2.6 627) POCT-GLUCOSE [id number] 07:09:00 Test Item Value Reference Range Interpretation Comments POC-GLUCOSE METER 183 mg/dL 70-110 H TESTED AT [place] [address] ([facility]) (test code = [facility] 1538) [address] POCT-GLUCOSE [id number] 06:19:00 Test Item Value Reference Range Interpretation Comments POC-GLUCOSE METER 185 mg/dL 70-110 H TESTED AT [place] [address] ([facility]) (test code = [facility] 1538) [address] POCT-GLUCOSE [id number] 05:05:00 Test Item Value Reference Range Interpretation Comments POC-GLUCOSE METER 223 mg/dL 70-110 H TESTED AT [place] [address] ([facility]) (test code = [facility] 1538) [address] POCT-GLUCOSE [id number] 04:17:00 Test Item Value Reference Range Interpretation Comments POC-GLUCOSE METER 235 mg/dL 70-110 H TESTED AT [place] [address] ([facility]) (test code = [facility] 1538) [address] [id number] 04:07:00 Test Item Value Reference Range Interpretation Comments PROCALCITONIN ([facility]) (test code 6.19 ng/mL <0.05 H = 3036) SEPSIS RISK (ng/mL)Low: 0.05-0.50Intermediate: 0.51-2.00High: >=2.01 [id number] 04:03:00 Test Item Value Reference Range Interpretation Comments PHOSPHORUS (BEAKER) (test code = 1.4 mg/dL 2.3-4.7 LL 604) BASIC METABOLIC [id number] 04:00:00 Test Item Value Reference Range Interpretation [...] APPLICABLE FOR DIALYSIS PATIEN TS. BASIC METABOLIC [id number] 04:00:00 Test Item Value Reference Range Interpretation [...] APPLICABLE FOR DIALYSIS PATIEN TS. BLOOD GAS, [id number] 03:52:00 Test Item Value Reference Range Interpretation [...] 70 pg/mL 0-100 (test code = 700) [id number] 03:43:00 Test Item Value Reference Range Interpretation Comments MAGNESIUM (BEAKER) (test code = 2.1 mg/dL 1.6-2.6 627) [id number] 03:43:00 Test Item Value Reference Range Interpretation Comments AMYLASE (BEAKER) (test code = 349) 566 U/L 25-125 H [id number] 03:43:00 Test Item Value Reference Range Interpretation Comments LIPASE (BEAKER) (test code = 749) 124 U/L 8-78 H C-REACTIVE [id number] 03:43:00 Test Item Value Reference Range Interpretation Comments C-REACTIVE PROTEIN (BEAKER) (test 5.56 mg/dL 0.00-0.50 H code = 676) KETONE, [id number] 03:23:00 Test Item Value Reference Range Interpretation [...] 0-0 (BEAKER) (test code = 413) POCT-GLUCOSE [id number] 03:17:00 Test Item Value Reference Range Interpretation Comments POC-GLUCOSE METER 251 mg/dL 70-110 H TESTED AT [place] [address] ([facility]) (test code = J[place]ANNY [place] 1538) [address] OSMOLALITY, [id number] 02:24:00 Test Item Value Reference Range Interpretation Comments OSMOLALITY URINE ([facility]) (test 599 mOsm/kg 40-1400 code = 614) POCT-GLUCOSE [id number] 02:16:00 Test Item Value Reference Range Interpretation Comments POC-GLUCOSE METER 288 mg/dL 70-110 H TESTED AT [place] [address] ([facility]) (test code = J[place]ANNY [place] 1538) [address] KETONE, [id number] 01:49:00 Test Item Value Reference Range Interpretation Comments KETONES, BLOOD (BEAKER) (test code 6.1 mmol/L <0.4 H = 1103) POCT-GLUCOSE [id number] 01:13:00 Test Item Value Reference Range Interpretation Comments POC-GLUCOSE METER 254 mg/dL 70-110 H TESTED AT [place] [id number] (BEAKER) (test code = [facility] [place] 1538) [address] BLOOD GAS, [id number] 01:10:00 Test Item Value Reference Range Interpretation [...] (test code = 1819) 21.0 % POCT-GLUCOSE [id number] 00:05:00 Test Item Value Reference Range Interpretation Comments POC-GLUCOSE METER 288 mg/dL 70-110 H TESTED AT [place] [address] (BEAKER) (test code = [facility] [place] 1538) [address] BASIC METABOLIC [id number] 23:16:00 Test Item Value Reference Range Interpretation [...] NOT APPLICABLE FOR DIALYSIS PATIEN TS. OSMOLALITY, [id number] 23:03:00 Test Item Value Reference Range Interpretation Comments OSMOLALITY, SERUM (BEAKER) (test 342 mOsm/kg 275-295 H code = 615) [id number] 23:02:00 Test Item Value Reference Range Interpretation Comments PHOSPHORUS (BEAKER) (test code = 1.1 mg/dL 2.3-4.7 LL 604) [id number] 23:00:00 Test Item Value Reference Range Interpretation Comments MAGNESIUM (BEAKER) (test code = 2.1 mg/dL 1.6-2.6 627) CALCIUM, [id number] 22:47:00 Test Item Value Reference Range Interpretation [...] (BEAKER) (test code = 413) BLOOD GAS, [id number] 22:46:00 Test Item Value Reference Range Interpretation [...] (test code = 1819) 21.0 % KETONE, [id number] 22:46:00 Test Item Value Reference Range Interpretation Comments KETONES, BLOOD (BEAKER) (test code 5.6 mmol/L <0.4 H = 1103) RAD, CHEST, 1 VIEW, NON [id number] 22:44:00Reason for exam:->central line Should this be [...] Unremarkable. Additional findings: None. Signed:JR York Robert [facility] Verified Date/Time: 08/18/2018 22:44:52 Reading Location: [address] Reading Room POCT-GLUCOSE [id number] 22:34:00 Test Item Value Reference Range Interpretation Comments POC-GLUCOSE METER 259 mg/dL 70-[address] [facility] 6720 (BEAKER) (test code = J[place]ANNY [place] 1538) [address] CHLORIDE, RANDOM [id number] 22:28:00 Test Item Value Reference Range Interpretation Comments CHLORIDE URINE (BEAKER) (test code = 88 meq/L 682) Reference Range: No NormalsCREATININE, RANDOM [id number] 22:28:00 Test Item Value Reference Range Interpretation Comments CREATININE URINE (BEAKER) (test 12.5 mg/dL code = 375) Reference Range: No NormalsSODIUM, RANDOM [id number] 22:28:00 Test Item Value Reference Range Interpretation Comments SODIUM URINE (BEAKER) (test code = 143 meq/L 243) Reference Range: No NormalsUREA NITROGEN, RANDOM [id number] 22:28:00 Test Item Value Reference Range Interpretation Comments UREA NITROGEN URINE (BEAKER) (test 154 mg/dL code = 538) Reference Range: No NormalsOSMOLALITY, [id number] 21:53:00 Test Item Value Reference Range Interpretation Comments OSMOLALITY URINE (BEAKER) (test 546 mOsm/kg 40-1400 code = 614) BASIC METABOLIC [id number] 21:07:00 Test Item Value Reference Range Interpretation [...] S NOT APPLICABLE FOR DIALYSIS PATIEN TS. [id number] 21:07:00 Test Item Value Reference Range Interpretation Comments PHOSPHORUS (BEAKER) < mg/dL 2.3-4.7 LL Specimen slightly (test code = 604) hemolyzed POCT-GLUCOSE [id number] 21:06:00 Test Item Value Reference Range Interpretation Comments POC-GLUCOSE METER 381 mg/dL 70-110 H TESTED AT [place] [address] ([employer]) (test code = [facility] 1538) [address] POCT-GLUCOSE [id number] 21:06:00 Test Item Value Reference Range Interpretation Comments POC-GLUCOSE METER 437 mg/dL 70-110 HH TESTED AT [place] [address] ([employer]) (test code = [facility] 1538) [address] [id number] 21:05:00 Test Item Value Reference Range Interpretation Comments LIPASE (BEAKER) (test code = 749) 138 U/L 8-78 H [id number] 21:05:00 Test Item Value Reference Range Interpretation Comments AMYLASE (BEAKER) (test code = 349) 669 U/L 25-125 H [id number] 21:04:00 Test Item Value Reference Range Interpretation [...] is 2.5-3.5 for patients with mechanical heart valves.[id number] 21:04:00 Test Item Value Reference Range Interpretation Comments MAGNESIUM (BEAKER) 2.2 mg/dL 1.6-2.6 Specimen slightly (test code = 627) hemolyzed BLOOD GAS, [id number] 21:00:00 Test Item Value Reference Range Interpretation [...] (test code = 1819) 21.0 % HEMOGLOBIN [id number] 21:00:00 Test Item Value Reference Range Interpretation Comments HEMOGLOBIN A1C (BEAKER) (test code = 15.7 % 4.3-6.1 H 368) CT BRAIN WITHOUT IV CONTRAST - [id number] 20:04:00Reason for exam:- >r/o bleedFINAL REPORT CT [...] 08/18/2018 20:04:50 Reading Lo cation: [facility]O [facility] [place] [facility] Reading Room POCT-GLUCOSE [id number] 19:21:00 Test Item Value Reference Range Interpretation Comments POC-GLUCOSE METER 425 mg/dL 70-[address] [facility] 6720 (BEAKER) (test code = J[place]ANNY [place] 1538) [address] [id number] 18:52:00 Test Item Value Reference Range Interpretation Comments PHOSPHORUS (BEAKER) (test code = 604) < mg/dL 2.3-4.7 LL If last glucose was less than 500, may do bedside glucose instead of serum glucose.RAPID DRUG SCREEN, [id number] 18:52:00 Test Item Value Reference Range Interpretation [...] situations. Chain of custody not maintained. Some wkzv-mhb-ghvaays medications, as well as adulterants, may cause inaccurate results. Clinical correlation should be applied. A more comprehensive drug screen or confirmation of a detected drug may be performed upon request.BASIC METABOLIC [id number] 18:51:00 Test Item Value Reference Range Interpretation [...] may do bedside glucose instead of serum glucose.[id number] 18:48:00 Test Item Value Reference Range Interpretation Comments MAGNESIUM (BEAKER) (test code = 2.1 mg/dL 1.6-2.6 627) If last glucose was less than 500, may do bedside glucose instead of serum glucose.KETONE, [id number] 18:45:00 Test Item Value Reference Range Interpretation Comments KETONES, BLOOD (BEAKER) (test code 5.2 mmol/L <0.4 H = 1103) [id number] 18:43:00 Test Item Value Reference Range Interpretation [...] /LPF = 514) SOURCE(BEAKER) (test code = 6291) SCREEN, [id number] 18:35:00 Test Item Value Reference Range Interpretation Comments TEST URINE (BEAKER) (test Negative code = 583) BLOOD GAS, [id number] 18:32:00 Test Item Value Reference Range Interpretation [...] (BEAKER) (test code = 1819) 21.0 % [id number] 18:16:00 Test Item Value Reference Range Interpretation Comments FIBRINOGEN LEVEL 331 mg/dl 225-434 Sample clot olga, (BEAKER) (test code = notifi ed RN badge 658) #[id number] for recollect. [id number] 18:16:00 Test Item Value Reference Range Interpretation Comments D-DIMER QUANTITATIVE 0.64 MG/L FEU <0.50 H Sample is clotted, (BEAKER) (test code = notifi ed RN badge 671) #[id number] for recollect.This is a corrected result. Previou [...] of thrombosis is within 95-100% range.POCT- GLUCOSE [id number] 18:05:00 Test Item Value Reference Range Interpretation Comments POC-GLUCOSE METER > mg/dL 70-110 HH OUTSIDE FL ASURING (BEAKER) (test code RANGETES OLGA AT [facility] 6720 = 1538) [facility] [address] [id number] 18:01:00 Test Item Value Reference Range Interpretation Comments PROCALCITONIN (BEAKER) (test code 3.19 ng/mL <0.05 H = 3036) SEPSIS RISK (ng/mL)Low: 0.05-0.50Intermediate: 0.51-2.00High: >=2.01CREATINE KINASE (CK), TOTAL AND [id number] 17:50:00 Test Item Value Reference Range Interpretation Comments CREATINE KINASE TOTAL (BEAKER) 54 U/L 29-200 (test code = 380) CREATINE KINASE-MB (BEAKER) (test 1.6 ng/mL 0.0-6.6 code = 750) CREATINE KINASE-MB INDEX (BEAKER) 3.0 % (test code = 395) CK-MB Reference Range:<6.7 Normal6.7-10.0 Borderline>10.0 AbnormalTROPONIN [id number] 17:50:00 Test Item Value Reference Range Interpretation [...] 0-100 (test code = 700) COMPREHENSIVE METABOLIC [id number] 17:48:00 Test Item Value Reference Range Interpretation [...] S NOT APPLICABLE FOR DIALYSIS PATIEN TS. [id number] 17:47:00 Test Item Value Reference Range Interpretation Comments LIPASE (BEAKER) (test code = 749) 329 U/L 8-78 H [id number] 17:47:00 Test Item Value Reference Range Interpretation Comments AMYLASE (BEAKER) (test code = 349) 563 U/L 25-125 H LACTATE DEHYDROGENASE (LDH)2018-08-18 17:47:00 Test Item Value Reference Range Interpretation Comments LACTATE DEHYDROGENASE (BEAKER) (test 255 U/L 125-220 H code = 635) C-REACTIVE [id number] 17:47:00 Test Item Value Reference Range Interpretation Comments C-REACTIVE PROTEIN (BEAKER) (test 1.35 mg/dL 0.00-0.50 H code = 676) LACTIC ACID, VENOUS, WHOLE [id number] 17:41:00 Test Item Value Reference Range Interpretation Comments LACTATE BLOOD VENOUS 2.0 mmol/L 0.5-2.2 Specime n markedly (2) (BEAKER) (test hemolyzed code = 2872) Effective 03/06/2016: Units/Reference Range ChangeNew: 0.5-2.2 mmol/L Previous: 5- 20 mg/dLPOCT-LACTIC ACID, [id number] 17:13:00 Test Item Value Reference Range Interpretation Comments POC-LACTIC ACID, 1.9 mmol/L 0.4-1.3 H TESTED AT [facility] 6720 ARTERIAL (BEAKER) [facility] (test code = 2804) [address] POCT-BLOOD GASES, [id number] 17:13:00 Test Item Value Reference Range Interpretation Comments TEMP, CELSIUS-POC 37.0 (BEAKER) (test code = 1834) FIO2-POC (BEAKER) TESTED AT [place] [address] (test code = 1835) [facility] [address] PH, ARTERIAL-POC 7.069 7.350-7.450 LL (BEAKER) (test [...] L ARTERIAL-POC (BEAKER) (test code = 1841) [id number] 17:13:00 Test Item Value Reference Range Interpretation Comments POC-SODIUM (BEAKER) 150 meq/L 135-148 H TESTED A T [place] [address] (test code = 1542) [facility] [address] [id number]-[id number] 17:13:00 Test Item Value Reference Range Interpretation Comments POC-POTASSIUM 2.4 meq/L 3.6-5.5 LL TESTED AT [place] [address] ([facility]) (test code [facility] [address] = 1540) [id number] 17:13:00 Test Item Value Reference Range Interpretation Comments POC-GLUCOSE (BEAKER) 685 mg/dL 70-110 HH TESTED AT [place] [address] (test code = 1855) [facility] [address] POCT-CALCIUM [id number] 17:13:00 Test Item Value Reference Range Interpretation Comments POC-CALCIUM IONIZED 1.24 mmol/L 1.12-1.27 TESTED [place] [address] ([facility] (test code = [place] 15[address]) [address] [id number] 17:13:00 Test Item Value Reference Range Interpretation Comments POC-HEMATOCRIT 40 % 36-45 TESTED AT [place] [address] ([facility]) (test code = [place] [address]57) [id number] 17:13:00 Test Item Value Reference Range Interpretation Comments POC-HEMOGLOBIN 13.6 g/dL 12.0-15.[address] [facility] 6720 ([facility] (test code [place] = 1856) [id number] AT [facility] [address] [place] [address] POCT-GLUCOSE [id number] 17:07:00 Test Item Value Reference Range Interpretation Comments POC-GLUCOSE METER > mg/dL 70-110 HH OUTSIDE ME ASURING ([facility]) (test code RANGETES OLGA AT [place] [address] = 1538) [facility] [address] Notes Date/Time Note Provider Source 2023-05-29 15:36:01 2579-50-33V91:36:01Formatting of Katherin saenz [place] this note might be different from the original.Attempted to call patient but no answer so LVM to schedule with her Endo dr to discuss her insulin. Also sent her a message via [employer]. Katherin Rizo MA 05/29/2023 3:37 PM 10371-2Uectniqbq encounter XzdsQR2654-26-41T56:37:12Telephone encounter NoteTXT1.2.840.899962.1.13.104.2.7 .2.563556|[id number] for patient [id number] K CantuU[address] AyvcJapqljplaBjsjynzchQWSY73674510 82LEOKBSRZYBZPDILGYLLXMB2489-58-58 T15:37:121.2.840.050583.1.72.3.15| 1.2.840.835699.1.13.104.2.7.2.7278 [id number] 2023-05-29 10:02:49 4230-53-36Y06:02:49Formatting of [place] this note might be different from the original.She will need to contact endo for any dose adjustments to her sliding scale insulin. She ran out of medicine thus sent in regimen endo had her on to prevent being out of her insulin since she is type 1 diabetic. 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 22872-8Snczuxqrw encounter BxvwZS2422-03-97Q77:03:40Telephone encounter NoteTXT1.2.840.191371.1.13.104.2.7 .2.219313|[id number] for patient [address] SaceBygzeiynnCcfluregsXPXP24827919 34UGZSGLARKUJNUUGPMEETXR4794-15-22 T10:03:401.2.840.651596.1.72.3.15| 1.2.840.607495.1.13.104.2.7.2.7278 [id number] 2023-05-26 16:48:56 2325-32-30W99:48:56Formatting of Alexandria tamayo RN [place] this note might be different from the original.Please review and advise. 75993-0Gvlyjgplv encounter AwwdGJ5921-84-29M56:49:10Telephone encounter NoteTXT1.2.840.386996.1.13.104.2.7 .2.639624|[id number] for patient xrgc954381324Cjxaxg [place] RN[address] UndpZpebkyjapEeldvtmdjWLUX83950414 74HDQXXHIJVQXJVWYOGVYLXM4958-41-96 T16:49:101.2.840.680222.1.72.3.15| 1.2.840.307817.1.13.104.2.7.2.7278 79_[id number] 2023-05-26 16:42:35 8471-09-78J92:42:35Formatting of Prabha K Mar [facility] this note might be different from the original.[facility] is needing the max dose on the insulin aspart U-100 (NOVOLOG FLEXPEN U-100 INSULIN) 100 unit/mL (3 mL) injection 03647-8Mgdzakpai encounter CoghQV0930-09-33O42:43:36Telephone encounter NoteTXT1.2.840.521257.1.13.104.2.7 .2.870507|[id number] for patient dpwa071994745Jwykk K [address] WnqbUzezcrlfdKhnxuhqtwXCLN62711707 54HCZFYFUVIKWSYADCDQKYGR3488-95-06 T16:43:361.2.840.460270.1.72.3.15| 1.2.840.492272.1.13.104.2.7.2.7278 [id number] 2023-05-23 14:00:00 6922-49-43A72:00:00Formatting of [place] this note is different from the original.Images from the original note were not included.Venipuncture collection performed by clean technique on the right anticubitus. Total of 1 attempts were made. Slight pressure and a bandage/dressing were applied to the site(s). The patient experienced no complications. The following specimens were processed according to instructions and sent to [facility] laboratories per lab order on 05/23/2023: LT BLUE SST 1 RED LAV 2 PPT DK GREEN (LiHep) DK GREEN (SodH) PABLO DK BLUE (K2) DK BLUE (S) ACD Blood Culture NIPT/NTD Patient has been identified by and name and was provided with cup, antiseptic towelette, and clean catch instructions. 1 urine specimen(s) sent. Unpreserved 1 Urine Culture Aptima tube Other urine 49091-5Hzpit KwouHT6278-18-86M04:29:18Nurse NoteTXT1.2.840.987609.1.13.104.2.7 .2.556056|[id number] for patient [address] 05LURQKWDSOCVLKQQKUNWYYT4251-62-34 T14:29:181.2.840.722878.1.72.3.15| 1.2.840.416922.1.13.104.2.7.2.7278 [id number] 2023-05-23 08:51:18 6031-27-93K58:51:18Formatting of Rani payton [place] this note might be different from the original.Attempt to contact , no answer left a voicemail to call back to schedule an appt with [facility]. 16816-9Ubaezlaoc encounter PtkvZX4222-56-63F64:52:45Telephone encounter NoteTXT1.2.840.727053.1.13.104.2.7 .2.132910|[id number] for patient ujqp840892307Hphmarlzq [address]va[address]TXTX[address] 15WUMSLUUKVWTNRJYUTOEOSJ1614-71-95 T08:52:451.2.840.508512.1.72.3.15| 1.2.840.496457.1.13.104.2.7.2.7278 79_[id number] 2023-05-22 14:04:40 4925-26-75S02:04:40Formatting of Destini Shields on [facility] this note might be different from the original.Unable to get patient in sarah due to limited schedule with endo but will route to PSS to see if availability with one of our PCP's in the next few days. 53032-4Kzrtyaenf encounter BkloUB3466-66-94J05:08:40Telephone encounter NoteTXT1.2.840.657024.1.13.104.2.7 .2.794808|[id number] for patient uqxp590298188Luxc D Jet[place] [id number] 74OCVVZSFPJDLPXSGQIXNDRG3931-75-72 T14:08:401.2.840.879036.1.72.3.15| 1.2.840.680541.1.13.104.2.7.2.7278 79_[id number] 2023-05-22 10:36:14 3774-55-25D40:36:14Formatting of Mily sheridan [place] this note might be different from the original.Pt says she was just dc from hosp they want her to have fu with endo [place], she also need refill on TRESIBA also thinks she need new strips says she keeps getting error when she tries to use them think it the strips not meter 72575-7Kepitctqo encounter MfujPZ3380-30-62B71:38:23Telephone encounter NoteTXT1.2.840.868962.1.13.104.2.7 .2.833559|[id number] for patient eurf339436419Qpykc [address] 60DAYRLUQVCLUMVNCXIILNNE9120-96-53 T10:38:231.2.840.930533.1.72.3.15| 1.2.840.299473.1.13.104.2.7.2.7278 79_[id number] 2020-12-03 07:27:00 IIwilcodkvk000082824029-47-16M98:2 [facility] 7:00 [facility] ([facility])OB Postpart Progr NoteREPORT#:[id number] REPORT STATUS: SignedDATE:12/03/20 TIME: 726 PATIENT: TASHI MOSQUERA UNIT #: [id number]#: [id number] ROOM/BED: 2030ADOB: [birth year] AGE: 25 SEX: F ATTEND: Natalie Corrales MDADM AUTHOR: Yvette Ni MD * ALL edits or amendments must be made on the electronic/computer document * Subjective SubjectiveAdmission EGA: Weeks: 36 Days: 3Status/day: post , post operative, day # 3Patient reports: Patient reports: Yes: normal lochia, pain management effective, tolerating po well, voiding well, voiding without pain, tolerating ambulation, bowel movement. No: complaints. Objective GeneralVS:Vital Signs Date Temp Pulse Resp B/P B/P Mean Pulse Ox FiO2 12/02-12/03 97.8-98.8 89-92 18-20 103-127/70-83 Last Documented: Result Date Time B/P 112/77 12/03 0338 Temp 98.8 12/03 0338 Pulse 90 12/03 0338 Resp 20 12/03 0338 Pulse Ox 97 12/01 0748 B/P Mean 90.0 11/30 1215 PATIENT WEIGHT: Weight (lb): 205Weight (oz): Weight (kg): 92.986 Physical ExamLungs: unlabored breathingAbdomen: soft, no abnormal tendernessIncision site: well approximated edges, cherry intact, dressing clean dry, dry, no drainage, no inflammationUterus: firm, tender, non-tenderFundus: at the umbilicusLochia: normalLower extremities: Edema: none Calf tenderness: negative ResultFindings/data:Laboratory Tests: 12/03 12/02 12/02 12/02 0639 2111 1503 0943 Chemistry POC Glucose (65 - 110 mg/dL) 80 103 206 H 200 H Diagnosis, Assessment Plan Diagnosis, Assessment PlanAssessment: nml progress, diabetes in suboptimal control, imporved FBS on dedcreased dose of NPH at bedtime ( no nocturnal hypoglycemia), yesterdaypatient did not receive NPH in am, BG's unacceptably high. Will establish ane richie of insulin NPH 20 units am/pm, humalog 10 units ac mealsPlan: routine care at 0729 RPT #:[id number] OF REPORT PRProgress Hvol5162-28-57V27:27:00F.NLJV02542 131-0057AVAvailable for patient gkmkTTCHFNKDRMPMGP3304-09-69F57:29 :29 2020-12-02 16:47:00 YHzrhcdseey189208607978-83-75N98:4 [facility] 7:00 [facility] ([facility])OB Postpart Progr NoteREPORT#:[id number] REPORT STATUS: SignedDATE:12/02/20 TIME: 1647 PATIENT: TASHI MOSQUERA UNIT #: [id number]#: [id number] [address] [birth year] AGE: 25 SEX: F ATTEND: Natalie Corrales MDADM AUTHOR: Yvette Ni MD * ALL edits or amendments must be made on the electronic/computer document * Subjective SubjectiveAdmission EGA: Weeks: 36 Days: 3Status/day: post , post operative, day # 2Patient reports: Patient reports: Yes: normal lochia, pain management effective, tolerating po well, voiding well, voiding without pain, tolerating ambulation, flatus. No: complaints. Objective GeneralVS:Vital Signs Date Temp Pulse Resp B/P B/P Mean Pulse Ox FiO2 12/01-12/02 97.7-98.5 83-89 18-20 102-111/70-76 Last Documented: Result Date Time B/P 103/70 12/02 0805 Temp 98.1 12/02 0805 Pulse 89 12/02 0805 Resp 18 12/02 0805 Pulse Ox 97 12/01 0748 B/P Mean 90.0 11/30 1215 PATIENT WEIGHT: Weight (lb): 205Weight (oz): Weight (kg): 92.986 Physical ExamLungs: unlabored breathingAbdomen: soft, no abnormal tendernessIncision site: well approximated edges, cherry intact, dressing clean dry, dry, no drainage, no inflammationUterus: firm, tender, non-tenderFundus: at the umbilicusLochia: normalLower extremities: Edema: none Calf tenderness: negative ResultFindings/data:Laboratory Tests: 12/02 12/02 12/02 12/01 1503 0943 0633 2059 Chemistry POC Glucose (65 - 110 mg/dL) 206 H 200 H 64 L 186 H Diagnosis, Assessment Plan Diagnosis, Assessment PlanAssessment: nml progress, diabetes in suboptimal controlPlan: routine care, increase insulin at 1657 RPT #:[id number] OF REPORT PRProgress Qpjh2200-51-39I32:47:00F.KCGK82570 130-0301AVAvailable for patient mloaEPSLEEGUMFYDWG1604-36-33L26:57 :42 2020-12-01 17:51:00 ROxwjbdineo485042755122-49-56E79:5 [facility] 1:00 [facility] ([facility])OB Disch PostpartumREPORT#:[id number] REPORT STATUS: SignedDATE:12/01/20 TIME: 175 PATIENT: TASHI MOSQUERA UNIT #: [id number]#: [id number] ROOM/BED: [facility]-ADOB: [birth year] AGE: 25 SEX: F ATTEND: Natalie Corrales [facility] AUTHOR: Natalie Corrales MD * ALL edits or amendments must be made on the electronic/computer document * Subjective SubjectivePatient reports: Patient reports: Yes: normal lochia, pain management effective, tolerating po well, voiding well, flatus. No: complaints. Objective GeneralVS:Vital Signs Date Temp Pulse Resp B/P B/P Mean Pulse Ox FiO2 11/30-12/01 97.6-98.4 68-99 18-20 95-108/61-72 97 Last Documented: Result Date Time B/P 108/12/01 1605 Temp 98.2 12/01 1605 Pulse 92 12/01 1605 Resp 18 12/01 1605 Pulse Ox 97 12/01 0748 B/P Mean 90.0 11/30 1215 PATIENT WEIGHT: Weight (lb): 205Weight (oz): Weight (kg): 92.986 Physical ExamAbdomen: post gravid, soft, no abnormal tendernessIncision site: well approximated edges, cherry intact, dressing clean dry, dry, no drainage, no inflammationUterus: involution appropriate, non-tenderFundus: firm, below the umbilicus, non-tender Discharge Summary GeneralHospital course: cervical ripening, induction of labor, primary LTCS in labor, nml postop/postpart careDischarge diagnosis: anemia (acute blood loss), s/p CD for NRFHRPlan: routine care Discharge InstructionsDiet: DiabeticActivity: per routine PP careAdditional discharge routines: PCP Follow-Up (FU WITH DR CORRALES IN 10 DAYS)Discharge meds:Continue taking these medications:INSULIN ASPART (NovoLOG) 100 UNIT/ML VIAL 1 UNITS SUBCUTANEOUS DIRECTED. INSULIN NPH HUMAN RECOM (NovoLIN N) 100 UNIT/ML VIAL 44 UNITS SUBCUTANE. EVERY MORNING. INSULIN NPH HUMAN RECOM (NovoLIN N) 100 UNIT/ML VIAL 44 UNITS SUBCUTANE. BEDTIME. PNV WITH FE FUMARATE/FA () 1 EACH TAB TABLET ORAL EVERY MORNING. Start taking the following new medications:IBUPROFEN (MOTRIN) 600 MG TAB 600 MILLIGRAM ORAL EVERY 6 HOURS NEEDED. as needed for WOUND PAIN Qty = 28 No Refills OXYCODONE HCL (OXYCODONE HCL) 5 MG TAB 5 MILLIGRAM ORAL EVERY 6 HOURS NEEDED. as needed for WOUND PAIN Qty = 28 No Refills DOCUSATE SODIUM (COLACE) 100 MG CAP 200 MILLIGRAM ORAL BEDTIME. as needed for CONSTIPATION Qty = 20 No Refills at [address] [facility] #:[id number] OF REPORT OBObstetric whzx5307-24-39F84:51:00F.XXEP50734 129-0350AVAvailable for patient mvbxTHZQNOGAEKPTCI9621-13-99U46:53 :09 2020-12-01 06:35:00 LIzrbdmjpyr035573009682-54-36L23:3 [facility] 5:[id number] [facility] [address] [place], [place] [address] PATIENT NAME: TASHI MOSQUERA ADMIT DATE: 11/29/20ACCOUNT NO: [id number] ROOM NO: F.2030 AGE: 25 SEX: F ADMITTING PHYSICIAN: Natalie Corrales MD ATTENDING PHYSICIAN: Natalie Corrales MD OPERATION DATE: 11/30/2020 PREOPERATIVE DIAGNOSES:1. Intrauterine at 36+ weeks.2. Uncontrolled type 1 diabetes mellitus.3. Nonreassuring heart rate, remote from delivery. POSTOPERATIVE DIAGNOSES:1. Intrauterine at 36+ weeks.2. Uncontrolled type 1 diabetes mellitus.3. Nonreassuring heart rate, remote from delivery. PROCEDURE: Primary low transverse section via Pfannenstiel. SURGEON: Natlaie Corrales MD. TRUCK CRANE OPERATOR HELPER: Annika Cameron MD (R), LPN INSTRUCTOR resident. COMPLICATIONS: None. ESTIMATED BLOOD LOSS: 750 mL. INTRAVENOUS FLUIDS: 2000 mL LR. URINE OUTPUT: 250 mL clear at the end of the procedure. FINDINGS: Female in cephalic presentation, Apgars 8 and 8, weight 2910grams. NICU was called. Placenta 3-vessel cord intact. Uterus, tubes andovaries within normal limits. An extra digit was noted in the left lowerextremity, also the shape of the baby's ears was abnormal; therefore NICU wascalled. PROCEDURE IN DETAIL: After the risks, benefits, alternatives and the nature ofthe procedure were discussed with the patient at length, she voicedunderstanding, all her questions were answered to satisfaction and she signedconsent. She was taken to the operating room where spinal anesthesia was foundto be adequate. She was then prepared and draped in normal sterile fashion indorsal supine position with a leftward tilt. A Pfannenstiel skin incision wasdone with a scalpel and carried down to the underlying layer of fascia, whichwas incised in the midline and extended laterally with Sampson scissors. Thefascial borders were serially grasped with Racquel clamps, elevated and theunderlying layer of muscles were dissected off bluntly. The muscles wereseparated in the midline as well as the peritoneum. The bladder flap was PATIENT NAME: TASHI MOSQUERA created. The bladder blade was reinserted and the lower segment of the uteruswas incised in the midline and extended laterally with the manual lathe operator's fingersand amniotomy was done with clear fluid obtained. The head was deliveredatraumatically followed by the rest of the body. Nose and mouth were suctioned. Cord clamped and cut. Baby handed off to the awaiting baby care team. Placenta was delivered spontaneously. The uterus was exteriorized and clearedof all clots and debris. The uterine incision was closed with 1.0 chromic inusual locked fashion. Another layer of the same suture was placed to obtainexcellent hemostasis. The uterus was returned to the abdomen. The gutters werecleared of all clots and debris. The fascia was closed with 0 Vicryl in arunning fashion. Excellent hemostasis was noted. Irrigation with warm normalsaline was done, excellent hemostasis was noted. The subcutaneous layer wasclosed with 3.0 Vicryl in a running fashion. Excellent hemostasis was noted. The skin was closed with cherry. All counts were correct. The patient wastaken to the recovery room awake and stable condition. PATHOLOGY: Placenta. Cord gases were sent. Dictated By: Natalie Corrales MD WT: OP:F.BRAVO/FELICIA/NTSDD: 12/01/2020 06:35:07DT: 12/01/2020 07:40:32Conf#: [id number]#: [id number] Authenticated by Natalie Corrales MD On 12/06/2020 12:17:45 AM at 0018 PATIENT NAME: TASHI MOSQUERA dvqnnw8962-41-13A35:40:00F.UIZ1066 0129-0045AVAvailable for patient rbpqUIXYVTXDYMJFKS2227-26-27F33:18 :08 2020-11-30 18:19:00 ULfiemfxciu343935894042-08-64Q55:1 [facility] 9:00 [facility] ([facility])OB Admission / H PREPORT#:[id number] REPORT STATUS: SignedDATE:11/30/20 TIME: 1818 PATIENT: TASHI MOSQUERA UNIT #: [id number]#: [id number] ROOM/BED: ADOB: [birth year] AGE: 25 SEX: F ATTEND: Natalie Corrales MDADM AUTHOR: Annika Velarde MD R2 * ALL edits or amendments must be made on the electronic/computer document * OB HistoryHPI:25 y/o @ 36.4 weeks a (RADHA 12/24/20) admitted for IOL. Patient PNC complicated by Type 1 diabetes on Insulin, poorly controlled, and polyhydramnios. PNC with Dr. Corrales. history: : 1Current : Admission EGA (weeks) 36 Admission EGA (days) 3Conditions of : diabetes - pre-existingLabs: Rubella: immune Hepatitis B: negative HIV: negative STD: negative Syphilis: currently negative GBS: negativePast medical history: diabetes mellitusPast surgical history: denies PSHFamily historyMOTHER (Diabetes mellitus). AllergiesCoded Allergies:No Known Allergies (11/22/20) Review of SystemsConstitutional:Denies: chills, fatigue, fever, generalized weakness, lethargy, malaise, recent wt loss, other. Respiratory:Denies: SEBASTIAN (dyspnea on exertion), hemoptysis, non productive cough, parox nocturnal dyspnea, pleurisy, pleuritic pain, pneumonia, productive cough (sputum), SOB, wheezing, other. Cardiovascular:Denies: chest pain, SEBASTIAN (dyspnea on exertion), edema, orthopnea, palpitations, parox nocturnal dyspnea, other. Objective GeneralVS:Last Documented: Result Date Time B/P 105/64 11/30 1410 Temp 37.0 11/30 1410 Pulse 71 11/30 1410 Resp 18 11/30 1410 B/P Mean 90.0 11/30 1215 Pulse Ox 98 11/30 1215 Vital SignsDate Temp Pulse Resp B/P B/P Mean Pulse Ox LjQ796/-11/30 35.7-37.2 71-143 16-20 95-125/49-85 64.0-100.0 96-100 PATIENT WEIGHT: Weight (lb): 205Weight (oz): Weight (kg): 92.986 Physical ExamHEENT: normocephalic w/o injuryLungs: unlabored breathingBreasts: deferredAbdomen: gravid, soft, no abnormal tendernessUterine activity: Monitor: tocoCervical/ exam: Dilatation (cm): 0 - closed Effacement (%): 30 station: - 3Membranes: Membranes: IntactBaby A: Baby A baseline: 150 bpm Baby A variability: moderate 6-25 bpm Baby A accelerations: 15 X 15 Baby A decelerations: late Baby A FHR category: category 2 Diagnosis, Assessment Plan Diagnosis, Assessment PlanFree Text A P:25 y/o G1 @36.4 weeks with T1DM on insulin admitted for IOL. Patient delivered via primary due NRFHTs remote from delivery. Assessment/Impression: abnormal FHR patternPlan: at 1829 RPT #:[id number] OF REPORT HPHistory and physical xepohaeikfv8992-61-89I77:19:00F.PD DI75284556-2911FMZuyfkxmzq for patient jrwgDUDXVIHUIRUBVQ6159-74-23O88:29 :39 2020-11-30 18:19:00 CElpcdkkhie009017359176-88-53V98:1 [facility] 9:00 [facility] ([facility])OB Admission / H PREPORT#:[id number] REPORT STATUS: SignedDATE:11/30/20 TIME: 1819 PATIENT: TASHI MOSQUERA UNIT #: [id number]#: [id number] ROOM/BED: 2029-ADOB: [birth year] AGE: 25 SEX: F ATTEND: Natalie Corrales MDADM AUTHOR: Annika Velarde MD R2 * ALL edits or amendments must be made on the electronic/computer document * OB HistoryHPI:25 y/o @ 36.4 weeks a ([facility] 12/24/20) admitted for IOL. Patient PNC complicated by Type 1 diabetes on Insulin, poorly controlled, and polyhydramnios. PNC with Dr. Corrales. history: : 1Current : Admission EGA (weeks) 36 Admission EGA (days) 3Conditions of : diabetes - pre-existingLabs: Rubella: immune Hepatitis B: negative HIV: negative STD: negative Syphilis: currently negative GBS: negativePast medical history: diabetes mellitusPast surgical history: denies PSHFamily historyMOTHER (Diabetes mellitus). AllergiesCoded Allergies:No Known Allergies (11/22/20) Review of SystemsConstitutional:Denies: chills, fatigue, fever, generalized weakness, lethargy, malaise, recent wt loss, other. Respiratory:Denies: SEBASTIAN (dyspnea on exertion), hemoptysis, non productive cough, parox nocturnal dyspnea, pleurisy, pleuritic pain, pneumonia, productive cough (sputum), SOB, wheezing, other. Cardiovascular:Denies: chest pain, SEBASTIAN (dyspnea on exertion), edema, orthopnea, palpitations, parox nocturnal dyspnea, other. Objective GeneralVS:Last Documented: Result Date Time B/P 105/64 11/30 1410 Temp 37.0 11/30 1410 Pulse 71 11/30 1410 Resp 18 11/30 1410 B/P Mean 90.0 11/30 1215 Pulse Ox 98 11/30 1215 Vital SignsDate Temp Pulse Resp B/P B/P Mean Pulse Ox YqD819/27-11/30 35.7-37.2 71-143 16-20 95-125/49-85 64.0-100.0 96-100 PATIENT WEIGHT: Weight (lb): 205Weight (oz): Weight (kg): 92.986 Physical ExamHEENT: normocephalic w/o injuryLungs: unlabored breathingBreasts: deferredAbdomen: gravid, soft, no abnormal tendernessUterine activity: Monitor: tocoCervical/ exam: Dilatation (cm): 0 - closed Effacement (%): 30 station: - 3Membranes: Membranes: IntactBaby A: Baby A baseline: 150 bpm Baby A variability: moderate 6-25 bpm Baby A accelerations: 15 X 15 Baby A decelerations: late Baby A FHR category: category 2 Diagnosis, Assessment Plan Diagnosis, Assessment PlanFree Text A P:25 y/o G1 @36.4 weeks with T1DM on insulin admitted for IOL. Patient delivered via primary due NRFHTs remote from delivery. Assessment/Impression: abnormal FHR patternPlan: at 1829 at 1942 RPT #:[id number] OF REPORT HPHistory and physical ayefikvtbna3726-56-00F44:19:00F.PD [id number] for patient hkqmVOWIXNNRTECOWK1071-64-94F95:42 :52 2020-11-26 12:07:00 CDkfmnlorzx261051369100-45-54G12:0 [facility] 7:00 [facility] ([facility])OB Disch UndeliveredREPORT#:[id number] REPORT STATUS: SignedDATE:11/26/20 TIME: 1207 PATIENT: TASHI MOSQUERA UNIT #: [id number]#: [id number] [address] [birth year] AGE: 25 SEX: F ATTEND: Natalie Corrales [facility] AUTHOR: Natalie Corrales MD * ALL edits or amendments must be made on the electronic/computer document * Subjective SubjectivePatient reports: Patient reports: Yes: normal movement. No: complaints, abdominal pain, vaginal bleeding, leaking fluid, contractions. Comments:she had low sugars 2 nights in a row down to 70s with shaking requiring a snack,which bumped her fasting asccucheck Objective GeneralVS:Last Documented: Result Date Time B/P Mean 99.0 11/26 1015 Pulse Ox 99 11/26 1015 B/P 122/83 11/26 1015 Temp 97.3 11/26 1015 Pulse 107 11/26 1015 Resp 18 11/26 1015 Vital Signs Date Temp Pulse Resp B/P B/P Mean Pulse Ox FiO2 11/25-11/26 97.3 96-107 18 122-128/82-83 99.0-101.0 99 PATIENT WEIGHT: Weight (lb): Weight (oz): Weight (kg): 92.623780 Physical ExamFHR evaluation: Baby A baseline: 140 bpm Baby A variability: moderate 6-25 bpm Baby A accelerations: 15 X 15 Baby A FHR category: category 1HEENT: normocephalic w/o injuryNeuro: Exam: alert, oriented x3, normal speechAbdomen: gravid, soft, no abnormal tenderness Discharge Undelivered GeneralAssessment:Patient is a 25 year old at 36 weeks gestation admitted for uncontolled DM. She always showed me normal accuchecks but her HbA1C was 11.4. She was admitted for diabetes control, her sugars were high on admissionPlan:I discussed with her that i will be decreasing the insulin at bedtime. I recommended to postpone the delivery to 37 weeks insteaed of friday night for better lung matrurity especially with diabetes, and especially that sugars are controlled now and we have to insulin. She got upset and starting to useF words frequently and said she was leaving. I tried to tell her to wait and seethe next 48 hours and we can make a final winters but she insisted on leaving. I told her it would be safer to monitor the baby and keep her sugars controlled inpatient since they were not controlled outpatient.Hospital course:she was admitted, received celestone, insulin was adjusted to control her diabetes Discharge InstructionsDiet: DiabeticAdditional Discharge Routines: PCP Follow-Up (this with me ), instruction was given to RN when she called to inform ne that patient is signingto leave against medical advice at 1214 RPT #:[id number] OF REPORT OBObstetric vmpb8963-98-27L13:07:00F.NSAV91418 [id number] for patient rzflZSEXWYTBZJNXFM0296-05-13N42:15 :11 2020-11-25 20:26:00 AZdbwfocfly064664599448-45-09C22:2 [facility] 6:00 [facility] ([facility])OB Antepartum Prog NoteREPORT#:[id number] REPORT STATUS: SignedDATE:11/25/20 TIME: 2025 PATIENT: TASHI MOSQUERA UNIT #: [id number]#: [id number] [address] [birth year] AGE: 25 SEX: F ATTEND: Nataile Corrales [facility] AUTHOR: Natalie Corrales MD * ALL edits or amendments must be made on the electronic/computer document * Subjective SubjectivePatient reports: Patient reports: Yes normal movement, No no complaints, No abdominal pain, No vaginal bleeding, No leaking fluid, No contractions ObjectiveVS:Last Documented: Result Date Time B/P Mean 84.0 11/25 0945 Pulse Ox 98 11/25 0945 B/P 108/71 11/25 0945 Pulse 100 11/25 0945 Resp 16 11/25 0945 Temp 98.1 11/24 1655 Vital Signs Date Temp Pulse Resp B/P B/P Mean Pulse Ox FiO2 11/24-11/25 100-112 16 108-109/71-76 84.0-88.0 97-98 PATIENT WEIGHT: Weight (lb): Weight (oz): Weight (kg): 92.469565 Procedures: non stress testHEENT: normocephalic w/o injuryNeuro: Exam: alert, oriented x3, normal speechAbdomen: gravid, soft, no abnormal tendernessBaby A: Baby A baseline: 140 bpm Baby A variability: moderate 6-25 bpm Baby A accelerations: 15 X 15 Baby A FHR category: category 1 Diagnosis, Assessment Plan Diagnosis, Assessment PlanAssessment: IUP 35 6/7 weeks, DM I uncontrolled. non compliancePlan: continue current managmnt, betamethasone admin, surveillance, diabetes contol, IOL on Friday will adjut insulin at 2026 RPT #:[id number] OF REPORT PRProgress Zveo0018-40-56L90:26:00F.HURB28002 [id number] for patient whxqQZFYVJFRMVVBQX7483-85-22B68:27 :31 2020-11-24 14:34:00 FIqjuehuyvk475886099732-77-68R20:3 [facility] 4:00 [facility] ([facility])OB Antepartum Prog NoteREPORT#:[id number] REPORT STATUS: SignedDATE:11/24/20 TIME: 1434 PATIENT: TASHI MOSQUERA UNIT #: [id number]#: [id number] [address] [birth year] AGE: 25 SEX: F ATTEND: Natalie Corrales AUTHOR: Natalie Corrales MD * ALL edits or amendments must be made on the electronic/computer document * Subjective SubjectivePatient reports: Patient reports: Yes normal movement, No no complaints, No abdominal pain, No vaginal bleeding, No leaking fluid, No contractions ObjectiveVS:Last Documented: Result Date Time B/P Mean 90.0 11/24 0909 Pulse Ox 99 11/24 0909 B/P 109/81 11/24 0909 Temp 97.8 11/24 0909 Pulse 99 11/24 0909 Resp 14 11/24 0909 Vital Signs Date Temp Pulse Resp B/P B/P Mean Pulse Ox FiO2 11/23-11/24 97.8 94-99 14-18 109-117/71-81 88.0-90.0 97-99 PATIENT WEIGHT: Weight (lb): Weight (oz): Weight (kg): 92.940995 Procedures: non stress testHEENT: normocephalic w/o injuryNeuro: Exam: alert, oriented x3, normal speechAbdomen: gravid, soft, no abnormal tendernessBaby A: Baby A baseline: 140 bpm Baby A variability: moderate 6-25 bpm Baby A accelerations: 15 X 15 Baby A FHR category: category 1 Diagnosis, Assessment Plan Diagnosis, Assessment PlanAssessment: IUP 35 5/7 weeks, DM I uncontrolled. non compliancePlan: continue current managmnt, betamethasone admin, surveillance, diabetes contol, IOL on Friday, will adjut insulin at 1435 RPT #:[id number] OF REPORT PRProgress Uyzk9136-97-45W05:34:00F.FXRE80836 [id number] for patient weutBGXUDFGZKWEVEF1707-61-82Q28:35 :56 2020-11-23 14:30:00 IZifbqnpwjb695837020431-89-67Y67:3 [facility] 0:00 [facility] ([facility])OB Antepartum Prog NoteREPORT#:[id number] REPORT STATUS: SignedDATE:11/23/20 TIME: 1430 PATIENT: TASHI MOSQUERA UNIT #: [id number]#: [id number] [address] [birth year] AGE: 25 SEX: F [facility]: Natalie [facility]ral[facility] MD * ALL edits or amendments must be made on the electronic/computer document * Subjective SubjectivePatient reports: Patient reports: Yes normal movement, No no complaints, No abdominal pain, No vaginal bleeding, No leaking fluid, No contractions Objective Nursing Documentation ReviewNursing data:The data set between the solid lines has been imported from nursing documentation. Any exceptions have been noted below under Provider comments. ROM date: ROM time: Labor onset date: Labor onset time: Provider comments on imported nursing data: [] Procedures: non stress testHEENT: normocephalic w/o injuryNeuro: Exam: alert, oriented x3, normal speechAbdomen: gravid, soft, no abnormal tendernessBaby A: Baby A baseline: 140 bpm Baby A variability: moderate 6-25 bpm Baby A accelerations: 15 X 15 Baby A FHR category: category 1 Diagnosis, Assessment Plan Diagnosis, Assessment PlanAssessment: IUP 35 4/7 weeks, DM I uncontrolled. non compliancePlan: continue current managmnt, betamethasone admin, surveillance, diabetes contol, IOL on Friday at 1432 RPT #:[id number] OF REPORT PRProgress Cqil5875-14-27T97:30:00F.XODZ22430 [id number] for patient bmmqASESQAIPEWOXXX3078-17-59E22:32 :48 2020-11-22 17:51:00 TVcwjgpcgat249540434585-44-99N54:5 [facility] 1:00 [facility] ([facility])OB Admission / H PREPORT#:[id number] REPORT STATUS: SignedDATE:11/22/20 TIME: 175 PATIENT: TASHI MOSQUERA UNIT #: [id number]#: [id number] [address] [birth year] AGE: 25 SEX: F ATTEND: Natalie Corrales [facility] AUTHOR: Natalie Corrales MD * ALL edits or amendments must be made on the electronic/computer document * OB HistoryChief complaint: i am HPI:25 y old G1 at 35.3 weeks who [...] complaints Past medical history: diabetes mellitus (type I)Past surgical history: denies PSHSocial history: no alcohol use, no tobacco use, no drug useFamily historyMOTHER (Diabetes mellitus). Medications:Home Medications:INSULIN NPH HUMAN RECOM (NovoLIN N) 44 UNITS SQ QAM INSULIN NPH HUMAN RECOM (NovoLIN N) 44 UNITS SQ BEDTIME PNV WITH FE FUMARATE/FA () INSULIN ASPART (NovoLOG) 1 UNITS SUBQ ASDIR AllergiesCoded Allergies:No Known Allergies (11/22/20) Review of SystemsConstitutional:Denies: fatigue. Skin:Denies: abrasion. Allergy/Immun:Denies: allergic reaction, anaphylaxis, hives, itching, rhinorrhea, sneezing, other. Eyes:Denies: redness. ENT:Denies: ear drainage. Respiratory:Denies: SEBASTIAN (dyspnea on exertion). Cardiovascular:Denies: chest pain. GI:Denies: abdominal pain. :Denies: dysuria. Musculoskeletal:Denies: arthritis, extremity pain, extremity swelling, joint pain, joint swelling, lumbar pain, myalgias, neck pain, thoracic pain, other. Objective GeneralVS:Last Documented: Result Date Time B/P Mean 98.0 11/22 1258 Pulse Ox 100 11/22 1258 B/P 122/85 11/22 1258 Pulse 98 11/22 1258 Vital Signs Date Temp Pulse Resp B/P B/P Mean Pulse Ox FiO2 11/22 98 122/85 98.0 100 PATIENT WEIGHT: Weight (lb): Weight (oz): Weight (kg): 92.467866 Physical ExamHEENT: normocephalic w/o injuryCardiac: regular rate and rhythmLungs: clear to auscultationBreasts: deferredNeuro: Exam: alert, oriented x3, normal speechAbdomen: gravid, soft, no abnormal tenderness Diagnosis, Assessment Plan Diagnosis, Assessment PlanAssessment/Impression: IUP 35 3/7 weeks, uncontrolled DM I, non compliance, polyhydramniosPlan: admit to inpatient, betamethasone admin, diabetes control, inpatient mgt until delivery around 36- 37 weeks due to high risk of demise at 1801 RPT #:[id number] OF REPORT HPHistory and physical qgrgvoeljil9996-01-90F13:51:00F.PD [id number] for patient vpbbJSGGUZMVAIISBY4176-12-12W67:02 :07 2020-09-28 04:51:00 DWuamlpueyw211188680329-16-45N20:5 [facility] 1:00 [facility] ([facility])EMERGENCY PROVIDER REPORTREPORT#:[id number] REPORT STATUS: SignedDATE:09/28/20 TIME: 045 PATIENT: TASHI MOSQUERA UNIT #: [id number]#: [id number] ROOM/BED:AGE: 25 SEX: F PCP PHYS: Natalie CorralesERVJD AUTHOR: Cipriano Alex III, MD * ALL edits or amendments must be made on the electronic/computer document * TONY History Nursing Documentation ReviewNursing data: [facility] TONY 25 year old white female Primagravida @ 27.3 weeksCC Vaginal bleedingHPI She came to triage with a recent episode of lite vaginal bleeding. She denies vaginal bleeding in the past. The episode happened at about 1 am spontaneously. No recent intercourse. No ab pain, not leaking amniotic fluid, endorses positive movements. She is a type 1 insulin dependant diabetic. She was recently hospitalized on 09/26 and treated for diabetic ketoacidoisis. She recovered and was discharged from the hospital yesterday. She had been advised to stay in the hospital as this was her second admission and treatment for DKA. care with Dr. Corrales. Claims normal OB USG during her . PMH Allergies Allergy Severity Reaction Updated Coded No Known Allergies 09/28/20 OB Primagravida PMH Type 1 IDDM, DKA PSH Denied MEDS Insulin FMH Positive for diabetes SH No smoke, no etoh, no drugsROS No fever, no cough, no sore throat, no shortness of breath, no chest pain, no ab pain, not daniela, not leaking amniotic fluid, endorses positive movements. Family historyMOTHER (Diabetes mellitus). Medications:Home Medications:Medication Dose/Rte/Freq Days Qty Entered Last Max Daily Dose Reviewed INSULIN NPH HUMAN 36 UNITS SUBQ 09/28/20 RECOM BID AC 0401 (NovoLIN N)Strength: 100 UNIT/ML VIAL INSULIN ASPART (NovoLOG) 1 UNITS SUBQ ASDIR 09/28/20trength: 100 UNIT/ML VIAL 0401 AllergiesCoded Allergies:No Known Allergies (09/28/20) Objective GeneralVS:Patient Weight Weight (lb): 180Weight (oz): Weight (kg): 81.647No acute distress, alert, normal affectAfebrile, 123/87, pulse 103PUL Chest clear to auscultation, unlabored respirationsCVR RRRAB Gravid and nontenderSVE No vaginal bleeding, cervix is closedEXT No pathological pretibial edema, normal reflexes, no calf tendernessTOCO She is not contractingFHT Reassuriing, category one, accelerations are present Refused to have labs drawn. Agreed to a UA and USG only. Laboratory Tests: 09/28 09/28 0517 0435 Chemistry POC Glucose (65 - 110 mg/dL) 91 Urines Urine Color (YELLOW) YELLOW Urine Appearance (CLEAR) Slightly-Cloudy Urine pH (5 - 9) 5.0 Ur Specific Oxford (1.001 - 1.035) 1.027 Urine Protein (NEG) [...] RARE Urine Mucus (NONE SEEN) RARE Recent Impressions:ULTRASOUND - US LTD 09/28 0515 Report Impression - Status: SIGNED Entered: 09/28/2020 0609 IMPRESSION: Single live intrauterine at 27 weeks 3 days as abovedescribed. ALEXY 17.8 cm. Trace fluid in the endocervical canal. The structures are not individually characterized on thisexamination, but no abnormality is demonstrated. GENERAL OBSERVATIONS REGARDING ULTRASOUND: 1. A normal or negative sonogram report should not delay furtherinvestigation of a clinically suspicious or abnormal . 2. position or overlap of parts may prevent completeevaluation of the fetus. 3. Congenital and developmental abnormalities are not alwayssonographically visualized. 4. Repeat sonograms may be necessary depending on the clinicaldevelopment during . SL: TPAINTER-H Impression By: Samanta Jaffe MD ResultsFindings/Data:Laboratory Tests: 09/28 09/28 0517 0435 Chemistry POC Glucose (65 - 110 mg/dL) 91 Urines Urine Color (YELLOW) YELLOW Urine Appearance (CLEAR) Slightly-Cloudy Urine pH (5 - 9) 5.0 Ur Specific Oxford (1.001 - 1.035) 1.027 Urine Protein (NEG) [...] RARE Urine Mucus (NONE SEEN) RARE Recent Impressions:ULTRASOUND - US LTD 09/28 515 Report Impression - Status: SIGNED Entered: 09/28/2020 0609 IMPRESSION: Single live intrauterine at 27 weeks 3 days as abovedescribed. ALEXY 17.8 cm. Trace fluid in the endocervical canal. The structures are not individually characterized on thisexamination, but no abnormality is demonstrated. GENERAL OBSERVATIONS REGARDING ULTRASOUND: 1. A normal or negative sonogram report should not delay furtherinvestigation of a clinically suspicious or abnormal . 2. position or overlap of parts may prevent completeevaluation of the fetus. 3. Congenital and developmental abnormalities are not alwayssonographically visualized. 4. Repeat sonograms may be necessary depending on the clinicaldevelopment during . SL: TPAINTER-H Impression By: Samanta Jaffe MD Diagnosis, Assessment Plan Diagnosis, Assessment PlanFree Text A P:A IUP at 27.3 weeks Vaginal bleeding benign exam today. no vaginal bleeding noted on exam. not in labor with reassuring fhts Type 1 IDDM blood sugar today 91P I gave her results of her testing. I also spoke with Dr Ni. Cleared for discharge. Labor precautions. jr at 1156 RPT #:[id number] OF REPORT OBObstetric lxwk3122-96-21R75:51:00F.ZFGA26462 [id number] for patient sitbKYREIGYQXJPJXW0078-78-90S41:57 :13 2020-09-27 17:35:00 HLnkvitezlq484349149200-85-93V30:3 [facility] 5:00 [facility] ([facility])OB Disch UndeliveredREPORT#:[id number] REPORT STATUS: SignedDATE:09/27/20 TIME: 1735 PATIENT: TASHI MOSQUERA UNIT #: [id number]#: [id number] [facility] [birth year] AGE: 25 SEX: F ATTEND: Natalie Corrales [facility] AUTHOR: Natalie Corrales MD * ALL edits or amendments must be made on the electronic/computer document * Subjective SubjectivePatient reports: Patient reports: Yes: abdominal pain, vaginal bleeding, leaking fluid, contractions, normal movement. No: complaints. Comments:i saw her around 8am Objective GeneralVS:Last Documented: Result Date Time Pulse Ox 98 [...] 71-90 97-100 21 Patient Weight Weight (lb): 182Weight (oz): 5.16Weight (kg): 82.700 Physical ExamHEENT: normocephalic w/o injuryNeuro: Exam: alert, oriented x3, normal speechAbdomen: gravid, soft, no abnormal tenderness Discharge Undelivered GeneralAssessment:Patient is a 25 year old G 1 at 27.2 weeks gestation admitted for diabetic ketoacidosis Plan:she asked to leave and i advised her to stay to monitor sugars and BP, risks discussed. late afternoon, I recevied a notice from Vianey her RN that patient left AMAHospital course:insulin drip was started per protocol, anion gap was closed. She was started onher insulin regimen which was increased to Levemir 42u BID and Humalog 20u before meals. Her sugars much improved. I recommended to stay inpatient due to recurrent DKA (she had one earlier in ) and new onset preeclampsia, whch could lead to advserse outcomes including and maternal ormorbiditiesNotes:ULTRASOUND: POSTERIOR PLACENTA, BREECH, EFW 982 GMS AT 42%, ALEXY 22 CM, BPP 8/8, NL UA DOPPLERS Discharge InstructionsDiet: DiabeticAdditional Discharge Routines: follow up one week at my officePrescriptions:Stop taking the following medications:INSULIN ASPART (NovoLOG) 100 UNIT/ML VIAL 1 UNITS SUBCUTANEOUS DIRECTED. INSULIN NPH HUMAN RECOM (NovoLIN N) 100 UNIT/ML VIAL 36 UNITS SUBCUTANEOUS TWICE DAILY BEFORE MEALS. at 1742 RPT #:[id number] OF REPORT OBObstetric fqwf1869-55-36Q81:35:00F.LCQY32023 [id number] for patient muidPMNSWAIBIVWAXA5428-84-79Q07:42 :45 2020-09-27 17:35:00 UWhoizdyxdx785927334500-20-41V78:3 [facility] 5:00 [facility] ([facility])OB Disch UndeliveredREPORT#:[id number] REPORT STATUS: SignedDATE:09/27/20 TIME: 1735 PATIENT: TASHI MOSQUERA UNIT #: [id number]#: [id number] [facility] [birth year] AGE: 25 SEX: F ATTEND: Natalie Corrales [facility] AUTHOR: Natalie Corrales MD * ALL edits or amendments must be made on the electronic/computer document * See AddendumSubjective SubjectivePatient reports: Patient reports: Yes: abdominal pain, vaginal bleeding, leaking fluid, contractions, normal movement. No: complaints. Comments:i saw her around 8am Objective GeneralVS:Last Documented: Result Date Time Pulse Ox 98 [...] 71-90 97-100 21 Patient Weight Weight (lb): 182Weight (oz): 5.16Weight (kg): 82.700 Physical ExamHEENT: normocephalic w/o injuryNeuro: Exam: alert, oriented x3, normal speechAbdomen: gravid, soft, no abnormal tenderness Discharge Undelivered GeneralAssessment:Patient is a 25 year old G 1 at 27.2 weeks gestation admitted for diabetic ketoacidosis Plan:she asked to leave and i advised her to stay to monitor sugars and BP, risks discussed. late afternoon, I recevied a notice from Vianey her RN that patient left AMAHospital course:insulin drip was started per protocol, anion gap was closed. She was started onher insulin regimen which was increased to Levemir 42u BID and Humalog 20u before meals. Her sugars much improved. I recommended to stay inpatient due to recurrent DKA (she had one earlier in ) and new onset preeclampsia, whch could lead to advserse outcomes including and maternal ormorbiditiesNotes:ULTRASOUND: POSTERIOR PLACENTA, BREECH, EFW 982 GMS AT 42%, ALEXY 22 CM, BPP 8/8, NL UA DOPPLERS Discharge InstructionsDiet: DiabeticAdditional Discharge Routines: follow up one week at my officePrescriptions:Stop taking the following medications:INSULIN ASPART (NovoLOG) 100 UNIT/ML VIAL 1 UNITS SUBCUTANEOUS DIRECTED. INSULIN NPH HUMAN RECOM (NovoLIN N) 100 UNIT/ML VIAL 36 UNITS SUBCUTANEOUS TWICE DAILY BEFORE MEALS. at 1742 Addendum 1: 09/27/201747 by Natalie Corrales MD NST: BASELINE 140, MOD VARIABILITY, ACCELS 10 X 10, CATEG I at 1748 RPT #:[id number] OF REPORT OBObstetric bquz2908-08-70Y49:35:00F.CADG12116 [id number] for patient asrtXMMMZUCCJXHHXY3633-33-71T79:49 :15 2020-09-26 18:37:00 TEqsboieytj800188330800-41-57C00:3 [facility] 7:00 [facility] ([facility])Clinical NoteREPORT#:[id number] REPORT STATUS: SignedDATE:09/26/20 TIME: 1836 PATIENT: TASHI MOSQUERA UNIT #: [id number]#: [id number] [facility] [birth year] AGE: 25 SEX: F ATTEND: Natalie Corrales [facility] AUTHOR: Natalie Corrales MD * ALL edits or amendments must be made on the electronic/computer document * Clinical NoteNote:I was present and saw her with Dr Kerr. I agree with her note and plan, I concur with the plan of care. at 1839 RPT #:[id number] OF REPORT CLClinical skgy5771-25-36O47:37:00F.NYMJ23032 [id number] for patient hbktPIDSIZIJNXLCNC8222-16-77Y55:39 :25 2020-09-26 15:39:00 NRpfyifvcmv943115156193-62-47T43:3 [facility] 9:00 [facility] ([facility])OB Admission / H PREPORT#:[id number] REPORT STATUS: SignedDATE:09/26/20 TIME: 1539 PATIENT: TASHI MOSQUERA UNIT #: [id number]#: [id number] ROOM/BED: [facility]-ADOB: [birth year] AGE: 25 SEX: F ATTEND: Natalie [facility]rales [facility] AUTHOR: Carol Kerr DO R2 * ALL edits or amendments must be made on the electronic/computer document * OB HistoryChief complaint: DKAHPI:Patient is a 25 y/o at 27 1/7 weeks who presents in diabetic ketoacidosis, this being her second admission. S/sx include nausea/vomitting, headache, shortness of breath. States she last ate yesterday at 3 pm, and did not eat anything else all day. She may have forgotten her fast acting insulin as well. She then proceeded to wake up at 3am with vomitting. The patient was originally diagnosed with T1DM 2 years ago. She was previously admitted to this hospital in August due to DKA. history: : 1 Term: 0 : 0 Abortus: 0 Living children: 0Current : Best EDC: 12/25/19 Admission EGA (weeks) 27 Admission EGA (days) 1Conditions of : diabetes - pre-existingPast medical history: diabetes mellitus, DKA with hospital admission in 2019Pa surgical history: denies PSHSocial history: no alcohol use, no tobacco use, no drug useFamily historyMOTHER (Diabetes mellitus). Medications:Home Medications:INSULIN ASPART (NovoLOG) 1 UNITS SUBQ ASDIR INSULIN NPH HUMAN RECOM (NovoLIN N) 36 UNITS SUBQ BID AC AllergiesCoded Allergies:No Known Allergies (08/05/20) Review of SystemsConstitutional:lethargy. Denies: chills, fatigue, fever, generalized weakness, malaise, recentwt loss. Respiratory:Reports: SOB. Denies: SEBASTIAN (dyspnea on exertion), hemoptysis, non productive cough, parox nocturnal dyspnea, pleurisy, pleuritic pain, pneumonia, productive cough (sputum), wheezing. Cardiovascular:Denies: chest pain, SEBASTIAN (dyspnea on exertion), edema, orthopnea, palpitations, parox nocturnal dyspnea. GI:Reports: nausea, vomiting. Denies: abdominal pain, anorexia, constipation, diarrhea, dysphagia, GERD, hematemesis, hematochezia, hiatal hernia, melena, rectal pain. :Reports: . Denies: dysuria, flank pain, frequency, hematuria, nocturia,pelvic pain, previous pregnancies, urgency, urinary retention, vaginal bleeding,vaginal discharge. Neuro:headache. Denies: bladder dysfunction, bowel dysfunction, change in LOC, confusion, dizziness, focal weakness, gait problem, lightheaded, numbness, seizure, slurred speech, spinning sensation, syncope, unable to speak, vision change, weakness. Objective GeneralVS:Last Documented: Result Date Time Pulse Ox 100 [...] 79-93 100 21 Patient Weight Weight (lb): 182Weight (oz): 5.16Weight (kg): 82.700 Physical ExamHEENT: normocephalic w/o injuryCardiac: tachycardiaLungs: tachypneaNeuro: Exam: alert, oriented x3, normal speechAbdomen: gravid, soft, no abnormal tendernessLower extremities: Edema: trace Bryant's sign: negative Calf tenderness: negative ResultFindings/Data:Microbiology: Date/Time Procedure - Status Source Growth 09/26 1536 Urine Culture - ORD URINE 09/26 1459 MRSA Screen - ORD NASAL Diagnosis, Assessment Plan Diagnosis, Assessment PlanFree Text A P:Patient is a 25 y/o G1 at 27 1/7 weeks who presents for admission to the ICU 2/2to diabetic ketoacidosis. PNC c/b T1DM and previous admission to hospital for DKA during current . DKA-unknown precipitating factor-rose catheter to measure I/Os-Fluids: -IV NS 1L/h x 2 h, then 500 mL/h until 5-8L of NS has been infused -Continue 100mL/hr of NS x 48 hours-Insulin:* Give 20 units insulin IV bolus, then 5-10 units/h by IV infusion* when acidosis resolved (gap is closed) and plasma glucose is <160 mg/dL, reduce insulin infusion to 0.7 - 2 units/h* Return to patient's prior SQ insulin dosing after plasma glucose stable x 12 hours Glucose* when plasma glucose ,250 mg/dL, add 5% dextrose to NSPotassium* measure K+ q 4 hours and replace per protocolBicarb: Labs at Baseline upon admission:'H/H 14.8/46.9K+ 4.7Glu: 248Anion gap: 26.9 Assessment/Impression: diabetic ketoacidosisPlan: admit to inpatient, antiemetics, IVF, surveillance, DVT prophylaxis at 1846 RPT #:[id number] OF REPORT HPHistory and physical jjcnyjoupov9343-76-12E66:39:00F.PD [id number] for patient [id number]:46 :55 2020-09-26 15:39:00 [id number]:3 [facility] 9:00 [facility] ([facility])OB Admission / H PREPORT#:[id number] REPORT STATUS: SignedDATE:09/26/20 TIME: 1539 PATIENT: TASHI MOSQUERA UNIT #: [id number]#: [id number] [facility] [birth year] AGE: 25 SEX: F ATTEND: Natalie Corrales MDADM AUTHOR: Carol Kerr DO R2 * ALL edits or amendments must be made on the electronic/computer document * OB HistoryChief complaint: DKAHPI:Patient is a 25 y/o at 27 1/7 weeks who presents in diabetic ketoacidosis, this being her second admission. S/sx include nausea/vomitting, headache, shortness of breath. States she last ate yesterday at 3 pm, and did not eat anything else all day. She may have forgotten her fast acting insulin as well. She then proceeded to wake up at 3am with vomitting. The patient was originally diagnosed with T1DM 2 years ago. She was previously admitted to this hospital in August due to DKA. history: : 1 Term: 0 : 0 Abortus: 0 Living children: 0Current : Best EDC: 12/25/19 Admission EGA (weeks) 27 Admission EGA (days) 1Conditions of : diabetes - pre-existingPast medical history: diabetes mellitus, DKA with hospital admission in 2019Pa surgical history: denies PSHSocial history: no alcohol use, no tobacco use, no drug useFamily historyMOTHER (Diabetes mellitus). Medications:Home Medications:INSULIN ASPART (NovoLOG) 1 UNITS SUBQ ASDIR INSULIN NPH HUMAN RECOM (NovoLIN N) 36 UNITS SUBQ BID AC AllergiesCoded Allergies:No Known Allergies (08/05/20) Review of SystemsConstitutional:lethargy. Denies: chills, fatigue, fever, generalized weakness, malaise, recentwt loss. Respiratory:Reports: SOB. Denies: SEBASTIAN (dyspnea on exertion), hemoptysis, non productive cough, parox nocturnal dyspnea, pleurisy, pleuritic pain, pneumonia, productive cough (sputum), wheezing. Cardiovascular:Denies: chest pain, SEBASTIAN (dyspnea on exertion), edema, orthopnea, palpitations, parox nocturnal dyspnea. GI:Reports: nausea, vomiting. Denies: abdominal pain, anorexia, constipation, diarrhea, dysphagia, GERD, hematemesis, hematochezia, hiatal hernia, melena, rectal pain. :Reports: . Denies: dysuria, flank pain, frequency, hematuria, nocturia,pelvic pain, previous pregnancies, urgency, urinary retention, vaginal bleeding,vaginal discharge. Neuro:headache. Denies: bladder dysfunction, bowel dysfunction, change in LOC, confusion, dizziness, focal weakness, gait problem, lightheaded, numbness, seizure, slurred speech, spinning sensation, syncope, unable to speak, vision change, weakness. Objective GeneralVS:Last Documented: Result Date Time Pulse Ox 100 [...] 79-93 100 21 Patient Weight Weight (lb): 182Weight (oz): 5.16Weight (kg): 82.700 Physical ExamHEENT: normocephalic w/o injuryCardiac: tachycardiaLungs: tachypneaNeuro: Exam: alert, oriented x3, normal speechAbdomen: gravid, soft, no abnormal tendernessLower extremities: Edema: trace Bryant's sign: negative Calf tenderness: negative ResultFindings/Data:Microbiology: Date/Time Procedure - Status Source Growth 09/26 1536 Urine Culture - ORD URINE 09/26 1459 MRSA Screen - ORD NASAL Diagnosis, Assessment Plan Diagnosis, Assessment PlanFree Text A P:Patient is a 25 y/o G1 at 27 1/7 weeks who presents for admission to the ICU 2/2to diabetic ketoacidosis. PNC c/b T1DM and previous admission to hospital for DKA during current . DKA-unknown precipitating factor-rose catheter to measure I/Os-Fluids: -IV NS 1L/h x 2 h, then 500 mL/h until 5-8L of NS has been infused -Continue 100mL/hr of NS x 48 hours-Insulin:* Give 20 units insulin IV bolus, then 5-10 units/h by IV infusion* when acidosis resolved (gap is closed) and plasma glucose is <160 mg/dL, reduce insulin infusion to 0.7 - 2 units/h* Return to patient's prior SQ insulin dosing after plasma glucose stable x 12 hours Glucose* when plasma glucose ,250 mg/dL, add 5% dextrose to NSPotassium* measure K+ q 4 hours and replace per protocolBicarb: Labs at Baseline upon admission:'H/H 14.8/46.9K+ 4.7Glu: 248Anion gap: 26.9 Assessment/Impression: diabetic ketoacidosisPlan: admit to inpatient, antiemetics, IVF, surveillance, DVT prophylaxis at 1846 at 1536 RPT #:[id number] OF REPORT HPHistory and physical acukoctqcqf7962-13-33C14:39:00F.PD [id number] for patient hymtQJVUCDKXOUBNMV1508-18-47T70:36 :46 2020-08-05 12:12:00 [id number]:1 [facility] 2:00 [facility] ([facility])OB Antepartum Prog NoteREPORT#:[id number] REPORT STATUS: SignedDATE:08/05/20 TIME: 1212 PATIENT: TASHI MOSQUERA UNIT #: [id number]#: [id number] [address] [birth year] AGE: 25 SEX: F ATTEND: Natalie Corrales [facility] AUTHOR: Mauricio Aguillon MD * ALL edits or amendments must be made on the electronic/computer document * Subjective SubjectiveAdmission EGA: Weeks: 19 Days: 5Patient reports: Patient reports: No vaginal bleeding, No leaking fluid, No contractions, No headache, No blurred vision, No scotomata ObjectiveCardiac: regular rate and rhythmLungs: clear to auscultationNeuro: Exam: alert, oriented x3, normal speechAbdomen: gravid, soft, no abnormal tendernessLower extremities: Edema: noneBaby A: Baby A baseline: presentFindings/data:Laboratory Tests 08/05 08/05 0257 0211 Blood Gas [...] - 393 units/L) 85 Laboratory Tests 08/05 0112 Hematology WBC (6.6 - 12.1 K/mm3) 7.1 [...] % (Auto) (14.3 - 34.3 %) 32.2 Berks % (Auto) (5.1 - 10.4 %) 5.2 Eos % (Auto) (0.1 - 3.0 %) 3.3 H Baso % (Auto) (0.1 - 1.0 %) 0.1 Neut # (Auto) (K/mm3) 4.2 Lymph # (Auto) (K/mm3) 2.3 Berks # (Auto) (K/mm3) 0.4 Eos # (Auto) (K/mm3) 0.23 Baso # (Auto) (K/mm3) 0.0 Laboratory Tests 08/05 0112 Toxicology Acetone, Qual (NEGATIVE) NEGATIVE Laboratory Tests 08/05 0128 Urines Urine Color (YELLOW) STRAW Urine Appearance (CLEAR) CLEAR Urine pH (5 - 9) 6.0 Ur Specific Oxford (1.001 - 1.035) 1.022 Urine Protein (NEG) [...] Pulse Resp B/P B/P Pulse O2 O2 Flow FiO2 Mean Ox Delivery Rate 08/05 1154 [...] 08/05 08/05 08/05 1104 0746 0257 0211 0128Blood Gas Oximetry (% sat) 97.7 ABG pH [...] On Oxygen Arterial Venous FiO2 (%) 21.0 21.0Chemistry POC Glucose (65 - 110 mg/dL) 91 162 HUrines Urine Color (YELLOW) STRAW Urine Appearance (CLEAR) CLEAR Urine pH (5 - 9) 6.0 Ur Specific Oxford (1.001 - 1.035) 1.022 Urine Protein (NEG) NEGATIVE Urine Glucose (UA) (NEG) 3+ H Urine Ketones (NEG) NEGATIVE Urine Blood (NEG) NEG Urine Nitrite (NEG) NEG Urine Bilirubin (NEG) NEGATIVE Urine Urobilinogen (NEG mg/dL) NEGATIVE Ur Leukocyte Esterase (NEG) 2+ H Urine RBC (NONE SEEN #/hpf) 3-5 H Urine WBC (NONE SEEN #/hpf) 3-5 H Ur Epithelial Cells (RARE - FEW RARE#/HPF) Urine Bacteria (RARE - FEW /HPF) FEW [...] % (Auto) (14.3 - 34.3 %) 32.2 Berks % (Auto) (5.1 - 10.4 %) 5.2 Eos % (Auto) (0.1 - 3.0 %) 3.3 H Baso % (Auto) (0.1 - 1.0 %) 0.1 Neut # (Auto) (K/mm3) 4.2 Lymph # (Auto) (K/mm3) 2.3 Berks # (Auto) (K/mm3) 0.4 Eos # (Auto) (K/mm3) 0.23 Baso # (Auto) (K/mm3) 0.0 Toxicology Acetone, Qual (NEGATIVE) NEGATIVE Microbiology: Date/Time Procedure - Status Source Growth 08/05 449 MRSA Screen - CAN NASAL Cancelled: Cancelled via OE: KEYED INCORRECTLY Recent Impressions:ULTRASOUND - US PREG UT TRANSVAGINAL 08/05 344 Report Impression - Status: SIGNED Entered: 08/05/2020425 IMPRESSION: Single live intrauterine at 19 weeks 5 days. Trace fluid in the endocervical canal. The structures are not individually characterized on thisexamination, but no abnormality is appreciated. Small free pelvic fluid. Low-lying posterior grade 1 placenta with tip located 2.7 cm from theinternal cervical os. GENERAL OBSERVATIONS REGARDING ULTRASOUND: 1. A normal or negative sonogram report should not delay furtherinvestigation of a clinically suspicious or abnormal . 2. position or overlap of parts may prevent completeevaluation of the fetus. 3. Congenital and developmental abnormalities are not alwayssonographically visualized. 4. Repeat sonograms may be necessary depending on the clinicaldevelopment during . SL: TPAINTER-H . Impression By: Samanta Jaffe MDULTRASOUND - US LTD 08/05 344 Report Impression - Status: SIGNED Entered: 08/05/2020425 IMPRESSION: Single live intrauterine at 19 weeks 5 days. Trace fluid in the endocervical canal. The structures are not individually characterized on thisexamination, but no abnormality is appreciated. Small free pelvic fluid. Low-lying posterior grade 1 placenta with tip located 2.7 cm from theinternal cervical os. GENERAL OBSERVATIONS REGARDING ULTRASOUND: 1. A normal or negative sonogram report should not delay furtherinvestigation of a clinically suspicious or abnormal . 2. position or overlap of parts may prevent completeevaluation of the fetus. 3. Congenital and developmental abnormalities are not alwayssonographically visualized. 4. Repeat sonograms may be necessary depending on the clinicaldevelopment during . SL: TPAINTER-H . Impression By: Samanta Jaffe MD Diagnosis, Assessment Plan Diagnosis, Assessment PlanFree Text A P:Single live intrauterine at 19 weeks 5 days. Trace fluid in the endocervical canal. The structures are not individually characterized on thisexamination, but no abnormality is appreciated. Small free pelvic fluid. Low-lying posterior grade 1 placenta with tip located 2.7 cm from theinternal cervical os. diabetes controlled d/c home f/u Dr Corrales on friday at 1213 RPT #:[id number] OF REPORT PRProgress [id number]:12:00F.ERHE27386 [id number] for patient guyhPTCCMZXSEPPRVY0996-71-62C17:14 :28 2020-08-05 05:15:00 [id number]:1 [facility] 5:00 [facility] ([facility])OB Admission / H PREPORT#:[id number] REPORT STATUS: SignedDATE:08/05/20 TIME: 05 PATIENT: TASHI MOSQUERA UNIT #: [id number]#: [id number] [address] [birth year] AGE: 25 SEX: F ATTEND: Natalie Corrales MDADM AUTHOR: Filomena Wesley MD * ALL edits or amendments must be made on the electronic/computer document * OB HistoryChief complaint: elevated blood sugarHPI:25yo G1 at 19 5/7 wks with known Class B DM [facility] gluc of 417 at home. States she at "a lot" of sugar free dark chocolate. Pt has been diabetic and on insulin for last 2 years but since becoming has had increased difficulty controling sugars. Pt states she had a headache associated with the gluc elevation. Pt was seen in ED where gluc was in the 300s, was given fluids, insulin and potassium and was transfered to [facility] for evaluation. history: : 1 Living children: 0Current : Best EDC: 12/25/20 Admission EGA (weeks) 19 Admission EGA (days) 5Conditions of : diabetes - pre-existingPast medical history: diabetes mellitusPast surgical history: denies PSHSocial history: no alcohol use, no tobacco use, no drug useFamily historyMOTHER (Diabetes mellitus). Medications:Home Medications:INSULIN ASPART (NovoLOG) 1 UNITS SUBQ ASDIR Novolin 34u am and 34u pmNovolog SSI for gluc >150 and based on carb counting (1u/10gm carbs) AllergiesCoded Allergies:No Known Allergies (08/05/20) Review of SystemsAll systems rev neg: except as marked Objective GeneralVS:Last Documented: Result Date Time Pulse Ox 99 08/05 458 B/P 109/72 08/05 458 B/P Mean 84.7 08/05 458 Temp 98.4 08/05 458 Pulse 92 08/05 458 Resp 18 08/05 458 O2 Delivery Room air 08/05 005 Vital Signs Date Temp Pulse Resp B/P B/P Mean Pulse Ox FiO2 08/05 97.6-98.4 90-92 18 107-121/66-81 80-94 99-100 Patient Weight Weight (lb): Weight (oz): Weight (kg): 72.000 Physical ExamCardiac: regular rate and rhythmLungs: clear to auscultationNeuro: Exam: alert, oriented x3, normal speechAbdomen: gravid, soft, no abnormal tendernessLower extremities: Edema: noneBaby A: Baby A baseline: present ResultFindings/Data:Laboratory Tests: 08/05 08/05 08/05 08/05 0257 0211 0128 0112Blood Gas Oximetry (% sat) 97.7 ABG pH [...] On Oxygen Arterial Venous FiO2 (%) 21.0 21.0Chemistry Sodium (135 - 145 mEq/L) 133 L [...] 21 Total Alk Phosphatase (46 - 116 48units/L) Total Protein (6.3 - 8.2 gm/dL) 6.1 L Albumin (3.4 - 4.8 gm/dL) 2.7 L Lipase (73 - 393 units/L) 85Hematology WBC (6.6 - 12.1 K/mm3) 7.1 RBC [...] % (Auto) (14.3 - 34.3 %) 32.2 Berks % (Auto) (5.1 - 10.4 %) 5.2 Eos % (Auto) (0.1 - 3.0 %) 3.3 H Baso % (Auto) (0.1 - 1.0 %) 0.1 Neut # (Auto) (K/mm3) 4.2 Lymph # (Auto) (K/mm3) 2.3 Berks # (Auto) (K/mm3) 0.4 Eos # (Auto) (K/mm3) 0.23 Baso # (Auto) (K/mm3) 0.0Toxicology Acetone, Qual (NEGATIVE) NEGATIVEUrines Urine Color (YELLOW) STRAW Urine Appearance (CLEAR) CLEAR Urine pH (5 - 9) 6.0 Ur Specific Oxford (1.001 - 1.035) 1.022 Urine Protein (NEG) [...] CAN NASAL Cancelled: Cancelled via OE: KEYED INCORRECTLY Recent Impressions:ULTRASOUND - US PREG UT TRANSVAGINAL 08/05 344 Report Impression - Status: SIGNED Entered: 08/05/2020425 IMPRESSION: Single live intrauterine at 19 weeks 5 days. Trace fluid in the endocervical canal. The structures are not individually characterized on thisexamination, but no abnormality is appreciated. Small free pelvic fluid. Low-lying posterior grade 1 placenta with tip located 2.7 cm from theinternal cervical os. GENERAL OBSERVATIONS REGARDING ULTRASOUND: 1. A normal or negative sonogram report should not delay furtherinvestigation of a clinically suspicious or abnormal . 2. position or overlap of parts may prevent completeevaluation of the fetus. 3. Congenital and developmental abnormalities are not alwayssonographically visualized. 4. Repeat sonograms may be necessary depending on the clinicaldevelopment during . SL: TPAINTER-H . Impression By: [email or web address] - Arpit Jaffe MDULTIONOUND - US LTD 08/05 344 Report Impression - Status: SIGNED Entered: 08/05/2020 0426 IMPRESSION: Single live intrauterine at 19 weeks 5 days. Trace fluid in the endocervical canal. The structures are not individually characterized on thisexamination, but no abnormality is appreciated. Small free pelvic fluid. Low-lying posterior grade 1 placenta with tip located 2.7 cm from theinternal cervical os. GENERAL OBSERVATIONS REGARDING ULTRASOUND: 1. A normal or negative sonogram report should not delay furtherinvestigation of a clinically suspicious or abnormal . 2. position or overlap of parts may prevent completeevaluation of the fetus. 3. Congenital and developmental abnormalities are not alwayssonographically visualized. 4. Repeat sonograms may be necessary depending on the clinicaldevelopment during . SL: TPAINTER-H . Impression By: [email or web address] - Arpit Jaffe MD Diagnosis, Assessment Plan Diagnosis, Assessment PlanFree Text A P:-25yo G1 at 19 5/7 weeks with class b DM with elevation to 417 today. No evidence of DKA based on no urine or serum ketones and ABG normal (VBG was incorrectly drawn). FSBS indicate further decline of gluc. -Will admit per recommendation of Dr Aguillon to further observe and control gluc. Home insulin ordered as per her typical regimen and SSI ordered to cover >150 - status- Normal u/s with low lying placenta at 0526 RPT #:[id number] OF REPORT HPHistory and physical slmbzdzhvng8073-52-93H26:15:00F.PD [id number] for patient octzOMIWEZEUHRHEZL9476-45-22B70:26 :23 2020-08-05 03:10:00 [id number]:1 [facility] 0:00 [facility] ([facility])EMERGENCY PROVIDER REPORTREPORT#:[id number] REPORT STATUS: SignedDATE:08/05/20 TIME: 309 PATIENT: TASHI MOSQUERA UNIT #: [id number]#: [id number] ROOM/BED:AGE: 25 SEX: F PCP PHYS: No Primary or Family PhysicianSERVICE AUTHOR: Shira Arredondo MD * ALL edits or amendments must be made on the electronic/computer document * HPI-General Illness Free Text HPI NotesFree Text HPI Vgthp52-xwfv-ixp female at 19 weeks 5 days gestational age with a history of type 1 diabetes transferred from freestanding emergency room for evaluation of hyperglycemia. She was found to have an initial blood glucose level of 367. She received 2 L of NS and 20 mEq of oral potassium prior to transfer. Patient states that she noticed that her blood sugar levels have been fluctuating to elevated levels over the past 1 week despite her prescribed insulin use. Patient has been taking her basal Novolin insulin 30 units every morning and q. afternoon as per her normal routine. Patient also does sliding scale NovoLog insulin with meals. Patient last use Novolin at 1500 yesterday and NovoLog 12 units at 2000 yesterday. Patient denies fever, dysuria, cough, shortness of breath, nausea, vomiting, diarrhea. Patient states that in route to our emergency room on the ambulance, she developed mild lower abdominal aching pain/ GeneralInitial Greet Date/Time 08/05/2055 PresentationChief Complaint __ (Hyperglycemia) Review of Systems ROS StatementsAll systems rev neg except as marked. Review of SystemsConstitutionalDenies: Fatigue, Fever, Weakness - generalized. RespiratoryDenies: Cough, non-productive, Cough, productive, Shortness of breath. CardiovascularDenies: Chest pain. GIReports: Abdominal pain. Denies: Constipation, Diarrhea, Nausea, Vomiting. FemaleReports: Pelvic pain, . Denies: Dysuria, Flank pain, Urinary frequency,Urinary urgency, Vaginal bleeding - abnl, Vaginal discharge. MusculoskeletalDenies: Back pain, Extremity pain, Extremity swelling. SkinDenies: Itching, Rash. NeurologicDenies: Confusion, Dizziness, Focal weakness, Generalized weakness, Headache, Lightheaded, Numbness, Problem walking. PsychiatricDenies: Change mental status, Confusion. Past Medical History - AdultStated Complaint 20WEEKS WITH HIGH BLOOD SUGARAllergiesCoded Allergies:No Known Allergies (08/05/20) Home MedicationsReported MedicationsINSULIN ASPART (NovoLOG) 1 UNITS SUBQ ASDIR Physical Exam Vital SignsVital SignsFirst Documented: Result Date Time Pulse Ox 100 [...] 56 Review of Vital Signs Reviewed Physical ExamGeneral/Const General/Const Awake, Alert, No acute distress, Well appearing, Well developed, Well hydrated, Well nourished, Cooperative, Not toxic appearingMS Head Head Atraumatic, NormocephalicResp/Chest Respiratory/Chest Atraumatic, Breath sounds NL, Breath sounds = bilat, No respiratory distress, No rales, No rhonchi, No wheezing, No retractionsCardiovascular Cardiovascular Heart rate NL, Regular rhythm, Heart sounds NL, No gallop, No murmursAbdomen/GI Abdomen/GI Atraumatic, Soft, Non-tender, McBurney's non-tender, No guarding, BS normoactive, gravid abdomen with fundal height at umbilicusMS Back Back Atraumatic, Inspection NL, No CVA tendernessSkin Skin Atraumatic, Color NL, No rash, Warm, Dry, IntactNeurologic Neurologic Oriented X3, Speech NL, CN II - XII intact, Gait NLPsychiatric Psychiatric Affect NL, Mood NL Interpretation Diagnostics Lab Results InterpretationResultsLaboratory Tests 08/05/20 0112:[Embedded Image Not Available]Laboratory Tests: 08/05 08/05 08/05 08/05 0257 0211 0128 0112Blood Gas Oximetry (% sat) 97.7 ABG pH [...] On Oxygen Arterial Venous FiO2 (%) 21.0 21.0Chemistry Sodium (135 - 145 mEq/L) 133 L [...] 21 Total Alk Phosphatase (46 - 116 48units/L) Total Protein (6.3 - 8.2 gm/dL) 6.1 L Albumin (3.4 - 4.8 gm/dL) 2.7 L Lipase (73 - 393 units/L) 85Hematology WBC (6.6 - 12.1 K/mm3) 7.1 RBC [...] % (Auto) (14.3 - 34.3 %) 32.2 Berks % (Auto) (5.1 - 10.4 %) 5.2 Eos % (Auto) (0.1 - 3.0 %) 3.3 H Baso % (Auto) (0.1 - 1.0 %) 0.1 Neut # (Auto) (K/mm3) 4.2 Lymph # (Auto) (K/mm3) 2.3 Berks # (Auto) (K/mm3) 0.4 Eos # (Auto) (K/mm3) 0.23 Baso # (Auto) (K/mm3) 0.0Toxicology Acetone, Qual (NEGATIVE) NEGATIVEUrines Urine Color (YELLOW) STRAW Urine Appearance (CLEAR) CLEAR Urine pH (5 - 9) 6.0 Ur Specific Oxford (1.001 - 1.035) 1.022 Urine Protein (NEG) [...] FEW Urine Mucus (NONE SEEN) RARE Lab StatementLaboratory studies reviewed and considered in the medical decision-making. Re-Evaluation MDM Free Text MDM NotesFree Text MDM NotesFetal heart tones 130's. Patient awaiting US at time of admission. Re-Evaluation/Progress #1Text/Dict NoteAbd pain resolved. Appears comfortable lying in bed.Time of Re-Eval 0325Re-Eval Status Improved ED CourseMedication(s) OrderedMedication(s) Ordered:Central Nervous System Agents Sig/Snehal Start time Last Medication Dose Route Stop Time Status Admin Acetaminophen 650 MG Q4H PRN PRN 08/05 0330 AC PO 08/06 0323 Electrolytic, Caloric, And Varinder Sig/Snehal Start time Last Medication Dose Route Stop Time Status Admin Potassium Chloride 20 MEQ X1ED STA 08/05 0159 DC 08/05 PO 08/05 200 0208 Sodium Chloride 1,000 ML X1ED STA 08/05 0159 DC 08/05 IV 08/05 200 0207 Gastrointestinal Drugs Sig/Snehal Start time Last Medication Dose Route Stop Time Status Admin Ondansetron HCl 4 MG Q6H PRN PRN 08/05 0330 AC IV 08/06 032 Patient Discharge Departure Vital Signs/ConditionVital SignsFirst Documented: Result Date Time Pulse Ox 100 [...] signs available at the time of this entry have been reviewed. Condition Stable, Improved Clinical ImpressionClinical ImpressionPrimary Impression: HyperglycemiaSecondary Impressions: Second trimester pregnancyTime of Impression 320 Disposition DecisionAdmit Admit Physician Name Ntaalie Corrales MD Admit Physician LPN INSTRUCTOR, Tie Puller Physician Request Time 321 Request Date 08/05/20 )( Admission Accepts accepted by Dr. Wesley on behalf of Dr. Corrales )( Accepted Time 321 )( Accepted Date 08/05/20 Call Information agrees with eval, agrees with plan Discharge/Care PlanCounseled Regarding Diagnosis, Lab results, Need for admissionReferralsNo Primary or Family Physician (PCP) Admit NoteI have spoken with the patient and/or caregivers. I have explained the patient'scondition, diagnoses and treatment plan based on the information available to meat this time. I have answered the patient's and/or caregiver's questions and addressed any concerns. The patient and/or caregivers have as good an understanding of the patient's diagnosis, condition and treatment plan as can beexpected at this point. The patient has been stabilized within the capability ofthe emergency department. The patient will be transported for further care and management or will be moved to an observation or inpatient service. I have communicated with the staff or medical practitioner taking over this patient's care. at [id number] #:[id number] OF REPORTStarr County [facility] Hospital department [id number] for patient [id number] :02
[2023-09-29] MEDS ORDERED: ONDANSETRON 4 MG/2 ML VIAL ONE (17:34)
[2023-09-29] MEDS ORDERED: FAMOTIDINE 20 MG/2 ML VIAL IV ONE (17:35)
[2023-09-29] MEDS ORDERED: NA CHLORIDE 0.9% 1,000 ML ONE ×2 (17:35→18:59)
[2023-09-29 17:44] LABS: Absolute Lymphocytes (CBC) 2.4 K/uL (0.7-4.9); Lymphocytes % 27.5 % (15.3-44.8); MCV 89.4 fL (80-100); MPV 7.2 fL (7.6-11.3); Platelets 557 thou/uL (152-406); RBC Red Blood Cell Count 4.69 M/uL (3.86-4.86)
[2023-09-29 18:02] LABS: Albumin 3.6 g/dL (3.4-5.0); Bilirubin Total 0.5 mg/dL (0.2-1.0); Potassium 3.5 mEq/L (3.5-5.1); Protein, Total 8.8 g/dL (6.4-8.2)
[2023-09-29 18:04] LABS: Urine Bacteria None Seen /HPF (<20); Urine Crystals Unidentified Few /HPF (None Seen); Urine RBC <5 /HPF (None Seen)
[2023-09-29] MEDS ORDERED: POTASSIUM 25 MEQ EFFERV TAB ONE (18:58)
[2023-09-29] MEDS ORDERED: INSULIN REGULAR (HUMAN) 100 UNIT/ML ONE (18:59)
[2023-09-29 19:13] LABS: SARS-COV-2 RT PCR NEGATIVE (NEGATIVE)
--- NOTE | 2023-09-29 19:27 | ER ---
Nurse's Notes [facility] Name: Rosalie Parekh Age: 28 yrs Sex: Female : 1995 Arrival Date: 09/29/2023 Time: 16:20 Bed 14 Private MD: Diagnosis: Diabetes mellitus due to underlying condition with hyperglycemia Presentation: 09/29 16:30 Chief complaint: EMS states: "BGL read high. She took 15 units of fast acting insulin 2 mb9 hours prior to our arrival. BGL read at 540. Pt AAOx4 and complains of headache. Pt has history o DKA and believes she's in it now". Coronavirus screen: At this time, the client does not indicate any symptoms associated with coronavirus-19. Ebola Screen: No symptoms or risks identified at this time. Initial Sepsis Screen: Does the patient meet any 2 criteria? No. Patient's initial sepsis screen is negative. Does the patient have a suspected source of infection? No. Patient's initial sepsis screen is negative. Risk Assessment: Do you want to hurt yourself or someone else? Patient reports no desire to harm self or others. Onset of symptoms was September 29, 2023. 16:30 Method Of Arrival: EMS: [facility] mb9 16:30 Acuity: TANYA 2 mb9 Triage Assessment: 16:35 General: Appears uncomfortable, Behavior is calm, cooperative, appropriate for age. mb9 Pain: Complains of pain in head Pain does not radiate. Pain currently is 9 out of 10 on a pain scale. Quality of pain is described as sharp, shooting. EENT: No signs and/or symptoms were reported regarding the EENT system. Neuro: Ramon Agitation-Sedation Scale (RASS): 0 - Alert and Calm Level of Consciousness is awake, alert, obeys commands, Oriented to person, place, time, situation, Appropriate for age. Cardiovascular: Patient's skin is warm and dry. Respiratory: Airway is patent Respiratory effort is even, unlabored, Respiratory pattern is regular, symmetrical. GI: Reports nausea, vomiting. : No signs and/or symptoms were reported regarding the genitourinary system. Derm: Skin is pink, warm \\T\\ dry. Musculoskeletal: Range of motion: intact in all extremities. Historical: - Allergies: 16:34 No Known Allergies; mb9 - Home Meds: 16:34 Novolog subcutaneous Sub-Q [Active]; mb9 - PMHx: 16:34 Anxiety; diabetes mellitus; mb9 - PSHx: 16:34 section; mb9 - Immunization history:: Adult Immunizations up to date. - Social history:: Smoking status: Reported history of juuling and/or vaping. Screenin:29 [facility] ED Fall Risk Assessment (Adult) History of falling in the last 3 months, tm6 including since admission No falls in past 3 months (0 pts). Abuse screen: Denies threats or abuse. Denies injuries from another. Nutritional screening: No deficits noted. Tuberculosis screening: No symptoms or risk factors identified. Assessment: 16:36 Reassessment: BGL 458, ERP notified. mb9 17:29 General: Appears in no apparent distress. Behavior is calm, cooperative. Pain: Denies tm6 pain. Neuro: Level of Consciousness is awake, alert, obeys commands, Oriented to person, place, time, situation. Cardiovascular: Capillary refill < 3 seconds Patient's skin is warm and dry. Respiratory: Airway is patent Respiratory effort is even, unlabored, Respiratory pattern is regular, symmetrical. GI: Abdomen is flat, non-distended. : No signs and/or symptoms were reported regarding the genitourinary system. EENT: No signs and/or symptoms were reported regarding the EENT system. Derm: No signs and/or symptoms reported regarding the dermatologic system. Musculoskeletal: No signs and/or symptoms reported regarding the musculoskeletal system. 18:05 Reassessment: Patient appears in no apparent distress at this time. No changes from tm6 previously documented assessment. 18:40 Reassessment: Patient appears in no apparent distress at this time. No changes from tm6 previously documented assessment. Patient and/or family updated on plan of care and expected duration. Pain level reassessed. Vital Signs: 16:30 BP 105 / 82; Pulse 127; Resp 18; Temp 97.6; Pulse Ox 98% on R/A; Weight 72.57 kg; mb9 Height 5 ft. 2 in. ; 17:31 BP 103 / 74; Pulse 105; Resp 17; Pulse Ox 99% on R/A; Pain 0/10; tm6 18:05 BP 110 / 84; Pulse 96; Pulse Ox 100% ; tm6 18:39 BP 113 / 72; Pulse 96; Pulse Ox 99% on R/A; tm6 19:26 BP 118 / 82; Pulse 95; Resp 18 S; Pulse Ox 100% on R/A; as6 16:30 Body Mass Index 29.26 (72.57 kg, 157.48 cm) mb9 17:31 Pain Scale: Adult tm6 ED Course: 16:22 Patient arrived in ED. mr 16:23 Ralph Alberts PA is PHCP. cp 16:23 Fadi Alvarenga MD is Attending Physician. cp 16:30 Arm band placed on. mb9 16:34 Triage completed. mb9 17:15 Bhumi Colvin, RN is Primary Nurse. tm6 17:28 Inserted saline lock: 20 gauge in right wrist, using aseptic technique. Blood collected.ld1 17:28 CBC with Diff Sent. ld1 17:28 CMP Sent. ld1 17:29 Patient has correct armband on for positive identification. Placed in gown. Bed in low tm6 position. Call light in reach. Side rails up X2. Provided Education on: on need for fluids. Client placed on continuous cardiac and pulse oximetry monitoring. NIBP monitoring applied. Door closed. Warm blanket given. 17:29 Lipase Sent. ld1 17:29 Urine Microscopic Only Sent. ld1 17:29 PREGU Sent. ld1 17:29 No provider procedures requiring assistance completed. tm6 19:31 IV discontinued, intact, bleeding controlled, No redness/swelling at site. Pressure as6 dressing applied. Administered Medications: 17:35 Drug: NS 0.9% IV 1000 ml IV at 1 bolus Per protocol; 1000 mL bolus Route: IV; Rate: 1 ld1 bolus; Site: right wrist; 19:32 Follow up: Response: No adverse reaction; IV Status: Completed infusion; IV Intake: as6 1000ml 17:35 Drug: Famotidine IVP 20 mg IVP once; dilute with 10 mL 0.9% NaCl; give over 2 minutes ld1 Route: IVP; Site: right wrist; 19:32 Follow up: Response: No adverse reaction as6 17:35 Drug: Ondansetron IVP 4 mg IVP once; over 2 minutes Route: IVP; Site: right wrist; ld1 19:32 Follow up: Response: No adverse reaction as6 17:56 Drug: NS 0.9% IV 1000 ml IV at 1 bolus Per protocol; 1000 mL bolus Route: IV; Rate: 1 tm6 bolus; Site: right antecubital; 18:22 Follow up: Response: No adverse reaction; IV Intake: 1000ml tm6 19:32 Follow up: Response: No adverse reaction; IV Status: Completed infusion; IV Intake: as6 1000ml 18:55 Not Given (Physician Discretion): insulin regular human10 units Sub-Q once cp 18:56 Drug: NS 0.9% IV 1000 ml IV at 1 bolus Per protocol; 1000 mL bolus Route: IV; Rate: 1 tm6 bolus; Site: right wrist; 19:31 Follow up: Response: No adverse reaction; IV Status: Completed infusion; IV Intake: as6 1000ml 18:56 Drug: Potassium PO Effervescent Tablet 25 mEq PO once; dissolve in 4 ounces of water or tm6 juice Route: PO; 19:31 Follow up: Response: No adverse reaction as6 Medication: 17:29 VIS not applicable for this client. tm6 Intake: 18:22 IV: 1000ml; Total: 1000ml. tm6 19:31 IV: 1000ml; Total: 2000ml. as6 19:32 IV: 1000ml; Total: 3000ml. as6 19:32 IV: 1000ml; Total: 4000ml. as6 Outcome: 19:26 Discharge ordered by MD. cp 19:31 Discharged to home ambulatory, as6 19:31 Condition: stable 19:31 Discharge instructions given to patient, Instructed on discharge instructions, follow up and referral plans. Demonstrated understanding of instructions, follow-up care, 19:33 Patient left the ED. as6 Signatures: Soco Hutton, Reg Reg mr Ralph Alberts PA PA cp Nneka Johnston RN RN ld1 Armin Ortega RN RN as6 Soco Clifton, RN RN mb9 Bhumi Colvin RN RN tm6 Corrections: (The following items were deleted from the chart) 16:34 16:30 Pulse 127bpm; Resp 18bpm; Pulse Ox 98% RA; Temp 97.6F; 72.57 kg; Height 5 ft. 2 mb9 in.; BMI: 29.2; mb9
--- NOTE | 2023-09-29 19:27 | EDPHYS ---
Physician Documentation [facility] Name: Rosalie Parekh Age: 28 yrs Sex: Female : 1995 Arrival Date: 09/29/2023 Time: 16:20 Bed 14 Private MD: ED Physician Fadi Alvarenga HPI: 09/29 16:45 This 28 yrs old Female presents to ER via EMS with complaints of High Blood Sugar. cp 16:45 The patient or guardian reports hyperglycemia, that was potentially precipitated by no cp particular event. Onset: The symptoms/episode began/occurred today. Associated signs and symptoms: Pertinent negatives: vomiting, fever, diarrhea, cough. Current symptoms: In the emergency department the patient's symptoms have improved, took 15 units rapid acting insulin prior to arrival. Historical: - Allergies: 16:34 No Known Allergies; mb9 - Home Meds: 16:34 Novolog subcutaneous Sub-Q [Active]; mb9 - PMHx: 16:34 Anxiety; diabetes mellitus; mb9 - PSHx: 16:34 section; mb9 - Immunization history:: Adult Immunizations up to date. - Social history:: Smoking status: Reported history of juuling and/or vaping. ROS: 16:50 Constitutional: Negative for body aches, chills, fever, poor PO intake, cp 16:50 Eyes: Negative for injury, pain, redness, and discharge, cp 16:50 ENT: Negative for drainage from ear(s), ear pain, sore throat, difficulty swallowing, difficulty handling secretions, 16:50 Cardiovascular: Negative for chest pain, 16:50 Respiratory: Negative for cough, shortness of breath, wheezing, 16:50 Abdomen/GI: Negative for abdominal pain, vomiting, diarrhea, constipation, 16:50 : Positive for urinary frequency, Negative for burning with urination, foul smelling urine, 16:50 Neuro: Negative for altered mental status, dizziness, headache, weakness, 16:50 All other systems are negative, Exam: 16:55 Constitutional: The patient appears in no acute distress, alert, awake, non-toxic, well cp developed, well nourished, 16:55 Head/Face: Normocephalic, atraumatic. cp 16:55 Eyes: Periorbital structures: appear normal, Conjunctiva: normal, no exudate, no injection, Sclera: no appreciated abnormality, Lids and lashes: appear normal, bilaterally, 16:55 ENT: External ear(s): are unremarkable, Nose: is normal, Mouth: Lips: moist, Oral mucosa: pink and intact, moist, Posterior pharynx: Airway: no evidence of obstruction, patent, erythema, is not appreciated, exudate, is not appreciated, 16:55 Neck: ROM/movement: is normal, is supple, without pain, no range of motions limitations, no meningismus, 16:55 Chest/axilla: Inspection: normal, 16:55 Cardiovascular: Rate: tachycardic, Rhythm: regular, 16:55 Respiratory: the patient does not display signs of respiratory distress, Respirations: normal, no use of accessory muscles, no retractions, labored breathing, is not present, Breath sounds: are clear throughout, no decreased breath sounds, no stridor, no wheezing, 16:55 Abdomen/GI: Inspection: abdomen appears normal, Palpation: abdomen is soft and non-tender, in all quadrants, 16:55 Back: pain, is absent, ROM is normal, 16:55 Neuro: Orientation: to person, place \T\ time. Mentation: is normal, Motor: moves all fours, strength is normal, Sensation: is normal, Vital Signs: 16:30 BP 105 / 82; Pulse 127; Resp 18; Temp 97.6; Pulse Ox 98% on R/A; Weight 72.57 kg; mb9 Height 5 ft. 2 in. ; 17:31 BP 103 / 74; Pulse 105; Resp 17; Pulse Ox 99% on R/A; Pain 0/10; tm6 18:05 BP 110 / 84; Pulse 96; Pulse Ox 100% ; tm6 18:39 BP 113 / 72; Pulse 96; Pulse Ox 99% on R/A; tm6 19:26 BP 118 / 82; Pulse 95; Resp 18 S; Pulse Ox 100% on R/A; as6 16:30 Body Mass Index 29.26 (72.57 kg, 157.48 cm) mb9 17:31 Pain Scale: Adult tm6 MDM: 16:38 Patient medically screened. cp 19:25 Data reviewed: vital signs, nurses notes, lab test result(s). cp 19:25 Differential diagnosis: DKA, hyperglycemia, sepsis. I considered the following cp discharge prescriptions or medication management in the emergency department Medications were administered in the Emergency Department. See MAR. Counseling: I had a detailed discussion with the patient and/or guardian regarding the historical points, exam findings, and any diagnostic results supporting the discharge/admit diagnosis, lab results, to return to the emergency department if symptoms worsen or persist or if there are any questions or concerns that arise at home. Response to treatment: the patient's symptoms have markedly improved after treatment, and as a result, I will discharge patient. 09/29 16:37 Order name: Urine Microscopic Only; Complete Time: 18:34 09/29 16:37 Order name: PREGU; Complete Time: 18:34 09/29 16:37 Order name: CBC with Diff; Complete Time: 18:34 09/29 18:35 Interpretation: Normal except: PLT 557; MPV 7.2. 09/29 16:37 Order name: CMP; Complete Time: 18:34 09/29 18:56 Interpretation: Normal except: NA 128; CL 96; CO2 20; ANION GAP 15.5; GLUC 332; BUN 21; cp CRE 1.18; GFR 64; AST 7; ALK 184; TP 8.8; GLOB 5.2; A/G 0.7. 09/29 16:37 Order name: Lipase; Complete Time: 18:34 09/29 16:49 Order name: Glucose, Ancillary Testing; Complete Time: 17:22 EDMS 09/29 17:22 Interpretation: Reviewed. 09/29 17:46 Order name: COVID-19/FLU A+B/RSV; Complete Time: 19:25 09/29 19:03 Order name: Glucose, Ancillary Testing; Complete Time: 19:25 EDNV 09/29 16:37 Order name: IV Saline Lock; Complete Time: 17:28 09/29 16:37 Order name: Labs collected and sent; Complete Time: 17:28 09/29 16:38 Order name: Accucheck Blood Glucose; Complete Time: 16:43 cp Administered Medications: 17:35 Drug: NS 0.9% IV 1000 ml IV at 1 bolus Per protocol; 1000 mL bolus Route: IV; Rate: 1 ld1 bolus; Site: right wrist; 19:32 Follow up: Response: No adverse reaction; IV Status: Completed infusion; IV Intake: as6 1000ml 17:35 Drug: Famotidine IVP 20 mg IVP once; dilute with 10 mL 0.9% NaCl; give over 2 minutes ld1 Route: IVP; Site: right wrist; 19:32 Follow up: Response: No adverse reaction as6 17:35 Drug: Ondansetron IVP 4 mg IVP once; over 2 minutes Route: IVP; Site: right wrist; ld1 19:32 Follow up: Response: No adverse reaction as6 17:56 Drug: NS 0.9% IV 1000 ml IV at 1 bolus Per protocol; 1000 mL bolus Route: IV; Rate: 1 tm6 bolus; Site: right antecubital; 18:22 Follow up: Response: No adverse reaction; IV Intake: 1000ml tm6 19:32 Follow up: Response: No adverse reaction; IV Status: Completed infusion; IV Intake: as6 1000ml 18:55 Not Given (Physician Discretion): insulin regular human10 units Sub-Q once cp 18:56 Drug: NS 0.9% IV 1000 ml IV at 1 bolus Per protocol; 1000 mL bolus Route: IV; Rate: 1 tm6 bolus; Site: right wrist; 19:31 Follow up: Response: No adverse reaction; IV Status: Completed infusion; IV Intake: as6 1000ml 18:56 Drug: Potassium PO Effervescent Tablet 25 mEq PO once; dissolve in 4 ounces of water or tm6 juice Route: PO; 19:31 Follow up: Response: No adverse reaction as6 Disposition: 21:58 Co-signature as Attending Physician, Fadi Alvarenga MD I reviewed the patient's care rt provided by the Advanced Practice Provider and agree with the diagnosis and treatment plan. Disposition Summary: 09/29/23 19:26 Discharge Ordered Notes: Location: Home cp Problem: an acute exacerbation cp Symptoms: have improved cp Condition: Stable cp Diagnosis - Diabetes mellitus due to underlying condition with hyperglycemia cp Followup: cp - With: Private Physician - When: 2 - 3 days - Reason: Recheck today's complaints Discharge Instructions: - Discharge Summary Sheet cp - Hyperglycemia cp - Daily Diabetes Mellitus Record cp - Blood Glucose Monitoring, Adult cp - Diabetes Mellitus and Nutrition, Adult cp Forms: - Medication Reconciliation Form cp - Thank You Letter cp - Antibiotic Education cp - Prescription Opioid Use cp - Patient Portal Instructions cp - Leadership Thank You Letter cp Addendum: 09/30/2023 20:23 Co-signature as Attending Physician, Fadi Alvarenga MD I reviewed the patient's care r t provided by the Advanced Practice Provider and agree with the diagnosis and treatment plan. Signatures: Dispatcher [employer] EDMS Ralph Alberts PA PA cp Nneka Johnston, RN RN ld1 Elodia, Soco Roberts, RN RN mb9 Fadi Alvarenga MD MD rt Bhumi Colvin RN RN tm6 Armin Ortega RN as6 Corrections: (The following items were deleted from the chart) 09/29 18:36 18:36 Urinalysis w/ reflexes ordered. EDMS EDMS 19:33 16:38 BETA HYDROXYBUTYRATE+C.LAB.BRZ ordered. cp as6
[2023-09-29 19:58] VITALS: TEMP 97.6
[2023-09-29 20:05] VITALS: BP 118/82; O2SAT 100
== END 2023-09-29 19:33 | disposition home or self-care (01) ==
LOC: ER 16:20
DX: E11.65 Type 2 diabetes mellitus with hyperglycemia (principal)
CPT/HCPCS: 96361; 85025; 36415; 81025; 82947 ×2; 81015; 83690; 80053; 0241U; 96375; 96374; 99284; J1815; J2405; J7030 ×2

== ENCOUNTER 2023-10-14 13:21 | Inpatient (IN) | payer OTHER, SELFPAY ==
[2023-10-14 14:51] LABS: Absolute Lymphocytes (CBC) 1.3 K/uL (0.7-4.9); Hematocrit 41.1 % (36.0-45.0); Lymphocytes % 20.4 % (15.3-44.8); MCV 92.4 fL (80-100); MPV 7.1 fL (7.6-11.3); Platelets 340 thou/uL (152-406); RBC Red Blood Cell Count 4.45 M/uL (3.86-4.86)
[2023-10-14] MEDS ORDERED: NA CHLORIDE 0.9% 1,000 ML ONE ×2 (14:52→15:35)
[2023-10-14 14:53] LABS: Specific Gravity 1.023 (1.005-1.030); Urine Bacteria None Seen /HPF (<20); Urine Bilirubin NEGATIVE (Negative); Urine Blood Negative (Negative); Urine Clarity Clear (Clear); Urine Color Colorless (Yellow); Urine Crystals Unidentified Few /HPF (None Seen); Urine Glucose 4+ (Over) (Negative); Urine Mucus Slight /HPF (None Seen); Urine Protein TRACE (Negative); Urine RBC <5 /HPF (None Seen); Urine Urobilinogen Normal (Normal)
[2023-10-14 15:07] LABS: ALT/SGPT 18 U/L (13-56); Albumin 3.1 g/dL (3.4-5.0); Alkaline Phosphatase 152 U/L (45-117); BUN Blood Urea Nitrogen 12 mg/dL (7-18); Bicarbonate 18 mEq/L (21-32); Bilirubin Total 0.3 mg/dL (0.2-1.0); Glomerular Filtration Rate 65 ml/min (=/>90); Glucose Level 334 mg/dL (74-106); Potassium 3.7 mEq/L (3.5-5.1); Protein, Total 7.3 g/dL (6.4-8.2); Sodium Level 135 mEq/L (136-145)
[2023-10-14 15:09] LABS: AST/SGOT < 4 U/L (15-37)
--- NOTE | 2023-10-14 15:19 | EDPHYS ---
Physician Documentation [facility] Name: Rosalie Parekh Age: 28 yrs Sex: Female : 1995 Arrival Date: 10/14/2023 Time: 13:21 Bed 19 Private MD: ED Physician Isai Narayanan HPI: 10/14 13:30 This 28 yrs old Female presents to ER via Unassigned with complaints of High Blood kb Sugar, Vomiting. 13:30 Patient is a 28-year-old female with type 1 diabetes who presents for elevated blood kb glucose levels for the last 3 days with nausea and vomiting. Denies illness, fever, abdominal pain, cough, congestion.. 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 - Social history:: Smoking status: Reported history of juuling and/or vaping. ROS: 13:30 Constitutional: Negative for fever, chills, and weight loss, kb 13:30 Abdomen/GI: Positive for nausea and vomiting, Negative for abdominal pain, 13:30 All other systems are negative, Exam: 13:30 Constitutional: This is a well developed, well nourished patient who is awake, alert, kb and in no acute distress. Head/Face: Normocephalic, atraumatic. ENT: Moist Mucous membranes Cardiovascular: Regular rate Respiratory: Respirations even and unlabored. No increased work of breathing. Talking in full sentences Abdomen/GI: Soft, non-tender. No distention Skin: Warm, dry with normal turgor. Normal color. MS/ Extremity: Pulses equal, no cyanosis. Neurovascular intact. Full, normal range of motion. Neuro: Awake and alert, GCS 15, oriented to person, place, time, and situation. Moves all extremities. Normal gait. Vital Signs: 13:50 BP 107 / 84; Pulse 114; Resp 20; Temp 97.9(TE); Pulse Ox 100% ; Weight 72.57 kg; Height cm10 5 ft. 2 in. ; Pain 0/10; 15:29 BP 121 / 94; Pulse 115; ll1 15:45 BP 107 / 73; Pulse 100; Resp 19; ll1 13:50 Body Mass Index 29.26 (72.57 kg, 157.48 cm) cm10 13:50 Pain Scale: Adult cm10 MDM: 13:26 Patient medically screened. kb 13:30 Differential diagnosis: DKA, hyperglycemia. Data reviewed: vital signs, nurses notes. kb 15:15 Consideration of Admission/Observation Patient was admitted/placed on observation. kb Escalation of care including admission/observation considered. Management of patient was discussed with the following: Hospitalist: Hospitalist team, pt accepted for admission under Dr Hernandez. Care significantly affected by the following chronic conditions: Diabetes. Counseling: I had a detailed discussion with the patient and/or guardian regarding the historical points, exam findings, and any diagnostic results supporting the discharge/admit diagnosis, lab results, the need for further work-up and treatment in the hospital. 10/14 13:30 Order name: CBC with Diff; Complete Time: 14:55 kb 10/14 13:30 Order name: CMP; Complete Time: 15:10 kb 10/14 13:30 Order name: Urinalysis w/ reflexes; Complete Time: 14:53 kb 10/14 14:07 Order name: Glucose, Ancillary Testing; Complete Time: 14:08 EDMS 10/14 15:11 Order name: ABG; Complete Time: 15:37 kb 10/14 15:45 Order name: Basic Metabolic Panel EDMS 10/14 15:45 Order name: Basic Metabolic Panel; Complete Time: 19:26 EDMS 10/14 15:45 Order name: Basic Metabolic Panel EDMS 10/14 15:45 Order name: Basic Metabolic Panel EDMS 10/14 15:45 Order name: CBC with Automated Diff EDMS 10/14 15:45 Order name: CBC with Automated Diff EDMS 10/14 15:45 Order name: CBC with Automated Diff EDMS 10/14 15:45 Order name: CBC with Automated Diff EDMS 10/14 15:45 Order name: Magnesium EDMS 10/14 15:45 Order name: Magnesium EDMS 10/14 15:45 Order name: Magnesium EDMS 10/14 15:45 Order name: Magnesium EDMS 10/14 16:11 Order name: Glucose, Ancillary Testing; Complete Time: 16:12 EDMS 10/14 17:04 Order name: Glucose, Ancillary Testing; Complete Time: 17:33 EDMS 10/14 18:04 Order name: Glucose, Ancillary Testing; Complete Time: 19:26 [facility] 10/14 19:08 Order name: Glucose, Ancillary Testing; Complete Time: 19:26 [facility] 10/14 20:12 Order name: Glucose, Ancillary Testing [facility] 10/14 13:30 Order name: IV Start; Complete Time: 14:45 kb 10/14 13:30 Order name: Blood Glucose Level; Complete Time: 14:23 kb Administered Medications: 14:43 Drug: NS 0.9% IV 1000 ml IV at 1000 ml once Route: IV; Rate: 1000 ml; Site: right ll1 antecubital; 15:32 Follow up: Response: No adverse reaction; IV Status: Completed infusion; IV Intake: ll1 950ml 15:32 Drug: NS 0.9% IV 1000 ml IV at 1000 ml once Route: IV; Rate: 1000 ml; Site: right ll1 antecubital; 19:22 Follow up: Response: No adverse reaction; IV Status: Completed infusion; IV Intake: ll1 1000ml 15:50 Drug: Insulin Drip - (Insulin Regular Human IVP 100 units, NS 0.9% IV 100 ml) IV at ll1 calculated rate continuous; Standard concentration 1unit/ml; Dose for DKA is 0.1 units/kg/hr {Co-Signature: angelique ([place] RN).} Route: IV; Rate: calculated rate; Site: right antecubital; 19:22 Follow up: IV Status: Infusion continued upon admission ll1 Disposition Summary: 10/14/23 15:19 Hospitalization Ordered Notes: Hospitalization Status: Inpatient Admission kb Provider: Destin Hernandez Location: Intensive Care Unit kb Condition: Stable kb Problem: new kb Symptoms: are unchanged kb Bed/Room Type: Standard Room Assignment: 1-(10/14/23 18:54) bd Diagnosis - Diabetes mellitus due to underlying condition with ketoacidosis kb Forms: - Medication Reconciliation Form kb - SBAR form kb - Leadership Thank You Letter kb Critical care time excluding procedures: 15:15 Critical care time: Bedside Care: 10 minutes, Consultation: 10 minutes, Family kb Intervention: 10 minutes. Total time: 30 minutes Addendum: 10/17/2023 00:07 Co-signature as Attending Physician, Isai Narayanan MD I reviewed the patient's care r n provided by the Advanced Practice Provider and agree with the diagnosis and treatment plan. Signatures: Dispatcher [employer] Zabrina Kelly, KENO WRITER / RUNNER-C KENO WRITER / RUNNER-Ckb Velvet Cruz Roman, MD MD rn Lewis, Lynsay RN RN ll1 [place] Boo RN RN cm10 [place] RN db Corrections: (The following items were deleted from the chart) 10/14 15:23 15:15 Management of patient was discussed with the following: Hospitalist: Hospitalist debra team. kb 18:54 15:19 debra sears
--- NOTE | 2023-10-14 15:19 | ER ---
Nurse's Notes [facility] Name: Rosalie Parekh Age: 28 yrs Sex: Female : 1995 Arrival Date: 10/14/2023 Time: 13:21 Bed 19 Private MD: Diagnosis: Diabetes mellitus due to underlying condition with ketoacidosis Presentation: 10/14 13:50 Chief complaint: Patient states: Pt c/o blood glucose readings of "high" on her home cm10 meter x 3 days. Pt has taken increased insulin doses without resolution. Pt also c/o nausea, vomiting, heartburn. Coronavirus screen: Vaccine status: Patient reports being unvaccinated. Client denies travel out of the [place] in the last 14 days. At this time, the client does not indicate any symptoms associated with coronavirus-19. Ebola Screen: Patient negative for fever greater than or equal to 101.5 degrees Fahrenheit, and additional compatible Ebola Virus Disease symptoms Patient denies exposure to infectious person. Patient denies travel to an Ebola-affected area in the 21 days before illness onset. No symptoms or risks identified at this time. Initial Sepsis Screen: Does the patient meet any 2 criteria? No. Patient's initial sepsis screen is negative. Does the patient have a suspected source of infection? No. Patient's initial sepsis screen is negative. Risk Assessment: Do you want to hurt yourself or someone else? Patient reports no desire to harm self or others. Onset of symptoms was October 11, 2023. 13:50 Method Of Arrival: Ambulatory cm10 13:50 Acuity: TANYA 3 cm10 COUTIERIER: 19:22 LMP N/A - control method, Not ll1 Historical: - Allergies: 13:54 No Known Allergies; cm10 - PMHx: 13:54 Anxiety; diabetes mellitus; cm10 - Immunization history:: Adult Immunizations unknown. - Social history:: Smoking status: Reported history of juuling and/or vaping. Screenin:21 [facility] ED Fall Risk Assessment (Adult) Score/Fall Risk Level 0 - 2 = Low Risk ll1 Oriented to surroundings, Maintained a safe environment, Educated pt \\T\\ family on fall prevention, incl call for assistance when getting out of bed, Hourly rounding (assess needs \\T\\ fall precautionary measures) done. Abuse screen: Denies threats or abuse. Nutritional screening: No deficits noted. Tuberculosis screening: No symptoms or risk factors identified. Assessment: 14:27 General: Appears in no apparent distress. Behavior is calm, cooperative, appropriate ll1 for age. Pain: Denies pain. GI: Abdomen is flat, Reports indigestion, nausea, vomiting. 15:25 Reassessment: No changes from previously documented assessment. Patient and/or family ll1 updated on plan of care and expected duration. Pain level reassessed. 15:30 Reassessment: No changes from previously documented assessment. ll1 16:02 Reassessment: No changes from previously documented assessment. Patient and/or family ll1 updated on plan of care and expected duration. Pain level reassessed. Patient is alert, oriented x 3, equal unlabored respirations, skin warm/dry/pink. 17:00 Reassessment: No changes from previously documented assessment. Patient and/or family ll1 updated on plan of care and expected duration. Pain level reassessed. Patient is alert, oriented x 3, equal unlabored respirations, skin warm/dry/pink. 18:00 Reassessment: No changes from previously documented assessment. Patient and/or family ll1 updated on plan of care and expected duration. Pain level reassessed. Patient is alert, oriented x 3, equal unlabored respirations, skin warm/dry/pink. 19:00 Reassessment: No changes from previously documented assessment. Patient and/or family ll1 updated on plan of care and expected duration. Pain level reassessed. Patient is alert, oriented x 3, equal unlabored respirations, skin warm/dry/pink. Vital Signs: 13:50 BP 107 / 84; Pulse 114; Resp 20; Temp 97.9(TE); Pulse Ox 100% ; Weight 72.57 kg; Height cm10 5 ft. 2 in. ; Pain 0/10; 15:29 BP 121 / 94; Pulse 115; ll1 15:45 BP 107 / 73; Pulse 100; Resp 19; ll1 13:50 Body Mass Index 29.26 (72.57 kg, 157.48 cm) cm10 13:50 Pain Scale: Adult cm10 ED Course: 13:23 Patient arrived in ED. im 13:26 [facility] kb 13:26 Isai Narayanan MD is Attending Physician. kb 13:54 Triage completed. cm10 13:55 Arm band placed on Patient placed in an exam room, on a stretcher. cm10 14:23 Nleida Combs, RN is Primary Nurse. ll1 14:30 Inserted saline lock: 22 gauge in right antecubital area, using aseptic technique. ll1 Blood collected. 14:43 Urine collected: clean catch specimen, clear. ll1 14:45 Urinalysis w/ reflexes Sent. ll1 14:45 CBC with Diff Sent. ll1 14:45 CMP Sent. ll1 15:19 Destin Hernandez MD is Hospitalizing Provider. kb 16:39 Inserted saline lock: 22 gauge in left antecubital area, using aseptic technique. tm3 19:21 No provider procedures requiring assistance completed. Patient admitted, IV remains in ll1 place. 19:22 Patient has correct armband on for positive identification. Bed in low position. Call ll1 light in reach. Provided Education on: n/a. Administered Medications: 14:43 Drug: NS 0.9% IV 1000 ml IV at 1000 ml once Route: IV; Rate: 1000 ml; Site: right 1 antecubital; 15:32 Follow up: Response: No adverse reaction; IV Status: Completed infusion; IV Intake: ll1 950ml 15:32 Drug: NS 0.9% IV 1000 ml IV at 1000 ml once Route: IV; Rate: 1000 ml; Site: right ll1 antecubital; 19:22 Follow up: Response: No adverse reaction; IV Status: Completed infusion; IV Intake: ll1 1000ml 15:50 Drug: Insulin Drip - (Insulin Regular Human IVP 100 units, NS 0.9% IV 100 ml) IV at ll1 calculated rate continuous; Standard concentration 1unit/ml; Dose for DKA is 0.1 units/kg/hr {Co-Signature: db ([place] RN).} Route: IV; Rate: calculated rate; Site: right antecubital; 19:22 Follow up: IV Status: Infusion continued upon admission ll1 Medication: 19:22 VIS not applicable for this client. ll1 Intake: 15:32 IV: 950ml; Total: 950ml. ll1 19:22 IV: 1000ml; Total: 1950ml. ll1 Outcome: 15:19 Decision to Hospitalize by Provider. kb 19:22 Admitted to ER Hold. Please see [facility] for further documentation. ll1 19:22 Condition: stable 19:22 Instructed on the need for admit, 20:52 Admitted to ICU accompanied by nurse, room 1, Report called to Vishal HAUSER tm6 20:52 Condition: stable 20:53 Patient left the ED. tm6 Signatures: Zabrina Almanza, GER[employer] MARKETING STRATEGIST-CkTorey Rao tm3 Nelida Combs RN RN ll1 Kimberly Zuniga Clarissa, RN RN cm10 Bhumi Colvin RN RN tm6 [place] RN db
[2023-10-14 15:31] LABS: Arterial Blood Carboxyhemoglob 1.3 % (0-1.5); Blood O2 Saturation 98.1 % (92-98.5)
--- NOTE | 2023-10-14 15:34 | P.HP ---
Certification for Inpatient Patient admitted to: Inpatient With expected LOS: <2 Midnights Patient will require the following post-hospital care: None Practitioner: I am a practitioner with admitting privileges, knowledge of patient current condition, hospital course, and medical plan of care. Services: Services provided to patient in accordance with Admission requirements found in Title 42 Section 412.3 of the Code of Federal Regulations Patient History Date of Service: 10/14/23 Reason for admission: NV, hyperglycemia History of Present Illness: 28-year-old female with a past medical history of insulin-dependent diabetes mellitus, presents to the ER with nausea vomiting and elevated blood glucose. She reports persistent elevated Blood sugars over the last 3 days. She reports nausea vomiting progressively worse over the last 24 hours. She denies recent infection, fever, abdominal pain, dysuria, shortness of breath cough. Plan to admit to ICU for DKA, insulin-dependent diabetes mellitus with uncontrolled hyperglycemia. laboratory evaluation blood glucose 334, mild hyponatremia 134, UA 4+ glucosuria 4+ ketones, WBCs unremarkable mild early left shift 74.1 Allergies No Known Allergies Allergy (Verified 07/12/23 00:43) Home Medications: Insulin Aspart [Novolog Flexpen] See Protocol SQ SEECOM 03/10/23 Insulin Degludec [Tresiba] 24 unit SQ BID 04/21/23 - Past Medical/Surgical History Diabetic: Yes -: Diabetes mellitus type 1 -: C section Psychosocial/ Personal History: Patient lives at home with family - Family History Mother -: Diabetes - Social History Alcohol use: Yes CD- Drugs: Yes Caffeine use: Yes Review of Systems PER HPI Physical Examination - Physical Exam General: Alert, In no apparent distress, Oriented x3 HEENT: Atraumatic Neck: Supple, 2+ carotid pulse no bruit Respiratory: Clear to auscultation bilaterally, Normal air movement Cardiovascular: No edema, Normal pulses Capillary refill: <2 Seconds Gastrointestinal: Normal bowel sounds, Other (Nausea, vomiting) Musculoskeletal: No clubbing, No swelling Integumentary: No rashes, No breakdown - Studies Laboratory Data (last 24 hrs) 10/14/23 10/14/23 14:30 14:30 WBC 6.10 Hgb 13.7 Hct 41.1 Plt Count 340 Sodium 135 L Potassium 3.7 BUN 12 Creatinine 1.17 H Glucose 334 H Total Bilirubin 0.3 AST < 4 L ALT 18 Alkaline Phosphatase 152 H Assessment and Plan - Plan Assessment plan Diabetic ketoacidosis Nausea vomiting Insulin-dependent diabetes mellitus with hyperglycemia Admit to ICU, IV fluids, every hour blood sugars, insulin drip, SS consult to assess medication/INS accessibility Hyponatremia likely pseudo related to hyperglycemia Glucosuria mild hyponatremia 134, UA 4+ glucosuria 4+ ketones, WBCs unremarkable mild early left shift 74.1 Diet n.p.o. Full code DVT Lovenox , Discharge Plan: Home - Advance Directives Does patient have a Living Will: No Does patient have a Durable POA for Healthcare: No Critical Care: Yes Time Spent Managing Pts Care (In Minutes): 65
[2023-10-14] MEDS ORDERED: ONDANSETRON 4 MG/2 ML VIAL IV PRN (15:39)
[2023-10-14] MEDS ORDERED: INSULIN -REGULAR HUMAN 100 UNIT in NA CHLORIDE 0.9% 100 ML IV SCH ×2 (15:45→16:00)
[2023-10-14] MEDS: NA CHLORIDE 0.9% 1,000 ML IV SCH ×2 (16:00→18:00)
[2023-10-14] MEDS ORDERED: Levofloxacin 750mg IV 750 MG/150 ML BAG IV SCH (16:00)
[2023-10-14] MEDS ORDERED: ENOXAPARIN 40 MG/0.4 ML SQ ONE (16:50)
[2023-10-14] MEDS: ENOXAPARIN 40 MG/0.4 ML SQ SCH (16:50)
[2023-10-14] MEDS ORDERED: Levofloxacin 750mg IV 750 MG/150 ML BAG IV ONE (16:51)
[2023-10-14] MEDS ORDERED: D5 0.45 NS 1,000 ML IV ONE (16:51)
[2023-10-14] MEDS: D5 0.45 NS 1,000 ML IV SCH ×2 (16:55→22:40)
[2023-10-14 17:48] VITALS: BMI 29.2
[2023-10-14 20:24] LABS: Potassium 3.1 mEq/L (3.5-5.1)
[2023-10-14] MEDS ORDERED: D50W 25 GM/50 ML SYRINGE IV PRN (21:49)
[2023-10-14] MEDS ORDERED: GLUCAGON 1 MG/VIAL IM PRN (21:49)
[2023-10-14 22:36] VITALS: O2SAT 100
[2023-10-15 00:34] LABS: Potassium 3.6 mEq/L (3.5-5.1)
[2023-10-15] MEDS ORDERED: POTASSIUM 25 MEQ EFFERV TAB PO ONE (00:42)
[2023-10-15 04:56] LABS: Absolute Lymphocytes (CBC) 2.3 K/uL (0.7-4.9); Lymphocytes % 42.7 % (15.3-44.8); MCV 91.3 fL (80-100); Platelets 260 thou/uL (152-406); RBC Red Blood Cell Count 4.05 M/uL (3.86-4.86)
[2023-10-15 05:16] LABS: Potassium 3.8 mEq/L (3.5-5.1)
[2023-10-15] MEDS: D5 0.45 NS 1,000 ML IV SCH (05:19)
--- NOTE | 2023-10-15 06:59 | P.DS ---
Admission Date: 10/14/23 Discharge Date: 10/15/23 Disposition: ROUTINE DISCHARGE Discharge Condition: GOOD Reason for Admission: NV, hyperglycemia Brief History of Present Illness: 28-year-old female with a past medical history of insulin-dependent diabetes mellitus, presents to the ER with nausea vomiting and elevated blood glucose. She reports persistent elevated Blood sugars over the last 3 days. She reports nausea vomiting progressively worse over the last 24 hours. She denies recent infection, fever, abdominal pain, dysuria, shortness of breath cough. Plan to admit to ICU for DKA, insulin-dependent diabetes mellitus with uncontrolled hyperglycemia. laboratory evaluation blood glucose 334, mild hyponatremia 134, UA 4+ glucosuria 4+ ketones, WBCs unremarkable mild early left shift 74.1 - Physical Exam General: Alert, In no apparent distress, Oriented x3 HEENT: Atraumatic Neck: Supple, 2+ carotid pulse no bruit Respiratory: Clear to auscultation bilaterally, Normal air movement Cardiovascular: No edema, Normal pulses Capillary refill: <2 Seconds Gastrointestinal: Normal bowel sounds, Other (Nausea, vomiting) Musculoskeletal: No clubbing, No swelling Integumentary: No rashes, No breakdown Hospital Course: Assessment plan Diabetic ketoacidosis Nausea vomiting Insulin-dependent diabetes mellitus with hyperglycemia Admit to ICU, IV fluids, every hour blood sugars, insulin drip, SS consult to assess medication/INS accessibility Hyponatremia likely pseudo related to hyperglycemia Glucosuria mild hyponatremia 134, UA 4+ glucosuria 4+ ketones, WBCs unremarkable mild early left shift 74.1 Physician Discharge Instructions: -DC IV and DC home -Follow-up with PCP in 1 to 2 weeks -Please call Dr. Hernandez at [phone] if any questions regarding hospital stay -Please call nursing station at [phone] if any nursing or medication questions -Return to the emergency room if symptoms worsen Diet: Diabetic Activity: Fall precautions Patient left AMA, against medical advice Vital Signs/Physical Exam: Temp Pulse Resp BP Pulse Ox 98.4 F 84 17 105/81 98 10/15/23 04:00 10/15/23 06:00 10/15/23 06:00 10/15/23 06:00 10/15/23 06:00 Laboratory Data at Discharge: WBC 5.40 thou/uL (4.3-10.9) 10/15/23 04:33 Hgb 12.4 g/dL (12.0-15.0) D 10/15/23 04:33 Hct 37.0 % (36.0-45.0) 10/15/23 04:33 Plt Count 260 thou/uL (152-406) 10/15/23 04:33 Sodium 139 mEq/L (136-145) 10/15/23 04:33 Potassium 3.8 mEq/L (3.5-5.1) 10/15/23 04:33 BUN 7 mg/dL (7-18) 10/15/23 04:33 Creatinine 0.74 mg/dL (0.55-1.02) 10/15/23 04:33 Glucose 177 mg/dL (74-106) H 10/15/23 04:33 Magnesium 1.8 mg/dL (1.6-2.4) 10/15/23 04:33 Total Bilirubin 0.3 mg/dL (0.2-1.0) 10/14/23 14:30 AST < 4 U/L (15-37) L 10/14/23 14:30 ALT 18 U/L (13-56) 10/14/23 14:30 Alkaline Phosphatase 152 U/L (45-117) H 10/14/23 14:30 Home Medications: Insulin Aspart [Novolog Flexpen] See Protocol SQ SEECOM 03/10/23 Insulin Degludec [Tresiba] 24 unit SQ BID 04/21/23 Physician Discharge Instructions: Hospital Course: Assessment plan Diabetic ketoacidosis Nausea vomiting Insulin-dependent diabetes mellitus with hyperglycemia Admit to ICU, IV fluids, every hour blood sugars, insulin drip, SS consult to assess medication/INS accessibility Hyponatremia likely pseudo related to hyperglycemia Glucosuria mild hyponatremia 134, UA 4+ glucosuria 4+ ketones, WBCs unremarkable mild early left shift 74.1 Physician Discharge Instructions: -DC IV and DC home -Follow-up with PCP in 1 to 2 weeks -Please call Dr. Hernandez at [phone] if any questions regarding hospital stay -Please call nursing station at [phone], ICU, if any nursing or medication questions -Return to the emergency room if symptoms worsen Diet: Diabetic Activity: Fall precautions Followup: NONE,NONE [Primary Care Provider] -
[2023-10-15] MEDS ORDERED: INSULIN REGULAR (HUMAN) 100 UNIT/ML SQ SCH (07:30)
[2023-10-15] MEDS ORDERED: INSULIN GLARGINE 100 UNIT/ML SQ ONE ×2 (08:00→08:39)
[2023-10-15] MEDS ORDERED: INSULIN REGULAR (HUMAN) 100 UNIT/ML ONE (08:39)
[2023-10-15] MEDS: ENOXAPARIN 40 MG/0.4 ML SQ SCH (08:41)
[2023-10-15 09:46] VITALS: BP 113/87; TEMP 97.8
== END 2023-10-15 08:55 | disposition home or self-care (01) | DRG 638 ==
LOC: ER 13:21 → ERHOLD 16:30 → 3RD-ICU 19:22
PROVIDERS: ADMIT Hospitalist; ATTEND Hospitalist
DX: E10.10 Type 1 diabetes mellitus with ketoacidosis without coma (principal); E87.1 Hypo-osmolality and hyponatremia; Z79.4 Long term (current) use of insulin
CPT/HCPCS: 36415; 36600; 80048; 80053; 81001; 82805; 82947; 83735; 85025; 96361; 96365; 96366; 99285; J1650; J1815; J7030; J7799

== ENCOUNTER 2023-10-31 17:17 | Inpatient (IN) | payer SELFPAY ==
[2023-10-31] MEDS ORDERED: FAMOTIDINE 20 MG/2 ML VIAL IV ONE (17:37)
[2023-10-31] MEDS ORDERED: NA CHLORIDE 0.9% 1,000 ML ONE (17:37)
[2023-10-31] MEDS ORDERED: ONDANSETRON 4 MG/2 ML VIAL ONE (17:37)
[2023-10-31] MEDS ORDERED: ACETAMINOPHEN 325 MG TABLET ONE (17:59)
[2023-10-31 18:00] LABS: Absolute Lymphocytes (CBC) 1.1 K/uL (0.7-4.9); Hematocrit 40.6 % (36.0-45.0); Lymphocytes % 9.8 % (15.3-44.8); MCV 94.3 fL (80-100); MPV 7.7 fL (7.6-11.3); Platelets 301 thou/uL (152-406)
[2023-10-31 18:16] LABS: Albumin 3.4 g/dL (3.4-5.0); Bilirubin Total 0.8 mg/dL (0.2-1.0); Potassium 4.7 mEq/L (3.5-5.1); Protein, Total 8.3 g/dL (6.4-8.2)
--- NOTE | 2023-10-31 18:23 | ER ---
Nurse's Notes [facility] Name: Rosalie Parekh Age: 28 yrs Sex: Female : 1995 Arrival Date: 10/31/2023 Time: 17:17 Bed 17 Private MD: Diagnosis: Diabetes mellitus due to underlying condition with ketoacidosis without coma Presentation: 10/31 17:32 Chief complaint: EMS states: high BS, today it's reading high, down to 473 now after iw fast acting insulin. Coronavirus screen: At this time, the client does not indicate any symptoms associated with coronavirus-19. Ebola Screen: Patient negative for fever greater than or equal to 101.5 degrees Fahrenheit, and additional compatible Ebola Virus Disease symptoms Patient denies exposure to infectious person. Patient denies travel to an Ebola-affected area in the 21 days before illness onset. No symptoms or risks identified at this time. 17:32 Method Of Arrival: EMS: [facility] iw 17:32 Acuity: TANYA 3 iw 17:33 Onset of symptoms was October 31, 2023. iw 17:33 Care prior to arrival: IV initiated. 20 GA, in the left forearm, Glucose check: 463. iw 19:30 Initial Sepsis Screen: Does the patient meet any 2 criteria? RR > 20 per min. HR > 90 vc1 bpm. Yes Does the patient have a suspected source of infection? No. Patient's initial sepsis screen is negative. 19:31 Risk Assessment: Do you want to hurt yourself or someone else? Patient reports no vc1 desire to harm self or others. Triage Assessment: 19:00 General: Appears in no apparent distress. comfortable, Behavior is calm, cooperative, vc1 appropriate for age. Pain: Denies pain. Historical: - Allergies: 17:34 No Known Allergies; iw - PMHx: 17:32 Anxiety; diabetes mellitus; iw - PSHx: 17:32 section; iw Screenin:00 [facility] ED Fall Risk Assessment (Adult) Score/Fall Risk Level 0 - 2 = Low Risk jl7 Oriented to surroundings, Maintained a safe environment. Abuse screen: Denies threats or abuse. Denies injuries from another. Nutritional screening: No deficits noted. Tuberculosis screening: No symptoms or risk factors identified. Assessment: 19:00 Reassessment:. General: Appears in no apparent distress. comfortable, Behavior is calm, vc1 cooperative, appropriate for age. Pain: Denies pain. Neuro: No deficits noted. Ramon Agitation-Sedation Scale (RASS): 0 - Alert and Calm Level of Consciousness is awake, alert, obeys commands, Oriented to person, place, time, situation, Appropriate for age. Cardiovascular: Rhythm is sinus tachycardia. Respiratory: Airway is patent Respiratory effort is even, unlabored, Respiratory pattern is symmetrical, tachypnea. GI: Reports nausea. : No deficits noted. No signs and/or symptoms were reported regarding the genitourinary system. EENT: No deficits noted. No signs and/or symptoms were reported regarding the EENT system. Derm: No deficits noted. No signs and/or symptoms reported regarding the dermatologic system. Vital Signs: 18:00 BP 108 / 76; Pulse 101; Resp 22; Temp 98; Pulse Ox 100% ; Weight 68.04 kg; Height 5 ft. jl7 2 in. ; Pain 8/10; 19:00 BP 109 / 81; Pulse 105; Resp 22; Pulse Ox 99% ; vc1 18:00 Body Mass Index 27.44 (68.04 kg, 157.48 cm) jl7 18:00 Pain Scale: Adult jl7 ED Course: 17:19 Patient arrived in ED. kb 17:19 Zabrina Alman[facility]-C [facility]. kb 17:19 Mikie Gordon MD is Attending Physician. kb 17:32 Triage completed. iw 17:34 Sydney Argueta, MURTAZA is Primary Nurse. jl7 17:34 Arm band placed on. iw 18:00 Patient has correct armband on for positive identification. Provided Education on: use jl7 of call monique. 18:00 Initial lab(s) drawn, by me, sent to lab. Maintain EMS IV. Dressing intact. Good blood jl7 return noted. Site clean \T\ dry. Gauge \T\ site: 20 left FA. 18:22 Guzman Patterson is Hospitalizing Provider. kb 19:34 No provider procedures requiring assistance completed. vc1 19:44 IV discontinued, intact, bleeding controlled, Pressure dressing applied. kmf 19:45 Inserted saline lock: 22 gauge in right wrist, using aseptic technique. kmf 23:15 IV discontinued, intact, bleeding controlled, No redness/swelling at site. Pressure tm6 dressing applied. Administered Medications: 18:00 Drug: Ondansetron IVP 4 mg IVP once; over 2 minutes Route: IVP; Site: left forearm; jl7 18:35 Follow up: Response: No adverse reaction jl7 18:10 Drug: Acetaminophen PO 650 mg PO once Route: PO; jl7 18:34 Drug: NS 0.9% IV 1000 ml IV at 1 bolus Per protocol; 1000 mL bolus {Note: EMS fluids jl7 continued.} Route: IV; Rate: 1 bolus; Site: left forearm; 18:58 Follow up: Response: No adverse reaction; IV Status: Completed infusion; IV Intake: jl7 1000ml 18:34 Drug: Famotidine IVP 20 mg IVP once; dilute with 10 mL 0.9% NaCl; give over 2 minutes jl7 Route: IVP; Site: right forearm; 18:35 Follow up: Response: No adverse reaction jl7 18:58 Drug: NS 0.9% IV 1000 ml IV at 1000 ml once Route: IV; Rate: 1000 ml; Site: left jl7 antecubital; Medication: 17:50 VIS not applicable for this client. jl7 Intake: 18:58 IV: 1000ml; Total: 1000ml. jl7 Outcome: 18:22 Decision to Hospitalize by Provider. kb 21:31 Admitted to ER Hold. Please see [facility] for further documentation. tm6 21:31 Condition: stable 21:31 Instructed on the need for admit, 23:15 Discharge instructions given to patient, Instructed on discharge instructions, follow tm6 up and referral plans. Demonstrated understanding of instructions, follow-up care, discharge 23:16 Patient left the ED. tm6 Signatures: Zabrina Almanza, ERCO MACHINE OPERATOR-C ERCO MACHINE OPERATOR-Ckb Yessy Juarez, RN Sydney Garcia RN RN jl7 Radha Heredia RN RN vc1 [place] RN RN Coco Riddle [facility] Bhumi Colvin RN RN tm6 Corrections: (The following items were deleted from the chart) 19:31 19:30 Initial Sepsis Screen: Does the patient meet any 2 criteria? RR > 20 per min. HR vc1 > 90 bpm. Yes db 19:32 19:30 General: Appears in no apparent distress. comfortable, Behavior is calm, vc1 cooperative, appropriate for age, db 19:32 19:30 Pain: Denies pain. db vc1
--- NOTE | 2023-10-31 18:23 | EDPHYS ---
Physician Documentation [facility] Name: Rosalie Parekh Age: 28 yrs Sex: Female : 1995 Arrival Date: 10/31/2023 Time: 17:17 Bed 17 Private MD: ED Physician Mikie Gordon HPI: 10/31 18:21 This 28 yrs old Female presents to ER via EMS with complaints of High Blood Sugar. kb 18:21 Patient is a 28-year-old female with type 1 diabetes who presents for hyperglycemia kb that started this morning. States she has not been able to get under control.. Historical: - Allergies: 17:34 No Known Allergies; iw - PMHx: 17:32 Anxiety; diabetes mellitus; iw - PSHx: 17:32 section; iw ROS: 17:49 Respiratory: Negative for shortness of breath, cough, wheezing, and pleuritic chest kb pain, 17:49 Constitutional: Positive for malaise, 17:49 Abdomen/GI: Positive for nausea, Negative for abdominal pain, vomiting, 17:49 All other systems are negative, Exam: 17:48 Constitutional: This is a well developed, well nourished patient who is awake, alert, kb and in no acute distress. Head/Face: Normocephalic, atraumatic. ENT: Moist Mucous membranes Cardiovascular: Regular rate Respiratory: Respirations even and unlabored. No increased work of breathing. Talking in full sentences Abdomen/GI: Soft, non-tender. No distention Skin: Warm, dry with normal turgor. Normal color. MS/ Extremity: Pulses equal, no cyanosis. Neurovascular intact. Full, normal range of motion. Neuro: Awake and alert, GCS 15, oriented to person, place, time, and situation. Moves all extremities. Normal gait. 17:48 ECG was reviewed by the Attending Physician. Vital Signs: 18:00 BP 108 / 76; Pulse 101; Resp 22; Temp 98; Pulse Ox 100% ; Weight 68.04 kg; Height 5 ft. jl7 2 in. ; Pain 8/10; 19:00 BP 109 / 81; Pulse 105; Resp 22; Pulse Ox 99% ; vc1 18:00 Body Mass Index 27.44 (68.04 kg, 157.48 cm) jl7 18:00 Pain Scale: Adult jl7 MDM: 17:19 Patient medically screened. kb 18:20 Differential diagnosis: DKA, hyperglycemia. Data reviewed: vital signs, nurses notes. kb Consideration of Admission/Observation Patient was admitted/placed on observation. Escalation of care including admission/observation considered. Management of patient was discussed with the following: Hospitalist: Ilana Patricia NP. Historians other than the Patient: EMS: [facility]. Counseling: I had a detailed discussion with the patient and/or guardian regarding the historical points, exam findings, and any diagnostic results supporting the discharge/admit diagnosis, lab results, the need for further work-up and treatment in the hospital. 10/31 17:20 Order name: CBC with Diff 10/31 17:20 Order name: CMP 10/31 17:20 Order name: Lipase 10/31 17:20 Order name: Test, Urine 10/31 17:20 Order name: Urinalysis w/ reflexes kb 10/31 18:03 Order name: CBC with Automated Diff; Complete Time: 18:06 EDTN 10/31 18:09 Order name: Glucose, Ancillary Testing; Complete Time: 18:10 EDTN 10/31 18:18 Order name: Comprehensive Metabolic Panel; Complete Time: 18:19 EDTN 10/31 18:18 Order name: Lipase; Complete Time: 18:19 EDTN 10/31 18:33 Order name: Test, Urine; Complete Time: 18:36 EDTN 10/31 18:33 Order name: Urinalysis w/ reflexes; Complete Time: 18:34 EDTN 10/31 19:52 Order name: Basic Metabolic Panel; Complete Time: 19:56 EDTN 10/31 19:55 Order name: Glucose, Ancillary Testing; Complete Time: 19:56 EDTN 10/31 20:26 Order name: Test Serum, Qualitat; Complete Time: 20:30 EDTN 10/31 21:56 Order name: Glucose, Ancillary Testing; Complete Time: 22:00 EDTN 10/31 22:05 Order name: Basic Metabolic Panel; Complete Time: 22:13 EDTN 10/31 17:20 Order name: EKG; Complete Time: 19:13 10/31 17:20 Order name: IV Saline Lock; Complete Time: 17:50 kb 10/31 17:20 Order name: Labs collected and sent; Complete Time: 17:50 kb 10/31 17:20 Order name: EKG - Nurse/Tech; Complete Time: 17:47 kb EC:48 Rate is 106 beats/min. Rhythm is regular. QRS [place] is Normal. [place] interval is normal at kb 166 msec. QRS interval is normal at 74 msec. QT interval is normal at 443 msec. Administered Medications: 18:00 Drug: Ondansetron IVP 4 mg IVP once; over 2 minutes Route: IVP; Site: left forearm; jl7 18:35 Follow up: Response: No adverse reaction jl7 18:10 Drug: Acetaminophen PO 650 mg PO once Route: PO; jl7 18:34 Drug: NS 0.9% IV 1000 ml IV at 1 bolus Per protocol; 1000 mL bolus {Note: EMS fluids jl7 continued.} Route: IV; Rate: 1 bolus; Site: left forearm; 18:58 Follow up: Response: No adverse reaction; IV Status: Completed infusion; IV Intake: jl7 1000ml 18:34 Drug: Famotidine IVP 20 mg IVP once; dilute with 10 mL 0.9% NaCl; give over 2 minutes jl7 Route: IVP; Site: right forearm; 18:35 Follow up: Response: No adverse reaction jl7 18:58 Drug: NS 0.9% IV 1000 ml IV at 1000 ml once Route: IV; Rate: 1000 ml; Site: left jl7 antecubital; Disposition Summary: 10/31/23 18:22 Hospitalization Ordered Notes: Hospitalization Status: Inpatient Admission kb Provider: Guzman Patterson Condition: Stable kb Problem: new kb Symptoms: are unchanged kb Bed/Room Type: Standard Location: [facility] ER HOLD(10/31/23 20:26) Room Assignment: ERHOLD-(10/31/23 20:26) cg Diagnosis - Diabetes mellitus due to underlying condition with ketoacidosis without coma kb Forms: - Medication Reconciliation Form kb - SBAR form kb - Leadership Thank You Letter kb Signatures: Dispatcher [employer] Zabrina Kelly FNP-C FNP-Yessy Campo, RN MURTAZA iw Judith Jurado RN RN cg Sydney Argueta RN RN jl7 Corrections: (The following items were deleted from the chart) 20: 18:22 Intensive Care Unit kb 20:26 18:22 [facility]
[2023-10-31 18:33] LABS: Specific Gravity 1.024 (1.005-1.030); Urine Bilirubin NEGATIVE (Negative); Urine Blood Negative (Negative); Urine Clarity Clear (Clear); Urine Color Colorless (Yellow); Urine Glucose 4+ (Over) (Negative); Urine Protein NEGATIVE (Negative); Urine Urobilinogen Normal (Normal)
[2023-10-31] MEDS ORDERED: INSULIN REGULAR (HUMAN) 100 UNIT/ML ONE ×2 (18:42→21:54)
[2023-10-31] MEDS ORDERED: NA CHLORIDE 0.9% 100 ML ONE (18:44)
--- NOTE | 2023-10-31 18:45 | P.HP ---
Certification for Inpatient Patient admitted to: Inpatient With expected LOS: <2 Midnights Patient will require the following post-hospital care: None Practitioner: I am a practitioner with admitting privileges, knowledge of patient current condition, hospital course, and medical plan of care. Services: Services provided to patient in accordance with Admission requirements found in Title 42 Section 412.3 of the Code of Federal Regulations Patient History Date of Service: 11/01/23 Reason for admission: DKA History of Present Illness: Ms. Parekh is a 28yo type one diabetic that is poorly compliant. She states she had high blood sugar today with nausea, denies vomiting. She presented to the ED with a FSBS of 426mg/dL. Her anion gap was 26.7. She received NS boluses, pepcid, and zofran in the ED. An insulin drip was ordered but patient stated she was not staying long in the hospital. We will do hourly blood sugars with moderate sliding scale insulin. Recheck chem 7 every four hours until gap is closed. Allergies No Known Allergies Allergy (Verified 07/12/23 00:43) Home medications list reviewed: Yes Home Medications: Insulin Aspart [Novolog Flexpen] See Protocol SQ SEECOM 03/10/23 Insulin Degludec [Tresiba] 24 unit SQ BID 04/21/23 - Past Medical/Surgical History Diabetic: Yes -: Diabetes mellitus type 1 -: C section Psychosocial/ Personal History: Patient lives at home with family - Family History Mother -: Diabetes - Social History Alcohol use: Yes CD- Drugs: Yes Caffeine use: Yes Place of Residence: Home Review of Systems 10-point ROS is otherwise unremarkable Gastrointestinal: Nausea, As per HPI Genitourinary: Frequency, As per HPI Physical Examination - Physical Exam General: In no apparent distress, Oriented x3, Other (agitated) HEENT: Atraumatic, Normocephalic Neck: 2+ carotid pulse no bruit, JVD not distended Respiratory: Clear to auscultation bilaterally Cardiovascular: Regular rate/rhythm, Other (tachycardia) Capillary refill: <2 Seconds Gastrointestinal: Normal bowel sounds Musculoskeletal: No clubbing Integumentary: No rashes Neurological: Normal speech, Normal tone Lymphatics: No axilla or inguinal lymphadenopathy External genitalia: Deferred Rectal: Deferred - Studies Laboratory Data (last 24 hrs) 10/31/23 10/31/23 17:48 17:48 WBC 10.80 Hgb 13.3 Hct 40.6 Plt Count 301 Sodium 131 L Potassium 4.7 BUN 15 Creatinine 1.18 H Glucose 426 H* Total Bilirubin 0.8 AST 11 L ALT 29 Alkaline Phosphatase 200 H Lipase 29 Assessment and Plan - Problems (Diagnosis) (1) DKA (diabetic ketoacidoses) Current Visit: Yes Status: Acute Plan: NPO, received bolus NS IVF in ED Hourly fingersticks with moderate sliding scale CMP q4h x 2 When gap closes, may advance diet Anion gap 26.7 -> 16.3> 12.2 Qualifiers: Diabetes mellitus type: type 1 (2) Noncompliance Current Visit: Yes Status: Acute Plan: Mr. Parekh has DKA frequently, never wants to stay for treatment, has not been using her insulin (which I verified with her that she has at home) correctly. She states she knows about DKA because she has "1000 of these packets at home, if I need to read about it, I can" Admitted 10/15/23 for the same dx Discharge Plan: Home - Advance Directives Does patient have a Living Will: No Does patient have a Durable POA for Healthcare: No
[2023-10-31] MEDS ORDERED: D5 0.45 NS 1,000 ML IV SCH (19:00)
[2023-10-31] MEDS ORDERED: NACHLORIDE 0.45% 1,000 ML IV SCH (19:00)
[2023-10-31] MEDS: INSULIN REGULAR (HUMAN) 100 UNIT/ML IV SCH ×3 (19:00→21:00)
[2023-10-31 19:52] LABS: Potassium 4.3 mEq/L (3.5-5.1)
[2023-10-31] MEDS ORDERED: NACHLORIDE 0.45% 1,000 ML IV ONE (21:52)
[2023-10-31 22:05] LABS: Potassium 4.2 mEq/L (3.5-5.1)
[2023-10-31 23:55] VITALS: BMI 27.3
[2023-11-01 01:38] VITALS: BP 109/81; TEMP 98; O2SAT 99
[2023-11-01] MEDS ORDERED: ENOXAPARIN 40 MG/0.4 ML SQ SCH (09:00)
--- NOTE | 2023-11-07 14:03 | EKG ---
Test Date: 2023-10-31 Test Time: 17:44:07 Spoon Maker: MELANIA MEASUREMENT RESULTS: Intervals: Rate: 106 DE: 166 QRSD: 74 QT: 334 QTc: 443 [place]: P: 70 DE: 166 QRS: 84 T: 33 INTERPRETIVE STATEMENTS: Sinus tachycardia Otherwise normal ECG Compared to ECG 04/21/2023 18:07:34 Sinus rhythm no longer present Atrial abnormality no longer present ST (T wave) deviation no longer present Electronically Signed On 11-07-23 13:47:49 PROCEDURE WRITER by Eduard Landin
== END 2023-10-31 23:16 | disposition home or self-care (01) | DRG 639 ==
LOC: ER 17:17 → ERHOLD 18:46
PROVIDERS: ADMIT Internal Medicine; ATTEND Internal Medicine
DX: E10.10 Type 1 diabetes mellitus with ketoacidosis without coma (principal); F41.9 Anxiety disorder, unspecified; Z79.4 Long term (current) use of insulin; Z91.148 Patient's other noncompliance with medication regimen for other reason; Z83.3 Family history of diabetes mellitus
CPT/HCPCS: 36415; 80048; 80053; 81003; 81025; 82947; 83690; 84703; 85025; 93005; 99285; J1815; J2405; J7030

== ENCOUNTER → 2023-11-15 | Emergency (ER) | payer SELFPAY ==
[~2023-11-15] MED LIST: INSULIN REGULAR (HUMAN) 100 UNIT/ML ONE
[2023-11-15 16:23] LABS: Absolute Lymphocytes (CBC) 1.8 K/uL (0.7-4.9); Hematocrit 36.8 % (36.0-45.0); Lymphocytes % 24.6 % (15.3-44.8); MCV 90.8 fL (80-100); MPV 7.1 fL (7.6-11.3); Platelets 424 thou/uL (152-406); RBC Red Blood Cell Count 4.05 M/uL (3.86-4.86)
[2023-11-15 16:40] LABS: Bilirubin Total 0.4 mg/dL (0.2-1.0); Potassium 4.3 mEq/L (3.5-5.1)
[2023-11-15 16:46] LABS: Specific Gravity 1.026 (1.005-1.030); Urine Bilirubin NEGATIVE (Negative); Urine Blood Negative (Negative); Urine Clarity Clear (Clear); Urine Color Colorless (Yellow); Urine Glucose 4+ (Over) (Negative); Urine Protein NEGATIVE (Negative); Urine Urobilinogen Normal (Normal); Urine pH 5.5 (5.0-7.0)
--- NOTE | 2023-11-15 18:08 | ER ---
Nurse's Notes [facility] Name: Rosalie Parekh Age: 28 yrs Sex: Female : 1995 Arrival Date: 11/15/2023 Time: 15:38 Bed 7 Private MD: Diagnosis: Diabetes mellitus due to underlying condition with hyperglycemia Presentation: 11/15 15:39 Chief complaint: EMS states: toned out to patients home for blood sugar reading "high." ld1 Pt took 15U regular insulin around 1330 today. Pt c/o headache and nausea since last night. Coronavirus screen: At this time, the client does not indicate any symptoms associated with coronavirus-19. Ebola Screen: No symptoms or risks identified at this time. Risk Assessment: Do you want to hurt yourself or someone else? Patient reports no desire to harm self or others. Onset of symptoms was November 15, 2023. 15:39 Method Of Arrival: EMS: [facility] ld1 15:39 Acuity: TANYA 2 ld1 18:19 Initial Sepsis Screen: Does the patient meet any 2 criteria? No. Patient's initial bp sepsis screen is negative. Does the patient have a suspected source of infection? No. Patient's initial sepsis screen is negative. Triage Assessment: 15:42 General: Appears in no apparent distress. uncomfortable, Behavior is calm, cooperative, ld1 appropriate for age. Pain: Complains of pain in face Pain does not radiate. Pain currently is 7 out of 10 on a pain scale. Quality of pain is described as throbbing, Pain began 1 hour ago. EENT: No signs and/or symptoms were reported regarding the EENT system. Neuro: Level of Consciousness is awake, alert, obeys commands, Oriented to person, place, time, situation. Cardiovascular: Capillary refill < 3 seconds Patient's skin is warm and dry. Respiratory: Airway is patent Respiratory effort is even, unlabored. GI: Abdomen is flat, non-distended, Reports nausea. : No signs and/or symptoms were reported regarding the genitourinary system. Derm: No signs and/or symptoms reported regarding the dermatologic system. Musculoskeletal: No signs and/or symptoms reported regarding the musculoskeletal system. Historical: - Allergies: 15:39 No Known Allergies; ld1 - PMHx: 15:39 Anxiety; diabetes mellitus; ld1 - PSHx: 15:39 section; ld1 - Immunization history:: Adult Immunizations up to date. - Social history:: Smoking status: Patient denies any tobacco usage or history of. Patient/guardian denies using alcohol. Screenin:43 [facility] ED Fall Risk Assessment (Adult) History of falling in the last 3 months, ld1 including since admission No falls in past 3 months (0 pts). Abuse screen: Denies threats or abuse. Denies injuries from another. Nutritional screening: No deficits noted. Tuberculosis screening: No symptoms or risk factors identified. Assessment: 15:43 Reassessment: See triage assessment. General: Appears in no apparent distress. ld1 comfortable, Behavior is calm, cooperative, appropriate for age. Pain:. Vital Signs: 15:43 BP 120 / 80; Pulse 85; Resp 18; Temp 97.8(O); Pulse Ox 100% on R/A; Weight 68.04 kg; ld1 Height 5 ft. 2 in. ; Pain 7/10; 16:44 BP 106 / 68; Pulse 82; Resp 18; Pulse Ox 100% on R/A; ld1 17:50 BP 118 / 85; Pulse 107; Resp 16; Pulse Ox 100% ; ld1 15:43 Body Mass Index 27.44 (68.04 kg, 157.48 cm) ld1 15:43 Pain Scale: Adult ld1 ED Course: 15:39 Patient arrived in ED. ld1 15:39 Zabrina Almanza FNP-C is [facility]. kb 15:39 Ralph Silva MD is Attending Physician. kb 15:42 Triage completed. ld1 15:42 Arm band placed on right wrist. ld1 15:43 Patient has correct armband on for positive identification. Placed in gown. Bed in low ld1 position. Call light in reach. Side rails up X2. manager monitoring on. Pulse ox on. NIBP on. Door closed. Noise minimized. Warm blanket given. 15:43 Maintain EMS IV. Dressing intact. Good blood return noted. Site clean \\T\\ dry. Gauge \\T\\ ld 1 site: 18G LAC. 15:43 No provider procedures requiring assistance completed. ld1 15:53 Mauricio Gill, RN is Primary Nurse. bp 16:12 Urinalysis w/ reflexes Sent. ls5 16:12 CMP Sent. ls5 16:12 CBC with Diff Sent. ls5 18:18 IV discontinued, intact, bleeding controlled, No redness/swelling at site. Pressure bp dressing applied. Administered Medications: 15:55 Drug: NS 0.9% IV 1000 ml IV at 1000 ml once Route: IV; Rate: 1000 ml; Site: left ld1 antecubital; 17:07 Follow up: Response: No adverse reaction; IV Status: Completed infusion; IV Intake: ld1 1000ml 17:50 Follow up: IV Status: Completed infusion; IV Intake: 1000ml ld1 17:15 Drug: Insulin Regular Human IVP 10 units IVP once {Co-Signature: bp (Mauricio Gill1 RN).} Route: IVP; Site: right antecubital; 17:50 Follow up: Response: No adverse reaction ld1 Medication: 15:43 VIS not applicable for this client. ld1 Intake: 17:07 IV: 1000ml; Total: 1000ml. ld1 17:50 IV: 1000ml; Total: 2000ml. ld1 Outcome: 18:07 Discharge ordered by MD. richardson 18:18 Discharged to home ambulatory, bp 18:18 Condition: stable 18:18 Discharge instructions given to patient, Instructed on discharge instructions, follow up and referral plans. Demonstrated understanding of instructions, follow-up care, 18:19 Patient left the ED. bp Signatures: Zabrina Almanza FNP-C FNP-Mauricio Haines, RN RN bp Nneka Johnston RN RN ld1 Shane Jalloh ls5 Mauricio Gill RN bp
--- NOTE | 2023-11-15 18:08 | EDPHYS ---
Physician Documentation [facility] Name: Rosalie Parekh Age: 28 yrs Sex: Female : 1995 Arrival Date: 11/15/2023 Time: 15:38 Bed 7 Private MD: ED Physician Ralph Silva HPI: 11/15 17:17 This 28 yrs old Female presents to ER via EMS with complaints of High Blood Sugar, kb Nausea. 17:17 Patient is a 28-year-old female with a history of diabetes who presents for high blood kb sugar and nausea that started yesterday. Denies vomiting, fever. Historical: - Allergies: 15:39 No Known Allergies; ld1 - PMHx: 15:39 Anxiety; diabetes mellitus; ld1 - PSHx: 15:39 section; ld1 - Immunization history:: Adult Immunizations up to date. - Social history:: Smoking status: Patient denies any tobacco usage or history of. Patient/guardian denies using alcohol. ROS: 17:16 Constitutional: Negative for fever, chills, and weight loss, kb 17:16 Abdomen/GI: Positive for nausea, 17:16 All other systems are negative, Exam: 17:16 Constitutional: This is a well developed, well nourished patient who is awake, alert, kb and in no acute distress. Head/Face: Normocephalic, atraumatic. ENT: Moist Mucous membranes Cardiovascular: Regular rate Respiratory: Respirations even and unlabored. No increased work of breathing. Talking in full sentences Abdomen/GI: Soft, non-tender. No distention Skin: Warm, dry with normal turgor. Normal color. MS/ Extremity: Pulses equal, no cyanosis. Neurovascular intact. Full, normal range of motion. Neuro: Awake and alert, GCS 15, oriented to person, place, time, and situation. Moves all extremities. Normal gait. Vital Signs: 15:43 BP 120 / 80; Pulse 85; Resp 18; Temp 97.8(O); Pulse Ox 100% on R/A; Weight 68.04 kg; ld1 Height 5 ft. 2 in. ; Pain 7/10; 16:44 BP 106 / 68; Pulse 82; Resp 18; Pulse Ox 100% on R/A; ld1 17:50 BP 118 / 85; Pulse 107; Resp 16; Pulse Ox 100% ; ld1 15:43 Body Mass Index 27.44 (68.04 kg, 157.48 cm) ld1 15:43 Pain Scale: Adult ld1 MDM: 15:40 Patient medically screened. kb 17:17 Differential diagnosis: DKA, hyperglycemia. Data reviewed: vital signs, nurses notes. kb Consideration of Admission/Observation Escalation of care including admission/observation considered. admission considered, but pt is not in DKA. Will treat hyperglycemia and pt is stable for discharge. Historians other than the Patient: EMS: [facility]. Counseling: I had a detailed discussion with the patient and/or guardian regarding the historical points, exam findings, and any diagnostic results supporting the discharge/admit diagnosis, lab results, the need for outpatient follow up, a family practitioner, to return to the emergency department if symptoms worsen or persist or if there are any questions or concerns that arise at home. 11/15 15:40 Order name: CBC with Diff; Complete Time: 16:24 kb 11/15 15:40 Order name: CMP; Complete Time: 16:58 kb 11/15 15:40 Order name: Urinalysis w/ reflexes; Complete Time: 16:58 kb 11/15 18:07 Order name: Glucose, Ancillary Testing; Complete Time: 18:07 EDMS 11/15 15:40 Order name: EKG; Complete Time: 15:41 kb 11/15 15:40 Order name: IV Start; Complete Time: 15:50 kb 11/15 15:40 Order name: EKG - Nurse/Tech; Complete Time: 16:12 kb Administered Medications: 15:55 Drug: NS 0.9% IV 1000 ml IV at 1000 ml once Route: IV; Rate: 1000 ml; Site: left ld1 antecubital; 17:07 Follow up: Response: No adverse reaction; IV Status: Completed infusion; IV Intake: ld1 1000ml 17:50 Follow up: IV Status: Completed infusion; IV Intake: 1000ml ld1 17:15 Drug: Insulin Regular Human IVP 10 units IVP once {Co-Signature: bp (Mauricio Gill ld1 RN).} Route: IVP; Site: right antecubital; 17:50 Follow up: Response: No adverse reaction ld1 Disposition Summary: 11/15/23 18:07 Discharge Ordered Notes: Location: Home kb Condition: Stable kb Diagnosis - Diabetes mellitus due to underlying condition with hyperglycemia kb Followup: kb - With: Emergency Department - When: As needed - Reason: Worsening of condition Followup: kb - With: Private Physician - When: 2 - 3 days - Reason: Recheck today's complaints, Continuance of care, Re-evaluation by your physician Discharge Instructions: - Discharge Summary Sheet kb - Hyperglycemia kb Forms: - Medication Reconciliation Form kb - Thank You Letter kb - Antibiotic Education kb - Prescription Opioid Use kb - Patient Portal Instructions kb - Leadership Thank You Letter kb Signatures: Dispatcher [employer] EDZabrina Hubbard, NELY-C DINING ROOM SUPERVISOR-Nneka Cheney, RN RN ld1 Mauricio Gill RN bp
[2023-11-15 20:48] VITALS: BP 118/85; TEMP 97.8; O2SAT 100
--- NOTE | 2023-11-17 17:03 | EKG ---
Test Date: 2023-11-15 Test Time: 16:09:14 Corporate Coordinator: NUVIA MEASUREMENT RESULTS: Intervals: Rate: 83 [place]: 178 QRSD: 86 QT: 360 QTc: 423 [place]: P: 71 [place]: 178 QRS: 89 T: 53 INTERPRETIVE STATEMENTS: Sinus rhythm with occasional premature ventricular complexes Otherwise normal ECG Compared to ECG 10/31/2023 17:44:07 Ventricular premature complex(es) now present Sinus tachycardia no longer present Electronically Signed On 11-17-23 16:58:07 BUILDING PRESSURE WASHER by Eduard Landin
== END ==
LOC: ER 15:38
DX: E11.65 Type 2 diabetes mellitus with hyperglycemia (principal)
CPT/HCPCS: 36415; 80053; 81003; 82947; 85025; 93005; 96361; 96374; 99285; J1815

== ENCOUNTER 2023-11-28 15:32 | Inpatient (IN) | payer SELFPAY ==
[2023-11-28] MEDS ORDERED: ONDANSETRON 4 MG/2 ML VIAL ONE ×2 (15:53→23:44)
[2023-11-28] MEDS ORDERED: NA CHLORIDE 0.9% 1,000 ML ONE ×2 (15:53→17:07)
[2023-11-28 16:05] LABS: Arterial Blood Carboxyhemoglob 0.9 % (0-1.5); Blood Gas Oxyhemoglobin 62.9 % (94-97)
[2023-11-28 16:11] LABS: Absolute Lymphocytes (CBC) 3.3 K/uL (0.7-4.9); Hematocrit 44.4 % (36.0-45.0); Lymphocytes % 21.8 % (15.3-44.8); MCV 94.5 fL (80-100); MPV 7.4 fL (7.6-11.3); Platelets 500 thou/uL (152-406)
[2023-11-28 16:25] LABS: ALT/SGPT 25 U/L (13-56); AST/SGOT 16 U/L (15-37); Alkaline Phosphatase 161 U/L (45-117); BUN Blood Urea Nitrogen 14 mg/dL (7-18); Bilirubin Direct 0.1 mg/dL (0-0.2); Bilirubin Indirect, Calculated 0.5 mg/dL (0.2-0.8); Bilirubin Total 0.6 mg/dL (0.2-1.0); Glomerular Filtration Rate 70 ml/min (=/>90); Lipase 28 U/L (13-75); Magnesium 2.1 mg/dL (1.6-2.4); Phosphorus 3.4 mg/dL (2.5-4.9); Potassium 3.9 mEq/L (3.5-5.1); Protein, Total 8.7 g/dL (6.4-8.2); Sodium Level 131 mEq/L (136-145)
[2023-11-28 16:30] LABS: Bicarbonate < 8 mEq/L (21-32); Glucose Level 493 mg/dL (74-106)
--- NOTE | 2023-11-28 17:05 | EDPHYS ---
Physician Documentation [facility] Name: Rosalie Parekh Age: 28 yrs Sex: Female : 1995 Arrival Date: 11/28/2023 Time: 15:32 Bed 20 Private MD: ED Physician Matthias Johnston HPI: 11/28 18:06 This 28 yrs old Female presents to ER via Unassigned with complaints of nausea and ms3 vomiting. 18:06 28-year-old female with past medical history of diabetes type 1, anxiety presents to [facility] [place] department via [facility] for body aches, headache, nausea, vomiting. Patient states she has been out of her fast-acting insulin for 2 weeks. Patient states she took 22 units of long-acting insulin prior to EMS arrival.. Historical: - Allergies: 15:38 No Known Allergies; bp - PMHx: 15:38 Anxiety; diabetes mellitus; bp - PSHx: 15:38 section; bp - Immunization history:: Adult Immunizations up to date. - Social history:: Smoking status: Patient denies any tobacco usage or history of. ROS: 18:06 Constitutional: Negative for fever, and chills. Cardiovascular: Negative for chest ms3 pain, and palpitations. Respiratory: Negative for shortness of breath, cough, wheezing, and pleuritic chest pain, 18:06 Skin: Negative for injury, rash, and discoloration, Neuro: Negative for headache, weakness, numbness, tingling. 18:06 Abdomen/GI: Positive for nausea and vomiting, 18:06 All other systems are negative, Exam: 18:06 Constitutional: This is a well developed, well nourished patient who is awake, alert, ms3 and in no acute distress. Head/Face: Normocephalic, atraumatic. Neck: Trachea midline, no cervical lymphadenopathy. Supple, full range of motion without nuchal rigidity, or vertebral point tenderness. No Meningismus. Chest/axilla: Normal chest wall appearance and motion. Nontender with no deformity. Cardiovascular: Regular rate and rhythm with a normal S1 and S2. No gallops, murmurs, or rubs. Normal PMI, no JVD. No pulse deficits. Respiratory: Lungs have equal breath sounds bilaterally, clear to auscultation and percussion. No rales, rhonchi or wheezes noted. No increased work of breathing, no retractions or nasal flaring. Abdomen/GI: Soft, non-tender, with normal bowel sounds. No distension or tympany. No guarding or rebound. No evidence of tenderness throughout. Skin: Warm, dry with normal turgor. Normal color with no rashes, no lesions, and no evidence of cellulitis. MS/ Extremity: Pulses equal, no cyanosis. Neurovascular intact. Full, normal range of motion. 18:20 ECG was reviewed by the Attending Physician. ms3 Vital Signs: 15:36 BP 120 / 78; Pulse 108; Resp 28; Temp 98; Pulse Ox 99% ; Weight 68 kg; Height 5 ft. 2 bp in. ; 19:15 BP 123 / 67; Pulse 111; Resp 23; Pulse Ox 100% on R/A; lg3 15:36 Body Mass Index 27.42 (68.00 kg, 157.48 cm) bp MDM: 15:36 Patient medically screened. ms3 18:06 Differential diagnosis: Nonspecific abd pain, gastritis, DKA. Data reviewed: vital ms3 signs, nurses notes, and as a result, I will discharge patient. Consideration of Admission/Observation Patient was admitted/placed on observation. Management of patient was discussed with the following: Hospitalist: Dr Hernandez. I considered the following discharge prescriptions or medication management in the emergency department Medications were administered in the Emergency Department. See MAR. Independent interpretation of the following test(s) in the Emergency Department EKG: See my EKG interpretation above. Historians other than the Patient: EMS: [place]. Care significantly affected by the following chronic conditions: Diabetes. Care significantly affected by the following Social Determinants of Health: Poor access to healthcare and/or lack of insurance. Counseling: I had a detailed discussion with the patient and/or guardian regarding the historical points, exam findings, and any diagnostic results supporting the discharge/admit diagnosis, lab results, the need for outpatient follow up, to return to the emergency department if symptoms worsen or persist or if there are any questions or concerns that arise at home. ED course: Discussed necessity for admission with patient. Patient understands agrees with plan. All questions were answered. 11/28 15:37 Order name: Basic Metabolic Panel; Complete Time: 16:35 ms3 11/28 15:37 Order name: CBC with Diff; Complete Time: 16:56 ms3 11/28 15:37 Order name: Hepatic Function; Complete Time: 16:35 ms3 11/28 15:37 Order name: Lipase; Complete Time: 16:35 ms3 11/28 15:37 Order name: Magnesium; Complete Time: 16:35 ms3 11/28 15:37 Order name: Phosphorus; Complete Time: 16:35 ms3 11/28 15:37 Order name: ABG: VBG; Complete Time: 16:24 ms3 11/28 17:50 Order name: Basic Metabolic Panel EDMS 11/28 17:50 Order name: Basic Metabolic Panel EDMS 11/28 17:50 Order name: Basic Metabolic Panel EDMS 11/28 17:50 Order name: Basic Metabolic Panel EDMS 11/28 17:50 Order name: Calcium Level EDMS 11/28 17:50 Order name: Calcium Level EDMS 11/28 17:50 Order name: Calcium Level EDMS 11/28 17:50 Order name: Calcium Level EDMS 11/28 17:50 Order name: CBC with Automated Diff EDMS 11/28 17:50 Order name: CBC with Automated Diff EDMS 11/28 17:50 Order name: CBC with Automated Diff EDMS 11/28 17:50 Order name: CBC with Automated Diff EDMS 11/28 17:50 Order name: Lipid Profile EDMS 11/28 17:50 Order name: Lipid Profile EDMS 11/28 17:50 Order name: Magnesium EDMS 11/28 17:50 Order name: Magnesium EDMS 11/28 17:50 Order name: Magnesium EDMS 11/28 17:50 Order name: Magnesium EDMS 11/28 18:42 Order name: Glucose, Ancillary Testing; Complete Time: 19:26 EDMS 11/28 19:51 Order name: Glucose, Ancillary Testing EDMS 11/28 20:48 Order name: Glucose, Ancillary Testing EDMS 11/28 21:58 Order name: Glucose, Ancillary Testing EDMS 11/28 22:29 Order name: Glucose, Ancillary Testing EDMS 11/28 23:16 Order name: Glucose, Ancillary Testing EDMS 11/29 00:11 Order name: Glucose, Ancillary Testing EDMS 11/29 01:16 Order name: Glucose, Ancillary Testing EDMS 11/29 02:43 Order name: Glucose, Ancillary Testing EDMS 11/29 03:54 Order name: Glucose, Ancillary Testing EDMS 11/29 05:25 Order name: Basic Metabolic Panel EDMS 11/29 05:30 Order name: Glucose, Ancillary Testing EDMS 11/29 06:47 Order name: Glucose, Ancillary Testing EDMS 11/29 07:45 Order name: Glucose, Ancillary Testing EDOK 11/29 07:54 Order name: Basic Metabolic Panel 11/29 09:06 Order name: Basic Metabolic Panel EDMS 11/29 09:15 Order name: Glucose, Ancillary Testing EDMS 11/29 10:23 Order name: Glucose, Ancillary Testing EDMS 11/29 11:57 Order name: Glucose, Ancillary Testing EDMS 11/29 13:07 Order name: Glucose, Ancillary Testing EDMS 11/29 14:50 Order name: Glucose, Ancillary Testing EDOK 11/29 15:17 Order name: Basic Metabolic Panel EDOK 11/28 15:37 Order name: EKG; Complete Time: 15:37 ms3 11/28 15:37 Order name: Cardiac monitoring; Complete Time: 16:03 ms3 11/28 15:37 Order name: EKG - Nurse/Tech; Complete Time: 16:01 ms3 11/28 15:37 Order name: IV Saline Lock; Complete Time: 16:01 ms3 11/28 15:37 Order name: NPO; Complete Time: 15:49 ms3 11/28 15:37 Order name: O2 Per Protocol; Complete Time: 15:49 ms3 11/28 15:37 Order name: O2 Sat Monitoring; Complete Time: 15:49 ms3 EC:20 Rate is 97 beats/min. Rhythm is regular. QRS [place] is Normal. MS interval is normal. QRS ms3 interval is normal. Clinical impression: Normal ECG. Interpreted by me. Reviewed by me. Administered Medications: 16:03 Drug: NS 0.9% IV 1000 ml IV at 1000 ml once Route: IV; Rate: 1000 ml; Site: right bp antecubital; 19:25 Follow up: IV Status: Completed infusion; IV Intake: 1000ml lg3 16:03 Drug: Ondansetron IVP 4 mg IVP once; over 2 minutes Route: IVP; Site: right antecubital;bp 19:24 Follow up: Response: No adverse reaction lg3 17:28 Drug: Potassium Chloride IV 20 mEq IV at calculated rate once; administer over 1-2 bp hours Route: IV; Rate: calculated rate; Site: right antecubital; 19:24 Follow up: Response: No adverse reaction; IV Status: Completed infusion lg3 17:28 Drug: Sodium Bicarbonate IVP 2 amp IVP once; (50 mL); equals 50 mEq Route: IVP; Site: bp right antecubital; 19:24 Follow up: Response: No adverse reaction lg3 17:28 Drug: NS 0.9% IV 1000 ml IV at 1 bolus Per protocol; 1000 mL bolus Route: IV; Rate: 1 bp bolus; Site: right antecubital; 19:24 Follow up: IV Status: Completed infusion; IV Intake: 1000ml lg3 17:28 Drug: Promethazine IVP 25 mg IVP once Route: IVP; Site: right antecubital; bp 19:24 Follow up: Response: No adverse reaction lg3 17:29 Drug: Insulin Drip - (Insulin Regular Human IVP 100 units, NS 0.9% IV 100 ml) IV at bp calculated rate continuous; Standard concentration 1unit/ml; Dose for DKA is 0.1 units/kg/hr {Co-Signature: me1 (Rosana Brown RN).} Route: IV; Rate: calculated rate; Site: right antecubital; 22:52 Follow up: IV Status: Infusion continued upon admission lg3 19:30 Drug: Acetaminophen PO 1000 mg PO once Route: PO; lg3 22:52 Follow up: Response: No adverse reaction lg3 Disposition Summary: 11/28/23 17:04 Hospitalization Ordered Notes: Hospitalization Status: Inpatient Admission ms3 Provider: Destin Hernandez ms3 Condition: Stable ms3 Problem: new ms3 Symptoms: are unchanged ms3 Bed/Room Type: Standard ms3 Location: [facility] ER HOLD(11/29/23 01:25) ty Room Assignment: ERHOLD-(11/29/23 01:25) ty Diagnosis - Diabetic ketoacidosis ms3 - Nausea with vomiting, unspecified ms3 Discharge Instructions: - Discharge Summary Sheet cp4 Forms: - Medication Reconciliation Form ms3 - SBAR form ms3 - Leadership Thank You Letter ms3 - Work release form cp4 Critical care time excluding procedures: 18:14 Critical care time: Bedside Care: 35 minutes, Consultation: 5 minutes. Total time: 40 ms3 minutes Signatures: Dispatcher [employer] SPANGLER Mauricio Gill, RN RN bp AbleClaudia RN RN lg3 Matthias Johnston DO DO ms3 Orville Ruvalcaba MD MD sp4 Jordan Ro Michelle RN me1 Corrections: (The following items were deleted from the chart) 11/29 01:11/28 17:04 Intensive Care Unit ms3 ty 11/29 01:11/28 17:04 ms3 ty
--- NOTE | 2023-11-28 17:05 | ER ---
Nurse's Notes [facility] Name: Rosalie Parekh Age: 28 yrs Sex: Female : 1995 Arrival Date: 11/28/2023 Time: 15:32 Bed 20 Private MD: Diagnosis: Diabetic ketoacidosis;Nausea with vomiting, unspecified Presentation: 11/28 15:36 Chief complaint: EMS states: NAUSEA, VOMITING AND HYPERGLYCEMIA. Coronavirus screen: At bp this time, the client does not indicate any symptoms associated with coronavirus-19. Ebola Screen: No symptoms or risks identified at this time. Initial Sepsis Screen: Does the patient meet any 2 criteria? HR > 90 bpm. No. Patient's initial sepsis screen is negative. Does the patient have a suspected source of infection? No. Patient's initial sepsis screen is negative. Risk Assessment: Do you want to hurt yourself or someone else? Patient reports no desire to harm self or others. Onset of symptoms was November 28, 2023. Care prior to arrival: Glucose check: 397. 15:36 Method Of Arrival: : [facility] bp 15:36 Acuity: TANYA 3 bp Triage Assessment: 15:38 General: Appears distressed, Behavior is cooperative, appropriate for age, anxious. bp Pain: Complains of pain in abdomen. Historical: - Allergies: 15:38 No Known Allergies; bp - PMHx: 15:38 Anxiety; diabetes mellitus; bp - PSHx: 15:38 section; bp - Immunization history:: Adult Immunizations up to date. - Social history:: Smoking status: Patient denies any tobacco usage or history of. Screenin:15 [facility] ED Fall Risk Assessment (Adult) History of falling in the last 3 months, lg3 including since admission No falls in past 3 months (0 pts). Abuse screen: Denies threats or abuse. Denies injuries from another. Nutritional screening: No deficits noted. Tuberculosis screening: No symptoms or risk factors identified. Assessment: 19:15 General: Appears in no apparent distress. comfortable, Behavior is calm, cooperative. lg3 Pain: Complains of pain in head. Neuro: No deficits noted. Ramon Agitation-Sedation Scale (RASS): 0 - Alert and Calm Level of Consciousness is awake, alert, obeys commands, Oriented to person, place, time, situation. Cardiovascular: No deficits noted. Denies chest pain, shortness of breath, Capillary refill < 3 seconds Clubbing of nail beds is absent JVD is absent Patient's skin is warm and dry. Respiratory: No deficits noted. Airway is patent Respiratory effort is even, unlabored, Respiratory pattern is regular, symmetrical. GI: No deficits noted. Abdomen is round non-distended, Reports nausea. : No deficits noted. No signs and/or symptoms were reported regarding the genitourinary system. EENT: No deficits noted. No signs and/or symptoms were reported regarding the EENT system. Derm: No deficits noted. No signs and/or symptoms reported regarding the dermatologic system. Skin is intact, is healthy with good turgor, Skin is dry, Skin is normal, Skin temperature is warm. Musculoskeletal: No deficits noted. No signs and/or symptoms reported regarding the musculoskeletal system. Circulation, motion, and sensation intact. Range of motion: intact in all extremities. Vital Signs: 15:36 BP 120 / 78; Pulse 108; Resp 28; Temp 98; Pulse Ox 99% ; Weight 68 kg; Height 5 ft. 2 bp in. ; 19:15 BP 123 / 67; Pulse 111; Resp 23; Pulse Ox 100% on R/A; lg3 15:36 Body Mass Index 27.42 (68.00 kg, 157.48 cm) bp ED Course: 15:34 Patient arrived in ED. eb 15:36 Matthias Johnston DO is Attending Physician. ms3 15:36 Mauricio Gill, RN is Primary Nurse. bp 15:38 Triage completed. bp 15:38 Arm band placed on. bp 16:00 Basic Metabolic Panel Sent. rc3 16:00 CBC with Diff Sent. rc3 16:00 Hepatic Function Sent. rc3 16:01 Lipase Sent. rc3 16:01 Magnesium Sent. rc3 16:01 Phosphorus Sent. rc3 16:01 Inserted saline lock: 20 gauge in right antecubital area, using aseptic technique. rc3 Blood collected. 17:02 Destin Hernandez MD is Hospitalizing Provider. ms3 19:15 Patient has correct armband on for positive identification. Bed in low position. Call lg3 light in reach. Side rails up X2. Report received from MURTAZA Martínez. Client placed on continuous cardiac and pulse oximetry monitoring. NIBP monitoring applied. radiation monitor on. Door closed. Noise minimized. Warm blanket given. 19:15 Patient maintains SpO2 saturation greater than 95% on room air. lg3 22:51 No provider procedures requiring assistance completed. Patient admitted, IV remains in lg3 place. Administered Medications: 16:03 Drug: NS 0.9% IV 1000 ml IV at 1000 ml once Route: IV; Rate: 1000 ml; Site: right bp antecubital; 19:25 Follow up: IV Status: Completed infusion; IV Intake: 1000ml lg3 16:03 Drug: Ondansetron IVP 4 mg IVP once; over 2 minutes Route: IVP; Site: right antecubital;bp 19:24 Follow up: Response: No adverse reaction lg3 17:28 Drug: Potassium Chloride IV 20 mEq IV at calculated rate once; administer over 1-2 bp hours Route: IV; Rate: calculated rate; Site: right antecubital; 19:24 Follow up: Response: No adverse reaction; IV Status: Completed infusion lg3 17:28 Drug: Sodium Bicarbonate IVP 2 amp IVP once; (50 mL); equals 50 mEq Route: IVP; Site: bp right antecubital; 19:24 Follow up: Response: No adverse reaction lg3 17:28 Drug: NS 0.9% IV 1000 ml IV at 1 bolus Per protocol; 1000 mL bolus Route: IV; Rate: 1 bp bolus; Site: right antecubital; 19:24 Follow up: IV Status: Completed infusion; IV Intake: 1000ml lg3 17:28 Drug: Promethazine IVP 25 mg IVP once Route: IVP; Site: right antecubital; bp 19:24 Follow up: Response: No adverse reaction lg3 17:29 Drug: Insulin Drip - (Insulin Regular Human IVP 100 units, NS 0.9% IV 100 ml) IV at bp calculated rate continuous; Standard concentration 1unit/ml; Dose for DKA is 0.1 units/kg/hr {Co-Signature: 1 (Rosana Brown RN).} Route: IV; Rate: calculated rate; Site: right antecubital; 22:52 Follow up: IV Status: Infusion continued upon admission lg3 19:30 Drug: Acetaminophen PO 1000 mg PO once Route: PO; lg3 22:52 Follow up: Response: No adverse reaction lg3 Medication: 19:15 VIS not applicable for this client. lg3 Intake: 19:24 IV: 1000ml; Total: 1000ml. lg3 19:25 IV: 1000ml; Total: 2000ml. lg3 Outcome: 17:04 Decision to Hospitalize by Provider. ms3 22:51 Admitted to ER Hold. Please see [facility] for further documentation. lg3 22:51 Condition: stable 22:51 Instructed on the need for admit, Demonstrated understanding of instructions, 11/29 15:39 Patient left the ED. mb9 Signatures: Mauricio Gill, RN RN Rani Flores Lacie, RN RN lg3 Matthias Johnston DO DO ms3 Elodia, Soco Roberts RN RN mb9 Maribel Chu 3 Rosana Brown RN me1 Corrections: (The following items were deleted from the chart) 11/28 17:15 15:36 BP 120 / 78; Pulse 108bpm; Resp 28bpm; Pulse Ox 99%; Temp 98F; bp bp 19:30 19:15 Pain: Denies pain. lg3 lg3
[2023-11-28] MEDS ORDERED: PROMETHAZINE INJ 25 MG/ML AMP ONE (17:07)
[2023-11-28] MEDS ORDERED: KCL 20 MEQ/100 mL IVPB 100 ML IV ONE (17:07)
[2023-11-28] MEDS ORDERED: INSULIN -REGULAR HUMAN 100 UNIT in NA CHLORIDE 0.9% 100 ML IV SCH ×2 (17:45→18:00)
[2023-11-28] MEDS ORDERED: ONDANSETRON 4 MG/2 ML VIAL IV PRN (17:45)
--- NOTE | 2023-11-28 17:49 | P.HP ---
Certification for Inpatient Patient admitted to: Inpatient With expected LOS: >2 Midnights Patient will require the following post-hospital care: None Practitioner: I am a practitioner with admitting privileges, knowledge of patient current condition, hospital course, and medical plan of care. Services: Services provided to patient in accordance with Admission requirements found in Title 42 Section 412.3 of the Code of Federal Regulations Patient History Date of Service: 11/28/23 Reason for admission: DKA History of Present Illness: Patient is a 28-year-old female who is well-known to me from multiple prior admissions with diabetic ketoacidosis. Patient comes in once again with DKA. She has been having nausea and vomiting and she has not been taking her insulin. She normally goes into diabetic ketoacidosis when she stopped taking her insulin. She presented to the hospital with severe acidosis. She was started on IV fluids and insulin drip. Patient be admitted to the hospital for further evaluation. Allergies No Known Allergies Allergy (Verified 07/12/23 00:43) Home Medications: Insulin Aspart [Novolog Flexpen] See Protocol SQ SEECOM 03/10/23 Insulin Degludec [Tresiba] 24 unit SQ BID 04/21/23 - Past Medical/Surgical History Diabetic: Yes -: Diabetes mellitus type 1 -: C section Psychosocial/ Personal History: Patient lives at home with family - Family History Mother Medical History: Diabetes - Social History Smoking Status: Former smoker Alcohol use: Yes CD- Drugs: Yes Caffeine use: Yes Review of Systems 10-point ROS is otherwise unremarkable Physical Examination - Vital Signs Temperature: 98 F (VITALS REVIEWED) - Physical Exam General: Alert, In no apparent distress, Oriented x3 HEENT: Atraumatic, PERRLA, Mucous membr. moist/pink, EOMI, Sclerae nonicteric Neck: Supple, 2+ carotid pulse no bruit, No LAD, Without JVD or thyroid abnormality Respiratory: Clear to auscultation bilaterally, Normal air movement Cardiovascular: Regular rate/rhythm, Normal S1 S2, Other (Tachycardic) Gastrointestinal: Normal bowel sounds, Soft and benign, Non-distended, No tenderness Musculoskeletal: No clubbing, No swelling, No tenderness Integumentary: No rashes Neurological: Normal gait, Normal speech, Normal strength at 5/5 x4 extr, Normal tone, Sensation intact, Cranial nerves 3-12 intact, Normal affect Lymphatics: No axilla or inguinal lymphadenopathy - Studies Laboratory Data (last 24 hrs) 11/28/23 11/28/23 15:52 15:52 WBC 15.00 H Hgb 14.5 Hct 44.4 Plt Count 500 H Sodium 131 L Potassium 3.9 BUN 14 Creatinine 1.10 H Glucose 493 H* Phosphorus 3.4 Magnesium 2.1 Total Bilirubin 0.6 AST 16 ALT 25 Alkaline Phosphatase 161 H Lipase 28 Assessment & Plan - Problems (Diagnosis) (1) DKA (diabetic ketoacidoses) Current Visit: No Status: Acute Qualifiers: Diabetes mellitus type: type 1 (2) T1DM (type 1 diabetes mellitus) Current Visit: No Status: Acute Qualifiers: Diabetes mellitus complication status: with ketoacidosis Diabetes mellitus complication detail: without coma Qualified Code(s): E10.10 - Type 1 diabetes mellitus with ketoacidosis without coma (3) Tobacco use Current Visit: No Status: Chronic - Plan 1. Continue with insulin drip 2. Continue with aggressive IV hydration 3. Monitor hemoglobin A1c 4. Blood sugars every hour 5. Check BMP every 4 hours 6. Field Services Director regarding blood sugars 7. Repeat acetone level in a.m. 8. GI DVT prophylaxis Discharge Plan: Home Plan to discharge in: 24 Hours - Advance Directives Does patient have a Living Will: No Does patient have a Durable POA for Healthcare: No - Code Status/Comfort Care Code Status Assessed: Yes Code Status: Full Code Critical Care: Yes Time Spent Managing PTS Care (In Minutes): 45
[2023-11-28] MEDS ORDERED: D5 0.45 NS 1,000 ML IV SCH (18:00)
[2023-11-28] MEDS ORDERED: ACETAMINOPHEN 500 MG TAB ONE (19:27)
[2023-11-28] MEDS ORDERED: NA CHLORIDE 0.9% 2,000 ML ONE (19:39)
[2023-11-28] MEDS: NA CHLORIDE 0.9% 1,000 ML IV SCH (19:40)
[2023-11-28 20:10] LABS: BUN Blood Urea Nitrogen 12 mg/dL (7-18); Glomerular Filtration Rate 79 ml/min (=/>90); Glucose Level 248 mg/dL (74-106); Potassium 4.1 mEq/L (3.5-5.1); Sodium Level 139 mEq/L (136-145)
[2023-11-28 20:12] LABS: Bicarbonate < 8 mEq/L (21-32)
[2023-11-28 20:53] VITALS: O2SAT 100; BMI 27.3
[2023-11-28] MEDS ORDERED: D5 0.45 NS 1,000 ML IV ONE (21:55)
[2023-11-28 23:31] LABS: BUN Blood Urea Nitrogen 10 mg/dL (7-18); Glomerular Filtration Rate 107 ml/min (=/>90); Glucose Level 188 mg/dL (74-106); Potassium 3.8 mEq/L (3.5-5.1); Sodium Level 135 mEq/L (136-145)
[2023-11-28 23:32] LABS: Bicarbonate < 8 mEq/L (21-32)
[2023-11-29] MEDS: D5 0.45 NS 1,000 ML IV SCH ×3 (00:08→08:08)
[2023-11-29] MEDS: NA CHLORIDE 0.9% 1,000 ML IV SCH (00:10)
[2023-11-29 01:37] LABS: Potassium 3.5 mEq/L (3.5-5.1)
[2023-11-29] MEDS ORDERED: NACHLORIDE 0.45% 1,000 ML IV ONE (03:54)
[2023-11-29] MEDS ORDERED: NACHLORIDE 0.45% 1,000 ML IV SCH (04:00)
[2023-11-29 04:42] VITALS: TEMP 97.8
[2023-11-29 04:55] LABS: Absolute Lymphocytes (CBC) 2.5 K/uL (0.7-4.9); Hematocrit 33.3 % (36.0-45.0); Lymphocytes % 22.3 % (15.3-44.8); MCV 90.8 fL (80-100); MPV 7.3 fL (7.6-11.3); Platelets 351 thou/uL (152-406); RBC Red Blood Cell Count 3.67 M/uL (3.86-4.86)
[2023-11-29 05:15] LABS: Magnesium 1.6 mg/dL (1.6-2.4)
[2023-11-29 05:15] LABS: BUN Blood Urea Nitrogen 9 mg/dL (7-18); Glomerular Filtration Rate 91 ml/min (=/>90); Glucose Level 201 mg/dL (74-106); Potassium 3.6 mEq/L (3.5-5.1); Sodium Level 135 mEq/L (136-145)
[2023-11-29 05:25] LABS: Bicarbonate < 8 mEq/L (21-32)
[2023-11-29] MEDS ORDERED: ACETAMINOPHEN 325 MG TABLET ONE (08:12)
[2023-11-29] MEDS ORDERED: D5 0.45 NS 1,000 ML IV ONE (08:12)
[2023-11-29] MEDS ORDERED: CEFTRIAXONE 1,000 MG in NA CHLORIDE 0.9% 50 ML IVPB SCH (09:00)
[2023-11-29] MEDS ORDERED: ENOXAPARIN 40 MG/0.4 ML SQ SCH (09:00)
[2023-11-29 09:06] LABS: Potassium 3.7 mEq/L (3.5-5.1)
[2023-11-29] MEDS ORDERED: CEFTRIAXONE 1000 MG/VIAL ONE (09:28)
[2023-11-29] MEDS ORDERED: NA CHLORIDE 0.9% 50 ML ONE (09:29)
[2023-11-29] MEDS ORDERED: INSULIN GLARGINE 100 UNIT/ML SQ ONE ×2 (09:29→09:40)
[2023-11-29] MEDS ORDERED: MAGNESIUM SULFATE 1 gm IVPB 1 GM/100 ML BAG IV ONE ×2 (10:49→11:39)
[2023-11-29] MEDS ORDERED: POTASSIUM CL SA 10 MEQ TAB PO ONE ×2 (10:50→11:39)
[2023-11-29] MEDS ORDERED: dexAMETHasone 10 MG/ML VIAL ONE (11:59)
[2023-11-29] MEDS ORDERED: METOCLOPRAMIDE 10 MG/2mL INJ ONE (11:59)
[2023-11-29] MEDS ORDERED: NA CHLORIDE 0.9% 1,000 ML ONE (12:00)
[2023-11-29] MEDS ORDERED: INFLUENZA VACCINE (for 6+ mo) 0.5 ML DOSE IMVAC ONE (13:00)
[2023-11-29 13:12] VITALS: BP 97/65
[2023-11-29 15:16] LABS: Potassium 3.4 mEq/L (3.5-5.1)
--- NOTE | 2023-12-04 13:51 | EKG ---
Test Date: 2023-11-28 Test Time: 15:52:50 Installer Apprentice: MELANIA MEASUREMENT RESULTS: Intervals: Rate: 97 NV: 166 QRSD: 88 QT: 380 QTc: 482 [place]: P: 80 NV: 166 QRS: 81 T: 77 INTERPRETIVE STATEMENTS: Normal sinus rhythm Right atrial enlargement Prolonged QT Abnormal ECG Compared to ECG 11/15/2023 16:09:14 Atrial abnormality now present Prolonged QT interval now present Ventricular premature complex(es) no longer present Electronically Signed On 12-04-23 13:29:57 NURSING MANAGER by Eduard Landin
== END 2023-11-29 15:39 | disposition home or self-care (01) | DRG 639 ==
LOC: ER 15:32 → ERHOLD 17:45
PROVIDERS: ADMIT Hospitalist; ATTEND Hospitalist
DX: E10.10 Type 1 diabetes mellitus with ketoacidosis without coma (principal); T38.3X6A Underdosing of insulin and oral hypoglycemic [antidiabetic] drugs, initial encounter; Z79.4 Long term (current) use of insulin; Z91.128 Patient's intentional underdosing of medication regimen for other reason; Z91.148 Patient's other noncompliance with medication regimen for other reason; Z87.891 Personal history of nicotine dependence
CPT/HCPCS: 36415; 80048; 80061; 80076; 82310; 82805; 82947; 83036; 83690; 83735; 84100; 85025; 93005; J0696; J1100; J1815; J2405; J2550; J2765; J3475; J3480; J7030; J7799

== ENCOUNTER 2024-02-16 10:35 | Emergency (ER) | payer SELFPAY ==
[2024-02-16] MEDS ORDERED: ACETAMINOPHEN 500 MG TAB ONE (11:28)
[2024-02-16] MEDS ORDERED: NA CHLORIDE 0.9% 1,000 ML ONE ×2 (11:35→13:05)
[2024-02-16 11:56] LABS: Absolute Eosinophils 0.1 K/uL (0-0.5); Absolute Lymphocytes (CBC) 1.5 K/uL (0.7-4.9); Absolute Monocytes 0.3 K/uL (0.1-1.3); Absolute Neutrophil 5.3 K/uL (1.8-8.0); Basophils % 0.7 % (0-1.3); Eosinophils % 1.6 % (0-4.4); Hematocrit 44.5 % (36.0-45.0); Hemoglobin 14.6 g/dL (12.0-15.0); Lymphocytes % 20.9 % (15.3-44.8); MCH 29.8 pg (27.0-35.0); MCHC 32.9 g/dL (32.0-36.0); MCV 90.6 fL (80-100); MPV 7.1 fL (7.6-11.3); Monocytes % 4.3 % (3.3-12.3); Neutrophils % 72.5 % (41.7-73.7); Platelets 372 thou/uL (152-406); RBC Red Blood Cell Count 4.91 M/uL (3.86-4.86); Red Cell Distribution Width 13.2 % (12.1-15.2)
[2024-02-16 12:01] LABS: Specific Gravity > 1.030 (1.005-1.030)
[2024-02-16 12:09] LABS: Specific Gravity > 1.030 (1.005-1.030); Urine Bilirubin NEGATIVE (Negative); Urine Blood Negative (Negative); Urine Clarity Clear (Clear); Urine Color Colorless (Yellow); Urine Glucose 4+ (Over) (Negative); Urine Ketones 3+ (Negative); Urine Nitrite NEGATIVE (Negative); Urine Protein NEGATIVE (Negative); Urine Urobilinogen Normal (Normal)
[2024-02-16 12:10] LABS: Urine Micro Reflex YN NO BILL MICROSCOPIC
[2024-02-16 12:12] LABS: Urine Bacteria None Seen /HPF (<20); Urine Culture Reflex Order NOT NEEDED; Urine RBC <5 /HPF (None Seen); Urine WBC <5 /HPF (<5)
[2024-02-16 12:15] LABS: Albumin 3.3 g/dL (3.4-5.0); Albumin/Globulin Ratio 0.8 (1.1-1.8); Anion Gap 16.9 mEq/L (5.0-15.0); Bilirubin Direct 0.1 mg/dL (0-0.2); Bilirubin Indirect, Calculated 0.4 mg/dL (0.2-0.8); Bilirubin Total 0.5 mg/dL (0.2-1.0); Globulin 4.3 g/dL (2.3-3.5); Magnesium 1.7 mg/dL (1.6-2.4); Phosphorus 2.8 mg/dL (2.5-4.9); Potassium 3.9 mEq/L (3.5-5.1); Protein, Total 7.6 g/dL (6.4-8.2)
[2024-02-16 12:26] LABS: BETA HYDROXYBUTYRATE 1.46 mmol/L (0.02-0.27)
[2024-02-16] MEDS ORDERED: INSULIN REGULAR (HUMAN) 100 UNIT/ML ONE (13:04)
[2024-02-16 15:58] LABS: Anion Gap 11.9 mEq/L (5.0-15.0); Potassium 3.9 mEq/L (3.5-5.1)
--- NOTE | 2024-02-16 16:01 | ER ---
Nurse's Notes [facility] Name: Rosalie Parekh Age: 28 yrs Sex: Female : 1995 Arrival Date: 02/16/2024 Time: 10:35 Bed 16 Private MD: Diagnosis: Type 1 diabetes mellitus with hyperglycemia Presentation: 02/15 10:42 Chief complaint: Patient states: Blood sugar reads HI for the past 3 days. + dizzy, no ll1 N/V or fever. Coronavirus screen: Client denies travel out of the [place] in the last 14 days. At this time, the client does not indicate any symptoms associated with coronavirus-19. Ebola Screen: Patient denies travel to an Ebola-affected area in the 21 days before illness onset. Initial Sepsis Screen: Does the patient meet any 2 criteria? No. Patient's initial sepsis screen is negative. Does the patient have a suspected source of infection? No. Patient's initial sepsis screen is negative. Risk Assessment: Do you want to hurt yourself or someone else? Patient reports no desire to harm self or others. Onset of symptoms was February 14, 2024. 10:42 Method Of Arrival: Ambulatory ll1 10:42 Acuity: TANYA 2 ll1 Triage Assessment: 10:44 General: Appears uncomfortable, Behavior is calm, cooperative, appropriate for age. ll1 General: Reports chills for fatigue for. Pain: Complains of pain in head Pain currently is 9 out of 10 on a pain scale. Quality of pain is described as aching, throbbing. GI:. 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 - Infectious Disease History:: Denies. - Social history:: Smoking status: Reported history of juuling and/or vaping. Screenin:42 [facility] ED Fall Risk Assessment (Adult) History of falling in the last 3 months, tl4 including since admission No falls in past 3 months (0 pts) Confusion or Disorientation No (0 pts) Intoxicated or Sedated No (0 pts) Impaired Gait No (0 pts) Mobility Assist Device Used No (0 pt) Altered Elimination No (0 pt) Score/Fall Risk Level 0 - 2 = Low Risk Oriented to surroundings, Maintained a safe environment, Educated pt \T\ family on fall prevention, incl call for assistance when getting out of bed, Assessed \T\ reinforced patient's understanding of fall precautions, Hourly rounding (assess needs \T\ fall precautionary measures) done, Used ambulatory aids as needed (educated on \T\ assisted with), Used gait belt as appropriate. Abuse screen: Denies threats or abuse. Denies injuries from another. Nutritional screening: No deficits noted. Tuberculosis screening: No symptoms or risk factors identified. Assessment: 12:40 General: Appears uncomfortable, Behavior is calm, cooperative. Pain: Complains of pain tl4 in face and scalp. Neuro: Level of Consciousness is awake, alert, obeys commands, Oriented to person, place, time, situation, Moves all extremities. Gait is steady, Speech is normal, Facial symmetry appears normal. Cardiovascular: Capillary refill < 3 seconds Patient's skin is warm and dry. Respiratory: Airway is patent Respiratory effort is even, unlabored, Respiratory pattern is regular, symmetrical, Breath sounds are clear bilaterally. GI: Abdomen is non-distended. : No signs and/or symptoms were reported regarding the genitourinary system. EENT: No signs and/or symptoms were reported regarding the EENT system. Derm: No signs and/or symptoms reported regarding the dermatologic system. Musculoskeletal: No signs and/or symptoms reported regarding the musculoskeletal system. 13:12 Reassessment: Patient and/or family updated on plan of care and expected duration. Pain tl4 level reassessed. Patient is alert, oriented x 3, equal unlabored respirations, skin warm/dry/pink. Patient states symptoms have improved. 14:36 Reassessment: Patient and/or family updated on plan of care and expected duration. Pain tl4 level reassessed. Patient is alert, oriented x 3, equal unlabored respirations, skin warm/dry/pink. Patient states symptoms have improved. 15:28 Reassessment: No changes from previously documented assessment. Patient and/or family tl4 updated on plan of care and expected duration. Pain level reassessed. Patient is alert, oriented x 3, equal unlabored respirations, skin warm/dry/pink. Patient states symptoms have improved. Vital Signs: 10:42 BP 134 / 90; Pulse 119; Resp 18; Temp 97.5; Pulse Ox 97% ; Weight 70.31 kg; Height 5 ll1 ft. 2 in. ; Pain 9/10; 12:41 BP 103 / 65; Pulse 88; Resp 16; Pulse Ox 98% on R/A; Pain 6/10; tl4 13:13 BP 110 / 81; Pulse 97; Resp 15; Pulse Ox 98% on R/A; Pain 4/10; tl4 14:00 BP 115 / 82; Pulse 105; Resp 16; Pulse Ox 100% ; tl4 15:00 BP 119 / 84; Pulse 102; Resp 15; Pulse Ox 100% on R/A; tl4 16:39 BP 111 / 86; Pulse 93; Resp 15; Temp 97.9(O); Pulse Ox 100% on R/A; Pain 0/10; tl4 10:42 Body Mass Index 28.35 (70.31 kg, 157.48 cm) ll1 10:42 Pain Scale: Adult ll1 12:41 Pain Scale: Adult tl4 13:13 Pain Scale: Adult tl4 16:39 Pain Scale: Adult tl4 ED Course: 10:39 Patient arrived in ED. im 10:39 Liberty Brandt PA-C is PHCP. sb4 10:39 Leonid Kim MD is Attending Physician. sb4 10:42 Arm band placed on Patient placed in an exam room, on a stretcher. ll1 10:44 Triage completed. ll1 11:05 UAM Sent. jr12 11:05 Test, Urine Sent. jr12 11:49 Initial lab(s) drawn, by mi, sent to lab. Inserted saline lock: 20 gauge in right em1 forearm, using aseptic technique. Blood collected. 12:43 Patient has correct armband on for positive identification. Placed in gown. Bed in low tl4 position. Call light in reach. Side rails up X2. Provided Education on: ED process. Client placed on continuous cardiac and pulse oximetry monitoring. NIBP monitoring applied. lunchroom monitor on. Door closed. Noise minimized. Lights dimmed. Moved to private room. Warm blanket given. 12:44 No provider procedures requiring assistance completed. tl4 14:32 BMP Sent. tl4 14:36 Diet: Patient given snack. Tolerated well. tl4 15:27 BMP Sent. tl4 16:40 IV discontinued, intact, bleeding controlled, No redness/swelling at site. Pressure tl4 dressing applied. Administered Medications: 11:34 Drug: Acetaminophen PO 1000 mg PO once Route: PO; rs5 12:39 Follow up: Response: No adverse reaction; Pain is decreased tl4 11:54 Drug: NS 0.9% IV 1000 ml IV at 1000 ml once Route: IV; Rate: 1000 ml; Site: right db antecubital; 12:39 Follow up: Response: No adverse reaction; IV Status: Completed infusion; IV Intake: tl4 1000ml 12:38 CANCELLED (Physician Discretion): insulin units Sub-Q once sb4 13:11 Drug: NS 0.9% IV 1000 ml IV at 1 bolus Per protocol; 1000 mL bolus Route: IV; Rate: 1 tl4 bolus; Site: right antecubital; Delivery: Primary tubing; 14:32 Follow up: Response: No adverse reaction; IV Status: Completed infusion; IV Intake: tl4 1000ml 13:11 Drug: Insulin Regular Human Sub-Q 10 units Sub-Q once {Co-Signature: ll1 (Nelida Combs4 RN).} Route: Sub-Q; Site: left upper arm; 14:32 Follow up: Response: No adverse reaction tl4 16:30 Drug: Insulin Glargine Sub-Q 30 units Sub-Q once {Co-Signature: db Sapphire Koch4 RN).} Route: Sub-Q; Site: left upper arm; 16:39 Follow up: Response: No adverse reaction; Medication administered at discharge. tl4 Medication: 12:42 VIS not applicable for this client. tl4 Intake: 12:39 IV: 1000ml; Total: 1000ml. tl4 14:32 IV: 1000ml; Total: 2000ml. tl4 Outcome: 16:00 Discharge ordered by MD. sb4 16:40 Discharged to home ambulatory, tl4 16:40 Condition: stable 16:40 Discharge instructions given to patient, Instructed on discharge instructions, follow up and referral plans. Demonstrated understanding of instructions, follow-up care, 16:41 Patient left the ED. tl4 Signatures: Chris Boo em1 Nelida Combs RN RN [facility] [place] RN RN Liberty Ramachandran THUAN PA-C sb4 Hank You, RN RN rs5 Kimberly Zuniga Jess jr12 Torey Carney RN RN tl4 Nelida Combs RN ll1 Jaya, Sapp[place] HAUSER db
--- NOTE | 2024-02-16 16:01 | EDPHYS ---
Physician Documentation [facility] Name: Rosalie Parekh Age: 28 yrs Sex: Female : 1995 Arrival Date: 02/16/2024 Time: 10:35 Bed 16 Private MD: ED Physician Leonid Kim HPI: 02/15 10:50 This 28 yrs old Female presents to ER via Ambulatory with complaints of High Blood sb4 Sugar. 10:50 Patient has been out of her long-acting insulin for "some time "and has only been using sb4 her short acting insulin. States that her blood sugar has been over 300 for the past 3 days and she cannot get it down. She denies any nausea or vomiting just reports thirst and headache. 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 - Infectious Disease History:: Denies. - Social history:: Smoking status: Reported history of juuling and/or vaping. ROS: 10:51 Constitutional: Negative for fever, chills, and weight loss, sb4 10:51 Neuro: Positive for dizziness, headache, 10:51 Endocrine: Positive for polydipsia, hyperglycemia, 10:51 All other systems are negative, Exam: 10:51 Constitutional: This is a well developed, well nourished patient who is awake, alert, sb4 and in no acute distress. Head/Face: Normocephalic, atraumatic. Eyes: Extra-ocular motions intact. Periorbital areas with no swelling, redness, or edema. ENT: Mucous membranes moist. Cardiovascular: Regular rate and rhythm with a normal S1 and S2. Respiratory: Lungs have equal breath sounds bilaterally, clear to auscultation and percussion. No rales, rhonchi or wheezes noted. No increased work of breathing, no retractions or nasal flaring. Abdomen/GI: Soft, non-tender, no distension. Skin: Warm, dry with normal turgor. Normal color with no rashes, no lesions, and no evidence of cellulitis. MS/ Extremity: Pulses equal, no cyanosis. Neurovascular intact. Full, normal range of motion. Neuro: Awake and alert, GCS 15, oriented to person, place, time, and situation. Motor strength 5/5 in all extremities. Sensory grossly intact. Vital Signs: 10:42 BP 134 / 90; Pulse 119; Resp 18; Temp 97.5; Pulse Ox 97% ; Weight 70.31 kg; Height 5 ll1 ft. 2 in. ; Pain 9/10; 12:41 BP 103 / 65; Pulse 88; Resp 16; Pulse Ox 98% on R/A; Pain 6/10; tl4 13:13 BP 110 / 81; Pulse 97; Resp 15; Pulse Ox 98% on R/A; Pain 4/10; tl4 14:00 BP 115 / 82; Pulse 105; Resp 16; Pulse Ox 100% ; tl4 15:00 BP 119 / 84; Pulse 102; Resp 15; Pulse Ox 100% on R/A; tl4 16:39 BP 111 / 86; Pulse 93; Resp 15; Temp 97.9(O); Pulse Ox 100% on R/A; Pain 0/10; tl4 10:42 Body Mass Index 28.35 (70.31 kg, 157.48 cm) ll1 10:42 Pain Scale: Adult ll1 12:41 Pain Scale: Adult tl4 13:13 Pain Scale: Adult tl4 16:39 Pain Scale: Adult tl4 MDM: 10:39 Patient medically screened. sb4 10:51 Differential diagnosis: DKA, hyperglycemia. sb4 13:36 ED course: patient feels better,does not want to be admitted. will finish fluids and sb4 repeat BMP to ensure improvement. 16:00 Data reviewed: vital signs, nurses notes, lab test result(s), radiologic studies, I sb4 have discussed the patient's presentation/case with the attending Emergency Department Physician; and as a result, I will discharge patient. Consideration of Admission/Observation Escalation of care including admission/observation considered. Counseling: I had a detailed discussion with the patient and/or guardian regarding the historical points, exam findings, and any diagnostic results supporting the discharge/admit diagnosis, lab results, radiology results, to return to the emergency department if symptoms worsen or persist or if there are any questions or concerns that arise at home. 02/15 10:41 Order name: BETA HYDROXYBUTYRATE; Complete Time: 12:27 sb4 02/15 10:41 Order name: Basic Metabolic Panel; Complete Time: 12:27 sb4 02/15 10:41 Order name: CBC with Diff; Complete Time: 11:59 sb4 02/15 10:41 Order name: Hepatic Function; Complete Time: 12:27 sb4 02/15 10:41 Order name: Lipase; Complete Time: 12:27 sb4 02/15 10:41 Order name: Magnesium; Complete Time: 12:27 sb4 02/15 10:41 Order name: Phosphorus; Complete Time: 12: sb4 02/15 10:45 Order name: Test, Urine; Complete Time: 12:02 sb4 02/15 10:45 Order name: UAM; Complete Time: 12:13 sb4 02/15 13:37 Order name: BMP; Complete Time: 15:59 sb4 02/15 10:41 Order name: Cardiac monitoring; Complete Time: 12:06 sb4 02/15 10:41 Order name: IV Saline Lock; Complete Time: 11:49 sb4 02/15 10:41 Order name: O2 Per Protocol; Complete Time: 12:06 sb4 02/15 10:41 Order name: O2 Sat Monitoring; Complete Time: 12:06 sb4 02/15 15:09 Order name: Labs - recollect needed: green top; Complete Time: 15:27 bc6 Administered Medications: 11:34 Drug: Acetaminophen PO 1000 mg PO once Route: PO; rs5 12:39 Follow up: Response: No adverse reaction; Pain is decreased tl4 11:54 Drug: NS 0.9% IV 1000 ml IV at 1000 ml once Route: IV; Rate: 1000 ml; Site: right db antecubital; 12:39 Follow up: Response: No adverse reaction; IV Status: Completed infusion; IV Intake: tl4 1000ml 12:38 CANCELLED (Physician Discretion): insulin [id number] units Sub-Q once sb4 13:11 Drug: NS 0.9% IV 1000 ml IV at 1 bolus Per protocol; 1000 mL bolus Route: IV; Rate: 1 tl4 bolus; Site: right antecubital; Delivery: Primary tubing; 14:32 Follow up: Response: No adverse reaction; IV Status: Completed infusion; IV Intake: tl4 1000ml 13:11 Drug: Insulin Regular Human Sub-Q 10 units Sub-Q once {Co-Signature: ll1 (Nelida Combs tl4 RN).} Route: Sub-Q; Site: left upper arm; 14:32 Follow up: Response: No adverse reaction tl4 16:30 Drug: Insulin Glargine Sub-Q 30 units Sub-Q once {Co-Signature: db ([place] tl4 RN).} Route: Sub-Q; Site: left upper arm; 16:39 Follow up: Response: No adverse reaction; Medication administered at discharge. tl4 Disposition Summary: 02/16/24 16:00 Discharge Ordered Notes: Location: Home sb4 Problem: new sb4 Symptoms: have improved sb4 Condition: Stable sb4 Diagnosis - Type 1 diabetes mellitus with hyperglycemia sb4 Followup: sb4 - With: Emergency Department - When: As needed - Reason: Trouble breathing, Worsening of condition Discharge Instructions: - Type 1 Diabetes Mellitus, Self-Care, Adult, [id number] sb4 - Discharge Summary Sheet tl4 Forms: - Thank You Letter sb4 - Patient Portal Instructions sb4 - Leadership Thank You Letter sb4 - Work release form tl4 Addendum: 02/18/2024 07:11 I was immediately available for consultation during this patient's visit. I did not e c2 personally see the patient or discuss the patient with the MALENA. . Signatures: Dispatcher [employer] Nelida Zhang, RN RN ll1 [place], RN RN db Liberty Brandt PA-C PAKrystyna sb4 Hank You RN RN rs5 Radha Mejia 6 Leonid Kim MD MD ec2 Torey Carney RN RN tl4 Nelida Combs RN ll1 [place] RN Corrections: (The following items were deleted from the chart) 02/15 10:51 10:41 NPO ordered. sb4 sb4 12:38 12:28 Insulin Glargine Sub-Q 30 units Sub-Q once ordered. sb4 sb4
[2024-02-16] MEDS ORDERED: INSULIN GLARGINE 100 UNIT/ML SQ ONE (16:25)
[2024-02-16 18:36] VITALS: BP 111/86; TEMP 97.9; O2SAT 100
== END 2024-02-16 16:41 | disposition home or self-care (01) ==
LOC: ER 10:35
DX: E10.65 Type 1 diabetes mellitus with hyperglycemia (principal)
CPT/HCPCS: 36415; 80048; 80076; 81001; 81025; 82010; 83690; 83735; 84100; 85025; 96360; 96361; 96372; 99285; J1815; J7030

== ENCOUNTER 2024-03-02 04:11 | Emergency (ER) | payer SELFPAY ==
[2024-03-02] MEDS ORDERED: CEFTRIAXONE 1000 MG/VIAL ONE (04:36)
[2024-03-02] MEDS ORDERED: LIDOCAINE 1% 20 ML MDV ONE (04:36)
[2024-03-02] MEDS ORDERED: ONDANSETRON 4 MG/2 ML VIAL ONE (04:36)
[2024-03-02] MEDS ORDERED: CODEINE 30MG/APAP 300MG TAB ONE (04:37)
[2024-03-02] MEDS ORDERED: INSULIN REGULAR (HUMAN) 100 UNIT/ML ONE (04:37)
[2024-03-02] MEDS ORDERED: SMZ./TMP. 800/160 MG TABLET ONE (04:37)
[2024-03-02] MEDS ORDERED: NA CHLORIDE 0.9% 2,000 ML ONE (04:38)
[2024-03-02] MEDS ORDERED: NA CHLORIDE 0.9% 50 ML ONE (04:39)
[2024-03-02 05:14] LABS: Barbiturates NEGATIVE (NEGATIVE); Benzodiazepines NEGATIVE (NEGATIVE); Cocaine NEGATIVE (NEGATIVE); METHAMPHETAM NEGATIVE (NEGATIVE); Methadone NEGATIVE (NEGATIVE); Opiates NEGATIVE (NEGATIVE); Phencyclidine NEGATIVE (NEGATIVE); THC Cannibis POSITIVE (NEGATIVE)
[2024-03-02 05:19] LABS: Absolute Eosinophils 0.2 K/uL (0-0.5); Absolute Lymphocytes (CBC) 0.9 K/uL (0.7-4.9); Absolute Monocytes 0.6 K/uL (0.1-1.3); Absolute Neutrophil 6.4 K/uL (1.8-8.0); Basophils % 0.2 % (0-1.3); Eosinophils % 2.3 % (0-4.4); Hematocrit 38.9 % (36.0-45.0); Hemoglobin 13.2 g/dL (12.0-15.0); Lymphocytes % 11.1 % (15.3-44.8); MCH 30.8 pg (27.0-35.0); MCV 90.6 fL (80-100); MPV 7.4 fL (7.6-11.3); Monocytes % 6.9 % (3.3-12.3); Neutrophils % 79.5 % (41.7-73.7); Platelets 301 thou/uL (152-406); RBC Red Blood Cell Count 4.29 M/uL (3.86-4.86); Red Cell Distribution Width 13.3 % (12.1-15.2)
[2024-03-02 05:28] LABS: Albumin 2.4 g/dL (3.4-5.0); Albumin/Globulin Ratio 0.7 (1.1-1.8); Anion Gap 17.8 mEq/L (5.0-15.0); Bilirubin Direct 0.1 mg/dL (0-0.2); Bilirubin Indirect, Calculated 0.6 mg/dL (0.2-0.8); Bilirubin Total 0.7 mg/dL (0.2-1.0); Globulin 3.6 g/dL (2.3-3.5); Magnesium 1.6 mg/dL (1.6-2.4); Potassium 3.8 mEq/L (3.5-5.1)
[2024-03-02 05:43] LABS: Specific Gravity > 1.030 (1.005-1.030); Sqamous Epithelial <5 /HPF (None Seen); Urine Bacteria <20 /HPF (<20); Urine Bilirubin NEGATIVE (Negative); Urine Blood Negative (Negative); Urine Clarity Clear (Clear); Urine Color Colorless (Yellow); Urine Culture Reflex Order NOT NEEDED; Urine Glucose 4+ (Over) (Negative); Urine Ketones 4+ (Over) (Negative); Urine Micro Reflex YN NO BILL MICROSCOPIC; Urine Mucus Slight /HPF (None Seen); Urine Nitrite NEGATIVE (Negative); Urine Protein NEGATIVE (Negative); Urine RBC <5 /HPF (None Seen); Urine Urobilinogen Normal (Normal); Urine WBC <5 /HPF (<5)
[2024-03-02 05:44] LABS: Specific Gravity > 1.030 (1.005-1.030)
[2024-03-02 08:52] LABS: Anion Gap 15.1 mEq/L (5.0-15.0); Potassium 4.1 mEq/L (3.5-5.1)
--- NOTE | 2024-03-02 10:11 | ER ---
Nurse's Notes [facility] Name: Rosalie Parekh Age: 28 yrs Sex: Female : 1995 Arrival Date: 03/02/2024 Time: 04:11 Bed 6 Private MD: Diagnosis: Diabetes mellitus due to underlying condition with hyperglycemia;Diabetes mellitus due to underlying condition with ketoacidosis without coma Presentation: 03/02 04:15 Chief complaint: EMS states: 28 year old female reports sugar levels above 500 for over ha1 a week. Nausea and vomiting. glucose level at 458. Coronavirus screen: Vaccine status: Patient reports being unvaccinated. Ebola Screen: No symptoms or risks identified at this time. Initial Sepsis Screen: Does the patient meet any 2 criteria? No. Patient's initial sepsis screen is negative. Does the patient have a suspected source of infection? No. Patient's initial sepsis screen is negative. Risk Assessment: Do you want to hurt yourself or someone else? Patient reports no desire to harm self or others. Onset of symptoms was March 02, 2024. 04:15 Method Of Arrival: EMS: [facility] ha1 04:15 Acuity: TANYA 3 ha1 Triage Assessment: 04:14 General: Appears comfortable, Behavior is calm, cooperative. Pain: Complains of pain in ha1 lateral aspect of left fingers Pain does not radiate. Pain currently is 5 out of 10 on a pain scale. Quality of pain is described as aching. Neuro: Level of Consciousness is awake, alert, obeys commands, Oriented to person, place, time, situation. Cardiovascular: Capillary refill < 3 seconds Patient's skin is warm and dry. Respiratory: Airway is patent Respiratory effort is even, unlabored, Respiratory pattern is regular, symmetrical. GI: Abdomen is flat, non-distended, Bowel sounds present X 4 quads. Reports nausea, vomiting, elevated sugar levels. : No signs and/or symptoms were reported regarding the genitourinary system. Derm: Skin is pink, warm \T\ dry. Musculoskeletal: Circulation, motion, and sensation intact. Range of motion: intact in all extremities. Historical: - Allergies: 04:23 No Known Allergies; ha1 - PMHx: 04:23 Anxiety; diabetes mellitus; ha1 - PSHx: 04:23 section; ha1 - Immunization history:: Adult Immunizations up to date. - Infectious Disease History:: Denies. - Social history:: Smoking status: Reported history of juuling and/or vaping. - Family history:: not pertinent. Screenin:25 [facility] ED Fall Risk Assessment (Adult) History of falling in the last 3 months, ha1 including since admission No falls in past 3 months (0 pts) Confusion or Disorientation No (0 pts) Intoxicated or Sedated No (0 pts) Impaired Gait No (0 pts) Mobility Assist Device Used No (0 pt) Altered Elimination No (0 pt) Score/Fall Risk Level 0 - 2 = Low Risk Oriented to surroundings, Maintained a safe environment, Hourly rounding (assess needs \T\ fall precautionary measures) done. Abuse screen: Denies threats or abuse. Denies injuries from another. Nutritional screening: No deficits noted. Tuberculosis screening: No symptoms or risk factors identified. Assessment: 04:14 Reassessment: see triage assessment. ha1 05:15 Reassessment: Patient and/or family updated on plan of care and expected duration. Pain ha1 level reassessed. Patient is alert, oriented x 3, equal unlabored respirations, skin warm/dry/pink. 06:00 Reassessment: Patient and/or family updated on plan of care and expected duration. Pain ha1 level reassessed. Patient is alert, oriented x 3, equal unlabored respirations, skin warm/dry/pink. Vital Signs: 04:15 BP 115 / 74; Pulse 101; Resp 18 S; Temp 97.9; Pulse Ox 100% on R/A; Weight 70.31 kg; ha1 Height 5 ft. 2 in. ; 05:00 BP 117 / 80; Pulse 90; Resp 17 S; Pulse Ox 100% on R/A; ha1 06:00 BP 102 / 73; Pulse 93; Resp 17 S; Pulse Ox 96% on R/A; ha1 09:42 BP 107 / 81; Pulse 99; Resp 18; Pulse Ox 100% on R/A; ld1 04:15 Body Mass Index 28.35 (70.31 kg, 157.48 cm) ha1 Ruben Coma Score: 08:31 Eye Response: spontaneous(4). Motor Response: obeys commands(6). Verbal Response: sp4 oriented(5). Total: 15. ED Course: 04:14 Patient arrived in ED. wm 04:14 Patient has correct armband on for positive identification. Bed in low position. Call ha1 light in reach. Side rails up X 1. 04:14 Client placed on continuous cardiac and pulse oximetry monitoring. NIBP monitoring ha1 applied. patient monitor on. 04:14 Arm band placed on right wrist. ha1 04:17 Orville Ruvalcaba MD is Attending Physician. sp4 04:23 Triage completed. ha1 04:27 Maintain EMS IV. Dressing intact. Good blood return noted. Site clean \T\ dry. Gauge \T\ murrell 1 site: 20 gauge LAC. 04:48 Lactate w/ 2H reflex if indic. Sent. oe 04:48 Test, Urine Sent. oe 04:48 Urine Drug Screen Sent. oe 04:48 Urinalysis W/Microscopic Sent. oe 04:48 Magnesium Sent. oe 04:48 LFT's Sent. oe 04:48 CBC with Diff Sent. oe 04:48 Basic Metabolic Panel Sent. oe 04:48 Urine collected: clean catch specimen, rubina colored. oe 07:34 Nidia Pacheco, RN is Primary Nurse. ap3 08:34 BMP Sent. ld1 10:10 Attending Physician role handed off by Orville Ruvalcaba MD rn 10:10 Isai Narayanan MD is Attending Physician. rn 10:18 No provider procedures requiring assistance completed. IV discontinued, intact, ld1 bleeding controlled, No redness/swelling at site. Administered Medications: 05:06 Drug: NS 0.9% IV 1000 ml IV at 1 bolus Per protocol; 1000 mL bolus Route: IV; Rate: 1 jw7 bolus; Site: left antecubital; 05:06 Drug: NS 0.9% IV 1000 ml IV at 125 ml/hr continuous Route: IV; Rate: 125 ml/hr; Site: jw7 left antecubital; 05:06 Drug: Insulin Regular Human IVP 10 units IVP once {Co-Signature: ha1 (Fernanda Strange RN).} Route: IVP; Site: left antecubital; 06:00 Follow up: Response: No adverse reaction; Blood sugar is lowered ha1 05:06 Drug: Trimethoprim-Sulfamethoxazole PO (160 mg-800 mg (DS) 1 tablet PO once Route: PO; jw7 06:00 Follow up: Response: No adverse reaction ha1 05:06 Drug: Rocephin - Rocephin (cefTRIAXone) IVPB 1 grams IVPB once over 30 mins; (mix in 50 jw7 mL NS) Route: IVPB; Infused Over: 30 mins; Site: left antecubital; 05:30 Follow up: Response: No adverse reaction; IV Status: Completed infusion; IV Intake: [id number] 05:06 Drug: Acetaminophen-Codeine PO (300 mg-30 mg) 2 tabs PO once; RASS on ADMIN: Combtv4, jw7 Very Agttd3, Agttd2, Rstlss1, AlertClm0, Drwsy-1, Lt Sdtn-2, Mod Sdtn-3, Dp Sdtn-4, UnArsble-5 Route: PO; 06:10 Follow up: Response: No adverse reaction; Marked relief of symptoms; Pain is decreased ha1 05:06 Drug: Ondansetron IVP 4 mg IVP once; over 2 minutes Route: IVP; Site: left antecubital; jw7 06:00 Follow up: Response: No adverse reaction; Marked relief of symptoms ha1 05:30 Drug: Lidocaine Infiltration (1 %) 20 ml 20 ml Infiltration once; to bedside {Note: ld1 Administered by Dr. Ruvalcaba .} Volume: 20 ml; Route: Infiltration; Medication: 04:28 VIS not applicable for this client. ha1 Intake: 05:30 IV: 50ml; Total: 50ml. ha1 Outcome: 10:11 Discharge ordered by . rn 10:19 Discharged to home ambulatory, ld1 10:19 Condition: stable 10:19 Discharge instructions given to patient, Instructed on discharge instructions, follow up and referral plans. Demonstrated understanding of instructions, follow-up care, medications, Prescriptions given X 2, 10:19 Patient left the ED. ld1 Signatures: Isai Narayanan MD MD rn Espinosa, Orlando oe Prokisch, Amanda, RN RN ap3 Nneka Johnston RN RN ld1 Sheyla Noe Jodi, RN RN jw7 Fernanda Strange, RN MURTAZA ha1 Orville Ruvalcaba MD MD sp4 Fernanda Strange RN ha1 Corrections: (The following items were deleted from the chart) 05:01 04:48 LIPASE+C.LAB.JASE drawn and sent. oe EDMS
--- NOTE | 2024-03-02 10:11 | EDPHYS ---
Physician Documentation [facility] Name: Rosalie Parekh Age: 28 yrs Sex: Female : 1995 Arrival Date: 03/02/2024 Time: 04:11 Bed 6 Private MD: ED Physician Isai Narayanan HPI: 03/02 04:17 This 28 yrs old Female presents to ER via Unassigned with complaints of High sp4 Blood Sugar. 07:02 Elevated blood sugar . sp4 08:31 Patient presents with EMS with nausea vomiting feeling unwell and elevated blood sugar sp4 up to 500. Patient is known to have diabetes mellitus type 1. She is not able to purchase her insulin secondary to lack of insurance. Patient also has a left index finger paronychia on arrival.. Historical: - Allergies: 04:23 No Known Allergies; ha1 - PMHx: 04:23 Anxiety; diabetes mellitus; ha1 - PSHx: 04:23 section; ha1 - Immunization history:: Adult Immunizations up to date. - Infectious Disease History:: Denies. - Social history:: Smoking status: Reported history of juuling and/or vaping. - Family history:: not pertinent. ROS: 08:31 Constitutional: Negative for fever, chills, and weight loss, positive nausea and sp4 generalized weakness positive feeling unwell positive left index finger paronychia 08:31 All other systems are negative, Exam: 08:31 Constitutional: This is a well developed, well nourished patient who is awake, alert, sp4 and in no acute distress. Head/Face: Normocephalic, atraumatic. Eyes: Pupils equal round and reactive to light, extra-ocular motions intact. Lids and lashes normal. Conjunctiva and sclera are not injected. Cornea within normal limits. Periorbital areas with no swelling, redness, or edema. ENT: Nares patent. No nasal discharge, no septal abnormalities noted. Tympanic membranes are normal and external auditory canals are clear. Oropharynx with no redness, swelling, or masses, exudates, or evidence of obstruction, uvula midline. Mucous membranes moist. Neck: Trachea midline, no thyromegaly or masses palpated, and no cervical lymphadenopathy. Supple, full range of motion without nuchal rigidity, or vertebral point tenderness. Chest/axilla: Normal chest wall appearance and motion. Nontender with no deformity. No lesions are appreciated. Cardiovascular: Regular rate and rhythm with a normal S1 and S2. No gallops, murmurs, or rubs. Normal PMI, no JVD. No pulse deficits. Respiratory: Lungs have equal breath sounds bilaterally, clear to auscultation and percussion. No rales, rhonchi or wheezes noted. No increased work of breathing, no retractions or nasal flaring. Abdomen/GI: Soft, with normal bowel sounds. No distension or tympany. No guarding or rebound. No evidence of tenderness throughout. Back: No spinal tenderness. No costovertebral tenderness. Skin: Warm, dry with normal turgor. Normal color with no rashes, no lesions, and no evidence of cellulitis. MS/ Extremity: Pulses equal, no cyanosis. Neurovascular intact. Full, normal range of motion. Neuro: Awake and alert, GCS 15, oriented to person, place, time, and situation. Cranial nerves II-XII grossly intact. Motor strength 5/5 in all extremities. Sensory grossly intact. Psych: Awake, alert, with orientation to person, place and time. Behavior, mood, and affect are within normal limits Vital Signs: 04:15 BP 115 / 74; Pulse 101; Resp 18 S; Temp 97.9; Pulse Ox 100% on R/A; Weight 70.31 kg; ha1 Height 5 ft. 2 in. ; 05:00 BP 117 / 80; Pulse 90; Resp 17 S; Pulse Ox 100% on R/A; ha1 06:00 BP 102 / 73; Pulse 93; Resp 17 S; Pulse Ox 96% on R/A; ha1 09:42 BP 107 / 81; Pulse 99; Resp 18; Pulse Ox 100% on R/A; ld1 04:15 Body Mass Index 28.35 (70.31 kg, 157.48 cm) ha1 [place] Coma Score: 08:31 Eye Response: spontaneous(4). Motor Response: obeys commands(6). Verbal Response: sp4 oriented(5). Total: 15. Procedures: 08:31 I \T\ D: Incision and drainage was performed for an abscess of the left dorsal aspect of sp4 distal phalanx of left index finger - left index finger paronychia Prepped with Betadine, Anesthetized with 4 ml's 1% Lidocaine. Incised with #11 blade. Drained moderate amount purulent fluid. bloody fluid. Dressing: sterile 4x4 gauze, the patient tolerated the procedure well. MDM: 04:28 Patient medically screened. sp4 08:34 Differential diagnosis: DKA, hyperglycemia, hypothyroidism, new onset diabetes. Data sp4 reviewed: vital signs, nurses notes, EMS record, old medical records, lab test result(s). Consideration of Admission/Observation Escalation of care including admission/observation considered. ED course: Paronychia drained patient was hydrated given IV insulin. Administered also Bactrim p.o.. . 08:34 Transition of care: After a detail discussion of the patient's case, care is sp4 transferred to Isai Narayanan MD. 10:10 ED course: Patient with continued improvement of electrolytes and anion gap now closed. rn Patient still slightly hyperglycemic. Offered admission to patient since she is still borderline but she is insistent that she goes home. States has insulin and wants to go home, declines admission. Understands risks and benefits.. 03/02 04:28 Order name: Basic Metabolic Panel; Complete Time: 06:45 sp4 03/02 04:28 Order name: CBC with Diff; Complete Time: 06:45 sp4 03/02 04:28 Order name: LFT's; Complete Time: 06:45 sp4 03/02 04:28 Order name: Magnesium; Complete Time: 06:45 sp4 03/02 04:28 Order name: Glucose, Ancillary Testing; Complete Time: 06:45 EDMS 03/02 04:30 Order name: Urinalysis W/Microscopic; Complete Time: 06:45 sp4 03/02 04:30 Order name: Urine Drug Screen; Complete Time: 06:45 sp4 03/02 04:30 Order name: Test, Urine; Complete Time: 06:45 sp4 03/02 04:30 Order name: Lactate w/ 2H reflex if indic.; Complete Time: 06:45 sp4 03/02 05:01 Order name: Lipase; Complete Time: 06:45 EDMS 03/02 06:20 Order name: Glucose, Ancillary Testing; Complete Time: 06:45 EDMS 03/02 06:46 Order name: BMP; Complete Time: 09:12 sp4 03/02 04:28 Order name: Cardiac monitoring; Complete Time: 04:30 sp4 03/02 04:28 Order name: IV Saline Lock; Complete Time: 04:30 sp4 03/02 04:28 Order name: Labs collected and sent; Complete Time: 04:30 sp4 03/02 04:28 Order name: O2 Per Protocol; Complete Time: 04:30 sp4 03/02 04:28 Order name: O2 Sat Monitoring; Complete Time: 04:30 sp4 03/02 04:29 Order name: Dressing - Wound; Complete Time: 05:04 sp4 03/02 04:29 Order name: Gloves, Sterile; Complete Time: 05:04 sp4 03/02 04:29 Order name: Setup Suture Tray; Complete Time: 05:04 sp4 Administered Medications: 05:06 Drug: NS 0.9% IV 1000 ml IV at 1 bolus Per protocol; 1000 mL bolus Route: IV; Rate: 1 jw7 bolus; Site: left antecubital; 05:06 Drug: NS 0.9% IV 1000 ml IV at 125 ml/hr continuous Route: IV; Rate: 125 ml/hr; Site: [facility] left antecubital; 05:06 Drug: Insulin Regular Human IVP 10 units IVP once {Co-Signature: ha1 (Fernanda Strange jw7 RN).} Route: IVP; Site: left antecubital; 06:00 Follow up: Response: No adverse reaction; Blood sugar is lowered ha1 05:06 Drug: Trimethoprim-Sulfamethoxazole PO (160 mg-800 mg (DS) 1 tablet PO once Route: PO; jw7 06:00 Follow up: Response: No adverse reaction ha1 05:06 Drug: Rocephin - Rocephin (cefTRIAXone) IVPB 1 grams IVPB once over 30 mins; (mix in 50 jw7 mL NS) Route: IVPB; Infused Over: 30 mins; Site: left antecubital; 05:30 Follow up: Response: No adverse reaction; IV Status: Completed infusion; IV Intake: [id number] 05:06 Drug: Acetaminophen-Codeine PO (300 mg-30 mg) 2 tabs PO once; RASS on ADMIN: Combtv4, jw7 Very Agttd3, Agttd2, Rstlss1, AlertClm0, Drwsy-1, Lt Sdtn-2, Mod Sdtn-3, Dp Sdtn-4, UnArsble-5 Route: PO; 06:10 Follow up: Response: No adverse reaction; Marked relief of symptoms; Pain is decreased ha1 05:06 Drug: Ondansetron IVP 4 mg IVP once; over 2 minutes Route: IVP; Site: left antecubital; jw7 06:00 Follow up: Response: No adverse reaction; Marked relief of symptoms ha1 05:30 Drug: Lidocaine Infiltration (1 %) 20 ml 20 ml Infiltration once; to bedside {Note: ld1 Administered by Dr. Ruvalcaba .} Volume: 20 ml; Route: Infiltration; Disposition Summary: 03/02/24 10:11 Discharge Ordered Notes: Location: Home rn Problem: new rn Symptoms: have improved rn Condition: Stable rn Diagnosis - Diabetes mellitus due to underlying condition with hyperglycemia rn - Diabetes mellitus due to underlying condition with ketoacidosis without coma rn Followup: rn - With: Private Physician - When: As needed - Reason: Recheck today's complaints, Re-evaluation by your physician Discharge Instructions: - Diabetes Mellitus and Sick Day Management rn - Hyperglycemia rn - Blood Glucose Monitoring, Adult rn - Discharge Summary Sheet sp4 - Hyperglycemia, Nrhn-fk-Izsk sp4 - Paronychia, Hzex-sm-Nymj sp4 Forms: - Work release form bd - Medication Reconciliation Form rn - 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 - Prescription Opioid Use rn - Patient Portal Instructions rn - Leadership Thank You Letter rn Prescriptions: - Ibuprofen 600 mg Oral Tablet - take 1 tablet ORAL route every 6 hours As needed take with food; 30 tablet; sp4 Refills: 0, Product Selection Permitted - Bactrim DS 800-160 mg Oral Tablet - take 1 tablet ORAL route every 12 hours for 10 days; 20 tablet; Refills: 0, sp4 Product Selection Permitted Signatures: Dispatcher [employer] EDMS Isai Narayanan MD MD rn Sims, Lauren RN RN ld1 Christina Billy RN RN jw7 Fernanda Strange RN RN ha1 Potepalov, Sergey, MD MD sp4 Fernanda Strange RN ha1 Corrections: (The following items were deleted from the chart) 04:29 04:28 BASIC METABOLIC PANEL+C.LAB.BRZ ordered. EDMS EDMS 04:29 04:28 CBC+H.LAB.BRZ ordered. EDMS EDMS 04: 04:28 HEPATIC FUNCTION+C.LAB.BRZ ordered. EDMS EDMS 04: 04:28 MAGNESIUM+C.LAB.BRZ ordered. EDMS EDMS 04: 04:29 HEMOGLOBIN A1C+CHEM A1C.LAB.BRZ ordered. EDMS EDMS 05:01 04:30 LIPASE+C.LAB.BRZ ordered. EDMS EDMS
[2024-03-02 10:33] VITALS: BP 107/81; TEMP 97.9; O2SAT 100
== END 2024-03-02 10:19 | disposition home or self-care (01) ==
LOC: ER 04:11
PROC: 0H9GXZZ Drainage of Left Hand Skin, External Approach (ICD-10-PCS; principal; 2024-03-02)
DX: E11.10 Type 2 diabetes mellitus with ketoacidosis without coma (principal); L03.012 Cellulitis of left finger
CPT/HCPCS: 36415; 80048; 80076; 80307; 81001; 81025; 82947; 83605; 83690; 83735; 85025; 96365; 96375; 99285; J0696; J1815; J2001; J2405; J7030

== ENCOUNTER 2024-07-06 20:14 | Emergency (ER) | payer SELFPAY ==
[2024-07-06] MEDS ORDERED: NA CHLORIDE 0.9% 1,000 ML ONE ×2 (20:45→21:29)
[2024-07-06 20:58] LABS: Absolute Eosinophils 0.2 K/uL (0-0.5); Absolute Lymphocytes (CBC) 2.2 K/uL (0.7-4.9); Absolute Monocytes 0.4 K/uL (0.1-1.3); Absolute Neutrophil 3.2 K/uL (1.8-8.0); Basophils % 0.5 % (0-1.3); Eosinophils % 3.8 % (0-4.4); Hematocrit 43.4 % (36.0-45.0); Hemoglobin 14.3 g/dL (12.0-15.0); Lymphocytes % 36.8 % (15.3-44.8); MCH 28.5 pg (27.0-35.0); MCV 86.3 fL (80-100); MPV 7.6 fL (7.6-11.3); Monocytes % 6.1 % (3.3-12.3); Neutrophils % 52.8 % (41.7-73.7); Platelets 359 thou/uL (152-406); RBC Red Blood Cell Count 5.03 M/uL (3.86-4.86); Red Cell Distribution Width 12.9 % (12.1-15.2)
[2024-07-06 21:09] LABS: Specific Gravity > 1.030 (1.005-1.030); Urine Bilirubin NEGATIVE (Negative); Urine Blood Negative (Negative); Urine Clarity Clear (Clear); Urine Color Colorless (Yellow); Urine Glucose 4+ (Over) (Negative); Urine Ketones 2+ (Negative); Urine Microscopic Reflex YN NO UMIC; Urine Nitrite NEGATIVE (Negative); Urine Protein NEGATIVE (Negative); Urine Urobilinogen Normal (Normal); Urine pH 6.5 (5.0-7.0)
[2024-07-06 21:11] LABS: Specific Gravity > 1.030 (1.005-1.030)
[2024-07-06 21:12] LABS: ALT/SGPT 17 U/L (13-56); AST/SGOT < 10 U/L (15-37); Albumin 3.5 g/dL (3.4-5.0); Albumin/Globulin Ratio 0.9 (1.1-1.8); Alkaline Phosphatase 102 U/L (45-117); Anion Gap 10.9 mEq/L (5.0-15.0); BETA HYDROXYBUTYRATE 1.43 mmol/L (0.02-0.27); BUN Blood Urea Nitrogen 18 mg/dL (7-18); Bicarbonate 25 mEq/L (21-32); Bilirubin Total 0.4 mg/dL (0.2-1.0); Glomerular Filtration Rate 83 ml/min (=/>90); Potassium 3.9 mEq/L (3.5-5.1); Protein, Total 7.5 g/dL (6.4-8.2); Sodium Level 128 mEq/L (136-145)
[2024-07-06 21:14] LABS: Glucose Level 609 mg/dL (74-106)
[2024-07-06] MEDS ORDERED: INSULIN REGULAR (HUMAN) 100 UNIT/ML ONE (21:28)
[2024-07-06 21:51] LABS: Arterial Blood Carboxyhemoglob 0.6 % (0-1.5); Blood Gas Oxyhemoglobin 35.3 % (94-97); Blood Gas THB 12.9 g/dl (12-18); Blood O2 Saturation 36.2 % (92-98.5)
[2024-07-06] MEDS ORDERED: ACETAMINOPHEN 500 MG TAB ONE (22:30)
--- NOTE | 2024-07-07 00:14 | ER ---
Nurse's Notes [facility] Name: Rosalie Parekh Age: 29 yrs Sex: Female : 1995 Arrival Date: 07/06/2024 Time: 20:14 Bed 2 Private MD: Diagnosis: Hyperglycemia, unspecified Presentation: 07/06 20:22 Chief complaint: Patient states: high blood sugar x 2-3 days ("HI" in triage), me1 dizziness and generalized weakness, [place] and "feel shaky". Coronavirus screen: Vaccine status: Patient reports being unvaccinated. Ebola Screen: No symptoms or risks identified at this time. Initial Sepsis Screen: Does the patient meet any 2 criteria? No. Patient's initial sepsis screen is negative. Does the patient have a suspected source of infection? No. Patient's initial sepsis screen is negative. Risk Assessment: Do you want to hurt yourself or someone else? Patient reports no desire to harm self or others. Onset of symptoms was July 04, 2024. 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 - Infectious Disease History:: Denies. - Social history:: Smoking status: Reported history of juuling and/or vaping. Screenin:41 [facility] ED Fall Risk Assessment (Adult) History of falling in the last 3 months, tm6 including since admission No falls in past 3 months (0 pts) Confusion or Disorientation No (0 pts) Intoxicated or Sedated No (0 pts) Impaired Gait No (0 pts) Mobility Assist Device Used No (0 pt) Altered Elimination No (0 pt) Score/Fall Risk Level 0 - 2 = Low Risk Oriented to surroundings, Maintained a safe environment, Educated pt \\T\\ family on fall prevention, incl call for assistance when getting out of bed. Abuse screen: Denies threats or abuse. Denies injuries from another. Nutritional screening: No deficits noted. Tuberculosis screening: No symptoms or risk factors identified. Assessment: 20:41 General: Appears in no apparent distress. Behavior is calm, cooperative. Pain: Denies tm6 pain. Neuro: Level of Consciousness is awake, alert, obeys commands, Oriented to person, place, time, situation. Cardiovascular: Patient's skin is warm and dry. Respiratory: Airway is patent Respiratory effort is even, unlabored, Respiratory pattern is regular, symmetrical. GI: No signs and/or symptoms were reported involving the gastrointestinal system. Abdomen is flat, non-distended. : No signs and/or symptoms were reported regarding the genitourinary system. EENT: No signs and/or symptoms were reported regarding the EENT system. Derm: No signs and/or symptoms reported regarding the dermatologic system. Musculoskeletal: No signs and/or symptoms reported regarding the musculoskeletal system. Vital Signs: 20:22 BP 151 / 89; Pulse 120; Resp 16; Temp 97.8; Pulse Ox 99% ; Weight 65.77 kg; Height 5 me1 ft. 2 in. ; Pain 9/10; 21:30 BP 115 / 83; Pulse 107; Resp 18; Pulse Ox 100% on R/A; pc2 20:22 Body Mass Index 26.52 (65.77 kg, 157.48 cm) me1 20:22 Pain Scale: Adult mi1 ED Course: 20:16 Patient arrived in ED. jj6 20:20 [facility]ab[facility] Alman[facility]C [facility] kb 20:20 Ralph Silva MD is Attending Physician. kb 20:24 Triage completed. me1 20:24 Arm band placed on. me1 20:41 CMP Sent. tm6 20:41 CBC with Diff Sent. tm6 20:41 Inserted saline lock: 20 gauge in left antecubital area, using aseptic technique. Blood tm6 collected. Flushed with 10 mL NS. 20:54 Urinalysis w/ reflexes Sent. tm6 20:54 Test, Urine Sent. tm6 21:43 No provider procedures requiring assistance completed. pc2 21:43 Initial lab(s) drawn, by , VBG. pc2 21:44 Patient has correct armband on for positive identification. Bed in low position. Call pc2 light in reach. Side rails up X2. Provided Education on: POC and time frame. 22:43 Lucinda Prater, RN is Primary Nurse. pc2 22:43 ABG Sent. pc2 Administered Medications: 20:54 Drug: NS 0.9% IV 1000 ml IV at 1000 ml once Route: IV; Rate: 1000 ml; Site: left tm6 antecubital; 21:30 Follow up: Response: No adverse reaction; IV Status: Completed infusion; IV Intake: pc2 1000ml 21:27 Drug: Insulin Regular Human IVP 10 units IVP once {Co-Signature: tm6 (Bhumi Colvin pc2 RN).} Route: IVP; Site: left antecubital; 22:00 Follow up: Response: No adverse reaction; Blood sugar is lowered pc2 21:30 Drug: NS 0.9% IV 1000 ml IV at 1000 ml once Route: IV; Rate: 1000 ml; Site: right pc2 antecubital; 22:00 Follow up: Response: No adverse reaction; IV Status: Completed infusion; IV Intake: pc2 1000ml 22:31 Drug: Acetaminophen PO 1000 mg PO once Route: PO; pc2 23:00 Follow up: Response: No adverse reaction; Marked relief of symptoms pc2 Medication: 21:44 VIS not applicable for this client. pc2 Intake: 21:30 IV: 1000ml; Total: 1000ml. pc2 22:00 IV: 1000ml; Total: 2000ml. pc2 Outcome: 07/07 00:13 Discharge ordered by MD. richardson 00:27 Discharged to home ambulatory, jb4 00:27 Condition: stable 00:27 Discharge instructions given to patient, Instructed on discharge instructions, follow up and referral plans. Demonstrated understanding of instructions, follow-up care, 00:27 Patient left the ED. jb4 Signatures: Zabrina Almanza FNP-C FNP-Estrada Ahmadi RN RN jb4 Lucia Valerio jj6 Rosana Brown, RN RN me1 Bhumi Colvin, RN RN tm6 Lucinda Prater, RN RN pc2 Bhumi Colvin RN tm6
--- NOTE | 2024-07-07 00:15 | EDPHYS ---
Physician Documentation [facility] Name: Rosalie Parekh Age: 29 yrs Sex: Female : 1995 Arrival Date: 07/06/2024 Time: 20:14 Bed 2 Private MD: KAVON Physician Ralph Silva HPI: 07/07 00:12 This 29 yrs old Female presents to ER via Ambulatory with complaints of High Blood kb Sugar, Dizziness, TYPE I DM. 00:12 Pt is a 29 year old female who presents for high blood sugar, headaches, shakiness for kb 3 days. Denies nausea, vomiting, abd pain. States this doesn't feel like DKA. 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 - Infectious Disease History:: Denies. - Social history:: Smoking status: Reported history of juuling and/or vaping. ROS: 07/07 00:12 Constitutional: As per HPI kb Exam: 00:12 Constitutional: This is a well developed, well nourished patient who is awake, alert, kb and in no acute distress. Head/Face: Normocephalic, atraumatic. ENT: Moist Mucous membranes Cardiovascular: Regular rate Respiratory: Respirations even and unlabored. No increased work of breathing. Talking in full sentences Abdomen/GI: Soft, non-tender. No distention Skin: Warm, dry with normal turgor. Normal color. MS/ Extremity: Pulses equal, no cyanosis. Neurovascular intact. Full, normal range of motion. Neuro: Awake and alert, GCS 15, oriented to person, place, time, and situation. Moves all extremities. Normal gait. Vital Signs: 07/06 20:22 BP 151 / 89; Pulse 120; Resp 16; Temp 97.8; Pulse Ox 99% ; Weight 65.77 kg; Height 5 me1 ft. 2 in. ; Pain 9/10; 21:30 BP 115 / 83; Pulse 107; Resp 18; Pulse Ox 100% on R/A; pc2 20:22 Body Mass Index 26.52 (65.77 kg, 157.48 cm) me1 20:22 Pain Scale: Adult me1 MDM: 20:20 Patient medically screened. kb 07/07 00:11 Differential diagnosis: DKA, hyperglycemia. Data reviewed: vital signs, nurses notes. kb Consideration of Admission/Observation Escalation of care including admission/observation considered. admission considered, but pt is feeling better after treatment, no GAP, states she would like to go home if she could. . Management of patient was discussed with the following: Dr Orozco, hospitalist, and Dr Silva. Counseling: I had a detailed discussion with the patient and/or guardian regarding the historical points, exam findings, and any diagnostic results supporting the discharge/admit diagnosis, lab results, the need for outpatient follow up, a family practitioner, to return to the emergency department if symptoms worsen or persist or if there are any questions or concerns that arise at home. ED course: Pt educated on strict return precautions. . 07/06 20:23 Order name: CBC with Diff; Complete Time: 21:04 kb 07/06 20:23 Order name: CMP; Complete Time: 21:19 kb 07/06 20:23 Order name: Test, Urine; Complete Time: 21:13 kb 07/06 20:23 Order name: Urinalysis w/ reflexes; Complete Time: 21:13 kb 07/06 20:23 Order name: BETA HYDROXYBUTYRATE; Complete Time: 21:19 kb 07/06 20:23 Order name: ABG; Complete Time: 23:30 kb 07/06 20:40 Order name: Glucose, Ancillary Testing; Complete Time: 20:43 EDMS 07/07 00:13 Order name: Glucose, Ancillary Testing; Complete Time: 00:14 EDMS 07/06 20:23 Order name: IV Start; Complete Time: 20:41 kb 07/06 23:37 Order name: Blood Glucose Level kb Administered Medications: 07/06 20:54 Drug: NS 0.9% IV 1000 ml IV at 1000 ml once Route: IV; Rate: 1000 ml; Site: left 6 antecubital; 21:30 Follow up: Response: No adverse reaction; IV Status: Completed infusion; IV Intake: pc2 1000ml 21:27 Drug: Insulin Regular Human IVP 10 units IVP once {Co-Signature: tm6 (Bhumi Colvin pc2 RN).} Route: IVP; Site: left antecubital; 22:00 Follow up: Response: No adverse reaction; Blood sugar is lowered pc2 21:30 Drug: NS 0.9% IV 1000 ml IV at 1000 ml once Route: IV; Rate: 1000 ml; Site: right pc2 antecubital; 22:00 Follow up: Response: No adverse reaction; IV Status: Completed infusion; IV Intake: pc2 1000ml 22:31 Drug: Acetaminophen PO 1000 mg PO once Route: PO; pc2 23:00 Follow up: Response: No adverse reaction; Marked relief of symptoms pc2 Disposition: 07/07 04:57 Co-signature as Attending Physician, Ralph Silva MD I agree with the assessment and wanda plan of care. Disposition Summary: 07/07/24 00:13 Discharge Ordered Notes: Location: Home kb Condition: Stable kb Diagnosis - Hyperglycemia, unspecified kb Followup: kb - With: Emergency Department - When: As needed - Reason: Worsening of condition Followup: kb - With: Private Physician - When: 2 - 3 days - Reason: Recheck today's complaints, Continuance of care, Re-evaluation by your physician Discharge Instructions: - Discharge Summary Sheet kb - Hyperglycemia, Arln-fi-Dqel kb Forms: - Medication Reconciliation Form kb - Antibiotic Education kb - Prescription Opioid Use kb - Patient Portal Instructions kb - Leadership Thank You Letter kb Signatures: Dispatcher [employer] Zabrina Kelly FNP-C GLUER MACHINE SETUP OPERATOR-Ralph Rojas MD MD cha Eddleman, Michelle, RN RN me1 Bhumi Colvin RN RN tm6 Lucinda Prater RN RN pc2 Bhumi Colvin RN tm6
[2024-07-07 00:36] VITALS: TEMP 97.8
[2024-07-07 00:38] VITALS: BP 115/83; O2SAT 100
== END 2024-07-07 00:27 | disposition home or self-care (01) ==
LOC: ER 20:14
DX: E10.65 Type 1 diabetes mellitus with hyperglycemia (principal)
CPT/HCPCS: 36415; 36600; 80053; 81003; 81025; 82010; 82805; 82947; 85025; 96361; 96374; 99284; J7030